=== PATIENT | male | born 1945 | race Caucasian/White ===

== ENCOUNTER 2018-07-02 09:06 | Day surgery (SDC) | payer MEDICARE, SELFPAY ==
[2018-07-02] VITALS (7 sets, daily range): BP systolic 105–142; BP diastolic 58–75; PULSE 57–70; RESP 16; TEMP 36.3–36.5; O2SAT 94–100; BMI 37.8
--- NOTE | 2018-07-02 | COLBX_PTH ---
PATIENT: KERRY VALDES LOC: EN U#:[id number] AGE/SX: 73/M ROOM: RE07/02/[address]: Dr. Pj Bojorquez MD : 1945 BED: DIS: 07/02/2018 SPEC #: [id number] RECD: 07/02/18 13:55 STATUS: KYLE SUBHA #: [id number] YO: 07/02/18 00:[address]: Pj Bojorquez DEPT: SURGICAL PATHOLOGY RECD BY: Thad Brown ENTERED: 07/02/18 13:55 SP TYPE: COLON BX OT DR: Dr. Andre Bojorquez III, MD Tissues: Transverse colon Procedures: Surgery Specimen Level IV HEADER OPERATION: Colonoscopy PRE-OP DIAGNOSIS: Screening, personal history colon polyps TISSUE SUBMITTED: Biopsy of proximal transverse polyp MICROSCOPIC DIAGNOSIS Proximal transverse colon polyp, biopsy: Fragments of tubular adenoma. SJ:debra 07/03/18 MICROSCOPIC DESCRIPTION Slides are reviewed. GROSS DESCRIPTION Received in fixative is one container labeled with the patient's name and designated biopsy of proximal transverse polyp. The specimen consists of two irregular fragments of light luna soft tissue that in aggregate measure 0.8 x 0.4 x 0.1 cm. The specimen is totally submitted in one cassette. / SJ:rg 07/02/18 TC:1 CPT: 38119
--- NOTE | 2018-07-02 09:56 | PCM.HP.STD ---
Problem List (1) Personal history of colonic polyps Status: Acute History of Present Illness Date of Admission: 07/02/18 The patient is a 73 year old M who presents today via our open access program. His last colonoscopy was 1 year ago. He has had several colonoscopy on annual basis. Claims on his first colonoscopy had upwards towards 15 polyps. On his most recent colonoscopy a year ago approximately 5 polyps. He denies bright red blood per rectum or melena. He is fatigued with the bowel prep and not sure he wants to continue to pursue this evaluation in the future. He is willing to proceed today. He states that his abdomen is growling but that he has not had any acute abdominal pain. He denies any chest pain or shortness of breath Past Medical History Past Medical History (Chronic Problems): Chronic Problems Hypertension (Chronic) Allergies No Known Allergies Allergy (Verified 07/01/18 08:56) Home Medications: Ambulatory Orders Medication Instructions Recorded Acetaminophen [Tylenol] 325 mg PO PRN PRN 06/26/17 Amlodipine [Norvasc] 5 mg PO DAILY 06/26/17 Hydrochlorothiazide 12.5 mg PO DAILY 06/26/17 Meclizine HCl [Antivert] 12.5 mg PO DAILY PRN PRN 06/26/17 Ranitidine [Zantac] 150 mg PO TID PRN 06/26/17 Carvedilol [Coreg] 3.125 mg PO BID 07/01/18 Naproxen [Naprosyn] 500 mg PO DAILY PRN PRN 07/01/18 Surgical History: noncontributory Psychiatric History: No pertinent psych hx Smoking Status: Former smoker - *Family History Maternal History Items: No pertinent history Paternal History Items: No pertinent history Review of Systems Constitutional: Denies: Anorexia HEENT: Denies: Difficulty Swallowing Cardiovascular: Denies: Chest Pain Respiratory: Denies: Cough Gastrointestinal: Denies: Abdominal Pain Musculoskeletal: Denies: Arm Pain VTE Information - Inpt Only VTE Present on Admission: No Patient Problems: Active and Suspected Problems Personal history of colonic polyps (Acute) - Physical Exam General: Alert, Oriented x3, Cooperative, No apparent distress Oral: Moist Mucosa Neck: Supple Lungs: Clear to auscultation Cardiovascular: Regular rate, Regular Rhythm Abdomen: Bowel Sounds Present Extremities: No Calf Tenderness Vital Signs Temp Pulse Resp BP Pulse Ox 97.7 F L 70 16 133/64 H 95 07/02/18 09:24 07/02/18 09:24 07/02/18 09:24 07/02/18 09:24 07/02/18 09:24 Oxygen Delivery Method Room Air Weight: 255 lb 15.307 oz Body Mass Index (BMI) 37.8 Assessment/Plan All Active Problems Personal history of colonic polyps (Acute) Near syncope (Acute) Hypokalemia (Acute) Acute kidney injury (Acute) Orthostatic hypotension (Acute) 73-year-old gentleman with personal history of multiple colon polyps. He presents today for colonoscopy with possible biopsy or polypectomy is indicated. He has had an opportunity to ask and have questions answered. We will proceed at his discretion. Primary care physician is Dr. Andre Bojorquez, [facility] Pj Bojorquez M.D., F.A.C.S.
--- NOTE | 2018-07-02 10:33 | OP.ENDO_ITS ---
Patient Name: Jc Warner Procedure Date: 07/02/2018 9:51 AM Date of : 1945 Age: 73 Procedure: Colonoscopy Indications: High risk colon cancer surveillance: Personal history of colonic polyps Providers: Pj Bojorquez MD Referring MD: Pj Bojorquez MD Medicines: See the Anesthesia note for documentation of the administered medications Patient Profile: Last Colonoscopy: 2016. Complications: No immediate complications. Procedure: Pre-Anesthesia Assessment: - Prior to the procedure, a History and Physical was performed, and patient medications and allergies were reviewed. The patient's tolerance of previous anesthesia was also reviewed. The risks and benefits of the procedure and the sedation options and risks were discussed with the patient. All questions were answered, and informed consent was obtained. Prior Anticoagulants: The patient has taken no previous anticoagulant or antiplatelet agents. ASA Grade Assessment: II - A patient with mild systemic disease. After reviewing the risks and benefits, the patient was deemed in satisfactory condition to undergo the procedure. After I obtained informed consent, the scope was passed under direct vision. Throughout the procedure, the patient's blood pressure, pulse, and oxygen saturations were monitored continuously. The colonoscope was introduced through the anus and advanced to the cecum, identified by appendiceal orifice and ileocecal valve. The colonoscopy was performed without difficulty. The patient tolerated the procedure well. The quality of the bowel preparation was fair. Scope In: 10:05:25 AM Scope Withdrawal Time 0 hours 14 minutes 33 seconds Scope Out: 10:26:48 AM Total Procedure Duration Time 0 hours 21 minutes 23 seconds Findings: The digital rectal exam findings include non-thrombosed external hemorrhoids, non-thrombosed internal hemorrhoids, internal hemorrhoids that prolapse with straining, but spontaneously regress to the resting position (Grade II) and enlarged prostate. Pertinent negatives include Lax anal tone. Many diverticula were found in the entire colon. A 8 mm polyp was found in the proximal transverse colon. The polyp was sessile. The polyp was removed with a cold biopsy forceps. Resection and retrieval were complete. Impression: - Preparation of the colon was fair. - Non-thrombosed external hemorrhoids, non-thrombosed internal hemorrhoids, internal hemorrhoids that prolapse with straining, but spontaneously regress to the resting position (Grade II) and enlarged prostate found on digital rectal exam. - Diverticulosis in the entire examined colon. - One 8 mm polyp in the proximal transverse colon, removed with a cold biopsy forceps. Resected and retrieved. Recommendation: - Repeat colonoscopy in 3 years for surveillance. - Telephone my office for pathology results in 1 week. - Continue present medications. Procedure Code(s): --- Professional --- 99867, Colonoscopy, flexible; with biopsy, single or multiple CPT copyright 2017 [employer]. All rights reserved. The codes documented in this report are preliminary and upon event sales assistant review may be revised to meet current compliance requirements. Pj Bojorquez MD 07/02/2018 10:33:10 AM This report has been signed electronically. Number of Addenda: 0 Note Initiated On: 07/02/2018 9:51 AM
== END 2018-07-02 11:14 | disposition home or self-care (01) ==
LOC: EN 09:07 → AC 09:09
PROVIDERS: Family Provider Family Medicine; PCP Family Medicine; Visit Provider Surgery
PROC: 0DJD8ZZ Inspection of Lower Intestinal Tract, Via Natural or Artificial Opening Endoscopic (ICD-10-PCS; CPT 45378; principal; 2018-07-02 10:10)
DX: D12.3 Benign neoplasm of transverse colon (principal); N40.0 Benign prostatic hyperplasia without lower urinary tract symptoms; K57.30 Diverticulosis of large intestine without perforation or abscess without bleeding; K64.1 Second degree hemorrhoids; K64.4 Residual hemorrhoidal skin tags; K21.9 Gastro-esophageal reflux disease without esophagitis; Z86.010 Personal history of colon polyps; I10 Essential (primary) hypertension; Z79.899 Other long term (current) drug therapy; Z87.891 Personal history of nicotine dependence
CPT/HCPCS: 45380; 88305; J7120

== ENCOUNTER 2021-04-21 07:50 | Emergency (ER) | payer MEDICARE, SELFPAY ==
[2021-04-21 07:52] VITALS: BP 162/68; PULSE 57; RESP 14; TEMP 36.4; O2SAT 100; BMI 35.2
--- NOTE | 2021-04-21 08:21 | CT_ITS ---
STUDY: CT LUMBAR SPINE WITHOUT CONTRAST REASON FOR EXAM: Male, 75 years old. Back pain RADIATION DOSAGE (If Supplied By Facility): CTDIvol = ( 18.49 ) mGy, DLP = ( 923.77 ) mGycm TECHNIQUE: The patient was scanned in a multi detector CT scanner. High resolution transaxial imaging was performed. Images were obtained from L1 to S1 vertebrae. Sagittal and coronal images were reconstructed. Individualized dose optimization techniques were used for this CT. COMPARISON: None FINDINGS: Normal lumbar lordosis. There is no substantial scoliosis. Normal vertebrae of the lumbar spine. L1-2: Normal endplates. Normal disc height and morphology. Normal bilateral facet joints. Normal central canal and bilateral lateral recesses. Normal bilateral intervertebral neural foramina. L2-3: Schmorl''s node is seen in the superior endplate of the L2 vertebrae. Mild degree of disc space narrowing. Mild degree of diffuse posterior disc bulge causing mild degree of bilateral neural foraminal stenosis. Mild degree of facet joint osteoarthritis and hypertrophy. L3-4: Mild degree of anterior spondylosis. Mild diffuse posterior disc bulge. Facet joint hypertrophy. Mild degree of bilateral neural foraminal stenosis. L4-5: Mild degree of disc space narrowing. Diffuse posterior disc bulge slightly worse on the right side of the midline. This causes mild deformity of the right thecal sac. Facet joint hypertrophy and mild degree of bilateral neural foraminal stenosis. L5-S1: Mild degree of disc space narrowing. Atherosclerotic plaque formation of the abdominal aorta and major visceral branches. CT/Spine Lumbar without Contrast IMPRESSION: Multilevel degenerative changes, as described above. Electronically Signed: Bhaskar Dyson MD at 9:20 EDT , Service support ,
--- NOTE | 2021-04-21 08:22 | CT_ITS ---
STUDY: CT ABDOMEN AND PELVIS WITHOUT CONTRAST REASON FOR EXAM: Male, 75 years old. Flank pain RADIATION DOSAGE (If Supplied By Facility): CTDIvol = ( 18.49 ) mGy, DLP = ( 923.77 ) mGycm TECHNIQUE: Transaxial images were obtained from the dome of the diaphragm to the symphysis pubis without oral contrast, and without intravenous contrast. Sagittal and coronal images were reconstructed. Individualized dose optimization techniques were used for this CT. COMPARISON: None. FINDINGS: 1.5 mm noncalcified nodule in the anterior lateral aspect of the right lower lobe abutting the right major fissure. This is seen in the axial image #10. Coronary artery calcification. Normal liver. Normal gallbladder and extrahepatic biliary system. Normal spleen. Normal pancreas. Normal bilateral adrenal glands. There is a 2 cm x 2.8 cm cyst in the lateral upper aspect of the right kidney. Punctate calculus in the lower pole calyx of the right kidney. Normal left kidney. Normal visualized stomach. Normal small intestine. There are multiple colonic diverticula consistent with diverticulosis. The appendix is visualized and appears normal. There is diffuse atherosclerotic calcification of the abdominal aorta and its major visceral branches, without a demonstrated aneurysm. Stenotic plaque formation at the origin of the superior mesenteric artery as well as both renal arteries. Normal inferior vena cava. There is borderline retroperitoneal lymphadenopathy with enlarged nodes no greater than 10mm in the short axis diameter. Normal urinary bladder. Small bilateral inguinal hernias containing fat more prominent on the left side. There are mild degenerative changes of the visualized lumbar spine. CT/Abdomen/Pelvis without Cont IMPRESSION: Right renal cyst. Extensive atherosclerotic plaque formation of the aorta and major vessels. Bilateral inguinal hernias worse on the left side. Electronically Signed: Bhaskar Dyson MD at 9:16 EDT , Service support ,
--- NOTE | 2021-04-21 08:30 | EX.ED.DYSGE1 ---
HPI History of Present Illness Chief Complaint: Back Narrative Narrative: Patient presents with right leg pain and buttock pain, he was recently seen at an urgent care and was diagnosed with sciatica but was not given any medications. He can ambulate but it is quite difficult. He has no abdominal pain but he has some flank pain. He has no dysuria hematuria or testicular pain. He tells me the pain is more intense when he ambulates or tries to ambulate [facility] Medical History (Updated 04/21/21 @ 10:[address] Richmond Alejo MD) Back pain Hypertension Home Medications Ranitidine [Zantac] 150 mg PO TID PRN 06/26/17 [History Last Taken 06/29/17 06:15 150 MG] acetaminophen [Tylenol] 325 mg PO PRN PRN 06/26/17 [History Last Taken Unknown] amlodipine 5 mg PO DAILY 06/26/17 [History Last Taken 07/02/18 08:00] hydrochlorothiazide 12.5 mg PO DAILY 06/26/17 [History Last Taken Unknown] meclizine 12.5 mg PO DAILY PRN PRN 06/26/17 [History Last Taken Unknown] carvedilol 3.125 mg PO BID 07/01/18 [History Last Taken Unknown] naproxen 500 mg PO DAILY PRN PRN 07/01/18 [History Last Taken Unknown] oxycodone-acetaminophen [Percocet] 1 tab PO Q8H PRN 3 Days #12 tab 04/21/21 [Rx Last Taken Unknown] prednisone 60 mg PO DAILY #15 tab 04/21/21 [Rx Last Taken Unknown] Allergy/AdvReac Type Severity Reaction Status Date / Time No Known Allergies Allergy Verified 04/21/21 07:56 Social History Smoking Status: Never smoker ROS ROS ED ROS Narrative Past medical history: Reviewed, includes hypertension, history of renal insufficiency, otherwise unremarkable. Medications: Reviewed Social history: Noncontributory Review of systems: All systems negative except as indicated General: No fever Eyes: No visual changes ENT: No upper airway congestion, normal voice Neck: No neck pain Cardiovascular: No chest pain Respiratory: No shortness of breath or cough Gastrointestinal: No abdominal pain, nausea vomiting or diarrhea Genitourinary: No dysuria, no urinary retention symptoms Back: Back and buttock pain as in HPI Musculoskeletal: The pain does radiate to the right posterior leg. Skin: No rash Neurological: No memory loss, confusion or any focal weakness Psych: No recent behavioral changes Hematologic: No easy bleeding or easy bruising EXAM Physical Exam Const Vital Signs: 04/21/21 07:52 Temperature 97.6 F L Temperature Source Temporal Pulse Rate 57 L Respiratory Rate 14 Blood Pressure 162/68 H Blood Pressure Mean 99 Pulse Ox 100 Oxygen Delivery Method Room Air MDM MDM MDM Narrative Medical decision making narrative: Patient has a normal work-up, he does have DJD but his symptoms are mostly sciatica. I given analgesia and he improved. I believe it is reasonable to start him on steroids and given analgesia for home. He wants to be discharged. If anything changes he is to return. Lab Data Labs: Laboratory Results - last 24 hr 04/21/21 04/21/21 04/21/21 07:45 07:45 08:39 WBC 5.9 RBC 3.69 L Hgb 11.7 L Hct 35.4 L MCV 95.9 H MCH 31.7 MCHC 33.1 RDW Std Deviation 47.7 H RDW Coeff of Sophie 13.4 Plt Count 210 MPV 9.6 Immature Gran % (Auto) 0.200 Neut % (Auto) 59.5 Lymph % (Auto) 26.5 [place] % (Auto) 8.2 Eos % (Auto) 4.9 Baso % (Auto) 0.7 Absolute Neuts (auto) 3.5 Absolute Lymphs (auto) 1.55 Nucleated RBC % 0 Sodium 141 Potassium 4.1 Chloride 109 H Carbon Dioxide 29.0 Anion Gap 3 L BUN 33 H Creatinine 1.49 H Estim Creat Clear Calc 42.18 Est GFR (MDRD) Af Amer 59 L Est GFR (MDRD) Non-Af 49 L BUN/Creatinine Ratio 22.1 H Glucose 121 H Calcium 8.2 L Total Bilirubin 0.30 AST 16 ALT 26 Alkaline Phosphatase 78 Total Protein 7.0 Albumin 3.5 Globulin 3.5 Albumin/Globulin Ratio 1.0 Urine Color Yellow Urine Clarity Clear Urine pH 6.5 Ur Specific [place] 1.015 Urine Protein 15 H Urine Glucose (UA) Normal Urine Ketones Negative Urine Occult Blood Negative Urine Nitrite Negative Urine Bilirubin Negative Urine Urobilinogen Normal Ur Leukocyte Esterase Negative Urine RBC 0 SEEN Urine WBC 0 SEEN Ur Squamous Epith Cells 0 SEEN Urine Bacteria RARE Urine Mucus 0 SEEN Radiography Diagnostic Testing: Radiology Impression Lumbar Spine CT 04/21/21 08:21 IMPRESSION: Multilevel degenerative changes, as described above. Electronically Signed: Bhaskar Dyson MD at 9:20 EDT , Service support , Abdomen/Pelvis CT 04/21/21 08:22 IMPRESSION: Right renal cyst. Extensive atherosclerotic plaque formation of the aorta and major vessels. Bilateral inguinal hernias worse on the left side. Electronically Signed: Bhaskar Dyson MD at 9:16 EDT , Service support , Discharge Plan Triage Chief Complaint: Back ED Provider: Richmond Alejo Dx/Rx/DC Orders Clinical Impression: Sciatica Instructions: ED Sciatica Prescriptions: New oxycodone-acetaminophen [Percocet] 5-325 mg tablet 1 tab PO Q8H PRN (Reason: pain) 3 Days Qty: 12 RF: 0 prednisone 20 mg tablet 60 mg PO DAILY Qty: 15 RF: 0 No Action acetaminophen [Tylenol] 325 MG tablet 325 mg PO PRN PRN (Reason: Pain) RF: 0 meclizine 12.5 MG tablet 12.5 mg PO DAILY PRN PRN (Reason: Dizziness) RF: 0 amlodipine 5 MG tablet 5 mg PO DAILY RF: 0 hydrochlorothiazide 12.5 MG capsule 12.5 mg PO DAILY RF: 0 Ranitidine [Zantac] 150 MG tablet 150 mg PO TID PRN (Reason: GERD) RF: 0 carvedilol 3.125 MG tablet 3.125 mg PO BID RF: 0 naproxen 500 MG tablet 500 mg PO DAILY PRN PRN (Reason: Pain) RF: 0 Primary Care Provider: Jasson England Referrals: Jasson England MD [Primary Care Provider] - 3-5 Days Disposition Disposition: Home, Self Care
[2021-04-21] MEDS: Morphine 4 MG/ML Syringe IV (08:39)
[2021-04-21] MEDS: Ondansetron 4 MG/2 ML Vial IV (08:39)
[2021-04-21 08:43] LABS: Absolute Lymphocyte Count 1.55 X10^3/uL (0.83-4.51); Absolute Neutrophil Count 3.5 X10^3/uL (2.0-7.7); Basophil# 0.04 X10^3/uL; Basophil% 0.7 % (0-1); Eosinophil# 0.29 X10^3/uL; Eosinophils% 4.9 % (0-5); Hematocrit 35.4 % (40-54); Hemoglobin 11.7 g/dL (13.0-16.5); Lymphocyte # 1.55 X10^3/ul (0.83-4.51); Lymphocyte % 26.5 % (19-41); Mean Corp Hgb Conc 33.1 g/dL (32-36); Mean Corpuscular Hgb 31.7 pg (27.0-32.0); Mean Corpuscular Volume 95.9 fL (80-94); Mean Platelet Vol. 9.6 fl (6.2-12.0); Monocyte# 0.48 X10^3/uL; Monocyte% 8.2 % (0-10); NRBC Flagged by Analyzer 0 % (0-5); Neutrophil # 3.49 X10^3/uL (2.7-7.7); Neutrophil % 59.5 % (47-70); Platelet Count 210 K/mm3 (150-450); RBC Distribution Width CV 13.4 % (11.6-14.6); RBC Distribution Width SD 47.7 fl (35.1-43.9); Red Blood Count 3.69 M/mm3 (4.6-6.2); White Blood Count 5.9 K/mm3 (4.4-11.0)
[2021-04-21 08:46] LABS: Mucous, Urine 0 SEEN /hpf (<or=2+); Red Blood Cells-Urine 0 SEEN /hpf (0-5); Squamous Epithelial Cells - UA 0 SEEN /hpf (0-5); White Blood Cells 0 SEEN /hpf (0-5)
[2021-04-21 08:47] LABS: Color, Urine Yellow (Yellow); Glucose, Dipstick Normal (Normal); Ketone-Dipstick Negative (Negative); Leukocyte Esterase-Dipstick Negative /ul (Negative); Nitrite-Dipstick Negative (Negative); Occult Blood-Urine Negative /ul (Negative); Protein-Dipstick 15 mg/dl (Negative); Specific Gravity, Urine 1.015 (1.002-1.030); Urine Bilirubin Dipstick Negative (Negative); Urine Clarity Clear (Clear); Urine Urobilinogen Normal (Normal); Urine pH 6.5 (5.0 - 8.0)
[2021-04-21 08:53] LABS: AST(SGOT) 16 U/L (15-37); Alanine Aminotransfer ALT/SGPT 26 U/L (16-61); Albumin, Serum 3.5 g/dL (3.2-5.0); Alkaline Phosphatase 78 U/L (45-117); Anion Gap 3 (5-15); BUN 33 mg/dL (7-18); BUN/Creat Ratio 22.1 RATIO (10-20); Calcium,Total 8.2 mg/dL (8.5-10.1); Chloride 109 mmol/L (98-107); Creatinine, Serum 1.49 mg/dL (0.70-1.30); EST Glomerular Filtration Rate 49 mL/min (>60); Est Glom Filt Rate - Afr Amer 59 mL/min (>60); Estimated Creatinine Clearance 42.18 ml/min; Globulin 3.5 g/dL (2.2-4.2); Glucose 121 mg/dL (74-106); Potassium 4.1 mmol/L (3.5-5.1); Sodium Level 141 mmol/L (136-145)
[2021-04-21 09:03] LABS: Bacteria RARE /hpf (None Seen)
[2021-04-21 10:40] VITALS: BP 187/71; PULSE 55; RESP 12; O2SAT 98
== END 2021-04-21 11:04 | disposition home or self-care (01) ==
PROVIDERS: Emergency Provider Emergency Medicine; PCP Family Medicine
DX: M54.30 Sciatica, unspecified side (principal)
CPT/HCPCS: 72131; 74176; 80053; 81001; 85025; 96374; 96375; 99285; A4216; J2405

== ENCOUNTER 2021-05-04 13:46 | Inpatient (IN) | payer MEDICARE, SELFPAY ==
[2021-05-04] VITALS (16 sets, daily range): BP systolic 111–204; BP diastolic 54–106; PULSE 60–96; RESP 13–26; TEMP 36.6–36.9; O2SAT 95–100; BMI 35.4; BMI 33.5
--- NOTE | 2021-05-04 13:59 | EKG12_ITS ---
Test Reason : ALT LOC Blood Pressure : / mmHG Vent. Rate : 063 BPM Atrial Rate : 063 BPM P-R Int : 274 ms QRS Dur : 096 ms QT Int : 418 ms P-R-T Axes : 081 004 048 degrees QTc Int : 427 ms Sinus rhythm with 1st degree A-V block Nonspecific ST abnormality Abnormal ECG Confirmed by PRITI DUMONT, RASHEED ([id number]), editor magazine VAUGHN KENT ([id number]) on 05/09/2021 9:47:40 AM Referred By: CHENG Confirmed By:RASHEED MARCOS MD
--- NOTE | 2021-05-04 14:01 | CT_ITS ---
STUDY: CT BRAIN WITHOUT CONTRAST REASON FOR EXAM: Male, 75 years old. Syncope RADIATION DOSAGE (If Supplied By Facility): CTDIvol = ( 38.43 ) mGy, DLP = ( 727.10 ) mGycm TECHNIQUE: Transaxial CT imaging of the brain was performed without administration of intravenous contrast material. Individualized dose optimization techniques were used for this CT. COMPARISON: No relevant priors. FINDINGS: Normal soft tissue structures. Normal calvarium. Normal size ventricles and extra-axial spaces for the patient''s age. Normal white matter tracts of the cerebral hemispheres. Normal basal ganglia and thalami. Normal brainstem. Normal cerebellum. There is no intracranial hemorrhage. There are no findings of an acute ischemic infarction. Normal visualized paranasal sinuses. CT/Brain/Head without Contrast IMPRESSION: Normal unenhanced CT scan of the brain. Electronically Signed: Diogo Hendricks MD at 14:53 EDT Tel , Service support ,
[2021-05-04 14:10] LABS: Absolute Lymphocyte Count 1.78 X10^3/uL (0.83-4.51); Absolute Neutrophil Count 8.3 X10^3/uL (2.0-7.7); Basophil# 0.02 X10^3/uL; Basophil% 0.2 % (0-1); Eosinophil# 0.13 X10^3/uL; Eosinophils% 1.2 % (0-5); Hematocrit 38.1 % (40-54); Hemoglobin 12.3 g/dL (13.0-16.5); Lymphocyte # 1.78 X10^3/ul (0.83-4.51); Lymphocyte % 16.3 % (19-41); Mean Corp Hgb Conc 32.3 g/dL (32-36); Mean Corpuscular Hgb 31.5 pg (27.0-32.0); Mean Corpuscular Volume 97.7 fL (80-94); Mean Platelet Vol. 9.7 fl (6.2-12.0); Monocyte% 6.4 % (0-10); NRBC Flagged by Analyzer 0 % (0-5); Neutrophil # 8.26 X10^3/uL (2.7-7.7); Neutrophil % 75.4 % (47-70); Platelet Count 193 K/mm3 (150-450); RBC Distribution Width CV 13.6 % (11.6-14.6); RBC Distribution Width SD 48.4 fl (35.1-43.9)
[2021-05-04] MEDS: Acetaminophen 500 MG Tablet 1000 MG PO (14:17)
[2021-05-04 14:25] LABS: ALB/GLOB Ratio 1.1 RATIO (0.9-2.4); AST(SGOT) 16 U/L (15-37); Alanine Aminotransfer ALT/SGPT 31 U/L (16-61); Albumin, Serum 3.7 g/dL (3.2-5.0); Alkaline Phosphatase 62 U/L (45-117); Anion Gap 7 (5-15); BUN 31 mg/dL (7-18); BUN/Creat Ratio 21.5 RATIO (10-20); Calcium,Total 8.7 mg/dL (8.5-10.1); Chloride 102 mmol/L (98-107); Creatinine, Serum 1.44 mg/dL (0.70-1.30); EST Glomerular Filtration Rate 51 mL/min (>60); Est Glom Filt Rate - Afr Amer 61 mL/min (>60); Estimated Creatinine Clearance 43.64 ml/min; Globulin 3.4 g/dL (2.2-4.2); Glucose 101 mg/dL (74-106); Potassium 4.2 mmol/L (3.5-5.1); Protein, Total 7.1 g/dL (6.4-8.2); Sodium Level 136 mmol/L (136-145); Troponin-I HS 9.3 pg/mL (3.0-78.5)
[2021-05-04 15:22] LABS: Bacteria 0 SEEN /hpf (None Seen); Mucous, Urine 0 SEEN /hpf (<or=2+); Red Blood Cells-Urine 0 SEEN /hpf (0-5); Squamous Epithelial Cells - UA 0 SEEN /hpf (0-5); White Blood Cells 0 SEEN /hpf (0-5)
--- NOTE | 2021-05-04 15:25 | EX.ED.DYSGE1 ---
HPI History of Present Illness Chief Complaint: Alt LOC Informant: patient and EMS Onset/Context/Timing Onset: Today Context: Sudden Onset Timing: Intermittent Quality: Weakness, lightheaded Location: Generalized Worsened by: Nothing Relieved by: Nothing Narrative Narrative: Patient presents with altered mental status that occurred today. Patient remembers sitting on the chair and then remembers people standing over him. EMS reports that the family started CPR because the patient stopped breathing. Upon EMS arrival, they were able to palpate a pulse so CPR was discontinued. Patient denies any lightheadedness or dizziness. Patient denies any chest pain or shortness of breath. Family is concerned that the patient may be taking too many of his Flexeril and opiate analgesics. Patient has a history of sciatica. Patient denies any bowel or bladder changes. Patient denies any saddle anesthesia. Upon further discussion with the family after they arrived in the emergency department, they reported that the patient has been having some visual hallucinations where he is seeing people in his house. Family states that the patient's lives in [place] [facility] at the present time but her medications are still at home. Family does not know if the patient has been taking any of his 's medications. [facility] Medical History Back pain Hypertension Home Medications amlodipine 10 mg PO DAILY 06/26/17 [History Last Taken 07/02/18 08:00] hydrochlorothiazide 12.5 mg PO DAILY 06/26/17 [History Last Taken Unknown] carvedilol 9.375 mg PO BID 07/01/18 [History Last Taken Unknown] oxycodone-acetaminophen [Percocet] 1 tab PO Q8H PRN 3 Days #12 tab 04/21/21 [Rx Last Taken Unknown] atorvastatin 10 mg PO QHS 05/04/21 [History Last Taken Unknown] cyclobenzaprine 10 mg PO TID PRN 05/04/21 [History Last Taken Unknown] prednisone See Taper PO DAILY 05/04/21 [History Last Taken Unknown] Allergy/AdvReac Type Severity Reaction Status Date / Time No Known Allergies Allergy Verified 05/04/21 13:52 Social History Smoking Status: Never smoker ROS ROS ED Constitutional Constitutional ED: Denies chills or fever(s) Eyes Eyes: Denies blurry vision or change in vision ENT ENT ED: Denies rhinorrhea or sore throat Cardiovascular Cardiovascular: Denies chest pain or palpitations Respiratory/Chest Respiratory/Chest: Denies cough or dyspnea Gastrointestinal Gastrointestinal: Denies nausea or vomiting Genitourinary Genitourinary ED: Denies dysuria or hematuria Musculoskeletal Musculoskeletal: Reports back pain; Denies neck pain Integumentary Denies abscess or rash Neurologic Neurologic: Denies headache(s) or weakness Allergic/Immunologic Allergic/Immunologic ED: Denies mouth swelling or urticaria EXAM Physical Exam Const Vital Signs: 05/04/21 13:47 05/04/21 13:52 05/04/21 15:14 Temperature 97.9 F 97.9 F Temperature Source Temporal Temporal Pulse Rate 61 61 66 Respiratory Rate 20 H 20 H 19 H Blood Pressure 185/73 H 185/73 H 190/68 H Blood Pressure Mean 110 110 108 Pulse Ox 98 98 Oxygen Delivery Method Room Air Room Air Positive well nourished and well developed General Appearance ED: well developed HEENT Reports moist mucous membranes Neck supple and no JVD Resp normal respiratory effort and clear to auscultation bilaterally Cardio regular rate, regular rhythm and no murmurs GI normal to inspection, nondistended, normoactive bowel sounds and non-tender Palpation: soft Extremity normal to inspection General Extremety ED: Negative for edema or tenderness General Extremity: Negative for edema Neuro oriented x3, CN's II-XII intact bilaterally and no sensory deficits noted Sensorium / Orientation: alert Motor Exam: strength 5/5 throughout Psych mental status grossly normal Skin no rashes or lesions noted MDM MDM MDM Narrative Medical decision making narrative: CBC and comprehensive metabolic profile were obtained. Creatinine was slightly elevated at 1.44 and BUN was 31. The remainder was within normal limits. High-sensitivity troponin was normal at 9.3. Urinalysis does not show any evidence of urinary tract infection. EKG was obtained. On my interpretation, there is a normal sinus rhythm with a first-degree AV block with a rate of 63. There are no acute ST or T wave changes. QRS interval and QT interval were normal. [place] was normal. CT scan of the brain was obtained. There is no acute intracranial abnormality noted. This was interpreted by the radiologist and reviewed by myself. Case was discussed with the hospitalist. He will admit the patient to ICU. Patient and family understand and are agreeable with the plan. All questions were answered. Lab Data Attestation: I reviewed the patient's lab results. Labs: Laboratory Results - last 24 hr 05/04/21 05/04/21 05/04/21 13:55 13:55 15:05 WBC 11.0 RBC 3.90 L Hgb 12.3 L Hct 38.1 L MCV 97.7 H MCH 31.5 MCHC 32.3 RDW Std Deviation 48.4 H RDW Coeff of Sophie 13.6 Plt Count 193 MPV 9.7 Immature Gran % (Auto) 0.500 Neut % (Auto) 75.4 H Lymph % (Auto) 16.3 L [place] % (Auto) 6.4 Eos % (Auto) 1.2 Baso % (Auto) 0.2 Absolute Neuts (auto) 8.3 H Absolute Lymphs (auto) 1.78 Nucleated RBC % 0 Sodium 136 Potassium 4.2 Chloride 102 Carbon Dioxide 27.0 Anion Gap 7 BUN 31 H Creatinine 1.44 H Estim Creat Clear Calc 43.64 Est GFR (MDRD) Af Amer 61 Est GFR (MDRD) Non-Af 51 L BUN/Creatinine Ratio 21.5 H Glucose 101 Calcium 8.7 Total Bilirubin 0.70 AST 16 ALT 31 Alkaline Phosphatase 62 Troponin I High Sens 9.3 Total Protein 7.1 Albumin 3.7 Globulin 3.4 Albumin/Globulin Ratio 1.1 Urine Color Yellow Urine Clarity Clear Urine pH 6.5 Ur Specific [place] 1.010 Urine Protein Negative Urine Glucose (UA) Normal Urine Ketones Negative Urine Occult Blood Negative Urine Nitrite Negative Urine Bilirubin Negative Urine Urobilinogen Normal Ur Leukocyte Esterase Negative Urine RBC 0 SEEN Urine WBC 0 SEEN Ur Squamous Epith Cells 0 SEEN Urine Bacteria 0 SEEN Urine Mucus 0 SEEN Radiography Diagnostic Testing: Radiology Impression Brain CT 05/04/21 14:01 IMPRESSION: Normal unenhanced CT scan of the brain. Electronically Signed: Diogo Hendricks MD at 14:53 EDT Tel , Service support , EKG Initial EKG: Attestation: I personally reviewed and interpreted this EKG as follows: Interpretation: Sinus Rhythm (With first-degree AV block with a rate of 63) and No Acute Injury Pattern Prior EKG tracings: not available for review Treatment and Re-Evaluation Vital Sign Attestation:: Vital signs are reviewed prior to admission. They are stable. Discharge Plan Dx/Rx/DC Orders Clinical Impression: Altered mental status Disposition Disposition: Acute Care Hospital [facility]
[2021-05-04 15:33] LABS: Color, Urine Yellow (Yellow); Glucose, Dipstick Normal (Normal); Ketone-Dipstick Negative (Negative); Leukocyte Esterase-Dipstick Negative /ul (Negative); Nitrite-Dipstick Negative (Negative); Occult Blood-Urine Negative /ul (Negative); Protein-Dipstick Negative (Negative); Urine Bilirubin Dipstick Negative (Negative); Urine Clarity Clear (Clear); Urine Urobilinogen Normal (Normal); Urine pH 6.5 (5.0 - 8.0)
--- NOTE | 2021-05-04 17:29 | PCM.HP.STD ---
HPI - General General Date of Admission: 05/04/21 HPI Narrative KERRY VALDES, is a 75 M who was brought by EMS after they found family members doing CPR on unconscious patient. As per family he was not breathing and the started CPR when the patient woke up. EMS found a pulse. Patient is confused, disoriented and has garbled and incoherent speech therefore history taken from the granddaughter, Lori. As per daughter, he was living alone after his went to half-way. He has been acting not normal, confused since yesterday. Patient further said he took some pills most probably his 's pill which includes prednisone, oxycodone, Flexeril and antihypertensive medication; amount, dose and timing unclear. In the ED, patient still confused but little better. His blood pressure is elevated 190/68, respiratory rate 19, pulse 66/min. Twelve-lead EKG shows sinus rhythm 63 bpm, first-degree AV block, nonspecific ST-T abnormality. EMS EKG similar normal sinus rhythm first-degree block. Prior EKG of October 2014 sinus bradycardia with first-degree block at [address] head does not show acute change. There is no chest x-ray, ER physician ordered the chest x-ray. [facility] Medical History Back pain Hypertension Home Medications Ranitidine [Zantac] 150 mg PO TID PRN 06/26/17 [History Last Taken 06/29/17 06:15 150 MG] acetaminophen [Tylenol] 325 mg PO PRN PRN 06/26/17 [History Last Taken Unknown] amlodipine 5 mg PO DAILY 06/26/17 [History Last Taken 07/02/18 08:00] hydrochlorothiazide 12.5 mg PO DAILY 06/26/17 [History Last Taken Unknown] meclizine 12.5 mg PO DAILY PRN PRN 06/26/17 [History Last Taken Unknown] carvedilol 3.125 mg PO BID 07/01/18 [History Last Taken Unknown] naproxen 500 mg PO DAILY PRN PRN 07/01/18 [History Last Taken Unknown] oxycodone-acetaminophen [Percocet] 1 tab PO Q8H PRN 3 Days #12 tab 04/21/21 [Rx Last Taken Unknown] prednisone 60 mg PO DAILY #15 tab 04/21/21 [Rx Last Taken Unknown] Allergy/AdvReac Type Severity Reaction Status Date / Time No Known Allergies Allergy Verified 05/04/21 13:52 Social History Smoking Status: Never smoker ROS ROS Narrative 12 system ROS are unobtainable as patient is confused, disoriented and incoherent speech As per granddaughter, he did not had vomiting, diarrhea. Patient himself denies chest pain or shortness of breath Vital Signs Vital Signs Vital Signs: 05/04/21 13:47 05/04/21 13:52 05/04/21 15:14 Temperature 97.9 F 97.9 F Temperature Source Temporal Temporal Pulse Rate 61 61 66 Respiratory Rate 20 H 20 H 19 H Blood Pressure 185/73 H 185/73 H 190/68 H Blood Pressure Mean 110 110 108 Pulse Ox 98 98 Oxygen Delivery Method Room Air Room Air 05/04/21 17:20 Temperature 98.2 F Temperature Source Temporal Pulse Rate 64 Respiratory Rate 21 H Blood Pressure 171/69 H Blood Pressure Mean 103 Pulse Ox Oxygen Delivery Method Weight Weight: 240 lb 4.862 oz Body Mass Index (BMI) 35.4 Physical Exam Narrative General: Confused, disoriented, incoherent. Visual hallucinations HEENT: Atraumatic, PERRLA, EOMI, Normocephalic Oral: Oral mucosa dry. No Gingival or Mucosal Lesions/ Ulcerations Neck: Supple, No JVD, Negative Carotid Bruits Lungs: Air entry diminished in bilateral lung bases. No crepitation/rhonchi Cardiovascular: Regular rate, Regular Rhythm, Normal S1, Normal S2, No murmurs Abdomen: Bowel Sounds Present, Soft, Non Tender, Non-Distended : No renal angle tenderness. No suprapubic tenderness. Extremities: Mild bilateral ankle edema, Capillary Refill Less than 3 Seconds Skin: No rashes, No breakdown Musculoskeletal: No Tenderness to Palpation of Joints or Extremities Neurological: Cranial nerves II-XII grossly intact, DTR 2+/4 and Symmetrical, Neuro grossly intact Psych/Mental Status: Confused and disoriented Results Lab / Micro Data Result Diagrams: 05/04/21 13:55 05/04/21 13:55 Labs: Laboratory Results - last 24 hr 05/04/21 13:55: WBC 11.0, RBC 3.90 L, Hgb 12.3 L, Hct 38.1 L, MCV 97.7 H, MCH 31.5, MCHC 32.3, RDW Std Deviation 48.4 H, RDW Coeff of Sophie 13.6, Plt Count 193, MPV 9.7, Immature Gran % (Auto) 0.500, Neut % (Auto) 75.4 H, Lymph % (Auto) 16.3 L, [place] % (Auto) 6.4, Eos % (Auto) 1.2, Baso % (Auto) 0.2, Absolute Neuts (auto) 8.3 H, Absolute Lymphs (auto) 1.78, Nucleated RBC % 0 05/04/21 13:55: Sodium 136, Potassium 4.2, Chloride 102, Carbon Dioxide 27.0, Anion Gap 7, BUN 31 H, Creatinine 1.44 H, Estim Creat Clear Calc 43.64, Est GFR (MDRD) Af Amer 61, Est GFR (MDRD) Non-Af 51 L, BUN/Creatinine Ratio 21.5 H, Glucose 101, Calcium 8.7, Total Bilirubin 0.70, AST 16, ALT 31, Alkaline Phosphatase 62, Troponin I High Sens 9.3, Total Protein 7.1, Albumin 3.7, Globulin 3.4, Albumin/Globulin Ratio 1.1 05/04/21 15:05: Urine Color Yellow, Urine Clarity Clear, Urine pH 6.5, Ur Specific [place] 1.010, Urine Protein Negative, Urine Glucose (UA) Normal, Urine Ketones Negative, Urine Occult Blood Negative, Urine Nitrite Negative, Urine Bilirubin Negative, Urine Urobilinogen Normal, Ur Leukocyte Esterase Negative, Urine RBC 0 SEEN, Urine WBC 0 SEEN, Ur Squamous Epith Cells 0 SEEN, Urine Bacteria 0 SEEN, Urine Mucus 0 SEEN Radiology Impression Brain CT 05/04/21 14:01 IMPRESSION: Normal unenhanced CT scan of the brain. Electronically Signed: Diogo Hendricks MD at 14:53 EDT Tel , Service support , Assessment & Plan Assessment/Plan (1) Altered mental status: QUALIFIERS: Altered mental status type: delirium Qualified Code(s): R41.0 - Disorientation, unspecified PLAN: This is a 75-year-old question gentleman was brought into ER for altered mental status, confusion, delirium, hallucination after drug overdose. 1. Acute encephalopathy most probably toxic secondary to drug overdose/polypharmacy: Patient is being admitted in ICU. Orientation cues. Avoid sedating, benzodiazepines and other medications. IV fluid normal saline. Monitor intake and output. 12-lead EKG shows QTC 427 ms 2. Acute kidney injury or CKD: Creatinine is 1.44. Patient previous creatinine was 1.49 on 04/21/2021 when he came to ER for back pain and was given Percocet 5/325, total 12 tablets and prednisone 20 mg total 15 tablets. IV fluid normal saline. Monitor kidney function electrolytes daily. 3. Chronic back pain: 4. Hypertension: It seems patient is on HCTZ, carvedilol and amlodipine. 5. VT prophylaxis: Heparin 5000 units subcutaneous every 8 hourly. Detailed history about past medical history and medications unclear. Discontinue if platelet count drops less than 50,000 or hemoglobin less than 8 g% Living will/advanced directive/end of life care: This was discussed with patient's granddaughter, Lori patient does have living will or advanced directive as per patient's granddaughter, Lori. 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 After discussion of benefits/risks procedures involved with full code, DNR CC arrest and DNR CC, she said full code and wants all possible resuscitation. She wantS artificial life support including intubation, tube feed, ventilator and/chest compression, central venous catheter, vasopressor and DC shock if needed Total time spent in [id number] encounter in discussion of advanced directive 16 minutes. Charges/Coding Visit Charges Inpatient E&M: 39572 Init Hosp L3 Procedures Hospitalists Procedures: 08173 Advncd Care Plan 30 Min
--- NOTE | 2021-05-04 17:30 | RAD_ITS ---
HISTORY: Syncope EXAMINATION/TECHNIQUE: XR Chest 1 View: Portable upright AP chest x-ray COMPARISON: 10/15/14 FINDINGS: LINES/DEVICES: External pacemaker pad overlies the periphery of the right upper lung field. LUNGS: No consolidation, edema or effusion. No pneumothorax. MEDIASTINUM AND CARDIOVASCULAR STRUCTURES: Stable cardiomegaly. Central airways and mediastinal contour are unremarkable. BONES AND SOFT TISSUES: No acute bony abnormalities. RAD/Chest 1 View (Portable) IMPRESSION: Cardiomegaly without radiographic evidence of acute cardiopulmonary disease. at 1844 Reported and signed by: Cheo Clancy MD Electronically Signed: Cheo Clancy MD at 18:43 EDT Tel , Service support ,
[2021-05-04 18:21] LABS: Acetaminophen (Tylenol) Level 8.1 ug/mL (10.0-30.0)
[2021-05-04] MEDS: 0.9% Normal Saline 1,000 ML 100 ML IV (18:42)
[2021-05-04] MEDS: hydrALAZINE 20 MG/ML Vial 10 MG IV (18:45)
[2021-05-04 19:08] LABS: Magnesium 2.5 mg/dL (1.6-2.6); Troponin-I HS 10.7 pg/mL (3.0-78.5)
[2021-05-04 19:20] LABS: Amphetamine Urine VISTA NEGATIVE (<1000 ng/mL); Barbiturate Urine VISTA NEGATIVE (< 200 ng/mL); Benzodiazepine Urine VISTA NEGATIVE (< 200 ng/mL); Cocaine Urine VISTA NEGATIVE (< 300 ng/mL); Ecstacy Urine VISTA NEGATIVE (< 500 ng/mL); Methadone Urine VISTA NEGATIVE (< 300 ng/mL); PCP Urine VISTA NEGATIVE (< 25 ng/mL); THC Urine VISTA NEGATIVE (< 50 ng/mL); Vista UDS pH Range 7
[2021-05-04] MEDS: Heparin Injection (Vial) 5,000 UNIT/ML VIAL 5000 UNIT SC (22:26)
[2021-05-05] VITALS (17 sets, daily range): BP systolic 114–172; BP diastolic 60–102; PULSE 65–80; RESP 14–22; TEMP 36.5–37.1; O2SAT 94–100
[2021-05-05 02:02] LABS: Absolute Lymphocyte Count 1.43 X10^3/uL (0.83-4.51); Absolute Neutrophil Count 7.7 X10^3/uL (2.0-7.7); Basophil# 0.01 X10^3/uL; Basophil% 0.1 % (0-1); Eosinophil# 0.12 X10^3/uL; Eosinophils% 1.2 % (0-5); Hemoglobin 11.7 g/dL (13.0-16.5); Lymphocyte # 1.43 X10^3/ul (0.83-4.51); Lymphocyte % 14.3 % (19-41); Mean Corp Hgb Conc 32.5 g/dL (32-36); Mean Corpuscular Hgb 31.5 pg (27.0-32.0); Mean Platelet Vol. 10.3 fl (6.2-12.0); Monocyte# 0.67 X10^3/uL; Monocyte% 6.7 % (0-10); NRBC Flagged by Analyzer 0 % (0-5); Neutrophil # 7.67 X10^3/uL (2.7-7.7); Neutrophil % 76.9 % (47-70); Platelet Count 205 K/mm3 (150-450); RBC Distribution Width CV 13.6 % (11.6-14.6); Red Blood Count 3.71 M/mm3 (4.6-6.2)
[2021-05-05 02:22] LABS: Troponin-I HS 12.1 pg/mL (3.0-78.5)
[2021-05-05 02:27] LABS: Anion Gap 5 (5-15); BUN 25 mg/dL (7-18); BUN/Creat Ratio 23.4 RATIO (10-20); Calcium,Total 8.7 mg/dL (8.5-10.1); Chloride 110 mmol/L (98-107); Creatinine, Serum 1.07 mg/dL (0.70-1.30); EST Glomerular Filtration Rate 71 mL/min (>60); Est Glom Filt Rate - Afr Amer 86 mL/min (>60); Estimated Creatinine Clearance 58.73 ml/min; Glucose 100 mg/dL (74-106); Sodium Level 143 mmol/L (136-145)
[2021-05-05] MEDS: 0.9% Saline Lock 10 ML Syringe IV (05:02)
[2021-05-05] MEDS: Ondansetron 4 MG/2 ML Vial IV (05:02)
--- NOTE | 2021-05-05 09:49 | EX.PCM.CONCC ---
Assessment & Plan Assessment/Plan (1) Hypertension: (2) Altered mental status: QUALIFIERS: Altered mental status type: delirium Qualified Code(s): R41.0 - Disorientation, unspecified PLAN: RECOMMENDATIONS: 1. Likely okay to reinitiate baseline medications 2. Consider EEG to evaluate for seizure 3. Okay to transfer from intensive care unit from my perspective 4. Hemodynamically stable on room air. Will sign off from a critical care perspective IMPRESSIONS: 1. Acute encephalopathy of unclear etiology Initial impression was for possible overdose. However, patient's tox screen was negative and patient has remained hemodynamically stable despite over 12 hours of observation in the intensive care unit. Patient is definitely confused and appears to have an element of delirium. However, hemodynamics have been appropriate. Likely okay to reinitiate baseline hypertensive medications if patient is able to swallow. Would hold off on benzodiazepines or narcotics as this can increase his risk of delirium. Given family's perception of apnea and a negative tox screen, postictal state would be a consideration. Patient does not have any history of seizure disorder and no seizure activity has been noted by ICU staff. 2. Chronic kidney disease Patient did have a lab drawn in March with a creatinine about this level. Patient does have some mild lower extremity edema, but does not appear to be in significant renal dysfunction at this time. Continue to monitor electrolytes and urine output closely. 3. Chronic pain syndrome/hypertension/advanced age/obesity Complicates care, management, recovery and prognosis. Reasonable to reinitiate antihypertensives, but would hold off on prednisone and Percocet for now. HPI Consult Data Date of Consult: 05/05/21 HPI Narrative HPI Narrative: KERRY VALDES is a 75 M, with past medical history listed below, who presents to [facility] on 05/04/2021 secondary to altered mental status via EMS. Patient reportedly started to have altered mental status on the day prior to presentation. Patient reportedly was sitting in a chair and then had people standing over him. EMS had reported the family started CPR secondary to a perceived cessation of breathing. When EMS arrived they were able to palpate a pulse, so CPR was discontinued. Patient had denied any lightheadedness or dizziness at that time. Patient denies any chest pain or shortness of breath. Family reportedly had vocalized a concern that the patient may have taken too many medications secondary to a history of sciatica. Patient reportedly lives independently as his was recently placed in a residential. Her medications were available in the home, so there was some concerns that he could have had an unintentional overdose. In the ER, patient was afebrile, but hypertensive at 185/73. Patient was saturating well on room air and not significantly tachycardic. Laboratory data showed a white blood cell count of 11, hemoglobin of 12.3 and a creatinine of 1.44. Other laboratory testing was unremarkable including a negative tox screen. CT of the head was unremarkable. Patient was admitted to the floor for concerns of overdose to be monitored. Since being admitted to the hospital, patient is aware of his name, but has been calm progressively more confused. Patient reportedly has had hallucinations, but is directable. Patient has been hypertensive, but otherwise no hemodynamic abnormalities have been noted on room air. Patient is not able to provide any review of systems at this time secondary to his mental status [facility] Medical History (Updated 05/04/21 @ 18:01 by Duyen Jean) Anemia Anxiety Back pain Degenerative disc disease, lumbar Diabetes Former smoker GERD (gastroesophageal reflux disease) Hypertension Parkinson's disease Vertigo Home Medications amlodipine 10 mg PO DAILY 06/26/17 [History Last Taken 05/04/21] hydrochlorothiazide 12.5 mg PO DAILY 06/26/17 [History Last Taken 05/04/21] carvedilol 6.25 mg PO BID 07/01/18 [History Last Taken 05/04/21] oxycodone-acetaminophen [Percocet] 1 tab PO Q8H PRN 3 Days #12 tab 04/21/21 [Rx Last Taken Unknown] aspirin 81 mg PO DAILY 05/04/21 [History Last Taken 05/04/21] atorvastatin 10 mg PO QHS 05/04/21 [History Last Taken 05/03/21] cyclobenzaprine 10 mg PO TID PRN 05/04/21 [History Last Taken 05/04/21] prednisone See Taper PO DAILY 05/04/21 [History Last Taken 05/03/21] Allergy/AdvReac Type Severity Reaction Status Date / Time No Known Allergies Allergy Verified 05/04/21 13:52 Social History Smoking Status: Former smoker ROS Review of Systems ROS Unobtainable: due to encephalopathy Physical Exam Const no apparent distress; Negative for oriented x3 General Appearance: cooperative and well developed Orientation / Consciousness: confused and disoriented Nutritional Appearance: obese HEENT normocephalic, head/scalp atraumatic and moist oral mucous membranes Eyes PERRL and EOMs intact bilaterally Neck full ROM and no lymphadenopathy Chest inspection of chest normal Resp normal respiratory effort and no use of accessory muscles Effort and Inspection: able to speak in complete sentences Auscultation: clear to auscultation bilaterally; Negative for rales, rhonchi or wheezes Percussion: Negative for dullness Cardio regular rate, regular rhythm, S1 normal heart sound, S2 normal heart sound, no murmurs, no rub and no gallops GI normal to inspection, nondistended, normoactive bowel sounds no CVA tenderness Extremity General Extremity: edema; Negative for clubbing, cyanosis or deformity Peripheral Pulses: Yes pulses 2+ throughout Skin no rashes or lesions noted Neuro CN's II-XII intact bilaterally, moves all extremities and no focal motor deficits Psych cooperative and affect normal Lab / Micro Data Result Diagrams: 05/05/21 01:50 05/05/21 01:50 Labs: Laboratory Results - last 24 hr 05/04/21 13:55: WBC 11.0, RBC 3.90 L, Hgb 12.3 L, Hct 38.1 L, MCV 97.7 H, MCH 31.5, MCHC 32.3, RDW Std Deviation 48.4 H, RDW Coeff of Sophie 13.6, Plt Count 193, MPV 9.7, Immature Gran % (Auto) 0.500, Neut % (Auto) 75.4 H, Lymph % (Auto) 16.3 L, [place] % (Auto) 6.4, Eos % (Auto) 1.2, Baso % (Auto) 0.2, Absolute Neuts (auto) 8.3 H, Absolute Lymphs (auto) 1.78, Nucleated RBC % 0 05/04/21 13:55: Sodium 136, Potassium 4.2, Chloride 102, Carbon Dioxide 27.0, Anion Gap 7, BUN 31 H, Creatinine 1.44 H, Estim Creat Clear Calc 43.64, Est GFR (MDRD) Af Amer 61, Est GFR (MDRD) Non-Af 51 L, BUN/Creatinine Ratio 21.5 H, Glucose 101, Calcium 8.7, Total Bilirubin 0.70, AST 16, ALT 31, Alkaline Phosphatase 62, Troponin I High Sens 9.3, Total Protein 7.1, Albumin 3.7, Globulin 3.4, Albumin/Globulin Ratio 1.1 05/04/21 15:05: Urine Color Yellow, Urine Clarity Clear, Urine pH 6.5, Ur Specific [place] 1.010, Urine Protein Negative, Urine Glucose (UA) Normal, Urine Ketones Negative, Urine Occult Blood Negative, Urine Nitrite Negative, Urine Bilirubin Negative, Urine Urobilinogen Normal, Ur Leukocyte Esterase Negative, Urine RBC 0 SEEN, Urine WBC 0 SEEN, Ur Squamous Epith Cells 0 SEEN, Urine Bacteria 0 SEEN, Urine Mucus 0 SEEN 05/04/21 15:05: Urine Opiates Screen NEGATIVE, Urine Methadone Screen NEGATIVE, Ur Barbiturates Screen NEGATIVE, Ur Phencyclidine Scrn NEGATIVE, Ur Amphetamines Screen NEGATIVE, U Methamphetamin-MDMA NEGATIVE, U Benzodiazepines Scrn NEGATIVE, Urine Cocaine Screen NEGATIVE, U Cannabinoids Screen NEGATIVE, Ur Drug Screen Comment 05/04/21 17:24: Acetaminophen 8.1 L 05/04/21 18:35: Magnesium 2.5, Troponin I High Sens 10.7 05/04/21 23:00: Troponin I High Sens 12.0 05/05/21 01:50: WBC 10.0, RBC 3.71 L, Hgb 11.7 L, Hct 36.0 L, MCV 97.0 H, MCH 31.5, MCHC 32.5, RDW Std Deviation 48.0 H, RDW Coeff of Sophie 13.6, Plt Count 205, MPV 10.3, Immature Gran % (Auto) 0.800, Neut % (Auto) 76.9 H, Lymph % (Auto) 14.3 L, [place] % (Auto) 6.7, Eos % (Auto) 1.2, Baso % (Auto) 0.1, Absolute Neuts (auto) 7.7, Absolute Lymphs (auto) 1.43, Nucleated RBC % 0 05/05/21 01:50: Sodium 143, Potassium 4.0, Chloride 110 H, Carbon Dioxide 28.0, Anion Gap 5, BUN 25 H, Creatinine 1.07, Estim Creat Clear Calc 58.73, Est GFR (MDRD) Af Amer 86, Est GFR (MDRD) Non-Af 71, BUN/Creatinine Ratio 23.4 H, Glucose 100, Calcium 8.7 05/05/21 01:50: Troponin I High Sens 12.[address] 05/04/21 14:01 IMPRESSION: Normal unenhanced CT scan of the brain. Electronically Signed: Diogo Hendricks MD at 14:53 EDT Tel , Service support , Chest X-Ray 05/04/21 17:30 IMPRESSION: Cardiomegaly without radiographic evidence of acute cardiopulmonary disease. at 1844 Reported and signed by: Cheo Clancy MD Electronically Signed: Cheo Clancy MD at 18:43 EDT Tel , Service support , Charges/Coding Visit Charges Inpatient E&M: 09939 Init Hosp L2
[2021-05-05] MEDS: Heparin Injection (Vial) 5,000 UNIT/ML VIAL 5000 UNIT SC ×2 (10:02→21:52)
[2021-05-05] MEDS: 0.9% Normal Saline 1,000 ML 100 ML IV ×2 (10:49→20:50)
--- NOTE | 2021-05-05 13:01 | CASEMGMT ---
Social Work Met with patient in room. Patient granddaughter, Lori ([phone]) present. Patient A&Ox0. Lori tearful and states this is not my grandfather. Lori asking multiple medical questions. This social security assessor directing Lori's questions to nursing staff and Dr. Boykin. Dr. Boykin to go and speak with Lori. This social security assessor provided support. Lori reports that patient prior level was independent at home alone. Patient spouse recently admitted to [facility] and patient has been home alone since. Patient pending therapy evaluations. Igor Wild MSW, SHEKHAR
[2021-05-05] MEDS: Menthol/Lanolin/Calamine/Znox 113 GM Tube 1 APPLIC TOPICAL ×2 (14:07→21:51)
--- NOTE | 2021-05-05 18:14 | PCM.PN.HOSP ---
Subjective Subjective Patient was seen and examined today, I talked with his granddaughter who was at his bedside today, he remains confused but is able to tell me he is in the hospital and he is somnolent but he is able to be awakened with painful stimuli, he does not appear to be in any distress. Objective Data Objective Data Vital Signs: Vital Signs Temp Pulse Resp BP Pulse Ox 98.3 F 75 18 136/69 H 97 05/05/21 14:03 05/05/21 15:01 05/05/21 14:03 05/05/21 14:03 05/05/21 14:03 Oxygen Delivery Method Room Air Weight: 101.2 kg Body Mass Index (BMI) 33.5 Intake & Output: Intake and Output for Last 24 Hours 05/03/21 05/04/21 05/05/21 23:59 23:59 23:59 Intake Total 500 / 500 1000 / 1000 Output Total 1350 / 1600 650 / 650 Balance -850 / -1100 350 / 350 Medical Nutrition Assessment Dietitian: Nutrition Therapy Diagnosis Start: 05/05/21 15:41 Freq: Status: Active Protocol: Document 05/05/21 16:55 RMA (Rec: 05/05/21 16:55 RMA [id number]) Nutrition Malnutrition Evidence of Malnutrition Exists No Clinical Problem Biting/Chewing Difficulty Etiology related to altered mental status Signs/Symptoms as evidenced by need for easy- to-chew solids per RUBBER MOULDING MACHINE OPERATOR. Status Active Problem Recommendation Dietitian Recommendations/Changes Continue cardiac diet w/ easy- to-chew foods; thin liquids as per RUBBER MOULDING MACHINE OPERATOR; monitor need for carbohydrate-control. Will offer ensure pudding w/ meals as tolerated. Lab / Micro Data Result Diagrams: 05/05/21 01:50 05/05/21 01:50 Labs: Laboratory Results - last 24 hr 05/04/21 15:05: Urine Opiates Screen NEGATIVE, Urine Methadone Screen NEGATIVE, Ur Barbiturates Screen NEGATIVE, Ur Phencyclidine Scrn NEGATIVE, Ur Amphetamines Screen NEGATIVE, U Methamphetamin-MDMA NEGATIVE, U Benzodiazepines Scrn NEGATIVE, Urine Cocaine Screen NEGATIVE, U Cannabinoids Screen NEGATIVE, Ur Drug Screen Comment 05/04/21 17:24: Acetaminophen 8.1 L 05/04/21 18:35: Magnesium 2.5, Troponin I High Sens 10.7 05/04/21 23:00: Troponin I High Sens 12.0 05/05/21 01:50: WBC 10.0, RBC 3.71 L, Hgb 11.7 L, Hct 36.0 L, MCV 97.0 H, MCH 31.5, MCHC 32.5, RDW Std Deviation 48.0 H, RDW Coeff of Sophie 13.6, Plt Count 205, MPV 10.3, Immature Gran % (Auto) 0.800, Neut % (Auto) 76.9 H, Lymph % (Auto) 14.3 L, [place] % (Auto) 6.7, Eos % (Auto) 1.2, Baso % (Auto) 0.1, Absolute Neuts (auto) 7.7, Absolute Lymphs (auto) 1.43, Nucleated RBC % 0 05/05/21 01:50: Sodium 143, Potassium 4.0, Chloride 110 H, Carbon Dioxide 28.0, Anion Gap 5, BUN 25 H, Creatinine 1.07, Estim Creat Clear Calc 58.73, Est GFR (MDRD) Af Amer 86, Est GFR (MDRD) Non-Af 71, BUN/Creatinine Ratio 23.4 H, Glucose 100, Calcium 8.7 05/05/21 01:50: Troponin I High Sens 12.1 Radiography Diagnostic Testing: Radiology Impression Chest X-Ray 05/04/21 17:30 IMPRESSION: Cardiomegaly without radiographic evidence of acute cardiopulmonary disease. at 1844 Reported and signed by: Cheo Clancy MD Electronically Signed: Cheo Clancy MD at 18:43 EDT Tel , Service support , Physical Exam Const no apparent distress and healthy appearing Constitutional Narrative: Patient exhibits mild confusion General Appearance: cooperative, well kempt and well developed Orientation / Consciousness: awake, oriented to person, oriented to place, oriented to time, confused and lethargic HEENT normocephalic, head/scalp atraumatic and moist oral mucous membranes Head and Scalp: normocephalic Eyes PERRL, EOMs intact bilaterally and conjunctivae normal Neck nuchal rigidity, supple, no JVD, thyroid normal and no carotid bruits General: trachea midline Resp normal respiratory effort, no retractions, no use of accessory muscles and clear to auscultation bilaterally Auscultation: Negative for rales, rhonchi or wheezes Cardio regular rate, regular rhythm, S1 normal heart sound, S2 normal heart sound, no murmurs, no rub and no gallops GI normal to inspection, nondistended, normoactive bowel sounds, soft to palpation, non-tender and non-distended Extremity normal to inspection and no clubbing, cyanosis or edema Skin no rashes or lesions noted General Skin Exam: no breakdown Neuro oriented x3, CN's II-XII intact bilaterally, no focal motor deficits and no sensory deficits noted Sensorium / Orientation: awake and alert Speech: speech normal Psych thought process normal Psych Narrative: Patient is somnolent, he was bonds appropriately to some questions but exhibits confusion Assessment & Plan Assessment/Plan (1) Altered mental status: QUALIFIERS: Altered mental status type: delirium Qualified Code(s): R41.0 - Disorientation, unspecified PLAN: 1. Toxic encephalopathy-believed to be secondary to ingestion of prescription drugs, patient will continue to be monitored, I do not feel he needs an EEG performed. 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
[2021-05-05] MEDS: Nystatin Powder 15gm Bottle 1 APPLIC TOPICAL (21:54)
[2021-05-06 01:37] VITALS: BP 156/65; PULSE 82; RESP 18; TEMP 36.6; O2SAT 95
[2021-05-06 04:00] VITALS: PULSE 65
[2021-05-06] MEDS: Nystatin Powder 15gm Bottle 1 APPLIC TOPICAL (06:24)
[2021-05-06] MEDS: Menthol/Lanolin/Calamine/Znox 113 GM Tube 1 APPLIC TOPICAL (06:24)
[2021-05-06] MEDS: 0.9% Normal Saline 1,000 ML 100 ML IV (06:24)
[2021-05-06 07:00] VITALS: PULSE 67
[2021-05-06 08:00] VITALS: BP 150/97; PULSE 66; RESP 18; TEMP 36.8; O2SAT 97
[2021-05-06] MEDS: Heparin Injection (Vial) 5,000 UNIT/ML VIAL 5000 UNIT SC (09:33)
--- NOTE | 2021-05-06 10:51 | CASEMGMT ---
Social Work Dr. Boykin request for high school social science teacher to follow up with patient today to explore discharge plan as patient is now alert. This high school social science teacher met with patient in room. Introduced self and high school social science teacher role. Patient A&Ox3. Patient agreeable to speak with this high school social science teacher. This high school social science teacher inquired about discharge plan for patient. Patient states I am going home. Patient does confirm to currently be alone at home due to patient spouse being in the long-term. Patient does confirm to also be aware that patient is unsteady. This high school social science teacher broached topic of help in the home for patient. Patient reports to have daughter that is able to assist. Patient agreeable to this high school social science teacher speaking with patient daughter. Telephone call to patient daughter, Chica. This high school social science teacher updated Chica on concerns of patient returning to home alone. Chica states let me speak with my daughter. Chica to get back to this high school social science teacher on status of how much help patient will be able to have in the home. This high school social science teacher provided Chica with contact information for this high school social science teacher. Will continue to follow. Igor PACK, SHEKHAR
[2021-05-06] MEDS: oxyCODONE 5 MG Tablet PO (11:00)
--- NOTE | 2021-05-06 11:42 | CASEMGMT ---
Addendum entered by Kaitlin Wild 05/06/21 11:57: Referral for PASSPORT services faxed to [facility]. Original Note: Social Work Patient granddaughter, Lori present on unit and asking to speak with this web content & social media manager. Therapy evaluated patient and recommending continued therapy in a jail home setting for the safest outcome. Met with patient and Lori in room. This web content & social media manager updated patient and Lori on therapy recommendations. Patient and Lori plan for patient to discharge to home with family for support and home health care for physical and occupational therapy as well as a home health aide. This web content & social media manager provided patient and Lori with list of in-network home health companies that are local to patient geographical region. Patient request for referral to be made to [facility] first and then [facility] or [facility] [place] if [facility] is not accepting patient. Patient reports to have needed DME in the home. Lori reports plans to monitor all patient medication and to be in the home often. Lori reports to have camera's set up in the home and to be able to see him all the time. Patient family will provide transportation to home for patient when patient is medically cleared. This web content & social media manager also broached topic of further help in the home through PASSPORT services, patient and Lori are open to PASSPORT referral being made. Support provided. Per Dr. Avendano patient is medically cleared for discharge today. Telephone call to [facility]. Referral for PT/OT/COMMISSARY CLERK/SN. Order entered. [facility] to get back to this web content & social media manager if able to accept. Will continue to follow. Igor PACK, SHEKHAR
--- NOTE | 2021-05-06 11:50 | DCINST_ITS ---
Discharge Instructions Diet Discharge Diet: No restrictions Activity Discharge Activity: Return to Normal Activity Weight Bearing Status: Weight bearing as tolerated Follow Up Care Test Results: Test results from this visit will be discussed in further detail at your follow-up appointment, if applicable. Discharge Plan Admission Admit Date/Time: 05/05/21 14:13 Primary Reason for Your Visit: suspected adverse drug reaction Attending Provider: Lon Avendano Primary Care Provider: Jasson England Consulting Providers: Melquiades Gordillo ; Sami Estevez ; Gabi Kumar PSYCHIATRY INSTRUCTOR Discharge Orders/Prescriptions Prescriptions: Continued amlodipine 5 MG tablet 10 mg PO DAILY RF: 0 hydrochlorothiazide 12.5 MG capsule 12.5 mg PO DAILY RF: 0 carvedilol 3.125 MG tablet 6.25 mg PO BID RF: 0 oxycodone-acetaminophen [Percocet] 5-325 mg tablet 1 tab PO Q8H PRN (Reason: pain) 3 Days Qty: 12 RF: 0 cyclobenzaprine 10 mg tablet 10 mg PO TID PRN (Reason: Spasms) RF: 0 prednisone 10 mg tablet See Taper mg PO DAILY RF: 0 atorvastatin 10 mg tablet 10 mg PO QHS RF: 0 aspirin 81 mg Capsule 81 mg PO DAILY RF: 0 Referrals / Follow Up: Jasson Englnad MD [Primary Care Provider] - In 1 Week Disposition Disposition (needs filled in before D/C Order can be placed): Home Health Service
--- NOTE | 2021-05-06 13:19 | CASEMGMT ---
[facility]. Medical team updated. Patient to discharge to home today. Patient updated on plan and is agreeable. Igor PACK, SHEKHAR
--- NOTE | 2021-05-06 14:30 | PHA.DC.MR ---
Pharmacy Service has performed discharge medication reconciliation for this patient. The patient's discharge medication list was reviewed for discrepancies and discrepancies were resolved. Home Medications amlodipine 10 mg PO DAILY 06/26/17 hydrochlorothiazide 12.5 mg PO DAILY 06/26/17 carvedilol 6.25 mg PO BID 07/01/18 oxycodone-acetaminophen [Percocet] 1 tab PO Q8H PRN 3 Days #12 tab 04/21/21 aspirin 81 mg PO DAILY 05/04/21 atorvastatin 10 mg PO QHS 05/04/21 cyclobenzaprine 10 mg PO TID PRN 05/04/21 prednisone See Taper PO DAILY 05/04/21
--- NOTE | 2021-05-06 15:18 | DS.PCM_ITS ---
Providers Date of Admission: 05/05/21 Date of Discharge: 05/06/21 Primary Care Physician: Dr. Jasson England MD Consultations 05/04/21 17:44 Consult: Clinical Pharmacy Manager / Pulmonary Medicine Routine Consulting Provider: Pulmonary Medicine [facility] Reason for Consult: AMS, Drug overdose EMERGENT Consult: No MD Notified: Yes Date Notified: 05/04/21 Time Notified: 17:45 Method of Notification: Text Reason For Visit: AMS Diagnosis Discharge Diagnosis (1) Altered mental status: Status: Acute Code(s): R41.82 - Altered mental status, unspecified Qualifiers: Altered mental status type: delirium Qualified Code(s): R41.0 - Disorientation, unspecified Plan: 1. Toxic encephalopathy-secondary to adverse drug effect from prescription medications #2 essential hypertension #3 degenerative disc disease lumbar spine #4 dehydration Medications at Discharge Home Medications amlodipine 10 mg PO DAILY 06/26/17 hydrochlorothiazide 12.5 mg PO DAILY 06/26/17 carvedilol 6.25 mg PO BID 07/01/18 oxycodone-acetaminophen [Percocet] 1 tab PO Q8H PRN 3 Days #12 tab 04/21/21 aspirin 81 mg PO DAILY 05/04/21 atorvastatin 10 mg PO QHS 05/04/21 cyclobenzaprine 10 mg PO TID PRN 05/04/21 prednisone See Taper PO DAILY 05/04/21 Hospital Course Operations None Procedures None Summary of Care Provided Minutes Spent on Discharge: 32 Hospital Course: This 75-year-old white male was brought to the emergency room [facility] by [facility] after family members found him minimally responsive at home, the squad reported that the family started CPR because the patient had stopped breathing, upon arrival by [facility] to his home however, squad was able to palpate a pulse and CPR was discontinued. Patient denied any chest pain or shortness of breath, family was concerned that the patient may have taken too many of his prescription medications which he uses for chronic pain. Work-up in the emergency room included imaging studies of the brain which showed no acute process, patient had chest x-ray which revealed cardiomegaly without evidence of acute cardiopulmonary disease. Patient's white blood cell count was 11, patient's creatinine was elevated at 1.49 and BUN was elevated at 33. Patient was initially placed in observation status in ICU, he remains somnolent but was finally able to answer questions and responded to painful stimuli although he remained lethargic. Patient was transferred to PCU for further care, on 05/06/2021, he appeared alert and was able to answer questions appropriately (he remained slightly confused however) and he did not remember any of the events at his home. It was felt that the patient was stable for discharge on 05/06/2021: On examination he appeared in good health and spirits. Vital signs as documented. Skin warm and dry and without overt rashes. Neck without JVD, neck was supple, trachea midline, thyroid was normal. Lungs clear bilaterally, normal air movement was noted. Heart exam notable for regular rhythm, normal sounds and absence of murmurs, rubs or gallops. Abdomen unremarkable and without evidence of organomegaly, masses, or abdominal aortic enlargement. Bowel sounds are present, abdomen is not distended. Extremities nonedematous, no cyanosis was noted, no clubbing was noted. Neuro: Cranial nerves II through XII are grossly intact, no focal motor deficits were noted, sensation to light touch and pinprick intact, motor exam 5/5 throughout. Psych: Patient is alert and oriented x3, he does not appear anxious or depressed, he does not appear agitated. Family members agreed to monitor the patient at home and home health was set up for the patient. It was postulated that the patient may have taken an excessive amount of pain medications or had an adverse effect due to some medications he was taking at home. Medical Records Data Medical Nutrition Assessment Dietitian: Nutrition Therapy Diagnosis Start: 05/05/21 15:41 Freq: Status: Active Protocol: Document 05/05/21 16:55 RMA (Rec: 05/05/21 16:55 RMA [id number]) Nutrition Malnutrition Evidence of Malnutrition Exists No Clinical Problem Biting/Chewing Difficulty Etiology related to altered mental status Signs/Symptoms as evidenced by need for easy- to-chew solids per HERB COUNSELOR. Status Active Problem Recommendation Dietitian Recommendations/Changes Continue cardiac diet w/ easy- to-chew foods; thin liquids as per HERB COUNSELOR; monitor need for carbohydrate-control. Will offer ensure pudding w/ meals as tolerated. Weight / BMI Weight Weight: 101.5 kg Body Mass Index (BMI) 33.5 ABG / Lab / Microbiology Data Result Diagrams: 05/05/21 01:50 05/05/21 01:50 D/C Instructions Discharge Diet: No restrictions Weight Bearing Status: Weight bearing as tolerated Meaningful Use Info Meaningful Use Diagnoses (Choose all that apply): None applicable Discharge Plan Admission Admit Date/Time: 05/05/21 14:13 Primary Reason for Your Visit: suspected adverse drug reaction Attending Provider: Lon Avendano Primary Care Provider: Jasson England Consulting Providers: Melquiades Gordillo ; Sami Estevez ; Gabi Kumar KAPOK MACHINE OPERATOR Discharge Orders/Prescriptions Prescriptions: Continued amlodipine 5 MG tablet 10 mg PO DAILY RF: 0 hydrochlorothiazide 12.5 MG capsule 12.5 mg PO DAILY RF: 0 carvedilol 3.125 MG tablet 6.25 mg PO BID RF: 0 oxycodone-acetaminophen [Percocet] 5-325 mg tablet 1 tab PO Q8H PRN (Reason: pain) 3 Days Qty: 12 RF: 0 cyclobenzaprine 10 mg tablet 10 mg PO TID PRN (Reason: Spasms) RF: 0 prednisone 10 mg tablet See Taper mg PO DAILY RF: 0 atorvastatin 10 mg tablet 10 mg PO QHS RF: 0 aspirin 81 mg Capsule 81 mg PO DAILY RF: 0 Referrals / Follow Up: Jasson England MD [Primary Care Provider] - In 1 Week Disposition Disposition (needs filled in before D/C Order can be placed): Home Health Service Charges/Coding Visit Charges Inpatient E&M: 20851 Disch Hosp
== END 2021-05-06 15:43 | disposition home health service (06) | DRG 93 ==
LOC: ED 17:07 → ICU 17:43 → PCU 05-05 13:37
PROVIDERS: Admitting Provider Internal Medicine; Emergency Provider Emergency Medicine; PCP Family Medicine; Visit Provider Internal Medicine
DX: G92 Toxic encephalopathy (principal); T50.915A Adverse effect of multiple unspecified drugs, medicaments and biological substances, initial encounter; Y92.009 Unspecified place in unspecified non-institutional (private) residence as the place of occurrence of the external cause; I10 Essential (primary) hypertension; M51.36 Other intervertebral disc degeneration, lumbar region; G89.29 Other chronic pain; E86.0 Dehydration; Z79.82 Long term (current) use of aspirin; Z79.899 Other long term (current) drug therapy
CPT/HCPCS: 70450; 71045; 80048; 80053; 80307; 80329; 81001; 83735; 84484; 85025; 92610; 93005; 97110; 97162; 97166; 97530; 97535; 99285; J7030; A4216; G0480; J2405

== ENCOUNTER 2021-05-10 16:00 | Inpatient (IN) | payer MEDICARE, SELFPAY ==
[2021-05-04 18:35] VITALS: BMI 33.5
[2021-05-10] VITALS (10 sets, daily range): BP systolic 100–153; BP diastolic 45–76; PULSE 58–76; RESP 13–18; TEMP 36.4–37; O2SAT 96–100; BMI 34.7; BMI 33.4
--- NOTE | 2021-05-10 17:18 | CT_ITS ---
STUDY: CT CERVICAL SPINE WITHOUT CONTRAST REASON FOR EXAM: Male, 75 years old. Wall. Head injury. RADIATION DOSAGE (If Supplied By Facility): CTDIvol = ( 26.86 ) mGy, DLP = ( 559.35 ) mGycm TECHNIQUE: High resolution transaxial imaging was performed without contrast material. Sagittal and coronal images were reconstructed. Individualized dose optimization techniques were used for this CT. COMPARISON: None FINDINGS: Normal craniovertebral junction. There are mild degenerative changes of the anterior atlantoaxial articulation. Normal odontoid process. Normal cervical lordosis. Normal vertebral bodies and posterior osseous elements. C2-3: Normal endplates. Normal disc height and morphology. Normal central canal and intervertebral neuroforamina. C3-4: Normal endplates. Normal disc height and morphology. Mild facet joint degenerative change. Normal central canal and intervertebral neuroforamina. C4-5: Normal endplates. Normal disc height and morphology. Normal central canal and intervertebral neuroforamina. Mild facet joint degenerative change. C5-6: Normal endplates. Normal disc height and morphology. Mild facet joint degenerative Normal central canal and intervertebral neuroforamina. C6-7: Normal endplates. Normal disc height and morphology facet joint degenerative changes. Normal central canal and intervertebral neuroforamina. C7-T1: Normal endplates. Normal disc height and morphology. Normal central canal and intervertebral neuroforamina. Normal visualized soft tissue structures. CT/Spine Cervical without Contras IMPRESSION: Essentially normal unenhanced CT examination of the cervical spine. Note: MRI is more sensitive than CT in detecting cord injury, ligamentous injury and epidural hematoma. If there is continued clinical concern for any of these entities, MRI should be considered. Electronically Signed: Armin Berger DO at 18:17 EDT Tel [phone], Service support ,
--- NOTE | 2021-05-10 17:19 | EKG12_ITS ---
Test Reason : Blood Pressure : / mmHG Vent. Rate : 065 BPM Atrial Rate : 065 BPM P-R Int : 304 ms QRS Dur : 074 ms QT Int : 430 ms P-R-T Axes : 098 026 052 degrees QTc Int : 447 ms Sinus rhythm with 1st degree A-V block ST & T wave abnormality, consider anterior ischemia Abnormal ECG Confirmed by MATT DUMONT, CLOTILDE ([id number]), newspaper copy editor VAUGHN KENT ([id number]) on 05/13/2021 9:23:43 AM Referred By: KAY/ROEL Confirmed By:NASIR GUTIERREZ MD
--- NOTE | 2021-05-10 17:21 | EX.ED.GENINJ ---
HPI History of Present Illness Chief Complaint: Laceration Informant: patient Narrative Narrative: Patient is a 75-year-old male who presents to the emergency department after a fall. Patient does not remember what happened. He cannot tell me if he tripped or if he passed out. He denies completely losing consciousness during the fall. He pushed his life alert button as soon as he fell. He does have a laceration above his left eye from his glasses during the fall. He is denying any headache or vision changes. No neck pain or back pain. He denies any weakness or loss of sensation in his extremity. [place] any chest pain, shortness of breath. No abdominal pain or nausea/vomiting. He does have chronic sciatica which he states is flared up right now. He typically takes Percocet at home and did not take this today. Patient's family is at bedside. They state he was recently just discharged from the hospital for an episode of altered mental status. They never figured out the diagnosis. He was discharged last week and does have PT/OT and home health aides visiting. They do feel comfortable with him being home alone. They have cameras set up where they can talk to him as well. Patient otherwise is not on any blood thinning medications. [facility] Medical History Anemia Anxiety Back pain Degenerative disc disease, lumbar Diabetes Former smoker GERD (gastroesophageal reflux disease) Hypertension Parkinson's disease Vertigo Home Medications amlodipine 10 mg PO DAILY 06/26/17 [History Last Taken 05/04/21] hydrochlorothiazide 12.5 mg PO DAILY 06/26/17 [History Last Taken 05/04/21] carvedilol 6.25 mg PO BID 07/01/18 [History Last Taken 05/04/21] oxycodone-acetaminophen [Percocet] 1 tab PO Q8H PRN 3 Days #12 tab 04/21/21 [Rx Last Taken Unknown] aspirin 81 mg PO DAILY 05/04/21 [History Last Taken 05/04/21] atorvastatin 10 mg PO QHS 05/04/21 [History Last Taken 05/03/21] cyclobenzaprine 10 mg PO TID PRN 05/04/21 [History Last Taken 05/04/21] ammonium lactate [Lac-Hydrin Twelve] 1 applic TOPICAL DAILY PRN 05/10/21 [History Last Taken Unknown] Allergy/AdvReac Type Severity Reaction Status Date / Time No Known Allergies Allergy Verified 05/10/21 16:02 Social History Smoking Status: Former smoker ROS ROS ED Constitutional Constitutional ED: Denies chills or fever(s) Eyes Eyes: Denies change in vision ENT ENT ED: Denies epistaxis or rhinorrhea Cardiovascular Cardiovascular: Denies chest pain or palpitations Respiratory/Chest Respiratory/Chest: Denies cough, dyspnea or dyspnea on exertion Gastrointestinal Gastrointestinal: Denies abdominal pain, diarrhea, nausea or vomiting Genitourinary Genitourinary ED: Denies dysuria, hematuria or urinary frequency Musculoskeletal Musculoskeletal: Denies back pain or neck pain Integumentary Denies rash Neurologic Neurologic: Denies dizziness, headache(s) or weakness EXAM Physical Exam Const Vital Signs: 05/10/21 16:02 05/10/21 17:01 05/10/21 17:32 Temperature 98.2 F Temperature Source Temporal Pulse Rate 71 Respiratory Rate 14 18 Respiratory Effort Short of Breath Respiratory Pattern Normal Blood Pressure 121/66 H Blood Pressure Mean 84 Pulse Ox 98 97 Oxygen Delivery Method Room Air Room Air 05/10/21 18:51 05/10/21 19:15 05/10/21 20:19 Temperature 97.6 F L Temperature Source Temporal Pulse Rate 61 61 76 Respiratory Rate 13 18 16 Respiratory Effort Respiratory Pattern Blood Pressure 116/71 153/76 H Blood Pressure Mean 86 101 Pulse Ox 100 96 Oxygen Delivery Method Room Air Positive well nourished and well developed General Appearance ED: well developed and NAD HEENT Reports normocephalic and moist mucous membranes HEENT Narrative: Sub-1 cm linear laceration above left eyebrow. No active bleeding. This is superficial without foreign body. No raccoon eyes or junior sign. Midface is stable. Eyes PERRL and EOMs intact bilaterally Neck supple General: Negative for tenderness Chest Wall inspection of chest normal Resp normal respiratory effort and clear to auscultation bilaterally Auscultation: Negative for rales, rhonchi or wheezes Cardio regular rate, regular rhythm and no murmurs GI normal to inspection, nondistended, normoactive bowel sounds and non-tender Palpation: soft; Negative for guarding or rebound tenderness present Extremity normal to inspection Extremity Narrative: Trace edema bilateral lower extremities. General Extremety ED: Negative for tenderness Neuro no sensory deficits noted Sensorium / Orientation: alert Motor Exam: strength 5/5 throughout Psych mental status grossly normal Skin no rashes or lesions noted MDM MDM MDM Narrative Medical decision making narrative: Patient presents to the emergency department for a fall today. Patient does not remember what caused him to fall. But he denies any loss of consciousness during the fall. We will do medical work-up to make sure there is no underlying issue causing him to fall as well as CT scan of the head and neck. Patient given a dose of [place] for his chronic sciatica which she takes Percocet at home for. Patient's lab work came back with a positive troponin. On last lab work performed recently his troponin was within normal limits. Patient not having any chest pain or shortness of breath. Did discuss the case with the on-call clothing examiner who recommends noninvasive cardiac monitoring and troponin trending. He is given a dose of aspirin in the meantime. He otherwise has remained stable throughout ED stay. Will bring into the hospital for further evaluation and management. He understands and is agreeable with this plan. No other traumatic findings on imaging. Laceration does not require any repair. Lab Data Labs: Laboratory Results - last 24 hr 05/10/21 05/10/21 05/10/21 17:30 17:41 17:41 WBC 8.7 RBC 3.47 L Hgb 10.8 L Hct 33.5 L MCV 96.5 H MCH 31.1 MCHC 32.2 RDW Std Deviation 47.4 H RDW Coeff of Sophie 13.2 Plt Count 185 MPV 9.6 Immature Gran % (Auto) 0.600 Neut % (Auto) 71.7 H Lymph % (Auto) 17.8 L [place] % (Auto) 7.6 Eos % (Auto) 2.1 Baso % (Auto) 0.2 Absolute Neuts (auto) 6.2 Absolute Lymphs (auto) 1.54 Nucleated RBC % 0 Sodium 138 Potassium 3.6 Chloride 102 Carbon Dioxide 31.0 Anion Gap 5 BUN 23 H Creatinine 1.13 Estim Creat Clear Calc 55.61 Est GFR (MDRD) Af Amer 81 Est GFR (MDRD) Non-Af 67 BUN/Creatinine Ratio 20.4 H Glucose 98 Calcium 8.7 Magnesium Total Creatine Kinase Troponin I High Sens 214.4 H* Urine Color Yellow Urine Clarity Clear Urine pH 6.0 Ur Specific [place] 1.010 Urine Protein 15 H Urine Glucose (UA) Normal Urine Ketones Negative Urine Occult Blood Negative Urine Nitrite Negative Urine Bilirubin Negative Urine Urobilinogen Normal Ur Leukocyte Esterase Negative Urine RBC 0 SEEN Urine WBC 0-5 SEEN Ur Squamous Epith Cells 0 SEEN Ur Renal Epithelial Cell 0-5 SEEN Urine Bacteria 0 SEEN Urine Mucus 0 SEEN 05/10/21 05/10/21 17:41 19:56 WBC RBC Hgb Hct MCV MCH MCHC RDW Std Deviation RDW Coeff of Sophie Plt Count MPV Immature Gran % (Auto) Neut % (Auto) Lymph % (Auto) [place] % (Auto) Eos % (Auto) Baso % (Auto) Absolute Neuts (auto) Absolute Lymphs (auto) Nucleated RBC % Sodium Potassium Chloride Carbon Dioxide Anion Gap BUN Creatinine Estim Creat Clear Calc Est GFR (MDRD) Af Amer Est GFR (MDRD) Non-Af BUN/Creatinine Ratio Glucose Calcium Magnesium 2.9 H Total Creatine Kinase 197 Troponin I High Sens Urine Color Urine Clarity Urine pH Ur Specific [place] Urine Protein Urine Glucose (UA) Urine Ketones Urine Occult Blood Urine Nitrite Urine Bilirubin Urine Urobilinogen Ur Leukocyte Esterase Urine RBC Urine WBC Ur Squamous Epith Cells Ur Renal Epithelial Cell Urine Bacteria Urine Mucus Radiography Diagnostic Testing: Radiology Impression Cervical Spine CT 05/10/21 17:18 IMPRESSION: Essentially normal unenhanced CT examination of the cervical spine. Note: MRI is more sensitive than CT in detecting cord injury, ligamentous injury and epidural hematoma. If there is continued clinical concern for any of these entities, MRI should be considered. Electronically Signed: Armin Berger DO at 18:17 EDT Tel [phone], Service support , Brain CT 05/10/21 17:55 IMPRESSION: No acute intracranial or calvarial abnormality. There is no major interval change. Electronically Signed: Armin Berger DO at 18:15 EDT Tel [phone], Service support , Discharge Plan Dx/Rx/DC Orders Clinical Impression: Syncope, CHI (closed head injury), Elevated troponin Disposition Disposition: Acute Care Hospital [facility] Discharge Date/Time: 05/10/21 20:50
[2021-05-10] MEDS: HYDROcodone Bitartrate/Apap 5/325 Tablet PO (17:33)
[2021-05-10 17:51] LABS: Bacteria 0 SEEN /hpf (None Seen); Mucous, Urine 0 SEEN /hpf (<or=2+); Red Blood Cells-Urine 0 SEEN /hpf (0-5); Squamous Epithelial Cells - UA 0 SEEN /hpf (0-5)
[2021-05-10 17:54] LABS: Absolute Lymphocyte Count 1.54 X10^3/uL (0.83-4.51); Absolute Neutrophil Count 6.2 X10^3/uL (2.0-7.7); Basophil# 0.02 X10^3/uL; Basophil% 0.2 % (0-1); Eosinophil# 0.18 X10^3/uL; Eosinophils% 2.1 % (0-5); Hematocrit 33.5 % (40-54); Hemoglobin 10.8 g/dL (13.0-16.5); Lymphocyte # 1.54 X10^3/ul (0.83-4.51); Lymphocyte % 17.8 % (19-41); Mean Corp Hgb Conc 32.2 g/dL (32-36); Mean Corpuscular Hgb 31.1 pg (27.0-32.0); Mean Corpuscular Volume 96.5 fL (80-94); Mean Platelet Vol. 9.6 fl (6.2-12.0); Monocyte# 0.66 X10^3/uL; Monocyte% 7.6 % (0-10); NRBC Flagged by Analyzer 0 % (0-5); Neutrophil % 71.7 % (47-70); Platelet Count 185 K/mm3 (150-450); RBC Distribution Width CV 13.2 % (11.6-14.6); RBC Distribution Width SD 47.4 fl (35.1-43.9); Red Blood Count 3.47 M/mm3 (4.6-6.2); White Blood Count 8.7 K/mm3 (4.4-11.0)
[2021-05-10 17:54] LABS: Color, Urine Yellow (Yellow); Glucose, Dipstick Normal (Normal); Ketone-Dipstick Negative (Negative); Leukocyte Esterase-Dipstick Negative /ul (Negative); Nitrite-Dipstick Negative (Negative); Occult Blood-Urine Negative /ul (Negative); Protein-Dipstick 15 mg/dl (Negative); Urine Bilirubin Dipstick Negative (Negative); Urine Clarity Clear (Clear); Urine Urobilinogen Normal (Normal)
--- NOTE | 2021-05-10 17:55 | CT_ITS ---
STUDY: CT BRAIN WITHOUT CONTRAST REASON FOR EXAM: Male, 75 years old. Fall. Head injury. RADIATION DOSAGE (If Supplied By Facility): CTDIvol = ( 44.99 ) mGy, DLP = ( 846.73 ) mGycm TECHNIQUE: Transaxial CT imaging of the brain was performed without administration of intravenous contrast material. Individualized dose optimization techniques were used for this CT. COMPARISON: 05/04/2021 FINDINGS: Normal soft tissue structures. Normal calvarium. There is mild cerebral atrophy with widening of the extra-axial spaces and ventricular dilatation. There are areas of decreased attenuation within the white matter tracts of the supratentorial brain, consistent with microvascular disease changes. Normal basal ganglia and thalami. Normal brainstem. Normal cerebellum. There is no intracranial hemorrhage. There are no findings of an acute ischemic infarction. Normal visualized paranasal sinuses. CT/Brain/Head without Contrast IMPRESSION: No acute intracranial or calvarial abnormality. There is no major interval change. Electronically Signed: Armin Berger DO at 18:15 EDT Tel [phone], Service support ,
--- NOTE | 2021-05-10 17:58 | ED.RN ---
pt poked 4 times, blood work obtained, unable to place iv. dr. fulton informed.
[2021-05-10 18:05] LABS: Renal Epithelial Cells 0-5 SEEN /hpf (0-5); White Blood Cells 0-5 SEEN /hpf (0-5)
[2021-05-10 18:28] LABS: Anion Gap 5 (5-15); BUN 23 mg/dL (7-18); BUN/Creat Ratio 20.4 RATIO (10-20); Calcium,Total 8.7 mg/dL (8.5-10.1); Chloride 102 mmol/L (98-107); Creatinine, Serum 1.13 mg/dL (0.70-1.30); EST Glomerular Filtration Rate 67 mL/min (>60); Est Glom Filt Rate - Afr Amer 81 mL/min (>60); Estimated Creatinine Clearance 55.61 ml/min; Glucose 98 mg/dL (74-106); Potassium 3.6 mmol/L (3.5-5.1); Sodium Level 138 mmol/L (136-145); Troponin-I HS 214.4 pg/mL (3.0-78.5)
[2021-05-10] MEDS: Ipratropium/Albuterol Sulfate 3 ML AMPUL.NEB INHALATION (18:50)
[2021-05-10] MEDS: Aspirin 81 MG TAB.CHEW 324 MG PO (19:26)
--- NOTE | 2021-05-10 20:19 | HP.PCM.HOS_ITS ---
HPI - General General Date of Admission: 05/10/21 HPI Narrative KERRY VALDES, is a 75 M who recently admitted between 05/04 to 05/06 for AMS/toxic encephalopathy was brought to ED by EMS for fall and 1 to 2 cm laceration over left supraorbital region. Patient has history of imbalance, ga it disorder cream and uses walker. Denies passing out/syncope but has chronic shaking and tremors of upper extremity. During previous admission, he was evaluated by PT OT and speech therapist and patient went home with home health care. He also has chronic intermittent vertigo, last time about 2 days ago. Bilateral lower extremity swelling, bilateral worse since previous admission. In ED, basic evaluation shows elevated isolated troponin but patient does not have chest pain tightness or pressure or increased shortness of breath. 12-lead EKG done in ER shows normal sinus rhythm, first-degree block at 65 beats minute with nonspecific ST-T abnormality, did not worsen V1 to V3, similar to previous EKG of 05/04. He has chronic wheezing which has increased over the last few days. Patient a lso has drooling saliva history. Denies history of chronic lung disease but has history of remote smoking in the past. [facility] Medical History Anemia Anxiety Back pain Degenerative disc disease, lumbar Diabetes Former smoker GERD (gastroesophageal reflux disease) Hypertension Parkinson's disease Vertigo Home Medications amlodipine 10 mg PO DAILY 06/26/17 [History Last Taken 05/04/21] hydrochlorothiazide 12.5 mg PO DAILY 06/26/17 [History Last Taken 05/04/21] carvedilol 6.25 mg PO BID 07/01/18 [History Last Taken 05/04/21] oxycodone-acetaminophen [Percocet] 1 tab PO Q8H PRN 3 Days #12 tab 04/21/21 [Rx Last Taken Unknown] aspirin 81 mg PO DAILY 05/04/21 [History Last Taken 05/04/21] atorvastatin 10 mg PO QHS 05/04/21 [History Last Taken 05/03/21] cyclobenzaprine 10 mg PO TID PRN 05/04/21 [History Last Taken 05/04/21] ammonium lactate [Lac-Hydrin Twelve] 1 applic TOPICAL DAILY PRN 05/10/21 [History Last Taken Unknown] Allergy/AdvReac Type Severity Reaction Status Date / Time No Known Allergies Allergy Verified 05/10/21 16:02 Social History Smoking Status: Former smoker ROS ROS Narrative Constitutional: Reports fatigue and weakness, intermittent vertigo HEENT: Reports systems reviewed and no addt'l complaints, except as documented Respiratory/Chest: Denies shortness of breath with exertion. Wheezing present Gastrointestinal: No nausea or vomiting. Denies coffee ground emesis, hematemesis or vomiting Genitourinary: Denies burning urination or new urinary tract symptoms Musculoskeletal: Reports joint pain and limited range of motion Neurologic: Denies seizure-like activity skin: No ulcer. No rash. Bilateral lower extremity swelling. Endocrinology: Reports systems reviewed and no addt'l complaints, except as documented Hematologic/Lymphatic: Reports systems reviewed and no addt'l complaints, except as documented Rest 12 ROS are negative except as mentioned in HPI Vital Signs Vital Signs Vital Signs: 05/10/21 16:02 05/10/21 17:01 05/10/21 17:32 Temperature 98.2 F Temperature Source Temporal Pulse Rate 71 Respiratory Rate 14 18 Respiratory Effort Short of Breath Respiratory Pattern Normal Blood Pressure 121/66 H Blood Pressure Mean 84 Pulse Ox 98 97 Oxygen Delivery Method Room Air Room Air 05/10/21 18:51 05/10/21 19:15 Temperature Temperature Source Pulse Rate 61 61 Respiratory Rate 13 18 Respiratory Effort Respiratory Pattern Blood Pressure 116/71 Blood Pressure Mean 86 Pulse Ox 100 Oxygen Delivery Method Room Air Weight Weight: 235 lb Body Mass Index (BMI) 34.7 Physical Exam Narrative General: Alert, Oriented x3, Cooperative HEENT: Atraumatic, PERRLA, EOMI, Normocephalic Oral: No Gingival or Mucosal Lesions/ Ulcerations Neck: Supple, No JVD, Negative Carotid Bruits Lungs: Air entry diminished in bilateral lung bases. Bilateral fine expiratory wheezing present. Improved after bronchodilator in ED Cardiovascular: Regular rate, Regular Rhythm, Normal S1, Normal S2, No murmurs Abdomen: Bowel Sounds Present, Soft, Non Tender, Non-Distended : No renal angle tenderness. No suprapubic tenderness. Extremities: Bilateral 2+ pitting edema, Capillary Refill Less than 3 Seconds Skin: No rashes, No breakdown Musculoskeletal: No Tenderness to Palpation of Joints or Extremities Neurological: Cranial nerves II-XII grossly intact, DTR 2+/4 and Symmetrical, Neuro grossly intact Psych/Mental Status: Slow to respond. Results Lab / Micro Data Result Diagrams: 05/10/21 17:41 05/10/21 17:41 Labs: Laboratory Results - last 24 hr 05/10/21 17:30: Urine Color Yellow, Urine Clarity Clear, Urine pH 6.0, Ur Specific [place] 1.010, Urine Protein 15 H, Urine Glucose (UA) Normal, Urine Ketones Negative, Urine Occult Blood Negative, Urine Nitrite Negative, Urine Bilirubin Negative, Urine Urobilinogen Normal, Ur Leukocyte Esterase Negative, Urine RBC 0 SEEN, Urine WBC 0-5 SEEN, Ur Squamous Epith Cells 0 SEEN, Ur Renal Epithelial Cell 0-5 SEEN, Urine Bacteria 0 SEEN, Urine Mucus 0 SEEN 05/10/21 17:41: WBC 8.7, RBC 3.47 L, Hgb 10.8 L, Hct 33.5 L, MCV 96.5 H, MCH 3 1.1, MCHC 32.2, RDW Std Deviation 47.4 H, RDW Coeff of Sophie 13.2, Plt Count 185, MPV 9.6, Immature Gran % (Auto) 0.600, Neut % (Auto) 71.7 H, Lymph % (Auto) 17.8 L, [place] % (Auto) 7.6, Eos % (Auto) 2.1, Baso % (Auto) 0.2, Absolute Neuts (auto) 6.2, Absolute Lymphs (auto) 1.54, Nucleated RBC % 0 05/10/21 17:41: Sodium 138, Potassium 3.6, Chloride 102, Carbon Dioxide 31.0, Anion Gap 5, BUN 23 H, Creatinine 1.13, Estim Creat Clear Calc 55.61, Est GFR (MDRD) Af Amer 81, Est GFR (MDRD) Non-Af 67, BUN/Creatinine Ratio 20.4 H, Glucose 98, Calcium 8.7, Troponin I High Sens 214.4 H* Radiology Impression Cervical Spine CT 05/10/21 17:18 IMPRESSION: Essentially normal unenhanced CT examination of the cervical spine. Note: MRI is more sensitive than CT in detecting cord injury, ligamentous injury and epidural hematoma. If there is continued clinical concern for any of these entities, MRI should be considered. Electronically Signed: Armin Berger DO at 18:17 EDT Tel [phone], Service support , Brain CT 05/10/21 17:55 IMPRESSION: No acute intracranial or calvarial abnormality. There is no major interval change. Electronically Signed: Armin Berger DO at 18:15 EDT Tel [phone], Service support , Assessment & Plan Assessment/Plan (1) Near syncope: (2) Fall: QUALIFIERS: Encounter type: initial encounter Qualified Code(s): W19.XXXA - Unspecified fall, initial encounter PLAN: 75-year-old questionable man admitted for evaluation of fall, near syncope and isolated elevation of high-sensitivity troponin 1. Near syncope and fall and laceration over left supraorbital region: Patient denies headache or syncope. 1 cm linear laceration over left eyebrow, taken care of by ER physician. PT OT, speech/swallow therapy and evaluation. 2D echo tomorrow a.m. Orthostatic vitals tomorrow a.m. 2. Isolated elevation of isolated troponin: Troponin high-sensitivity 214.4. No chest pain/pressure, shortness of breath or EKG change. ER physician discussed with Dr. Nguyen and recommended serial troponin and 2D echo t omorrow a.m. No echo in our system to compare with. 3. CKD stage IIIa: Creatinine on baseline 1.13. Lasix 40 Merrem I.V. 1 dose ordered as patient has bilateral leg swelling. 4. Chronic back pain, sciatica in nature:: Patient states he has history of chronic lumbar disc degeneration with pain radiation to the right buttock mid thigh level. PT and OT evaluation. Will need further outpatient work-up with the spine surgeon. 5. Hypertension: Continue patient home medications HCTZ, carvedilol and amlodipine. 5. VT prophylaxis: Lovenox 40 subcu daily discontinue if platelet count drops l ess than 50,000 or hemoglobin less than 8 g% As per conversation during recent admission: Patient remains full code. Patient H&P, clinical circumstances, expected hospital work-up and management discussed with the patient's granddaughter Lori in the ER. Charges/Coding Visit Charges OBSV E&M: 31649 Initial observation care L3
[2021-05-10 20:51] LABS: CPK Total, Creatine Kinase 197 U/L (39-308)
[2021-05-10 21:06] LABS: Magnesium 2.9 mg/dL (1.6-2.6)
[2021-05-10 22:00] LABS: Troponin-I HS 201.6 pg/mL (3.0-78.5)
[2021-05-10] MEDS: Atorvastatin Calcium 10 MG Tablet PO (22:10)
[2021-05-10] MEDS: Carvedilol 6.25 MG Tablet PO (22:10)
[2021-05-10] MEDS: Enoxaparin 40 MG/0.4 ML Syringe SC (22:10)
[2021-05-10] MEDS: Furosemide 40 MG/4 ML Vial IV (22:10)
[2021-05-10] MEDS: 0.9% Saline Lock 10 ML Syringe IV (22:42)
[2021-05-11] VITALS (9 sets, daily range): BP systolic 105–158; BP diastolic 47–87; PULSE 51–67; RESP 16–18; TEMP 36.6–36.9; O2SAT 94–99
[2021-05-11 00:06] LABS: Troponin-I HS 207.5 pg/mL (3.0-78.5)
--- NOTE | 2021-05-11 05:55 | ECHOCS_ITS ---
Reason For Study: Near Syncope Procedure This was a 2D Doppler, Color Flow transthoracic echocardiogram. Very technically difficult study. Images attempted with patient supine and in left lateral positions. Contrast injection performed. The study was technically difficult. Contrast injection was performed. Exam performed in department. Left Ventricle Based upon the 2D echocardiographic and contrast enhanced images obtained there appears to be grossly normal left ventricular size, wall motion, and systolic function. The estimated ejection fraction is 60 %. Diastolic function is indeterminate. Right Ventricle Normal RV size. Normal systolic function. Atria Normal left atrium. Normal right atrium. No doppler evidence for ASD. Mitral Valve There is no mitral annular calcification. Normal mitral valve. Trivial mitral valve insufficiency. Tricuspid Valve Normal tricuspid valve. Trivial tricuspid valve insufficiency. Unable to estimate RV systolic pressure/pulmonary artery pressure due to technically difficult study. Aortic Valve The aortic valve is not well visualized. Trivial aortic valve insufficiency. Pulmonic Valve The pulmonic valve is not well visualized. Great Vessels The aortic root is not well visualized. Pericardium/Pleural No pericardial effusion. Epicardial fat. Medication Diluted definity 3ml given slow IV push to enhance endocardial definition. MMode/2D Measurements & Calculations Ao root diam: 4.4 cm LAV(MOD-sp2): 71.6 ml Time Measurements MV dec time: 0.29 sec Doppler Measurements & Calculations MV E max mike: 77.3 cm/sec Lat Peak E' Mike: 7.3 cm/sec Med Peak E' Mike: 5.5 cm/sec MV A max mike: 95.6 cm/sec E/E' lat: 10.6 E/E' med: 14.1 MV E/A: 0.81 MV V2 max: 103.5 cm/sec MV P1/2t max mike: 73.1 cm/sec Ao V2 max: 134.8 cm/sec MV max P.3 mmHg MV P1/2t: 107.7 msec Ao max P.3 mmHg MV V2 mean: 49.2 cm/sec MV mean P.2 mmHg MV dec slope: 198.9 cm/sec2 MV V2 VTI: 31.1 cm MVA(P1/2t): 2.0 cm2 AI max mike: 351.1 cm/sec LV V1 max: 126.0 cm/sec PA V2 max: 101.9 cm/sec AI max P.4 mmHg LV V1 max P.3 mmHg AI dec slope: 114.4 cm/sec2 AI P1/2t: 899.2 msec ECHO/Echo Complete W/ Contrast Interpretation Summary The study was technically difficult. Contrast injection was performed. Based upon the 2D echocardiographic and contrast enhanced images obtained there appears to be grossly normal left ventricular size, wall motion, and systolic function. The estimated ejection fraction is 60 %. Trivial mitral valve insufficiency. Trivial tricuspid valve insufficiency. Trivial aortic valve insufficiency. Epicardial fat. Unable to estimate RV systolic pressure/pulmonary artery pressure due to techni steve difficult study. Diastolic function is indeterminate. Ordering Physician: Andres Crowell Referring Physician: Tomás Spaulding Performed By: Bjorn Harrell RCS
[2021-05-11 07:14] LABS: Absolute Lymphocyte Count 1.53 X10^3/uL (0.83-4.51); Absolute Neutrophil Count 4.1 X10^3/uL (2.0-7.7); Basophil# 0.01 X10^3/uL; Basophil% 0.2 % (0-1); Eosinophil# 0.17 X10^3/uL; Eosinophils% 2.6 % (0-5); Hematocrit 29.9 % (40-54); Hemoglobin 9.7 g/dL (13.0-16.5); Lymphocyte # 1.53 X10^3/ul (0.83-4.51); Lymphocyte % 23.8 % (19-41); Mean Corp Hgb Conc 32.4 g/dL (32-36); Mean Corpuscular Hgb 31.3 pg (27.0-32.0); Mean Corpuscular Volume 96.5 fL (80-94); Mean Platelet Vol. 9.4 fl (6.2-12.0); Monocyte# 0.55 X10^3/uL; Monocyte% 8.6 % (0-10); NRBC Flagged by Analyzer 0 % (0-5); Neutrophil # 4.14 X10^3/uL (2.7-7.7); Neutrophil % 64.3 % (47-70); Platelet Count 172 K/mm3 (150-450); RBC Distribution Width CV 13.3 % (11.6-14.6); RBC Distribution Width SD 47.1 fl (35.1-43.9); White Blood Count 6.4 K/mm3 (4.4-11.0)
[2021-05-11 08:01] LABS: Cholesterol 141 mg/dL (200); High Density Lipoprotein 30 mg/dL; Thyroid Stim Hormone (TSH) 0.33 uIU/mL (0.358-3.74); Triglycerides 134 mg/dL; Very Low Density Lipoprotein 27 mg/dL (5-40)
[2021-05-11] MEDS: Aspirin 81 MG TAB.CHEW PO (08:12)
--- NOTE | 2021-05-11 10:07 | CASEMGMT ---
RN told SW she spoke with patient about placement and he agreed. He said someone will need to talk with his daughter. SW will see how patient does with therapy and then get in touch with his daughter. Patient's is currently at [place]. Jo Ann COTTON
--- NOTE | 2021-05-11 10:13 | STRESSREP ---
Stress Test Report Date: 05-11-2021 Procedure: Pharmacologic stress nuclear imaging study Indications: Abnormal cardiac enzymes; near syncope/syncope Consent: Per the patient Procedure: The patient underwent pharmacologic (Regadenoson 0.4mg ) evaluation with a peak heart rate of 74 beats per minute (51%predicted maximal heart rate) and a peak blood pressure of 118/62 mmHg. The baseline ECG demonstrated sinus bradycardia; nonspecific ST/T wave abnormality. The peak pharmacologic ECG demonstrated no obvious ECG changes. There were no cardiac dysrhythmias pretest, during pharmacologic infusion, or recovery. There was no complaint of chest discomfort during pharmacologic infusion or recovery. The examination was discontinued secondary to completion of protocol. Impression: 1. Pharmacologic (Regadenoson) evaluation 2. Peak pharmacologic ECG with continued nonspecific ST/T wave abnormality. 3. There were no cardiac dysrhythmias pretest, during pharmacologic infusion, or recovery. 4. Nuclear images pending Myocardial perfusion imaging study: Technique: The patient was injected with 15.0 millicuries of technetium 99m Cardiolite and subsequently rest SPECT Cardiolite nuclear imaging was obtained in the horizontal long, vertical long, and short axis views. The patient underwent pharmacologic (Regadenoson) evaluation with a peak heart rate of 74 beats per minute (51% percent predicted maximal heart rate) and a peak blood pressure of 118/62 mmHg. The patient was injected with 45.0 millicuries of technetium 99m Cardiolite and subsequently stress SPECT Cardiolite nuclear imaging was obtained in the horizontal long, vertical long, and short axis views. A gated Cardiolite study at peak stress was obtained. Interpretation: Rest and stress SPECT Cardiolite nuclear imaging status post realignment, normalization, and attenuation correction demonstrate, following stress, the appearance of an area of diminished myocardial fusion/tracer uptake in portions of the basal towards mid inferolateral segments. There is end systolic thickening and brightening. The gated Cardiolite study demonstrates myocardial thickening and inward wall motion. The reported LVEF is 70%. Impression: 1. Rest and stress SPECT her nuclear imaging demonstrate myocardial perfusion changes potentially compatible with an area of stress-induced myocardial ischemia involving portions of the basal to mid inferolateral segments, however, an element of shifting soft tissue attenuation/artifact cannot necessarily be excluded. 2. The gated Cardiolite study reports an LVEF of 70%. This note was generated with [employer] software. It may contain incorrect words, spelling, and punctuation that were not noted in checking the note before signing.
[2021-05-11] MEDS: hydroCHLOROthiazide 12.5mg 12.5 MG PO (11:12)
[2021-05-11] MEDS: amLODIPine 10 MG Tablet PO (11:12)
[2021-05-11] MEDS: Carvedilol 6.25 MG Tablet PO ×2 (11:12→21:01)
--- NOTE | 2021-05-11 12:20 | PN.HOSP_ITS ---
Subjective Subjective Patient is a 75-year-old gentleman recently discharged from the hospital after being admitted for toxic encephalopathy from accidental ingestion of prescription drugs who presented to the emergency department following a near syncope with fall. Patient was found to have elevated troponin. Admitted to monitored bed for subsequent management Objective Data Objective Data Vital Signs: Vital Signs Temp Pulse Resp BP Pulse Ox 97.8 F 51 L 18 121/87 H 96 05/11/21 03:09 05/11/21 07:44 05/11/21 03:09 05/11/21 03:09 05/11/21 03:09 Oxygen Delivery Method Room Air Weight: 102.5 kg Body Mass Index (BMI) 33.4 Intake & Output: Intake and Output for Last 24 Hours 05/09/21 05/10/21 05/11/21 23:59 23:59 23:59 Intake Total 120 / 120 0 / 0 Output Total 500 / 500 0 / 0 Balance -380 / -380 0 / 0 Lab / Micro Data Result Diagrams: 05/11/21 06:35 05/10/21 17:41 Labs: Laboratory Results - last 24 hr 05/10/21 17:30: Urine Color Yellow, Urine Clarity Clear, Urine pH 6.0, Ur Specific [place] 1.010, Urine Protein 15 H, Urine Glucose (UA) Normal, Urine Ketones Negative, Urine Occult Blood Negative, Urine Nitrite Negative, Urine Bilirubin Negative, Urine Urobilinogen Normal, Ur Leukocyte Esterase Negative, Urine RBC 0 SEEN, Urine WBC 0-5 SEEN, Ur Squamous Epith Cells 0 SEEN, Ur Renal Epithelial Cell 0-5 SEEN, Urine Bacteria 0 SEEN, Urine Mucus 0 SEEN 05/10/21 17:41: WBC 8.7, RBC 3.47 L, Hgb 10.8 L, Hct 33.5 L, MCV 96.5 H, MCH 31.1, MCHC 32.2, RDW Std Deviation 47.4 H, RDW Coeff of Sophie 13.2, Plt Count 185, MPV 9.6, Immature Gran % (Auto) 0.600, Neut % (Auto) 71.7 H, Lymph % (Auto) 17.8 L, [place] % (Auto) 7.6, Eos % (Auto) 2.1, Baso % (Auto) 0.2, Absolute Neuts (auto) 6.2, Absolute Lymphs (auto) 1.54, Nucleated RBC % 0 05/10/21 17:41: Sodium 138, Potassium 3.6, Chloride 102, Carbon Dioxide 31.0, Anion Gap 5, BUN 23 H, Creatinine 1.13, Estim Creat Clear Calc 55.61, Est GFR (MDRD) Af Amer 81, Est GFR (MDRD) Non-Af 67, BUN/Creatinine Ratio 20.4 H, Glucose 98, Calcium 8.7, Troponin I High Sens 214.4 H* 05/10/21 17:41: Magnesium 2.9 H 05/10/21 19:56: Total Creatine Kinase 197 05/10/21 21:21: Troponin I High Sens 201.6 H* 05/10/21 23:22: Troponin I High Sens 207.5 H* 05/11/21 06:35: WBC 6.4, RBC 3.10 L, Hgb 9.7 L, Hct 29.9 L, MCV 96.5 H, MCH 31.3, MCHC 32.4, RDW Std Deviation 47.1 H, RDW Coeff of Sophie 13.3, Plt Count 172, MPV 9.4, Immature Gran % (Auto) 0.500, Neut % (Auto) 64.3, Lymph % (Auto) 23.8, [place] % (Auto) 8.6, Eos % (Auto) 2.6, Baso % (Auto) 0.2, Absolute Neuts (auto) 4.1, Absolute Lymphs (auto) 1.53, Nucleated RBC % 0 05/11/21 06:35: Triglycerides 134, Cholesterol 141, LDL Cholesterol 84, VLDL Cholesterol 27, HDL Cholesterol 30 L, TSH 0.33 L Radiography Diagnostic Testing: Radiology Impression Cervical Spine CT 05/10/21 17:18 IMPRESSION: Essentially normal unenhanced CT examination of the cervical spine. Note: MRI is more sensitive than CT in detecting cord injury, ligamentous injury and epidural hematoma. If there is continued clinical concern for any of these entities, MRI should be considered. Electronically Signed: Armin Berger DO at 18:17 EDT Tel [phone], Service support , Brain CT 05/10/21 17:55 IMPRESSION: No acute intracranial or calvarial abnormality. There is no major interval change. Electronically Signed: Armin Berger DO at 18:15 EDT Tel [phone], Service support , Echocardiogram 05/11/21 05:55 Interpretation Summary The study was technically difficult. Contrast injection was performed. Based upon the 2D echocardiographic and contrast enhanced images obtained there appears to be grossly normal left ventricular size, wall motion, and systolic function. The estimated ejection fraction is 60 %. Trivial mitral valve insufficiency. Trivial tricuspid valve insufficiency. Trivial aortic valve insufficiency. Epicardial fat. Unable to estimate RV systolic pressure/pulmonary artery pressure due to technically difficult study. Diastolic function is indeterminate. ___ Ordering Physician: Andres Crowell Referring Physician: Tomás Spaulding Performed By: Bjorn Harrell RCS Physical Exam Narrative GENERAL: cooperative HEENT: Left periorbital laceration EYES; Anicteric, Normal Conjunctiva NECK; supple, normal thyroid, RESPIRATORY: Diminished to auscultation CARDIOVASCULAR: Regular S1 S2, GI: soft, normoactive bowel sounds, : No Renal angle tenderness; EXTREMITIES: No edema, no clubbing, MUSCULOSKELETAL: no muscle waisting NEURO: Awake; no lateralizing signs. SKIN: No Rash PSYCH; Flat affect Assessment & Plan Assessment/Plan (1) Near syncope: (2) Fall: QUALIFIERS: Encounter type: initial encounter Qualified Code(s): W19.XXXA - Unspecified fall, initial encounter PLAN: Patient is a 75-year-old gentleman recently discharged from the hospital after being admitted for toxic encephalopathy from accidental ingestion of prescription drugs who presented to the emergency department following a near syncope with fall. Patient was found to have elevated troponin. Admitted to monitored bed for subsequent management 1. Near syncope with fall ?Patient did sustain laceration over the left supraorbital region. Admitted to monitored bed requested for every shift orthostatic check also requested for PT OT 2. Elevated troponin Admitted to a monitored bed subsequent evaluation with a 2D echo and nuclear stress test ordered 3. Anemia - Secondary to chronic disorder monitoring H&H and transfuse if patient becomes symptomatic or hemoglobin falls below 7 4. Hypertension - Blood pressure controlled, home medications continued with dose adjustment as needed 5. Chronic back pain ?As a result of chronic lumbar disc degeneration disease. Pain meds as needed also requested for PT OT 6. Obesity with BMI of 33.4 ?Weight loss advised 7. Dyslipidemia -Patient is on statin therapy, continued at home dose 8. Physical deconditioning - Requested for PT OT eval and geriatric social worker to assist with discharge planning 9. DVT prophylaxis - On enoxaparin Charges/Coding Visit Charges OBSV E&M: 91512 Subsequent observation care L3
[2021-05-11] MEDS: oxyCODONE 5 MG Tablet PO ×2 (13:45→18:38)
--- NOTE | 2021-05-11 14:03 | CASEMGMT ---
Therapy recommended patient go somewhere for rehab. Patient had said he wanted he daughter called regarding a d/c plan. SW called patient's daughter, Chica. Discussed recommendation and she would like for patient to go to [facility] with his . DEVANTE told her SW will work on the referral. DEVANTE faxed referral and also called Briana at [facility]. Await response from [facility]. Jo Ann Rocha SALES PLANNING ANALYST LULA
--- NOTE | 2021-05-11 14:04 | CASEMGMT ---
According to the [employer] medicare website, the following are in-network tertiary facilities: [facility], [facility], [facility], [facility], [facility], and . Jose LAYTON CM
[2021-05-11] MEDS: Enoxaparin 40 MG/0.4 ML Syringe SC (17:28)
--- NOTE | 2021-05-11 18:06 | PCM.CONS.C ---
Assessment & Plan Assessment/Plan (1) Elevated troponin: PLAN: He does have an elevated troponin I level. The etiology is unclear at this time. From a cardiac standpoint he has been monitored. His echocardiogram is noted. His stress test is noted which raises concern about the possibility of underlying CAD and myocardial ischemia. At the present time he has continued medical therapy which has included aspirin, nitrates as needed, beta-blockers, and lipid-lowering agents. Based upon his clinical scenario and objective findings has been recommended he undergo further evaluation with diagnostic cardiac catheterization. The procedure risk has been discussed with the patient with his granddaughter present. The patient and his granddaughter state that they have also discussed that with his daughter. They are all in agreement to proceeding with this procedure. (2) Syncope: PLAN: It is unclear as to whether or not the patient truly lost consciousness. At the moment he has been monitored. Thus far has not been found to have other cardiac dysrhythmias to explain his event. His noninvasive cardiovascular studies do raise concern about CAD and myocardial ischemia. Thus he will continue to be monitored and undergo evaluation as noted. Depending upon his findings he may or may not need further cardiac versus noncardiac evaluation. (3) HLD (hyperlipidemia): PLAN: He will continue risk factor modification medical therapy as deemed appropriate. (4) Hypertension: PLAN: His blood pressure does need to be monitored with his medicines being adjusted to avoid significant hypotension or hypertension. Addt'l Comments This note was generated using a voice recognition system and there may be incorrect words, spelling or punctuation that were not noted when reviewing the office note prior to saving. HPI Consult Data Date of Consult: 05/11/21 HPI Narrative HPI Narrative: KERRY VLADES, is a 75 year old white male who presents for a consultation based upon concerns of near syncope/syncope and abnormal cardiac enzymes and subsequently an abnormal pharmacologic stress nuclear imaging study. The patient presented to the [facility] emergency department status post a fall at home which resulted in a left forehead laceration. There was concerns as to whether or not the patient had nearly lost consciousness or actually lost consciousness. He does not recall having any chest discomfort or difficulty breathing. He does not recall having ongoing orthopnea or PND or worsening peripheral pitting edema. He does comment that he has had episodes of what he describes as heartburn in the past. He has previously attributed this to different meals/foods. He was evaluated in the emergency department. He did have abnormal troponin I levels. They were trended and remained abnormal without significant change. His ECG demonstrated sinus rhythm with first-degree AV block with nonspecific ST and T wave abnormality. He underwent evaluation with a transthoracic echocardiogram and subsequently a pharmacologic stress nuclear imaging study. The results of his studies are as noted below. He does not recall undergoing cardiovascular evaluation in the past. He has undergone evaluation for mental status changes thought potentially related to medications. It is also noted that over time his hemoglobin level appears to have declined somewhat. [facility] Medical History (Updated 05/11/21 @ 18:[address] Richmond Nguyen MD) Anemia Anxiety Back pain Degenerative disc disease, lumbar Diabetes Former smoker GERD (gastroesophageal reflux disease) HLD (hyperlipidemia) Hypertension Parkinson's disease Vertigo Home Medications amlodipine 10 mg PO DAILY 06/26/17 [History Last Taken 05/04/21] hydrochlorothiazide 12.5 mg PO DAILY 06/26/17 [History Last Taken 05/04/21] carvedilol 6.25 mg PO BID 07/01/18 [History Last Taken 05/04/21] oxycodone-acetaminophen [Percocet] 1 tab PO Q8H PRN 3 Days #12 tab 04/21/21 [Rx Last Taken Unknown] aspirin 81 mg PO DAILY 05/04/21 [History Last Taken 05/04/21] atorvastatin 10 mg PO QHS 05/04/21 [History Last Taken 05/03/21] cyclobenzaprine 10 mg PO TID PRN 05/04/21 [History Last Taken 05/04/21] ammonium lactate [Lac-Hydrin Twelve] 1 applic TOPICAL DAILY PRN 05/10/21 [History Last Taken Unknown] Allergy/AdvReac Type Severity Reaction Status Date / Time No Known Allergies Allergy Verified 05/10/21 16:02 Social History Smoking Status: Former smoker ROS Constitutional Constitutional: Reports as per HPI Eyes Eyes: Reports as per HPI ENT HEENT: Reports as per HPI Cardiovascular Cardiovascular: Reports chest pain Respiratory/Chest Respiratory/Chest: Reports as per HPI Gastrointestinal Gastrointestinal: Reports dyspepsia Genitourinary Genitourinary: Reports as per HPI Musculoskeletal Musculoskeletal: Reports as per HPI Integumentary Integumentary: Reports as per HPI Neurologic Neurologic: Reports as per HPI Physical Exam Const alert, oriented x3 and no apparent distress Orientation / Consciousness: awake HEENT normocephalic and hearing grossly normal bilaterally HEENT Narrative: Left forehead laceration Eyes PERRL, EOMs intact bilaterally and conjunctivae normal Neck full ROM, supple and no JVD Chest inspection of chest normal Resp clear to auscultation bilaterally Cardio regular rate, regular rhythm, S1 normal heart sound and S2 normal heart sound GI normal to inspection, nondistended, normoactive bowel sounds Extremity no pedal edema Skin Skin Narrative: Left forehead laceration Neuro oriented x3, moves all extremities, no focal motor deficits and no sensory deficits noted Psych mental status grossly normal Procedure Criteria Type of Procedure Procedure Type: Elective Elective Risks - COVID COVID Risk Discussion: The surgeon/proceduralist and patient have discussed in detail the risk of exposure to and/or potential harm posed by the COVID-19 virus with having a surgery/procedure at this time versus the risk of delaying the surgery/procedure. It is not possible to know either the risk of delaying the surgery or procedure or chance of getting an infection with perfect accuracy, but a joint decision was made between the patient and the surgeon/proceduralist to proceed at this time with the scheduled surgery/procedure as indicated on the consent form. Objective Data Vital Signs: Vital Signs Temp Pulse Resp BP Pulse Ox 98.2 F 63 16 105/47 L 98 05/11/21 16:26 05/11/21 16:26 05/11/21 16:26 05/11/21 16:26 05/11/21 16:26 Oxygen Delivery Method Room Air Weight: 225 lb 15.581 oz Body Mass Index (BMI) 33.4 Intake & Output: Intake and Output for Last 24 Hours 05/09/21 05/10/21 05/11/21 23:59 23:59 23:59 Intake Total 120 / 120 240 / 240 Output Total 500 / 500 475 / 475 Balance -380 / -380 -235 / -235 Lab / Micro Data Result Diagrams: 05/11/21 06:35 05/10/21 17:41 Labs: Laboratory Results - last 24 hr 05/10/21 17:41: Sodium 138, Potassium 3.6, Chloride 102, Carbon Dioxide 31.0, Anion Gap 5, BUN 23 H, Creatinine 1.13, Estim Creat Clear Calc 55.61, Est GFR (MDRD) Af Amer 81, Est GFR (MDRD) Non-Af 67, BUN/Creatinine Ratio 20.4 H, Glucose 98, Calcium 8.7, Troponin I High Sens 214.4 H* 05/10/21 17:41: Magnesium 2.9 H 05/10/21 19:56: Total Creatine Kinase 197 05/10/21 21:21: Troponin I High Sens 201.6 H* 05/10/21 23:22: Troponin I High Sens 207.5 H* 05/11/21 06:35: WBC 6.4, RBC 3.10 L, Hgb 9.7 L, Hct 29.9 L, MCV 96.5 H, MCH 31.3, MCHC 32.4, RDW Std Deviation 47.1 H, RDW Coeff of Sophie 13.3, Plt Count 172, MPV 9.4, Immature Gran % (Auto) 0.500, Neut % (Auto) 64.3, Lymph % (Auto) 23.8, [place] % (Auto) 8.6, Eos % (Auto) 2.6, Baso % (Auto) 0.2, Absolute Neuts (auto) 4.1, Absolute Lymphs (auto) 1.53, Nucleated RBC % 0 05/11/21 06:35: Triglycerides 134, Cholesterol 141, LDL Cholesterol 84, VLDL Cholesterol 27, HDL Cholesterol 30 L, TSH 0.33 L Cardiology Labs/Tests 05/10/21 17:41: Sodium 138, Potassium 3.6, Chloride 102, Carbon Dioxide 31.0, Anion Gap 5, BUN 23 H, Creatinine 1.13, Est GFR (MDRD) Af Amer 81, Est GFR (MDRD) Non-Af 67, BUN/Creatinine Ratio 20.4 H, Glucose 98, Calcium 8.7 05/10/21 17:41: Magnesium 2.9 H 05/11/21 06:35: WBC 6.4, RBC 3.10 L, Hgb 9.7 L, Hct 29.9 L, MCV 96.5 H, MCH 31.3, MCHC 32.4, Plt Count 172, MPV 9.4, Immature Gran % (Auto) 0.500, Neut % (Auto) 64.3, Lymph % (Auto) 23.8, [place] % (Auto) 8.6, Eos % (Auto) 2.6, Baso % (Auto) 0.2, Absolute Neuts (auto) 4.1, Nucleated RBC % 0 05/11/21 06:35: Triglycerides 134, Cholesterol 141, LDL Cholesterol 84, VLDL Cholesterol 27, HDL Cholesterol 30 L Rhythm: Sinus rhythm/sinus bradycardia EKG: As noted above ECHO: As noted below Stress Test: Stress Test Report Date: 05-11-2021 Procedure: Pharmacologic stress nuclear imaging study Indications: Abnormal cardiac enzymes; near syncope/syncope Consent: Per the patient Procedure: The patient underwent pharmacologic (Regadenoson 0.4mg ) evaluation with a peak heart rate of 74 beats per minute (51%predicted maximal heart rate) and a peak blood pressure of 118/62 mmHg. The baseline ECG demonstrated sinus bradycardia; nonspecific ST/T wave abnormality. The peak pharmacologic ECG demonstrated no obvious ECG changes. There were no cardiac dysrhythmias pretest, during pharmacologic infusion, or recovery. There was no complaint of chest discomfort during pharmacologic infusion or recovery. The examination was discontinued secondary to completion of protocol. Impression: 1. Pharmacologic (Regadenoson) evaluation 2. Peak pharmacologic ECG with continued nonspecific ST/T wave abnormality. 3. There were no cardiac dysrhythmias pretest, during pharmacologic infusion, or recovery. 4. Nuclear images pending Myocardial perfusion imaging study: Technique: The patient was injected with 15.0 millicuries of technetium 99m Cardiolite and subsequently rest SPECT Cardiolite nuclear imaging was obtained in the horizontal long, vertical long, and short axis views. The patient underwent pharmacologic (Regadenoson) evaluation with a peak heart rate of 74 beats per minute (51% percent predicted maximal heart rate) and a peak blood pressure of 118/62 mmHg. The patient was injected with 45.0 millicuries of technetium 99m Cardiolite and subsequently stress SPECT Cardiolite nuclear imaging was obtained in the horizontal long, vertical long, and short axis views. A gated Cardiolite study at peak stress was obtained. Interpretation: Rest and stress SPECT Cardiolite nuclear imaging status post realignment, normalization, and attenuation correction demonstrate, following stress, the appearance of an area of diminished myocardial fusion/tracer uptake in portions of the basal towards mid inferolateral segments. There is end systolic thickening and brightening. The gated Cardiolite study demonstrates myocardial thickening and inward wall motion. The reported LVEF is 70%. Impression: 1. Rest and stress SPECT her nuclear imaging demonstrate myocardial perfusion changes potentially compatible with an area of stress-induced myocardial ischemia involving portions of the basal to mid inferolateral segments, however, an element of shifting soft tissue attenuation/artifact cannot necessarily be excluded. 2. The gated Cardiolite study reports an LVEF of 70% Radiography Diagnostic Testing: Radiology Impression Cervical Spine CT 05/10/21 17:18 IMPRESSION: Essentially normal unenhanced CT examination of the cervical spine. Note: MRI is more sensitive than CT in detecting cord injury, ligamentous injury and epidural hematoma. If there is continued clinical concern for any of these entities, MRI should be considered. Electronically Signed: Armin Berger DO at 18:17 EDT Tel [phone], Service support , Brain CT 05/10/21 17:55 IMPRESSION: No acute intracranial or calvarial abnormality. There is no major interval change. Electronically Signed: Armin Berger DO at 18:15 EDT Tel [phone], Service support , Echocardiogram 05/11/21 05:55 Interpretation Summary The study was technically difficult. Contrast injection was performed. Based upon the 2D echocardiographic and contrast enhanced images obtained there appears to be grossly normal left ventricular size, wall motion, and systolic function. The estimated ejection fraction is 60 %. Trivial mitral valve insufficiency. Trivial tricuspid valve insufficiency. Trivial aortic valve insufficiency. Epicardial fat. Unable to estimate RV systolic pressure/pulmonary artery pressure due to technically difficult study. Diastolic function is indeterminate. Ordering Physician: Andres Crowell Referring Physician: Tomás Spaulding Performed By: Bjorn Harrell RCS
[2021-05-11] MEDS: Pantoprazole Sodium 40 MG Tablet PO (18:38)
[2021-05-11] MEDS: Mag Hydrox/Al Hydrox/Simeth 30 ML UDC PO (18:38)
[2021-05-11] MEDS: Atorvastatin Calcium 10 MG Tablet PO (21:01)
[2021-05-11] MEDS: 0.9% Saline Lock 10 ML Syringe IV (21:01)
[2021-05-12] VITALS (18 sets, daily range): BP systolic 106–135; BP diastolic 49–73; PULSE 46–68; RESP 16–18; TEMP 36.6–37.3; O2SAT 94–99
[2021-05-12] MEDS: amLODIPine 10 MG Tablet PO (06:23)
[2021-05-12] MEDS: Aspirin 81 MG TAB.CHEW PO (06:23)
[2021-05-12] MEDS: hydroCHLOROthiazide 12.5mg 12.5 MG PO (06:23)
--- NOTE | 2021-05-12 07:50 | PCM.PN.HOSP ---
Subjective Subjective Patient underwent a nuclear stress test the day prior which came back positive for stress-induced ischemia. Seen in consultation by cardiology plans for patient to undergo left heart catheterization with possible intervention if warranted Objective Data Objective Data Vital Signs: Vital Signs Temp Pulse Resp BP Pulse Ox 98.2 F 57 L 18 124/61 H 94 05/12/21 06:19 05/12/21 06:19 05/12/21 06:19 05/12/21 06:19 05/12/21 06:19 Oxygen Delivery Method Room Air Weight: 98.9 kg Body Mass Index (BMI) 33.4 Intake & Output: Intake and Output for Last 24 Hours 05/10/21 05/11/21 05/12/21 23:59 23:59 23:59 Intake Total 120 / 120 360 / 360 Output Total 500 / 500 475 / 475 700 / 700 Balance -380 / -380 -115 / -115 -700 / -700 Medical Nutrition Assessment Dietitian: Nutrition Therapy Diagnosis Start: 05/11/21 10:55 Freq: Status: Active Protocol: Document 05/11/21 15:11 RMA (Rec: 05/11/21 15:11 RMA [id number]) Nutrition Malnutrition Evidence of Malnutrition Exists No Intake Problem Decreased Nutrient Needs (specify) Etiology for sodium related to edema/ fluid retention Signs/Symptoms as evidenced by BLLE 1+ pitting edema Status Active Problem Recommendation Dietitian Recommendations/Changes Cardiac; sodium-restricted diet. ONS as needed if PO fails at meals, will defer for now. Lab / Micro Data Result Diagrams: 05/11/21 06:35 05/10/21 17:41 Labs: Laboratory Results - last 24 hr 05/11/21 06:35: Triglycerides 134, Cholesterol 141, LDL Cholesterol 84, VLDL Cholesterol 27, HDL Cholesterol 30 L, TSH 0.33 L Radiography Diagnostic Testing: Radiology Impression Echocardiogram 05/11/21 05:55 Interpretation Summary The study was technically difficult. Contrast injection was performed. Based upon the 2D echocardiographic and contrast enhanced images obtained there appears to be grossly normal left ventricular size, wall motion, and systolic function. The estimated ejection fraction is 60 %. Trivial mitral valve insufficiency. Trivial tricuspid valve insufficiency. Trivial aortic valve insufficiency. Epicardial fat. Unable to estimate RV systolic pressure/pulmonary artery pressure due to technically difficult study. Diastolic function is indeterminate. Ordering Physician: Andres Crowell Referring Physician: Tomás Spaulding Performed By: Bjorn Harrell RCS Physical Exam Narrative GENERAL: cooperative HEENT: Left periorbital laceration EYES; Anicteric, Normal Conjunctiva NECK; supple, normal thyroid, RESPIRATORY: Diminished to auscultation CARDIOVASCULAR: Regular S1 S2, GI: soft, normoactive bowel sounds, : No Renal angle tenderness; EXTREMITIES: No edema, no clubbing, MUSCULOSKELETAL: no muscle waisting NEURO: Awake; no lateralizing signs. SKIN: No Rash PSYCH; Flat affect Assessment & Plan Assessment/Plan (1) Near syncope: (2) Fall: QUALIFIERS: Encounter type: initial encounter Qualified Code(s): W19.XXXA - Unspecified fall, initial encounter PLAN: Patient is a 75-year-old gentleman recently discharged from the hospital after being admitted for toxic encephalopathy from accidental ingestion of prescription drugs who presented to the emergency department following a near syncope with fall. Patient was found to have elevated troponin. Admitted to monitored bed for subsequent management 1. Near syncope with fall ?Patient did sustain laceration over the left supraorbital region. Admitted to monitored bed requested for every shift orthostatic check also requested for PT OT 2. Elevated troponin secondary to acute NSTEMI Admitted to a monitored bed subsequent evaluation with a 2D echo and nuclear stress test ordered -05/12/2021; patient nuclear stress test performed the day prior came back positive for stress-induced ischemia patient was seen in consultation by cardiology. 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 3. Anemia - Secondary to chronic disorder monitoring H&H and transfuse if patient becomes symptomatic or hemoglobin falls below 7 4. Hypertension - Blood pressure controlled, home medications continued with dose adjustment as needed 5. Chronic back pain ?As a result of chronic lumbar disc degeneration disease. Pain meds as needed also requested for PT OT 6. Obesity with BMI of 33.4 ?Weight loss advised 7. Dyslipidemia -Patient is on statin therapy, continued at home dose 8. Physical deconditioning - Requested for PT OT eval and social media marketing analyst to assist with discharge planning 9. DVT prophylaxis - On enoxaparin Charges/Coding Visit Charges Inpatient E&M: 47478 Subs Hosp L2
--- NOTE | 2021-05-12 10:02 | CASEMGMT ---
DEVANTE spoke with Briana at [facility]. They can accept patient. DEVANTE let her know that SW has to get the pre-cert for [place]. DEVANTE completed paperwork and faxed all clinicals to [facility] which is the [facility] that handles pre-certs for [place]. Await pre-cert. Plan: d/c to [facility] pending pre-cert and patient being medically ready. Jo Ann Rohca SUPERVISOR LANDSCAPE LULA
--- NOTE | 2021-05-12 10:05 | PN.CARD_ITS ---
Subjective Subjective The patient underwent diagnostic cardiac catheterization earlier this a.m. he appeared to tolerate the procedure without any acute adverse events. He was found to have angiographically significant CAD. He did proceed with PCI under the direction of Dr. Hughes. Objective Data Vital Signs: Vital Signs Temp Pulse Resp BP Pulse Ox 98.2 F 57 L 18 124/61 H 94 05/12/21 06:19 05/12/21 07:00 05/12/21 06:19 05/12/21 06:19 05/12/21 06:19 Oxygen Delivery Method Room Air Weight: 218 lb 0.595 oz Body Mass Index (BMI) 33.4 Intake & Output: Intake and Output for Last 24 Hours 05/10/21 05/11/21 05/12/21 23:59 23:59 23:59 Intake Total 120 / 120 360 / 360 Output Total 500 / 500 475 / 475 700 / 700 Balance -380 / -380 -115 / -115 -700 / -700 Lab / Micro Data Result Diagrams: 05/11/21 06:35 05/10/21 17:41 Cardiology Labs/Tests Rhythm: Sinus rhythm Radiography Diagnostic Testing: Radiology Impression Echocardiogram 05/11/21 05:55 Interpretation Summary The study was technically difficult. Contrast injection was performed. Based upon the 2D echocardiographic and contrast enhanced images obtained there appears to be grossly normal left ventricular size, wall motion, and systolic function. The estimated ejection fraction is 60 %. Trivial mitral valve insufficiency. Trivial tricuspid valve insufficiency. Trivial aortic valve insufficiency. Epicardial fat. Unable to estimate RV systolic pressure/pulmonary artery pressure due to technically difficult study. Diastolic function is indeterminate. Ordering Physician: Andres Crowell Referring Physician: Tomás Spaulding Performed By: Bojrn Harrell RCS Physical Exam Const alert, oriented x3 and no apparent distress Orientation / Consciousness: awake HEENT normocephalic and hearing grossly normal bilaterally Eyes PERRL, EOMs intact bilaterally and conjunctivae normal Neck full ROM, supple and no JVD Chest inspection of chest normal Resp clear to auscultation bilaterally Cardio regular rate, regular rhythm, S1 normal heart sound and S2 normal heart sound GI normal to inspection, nondistended, normoactive bowel sounds Extremity no pedal edema Skin Skin Narrative: Left forehead laceration Neuro oriented x3, moves all extremities, no focal motor deficits and no sensory def icits noted Psych mental status grossly normal Assessment & Plan Assessment/Plan (1) Elevated troponin: PLAN: He does have an elevated troponin I level. It appeared compatible with a non-ST segment elevation AR. Based upon his abnormal pharmacologic stress nuclear imaging study he did proce ed with further evaluation with diagnostic cardiac catheterization. 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 He subsequently proceeded to PCI under the direction of Dr. Hughes where he received PCI to the mid RCA and the distal RCA systems. He will continue medical management. Over time he will need outpatient cardiovascular follow-up. Ideally he would be considered for outpatient cardiac rehabilitation if he is physically able to pursue such a program. (2) Syncope: QUALIFIERS: Syncope type: unspecified Qualified Code(s): R55 - Syncope and collapse PLAN: It is unclear as to whether or not the patient truly lost consciousness. At the moment he has been monitored. Thus far has not been found to have other cardiac dysrhythmias to explain his event. Noninvasive and invasive cardiovascular evaluation as noted. He will continue to be followed. (3) HLD (hyperlipidemia): QUALIFIERS: Hyperlipidemia type: unspecified Qualified Code(s): E78.5 - Hyperlipidemia, unspecified PLAN: He will continue risk factor modification medical therapy as deemed appropriate. (4) Hypertension: QUALIFIERS: Hypertension type: unspecified Qualified Code(s): I10 - Essential (primary) hypertension PLAN: His blood pressure does need to be monitored with his medicines being adjusted to avoid significant hypotension or hypertension. Addt'l Comments The patient's case has been discussed earlier this day with the patient, his daughter, and his granddaughter. This note was generated using a voice recognition system and there may be incorrect words, spelling or punctuation that were not noted when reviewing the office note prior to saving.
--- NOTE | 2021-05-12 10:15 | EKG12_ITS ---
Test Reason : MORNING EKG Blood Pressure : / mmHG Vent. Rate : 068 BPM Atrial Rate : 068 BPM P-R Int : 316 ms QRS Dur : 078 ms QT Int : 420 ms P-R-T Axes : 098 027 078 degrees QTc Int : 446 ms Sinus rhythm with 1st degree A-V block ST & T wave abnormality, consider anterior ischemia Abnormal ECG Confirmed by PRITI DUMONT, RASHEED ([id number]), primer expeditor and drier VAUGHN KENT ([id number]) on 05/17/2021 9:00:39 AM Referred By: TITA Confirmed By:RASHEED MARCOS MD
--- NOTE | 2021-05-12 10:21 | CL.D_ITS ---
Patient Name: KERRY VALDES Study Date: 05/12/2021 Performing: Richmond Nguyen MD Ht: 68.89 inches 175 cm : 1945 Wt: 218.26 lbs 99 kg Age: 75 Gender: male BSA: 2.14 PROCEDURE(S) PERFORMED TH33-GGP/COR/LV DS35-VQA W OR WO PTCA, SINGLE CORONARY ARTERY CLINICAL PROFILE AND INDICATIONS Indications: ACS > 24 hrs, Suspected CAD Heart Failure: None Stress/Imaging Stress/Image Study Performed: No Angina Classification Anginal Classification w/in 2 Weeks: No symptoms CAD Presentations: Non-STEMI. Other: Syncope CONCLUSIONS Elevated Left Ventricular End Diastolic Pressure Normal LV size, wall motion,and systolic function LVEF: by LV gram 60 % [place] Multivessel CAD Comment: Under the direction of Dr. Hughes the patient proceeded to RCA PCI. 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 RECOMMENDATIONS Risk factor modification Medical therapy Referred for immediate PCI DESCRIPTION OF PROCEDURE The patient arrived to the procedure lab. The risks and benefits of the procedure as well as a full d escription of our services here and current unavailability of surgical backup were fully explained to the patient and/or their significant other prior to the catheterization. The Timeout was completed, verifying the correct patient and procedure. The patient's procedural site was prepped and draped in the usual fashion. Local anesthetic was given subcutaneously to right groin region with Lidocaine 2%. Using a modified Seldinger technique, arterial access was obtained via the right femoral artery, a 4 Fr sheath was inserted Left Coronary Artery selective angiography was performed in multiple views us ing a 4 Fr. JL5 catheter. Right Coronary Artery selective angiography was then performed in multiple views using a 4 Fr. 3DRC catheter. Left Ventriculography was performed in ARIAS projection using a 4 Fr . Pigtail catheter. LV to AO pullback pressures were then recorded.The arterial sheath was left in to be pulled in the holding area CORONARY ANGIOGRAPHY DOMINANCE: Right Dominant LEFT HEART ASSESSMENT Left Ventricular Ejection Fraction: by LV Gram 60 % Normal LV wall motion Elevated Left Ventricular End Diastolic Pressure LVEDP: 28 mmHg LEFT MAIN: Large Long Vessel, Mild calcification, Mild luminal irregularities LEFT ANTERIOR DESCENDING ARTERY: PROX LAD: Moderate calcification, diffuse: eccentric: 25 % Stenosis CIRCUMFLEX ARTERY: LCX: demonstrates angiographic findings c/w being in the distribution of a large O M1 vessel., Mild luminal irregularities RIGHT CORONARY ARTERY: Mild luminal irregularities MID RCA: 50 - 75 % Stenosis DISTAL RCA: pre trifurcation: 95 % Stenosis AORTIC ROOT: Angiographically normal COMPLICATIONS No Complications PROCEDURE MEDICATIONS Versed 1 mg IV Versed 1 mg IV Oxygen: 2 L/min via nasal cannula Brilinta 180 mg PO @ 05/12/2021 08:27:41 Heparin 8000 unit(s) IV 05/12/2021 09:21:49 Heparin 2000 unit(s) IV 05/12/2021 09:43:47 SUMMARY OF HEMODYNAMIC DATA Time AIR REST ECG 07:49:40 AO 154/50 (86) SA 08:00:49 LV 170/7, 35 08:21:38 LV 167/3, 28 08:21:45 LV 175/2, 33 08:22:31 LVp 165/10, 32 08:22:41 AOp 173/71 (110) 08:22:46 Signed By Richmond Nguyen MD On 05/12/2021 10:20:14 Richmond Nguyen MD
--- NOTE | 2021-05-12 10:28 | CASEMGMT ---
Message left for Sultana at [facility] to notify that plan is for pt to go to [facility] at discharge and precert is pending. Pt was active with [facility] for SN, PT/OT, aide. Jose LAYTON CM
--- NOTE | 2021-05-12 10:58 | CRPHASE1_ITS ---
Patient Communication PHII Cardiac Rehab Discussed with Patient:: Yes Guide to Cardiac Rehab Given to Patient:: Yes Cardiac Rehab Facility Choice List Given to Patient:: Yes Choice Program [facility] PHII:: Communication Given to CR Social Media Specialist:: Casimiro Hughes Refer Phase II Cardiac Rehab:: Yes Sessions:: 36 sessions - 3 days/wk, 12 weeks Cardiac Rehabilitation Info Cardiac Rehabilitation Program Information: Cardiac Rehabilitation is important for patients like you who are recovering from a heart problem. Cardiac rehabilitation programs are recognized as integral to the continued care of the patient with coronary heart disease. The cardiac rehabilitation program is designed to optimize a patient's physical, psychological, and social functioning. Health health care analyst work in cardiac rehabilitation programs and assist you with getting the treatments you need to get stronger and healthier - like exercise, healthy eating habits, and med ications. Cardiac rehabilitation has been show to help people with heart problems live longer and have better life enjoyment than people who do not go to cardiac rehabilitation. Please contact the Cardiac Rehabilitation Program at [facility] at in two weeks if you have not heard from them.
--- NOTE | 2021-05-12 10:58 | CRPH1.INSTRU ---
General Education CAD and cardiac anatomy and function:: Patient communicates acknowledgment, Family communicates acknowledgment, Needs reinforcement Explanation of diagnoses and procedures:: Patient communicates acknowledgment, Family communicates acknowledgment, Needs reinforcement Sign/Symptoms of CO:: Patient communicates acknowledgment, Family communicates acknowledgment, Needs reinforcement Antiplatelet therapy: Patient communicates acknowledgment, Family communicates acknowledgment, Needs reinforcement Proper use of NTG-SL: Patient communicates acknowledgment, Family communicates acknowledgment, Needs reinforcement Emergency procedures and activation of EMS: Patient communicates acknowledgment, Family communicates acknowledgment, Needs reinforcement Compliance of all prescribed medications: Patient communicates acknowledgment, Family communicates acknowledgment, Needs reinforcement Smoking Patient Nicotine/Smoking Risk Factors Are:: Cigarettes Recommendations Include:: Previous smoker; encourage continued cessation Nicotine/Smoking Response Code:: Patient communicates acknowledgment, Family communicates acknowledgment, Needs reinforcement Dyslipidemia Patient Dyslipidemia Risk Factors Are:: Total Cholesterol, Triglycerides, HDL, LDL Recommendations Include:: Lipid profile not available Dyslipidemia Response Code:: Patient communicates acknowledgment, Family communicates acknowledgment, Needs reinforcement Overweight/Obesity Patient Overweight/Obesity Risk Factors Are:: Obesity - > or = 30 Recommendations Include:: Weight loss of 5-10%, Reduced calorie diet, Exercise 5-7 times/week Overweight/Obesity:: Patient communicates acknowledgment, Family communicates acknowledgment, Needs reinforcement Hypertension Recommendations Include:: BP <130/80 if diabetic, DASH dietary guidelines, Decrease/maintain normal body weight, Moderation of ETOH Hypertension:: Patient communicates acknowledgment, Family communicates acknowledgment, Needs reinforcement Heart Disease Recommendations Include:: Educated family members of their risk Heart Disease Response Code:: Patient communicates acknowledgment, Family communicates acknowledgment, Needs reinforcement Diabetes Patient Diabetes Risk Factors Are:: Elevated blood sugars Recommendations Include:: Maintain fasting blood sugars 70-110 md/dL, Maintain HgbA1c of 6% or less, Monitor blood sugar as prescribed, Diabetic dietary guidelines, Decrease/maintain body weight Diabetes:: Patient communicates acknowledgment, Family communicates acknowledgment, Needs reinforcement Sedentary Patient Sedentary Risk Factors Are:: Lack of regular exercise Recommendations Include:: Aerobic exercise 5-7 times/week for 20-30 minutes continuously, Benefits of regular exercise, Discussed home walking program, Monitored Outpatient Cardiac Rehab Sedentary Response Code:: Patient communicates acknowledgment, Family communicates acknowledgment, Needs reinforcement
--- NOTE | 2021-05-12 11:24 | CL.I_ITS ---
Patient Name: KERRY VALDES Study Date: 05/12/2021 Performing: Debbi Hughes MD Ht: 68.89 inches 175 cm : 1945 Wt: 218.26 lbs 99 kg Age: 75 Gender: male BSA: 2.14 PROCEDURE(S) PERFORMED AG91-YNE W OR WO PTCA, SINGLE CORONARY ARTERY CLINICAL PROFILE AND CO-MORBIDITIES Indications: ACS > 24 hrs, Suspected CAD Heart Failure: None Stress/Imaging Stress/Image Study Performed: No Angina Classification Anginal Classification w/in 2 Weeks: No symptoms CAD Presentations: Non-STEMI. Other: Syncope CONCLUSIONS Successful PCI of mid RCA and distal RCA with DANISH RECOMMENDATIONS DESCRIPTION OF PROCEDURE The patient arrived to the procedure lab. The risks and benefits of the procedure as well as a full d escription of our services here and current unavailability of surgical backup were fully explained to the patient and/or their significant other prior to the catheterization. The Timeout was completed, verifying the correct patient and procedure. The patient's procedural site was prepped and draped in the usual fashion. Local anesthetic was given subcutaneously to right groin region with Lidocaine 2% Using a modified Seldinger technique,arterial access was obtained via the right femoral artery, a 4Fr sheath was inserted Left Coronary Artery selective angiography was performed in multiple views using a 4 Fr. JL5 catheter. Right Coronary Artery selective angiography was then performed in multiple vie ws using a 4 Fr. 3DRC catheter. Left Ventriculography was performed in ARAIS projection using a 4 Fr. P igtail catheter. LV to AO pullback pressures were then recorded.The images were reviewed and options discussed. A decision was then made to proceed with an Intervention, IVUS or other adjunc t procedure. Arterial sheath was exchanged for a 6 Fr Sheath. AL1 Guide catheter was inserted and engaged into the RCA. Arterial sheath was exchanged for a 6 Fr Sheath 70cm AL 1 Guide catheter was inserted and e ngaged into the RCA. BMW Guide wire was advanced to the RCA. Emerge 2.5x8 Balloon catheter was insert ed. Balloon catheter was advanced across lesion in the right coronary, distal. PTCA balloon inflated at 6 atms for 8 secs. PTCA balloon inflated at 10 atms for 12 secs. Angiogram performed post balloon dilatation. Relmada Therapeuticsiro 3x18 Drug Eluting stent was inserted. Drug Eluting stent was advanced across the l esion in the right coronary, distal. Angiogram performed post stent deployment. Orsiro 4x13 Drug Elut ing stent was inserted. Drug Eluting stent was advanced across the lesion in the right coronary, mid. Angiogram performed post stent deployment. The arterial sheath was left in to be pulled in the hol ding area. The arterial sheath was pulled and manual compression applied until hemostasis is achieved. INTERVENTION INFORMATION LESION SITE: RCA (Distal) Lesion Complexity: High/C, chronic total occlusion: No, lesion at bifurcation: Yes, thrombus present: No, lesion length: 12 mm, culprit lesion: Yes, Previously treated lesion: No Pre Stenosis: 95 % Pre intervention FLORESITA flow: 3 PROCEDURE: Drug Eluting Stent with pre dilatation. Post Stenosis: 0 % Post intervention FLORESITA flow: 3 Lesion Devices: Waggoner .014 BMW Red Jacket Straight 190cm Medtronic 6 Fr AL1.0 100cm Guide Catheter Jerad Sci EMERGE MR 2.50x08 BALLOON Biotronik Orsiro MR DANISH 3.0x18 LESION SITE: RCA (Mid) Lesion Complexity: High/C, chronic total occlusion: No, lesion at bifurcation: No, thrombus present: No, lesion length: 11 mm, culprit lesion: Yes, Previously treated lesion: No Pre Stenosis: 70 % Pre intervention FLORESITA flow: 3 PROCEDURE: Drug Eluting Stent Post Stenosis: 0 % Post intervention FLORESITA flow: 3 Lesion Devices: Waggoner .014 BMW Red Jacket Straight 190cm Medtronic 6 Fr AL1.0 100cm Guide Catheter Biotronik Orsiro MR DANISH 4.0x13 COMPLICATIONS No Complications PROCEDURE MEDICATIONS Versed 1 mg IV Versed 1 mg IV Oxygen: 2 L/min via nasal cannula Brilinta 180 mg PO @ 05/12/2021 08:27:41 Heparin 8000 unit(s) IV 05/12/2021 09:21:49 Heparin 2000 unit(s) IV 05/12/2021 09:43:47 SUMMARY OF HEMODYNAMIC DATA Time AIR REST ECG 07:49:40 AO 154/50 (86) SA 08:00:49 LV 170/7, 35 08:21:38 LV 167/3, 28 08:21:45 LV 175/2, 33 08:22:31 LVp 165/10, 32 08:22:41 AOp 173/71 (110) 08:22:46 RM AIR REST 10:20:08 Signed By Debbi Hughes MD On 05/12/2021 11:23:09 Debbi Hughes MD
--- NOTE | 2021-05-12 13:54 | CASEMGMT ---
DEVANTE follow up with [facility] and patient's case is still under review for SNF. He said they will fax and call with results. Jo Ann Rocha BEATER MACHINE OPERATOR LULA
--- NOTE | 2021-05-12 15:14 | CASEMGMT ---
Readmission chart review: Pt was admitted 05/04-05/06/21 for AMS and possible accidental overdose of 's meds. After about 2 days the pt became more alert and pt/family declined SNF even though it was recommended by therapy. Pt was sent home with [facility] for SN, PT/OT, aide. Pt does live alone as is in [place] but family states lives close and have cameras set up in home to observe pt. Pt returned to [facility] ED on 05/11/21 for fall at home and lac above eye. Pt admitted for Near syncope, vertigo, fall, NSTEMI. Pt is agreeable to SNF at this time and would like to go to [place] with his . Radha aware and precert started at [place]. CM to follow for any further discharge planning/needs. Jose LAYTON CM
[2021-05-12] MEDS: Pantoprazole Sodium 40 MG Tablet PO (16:55)
[2021-05-12] MEDS: oxyCODONE 5 MG Tablet PO (17:22)
[2021-05-12] MEDS: Carvedilol 6.25 MG Tablet PO (20:15)
[2021-05-12] MEDS: Atorvastatin Calcium 10 MG Tablet PO (20:15)
[2021-05-12] MEDS: TICAGRELOR 90 MG TABLET PO (20:15)
[2021-05-13] VITALS (7 sets, daily range): BP systolic 120–140; BP diastolic 59–64; PULSE 63–69; RESP 18; TEMP 36.3–36.8; O2SAT 94–99
[2021-05-13 07:00] LABS: Hematocrit 32.1 % (40-54); Hemoglobin 10.5 g/dL (13.0-16.5); Mean Corp Hgb Conc 32.7 g/dL (32-36); Mean Corpuscular Hgb 31.2 pg (27.0-32.0); Mean Corpuscular Volume 95.3 fL (80-94); Mean Platelet Vol. 9.7 fl (6.2-12.0); Platelet Count 178 K/mm3 (150-450); RBC Distribution Width CV 13.1 % (11.6-14.6); RBC Distribution Width SD 45.4 fl (35.1-43.9); Red Blood Count 3.37 M/mm3 (4.6-6.2); White Blood Count 7.6 K/mm3 (4.4-11.0)
[2021-05-13 07:31] LABS: ALB/GLOB Ratio 0.9 RATIO (0.9-2.4); AST(SGOT) 27 U/L (15-37); Alanine Aminotransfer ALT/SGPT 33 U/L (16-61); Alkaline Phosphatase 66 U/L (45-117); Anion Gap 8 (5-15); BUN 19 mg/dL (7-18); BUN/Creat Ratio 19.9 RATIO (10-20); Calcium,Total 8.7 mg/dL (8.5-10.1); Chloride 100 mmol/L (98-107); Creatinine, Serum 0.95 mg/dL (0.70-1.30); EST Glomerular Filtration Rate 81 mL/min (>60); Est Glom Filt Rate - Afr Amer 98 mL/min (>60); Estimated Creatinine Clearance 66.15 ml/min; Globulin 3.3 g/dL (2.2-4.2); Glucose 93 mg/dL (74-106); Potassium 3.3 mmol/L (3.5-5.1); Protein, Total 6.3 g/dL (6.4-8.2); Sodium Level 137 mmol/L (136-145)
--- NOTE | 2021-05-13 07:50 | PCM.PN.HOSP ---
Subjective Subjective Patient seen debility uneventful night plan [facility] Objective Data Objective Data Vital Signs: Vital Signs Temp Pulse Resp BP Pulse Ox 98.2 F 64 18 120/64 98 05/13/21 02:05 05/13/21 03:00 05/13/21 02:05 05/13/21 02:05 05/13/21 02:05 Oxygen Flow Rate (L/min) 2 Oxygen Delivery Method Room Air Weight: 98.7 kg Body Mass Index (BMI) 33.4 Intake & Output: Intake and Output for Last 24 Hours 05/11/21 05/12/21 05/13/21 23:59 23:59 23:59 Intake Total 360 / 360 180 / 180 Output Total 475 / 475 1550 / 1900 350 / 350 Balance -115 / -115 -1370 / -1720 -350 / -350 Medical Nutrition Assessment Dietitian: Nutrition Therapy Diagnosis Start: 05/11/21 10:55 Freq: Status: Active Protocol: Document 05/11/21 15:11 RMA (Rec: 05/11/21 15:11 RMA [id number]) Nutrition Malnutrition Evidence of Malnutrition Exists No Intake Problem Decreased Nutrient Needs (specify) Etiology for sodium related to edema/ fluid retention Signs/Symptoms as evidenced by BLLE 1+ pitting edema Status Active Problem Recommendation Dietitian Recommendations/Changes Cardiac; sodium-restricted diet. ONS as needed if PO fails at meals, will defer for now. Lab / Micro Data Result Diagrams: 05/13/21 06:20 05/13/21 06:20 Labs: Laboratory Results - last 24 hr 05/13/21 06:20: WBC 7.6, RBC 3.37 L, Hgb 10.5 L, Hct 32.1 L, MCV 95.3 H, MCH 31.2, MCHC 32.7, RDW Std Deviation 45.4 H, RDW Coeff of Sophie 13.1, Plt Count 178, MPV 9.7 05/13/21 06:20: Sodium 137, Potassium 3.3 L, Chloride 100, Carbon Dioxide 29.0, Anion Gap 8, BUN 19 H, Creatinine 0.95, Estim Creat Clear Calc 66.15, Est GFR (MDRD) Af Amer 98, Est GFR (MDRD) Non-Af 81, BUN/Creatinine Ratio 19.9, Glucose 93, Calcium 8.7, Total Bilirubin 0.90, AST 27, ALT 33, Alkaline Phosphatase 66, Total Protein 6.3 L, Albumin 3.0 L, Globulin 3.3, Albumin/Globulin Ratio 0.9 Physical Exam Narrative GENERAL: cooperative HEENT: Left periorbital laceration EYES; Anicteric, Normal Conjunctiva NECK; supple, normal thyroid, RESPIRATORY: Diminished to auscultation CARDIOVASCULAR: Regular S1 S2, GI: soft, normoactive bowel sounds, : No Renal angle tenderness; EXTREMITIES: No edema, no clubbing, MUSCULOSKELETAL: no muscle waisting NEURO: Awake; no lateralizing signs. SKIN: No Rash PSYCH; Flat affect Assessment & Plan Assessment/Plan (1) Near syncope: (2) Fall: QUALIFIERS: Encounter type: initial encounter Qualified Code(s): W19.XXXA - Unspecified fall, initial encounter PLAN: Patient is a 75-year-old gentleman recently discharged from the hospital after being admitted for toxic encephalopathy from accidental ingestion of prescription drugs who presented to the emergency department following a near syncope with fall. Patient was found to have elevated troponin. Admitted to monitored bed for subsequent management 1. Near syncope with fall ?Patient did sustain laceration over the left supraorbital region. Admitted to monitored bed requested for every shift orthostatic check also requested for PT OT 2. Elevated troponin secondary to acute NSTEMI Admitted to a monitored bed subsequent evaluation with a 2D echo and nuclear stress test ordered -05/12/2021; patient nuclear stress test performed the day prior came back positive for stress-induced ischemia patient was seen in consultation by cardiology. 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 3. Anemia - Secondary to chronic disorder monitoring H&H and transfuse if patient becomes symptomatic or hemoglobin falls below 7 4. Hypertension - Blood pressure controlled, home medications continued with dose adjustment as needed 5. Chronic back pain ?As a result of chronic lumbar disc degeneration disease. Pain meds as needed also requested for PT OT 6. Obesity with BMI of 33.4 ?Weight loss advised 7. Dyslipidemia -Patient is on statin therapy, continued at home dose 8. Physical deconditioning - Requested for PT OT eval and public health social worker to assist with discharge planning 9. DVT prophylaxis - On enoxaparin Charges/Coding Visit Charges Inpatient E&M: 94044 Subs Hosp L2
--- NOTE | 2021-05-13 09:34 | PCM.DC.SUM ---
Providers Date of Admission: 05/11/21 Primary Care Physician: Dr. Jasson England MD Consultations 05/11/21 00:12 Consult: Cardiology Routine Consulting Provider: Richmond Nguyen Reason for Consult: ELEVATED hs-troponin EMERGENT Consult: No MD Notified: Yes Date Notified: 05/10/21 Time Notified: 22:12 Method of Notification: Verbal Comments:: near syncope, informed by ED physician Reason For Visit: NEAR SYNCOPE,VERTIGO, FALL Diagnosis Discharge Diagnosis (1) Near syncope: Status: Acute (2) Fall: Status: Acute Code(s): W19.XXXA - Unspecified fall, initial encounter Qualifiers: Encounter type: initial encounter Qualified Code(s): W19.XXXA - Unspecified fall, initial encounter Medications at Discharge Home Medications amlodipine 10 mg PO DAILY 06/26/17 hydrochlorothiazide 12.5 mg PO DAILY 06/26/17 carvedilol 6.25 mg PO BID 07/01/18 aspirin 81 mg PO DAILY 05/04/21 cyclobenzaprine 10 mg PO TID PRN 05/04/21 ammonium lactate 1 applic TOPICAL DAILY PRN 05/10/21 atorvastatin 40 mg PO QHS #0 tab 05/13/21 oxycodone 5 mg PO Q4H PRN PRN 3 Days #10 tab 05/13/21 ticagrelor [Brilinta] 90 mg PO BID #180 tab 05/13/21 Hospital Course Summary of Care Provided Minutes Spent on Discharge: 35 Hospital Course: Patient is a 75-year-old gentleman recently discharged from the hospital after being admitted for toxic encephalopathy from accidental ingestion of prescription drugs who presented to the emergency department following a near syncope with fall. Patient was found to have elevated troponin. Admitted to monitored bed for subsequent management 1. Near syncope with fall ?Patient did sustain laceration over the left supraorbital region. Admitted to monitored bed requested for every shift orthostatic check also requested for PT OT 2. Elevated troponin secondary to acute NSTEMI Admitted to a monitored bed subsequent evaluation with a 2D echo and nuclear stress test ordered -05/12/2021; patient nuclear stress test performed the day prior came back positive for stress-induced ischemia patient was seen in consultation by cardiology. 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 3. Anemia - Secondary to chronic disorder monitoring H&H and transfuse if patient becomes symptomatic or hemoglobin falls below 7 4. Hypertension - Blood pressure controlled, home medications continued with dose adjustment as needed 5. Chronic back pain ?As a result of chronic lumbar disc degeneration disease. Pain meds as needed also requested for PT OT 6. Obesity with BMI of 33.4 ?Weight loss advised 7. Dyslipidemia -Patient is on statin therapy, continued at home dose 8. Physical deconditioning - Requested for PT OT eval and secondary social studies teacher to assist with discharge planning 9. DVT prophylaxis - On enoxaparin Physical Exam Narrative GENERAL: cooperative HEENT: Left periorbital laceration (healing) EYES; Anicteric, Normal Conjunctiva NECK; supple, normal thyroid, RESPIRATORY: Diminished to auscultation CARDIOVASCULAR: Regular S1 S2, GI: soft, normoactive bowel sounds, : No Renal angle tenderness; EXTREMITIES: No edema, no clubbing, MUSCULOSKELETAL: no muscle waisting NEURO: Awake; no lateralizing signs. SKIN: No Rash PSYCH; Flat affect Medical Records Data Medical Nutrition Assessment Dietitian: Nutrition Therapy Diagnosis Start: 05/11/21 10:55 Freq: Status: Active Protocol: Document 05/11/21 15:11 RMA (Rec: 05/11/21 15:11 RMA [id number]) Nutrition Malnutrition Evidence of Malnutrition Exists No Intake Problem Decreased Nutrient Needs (specify) Etiology for sodium related to edema/ fluid retention Signs/Symptoms as evidenced by BLLE 1+ pitting edema Status Active Problem Recommendation Dietitian Recommendations/Changes Cardiac; sodium-restricted diet. ONS as needed if PO fails at meals, will defer for now. Weight / BMI Weight Weight: 98.7 kg Body Mass Index (BMI) 33.4 ABG / Lab / Microbiology Data Result Diagrams: 05/13/21 06:20 05/13/21 06:20 Laboratory: Laboratory Results - last 24 hr 05/13/21 06:20: WBC 7.6, RBC 3.37 L, Hgb 10.5 L, Hct 32.1 L, MCV 95.3 H, MCH 31.2, MCHC 32.7, RDW Std Deviation 45.4 H, RDW Coeff of Sophie 13.1, Plt Count 178, MPV 9.7 05/13/21 06:20: Sodium 137, Potassium 3.3 L, Chloride 100, Carbon Dioxide 29.0, Anion Gap 8, BUN 19 H, Creatinine 0.95, Estim Creat Clear Calc 66.15, Est GFR (MDRD) Af Amer 98, Est GFR (MDRD) Non-Af 81, BUN/Creatinine Ratio 19.9, Glucose 93, Calcium 8.7, Total Bilirubin 0.90, AST 27, ALT 33, Alkaline Phosphatase 66, Total Protein 6.3 L, Albumin 3.0 L, Globulin 3.3, Albumin/Globulin Ratio 0.9 D/C Instructions Discharge Diet: No restrictions Discharge Activity: Return to Normal Activity Call your doctor if you observe: Fever of 101 or Higher, Shortness of breath, Fainting spells and Chest pain Meaningful Use Info Meaningful Use Diagnoses (Choose all that apply): AMI AMI/Post PCI/Angioplasty Aspirin given w/in 24hrs of arrival?: Yes ASA at discharge?: Yes Antiplatelet Therapy at Discharge:: Yes Statins at discharge?: Yes Jose De Jesus/ARB at discharge?: No Reason Jose De Jesus/ARB not ordered:: Not indicated Beta Daja at discharge?: Yes Done w/ Acute MS measure.: Yes Discharge Plan Admission Admit Date/Time: 05/11/21 13:56 Primary Reason for Your Visit: NSTEMI Attending Provider: Marcelo Boyd Primary Care Provider: Jasson England Consulting Providers: Richmond Nguyen Discharge Orders/Prescriptions Prescriptions: New oxycodone 5 mg Tablet 5 mg PO Q4H PRN PRN (Reason: Pain Score 4-5) 3 Days Qty: 10 RF: 0 Brilinta 90 mg Tablet 90 mg PO BID Qty: 180 RF: 3 Continued amlodipine 5 MG tablet 10 mg PO DAILY RF: 0 hydrochlorothiazide 12.5 MG capsule 12.5 mg PO DAILY RF: 0 carvedilol 3.125 MG tablet 6.25 mg PO BID RF: 0 cyclobenzaprine 10 mg tablet 10 mg PO TID PRN (Reason: Spasms) RF: 0 aspirin 81 mg Capsule 81 mg PO DAILY RF: 0 ammonium lactate 12 % Lotion 1 applic TOPICAL DAILY PRN (Reason: Rash) RF: 0 Changed atorvastatin 10 mg tablet 40 mg PO QHS Qty: 0 RF: 0 Discontinued oxycodone-acetaminophen [Percocet] 5-325 mg tablet 1 tab PO Q8H PRN (Reason: pain) 3 Days Qty: 12 RF: 0 Referrals / Follow Up: Jasson England MD [Primary Care Provider] - Within 2 Weeks Gabriela King NP, LADLE HANDLER-C [Nurse Practitioner] - 06/02/21 3:00 pm Disposition Disposition (needs filled in before D/C Order can be placed[facility] Charges/Coding Visit Charges Inpatient E&M: [id number] Disch Hosp
--- NOTE | 2021-05-13 09:55 | CASEMGMT ---
DEVANTE received a fax and phone call from [facility] with approval for patient. DEVANTE notified physician and patient will go today. DEVANTE spoke with patient and let him know as well as his daughter. His daughter will be in to visit him today around 11. DEVANTE spoke with Briana from [place]. DEVANTE let her know we received approval and patient will come today, but likely not until after lunch. DEVANTE faxed the insurance approval to [place]. Jo Ann COTTON
--- NOTE | 2021-05-13 10:00 | EKG12_ITS ---
Test Reason : Blood Pressure : / mmHG Vent. Rate : 060 BPM Atrial Rate : 060 BPM P-R Int : 328 ms QRS Dur : 102 ms QT Int : 422 ms P-R-T Axes : 085 031 076 degrees QTc Int : 422 ms Sinus rhythm with 1st degree A-V block ST & T wave abnormality, consider anterolateral ischemia Abnormal ECG Confirmed by PRITI DUMONT, RASHEED ([id number]), copy editor VAUGHN KENT ([id number]) on 05/17/2021 9:05:01 AM Referred By: PRITI Confirmed By:RASHEED MARCOS MD
[2021-05-13] MEDS: Carvedilol 6.25 MG Tablet PO (10:10)
[2021-05-13] MEDS: TICAGRELOR 90 MG TABLET PO (10:10)
[2021-05-13] MEDS: Enoxaparin 40 MG/0.4 ML Syringe SC (10:10)
[2021-05-13] MEDS: Aspirin 81 MG TAB.CHEW PO (10:10)
[2021-05-13] MEDS: amLODIPine 10 MG Tablet PO (10:10)
[2021-05-13] MEDS: Pantoprazole Sodium 40 MG Tablet PO (10:10)
[2021-05-13] MEDS: hydroCHLOROthiazide 12.5mg 12.5 MG PO (10:10)
--- NOTE | 2021-05-13 10:12 | PN.CARD_ITS ---
Subjective Subjective The patient is awake and alert. He denies any new acute symptoms or concerns. Objective Data Vital Signs: Vital Signs Temp Pulse Resp BP Pulse Ox 97.4 F L 69 18 140/59 H 99 05/13/21 08:05 05/13/21 08:05 05/13/21 08:05 05/13/21 08:05 05/13/21 08:05 Oxygen Flow Rate (L/min) 2 Oxygen Delivery Method Room Air Weight: 217 lb 9.54 oz Body Mass Index (BMI) 33.4 Intake & Output: Intake and Output for Last 24 Hours 05/11/21 05/12/21 05/13/21 23:59 23:59 23:59 Intake Total 360 / 360 180 / 180 Output Total 475 / 475 1550 / 1900 350 / 350 Balance -115 / -115 -1370 / -1720 -350 / -350 Lab / Micro Data Result Diagrams: 05/13/21 06:20 05/13/21 06:20 Labs: Laboratory Results - last 24 hr 05/13/21 06:20: WBC 7.6, RBC 3.37 L, Hgb 10.5 L, Hct 32.1 L, MCV 95.3 H, MCH 31.2, MCHC 32.7, RDW Std Deviation 45.4 H, RDW Coeff of Sophie 13.1, Plt Count 178, MPV 9.7 05/13/21 06:20: Sodium 137, Potassium 3.3 L, Chloride 100, Carbon Dioxide 29.0, Anion Gap 8, BUN 19 H, Creatinine 0.95, Estim Creat Clear Calc 66.15, Est GFR (MDRD) Af Amer 98, Est GFR (MDRD) Non-Af 81, BUN/Creatinine Ratio 19.9, Glucose 93, Calcium 8.7, Total Bilirubin 0.90, AST 27, ALT 33, Alkaline Phosphatase 66, Total Protein 6.3 L, Albumin 3.0 L, Globulin 3.3, Albumin/Globulin Ratio 0.9 Cardiology Labs/Tests 05/13/21 06:20: WBC 7.6, RBC 3.37 L, Hgb 10.5 L, Hct 32.1 L, MCV 95.3 H, MCH 31.2, MCHC 32.7, Plt Count 178, MPV 9.7 05/13/21 06:20: Sodium 137, Potassium 3.3 L, Chloride 100, Carbon Dioxide 29.0, Anion Gap 8, BUN 19 H, Creatinine 0.95, Est GFR (MDRD) Af Amer 98, Est GFR (MDRD) Non-Af 81, BUN/Creatinine Ratio 19.9, Glucose 93, Calcium 8.7, Total Bilirubin 0.90 Rhythm: Sinus rhythm Physical Exam Const alert, oriented x3 and no apparent distress Orientation / Consciousness: awake HEENT normocephalic and hearing grossly normal bilaterally Eyes PERRL, EOMs intact bilaterally and conjunctivae normal Neck full ROM, supple and no JVD Chest inspection of chest normal Resp clear to auscultation bilaterally Cardio regular rate, regular rhythm, S1 normal heart sound and S2 normal heart sound GI normal to inspection, nondistended, normoactive bowel sounds Extremity no pedal edema Peripheral Pulses: Yes femoral pulses present right (Right inguinal area ecchymoses; no bruising; no hematoma) 2+ Skin Skin Narrative: Left forehead laceration Neuro oriented x3, moves all extremities, no focal motor deficits and no sensory deficits noted Psych mental status grossly normal Assessment & Plan Assessment/Plan (1) Elevated troponin: PLAN: He does have an elevated troponin I level. It appeared compatible with a non-ST segment elevation AK. Based upon his abnormal pharmacologic stress nuclear imaging study he did proceed with further evaluation with diagnostic cardiac catheterization. 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 He subsequently proceeded to PCI under the direction of Dr. Hughes where he received PCI to the mid RCA and the distal RCA systems. He will continue medical management. Over time he will need outpatient cardiovascular follow-up. Ideally he would be considered for outpatient cardiac rehabilitation if he is physically able to pursue such a program. (2) Syncope: QUALIFIERS: Syncope type: unspecified Qualified Code(s): R55 - Syncope and collapse PLAN: It is unclear as to whether or not the patient truly lost conscio usness. At the moment he has been monitored. Thus far has not been found to have other cardiac dysrhythmias to explain his event. Noninvasive and invasive cardiovascular evaluation as noted. He will continue to be followed. (3) HLD (hyperlipidemia): QUALIFIERS: Hyperlipidemia type: unspecified Qualified Code(s): E78.5 - Hyperlipidemia, unspecified PLAN: He will continue risk factor modification medical therapy as deemed appropriate. (4) Hypertension: QUALIFIERS: Hypertension type: unspecified Qualified Code(s): I10 - Essential (primary) hypertension PLAN: His blood pressure does need to be monitored with his medicines being adjusted to avoid significant hypotension or hypertension. Addt'l Comments Overall, at the present time, the patient will continue cardiovascular medical therapy. He will be asked to have future outpatient cardiovascular follow-up and outpatient cardiac rehabilitation as he is physically able. The patient's case has been discussed and reviewed with Dr. Boyd. This note was generated using a voice recognition system and there may be incorrect words, spelling or punctuation that were not noted when reviewing the office note prior to saving.
--- NOTE | 2021-05-13 11:41 | PCM.TXEXTCAR ---
Diet 05/12/21 13:23 Diet: Cardiac - Heart Healthy Food consistency:: Regular Liquid Consistency:: Regular/Thin Dietary Modifications:: Sodium Restricted Is pt able to select menu?: No Wound(s) LEFT EYEBROW: Wound Type: Laceration puncture heart cath: Wound Type: Puncture Therapies Physical Therapy: Eval and Treat Occupational Therapy: Eval and Treat Problem/Diagnosis (1) Near syncope: Status: Acute (2) Fall: Status: Acute Allergies/Procedures Done in Hospital Allergies No Known Allergies Allergy (Verified 05/10/21 16:02) Type of Care/Length of Stay Estimated LOS: Convalescent Care Less Than 30 days Type of Care Needed: Skilled Rehab Potential: Good Prognosis: Good Additional Orders/Day of Discharge Day of Discharge: 05/13/21 Dietary and Speech Recommendations Dietitian Recommendations/Changes: Cardiac; sodium-restricted diet. ONS as needed if PO fails at meals, will defer for now. Discharge Plan Admission Admit Date/Time: 05/11/21 13:56 Primary Reason for Your Visit: NSTEMI Attending Provider: Marcelo Boyd Primary Care Provider: Jasson England Consulting Providers: Richmond Nguyen Discharge Orders/Prescriptions Prescriptions: New oxycodone 5 mg Tablet 5 mg PO Q4H PRN PRN (Reason: Pain Score 4-5) 3 Days Qty: 10 RF: 0 Brilinta 90 mg Tablet 90 mg PO BID Qty: 180 RF: 3 Continued amlodipine 5 MG tablet 10 mg PO DAILY RF: 0 hydrochlorothiazide 12.5 MG capsule 12.5 mg PO DAILY RF: 0 carvedilol 3.125 MG tablet 6.25 mg PO BID RF: 0 cyclobenzaprine 10 mg tablet 10 mg PO TID PRN (Reason: Spasms) RF: 0 aspirin 81 mg Capsule 81 mg PO DAILY RF: 0 ammonium lactate 12 % Lotion 1 applic TOPICAL DAILY PRN (Reason: Rash) RF: 0 Changed atorvastatin 10 mg tablet 40 mg PO QHS Qty: 0 RF: 0 Discontinued oxycodone-acetaminophen [Percocet] 5-325 mg tablet 1 tab PO Q8H PRN (Reason: pain) 3 Days Qty: 12 RF: 0 Referrals / Follow Up: Jasson England MD [Primary Care Provider] - Within 2 Weeks Gabriela King NP, ASSISTANT GOLF COURSE SUPERINTENDENT-C [Nurse Practitioner] - 06/02/21 3:00 pm Disposition Disposition (needs filled in before D/C Order can be placed): [facility]
--- NOTE | 2021-05-13 11:47 | PHA.DC.MR ---
Pharmacy Service has performed discharge medication reconciliation for this patient. The patient's discharge medication list was reviewed for discrepancies and discrepancies were resolved. Home Medications amlodipine 10 mg PO DAILY 06/26/17 hydrochlorothiazide 12.5 mg PO DAILY 06/26/17 carvedilol 6.25 mg PO BID 07/01/18 aspirin 81 mg PO DAILY 05/04/21 cyclobenzaprine 10 mg PO TID PRN 05/04/21 ammonium lactate 1 applic TOPICAL DAILY PRN 05/10/21 atorvastatin 40 mg PO QHS #0 tab 05/13/21 oxycodone 5 mg PO Q4H PRN PRN 3 Days #10 tab 05/13/21 ticagrelor [Brilinta] 90 mg PO BID #180 tab 05/13/21
--- NOTE | 2021-05-13 12:20 | CASEMGMT ---
DEVANTE faxed orders and negative COVID test to [facility]. DEVANTE arranged for patient to get picked up at 2p via cot. DEVANTE called [facility] and spoke with Aubrie as Briana was out of the office. SW let her know patient will get picked up at 2p. DEVANTE notified RN and paralegal secretary. SW will let patient know, but he was getting patient care. DEVANTE completed a convalescent on [facility]. Plan: d/c to [facility] under skilled level of care on a convalescent stay. [facility] transported via cot. Jo Ann Rocha [employer] TURBINE ASSEMBLER LULA
--- NOTE | 2021-05-13 12:37 | NURSING ---
Report called to [facility] for pt d/c to facility.
[2021-05-13] MEDS: oxyCODONE 5 MG Tablet PO (13:30)
[2021-05-13] MEDS: Acetaminophen 325 MG Tablet 650 MG PO (13:30)
== END 2021-05-13 14:31 | disposition skilled nursing facility (03) | DRG 247 ==
LOC: ED 17:48 → PCU 21:13
PROVIDERS: Specialist; Admitting Provider Internal Medicine; Emergency Provider Emergency Medicine; PCP Family Medicine; Visit Provider Internal Medicine
DX: I21.4 Non-ST elevation (NSTEMI) myocardial infarction (principal); R55 Syncope and collapse; S01.112A Laceration without foreign body of left eyelid and periocular area, initial encounter; W19.XXXA Unspecified fall, initial encounter; M54.30 Sciatica, unspecified side; M51.36 Other intervertebral disc degeneration, lumbar region; G20 Parkinson's disease; K21.9 Gastro-esophageal reflux disease without esophagitis; I12.9 Hypertensive chronic kidney disease with stage 1 through stage 4 chronic kidney disease, or unspecified chronic kidney disease; N18.31 Chronic kidney disease, stage 3a; E11.22 Type 2 diabetes mellitus with diabetic chronic kidney disease; G89.29 Other chronic pain; E66.9 Obesity, unspecified; E78.5 Hyperlipidemia, unspecified; I44.0 Atrioventricular block, first degree; I25.10 Atherosclerotic heart disease of native coronary artery without angina pectoris; D63.8 Anemia in other chronic diseases classified elsewhere; Y93.9 Activity, unspecified; Y92.9 Unspecified place or not applicable; Y99.9 Unspecified external cause status; Z79.82 Long term (current) use of aspirin; Z87.891 Personal history of nicotine dependence; Z79.899 Other long term (current) drug therapy; Z68.34 Body mass index [BMI] 34.0-34.9, adult
CPT/HCPCS: 36415; 70450; 72125; 78452; 80048; 80053; 80061; 81001; 82550; 83735; 84443; 84484; 85025; 85027; 87426; 92610; 92928; 93005; 93017; 93306; 93458; 94640; 97162; 97166; 97802; 99152; 99153; 99251; 99285; A9500; C1874; J7040; Q9957; Q9967; A4216; C1725; C1769; C1887; C1894; C8929; C9600; G0463; J1940; J2785; J3490

== ENCOUNTER 2021-05-18 15:33 | Emergency (ER) | payer MEDICARE, SELFPAY ==
[2021-05-18 15:34] VITALS: BP 112/66; PULSE 62; RESP 18; TEMP 36.7; O2SAT 96; BMI 30.7
--- NOTE | 2021-05-18 16:03 | CT_ITS ---
STUDY: CT BRAIN WITHOUT CONTRAST REASON FOR EXAM: Male, 75 years old. Head injury RADIATION DOSAGE (If Supplied By Facility): CTDIvol = ( 44.99 ) mGy, DLP = ( 1693.46 ) mGycm TECHNIQUE: Transaxial CT imaging of the brain was performed without administration of intravenous contrast material. Individualized dose optimization techniques were used for this CT. COMPARISON: 05/10/2021 FINDINGS: Normal soft tissue structures. Normal calvarium. Slightly prominent ventricles and extra-axial spaces with atrophy. Normal white matter tracts of the cerebral hemispheres. Normal basal ganglia and thalami. Normal brainstem. Normal cerebellum. There is no intracranial hemorrhage. There are no findings of an acute ischemic infarction. Normal visualized paranasal sinuses. CT/Brain/Head without Contrast IMPRESSION: No acute intracranial pathology of the brain. Electronically Signed: Refugio Resendez DO at 18:02 EDT Tel [phone], Service support ,
--- NOTE | 2021-05-18 16:03 | EKG12_ITS ---
Test Reason : SYNCOPE Blood Pressure : / mmHG Vent. Rate : 055 BPM Atrial Rate : 055 BPM P-R Int : 322 ms QRS Dur : 074 ms QT Int : 442 ms P-R-T Axes : 090 029 078 degrees QTc Int : 422 ms Sinus bradycardia with 1st degree A-V block Nonspecific ST and T wave abnormality Abnormal ECG Confirmed by BLAIRE DUMONT, RAHAT ([id number]), bakery supervisor VAUGHN KENT ([id number]) on 05/23/2021 9:10:28 AM Referred By: EVE Confirmed By:RAHAT RUDD MD
[2021-05-18] MEDS: Ipratropium/Albuterol Sulfate 3 ML AMPUL.NEB INHALATION (16:15)
[2021-05-18 16:17] VITALS: PULSE 59; RESP 17; O2SAT 97
--- NOTE | 2021-05-18 16:22 | RAD_ITS ---
STUDY: X-RAY CHEST REASON FOR EXAM: Male, 75 years old. Dyspnea TECHNIQUE: Frontal view COMPARISON: 05/04/2021. FINDINGS: The lungs are expanded. Mild left basilar atelectasis. Normal size heart. Normal mediastinum and vandana. Normal visualized pulmonary arteries. Normal visualized aortic arch and descending thoracic aorta. Degenerative changes of the thoracic spine. Normal visualized ribs, clavicles, and shoulders. There is no demonstrated abnormality of the visualized soft tissue structures of the upper abdomen. RAD/Chest 1 View (Portable) IMPRESSION: Mild left basilar atelectasis. Electronically Signed: Refugio Resendez DO at 16:44 EDT Tel [phone], Service support ,
[2021-05-18 17:19] LABS: Absolute Lymphocyte Count 1.33 X10^3/uL (0.83-4.51); Absolute Neutrophil Count 6.8 X10^3/uL (2.0-7.7); Basophil# 0.04 X10^3/uL; Basophil% 0.4 % (0-1); Eosinophil# 0.31 X10^3/uL; Eosinophils% 3.3 % (0-5); Hematocrit 32.8 % (40-54); Hemoglobin 11.1 g/dL (13.0-16.5); Lymphocyte # 1.33 X10^3/ul (0.83-4.51); Lymphocyte % 14.2 % (19-41); Mean Corp Hgb Conc 33.8 g/dL (32-36); Mean Corpuscular Volume 91.6 fL (80-94); Mean Platelet Vol. 9.7 fl (6.2-12.0); Monocyte# 0.73 X10^3/uL; Monocyte% 7.8 % (0-10); NRBC Flagged by Analyzer 0 % (0-5); Neutrophil # 6.83 X10^3/uL (2.7-7.7); Neutrophil % 73.2 % (47-70); Platelet Count 273 K/mm3 (150-450); RBC Distribution Width CV 13.1 % (11.6-14.6); RBC Distribution Width SD 43.2 fl (35.1-43.9); Red Blood Count 3.58 M/mm3 (4.6-6.2); White Blood Count 9.3 K/mm3 (4.4-11.0)
[2021-05-18 17:36] LABS: ALB/GLOB Ratio 0.9 RATIO (0.9-2.4); AST(SGOT) 22 U/L (15-37); Alanine Aminotransfer ALT/SGPT 33 U/L (16-61); Albumin, Serum 3.5 g/dL (3.2-5.0); Alkaline Phosphatase 75 U/L (45-117); Anion Gap 7 (5-15); BUN 31 mg/dL (7-18); BUN/Creat Ratio 21.4 RATIO (10-20); Calcium,Total 8.9 mg/dL (8.5-10.1); Chloride 101 mmol/L (98-107); Creatinine, Serum 1.45 mg/dL (0.70-1.30); EST Glomerular Filtration Rate 50 mL/min (>60); Est Glom Filt Rate - Afr Amer 61 mL/min (>60); Estimated Creatinine Clearance 43.34 ml/min; Globulin 3.8 g/dL (2.2-4.2); Glucose 105 mg/dL (74-106); Potassium 3.4 mmol/L (3.5-5.1); Protein, Total 7.3 g/dL (6.4-8.2); Sodium Level 140 mmol/L (136-145); Troponin-I HS 32 pg/mL (3.0-78.0)
[2021-05-18 17:49] LABS: Bacteria 0 SEEN /hpf (None Seen); Mucous, Urine 0 SEEN /hpf (<or=2+); Squamous Epithelial Cells - UA 0 SEEN /hpf (0-5)
[2021-05-18 17:55] LABS: Color, Urine Yellow (Yellow); Glucose, Dipstick Normal (Normal); Ketone-Dipstick 15 mg/dl (Negative); Leukocyte Esterase-Dipstick Negative /ul (Negative); Nitrite-Dipstick Negative (Negative); Occult Blood-Urine Negative /ul (Negative); Protein-Dipstick 15 mg/dl (Negative); Specific Gravity, Urine 1.015 (1.002-1.030); Urine Bilirubin Dipstick Negative (Negative); Urine Clarity Clear (Clear); Urine Urobilinogen 1 mg/dl (Normal)
[2021-05-18 18:02] LABS: Red Blood Cells-Urine 0-5 SEEN /hpf (0-5); White Blood Cells 0-5 SEEN /hpf (0-5)
[2021-05-18 18:03] LABS: Hyaline Cast 5-10 SEEN /lpf (0-5)
[2021-05-18 18:22] VITALS: BP 159/84
[2021-05-18 19:42] LABS: Troponin-I HS 31 pg/mL (3.0-78.0)
[2021-05-18 20:29] VITALS: BP 152/61; PULSE 60; RESP 15; O2SAT 96
--- NOTE | 2021-05-18 20:50 | EX.ED.DYSGE1 ---
HPI History of Present Illness Chief Complaint: Syncope Informant: patient and family Onset/Context/Timing Onset: Days (3) Timing: Continuous Quality: Wheezing Location: Chest Worsened by: Nothing Relieved by: Nothing Narrative Narrative: Patient presents with a syncopal episode that occurred a few days ago. Patient has been having some more shortness of breath over the last few days. Family noticed that the patient has been wheezing. Patient states nothing makes it worse and nothing makes it better. Patient admits to nausea but denies any vomiting. Patient admits to some shortness of breath. Patient denies any fevers or chills. Patient denies any chest pain. Patient denies any palpitations. [facility] Medical History Anemia Anxiety Atherosclerotic heart disease of [place] coronary artery without angina pectoris Back pain Degenerative disc disease, lumbar Diabetes Former smoker GERD (gastroesophageal reflux disease) HLD (hyperlipidemia) Hypertension Parkinson's disease Presence of stent in coronary artery (~05/12/21) Vertigo Home Medications amlodipine 10 mg PO DAILY 06/26/17 [History Last Taken 05/04/21] hydrochlorothiazide 12.5 mg PO DAILY 06/26/17 [History Last Taken 05/04/21] carvedilol 6.25 mg PO BID 07/01/18 [History Last Taken 05/04/21] aspirin 81 mg PO DAILY 05/04/21 [History Last Taken 05/04/21] cyclobenzaprine 10 mg PO TID PRN 05/04/21 [History Last Taken 05/04/21] ammonium lactate 1 applic TOPICAL DAILY PRN 05/10/21 [History Last Taken Unknown] atorvastatin 40 mg PO QHS #0 tab 05/13/21 [Rx Last Taken 05/03/21] oxycodone 5 mg PO Q4H PRN PRN 3 Days #10 tab 05/13/21 [Rx Last Taken Unknown] ticagrelor [Brilinta] 90 mg PO BID #180 tab 05/13/21 [Rx Last Taken Unknown] Allergy/AdvReac Type Severity Reaction Status Date / Time No Known Allergies Allergy Verified 05/10/21 16:02 Surgical History Presence of coronary angioplasty implant and graft (~05/12/21) Social History Smoking Status: Former smoker ROS ROS ED Constitutional Constitutional ED: Denies chills or fever(s) Eyes Eyes: Denies blurry vision or change in vision ENT ENT ED: Denies rhinorrhea or sore throat Cardiovascular Cardiovascular: Denies chest pain or palpitations Respiratory/Chest Respiratory/Chest: Reports dyspnea; Denies cough Gastrointestinal Gastrointestinal: Reports nausea; Denies vomiting Genitourinary Genitourinary ED: Denies dysuria or hematuria Musculoskeletal Musculoskeletal: Denies back pain or neck pain Integumentary Denies abscess or rash Neurologic Neurologic: Denies headache(s) or weakness Allergic/Immunologic Allergic/Immunologic ED: Denies mouth swelling or urticaria EXAM Physical Exam Const Vital Signs: 05/18/21 15:34 05/18/21 16:17 05/18/21 18:22 Temperature 98.0 F Temperature Source Oral Pulse Rate 62 59 L Respiratory Rate 18 17 Blood Pressure 112/66 159/84 H Blood Pressure Mean 81 109 Pulse Ox 96 97 Oxygen Delivery Method Room Air Room Air 05/18/21 20:29 Temperature Temperature Source Pulse Rate 60 Respiratory Rate 15 Blood Pressure 152/61 H Blood Pressure Mean 91 Pulse Ox 96 Oxygen Delivery Method Room Air Positive well nourished and well developed General Appearance ED: well developed HEENT Reports moist mucous membranes HEENT Narrative: There is some ecchymosis over the left temporal area. This appears to be a few days old. There is no bony crepitance or step-off. There is no tenderness. Eyes PERRL and EOMs intact bilaterally Neck supple and no JVD Resp normal respiratory effort and clear to auscultation bilaterally Cardio regular rate, regular rhythm and no murmurs GI normal to inspection, nondistended, normoactive bowel sounds and non-tender Palpation: soft Extremity normal to inspection General Extremety ED: Negative for edema or tenderness General Extremity: Negative for edema Neuro oriented x3, CN's II-XII intact bilaterally and no sensory deficits noted Sensorium / Orientation: alert Motor Exam: strength 5/5 throughout Psych mental status grossly normal Skin no rashes or lesions noted MDM MDM MDM Narrative Medical decision making narrative: Patient was given a DuoNeb aerosol here. CBC and comprehensive metabolic profile were obtained and were essentially within normal limits. Creatinine was slightly elevated at 1.45. Patient has had similar creatinines in the past. Urinalysis does not show any evidence of urinary tract infection. Portable 1 view chest x-ray was obtained. On my interpretation, lung colin show atelectasis in the left base. There is normal cardiac silhouette. Bony thorax is normal. There is no acute process noted. Radiologist also interpreted the x-ray and agrees. CT scan of the brain was obtained. There is no acute intracranial abnormality. This was interpreted by the radiologist and reviewed by myself. Patient is breathing better on reevaluation. Patient's wheezing has improved. Patient will be discharged back to the extended care facility. Patient understood and was agreeable with the plan. All questions were answered. Lab Data Attestation: I reviewed the patient's lab results. Labs: Laboratory Results - last 24 hr 05/18/21 05/18/21 05/18/21 17:08 17:08 17:40 WBC 9.3 RBC 3.58 L Hgb 11.1 L Hct 32.8 L MCV 91.6 MCH 31.0 MCHC 33.8 RDW Std Deviation 43.2 RDW Coeff of Sophie 13.1 Plt Count 273 MPV 9.7 Immature Gran % (Auto) 1.100 H Neut % (Auto) 73.2 H Lymph % (Auto) 14.2 L [place] % (Auto) 7.8 Eos % (Auto) 3.3 Baso % (Auto) 0.4 Absolute Neuts (auto) 6.8 Absolute Lymphs (auto) 1.33 Nucleated RBC % 0 Sodium 140 Potassium 3.4 L Chloride 101 Carbon Dioxide 32.0 Anion Gap 7 BUN 31 H Creatinine 1.45 H Estim Creat Clear Calc 43.34 Est GFR (MDRD) Af Amer 61 Est GFR (MDRD) Non-Af 50 L BUN/Creatinine Ratio 21.4 H Glucose 105 Calcium 8.9 Total Bilirubin 1.10 H AST 22 ALT 33 Alkaline Phosphatase 75 Troponin I High Sens 32 Total Protein 7.3 Albumin 3.5 Globulin 3.8 Albumin/Globulin Ratio 0.9 Urine Color Yellow Urine Clarity Clear Urine pH 5.0 Ur Specific [place] 1.015 Urine Protein 15 H Urine Glucose (UA) Normal Urine Ketones 15 H Urine Occult Blood Negative Urine Nitrite Negative Urine Bilirubin Negative Urine Urobilinogen 1 H Ur Leukocyte Esterase Negative Urine RBC 0-5 SEEN Urine WBC 0-5 SEEN Ur Squamous Epith Cells 0 SEEN Urine Bacteria 0 SEEN Hyaline Casts 5-10 SEEN Urine Mucus 0 SEEN 05/18/21 19:05 WBC RBC Hgb Hct MCV MCH MCHC RDW Std Deviation RDW Coeff of Sophie Plt Count MPV Immature Gran % (Auto) Neut % (Auto) Lymph % (Auto) [place] % (Auto) Eos % (Auto) Baso % (Auto) Absolute Neuts (auto) Absolute Lymphs (auto) Nucleated RBC % Sodium Potassium Chloride Carbon Dioxide Anion Gap BUN Creatinine Estim Creat Clear Calc Est GFR (MDRD) Af Amer Est GFR (MDRD) Non-Af BUN/Creatinine Ratio Glucose Calcium Total Bilirubin AST ALT Alkaline Phosphatase Troponin I High Sens 31 Total Protein Albumin Globulin Albumin/Globulin Ratio Urine Color Urine Clarity Urine pH Ur Specific [place] Urine Protein Urine Glucose (UA) Urine Ketones Urine Occult Blood Urine Nitrite Urine Bilirubin Urine Urobilinogen Ur Leukocyte Esterase Urine RBC Urine WBC Ur Squamous Epith Cells Urine Bacteria Hyaline Casts Urine Mucus Radiography Chest X-Ray - ED: 1 View, Read by ED Physician, Read by Radiologist and No Acute Disease Diagnostic Testing: Radiology Impression Brain CT 05/18/21 16:03 IMPRESSION: No acute intracranial pathology of the brain. Electronically Signed: Refugio Resendez DO at 18:02 EDT Tel [phone], Service support , Chest X-Ray 05/18/21 16:22 IMPRESSION: Mild left basilar atelectasis. Electronically Signed: Refugio Resendez DO at 16:44 EDT Tel [phone], Service support , EKG Initial EKG: Attestation: I personally reviewed and interpreted this EKG as follows: Interpretation: Sinus Bradycardia (With first-degree AV block with a rate of 55) and Non-Specific ST Changes (Left ventricular hypertrophy with nonspecific ST-T wave changes) Prior EKG tracings: available for review Prior: Unchanged (05/12/2021) Discharge Plan Triage Chief Complaint: Syncope ED Provider: Pan Ralph Dx/Rx/DC Orders Clinical Impression: Syncope and collapse Instructions: ED Fainting, Uncertain Cause Prescriptions: No Action amlodipine 5 MG tablet 10 mg PO DAILY RF: 0 hydrochlorothiazide 12.5 MG capsule 12.5 mg PO DAILY RF: 0 carvedilol 3.125 MG tablet 6.25 mg PO BID RF: 0 cyclobenzaprine 10 mg tablet 10 mg PO TID PRN (Reason: Spasms) RF: 0 aspirin 81 mg Capsule 81 mg PO DAILY RF: 0 ammonium lactate 12 % Lotion 1 applic TOPICAL DAILY PRN (Reason: Rash) RF: 0 oxycodone 5 mg Tablet 5 mg PO Q4H PRN PRN (Reason: Pain Score 4-5) 3 Days Qty: 10 RF: 0 Brilinta 90 mg Tablet 90 mg PO BID Qty: 180 RF: 3 atorvastatin 10 mg tablet 40 mg PO QHS Qty: 0 RF: 0 Primary Care Provider: Richmond Rivera Referrals: Richmond Rivera MD [Primary Care Provider] - 3-5 Days Disposition Disposition: Half-Way Facility Discharge Location: Other SNF not listed
[2021-05-18 23:41] VITALS: BP 134/69; PULSE 67; RESP 17; O2SAT 96
== END 2021-05-18 23:53 | disposition skilled nursing facility (03) ==
PROVIDERS: Emergency Provider Emergency Medicine; PCP Family Medicine
DX: R55 Syncope and collapse (principal); I25.10 Atherosclerotic heart disease of native coronary artery without angina pectoris; Z95.5 Presence of coronary angioplasty implant and graft; Z87.891 Personal history of nicotine dependence
CPT/HCPCS: 70450; 71045; 80053; 81001; 84484; 85025; 93005; 94640; 99285; A4216

== ENCOUNTER 2021-05-26 11:02 | Inpatient (IN) | payer MEDICARE, SELFPAY ==
[2021-05-26] VITALS (13 sets, daily range): BP systolic 97–151; BP diastolic 50–88; PULSE 39–84; RESP 16–30; TEMP 36.2–36.8; O2SAT 94–100; BMI 68.8; BMI 29.1
--- NOTE | 2021-05-26 11:53 | CT_ITS ---
STUDY: CT BRAIN WITHOUT CONTRAST REASON FOR EXAM: Male, 75 years old. Altered mental status. Stroke alert. TECHNIQUE: Transaxial CT imaging of the brain was performed without administration of intravenous contrast material. Individualized dose optimization techniques were used for this CT. COMPARISON: 05/18/21 FINDINGS: There is no acute bleed or infarct. There are stable chronic ischemic and atrophic changes. The ventricles are normal in configuration. There is no hydrocephalus. The visualized paranasal sinuses are clear. The mastoid air cells are well aerated. There is no skull fracture. CT/STROKE Brain/Head without Cont IMPRESSION: Stable chronic ischemic and atrophic changes. No acute intracranial abnormality. N.B. : The above Results were Read Back by Mickey Santiago MD to Amadou Goodwin MD, and understanding confirmed on 05/26/2021 12:50:32 (ET). Electronically Signed: Mickey Santiago MD at 12:51 EDT Tel , Service support ,
--- NOTE | 2021-05-26 11:53 | RAD_ITS ---
STUDY: X-RAY CHEST REASON FOR EXAM: Male, 75 years old. Altered mental status TECHNIQUE: Frontal view of the chest COMPARISON: 05/18/21 FINDINGS: The lungs are clear. There are no pleural effusions. There is no pneumothorax. The heart is stable in size. The visualized osseous structures are within normal limits. RAD/Chest 1 View IMPRESSION: No acute thoracic pathology. Electronically Signed: Mickey Santiago MD at 13:07 EDT Tel , Service support ,
--- NOTE | 2021-05-26 11:53 | CT_ITS ---
STUDY: CT CERVICAL SPINE WITHOUT CONTRAST REASON FOR EXAM: Male, 75 years old. Fall RADIATION DOSAGE (If Supplied By Facility): CTDIvol = ( 23.53 ) mGy, DLP = ( 521.6 ) mGycm TECHNIQUE: High resolution transaxial imaging was performed without contrast material. Sagittal and coronal images were reconstructed. Individualized dose optimization techniques were used for this CT. COMPARISON: 05/10/21 FINDINGS: There is no evidence of fracture or dislocation in the cervical spine. The dens is intact. Alignment is normal. The vertebral body heights and disc spaces are well-maintained. The visualized paraspinal soft tissues are within normal limits. CT/Spine Cervical without Contras IMPRESSION: No fracture or dislocation in the cervical spine. Electronically Signed: Mickey Santiago MD at 13:05 EDT Tel , Service support ,
--- NOTE | 2021-05-26 11:53 | EKG12_ITS ---
Test Reason : SYNCOPE Blood Pressure : / mmHG Vent. Rate : 072 BPM Atrial Rate : 072 BPM P-R Int : 232 ms QRS Dur : 104 ms QT Int : 418 ms P-R-T Axes : -02 027 050 degrees QTc Int : 457 ms Somatic/Motion Artifact Sinus rhythm with 1st degree A-V block Nonspecific ST and T wave abnormality Abnormal ECG Confirmed by PRITI DUMONT, RASHEED ([id number]), editor managing newspaper VAUGHN KENT ([id number]) on 05/30/2021 10:27:37 AM Referred By: NGHIA Confirmed By:RASHEED MARCOS MD
--- NOTE | 2021-05-26 11:57 | EDS_ITS ---
HPI History of Present Illness Chief Complaint: Syncope Informant: patient and family Narrative Narrative: Brought by EMS from [place] for evaluation. Patient multiple falls recently. He was discharged on May 13 for syncope elevated troponin found to have RCA lesion stented. Per daughter since then intermittent slurred speech at the facility. This morning persistent slurred speech. Reports 2 days ago she seen him normal with talking normally in conversation. Reports did have testing for stroke which was negative. There is concern for mini strokes. Patient had a fall 2 weeks ago healing ecchymosis to left face. Denies cough vomiting diarrhea. Denies urine symptoms. Daughter states this is not baseline per patient. Per daughter patient has been slowly deteriorating prior to his hospitalizations. Had a working diagnosis of Parkinson's with previous PCP. Patient currently not amatory at the [facility] facility states does have therapy. Reviewing records was admitted May 10 to the for near syncope elevated troponins confirm the RCA stent placement. Also notes from discharge summary history of toxic encephalopathy. Prior similar symptoms: Yes PFSH PFS Medical History Anemia Anxiety Atherosclerotic heart disease of [place] coronary artery without angina pectoris Back pain Degenerative disc disease, lumbar Diabetes Former smoker GERD (gastroesophageal reflux disease) HLD (hyperlipidemia) Hypertension Parkinson's disease Presence of stent in coronary artery (~05/12/21) Vertigo Home Medications hydrochlorothiazide 12.5 mg PO DAILY 06/26/17 [History Last Taken 05/26/21] cyclobenzaprine 10 mg PO Q6H PRN 05/04/21 [History Last Taken 05/25/21] amlodipine 10 mg PO DAILY 05/26/21 [History Last Taken 05/26/21] aspirin [Aspirin Low Dose] 81 mg PO DAILY 05/26/21 [History Last Taken 05/26/21] atorvastatin 10 mg PO DAILY 05/26/21 [History Last Taken Unknown] carvedilol 9.375 mg PO DAILY 05/26/21 [History Last Taken Unknown] clopidogrel [Plavix] 75 mg PO DAILY 05/26/21 [History Last Taken Unknown] clopidogrel [Plavix] 300 mg PO .X1 ON 05/26/21 05/26/21 [History Last Taken 05/26/21] potassium chloride 40 meq PO DAILY 05/26/21 [History Last Taken 05/26/21] Allergy/AdvReac Type Severity Reaction Status Date / Time No Known Allergies Allergy Verified 05/26/21 11:02 Surgical History Presence of coronary angioplasty implant and graft (~05/12/21) Social History Smoking Status: Former smoker ROS ROS ED Constitutional Constitutional ED: Denies chills, fever(s) or sweats Eyes Eyes: Denies change in vision ENT ENT ED: Denies dysphagia or sore throat Cardiovascular Cardiovascular: Denies chest pain, leg edema, palpitations or racing heartbeat Respiratory/Chest Respiratory/Chest: Denies cough, dyspnea or dyspnea on exertion Gastrointestinal Gastrointestinal: Denies abdominal pain, diarrhea, nausea or vomiting Genitourinary Genitourinary ED: Denies dysuria, hematuria or urinary frequency Musculoskeletal Musculoskeletal: Denies back pain, extremity pain or neck pain Integumentary Denies rash or wounds Neurologic Neurologic: Reports other Details: Speech changes persistent. ; Denies headache(s), paresthesias or weakness EXAM Physical Exam Const Vital Signs: 05/26/21 11:14 05/26/21 11:45 05/26/21 12:00 Temperature 97.1 F L Temperature Source Temporal Pulse Rate 39 L 74 Respiratory Rate 30 H 22 H Respiratory Effort Respiratory Pattern Tachypnea Blood Pressure 118/53 L Blood Pressure Mean 74 Pulse Ox 96 Oxygen Delivery Method Room Air Nasal Cannula Oxygen Flow Rate (L/min) 05/26/21 12:10 05/26/21 13:08 05/26/21 13:15 Temperature Temperature Source Pulse Rate 71 84 Respiratory Rate 17 18 Respiratory Effort Short of Breath Respiratory Pattern Tachypnea Blood Pressure 146/88 H 120/78 Blood Pressure Mean 107 92 Pulse Ox 94 94 Oxygen Delivery Method Room Air Nasal Cannula Oxygen Flow Rate (L/min) 2 05/26/21 13:35 05/26/21 14:02 05/26/21 14:30 Temperature Temperature Source Pulse Rate 76 73 73 Respiratory Rate 16 16 18 Respiratory Effort Respiratory Pattern Blood Pressure 97/50 L 131/58 H 127/67 H Blood Pressure Mean 65 82 87 Pulse Ox 97 100 100 Oxygen Delivery Method Nasal Cannula Nasal Cannula Nasal Cannula Oxygen Flow Rate (L/min) 2 2 2 05/26/21 15:00 Temperature 97.3 F L Temperature Source Temporal Pulse Rate 75 Respiratory Rate 16 Respiratory Effort Respiratory Pattern Blood Pressure 138/81 H Blood Pressure Mean 100 Pulse Ox 97 Oxygen Delivery Method Nasal Cannula Oxygen Flow Rate (L/min) 2 Positive well nourished and well developed General Appearance ED: well developed and NAD HEENT Reports moist mucous membranes HEENT Narrative: Healing ecchymosis left outer brow. Skin intact. normocephalic and atraumatic Eyes PERRL, EOMs intact bilaterally and conjunctivae normal General Eye ED: Yes normal appearance of both eyes Neck no lymphadenopathy and supple General: Negative for tenderness Chest Wall Chest: Negative for tenderness Resp normal respiratory effort and normal air movement Effort and Inspection: symmetric chest movement; Negative for respiratory distress Cardio regular rate, regular rhythm and no murmurs Peripheral Pulses: pulses 2+ throughout GI normal to inspection, nondistended, normoactive bowel sounds and non-tender Palpation: Negative for guarding or rebound tenderness present Back/Spine no CVA tenderness and no thoracic nor lumbar tenderness Extremity normal to inspection Extremity Narrative: Minimal lower extremity edema. General Extremety ED: Yes edema; Negative for tenderness General Extremity: edema Neuro oriented x3 Neuro Narrative: Patient NIH of 1 for dysarthria. Sensorium / Orientation: awake and alert Skin no rashes or lesions noted and no wounds MDM MDM MDM Narrative Medical decision making narrative: Patient had upper airway wheezing presented today on arrival per nursing requested a DuoNeb treatment which was ordered. He is in no respiratory distress. He did have dysarthria NIH of 1. Timeframe intermittently since he has been discharged. He is not in the window for TPA. I did perform a stroke protocol in addition adding a CT cervical spine with his falls. Results were negative. Labs stable noted white count of 15.4. Chest x- ray negative. Urine negative for infection. Per daughter normal speech at baseline was normal 2 days ago. Due to these symptoms being new, there was no MRI ordered or performed on his last admission with reported similar symptoms. Reevaluation of records more for near syncope with an NSTEMI requiring a stent in his RCA on catheterization. I discussed with hospitalist Dr. Avendano for admission. Lab Data Labs: Laboratory Results - last 24 hr 05/26/21 05/26/21 05/26/21 11:35 11:35 12:04 WBC 15.4 H RBC 3.39 L Hgb 10.7 L Hct 31.6 L MCV 93.2 MCH 31.6 MCHC 33.9 RDW Std Deviation 45.7 H RDW Coeff of Sophie 13.7 Plt Count 282 MPV 10.2 Immature Gran % (Auto) 1.400 H Neut % (Auto) 80.6 H Lymph % (Auto) 8.6 L [place] % (Auto) 7.9 Eos % (Auto) 1.0 Baso % (Auto) 0.5 Absolute Neuts (auto) 12.4 H Absolute Lymphs (auto) 1.33 Nucleated RBC % 0 PT INR APTT Sodium 137 Potassium 3.4 L Chloride 100 Carbon Dioxide 26.0 Anion Gap 11 BUN 41 H Creatinine 2.13 H Estim Creat Clear Calc 35.26 Est GFR (MDRD) Af Amer 39 L Est GFR (MDRD) Non-Af 32 L BUN/Creatinine Ratio 19.2 Glucose 118 H Calcium 8.5 Troponin I High Sens 25 Urine Color Urine Clarity Urine pH Ur Specific [place] Urine Protein Urine Glucose (UA) Urine Ketones Urine Occult Blood Urine Nitrite Urine Bilirubin Urine Urobilinogen Ur Leukocyte Esterase Urine RBC Urine WBC Ur Squamous Epith Cells Urine Bacteria Hyaline Casts Urine Mucus POC Glucose 133 H 05/26/21 05/26/21 12:06 14:00 WBC RBC Hgb Hct MCV MCH MCHC RDW Std Deviation RDW Coeff of Sophie Plt Count MPV Immature Gran % (Auto) Neut % (Auto) Lymph % (Auto) [place] % (Auto) Eos % (Auto) Baso % (Auto) Absolute Neuts (auto) Absolute Lymphs (auto) Nucleated RBC % PT 13.8 INR 1.1 APTT 26.0 Sodium Potassium Chloride Carbon Dioxide Anion Gap BUN Creatinine Estim Creat Clear Calc Est GFR (MDRD) Af Amer Est GFR (MDRD) Non-Af BUN/Creatinine Ratio Glucose Calcium Troponin I High Sens Urine Color Yellow Urine Clarity Sl. Cloudy Urine pH 5.0 Ur Specific [place] 1.020 Urine Protein 30 H Urine Glucose (UA) Normal Urine Ketones Negative Urine Occult Blood Negative Urine Nitrite Negative Urine Bilirubin Negative Urine Urobilinogen 1 H Ur Leukocyte Esterase Negative Urine RBC 0 SEEN Urine WBC 0 SEEN Ur Squamous Epith Cells 0-5 SEEN Urine Bacteria 0 SEEN Hyaline Casts 0-5 SEEN Urine Mucus 0 SEEN POC Glucose Radiography Diagnostic Testing: Radiology Impression Brain CT 05/26/21 11:53 IMPRESSION: Stable chronic ischemic and atrophic changes. No acute intracranial abnormality. N.B. : The above Results were Read Back by Mickey Santiago MD to Amadou Goodwin MD, and understanding confirmed on 05/26/2021 12:50:32 (ET). Electronically Signed: Mickey Santiago MD at 12:51 EDT Tel , Service support , ADDENDUM: 05/26/21 1259 IMPRESSION: Stable chronic ischemic and atrophic changes. No acute intracranial abnormality. N.B. : The above Results were Read Back by Mickey Santiago MD to Amadou Goodwin MD, and understanding confirmed on 05/26/2021 12:50:32 (ET). Electronically Signed: Mickey Santiago MD at 12:51 EDT Tel , Service support , Cervical Spine CT 05/26/21 11:53 IMPRESSION: No fracture or dislocation in the cervical spine. Electronically Signed: Mickey Santiago MD at 13:05 EDT Tel , Service support , Chest X-Ray 05/26/21 11:53 IMPRESSION: No acute thoracic pathology. Electronically Signed: Mickey Santiago MD at 13:07 EDT Tel , Service support , EKG Initial EKG: Attestation: I personally reviewed and interpreted this EKG as follows: Comments: Sinus rate of 72, no ST changes. Artifact at baseline. Discharge Plan Dx/Rx/DC Orders Clinical Impression: Dysarthria Disposition Disposition: Acute Care Hospital [facility] Discharge Date/Time: 05/26/21 15:35
[2021-05-26] MEDS: Ipratropium/Albuterol Sulfate 3 ML AMPUL.NEB INHALATION (12:03)
[2021-05-26 12:10] LABS: Bedside Glucose 133 mg/dL (70-110)
[2021-05-26 12:15] LABS: Absolute Lymphocyte Count 1.33 X10^3/uL (0.83-4.51); Absolute Neutrophil Count 12.4 X10^3/uL (2.0-7.7); Basophil# 0.07 X10^3/uL; Basophil% 0.5 % (0-1); Eosinophil# 0.15 X10^3/uL; Hematocrit 31.6 % (40-54); Hemoglobin 10.7 g/dL (13.0-16.5); Lymphocyte # 1.33 X10^3/ul (0.83-4.51); Lymphocyte % 8.6 % (19-41); Mean Corp Hgb Conc 33.9 g/dL (32-36); Mean Corpuscular Hgb 31.6 pg (27.0-32.0); Mean Corpuscular Volume 93.2 fL (80-94); Mean Platelet Vol. 10.2 fl (6.2-12.0); Monocyte# 1.21 X10^3/uL; Monocyte% 7.9 % (0-10); NRBC Flagged by Analyzer 0 % (0-5); Neutrophil # 12.44 X10^3/uL (2.7-7.7); Neutrophil % 80.6 % (47-70); Platelet Count 282 K/mm3 (150-450); RBC Distribution Width CV 13.7 % (11.6-14.6); RBC Distribution Width SD 45.7 fl (35.1-43.9); Red Blood Count 3.39 M/mm3 (4.6-6.2); White Blood Count 15.4 K/mm3 (4.4-11.0)
[2021-05-26 12:24] LABS: International Normalized Ratio 1.1; Prothrombin Time (Protime)PT. 13.8 SECONDS (11.7-14.9)
[2021-05-26 12:29] LABS: Anion Gap 11 (5-15); BUN 41 mg/dL (7-18); BUN/Creat Ratio 19.2 RATIO (10-20); Calcium,Total 8.5 mg/dL (8.5-10.1); Chloride 100 mmol/L (98-107); Creatinine, Serum 2.13 mg/dL (0.70-1.30); EST Glomerular Filtration Rate 32 mL/min (>60); Est Glom Filt Rate - Afr Amer 39 mL/min (>60); Estimated Creatinine Clearance 35.26 ml/min; Glucose 118 mg/dL (74-106); Potassium 3.4 mmol/L (3.5-5.1); Sodium Level 137 mmol/L (136-145); Troponin-I HS 25 pg/mL (3.0-78.0)
[2021-05-26 14:09] LABS: Bacteria 0 SEEN /hpf (None Seen); Mucous, Urine 0 SEEN /hpf (<or=2+); Red Blood Cells-Urine 0 SEEN /hpf (0-5); White Blood Cells 0 SEEN /hpf (0-5)
[2021-05-26 14:14] LABS: Color, Urine Yellow (Yellow); Glucose, Dipstick Normal (Normal); Ketone-Dipstick Negative (Negative); Leukocyte Esterase-Dipstick Negative /ul (Negative); Nitrite-Dipstick Negative (Negative); Occult Blood-Urine Negative /ul (Negative); Protein-Dipstick 30 mg/dl (Negative); Urine Bilirubin Dipstick Negative (Negative); Urine Clarity Sl. Cloudy (Clear); Urine Urobilinogen 1 mg/dl (Normal)
[2021-05-26 14:26] LABS: Hyaline Cast 0-5 SEEN /lpf (0-5); Squamous Epithelial Cells - UA 0-5 SEEN /hpf (0-5)
--- NOTE | 2021-05-26 15:21 | MRI_ITS ---
STUDY: MRI BRAIN WITHOUT CONTRAST REASON FOR EXAM: Male, 75 years old. Dysarthria TECHNIQUE: Standardized multiplanar fat and water weighted pulse sequences were obtained. COMPARISON: CT. FINDINGS: There is moderate cerebral atrophy with widening of the extra-axial spaces and ventricular dilatation. There are a limited number of small white matter hyperintensities, distributed throughout the deep white matter tracts of the cerebral hemispheres, consistent with mild chronic white matter ischemic changes. There is no evidence for recent intracranial ischemia or other cause of cytotoxic edema on diffusion weighted imaging (DWI). Normal T2* images of the brain without demonstrated susceptibility artifact. There is no demonstrated hemosiderin stain. Normal bilateral basal ganglia. Normal thalami. There is no extra-axial fluid accumulation. Normal flow voids within the major intracranial circulation suggesting patency by spin echo criteria. Normal sella turcica, pituitary gland, infundibular stalk, optic chiasm and hypothalamus. Normal tectal plate and pineal gland. Normal midbrain, елена and medulla. There is mild atrophy of the cerebellum. Normal basal cisterns. Normal bilateral temporal bones. Normal bilateral internal auditory canals. No demonstrated orbital abnormality, within the constraints of a routine brain study. Normal visualized paranasal sinuses. Normal calvarium and skull base. Normal visualized soft tissue structures. Normal visualized upper cervical spine. MRI/Brain without Contrast IMPRESSION: Involutional changes of the brain, as described above. Electronically Signed: Rainer Post MD at 20:59 EDT , Service support ,
[2021-05-26] MEDS: 0.9% Normal Saline 1,000 ML 75 ML IV (16:56)
--- NOTE | 2021-05-26 17:42 | PCS.PANDOC ---
PANDEMIC DOCUMENTATION INITIATED: Date: 05/16/2021 Time: 190
--- NOTE | 2021-05-26 18:11 | HP.PCM.HOS_ITS ---
HPI - General General Date of Admission: 05/26/21 Date of Service: 05/26/21 Chief Complaint: Syncope HPI Narrative KERRY VALDES, is a 75 M who presents to the emergency room at [facility] after having a syncopal episode and a [facility]p facility at which the patient resides currently. According to the correction, patient was placed on a bedside commode this morning and passed out briefly, he also appeared transiently cyanotic. There is a history of a syncopal episode earlier in the month and patient had a stent placed in the right coronary artery proximally 2 weeks ago here at the hospital. Patient also has been having intermittent slurred speech, there is evidence of this this morning at the correction. Work-up in the emergency room included a CT of the brain which showed chronic ischemic and atrophic brain changes but no acute intracranial abnormality. Labs obtained in the emergency room showed an elevated white blood cell count of 15.4, hemoglobin was 10.7, chemistry panel was remarkable for a potassium of 3.4, BUN of 41, and a creatinine of 2.13. Patient's glucose was 118. I talked at length with the patient's daughter who was in the room at the time of my examination, she states that the patient's medical condition has deteriorated over the last 3 weeks and he has trouble ambulating and intermittently has slurred speech. Patient has a history from his previous PCP of Parkinson's disease but the patient is due to see a neurologist, however, he was in the hospital 2 weeks ago for cardiac issues here and his appointment with the neurologist was at an outpatient facility at that time. The correction where he resides is trying to get a consultation with a neurologist in town rescheduled. Patient will be placed in observation status on PCU, he will be monitored on telemetry, I will give the patient IV fluids and he may need a 30-day event monitor placed at the time of discharge back to the correction. Patient will have an MRI of the brain as well as an MRA of the head and neck performed, I think is doubtful patient has had an acute stroke. Patient is currently being transitioned by the correction to Plavix, he had his first dose this morning, he had been on Brilinta and aspirin, he will remain on aspirin and Plavix now. [facility] Medical History Anemia Anxiety Atherosclerotic heart disease of [place] coronary artery without angina pectoris Back pain Degenerative disc disease, lumbar Diabetes Former smoker GERD (gastroesophageal reflux disease) HLD (hyperlipidemia) Hypertension Parkinson's disease Presence of stent in coronary artery (~05/12/21) Vertigo Home Medications hydrochlorothiazide 12.5 mg PO DAILY 06/26/17 [History Last Taken 05/26/21] cyclobenzaprine 10 mg PO Q6H PRN 05/04/21 [History Last Taken 05/25/21] amlodipine 10 mg PO DAILY 05/26/21 [History Last Taken 05/26/21] aspirin [Aspirin Low Dose] 81 mg PO DAILY 05/26/21 [History Last Taken 05/26/21] atorvastatin 10 mg PO DAILY 05/26/21 [History Last Taken Unknown] carvedilol 9.375 mg PO DAILY 05/26/21 [History Last Taken Unknown] clopidogrel [Plavix] 75 mg PO DAILY 05/26/21 [History Last Taken Unknown] clopidogrel [Plavix] 300 mg PO .X1 ON 05/26/21 05/26/21 [History Last Taken 05/26/21] potassium chloride 40 meq PO DAILY 05/26/21 [History Last Taken 05/26/21] Allergy/AdvReac Type Severity Reaction Status Date / Time No Known Allergies Allergy Verified 05/26/21 11:02 Surgical History Presence of coronary angioplasty implant and graft (~05/12/21) Social History Smoking Status: Former smoker ROS ROS Narrative Patient is able to answer some questions appropriately but most questions were answered by his daughter who was at his bedside during the time of my examination, patient is actively having hallucinations during my examination and appeared somnolent at times. I think the review of systems is unreliable at thi s time. Review of Systems ROS Unobtainable: due to mental status Vital Signs Vital Signs Vital Signs: 05/26/21 11:14 05/26/21 11:45 05/26/21 12:00 Temperature 97.1 F L Temperature Source Temporal Pulse Rate 39 L 74 Respiratory Rate 30 H 22 H Respiratory Effort Respiratory Depth Respiratory Pattern Tachypnea Blood Pressure 118/53 L Blood Pressure Mean 74 Blood Pressure Source Blood Pressure Position Blood Pressure Location Pulse Ox 96 Oxygen Delivery Method Room Air Nasal Cannula Oxygen Flow Rate (L/min) 05/26/21 12:10 05/26/21 13:08 05/26/21 13:15 Temperature Temperature Source Pulse Rate 71 84 Respiratory Rate 17 18 Respiratory Effort Short of Breath Respiratory Depth Respiratory Pattern Tachypnea Blood Pressure 146/88 H 120/78 Blood Pressure Mean 107 92 Blood Pressure Source Blood Pressure Position Blood Pressure Location Pulse Ox 94 94 Oxygen Delivery Method Room Air Nasal Cannula Oxygen Flow Rate (L/min) 2 05/26/21 13:35 05/26/21 14:02 05/26/21 14:30 Temperature Temperature Source Pulse Rate 76 73 73 Respiratory Rate 16 16 18 Respiratory Effort Respiratory Depth Respiratory Pattern Blood Pressure 97/50 L 131/58 H 127/67 H Blood Pressure Mean 65 82 87 Blood Pressure Source Blood Pressure Position Blood Pressure Location Pulse Ox 97 100 100 Oxygen Delivery Method Nasal Cannula Nasal Cannula Nasal Cannula Oxygen Flow Rate (L/min) 2 2 2 05/26/21 15:00 05/26/21 15:30 05/26/21 16:15 Temperature 97.3 F L 98.1 F Temperature Source Temporal Oral Pulse Rate 75 73 71 Respiratory Rate 16 19 H 18 Respiratory Effort Respiratory Depth Respiratory Pattern Blood Pressure 138/81 H 151/67 H 115/76 Blood Pressure Mean 100 95 89 Blood Pressure Source Monitor Blood Pressure Position Semi-Fowlers Blood Pressure Location Right Arm Pulse Ox 97 95 100 Oxygen Delivery Method Nasal Cannula Nasal Cannula Nasal Cannula Oxygen Flow Rate (L/min) 2 2 2 05/26/21 16:42 05/26/21 17:16 Temperature Temperature Source Pulse Rate 75 Respiratory Rate Respiratory Effort Normal Non-Labored Respiratory Depth Normal Respiratory Pattern Normal Blood Pressure Blood Pressure Mean Blood Pressure Source Blood Pressure Position Blood Pressure Location Pulse Ox Oxygen Delivery Method Nasal Cannula Oxygen Flow Rate (L/min) 2 Weight Weight: 89.6 kg Body Mass Index (BMI) 29.1 Physical Exam Const alert and no apparent distress Constitutional Narrative: Patient is alert but is somnolent at times and has h allucinations General Appearance: cooperative HEENT normocephalic, hearing grossly normal bilaterally and moist oral mucous membranes Eyes PERRL, EOMs intact bilaterally and conjunctivae normal Neck no lymphadenopathy, supple, no JVD and no carotid bruits Resp normal respiratory effort, no retractions, no use of accessory muscles and clear to auscultation bilaterally Cardio regular rate, regular rhythm, S1 normal heart sound, S2 normal heart sound, no murmurs and no rub GI normal to inspection, nondistended, normoactive bowel sounds, soft to palpation, non-tender and non-distended Extremity normal to inspection and no clubbing, cyanosis or edema Skin no rashes or lesions noted, no wounds, skin turgor normal and no jaundice Skin Narrative: Patient has a small ecchymotic area above his left eyebrow Neuro CN's II-XII intact bilaterally and no focal motor deficits Sensorium / Orientation: alert, oriented to person and oriented to place Psych Psych Narrative: Patient has blunted affect, he has hallucinations during the time of my examination Results Lab / Micro Data Result Diagrams: 05/26/21 11:35 05/26/21 11:35 Labs: Laboratory Results - last 24 hr 05/26/21 11:35: WBC 15.4 H, RBC 3.39 L, Hgb 10.7 L, Hct 31.6 L, MCV 93.2, MCH 31.6, MCHC 33.9, RDW Std Deviation 45.7 H, RDW Coeff of Sophie 13.7, Plt Count 282, MPV 10.2, Immature Gran % (Auto) 1.400 H, Neut % (Auto) 80.6 H, Lymph % (Auto) 8.6 L, [place] % (Auto) 7.9, Eos % (Auto) 1.0, Baso % (Auto) 0.5, Absolute Neuts (auto) 12.4 H, Absolute Lymphs (auto) 1.33, Nucleated RBC % 0 05/26/21 11:35: Sodium 137, Potassium 3.4 L, Chloride 100, Carbon Dioxide 26.0, Anion Gap 11, BUN 41 H, Creatinine 2.13 H, Estim Creat Clear Calc 35.26, Est GFR (MDRD) Af Amer 39 L, Est GFR (MDRD) Non-Af 32 L, BUN/Creatinine Ratio 19.2, Glucose 118 H, Calcium 8.5, Troponin I High Sens 25 05/26/21 12:04: POC Glucose 133 H 05/26/21 12:06: PT 13.8, INR 1.1, APTT 26.0 05/26/21 14:00: Urine Color Yellow, Urine Clarity Sl. Cloudy, Urine pH 5.0, Ur Specific [place] 1.020, Urine Protein 30 H, Urine Glucose (UA) Normal, Urine Ketones Negative, Urine Occult Blood Negative, Urine Nitrite Negative, Urine Bilirubin Negative, Urine Urobilinogen 1 H, Ur Leukocyte Esterase Negative, Urine RBC 0 SEEN, Urine WBC 0 SEEN, Ur Squamous Epith Cells 0-5 SEEN, Urine Bacteria 0 SEEN, Hyaline Casts 0-5 SEEN, Urine Mucus 0 SEEN Micro: Microbiology 05/26/21 14:00 Nasal Secretion SARS-CoV-2 Antigen (Rapid) - Final Radiology Impression Brain CT 05/26/21 11:53 IMPRESSION: Stable chronic ischemic and atrophic changes. No acute intracranial abnormality. N.B. : The above Results were Read Back by Mickey Santiago MD to Amadou Goodwin MD, and understanding confirmed on 05/26/2021 12:50:32 (ET). Electronically Signed: Mickey Santiago MD at 12:51 EDT Tel , Service support , ADDENDUM: 05/26/21 1259 IMPRESSION: Stable chronic ischemic and atrophic changes. No acute intracranial abnormality. N.B. : The above Results were Read Back by Mickey Santiago MD to Amadou Goodwin MD, and understanding confirmed on 05/26/2021 12:50:32 (ET). Electronically Signed: Mickey Santiago MD at 12:51 EDT Tel , Service support , Cervical Spine CT 05/26/21 11:53 IMPRESSION: No fracture or dislocation in the cervical spine. Electronically Signed: Mickey Santiago MD at 13:05 EDT Tel , Service support , Chest X-Ray 05/26/21 11:53 IMPRESSION: No acute thoracic pathology. Electronically Signed: Mickey Santiago MD at 13:07 EDT Tel , Service support , Assessment & Plan Assessment/Plan (1) Syncope and collapse: PLAN: 1. Recurrent syncope-etiology unclear, possibly related to cardiac arrhythmia-patient will be placed in observation status on PCU, he will be monitored on telemetry, he may need a 30-day event monitor on discharge back to his nursing facility. #2 dysarthria-etiology unclear at this point, it could be due to Parkinson's disease which has not been treated in this patient, patient will have an MRI of the brain and MRA of the head and neck, he will be seen by PT OT and speech therapy. #3 coronary artery disease with recent stent placement in right coronary artery #4 hyperlipidemia #5 hypertension #6 hallucinations-possibly secondary to Parkinson's disease, patient will need follow-up with neurology #7 acute kidney injury-I will give the patient IV fluids and repeat BMP in the morning #8 degenerative joint disease of the lumbar spine-patient was on Flexeril at the correction, I have stopped this medication Charges/Coding Visit Charges OBSV E&M: 02230 Initial observation care L3
[2021-05-26] MEDS: LORazepam 2 MG/ML Syringe 1 MG IV ×2 (19:01→19:33)
[2021-05-26] MEDS: 0.9% Saline Lock 10 ML Syringe IV (19:34)
[2021-05-26] MEDS: Heparin Injection (Vial) 5,000 UNIT/ML VIAL 5000 UNIT SC (22:21)
[2021-05-27] VITALS (11 sets, daily range): BP systolic 80–130; BP diastolic 52–71; PULSE 62–90; RESP 16–18; TEMP 36.2–36.8; O2SAT 98–100; BMI 29.1
[2021-05-27 07:54] LABS: Absolute Lymphocyte Count 1.26 X10^3/uL (0.83-4.51); Absolute Neutrophil Count 8.7 X10^3/uL (2.0-7.7); Basophil# 0.04 X10^3/uL; Basophil% 0.4 % (0-1); Eosinophil# 0.15 X10^3/uL; Eosinophils% 1.3 % (0-5); Hematocrit 28.6 % (40-54); Hemoglobin 9.6 g/dL (13.0-16.5); Lymphocyte # 1.26 X10^3/ul (0.83-4.51); Lymphocyte % 11.3 % (19-41); Mean Corp Hgb Conc 33.6 g/dL (32-36); Mean Corpuscular Hgb 31.4 pg (27.0-32.0); Mean Corpuscular Volume 93.5 fL (80-94); Monocyte% 8.1 % (0-10); NRBC Flagged by Analyzer 0 % (0-5); Neutrophil # 8.74 X10^3/uL (2.7-7.7); Neutrophil % 78.3 % (47-70); Platelet Count 207 K/mm3 (150-450); RBC Distribution Width CV 13.9 % (11.6-14.6); RBC Distribution Width SD 46.5 fl (35.1-43.9); Red Blood Count 3.06 M/mm3 (4.6-6.2); White Blood Count 11.2 K/mm3 (4.4-11.0)
[2021-05-27 08:10] LABS: Anion Gap 9 (5-15); BUN 34 mg/dL (7-18); BUN/Creat Ratio 27.2 RATIO (10-20); Calcium,Total 8.3 mg/dL (8.5-10.1); Chloride 105 mmol/L (98-107); Creatinine, Serum 1.25 mg/dL (0.70-1.30); EST Glomerular Filtration Rate 60 mL/min (>60); Est Glom Filt Rate - Afr Amer 72 mL/min (>60); Estimated Creatinine Clearance 50.28 ml/min; Glucose 92 mg/dL (74-106); Sodium Level 140 mmol/L (136-145)
[2021-05-27] MEDS: Clopidogrel Bisulfate 75 MG Tablet PO (10:43)
[2021-05-27] MEDS: Carvedilol 6.25 MG Tablet PO ×2 (10:43→20:37)
[2021-05-27] MEDS: hydroCHLOROthiazide 12.5mg 12.5 MG PO (10:44)
[2021-05-27] MEDS: Aspirin E.C. 81 MG Tablet PO (10:44)
[2021-05-27] MEDS: Heparin Injection (Vial) 5,000 UNIT/ML VIAL 5000 UNIT SC (10:44)
[2021-05-27] MEDS: Potassium Chloride Oral Tablet 20 MEQ 40 MEQ PO (10:44)
[2021-05-27] MEDS: amLODIPine 10 MG Tablet PO (10:44)
[2021-05-27] MEDS: Potassium Chloride Oral Tablet 20 MEQ PO (10:58)
--- NOTE | 2021-05-27 11:04 | CASEMGMT ---
Pt is here from [place]. SW spoke to Leena at [place], pt will need a precert to return. SW faxed initial clinical information to [place], PT/OT are pending. SW will continue to follow for return to [place]. If precert is attained and pt can return tomorrow, pt will not need a new COVID test. If pt leaves Sunday however, a new COVID test will need ordered. SHEKHAR Albrecht
--- NOTE | 2021-05-27 12:00 | CASEMGMT ---
Palliative screening tool completed for [facility] and readmission. Patient meets criteria for palliative consult. Hospitalist updated and no referral at this time per hospitalist. Hospitalist request SNF follow-up when patient returns. SW updated.
--- NOTE | 2021-05-27 12:50 | CASEMGMT ---
Addendum entered by Jo Ann Rocha 05/27/21 13:30: DEVANTE faxed all necessary information to [employer] to obtain pre-cert. Jo Ann COTTON Original Note: DEVANTE spoke with [employer] the company that approves or denies patient's for SNF. DEVANTE spoke with Loida Santos and asked if SW needs a new pre-cert or if there is a new form to complete. She said SW does need a new pre-cert. SW completed forms and will fax everything once Speech sees patient and has their note in computer. Jo Ann COTTON
--- NOTE | 2021-05-27 15:05 | CASEMGMT ---
DEVANTE received a call from Cecilia Rubio with [employer]. She said patient's pre-cert is good until Sunday at midnight. He will need a new pre-cert if he is still her Sunday. DEVANTE notified Leena with [facility]. Jo Ann Rocha HYDRAULIC HAMMER OPERATOR LULA
--- NOTE | 2021-05-27 15:26 | TREXTCAR_ITS ---
Documented by User: Nancy Wiggins NP, PER DIEM CLERK-C 05/30/21 11:13 Diet 05/26/21 15:50 Diet: Regular - General Food consistency:: Regular Liquid Consistency:: Regular/Thin Routine Orders/Code Status Enema Type: Fleetz Enema Frequency: Daily PRN Suppository Type: Dulcolax 10mg Suppository Frequency: Daily PRN O2 Liters per Minute: 1-3 O2 Frequency: Continuous Keep PO Greater than or Equal to (%): 90 Routine Lab Work: - (CBC in 3 days, then CBC, BMP weekly) Suggestions for Active Care Change Position every (hours): 2 Times a day to sit in chair: 3 Therapies Physical Therapy: Eval and Treat Occupational Therapy: Eval and Treat Speech Therapy: Eval and Treat Problem/Diagnosis (1) Syncope and collapse: Status: Acute Allergies/Procedures Done in Hospital Allergies No Known Allergies Allergy (Verified 05/26/21 11:02) Procedures: Electroencephalogram Type of Care/Length of Stay Estimated LOS: Convalescent Care Less Than 30 days Type of Care Needed: Skilled Rehab Potential: Fair Prognosis: Fair Additional Orders/Day of Discharge Additional Orders: Palliative to follow up w/pt at [facility]& will serve as current which was dated: 05/26/21 Day of Discharge: 05/28/21 Discharge Plan Admission Admit Date/Time: 05/26/21 15:21 Primary Reason for Your Visit: Parkinsonism, orthostatic hypotension Attending Provider: Sharon Calle Instructions Additional Instructions / Restrictions: Patient Problems: Altered Health Status related to Hospitalization Patient Goals: *Optimal Level of Health *Keep Appointments *Medication Compliance *Remain Safe Discharge Orders/Prescriptions Prescriptions: New pantoprazole 40 mg Tablet,Delayed Release (Dr/Ec) 40 mg PO DAILY Qty: 0 RF: 0 fludrocortisone 0.1 mg Tablet 0.2 mg PO BREAKFAST Qty: 0 RF: 0 Continued clopidogrel [Plavix] 75 mg Tablet 75 mg PO DAILY RF: 0 aspirin [Aspirin Low Dose] 81 mg Tablet,Delayed Release (Dr/Ec) 81 mg PO DAILY RF: 0 potassium chloride 20 mEq Packet 40 meq PO DAILY RF: 0 amlodipine 10 mg Tablet 10 mg PO DAILY RF: 0 atorvastatin 10 mg tablet 10 mg PO DAILY RF: 0 Discontinued hydrochlorothiazide 12.5 MG capsule 12.5 mg PO DAILY RF: 0 cyclobenzaprine 10 mg tablet 10 mg PO Q6H PRN (Reason: Spasms) RF: 0 clopidogrel 300 mg Tablet 300 mg PO .X1 ON 05/26/21 RF: 0 carvedilol 3.125 mg tablet 9.375 mg PO DAILY RF: 0 Referrals / Follow Up: Jasson England MD [NON-STAFF] - In 1 Week Romeo Jarvis MD [NON-STAFF] - In 1 Week Gabriela King NP, PER DIEM CLERK-C [Nurse Practitioner] - See Referral Note (as scheduled 06/02/21) Disposition Disposition (needs filled in before D/C Order can be placed): Senior [facility] Facility Documented by User: Dr. Sharon Calle MD 05/30/21 18:00 Allergies/Procedures Done in Hospital Allergies No Known Allergies Allergy (Verified 05/26/21 11:02) Discharge Plan Admission Admit Date/Time: 05/26/21 15:21 Primary Reason for Your Visit: Parkinsonism, orthostatic hypotension Attending Provider: Sharon Calle Instructions Additional Instructions / Restrictions: Patient Problems: Altered Health Status related to Hospitalization Patient Goals: *Optimal Level of Health *Keep Appointments *Medication Compliance *Remain Safe Discharge Orders/Prescriptions Prescriptions: New pantoprazole 40 mg Tablet,Delayed Release (Dr/Ec) 40 mg PO DAILY Qty: 0 RF: 0 fludrocortisone 0.1 mg Tablet 0.2 mg PO BREAKFAST Qty: 0 RF: 0 Continued clopidogrel [Plavix] 75 mg Tablet 75 mg PO DAILY RF: 0 aspirin [Aspirin Low Dose] 81 mg Tablet,Delayed Release (Dr/Ec) 81 mg PO DAILY RF: 0 potassium chloride 20 mEq Packet 40 meq PO DAILY RF: 0 amlodipine 10 mg Tablet 10 mg PO DAILY RF: 0 atorvastatin 10 mg tablet 10 mg PO DAILY RF: 0 Discontinued hydrochlorothiazide 12.5 MG capsule 12.5 mg PO DAILY RF: 0 cyclobenzaprine 10 mg tablet 10 mg PO Q6H PRN (Reason: Spasms) RF: 0 clopidogrel 300 mg Tablet 300 mg PO .X1 ON 05/26/21 RF: 0 carvedilol 3.125 mg tablet 9.375 mg PO DAILY RF: 0 Referrals / Follow Up: Jasson England MD [NON-STAFF] - In 1 Week Romeo Jarvis MD [NON-STAFF] - In 1 Week Gabriela King NP, PER DIEM CLERK-C [Nurse Practitioner] - See Referral Note (as scheduled 06/02/21) Disposition Disposition (needs filled in before D/C Order can be placed): Senior Care Facility
--- NOTE | 2021-05-27 15:51 | PCM.PN.HOSP ---
Documented by User: Nancy Wiggins NP, DOG OBEDIENCE INSTRUCTOR-C 05/27/21 16:05 Subjective Subjective Patient seen and examined. Drowsy this morning. Family reports recent change in mental status. Will consult neurology for further input. Objective Data Objective Data Vital Signs: Vital Signs Temp Pulse Resp BP Pulse Ox 98.2 F 70 18 130/64 H 100 05/27/21 15:36 05/27/21 15:36 05/27/21 15:36 05/27/21 15:36 05/27/21 15:36 Oxygen Flow Rate (L/min) 4 Oxygen Delivery Method Nasal Cannula Weight: 197 lb 8.547 oz Body Mass Index (BMI) 29.1 Intake & Output: Intake and Output for Last 24 Hours 05/25/21 05/26/21 05/27/21 23:59 23:59 23:59 Intake Total 131.25 / 131.25 1228.75 / 1228.75 Output Total 650 / 650 Balance 131.25 / 131.25 578.75 / 578.75 Lab / Micro Data Result Diagrams: 05/27/21 07:40 05/27/21 07:40 Labs: Laboratory Results - last 24 hr 05/27/21 07:40: WBC 11.2 H, RBC 3.06 L, Hgb 9.6 L, Hct 28.6 L, MCV 93.5, MCH 31.4, MCHC 33.6, RDW Std Deviation 46.5 H, RDW Coeff of Sophie 13.9, Plt Count 207, MPV 10.0, Immature Gran % (Auto) 0.600, Neut % (Auto) 78.3 H, Lymph % (Auto) 11.3 L, [place] % (Auto) 8.1, Eos % (Auto) 1.3, Baso % (Auto) 0.4, Absolute Neuts (auto) 8.7 H, Absolute Lymphs (auto) 1.26, Nucleated RBC % 0 05/27/21 07:40: Sodium 140, Potassium 3.0 L, Chloride 105, Carbon Dioxide 26.0, Anion Gap 9, BUN 34 H, Creatinine 1.25, Estim Creat Clear Calc 50.28, Est GFR (MDRD) Af Amer 72, Est GFR (MDRD) Non-Af 60, BUN/Creatinine Ratio 27.2 H, Glucose 92, Calcium 8.3 L Micro: Microbiology 05/26/21 14:00 Nasal Secretion SARS-CoV-2 Antigen (Rapid) - Final Radiography Diagnostic Testing: Radiology Impression Brain MRI 05/26/21 15:21 IMPRESSION: Involutional changes of the brain, as described above. Electronically Signed: Rainer Post MD at 20:59 EDT , Service support , Physical Exam Const no apparent distress Orientation / Consciousness: confused HEENT normocephalic and moist oral mucous membranes Eyes PERRL, EOMs intact bilaterally and conjunctivae normal Neck no lymphadenopathy Resp normal respiratory effort and clear to auscultation bilaterally Cardio regular rate, regular rhythm and no murmurs Peripheral Pulses: pulses 2+ throughout GI normal to inspection, nondistended, normoactive bowel sounds, non-tender and non-distended Extremity normal to inspection Skin no rashes or lesions noted Lesions: no lesions Rashes: no rashes Trauma: no lacerations or abrasions Neuro CN's II-XII intact bilaterally, no focal motor deficits, no sensory deficits noted and deep tendon reflexes 2+ bilaterally Psych mental status grossly normal and affect normal Assessment & Plan Assessment/Plan (1) Syncope and collapse: (2) Dysarthria: PLAN: 1. Recurrent syncope-unclear etiology. Recent echocardiogram 05/11/2021 demonstrated an EF of 60%. Monitor telemetry. Will need 30-day event monitor at discharge. PT/OT/ST. 2. Acute encephalopathy- Recent onset confusion, hallucinations. Unclear etiology. No evidence of infectious or metabolic source. Obtain EEG, ammonia level. Obtain ABGs. Consult [facility] neurology. 3. Acute kidney injury-resolved. 4. CAD with history of PCI-on aspirin, statin, Plavix. Recent heart cath with PCI 05/12/2021. 5. Hypertension-stable, continue carvedilol, amlodipine, HCTZ. 6. Hyperlipidemia-continue statin. 7. DJD- PRN flexeril discontinued. DVT Prophylaxis- heparin sc This patient was seen by DEEJAY Burton under the supervision of Dr. Calle. Documented by User: Dr. Sharon Calle MD 05/27/21 17:53 Objective Data Lab / Micro Data Result Diagrams: 05/27/21 07:40 05/27/21 07:40 Charges/Coding Addendum Addendum: Patient seen by Nancy VILLALBA under my supervision Patient seen and examined. He was lethargic and not very communicative. Unable to do review of systems due to patient's lethargy. O/E: Const no apparent distress Orientation / Consciousness: confused, lethargic HEENT normocephalic and moist oral mucous membranes Eyes PERRL, EOMs intact bilaterally and conjunctivae normal Neck no lymphadenopathy Resp normal respiratory effort and clear to auscultation bilaterally Cardio regular rate, regular rhythm and no murmurs Peripheral Pulses: pulses 2+ throughout GI normal to inspection, nondistended, normoactive bowel sounds, non-tender and non-distended Extremity normal to inspection Skin no rashes or lesions noted Lesions: no lesions Rashes: no rashes Trauma: no lacerations or abrasions Neuro CN's II-XII intact bilaterally, no focal motor deficits, no sensory deficits noted and deep tendon reflexes 2+ bilaterally Psych lethargy Patient is being managed recurrent syncope. 2D echo done recently showed EF of 60%. Due to patient's encephalopathy, EEG and ammonoia ordered. Neurology consulted. Patient also admitted with some AUGUSTIN, which has now resolved. PT/OT also consulted. As reported by nurse, patients' daughter also states that he was noted to have an episode of dark stools. this hasnt recurred in hospital, so will monitor closely. Hb is 9.6. check stool for occult blood. Start on PPI. Hold lovenox and start SCDs. Rest as per Nancy VILLALBA's note, which I have reviewed and endorsed. Visit Charges OBSV E&M: 13890 Subsequent observation care L2
--- NOTE | 2021-05-27 15:59 | CASEMGMT ---
Readmission chart review: Pt was admitted 05/11-05/13/21 for near syncope/vertigo/fall. Pt had heart cath during that time w/ stent. Pt was also admitted at the beginning of may for AMS and went home at that time. Pt was discharged to [facility] on the 2nd visit as his is also at [facility] and pt is unable to care for self at home. Per family, this AMS/syncope is all new in the last several weeks. Pt was seen in [facility] ED 05/18 for syncope and sent back to [facility]. Pt returned 05/26/21 for syncope again and also with dysarthria. Pt admitted for same to PCU again. Pt MRI brain is negative and neuro c/s placed. Plan is for pt to go back to [facility] at d/c. CM to follow for any further discharge planning/needs. Jose LAYTON CM
--- NOTE | 2021-05-27 16:05 | CASEMGMT ---
SW received another call from [employer] and SW was misinformed earlier. Patient's pre-cert is only good for 24 hours after he leaves the [facility]. Therefore he will need a new pre-cert. DEVANTE told her SW faxed everything earlier today to obtain pre-cert and that is why Cecilia Rubio from [facility] called DEVANTE. She did see the request and she will forward it on to the people that do the pre-certs. She said they do work on the weekends so it is possible to get approval this weekend. Plan: d/c to [facility] pending pre-cert. Jo Ann Rocha CONSULTING SERVICES PROJECT MANAGER LULA
--- NOTE | 2021-05-27 16:05 | TELEMED_ITS ---
[facility] Telemed has confirmed receipt of a request for visit. This document confirms receipt of the order initiating the consult. To find the results of the consultation, please view the patient's reports for the scanned Telemed Consult.
[2021-05-27 17:21] LABS: Base Excess 0 mmol/L (-2 to +2); Bicarbonate 24.7 mmol/L (22-26); Blood Gas Specimen Type ART; O2 Delivery Device Room Air; PO2 107 mmHG (75-100); SITE L Brach; SO2 98 % (95-99); Total Carbon Dioxide 26 mmol/L; pCO2 37.9 mmHg (35-45); pH 7.42 (7.35-7.45)
[2021-05-27] MEDS: Pantoprazole Sodium 40 MG Tablet PO (18:36)
[2021-05-27] MEDS: Atorvastatin Calcium 40 MG Tablet PO (20:37)
[2021-05-28] VITALS (12 sets, daily range): BP systolic 100–120; BP diastolic 52–65; PULSE 67–83; RESP 16–18; TEMP 36.3–36.7; O2SAT 96–100
[2021-05-28 06:32] LABS: Absolute Lymphocyte Count 1.16 X10^3/uL (0.83-4.51); Absolute Neutrophil Count 5.3 X10^3/uL (2.0-7.7); Basophil# 0.04 X10^3/uL; Basophil% 0.5 % (0-1); Eosinophil# 0.17 X10^3/uL; Eosinophils% 2.3 % (0-5); Hemoglobin 8.6 g/dL (13.0-16.5); Lymphocyte # 1.16 X10^3/ul (0.83-4.51); Lymphocyte % 15.5 % (19-41); Mean Corp Hgb Conc 33.1 g/dL (32-36); Mean Corpuscular Hgb 31.3 pg (27.0-32.0); Mean Corpuscular Volume 94.5 fL (80-94); Mean Platelet Vol. 10.2 fl (6.2-12.0); Monocyte% 9.4 % (0-10); NRBC Flagged by Analyzer 0 % (0-5); Neutrophil # 5.33 X10^3/uL (2.7-7.7); Neutrophil % 71.2 % (47-70); Platelet Count 191 K/mm3 (150-450); RBC Distribution Width CV 14.3 % (11.6-14.6); RBC Distribution Width SD 47.4 fl (35.1-43.9); Red Blood Count 2.75 M/mm3 (4.6-6.2); White Blood Count 7.5 K/mm3 (4.4-11.0)
[2021-05-28 06:59] LABS: Anion Gap 7 (5-15); BUN 31 mg/dL (7-18); BUN/Creat Ratio 27.2 RATIO (10-20); Calcium,Total 8.2 mg/dL (8.5-10.1); Chloride 104 mmol/L (98-107); Creatinine, Serum 1.14 mg/dL (0.70-1.30); EST Glomerular Filtration Rate 66 mL/min (>60); Est Glom Filt Rate - Afr Amer 80 mL/min (>60); Estimated Creatinine Clearance 55.13 ml/min; Glucose 113 mg/dL (74-106); Sodium Level 138 mmol/L (136-145)
[2021-05-28] MEDS: Aspirin E.C. 81 MG Tablet PO (08:40)
[2021-05-28] MEDS: Potassium Chloride Oral Tablet 20 MEQ 60 MEQ PO (08:40)
[2021-05-28] MEDS: Clopidogrel Bisulfate 75 MG Tablet PO (08:40)
[2021-05-28] MEDS: Pantoprazole Sodium 40 MG Tablet PO (08:40)
[2021-05-28 08:52] LABS: Erythrocyte Sedimentation Rate 9 mm/hr (0-20)
[2021-05-28 09:00] LABS: CPK Total, Creatine Kinase 101 U/L (39-308)
[2021-05-28] MEDS: Fludrocortisone Acetate 0.1 MG Tablet PO (09:41)
--- NOTE | 2021-05-28 13:29 | DS.PCM_ITS ---
Documented by User: Nancy Wiggins NP, STRATEGIC MARKETING SPECIALIST-C 05/30/21 11:16 Providers Date of Admission: 05/26/21 Date of Discharge: 05/28/21 Reason For Visit: DYSARTHRIA Diagnosis Discharge Diagnosis (1) Syncope and collapse: Status: Acute Code(s): R55 - Syncope and collapse Medications at Discharge Home Medications amlodipine 10 mg PO DAILY 05/26/21 aspirin [Aspirin Low Dose] 81 mg PO DAILY 05/26/21 atorvastatin 10 mg PO DAILY 05/26/21 clopidogrel [Plavix] 75 mg PO DAILY 05/26/21 potassium chloride 40 meq PO DAILY 05/26/21 pantoprazole 40 mg PO DAILY #0 tab 05/28/21 fludrocortisone 0.2 mg PO BREAKFAST #0 tab 05/30/21 Hospital Course Operations None Procedures Electroencephalogram Summary of Care Provided Minutes Spent on Discharge: 35 Hospital Course: Patient is a 75-year-old male admitted 05/26/2021 due to syncopal episode. 1. Recurrent syncope, Suspected secondary to orthostatic hypotension. Recent echocardiogram 05/11/2021 demonstrated an EF of 60%. No events on telemetry. Patient's orthostatic vital significantly positive. Initiated on Florinef per neurology recommendations. Provide assistance with position changes, continue monitoring orthostatic vitals at SNF. May increase Florinef by 0.1 mg/week up to 1 mg until effective. Follow-up with PCP and neurology at discharge. 2. Parkinsonism with recent onset confusion, hallucinations and worsening weakness-SOC neurology consult obtained who suspects parkinsonism. Initiated on Florinef for orthostatic hypotension as noted above. MRI negative for stroke. EEG completed which was negative for seizures. May try sentiment on an outpatient basis. Follow-up with neurology, Dr. Jarvis. SNF at discharge for further therapies. 3. Acute kidney injury-resolved. 4. CAD with history of PCI-on aspirin, statin, Plavix. Recent heart cath with PCI 05/12/2021. Follow-up with cardiology as scheduled. 5. Hypertension-stable, continue amlodipine. Carvedilol, HCTZ discontinued. 6. Hyperlipidemia-continue statin. 7. DJD- PRN flexeril discontinued. Physical Exam Const no apparent distress Orientation / Consciousness: confused HEENT normocephalic and moist oral mucous membranes Eyes PERRL, EOMs intact bilaterally and conjunctivae normal Neck no lymphadenopathy Resp normal respiratory effort and clear to auscultation bilaterally Cardio regular rate, regular rhythm and no murmurs Peripheral Pulses: pulses 2+ throughout GI normal to inspection, nondistended, normoactive bowel sounds, non-tender and non-distended Extremity normal to inspection Skin no rashes or lesions noted Lesions: no lesions Rashes: no rashes Trauma: no lacerations or abrasions Neuro CN's II-XII intact bilaterally, no focal motor deficits, no sensory deficits noted and deep tendon reflexes 2+ bilaterally Psych mental status grossly normal and affect normal Patient seen and examined prior to discharge. Physical assessment as noted above. Patient is stable for discharge with follow up recommendations as noted above. This patient was seen by DEEJAY Burton under the supervision of Dr. Calle. Weight / BMI Weight Weight: 197 lb 8.547 oz Body Mass Index (BMI) 29.1 ABG / Lab / Microbiology Data Result Diagrams: 05/30/21 05:31 05/30/21 05:31 Laboratory: Laboratory Results - last 24 hr 05/27/21 16:58: Ammonia 18.0 05/28/21 05:44: WBC 7.5, RBC 2.75 L, Hgb 8.6 L, Hct 26.0 L, MCV 94.5 H, MCH 31.3, MCHC 33.1, RDW Std Deviation 47.4 H, RDW Coeff of Sophie 14.3, Plt Count 191, MPV 10.2, Immature Gran % (Auto) 1.100 H, Neut % (Auto) 71.2 H, Lymph % (Auto) 15.5 L, [place] % (Auto) 9.4, Eos % (Auto) 2.3, Baso % (Auto) 0.5, Absolute Neuts (auto) 5.3, Absolute Lymphs (auto) 1.16, Nucleated RBC % 0 05/28/21 05:44: Sodium 138, Potassium 3.0 L, Chloride 104, Carbon Dioxide 27.0, Anion Gap 7, BUN 31 H, Creatinine 1.14, Estim Creat Clear Calc 55.13, Est GFR (MDRD) Af Amer 80, Est GFR (MDRD) Non-Af 66, BUN/Creatinine Ratio 27.2 H, Glucose 113 H, Calcium 8.2 L 05/28/21 05:44: ESR 9 05/28/21 05:44: Total Creatine Kinase 101 Microbiology: Microbiology 05/26/21 14:00 Nasal Secretion SARS-CoV-2 Antigen (Rapid) - Final ABG: ABG 05/27/21 17:16 Specimen Type ART Sample Site L Brach pH 7.42 Bicarbonate Actual 24.7 Total CO2 26 Base Excess 0 O2 Saturation 98 ABG pCO2 37.9 ABG pO2 107 H Jus Test N/A O2 Delivery Device Room Air Meaningful Use Info Meaningful Use Diagnoses (Choose all that apply): None applicable Discharge Plan Admission Admit Date/Time: 05/26/21 15:21 Primary Reason for Your Visit: Parkinsonism, orthostatic hypotension Attending Provider: Sharon Calle Instructions Additional Instructions / Restrictions: Patient Problems: Altered Health Status related to Hospitalization Patient Goals: *Optimal Level of Health *Keep Appointments *Medication Compliance *Remain Safe Discharge Orders/Prescriptions Prescriptions: New pantoprazole 40 mg Tablet,Delayed Release (Dr/Ec) 40 mg PO DAILY Qty: 0 RF: 0 fludrocortisone 0.1 mg Tablet 0.2 mg PO BREAKFAST Qty: 0 RF: 0 Continued clopidogrel [Plavix] 75 mg Tablet 75 mg PO DAILY RF: 0 aspirin [Aspirin Low Dose] 81 mg Tablet,Delayed Release (Dr/Ec) 81 mg PO DAILY RF: 0 potassium chloride 20 mEq Packet 40 meq PO DAILY RF: 0 amlodipine 10 mg Tablet 10 mg PO DAILY RF: 0 atorvastatin 10 mg tablet 10 mg PO DAILY RF: 0 Discontinued hydrochlorothiazide 12.5 MG capsule 12.5 mg PO DAILY RF: 0 cyclobenzaprine 10 mg tablet 10 mg PO Q6H PRN (Reason: Spasms) RF: 0 clopidogrel 300 mg Tablet 300 mg PO .X1 ON 05/26/21 RF: 0 carvedilol 3.125 mg tablet 9.375 mg PO DAILY RF: 0 Referrals / Follow Up: Jsason England MD [NON-STAFF] - In 1 Week Romeo Jarvis MD [NON-STAFF] - In 1 Week Gabriela King NP, STRATEGIC MARKETING SPECIALIST-C [Nurse Practitioner] - See Referral Note (as scheduled 06/02/21) Disposition Disposition (needs filled in before D/C Order can be placed): Care Home Facility Documented by User: Dr. Sharon Calle MD 05/30/21 18:00 Providers Date of Admission: 05/26/21 Reason For Visit: DYSARTHRIA Medications at Discharge Home Medications amlodipine 10 mg PO DAILY 05/26/21 aspirin [Aspirin Low Dose] 81 mg PO DAILY 05/26/21 atorvastatin 10 mg PO DAILY 05/26/21 clopidogrel [Plavix] 75 mg PO DAILY 05/26/21 potassium chloride 40 meq PO DAILY 05/26/21 pantoprazole 40 mg PO DAILY #0 tab 05/28/21 fludrocortisone 0.2 mg PO BREAKFAST #0 tab 05/30/21 ABG / Lab / Microbiology Data Result Diagrams: 05/30/21 05:31 05/30/21 05:31 Discharge Plan Admission Admit Date/Time: 05/26/21 15:21 Primary Reason for Your Visit: Parkinsonism, orthostatic hypotension Attending Provider: Sharon Calle Instructions Additional Instructions / Restrictions: Patient Problems: Altered Health Status related to Hospitalization Patient Goals: *Optimal Level of Health *Keep Appointments *Medication Compliance *Remain Safe Discharge Orders/Prescriptions Prescriptions: New pantoprazole 40 mg Tablet,Delayed Release (Dr/Ec) 40 mg PO DAILY Qty: 0 RF: 0 fludrocortisone 0.1 mg Tablet 0.2 mg PO BREAKFAST Qty: 0 RF: 0 Continued clopidogrel [Plavix] 75 mg Tablet 75 mg PO DAILY RF: 0 aspirin [Aspirin Low Dose] 81 mg Tablet,Delayed Release (Dr/Ec) 81 mg PO DAILY RF: 0 potassium chloride 20 mEq Packet 40 meq PO DAILY RF: 0 amlodipine 10 mg Tablet 10 mg PO DAILY RF: 0 atorvastatin 10 mg tablet 10 mg PO DAILY RF: 0 Discontinued hydrochlorothiazide 12.5 MG capsule 12.5 mg PO DAILY RF: 0 cyclobenzaprine 10 mg tablet 10 mg PO Q6H PRN (Reason: Spasms) RF: 0 clopidogrel 300 mg Tablet 300 mg PO .X1 ON 05/26/21 RF: 0 carvedilol 3.125 mg tablet 9.375 mg PO DAILY RF: 0 Referrals / Follow Up: Jasson England MD [NON-STAFF] - In 1 Week Romeo Jarvis MD [NON-STAFF] - In 1 Week Gabriela King STRATEGIC MARKETING SPECIALIST, STRATEGIC MARKETING SPECIALIST-C [Nurse Practitioner] - See Referral Note (as scheduled 06/02/21) Disposition Disposition (needs filled in before D/C Order can be placed): Care Home Facility
--- NOTE | 2021-05-28 14:06 | PN.HOSP_ITS ---
Documented by User: Nancy Wiggins TREE AND SHRUB TECHNICIAN, TREE AND SHRUB TECHNICIAN-C 05/28/21 14:10 Subjective Subjective Patient seen and examined. More alert today, conversing appropriately. Denies new symptoms or complaints. Undergoing EEG. Objective Data Objective Data Vital Signs: Vital Signs Temp Pulse Resp BP Pulse Ox 98.1 F 75 18 100/65 100 05/28/21 08:35 05/28/21 08:35 05/28/21 08:35 05/28/21 08:35 05/28/21 08:35 Oxygen Flow Rate (L/min) 1 Oxygen Delivery Method Nasal Cannula Weight: 197 lb 8.547 oz Body Mass Index (BMI) 29.1 Intake & Output: Intake and Output for Last 24 Hours 05/26/21 05/27/21 05/28/21 23:59 23:59 23:59 Intake Total 131.25 / 131.25 1708.75 / 1708.75 120 / 120 Output Total 650 / 650 Balance 131.25 / 131.25 1058.75 / 1058.75 120 / 120 Lab / Micro Data Result Diagrams: 05/28/21 05:44 05/28/21 05:44 Labs: Laboratory Results - last 24 hr 05/27/21 16:58: Ammonia 18.0 05/28/21 05:44: WBC 7.5, RBC 2.75 L, Hgb 8.6 L, Hct 26.0 L, MCV 94.5 H, MCH 31.3, MCHC 33.1, RDW Std Deviation 47.4 H, RDW Coeff of Sophie 14.3, Plt Count 191, MPV 10.2, Immature Gran % (Auto) 1.100 H, Neut % (Auto) 71.2 H, Lymph % (Auto) 15.5 L, [place] % (Auto) 9.4, Eos % (Auto) 2.3, Baso % (Auto) 0.5, Absolute Neuts (auto) 5.3, Absolute Lymphs (auto) 1.16, Nucleated RBC % 0 05/28/21 05:44: Sodium 138, Potassium 3.0 L, Chloride 104, Carbon Dioxide 27.0, Anion Gap 7, BUN 31 H, Creatinine 1.14, Estim Creat Clear Calc 55.13, Est GFR (MDRD) Af Amer 80, Est GFR (MDRD) Non-Af 66, BUN/Creatinine Ratio 27.2 H, Glucose 113 H, Calcium 8.2 L 05/28/21 05:44: ESR 9 05/28/21 05:44: Total Creatine Kinase 101 Micro: Microbiology 05/26/21 14:00 Nasal Secretion SARS-CoV-2 Antigen (Rapid) - Final ABG Data ABG results: ABG 05/27/21 17:16 Specimen Type ART Sample Site L Brach pH 7.42 Bicarbonate Actual 24.7 Total CO2 26 Base Excess 0 O2 Saturation 98 ABG pCO2 37.9 ABG pO2 107 H Jus Test N/A O2 Delivery Device Room Air Physical Exam Const alert, oriented x3 and no apparent distress Orientation / Consciousness: awake, oriented to person, oriented to place and oriented to time HEENT normocephalic and moist oral mucous membranes Eyes PERRL, EOMs intact bilaterally and conjunctivae normal Neck no lymphadenopathy Resp normal respiratory effort and clear to auscultation bilaterally Cardio regular rate, regular rhythm and no murmurs Peripheral Pulses: pulses 2+ throughout GI normal to inspection, nondistended, normoactive bowel sounds, non-tender and non-distended Extremity normal to inspection Skin no rashes or lesions noted Lesions: no lesions Rashes: no rashes Trauma: no lacerations or abrasions Neuro CN's II-XII intact bilaterally, no focal motor deficits, no sensory deficits noted and deep tendon reflexes 2+ bilaterally Psych mental status grossly normal and affect normal Assessment & Plan Assessment/Plan (1) Syncope and collapse: PLAN: 1. Recurrent syncope, Suspected secondary to orthostatic hypotension. Recent echocardiogram 05/11/2021 demonstrated an EF of 60%. No events on telemetry. Patient's orthostatic vital significantly positive. Initiated on Florinef per neurology recommendations. Repeat orthostatic vitals in a.m. May increase Florinef by 0.1 mg/week up to 1 mg until effective. Follow-up with PCP and neurology at discharge. 2. Parkinsonism with recent onset confusion, hallucinations and worsening weakness-[facility] neurology consult obtained who suspects parkinsonism. Initiated on Florinef for orthostatic hypotension as noted above. MRI negative for stroke. EEG completed which was negative for seizures. May try Sinemet on an outpatient basis. Follow-up with neurology, Dr. Jarvis. SNF at discharge for further therapies. 3. Acute kidney injury-resolved. 4. CAD with history of PCI-on aspirin, statin, Plavix. Recent heart cath with PCI 05/12/2021. Follow-up with cardiology as scheduled. 5. Hypertension-stable, continue amlodipine. Carvedilol, HCTZ discontinued. 6. Hyperlipidemia-continue statin. 7. DJD- PRN flexeril discontinued. DVT Prophylaxis- heparin sc Discharge plan: Return to SNF pending insurance approval. This patient was seen by DEEJAY Burton under the supervision of Dr. Calle. Documented by User: Dr. Sharon Calle MD 05/28/21 16:47 Objective Data Lab / Micro Data Result Diagrams: 05/28/21 05:44 05/28/21 05:44 Charges/Coding Addendum Addendum: Patient seen by Nancy VILLALBA under my supervision Patient seen and examined this morning. He was again drowsy and unable to do an active review of systems. O/E: Const no apparent distress Orientation / Consciousness: confused, lethargic HEENT normocephalic and moist oral mucous membranes Eyes PERRL, EOMs intact bilaterally and conjunctivae normal Neck no lymphadenopathy Resp normal respiratory effort and clear to auscultation bilaterally Cardio regular rate, regular rhythm and no murmurs Peripheral Pulses: pulses 2+ throughout GI normal to inspection, nondistended, normoactive bowel sounds, non-tender and non-distended Extremity normal to inspection Skin no rashes or lesions noted Lesions: no lesions Rashes: no rashes Trauma: no lacerations or abrasions Neuro CN's II-XII intact bilaterally, no focal motor deficits, no sensory deficits noted and deep tendon reflexes 2+ bilaterally Psych lethargy Patient still remains drowsy. EEG being done today. [facility] neurology consulted. Per [facility] neurology, patient started on Florinef on account of orthostatic hypotension. Neurology also suspects parkinsonism as the cause of his confusion and hallucinations and worsening weakness. MRI of the brain was negative for stroke and EEG was also negative for any evidence of seizures. Per neurology, to initiate Sinemet on outpatient basis and follow-up with neurology on outpatient basis. Patient is awaiting [facility] back to [facility] pending insurance approval. Rest as per DEEJAY Burton's notes which I reviewed and endorsed. Visit Charges Inpatient E&M: 11647 Subs Hosp L2
[2021-05-28] MEDS: Atorvastatin Calcium 40 MG Tablet PO (21:10)
[2021-05-29] VITALS (8 sets, daily range): BP systolic 73–141; BP diastolic 56–74; PULSE 68–88; RESP 18; TEMP 36.6–36.7; O2SAT 91–100
[2021-05-29] MEDS: Fludrocortisone Acetate 0.1 MG Tablet PO (08:27)
[2021-05-29] MEDS: Aspirin E.C. 81 MG Tablet PO (08:27)
[2021-05-29] MEDS: Pantoprazole Sodium 40 MG Tablet PO (08:27)
[2021-05-29] MEDS: Clopidogrel Bisulfate 75 MG Tablet PO (08:28)
[2021-05-29] MEDS: Potassium Chloride Oral Tablet 20 MEQ 40 MEQ PO (08:28)
--- NOTE | 2021-05-29 11:03 | PN.HOSP_ITS ---
Documented by User: Nancy Wiggins NP, CUSTOMER ASSISTANCE ASSOCIATE-C 05/29/21 11:13 Subjective Subjective Patient seen and examined. Alert and oriented today, conversing appropriately. Feeling overall improved. Awaiting approval to return to SNF. Objective Data Objective Data Vital Signs: Vital Signs Temp Pulse Resp BP Pulse Ox 97.8 F 80 18 97/58 L 99 05/29/21 08:24 05/29/21 08:24 05/29/21 08:24 05/29/21 08:24 05/29/21 08:24 Oxygen Flow Rate (L/min) 1 Oxygen Delivery Method Room Air Weight: 197 lb 8.547 oz Body Mass Index (BMI) 29.1 Intake & Output: Intake and Output for Last 24 Hours 05/27/21 05/28/21 05/29/21 23:59 23:59 23:59 Intake Total 1708.75 / 1708.75 820 / 820 0 / 0 Output Total 650 / 650 825 / 825 275 / 275 Balance 1058.75 / 1058.75 -5 / -5 -275 / -275 Lab / Micro Data Result Diagrams: 05/29/21 12:14 05/29/21 12:14 Micro: Microbiology 05/26/21 14:00 Nasal Secretion SARS-CoV-2 Antigen (Rapid) - Final Physical Exam Const alert, oriented x3 and no apparent distress Orientation / Consciousness: awake, oriented to person, oriented to place and oriented to time HEENT normocephalic and moist oral mucous membranes Eyes PERRL, EOMs intact bilaterally and conjunctivae normal Neck no lymphadenopathy Resp normal respiratory effort and clear to auscultation bilaterally Cardio regular rate, regular rhythm and no murmurs Peripheral Pulses: pulses 2+ throughout GI normal to inspection, nondistended, normoactive bowel sounds, non-tender and non-distended Extremity normal to inspection Skin no rashes or lesions noted Lesions: no lesions Rashes: no rashes Trauma: no lacerations or abrasions Neuro CN's II-XII intact bilaterally, no focal motor deficits, no sensory deficits noted and deep tendon reflexes 2+ bilaterally Psych mental status grossly normal and affect normal Assessment & Plan Assessment/Plan (1) Dysarthria: (2) Syncope and collapse: PLAN: 1. Recurrent syncope, Suspected secondary to orthostatic hypotension. Recent echocardiogram 05/11/2021 demonstrated an EF of 60%. No events on telemetry. Patient's orthostatic vital significantly positive. Initiated on Florinef per neurology recommendations. Repeat orthostatic vitals in a.m. May increase Florinef by 0.1 mg/week up to 1 mg until effective. 2. Parkinsonism with recent onset confusion, hallucinations and worsening weakness-[facility] neurology consult obtained who suspects parkinsonism. Initiated on Florinef for orthostatic hypotension as noted above. MRI negative for stroke. EEG completed which was negative for seizures. May try Sinemet on an outpatient basis. Follow-up with neurology, Dr. Jarvis. SNF at discharge for further therapies pending insurance approval. 3. Acute kidney injury-resolved. 4. CAD with history of PCI-on aspirin, statin, Plavix. Recent heart cath with PCI 05/12/2021. Follow-up with cardiology as scheduled. 5. Hypertension-stable, continue amlodipine. Carvedilol, HCTZ discontinued. 6. Hyperlipidemia-continue statin. 7. DJD- PRN flexeril discontinued. DVT Prophylaxis- heparin sc Discharge plan: Return to SNF pending insurance approval. This patient was seen by DEEJAY Burton under the supervision of Dr. Calle. Documented by User: Dr. Sharon Calle MD 05/29/21 15:58 Objective Data Lab / Micro Data Result Diagrams: 05/29/21 12:14 05/29/21 12:14 Charges/Coding Addendum Addendum: Patient seen by Nancy VILLALBA under my supervision Patient seen and examined. He is much more alert and communicative today. He has no complaints and review of systems otherwise negative. He has remained hemodynamically stable and is awaiting placement. O/E: Const no apparent distress Orientation / Consciousness: alert, communicative HEENT normocephalic and moist oral mucous membranes Eyes PERRL, EOMs intact bilaterally and conjunctivae normal Neck no lymphadenopathy Resp normal respiratory effort and clear to auscultation bilaterally Cardio regular rate, regular rhythm and no murmurs Peripheral Pulses: pulses 2+ throughout GI normal to inspection, nondistended, normoactive bowel sounds, non-tender and non-distended Extremity normal to inspection Skin no rashes or lesions noted Lesions: no lesions Rashes: no rashes Trauma: no lacerations or abrasions Neuro CN's II-XII intact bilaterally, no focal motor deficits, no sensory deficits noted and deep tendon reflexes 2+ bilaterally Psych alert Patient is much more alert today. Continue Florinef. To start Sinemet on outpatient basis and follow-up with neurology on outpatient basis. MRI of the brain was negative and EEG was also negative. He is awaiting discharge to shelter facility pending pre-CERT. Rest as per Nancy Wiggins NP-see his note which I reviewed and endorsed. Visit Charges Inpatient E&M: 80454 Subs Hosp L2
[2021-05-29 12:26] LABS: Hematocrit 31.3 % (40-54); Hemoglobin 10.2 g/dL (13.0-16.5); Mean Corp Hgb Conc 32.6 g/dL (32-36); Mean Corpuscular Hgb 31.4 pg (27.0-32.0); Mean Corpuscular Volume 96.3 fL (80-94); Platelet Count 234 K/mm3 (150-450); RBC Distribution Width CV 14.6 % (11.6-14.6); RBC Distribution Width SD 50.1 fl (35.1-43.9); Red Blood Count 3.25 M/mm3 (4.6-6.2); White Blood Count 8.8 K/mm3 (4.4-11.0)
[2021-05-29 12:43] LABS: Anion Gap 7 (5-15); BUN 23 mg/dL (7-18); BUN/Creat Ratio 19.8 RATIO (10-20); Calcium,Total 8.3 mg/dL (8.5-10.1); Chloride 106 mmol/L (98-107); Creatinine, Serum 1.16 mg/dL (0.70-1.30); EST Glomerular Filtration Rate 65 mL/min (>60); Est Glom Filt Rate - Afr Amer 79 mL/min (>60); Estimated Creatinine Clearance 54.18 ml/min; Glucose 121 mg/dL (74-106); Potassium 3.8 mmol/L (3.5-5.1); Sodium Level 139 mmol/L (136-145)
[2021-05-29] MEDS: Atorvastatin Calcium 40 MG Tablet PO (21:41)
[2021-05-30] VITALS (8 sets, daily range): BP systolic 103–127; BP diastolic 59–89; PULSE 64–93; RESP 16–18; TEMP 36.4–36.6; O2SAT 97–100
[2021-05-30 05:54] LABS: Absolute Neutrophil Count 4.7 X10^3/uL (2.0-7.7); Basophil# 0.04 X10^3/uL; Basophil% 0.6 % (0-1); Eosinophil# 0.24 X10^3/uL; Eosinophils% 3.3 % (0-5); Hemoglobin 9.3 g/dL (13.0-16.5); Lymphocyte % 19.4 % (19-41); Mean Corp Hgb Conc 32.1 g/dL (32-36); Mean Corpuscular Hgb 30.9 pg (27.0-32.0); Mean Corpuscular Volume 96.3 fL (80-94); Mean Platelet Vol. 9.9 fl (6.2-12.0); Monocyte# 0.76 X10^3/uL; Monocyte% 10.5 % (0-10); NRBC Flagged by Analyzer 0 % (0-5); Neutrophil # 4.69 X10^3/uL (2.7-7.7); Platelet Count 201 K/mm3 (150-450); RBC Distribution Width CV 14.9 % (11.6-14.6); RBC Distribution Width SD 50.5 fl (35.1-43.9); Red Blood Count 3.01 M/mm3 (4.6-6.2); White Blood Count 7.2 K/mm3 (4.4-11.0)
[2021-05-30 06:23] LABS: Anion Gap 5 (5-15); BUN 21 mg/dL (7-18); BUN/Creat Ratio 19.6 RATIO (10-20); Calcium,Total 8.3 mg/dL (8.5-10.1); Chloride 108 mmol/L (98-107); Creatinine, Serum 1.07 mg/dL (0.70-1.30); EST Glomerular Filtration Rate 71 mL/min (>60); Est Glom Filt Rate - Afr Amer 86 mL/min (>60); Estimated Creatinine Clearance 58.73 ml/min; Glucose 115 mg/dL (74-106); Potassium 3.7 mmol/L (3.5-5.1); Sodium Level 140 mmol/L (136-145)
[2021-05-30] MEDS: Aspirin E.C. 81 MG Tablet PO (09:17)
[2021-05-30] MEDS: Pantoprazole Sodium 40 MG Tablet PO (09:18)
[2021-05-30] MEDS: Fludrocortisone Acetate 0.1 MG Tablet PO ×2 (09:18→13:46)
[2021-05-30] MEDS: amLODIPine 10 MG Tablet PO (09:18)
[2021-05-30] MEDS: Potassium Chloride Oral Tablet 20 MEQ 40 MEQ PO (09:19)
[2021-05-30] MEDS: Clopidogrel Bisulfate 75 MG Tablet PO (09:22)
[2021-05-30 09:59] LABS: Vitamin B12 425 pg/mL (211-911)
--- NOTE | 2021-05-30 10:45 | CASEMGMT ---
Therapy came to [facility] and said [facility] to go to [facility] or [facility]. [facility] met with patient and he said he does not want to go back to [facility]. [facility]. [facility] let him know [facility] not [facility]. [facility]. [facility] then called Leena with [facility] and she said she will have the nurse review it but she does not see why they cannot take him. [facility] then called [employer] ([facility] that gets pre-certs for [facility]). [facility] then spoke with Duyen and gave her clinicals over the phone and also let her know that patient wants to go to [facility] and not [facility]. She will put in all of the information and she will call [facility] back with authorization and also fax a copy. Jo Ann Rocha [employer]IE [employer] [facility]
--- NOTE | 2021-05-30 11:16 | DS.PCM_ITS ---
Documented by User: Nancy Wiggisn NP, DYE RANGE OPERATOR CLOTH-C 05/30/21 11:26 Providers Date of Admission: 05/26/21 Date of Discharge: 05/30/21 Reason For Visit: DYSARTHRIA Diagnosis Discharge Diagnosis (1) Dysarthria: Status: Acute Code(s): R47.1 - Dysarthria and anarthria (2) Syncope and collapse: Status: Acute Code(s): R55 - Syncope and collapse Medications at Discharge Home Medications amlodipine 10 mg PO DAILY 05/26/21 aspirin [Aspirin Low Dose] 81 mg PO DAILY 05/26/21 atorvastatin 10 mg PO DAILY 05/26/21 clopidogrel [Plavix] 75 mg PO DAILY 05/26/21 potassium chloride 40 meq PO DAILY 05/26/21 pantoprazole 40 mg PO DAILY #0 tab 05/28/21 fludrocortisone 0.2 mg PO BREAKFAST #0 tab 05/30/21 Hospital Course Operations None Procedures Electroencephalogram Summary of Care Provided Minutes Spent on Discharge: 35 Hospital Course: Patient is a 75-year-old male admitted 05/26/2021 due to syncopal episode. 1. Recurrent syncope, secondary to orthostatic hypotension. Recent echocardiogram 05/11/2021 demonstrated an EF of 60%. No events on telemetry. Patient's orthostatic vital significantly positive. Initiated on Florinef per neurology recommendations. Provide assistance with position changes, continue monitoring orthostatic vitals at SNF. May increase Florinef by 0.1 mg/week up to 1 mg until effective. Follow-up with PCP and neurology at discharge. 2. Parkinsonism with recent onset confusion, hallucinations and worsening weakness-SOC neurology consult obtained who suspects parkinsonism. Initiated on Florinef for orthostatic hypotension as noted above. MRI negative for stroke. EEG completed which was negative for seizures. May try Sinemet on an outpatient basis. Follow-up with neurology, Dr. Jarvis. SNF at discharge for further therapies. 3. Acute kidney injury-resolved. 4. CAD with history of PCI-on aspirin, statin, Plavix. Recent heart cath with PCI 05/12/2021. Follow-up with cardiology as scheduled. 5. Hypertension-stable, continue amlodipine. Carvedilol, HCTZ discontinued. 6. Hyperlipidemia-continue statin. 7. DJD- PRN flexeril discontinued. Physical Exam Const no apparent distress Orientation / Consciousness: confused HEENT normocephalic and moist oral mucous membranes Eyes PERRL, EOMs intact bilaterally and conjunctivae normal Neck no lymphadenopathy Resp normal respiratory effort and clear to auscultation bilaterally Cardio regular rate, regular rhythm and no murmurs Peripheral Pulses: pulses 2+ throughout GI normal to inspection, nondistended, normoactive bowel sounds, non-tender and non-distended Extremity normal to inspection Skin no rashes or lesions noted Lesions: no lesions Rashes: no rashes Trauma: no lacerations or abrasions Neuro CN's II-XII intact bilaterally, no focal motor deficits, no sensory deficits noted and deep tendon reflexes 2+ bilaterally Psych mental status grossly normal and affect normal Patient seen and examined prior to discharge. Physical assessment as noted above. Patient is stable for discharge with follow up recommendations as noted above. This patient was seen by DEEJAY Burton under the supervision of Dr. Calle. Weight / BMI Weight Weight: 197 lb 8.547 oz Body Mass Index (BMI) 29.1 ABG / Lab / Microbiology Data Result Diagrams: 05/30/21 05:31 05/30/21 05:31 Laboratory: Laboratory Results - last 24 hr 05/28/21 05:44: Vitamin B12 425 05/29/21 12:14: WBC 8.8, RBC 3.25 L, Hgb 10.2 L, Hct 31.3 L, MCV 96.3 H, MCH 31.4, MCHC 32.6, RDW Std Deviation 50.1 H, RDW Coeff of Sophie 14.6, Plt Count 234, MPV 10.0 05/29/21 12:14: Sodium 139, Potassium 3.8, Chloride 106, Carbon Dioxide 26.0, Anion Gap 7, BUN 23 H, Creatinine 1.16, Estim Creat Clear Calc 54.18, Est GFR (MDRD) Af Amer 79, Est GFR (MDRD) Non-Af 65, BUN/Creatinine Ratio 19.8, Glucose 121 H, Calcium 8.3 L 05/30/21 05:31: WBC 7.2, RBC 3.01 L, Hgb 9.3 L, Hct 29.0 L, MCV 96.3 H, MCH 30.9, MCHC 32.1, RDW Std Deviation 50.5 H, RDW Coeff of Sophie 14.9 H, Plt Count 201, MPV 9.9, Immature Gran % (Auto) 1.200 H, Neut % (Auto) 65.0, Lymph % (Auto) 19.4, [place] % (Auto) 10.5 H, Eos % (Auto) 3.3, Baso % (Auto) 0.6, Absolute Neuts (auto) 4.7, Absolute Lymphs (auto) 1.40, Nucleated RBC % 0 05/30/21 05:31: Sodium 140, Potassium 3.7, Chloride 108 H, Carbon Dioxide 27.0, Anion Gap 5, BUN 21 H, Creatinine 1.07, Estim Creat Clear Calc 58.73, Est GFR (MDRD) Af Amer 86, Est GFR (MDRD) Non-Af 71, BUN/Creatinine Ratio 19.6, Glucose 115 H, Calcium 8.3 L Microbiology: Microbiology 05/29/21 19:10 Stool Stool Occult Blood (HESHAM) - Final 05/26/21 14:00 Nasal Secretion SARS-CoV-2 Antigen (Rapid) - Final Meaningful Use Info Meaningful Use Diagnoses (Choose all that apply): None applicable Discharge Plan Admission Admit Date/Time: 05/26/21 15:21 Primary Reason for Your Visit: Parkinsonism, orthostatic hypotension Attending Provider: Sharon Calle Instructions Additional Instructions / Restrictions: Patient Problems: Altered Health Status related to Hospitalization Patient Goals: *Optimal Level of Health *Keep Appointments *Medication Compliance *Remain Safe Discharge Orders/Prescriptions Prescriptions: New pantoprazole 40 mg Tablet,Delayed Release (Dr/Ec) 40 mg PO DAILY Qty: 0 RF: 0 fludrocortisone 0.1 mg Tablet 0.2 mg PO BREAKFAST Qty: 0 RF: 0 Continued clopidogrel [Plavix] 75 mg Tablet 75 mg PO DAILY RF: 0 aspirin [Aspirin Low Dose] 81 mg Tablet,Delayed Release (Dr/Ec) 81 mg PO DAILY RF: 0 potassium chloride 20 mEq Packet 40 meq PO DAILY RF: 0 amlodipine 10 mg Tablet 10 mg PO DAILY RF: 0 atorvastatin 10 mg tablet 10 mg PO DAILY RF: 0 Discontinued hydrochlorothiazide 12.5 MG capsule 12.5 mg PO DAILY RF: 0 cyclobenzaprine 10 mg tablet 10 mg PO Q6H PRN (Reason: Spasms) RF: 0 clopidogrel 300 mg Tablet 300 mg PO .X1 ON 05/26/21 RF: 0 carvedilol 3.125 mg tablet 9.375 mg PO DAILY RF: 0 Referrals / Follow Up: Jasson England MD [NON-STAFF] - In 1 Week Romeo Jarvis MD [NON-STAFF] - In 1 Week Gabriela King NP, DYE RANGE OPERATOR CLOTH-C [Nurse Practitioner] - See Referral Note (as scheduled 06/02/21) Disposition Disposition (needs filled in before D/C Order can be placed): [facility] Facility Documented by User: Dr. Sharon Calle MD 05/30/21 18:00 Providers Date of Admission: 05/26/21 Reason For Visit: DYSARTHRIA Medications at Discharge Home Medications amlodipine 10 mg PO DAILY 05/26/21 aspirin [Aspirin Low Dose] 81 mg PO DAILY 05/26/21 atorvastatin 10 mg PO DAILY 05/26/21 clopidogrel [Plavix] 75 mg PO DAILY 05/26/21 potassium chloride 40 meq PO DAILY 05/26/21 pantoprazole 40 mg PO DAILY #0 tab 05/28/21 fludrocortisone 0.2 mg PO BREAKFAST #0 tab 05/30/21 ABG / Lab / Microbiology Data Result Diagrams: 05/30/21 05:31 05/30/21 05:31 Discharge Plan Admission Admit Date/Time: 05/26/21 15:21 Primary Reason for Your Visit: Parkinsonism, orthostatic hypotension Attending Provider: Sharon Calle Instructions Additional Instructions / Restrictions: Patient Problems: Altered Health Status related to Hospitalization Patient Goals: *Optimal Level of Health *Keep Appointments *Medication Compliance *Remain Safe Discharge Orders/Prescriptions Prescriptions: New pantoprazole 40 mg Tablet,Delayed Release (Dr/Ec) 40 mg PO DAILY Qty: 0 RF: 0 fludrocortisone 0.1 mg Tablet 0.2 mg PO BREAKFAST Qty: 0 RF: 0 Continued clopidogrel [Plavix] 75 mg Tablet 75 mg PO DAILY RF: 0 aspirin [Aspirin Low Dose] 81 mg Tablet,Delayed Release (Dr/Ec) 81 mg PO DAILY RF: 0 potassium chloride 20 mEq Packet 40 meq PO DAILY RF: 0 amlodipine 10 mg Tablet 10 mg PO DAILY RF: 0 atorvastatin 10 mg tablet 10 mg PO DAILY RF: 0 Discontinued hydrochlorothiazide 12.5 MG capsule 12.5 mg PO DAILY RF: 0 cyclobenzaprine 10 mg tablet 10 mg PO Q6H PRN (Reason: Spasms) RF: 0 clopidogrel 300 mg Tablet 300 mg PO .X1 ON 05/26/21 RF: 0 carvedilol 3.125 mg tablet 9.375 mg PO DAILY RF: 0 Referrals / Follow Up: Jasson England MD [NON-STAFF] - In 1 Week Romeo Jarvis MD [NON-STAFF] - In 1 Week Gabriela King NP, DYE RANGE OPERATOR CLOTH-C [Nurse Practitioner] - See Referral Note (as scheduled 06/02/21) Disposition Disposition (needs filled in before D/C Order can be placed): [facility] Facility Charges/Coding Addendum Addendum: Patient seen by DEEJAY Burton under my supervision Patient is a 75-year-old male was admitted from the [facility] facility with a complaint of syncope after he was placed on a bedside commode. He had had a syncopal episode earlier in the month as well not had cardiac stent placed in the RCA about 2 weeks prior to this admission. CT of the brain done in the ED showed chronic ischemic and atrophic brain changes but no acute intracranial abnormality. He was admitted and managed for syncope and dysarthria which was thought to be possibly due to Parkinson's disease. MRI of the brain was negative for any acute intracranial pathology and MRA of the head and neck was also negative. Neurology was consulted and recommended an EEG which was also negative. Ammonia level was also not elevated. He was also started on Florinef for orthostatic hypotension. Patient remained stable. 2D echo done showed EF of 60%. Neurology recommended that patient be initiated on Sinemet on outpatient basis and follow-up with neurology on outpatient basis. Patient was discharged back to [facility] facility after obtaining insurance approval on 05/30/2021. He is to follow-up with his primary care doctor and neurology and to continue on his Florinef. Patient seen and examined prior to discharge. He had no complaints. Review of systems otherwise negative. Labs and vitals reviewed. Home medication reviewed and reconciled. O/E: Const alert, oriented x3 and no apparent distress Orientation / Consciousness: awake, oriented to person, oriented to place and oriented to time HEENT normocephalic and moist oral mucous membranes Eyes PERRL, EOMs intact bilaterally and conjunctivae normal Neck no lymphadenopathy Resp normal respiratory effort and clear to auscultation bilaterally Cardio regular rate, regular rhythm and no murmurs Peripheral Pulses: pulses 2+ throughout GI normal to inspection, nondistended, normoactive bowel sounds, non-tender and non-distended Extremity normal to inspection Skin no rashes or lesions noted Lesions: no lesions Rashes: no rashes Trauma: no lacerations or abrasions Neuro CN's II-XII intact bilaterally, no focal motor deficits, no sensory deficits noted and deep tendon reflexes 2+ bilaterally Psych mental status grossly normal and affect normal Plan is for discharge to SNF today. Rest as per Nancy Wiggins DYE RANGE OPERATOR CLOTH-C's note, which I have reviewed and endorsed. Visit Charges Inpatient E&M: 09224 Disch Hosp
--- NOTE | 2021-05-30 11:33 | PHA.DC.MR ---
Pharmacy Service has performed discharge medication reconciliation for this patient. The patient's discharge medication list was reviewed for discrepancies and discrepancies were resolved. Home Medications amlodipine 10 mg PO DAILY 05/26/21 aspirin [Aspirin Low Dose] 81 mg PO DAILY 05/26/21 atorvastatin 10 mg PO DAILY 05/26/21 clopidogrel [Plavix] 75 mg PO DAILY 05/26/21 potassium chloride 40 meq PO DAILY 05/26/21 pantoprazole 40 mg PO DAILY #0 tab 05/28/21 fludrocortisone 0.2 mg PO BREAKFAST #0 tab 05/30/21
--- NOTE | 2021-05-30 14:52 | CASEMGMT ---
DEVANTE did talk with Leena and they can take patient at [facility]. SW notified physician. Orders were copied and faxed to [facility]. DEVANTE arranged for patient to get picked up at 4p via [employer] van. SW went to notify patient, but he was sleeping. DEVANTE notified RN and administrative secretary. DEVANTE called patient's daughter and left her a voice mail letting her know about discharge and picker machine operator time. DEVANTE also faxed negative COVID test to [facility]. Plan: d/c to [facility] at [place] under skilled level of care. [facility] via [facility]. Jo Ann Rocha SUPERVISOR [employer] LULA
--- NOTE | 2021-05-30 16:21 | NURSING ---
This RN called and gave report to CALIN Castro at the [facility].
== END 2021-05-30 16:05 | disposition skilled nursing facility (03) | DRG 312 ==
LOC: ED 14:25 → PCU 14:44
PROVIDERS: Nurse Practitioner Family; Admitting Provider Internal Medicine; Emergency Provider Emergency Medicine; Visit Provider Student in an Organized Health Care Education/Training Program
DX: I95.1 Orthostatic hypotension (principal); N17.9 Acute kidney failure, unspecified; G93.40 Encephalopathy, unspecified; R47.1 Dysarthria and anarthria; G20 Parkinson's disease; I25.10 Atherosclerotic heart disease of native coronary artery without angina pectoris; R29.701 NIHSS score 1; I10 Essential (primary) hypertension; E78.5 Hyperlipidemia, unspecified; R29.6 Repeated falls; M51.36 Other intervertebral disc degeneration, lumbar region; K21.9 Gastro-esophageal reflux disease without esophagitis; E11.9 Type 2 diabetes mellitus without complications; Z95.5 Presence of coronary angioplasty implant and graft; Z87.891 Personal history of nicotine dependence; Z79.899 Other long term (current) drug therapy; Z79.02 Long term (current) use of antithrombotics/antiplatelets; Z79.82 Long term (current) use of aspirin
CPT/HCPCS: 36415; 36600; 70450; 70551; 71045; 72125; 80048; 81001; 82140; 82274; 82550; 82607; 82803; 82962; 84484; 85025; 85027; 85610; 85652; 85730; 87426; 92507; 92522; 92526; 92610; 93005; 94640; 95819; 97110; 97162; 97166; 97530; 97535; 99285; J7030; P9612; A4216

== ENCOUNTER → 2021-07-13 13:58 | Outpatient (CLI) | payer MEDICARE, SELFPAY ==
[2021-07-13 14:33] LABS: Absolute Lymphocyte Count 1.25 X10^3/uL (0.83-4.51); Absolute Neutrophil Count 3.4 X10^3/uL (2.0-7.7); Basophil# 0.04 X10^3/uL; Basophil% 0.7 % (0-1); Eosinophil# 0.59 X10^3/uL; Eosinophils% 10.2 % (0-5); Hemoglobin 8.3 g/dL (13.0-16.5); Lymphocyte # 1.25 X10^3/ul (0.83-4.51); Lymphocyte % 21.7 % (19-41); Mean Corp Hgb Conc 31.9 g/dL (32-36); Mean Corpuscular Hgb 30.4 pg (27.0-32.0); Mean Corpuscular Volume 95.2 fL (80-94); Mean Platelet Vol. 8.9 fl (6.2-12.0); Monocyte# 0.52 X10^3/uL; NRBC Flagged by Analyzer 0 % (0-5); Neutrophil # 3.35 X10^3/uL (2.7-7.7); Neutrophil % 58.2 % (47-70); Platelet Count 227 K/mm3 (150-450); RBC Distribution Width CV 14.3 % (11.6-14.6); RBC Distribution Width SD 50.6 fl (35.1-43.9); Red Blood Count 2.73 M/mm3 (4.6-6.2); White Blood Count 5.8 K/mm3 (4.4-11.0)
[2021-07-13 15:05] LABS: Anion Gap 5 (5-15); BUN 18 mg/dL (7-18); BUN/Creat Ratio 18.1 RATIO (10-20); Calcium,Total 8.4 mg/dL (8.5-10.1); Chloride 109 mmol/L (98-107); Creatinine, Serum 0.99 mg/dL (0.70-1.30); EST Glomerular Filtration Rate 78 mL/min (>60); Est Glom Filt Rate - Afr Amer 94 mL/min (>60); Glucose 101 mg/dL (74-106); Potassium 3.1 mmol/L (3.5-5.1); Sodium Level 140 mmol/L (136-145); Thyroid Stim Hormone (TSH) 0.72 uIU/mL (0.358-3.74)
== END ==
PROVIDERS: PCP Family Medicine; Referring Provider Nurse Practitioner Gerontology; Visit Provider Nurse Practitioner Gerontology
DX: I10 Essential (primary) hypertension (principal); R55 Syncope and collapse
CPT/HCPCS: 36415; 80048; 84443; 85025

== ENCOUNTER 2021-10-25 12:40 | Inpatient (IN) | payer MEDICARE, SELFPAY ==
[2021-10-25] VITALS (12 sets, daily range): BP systolic 160–221; BP diastolic 57–82; PULSE 60–83; RESP 14–21; TEMP 36.2–36.9; O2SAT 88–98; BMI 34.5; BMI 32.5
--- NOTE | 2021-10-25 13:02 | RAD_ITS ---
STUDY: X-RAY CHEST REASON FOR EXAM: Male, 76 years old. Sob TECHNIQUE: Single AP portable view of the chest. COMPARISON: Comparison is made with prior study 05/26/2021. FINDINGS: EKG electrodes are seen. There now is evidence of increased markings at the left lung base suggestive of a left basilar atelectasis and/or early infiltrate. Mild degree of vascular congestion. There is no demonstrated pleural abnormality. There is mild cardiac enlargement. Normal mediastinum and vandana. Normal visualized pulmonary arteries. There is atherosclerotic calcification of the aortic arch with tortuosity. Normal visualized thoracic spine. Normal visualized ribs, clavicles, and shoulders. Hiatal hernia. RAD/Chest 1 View (Portable) IMPRESSION: Cardiomegaly and vascular congestion with early infiltrate and/or atelectasis at the left lung base. Electronically Signed: Bhaskar Dyson MD at 14:17 EST ,
--- NOTE | 2021-10-25 13:02 | EKG12_ITS ---
Test Reason : SOB Blood Pressure : / mmHG Vent. Rate : 064 BPM Atrial Rate : 063 BPM P-R Int : 000 ms QRS Dur : 084 ms QT Int : 450 ms P-R-T Axes : 000 027 042 degrees QTc Int : 464 ms Sinus vs Ectopic Atrial Rhythm with prolonged MO interval Low voltage QRS (Limb Leads) Confirmed by PRITI DUMONT, RASHEED ([id number]), editor department VAUGHN KENT ([id number]) on 10/26/2021 9:24:17 AM Referred By: TAMI Confirmed By:RASHEED MARCOS MD
--- NOTE | 2021-10-25 13:04 | EX.ED.DYSGE1 ---
HPI History of Present Illness Chief Complaint: Shortness of Breath Informant: patient and family Narrative Narrative: History is from patient and daughter. Evidently he has been having some increased noise of breathing for about 3 days. He is also had swelling in both legs for at least this period of time and may be longer. He has a cough and is bringing up a small amount of clear sputum. Its not colored. Its not bloody. It is not frothy. He denies any chest pain or pain anywhere else. He denies fevers chills. No nausea vomiting diarrhea. He has been up walking around. He has a history of heart disease and blood pressure but reportedly has never had COPD or CHF. He is not on any inhalers. Nothing specifically makes his symptoms better or worse. He is not vaccinated against Covid but has no known exposure. [facility] Medical History (Updated 10/25/21 @ 16:[address] Elvin Malik MD) Anemia Anxiety Atherosclerotic heart disease of [place] coronary artery without angina pectoris Back pain Degenerative disc disease, lumbar Delirium Diabetes Former smoker GERD (gastroesophageal reflux disease) HLD (hyperlipidemia) Hypertension Orthostatic hypotension Parkinson's disease Presence of stent in coronary artery (~05/12/21) Syncope Vertigo Home Medications aspirin [Aspirin Low Dose] 81 mg PO DAILY 05/26/21 [History Last Taken 10/25/21] atorvastatin 10 mg PO DAILY 05/26/21 [History Last Taken 10/24/21] clopidogrel 75 mg tablet 75 mg PO DAILY #90 tab 07/20/21 [Rx Last Taken 10/25/21] amlodipine 5 mg tablet 5 mg PO DAILY #90 tab 09/12/21 [Rx Last Taken 10/25/21] carbidopa-levodopa 0.5 tab PO TID 10/25/21 [History Last Taken 10/25/21] cyanocobalamin (vitamin B-12) 1,000 mcg PO DAILY@1200 10/25/21 [History Last Taken 10/24/21] fludrocortisone 0.2 mg PO TID 10/25/21 [History Last Taken 10/25/21] folic acid 1 mg PO DAILY@1200 10/25/21 [History Last Taken 10/24/21] pantoprazole 40 mg PO DAILY PRN 10/25/21 [History Last Taken Unknown] potassium chloride 40 meq PO DAILY 10/25/21 [History Last Taken 10/25/21] Allergy/AdvReac Type Severity Reaction Status Date / Time No Known Allergies Allergy Verified 10/25/21 12:42 Surgical History Presence of coronary angioplasty implant and graft (~05/12/21) Social History Smoking Status: Former smoker ROS ROS ED Constitutional Constitutional ED: Denies chills, fever(s) or subjective Eyes Eyes: Denies blurry vision ENT ENT ED: Denies rhinorrhea or sore throat Cardiovascular Cardiovascular: Denies chest pain or palpitations Respiratory/Chest Respiratory/Chest: Reports cough, dyspnea and sputum Gastrointestinal Gastrointestinal: Denies abdominal pain, nausea or vomiting Genitourinary Genitourinary ED: Denies dysuria Musculoskeletal Musculoskeletal: Reports other Details: Positive extremity edema. ; Denies arthralgias or myalgias Integumentary Denies rash Neurologic Neurologic: Denies headache(s) Endocrine Endocrinology: Denies polydipsia or polyuria Allergic/Immunologic Allergic/Immunologic ED: Denies urticaria EXAM Physical Exam Const Vital Signs: 10/25/21 12:42 10/25/21 12:53 10/25/21 13:18 Temperature 97.2 F L Temperature Source Temporal Pulse Rate 63 64 Respiratory Rate 14 20 H Respiratory Pattern Normal Blood Pressure 221/82 H Blood Pressure Mean 128 Pulse Ox 97 88 Oxygen Delivery Method Room Air Room Air Oxygen Flow Rate (L/min) 10/25/21 14:41 10/25/21 15:07 Temperature Temperature Source Pulse Rate 67 70 Respiratory Rate 20 H 21 H Respiratory Pattern Tachypnea Blood Pressure Blood Pressure Mean Pulse Ox 97 Oxygen Delivery Method Nasal Cannula Oxygen Flow Rate (L/min) 2 Patient has significant audible wheezes that I can hear as I walk in the room. Yet he is surprisingly comfortable with this. Positive well nourished, well developed and obese General Appearance ED: well developed; Negative for cyanotic, diaphoretic or pallor Nutritional Appearance: obese HEENT Negative for trauma Eyes PERRL General Eye ED: Negative for pale conjunctiva Neck supple and no JVD Chest Wall inspection of chest normal Resp Resp Narrative: Slight increased respiratory effort. But his saturations are about 95% on 2 L. He has diffuse wheezing and very poor air motion throughout. I do not hear rhonchi or rales but he is not moving much air. Cardio regular rate and regular rhythm Rate: other Other Details: Difficult to hear tones over his wheezing. GI normal to inspection, nondistended, normoactive bowel sounds and non-tender Palpation: soft Back/Spine no CVA tenderness Extremity Extremity Narrative: Bilateral lower extremity edema. But there is no asymmetry. No palpable cords. No distended veins. Neuro Sensorium / Orientation: alert Psych mental status grossly normal Skin no rashes or lesions noted and no wounds General Skin Exam: Negative for jaundice or pallor MDM MDM MDM Narrative Medical decision making narrative: Patient's got much clear with treatment. But he still wheezing. I do not hear him from the mendez. But he still has obvious expiratory wheezes. I do not think this patient will do well at home. He is hypoxic and not on home oxygen. His Covid is negative. BNP is elevated but not markedly so. He had an ejection fraction of 60% back in May. CBC shows normal white count. He is not having fevers. Hemoglobin is low but that is higher than his last check. Electrolytes show no marked abnormalities. Troponin is negative. X-ray shows some increased congestion but he is also a large individual and he is sitting/laying in bed that might be altering the appearance of his film. We are adding RSV and influenza. Although this patient has history of smoking he has not smoked in many years and has never been diagnosed with COPD or used an inhaler. However he is wheezing quite a bit. This certainly could be COPD but also may be initiated by an infectious etiology. Case was discussed with the hospitalist. Lab Data Attestation: I reviewed the patient's lab results. Labs: Laboratory Results - last 24 hr 10/25/21 10/25/21 10/25/21 13:35 13:35 13:35 WBC 5.1 RBC 2.92 L Hgb 8.7 L Hct 28.0 L MCV 95.9 H MCH 29.8 MCHC 31.1 L RDW Std Deviation 55.5 H RDW Coeff of Sophie 15.9 H Plt Count 138 L MPV 10.6 Immature Gran % (Auto) 0.400 Neut % (Auto) 65.0 Lymph % (Auto) 17.4 L [place] % (Auto) 8.1 Eos % (Auto) 8.1 H Baso % (Auto) 1.0 Absolute Neuts (auto) 3.3 Absolute Lymphs (auto) 0.88 Nucleated RBC % 0 Sodium 140 Potassium 3.9 Chloride 109 H Carbon Dioxide 28.0 Anion Gap 3 L BUN 13 Creatinine 0.66 L Estim Creat Clear Calc 61.86 Est GFR (MDRD) Af Amer 151 Est GFR (MDRD) Non-Af 125 BUN/Creatinine Ratio 19.8 Glucose 86 Lactic Acid Calcium 8.3 L Troponin I High Sens 20 B-Natriuretic Peptide 373.3 H 10/25/21 13:35 WBC RBC Hgb Hct MCV MCH MCHC RDW Std Deviation RDW Coeff of Sophie Plt Count MPV Immature Gran % (Auto) Neut % (Auto) Lymph % (Auto) [place] % (Auto) Eos % (Auto) Baso % (Auto) Absolute Neuts (auto) Absolute Lymphs (auto) Nucleated RBC % Sodium Potassium Chloride Carbon Dioxide Anion Gap BUN Creatinine Estim Creat Clear Calc Est GFR (MDRD) Af Amer Est GFR (MDRD) Non-Af BUN/Creatinine Ratio Glucose Lactic Acid 0.4 Calcium Troponin I High Sens B-Natriuretic Peptide Radiography Diagnostic Testing: Clinical Impression(s) from Imaging Studies Chest X-Ray 10/25/21 13:02 IMPRESSION: Cardiomegaly and vascular congestion with early infiltrate and/or atelectasis at the left lung base. Electronically Signed: Bhaskar Dyson MD at 14:17 EST , Venous Doppler Study 10/25/21 13:08 Interpretation Summary No evidence for acute deep venous thrombosis bilateral lower extremities with patent and compressible bilateral great saphenous veins. Abbreviated COVID-19 protocol utilized Ordering Physician: Elvin Malik Performed By: Kamaljit Stanley RVT Discharge Plan Dx/Rx/DC Orders Clinical Impression: Acute respiratory failure with hypoxia, Hypertension, COPD exacerbation, CHF (congestive heart failure), Anemia Disposition Disposition: Acute Care [facility]
--- NOTE | 2021-10-25 13:08 | VDLE_ITS ---
Reason For Study: swelling RIGHT LEFT GSV is normal. GSV is normal. CFV is compressible. CFV is compressible. FV is compressible. FV is compressible. POP V is compressible. POP V is compressible. T/P Trunk is compressible. T/P Trunk is compressible. PTV is compressible. PTV is compressible. RT PerV is compressible. RT PerV is compressible. Procedure This is a venous duplex using B-mode, color flow and spectral Doppler. Exam performed portable in ED. The exam was abbreviated due to the COVID 19 protocol. The exam was diagnostic. A preliminary report was called and/or faxed to [facility]. VL/Venous Duplex US - Jose Juan Extrem Interpretation Summary No evidence for acute deep venous thrombosis bilateral lower extremities with p atent and compressible bilateral great saphenous veins. Abbreviated COVID-19 protocol uti lized Ordering Physician: Elvin Malik Performed By: Kamaljit Stanley RVT
[2021-10-25] MEDS: Albuterol 2.5 MG/3 ML VIAL.NEB. INHALATION (13:17)
[2021-10-25] MEDS: Ipratropium/Albuterol Sulfate 3 ML AMPUL.NEB INHALATION ×3 (13:18→20:05)
[2021-10-25 13:57] LABS: Absolute Lymphocyte Count 0.88 X10^3/uL (0.83-4.51); Absolute Neutrophil Count 3.3 X10^3/uL (2.0-7.7); Basophil# 0.05 X10^3/uL; Eosinophil# 0.41 X10^3/uL; Eosinophils% 8.1 % (0-5); Hemoglobin 8.7 g/dL (13.0-16.5); Lymphocyte # 0.88 X10^3/ul (0.83-4.51); Lymphocyte % 17.4 % (19-41); Mean Corp Hgb Conc 31.1 g/dL (32-36); Mean Corpuscular Hgb 29.8 pg (27.0-32.0); Mean Corpuscular Volume 95.9 fL (80-94); Mean Platelet Vol. 10.6 fl (6.2-12.0); Monocyte# 0.41 X10^3/uL; Monocyte% 8.1 % (0-10); NRBC Flagged by Analyzer 0 % (0-5); Neutrophil # 3.28 X10^3/uL (2.7-7.7); POSITIVE COUNT YES; Platelet Count 138 K/mm3 (150-450); RBC Distribution Width CV 15.9 % (11.6-14.6); RBC Distribution Width SD 55.5 fl (35.1-43.9); Red Blood Count 2.92 M/mm3 (4.6-6.2); White Blood Count 5.1 K/mm3 (4.4-11.0)
[2021-10-25 14:10] LABS: Anion Gap 3 (5-15); BUN 13 mg/dL (7-18); BUN/Creat Ratio 19.8 RATIO (10-20); Calcium,Total 8.3 mg/dL (8.5-10.1); Chloride 109 mmol/L (98-107); Creatinine, Serum 0.66 mg/dL (0.70-1.30); EST Glomerular Filtration Rate 125 mL/min (>60); Est Glom Filt Rate - Afr Amer 151 mL/min (>60); Estimated Creatinine Clearance 61.86 ml/min; Glucose 86 mg/dL (74-106); Potassium 3.9 mmol/L (3.5-5.1); Sodium Level 140 mmol/L (136-145); Troponin-I HS 20 pg/mL (3.0-78.0)
[2021-10-25 14:12] LABS: Lactic Acid 0.4 mmol/L (0.4-1.9)
[2021-10-25 14:18] LABS: Differential Indicated SCAN CRITERIA MET
[2021-10-25 14:19] LABS: BNP,B-Type NATRIURETIC PEPTIDE 373.3 pg/mL (0-100)
[2021-10-25] MEDS: MethylPREDNISolone 125 MG/2 ML Vial IV (15:02)
[2021-10-25] MEDS: Labetalol (Prefilled) 20 MG/4 ML 10 MG IV (15:48)
--- NOTE | 2021-10-25 16:30 | CASEMGMT ---
CALIN TORREZ to room to meet with patient for initial transition planning/care coordination assessment. CALIN TORREZ introduced self and role at [facility]. Patient voices understanding and consents to assessment at this time. Patient's daughter Libia present at bedside and provides additional history. Patient is alert and oriented, sitting up on ER cart in no apparent distress and answers all questions appropriately. Care providers, pharmacy, and demographics verified/updated at this time. PCP: Tomás Specialists: Wendy- cardiology, Dr. Romeo Jarvis- neurology Preferred Pharmacy: [facility] Insurance: [facility] Prescription Benefit: Patient's daughter states patient uses [facility] for most prescription medications. Living Will/HPOA: Patient has a living will and HPOA is daughter Libia Cooeny. These forms are on file at [facility]. LNOK: Daughter, Libia Cooney Living Arrangements: Patient lives alone in first floor, single story apartment with no steps to enter. Patient's daughter states patient is independent with ADLs- bathing, dressing and cooking. Patient's daughter and granddaughter live close and check on patient frequently. Patient's daughter reports she has a installed camera in patient's apartment so that she may monitor him using her cell phone. Smoking/ETOH: Former smoker, denies ETOH or drug use Transportation: Patient does not drive (since March 2021). Patient's daughter drives patient and they deny transportation concerns. DME/HHC/SNF: Patient ambulates with the use of a FWW. Also available in the home: [id number] transfer bench, tub bench, grab bars, raised toilet seat, hospital bed (needs mattress, per daughter), pulse oximetry monitor, glucometer and [employer] urine collection system. Patient has home oxygen supplied through [employer] and daughter reports ordered at 2 LPM at bedtime (daughter reports patient does not use oxygen as he is often restless during the night and has difficulty keeping oxygen in place). Patient has had previous HHC with [facility]. Daughter reports planned for [facility] in August 2021 but this was not established. During the past four months, patient has had SNF stays at [facility] and [facility]. Patient's daughter expresses strong feelings against [facility] and [facility] and states these would never be considered an option for patient. [facility]'s Medical Alert Program flier provided to patient's daughter per request. Patient wishes to return home with HHC at time of discharge. Patient's daughter agrees and emphasizes patient's strong family support at home. CM to follow for any discharge planning/needs. Patient and daughter voice no concerns/needs at this time. Advised patient and daughter to ask for CM if any questions/concerns/needs arise. Voice understanding. Plan/goal: home with HHC
--- NOTE | 2021-10-25 16:42 | HP.PCM.HOS_ITS ---
HPI - General General Date of Admission: 10/25/21 Date of Service: 10/25/21 Chief Complaint: Shortness of breath HPI Narrative KERRY VALDES, is a 76 M who presented to the emergency department [facility] on 10/25/2021 with his daughter complaining of shortness of breath. The patient is currently living alone however they have a video monitor that monitors him at home and family checks in quite frequently. Evidently for approximately 3 days the patient has had some increase shortness of breath, wheezing especially noted with exertion, and an intermittent cough that is productive of clear sputum. He has had no fever or chills, anosmia, dysgeusia, diarrhea nausea or vomiting. His daughter does note that he has had some increased lower extremity edema that is worse than his baseline. He is currently being evaluated by neurology with regards to syncopal episodes, hallucinations, and memory loss. He had a very extensive cardiac work-up in May of this past year at which time stents were placed in his RCA. He was started on Florinef approximately 3 weeks ago by his neurologist and is continuing to undergo work-up with regards to the above-mentioned neurological issues. He has not been vaccinated for Covid although family is interested. In the emergency department he was afebrile with a normal heart rate in the 60s to 80s. His blood pressure was markedly elevated at 189-221/57/82. His respira tory rate was slightly tachypneic with respiratory rates at 19-21 and his oxygen saturations were found to be 88% on room air but improved to 95 to 97% on 2 L nasal cannula. His CBC shows a normal white count with a chronic stable macrocytic anemia and mild thrombocytopenia with a platelet count of 138. He has no left shift. BMP shows normal electrolytes with a normal BUN and creatinine and glucose. His lactic acid was 0.4. A troponin was obtained and found to be 20. A BNP was obtained and found to be 373.3. I have no previous data with which to compare compare this. His chest x-ray shows cardiomegaly and vascular congestion with some atelectasis versus an early infiltrate in the left lung base. His EKG appears to be normal sinus rhythm with no ST-T wave changes consistent with ischemia. Given his hypoxia request for admission was made. [facility] Medical History Anemia Anxiety Atherosclerotic heart disease of [place] coronary artery without angina pectoris Back pain Degenerative disc disease, lumbar Delirium Diabetes Former smoker GERD (gastroesophageal reflux disease) Hallucinations HLD (hyperlipidemia) Hypertension Macrocytic anemia Orthostatic hypotension Parkinson's disease Presence of stent in coronary artery (~05/12/21) Short-term memory loss Syncope Vertigo Home Medications aspirin [Aspirin Low Dose] 81 mg PO DAILY 05/26/21 [History Last Taken 10/25/21] atorvastatin 10 mg PO DAILY 05/26/21 [History Last Taken 10/24/21] clopidogrel 75 mg tablet 75 mg PO DAILY #90 tab 07/20/21 [Rx Last Taken 10/25/21] amlodipine 5 mg tablet 5 mg PO DAILY #90 tab 09/12/21 [Rx Last Taken 10/25/21] carbidopa-levodopa 0.5 tab PO TID 10/25/21 [History Last Taken 10/25/21] cyanocobalamin (vitamin B-12) 1,000 mcg PO DAILY@1200 10/25/21 [History Last Taken 10/24/21] fludrocortisone 0.2 mg PO TID 10/25/21 [History Last Taken 10/25/21] folic acid 1 mg PO DAILY@1200 10/25/21 [History Last Taken 10/24/21] pantoprazole 40 mg PO DAILY PRN 10/25/21 [History Last Taken Unknown] potassium chloride 40 meq PO DAILY 10/25/21 [History Last Taken 10/25/21] Allergy/AdvReac Type Severity Reaction Status Date / Time No Known Allergies Allergy Verified 10/25/21 12:42 no significant family history Surgical History Presence of coronary angioplasty implant and graft (~05/12/21) Social History (Updated 10/25/21 @ 17:[address] Lori Altamirano DO) Smoking Status: Former smoker alcohol intake: never substance use type: does not use ROS Constitutional Constitutional: Reports weakness; Denies anorexia, change in weight, chills, fatigue, fever(s), malaise, night sweats or other Eyes Eyes: Denies blurry vision, change in eye color, change in vision, discharge from eye(s), double vision, erythema, eye pain, loss of vision or other ENT HEENT: Denies abnormal hearing, dysphagia, ear pain, epistaxis, headache(s), hearing loss, nasal congestion, nasal discharge, post nasal drip, sinus pressure, sore throat or other Cardiovascular Cardiovascular: Reports dyspnea on exertion, edema and syncope; Denies chest pain, claudication, lightheadedness, orthopnea, palpitations, paroxysmal nocturnal dyspnea, rapid heart rate or other Respiratory/Chest Respiratory/Chest: Reports cough, dyspnea, productive cough, shortness of breath with exertion and wheezing; Denies excessive phlegm production, hemoptysis, sh ortness of breath at rest or other Gastrointestinal Gastrointestinal: Denies abdominal pain, coffee ground emesis, constipation, diarrhea, dyspepsia, hematemesis, hematochezia, loose stools, melena, nausea, vomiting or other Genitourinary Genitourinary: Reports nocturia and urinary hesitancy; Denies burning urination, difficulty urinating, dysuria, hematuria, urinary frequency, urinary incontinence, urinary urgency or other Musculoskeletal Musculoskeletal: Denies arthralgias, back pain, joint pain, joint stiffness, joint swelling, myalgias, neck pain or other Neurologic Neurologic: Reports abnormal gait, confusion and syncope; Denies abnormal speech, disequilibrium, dizziness, focal weakness, headache(s), numbness, paresthesias, seizure-like activity, seizures, tingling, tremor(s) or other Psychiatric Psychiatric: Denies anxiety, depression, homicidal ideation, suicidal ideation or other Endocrine Endocrinology: Denies change in body appearance, cold intolerance, excessive sweating, heat intolerance, polydipsia, polyuria or other Hematologic/Lymphatic Hematologic/Lymphatic: Denies anemia, easy bleeding, easy bruising, lymph adenopathy or other Allergic/Immunologic Allergic/Immunologic: Denies rhinitis, hives, eczemia, asthma or other Vital Signs Vital Signs Vital Signs: 10/25/21 12:42 10/25/21 12:53 10/25/21 13:18 Temperature 97.2 F L Temperature Source Temporal Pulse Rate 63 64 Respiratory Rate 14 20 H Respiratory Effort Respiratory Depth Respiratory Pattern Normal Blood Pressure 221/82 H Blood Pressure Mean 128 Pulse Ox 97 88 Oxygen Delivery Method Room Air Room Air Oxygen Flow Rate (L/min) 10/25/21 14:41 10/25/21 15:07 10/25/21 15:42 Temperature 97.2 F L Temperature Source Temporal Pulse Rate 67 70 61 Respiratory Rate 20 H 21 H 15 Respiratory Effort Respiratory Depth Respiratory Pattern Tachypnea Blood Pressure 191/65 H Blood Pressure Mean 107 Pulse Ox 97 95 Oxygen Delivery Method Nasal Cannula Nasal Cannula Oxygen Flow Rate (L/min) 2 2 10/25/21 15:43 10/25/21 15:44 10/25/21 16:00 Temperature 97.2 F L Temperature Source Temporal Pulse Rate 82 60 Respiratory Rate 19 H 19 H Respiratory Effort Short of Breath Respiratory Depth Normal Respiratory Pattern Normal Blood Pressure 191/80 H 189/57 H Blood Pressure Mean 117 101 Pulse Ox 95 95 Oxygen Delivery Method Nasal Cannula Room Air Nasal Cannula Oxygen Flow Rate (L/min) 2 Weight Weight: 106.141 kg Body Mass Index (BMI) 34.5 Physical Exam Const alert, oriented x3, no apparent distress and well nourished Constitutional Narrative: Overweight older white male sitting up in bed and is alert and oriented x3 although is having intermittent hallucinations which is apparently his baseline per discussion with his daughter and some mild confusion General Appearance: cooperative HEENT normocephalic, head/scalp atraumatic and moist oral mucous membranes HEENT Narrative: Mildly hard of hearing, dentures in place, Mallampati 2-3, no thrush Eyes PERRL and EOMs intact bilaterally Eyes Narrative: Slightly pale conjunctiva bilaterally, no scleral icterus Neck no lymphadenopathy, supple, no JVD and no carotid bruits Neck Narrative: Neck is short and thick, supple, thyroid is normal on palpation Resp normal respiratory effort, no retractions and no use of accessory muscles Resp Narrative: Diffuse scattered wheezing however some of the sounds like upper airway, slight crackles at bases bilaterally Auscultation: crackles and wheezes; Negative for rales or rhonchi Cardio regular rate, regular rhythm, S1 normal heart sound, S2 normal heart sound, no murmurs, no rub, no gallops, no clicks and no JVD GI normal to inspection, nondistended, normoactive bowel sounds, soft to palpation, non-tender and non-distended Extremity Extremity Narrative: Bilateral lower extremity edema that is pitting in nature, hand pitting edema noted as well, no cyanosis or clubbing Peripheral Pulses: Yes pulses 2+ throughout Skin no rashes or lesions noted, no wounds, skin turgor normal, no jaundice, no petechiae and no mottling Skin Narrative: Bilateral lower extremity onychomycosis Neuro oriented x3, CN's II-XII intact bilaterally, moves all extremities and no focal motor deficits Neuro Narrative: Generalized weakness noted Sensorium / Orientation: awake and alert Speech: speech normal Psych Psych Narrative: Patient with intermittent hallucinations and odd behaviors, patient is trying to smoke his pulse oximeter while I am at the bedside-his daughter states that he does this at home frequently as well and has been for some time Results Lab / Micro Data Attestation: I reviewed the patient's lab results. Result Diagrams: 10/25/21 13:35 10/25/21 13:35 Labs: Laboratory Results - last 24 hr 10/25/21 13:35: WBC 5.1, RBC 2.92 L, Hgb 8.7 L, Hct 28.0 L, MCV 95.9 H, MCH 29.8, MCHC 31.1 L, RDW Std Deviation 55.5 H, RDW Coeff of Sophie 15.9 H, Plt Count 138 L, MPV 10.6, Immature Gran % (Auto) 0.400, Neut % (Auto) 65.0, Lymph % (Auto) 17.4 L, Toombs % (Auto) 8.1, Eos % (Auto) 8.1 H, Baso % (Auto) 1.0, Absolute Neuts (auto) 3.3, Absolute Lymphs (auto) 0.88, Nucleated RBC % 0 10/25/21 13:35: Sodium 140, Potassium 3.9, Chloride 109 H, Carbon Dioxide 28.0, Anion Gap 3 L, BUN 13, Creatinine 0.66 L, Estim Creat Clear Calc 61.86, Est GFR (MDRD) Af Amer 151, Est GFR (MDRD) Non-Af 125, BUN/Creatinine Ratio 19.8, Glucose 86, Calcium 8.3 L, Troponin I High Sens 20 10/25/21 13:35: B-Natriuretic Peptide 373.3 H 10/25/21 13:35: Lactic Acid 0.4 Micro: Microbiology 10/25/21 13:35 Nasal Secretion SARS-CoV-2 Antigen (Rapid) - Final Radiology Impression Chest X-Ray 10/25/21 13:02 IMPRESSION: Cardiomegaly and vascular congestion with early infiltrate and/or atelectasis at the left lung base. Electronically Signed: Bhaskar Dyson MD at 14:17 EST , Venous Doppler Study 10/25/21 13:08 Interpretation Summary No evidence for acute deep venous thrombosis bilateral lower extremities with patent and compressible bilateral great saphenous veins. Abbreviated COVID-19 protocol utilized Ordering Physician: Elvin Malik Performed By: Kamaljit Stanley RVT Assessment & Plan Assessment/Plan (1) Hypertensive urgency: (2) Hypoxia: (3) Elevated brain natriuretic peptide (BNP) level: (4) Lower extremity edema: PLAN: Acute hypoxia -Etiology is not quite clear at this time -Patient has mixed presentation and suspect this is either cardiogenic with cough and wheezing related to acute diastolic/right-sided heart failure versus acute exacerbation of COPD versus a combination of both. -Check echocardiogram -Last echo was from 05/11/2021 and showed an EF of 60% with trivial valvular lower insufficiency but was not clear enough to assess diastolic dysfunction or RV systolic pressures -I do suspect that the patient might have some elevated pulmonary artery pressures and some diastolic dysfunction -Lasix 40 mg IV push twice daily -Start Solu-Medrol 40 every 8 -As needed and scheduled aerosols -Check sputum culture if patient is able to produce -Check RSV and influenza panel -Covid rapid is negative -Chest x-ray is more consistent with a volume overload pattern but this could be a viral pneumonia/pneumonitis as well -Currently requiring 2 L oxygen with an SPO2 of 95 to 97% -Was 88% on room air and patient is not oxygen dependent at baseline Hypertensive urgency -Patient is on Florinef for some syncopal episodes -Started about 3 weeks ago -New at this point but it could be contributing to his elevated blood pressures -Lasix as above -Continue home medications for hypertension -May be contributing to his elevated BNP/diastolic heart failure pattern -As needed hydralazine available for systolic greater than 160 -May need up titration versus new medications initiated for his blood pressure Bilateral lower extremity edema -Dopplers negative for DVT -Lasix as above -Work-up for heart failure pending -Check TSH -Patient with chronic lower extremity edema but this is worse than his baseline/upper extremities distally are also a little bit puffy CAD/HTN/HPL -Patient had stent placement in May of this past year -The notes for details -Continue low-dose aspirin -Continue atorvastatin -Continue Plavix -Continue amlodipine GERD -Continue Protonix History of syncopal episodes -Work-up is in progress -Florinef was started with regards to this approximately 3 weeks ago -Follows with Dr. Jarvis from neurology Lewy body dementia/Parkinson's disease -Diagnosis has not yet been confirmed although work-up is in progress and suspected -Continue carbidopa levodopa -Patient having intermittent hallucinations and short-term memory loss for some time now -Follows with Dr. Jarvis from neurology History of COPD -Remote history of tobacco abuse -It does not appear the patient has any PFTs on record at this institution although he does follow at the [facility] -He is not on any current inhalers -We will utilize pulmonary toilet as above Chronic macrocytic anemia -Hemoglobin is stable -Continue to monitor DVT prophylaxis -Lovenox 40 mg daily -SCDs CODE STATUS -DNR CCA with no intubation as per discussion with the patient's daughter who was present with him in the emergency department upon presentation Charges/Coding Visit Charges Inpatient E&M: 30980 Init Hosp L3
--- NOTE | 2021-10-25 16:57 | PCS.PANDOC ---
PANDEMIC DOCUMENTATION INITIATED: Date: 05/16/2021 Time: 190
--- NOTE | 2021-10-25 17:05 | ECHOD_ITS ---
Reason For Study: CHF Procedure This was a 2D Doppler, Color Flow transthoracic echocardiogram. Patient was very agitated towards the end of the study, unable to obtain subcostals and SSN. The study was technically difficult. Exam performed portable in patient room. Left Ventricle Normal LV size. Left ventricular systolic function is normal. The estimated ejection fraction is 70 %. Diastolic function is indeterminate. No regional wall motion abnormalities noted. Right Ventricle Normal RV size. Normal systolic function. Atria The left atrium is mildly enlarged. Normal right atrium. No doppler evidence for ASD. Mitral Valve There is no mitral annular calcification. Normal mitral valve. Mild (1+) mitral valve insufficiency. Tricuspid Valve Normal tricuspid valve. Trivial tricuspid valve insufficiency. Right ventricular systolic pressure estimated to be 39 mmHg. Aortic Valve Trisinus/trileaflet aortic valve. Normal aortic valve. Trivial aortic valve insufficiency. Pulmonic Valve The pulmonic valve is not well visualized. Great Vessels The aortic root is not well visualized. Pericardium/Pleural No pericardial effusion. MMode/2D Measurements & Calculations LVIDd: 6.0 cm IVSd: 1.1 cm LAV(MOD-bp): 81.3 ml LVIDs: 3.6 cm LVPWd: 0.94 cm LAV(MOD-bp) Indexed: 37.0 ml/m2 RVDd: 4.0 cm FS: 39.6 % LAV(MOD-sp2): 76.9 ml LAV(MOD-sp4): 84.8 ml SV(MOD-sp4): 89.4 ml SV(sp4-el): 94.3 ml LVAd ap4: 43.4 cm2 LVLd ap4: 10.5 cm EDV(MOD-sp4): 149.3 ml EDV(sp4-el): 152.1 ml LVAs ap4: 23.6 cm2 LVLs ap4: 8.2 cm ESV(MOD-sp4): 59.9 ml ESV(sp4-el): 57.7 ml EF(MOD-sp4): 59.9 % EF(sp4-el): 62.0 % LA A4 area: 26.3 cm2 RA A4 area: 21.4 cm2 Doppler Measurements & Calculations MV E max mike: 95.6 cm/sec Lat Peak E' Mike: 10.2 cm/sec Med Peak E' Mike: 6.8 cm/sec MV A max mike: 156.2 cm/sec E/E' lat: 9.4 E/E' med: 14.0 MV E/A: 0.61 Ao V2 max: 166.5 cm/sec LV V1 max: 142.2 cm/sec PA V2 max: 124.2 cm/sec Ao max P.1 mmHg LV V1 max P.1 mmHg Ao V2 mean: 121.4 cm/sec Ao mean P.4 mmHg Ao V2 VTI: 35.0 cm TR max mike: 298.2 cm/sec TR max P.6 mmHg ECHO/Echo Complete Interpretation Summary The study was technically difficult. Left ventricular systolic function is normal. The estimated ejection fraction is 70 %. The left atrium is mildly enlarged. Mild (1+) mitral valve insufficiency. Trivial tricuspid valve insufficiency. Trivial aortic valve insufficiency. Right ventricular systolic pressure estimated to be 39 mmHg. Diastolic function is indeterminate. Ordering Physician: Lori Altamirano Referring Physician: Jasson England Performed By: Humera James, JUANITA, RVT
[2021-10-25 17:35] LABS: Thyroid Stim Hormone (TSH) 1.25 uIU/mL (0.358-3.74)
[2021-10-25] MEDS: Furosemide 40 MG/4 ML Vial IV (17:48)
[2021-10-25] MEDS: 0.9% Saline Lock 10 ML Syringe IV ×2 (17:53→21:58)
[2021-10-26] VITALS (15 sets, daily range): BP systolic 165–180; BP diastolic 68–98; PULSE 78–93; RESP 16–24; TEMP 36.7–37.6; O2SAT 93–99
[2021-10-26] MEDS: Ipratropium/Albuterol Sulfate 3 ML AMPUL.NEB INHALATION ×6 (00:40→18:45)
[2021-10-26] MEDS: hydrALAZINE 20 MG/ML Vial 10 MG IV ×2 (02:29→15:14)
[2021-10-26] MEDS: 0.9% Saline Lock 10 ML Syringe IV ×3 (02:30→17:28)
[2021-10-26 05:46] LABS: Absolute Lymphocyte Count 0.48 X10^3/uL (0.83-4.51); Absolute Neutrophil Count 3.5 X10^3/uL (2.0-7.7); Basophil# 0.01 X10^3/uL; Basophil% 0.2 % (0-1); Hematocrit 27.4 % (40-54); Lymphocyte # 0.48 X10^3/ul (0.83-4.51); Lymphocyte % 11.7 % (19-41); Mean Corp Hgb Conc 32.8 g/dL (32-36); Mean Corpuscular Hgb 30.8 pg (27.0-32.0); Mean Corpuscular Volume 93.8 fL (80-94); Mean Platelet Vol. 9.9 fl (6.2-12.0); Monocyte% 2.4 % (0-10); NRBC Flagged by Analyzer 0 % (0-5); Neutrophil # 3.49 X10^3/uL (2.7-7.7); POSITIVE DIFFERENTIAL YES; Platelet Count 166 K/mm3 (150-450); RBC Distribution Width CV 15.7 % (11.6-14.6); RBC Distribution Width SD 53.7 fl (35.1-43.9); Red Blood Count 2.92 M/mm3 (4.6-6.2); White Blood Count 4.1 K/mm3 (4.4-11.0)
[2021-10-26 05:57] LABS: Differential Indicated SCAN CRITERIA MET
[2021-10-26 06:13] LABS: Anisocytosis 1+
[2021-10-26] MEDS: Fludrocortisone Acetate 0.1 MG Tablet 0.2 MG PO ×3 (07:42→17:27)
[2021-10-26] MEDS: Aspirin E.C. 81 MG Tablet PO (07:42)
[2021-10-26] MEDS: Folic Acid 1 MG Tablet PO (07:42)
[2021-10-26] MEDS: Potassium Chloride Oral Tablet 20 MEQ 40 MEQ PO ×2 (07:43→17:27)
[2021-10-26 07:54] LABS: Phosphorus 2.8 mg/dL (2.5-4.9)
[2021-10-26 07:55] LABS: ALB/GLOB Ratio 1.1 RATIO (0.9-2.4); AST(SGOT) 19 U/L (15-37); Alanine Aminotransfer ALT/SGPT 20 U/L (16-61); Albumin, Serum 3.4 g/dL (3.2-5.0); Alkaline Phosphatase 90 U/L (45-117); Anion Gap 9 (5-15); BUN 15 mg/dL (7-18); Calcium,Total 8.3 mg/dL (8.5-10.1); Chloride 108 mmol/L (98-107); Creatinine, Serum 0.88 mg/dL (0.70-1.30); EST Glomerular Filtration Rate 89 mL/min (>60); Est Glom Filt Rate - Afr Amer 108 mL/min (>60); Estimated Creatinine Clearance 72.59 ml/min; Globulin 3.2 g/dL (2.2-4.2); Glucose 154 mg/dL (74-106); Magnesium 2.7 mg/dL (1.6-2.6); Potassium 3.1 mmol/L (3.5-5.1); Protein, Total 6.6 g/dL (6.4-8.2); Sodium Level 143 mmol/L (136-145)
[2021-10-26] MEDS: Furosemide 40 MG/4 ML Vial IV ×2 (09:54→17:28)
[2021-10-26] MEDS: Atorvastatin Calcium 10 MG Tablet PO (09:54)
[2021-10-26] MEDS: amLODIPine 5 MG Tablet PO (09:55)
[2021-10-26] MEDS: Cyanocobalamin 500 MCG Tablet 1000 MCG PO (09:55)
[2021-10-26] MEDS: Clopidogrel Bisulfate 75 MG Tablet PO (09:55)
[2021-10-26] MEDS: Pantoprazole Sodium 40 MG Tablet PO (09:55)
[2021-10-26] MEDS: Enoxaparin 40 MG/0.4 ML Syringe SC (09:55)
[2021-10-26] MEDS: Carbidopa/Levodopa 25/100 Tablet PO ×2 (10:08→15:15)
--- NOTE | 2021-10-26 10:20 | CASEMGMT ---
Pt screened with [facility] Palliative Care Screening Tool, pt met criteria. Order obtained, email to Palliative for referral.
--- NOTE | 2021-10-26 11:48 | PCM.PN.HOSP ---
Documented by User: Neil WHALEY 10/26/21 12:06 Subjective Subjective Patient is a 76-year-old male lying in bed, alert and orient x3. Although patient is appropriately alert and oriented, he is having visual hallucinations of his in the room and seems to perseverate on the issue. According to patient's daughter this is normal for him, and episodes seem to increase during hospital admission. Patient denies any shortness of breath currently or development of any new symptoms overnight. Does not appear in acute distress. Objective Data Objective Data Vital Signs: Vital Signs Temp Pulse Resp BP Pulse Ox 98.4 F 85 18 172/68 H 98 10/26/21 07:26 10/26/21 10:48 10/26/21 10:48 10/26/21 07:26 10/26/21 07:26 Oxygen Flow Rate (L/min) 2 Oxygen Delivery Method Nasal Cannula Weight: 225 lb 15.581 oz Body Mass Index (BMI) 32.5 Intake & Output: Intake and Output for Last 24 Hours 10/24/21 10/25/21 10/26/21 23:59 23:59 23:59 Output Total 1300 / 1300 200 / 200 Balance -1300 / -1300 -200 / -200 Lab / Micro Data Result Diagrams: 10/26/21 05:21 10/26/21 05:21 Labs: Laboratory Results - last 24 hr 10/25/21 13:35: WBC 5.1, RBC 2.92 L, Hgb 8.7 L, Hct 28.0 L, MCV 95.9 H, MCH 29.8, MCHC 31.1 L, RDW Std Deviation 55.5 H, RDW Coeff of Sophie 15.9 H, Plt Count 138 L, MPV 10.6, Immature Gran % (Auto) 0.400, Neut % (Auto) 65.0, Lymph % (Auto) 17.4 L, [place] % (Auto) 8.1, Eos % (Auto) 8.1 H, Baso % (Auto) 1.0, Absolute Neuts (auto) 3.3, Absolute Lymphs (auto) 0.88, Nucleated RBC % 0 10/25/21 13:35: Sodium 140, Potassium 3.9, Chloride 109 H, Carbon Dioxide 28.0, Anion Gap 3 L, BUN 13, Creatinine 0.66 L, Estim Creat Clear Calc 61.86, Est GFR (MDRD) Af Amer 151, Est GFR (MDRD) Non-Af 125, BUN/Creatinine Ratio 19.8, Glucose 86, Calcium 8.3 L, Troponin I High Sens 20 10/25/21 13:35: B-Natriuretic Peptide 373.3 H 10/25/21 13:35: Lactic Acid 0.4 10/25/21 13:35: TSH 1.25 10/26/21 05:21: WBC 4.1 L, RBC 2.92 L, Hgb 9.0 L, Hct 27.4 L, MCV 93.8, MCH 30.8, MCHC 32.8 D, RDW Std Deviation 53.7 H, RDW Coeff of Sophie 15.7 H, Plt Count 166, MPV 9.9, Immature Gran % (Auto) 0.700, Neut % (Auto) 85.0 H, Lymph % (Auto) 11.7 L, [place] % (Auto) 2.4, Eos % (Auto) 0.0, Baso % (Auto) 0.2, Absolute Neuts (auto) 3.5, Absolute Lymphs (auto) 0.48 L, Nucleated RBC % 0, Diff Path Review May foll, Anisocytosis 1+ 10/26/21 05:21: Sodium 143, Potassium 3.1 L, Chloride 108 H, Carbon Dioxide 26.0, Anion Gap 9, BUN 15, Creatinine 0.88, Estim Creat Clear Calc 72.59, Est GFR (MDRD) Af Amer 108, Est GFR (MDRD) Non-Af 89, BUN/Creatinine Ratio 17.0, Glucose 154 H, Calcium 8.3 L, Magnesium 2.7 H, Total Bilirubin 0.60, AST 19, ALT 20, Alkaline Phosphatase 90, Total Protein 6.6, Albumin 3.4, Globulin 3.2, Albumin/Globulin Ratio 1.1 10/26/21 05:21: Phosphorus 2.8 Micro: Microbiology 10/25/21 15:45 Mucosa - Nose Influenza Types A,B Direct FA (HESHAM) - Final 10/25/21 15:45 Mucosa - Nasopharyngeal Rapid RSV (DFA) - Final 10/25/21 13:35 Nasal Secretion SARS-CoV-2 Antigen (Rapid) - Final Radiography Diagnostic Testing: Radiology Impression Chest X-Ray 10/25/21 13:02 IMPRESSION: Cardiomegaly and vascular congestion with early infiltrate and/or atelectasis at the left lung base. Electronically Signed: Bhaskar Dyson MD at 14:17 EST , Venous Doppler Study 10/25/21 13:08 Interpretation Summary No evidence for acute deep venous thrombosis bilateral lower extremities with patent and compressible bilateral great saphenous veins. Abbreviated COVID-19 protocol utilized Ordering Physician: Elvin Malik Performed By: Kamaljit Stanley, RVT Physical Exam Const alert and oriented x3 HEENT head/scalp atraumatic and moist oral mucous membranes Head and Scalp: normocephalic Eyes PERRL, EOMs intact bilaterally and conjunctivae normal Neck no lymphadenopathy, supple and no JVD Resp normal respiratory effort, no retractions and no use of accessory muscles Resp Narrative: Currently satting at 97% on 2 L via nasal cannula. Auscultation: wheezes Cardio regular rate, regular rhythm, no murmurs and no JVD GI normal to inspection, nondistended, normoactive bowel sounds, soft to palpation and non-tender Extremity normal to inspection, full ROM and no clubbing, cyanosis or edema Skin no rashes or lesions noted, no wounds and skin turgor normal Neuro CN's II-XII intact bilaterally Psych affect normal Assessment & Plan Assessment/Plan (1) Hypertensive urgency: (2) Hypoxia: (3) Elevated brain natriuretic peptide (BNP) level: (4) Lower extremity edema: PLAN: Day 1 Discharge planning: Current plan is for patient to discharge home when medically ready. Family's goal for patient is for patient to return home, although patient does live alone he has a lot of family support and family is not seeking placement at this time. 1) acute hypoxia of unclear etiology Mixed presentation possibly due to acute HFpEF or COPD exacerbation. Cardiomegaly with vascular congestion was seen on chest x-ray and patient does have a history of smoking, although does not currently. Rapid flu, rapid RSV and rapid Covid are all negative. Blood cultures ordered/pending. Updated echocardiogram ordered/pending. Patient is currently requiring 2 L to sat at 96%, uses oxygen as needed at baseline. We will continue Lasix, continue steroids, breathing treatments and will continue to wean off oxygen as tolerated. 2) hypertensive urgency Resolved, currently 170/82. Patient is on Florinef for syncopal episodes. Will continue home BP regimen as well as Lasix, as needed hydralazine ordered. 3) bilateral lower extremity edema Dopplers are negative for DVT. TSH within normal limits. Work-up and plan as above. 4) Lewy body dementia/Parkinson's disease Patient does not have diagnosis of either, although outpatient work-up is in progress. Patient still with ongoing visual hallucinations in room, currently thinks is in room and perseverates on this issue. Upon conversation with daughter this is normal for patient during hospital admissions, and episodes usually increase throughout admission and resolve once patient returns home. We'll continue carbidopa and levodopa and patient should continue to follow-up with Dr. Jarvis as an outpatient 5) history of syncopal episodes On Florinef, follows with Dr. Jarvis from neurology. 6) chronic microcytic anemia Stable, at baseline. We'll continue to monitor. 7) hypokalemia Potassium currently 3.1, likely due to diuresis. Replaced, will continue to monitor. Continue chronic medications for HTN, CAD and GERD. DVT prophylaxis - Lovenox. Patient seen by Neil Serrano PA-C, under the supervision of Dr. Crowell. Documented by User: Dr. Andres Crowell MD 10/26/21 13:15 Subjective Subjective Patient is confused and disoriented. Is trying to get up from the bed. Mild shortness of breath with dyspnea and wheezing Objective Data Lab / Micro Data Result Diagrams: 10/26/21 05:21 10/26/21 05:21 Physical Exam Narrative General: Alert, Oriented x3, Cooperative, obesity grade 2, BMI 32.4 kg/m? HEENT: Atraumatic, PERRLA, EOMI, Normocephalic Oral: No Gingival or Mucosal Lesions/ Ulcerations Neck: Supple, No JVD, Negative Carotid Bruits Lungs: Air entry diminished in bilateral lung bases. Bilateral wheezing and rhonchi. Cardiovascular: Regular rate, Regular Rhythm, Normal S1, Normal S2, No murmurs Abdomen: Bowel Sounds Present, Soft, Non Tender, Non-Distended : No renal angle tenderness. No suprapubic tenderness. Extremities: Mild bilateral ankle edema, Capillary Refill Less than 3 Seconds Skin: No rashes, No breakdown Musculoskeletal: No Tenderness to Palpation of Joints or Extremities Neurological: Cranial nerves II-XII grossly intact, DTR 2+/4 and Symmetrical, Neuro grossly intact Psych/Mental Status: Normal Affect, Appropriate. Assessment & Plan Assessment/Plan (1) COPD exacerbation: PLAN: This patient was seen in conjunction with JOVANA Bates. I have independently interviewed and examined the patient and reviewed pertinent history, examination findings, laboratory and plan of management. I have reviewed the note and agree with the documented findings with the few additional points. In brief, patient is admitted for shortness of breath, wheezing, cough with a sputum for 3 days. Patient also confused and is disoriented. Clinical picture consistent with COPD exacerbation. Patient also with bilateral lower extremity edema. BP high, hypertension uncontrolled. Patient has chronic hypoxic respiratory failure due to COPD and is on 2 L of oxygen 23/04. Infectious work-up so far negative including rapid flu, rapid RSV and rapid Covid antigen. 2D echo pending. Venous Doppler negative for DVT. Patient on furosemide with potassium supplement. Hypokalemia, potassium replaced. Monitor labs. Patient has chronic history of intermittent confusion with history of Lewy body dementia/Parkinson's disease. Other comorbidities as mentioned above Total time of the visit includes total time spent in counseling or coordination of care, (more than 50% of the total time, spent in obtaining medical information from nurses and other ancillary care providers,explaining to the patient about labs, imaging, diagnosis and management), discussion with teamcenter consultant, review of labs and imaging is 30 minutes; I spent more than half time out of total time seen by PA and myself I have discussed my assessment with JOVANA Bates and orders have been reviewed. Charges/Coding Visit Charges Inpatient E&M: 96222 Subs Hosp L2
[2021-10-26 14:02] LABS: Pathologist Review Reviewed
--- NOTE | 2021-10-26 20:15 | NURSING ---
BP INACCURATE, PT CONFUSED, AGITTAED, WILL NOT HOLD ARM STILL & KEEPS TENSING UP
[2021-10-26] MEDS: QUEtiapine 25 MG Tablet 12.5 MG PO (23:39)
[2021-10-27] VITALS (13 sets, daily range): BP systolic 139–162; BP diastolic 68–116; PULSE 64–81; RESP 16–20; TEMP 36.5–37.5; O2SAT 91–99
[2021-10-27] MEDS: Ipratropium/Albuterol Sulfate 3 ML AMPUL.NEB INHALATION ×5 (02:09→20:45)
[2021-10-27] MEDS: Menthol/Lanolin/Calamine/Znox 113 GM Tube 1 APPLIC TOPICAL ×3 (02:27→20:32)
[2021-10-27] MEDS: 0.9% Saline Lock 10 ML Syringe IV (05:36)
[2021-10-27 06:08] LABS: Absolute Lymphocyte Count 0.61 X10^3/uL (0.83-4.51); Absolute Neutrophil Count 4.4 X10^3/uL (2.0-7.7); Basophil# 0.01 X10^3/uL; Basophil% 0.2 % (0-1); Hemoglobin 8.1 g/dL (13.0-16.5); Lymphocyte # 0.61 X10^3/ul (0.83-4.51); Lymphocyte % 11.4 % (19-41); Mean Corp Hgb Conc 31.2 g/dL (32-36); Mean Corpuscular Hgb 29.8 pg (27.0-32.0); Mean Corpuscular Volume 95.6 fL (80-94); Mean Platelet Vol. 10.1 fl (6.2-12.0); Monocyte# 0.28 X10^3/uL; Monocyte% 5.2 % (0-10); NRBC Flagged by Analyzer 0 % (0-5); Neutrophil # 4.41 X10^3/uL (2.7-7.7); Neutrophil % 82.6 % (47-70); Platelet Count 148 K/mm3 (150-450); RBC Distribution Width SD 56.2 fl (35.1-43.9); Red Blood Count 2.72 M/mm3 (4.6-6.2); White Blood Count 5.3 K/mm3 (4.4-11.0)
[2021-10-27 06:45] LABS: Anion Gap 6 (5-15); BUN 25 mg/dL (7-18); BUN/Creat Ratio 25.3 RATIO (10-20); Calcium,Total 8.3 mg/dL (8.5-10.1); Chloride 109 mmol/L (98-107); Creatinine, Serum 0.99 mg/dL (0.70-1.30); EST Glomerular Filtration Rate 78 mL/min (>60); Est Glom Filt Rate - Afr Amer 95 mL/min (>60); Estimated Creatinine Clearance 64.52 ml/min; Glucose 147 mg/dL (74-106); Potassium 3.4 mmol/L (3.5-5.1); Sodium Level 144 mmol/L (136-145)
[2021-10-27] MEDS: Fludrocortisone Acetate 0.1 MG Tablet 0.2 MG PO ×3 (07:40→16:38)
[2021-10-27] MEDS: Folic Acid 1 MG Tablet PO (07:40)
[2021-10-27] MEDS: Carbidopa/Levodopa 25/100 Tablet PO ×3 (07:40→16:38)
[2021-10-27] MEDS: Aspirin E.C. 81 MG Tablet PO (07:40)
[2021-10-27] MEDS: Enoxaparin 40 MG/0.4 ML Syringe SC (10:18)
--- NOTE | 2021-10-27 10:20 | CASEMGMT ---
Addendum entered by Sera White 10/27/21 12:53: TC to [facility], spoke with Sultana. Referral made for SN, PT and OT. Will await acceptance. Addendum entered by Sera White 10/27/21 12:49: CALIN TORREZ in to pt room. Pt sitting up in chair with O2 on in no distress. Pt finished feeding himself lunch per student nurse instructor. Pt conversive. Discussed dc planning. Pt agreeable to [facility] and states he wants [facility]. He is agreeable to for m/s assessment and monitor of BP and therapy for strength and balance. Pt states his dtr and granddtr check on him frequently. Pt denies further needs. Original Note: CALIN TORREZ in to pt room as per rounds pt to dc. Pt reclined back in chair with eyes closed and mumbling. Pt did not open eyes and RN CM unable to wake pt. exceptional student education teacher and instructor in room, states they were unable to arouse pt for breakfast. Spoke with pt nurse. Pt received seroquel lastnight. CALIN TORREZ to follow with therapy.
[2021-10-27] MEDS: Potassium Chloride Oral Tablet 20 MEQ 40 MEQ PO (10:39)
[2021-10-27] MEDS: Atorvastatin Calcium 10 MG Tablet PO (10:39)
[2021-10-27] MEDS: Pantoprazole Sodium 40 MG Tablet PO (10:39)
[2021-10-27] MEDS: Cyanocobalamin 500 MCG Tablet 1000 MCG PO (10:40)
[2021-10-27] MEDS: amLODIPine 5 MG Tablet PO (10:40)
[2021-10-27] MEDS: Clopidogrel Bisulfate 75 MG Tablet PO (10:40)
[2021-10-27] MEDS: Furosemide 40 MG/4 ML Vial IV (10:45)
--- NOTE | 2021-10-27 11:00 | NURSING ---
BP 162/116. IV Lasix administered per Mckayla Logan RN. CALIN Munoz notified.
--- NOTE | 2021-10-27 11:44 | CON.PCM.PA_ITS ---
Assessment & Plan Assessment/Plan (1) Debility: (2) Altered mental status: QUALIFIERS: Altered mental status type: delirium Qualified Code(s): R41.0 - Disorientation, unspecified (3) Acute respiratory failure with hypoxia: (4) Anemia: QUALIFIERS: Anemia type: unspecified type Qualified Code(s): D64.9 - Anemia, unspecified (5) Lower extremity edema: (6) Presence of stent in coronary artery: (7) Atherosclerotic heart disease of [place] coronary artery without angina pectoris: QUALIFIERS: [place] vs. transplanted heart: [place] heart Qualified Code(s): I25.10 - Atherosclerotic heart disease of [place] coronary artery without angina pectoris (8) Hallucinations: (9) Hypertension: QUALIFIERS: Hypertension type: unspecified Qualified Code(s): I10 - Essential (primary) hypertension PLAN: 76-year-old male with dementia, ongoing hallucinations, presented with respiratory symptoms and admitted for acute respiratory failure with hypoxia, hypertensive urgency, and lower extremity edema with elevated BNP. Seen today for palliative consultation for supportive care at home. 1. Debility and weakness: Typically independent. He is lethargic after low dose of Seroquel last night. Following with neurology as outpatient. Working with therapy, plan is to discharge home when stable. He has had multiple SNF stays. 2. AMS/hallucinations: Again, following with neurology and currently undergoing work-up. Recent start of Florinef, which could explain his persistent hypertension. However, previously had symptomatic severe hypotension causing syncope. He is a fall risk, fall precautions. There is a history of suspected parkinsonism. EEG in May 2021 which was negative for any seizures. Neurology consult at that time recommended Sinemet. Dementia? Seroquel improved his symptoms such as hallucinations, however he was quite lethargic this morning. He is now alert and oriented x3. Unclear if it was due to the Seroquel or just overly fatigued from being in the hospital. He would likely benefit from PRN Seroquel as an outpatient. 3. Respiratory failure with hypoxia/lower extremity edema/CAD status post stent/hypertension/anemia: Complicates overall care, management, recovery, and prognosis. His blood pressure remains elevated, would likely benefit from medication adjustments, defer management to attending. If agreeable to palliat jed, we will follow-up and collaborate with his primary care and specialists to optimize his care. Goals of care would be to improve quality of life, avoid hospitalization when possible, and provide supportive care to the patient and family. Thank you for the opportunity to participate in this patient's care, please do not hesitate to contact [facility] with any further questions or con cerns. Palliative direct line is [phone]. We will follow up after discharge and will discuss palliative services further at that time. Greater than 50% of F2F visit dedicated to education and counseling of palliative care services, medications, comorbid conditions and potential assistance with management, collaborating with medical staff, and plan of care moving forward. Start time: 1140 End time: 1241 HPI Consult Data Date of Consult: 10/27/21 HPI Narrative HPI Narrative: KERRY VALDES, is a 76 M who presented to [facility] 10/25/2021 with complaints of increased shortness of breath and noisy breathing. Also had bilateral lower extremity edema, cough, and clear sputum production. He was quite wheezy in the ED and was treated with nebulizers. Also hypoxic with no history of daytime requirements for supplementation, improved with 2 L of oxygen supplementation. He does wear oxygen at night at 2 L. Chest x-ray showed cardiomegaly and vascular congestion with early infiltrate and/or atelectasis at left lung base. Venous Doppler was negative for DVT. BNP was mildly elevated at 373. It was decided to admit him for further evaluation and management. Palliative was consulted for supportive management when discharged home. Patient has a history of Lewy body dementia but still lives on his own. His daughter has set up cameras so she can monitor him via video and reportedly checks them quite frequently. This family is known to this provider as his was previously on palliative before transitioning to hospice in 2020. Patient reportedly is undergoing outpatient work-up with neurology Dr. Jarvis for syncopal episodes, hallucinations, and memory loss. He was started on Florinef about a month ago and has been having an elevated blood pressure, unclear if due to medication or not. He has also had an extensive cardiac work-up in May 2021 and received a stent to the RCA. He follows with Dr. Nguyen for cardiology. Apparently patient has been experiencing visual hallucinations and is fixated on this, also having some behaviors. He was trialed on a 12.5 mg dose of Seroquel last night and remains obtunded as of noon today. He is being diuresed with Lasix and on steroids for breathing. Echocardiogram 10/25 showed normal LV systolic function, estimated EF of 70%, mildly enlarged left atrium, mild MVI, trivial TVI and KIRIT, RVSP estimated at 39 mmHg. Diastolic function unable to be determined, study was technically difficult. Covid, RSV and influenza panel negative. The patient has had persistent hypertension and has PRN hydralazine ordered, which I asked the nurse to give. Patient is a DNR CCA with no intubation. Patient reportedly independent with ADLs. His daughter and granddaughter live close by and check on him frequently, again has installed cameras in his apart ment so they can monitor him. Healthcare power of deadener is daughter Libia Cooney. Patient uses [facility] for pharmacy. Patient has apparently had several SNF stays in the past 4 months at the [facility], and [facility]. Family would like patient to return home upon discharge. DME in the home include FW W, toilet to tub transfer bench, tub bench, grab bars, raised toilet seat, hospital bed, pulse ox, glucometer, and pure wick collection system. They use [employer] for oxygen. Patient reports some mild shortness of breath today. He is now alert and up in the chair, talking with the student nurses. He has not heard as much wheezing. States he was really swollen but that has significantly improved as well. His lower extremities are wrinkly, appears diuresis has been effective. Denies any N/V/D. Denies constipation, states his bowels move daily. No abdominal pain. No current pain otherwise. Reports long history of back pain, has some herniated disks. Denies numbness and tingling. [facility] neurology told him he does not have Parkinson's but it was placed on his chart prior to the work-up. He denies a diagnosis of dementia. States he uses a walker when at home. No recent falls. [facility] Medical History (Updated 10/27/21 @ 12:02 by DEEJAY Hughes) Altered mental status Anemia Anxiety Atherosclerotic heart disease of [place] coronary artery without angina pectoris Atrial fibrillation Back pain Chest pain Coronary artery disease Degenerative disc disease, lumbar Delirium Diabetes Former smoker GERD (gastroesophageal reflux disease) Hallucinations HLD (hyperlipidemia) Hypertension Macrocytic anemia On home oxygen therapy Orthostatic hypotension Parkinson's disease Presence of stent in coronary artery (~05/12/21) Short-term memory loss Syncope Vertigo Home Medications aspirin [Aspirin Low Dose] 81 mg PO DAILY 05/26/21 [History Last Taken 10/25/21] atorvastatin 10 mg PO DAILY 05/26/21 [History Last Taken 10/24/21] clopidogrel 75 mg tablet 75 mg PO DAILY #90 tab 07/20/21 [Rx Last Taken 10/25/21] amlodipine 5 mg tablet 5 mg PO DAILY #90 tab 09/12/21 [Rx Last Taken 10/25/21] carbidopa-levodopa 0.5 tab PO TID 10/25/21 [History Last Taken 10/25/21] cyanocobalamin (vitamin B-12) 1,000 mcg PO DAILY@1200 10/25/21 [History Last Ta agnieszka 10/24/21] fludrocortisone 0.2 mg PO TID 10/25/21 [History Last Taken 10/25/21] folic acid 1 mg PO DAILY@1200 10/25/21 [History Last Taken 10/24/21] pantoprazole 40 mg PO DAILY PRN 10/25/21 [History Last Taken Unknown] potassium chloride 40 meq PO DAILY 10/25/21 [History Last Taken 10/25/21] Allergy/AdvReac Type Severity Reaction Status Date / Time No Known Allergies Allergy Verified 10/25/21 12:42 Family History no significant family his Surgical History Presence of coronary angioplasty implant and graft (~05/12/21) Social History Smoking Status: Former smoker alcohol intake: never substance use type: does not use ROS ROS Narrative Review of systems otherwise negative from a constitutional, HEENT, respiratory, cardiovascular, GI, genitourinary, musculoskeletal, skin, neurologic, psychiatric and hematologic system unless stated above. Physical Exam Const alert, oriented x3 and no apparent distress General Appearance: cooperative and comfortable Nutritional Appearance: obese HEENT normocephalic and head/scalp atraumatic Neck supple General: trachea midline Resp normal respiratory effort and no use of accessory muscles Effort and Inspection: symmetric chest movement Auscultation: diminished lung sounds diffuse; Negative for rales, rhonchi or wheezes Cardio regular rate, regular rhythm, S1 normal heart sound and S2 normal heart sound GI normal to inspection, nondistended, normoactive bowel sounds Extremity General Extremity: edema bilateral (Mild upper extremity/hand edema, 1+ bilateral lower extremity edema with evidence of diuresis); Negative for clubbing or cyanosis Skin Skin Narrative: Some scratches on his left aguilar, otherwise no observed rashes or lesions. Skin is pale Neuro CN's II-XII intact bilaterally, moves all extremities and no sensory deficits noted Neuro Narrative: Mild/faint tremor to the left upper extremity at rest Psych cooperative, affect normal, speech normal and denies hallucinations Attitude: calm and engaged Activity / Motor Behavior: appropriate eye contact Speech: normal speech Mood & Affect: euthymic mood Thought Process: normal thought process Thought Content: normal thought content Attention / Concentration: attention grossly intact
--- NOTE | 2021-10-27 13:04 | PN.HOSP_ITS ---
Documented by User: Nancy Wiggins MANAGEMENT ASSISTANT, MANAGEMENT ASSISTANT-C 10/27/21 13:23 Subjective Subjective Patient seen and examined. Drowsy this morning. Daughter would like patient to return home at discharge. Notified by nursing later in the day that patient is more alert. Daughter requesting patient be kept overnight for monitoring prior to returning home. Objective Data Objective Data Vital Signs: Vital Signs Temp Pulse Resp BP Pulse Ox 98.5 F 68 18 153/76 H 96 10/27/21 12:04 10/27/21 12:04 10/27/21 12:04 10/27/21 12:04 10/27/21 12:04 Oxygen Flow Rate (L/min) 2 Oxygen Delivery Method Nasal Cannula Weight: 219 lb 5 oz Body Mass Index (BMI) 32.5 Intake & Output: Intake and Output for Last 24 Hours 10/25/21 10/26/21 10/27/21 23:59 23:59 23:59 Intake Total 0 / 0 Output Total 1300 / 1300 200 / 200 Balance -1300 / -1300 -200 / -200 0 / 0 Lab / Micro Data Result Diagrams: 10/27/21 05:40 10/27/21 05:40 Labs: Laboratory Results - last 24 hr 10/26/21 05:21: Diff Path Review Reviewed 10/27/21 05:40: WBC 5.3, RBC 2.72 L, Hgb 8.1 L, Hct 26.0 L, MCV 95.6 H, MCH 29.8, MCHC 31.2 L, RDW Std Deviation 56.2 H, RDW Coeff of Sophie 16.0 H, Plt Count 148 L, MPV 10.1, Immature Gran % (Auto) 0.600, Neut % (Auto) 82.6 H, Lymph % (Auto) 11.4 L, [place] % (Auto) 5.2, Eos % (Auto) 0.0, Baso % (Auto) 0.2, Absolute Neuts (auto) 4.4, Absolute Lymphs (auto) 0.61 L, Nucleated RBC % 0 10/27/21 05:40: Sodium 144, Potassium 3.4 L, Chloride 109 H, Carbon Dioxide 29.0, Anion Gap 6, BUN 25 H, Creatinine 0.99, Estim Creat Clear Calc 64.52, Est GFR (MDRD) Af Amer 95, Est GFR (MDRD) Non-Af 78, BUN/Creatinine Ratio 25.3 H, Glucose 147 H, Calcium 8.3 L Micro: Microbiology 10/25/21 13:35 Blood Culture (Wb) #2 - Anticubital Right Blood Culture - Preliminary No growth in 48 hours. 10/25/21 13:35 Blood Culture (Wb) - Anticubital Left Blood Culture - Preliminary No growth in 48 hours. 10/25/21 15:45 Mucosa - Nose Influenza Types A,B Direct FA (HESHAM) - Final 10/25/21 15:45 Mucosa - Nasopharyngeal Rapid RSV (DFA) - Final 10/25/21 13:35 Nasal Secretion SARS-CoV-2 Antigen (Rapid) - Final Physical Exam Const no apparent distress Constitutional Narrative: Demented Orientation / Consciousness: confused HEENT normocephalic and moist oral mucous membranes Eyes PERRL, EOMs intact bilaterally and conjunctivae normal Neck no lymphadenopathy Resp normal respiratory effort and clear to auscultation bilaterally Cardio regular rate, regular rhythm and no murmurs Peripheral Pulses: pulses 2+ throughout GI normal to inspection, nondistended, normoactive bowel sounds, non-tender and non-distended Extremity normal to inspection Skin no rashes or lesions noted Lesions: no lesions Rashes: no rashes Trauma: no lacerations or abrasions Neuro CN's II-XII intact bilaterally, no focal motor deficits, no sensory deficits noted and deep tendon reflexes 2+ bilaterally Psych mental status grossly normal and affect normal Assessment & Plan Assessment/Plan (1) Altered mental status: QUALIFIERS: Altered mental status type: delirium Qualified Cod e(s): R41.0 - Disorientation, unspecified (2) Hypoxia: PLAN: 1. Acute on chronic hypoxic respiratory failure secondary to heart failure with preserved ejection fraction and exacerbation of COPD-patient has supplemental oxygen 2 L nasal cannula as needed at baseline however unknown compliance given underlying dementia. 2. Acute heart failure with preserved ejection fraction-BNP 373. Chest x-ray on admission with vascular congestion. IV Lasix during admission with transition to oral Lasix 40 mg daily. Echocardiogram demonstrates an EF of 70%, RVSP estimated to be 39 mmHg. 3. COPD exacerbation-Covid, RSV and influenza negative. Transition from IV Solu-Medrol to prednisone taper. Albuterol DuoNeb aerosols. 4. Hypertensive urgency-improved. Continue amlodipine, Lasix. 5. Bilateral lower extremity edema-Dopplers negative for DVT. Jose De Jesus wraps bilateral lower extremities. 6. Lewy body dementia/Parkinson's disease-on carbidopa levodopa, following with neurology. Daughter declined placement, patient to return home at discharge. 7. History of syncope-following with neurology, Dr. Jarvis as outpatient. Recently started on Florinef. 8. Chronic microcytic anemia-stable. 9. CAD-previous stent placement. Continue aspirin, statin, Plavix. 10. GERD-on PPI. DVT prophylaxis-Lovenox subcu This patient was seen by Nancy Wiggins NP-Gail under the supervision of Dr. Crowell. Documented by User: Dr. Andres Crowell MD 10/27/21 14:13 Subjective Subjective Follow-up for COPD exacerbation The patient is found confused and disoriented in the morning. Patient wakes up and I spoke loudly. Patient has intermittent confusion and disorientation and visual hallucination due to dementia of Lewy body. Denies shortness of breath chest pain. His wants to stay overnight as she thinks he is more confused Objective Data Lab / Micro Data Result Diagrams: 10/27/21 05:40 10/27/21 05:40 Physical Exam Narrative General: Confused, disoriented obesity grade 2, BMI 32.4 kg/m? HEENT: Atraumatic, PERRLA, EOMI, Normocephalic Oral: No Gingival or Mucosal Lesions/ Ulcerations Neck: Supple, No JVD, Negative Carotid Bruits Lungs: Air entry diminished in bilateral lung bases. Mild expiratory rhonchi but no wheezing Cardiovascular: Regular rate, Regular Rhythm, Normal S1, Normal S2, No murmurs Abdomen: Bowel Sounds Present, Soft, Non Tender, Non-Distended : No renal angle tenderness. No suprapubic tenderness. Extremities: Mild bilateral ankle edema, Capillary Refill Less than 3 Seconds Skin: No rashes, No breakdown Musculoskeletal: Muscle rigidity at hip, knees and ankle joints. no Tenderness to Palpation of Joints or Extremities Neurological: Cranial nerves II-XII grossly intact, DTR 2+/4 and Symmetrical, Neuro grossly intact Psych/Mental Status: Flat affect. Assessment & Plan Assessment/Plan (1) Altered mental status: QUALIFIERS: Altered mental status type: delirium Qualified Code(s): R41.0 - Disorientation, unspecified (2) COPD exacerbation: PLAN: This patient was seen in conjunction with MANAGEMENT ASSISTANTNancy. I have independently interviewed and examined the patient and reviewed pertinent history, examination findings, laboratory and plan of management. I have reviewed the note and agree with the documented findings with the few additional points. In brief, patient is admitted for shortness of breath, wheezing, cough with a sputum for 3 days. Patient also confused and is disoriented. Clinical picture consistent with COPD exacerbation. Patient also with bilateral lower extremity edema. BP high, hypertension uncontrolled. Patient has chronic hypoxic respiratory failure due to COPD and is on 2 L of oxygen /. Infectious work- up so far negative including rapid flu, rapid RSV and rapid Covid antigen. Coronary artery status post stent: 2D echo EF 70%, RVSP 39 mmHg LA mildly enlarged history of acute HFpEF/diastolic heart failure. Venous Doppler negative for DVT. Patient on furosemide with potassium supplement. Hypokalemia, potassium rep laced. Monitor labs. Magnesium 2.7 Patient has chronic history of intermittent confusion with history of Lewy body dementia/Parkinson's disease. Orientation cues. Patient had Seroquel 12.5 mg last night Other comorbidities as mentioned above Total time of the visit includes total time spent in counseling or coordination of care, (more than 50% of the total time, spent in obtaining medical i nformation from nurses and other ancillary care providers,explaining to the patient about labs, imaging, diagnosis and management), discussion with cancer program consultant, review of labs and imaging is 30 minutes; I spent more than half time out of total time seen by MANAGEMENT ASSISTANT and myself I have discussed my assessment with Nancy ROBLES and orders have been reviewed. Charges/Coding Visit Charges Inpatient E&M: 63025 Subs Hosp L2
--- NOTE | 2021-10-27 16:17 | NURSING ---
1610- Sinemet and florinef administered per orders. Unable to sign off medications in NOV due to [employer] issue. CALIN Munoz made aware that medications were given.
[2021-10-28] VITALS (13 sets, daily range): BP systolic 136–176; BP diastolic 52–68; PULSE 60–85; RESP 17–20; TEMP 36.6–36.9; O2SAT 85–99
[2021-10-28] MEDS: Carbidopa/Levodopa 25/100 Tablet PO ×3 (05:53→15:56)
[2021-10-28] MEDS: hydrALAZINE 20 MG/ML Vial 10 MG IV (05:53)
[2021-10-28 06:32] LABS: Anion Gap 5 (5-15); BUN 29 mg/dL (7-18); BUN/Creat Ratio 26.4 RATIO (10-20); Chloride 108 mmol/L (98-107); EST Glomerular Filtration Rate 69 mL/min (>60); Est Glom Filt Rate - Afr Amer 83 mL/min (>60); Estimated Creatinine Clearance 58.07 ml/min; Glucose 111 mg/dL (74-106); Potassium 3.1 mmol/L (3.5-5.1); Sodium Level 143 mmol/L (136-145)
[2021-10-28] MEDS: Ipratropium/Albuterol Sulfate 3 ML AMPUL.NEB INHALATION ×3 (06:48→15:31)
[2021-10-28] MEDS: guaiFENesin 10 ML UDC (200MG/10ML) 20 ML PO (07:18)
[2021-10-28] MEDS: Enoxaparin 40 MG/0.4 ML Syringe SC (08:36)
[2021-10-28] MEDS: Potassium Chloride Oral Tablet 20 MEQ 40 MEQ PO (08:36)
[2021-10-28] MEDS: Furosemide 40 MG Tablet PO (08:37)
[2021-10-28] MEDS: Pantoprazole Sodium 40 MG Tablet PO (08:37)
[2021-10-28] MEDS: Aspirin E.C. 81 MG Tablet PO (08:37)
[2021-10-28] MEDS: Atorvastatin Calcium 10 MG Tablet PO (08:37)
[2021-10-28] MEDS: predniSONE 20 MG Tablet 40 MG PO (08:37)
[2021-10-28] MEDS: Folic Acid 1 MG Tablet PO (08:37)
[2021-10-28] MEDS: Cyanocobalamin 500 MCG Tablet 1000 MCG PO (08:37)
[2021-10-28] MEDS: Fludrocortisone Acetate 0.1 MG Tablet 0.2 MG PO ×3 (08:37→15:58)
[2021-10-28] MEDS: amLODIPine 5 MG Tablet PO (08:37)
[2021-10-28] MEDS: Clopidogrel Bisulfate 75 MG Tablet PO (08:37)
[2021-10-28] MEDS: Menthol/Lanolin/Calamine/Znox 113 GM Tube 1 APPLIC TOPICAL (08:38)
--- NOTE | 2021-10-28 10:07 | CASEMGMT ---
Addendum entered by Sera White 10/28/21 12:26: Charge nurse questioned pt home oxygen. TC to [facility] to confirm as unclear if confirmed at initial assessment. Per Leighann, pt order is for 3L continuous. RN CM back into pt room to make aware of this and that this RN CM will not update rx from hospital stay. Original Note: [facility] able to accept pt for SOC on Sunday. RN CM in to pt room. Pt aware his O2 needs increased with activity this hospital stay. Pt has portable tank to go home on in room. Pt aware HHC will start on Sunday. He denies further questions at this time.
--- NOTE | 2021-10-28 11:37 | PCM.DC ---
Discharge Instructions Diet Discharge Diet: Low fat / Low cholesterol and 8 Cup Fluid Restriction Activity Discharge Activity: Return to Normal Activity Dressing / Incision Call your doctor if you observe: Shortness of breath, Dizziness and Chest pain Follow Up Care Test Results: Test results from this visit will be discussed in further detail at your follow-up appointment, if applicable. Discharge Plan Admission Admit Date/Time: 10/25/21 15:39 Primary Reason for Your Visit: hypoxia, altered mental status Attending Provider: Andres Crowell Primary Care Provider: Jasson England Discharge Orders/Prescriptions Prescriptions: New prednisone 20 mg Tablet 40 mg PO BREAKFAST 4 Days Qty: 8 RF: 0 Continued aspirin [Aspirin Low Dose] 81 mg Tablet,Delayed Release (Dr/Ec) 81 mg PO DAILY RF: 0 atorvastatin 10 mg tablet 10 mg PO DAILY RF: 0 folic acid 1 mg Tablet 1 mg PO DAILY@1200 RF: 0 carbidopa-levodopa 25-100 mg Tablet 0.5 tab PO TID RF: 0 cyanocobalamin (vitamin B-12) 1,000 mcg Capsule 1,000 mcg PO DAILY@1200 RF: 0 fludrocortisone 0.1 mg tablet 0.2 mg PO TID RF: 0 potassium chloride 20 mEq tablet,ER particles/crystals 40 meq PO DAILY RF: 0 pantoprazole 40 mg tablet,delayed release (DR/EC) 40 mg PO DAILY PRN (Reason: GERD) RF: 0 clopidogrel [Plavix] 75 mg tablet 75 mg PO DAILY Qty: 90 RF: 3 amlodipine 5 mg tablet 5 mg PO DAILY Qty: 90 RF: 3 Referrals / Follow Up: Jasson England MD [Primary Care Provider] - In 1 Week Disposition Disposition (needs filled in before D/C Order can be placed): Home Health Service
--- NOTE | 2021-10-28 11:47 | PCM.DC.SUM ---
Documented by User: Nancy Wiggins NP, STACKING MACHINE OPERATOR-C 10/28/21 11:56 Providers Date of Admission: 10/25/21 Date of Discharge: 10/28/21 Primary Care Physician: Dr. Jasson England MD Reason For Visit: ACUTE EXACERBATION OF COPD Diagnosis Discharge Diagnosis (1) Altered mental status: Status: Acute Code(s): R41.82 - Altered mental status, unspecified Qualifiers: Altered mental status type: delirium Qualified Code(s): R41.0 - Disorientation, unspecified (2) COPD exacerbation: Status: Chronic Code(s): J44.1 - Chronic obstructive pulmonary disease with (acute) exacerbation Medications at Discharge Home Medications aspirin [Aspirin Low Dose] 81 mg PO DAILY 05/26/21 atorvastatin 10 mg PO DAILY 05/26/21 clopidogrel 75 mg tablet 75 mg PO DAILY #90 tab 07/20/21 amlodipine 5 mg tablet 5 mg PO DAILY #90 tab 09/12/21 carbidopa-levodopa 0.5 tab PO TID 10/25/21 cyanocobalamin (vitamin B-12) 1,000 mcg PO DAILY@1200 10/25/21 fludrocortisone 0.2 mg PO TID 10/25/21 folic acid 1 mg PO DAILY@1200 10/25/21 pantoprazole 40 mg PO DAILY PRN 10/25/21 potassium chloride 40 meq PO DAILY 10/25/21 albuterol sulfate [ProAir HFA] 1 inh INHALATION Q6H PRN #6.7 g 10/28/21 prednisone 40 mg PO BREAKFAST 4 Days #8 tab 10/28/21 Hospital Course Operations None Procedures 2-D Echocardiogram Summary of Care Provided Hospital Course: Patient is a 76-year-old male admitted 10/25/2021 due to shortness of breath. 1. Acute on chronic hypoxic respiratory failure secondary to heart failure with preserved ejection fraction and exacerbation of COPD-patient has supplemental oxygen 2 L nasal cannula as needed at baseline however unknown compliance given underlying dementia. Repeat home oxygen testing prior to discharge. 2. Acute heart failure with preserved ejection fraction-suspect due to hypertensive urgency on admission. BNP 373. Chest x-ray on admission with vascular congestion. IV Lasix during admission. Echocardiogram demonstrates an EF of 70%, RVSP estimated to be 39 mmHg. Discontinue further Lasix at discharge given increasing creatinine. Continue Jose De Jesus wraps lower extremities. 3. COPD exacerbation-Covid, RSV and influenza negative. Transition from IV Solu-Medrol to prednisone 40 mg daily for 5 days at discharge. As needed albuterol inhaler. 4. Hypertensive urgency-improved. Continue amlodipine. Blood pressure currently stable however may need further adjustment pending further outpatient monitoring given recent addition of Florinef. 5. Bilateral lower extremity edema-Dopplers negative for DVT. Jose De Jesus wraps bilateral lower extremities. 6. Lewy body dementia/Parkinson's disease-on carbidopa levodopa, following with neurology. Daughter declined placement, patient to return home at discharge. 7. History of syncope-following with neurology, Dr. Jarvis as outpatient. Recently started on Florinef. 8. Chronic microcytic anemia-stable. 9. CAD-previous stent placement. Continue aspirin, statin, Plavix. 10. GERD-on PPI. Physical Exam Const no apparent distress Constitutional Narrative: Demented Orientation / Consciousness: confused HEENT normocephalic and moist oral mucous membranes Eyes PERRL, EOMs intact bilaterally and conjunctivae normal Neck no lymphadenopathy Resp normal respiratory effort and clear to auscultation bilaterally Cardio regular rate, regular rhythm and no murmurs Peripheral Pulses: pulses 2+ throughout GI normal to inspection, nondistended, normoactive bowel sounds, non-tender and non-distended Extremity normal to inspection Skin no rashes or lesions noted Lesions: no lesions Rashes: no rashes Trauma: no lacerations or abrasions Neuro CN's II-XII intact bilaterally, no focal motor deficits, no sensory deficits noted and deep tendon reflexes 2+ bilaterally Psych mental status grossly normal and affect normal Patient seen and examined prior to discharge. Physical assessment as noted above. Patient is stable for discharge with follow up recommendations as noted above. This patient was seen by DEEJAY Burton under the supervision of Dr. Crowell. Weight / BMI Weight Weight: 221 lb 5.506 oz Body Mass Index (BMI) 32.5 ABG / Lab / Microbiology Data Result Diagrams: 10/27/21 05:40 10/28/21 05:30 Laboratory: Laboratory Results - last 24 hr 10/28/21 05:30: Sodium 143, Potassium 3.1 L, Chloride 108 H, Carbon Dioxide 30.0, Anion Gap 5, BUN 29 H, Creatinine 1.10, Estim Creat Clear Calc 58.07, Est GFR (MDRD) Af Amer 83, Est GFR (MDRD) Non-Af 69, BUN/Creatinine Ratio 26.4 H, Glucose 111 H, Calcium 8.0 L Microbiology: Microbiology 10/25/21 13:35 Blood Culture (Wb) #2 - Anticubital Right Blood Culture - Preliminary No growth in 48 hours. 10/25/21 13:35 Blood Culture (Wb) - Anticubital Left Blood Culture - Preliminary No growth in 48 hours. 10/25/21 15:45 Mucosa - Nose Influenza Types A,B Direct FA (HESHAM) - Final 10/25/21 15:45 Mucosa - Nasopharyngeal Rapid RSV (DFA) - Final 10/25/21 13:35 Nasal Secretion SARS-CoV-2 Antigen (Rapid) - Final D/C Instructions Discharge Diet: Low fat / Low cholesterol and 8 Cup Fluid Restriction Call your doctor if you observe: Shortness of breath, Dizziness and Chest pain Meaningful Use Info Meaningful Use Diagnoses (Choose all that apply): CHF CHF JOSE DE JESUS/ARB ordered at discharge?: No Reason JOSE DE JESUS/ARB not ordered?: Normal EF Documented LVEF (%): 70 Discharge Plan Admission Admit Date/Time: 10/25/21 15:39 Primary Reason for Your Visit: hypoxia, altered mental status Attending Provider: Andres Crowell Primary Care Provider: Jasson England Discharge Orders/Prescriptions Prescriptions: New prednisone 20 mg Tablet 40 mg PO BREAKFAST 4 Days Qty: 8 RF: 0 albuterol sulfate [ProAir HFA] 90 mcg/actuation HFA aerosol inhaler 1 inh inhalation Q6H PRN (Reason: shortness of breath or wheezing) Qty: 6.7 RF: 0 Continued aspirin [Aspirin Low Dose] 81 mg Tablet,Delayed Release (Dr/Ec) 81 mg PO DAILY RF: 0 atorvastatin 10 mg tablet 10 mg PO DAILY RF: 0 folic acid 1 mg Tablet 1 mg PO DAILY@1200 RF: 0 carbidopa-levodopa 25-100 mg Tablet 0.5 tab PO TID RF: 0 cyanocobalamin (vitamin B-12) 1,000 mcg Capsule 1,000 mcg PO DAILY@1200 RF: 0 fludrocortisone 0.1 mg tablet 0.2 mg PO TID RF: 0 potassium chloride 20 mEq tablet,ER particles/crystals 40 meq PO DAILY RF: 0 pantoprazole 40 mg tablet,delayed release (DR/EC) 40 mg PO DAILY PRN (Reason: GERD) RF: 0 clopidogrel [Plavix] 75 mg tablet 75 mg PO DAILY Qty: 90 RF: 3 amlodipine 5 mg tablet 5 mg PO DAILY Qty: 90 RF: 3 Referrals / Follow Up: Jasson England MD [Primary Care Provider] - In 1 Week Disposition Disposition (needs filled in before D/C Order can be placed): Home Health Service Documented by User: Dr. Andres Crowell MD 10/28/21 13:58 Providers Date of Admission: 10/25/21 Reason For Visit: ACUTE EXACERBATION OF COPD Medications at Discharge Home Medications aspirin [Aspirin Low Dose] 81 mg PO DAILY 05/26/21 atorvastatin 10 mg PO DAILY 05/26/21 clopidogrel 75 mg tablet 75 mg PO DAILY #90 tab 07/20/21 amlodipine 5 mg tablet 5 mg PO DAILY #90 tab 09/12/21 carbidopa-levodopa 0.5 tab PO TID 10/25/21 cyanocobalamin (vitamin B-12) 1,000 mcg PO DAILY@1200 10/25/21 fludrocortisone 0.2 mg PO TID 10/25/21 folic acid 1 mg PO DAILY@1200 10/25/21 pantoprazole 40 mg PO DAILY PRN 10/25/21 potassium chloride 40 meq PO DAILY 10/25/21 albuterol sulfate [ProAir HFA] 1 inh INHALATION Q6H PRN #6.7 g 10/28/21 prednisone 40 mg PO BREAKFAST 4 Days #8 tab 10/28/21 Hospital Course Summary of Care Provided Hospital Course: This patient was seen in conjunction with STACKING MACHINE OPERATOR, Nancy. I have independently interviewed and examined the patient and reviewed pertinent history, examination findings, laboratory and plan of management. I have reviewed the note and agree with the documented findings with the few additional points. In brief, patient is admitted for shortness of breath, wheezing, cough with a sputum for 3 days. Clinical picture consistent with COPD exacerbation. Patient also with bilateral lower extremity edema. BP high, hypertension uncontrolled. Patient has chronic hypoxic respiratory failure due to COPD and is on 2 L of oxygen 23/04. Infectious work-up so far negative including rapid flu, rapid RSV and rapid Covid antigen. Coronary artery status post stent: 2D echo EF 70%, RVSP 39 mmHg LA mildly enlarged history of acute HFpEF/diastolic heart failure. Venous Doppler negative for DVT. Patient on furosemide with potassium supplement. Hypokalemia, potassium replaced. Monitor labs. Magnesium 2.7 Patient has chronic history of intermittent confusion with history of Lewy body dementia/Parkinson's disease. Orientation cues. Patient had Seroquel 12.5 mg last night. Acute encephalopathy probably medication Seroquel has resolved. Other comorbidities as mentioned above Discharge medication reconciliation done. Discharge follow-up instructions completed. Discharge process discussed with the patient and all questions were answered to patient's satisfaction. Total time spent, exact 35 minutes on discharge meds reconciliation, examination, coordination of care with nurses and ancillary staff, review of imaging and blood test and discussion with the patient on follow-up instructions Total time of the visit includes total time spent in counseling or coordination of care, (more than 50% of the total time, spent in obtaining medical information from nurses and other ancillary care providers,explaining to the patient about labs, imaging, diagnosis and management), discussion with executive talent acquisition consultant, review of labs and imaging is 35 minutes; I spent more than half time out of total time seen by STACKING MACHINE OPERATOR and myself I have discussed my assessment with Nancy ROBLES and orders have been reviewed. Physical Exam Narrative The patient is awake, alert and talking relevant. He is sitting on the recliner. General: AAOx3, obesity grade 2, BMI 32.4 kg/m? HEENT: Atraumatic, PERRLA, EOMI, Normocephalic Oral: No Gingival or Mucosal Lesions/ Ulcerations Neck: Supple, No JVD, Negative Carotid Bruits Lungs: Air entry diminished in bilateral lung bases. Mild expiratory rhonchi but no wheezing Cardiovascular: Regular rate, Regular Rhythm, Normal S1, Normal S2, No murmurs Abdomen: Bowel Sounds Present, Soft, Non Tender, Non-Distended : No renal angle tenderness. No suprapubic tenderness. Extremities: Mild bilateral ankle edema, improved. Capillary Refill Less than 3 Seconds Skin: No rashes, No breakdown Musculoskeletal: Muscle rigidity at hip, knees and ankle joints. no Tenderness to Palpation of Joints or Extremities Neurological: Cranial nerves II-XII grossly intact, DTR 2+/4 and Symmetrical, Neuro grossly intact Psych/Mental Status: Flat affect. ABG / Lab / Microbiology Data Result Diagrams: 10/27/21 05:40 10/28/21 05:30 Discharge Plan Admission Admit Date/Time: 10/25/21 15:39 Primary Reason for Your Visit: hypoxia, altered mental status Attending Provider: Andres Crowell Primary Care Provider: Jasson England Discharge Orders/Prescriptions Prescriptions: New prednisone 20 mg Tablet 40 mg PO BREAKFAST 4 Days Qty: 8 RF: 0 albuterol sulfate [ProAir HFA] 90 mcg/actuation HFA aerosol inhaler 1 inh inhalation Q6H PRN (Reason: shortness of breath or wheezing) Qty: 6.7 RF: 0 Continued aspirin [Aspirin Low Dose] 81 mg Tablet,Delayed Release (Dr/Ec) 81 mg PO DAILY RF: 0 atorvastatin 10 mg tablet 10 mg PO DAILY RF: 0 folic acid 1 mg Tablet 1 mg PO DAILY@1200 RF: 0 carbidopa-levodopa 25-100 mg Tablet 0.5 tab PO TID RF: 0 cyanocobalamin (vitamin B-12) 1,000 mcg Capsule 1,000 mcg PO DAILY@1200 RF: 0 fludrocortisone 0.1 mg tablet 0.2 mg PO TID RF: 0 potassium chloride 20 mEq tablet,ER particles/crystals 40 meq PO DAILY RF: 0 pantoprazole 40 mg tablet,delayed release (DR/EC) 40 mg PO DAILY PRN (Reason: GERD) RF: 0 clopidogrel [Plavix] 75 mg tablet 75 mg PO DAILY Qty: 90 RF: 3 amlodipine 5 mg tablet 5 mg PO DAILY Qty: 90 RF: 3 Referrals / Follow Up: Jasson England MD [Primary Care Provider] - In 1 Week Disposition Disposition (needs filled in before D/C Order can be placed): Home Health Service Charges/Coding Visit Charges Inpatient E&M: 01591 Disch Hosp
[2021-10-28] MEDS: Potassium Chloride Oral Tablet 20 MEQ PO (12:06)
== END 2021-10-28 16:34 | disposition home health service (06) | DRG 190 ==
LOC: ED 15:48 → MS3 16:34
PROVIDERS: Nurse Practitioner Family; Physician Assistant; Admitting Provider Internal Medicine; Emergency Provider Emergency Medicine; PCP Family Medicine; Visit Provider Internal Medicine
DX: J44.1 Chronic obstructive pulmonary disease with (acute) exacerbation (principal); I50.31 Acute diastolic (congestive) heart failure; J96.21 Acute and chronic respiratory failure with hypoxia; G93.40 Encephalopathy, unspecified; E11.9 Type 2 diabetes mellitus without complications; D53.9 Nutritional anemia, unspecified; D50.9 Iron deficiency anemia, unspecified; E78.5 Hyperlipidemia, unspecified; I11.0 Hypertensive heart disease with heart failure; G31.83 Neurocognitive disorder with Lewy bodies; I16.0 Hypertensive urgency; I25.10 Atherosclerotic heart disease of native coronary artery without angina pectoris; I10 Essential (primary) hypertension; K21.9 Gastro-esophageal reflux disease without esophagitis; E87.6 Hypokalemia; R44.1 Visual hallucinations; Z79.02 Long term (current) use of antithrombotics/antiplatelets; Z79.82 Long term (current) use of aspirin; Z87.891 Personal history of nicotine dependence; R53.81 Other malaise; Z66 Do not resuscitate; Z95.5 Presence of coronary angioplasty implant and graft
CPT/HCPCS: 36415; 71045; 80048; 80053; 83605; 83735; 83880; 84100; 84443; 84484; 85025; 87040; 87426; 87804; 87807; 93005; 93306; 93970; 94640; 94667; 94668; 97116; 97162; 97166; 97530; 97535; 97802; 99251; 99285; A4216; G0463; J1940

== ENCOUNTER 2021-11-08 12:13 | Outpatient (CLI) | payer MEDICARE, SELFPAY ==
[2021-11-08 13:33] LABS: Absolute Lymphocyte Count 1.11 X10^3/uL (0.83-4.51); Absolute Neutrophil Count 4.3 X10^3/uL (2.0-7.7); Basophil# 0.02 X10^3/uL; Basophil% 0.3 % (0-1); Eosinophil# 0.45 X10^3/uL; Eosinophils% 6.9 % (0-5); Hematocrit 27.5 % (40-54); Lymphocyte # 1.11 X10^3/ul (0.83-4.51); Lymphocyte % 16.9 % (19-41); Mean Corp Hgb Conc 32.7 g/dL (32-36); Mean Corpuscular Hgb 30.9 pg (27.0-32.0); Mean Corpuscular Volume 94.5 fL (80-94); Mean Platelet Vol. 9.5 fl (6.2-12.0); Monocyte# 0.63 X10^3/uL; Monocyte% 9.6 % (0-10); NRBC Flagged by Analyzer 0 % (0-5); Neutrophil # 4.32 X10^3/uL (2.7-7.7); Platelet Count 186 K/mm3 (150-450); RBC Distribution Width CV 15.7 % (11.6-14.6); RBC Distribution Width SD 54.2 fl (35.1-43.9); Red Blood Count 2.91 M/mm3 (4.6-6.2); White Blood Count 6.6 K/mm3 (4.4-11.0)
[2021-11-08 13:56] LABS: Anion Gap 6 (5-15); BUN 18 mg/dL (7-18); Calcium,Total 8.3 mg/dL (8.5-10.1); Chloride 108 mmol/L (98-107); EST Glomerular Filtration Rate 87 mL/min (>60); Est Glom Filt Rate - Afr Amer 105 mL/min (>60); Glucose 84 mg/dL (74-106); Potassium 2.9 mmol/L (3.5-5.1); Sodium Level 143 mmol/L (136-145)
== END 2021-11-08 23:59 | disposition home or self-care (01) ==
LOC: LAB 12:17
PROVIDERS: PCP Family Medicine; Referring Provider Nurse Practitioner Gerontology; Visit Provider Nurse Practitioner Gerontology
DX: R06.00 Dyspnea, unspecified (principal); R60.0 Localized edema; I10 Essential (primary) hypertension; D64.9 Anemia, unspecified
CPT/HCPCS: 36415; 80048; 83880; 85025

== ENCOUNTER 2022-01-02 09:33 | Inpatient (IN) | payer MEDICARE, SELFPAY ==
[2022-01-02] VITALS (11 sets, daily range): BP systolic 108–153; BP diastolic 55–81; PULSE 68–80; RESP 16–20; TEMP 36.7–37.4; O2SAT 95–99; BMI 29.5; BMI 29.9
--- NOTE | 2022-01-02 10:03 | CT_ITS ---
STUDY: CT BRAIN WITHOUT CONTRAST REASON FOR EXAM: Male, 76 years old. Head trauma, loss of conscious, altered mental sta RADIATION DOSAGE (If Supplied By Facility): CTDIvol = ( 44.99 ) mGy, DLP = ( 829.85 ) mGycm TECHNIQUE: Transaxial CT imaging of the brain was performed without administration of intravenous contrast material. Individualized dose optimization techniques were used for this CT. COMPARISON: Comparison is made with prior study dated 05/26/2021. FINDINGS: Normal soft tissue structures. Normal calvarium. There is moderate cerebral atrophy with widening of the extra-axial spaces and ventricular dilatation. There are areas of decreased attenuation within the white matter tracts of the supratentorial brain, consistent with microvascular disease changes. Normal basal ganglia and thalami. Normal brainstem. Normal cerebellum. There is no intracranial hemorrhage. There are no findings of an acute ischemic infarction. Atherosclerotic calcification of the cavernous portions of the internal carotid arteries and vertebral arteries bilaterally. A fluid level is seen in the left maxillary sinus as well as the sphenoid sinus. Mucosal thickening of the ethmoid sinuses. Small air-fluid level in the frontal sinuses. Partial opacification of the left mastoid air cells. CT/Brain/Head without Contrast IMPRESSION: Chronic involutional changes of the brain. Air-fluid levels in multiple sinuses as described. Electronically Signed: Bhaskar Dyson MD at 10:44 EDT ,
--- NOTE | 2022-01-02 10:04 | EKG12_ITS ---
Test Reason : Blood Pressure : / mmHG Vent. Rate : 080 BPM Atrial Rate : 080 BPM P-R Int : 320 ms QRS Dur : 090 ms QT Int : 370 ms P-R-T Axes : 089 038 084 degrees QTc Int : 426 ms Sinus rhythm with 1st degree A-V block Nonspecific T wave abnormality Abnormal ECG Confirmed by PRITI DUMONT, RASHEED ([id number]), pictures editor AMARIS CASTORENA ([id number]) on 01/04/2022 11:36:25 AM Referred By: KINSEY Confirmed By:RASHEED MARCOS MD
--- NOTE | 2022-01-02 10:12 | EDS_ITS ---
HPI HPI - Fall History of Present Illness Chief Complaint: Fall Detail of Chief Complaint: Daughter is the primary informant since patient has altered mental status Informant: family Occured/Mechanism Occurred: - (Unknown) Narrative: Between the commode and bathtub this morning Fall from Height (ft): Fall from standing position Usually ambulates: Without assistance Pain/Injury Location: Unable to determine Worsened by: Unknown Relieved by: Unknown Associated Symptoms Associated Symptoms: Positive for Amnesia Length of loss of consciousness: Unknown Narrative Narrative: Patient is a 76-year-old male on Plavix because he had cardiac stents placed fall of last year. He was found between the commode and bathtub. He has altered mental status. Is disoriented. He has obvious trauma to his head right frontal temporal region with soft tissue swelling abrasion noted. Patient has an appointment to see his PCP for abscess ear. Spoke to . She believes it was an abscess. There were not blisters. He did not complain of pain. He also complained of right leg pain. Tetanus Immunization: Unknown Prior similar symptoms: Yes Recent Illness/Hospitalization: No PFSH PFSH Medical History Acute respiratory failure with hypoxia Altered mental status Anemia Anemia Anxiety Atherosclerotic heart disease of [place] coronary artery without angina pectoris Atrial fibrillation Back pain Chest pain CHF (congestive heart failure) Congestive heart failure (CHF) COPD exacerbation Coronary artery disease Degenerative disc disease, lumbar Degenerative disk disease Delirium Diabetes Former smoker GERD (gastroesophageal reflux disease) Hallucinations HLD (hyperlipidemia) Hypertension Hypertension Hypertensive urgency Hypoxia Lower extremity edema Macrocytic anemia On home oxygen therapy Orthostatic hypotension Parkinson's disease Presence of stent in coronary artery (~05/12/21) Short-term memory loss Syncope Vertigo Home Medications aspirin [Aspirin Low Dose] 81 mg PO DAILY 05/26/21 [History Last Taken 01/01/22] atorvastatin 10 mg PO DAILY 05/26/21 [History Last Taken 01/01/22] clopidogrel 75 mg tablet 75 mg PO DAILY #90 tab 07/20/21 [Rx Last Taken 01/01/22] amlodipine 5 mg tablet 5 mg PO DAILY #90 tab 09/12/21 [Rx Last Taken 01/01/22] carbidopa-levodopa 0.5 tab PO TID 10/25/21 [History Last Taken 01/01/22] cyanocobalamin (vitamin B-12) 1,000 mcg PO DAILY@1200 10/25/21 [History Last Taken 01/01/22] folic acid 1 mg PO DAILY@1200 10/25/21 [History Last Taken 01/01/22] pantoprazole 40 mg PO DAILY PRN 10/25/21 [History Last Taken Unknown] potassium chloride 40 meq PO DAILY 10/25/21 [History Last Taken 01/01/22] albuterol sulfate [ProAir HFA] 1 inh INHALATION Q6H PRN #6.7 g 10/28/21 [Rx Last Taken Unknown] spironolactone 25 mg tablet 25 mg PO DAILY #30 tab 11/08/21 [Rx Last Taken 01/01/22] Allergy/AdvReac Type Severity Reaction Status Date / Time No Known Allergies Allergy Verified 01/02/22 09:34 Surgical History History of coronary artery stent placement Presence of coronary angioplasty implant and graft (~05/12/21) Social History household members: spouse Smoking Status: Former smoker alcohol intake: never substance use type: does not use ROS ROS ED Review of Systems ROS Unobtainable: due to mental status and other Details: The only information that was available is what been document the HPI. EXAM Physical Exam Const Vital Signs: 01/02/22 09:48 01/02/22 12:00 01/02/22 12:01 Temperature 98.5 F 98.4 F Temperature Source Oral Oral Pulse Rate 80 70 70 Respiratory Rate 19 H 17 17 Respiratory Effort Normal Non-Labored Respiratory Depth Normal Respiratory Pattern Normal Blood Pressure 145/81 H 143/62 H Blood Pressure Mean 102 89 Pulse Ox 99 97 97 Oxygen Delivery Method Room Air Room Air Room Air Oxygen Flow Rate (L/min) 99 01/02/22 13:31 01/02/22 14:05 Temperature 98.0 F Temperature Source Oral Pulse Rate 73 73 Respiratory Rate 18 17 Respiratory Effort Respiratory Depth Respiratory Pattern Blood Pressure 138/58 H 137/55 H Blood Pressure Mean 84 82 Pulse Ox 97 Oxygen Delivery Method Room Air Oxygen Flow Rate (L/min) Positive well nourished and well developed General Appearance ED: well developed; Negative for NAD HEENT Reports TM's clear HEENT Narrative: No clinical findings of basal skull fracture. Patient does have a bloody brown discharge noted left ear. There is no discomfort pulling on the auricle portion of the tragus. TM is normal. There is no lesions to suggest Javed Russell syndrome. He has no evidence of Cruz's palsy either. trauma, contusion Contusion Size: There is contusion right foot side of the forehead mormonism area with abrasio and tenderness Tympanic Membrane ED: Yes TM's clear Eyes EOMs intact bilaterally Eyes Narrative: There is no subconjunctival hemorrhage. There is no APD. Unable to see fundi. General Eye ED: Negative for pale conjunctiva or scleral icterus Neck full ROM and no lymphadenopathy General: Negative for tenderness Chest Wall inspection of chest normal and palpation of chest normal Resp normal respiratory effort and No clear to auscultation bilaterally Auscultation: other Adventitial breath sounds right concern for aspiration Cardio regular rate, regular rhythm, S1 normal heart sound, S2 normal heart sound and no murmurs GI non-tender, non-distended and no masses Auscultation: normoactive bowel sounds Palpation: soft Back/Spine no CVA tenderness Back/Spine Narrative: Patient does perceive pain. Cervical Spine: cervical spine tenderness Lumbar Spine / Lower Back: lumbar spinal tenderness Extremity full ROM, normal capillary refill, no joint enlargement and no clubbing, cyanosis or edema Neuro No oriented x3, CN's II-XII intact bilaterally and moves all extremities Neuro Narrative: DTR 1+ bicep, brachialis, tricep, patella and ankle and symmetric. Negative Babinski sign. Negative clonus. [place] Coma Scale: document GCS findings To Voice Obeys Commands Confused 13 Sensorium / Orientation: Negative for alert Skin Lesions: no lesions Rashes: no rashes Trauma: abrasion MDM MDM MDM Narrative Medical decision making narrative: With evidence of trauma altered level of consciousness will obtain CT to rule out bleed. Per Nexus criteria C-spine cannot be cleared clinically will obtain CT of the neck. Because patient may have been on the floor for greater than 12 hours CPK was ordered to assess for rhabdomyolysis. CBC to assess white count differential and H&H. Comprehensive metabolic panel to assess electrolytes, CO2 anion gap and renal function. Tetanus was updated. UA was obtained rule out urinary tract infection. Lab Data Attestation: I reviewed the patient's lab results. Lab results narrative: White count is elevated with shift. There is no b andemia. Comprehensive metabolic panel is remarkable an elevated BUN to creatinine ratio at 27.61. Lactate is normal. UA is unremarkable. CPK is mildly elevated and there is evidence of mild rhabdomyolysis. This could be treated with IV fluids. Labs: Laboratory Results - last 24 hr 01/02/22 01/02/22 01/02/22 10:00 10:00 10:00 WBC 13.4 H RBC 3.16 L Hgb 9.8 L Hct 29.2 L MCV 92.4 MCH 31.0 MCHC 33.6 RDW Std Deviation 48.1 H RDW Coeff of Sophie 14.1 Plt Count 185 MPV 9.8 Immature Gran % (Auto) 0.500 Neut % (Auto) 84.2 H Lymph % (Auto) 7.6 L [place] % (Auto) 6.9 Eos % (Auto) 0.4 Baso % (Auto) 0.4 Absolute Neuts (auto) 11.3 H Absolute Lymphs (auto) 1.01 Nucleated RBC % 0 Sodium 143 Potassium 4.4 Chloride 111 H Carbon Dioxide 23.0 Anion Gap 9 BUN 32 H Creatinine 1.16 Estim Creat Clear Calc 51.59 Est GFR (MDRD) Af Amer 78 Est GFR (MDRD) Non-Af 65 BUN/Creatinine Ratio 27.6 H Glucose 100 Lactic Acid 1.3 Calcium 8.8 Total Bilirubin 0.80 AST 53 H ALT 28 Alkaline Phosphatase 86 Total Creatine Kinase Total Protein 6.8 Albumin 3.5 Globulin 3.3 Albumin/Globulin Ratio 1.1 Urine Color Urine Clarity Urine pH Ur Specific [place] Urine Protein Urine Glucose (UA) Urine Ketones Urine Occult Blood Urine Nitrite Urine Bilirubin Urine Urobilinogen Ur Leukocyte Esterase Urine RBC Urine WBC Ur Squamous Epith Cells Urine Bacteria Urine Mucus 01/02/22 01/02/22 10:00 10:55 WBC RBC Hgb Hct MCV MCH MCHC RDW Std Deviation RDW Coeff of Sophie Plt Count MPV Immature Gran % (Auto) Neut % (Auto) Lymph % (Auto) [place] % (Auto) Eos % (Auto) Baso % (Auto) Absolute Neuts (auto) Absolute Lymphs (auto) Nucleated RBC % Sodium Potassium Chloride Carbon Dioxide Anion Gap BUN Creatinine Estim Creat Clear Calc Est GFR (MDRD) Af Amer Est GFR (MDRD) Non-Af BUN/Creatinine Ratio Glucose Lactic Acid Calcium Total Bilirubin AST ALT Alkaline Phosphatase Total Creatine Kinase 1786 H Total Protein Albumin Globulin Albumin/Globulin Ratio Urine Color Yellow Urine Clarity Clear Urine pH 5.0 Ur Specific [place] 1.020 Urine Protein 30 H Urine Glucose (UA) Normal Urine Ketones Negative Urine Occult Blood 25 H Urine Nitrite Negative Urine Bilirubin Negative Urine Urobilinogen Normal Ur Leukocyte Esterase Negative Urine RBC 0-5 SEEN Urine WBC 0-5 SEEN Ur Squamous Epith Cells 0-5 SEEN Urine Bacteria 0 SEEN Urine Mucus 0 SEEN Radiography Diagnostic Testing: Clinical Impression(s) from Imaging Studies Brain CT 01/02/22 10:03 IMPRESSION: Chronic involutional changes of the brain. Air-fluid levels in multiple sinuses as described. Electronically Signed: Bhaskar Dyson MD at 10:44 EDT , Cervical Spine CT 01/02/22 10:19 IMPRESSION: Normal unenhanced CT examination of the cervical spine. Electronically Signed: Bhaskar Dyson MD at 10:46 EDT , Chest X-Ray 01/02/22 10:32 IMPRESSION: Hyperinflation. The lungs are clear. Electronically Signed: Bhaskar Dyson MD at 11:09 EDT , Single view chest x-ray reveals no acute process. There is chronic changes noted. The hilum/mediastinum is unremarkable her the also structures are unremarkable. CT reveals pansinusitis. There is air-fluid levels in both frontal, both maxillary and sphenoid sinus. Since patient has altered mental status elevated white count he was treated with Rocephin. Rhythm Strip Rhythm Strip: Sinus Rhythm Rate: 88 Ectopy: None Discharge Plan Dx/Rx/DC Orders Clinical Impression: Acute pansinusitis, Abrasion of forehead, Contusion of forehead, Acute conjunctivitis of left eye, Elevated CPK, Acute prerenal azotemia, Encephalopathy acute Disposition Disposition: Acute Care Hospital [facility] Discharge Date/Time: 01/02/22 16:10
--- NOTE | 2022-01-02 10:19 | CT_ITS ---
STUDY: CT CERVICAL SPINE WITHOUT CONTRAST REASON FOR EXAM: Male, 76 years old. Trauma cannot clear by Nexus criteria RADIATION DOSAGE (If Supplied By Facility): CTDIvol = ( 20.98 ) mGy, DLP = ( 420.42 ) mGycm TECHNIQUE: High resolution transaxial imaging was performed without contrast material. Sagittal and coronal images were reconstructed. Individualized dose optimization techniques were used for this CT. COMPARISON: Comparison is made with prior examination 05/26/2021. FINDINGS: Partial opacification of the left mastoid air cells. Normal craniovertebral junction. There are degenerative changes of the anterior atlantoaxial articulation. Normal odontoid process. Normal cervical lordosis. Normal vertebral bodies and posterior osseous elements. C2-3: Normal endplates. Normal disc height and morphology. Normal central canal and intervertebral neuroforamina. C3-4: Normal endplates. Normal disc height and morphology. Normal central canal and intervertebral neuroforamina. C4-5: Normal endplates. Normal disc height and morphology. Normal central canal and intervertebral neuroforamina. C5-6: Normal endplates. Normal disc height and morphology. Normal central canal and intervertebral neuroforamina. C6-7: Normal endplates. Normal disc height and morphology. Normal central canal and intervertebral neuroforamina. C7-T1: Normal endplates. Normal disc height and morphology. Normal central canal and intervertebral neuroforamina. Normal visualized soft tissue structures. CT/Spine Cervical without Contras IMPRESSION: Normal unenhanced CT examination of the cervical spine. Electronically Signed: Bhaskar Dyson MD at 10:46 EDT ,
[2022-01-02 10:27] LABS: Absolute Lymphocyte Count 1.01 X10^3/uL (0.83-4.51); Absolute Neutrophil Count 11.3 X10^3/uL (2.0-7.7); Basophil# 0.05 X10^3/uL; Basophil% 0.4 % (0-1); Eosinophil# 0.05 X10^3/uL; Eosinophils% 0.4 % (0-5); Hematocrit 29.2 % (40-54); Hemoglobin 9.8 g/dL (13.0-16.5); Lymphocyte # 1.01 X10^3/ul (0.83-4.51); Lymphocyte % 7.6 % (19-41); Mean Corp Hgb Conc 33.6 g/dL (32-36); Mean Corpuscular Volume 92.4 fL (80-94); Mean Platelet Vol. 9.8 fl (6.2-12.0); Monocyte# 0.92 X10^3/uL; Monocyte% 6.9 % (0-10); NRBC Flagged by Analyzer 0 % (0-5); Neutrophil # 11.25 X10^3/uL (2.7-7.7); Neutrophil % 84.2 % (47-70); Platelet Count 185 K/mm3 (150-450); RBC Distribution Width CV 14.1 % (11.6-14.6); RBC Distribution Width SD 48.1 fl (35.1-43.9); Red Blood Count 3.16 M/mm3 (4.6-6.2); White Blood Count 13.4 K/mm3 (4.4-11.0)
--- NOTE | 2022-01-02 10:32 | RAD_ITS ---
STUDY: X-RAY CHEST REASON FOR EXAM: Male, 76 years old. Tissue breath sounds right, concern aspiration TECHNIQUE: Single AP portable view of the chest. COMPARISON: Comparison is made with prior study dated 10/25/2021. FINDINGS: EKG electrodes are seen. There is hyperinflation of the lungs consistent with chronic obstructive lung disease (COPD). There is no demonstrated pleural abnormality. There is mild cardiac enlargement. Normal mediastinum and vandana. Normal visualized pulmonary arteries. There is atherosclerotic calcification of the aortic arch with tortuosity. Normal visualized thoracic spine. Normal visualized ribs, clavicles, and shoulders. Hiatal hernia. RAD/Chest 1 View (Portable) IMPRESSION: Hyperinflation. The lungs are clear. Electronically Signed: Bhaskar Dyson MD at 11:09 EDT ,
[2022-01-02 10:46] LABS: ALB/GLOB Ratio 1.1 RATIO (0.9-2.4); AST(SGOT) 53 U/L (15-37); Alanine Aminotransfer ALT/SGPT 28 U/L (16-61); Albumin, Serum 3.5 g/dL (3.2-5.0); Alkaline Phosphatase 86 U/L (45-117); Anion Gap 9 (5-15); BUN 32 mg/dL (7-18); BUN/Creat Ratio 27.6 RATIO (10-20); Calcium,Total 8.8 mg/dL (8.5-10.1); Chloride 111 mmol/L (98-107); Creatinine, Serum 1.16 mg/dL (0.70-1.30); EST Glomerular Filtration Rate 65 mL/min (>60); Est Glom Filt Rate - Afr Amer 78 mL/min (>60); Estimated Creatinine Clearance 51.59 ml/min; Globulin 3.3 g/dL (2.2-4.2); Glucose 100 mg/dL (74-106); Potassium 4.4 mmol/L (3.5-5.1); Protein, Total 6.8 g/dL (6.4-8.2); Sodium Level 143 mmol/L (136-145)
[2022-01-02 10:49] LABS: Lactic Acid 1.3 mmol/L (0.4-1.9)
[2022-01-02 11:06] LABS: Bacteria 0 SEEN /hpf (None Seen); Mucous, Urine 0 SEEN /hpf (<or=2+)
[2022-01-02 11:07] LABS: Color, Urine Yellow (Yellow); Glucose, Dipstick Normal (Normal); Ketone-Dipstick Negative (Negative); Leukocyte Esterase-Dipstick Negative /ul (Negative); Nitrite-Dipstick Negative (Negative); Occult Blood-Urine 25 /ul (Negative); Protein-Dipstick 30 mg/dl (Negative); Urine Bilirubin Dipstick Negative (Negative); Urine Clarity Clear (Clear); Urine Urobilinogen Normal (Normal)
[2022-01-02 11:13] LABS: Red Blood Cells-Urine 0-5 SEEN /hpf (0-5); Squamous Epithelial Cells - UA 0-5 SEEN /hpf (0-5); White Blood Cells 0-5 SEEN /hpf (0-5)
[2022-01-02 11:48] LABS: CPK Total, Creatine Kinase 1786 U/L (39-308)
--- NOTE | 2022-01-02 15:24 | PCM.HP.STD ---
HPI - General General Date of Admission: 01/02/22 HPI Narrative KERRY VALDES, is a 76 M who presented to the emergency department at [facility] on 01/02/2022 after suffering a fall from a standing position. The patient was found this morning between the toilet and the bathtub. He was there for an unknown period of time. The patient has dementia at baseline and is not able to really contribute much to his history although the emergency department physician spoke with family who was at the bedside and did indicate that he had some altered mental status and was disoriented as compared to his baseline. There evidently had been some ongoing ear issues as an appointment had been made with his PCP for ear abscess.. His recently and the patient is living alone. In the emergency department he was afebrile with a heart rate in the 70s to 80s, his blood pressure was in the 140s over 80s, his respiratory rate was normal and he was satting 97 to 99% on room air. His CBC showed a leukocytosis with a white count of 13.4 and a left shift was present. He had a mild stable normocytic anemia that appears to be chronic. His chemistry showed a mildly elevated chloride at 111 a mildly elevated BUN and serum creatinine at 32 and 1. 1 6 respectively. His lactic was 1.3 he had a mildly elevated AST at 53 and his CPK was noted to be 1786. His urine showed occult blood but no RBCs indicating myoglobulinuria. A CT of his head and showed chronic involutional changes of the brain as well as air-fluid levels in multiple sinuses and partial opacification of the left mastoid air cells. On exam he had no tenderness at the left mastoid process but did have perforation of his left tympanic membrane. With his fall on presentation CT of his cervical spine was performed and showed normal and enhancement of the cervical spine. His chest x-ray showed hyperinflation but no acute processes. His EKG was normal sinus rhythm with a first-degree AV block. The emergency department he was treated with IV fluids as well as ceftriaxone and request for admission was made. [facility] Medical History Acute respiratory failure with hypoxia Altered mental status Anemia Anemia Anxiety Atherosclerotic heart disease of [place] coronary artery without angina pectoris Atrial fibrillation Back pain Chest pain CHF (congestive heart failure) Congestive heart failure (CHF) COPD exacerbation Coronary artery disease Degenerative disc disease, lumbar Degenerative disk disease Delirium Diabetes Former smoker GERD (gastroesophageal reflux disease) Hallucinations HLD (hyperlipidemia) Hypertension Hypertension Hypertensive urgency Hypoxia Lower extremity edema Macrocytic anemia On home oxygen therapy Orthostatic hypotension Parkinson's disease Presence of stent in coronary artery (~05/12/21) Short-term memory loss Syncope Vertigo Home Medications aspirin [Aspirin Low Dose] 81 mg PO DAILY 05/26/21 [History Last Taken 01/01/22] atorvastatin 10 mg PO DAILY 05/26/21 [History Last Taken 01/01/22] clopidogrel 75 mg tablet 75 mg PO DAILY #90 tab 07/20/21 [Rx Last Taken 01/01/22] amlodipine 5 mg tablet 5 mg PO DAILY #90 tab 09/12/21 [Rx Last Taken 01/01/22] carbidopa-levodopa 0.5 tab PO TID 10/25/21 [History Last Taken 01/01/22] cyanocobalamin (vitamin B-12) 1,000 mcg PO DAILY@1200 10/25/21 [History Last Taken 01/01/22] folic acid 1 mg PO DAILY@1200 10/25/21 [History Last Taken 01/01/22] pantoprazole 40 mg PO DAILY PRN 10/25/21 [History Last Taken Unknown] potassium chloride 40 meq PO DAILY 10/25/21 [History Last Taken 01/01/22] albuterol sulfate [ProAir HFA] 1 inh INHALATION Q6H PRN #6.7 g 10/28/21 [Rx Last Taken Unknown] spironolactone 25 mg tablet 25 mg PO DAILY #30 tab 11/08/21 [Rx Last Taken 01/01/22] Allergy/AdvReac Type Severity Reaction Status Date / Time No Known Allergies Allergy Verified 01/02/22 09:34 Surgical History History of coronary artery stent placement Presence of coronary angioplasty implant and graft (~05/12/21) Social History household members: spouse Smoking Status: Former smoker alcohol intake: never substance use type: does not use ROS ROS Narrative Unable to obtain secondary to patient's current mental status Review of Systems ROS Unobtainable: due to mental status Vital Signs Vital Signs Vital Signs: 01/02/22 09:48 01/02/22 12:00 01/02/22 12:01 Temperature 98.5 F 98.4 F Temperature Source Oral Oral Pulse Rate 80 70 70 Respiratory Rate 19 H 17 17 Respiratory Effort Normal Non-Labored Respiratory Depth Normal Respiratory Pattern Normal Blood Pressure 145/81 H 143/62 H Blood Pressure Mean 102 89 Pulse Ox 99 97 97 Oxygen Delivery Method Room Air Room Air Room Air Oxygen Flow Rate (L/min) 99 01/02/22 13:31 01/02/22 14:05 Temperature 98.0 F Temperature Source Oral Pulse Rate 73 73 Respiratory Rate 18 17 Respiratory Effort Respiratory Depth Respiratory Pattern Blood Pressure 138/58 H 137/55 H Blood Pressure Mean 84 82 Pulse Ox 97 Oxygen Delivery Method Room Air Oxygen Flow Rate (L/min) Weight Weight: 88.3 kg Body Mass Index (BMI) 29.5 Physical Exam Const Constitutional Narrative: Older white male who appears older than stated age lying in bed with eyes closed tightly and resisting passive opening, appears mildly agitated but unwilling to participate fully with exam at this time, nursing at bedside, patient does not appear toxic HEENT HEENT Narrative: Large abrasion and contusion at right frontotemporal area, drainage that is dried in the left external auditory canal, perforation noted in the left tympanic membrane, fluid noted behind the right tympanic membrane with sclerosis at the periphery of the right tympanic membrane, edentulous, oral mucous membranes are dry Eyes PERRL, EOMs intact bilaterally and conjunctivae normal Eyes Narrative: mild purulent appearing drainage from the left eye, no drainage from the right eye, no scleral icterus, patient resists passive opening of eyes Neck no lymphadenopathy, supple, no JVD and no carotid bruits Neck Narrative: Trachea midline, no thyroid enlargement Resp normal respiratory effort, no retractions, no use of accessory muscles and clear to auscultation bilaterally Resp Narrative: Diffusely diminished but clear Auscultation: Negative for crackles, rales, rhonchi or wheezes Cardio regular rate, regular rhythm, S1 normal heart sound, S2 normal heart sound, no murmurs, no rub, no gallops, no clicks and no JVD GI normal to inspection, nondistended, normoactive bowel sounds, soft to palpation, non-tender and non-distended Extremity no clubbing, cyanosis or edema Peripheral Pulses: Yes pulses 2+ throughout Skin no rashes or lesions noted, skin turgor normal, no jaundice, no petechiae and no mottling Skin Narrative: Contusions as noted above, significant onychomycosis bilateral lower extremities Neuro Neuro Narrative: Patient with some rigidity on exam but appears to be resisting, neuro exam is difficult given current mental status, per nursing patient was communicating with them previously, no focal deficits noted as patient does passively move extremities, mild tremor noted Psych Psych Narrative: Unable to assess Results Lab / Micro Data Attestation: I reviewed the patient's lab results. Result Diagrams: 01/02/22 10:00 01/02/22 10:00 Labs: Laboratory Results - last 24 hr 01/02/22 10:00: WBC 13.4 H, RBC 3.16 L, Hgb 9.8 L, Hct 29.2 L, MCV 92.4, MCH 31.0, MCHC 33.6, RDW Std Deviation 48.1 H, RDW Coeff of Sophie 14.1, Plt Count 185, MPV 9.8, Immature Gran % (Auto) 0.500, Neut % (Auto) 84.2 H, Lymph % (Auto) 7.6 L, [place] % (Auto) 6.9, Eos % (Auto) 0.4, Baso % (Auto) 0.4, Absolute Neuts (auto) 11.3 H, Absolute Lymphs (auto) 1.01, Nucleated RBC % 0 01/02/22 10:00: Sodium 143, Potassium 4.4, Chloride 111 H, Carbon Dioxide 23.0, Anion Gap 9, BUN 32 H, Creatinine 1.16, Estim Creat Clear Calc 51.59, Est GFR (MDRD) Af Amer 78, Est GFR (MDRD) Non-Af 65, BUN/Creatinine Ratio 27.6 H, Glucose 100, Calcium 8.8, Total Bilirubin 0.80, AST 53 H, ALT 28, Alkaline Phosphatase 86, Total Protein 6.8, Albumin 3.5, Globulin 3.3, Albumin/Globulin Ratio 1.1 01/02/22 10:00: Lactic Acid 1.3 01/02/22 10:00: Total Creatine Kinase 1786 H 01/02/22 10:55: Urine Color Yellow, Urine Clarity Clear, Urine pH 5.0, Ur Specific [place] 1.020, Urine Protein 30 H, Urine Glucose (UA) Normal, Urine Ketones Negative, Urine Occult Blood 25 H, Urine Nitrite Negative, Urine Bilirubin Negative, Urine Urobilinogen Normal, Ur Leukocyte Esterase Negative, Urine RBC 0-5 SEEN, Urine WBC 0-5 SEEN, Ur Squamous Epith Cells 0-5 SEEN, Urine Bacteria 0 SEEN, Urine Mucus 0 SEEN Rhythm Strip Rhythm Strip: Sinus Rhythm Rate: 88 Ectopy: None Radiology Impression Brain CT 01/02/22 10:03 IMPRESSION: Chronic involutional changes of the brain. Air-fluid levels in multiple sinuses as described. Electronically Signed: Bhaskar Dyson MD at 10:44 EDT , Cervical Spine CT 01/02/22 10:19 IMPRESSION: Normal unenhanced CT examination of the cervical spine. Electronically Signed: Bhaskar Dyson MD at 10:46 EDT , Chest X-Ray 01/02/22 10:32 IMPRESSION: Hyperinflation. The lungs are clear. Electronically Signed: Bhaskar Dyson MD at 11:09 EDT , Assessment & Plan Assessment/Plan (1) Sinus infection: (2) Perforated left tympanic membrane on examination: (3) Metabolic encephalopathy: (4) Rhabdomyolysis: (5) Abrasion of forehead: (6) Contusion of forehead: (7) Leukocytosis: (8) Falls: PLAN: Debility/falls/abrasion of forehead -Patient had a fall at home where he was caught between his bathtub and his toilet -Was lying from unknown amount of time however it is gas to be approximately 5 to 6 hours -CK's are mildly elevated -Consult PT/OT -Suspect patient will need placement at discharge -Case management consulted Mild rhabdomyolysis -IV fluids at 75 cc/h -Repeat CK in a.m. -Current renal function is at baseline -Urine does appear to have mild myoglobulin anemia with 25 occult blood but no RBCs -Monitor renal function Acute sinusitis/otitis media with a perforated left tympanic membrane -Patient has significant fluid drainage from his left ear on presentation -Physical exam reveals small hole centrally in the left tympanic membrane -Suspect perforation related to acute sinusitis -Start Zosyn -Would treat with antibiotics for at least 7 days -Suspect leukocytosis is related to this -If does not clinically improve may need to pursue MRI with encephalopathy Metabolic encephalopathy -Suspect multifactorial from fall/rhabdo/dehydration/sinusitis/perforated left tympanic membrane -CT of head shows no acute findings -Patient also appears to be significantly fatigued and this may be contributing to this -Also with some dementia at baseline -May need to consider MRI if clinically does not improve CAD/HTN/HPL -Patient had stent placement in May of 2021 -The notes for details -Continue low-dose aspirin -Continue atorvastatin -Continue Plavix -Continue amlodipine GERD -Continue Protonix History of syncopal episodes -Work-up is in progress -Florinef has been discontinued -No recurrent episodes per cardiology notes from earlier this month Lewy body dementia/Parkinson's disease -Diagnosis has not yet been confirmed although work-up is in progress and suspected -Continue carbidopa levodopa -Patient having intermittent hallucinations and short-term memory loss for some time now -Follows with Dr. Jarvis from neurology -Suspect patient will need placement at discharge History of COPD -Remote history of tobacco abuse -It does not appear the patient has any PFTs on record at this institution although he does follow at [facility] -He is not on any current inhalers -We will utilize pulmonary toilet as above Chronic macrocytic anemia -Hemoglobin is stable -Continue to monitor DVT prophylaxis -Lovenox 40 mg daily -SCDs CODE STATUS -DNR CCA with no intubation as per previous admission which was performed by me at which time I had a discussion with the daughter with regards to CODE STATUS Charges/Coding Visit Charges Inpatient E&M: 17411 Init Hosp L3
--- NOTE | 2022-01-02 15:26 | NURSING ---
MED SURG LAQUITA PANSINUSITIS, ENCEPHALOPATHY, ELEVATED CPR, RENAL INSUFFICIENCY, OTITIS MED
[2022-01-02] MEDS: 0.9% Normal Saline 1,000 ML 75 ML IV (18:42)
[2022-01-02] MEDS: Acetaminophen 650 MG Suppository RC (22:45)
[2022-01-03 03:55] VITALS: PULSE 61
[2022-01-03] MEDS: Nystatin Powder 15gm Bottle 1 APPLIC TOPICAL ×3 (04:47→21:50)
[2022-01-03] MEDS: Menthol/Lanolin/Calamine/Znox 113 GM Tube 1 APPLIC TOPICAL ×3 (04:48→21:37)
[2022-01-03 04:56] VITALS: BP 141/54; PULSE 62; RESP 16; TEMP 37.2; O2SAT 97
[2022-01-03 05:19] LABS: Absolute Lymphocyte Count 1.13 X10^3/uL (0.83-4.51); Absolute Neutrophil Count 7.3 X10^3/uL (2.0-7.7); Basophil# 0.03 X10^3/uL; Basophil% 0.3 % (0-1); Eosinophil# 0.19 X10^3/uL; Hemoglobin 8.5 g/dL (13.0-16.5); Lymphocyte # 1.13 X10^3/ul (0.83-4.51); Mean Corp Hgb Conc 32.7 g/dL (32-36); Mean Corpuscular Hgb 30.6 pg (27.0-32.0); Mean Corpuscular Volume 93.5 fL (80-94); Mean Platelet Vol. 9.5 fl (6.2-12.0); Monocyte# 0.77 X10^3/uL; Monocyte% 8.2 % (0-10); NRBC Flagged by Analyzer 0 % (0-5); Neutrophil # 7.26 X10^3/uL (2.7-7.7); Neutrophil % 77.2 % (47-70); Platelet Count 156 K/mm3 (150-450); RBC Distribution Width SD 47.9 fl (35.1-43.9); Red Blood Count 2.78 M/mm3 (4.6-6.2); White Blood Count 9.4 K/mm3 (4.4-11.0)
[2022-01-03 05:50] LABS: Phosphorus 2.8 mg/dL (2.5-4.9)
[2022-01-03 05:57] LABS: AST(SGOT) 54 U/L (15-37); Alanine Aminotransfer ALT/SGPT 28 U/L (16-61); Albumin, Serum 2.9 g/dL (3.2-5.0); Alkaline Phosphatase 73 U/L (45-117); Anion Gap 6 (5-15); BUN 31 mg/dL (7-18); BUN/Creat Ratio 30.1 RATIO (10-20); CPK Total, Creatine Kinase 1356 U/L (39-308); Calcium,Total 8.2 mg/dL (8.5-10.1); Chloride 115 mmol/L (98-107); Creatinine, Serum 1.03 mg/dL (0.70-1.30); EST Glomerular Filtration Rate 74 mL/min (>60); Est Glom Filt Rate - Afr Amer 90 mL/min (>60); Estimated Creatinine Clearance 58.11 ml/min; Glucose 100 mg/dL (74-106); Magnesium 2.1 mg/dL (1.6-2.6); Potassium 3.8 mmol/L (3.5-5.1); Protein, Total 5.9 g/dL (6.4-8.2); Sodium Level 143 mmol/L (136-145)
[2022-01-03] MEDS: 0.9% Normal Saline 1,000 ML 75 ML IV ×2 (06:33→20:29)
[2022-01-03 10:21] VITALS: O2SAT 100
[2022-01-03] MEDS: Carbidopa/Levodopa 25/100 Tablet PO ×2 (10:47→16:52)
[2022-01-03] MEDS: Enoxaparin 40 MG/0.4 ML Syringe SC (10:47)
[2022-01-03] MEDS: Clopidogrel Bisulfate 75 MG Tablet PO (10:47)
[2022-01-03] MEDS: amLODIPine 5 MG Tablet PO (10:47)
[2022-01-03] MEDS: Spironolactone 25 MG Tablet PO (10:48)
[2022-01-03] MEDS: Aspirin E.C. 81 MG Tablet PO (10:48)
[2022-01-03 10:54] VITALS: BP 141/44; PULSE 60; RESP 18; TEMP 36.7; O2SAT 98
--- NOTE | 2022-01-03 11:30 | CASEMGMT ---
CALIN TORREZ Assessment: RN LORE to room for initial transition planning/care coordination assessment. CALIN TORREZ introduced self and role at [facility]. Pt sitting up in recliner chair in room. Pt states for CALIN TORREZ to call his daughter to ask her questions, stating she helps take care of those things. Pt w/hx of dementia. Call placed to daughter/POALibia. Care providers, pharmacy, and demographics verified/updated at this time. PCP: Dr England Specialists: Dr Nguyen- cardiology, Dr. Romeo Jarvis- neurology [facility]erred [facility]acy: [facility] Insurance: [place] [employer] [facility] Prescription Benefit: Yes. Libia states they do use [facility] for most prescription medications. Living Will/HPOA: Patient has a living will and HPOA is daughter Libia Cooney. These forms are on file at [facility]. LNOK: Daughter, Libia Cooney Living Arrangements: Patient lives alone in first floor, single story apartment with no steps to enter. Patient's daughter states pt has continued to be independent w/ADLs- bathing, dressing and cooking. Libia stated, He was able to do everything you and I can do. Patient's daughter and granddaughter live close and check on patient frequently. Patient's daughter reported in October @ pt's last admission, that she had a camera installed in patient's apartment so that could monitor him using her cell phone. She confirms they still have the camera system in place, but it is in all the rooms except for the bathroom. Libia states she manages all of pt's medications and appts. Transportation: Patient does not drive (since March 2021). Libia provides transportation. Per Libia, pt unable to drive d/t cataracts and they planned on giving pt's keys back after he has cataract surgery. DME/HHC/SNF: Patient ambulates with the use of a FWW. Pt also has: [id number] transfer bench, tub bench, grab bars, raised toilet seat, pulse oximetry monitor, glucometer and [employer] urine collection system. Pt also has a hospital bed, with a regular mattress on top. Libia states is wondering where they can get a specialty mattress for this. CALIN TORREZ informed her would place a list of local DME companies that may be able to provide this. Patient has home oxygen supplied through [employer] that pt was only wearing @ 2LPM @ HS in the past, but d/t restlessness @ night, he does not often wear it. Per Nahid, last admit, current orders are for 3 LPM continuously. SNF/HHC: Hx: [facility] and [facility]. Pt has also been to: [facility] and [facility]. Libia states she does not want pt to go to a SNF, as they did not have good experiences in the past. Discussed OT notes from today, as pt needed verbal cuing and mod assist for safety. Also made aware MBS scheduled and currently ST recommendations for supervision w/meals. Inquired if they are able to provide 24/hr care. She states there might be a possibility my daughter can stay and help to take care of him. Per Libia, her daughter is in her 30's. CALIN TORREZ recommended for her to observe therapy working w/pt to be able to see pt's current level of functioning so she can see if the assistance pt is needing is something her daughter is willing or able to provide. Libia states she would like to do this, stated, Safety takes priority over everything else. Libia states she is usually available from 11 AM to 2 PM. CALIN TORREZ informed her CM would f/u w/her for arrangements for her to come in to observe pt working w/therapy. Plan: TBD by course of treatment and progress w/therapy. Bryan ALVAREZ RN, CM
--- NOTE | 2022-01-03 11:46 | CASEMGMT ---
Spoke with OT who has worked with pt today and PT who will eval tomorrow to make aware that dtr would like to see how pt does with therapy. She is available between 11-. TC to pt dtr, Libia who is DPOA to make aware of the above and that RN CM will call in the morning to give a better time for therapy eval.
--- NOTE | 2022-01-03 12:24 | CASEMGMT ---
Email to Palliative Care, pt is active. Pt was seen in October at the hospital and first community visit planned on 01/20/2022. Palliative aware pt is hospitalized.
[2022-01-03] MEDS: Folic Acid 1 MG Tablet PO (13:24)
[2022-01-03] MEDS: Cyanocobalamin 500 MCG Tablet 1000 MCG PO (13:24)
[2022-01-03 14:25] VITALS: BP 153/42; PULSE 62; RESP 16; TEMP 36.3; O2SAT 98
--- NOTE | 2022-01-03 16:18 | CHAPLAIN ---
Type of Pastoral Visit _x__ Initial Visit ___ Follow-up Visit ___ On-call Visit ___ General Patient Visit ___ Spiritual Assessment ___ Family Conference ___ Bereavement ___ Rapid Response ___ Code Blue ___ Other (describe below) Pastoral Care Referral From _x__ Patient ___ Family ___ Nurse ___ Physician ___ Waiter/Waitress Take Out ___ Sales Representative Printing ___ Other (describe below) Sacrament/Intervention _x__ Active listening ___ Anointing ___ Episcopal ___ Bereavement ___ Communion ___ Blank exploration ___ ___ Life review ___ Prayer ___ Reconciliation ___ Sacrament of Sick ___ Supportive presence ___ Wedding ___ Other (describe below) Pastoral Comments patient lying down in bed with no apparent distress; pt says he has no concerns but is waiting for a swallow test before he can be discharged;
--- NOTE | 2022-01-03 18:33 | PCM.PN.HOSP ---
Subjective Subjective Patient was seen and examined today, he did not complain of any shortness of breath or chest discomfort to this examiner, patient was able to answer simple questions for me today. Objective Data Objective Data Vital Signs: Vital Signs Temp Pulse Resp BP Pulse Ox 97.4 F L 62 16 153/42 H 98 01/03/22 14:25 01/03/22 14:25 01/03/22 14:25 01/03/22 14:25 01/03/22 14:25 Oxygen Flow Rate (L/min) 99 Oxygen Delivery Method Room Air Weight: 88.3 kg Body Mass Index (BMI) 29.9 Intake & Output: Intake and Output for Last 24 Hours 01/01/22 01/02/22 01/03/22 23:59 23:59 23:59 Intake Total 50 / 50 1683.75 / 1683.75 Output Total 450 / 450 300 / 300 Balance -400 / -400 1383.75 / 1383.75 Medical Nutrition Assessment Dietitian: Malnutrition Criteria Met Start: 01/02/22 18:06 Freq: Status: Active Protocol: Document 01/02/22 18:06 RMA (Rec: 01/02/22 18:06 RMA [id number]) Nutrition Malnutrition Evidence of Malnutrition Exists Yes Malnutrition (severe): Chronic Evidenced By Suboptimal Energy Intake ( Severe),Weight Loss (Severe) Clinical Problem Chronic Disease or Condition Related Malnutrition Etiology Severe protein-calorie malnutrition in the context of chronic disease/debility/ weakness related to inadequate oral intake Signs/Symptoms as evidenced by 13% weight loss x past 6-8 months and PO meeting less than 50% estimated nutrition needs x 6 months Status Active Problem Recommendation Dietitian Recommendations/Changes Will liberalize diet to regular/no added salt. Will add 120 ml ensure enlive 4 times per day w/ medpass. Will adjust ONS as needed once intake established with meals . Lab / Micro Data Result Diagrams: 01/03/22 05:10 01/03/22 05:10 Labs: Laboratory Results - last 24 hr 01/03/22 05:10: Sodium 143, Potassium 3.8, Chloride 115 H, Carbon Dioxide 22.0, Anion Gap 6, BUN 31 H, Creatinine 1.03, Estim Creat Clear Calc 58.11, Est GFR (MDRD) Af Amer 90, Est GFR (MDRD) Non-Af 74, BUN/Creatinine Ratio 30.1 H, Glucose 100, Calcium 8.2 L, Magnesium 2.1, Total Bilirubin 0.60, AST 54 H, ALT 28, Alkaline Phosphatase 73, Total Creatine Kinase 1356 H, Total Protein 5.9 L, Albumin 2.9 L, Globulin 3.0, Albumin/Globulin Ratio 1.0 01/03/22 05:10: WBC 9.4, RBC 2.78 L, Hgb 8.5 L, Hct 26.0 L, MCV 93.5, MCH 30.6, MCHC 32.7, RDW Std Deviation 47.9 H, RDW Coeff of Sophie 14.0, Plt Count 156, MPV 9.5, Immature Gran % (Auto) 0.300, Neut % (Auto) 77.2 H, Lymph % (Auto) 12.0 L, [place] % (Auto) 8.2, Eos % (Auto) 2.0, Baso % (Auto) 0.3, Absolute Neuts (auto) 7.3, Absolute Lymphs (auto) 1.13, Nucleated RBC % 0 01/03/22 05:10: Phosphorus 2.8 Rhythm Strip Rhythm Strip: Sinus Rhythm Rate: 88 Ectopy: None Physical Exam Const alert and no apparent distress Constitutional Narrative: Patient is alert, he is pleasantly confused but does answer simple questions appropriately General Appearance: cooperative, well kempt and well developed Orientation / Consciousness: awake, oriented to person, oriented to place and oriented to time HEENT normocephalic, head/scalp atraumatic and moist oral mucous membranes Head and Scalp: normocephalic Eyes PERRL, EOMs intact bilaterally and conjunctivae normal Neck nuchal rigidity, supple, no JVD, thyroid normal and no carotid bruits General: trachea midline Resp normal respiratory effort, no retractions, no use of accessory muscles and clear to auscultation bilaterally Auscultation: Negative for rales, rhonchi or wheezes Cardio regular rate, regular rhythm, S1 normal heart sound, S2 normal heart sound, no murmurs, no rub and no gallops GI normal to inspection, nondistended, normoactive bowel sounds, soft to palpation, non-tender and non-distended Extremity no clubbing, cyanosis or edema Skin no rashes or lesions noted General Skin Exam: no breakdown Neuro CN's II-XII intact bilaterally, no focal motor deficits and no sensory deficits noted Neuro Narrative: Patient is alert but confused Sensorium / Orientation: awake and alert Speech: speech normal Psych Psych Narrative: Patient is alert but confused Assessment & Plan Assessment/Plan (1) Falls: PLAN: 1. Acute on chronic debility-PT and OT will continue to see the patient, according to social sciences research scientist, family would prefer the patient not to be placed in a nursing facility, he lives nearby family members and there are cameras in his residence-unfortunately this may not be enough to ensure the patient's safety. #2 elevated CPK-I do not believe the patient has rhabdomyolysis at this point, continue fluid administration for now #3 chronic dementia, type unknown-complicates care and recovery #4 coronary artery disease-stable at this time, patient is continue on his present medications including atorvastatin and low-dose aspirin #5 essential hypertension-patient will continue on his present medications including amlodipine #6 hyperlipidemia-continue atorvastatin #7 history of COPD-patient is not currently on any inhalers, he is on room air, I will defer adding any aerosol treatments at this time. Charges/Coding Visit Charges Inpatient E&M: 88694 Subs Hosp L2
[2022-01-03 21:47] VITALS: BP 150/77; PULSE 62; RESP 16; TEMP 36.7; O2SAT 100
[2022-01-03] MEDS: Atorvastatin Calcium 10 MG Tablet PO (21:49)
[2022-01-03] MEDS: Acetaminophen 325 MG Tablet 650 MG PO (22:33)
[2022-01-04 02:42] VITALS: BP 162/68; PULSE 66; RESP 16; TEMP 36.9; O2SAT 100
[2022-01-04] MEDS: Acetaminophen 325 MG Tablet 650 MG PO ×2 (05:42→15:52)
[2022-01-04] MEDS: Carbidopa/Levodopa 25/100 Tablet PO ×3 (06:14→15:53)
[2022-01-04 07:07] VITALS: O2SAT 96
[2022-01-04 07:47] VITALS: BP 125/93; PULSE 62; RESP 14; TEMP 36.8; O2SAT 99
[2022-01-04] MEDS: Aspirin E.C. 81 MG Tablet PO (08:19)
[2022-01-04] MEDS: Clopidogrel Bisulfate 75 MG Tablet PO (08:19)
[2022-01-04] MEDS: Enoxaparin 40 MG/0.4 ML Syringe SC (08:19)
[2022-01-04] MEDS: amLODIPine 5 MG Tablet PO (08:19)
[2022-01-04] MEDS: Nystatin Powder 15gm Bottle 1 APPLIC TOPICAL (08:20)
[2022-01-04] MEDS: Spironolactone 25 MG Tablet PO (08:20)
[2022-01-04] MEDS: Menthol/Lanolin/Calamine/Znox 113 GM Tube 1 APPLIC TOPICAL (08:21)
[2022-01-04] MEDS: 0.9% Normal Saline 1,000 ML 75 ML IV (08:27)
[2022-01-04 09:05] VITALS: O2SAT 99
--- NOTE | 2022-01-04 10:43 | SP.MBSS_ITS ---
Modified Barium Swallow - Patient Information Study Date: 01/04/22 Study Time: 10:00 Direct Billable Minutes: 90 Total Minutes procedure & reportin Diagnosis: Parkinson's disease (G20) Referring Physician: Lon Avendano Reason for Referral: Objectively assess swallow function, risk for aspiration, and determine recommendations for least restrictive diet textures and compensatory strategies to improve safety of swallow. Medical History: Jc Warner is a 76 M who presented to the [facility] ED on 01/02/2022 after suffering a fall from a standing position. The patient was found this morning between the toilet and the bathtub. He was there for an unknown period of time. PMH significant for Dementia, Acute respiratory failure with hypoxia, COPD, CHF, Diabetes, Hypoxia, GERD, and Parkinson's (SEE chart for full PMH). Family concerns for increased disorientation. The patient lives alone and was recently . A CT of his head and showed chronic involutional changes of the brain as well as air-fluid levels in multiple sinuses and partial opacification of the left mastoid air cells. His chest x-ray showed hyperinflation but no acute processes. On day of admission, the patient was noted to have moist, wet cough and rhoncii in bilateral lower lobes. RN with concern for aspiration. Speech therapy consulted for BSE. EATING DISORDER PSYCHOLOGIST recommended the patient for Easy to Chew Textures (IDDSI Level 7) with meats cut bite size / Thin liquids and Distant supervision. Will plan for MBS study on 01/04/2022 due to rhonchorous lung sounds, baseline wet cough, hx of COPD, hx of PD, which concerned the EATING DISORDER PSYCHOLOGIST for silent aspiration. Current Diet Ordered: Easy to Chew Textures / Thin Liquids Dentition: Upper Dentures - Lower dentures are at home and are uncomfortable. Mental Status: Impaired - Some confusion Respiratory Status: Oxygenating on Room Air - Penetration-Aspiration Scale Penetration-Aspiration Scale: OBJECTIVE ASSESSMENT OF SWALLOW FUNCTION (QUANTITATIVE ? PER TRIAL): PENETRATION / ASPIRATION SCALE (TORRES): 1 = does not enter airway 2 = enters airway/above vocal folds/ejected 3 = enters airway/above vocal folds/not ejected 4 = enters airway/contacts vocal folds/ejected 5 = enters airway/contacts vocal folds/not ejected 6 = enters airway/below vocal folds/ejected 7 = enters airway/below vocal folds/not ejected despite effort 8 = enters airway/below vocal folds/no effort VIDEOFLOROSCOPIC SCALE SCORE (TORRES): Grade I = aspiration of material that has penetrated into the laryngeal vestibule, intact cough reflex Grade II = aspiration < 10 % of the bolus, intact cough reflex Grade III = aspiration of < 10 % of the bolus, reduced cough reflex or aspiration of > 10 % of the bolus, intact cough reflex Grade IV = aspiration of > 10 % of the bolus, reduced cough reflex - Penetration-Aspiration Scale Score Thin Liquid via teaspoon Result: 1= does not enter airway Thin Liquid via teaspoon Trial 2 Result: 1= does not enter airway Thin Liquid via small single sip from cup Result: 1= does not enter airway Thin Liquid via sequential sips from cup Result: 1= does not enter airway [place] Thick Liquid via small single sip from cup Result: 1= does not enter airway Honey Thick Liquid via small single sip from cup Result: 1= does not enter airway Pudding via teaspoon Result: 1= does not enter airway Cookie Result: 1= does not enter airway Thin Liquid via single sip from straw Result: 1= does not enter airway Thin Liquid via sequential sips from straw Result: 1= does not enter airway - Oral Phase Labial Seal: No Labial Escape Tongue Control During Bolus Hold: Posterior escape of less than half of bolus Bolus Preparation/Mastication: Disorganized chewing/mashing with solid pieces of bolus unchewed Bolus Transport/Lingual Motion: Delayed initiation of tongue motion Oral Residue: Majority of bolus remaining - Piecemeal deglutition of cookie bolus - Pharyngeal Phase Initiation of Pharyngeal Swallow: Bolus head in pyriforms - Sequential sips Soft Palate Elevation: No bolus between soft palate and pharyngeal wall Laryngeal Elevation: Comp. Superior move thyroid cart w/comp. apprx arytenoid cart-epig pet Anterior Hyoid Excursion: Partial anterior movement Epiglottic Movement: Complete inversion Laryngeal Vestibule Closure at Height of Swallow: Complete; no air/contrast in laryngeal vestibule Pharyngeal Stripping Wave: Present - complete Pharyngoesophageal Segment Opening: Parital distension and partial duration; parital obstruction of flow Tongue Base Retraction: Narrow column of contrast between tongue base & post. pharyngeal wall Pharyngeal Residue: Collection of residue within or on pharyngeal structures - Esophageal Phase Esophageal Clearance: Esophageal retention w/ retrograde flow through pharyngoesophageal seg - Min retention in upper esophagus - Treatment Strategies Effects of treatment strategies attemped:: Multiple swallows = Effective. - Diagnosis/Impression Diagnosis: Mild oropharyngeal dysphagia (R13.12) Impression: The oral phase is marked by prolonged and disorganized mastication and mild- moderate oral residues after the swallow. He also presented with delayed A-P transport. He required piecemeal deglutition to clear the oral cavity of cookie residue. The pharyngeal phase is marked by mild-moderate pharyngeal residues. He has decreased tongue base retraction and decreased UES opening/duration, which resulted in residue in the vallecula and pyriforms. He often would independently initiate multiple swallows to clear pharyngeal residue, but required moderate verbal cues to perform a second, dry swallow to clear residue on final trial of the study. The patient demonstrated no laryngeal penetration or aspiration during the study. He had excellent airway closure during the swallow. The patient is at risk to aspirate pharyngeal residue after the swallow. The esophageal phase is marked by minimal retention of bolus in the upper esophagus with some retrograde flow through the upper esophageal sphincter. SEE photo attached at the end of the study in PACS. - Recommendations Diet: Regular Textures - Easy to chew textures (IDDSI Level 7) with meats cut bite size, Thin Liquids Compensatory Strategies: Small Bites, Small Sips, Slow Rate, Multiple Swallows - Intermittently use to clear pharyngeal residues, Sitting upright, Remain sitting upright for 30 minutes after PO intake Recommend Repeat Modified Barium Swallow: No Need for Skilled Speech Therapy Services: Yes Comment: Would consider implementation of oropharyngeal strengthening program to decrease pharyngeal residues (Brittany, tongue retraction, effortful swallow, Mick). The patient would benefit from continued education regarding diet recommendations and recommended compensatory strategies. Education Completed: 1. Described result of evaluation., 7. Pt requires further education on strategies & risks. - Status Active ST Patient: Active - Contact Information [facility] Speech Therapy:: Tammy Kendrick M.A. [facility]EATING DISORDER PSYCHOLOGIST Speech-Language Pathologist [facility] [address] [place] [address] [email or web address] [phone] 01/04/22 11:01
--- NOTE | 2022-01-04 11:02 | PCM.PN.HOSP ---
Subjective Subjective Patient was seen and examined today, he voices no complaints of any shortness of breath, chills, fever, or chest pain to this examiner. Patient replies appropriately to simple questions. Patient will have a swallowing eval today. It is anticipated that the patient's family will want him to return home when he is discharged here rather than go to a long-term. Objective Data Objective Data Vital Signs: Vital Signs Temp Pulse Resp BP Pulse Ox 98.2 F 62 14 125/93 H 99 01/04/22 07:47 01/04/22 07:47 01/04/22 07:47 01/04/22 07:47 01/04/22 09:05 Oxygen Flow Rate (L/min) 99 Oxygen Delivery Method Room Air Weight: 88.3 kg Body Mass Index (BMI) 29.9 Intake & Output: Intake and Output for Last 24 Hours 01/02/22 01/03/22 01/04/22 23:59 23:59 23:59 Intake Total 50 / 50 3283.75 / 3283.75 947.50 / 947.50 Output Total 450 / 450 300 / 300 1225 / 1225 Balance -400 / -400 2983.75 / 2983.75 -277.50 / -277.50 Medical Nutrition Assessment Dietitian: Malnutrition Criteria Met Start: 01/02/22 18:06 Freq: Status: Active Protocol: Document 01/02/22 18:06 RMA (Rec: 01/02/22 18:06 RMA [id number]) Nutrition Malnutrition Evidence of Malnutrition Exists Yes Malnutrition (severe): Chronic Evidenced By Suboptimal Energy Intake ( Severe),Weight Loss (Severe) Clinical Problem Chronic Disease or Condition Related Malnutrition Etiology Severe protein-calorie malnutrition in the context of chronic disease/debility/ weakness related to inadequate oral intake Signs/Symptoms as evidenced by 13% weight loss x past 6-8 months and PO meeting less than 50% estimated nutrition needs x 6 months Status Active Problem Recommendation Dietitian Recommendations/Changes Will liberalize diet to regular/no added salt. Will add 120 ml ensure enlive 4 times per day w/ medpass. Will adjust ONS as needed once intake established with meals . Lab / Micro Data Result Diagrams: 01/03/22 05:10 01/03/22 05:10 Rhythm Strip Rhythm Strip: Sinus Rhythm Rate: 88 Ectopy: None Physical Exam Const alert and no apparent distress General Appearance: cooperative, well kempt and well developed Orientation / Consciousness: awake, oriented to person, oriented to place and oriented to time HEENT normocephalic, head/scalp atraumatic and moist oral mucous membranes Head and Scalp: normocephalic Eyes PERRL, EOMs intact bilaterally and conjunctivae normal Neck nuchal rigidity, supple, no JVD, thyroid normal and no carotid bruits General: trachea midline Resp normal respiratory effort, no retractions, no use of accessory muscles and clear to auscultation bilaterally Auscultation: Negative for rales, rhonchi or wheezes Cardio regular rate, regular rhythm, S1 normal heart sound, S2 normal heart sound, no murmurs, no rub and no gallops GI normal to inspection, nondistended, normoactive bowel sounds, soft to palpation, non-tender and non-distended Extremity no clubbing, cyanosis or edema Skin no rashes or lesions noted General Skin Exam: no breakdown Neuro CN's II-XII intact bilaterally, no focal motor deficits and no sensory deficits noted Neuro Narrative: Patient exhibits cognitive impairment-he does answer simple questions appropriately however Sensorium / Orientation: awake and alert Speech: speech normal Psych Psych Narrative: Patient exhibits cognitive impairment, he does answer simple questions appropriately Assessment & Plan Assessment/Plan (1) Falls: PLAN: 1. Acute on chronic debility-PT and OT will continue to see the patient, according to health social work professor, family would prefer the patient not to be placed in a nursing facility, he lives nearby family members and there are cameras in his residence-unfortunately this may not be enough to ensure the patient's safety. Patient's family will have to keep closer tabs on the patient when he returns home #2 elevated CPK-I do not believe the patient has rhabdomyolysis at this point, I have decided to discontinue the patient's fluids #3 chronic dementia, type unknown-complicates care and recovery #4 coronary artery disease-stable at this time, patient is continue on his present medications including atorvastatin and low-dose aspirin #5 essential hypertension-patient will continue on his present medications including amlodipine #6 hyperlipidemia-continue atorvastatin #7 history of COPD-patient is not currently on any inhalers, he is on room air, I will defer adding any aerosol treatments at this time. Charges/Coding Visit Charges Inpatient E&M: 91758 Subs Hosp L2
--- NOTE | 2022-01-04 11:14 | CASEMGMT ---
Addendum entered by Sera White 01/04/22 11:27: Received tc back from Libia, she will be in to observe how pt does with therapy. Original Note: Spoke with therapy, plan to see pt today at 1145. TC to pt dtr Libia to make aware, left message on vm at this time.
[2022-01-04] MEDS: Folic Acid 1 MG Tablet PO (11:18)
[2022-01-04] MEDS: Cyanocobalamin 500 MCG Tablet 1000 MCG PO (11:18)
--- NOTE | 2022-01-04 13:13 | CASEMGMT ---
Addendum entered by Sera White 01/04/22 14:22: Received tc back from [facility], able to accept pt for services. Notified pt/dtr. Original Note: CALIN TORREZ made aware from PT that pt dtr would only be interested in [facility] for SNF, they do not accept insurance. CALIN TORREZ in to pt room, pt sitting up in chair. He reports his dtr just left. Made him aware that TCU does not accept insurance. He states he does not want to go to any other facility. Discussed HHC. He states he is open to this. He would like this RN LORE to call his dtr for her to choose the agency. TC to Libia, verbally provided a list of [facility] providers including quality and resource use data and consistent with the patient?s preferred geographic region, medical needs, and insurance network. She chose [facility] as first choice. TC to [facility], left message on intake's line with referral. Will await acceptance.
[2022-01-04 13:26] VITALS: BP 124/54; PULSE 58; RESP 12; TEMP 36.7; O2SAT 92
--- NOTE | 2022-01-04 14:30 | CASEMGMT ---
Social Work Note SW received update that pt and pt's daughter Libia would only be agreeable to pt going to [facility]. DEVANTE placed a call to Gaye with TCU, TCU doesn't accept pt's insurance. DEVANTE updated RN CM. DEVANTE placed a call to pt's daughter Libia and offered to provide her with additional list of SNF that accept pt's insurance and Libia denied. Libia states pt has been to other SNF before and has not had good experiences. DEVANTE informed Libia that [facility] (who does have a swing bed unit) came up on pt's insurance website. Libia again denied wanting a list of additional SNF that take pt's insurance. Cecilia Downing SLAB POLISHER, DIMPLING MACHINE OPERATOR
--- NOTE | 2022-01-04 14:46 | DCINST_ITS ---
Discharge Instructions Diet Discharge Diet: - (Regular textures, easy to chew textures with meats cut bite- size, thin liquids) Activity Discharge Activity: Return to Normal Activity (Use walker) Weight Bearing Status: Full weight bearing (With walker) Follow Up Care Test Results: Test results from this visit will be discussed in further detail at your follow-up appointment, if applicable. Discharge Plan Admission Admit Date/Time: 01/02/22 15:18 Primary Reason for Your Visit: Debility, generalized weakness Attending Provider: Lon Avendano Primary Care Provider: Jasson England Instructions Additional Instructions / Restrictions: Follow-up with speech therapy as an outpatient, continue OT and PT Call Dr. England's office to find out the results of the iron studies drawn in the hospital Discharge Orders/Prescriptions Prescriptions: New cefdinir 300 mg capsule 300 mg PO BID Qty: 14 RF: 0 Continued spironolactone 25 mg tablet 25 mg PO DAILY Qty: 30 RF: 11 aspirin [Aspirin Low Dose] 81 mg Tablet,Delayed Release (Dr/Ec) 81 mg PO DAILY RF: 0 atorvastatin 10 mg tablet 10 mg PO DAILY RF: 0 folic acid 1 mg Tablet 1 mg PO DAILY@1200 RF: 0 carbidopa-levodopa 25-100 mg Tablet 0.5 tab PO TID RF: 0 cyanocobalamin (vitamin B-12) 1,000 mcg Capsule 1,000 mcg PO DAILY@1200 RF: 0 pantoprazole 40 mg tablet,delayed release (DR/EC) 40 mg PO DAILY PRN (Reason: GERD) RF: 0 albuterol sulfate [ProAir HFA] 90 mcg/actuation HFA aerosol inhaler 1 inh inhalation Q6H PRN (Reason: shortness of breath or wheezing) Qty: 6.7 RF: 0 clopidogrel [Plavix] 75 mg tablet 75 mg PO DAILY Qty: 90 RF: 3 amlodipine 5 mg tablet 5 mg PO DAILY Qty: 90 RF: 3 Discontinued potassium chloride 20 mEq tablet,ER particles/crystals 40 meq PO DAILY RF: 0 Referrals / Follow Up: Jasson England MD [Primary Care Provider] - Within 2 Weeks Disposition Disposition (needs filled in before D/C Order can be placed): Home Health Service
--- NOTE | 2022-01-04 15:08 | PCM.DC.SUM ---
Providers Date of Admission: 01/02/22 Date of Discharge: 01/04/22 Primary Care Physician: Dr. Jasson England MD Reason For Visit: FALL/RHABDOMYOLYSIS Diagnosis Discharge Diagnosis (1) Falls: Status: Acute Code(s): W19.XXXA - Unspecified fall, initial encounter Plan: 1. Acute on chronic debility #2 elevated CPK-rhabdomyolysis was ruled out #3 chronic dementia-type unknown #4 pansinusitis #5 mild oropharyngeal dysphagia #6 severe protein and caloric malnutrition in the context of chronic disease as evidenced by 13% weight loss over the past 6 to 8 months and p.o. intake meeting less than 50% of estimated nutritional needs for 6 months-patient's diet was liberalized and 120 cc of Ensure Enlive 4 times a day with med Pass was given to the patient #7 essential hypertension #8 hyperlipidemia #9 chronic anemia-type unknown #10 coronary artery disease #11 COPD by history Medications at Discharge Home Medications aspirin [Aspirin Low Dose] 81 mg PO DAILY 05/26/21 atorvastatin 10 mg PO DAILY 05/26/21 clopidogrel 75 mg tablet 75 mg PO DAILY #90 tab 07/20/21 amlodipine 5 mg tablet 5 mg PO DAILY #90 tab 09/12/21 carbidopa-levodopa 0.5 tab PO TID 10/25/21 cyanocobalamin (vitamin B-12) 1,000 mcg PO DAILY@1200 10/25/21 folic acid 1 mg PO DAILY@1200 10/25/21 pantoprazole 40 mg PO DAILY PRN 10/25/21 albuterol sulfate [ProAir HFA] 1 inh INHALATION Q6H PRN #6.7 g 10/28/21 spironolactone 25 mg tablet 25 mg PO DAILY #30 tab 11/08/21 cefdinir 300 mg PO BID #14 cap 01/04/22 Hospital Course Operations None Procedures None Summary of Care Provided Minutes Spent on Discharge: 32 Hospital Course: This 76-year-old white male was evaluated in the emergency room at [facility] after being brought in after he sustained a fall at home, and imaging studies did not reveal any fracture or dislocation, CT of the brain was unremarkable for acute pathology. There was evidence of pansinusitis on the CT scan. Lab was remarkable for an elevated CPK-this examiner did not feel the patient had rhabdomyolysis although this was mentioned on the admitting diagnosis. Patient CBC was remarkable for a hemoglobin of 9.8. Patient was admitted to [place] [address], he was placed on IV antibiotics for pansinusitis, he was seen by PT and OT as well as speech therapy. Speech therapy performed a modified barium swallow which revealed mild oropharyngeal dysphagia, patient's diet was modified. Patient was initially given IV fluids. On 01/04/2022, patient was seen and examined: On examination he appeared alert and in no distress, there was some mild to moderate cognitive impairment noted. Vital signs as documented. Skin warm and dry and without overt rashes. Neck without JVD, neck was supple, trachea midline, thyroid was normal. Lungs clear bilaterally, normal air movement was noted. Heart exam notable for regular rhythm, normal sounds and absence of murmurs, rubs or gallops. Abdomen unremarkable and without evidence of organomegaly, masses, or abdominal aortic enlargement. Bowel sounds are present, abdomen is not distended. Extremities nonedematous, no cyanosis was noted, no clubbing was noted. Neuro: Cranial nerves II through XII are grossly intact, no focal motor deficits were noted, sensation to light touch and pinprick intact, motor exam 5/5 throughout. Psych: Patient is alert with evidence of mild to moderate cognitive impairment, he is able to answer simple questions appropriately. Patient was felt to be stable for discharge home on 01/04/2022, iron studies and a B12 level was drawn prior to his discharge home, I made the daughter aware that she needs to check with the patient's PCP as an outpatient to check on these results. Patient was sent out for home nursing care including PT, OT, and speech therapy. Medical Records Data Medical Nutrition Assessment Dietitian: Malnutrition Criteria Met Start: 01/02/22 18:06 Freq: Status: Active Protocol: Document 01/02/22 18:06 RMA (Rec: 01/02/22 18:06 RMA [id number]) Nutrition Malnutrition Evidence of Malnutrition Exists Yes Malnutrition (severe): Chronic Evidenced By Suboptimal Energy Intake ( Severe),Weight Loss (Severe) Clinical Problem Chronic Disease or Condition Related Malnutrition Etiology Severe protein-calorie malnutrition in the context of chronic disease/debility/ weakness related to inadequate oral intake Signs/Symptoms as evidenced by 13% weight loss x past 6-8 months and PO meeting less than 50% estimated nutrition needs x 6 months Status Active Problem Recommendation Dietitian Recommendations/Changes Will liberalize diet to regular/no added salt. Will add 120 ml ensure enlive 4 times per day w/ medpass. Will adjust ONS as needed once intake established with meals . Weight / BMI Weight Weight: 88.3 kg Body Mass Index (BMI) 29.9 ABG / Lab / Microbiology Data Result Diagrams: 01/03/22 05:10 01/03/22 05:10 D/C Instructions Discharge Diet: - (Regular textures, easy to chew textures with meats cut bite-size, thin liquids) Weight Bearing Status: Full weight bearing (With walker) Meaningful Use Info Meaningful Use Diagnoses (Choose all that apply): None applicable Discharge Plan Admission Admit Date/Time: 01/02/22 15:18 Primary Reason for Your Visit: Debility, generalized weakness Attending Provider: Lon Avendano Primary Care Provider: Jasson England Instructions Additional Instructions / Restrictions: Follow-up with speech therapy as an outpatient, continue OT and PT Call Dr. England's office to find out the results of the iron studies drawn in the hospital Discharge Orders/Prescriptions Prescriptions: New cefdinir 300 mg capsule 300 mg PO BID Qty: 14 RF: 0 Continued spironolactone 25 mg tablet 25 mg PO DAILY Qty: 30 RF: 11 aspirin [Aspirin Low Dose] 81 mg Tablet,Delayed Release (Dr/Ec) 81 mg PO DAILY RF: 0 atorvastatin 10 mg tablet 10 mg PO DAILY RF: 0 folic acid 1 mg Tablet 1 mg PO DAILY@1200 RF: 0 carbidopa-levodopa 25-100 mg Tablet 0.5 tab PO TID RF: 0 cyanocobalamin (vitamin B-12) 1,000 mcg Capsule 1,000 mcg PO DAILY@1200 RF: 0 pantoprazole 40 mg tablet,delayed release (DR/EC) 40 mg PO DAILY PRN (Reason: GERD) RF: 0 albuterol sulfate [ProAir HFA] 90 mcg/actuation HFA aerosol inhaler 1 inh inhalation Q6H PRN (Reason: shortness of breath or wheezing) Qty: 6.7 RF: 0 clopidogrel [Plavix] 75 mg tablet 75 mg PO DAILY Qty: 90 RF: 3 amlodipine 5 mg tablet 5 mg PO DAILY Qty: 90 RF: 3 Discontinued potassium chloride 20 mEq tablet,ER particles/crystals 40 meq PO DAILY RF: 0 Referrals / Follow Up: Jasson England MD [Primary Care Provider] - 01/13/22 2:35 pm Disposition Disposition (needs filled in before D/C Order can be placed): Home Health Service Charges/Coding Visit Charges Inpatient E&M: [id number] Disch Hosp
[2022-01-04 16:14] LABS: Ferritin 219 ng/mL (26-388); Iron 28 ug/dL (65-175); Iron Binding Capacity,Total 202 ug/dL (250-450); PERCENT IRON SATURATION 13.9 % (15.0-55.0); Vitamin B12 1397 pg/mL (211-911)
[2022-01-04 16:45] VITALS: BP 164/67; PULSE 66; RESP 18; TEMP 36.7; O2SAT 94
== END 2022-01-04 17:00 | disposition home health service (06) | DRG 947 ==
LOC: ED 14:47 → MS3 15:34
PROVIDERS: Admitting Provider Internal Medicine; Emergency Provider Emergency Medicine; PCP Family Medicine; Visit Provider Internal Medicine
DX: R53.81 Other malaise (principal); E43 Unspecified severe protein-calorie malnutrition; G93.41 Metabolic encephalopathy; F02.80 Dementia in other diseases classified elsewhere, unspecified severity, without behavioral disturbance, psychotic disturbance, mood disturbance, and anxiety; E11.9 Type 2 diabetes mellitus without complications; E78.5 Hyperlipidemia, unspecified; D50.9 Iron deficiency anemia, unspecified; G20 Parkinson's disease; G31.83 Neurocognitive disorder with Lewy bodies; I11.0 Hypertensive heart disease with heart failure; I50.9 Heart failure, unspecified; I48.91 Unspecified atrial fibrillation; J44.9 Chronic obstructive pulmonary disease, unspecified; J01.40 Acute pansinusitis, unspecified; I25.10 Atherosclerotic heart disease of native coronary artery without angina pectoris; K21.9 Gastro-esophageal reflux disease without esophagitis; H10.32 Unspecified acute conjunctivitis, left eye; S00.81XA Abrasion of other part of head, initial encounter; W18.30XA Fall on same level, unspecified, initial encounter; H66.92 Otitis media, unspecified, left ear; H72.90 Unspecified perforation of tympanic membrane, unspecified ear; Z99.81 Dependence on supplemental oxygen; R13.12 Dysphagia, oropharyngeal phase; Z68.29 Body mass index [BMI] 29.0-29.9, adult; Z79.82 Long term (current) use of aspirin; Z79.02 Long term (current) use of antithrombotics/antiplatelets; Z79.899 Other long term (current) drug therapy; Z87.891 Personal history of nicotine dependence; Y93.9 Activity, unspecified; Y99.9 Unspecified external cause status; Y92.89 Other specified places as the place of occurrence of the external cause; Z66 Do not resuscitate
CPT/HCPCS: 36415; 51702; 70450; 71045; 72125; 74230; 80053; 81001; 82550; 82607; 82728; 83540; 83550; 83605; 83735; 84100; 85025; 92610; 92611; 93005; 94762; 97162; 97166; 97535; 99251; 99285; J7030; J7050; A4216; G0463; J0696

== ENCOUNTER 2022-01-05 15:03 | Inpatient (IN) | payer MEDICARE, SELFPAY ==
[2022-01-05 15:04] VITALS: BP 151/73; PULSE 70; RESP 16; TEMP 36.6; O2SAT 99; BMI 26.6
--- NOTE | 2022-01-05 15:26 | CT_ITS ---
STUDY: CT BRAIN WITHOUT CONTRAST REASON FOR EXAM: Male, 76 years old. Fall, confusion RADIATION DOSAGE (If Supplied By Facility): CTDIvol = ( 44.99 ) mGy, DLP = ( 1592.22 ) mGycm TECHNIQUE: Transaxial CT imaging of the brain was performed without administration of intravenous contrast material. Individualized dose optimization techniques were used for this CT. COMPARISON: No relevant priors. FINDINGS: Normal soft tissue structures. Normal calvarium. There is moderate cerebral atrophy with widening of the extra-axial spaces and ventricular dilatation. There are areas of decreased attenuation within the white matter tracts of the supratentorial brain, consistent with microvascular disease changes. Normal basal ganglia and thalami. Normal brainstem. Normal cerebellum. There is no intracranial hemorrhage. There are no findings of an acute ischemic infarction. There is mucoperiosteal inflammatory disease of the paranasal sinuses consistent with moderate chronic sinusitis. CT/Brain/Head without Contrast IMPRESSION: Chronic involutional changes of the brain. No acute hemorrhage Moderate paranasal sinusitis Electronically Signed: Luis Miguel Pepe MD at 16:16 EDT ,
--- NOTE | 2022-01-05 15:27 | EKG12_ITS ---
Test Reason : FALL Blood Pressure : / mmHG Vent. Rate : 068 BPM Atrial Rate : 068 BPM P-R Int : 316 ms QRS Dur : 080 ms QT Int : 426 ms P-R-T Axes : 106 028 063 degrees QTc Int : 452 ms Sinus rhythm with 1st degree A-V block Otherwise normal ECG Confirmed by PRITI DUMONT, RASHEED ([id number]), editor sound ERIKA HILTON ([id number]) on 01/11/2022 10:50:37 AM Referred By: SILVIA Confirmed By:RASHEED MARCOS MD
--- NOTE | 2022-01-05 15:28 | EX.ED.DYSGE1 ---
HPI History of Present Illness Chief Complaint: Confusion Detail of Chief Complaint: Confusion and hallucinations that started today Informant: patient and family Narrative Narrative: Patient presents to the emergency department complaint of increased confusion and hallucinations that were noted today. Patient apparently had a fall this morning and when physical therapy came in today they noted that he was hallucinating that there was a little girl in the house. Patient states that he started seeing this little girl and her brother and they started coming around 2 days ago. Patient does not think he hurt himself when he fell this morning. Its unclear exactly how the fall happened. Patient denies any chest pain or head pain or neck pain. He denies any shortness of breath. He denies recent illness. Patient was admitted to the hospital recently after a fall and due to rhabdomyolysis. Patient was just discharged from the hospital yesterday. Patient has had prior episodes of hallucinations and apparently required a heart stent at that time. Prior similar symptoms: Yes PFSH PFSH Medical History Acute respiratory failure with hypoxia Altered mental status Anemia Anemia Anxiety Atherosclerotic heart disease of [place] coronary artery without angina pectoris Atrial fibrillation Back pain Chest pain CHF (congestive heart failure) Congestive heart failure (CHF) COPD exacerbation Coronary artery disease Degenerative disc disease, lumbar Degenerative disk disease Delirium Diabetes Former smoker GERD (gastroesophageal reflux disease) Hallucinations HLD (hyperlipidemia) Hypertension Hypertension Hypertensive urgency Hypoxia Lower extremity edema Macrocytic anemia On home oxygen therapy Orthostatic hypotension Parkinson's disease Presence of stent in coronary artery (~05/12/21) Short-term memory loss Syncope Vertigo Home Medications aspirin [Aspirin Low Dose] 81 mg PO DAILY 05/26/21 [History Last Taken 01/01/22] atorvastatin 10 mg PO DAILY 05/26/21 [History Last Taken 01/01/22] clopidogrel 75 mg tablet 75 mg PO DAILY #90 tab 07/20/21 [Rx Last Taken 01/01/22] amlodipine 5 mg tablet 5 mg PO DAILY #90 tab 09/12/21 [Rx Last Taken 01/01/22] carbidopa-levodopa 0.5 tab PO TID 10/25/21 [History Last Taken 01/01/22] cyanocobalamin (vitamin B-12) 1,000 mcg PO DAILY@1200 10/25/21 [History Last Taken 01/01/22] folic acid 1 mg PO DAILY@1200 10/25/21 [History Last Taken 01/01/22] pantoprazole 40 mg PO DAILY PRN 10/25/21 [History Last Taken Unknown] albuterol sulfate [ProAir HFA] 1 inh INHALATION Q6H PRN #6.7 g 10/28/21 [Rx Last Taken Unknown] spironolactone 25 mg tablet 25 mg PO DAILY #30 tab 11/08/21 [Rx Last Taken 01/01/22] cefdinir 300 mg PO BID #14 cap 01/04/22 [Rx Last Taken Unknown] Allergy/AdvReac Type Severity Reaction Status Date / Time No Known Allergies Allergy Verified 01/05/22 15:06 Surgical History History of coronary artery stent placement Presence of coronary angioplasty implant and graft (~05/12/21) Social History household members: spouse Smoking Status: Former smoker alcohol intake: never substance use type: does not use ROS ROS ED Constitutional Constitutional ED: Reports systems reviewed and no addt'l complaints, except as documented; Denies body ache(s), change in weight or chills Eyes Eyes: Denies acute decrease in peripheral vision, change in vision, double vision or loss of vision ENT ENT ED: Reports none; Denies ear pain, lip swelling, loss taste/smell, neck pain, otalgia or sore throat Cardiovascular Cardiovascular: Reports none; Denies abdominal pain, chest pain with activity, leg edema, lightheadedness, palpitations, rapid heart rate or syncope Respiratory/Chest Respiratory/Chest: Reports none; Denies change in mental status, dry cough, dyspnea, hemoptysis, shortness of breath at rest or shortness of breath with exertion Gastrointestinal Gastrointestinal: Reports none; Denies abdominal pain, change in stool character, diarrhea, hematemesis, hematochezia, melena, rectal bleeding or vomiting Genitourinary Genitourinary ED: Reports none; Denies abdominal discomfort, anuria, dysuria, genital pain or polyuria Musculoskeletal Musculoskeletal: Reports none; Denies arthralgias, back pain, difficulty walking, extremity pain, muscle weakness or myalgias Integumentary Reports none; Denies abscess or rash Neurologic Neurologic: Reports none; Denies abnormal gait, confusion, focal weakness, frequent falls, headache(s), loss of vision, numbness, paresthesias, radicular pain, vertigo or weakness Psychiatric Psychiatric: Reports systems reviewed and no addt'l complaints, except as documented, none and other Details: Visual hallucinations ; Denies behavioral changes, confusion, difficulty concentrating, hallucinations, suicidal ideation, tactile hallucinations or visual hallucinations Endocrine Endocrinology: Denies none, cold intolerance, excessive sweating, fatigue or heat intolerance Hematologic/Lymphatic Hematologic/Lymphatic: Reports none; Denies anemia, easy bleeding or easy bruising Allergic/Immunologic Allergic/Immunologic ED: Denies as per HPI, none, lip swelling, mouth swelling, throat swelling, tongue swelling or hives EXAM Physical Exam Const Vital Signs: 01/05/22 15:04 01/05/22 17:05 Temperature 97.8 F Temperature Source Temporal Pulse Rate 70 73 Respiratory Rate 16 12 Blood Pressure 151/73 H 198/78 H Blood Pressure Mean 99 118 Pulse Ox 99 Oxygen Delivery Method Room Air Positive well nourished and well developed General Appearance ED: well developed and NAD HEENT Reports TM's clear and moist mucous membranes normocephalic and atraumatic; Negative for trauma or tenderness Tympanic Membrane ED: Yes TM's clear Eyes PERRL and EOMs intact bilaterally General Eye ED: Negative for pale conjunctiva or scleral icterus Neck no lymphadenopathy, supple and no JVD General: Negative for tenderness Chest Wall inspection of chest normal and palpation of chest normal Chest: Negative for tenderness Resp normal respiratory effort and clear to auscultation bilaterally Effort and Inspection: Negative for respiratory distress or pain with movement Auscultation: Negative for rhonchi, wheezes or diminished lung sounds Cardio regular rate, regular rhythm, S1 normal heart sound, S2 normal heart sound and no murmurs Peripheral Pulses: pulses 2+ throughout GI normal to inspection, nondistended, normoactive bowel sounds, soft to palpation, non-tender, non-distended and no masses Back/Spine no CVA tenderness and no thoracic nor lumbar tenderness Extremity normal to inspection General Extremety ED: Negative for edema General Extremity: Negative for edema Neuro oriented x3, CN's II-XII intact bilaterally, no sensory deficits noted and gait normal Sensorium / Orientation: awake, alert, oriented to person, oriented to place and oriented to time Motor Exam: strength 5/5 throughout and strength abnormal Psych mental status grossly normal Skin no rashes or lesions noted and no wounds MDM MDM MDM Narrative Medical decision making narrative: IV line established. Patient placed on a front desk monitor. Lab work-up unremarkable. CT of the brain was unremarkable. Urinalysis was unremarkable. At this point I did have patient evaluated by social science instructor and we discussed possible placement to [facility] versus assisted living facility or rehab facility. Caregiver and patient would like to pursue admission to a rehab facility or assisted living facility. Case will be discussed with hospitalist evaluate patient for admission. Lab Data Attestation: I reviewed the patient's lab results. Labs: Laboratory Results - last 24 hr 01/05/22 01/05/22 01/05/22 15:52 15:52 16:30 WBC 7.4 RBC 2.92 L Hgb 9.0 L Hct 27.4 L MCV 93.8 MCH 30.8 MCHC 32.8 RDW Std Deviation 46.8 H RDW Coeff of Sophie 13.6 Plt Count 220 MPV 9.1 Immature Gran % (Auto) 0.400 Neut % (Auto) 68.4 Lymph % (Auto) 15.2 L [place] % (Auto) 8.5 Eos % (Auto) 7.0 H Baso % (Auto) 0.5 Absolute Neuts (auto) 5.1 Absolute Lymphs (auto) 1.12 Nucleated RBC % 0 Sodium 137 Potassium 3.9 Chloride 107 Carbon Dioxide 26.0 Anion Gap 4 L BUN 25 H Creatinine 0.97 Estim Creat Clear Calc 63.78 Est GFR (MDRD) Af Amer 97 Est GFR (MDRD) Non-Af 80 BUN/Creatinine Ratio 25.8 H Glucose 99 Calcium 8.6 Troponin I High Sens 10 Urine Color Yellow Urine Clarity Clear Urine pH 6.0 Ur Specific [place] 1.020 Urine Protein 15 H Urine Glucose (UA) Normal Urine Ketones Negative Urine Occult Blood 50 H Urine Nitrite Negative Urine Bilirubin Negative Urine Urobilinogen Normal Ur Leukocyte Esterase Negative Urine RBC 0-5 SEEN Urine WBC 0-5 SEEN Ur Squamous Epith Cells 0 SEEN Urine Bacteria 1+ Urine Mucus 0 SEEN Radiography Chest X-Ray - ED: 1 View Diagnostic Testing: Clinical Impression(s) from Imaging Studies Brain CT 01/05/22 15:26 IMPRESSION: Chronic involutional changes of the brain. No acute hemorrhage Moderate paranasal sinusitis Electronically Signed: Luis Miguel Pepe MD at 16:16 EDT , Chest X-Ray 01/05/22 16:00 IMPRESSION: No interval change Electronically Signed: Luis Miguel Pepe MD at 16:18 EDT , 1 view chest x-ray obtained interpreted by myself no acute disease process. EKG Initial EKG: Attestation: I personally reviewed and interpreted this EKG as follows: Comments: Sinus rhythm with a ventricular rate of 68 bpm with a first-degree AV block otherwise nothing acute Discharge Plan Triage Chief Complaint: Confusion ED Provider: Aliza Paulson Dx/Rx/DC Orders Clinical Impression: Falls frequently, Hallucination, visual Prescriptions: No Action spironolactone 25 mg tablet 25 mg PO DAILY Qty: 30 RF: 11 aspirin [Aspirin Low Dose] 81 mg Tablet,Delayed Release (Dr/Ec) 81 mg PO DAILY RF: 0 atorvastatin 10 mg tablet 10 mg PO DAILY RF: 0 folic acid 1 mg Tablet 1 mg PO DAILY@1200 RF: 0 carbidopa-levodopa 25-100 mg Tablet 0.5 tab PO TID RF: 0 cyanocobalamin (vitamin B-12) 1,000 mcg Capsule 1,000 mcg PO DAILY@1200 RF: 0 pantoprazole 40 mg tablet,delayed release (DR/EC) 40 mg PO DAILY PRN (Reason: GERD) RF: 0 albuterol sulfate [ProAir HFA] 90 mcg/actuation HFA aerosol inhaler 1 inh inhalation Q6H PRN (Reason: shortness of breath or wheezing) Qty: 6.7 RF: 0 cefdinir 300 mg capsule 300 mg PO BID Qty: 14 RF: 0 clopidogrel [Plavix] 75 mg tablet 75 mg PO DAILY Qty: 90 RF: 3 amlodipine 5 mg tablet 5 mg PO DAILY Qty: 90 RF: 3 Primary Care Provider: Jasson England Referrals: Tomás,Jasson, MD [Primary Care Provider] - Disposition Disposition: Acute Care Hospital [facility]
--- NOTE | 2022-01-05 16:00 | RAD_ITS ---
STUDY: X-RAY CHEST REASON FOR EXAM: Male, 76 years old. Chest pain after a fall TECHNIQUE: 2 AP portable views COMPARISON: 01/02/2022 FINDINGS: EKG leads overlie the chest Lungs are mildly hyperexpanded without a superimposed acute pulmonary process. There is no demonstrated pleural abnormality. Normal size heart. Normal mediastinum and vandana. Normal visualized pulmonary arteries. There is atherosclerotic calcification of the aortic arch with tortuosity. There are diffuse degenerative changes of the visualized thoracic spine. There is degenerative osteoarthritis of the bilateral shoulders. There is no demonstrated abnormality of the visualized soft tissue structures of the upper abdomen. RAD/Chest 1 View (Portable) IMPRESSION: No interval change Electronically Signed: Luis Miguel Pepe MD at 16:18 EDT ,
[2022-01-05 16:04] LABS: Absolute Lymphocyte Count 1.12 X10^3/uL (0.83-4.51); Absolute Neutrophil Count 5.1 X10^3/uL (2.0-7.7); Basophil# 0.04 X10^3/uL; Basophil% 0.5 % (0-1); Eosinophil# 0.52 X10^3/uL; Hematocrit 27.4 % (40-54); Lymphocyte # 1.12 X10^3/ul (0.83-4.51); Lymphocyte % 15.2 % (19-41); Mean Corp Hgb Conc 32.8 g/dL (32-36); Mean Corpuscular Hgb 30.8 pg (27.0-32.0); Mean Corpuscular Volume 93.8 fL (80-94); Mean Platelet Vol. 9.1 fl (6.2-12.0); Monocyte# 0.63 X10^3/uL; Monocyte% 8.5 % (0-10); NRBC Flagged by Analyzer 0 % (0-5); Neutrophil # 5.05 X10^3/uL (2.7-7.7); Neutrophil % 68.4 % (47-70); Platelet Count 220 K/mm3 (150-450); RBC Distribution Width CV 13.6 % (11.6-14.6); RBC Distribution Width SD 46.8 fl (35.1-43.9); Red Blood Count 2.92 M/mm3 (4.6-6.2); White Blood Count 7.4 K/mm3 (4.4-11.0)
[2022-01-05 16:21] LABS: Anion Gap 4 (5-15); BUN 25 mg/dL (7-18); BUN/Creat Ratio 25.8 RATIO (10-20); Calcium,Total 8.6 mg/dL (8.5-10.1); Chloride 107 mmol/L (98-107); Creatinine, Serum 0.97 mg/dL (0.70-1.30); EST Glomerular Filtration Rate 80 mL/min (>60); Est Glom Filt Rate - Afr Amer 97 mL/min (>60); Estimated Creatinine Clearance 63.78 ml/min; Glucose 99 mg/dL (74-106); Potassium 3.9 mmol/L (3.5-5.1); Sodium Level 137 mmol/L (136-145); Troponin-I HS 10 pg/mL (3.0-78.0)
[2022-01-05] MEDS: 0.9% Normal Saline 1,000 ML 150 ML IV ×2 (16:25→20:27)
[2022-01-05 16:39] LABS: Mucous, Urine 0 SEEN /hpf (<or=2+); Squamous Epithelial Cells - UA 0 SEEN /hpf (0-5)
[2022-01-05 16:45] LABS: Color, Urine Yellow (Yellow); Glucose, Dipstick Normal (Normal); Ketone-Dipstick Negative (Negative); Leukocyte Esterase-Dipstick Negative /ul (Negative); Nitrite-Dipstick Negative (Negative); Occult Blood-Urine 50 /ul (Negative); Protein-Dipstick 15 mg/dl (Negative); Urine Bilirubin Dipstick Negative (Negative); Urine Clarity Clear (Clear); Urine Urobilinogen Normal (Normal)
[2022-01-05 16:53] LABS: Bacteria 1+ /hpf (None Seen); Red Blood Cells-Urine 0-5 SEEN /hpf (0-5); White Blood Cells 0-5 SEEN /hpf (0-5)
[2022-01-05 17:05] VITALS: BP 198/78; PULSE 73; RESP 12
--- NOTE | 2022-01-05 17:32 | HP.PCM.HOS_ITS ---
HPI - General General Date of Admission: 01/05/22 HPI Narrative KERRY VALDES, is a 76 M with an extensive PMH as outlined who presents via the ED with a complaint of confusion and hallucinations which started on the day of admission. He also fell at home on the day of presentation. PT/OT went to evaluate patient at home and he was noted to be hallucinating, thinking there was a little girl in her house, and he thought he had been seeing her and her brother. He has had a history of such hallucinations in the past when he was in the hospital. He was recently discharged from the hospital one day ago after he was admitted and managed for fall and rhabdomyolysis. He had no fever, chills, nausea, vomiting or diarrhea. Review of systems is otherwise negative. Vitals in the ED were BP of 198/78, [place] of 73, RR of 12 and he was saturating at 99% on room air. CBC showed Hb of 9 with wbc of 7.4, platelets of 220. BMp was unremarkable and urinalysis showed no evidence of infection. CXR showed no acute cardiopulmonary process, and CT of the brain showed chronic involutional changes of the brain with moderate paranasal sinusitis. He is being admitted to be managed for debility and visual hallucinations. [facility] Medical History Acute respiratory failure with hypoxia Altered mental status Anemia Anemia Anxiety Atherosclerotic heart disease of [place] coronary artery without angina pectoris Atrial fibrillation Back pain Chest pain CHF (congestive heart failure) Congestive heart failure (CHF) COPD exacerbation Coronary artery disease Degenerative disc disease, lumbar Degenerative disk disease Delirium Diabetes Former smoker GERD (gastroesophageal reflux disease) Hallucinations HLD (hyperlipidemia) Hypertension Hypertension Hypertensive urgency Hypoxia Lower extremity edema Macrocytic anemia On home oxygen therapy Orthostatic hypotension Parkinson's disease Presence of stent in coronary artery (~05/12/21) Short-term memory loss Syncope Vertigo Home Medications aspirin [Aspirin Low Dose] 81 mg PO DAILY 05/26/21 [History Last Taken 01/01/22] atorvastatin 10 mg PO DAILY 05/26/21 [History Last Taken 01/01/22] clopidogrel 75 mg tablet 75 mg PO DAILY #90 tab 07/20/21 [Rx Last Taken 01/01/22] amlodipine 5 mg tablet 5 mg PO DAILY #90 tab 09/12/21 [Rx Last Taken 01/01/22] carbidopa-levodopa 0.5 tab PO TID 10/25/21 [History Last Taken 01/01/22] cyanocobalamin (vitamin B-12) 1,000 mcg PO DAILY@1200 10/25/21 [History Last Taken 01/01/22] folic acid 1 mg PO DAILY@1200 10/25/21 [History Last Taken 01/01/22] pantoprazole 40 mg PO DAILY PRN 10/25/21 [History Last Taken Unknown] albuterol sulfate [ProAir HFA] 1 inh INHALATION Q6H PRN #6.7 g 10/28/21 [Rx Last Taken Unknown] spironolactone 25 mg tablet 25 mg PO DAILY #30 tab 11/08/21 [Rx Last Taken 01/01/22] cefdinir 300 mg PO BID #14 cap 01/04/22 [Rx Last Taken Unknown] Allergy/AdvReac Type Severity Reaction Status Date / Time No Known Allergies Allergy Verified 01/05/22 15:06 Surgical History History of coronary artery stent placement Presence of coronary angioplasty implant and graft (~05/12/21) Social History household members: spouse Smoking Status: Former smoker alcohol intake: never substance use type: does not use ROS Constitutional Constitutional: Reports fatigue, malaise and weakness; Denies anorexia or chills Eyes Eyes: Denies change in vision ENT HEENT: Denies abnormal hearing, dysphagia or headache(s) Cardiovascular Cardiovascular: Denies chest pain, dyspnea on exertion, lightheadedness, orthopnea, palpitations, paroxysmal nocturnal dyspnea, rapid heart rate or syncope Respiratory/Chest Respiratory/Chest: Denies cough, dyspnea, shortness of breath at rest or shortness of breath with exertion Gastrointestinal Gastrointestinal: Denies abdominal pain, constipation, diarrhea, nausea or vomiting Genitourinary Genitourinary: Denies burning urination or dysuria Neurologic Neurologic: Denies confusion, dizziness, focal weakness or headache(s) Psychiatric Psychiatric: Denies anxiety Endocrine Endocrinology: Denies change in body appearance Hematologic/Lymphatic Hematologic/Lymphatic: Denies anemia Vital Signs Vital Signs Vital Signs: 01/05/22 15:04 01/05/22 17:05 Temperature 97.8 F Temperature Source Temporal Pulse Rate 70 73 Respiratory Rate 16 12 Blood Pressure 151/73 H 198/78 H Blood Pressure Mean 99 118 Pulse Ox 99 Oxygen Delivery Method Room Air Weight Weight: 180 lb Body Mass Index (BMI) 26.6 Physical Exam Const alert, oriented x3 and no apparent distress General Appearance: cooperative HEENT normocephalic, head/scalp atraumatic, hearing grossly normal bilaterally and moist oral mucous membranes Eyes PERRL, EOMs intact bilaterally and conjunctivae normal Neck no lymphadenopathy, supple and no JVD Resp normal respiratory effort, no retractions, no use of accessory muscles and clear to auscultation bilaterally Cardio regular rate, regular rhythm, S1 normal heart sound, S2 normal heart sound and no murmurs GI normal to inspection, nondistended, normoactive bowel sounds, soft to palpation, non-tender and non-distended Extremity normal to inspection, full ROM and no clubbing, cyanosis or edema Peripheral Pulses: Yes pulses 2+ throughout Skin no rashes or lesions noted Neuro CN's II-XII intact bilaterally and moves all extremities Sensorium / Orientation: awake and alert Psych affect normal Results Lab / Micro Data Result Diagrams: 01/06/22 05:14 01/06/22 05:14 Labs: Laboratory Results - last 24 hr 01/05/22 15:52: WBC 7.4, RBC 2.92 L, Hgb 9.0 L, Hct 27.4 L, MCV 93.8, MCH 30.8, MCHC 32.8, RDW Std Deviation 46.8 H, RDW Coeff of Sophie 13.6, Plt Count 220, MPV 9.1, Immature Gran % (Auto) 0.400, Neut % (Auto) 68.4, Lymph % (Auto) 15.2 L, [place] % (Auto) 8.5, Eos % (Auto) 7.0 H, Baso % (Auto) 0.5, Absolute Neuts (auto) 5.1, Absolute Lymphs (auto) 1.12, Nucleated RBC % 0 01/05/22 15:52: Sodium 137, Potassium 3.9, Chloride 107, Carbon Dioxide 26.0, Anion Gap 4 L, BUN 25 H, Creatinine 0.97, Estim Creat Clear Calc 63.78, Est GFR (MDRD) Af Amer 97, Est GFR (MDRD) Non-Af 80, BUN/Creatinine Ratio 25.8 H, Glucose 99, Calcium 8.6, Troponin I High Sens 10 01/05/22 16:30: Urine Color Yellow, Urine Clarity Clear, Urine pH 6.0, Ur Spec ific [place] 1.020, Urine Protein 15 H, Urine Glucose (UA) Normal, Urine Ketones Negative, Urine Occult Blood 50 H, Urine Nitrite Negative, Urine Bilirubin Negative, Urine Urobilinogen Normal, Ur Leukocyte Esterase Negative, Urine RBC 0-5 SEEN, Urine WBC 0-5 SEEN, Ur Squamous Epith Cells 0 SEEN, Urine Bacteria 1+, Urine Mucus 0 SEEN Radiology Impression Brain CT 01/05/22 15:26 IMPRESSION: Chronic involutional changes of the brain. No acute hemorrhage Moderate paranasal sinusitis Electronically Signed: Luis Miguel Pepe MD at 16:16 EDT , Chest X-Ray 01/05/22 16:00 IMPRESSION: No interval change Electronically Signed: Luis Miguel Pepe MD at 16:18 EDT , Assessment & Plan Assessment/Plan (1) Falls frequently: (2) Hallucination, visual: (3) Encephalopathy acute: PLAN: #Acute metabolic encephalopathy * no evidence of infection; has been hallucinating at home; this is likely due to his underlying dementia * was just dishcarged from the hospital yesterday * family now wants placement * PT/OT on board. Fall precautions * consult case management to help with placement * * #Debility due to frequent falls: as above #CAD; on statin adn aspirin as well as plavix #Hypertension: * poorly controlled. BP in the 200s systolic * hasnt taken his meds today * give PO clonidine 0.2mg x 1. * IV hydralazine prn * resume amlodipine and spironolactone. #Hyperlipidemia: on statin #history of COPD; not in exacerbation. stable #History of dementia * on levodopa carbidopa * DVT prophylaxis: SCDs Code status: DNRCCA no intubation * Patient and daughter counseled extensively about different types of CODE STATUS including full code, DNR CCA and DNR CCA. Patient elects to be DNRCCA no intubation. * Total [id number] time 17 minutes. Charges/Coding Visit Charges OBSV E&M: 17067 Initial observation care L3 Procedures Hospitalists Procedures: 11103 Advncd Care Plan 30 Min
[2022-01-05] MEDS: cloNIDine HCl 0.2 MG Tablet PO (18:16)
--- NOTE | 2022-01-05 18:31 | CM.ED ---
DEVANTE Psychiatric Assessment Reason for Consult: Mental Health Informant: Patient and Patient?s daughter, Libia Cooney Chief Complaint: SW met with patient and his daughter in the Emergency Department room. Patient said that he is in the hospital to ?take tests and to go over the medical records.? SW asked if people were concerned about patient and patient said ?yes.? SW asked why people are concerned and patient said, ?I have been falling a lot.? SW asked if patient is seeing things that may not be real and patient said, ?people say I do.? SW asked what patient sees and patient said, ?a little girl.? SW asked about the ?little girl ?and what she does, and patient said that she started coming to the house 3-4 days ago and plays with the dogs and cat. SW asked what the ?little girl? says, and patient said, ?not much.? Patient said that the little girl had been gone for ?awhile? and that she was ?grounded.? SW again asked what the girl says to him, and patient said ?nothing? but stated ?sometimes she brings her brother.? SW asked how they are with patient, and he said ?nice? and ?they are not tearing up things.? Patient?s daughter, Libia said that patient?s denied in July 2021. Libia said that patient?s current behavior may be related to patient?s ?s . Patient had talked about the ?little girl? in the fall after discharge from [facility] but then for 45-month patient voiced no contact with ?the little girl? until this week. Libia said that patient does not usually tell others about the ?little girl.? Libia said that patient was also ?grabbing at things that are not there.? Libia said that at times patient was doing ?good? which included driving, cleaning, cooking, and taking care of the cat. Libia said that she felt that patient?s pain level increased which affected his mental functioning and patient has voiced pain in his groin area. Libia said that patient had also been up ?all day and night.? Marital /Social History: Patient resides in an apartment by himself. He is a . Patient said that he is . Living Situation: Apartment Support/Resources: Libia voiced that patient has a lot of support which includes her, granddaughter, [id number] next door, grandchild, and son. History: Denied Education and Employment History: Patient reports he did not complete high school. The last grade he attended was the 8thg grade. 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 Mental Health Treatment: Patient?s daughter reports patient has never had any mental health treatment. Daughter said that when patient was at [facility] he was put on Seroquel and ?it made him nuts.? He has not had Seroquel since he left [facility] in August 2021. Triggers/Stressors: Patient?s daughter said that pain is a trigger for patient. Coping Skills: Unknown Abuse Issues: Denied Substance abuse Issues: Patient denied Risk to Self and Others: Suicidal: Thoughts: Denied Homicidal: Thoughts: Denied Violence: To Self: denied To Others: Denied Objects: Denied Orientation: x3 Memory: Patient reports he is , and he is . Memory appears poor Appearance/General Behavior: Wearing hospital gown Mood/Affect: euthymic mood with neutral affect. Communication Pattern: Patient would answer questions. Thought Process: appropriate. No evidence of AH/VH. General Intellectual Functioning: Average Judgment: Impaired Insight: Impaired Patient?s daughter was asked about her concern, and she stated she is concerned about patient?s safety and referenced concerning with patient falling. When meeting with DEVANTE DUMONT, patient, and patient?s daughter she expressed concern that patient fell this morning and if fell no one would know about him falling. DEVANTE discussed [facility] and patient?s daughter stated that patient would decompensate if he would go to [facility] away from his family in [place]. Patient agreed to placement at the [facility], as he was there in the past and stated they were kind and he? knows everyone.? DEVANTE called Leena at the [facility] and updated her regarding the referral. DEVANTE also provided family with list of SNF in [facility]. DEVANTE met with MD Naranjo. Patient voices seeing a ?little girl? however he is not meeting criteria for application for emergency hospital admission (pink slip). He voices no SI/HI. Patient is cooperative. Patient has history with ?seeing the little girl? during the recent year. Patient voices no fear or apprehensive toward the ?little girls? and it is someone of a comfort and box fabricator for him. Patient?s daughter declined voluntarily [facility] placement as she felt that patient would deteriorate if he was away from [place] and family. Plan: SNF for strengthening related to recent falls Mary ORO
[2022-01-05 18:34] VITALS: BP 154/76
[2022-01-05 18:47] VITALS: BP 195/144; PULSE 75; RESP 12; TEMP 36.8; O2SAT 97
[2022-01-05 19:23] VITALS: O2SAT 99
[2022-01-05 19:25] VITALS: BMI 29.1
[2022-01-05 19:41] VITALS: BP 184/74; PULSE 74; RESP 18; TEMP 37.1; O2SAT 99
--- NOTE | 2022-01-05 19:42 | NURSING ---
BP PROBABLY INACCURATE, PT TENSES UP & WILL NOT KEEP ARM STILL WHEN GETTING BP
[2022-01-05] MEDS: 0.9% Saline Lock 10 ML Syringe IV (20:27)
--- NOTE | 2022-01-05 22:03 | CM.ED ---
DEVANTE Note DEVANTE called Leena at [facility]. Advised patient wanted to go to [facility] as he was previously there in the past. DEVANTE faxed referral to [facility]. Referral to [facility] Mary ORO
[2022-01-05] MEDS: Atorvastatin Calcium 10 MG Tablet PO (22:09)
--- NOTE | 2022-01-05 23:54 | NURSING ---
PT INCONTINENT OF LARGE AMOUNT URINE. PT AGITATED WHEN STAFF ATTEMPT TO PROVIDE INCONTINENCE CARE. NEEDED 3 STAFF MEMBERS TO CHANGE PT - ONE STAFF TO HOLD ARMS PT WAS SWINGING ARMS AT STAFF, YELLING I FUCKING HATE YOU
[2022-01-06 02:22] VITALS: BP 183/48; PULSE 56; RESP 20; TEMP 36.9; O2SAT 96
[2022-01-06] MEDS: 0.9% Normal Saline 1,000 ML 150 ML IV (02:25)
[2022-01-06] MEDS: Carbidopa/Levodopa 25/100 Tablet PO ×3 (05:35→15:52)
[2022-01-06 05:54] LABS: Absolute Neutrophil Count 2.9 X10^3/uL (2.0-7.7); Basophil# 0.03 X10^3/uL; Basophil% 0.6 % (0-1); Eosinophils% 8.2 % (0-5); Hematocrit 24.5 % (40-54); Hemoglobin 8.1 g/dL (13.0-16.5); Lymphocyte % 20.6 % (19-41); Mean Corp Hgb Conc 33.1 g/dL (32-36); Mean Corpuscular Hgb 30.7 pg (27.0-32.0); Mean Corpuscular Volume 92.8 fL (80-94); Mean Platelet Vol. 9.3 fl (6.2-12.0); Monocyte# 0.47 X10^3/uL; Monocyte% 9.7 % (0-10); NRBC Flagged by Analyzer 0 % (0-5); Neutrophil # 2.94 X10^3/uL (2.7-7.7); Neutrophil % 60.5 % (47-70); Platelet Count 203 K/mm3 (150-450); RBC Distribution Width CV 13.6 % (11.6-14.6); Red Blood Count 2.64 M/mm3 (4.6-6.2); White Blood Count 4.9 K/mm3 (4.4-11.0)
[2022-01-06 06:27] LABS: Anion Gap 4 (5-15); BUN 17 mg/dL (7-18); BUN/Creat Ratio 26.4 RATIO (10-20); Chloride 114 mmol/L (98-107); Creatinine, Serum 0.64 mg/dL (0.70-1.30); EST Glomerular Filtration Rate 128 mL/min (>60); Est Glom Filt Rate - Afr Amer 154 mL/min (>60); Estimated Creatinine Clearance 59.85 ml/min; Glucose 94 mg/dL (74-106); Potassium 3.6 mmol/L (3.5-5.1); Sodium Level 142 mmol/L (136-145)
[2022-01-06 06:43] VITALS: O2SAT 96
[2022-01-06 08:20] VITALS: BP 114/44; PULSE 59; RESP 16; TEMP 36.7; O2SAT 95
--- NOTE | 2022-01-06 09:00 | CASEMGMT ---
Social Work Note SW placed a call to Leena at [facility] [place] regarding referral. Leena states she received referral and they will discuss referral in morning meeting today. Plan: SNF pending acceptance and pre-cert Cecilia Downing MSW, SUPERVISOR CRACK OFF
[2022-01-06] MEDS: Clopidogrel Bisulfate 75 MG Tablet PO (09:15)
[2022-01-06] MEDS: Aspirin E.C. 81 MG Tablet PO (09:15)
[2022-01-06] MEDS: amLODIPine 5 MG Tablet PO (09:15)
[2022-01-06] MEDS: Spironolactone 25 MG Tablet PO (09:16)
[2022-01-06] MEDS: Cyanocobalamin 500 MCG Tablet 1000 MCG PO (11:10)
[2022-01-06] MEDS: Folic Acid 1 MG Tablet PO (11:11)
--- NOTE | 2022-01-06 12:13 | PN.HOSP_ITS ---
Subjective Subjective Patient seen and examined. She had an uneventful night and has no complaints. Review of systems otherwise negative. Objective Data Objective Data Vital Signs: Vital Signs Temp Pulse Resp BP Pulse Ox 98.1 F 59 L 16 114/44 L 95 01/06/22 08:20 01/06/22 08:20 01/06/22 08:20 01/06/22 08:20 01/06/22 08:20 Oxygen Delivery Method Room Air Weight: 196 lb 13.965 oz Body Mass Index (BMI) 29.1 Intake & Output: Intake and Output for Last 24 Hours 01/04/22 01/05/22 01/06/22 23:59 23:59 23:59 Intake Total 635 / 635 1925 / 1925 Output Total 450 / 450 Balance 635 / 635 1475 / 1475 Lab / Micro Data Result Diagrams: 01/06/22 05:14 01/06/22 05:14 Labs: Laboratory Results - last 24 hr 01/05/22 15:52: WBC 7.4, RBC 2.92 L, Hgb 9.0 L, Hct 27.4 L, MCV 93.8, MCH 30.8, MCHC 32.8, RDW Std Deviation 46.8 H, RDW Coeff of Sophie 13.6, Plt Count 220, MPV 9.1, Immature Gran % (Auto) 0.400, Neut % (Auto) 68.4, Lymph % (Auto) 15.2 L, Renville % (Auto) 8.5, Eos % (Auto) 7.0 H, Baso % (Auto) 0.5, Absolute Neuts (auto) 5.1, Absolute Lymphs (auto) 1.12, Nucleated RBC % 0 01/05/22 15:52: Sodium 137, Potassium 3.9, Chloride 107, Carbon Dioxide 26.0, Anion Gap 4 L, BUN 25 H, Creatinine 0.97, Estim Creat Clear Calc 63.78, Est GFR (MDRD) Af Amer 97, Est GFR (MDRD) Non-Af 80, BUN/Creatinine Ratio 25.8 H, Glucose 99, Calcium 8.6, Troponin I High Sens 10 01/05/22 16:30: Urine Color Yellow, Urine Clarity Clear, Urine pH 6.0, Ur Specific [place] 1.020, Urine Protein 15 H, Urine Glucose (UA) Normal, Urine Ketones Negative, Urine Occult Blood 50 H, Urine Nitrite Negative, Urine Bilirubin Negative, Urine Urobilinogen Normal, Ur Leukocyte Esterase Negative, Urine RBC 0-5 SEEN, Urine WBC 0-5 SEEN, Ur Squamous Epith Cells 0 SEEN, Urine Bacteria 1+, Urine Mucus 0 SEEN 01/06/22 05:14: Sodium 142, Potassium 3.6, Chloride 114 H, Carbon Dioxide 24.0, Anion Gap 4 L, BUN 17, Creatinine 0.64 L, Estim Creat Clear Calc 59.85, Est GFR (MDRD) Af Amer 154, Est GFR (MDRD) Non-Af 128, BUN/Creatinine Ratio 26.4 H, Glucose 94, Calcium 8.0 L 01/06/22 05:14: WBC 4.9, RBC 2.64 L, Hgb 8.1 L, Hct 24.5 L, MCV 92.8, MCH 30.7, MCHC 33.1, RDW Std Deviation 46.0 H, RDW Coeff of Sophie 13.6, Plt Count 203, MPV 9.3, Immature Gran % (Auto) 0.400, Neut % (Auto) 60.5, Lymph % (Auto) 20.6, Renville % (Auto) 9.7, Eos % (Auto) 8.2 H, Baso % (Auto) 0.6, Absolute Neuts (auto) 2.9, Absolute Lymphs (auto) 1.00, Nucleated RBC % 0 Radiography Diagnostic Testing: Radiology Impression Brain CT 01/05/22 15:26 IMPRESSION: Chronic involutional changes of the brain. No acute hemorrhage Moderate paranasal sinusitis Electronically Signed: Luis Miguel Pepe MD at 16:16 EDT , Chest X-Ray 01/05/22 16:00 IMPRESSION: No interval change Electronically Signed: Luis Miguel Pepe MD at 16:18 EDT , Physical Exam Const alert, oriented x3 and no apparent distress General Appearance: cooperative Orientation / Consciousness: confused Exam Limitations: no limitations HEENT normocephalic, head/scalp atraumatic, hearing grossly normal bilaterally and moist oral mucous membranes Head and Scalp: normocephalic Eyes PERRL, EOMs intact bilaterally and conjunctivae normal Neck no lymphadenopathy, supple and no JVD Resp normal respiratory effort, no retractions, no use of accessory muscles and clear to auscultation bilaterally Cardio regular rate, regular rhythm, S1 normal heart sound, S2 normal heart sound and no murmurs GI normal to inspection, nondistended, normoactive bowel sounds, soft to palpation, non-tender and non-distended Extremity normal to inspection, full ROM and no clubbing, cyanosis or edema Peripheral Pulses: Yes pulses 2+ throughout Skin no rashes or lesions noted Neuro CN's II-XII intact bilaterally and moves all extremities Neuro Narrative: confused Sensorium / Orientation: awake and alert Psych affect normal Assessment & Plan Assessment/Plan (1) Falls frequently: (2) Hallucination, visual: (3) Encephalopathy acute: PLAN: #Acute metabolic encephalopathy * resolved. Much more alert and communicative today * family now wants placement * PT/OT on board. Fall precautions * consult case management to help with placement * * #Debility due to frequent falls: as above #CAD; on statin and aspirin as well as plavix #Hypertension: * control has improved markedly. BP today is 114/44 * on amlodipine and spironolactone. #Hyperlipidemia: on statin #history of COPD; not in exacerbation. stable #History of dementia and ?Parkinson's disease * on levodopa carbidopa * PT/OT on board. Fall precautions * DVT prophylaxis: SCDs Code status: DNRCCA no intubation * Disposition: awaiting placement Charges/Coding Visit Charges Inpatient E&M: 99533 Subs Hosp L2
--- NOTE | 2022-01-06 12:25 | CASEMGMT ---
Social Work Note DEVANTE received call from Leena at [facility] [place] stating they cannot accept pt. SW placed a call to pt's daughter Libia and updated her. SW discussed other SNF options with Libia. Libia states pt will not go back to [facility]. SW informed Libia that the only other SNF in [place] that accept pt;s insurance is [facility]. SW informed Libia that there are SNF in [place], [place], [facility] that accept pt's insurance. Libia asked about [facility]. SW reviewed pt's insurance website and [facility] did not show up. Libia asked about [facility] in [place] and states that one may be ok but told this worker to check with pt. Libia states that obviously safety is number one priority but pt coming home is the best too. Libia states that she will be coming to [facility] hopefully around 2:00pm to see pt herself and do her own assessment. Libia states she is also waiting to hear if pt's hallucinations, delusions, instability, combativeness are from Dementia or other reasons. SW in to speak with pt. Pt is alert and orientated x3 (pt knew name, place, somewhat time). Pt knew it was December but thought it was the year 2019. SW spoke with pt about discharge plans. SW informed pt that [facility] [place] is not able to accept pt. SW informed pt that the only other SNF in [place] that accept pt's insurance is [facility] and then [facility] is the next closest. SW informed pt that this worker spoke with his daughter Libia and updated her that [facility] [place] is not able to accept pt and mentioned [facility]. Pt agreeable to referral being sent to [facility]. SW asked pt about his hallucinations. Pt denied any current Hallucinations, states he hasn't seen the little girl in a few days. Pt denied seeing the little girl yesterday. SW to fax referral to [facility]. Plan: SNF pending acceptance and pre-cert Cecilia Downing ELECTRON MICROSCOPIST, AGING DEPARTMENT SUPERVISOR
--- NOTE | 2022-01-06 13:34 | CASEMGMT ---
CALIN TORREZ in to discuss YOUNG form with patient. Pt sitting up in chair in no distress. Pt A&O x3. Pt states he cannot remember what happened when he fell at home. Pt speaking of going to SNF now. CALIN TORREZ explained YOUNG form, patient voiced understanding. Pt signed form and filed in chart. Pt provided with a copy of signed YOUNG form. Patient had no further questions or concerns at this time.
[2022-01-06 15:57] VITALS: BP 136/46; PULSE 63; RESP 16; TEMP 36.8; O2SAT 99
--- NOTE | 2022-01-06 16:30 | CASEMGMT ---
Social Work Note SW received message from Ely at [facility] stating they can accept pt. SW in to speak with pt. SW informed pt that [facility] pt pending pre-cert. Pt states let me think about it. Pt state there is nothing wrong with me so I may decide to just go home. Pt states that he is sleep walking at night and that is why he is falling. Pt states that his daughter was at [facility] earlier. SW informed pt that he can continue to think about discharge plans and that this worker is just going to get pre-cert started with [facility] as pre-cert can take a few days. SW informed pt that he can think about what he wants to do while pre-cert is pending. Pt states understanding. SW informed pt that this worker will call his daughter Libia to update as well and pt states understanding. DEVANTE placed a call to Ely at [facility] and updated her that with pt's insurance, [facility] needs to submit for pre-cert. DEVANTE informed Ely that this worker will submit for pre-cert today and typically pt's insurance will fax over approval. DVEANTE informed Ely that there is a SW at [facility] tomorrow that can check for pre-cert approval but if the approval is not obtained tomorrow, there is no SW on Sunday to check fax for approval. Ely states that if pre-cert is obtained tomorrow to call her cell [phone] to let her know. Ely states that she will call pt's daughter Libia just to begin process with her regarding pt going to SNF. DEVANTE placed a call to pt's daughter Libia and updated her that [facility] able to accept pt, pre-cert will be needed, and pt is telling this worker that he will think about going to SNF or home. Libia states that that sounds like a good plan. Libia states that it will be good for pt to stay at [facility] tonight so staff can see how he does at night. DEVANTE explained process that pt will need pre-cert and that can sometimes take a few days so pt can remain at [facility] until pre-cert is obtained. DEVANTE informed Libia that if she and pt decides to go home then they can do that as well. DEVANTE informed Libia that it is just beneficial to have SNF as an option and to continue to work on getting approval for SNF in the event pt continues to need SNF. DEVANTE also updated Libia that Ely from [facility] stated she would be calling her just to get consent for pt to admit there if that is where pt goes. Libia states understanding. DEVANTE completed SNF PAC Initial Prior Approval Form and faxed referral to [facility] for Pre-cert. PAS/RR started in [facility]. Plan: [facility] pending pre-cert if pt remains agreeable Cecilia Downing ASTRONAUT MISSION SPECIALIST, FAMILY LAW LEGAL ASSISTANT
[2022-01-06 21:25] VITALS: BP 131/46; PULSE 61; RESP 18; TEMP 37.1; O2SAT 97
[2022-01-06] MEDS: Atorvastatin Calcium 10 MG Tablet PO (21:29)
[2022-01-07] VITALS (17 sets, daily range): BP systolic 65–218; BP diastolic 44–84; PULSE 50–73; RESP 16–20; TEMP 35.6–36.8; O2SAT 96–99
[2022-01-07] MEDS: 0.9% Saline Lock 10 ML Syringe IV ×2 (03:13→18:18)
[2022-01-07] MEDS: hydrALAZINE 20 MG/ML Vial 10 MG IV ×2 (03:13→22:48)
[2022-01-07] MEDS: Carbidopa/Levodopa 25/100 Tablet PO ×3 (06:20→16:35)
[2022-01-07] MEDS: Acetaminophen 325 MG Tablet 650 MG PO (06:27)
[2022-01-07 07:06] LABS: Absolute Neutrophil Count 3.8 X10^3/uL (2.0-7.7); Basophil# 0.04 X10^3/uL; Basophil% 0.6 % (0-1); Eosinophil# 0.52 X10^3/uL; Hematocrit 27.1 % (40-54); Mean Corp Hgb Conc 33.2 g/dL (32-36); Mean Corpuscular Hgb 30.8 pg (27.0-32.0); Mean Corpuscular Volume 92.8 fL (80-94); Mean Platelet Vol. 9.5 fl (6.2-12.0); Monocyte# 0.62 X10^3/uL; Monocyte% 9.5 % (0-10); NRBC Flagged by Analyzer 0 % (0-5); Neutrophil # 3.83 X10^3/uL (2.7-7.7); Neutrophil % 58.6 % (47-70); Platelet Count 243 K/mm3 (150-450); RBC Distribution Width CV 13.7 % (11.6-14.6); RBC Distribution Width SD 46.7 fl (35.1-43.9); Red Blood Count 2.92 M/mm3 (4.6-6.2); White Blood Count 6.5 K/mm3 (4.4-11.0)
[2022-01-07 07:32] LABS: Anion Gap 4 (5-15); BUN 22 mg/dL (7-18); BUN/Creat Ratio 30.6 RATIO (10-20); Calcium,Total 8.4 mg/dL (8.5-10.1); Chloride 111 mmol/L (98-107); Creatinine, Serum 0.72 mg/dL (0.70-1.30); EST Glomerular Filtration Rate 113 mL/min (>60); Est Glom Filt Rate - Afr Amer 136 mL/min (>60); Estimated Creatinine Clearance 59.85 ml/min; Glucose 95 mg/dL (74-106); Potassium 3.5 mmol/L (3.5-5.1); Sodium Level 140 mmol/L (136-145)
[2022-01-07] MEDS: Clopidogrel Bisulfate 75 MG Tablet PO (09:13)
[2022-01-07] MEDS: Aspirin E.C. 81 MG Tablet PO (09:13)
--- NOTE | 2022-01-07 10:31 | PN.HOSP_ITS ---
Subjective Subjective Patient seen and examined. He complained of his legs hurting after he worked with PT/OT this morning. He had no other complaints and review of systems was otherwise negative. Objective Data Objective Data Vital Signs: Vital Signs Temp Pulse Resp BP Pulse Ox 98.2 F 53 L 18 143/55 H 97 01/07/22 09:05 01/07/22 09:05 01/07/22 09:05 01/07/22 09:05 01/07/22 09:05 Oxygen Delivery Method Room Air Weight: 196 lb 13.965 oz Body Mass Index (BMI) 29.1 Intake & Output: Intake and Output for Last 24 Hours 01/05/22 01/06/22 01/07/22 23:59 23:59 23:59 Intake Total 635 / 635 3185 / 3185 Output Total 1050 / 1050 Balance 635 / 635 2135 / 2135 Lab / Micro Data Result Diagrams: 01/07/22 05:39 01/07/22 05:39 Labs: Laboratory Results - last 24 hr 01/07/22 05:39: Sodium 140, Potassium 3.5, Chloride 111 H, Carbon Dioxide 25.0, Anion Gap 4 L, BUN 22 H, Creatinine 0.72, Estim Creat Clear Calc 59.85, Est GFR (MDRD) Af Amer 136, Est GFR (MDRD) Non-Af 113, BUN/Creatinine Ratio 30.6 H, Glucose 95, Calcium 8.4 L 01/07/22 05:39: WBC 6.5, RBC 2.92 L, Hgb 9.0 L, Hct 27.1 L, MCV 92.8, MCH 30.8, MCHC 33.2, RDW Std Deviation 46.7 H, RDW Coeff of Sophie 13.7, Plt Count 243, MPV 9.5, Immature Gran % (Auto) 0.300, Neut % (Auto) 58.6, Lymph % (Auto) 23.0, Stone % (Auto) 9.5, Eos % (Auto) 8.0 H, Baso % (Auto) 0.6, Absolute Neuts (auto) 3.8, Absolute Lymphs (auto) 1.50, Nucleated RBC % 0 Physical Exam Const alert, oriented x3 and no apparent distress General Appearance: cooperative Orientation / Consciousness: confused Exam Limitations: no limitations HEENT normocephalic, head/scalp atraumatic, hearing grossly normal bilaterally and moist oral mucous membranes Head and Scalp: normocephalic Eyes PERRL, EOMs intact bilaterally and conjunctivae normal Neck no lymphadenopathy, supple and no JVD Resp normal respiratory effort, no retractions, no use of accessory muscles and clear to auscultation bilaterally Cardio regular rate, regular rhythm, S1 normal heart sound, S2 normal heart sound and no murmurs GI normal to inspection, nondistended, normoactive bowel sounds, soft to palpation, non-tender and non-distended Extremity normal to inspection, full ROM and no clubbing, cyanosis or edema Peripheral Pulses: Yes pulses 2+ throughout Skin no rashes or lesions noted Neuro CN's II-XII intact bilaterally and moves all extremities Sensorium / Orientation: awake and alert Psych affect normal Assessment & Plan Assessment/Plan (1) Falls frequently: (2) Hallucination, visual: (3) Encephalopathy acute: PLAN: #Acute metabolic encephalopathy * now improved. * PT/OT on board. fall precautions * awaiting placement. * * #Debility due to frequent falls: as above #CAD; on statin and aspirin as well as plavix #Hypertension: * on amlodipine and spironolactone * IV hydralazine prn #Hyperlipidemia: on statin #history of COPD; not in exacerbation. stable #History of dementia * on levodopa carbidopa * DVT prophylaxis: SCDs Code status: DNRCCA no intubation Disposition: awaiting placement Charges/Coding Visit Charges Inpatient E&M: 68181 Subs Hosp L2
[2022-01-07] MEDS: Folic Acid 1 MG Tablet PO (12:08)
[2022-01-07] MEDS: Cyanocobalamin 500 MCG Tablet 1000 MCG PO (12:09)
--- NOTE | 2022-01-07 13:22 | CASEMGMT ---
Social Work This social sciences department chair checked fax machine on [facility], no pre-cert obtained yet. Will continue to follow. Igor Wild SALES REP, LULA-S
--- NOTE | 2022-01-07 14:45 | CASEMGMT ---
Social Work Met with patient in room to confirm patient SNF option/discharge plan. Patient still unsure of patient decision. This social work lecturer communicating that pre-cert continues to be pending for [facility], patient agreeable for medical team to continue to pursue placement to [facility], I can still change my mind later. This social work lecturer confirms that patient has right to own choice in regards to discharge plan but medical team is recommending for patient to transition to SNF for patient safety, patient agrees I do need help. Social Work to continue to follow. Igor Wild MSW, SHEKHAR
--- NOTE | 2022-01-07 15:43 | NURSING ---
Patients daughter in the room with pt. She is concerned that pt keeps complaining of Lt knee pain and has been complaining at home about it for awhile now. Patients daughter was asking if we could get it xrayed to make sure nothing is wrong with it. Pt daughter also informed this nurse that dad told me that the tylenol does not help his knee pain and wants something else besides tylenol but also wants [place]. This nurse texted via [employer] to inform all of the above.
--- NOTE | 2022-01-07 16:02 | RAD_ITS ---
STUDY: X-RAY - LEFT KNEE REASON FOR EXAM: Male, 76 years old. left knee pain TECHNIQUE: 3 view(s) of the knee. COMPARISON: None. FINDINGS: Normal visualized distal femur. Normal visualized proximal tibia and fibula. Normal proximal tibiofibular articulation. Normal medial femorotibial compartment. Normal lateral femorotibial compartment. Normal patellofemoral articulation. There is no demonstrated joint effusion. There are atherosclerotic calcifications. RAD/Knee 3 Views IMPRESSION: No fracture or malalignment. Electronically Signed: Delfino Fish MD ([place]) at 17:55 EDT ,
[2022-01-07] MEDS: MENTHOL 226.8 GM JAR 1 APPLIC TOPICAL ×2 (16:35→20:46)
--- NOTE | 2022-01-07 17:59 | NURSING ---
Called into room by Hayde LAYTON. Pt was attempting to get up on own from his chair and pt was pale and diaphoretic and just stood there in a daze. Was assisted into bed then can infromed this nurse. Bs was 134. Pt was laying in bed confused when this nurse came in the room. BP 107/52. this nurse knew pt was A&Ox3 around [address] Calle messaged via [employer] to come see pt and all the above. Orders for orthostatic Vs per Dr. Calle.
--- NOTE | 2022-01-07 18:07 | NURSING ---
orthos +. Dr. Calle here to see pt and aware of + orthos.
[2022-01-07 18:11] LABS: Bedside Glucose 134 mg/dL (74-106)
[2022-01-07] MEDS: 0.9% Normal Saline 1,000 ML 999 ML IV (18:17)
[2022-01-07] MEDS: Atorvastatin Calcium 10 MG Tablet PO (20:46)
[2022-01-08] VITALS (8 sets, daily range): BP systolic 137–182; BP diastolic 48–77; PULSE 65–85; RESP 14–18; TEMP 36.6–36.9; O2SAT 97–100
[2022-01-08] MEDS: 0.9% Saline Lock 10 ML Syringe IV (03:23)
[2022-01-08] MEDS: hydrALAZINE 20 MG/ML Vial 10 MG IV (03:23)
[2022-01-08] MEDS: Carbidopa/Levodopa 25/100 Tablet PO ×3 (05:38→15:35)
[2022-01-08] MEDS: MENTHOL 226.8 GM JAR 1 APPLIC TOPICAL ×2 (05:38→21:16)
[2022-01-08 06:17] LABS: Absolute Lymphocyte Count 1.38 X10^3/uL (0.83-4.51); Absolute Neutrophil Count 4.2 X10^3/uL (2.0-7.7); Basophil# 0.04 X10^3/uL; Basophil% 0.6 % (0-1); Eosinophil# 0.69 X10^3/uL; Hematocrit 27.4 % (40-54); Lymphocyte # 1.38 X10^3/ul (0.83-4.51); Lymphocyte % 20.1 % (19-41); Mean Corp Hgb Conc 32.8 g/dL (32-36); Mean Corpuscular Hgb 30.5 pg (27.0-32.0); Mean Corpuscular Volume 92.9 fL (80-94); Monocyte# 0.56 X10^3/uL; Monocyte% 8.2 % (0-10); NRBC Flagged by Analyzer 0 % (0-5); Neutrophil # 4.18 X10^3/uL (2.7-7.7); Neutrophil % 60.8 % (47-70); Platelet Count 244 K/mm3 (150-450); RBC Distribution Width CV 13.6 % (11.6-14.6); RBC Distribution Width SD 46.5 fl (35.1-43.9); Red Blood Count 2.95 M/mm3 (4.6-6.2); White Blood Count 6.9 K/mm3 (4.4-11.0)
[2022-01-08 06:35] LABS: Anion Gap 5 (5-15); BUN 16 mg/dL (7-18); BUN/Creat Ratio 23.5 RATIO (10-20); Chloride 112 mmol/L (98-107); Creatinine, Serum 0.68 mg/dL (0.70-1.30); EST Glomerular Filtration Rate 120 mL/min (>60); Est Glom Filt Rate - Afr Amer 145 mL/min (>60); Estimated Creatinine Clearance 59.85 ml/min; Glucose 91 mg/dL (74-106); Potassium 3.5 mmol/L (3.5-5.1); Sodium Level 140 mmol/L (136-145)
[2022-01-08] MEDS: Clopidogrel Bisulfate 75 MG Tablet PO (07:38)
[2022-01-08] MEDS: Aspirin E.C. 81 MG Tablet PO (07:38)
[2022-01-08] MEDS: amLODIPine 5 MG Tablet PO (07:38)
[2022-01-08] MEDS: Spironolactone 25 MG Tablet PO (07:39)
--- NOTE | 2022-01-08 09:42 | PN.HOSP_ITS ---
Subjective Subjective Patient seen and examined. He had no active complaints and felt well. He was found to be dizzy and diaphoretic yesterday; orthostatics were positive. his BP meds were held and he was hydrated with IVF and given a bolus of normal saline. His blood pressure however became elevated overnight so his BP meds were resum ed. Objective Data Objective Data Vital Signs: Vital Signs Temp Pulse Resp BP Pulse Ox 98.5 F 85 16 167/77 H 100 01/08/22 07:40 01/08/22 07:40 01/08/22 07:40 01/08/22 07:40 01/08/22 07:40 Oxygen Delivery Method Room Air Weight: 196 lb 13.965 oz Body Mass Index (BMI) 29.1 Intake & Output: Intake and Output for Last 24 Hours 01/06/22 01/07/22 01/08/22 23:59 23:59 23:59 Intake Total 3185 / 3185 1440 / 1440 1000 / 1000 Output Total 1050 / 1050 500 / 500 Balance 2135 / 2135 940 / 940 1000 / 1000 Lab / Micro Data Result Diagrams: 01/08/22 06:05 01/08/22 06:05 Labs: Laboratory Results - last 24 hr 01/07/22 18:00: POC Glucose 134 H 01/08/22 06:05: WBC 6.9, RBC 2.95 L, Hgb 9.0 L, Hct 27.4 L, MCV 92.9, MCH 30.5, MCHC 32.8, RDW Std Deviation 46.5 H, RDW Coeff of Sophie 13.6, Plt Count 244, MPV 9.0, Immature Gran % (Auto) 0.300, Neut % (Auto) 60.8, Lymph % (Auto) 20.1, [place] % (Auto) 8.2, Eos % (Auto) 10.0 H, Baso % (Auto) 0.6, Absolute Neuts (auto) 4.2, Absolute Lymphs (auto) 1.38, Nucleated RBC % 0 01/08/22 06:05: Sodium 140, Potassium 3.5, Chloride 112 H, Carbon Dioxide 23.0, Anion Gap 5, BUN 16, Creatinine 0.68 L, Estim Creat Clear Calc 59.85, Est GFR (MDRD) Af Amer 145, Est GFR (MDRD) Non-Af 120, BUN/Creatinine Ratio 23.5 H, Glucose 91, Calcium 8.0 L Radiography Diagnostic Testing: Radiology Impression Knee X-Ray 01/07/22 16:02 IMPRESSION: No fracture or malalignment. Electronically Signed: Delfino Fish MD ([place]) at 17:55 EDT , Physical Exam Const alert, oriented x3 and no apparent distress General Appearance: cooperative Orientation / Consciousness: confused Exam Limitations: no limitations HEENT normocephalic, head/scalp atraumatic, hearing grossly normal bilaterally and moist oral mucous membranes Head and Scalp: normocephalic Eyes PERRL, EOMs intact bilaterally and conjunctivae normal Neck no lymphadenopathy, supple and no JVD Resp normal respiratory effort, no retractions, no use of accessory muscles and clear to auscultation bilaterally Cardio regular rate, regular rhythm, S1 normal heart sound, S2 normal heart sound and no murmurs GI normal to inspection, nondistended, normoactive bowel sounds, soft to palpation, non-tender and non-distended Extremity normal to inspection, full ROM and no clubbing, cyanosis or edema Peripheral Pulses: Yes pulses 2+ throughout Skin no rashes or lesions noted Neuro CN's II-XII intact bilaterally and moves all extremities Sensorium / Orientation: awake and alert Psych affect normal Assessment & Plan Assessment/Plan (1) Falls frequently: (2) Hallucination, visual: (3) Encephalopathy acute: PLAN: #Acute metabolic encephalopathy * now improved. * PT/OT on board. fall precautions * awaiting placement. * #Orthostatic hypotension * resolved with administration of IVF * will monitor * fall precautions * #Debility due to frequent falls: * as above. Complained of right knee pain yesterday. * Xray of the right knee showed no fracture or malalignment. #CAD; on statin and aspirin as well as plavix #Hypertension: * on amlodipine and spironolactone * IV hydralazine prn #Hyperlipidemia: on statin #history of COPD; not in exacerbation. stable #History of dementia * on levodopa carbidopa * DVT prophylaxis: SCDs Code status: DNRCCA no intubation Disposition: awaiting placement Charges/Coding Visit Charges Inpatient E&M: 16482 Subs Hosp L2
[2022-01-08] MEDS: Folic Acid 1 MG Tablet PO (10:51)
[2022-01-08] MEDS: Cyanocobalamin 500 MCG Tablet 1000 MCG PO (10:51)
[2022-01-08] MEDS: Atorvastatin Calcium 10 MG Tablet PO (21:16)
[2022-01-08] MEDS: QUEtiapine 25 MG Tablet PO (21:16)
[2022-01-09] VITALS (7 sets, daily range): BP systolic 83–169; BP diastolic 34–75; PULSE 54–66; RESP 16–18; TEMP 36.8–36.9; O2SAT 97–100
[2022-01-09 06:23] LABS: Absolute Lymphocyte Count 1.29 X10^3/uL (0.83-4.51); Absolute Neutrophil Count 3.3 X10^3/uL (2.0-7.7); Basophil# 0.03 X10^3/uL; Basophil% 0.5 % (0-1); Eosinophil# 0.55 X10^3/uL; Eosinophils% 9.8 % (0-5); Hematocrit 24.8 % (40-54); Hemoglobin 8.1 g/dL (13.0-16.5); Lymphocyte # 1.29 X10^3/ul (0.83-4.51); Mean Corp Hgb Conc 32.7 g/dL (32-36); Mean Corpuscular Hgb 30.1 pg (27.0-32.0); Mean Corpuscular Volume 92.2 fL (80-94); Mean Platelet Vol. 8.8 fl (6.2-12.0); Monocyte# 0.48 X10^3/uL; Monocyte% 8.5 % (0-10); NRBC Flagged by Analyzer 0 % (0-5); Neutrophil # 3.26 X10^3/uL (2.7-7.7); Platelet Count 223 K/mm3 (150-450); RBC Distribution Width CV 13.8 % (11.6-14.6); RBC Distribution Width SD 46.5 fl (35.1-43.9); Red Blood Count 2.69 M/mm3 (4.6-6.2); White Blood Count 5.6 K/mm3 (4.4-11.0)
[2022-01-09 06:47] LABS: Anion Gap 5 (5-15); BUN 15 mg/dL (7-18); Chloride 113 mmol/L (98-107); Creatinine, Serum 0.68 mg/dL (0.70-1.30); EST Glomerular Filtration Rate 120 mL/min (>60); Est Glom Filt Rate - Afr Amer 145 mL/min (>60); Estimated Creatinine Clearance 59.85 ml/min; Glucose 92 mg/dL (74-106); Potassium 3.7 mmol/L (3.5-5.1); Sodium Level 142 mmol/L (136-145)
--- NOTE | 2022-01-09 08:37 | CASEMGMT ---
Social Work Note SW received message from Martha LAYTON reviewer for [facility] stating pt was approved SNF level of care beginning 01/06/2022-01/15/2022. Authorization number is [id number]. SW will complete PAS/RR to make sure pt doesn't trip the screen. If pt doesn't trip the screen and pt is medically ready for discharge, pt could discharge to [facility] today. SW to follow. Cecilia Downing PEDIATRIC LPN, INNOVATION MANAGER
--- NOTE | 2022-01-09 09:04 | PCM.TXEXTCAR ---
Diet 01/05/22 20:14 Diet: Cardiac - Heart Healthy Food consistency:: Regular Liquid Consistency:: Regular/Thin Routine Orders/Code Status Keep PO Greater than or Equal to (%): 94 Routine Lab Work: CBC (within 3 days) and BMP (within 3 days) Code Status: DNRCC-A (no intubation) Wound(s) R FOREHEAD: Wound Type: Abrasion Rt aguilar: Wound Type: Abrasion Therapies Weight Bearing: Weight bearing as tolerated Extremity Affected:: Bilateral Lower Physical Therapy: Eval and Treat Occupational Therapy: Eval and Treat Problem/Diagnosis (1) Falls frequently: Status: Acute (2) Hallucination, visual: Status: Resolved Allergies/Procedures Done in Hospital Allergies No Known Allergies Allergy (Verified 01/05/22 15:06) Procedures: None Type of Care/Length of Stay Estimated LOS: Convalescent Care Less Than 30 days Type of Care Needed: Skilled Rehab Potential: Good Prognosis: Good Additional Orders/Day of Discharge Day of Discharge: 01/09/22 Discharge Plan Admission Admit Date/Time: 01/05/22 17:41 Primary Reason for Your Visit: Debility, falls Attending Provider: Marii Worthy Primary Care Provider: Jasson England Discharge Orders/Prescriptions Prescriptions: No Action spironolactone 25 mg tablet 25 mg PO DAILY Qty: 30 RF: 11 aspirin [Aspirin Low Dose] 81 mg Tablet,Delayed Release (Dr/Ec) 81 mg PO DAILY RF: 0 atorvastatin 10 mg tablet 10 mg PO DAILY RF: 0 folic acid 1 mg Tablet 1 mg PO DAILY@1200 RF: 0 carbidopa-levodopa 25-100 mg Tablet 0.5 tab PO TID RF: 0 cyanocobalamin (vitamin B-12) 1,000 mcg Capsule 1,000 mcg PO DAILY@1200 RF: 0 pantoprazole 40 mg tablet,delayed release (DR/EC) 40 mg PO DAILY PRN (Reason: GERD) RF: 0 albuterol sulfate [ProAir HFA] 90 mcg/actuation HFA aerosol inhaler 1 inh inhalation Q6H PRN (Reason: shortness of breath or wheezing) Qty: 6.7 RF: 0 cefdinir 300 mg capsule 300 mg PO BID Qty: 14 RF: 0 clopidogrel [Plavix] 75 mg tablet 75 mg PO DAILY Qty: 90 RF: 3 amlodipine 5 mg tablet 5 mg PO DAILY Qty: 90 RF: 3 Referrals / Follow Up: Jasson England MD [Primary Care Provider] - Disposition Disposition (needs filled in before D/C Order can be placed): Group Home Facility
[2022-01-09] MEDS: Aspirin E.C. 81 MG Tablet PO (09:10)
[2022-01-09] MEDS: amLODIPine 5 MG Tablet PO (09:11)
[2022-01-09] MEDS: Clopidogrel Bisulfate 75 MG Tablet PO (09:11)
[2022-01-09] MEDS: Spironolactone 25 MG Tablet PO (09:11)
--- NOTE | 2022-01-09 10:01 | PN.HOSP_ITS ---
Subjective Subjective Follow-up on debility/recurrent falls: Patient was seen and examined. Orthostatic vitals pending. Patient overnight was confused. Per nursing, this happens usually at night. He received x1 dose of Seroquel. Chest x-ray was unremarkable. Objective Data Objective Data Vital Signs: Vital Signs Temp Pulse Resp BP Pulse Ox 98.3 F 60 16 147/62 H 98 01/09/22 08:55 01/09/22 08:55 01/09/22 08:55 01/09/22 08:55 01/09/22 08:55 Oxygen Delivery Method Room Air Weight: 89.3 kg Body Mass Index (BMI) 29.1 Intake & Output: Intake and Output for Last 24 Hours 01/07/22 01/08/22 01/09/22 23:59 23:59 23:59 Intake Total 1440 / 1440 3219.58 / 3219.58 Output Total 500 / 500 Balance 940 / 940 3219.58 / 3219.58 Lab / Micro Data Result Diagrams: 01/09/22 06:00 01/09/22 06:00 Labs: Laboratory Results - last 24 hr 01/09/22 06:00: WBC 5.6, RBC 2.69 L, Hgb 8.1 L, Hct 24.8 L, MCV 92.2, MCH 30.1, MCHC 32.7, RDW Std Deviation 46.5 H, RDW Coeff of Sophie 13.8, Plt Count 223, MPV 8.8, Immature Gran % (Auto) 0.200, Neut % (Auto) 58.0, Lymph % (Auto) 23.0, [place] % (Auto) 8.5, Eos % (Auto) 9.8 H, Baso % (Auto) 0.5, Absolute Neuts (auto) 3.3, Absolute Lymphs (auto) 1.29, Nucleated RBC % 0 01/09/22 06:00: Sodium 142, Potassium 3.7, Chloride 113 H, Carbon Dioxide 24.0, Anion Gap 5, BUN 15, Creatinine 0.68 L, Estim Creat Clear Calc 59.85, Est GFR (MDRD) Af Amer 145, Est GFR (MDRD) Non-Af 120, BUN/Creatinine Ratio 22.0 H, G lucose 92, Calcium 8.0 L Physical Exam Narrative Physical exam: General: Alert, oriented x3 cooperative, No apparent distress, Well developed HEENT: Atraumatic Oral: Moist Mucosa Neck: Supple Lungs: Clear to auscultation Cardiovascular: HS I+II, regular, no murmurs Abdomen: Bowel Sounds Present, Soft, Non Tender Extremities: No edema Assessment & Plan Assessment/Plan (1) Falls frequently: (2) Hallucination, visual: (3) Encephalopathy acute: PLAN: 1. Recurrent falls/debility, orthostatic hypotensive yesterday Likely underlying cause also will be patient's Parkinson's disease Repeat orthostatic vitals pending We will continue with fall precautions, PT/OT to evaluate and treat 2. Dementia, Parkinson disease related, advanced, progressive Patient is not safe to live by himself.Family is unable to care for him Acute metabolic encephalopathy ruled out as patient has not received any treatment and has been stable during this admission PT and OT consulted, recommended discharge to halfway facility 3. CAD, stable, continue on aspirin, Plavix, statin 4. Hypertension, controlled, continue amlodipine and spironolactone 5. Hyperlipidemia, continue on statin 6. COPD, not in acute exacerbation 7. Code status- DNRCCA no intubation Charges/Coding Visit Charges Inpatient E&M: 06126 Subs Hosp L2
[2022-01-09] MEDS: Cyanocobalamin 500 MCG Tablet 1000 MCG PO (11:25)
[2022-01-09] MEDS: Folic Acid 1 MG Tablet PO (11:25)
[2022-01-09] MEDS: Carbidopa/Levodopa 25/100 Tablet PO ×2 (11:25→16:04)
--- NOTE | 2022-01-09 12:38 | CASEMGMT ---
Social Work Note SW completed PAS/RR in HENS. Pt did not trip the screen. SW placed a call to Ely at [facility] and updated her that pre-cert was obtained and pt can discharge to SNF today. SW updated physician. SW updated that pt's daughter Libia and additional guest is present in room and requesting to speak to this worker. SW in to speak with pt, Libia and additional guest in room. Libia states she is very upset with this worker and the lack of communication. Libia states that she is in to see pt and was told that pt was leaving to go to [facility]. Libia states that Ely from [facility] also already called her and said that pt was coming today and that this worker sent the discharge paperwork. SW informed Libia that the SW on Sunday did speak to pt and pt was saying that he did need to go somewhere for additional help. DEVANTE informed Libia that this worker did send the discharge paperwork but had not arranged transportation yet as medically pt needed tested for Blood Pressure still (ortho's) and that this worker needed to speak to pt and her again to confirm discharge plans. Libia confirms that pt's blood pressure gets low and states that pt has groin pain and left leg is swollen and wants to make sure pt is medically ready for discharge. SW informed Libia that RN will relay medical updates to MD and this worker will not arrange transportation until pt is medically cleared for discharge. Pt sitting in chair and does confirm he needs to go to [facility] for at least a week of therapy. SW informed pt, Libia and donna that once transportation is arranged this worker will make sure Libia is aware. Libia states understanding. Libia states that she would also like to go to see [facility]. Plan: [facility] today skilled Cecilia Downing EDUCATION COURSES SALES REPRESENTATIVE, PRIMER PRESS OPERATOR
[2022-01-09] MEDS: 0.9% Saline Lock 10 ML Syringe IV (13:02)
--- NOTE | 2022-01-09 16:20 | CASEMGMT ---
Addendum entered by Cecilia Downing 01/09/22 16:29: DEVANTE updated RN that pt's daughter is requesting pt doesn't get Seroquel. SW faxed updated clinicals to [facility]. Original Note: Social Work Note SW updated that pt is to remain at [facility]. DEVANTE placed a call to Ely at [facility] and updated her that pt will remain at [facility]. DEVANTE placed a call to pt's daughter Libia and updated her that pt will remain at [facility], hopeful discharge tomorrow to [facility]. Libia states to let staff know to not give pt Seroquel. SW will relay message. Plan: [facility] skilled when medically cleared Cecilia Downing MIDDLE SCHOOL MATH TEACHER, GENERAL ROAD SUPERVISOR
[2022-01-09] MEDS: 0.9% Normal Saline 1,000 ML 100 ML IV (17:13)
[2022-01-09] MEDS: Atorvastatin Calcium 10 MG Tablet PO (22:54)
[2022-01-10 02:46] VITALS: BP 153/98; PULSE 64; RESP 18; TEMP 36.8; O2SAT 96
[2022-01-10 05:59] LABS: Absolute Lymphocyte Count 1.19 X10^3/uL (0.83-4.51); Absolute Neutrophil Count 2.7 X10^3/uL (2.0-7.7); Basophil# 0.03 X10^3/uL; Basophil% 0.6 % (0-1); Eosinophil# 0.48 X10^3/uL; Eosinophils% 9.9 % (0-5); Hematocrit 24.5 % (40-54); Hemoglobin 8.2 g/dL (13.0-16.5); Lymphocyte # 1.19 X10^3/ul (0.83-4.51); Lymphocyte % 24.5 % (19-41); Mean Corp Hgb Conc 33.5 g/dL (32-36); Mean Corpuscular Hgb 30.7 pg (27.0-32.0); Mean Corpuscular Volume 91.8 fL (80-94); Mean Platelet Vol. 9.2 fl (6.2-12.0); Monocyte# 0.46 X10^3/uL; Monocyte% 9.5 % (0-10); NRBC Flagged by Analyzer 0 % (0-5); Neutrophil # 2.67 X10^3/uL (2.7-7.7); Neutrophil % 55.1 % (47-70); Platelet Count 232 K/mm3 (150-450); RBC Distribution Width CV 13.8 % (11.6-14.6); RBC Distribution Width SD 46.5 fl (35.1-43.9); Red Blood Count 2.67 M/mm3 (4.6-6.2); White Blood Count 4.9 K/mm3 (4.4-11.0)
[2022-01-10 06:28] LABS: ALB/GLOB Ratio 0.9 RATIO (0.9-2.4); AST(SGOT) 20 U/L (15-37); Alanine Aminotransfer ALT/SGPT 22 U/L (16-61); Albumin, Serum 2.6 g/dL (3.2-5.0); Alkaline Phosphatase 72 U/L (45-117); Anion Gap 4 (5-15); BUN 20 mg/dL (7-18); Calcium,Total 8.2 mg/dL (8.5-10.1); Chloride 113 mmol/L (98-107); Creatinine, Serum 0.74 mg/dL (0.70-1.30); EST Glomerular Filtration Rate 109 mL/min (>60); Est Glom Filt Rate - Afr Amer 132 mL/min (>60); Estimated Creatinine Clearance 59.85 ml/min; Globulin 2.9 g/dL (2.2-4.2); Glucose 95 mg/dL (74-106); Potassium 3.6 mmol/L (3.5-5.1); Protein, Total 5.5 g/dL (6.4-8.2); Sodium Level 141 mmol/L (136-145)
[2022-01-10] MEDS: Carbidopa/Levodopa 25/100 Tablet PO ×3 (06:33→15:49)
[2022-01-10 07:56] VITALS: BP 176/63; PULSE 56; RESP 18; TEMP 37.1
[2022-01-10 08:06] VITALS: BP 115/44; BP 189/59; BP 73/37
[2022-01-10] MEDS: Aspirin E.C. 81 MG Tablet PO (08:20)
[2022-01-10] MEDS: amLODIPine 10 MG Tablet PO (09:48)
[2022-01-10] MEDS: Clopidogrel Bisulfate 75 MG Tablet PO (09:49)
--- NOTE | 2022-01-10 10:15 | PCM.TXEXTCAR ---
Diet 01/05/22 20:14 Diet: Regular diet Food consistency:: Regular Liquid Consistency:: Regular/Thin Routine Orders/Code Status Keep PO Greater than or Equal to (%): 94 Routine Lab Work: CBC (within 3 days) and BMP (within 3 days) Code Status: DNRCC-A (no intubation) Wound(s) R FOREHEAD: Wound Type: Abrasion Rt aguilar: Wound Type: Abrasion Therapies Weight Bearing: Weight bearing as tolerated Extremity Affected:: Bilateral Lower Physical Therapy: Eval and Treat Occupational Therapy: Eval and Treat Problem/Diagnosis (1) Falls frequently: Status: Acute (2) Hallucination, visual: Status: Resolved Allergies/Procedures Done in Hospital Allergies No Known Allergies Allergy (Verified 01/05/22 15:06) Procedures: None Type of Care/Length of Stay Estimated LOS: Convalescent Care Less Than 30 days Type of Care Needed: Skilled Rehab Potential: Good Prognosis: Good Additional Orders/Day of Discharge Day of Discharge: 01/09/22 Discharge Plan Admission Admit Date/Time: 01/09/22 16:31 Primary Reason for Your Visit: Debility, falls Attending Provider: Marii oWrthy Primary Care Provider: Jasson England Instructions Additional Instructions / Restrictions: Please note that patient has postural hypotension. He should carefully move from supine to sitting and then standing. He should continue with the FAITH hose stockings. He will follow-up with neurology within 1-2 weeks. Discharge Orders/Prescriptions Prescriptions: New amlodipine 10 mg Tablet 10 mg PO DAILY Qty: 0 RF: 0 Continued aspirin [Aspirin Low Dose] 81 mg Tablet,Delayed Release (Dr/Ec) 81 mg PO DAILY RF: 0 atorvastatin 10 mg tablet 10 mg PO DAILY RF: 0 folic acid 1 mg Tablet 1 mg PO DAILY@1200 RF: 0 carbidopa-levodopa 25-100 mg Tablet 0.5 tab PO TID RF: 0 cyanocobalamin (vitamin B-12) 1,000 mcg Capsule 1,000 mcg PO DAILY@1200 RF: 0 pantoprazole 40 mg tablet,delayed release (DR/EC) 40 mg PO DAILY PRN (Reason: GERD) RF: 0 albuterol sulfate [ProAir HFA] 90 mcg/actuation HFA aerosol inhaler 1 inh inhalation Q6H PRN (Reason: shortness of breath or wheezing) Qty: 6.7 RF: 0 clopidogrel [Plavix] 75 mg tablet 75 mg PO DAILY Qty: 90 RF: 3 Discontinued spironolactone 25 mg tablet 25 mg PO DAILY Qty: 30 RF: 11 cefdinir 300 mg capsule 300 mg PO BID Qty: 14 RF: 0 amlodipine 5 mg tablet 5 mg PO DAILY Qty: 90 RF: 3 Referrals / Follow Up: Jasson England MD [Primary Care Provider] - Within 1 Week Disposition Disposition (needs filled in before D/C Order can be placed): Group Home Facility
[2022-01-10] MEDS: 0.9% Saline Lock 10 ML Syringe IV (10:45)
--- NOTE | 2022-01-10 11:26 | CASEMGMT ---
Social Work Note Pt to discharge to [facility] today. SW placed a call to Ely at [facility] and updated her. Ely states understanding, states pt's COVID test from yesterday is still good for today. Plan: [facility] skilled today Cecilia Downing DEPUTY SHERIFF COURT SERVICES, SUPERVISOR PUBLIC HEALTH NURSING
[2022-01-10] MEDS: Cyanocobalamin 500 MCG Tablet 1000 MCG PO (11:45)
[2022-01-10] MEDS: Folic Acid 1 MG Tablet PO (11:45)
--- NOTE | 2022-01-10 12:00 | DS.PCM_ITS ---
Providers Date of Admission: 01/09/22 Date of Discharge: 01/10/22 Primary Care Physician: Dr. Jasson England MD Reason For Visit: ACUTE METABOLIC ENCEPHALOPATHY Diagnosis Discharge Diagnosis (1) Falls frequently: Status: Acute Code(s): R29.6 - Repeated falls (2) Hallucination, visual: Status: Resolved Code(s): R44.1 - Visual hallucinations (3) Metabolic encephalopathy: Status: Acute Code(s): G93.41 - Metabolic encephalopathy (4) Orthostatic hypotension: Status: Acute Code(s): I95.1 - Orthostatic hypotension Medications at Discharge Home Medications aspirin [Aspirin Low Dose] 81 mg PO DAILY 05/26/21 atorvastatin 10 mg PO DAILY 05/26/21 clopidogrel 75 mg tablet 75 mg PO DAILY #90 tab 07/20/21 carbidopa-levodopa 0.5 tab PO TID 10/25/21 cyanocobalamin (vitamin B-12) 1,000 mcg PO DAILY@1200 10/25/21 folic acid 1 mg PO DAILY@1200 10/25/21 pantoprazole 40 mg PO DAILY PRN 10/25/21 albuterol sulfate [ProAir HFA] 1 inh INHALATION Q6H PRN #6.7 g 10/28/21 amlodipine 10 mg PO DAILY #0 tab 01/10/22 fludrocortisone 0.1 mg PO TID #90 tab 01/10/22 Hospital Course Operations None Procedures None Summary of Care Provided Minutes Spent on Discharge: 35 Hospital Course: 76-year-old male with multiple comorbidities, with probable Lewy body dementia/Parkinson's disease, with autonomic dysfunction/postural hypotension, used to be on Florinef who comes in a day after his discharge with confusion and has hallucinations and a fall. Patient was said to be hallucin ating and thought it was a little girl in the house. In the previous admission, patient's daughter was reported to have declined discharge to a residential facility. Family were now receptive to discharge for subacute rehab. Patient was admitted to the [facility] floor, work-up was essentially unremarkable. Patient was found to have orthostatic hypotension. Patient received fluid boluses. He had supine hypertension with systolic in the 180 on the morning of discharge but on sitting, it dropped to 115 then 73 on standing. Discussed with his neurologist office, patient will be started on fludrocortisone 0.1 mg 3 times daily. He will need to follow-up with the office in a week. He was prescribed FAITH hoses in this hospital stay and his diet was liberalized to a regular diet. He was asked to continue to drink to stay hydrated. Physical Exam Narrative Physical exam: General: Alert, oriented x3 cooperative, No apparent distress, Well developed HEENT: Atraumatic Oral: Moist Mucosa Neck: Supple Lungs: Clear to auscultation Cardiovascular: HS I+II, regular, no murmurs Abdomen: Bowel Sounds Present, Soft, Non Tender Extremities: No edema Weight / BMI Weight Weight: 89.3 kg Body Mass Index (BMI) 29.1 ABG / Lab / Microbiology Data Result Diagrams: 01/10/22 05:26 01/10/22 05:26 Laboratory: Laboratory Results - last 24 hr 01/10/22 05:26: WBC 4.9, RBC 2.67 L, Hgb 8.2 L, Hct 24.5 L, MCV 91.8, MCH 30.7, MCHC 33.5, RDW Std Deviation 46.5 H, RDW Coeff of Sophie 13.8, Plt Count 232, MPV 9.2, Immature Gran % (Auto) 0.400, Neut % (Auto) 55.1, Lymph % (Auto) 24.5, [place] % (Auto) 9.5, Eos % (Auto) 9.9 H, Baso % (Auto) 0.6, Absolute Neuts (auto) 2.7, Absolute Lymphs (auto) 1.19, Nucleated RBC % 0 01/10/22 05:26: Sodium 141, Potassium 3.6, Chloride 113 H, Carbon Dioxide 24.0, Anion Gap 4 L, BUN 20 H, Creatinine 0.74, Estim Creat Clear Calc 59.85, Est GFR (MDRD) Af Amer 132, Est GFR (MDRD) Non-Af 109, BUN/Creatinine Ratio 27.0 H, Glucose 95, Calcium 8.2 L, Total Bilirubin 0.40, AST 20, ALT 22, Alkaline Phosphatase 72, Total Protein 5.5 L, Albumin 2.6 L, Globulin 2.9, Albumin/Globulin Ratio 0.9 Microbiology: Microbiology 01/09/22 12:05 Nasal Secretion SARS-CoV-2 Antigen (Rapid) - Final D/C Instructions Discharge Diet: No restrictions Meaningful Use Info Meaningful Use Diagnoses (Choose all that apply): None applicable Discharge Plan Admission Admit Date/Time: 01/09/22 16:31 Primary Reason for Your Visit: Debility, falls Attending Provider: Marii Worthy Primary Care Provider: Jasson England Instructions Additional Instructions / Restrictions: Please note that patient has postural hypotension. He should carefully move from supine to sitting and then standing. He should continue with the FAITH hose stockings. He will follow-up with neurology within 1-2 weeks. Discharge Orders/Prescriptions Prescriptions: New amlodipine 10 mg Tablet 10 mg PO DAILY Qty: 0 RF: 0 fludrocortisone 0.1 mg tablet 0.1 mg PO TID Qty: 90 RF: 0 Continued aspirin [Aspirin Low Dose] 81 mg Tablet,Delayed Release (Dr/Ec) 81 mg PO DAILY RF: 0 atorvastatin 10 mg tablet 10 mg PO DAILY RF: 0 folic acid 1 mg Tablet 1 mg PO DAILY@1200 RF: 0 carbidopa-levodopa 25-100 mg Tablet 0.5 tab PO TID RF: 0 cyanocobalamin (vitamin B-12) 1,000 mcg Capsule 1,000 mcg PO DAILY@1200 RF: 0 pantoprazole 40 mg tablet,delayed release (DR/EC) 40 mg PO DAILY PRN (Reason: GERD) RF: 0 albuterol sulfate [ProAir HFA] 90 mcg/actuation HFA aerosol inhaler 1 inh inhalation Q6H PRN (Reason: shortness of breath or wheezing) Qty: 6.7 RF: 0 clopidogrel [Plavix] 75 mg tablet 75 mg PO DAILY Qty: 90 RF: 3 Discontinued spironolactone 25 mg tablet 25 mg PO DAILY Qty: 30 RF: 11 cefdinir 300 mg capsule 300 mg PO BID Qty: 14 RF: 0 amlodipine 5 mg tablet 5 mg PO DAILY Qty: 90 RF: 3 Referrals / Follow Up: Jasson England MD [Primary Care Provider] - Within 1 Week Disposition Disposition (needs filled in before D/C Order can be placed): [facility] Charges/Coding Visit Charges Inpatient E&M: 49456 Disch Hosp
[2022-01-10 13:00] VITALS: BP 129/65; BP 134/50; BP 92/39; PULSE 58; PULSE 59; PULSE 60
--- NOTE | 2022-01-10 15:52 | PHA.DC.MR ---
Pharmacy Service has performed discharge medication reconciliation for this patient. The patient's discharge medication list was reviewed for discrepancies and discrepancies were resolved. Home Medications aspirin [Aspirin Low Dose] 81 mg PO DAILY 05/26/21 atorvastatin 10 mg PO DAILY 05/26/21 clopidogrel 75 mg tablet 75 mg PO DAILY #90 tab 07/20/21 carbidopa-levodopa 0.5 tab PO TID 10/25/21 cyanocobalamin (vitamin B-12) 1,000 mcg PO DAILY@1200 10/25/21 folic acid 1 mg PO DAILY@1200 10/25/21 pantoprazole 40 mg PO DAILY PRN 10/25/21 albuterol sulfate [ProAir HFA] 1 inh INHALATION Q6H PRN #6.7 g 10/28/21 amlodipine 10 mg PO DAILY #0 tab 01/10/22 fludrocortisone 0.1 mg PO TID #90 tab 01/10/22
--- NOTE | 2022-01-10 16:00 | CASEMGMT ---
Social Work Note DEVANTE faxed completed discharge paperwork to Ely at [facility] including transfer to extended care facility, signed medication list, any scripts, and COVID test/tool. Original in SNF folder and copy on pt's chart. DEVANTE had faxed PAS/RR, PAS/RR results and approval for SNF from [facility] yesterday to [facility]. Original in SNF folder and copy on pt's chart. DEVANTE spoke with RN, pt to transport via wheelchair van. SW accessed trip assist and earliest physician's can transport pt is 7:00pm. Transportation form completed and placed on SNF folder and copy on pt's chart. SW updated RN on transportation time. DEVANTE placed a call to Ely at [facility] and updated her on transportation time. SW in to speak with pt. SW updated pt that he will discharge to [facility] at 7:00pm. Pt states understanding. SW informed pt that this worker will call his daughter to update. Pt states understanding. DEVANTE placed a call to pt's daughter Libia and updated her that pt will discharge to [facility] today at 7:00pm and that pt will get a bill for transportation time. Libia states understanding. Plan: [facility] Skilled today under PAS/RR stay with Physician's transporting pt via cot at 7:00pm Cecilia Downing DARK ROOM ATTENDANT, DENTAL PRACTICE MANAGER
[2022-01-10 19:45] VITALS: BP 149/72; PULSE 60; RESP 18; TEMP 36.8; O2SAT 100
[2022-01-10] MEDS: Atorvastatin Calcium 10 MG Tablet PO (20:09)
[2022-01-10 20:19] VITALS: BP 149/72; PULSE 60; RESP 18; TEMP 36.8; O2SAT 100
== END 2022-01-10 20:19 | disposition skilled nursing facility (03) | DRG 948 ==
LOC: ED 17:41 → MS3 17:51
PROVIDERS: Admitting Provider Student in an Organized Health Care Education/Training Program; Emergency Provider Emergency Medicine; PCP Family Medicine; Visit Provider Internal Medicine
DX: R53.81 Other malaise (principal); I11.0 Hypertensive heart disease with heart failure; G20 Parkinson's disease; F02.80 Dementia in other diseases classified elsewhere, unspecified severity, without behavioral disturbance, psychotic disturbance, mood disturbance, and anxiety; I50.9 Heart failure, unspecified; E11.9 Type 2 diabetes mellitus without complications; J44.9 Chronic obstructive pulmonary disease, unspecified; G31.83 Neurocognitive disorder with Lewy bodies; I95.1 Orthostatic hypotension; E78.5 Hyperlipidemia, unspecified; I25.10 Atherosclerotic heart disease of native coronary artery without angina pectoris; K21.9 Gastro-esophageal reflux disease without esophagitis; R29.6 Repeated falls; Z87.891 Personal history of nicotine dependence; Z79.82 Long term (current) use of aspirin; Z79.02 Long term (current) use of antithrombotics/antiplatelets; Z66 Do not resuscitate; Z79.899 Other long term (current) drug therapy; Z99.81 Dependence on supplemental oxygen
CPT/HCPCS: 36415; 70450; 71045; 73562; 80048; 80053; 81001; 82962; 84484; 85025; 87426; 93005; 97110; 97162; 97166; 97530; 97535; 99285; J7030; J7040; A4216

== ENCOUNTER 2022-01-13 14:13 | Outpatient (CLI) | payer MEDICARE, SELFPAY | END 2022-01-13 23:59 | disposition home or self-care (01) | LOC: PSN 14:14 | PROVIDERS: PCP Family Medicine; Visit Provider Nurse Practitioner | DX: R41.82 Altered mental status, unspecified (principal) | CPT/HCPCS: 95819 ==

== ENCOUNTER 2022-06-25 13:57 | Emergency (ER) | payer MEDICARE, SELFPAY ==
[2022-06-25 13:58] VITALS: BP 111/53; PULSE 57; RESP 16; TEMP 35.6; O2SAT 98; BMI 32.6
--- NOTE | 2022-06-25 14:11 | CT_ITS ---
STUDY: CT CERVICAL SPINE WITHOUT CONTRAST REASON FOR EXAM: Male, 77 years old. Headache after a fall RADIATION DOSAGE (If Supplied By Facility): CTDIvol = ( 31.55 ) mGy, DLP = ( 580.94 ) mGycm TECHNIQUE: High resolution transaxial imaging was performed without contrast material. Sagittal and coronal images were reconstructed. Individualized dose optimization techniques were used for this CT. COMPARISON: None FINDINGS: Normal craniovertebral junction. There are degenerative changes of the anterior atlantoaxial articulation. Normal odontoid process. There is straightening of the normal cervical lordosis. Normal vertebral bodies and posterior osseous elements. C2-3: Normal endplates. Disc space narrowing.. Normal central canal and intervertebral neuroforamina. C3-4: Normal endplates. Disc space narrowing.. Normal central canal and intervertebral neuroforamina. C4-5: Normal endplates. Disc space narrowing.. Normal central canal and intervertebral neuroforamina. C5-6: Normal endplates. Disc space narrowing.. Normal central canal and intervertebral neuroforamina. C6-7: Normal endplates. Disc space narrowing.. Normal central canal and intervertebral neuroforamina. C7-T1: Normal endplates. Disc space narrowing.. Normal central canal and intervertebral neuroforamina. Dense calcifications noted in the common carotid artery bulbs. No suspicious adenopathy, airway narrowing or deviation. Thyroid gland is unremarkable, lung apices are clear CT/Spine Cervical without Contras IMPRESSION: Multilevel degenerative changes, as described above. Electronically Signed: Luis Miguel Pepe MD at 14:47 EDT ,
--- NOTE | 2022-06-25 14:12 | CT_ITS ---
STUDY: CT BRAIN WITHOUT CONTRAST REASON FOR EXAM: Male, 77 years old. Headache after a fall RADIATION DOSAGE (If Supplied By Facility): CTDIvol = ( 44.99 ) mGy, DLP = ( 832.67 ) mGycm TECHNIQUE: Transaxial CT imaging of the brain was performed without administration of intravenous contrast material. Individualized dose optimization techniques were used for this CT. COMPARISON: 01/05/2022 FINDINGS: Left occipital scalp hematoma without skull fracture. There is moderate cerebral atrophy with widening of the extra-axial spaces and ventricular dilatation. There are areas of decreased attenuation within the white matter tracts of the supratentorial brain, consistent with microvascular disease changes. Normal basal ganglia and thalami. Normal brainstem. There is mild cerebellar atrophy. There is no intracranial hemorrhage. There are no findings of an acute ischemic infarction. Normal visualized paranasal sinuses. CT/Brain/Head without Contrast IMPRESSION: Chronic involutional changes of the brain. No acute intracranial hemorrhage Left occipital scalp hematoma without skull fracture Electronically Signed: Luis Miguel Pepe MD at 14:43 EDT ,
--- NOTE | 2022-06-25 14:13 | EX.ED.DYSGE1 ---
HPI <DEEJAY Lo - Last Filed: 06/25/22 15:05> History of Present Illness Chief Complaint: Fall Narrative Narrative: 77-year-old male with history of CAD, CHF, hypertension presents to the [facility] with mechanical fall, head injury. Patient states he was sitting on a chair, the chair slid back and he struck his head he is unsure but on the chair on the concrete floor. Patient denies any LOC. Patient is currently not on any blood thinning medicine. Patient does have a laceration to the posterior scalp. Patient's tetanus vaccination is unsure when his last one was. Patient is acting appropriate. Patient has no other injuries. PFS <DEEJAY Lo - Last Filed: 06/25/22 15:05> [facility] Medical History Acute respiratory failure with hypoxia Altered mental status Anemia Anemia Anxiety Atherosclerotic heart disease of [place] coronary artery without angina pectoris Atrial fibrillation Back pain Chest pain CHF (congestive heart failure) Congestive heart failure (CHF) COPD exacerbation Coronary artery disease Degenerative disc disease, lumbar Degenerative disk disease Delirium Diabetes Essential hypertension Former smoker GERD (gastroesophageal reflux disease) Hallucinations HLD (hyperlipidemia) Hypertension Hypertensive urgency Hypoxia Lower extremity edema Macrocytic anemia On home oxygen therapy Orthostatic hypotension Parkinson's disease Presence of stent in coronary artery (~05/12/21) Short-term memory loss Syncope Vertigo Home Medications aspirin 81 mg tablet,delayed release (Bertin Low Dose Aspirin) 81 mg PO DAILY HEART HEALTH 05/26/21 [History Last Taken 01/01/22] cyanocobalamin (vitamin B-12) 1,000 mcg capsule 1,000 mcg PO DAILY@1200 10/25/21 [History Last Taken 01/01/22] folic acid 1 mg tablet 1 mg PO DAILY@1200 10/25/21 [History Last Taken 01/01/22] pantoprazole 40 mg tablet,delayed release 40 mg PO DAILY PRN GERD 10/25/21 [History Last Taken Unknown] albuterol sulfate 90 mcg/actuation aerosol inhaler (ProAir HFA) 1 inh inhalation Q6H PRN shortness of breath or wheezing #6.7 grams 10/28/21 [Rx Last Taken Unknown] atorvastatin 20 mg tablet 20 mg PO QHS 02/20/22 [History Last Taken Unknown] lisinopril 20 mg tablet 20 mg PO BID #180 tabs 03/01/22 [Rx Last Taken Unknown] amlodipine 5 mg tablet 10 mg PO DAILY #0 tabs 03/08/22 [Rx Last Taken Unknown] fludrocortisone 0.1 mg tablet 0.1 mg PO DAILY #90 tabs 06/06/22 [Rx Last Taken Unknown] Allergy/AdvReac Type Severity Reaction Status Date / Time No Known Allergies Allergy Verified 06/25/22 13:58 Surgical History History of coronary artery stent placement Presence of coronary angioplasty implant and graft (~05/12/21) Social History household members: spouse Smoking Status: Former smoker alcohol intake: never substance use type: does not use ROS <DEEJAY Lo - Last Filed: 06/25/22 15:05> ROS ED ROS Narrative Constitutional: Negative for fever, chills, weight loss, weakness Eyes: Negative for vision loss, vision change, double vision ENT: Negative for any sore throat, ear pain, congestion Cardiovascular: Negative for any chest pain, tightness, palpitations Respiratory: Negative for any cough, sputum production, hemoptysis, dyspnea, dyspnea on exertion, orthopnea Gastrointestinal: Negative for any abdominal pain, nausea, vomiting, diarrhea, constipation, blood in stool, blood in vomit : Negative for any urinary frequency, dysuria, retention, blood in urine Muscle skeletal: Negative for any muscle joint pain, stiffness, myalgias, arthralgias, neck pain, back pain Neurological: Negative for any syncope, numbness or tingling. Positive for headache, dizziness Skin: Negative for any rashes, lumps, itching, abrasions. Positive laceration Psychiatric: Negative for any depression, anxiety, stress, suicidal ideation, homicidal ideation Hematologic: Negative for any easy bruising, excessive bruising, easy bleeding Allergies: Negative for any eczema, hives, rash EXAM <DEEJAY Lo - Last Filed: 06/25/22 15:05> Physical Exam Narrative Exam Narrative: Vital signs reviewed. HEET: Head normocephalic atraumatic, TMs clear bilaterally. Posterior pharynx is clear, moist mucous membranes. Nares clear bilaterally. Pupils are equal round react to light. Negative for hematemesis, negative for any septal hematoma. Patient does have pain to the occiput, patient does have a hematoma with a 2 cm horizontal laceration Neck: Supple with no lymphadenopathy or tenderness. No signs of meningismus, negative jolt sign. Cardiac: Regular rate and rhythm no murmurs gallops or rubs, equal peripheral pulses bilaterally. Respiratory: Lungs clear to auscultation bilaterally. No chest tenderness. Abdomen: Soft, nontender, nondistended. No abdominal bruit or pulsatile masses. No hepatosplenomegaly Extremities: No peripheral edema, no signs of gross trauma or deformity. Active full range of motion of all extremities. Neuro: Cranial nerves II through XII intact, no focal neurological deficits. Skin: Clean dry and intact with no rash, purpura, petechiae, vesicles or pustules. Backs/flank: No CVA tenderness, no midline spinal tenderness, no deformity. Psych: Normal mood and affect. No SI, HI or acute psychosis. Const Vital Signs: 06/25/22 13:58 06/25/22 15:16 Temperature 96.1 F L Temperature Source Temporal Pulse Rate 57 L 53 L Respiratory Rate 16 14 Blood Pressure 111/53 L 116/53 L Blood Pressure Mean 72 74 Pulse Ox 98 100 Oxygen Delivery Method Room Air Room Air <Dr. Richmond Alejo MD - Last Filed: 06/25/22 18:49> Physical Exam Const Vital Signs: 06/25/22 13:58 06/25/22 15:16 Temperature 96.1 F L Temperature Source Temporal Pulse Rate 57 L 53 L Respiratory Rate 16 14 Blood Pressure 111/53 L 116/53 L Blood Pressure Mean 72 74 Pulse Ox 98 100 Oxygen Delivery Method Room Air Room Air [facility] <DEEJAY Lo - Last Filed: 06/25/22 15:05> MDM Radiography Diagnostic Testing: Clinical Impression(s) from Imaging Studies Cervical Spine CT 06/25/22 14:11 IMPRESSION: Multilevel degenerative changes, as described above. Electronically Signed: Luis Miguel Pepe MD at 14:47 EDT Reading Location ID and State: [facility] / [place] , Service support , Brain CT 06/25/22 14:12 IMPRESSION: Chronic involutional changes of the brain. No acute intracranial hemorrhage Left occipital scalp hematoma without skull fracture Electronically Signed: Luis Miguel Pepe MD at 14:43 EDT , Treatment and Re-Evaluation Narrative: Patient appears well, patient appears nontoxic, vital signs stable. Patient presents the [facility] with complaints of a fall, laceration to the occiput. Patient did receive CT scans of the cervical spine as well as the brain. These CAT scans were negative for any acute intracranial abnormality, no acute cervical fracture. Patient does have a 2 cm horizontal laceration to the left occiput. This wound was irrigated, anesthetized with lidocaine with epinephrine. I was able to place 3 simple samuel to the area, edges approximated nicely. Patient is stable patient to have these removed in 7 days. <Dr. Richmond Alejo MD - Last Filed: 06/25/22 18:49> MDM Radiography Diagnostic Testing: Clinical Impression(s) from Imaging Studies Cervical Spine CT 06/25/22 14:11 IMPRESSION: Multilevel degenerative changes, as described above. Electronically Signed: Luis Miguel Pepe MD at 14:47 EDT , Brain CT 06/25/22 14:12 IMPRESSION: Chronic involutional changes of the brain. No acute intracranial hemorrhage Left occipital scalp hematoma without skull fracture Electronically Signed: Luis Miguel Pepe MD at 14:43 EDT , Treatment and Re-Evaluation Narrative: Patient appears well, patient appears nontoxic, vital signs stable. Patient presents the [facility] with complaints of a fall, laceration to the occiput. Patient did receive CT scans of the cervical spine as well as the brain. These CAT scans were negative for any acute intracranial abnormality, no acute cervical fracture. Patient does have a 2 cm horizontal laceration to the left occiput. This wound was irrigated, anesthetized with lidocaine with epinephrine. I was able to place 3 simple samuel to the area, edges approximated nicely. Patient is stable patient to have these removed in 7 days. Attending: Patient had a mechanical fall, he hit his head. On evaluation he has a 2 cm laceration. This was stapled by the PA, he is neurologically intact he appears well and his CTs are normal. I believe he can be safely discharged home Procedures <DEEJAY Lo - Last Filed: 06/25/22 15:05> Lacerations Scalp laceration: Length: 0.79 in Depth: Skin Shape: Linear Prep: Sterile Conditions and Shure-Clens Laceration repair: Irrigated and Lidocaine with epi Irrigated (ml): 250 Number of Sutures/Samuel: 3 Discharge Plan Triage Chief Complaint: Fall ED Midlevel Provider: Richmond Martins ED Provider: Richmond Alejo Dx/Rx/DC Orders Clinical Impression: Fall, CHI (closed head injury), Laceration of scalp Instructions: After a Concussion, ED Head Injury (Adult), ED Laceration Scalp Stitches or Samuel Prescriptions: No Action aspirin [Bertin Low Dose Aspirin] 81 mg Tablet,Delayed Release (Dr/Ec) 81 mg PO DAILY folic acid 1 mg Tablet 1 mg PO DAILY@1200 cyanocobalamin (vitamin B-12) 1,000 mcg Capsule 1,000 mcg PO DAILY@1200 pantoprazole 40 mg tablet,delayed release (DR/EC) 40 mg PO DAILY PRN (Reason: GERD) albuterol sulfate [ProAir HFA] 90 mcg/actuation HFA aerosol inhaler 1 inh inhalation Q6H PRN (Reason: shortness of breath or wheezing) Qty: 6.7 0RF atorvastatin 20 mg tablet 20 mg PO QHS lisinopril 20 mg tablet 20 mg PO BID Qty: 180 3RF amlodipine 5 mg tablet 10 mg PO DAILY Qty: 0 0RF fludrocortisone 0.1 mg tablet 0.1 mg PO DAILY Qty: 90 3RF Primary Care Provider: Jasson England Referrals: Jasson England MD [Primary Care Provider] - Disposition Disposition: Home, Self Care Discharge Date/Time: 06/25/22 15:17
[2022-06-25] MEDS: Lidocaine 1% /Epi 1:100 (20ml) 20 ML Vial INFILT (14:34)
[2022-06-25 15:16] VITALS: BP 116/53; PULSE 53; RESP 14; O2SAT 100
== END 2022-06-25 15:17 | disposition home or self-care (01) ==
PROVIDERS: Emergency Provider Emergency Medicine; PCP Family Medicine; Visit Provider Emergency Medicine
DX: S01.01XA Laceration without foreign body of scalp, initial encounter (principal); G20 Parkinson's disease; J44.9 Chronic obstructive pulmonary disease, unspecified; I11.0 Hypertensive heart disease with heart failure; I50.9 Heart failure, unspecified; E11.9 Type 2 diabetes mellitus without complications; I25.10 Atherosclerotic heart disease of native coronary artery without angina pectoris; E78.5 Hyperlipidemia, unspecified; K21.9 Gastro-esophageal reflux disease without esophagitis; M51.36 Other intervertebral disc degeneration, lumbar region; W07.XXXA Fall from chair, initial encounter; Z99.81 Dependence on supplemental oxygen; Z95.5 Presence of coronary angioplasty implant and graft; Z79.82 Long term (current) use of aspirin; Z79.899 Other long term (current) drug therapy; Z87.891 Personal history of nicotine dependence
CPT/HCPCS: 12001; 70450; 72125; 90715; 99282

== ENCOUNTER → 2022-08-09 | Outpatient (CLI) | payer MEDICARE, SELFPAY ==
[2022-08-09 16:40] LABS: Absolute Lymphocyte Count 1.79 X10^3/uL (0.83-4.51); Absolute Neutrophil Count 5.8 X10^3/uL (2.0-7.7); Basophil# 0.06 X10^3/uL; Basophil% 0.7 % (0-1); Eosinophil# 0.93 X10^3/uL; Eosinophils% 10.1 % (0-5); Hematocrit 31.1 % (40-54); Hemoglobin 9.9 g/dL (13.0-16.5); Lymphocyte # 1.79 X10^3/ul (0.83-4.51); Lymphocyte % 19.4 % (19-41); Mean Corp Hgb Conc 31.8 g/dL (32-36); Mean Corpuscular Hgb 31.5 pg (27.0-32.0); Mean Platelet Vol. 10.4 fl (6.2-12.0); Monocyte# 0.62 X10^3/uL; Monocyte% 6.7 % (0-10); NRBC Flagged by Analyzer 0 % (0-5); Neutrophil # 5.81 X10^3/uL (2.7-7.7); Neutrophil % 62.9 % (47-70); Platelet Count 186 K/mm3 (150-450); RBC Distribution Width CV 14.5 % (11.6-14.6); RBC Distribution Width SD 52.1 fl (35.1-43.9); Red Blood Count 3.14 M/mm3 (4.6-6.2); White Blood Count 9.2 K/mm3 (4.4-11.0)
[2022-08-09 16:59] LABS: Anion Gap 5 (5-15); BUN 33 mg/dL (7-18); BUN/Creat Ratio 27.5 RATIO (10-20); Calcium,Total 8.9 mg/dL (8.5-10.1); Chloride 110 mmol/L (98-107); EST Glomerular Filtration Rate 62 mL/min (>60); Est Glom Filt Rate - Afr Amer 75 mL/min (>60); Glucose 91 mg/dL (74-106); Potassium 4.3 mmol/L (3.5-5.1); Sodium Level 139 mmol/L (136-145); Thyroid Stim Hormone (TSH) 0.44 uIU/mL (0.358-3.74)
== END | disposition home or self-care (01) ==
PROVIDERS: PCP Family Medicine; Visit Provider Nurse Practitioner Gerontology
DX: R53.83 Other fatigue (principal)
CPT/HCPCS: 36415; 80048; 84443; 85025

== ENCOUNTER → 2023-04-30 | Outpatient (CLI) | payer MEDICARE, SELFPAY | END | disposition home or self-care (01) | LOC: CVS 13:46 | PROVIDERS: PCP Family Medicine; Referring Provider Nurse Practitioner Family; Visit Provider Nurse Practitioner Family | DX: R03.0 Elevated blood-pressure reading, without diagnosis of hypertension (principal) | CPT/HCPCS: 93788 ==

== ENCOUNTER 2023-10-01 18:25 | Observation (INO) | payer MEDICARE, SELFPAY ==
[2023-10-01 18:29] VITALS: BP 150/55; PULSE 54; RESP 20; TEMP 36.4; O2SAT 97; BMI 32.8
--- NOTE | 2023-10-01 18:44 | CT_ITS ---
INDICATION: head injury EXAMINATION: CT BRAIN - CT Head or Brain W/O Contrast Injection TECHNIQUE: Multiple axial images were obtained of the head without intravenous contrast. A radiation dose optimization technique was used for this scan. IV Contrast dosage and agent: None. RADIATION DOSAGE (If Supplied By Facility): CTDIvol = ( 44.99 ) mGy, DLP = ( 796.11 ) mGycm COMPARISON: 06/25/2022 FINDINGS: HEMISPHERES: 1. The cerebral parenchyma, ventricular system, subarachnoid spaces have normal configuration and density. There is a normal gyral pattern. There is normal aggarwal/white differentiation. No midline shift.. 2. Mild involutional changes, hemispheric white matter has normal appearance. 3. No intraparenchymal mass, hemorrhage, or acute territorial infarct. CEREBELLUM - BRAINSTEM: The cerebellum, brainstem, basilar and suprasellar cisterns have normal appearance. No Chiari malformation. PITUITARY: Infundibulum and pituitary have normal configuration. Midline structures appear normal. CSF SPACES: Appropriate for age. No hydrocephalus. Basal cisterns are patent. VESSELS: 1. Extensive carotid vascular calcifications. 2. No hyperdense vascular signs noted.. ORBITS AND PARANASAL SINUSES: 1. Normal appearance of the bony orbits. Normal appearance of the globes and retrobulbar soft tissues.. 2. Ethmoid mucosal thickening is present. BONY ELEMENTS: Bony elements of the cranial vault, facial skeleton and skull base have normal appearance. SCALP AND SOFT TISSUES: Normal appearance of the soft tissues of the scalp and the visualized face OTHER: None ASPECTS Score for Acute Strokes: 10 CT/Brain/Head without Contrast IMPRESSION: 1. Stable exam. 2. No intracranial evidence of acute traumatic injury. 3. Mild involutional changes. 4. No intracranial mass, hemorrhage or acute territorial infarct. 5. No fractures noted. 6. No radiographically significant sinus disease.. Electronically Signed: Diogo Whipple MD at 20:23 EST ,
--- NOTE | 2023-10-01 18:45 | EDS_ITS ---
HPI HPI - Fall History of Present Illness Chief Complaint: Fall Informant: patient Narrative Narrative: Presents by EMS for evaluation after a fall while sitting at the kitchen table. He was watching TV when he dozed off falling down. He woke up right before he hit the ground blocking his fall and head. He did slightly bump his head. However unable to get up he called his daughter who called EMS. They stood him up he felt weak therefore he was brought here. States prior to that he was able to walk with his walker for which she is use for last 4 years. He states he had cough for weeks now no fevers. No chest pains. No recent vomiting or diarrhea. No urinary symptoms. He lives alone. Denies any pain anywhere from the fall. [facility] Medical History Acute respiratory failure with hypoxia Altered mental status Anemia Anemia Anxiety Atherosclerotic heart disease of [place] coronary artery without angina pectoris Atrial fibrillation Back pain Chest pain CHF (congestive heart failure) Congestive heart failure (CHF) COPD exacerbation Coronary artery disease Degenerative disc disease, lumbar Degenerative disk disease Delirium Diabetes Essential hypertension Former smoker GERD (gastroesophageal reflux disease) Hallucinations HLD (hyperlipidemia) Hypertension Hypertensive urgency Hypoxia Lower extremity edema Macrocytic anemia On home oxygen therapy Orthostatic hypotension Parkinson's disease Presence of stent in coronary artery (~05/12/21) Short-term memory loss Syncope Vertigo Home Medications pantoprazole 40 mg tablet,delayed release 40 mg PO DAILY PRN GERD 10/25/21 [History Last Taken Unknown] amlodipine 10 mg tablet 10 mg PO DAILY 03/26/23 [History Last Taken Unknown] aspirin 81 mg tablet,delayed release (Bertin Low Dose Aspirin) 81 mg PO .3x/wk HEART HEALTH 08/16/23 [History Last Taken Unknown] atorvastatin 20 mg tablet 20 mg PO QHS #90 tabs 08/16/23 [Rx Last Taken Unknown] lisinopril 10 mg tablet 20 mg PO BID 08/16/23 [History Last Taken Unknown] Allergy/AdvReac Type Severity Reaction Status Date / Time No Known Allergies Allergy Verified 08/16/23 14:09 Surgical History History of coronary artery stent placement Presence of coronary angioplasty implant and graft (~05/12/21) Social History household members: spouse Smoking Status: Former smoker alcohol intake: never substance use type: does not use ROS ROS ED Constitutional Constitutional ED: Denies chills, fever(s) or sweats Eyes Eyes: Denies change in vision ENT ENT ED: Denies dysphagia or sore throat Cardiovascular Cardiovascular: Denies chest pain, leg edema, palpitations or racing heartbeat Respiratory/Chest Respiratory/Chest: Denies cough, dyspnea or dyspnea on exertion Gastrointestinal Gastrointestinal: Denies abdominal pain, diarrhea, nausea or vomiting Genitourinary Genitourinary ED: Denies dysuria, hematuria or urinary frequency Musculoskeletal Musculoskeletal: Denies back pain, extremity pain or neck pain Integumentary Denies rash or wounds Neurologic Neurologic: Reports weakness; Denies headache(s) or paresthesias EXAM Physical Exam Const Vital Signs: 10/01/23 18:29 10/01/23 20:31 10/01/23 21:08 Temperature 97.6 F L Temperature Source Oral Pulse Rate 54 L 56 L 62 Respiratory Rate 20 H 15 14 Respiratory Pattern Blood Pressure 150/55 H 154/74 H 146/62 H Blood Pressure Mean 86 100 90 Pulse Ox 97 98 Oxygen Delivery Method Room Air 10/01/23 20:43 Temperature Temperature Source Pulse Rate 58 L Respiratory Rate 16 Respiratory Pattern Normal Blood Pressure Blood Pressure Mean Pulse Ox Oxygen Delivery Method Positive well nourished and well developed Constitutional Narrative: GCS 15 General Appearance ED: well developed and NAD HEENT Reports moist mucous membranes normocephalic and atraumatic Eyes PERRL, EOMs intact bilaterally and conjunctivae normal General Eye ED: Yes normal appearance of both eyes Neck no lymphadenopathy and supple General: Negative for tenderness Chest Wall inspection of chest normal; Negative for palpation of chest normal Chest: Negative for tenderness Resp normal respiratory effort and normal air movement Effort and Inspection: symmetric chest movement; Negative for respiratory distress Cardio regular rate, regular rhythm and no murmurs Peripheral Pulses: pulses 2+ throughout GI normal to inspection, nondistended, normoactive bowel sounds and non-tender Palpation: Negative for guarding or rebound tenderness present Back/Spine no CVA tenderness and no thoracic nor lumbar tenderness Extremity normal to inspection Extremity Narrative: Negative logroll lower extremities. General Extremety ED: Negative for edema or tenderness General Extremity: Negative for edema Neuro oriented x3, CN's II-XII intact bilaterally and no sensory deficits noted Sensorium / Orientation: awake and alert Skin no rashes or lesions noted and no wounds MDM MDM MDM Narrative Medical decision making narrative: Interventions / MDM: Differential diagnosis: Weakness, viral syndrome Diagnosis considered but do not suspect: Pneumonia however x-ray negative, intracranial hemorrhage however CT negative My EKG interpretation: Sinus rate of 58, no ST or T wave changes, first-degree AV block. Imaging independently reviewed and interpreted by myself: CT brain: No acute process. Is. Two-view chest x-ray: No acute process External documents reviewed: N/A Test considered but not ordered:N/A ED course: Patient with a fall, since then feels weak. He did hit his head. D enies any other injuries. He needed assistance. Head scan ordered, labs to rule out any infectious findings along with chest x-ray with his cough. EKG is sinus rhythm. 2034: Labs stable anemia hemoglobin 9.4, creatinine 1.3 slightly elevated from his previous of 1.2. Urine was negative. Two-view chest x-ray interpreted by myself shows no infiltrates. patient has a wheezing on reevaluation. Aerosol treatment ordered. He states he has been coughing for over a month. He is not hypoxic. Attempted ambulation earlier by nursing, he needed assistance just standing bedside. Due to weakness, will discuss with hospital service for admission. I spoke with hospitalist for admission. Due to admission added COVID and influenza. Results did return negative. Re-evaluation: stable Disposition discussed with patient/family/significant other: Patient Case discussed with consulting clinician: Hospitalist This note was generated with [employer] dictation software. It may contain incorrect words, spelling, and punctuation that were not noted in checking the note before signing. Lab Data Attestation: I reviewed the patient's lab results. Labs: Laboratory Results - last 24 hr 10/01/23 10/01/23 18:53 19:40 WBC 7.3 RBC 2.94 L Hgb 9.4 L Hct 29.0 L MCV 98.6 H MCH 32.0 MCHC 32.4 RDW Std Deviation 51.6 H RDW Coeff of Sophie 14.3 Plt Count 165 MPV 10.1 Immature Gran % (Auto) 0.300 Neut % (Auto) 72.5 H Lymph % (Auto) 12.7 L [place] % (Auto) 9.8 Eos % (Auto) 4.2 Baso % (Auto) 0.5 Absolute Neuts (auto) 5.3 Absolute Lymphs (auto) 0.93 Nucleated RBC % 0 Sodium 140 Potassium 4.4 Chloride 110 H Carbon Dioxide 27.0 Anion Gap 3 L BUN 32 H Creatinine 1.35 H Estim Creat Clear Calc 44.37 Est GFR (MDRD) Af Amer 66 Est GFR (MDRD) Non-Af 54 L BUN/Creatinine Ratio 23.7 H Glucose 104 Calcium 8.7 Urine Color Yellow Urine Clarity Clear Urine pH 5.0 Ur Specific [place] 1.015 Urine Protein 30 H Urine Glucose (UA) Normal Urine Ketones Negative Urine Occult Blood 10 H Urine Nitrite Negative Urine Bilirubin Negative Urine Urobilinogen Normal Ur Leukocyte Esterase Negative Urine RBC 0 SEEN Urine WBC 0-5 SEEN Ur Squamous Epith Cells 0 SEEN Urine Bacteria 0 SEEN Urine Mucus 0 SEEN Radiography Diagnostic Testing: Clinical Impression(s) from Imaging Studies Brain CT 10/01/23 18:44 IMPRESSION: 1. Stable exam. 2. No intracranial evidence of acute traumatic injury. 3. Mild involutional changes. 4. No intracranial mass, hemorrhage or acute territorial infarct. 5. No fractures noted. 6. No radiographically significant sinus disease.. Electronically Signed: Diogo Whipple MD at 20:23 EST , Chest X-Ray 10/01/23 19:20 IMPRESSION: 1. No evidence of acute cardiopulmonary process Electronically Signed: Diogo Whipple MD at 20:37 EST , Discharge Plan Dx/Rx/DC Orders Clinical Impression: URI (upper respiratory infection), Anemia, CHI (closed head injury), Cough, Weakness Disposition Disposition: Acute Care Hospital [facility] Discharge Date/Time: 10/01/23 21:45
--- OUTSIDE RECORDS SUMMARY | 2023-10-01 18:55 | XMS RPT_ITS | CCD ---
Author Name Unknown Address [address] [place] [address] Organization [facility] Care Team Providers Care Business Support Professional Name Role Phone Jasson Bright MD Primary Care Provider [phone] JASSON BRIGHT Attending Unavailable THAO MENCHACA Referring Unavailable JASSON BRIGHT Primary Care Unavailable THAO MENCHACA Attending Unavailable JASSON BRIGHT Primary Care Unavailable JASSON BRIGHT Primary Care Unavailable TESTBLAKE THURSTON Attending Unavailable BLAKE BROWN Referring Unavailable JASSON BRIGHT Primary Care Unavailable JASSON BRIGHT Referring Unavailable JASSON BRIGHT Primary Care Unavailable TESTBLAKE THURSTON Attending Unavailable TESTBLAKE THURSTON Referring Unavailable JASSON BRIGHT Primary Care Unavailable JASSON BRIGHT Referring Unavailable JASSON BRIGHT Primary Care Unavailable JASSON BRIGHT Attending Unavailable JASSON BRIGHT Primary Care Unavailable JASSON BRIGHT Referring Unavailable JASSON BRIGHT Primary Care Unavailable Allergies Allergy Classification Reported Allergen(s) Allergy Type Date of Onset Reaction(s) Facility (20 sources) Cat; Translations: [CATS] Propensity to adverse reactions 06-25-2013 Cough [facility] Work Phone: Medications Current Medications Medication Drug Class(es) Dates Sig (Normalized) Sig (Original) amoxicillin 875 mg oral tablet (1 source) Penicillin-class Antibacterial Start: 09-29-2022 End: 10-06-2022 take 1 tablet by mouth twice daily amoxicillin (AMOXIL) 875 mg tablet Take 1 tablet by mouth twice daily for 7 days. 14 tablet 0 09/29/2022 10/06/2022 Active Completed/Discontinued Medications Medication Drug Class(es) Dates Sig (Normalized) Sig (Original) 8 hr acetaminophen 650 mg extended release oral tablet (20 sources) Start: 05-24-2020 take 2 tablets by mouth every twelve hours as needed acetaminophen (TYLENOL 8 HOUR) 650 mg CR tablet Take 2 tablets by mouth twice daily as needed for Pain. 0 05/24/2020 Active Problems Active Problems Problem Classification Problem Date Documented Date Episodic/Chronic Anxiety disorders (20 sources) Anxiety about body function or health; Translations: [Other specified anxiety disorders] Onset: 08-21-2015 02-02-2021 Chronic Blindness and vision defects (3 sources) Visual hallucinations; Translations: [Visual hallucinations] Episodic Cardiac dysrhythmias (1 source) Atrial fibrillation; Translations: [Unspecified atrial fibrillation] Chronic Chronic obstructive pulmonary disease and bronchiectasis (1 source) Emphysematous bronchitis; Translations: [Chronic obstructive pulmonary disease, unspecified] Chronic Congestive heart failure; nonhypertensive (20 sources) Chronic diastolic heart failure; Translations: [Chronic diastolic (congestive) heart failure] Onset: 11-04-2021 11-04-2021 Chronic Coronary atherosclerosis and other heart disease (20 sources) Coronary atherosclerosis; Translations: [Atherosclerotic heart disease of [place] coronary artery without angina pectoris] Onset: 05-19-2021 10-18-2021 Chronic Deficiency and other anemia (20 sources) Anemia of chronic disease; Translations: [Anemia in other chronic diseases classified elsewhere] Onset: 06-13-2016 02-02-2021 Chronic Deficiency and other anemia (1 source) Anemia in other chronic diseases classified elsewhere; Translations: [Anemia of chronic disease] Onset: 03-13-2022 Chronic Deficiency and other anemia (14 sources) Anemia; Translations: [Anemia, unspecified] Onset: 07-13-2021 07-13-2021 Episodic Delirium, dementia, and amnestic and other cognitive disorders (1 source) Alzheimer's disease; Translations: [Alzheimer's disease, unspecified] Chronic Diabetes mellitus without complication (20 sources) Type 2 diabetes mellitus without complication; Translations: [Type 2 diabetes mellitus without complications] Onset: 05-25-2016 02-02-2021 Chronic Disorders of lipid metabolism (20 sources) Mixed hyperlipidemia; Translations: [Mixed hyperlipidemia] Onset: 10-23-2016 02-02-2021 Chronic E Codes: Fall (2 sources) Fall; Translations: [Unspecified fall, subsequent encounter] Episodic Esophageal disorders (20 sources) Gastroesophageal reflux disease without esophagitis; Translations: [Gastro-esophageal reflux disease without esophagitis] Onset: 10-23-2008 02-02-2021 Chronic Essential hypertension (20 sources) Benign essential hypertension; Translations: [Essential (primary) hypertension] Onset: 10-23-2008 02-02-2021 Chronic Headache; including migraine (20 sources) Chronic tension-type headache; Translations: [Chronic tension-type headache, not intractable] Onset: 06-29-2015 02-02-2021 Chronic Hyperplasia of prostate (20 sources) Benign prostatic hypertrophy with outflow obstruction; Translations: [Benign prostatic hyperplasia with lower urinary tract symptoms] Onset: 07-15-2012 02-02-2021 Chronic Hypertension with complications and secondary hypertension (1 source) Hypertensive heart disease with congestive heart failure; Translations: [Hypertensive heart disease with heart failure] Chronic Immunizations and screening for infectious disease (1 source) Needs influenza immunization; Translations: [Encounter for immunization] Episodic Mycoses (3 sources) Onychomycosis; Translations: [Tinea unguium] Episodic Nutritional deficiencies (12 sources) Malnutrition (calorie); Translations: [Moderate protein-calorie malnutrition] Onset: 08-22-2021 08-26-2021 Chronic Occlusion or stenosis of precerebral arteries (20 sources) Bilateral stenosis of carotid arteries; Translations: [Occlusion and stenosis of bilateral carotid arteries] Onset: 02-04-2021 02-04-2021 Chronic Open wounds of extremities (1 source) Open wound of toe; Translations: [Unspecified open wound of unspecified toe(s) without damage to nail, initial encounter] Episodic Other circulatory disease (1 source) Abnormal peripheral pulse; Translations: [Other specified symptoms and signs involving the circulatory and respiratory systems] Episodic Other connective tissue disease (1 source) Falls; Translations: [Repeated falls] Episodic Other connective tissue disease (3 sources) Pain in left foot; Translations: [Pain in left foot] Episodic Other connective tissue disease (3 sources) Pain of toe of right foot; Translations: [Pain in right toe(s)] Episodic Other ear and sense organ disorders (12 sources) Bilateral hearing loss; Translations: [Unspecified hearing loss, bilateral] Onset: 02-01-2023 Chronic Other ear and sense organ disorders (1 source) Otalgia, left ear; Translations: [Otalgia, unspecified] Episodic Other eye disorders (1 source) Disorder of eye; Translations: [Unspecified disorder of eye and adnexa] Episodic Other lower respiratory disease (2 sources) Hypoxia; Translations: [Hypoxemia] 05-17-2023 Episodic Other lower respiratory disease (1 source) Hypoxemia; Translations: [Hypoxia] Onset: 05-28-2023 Episodic Other nervous system disorders (1 source) Abnormal gait; Translations: [Unspecified abnormalities of gait and mobility] Episodic Other nutritional; endocrine; and metabolic disorders (20 sources) Body mass index 40+ - severely obese; Translations: [Morbid (severe) obesity due to excess calories] Onset: 02-06-2014 02-02-2021 Chronic Other skin disorders (2 sources) Ingrowing toenail; Translations: [Ingrowing nail] Episodic Otitis media and related conditions (1 source) Acute left otitis media; Translations: [Otitis media, unspecified, left ear] Episodic Parkinson`s disease (20 sources) Parkinson's disease; Translations: [Parkinson's disease] Onset: 10-18-2021 10-18-2021 Chronic Residual codes; unclassified (2 sources) Altered mental status; Translations: [Altered mental status, unspecified] Episodic Spondylosis; intervertebral disc disorders; other back problems (20 sources) Degeneration of lumbar intervertebral disc; Translations: [Other intervertebral disc degeneration, lumbar region] Onset: 10-23-2008 02-02-2021 Chronic Spondylosis; intervertebral disc disorders; other back problems (1 source) Chronic low back pain; Translations: [Chronic midline low back pain without sciatica] Episodic Substance-related disorders (20 sources) Smoker; Translations: [Nicotine dependence, unspecified, uncomplicated] Onset: 02-02-2021 11-10-2021 Chronic Past or Other Problems Problem Classification Problem Date Documented Da te Episodic/Chronic Administrative/social admission (12 sources) Advance directive discussed with patient; Translations: [Other specified counseling] Onset: 02-01-2023 Episodic Conditions associated with dizziness or vertigo (20 sources) Benign paroxysmal positional vertigo; Translations: [Benign paroxysmal vertigo, unspecified ear] Onset: 07-01-2015 02-02-2021 Episodic Diseases of mouth; excluding dental (20 sources) Dribbling from mouth; Translations: [Disturbances of salivary secretion] Onset: 01-17-2021 01-17-2021 Episodic Nutritional deficiencies (20 sources) Serum vitamin B12 low; Translations: [Deficiency of other specified B group vitamins] Onset: 08-16-2021 08-16-2021 Episodic Other aftercare (20 sources) Patient care statuses; Translations: [Encounter for palliative care] Onset: 02-12-2022 02-12-2022 Episodic Other aftercare (20 sources) Patient encounter status; Translations: [Other jail (current) drug therapy] Onset: 02-17-2022 Episodic Other aftercare (1 source) Other roasterman (current) drug therapy; Translations: [Medication management] Onset: 02-17-2022 Episodic Other and unspecified benign neoplasm (20 sources) Benign neoplasm of rectum and anal canal; Translations: [Benign neoplasm of rectum] Onset: 06-12-2017 02-02-2021 Episodic Other and unspecified benign neoplasm (20 sources) Benign neoplasm of stomach; Translations: [Benign neoplasm of stomach] Onset: 06-12-2017 02-02-2021 Episodic Other circulatory disease (20 sources) Orthostatic hypotension; Translations: [Orthostatic hypotension] Onset: 05-13-2018 05-13-2018 Episodic Other circulatory disease (20 sources) Labile blood pressure; Translations: [Other disorder of circulatory system] Onset: 02-02-2021 02-02-2021 Episodic Other gastrointestinal disorders (20 sources) Chronic constipation; Translations: [Other constipation] Onset: 09-01-2009 02-02-2021 Episodic Other male genital disorders (20 sources) Disorder of prostate; Translations: [Disorder of prostate, unspecified] Onset: 02-17-2022 Episodic Other male genital disorders (1 source) Disorder of prostate, unspecified; Translations: [Prostate disorder] Onset: 02-17-2022 Episodic Other nervous system disorders (20 sources) Impairment of balance; Translations: [Other abnormalities of gait and mobility] Onset: 02-02-2021 02-02-2021 Episodic Other non-epithelial cancer of skin (20 sources) 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; Translations: [Unspecified malignant neoplasm of skin of unspecified upper limb, including shoulder] Onset: 06-12-2017 02-02-2021 Episodic Other skin disorders (20 sources) Ingrowing nail; Translations: [Ingrowing nail] Onset: 11-23-2020 11-23-2020 Episodic Residual codes; unclassified (20 sources) Delirium; Translations: [Disorientation, unspecified] Onset: 08-19-2021 08-26-2021 Episodic Screening and history of mental health and substance abuse codes (12 sources) Ex-smoker; Translations: [Personal history of nicotine dependence] Onset: 02-02-2021 Episodic Syncope (20 sources) Micturition syncope; Translations: [Syncope and collapse] Onset: 01-17-2021 01-17-2021 Episodic Results Test Name Value Interpretation Reference Range Facil ity Vital Signs Date Time Vital Sign Value Performing Clinician Faci lity 02-01-2023 14:56-0400 Diastolic blood pressure 74 mm[Hg] Jasson Bright MD Work Phone: [facility] 02-01-2023 14:56-0400 Systolic blood pressure 131 mm[Hg] Jasson Bright MD Work Phone: [facility] 02-01-2023 14:17-0400 Body weight 104.78 kg Jasson Bright MD Work Phone: [facility] 01-08-2023 10:27-0400 Body temperature 97.59 [degF] Thao WHALEY-C Work Phone: [facility] 01-08-2023 10:27-0400 Body weight 106.59 kg Thao WHALEY-C Work Phone: [facility] 01-08-2023 10:27-0400 Diastolic blood pressure 76 mm[Hg] Thao WHALEY-C Work Phone: [facility] 01-08-2023 10:27-0400 Heart rate 56 /min Thao Menchaca PA-C Work Phone: [facility] 01-08-2023 10:27-0400 Respiratory rate 18 /min Thao Menchaca PA-C Work Phone: [facility] 01-08-2023 10:27-0400 Systolic blood pressure 150 mm[Hg] Thao Menchaca PA-C Work Phone: [facility] 09-29-2022 15:29-0500 Body temperature 98.1 [degF] Jessie Jacques APRN.[employer] Work Phone: [facility] 09-29-2022 15:29-0500 Body weight 102.69 kg Jessie Jacques APRN.[employer] WORKER Work Phone: [facility] 09-29-2022 15:29-0500 Diastolic blood pressure 80 mm[Hg] Jessie Jacques APRN.[employer] WORKER Work Phone: [facility] 09-29-2022 15:29-0500 Heart rate 67 /min Jessie Jacques APRN.[employer] WORKER Work Phone: [facility] 09-29-2022 15:29-0500 Respiratory rate 16 /min Jessie Jacques APRN.[employer] WORKER Work Phone: [facility] 09-29-2022 15:29-0500 SaO2% (BldA) [Mass fraction] 99 % Jessie Jacques APRN.[employer] WORKER Work Phone: [facility] 09-29-2022 15:29-0500 Systolic blood pressure 178 mm[Hg] Jessie Jacqeus APRN.[employer] WORKER Work Phone: [facility] 07-13-2022 12:31-0400 Body weight 97.07 kg Thao Menchaca PA-C Work Phone: [facility] 07-13-2022 12:31-0400 Diastolic blood pressure 70 mm[Hg] Thao Menchaca PA-C Work Phone: [facility] 07-13-2022 12:31-0400 Heart rate 62 /min Thao Menchaca PA-C Work Phone: [facility] 07-13-2022 12:31-0400 Respiratory rate 16 /min Thao Menchaca PA-C Work Phone: [facility] 07-13-2022 12:31-0400 Systolic blood pressure 136 mm[Hg] Thao Menchaca PA-C Work Phone: [facility] 07-04-2022 13:06-0400 Diastolic blood pressure 66 mm[Hg] Charlene Haagen EDUCATIONAL INTERPRETER.[employer]ILITY WORKER Work Phone: [facility] 07-04-2022 13:06-0400 Heart rate 65 /min Charlene Haagen EDUCATIONAL INTERPRETER.[employer] UTILITY WORKER Work Phone: [facility] 07-04-2022 13:06-0400 Respiratory rate 18 /min Charlene Haagen EDUCATIONAL INTERPRETER.[employer] UTILITY WORKER Work Phone: [facility] 07-04-2022 13:06-0400 SaO2% (BldA) [Mass fraction] 97 % Charlene Haagen EDUCATIONAL INTERPRETER.[employer] UTILITY WORKER Work Phone: [facility] 07-04-2022 13:06-0400 Systolic blood pressure 128 mm[Hg] Charlene Haagen EDUCATIONAL INTERPRETER.[employer] WORKER Work Phone: [facility] 03-06-2022 14:13-0400 Body height 171 cm Yan Vargas MD Work Phone: [facility] 03-06-2022 14:13-0400 Body temperature 97.11 [degF] Yan Vargas MD Work Phone: [facility] 03-06-2022 14:13-0400 Body weight 97.07 kg Yan Vargas MD Work Phone: [facility] 03-06-2022 14:13-0400 Diastolic blood pressure 79 mm[Hg] Yan Vargas MD Work Phone: [facility] 03-06-2022 14:13-0400 Heart rate 55 /min Yan Vargas MD Work Phone: [facility] 03-06-2022 14:13-0400 SaO2% (BldA) [Mass fraction] 100 % Yan Vargas MD Work Phone: [facility] 03-06-2022 14:13-0400 Systolic blood pressure 199 mm[Hg] Yan Vargas MD Work Phone: [facility] 02-17-2022 13:12-0400 Diastolic blood pressure 72 mm[Hg] Jasson Bright MD Work Phone: [facility] 02-17-2022 13:12-0400 Heart rate 58 /min Jasson Bright MD Work Phone: [facility] 02-17-2022 13:12-0400 Systolic blood pressure 203 mm[Hg] Jasson Bright MD Work Phone: [facility] 02-17-2022 11:59-0400 Body weight 99.79 kg Jasson Bright MD Work Phone: [facility] 02-17-2022 11:59-0400 Respiratory rate 12 /min Jasson Bright MD Work Phone: [facility] 02-09-2022 15:26-0400 Body temperature 97.11 [degF] Magnolia Dahlhausen EDUCATIONAL INTERPRETER.[employer] UTILITY WORKER Work Phone: [facility] 02-09-2022 15:26-0400 Body weight 119.75 kg Magnolia Dahlhausen EDUCATIONAL INTERPRETER.[employer] UTILITY WORKER Work Phone: [facility] 02-09-2022 15:26-0400 Diastolic blood pressure 68 mm[Hg] Magnolia Dahlhausen EDUCATIONAL INTERPRETER.[employer] UTILITY WORKER Work Phone: [facility] 02-09-2022 15:26-0400 Heart rate 59 /min Magnolia Dahlhausen EDUCATIONAL INTERPRETER.[employer] UTILITY WORKER Work Phone: [facility] 02-09-2022 15:26-0400 Respiratory rate 18 /min Magnolia Dahlhausen EDUCATIONAL INTERPRETER.[employer] UTILITY WORKER Work Phone: [facility] 02-09-2022 15:26-0400 SaO2% (BldA) [Mass fraction] 99 % Magnolia Dahlhausen EDUCATIONAL INTERPRETER.[employer]ION UTILITY WORKER Work Phone: [facility] 02-09-2022 15:26-0400 Systolic blood pressure 160 mm[Hg] Magnolia Dahlhausen EDUCATIONAL INTERPRETER.[employer] UT[employer] WORKER Work Phone: [facility] Encounters Encounter Date Encounter Type Care Provider Facility Start: 08-16-2023 Chart abstracting Jasson monge MD Work Phone: [facility] Procedures Date Procedure Procedure Detail Performing Clinician Start: 05-28-2023 Noninvasive ear/puls e oximetry multiple deter Jasson Bright MD Work Phone: Start: 07-04-2022 INFLUENZA SEASONAL QUADRIVALENT HIGH DOSE AGE 65+ Charlene Wayne APRN.[employer] WORKER Work Phone: Start: 05-22-2022 Cul bact xcpt urine blood/stool aerobic isol Blake Brown Work Phone: Start: 02-17-2022 Hemoglobin A1c/Hemoglobin.total in Blood Jasson Bright MD Work Phone: Start: 01-31-2021 Adult depression scr eening assessment Jasson Bright MD Work Phone: Plan of Treatment Date Care Activity Detail Author Start: 01-10-2029 Urine microalbumin profile [facility] Start: 02-17-2024 ANNUAL PCP TEAM ASSISTANT DE[facility] OF STUDENTS PALLAVI DISEASE VISIT ANNUAL PCP TEAM CHRONIC DISEASE VISIT [facility] Start: 02-03-2024 Hepatitis B screening URINE AL BUMIN:CREATININE RATIO [facility] Start: 02-02-2024 ANNUAL PCP TEAM ASSISTANT [facility] PALLAVI DISEASE VISIT ANNUAL PCP TEAM CHRONIC DISEASE VISIT [facility] Start: 02-02-2024 BP CONTROLLED (<130/80) BP CONTROLLE D (<130/80) [facility] Start: 02-02-2024 COVID-19 VACCINE (#1) COVID-19 VACCI NE (#1) [facility] Immunizations Immunization Date Immunization Notes Care Provider Fa cility 07-04-2022 influenza, high-dose , quadrivalent vaccine (FLUZONE HIGH DOSE QUADRIVALENT) Charlene Wayne APRN.[employer] WORKER Work Phone: [facility] 07-04-2022 influenza virus vacc ine, unspecified formulation Jasson Bright MD Work Phone: [facility] 07-23-2020 influenza, high-dose , quadrivalent vaccine (FLUZONE HIGH DOSE QUADRIVALENT) Jasson Bright MD Work Phone: [facility] 08-14-2019 influenza, high dose seasonal, preservative-free Jasson Bright MD Work Phone: [facility] 01-10-2019 tetanus and diphther ia toxoids, adsorbed, preservative free, for adult use (5 Lf of tetanus toxoid and 2 Lf of diphtheria toxoid) Jasson Bright MD Work Phone: [facility] 06-14-2018 influenza, injectabl e, quadrivalent, contains preservative Jasson Bright MD Work Phone: [facility] 07-02-2017 influenza, high dose seasonal, preservative-free Jasson Bright MD Work Phone: [facility] 07-25-2016 influenza, high dose seasonal, preservative-free Jasson Bright MD Work Phone: [facility] 06-29-2015 influenza, high dose seasonal, preservative-free Jasson Bright MD Work Phone: [facility] 04-27-2015 pneumococcal conjuga te vaccine, 13 valent Jasson Bright MD Work Phone: [facility] 07-10-2014 influenza, seasonal, injectable Jasson Bright MD Work Phone: [facility] 07-01-2014 influenza, high dose seasonal, preservative-free Jasson Bright MD Work Phone: [facility] 07-10-2013 influenza virus vacc ine, unspecified formulation Jasson Bright MD Work Phone: [facility] 06-29-2012 influenza virus vacc ine, unspecified formulation Jasson Bright MD Work Phone: [facility] 07-18-2011 influenza virus vacc ine, unspecified formulation Jasson Bright MD Work Phone: [facility] 09-01-2009 pneumococcal polysaccharide vaccine, 23 valent Jasson Bright MD Work Phone: [facility] Work Phone: 10-23-2008 tetanus toxoid, redu carlee diphtheria toxoid, and acellular pertussis vaccine, adsorbed Jasson Bright MD Work Phone: [facility] 08-21-2007 influenza virus vacc ine, whole virus Jasson Bright MD Work Phone: [facility] 07-21-2005 influenza virus vacc ine, whole virus Jasson Bright MD Work Phone: [facility] Work Phone: 09-05-2000 diphtheria and tetan us toxoids, adsorbed for pediatric use Jasson Bright MD Work Phone: [facility] Work Phone: Payers Date Payer Category Payer Medicare [employer] [facility] [id number] 2014-Present [phone] [place] [id number] [facility] [id number] 2014 Medicare [employer] [facility] [place] [id number] 2014-Present [phone] [place] [id number] [facility] [id number] 2014 Unknown [id number] Social History Date Type Detail Facility Start: 11-10-2021 End: 06-07-2022 Tobacco smoking status CTIS Smokes tobacco daily [facility] End: 01-18-2023 History of tobacco use Cigarette Smoker [facility] Start: 11-10-2021 End: 02-01-2023 Cigarettes smoked current (pack per day) - Reported 2 [facility] Start: 11-10-2021 End: 02-01-2023 Tobacco use and exposure Smokeless tobacco non-user [facility] Start: 12-19-2021 End: 05-15-2023 Alcohol intake Current non-drinker of alcohol (finding) [facility] Start: 01-31-2021 End: 01-04-2023 History SDOH Alcohol Frequency 1 [facility] Start: 01-31-2021 End: 01-04-2023 History SDOH Social Connections Phone 5 [facility] Start: 01-31-2021 End: 01-04-2023 History SDOH Social Connections Membership 2 [facility] Start: 01-31-2021 History SDOH [facility] 3 [facility] Start: 11-10-2021 End: 06-07-2022 Tobacco Comment now smokes about 1/2 pack per day [facility] Start: 1945 Sex Assigned At Male [facility] Start: 12-25-2021 End: 06-07-2022 Exposure to SARS-CoV-2 (event) Not sure [facility] Start: 02-01-2023 Tobacco smoking stat us NHIS Ex-smoker [facility] End: 01-18-2023 History of tobacco use Current smoker [facility] Start: 01-04-2023 History SDOH Alcohol Std Drinks 0 [facility] Start: 01-04-2023 End: 02-01-2023 Social connection and isolation panel [facility] In a typical week, h ow many times do you talk on the telephone with family, friends, or neighbors? Patient refused [facility] Are you now , , , , never or living with a partner? Refused [facility] How often to you hav e a drink containing alcohol? Never [facility] (I/We) worried aggie er (my/our) food would run out before (I/we) got money to buy more. Never true [facility] In the past 12 month s, was there a time when you were not able to pay the mortgage or rent on time? No [facility] Start: 07-04-2021 Gender identity Identifies as male gender (finding) [facility] Start: 07-04-2021 Sexual orientation Heterosexual (fin nate) [facility] Clinical Notes 08-17-2021 to 08-16-2023 Mary Ann Thomas LPN - 08/16/2023 4:08 PM Kaitlin Yun RPFT - 05/28/2023 11:20 AM Kaitlin Kamara RPFT - 05/28/2023 11:19 AM Blake Olivo - 05/15/2023 1:45 PM EDT Note Date & Type Note Facility 08-16-2023 Note HNO ID: [id number] Author: Mary Ann Thomas LPN Service: ? Author Type: ? Type: Progress Notes Filed: 08/17/2023 9:06 PM Note Text: Scan on 08/16/2023 3:38 PM by Provider, External, PA-C: Consultation - Cardiology [facility] 08-16-2023 History of Presen t illness Narrative Scan on 08/16/2023 3:38 PM by ProviderHerber PA-C: Consultation - Cardiology documented in this encounter [facility] 05-28-2023 Note HNO ID: [id number] Author: Kaitlin Turcios RPFT Service: ? Author Type: Respiratory Therapist Type: Procedures Filed: 05/28/2023 11:22 AM Note Text: RESPIRATORY THERAPY OXIMETRY WITH AMBULATION Oximetry with Ambulation Test for This Encounter O2 Device O2 Adapter NC O2 Flow SpO2% HR Activity Ft Walked (ft) Time (min) Avg Speed (MPH) R/A 99 60 Resting R/A 95 62 Walking, usual pace 220 3 0.83 General Information Pulse Oximetry Site Total Time Spent O2 Supply Carrier Walking Assistance/Device L Index Finger 15 -- Standard Walker NAME: VEENA Nichols PATIENT NAME: Kerry Warner DATE: May 28, 2023 TIME: 11:22 AM Comment: patient unable to walk at fast pace [facility] 05-28-2023 Note HNO ID: [id number] Author: Kaitlin Turcios RPFT Service: ? Author Type: Respiratory Therapist Type: Progress Notes Filed: 05/28/2023 11:22 AM Note Text: PULM FUNCTION SMARTBLOCK: Provider: Jasson Bright MD Assisting Tech: Kaitlin Turcios RPFT Oximetry - Ambulation: 1 [facility] 05-28-2023 Procedure note Associated Ord er(s): OXIMETRY WITH AMBULATION RESPIRATORY THERAPY OXIMETRY WITH AMBULATION Oximetry with Ambulation Test for This Encounter O2 Device O2 Adapter NC O2 Flow SpO2% HR Activity Ft Walked (ft) Time (min) Avg Speed (MPH) R/A 99 60 Resting R/A 95 62 Walking, usual pace 220 3 0.83 General Information Pulse Oximetry Site Total Time Spent O2 Supply Carrier Walking Assistance/Device L Index Finger 15 -- Standard Walker NAME: VEENA Nichols PATIENT NAME: Kerry Warner DATE: May 28, 2023 TIME: 11:22 AM Comment: patient unable to walk at fast pace documented in this encounter [facility] 05-28-2023 History of Presen t illness Narrative PULM FUNCTION SMARTBLOCK: Provider: Jasson Bright MD Assisting Tech: Kaitlin Turcios RPFT Oximetry - Ambulation: 1 documented in this encounter [facility] 05-18-2023 Miscellaneous Notes Pt called and is notified of providers results and instructions. Pt voices understanding. 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 No changes in Tx needed. documented in this encounter [facility] 05-17-2023 Miscellaneous Notes Patient is scheduled for test Order placed please contact daughter at number below to help set up. Pt called and is notified of providers message and instructions. Pt voices understanding. Pt would like provider to order walking O2 test. He would like to have daughter Libia Johnson) called to set up the appointment [phone]. Marcella Varner RN In order to be able to send an order to cancel his O2 he will need to have a walking test that show his oxygen does not drop below 90% on room air. If wanting this I can place an order. Tried to contact patient; phone ringing fast busy. Contacted daughter regarding O2. She indicated that when patient was in the hospital well over a year ago and was to sent residential temporarily. Was placed on O2. Patient and patient's daughter indicated that patient no longer needs the oxygen and they have been trying to have [employer] accept it back. [employer] indicated that there is a order and they need a release from the physician. F[place] to [facility]. Yuly Jacques MA Papers to be faxed back. I never ordered any O2 for Kerry nor was I aware he even needed it?? Received CM[place] from [facility] [place]'s [place] . Form on pcp's desk for review and signature. Please fax back Attn: Kathy [phone]. Mary Ann Thomas LPN documented in this encounter [facility] 05-15-2023 Note HNO ID: [id number] Author: Blake Brown Service: ? Author Type: Physician Type: Progress Notes Filed: 05/17/2023 7:25 AM Note Text: Last saw pcp: 02/16/23 Subjective: Patient presents to clinic c/o painful toenails. They state that the nails are especially painful with shoe gear and pressure. Patient states that nails 1-5 b/l are painful. Patient admits to being diabetic. No other pedal complaints at this time. Patient states no change in medications or medical history since last visit. Objective: Patient presents to clinic ambulating in sneaker Vasc: DP and PT pulses are palpable bilateral. CFT is less than 5 seconds bilateral. Skin temperature is warm to cool proximal to distal bilateral. There is no edema or varicosities noted. Neuro: Protective sensation is intact to the foot and toes when tested with the 5.07 SWM bilateral. Vibratory sensation is decreased at the hallux IPJ bilateral. The hallux is downgoing bilateral. Derm: Nails 1-5 b/l are painful, discolored-yellow, thick, crumbly, dystrophic and with subungal debris. Skin is of normal turgor, texture and hair growth is prsent bilateral. There are no hyperkeratosis, ulcerations, scars, verruca or other lesions noted. Ortho: Muscle strength is 5/5 for all pedal groups tested. Ankle joint DF is decreased with the knee extended with no pain or crepitus noted. 1st MPJ ROM is decreased bilateral. Assessment: (B35.1) Onychomycosis (primary encounter diagnosis) (M79.672) Pain in left foot (M79.674) Pain in toe of right foot (E11.9) Controlled type 2 diabetes mellitus without complication, without long-term current use of insulin ([facility]) Plan: Patient was seen and evaluated. Nails 1-5 bilateral were debrided in length and thickness. Patient was instructed on the continued importance of diabetic foot care along with proper diet and keeping their blood sugar under control to prevent complications. Patient is to RTC in 3-4 months. Blake Brown DPM [facility] 05-15-2023 Note HNO ID: [id number] Author: Cheyenne Bruce LPN Service: ? Author Type: LICENSED NURSE Type: Progress Notes Filed: 05/17/2023 7:25 AM Note Text: AMB ROOMING INTAKE FLOWSHEET DATA Pain Pain Level: 2 Pain Location: Toe (tender) Description: Other: See comment (tender) Duration Amount of Time: 3 Duration Units: Weeks Frequency: Intermittent Intervention/Comfort measure: Reposition, Relaxation Patient presents with: Right Great Toe - Ingrown Toenail, Established Patient, Pain Left Foot - Established Patient, Diabetic Foot Care Right Foot - Established Patient, Diabetic Foot Care Cheyenne Bruce LPN [facility] 05-15-2023 History of Presen t illness Narrative Last saw pcp: 02/16/23 Subjective: Patient presents to clinic c/o painful toenails. They state that the nails are especially painful with shoe gear and pressure. Patient states that nails 1-5 b/l are painful. Patient admits to being diabetic. No other pedal complaints at this time. Patient states no change in medications or medical history since last visit. Objective: Patient presents to clinic ambulating in [facility] Vasc: DP and PT pulses are palpable bilateral. CFT is less than 5 seconds bilateral. Skin temperature is warm to cool proximal to distal bilateral. There is no edema or varicosities noted. Neuro: Protective sensation is intact to the foot and toes when tested with the 5.07 SWM bilateral. Vibratory sensation is decreased at the hallux IPJ bilateral. The hallux is downgoing bilateral. Derm: Nails 1-5 b/l are painful, discolored-yellow, thick, crumbly, dystrophic and with subungal debris. Skin is of normal turgor, texture and hair growth is prsent bilateral. There are no hyperkeratosis, ulcerations, scars, verruca or other lesions noted. Ortho: Muscle strength is 5/5 for all pedal groups tested. Ankle joint DF is decreased with the knee extended with no pain or crepitus noted. 1st MPJ ROM is decreased bilateral. Assessment: (B35.1) Onychomycosis (primary encounter diagnosis) (M79.672) Pain in left foot (M79.674) Pain in toe of right foot (E11.9) Controlled type 2 diabetes mellitus without complication, without long-term current use of insulin ([facility]) Plan: Patient was seen and evaluated. Nails 1-5 bilateral were debrided in length and thickness. Patient was instructed on the continued importance of diabetic foot care along with proper diet and keeping their blood sugar under control to prevent complications. Patient is to RTC in 3-4 months. Blake Brown DPM AMB ROOMING INTAKE FLOWSHEET DATA Pain Pain Level: 2 Pain Location: Toe (tender) Description: Other: See comment (tender) Duration Amount of Time: 3 Duration Units: Weeks Frequency: Intermittent Intervention/Comfort measure: Reposition, Relaxation Patient presents with: Right Great Toe - Ingrown Toenail, Established Patient, Pain Left Foot - Established Patient, Diabetic Foot Care Right Foot - Established Patient, Diabetic Foot Care Cheyenne Bruce LPN documented in this encounter [facility] 04-18-2023 Miscellaneous Notes Spoke with saranya Reza and they are going to hold off on scheduling at this time and will call us if they change their minds. Daughter returned call and was given message below. She states that she doesn't believe patient wants to see [facility] or follow up with Neurology at this time. Jj requests that a coal cutter contact her within the week regarding locations for [facility] appointment and that in the mean time, she would discuss with patient. Please contact Jj within the week regarding this consult. Jj is agreeable to cancelling appointment on 05/04/23 at this time. This staff cancelled appointment. DASIA Lua TC to daughter Libia Cooney to inform of below. No answer, left VM to return call to office. DASIA Lua Order entered. Patient is scheduled for 05/04/23 with [facility] for altered mental status. Per JASON notes with KD on 02/09/22, patient was to see [facility]. In review of chart, patient did not see this department and consult has no . Please place new consult and this staff will reach out to patient to have scheduled with [facility]. (Pended order, please add dx) Thank you. DASIA Lua documented in this encounter [facility] 03-05-2023 Miscellaneous Notes [facility] faxed STAT request for pt's most recent lab results. Results faxed as requested. Mary Ann Thomas LPN documented in this encounter [facility] 03-01-2023 Miscellaneous Notes Patient phones requesting refills as follows: Requested Prescriptions Pending Prescriptions Disp Refills atorvastatin (LIPITOR) 20 mg tablet 30 tablet 5 Sig: Take 1 tablet by mouth daily at bedtime. For cholesterol. JASON-02/01/23 Labs-02/01/23 NOV-08/06/23 Please review and advise. 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 She will contact their office for refills. Mary Ann Thomas LPN Patient has been identified by name and date of : Yes Requested Prescriptions Pending Prescriptions Disp Refills amLODIPine (NORVASC) 5 mg tablet 30 tablet 11 Sig: Take 1 tablet by mouth once daily. Per [facility] lisinopril (ZESTRIL) 10 mg tablet 30 tablet 11 Sig: Take 1 tablet by mouth twice daily. RX INSTRUCTIONS: Patient aware RX will be sent to pharmacy. No need to notify patient. [employer] documented in this encounter [facility] 02-16-2023 Note HNO ID: [id number] Author: Jasson Bright MD Service: ? Author Type: Physician Type: Progress Notes Filed: 02/18/2023 12:56 PM Note Text: Chief Complaint Patient presents with: Prostate Problem HPI Kerry Warner is a 77 year old male who presents here today for prostate exam only. Patient was seen this month for his medicare wellness and when asked about his prostate exam during the visit. Patient declined. Patient then stopped back by the office a few days later and request that this be completed and that he changed his mind. He indicated a history of an enlarged prostate and said he should have had completed during the visit. No significant prostate symptoms on review Patient also mentioned some right breast pain off/on x 1 month. Area under the right nipple was erythematous last night but not today. The tenderness has been around the right nipple. No nipple discharge or skin changes. Past medical history, appointments, medications, allergies reviewed. 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 BPV (benign positional vertigo) 07/01/2015 Chronic tension-type headache, not intractable 06/29/2015 Constipation, chronic 09/01/2009 Coronary artery disease due to lipid rich plaque 05/19/2021 Seeing [facility]: DANISH to Mid RCA and distal RCA 05/12/2021 Diabetes mellitus type 2, controlled, without complications (HCC) 05/25/2016 Diastasis recti 05/26/2011 Encounter for Medicare annual wellness exam 02/01/2023 Medicare Part B: Not able to find. Last done: 02/01/2023 Essential hypertension, benign 10/23/2008 12/18/2016: Home BP Cuff Validated. Home BP: 155/89 Office BP: 140/88 Ex-smoker 02/02/2021 Smoked for about 50 yrs and quit around age 65. Could smoke up to 2-4 PPD. GERD without esophagitis 10/23/2008 Loss of hearing 02/01/2023 bilaterally Low folate 08/16/2021 Low serum vitamin B12 08/16/2021 Mixed hyperlipidemia 10/23/2016 Obesity, Class III, BMI 40-49.9 (morbid obesity) ([facility]) 02/06/2014 Orthostatic hypotension 05/13/2018 Primary malignant neoplasm of skin of upper extremity 06/12/2017 Skin cancer of arm Tubular adenoma 07/02/2018 Previous Surgical History PAST SURGICAL HISTORY Procedure Laterality Date APPENDECTOMY removal of bowel tumor and appendectomy at age 6 years COLONOSCOPY FLX DX W/COLLJ SPEC WHEN PFRMD 07/23/2012 Colonoscopy COLONOSCOPY FLX DX W/COLLJ SPEC WHEN PFRMD 03/19/2013 Colonoscopy Repeat 2 years COLONOSCOPY FLX DX W/COLLJ SPEC WHEN PFRMD 06/21/2016 Colonoscopy (MAC) COLONOSCOPY FLX DX W/COLLJ SPE[facility] DRUG ELUTING STENT 05/12/2021 Mid and distal RCA ESOPHAGOGASTRODUODENOSCOPY TRANSORAL DIAGNOSTIC 07/23/2012 EGD ESOPHAGOGASTRODUODENOSCOPY TRANSORAL DIAGNOSTIC 06/21/2016 EGD (MAC) PAST SURGICAL HISTORY OF 2002 skin cancer removed from arm RPR UMBILICAL HERNIA < 5 YRS REDUCIBLE 2000 Hernia repair, umbilical Family History FAMILY HISTORY Problem Relation Age of Onset other (brain cancer) Mother Alcohol/Drug Father other (Other) Father both parents - old age , no ill siblings.( has step siblings) Hypertension Sister Prostate Cancer Brother Patient Allergies ALLERGIES Allergen Reactions Cats Cough Current Medications Current Outpatient Medications on File Prior to Visit Medication Sig atorvastatin (LIPITOR) 20 mg tablet Take 1 tablet by mouth daily at bedtime. For cholesterol. pyridoxine, vitamin B6, (VITAMIN B-6) 100 mg tablet Take 1 tablet by mouth once daily. (Patient not taking: Reported on 02/01/2023) amLODIPine (NORVASC) 5 mg tablet Take 1 tablet by mouth once daily. Per [facility] lisinopril (ZESTRIL, PRINIVIL) 10 mg tablet Take 10 mg by mouth twice daily. pantoprazole DR (PROTONIX) 40 mg tablet Take 1 tablet by mouth as needed. TAKE 1 TABLET BY MOUTH ONCE DAILY IN THE MORNING albuterol HFA 90 mcg/actuation HFA Inhale 90 mcg as instructed every 6 hours as needed. cyanocobalamin (VITAMIN B-12) 1,000 mcg tab Take 1 tablet by mouth once daily. (Patient not taking: Reported on 02/01/2023) folic acid 1 mg tablet Take 1 tablet by mouth once daily. (Patient not taking: Reported on 02/01/2023) aspirin, enteric coated (ASPIRIN, ENTERIC COATED) 81 mg EC tablet Take 1 tablet by mouth once daily. acetaminophen (TYLEN (more content not included)... [facility] 02-15-2023 Note HNO ID: [id number] Author: Yuly Jacques MA Service: ? Author Type: Overhauler Helper Type: Progress Notes Filed: 02/15/2023 5:51 PM Note Text: Scan on 02/13/2023 8:24 AM by External Provider, PA-C: Consultation - ENT Scan on 02/14/2023 4:33 PM by External Provider, PA-C: Consultation - Cardiology Yuly Jacques MA [facility] 02-05-2023 Miscellaneous Notes Pt notified. Lori Thakkar Ma Let patient know UA, Lipid panel, folate, Mg, prostate lab, A1c, B12, electrolytes, liver and kidney functions were all ok. CBC shows his anemia is improved. documented in this encounter [facility] 02-01-2023 Note HNO ID: [id number] Author: Jasson Bright MD Service: ? Author Type: Physician Type: Progress Notes Filed: 02/01/2023 6:51 PM Note Text: Medicare Yearly Visit Medical B eligibilty date not able to find Date of last exam NA PAST MEDICAL HISTORY Diagnosis Date Advance directive discussed with patient 02/01/2023 Discussed 01/2023: Packets given Anemia of chronic disease 06/13/2016 Anemia of chronic disease 06/13/2016 Seen by Hematology 03/2022 Anxiety about health 08/21/2015 Balance disorder 02/02/2021 Benign neoplasm of rectum and anal canal Benign neoplasm of stomach Benign prostatic hyperplasia with urinary obstruction 07/15/2012 Bilateral carotid artery stenosis 02/04/2021 US 01/2021: Rt 20-40%, Lt 60-60% Blood pressure instability 02/02/2021 Blood pressure instability 02/02/2021 Chronic: Can be 130's/80's and then 190-200's/90-100's. BPV (benign positional vertigo) 07/01/2015 Chronic tension-type headache, not intractable 06/29/2015 Constipation, chronic 09/01/2009 Coronary artery disease due to lipid rich plaque 05/19/2021 Seeing [facility]: DANISH to Mid RCA and distal RCA 05/12/2021 Diabetes mellitus type 2, controlled, without complications ([facility]) 05/25/2016 Diastasis recti 05/26/2011 Encounter for Medicare annual wellness exam 02/01/2023 Medicare Part B: Not able to find. Last done: 02/01/2023 Essential hypertension, benign 10/23/2008 12/18/2016: Home BP Cuff Validated. Home BP: 155/89 Office BP: 140/88 Ex-smoker 02/02/2021 Smoked for about 50 yrs and quit around age 65. Could smoke up to 2-4 PPD. GERD without esophagitis 10/23/2008 Loss of hearing 02/01/2023 bilaterally Low folate 08/16/2021 Low serum vitamin B12 08/16/2021 Mixed hyperlipidemia 10/23/2016 Obesity, Class III, BMI 40-49.9 (morbid obesity) ([facility]) 02/06/2014 Orthostatic hypotension 05/13/2018 Primary malignant neoplasm of skin of upper extremity 06/12/2017 Skin cancer of arm Tubular adenoma 07/02/2018 PAST SURGICAL HISTORY Procedure Laterality Date APPENDECTOMY removal of bowel tumor and appendectomy at age 6 years COLONOSCOPY FLX DX W/COLLJ SPEC WHEN PFRMD 07/23/2012 Colonoscopy COLONOSCOPY FLX DX W/COLLJ SPEC WHEN PFRMD 03/19/2013 Colonoscopy Repeat 2 years COLONOSCOPY FLX DX W/COLLJ SPEC WHEN PFRMD 06/21/2016 Colonoscopy (MAC) COLONOSCOPY FLX DX W/COLLJ SPEC WHEN [facility]FRMD [facility] DRUG ELUTING STENT 05/12/2021 Mid and distal RCA ESOPHAGOGASTRODUODENOSCOPY TRANSORAL DIAGNOSTIC 07/23/2012 EGD ESOPHAGOGASTRODUODENOSCOPY TRANSORAL DIAGNOSTIC 06/21/2016 EGD (MAC) PAST SURGICAL HISTORY OF 2002 skin cancer removed from arm RPR UMBILICAL HERNIA < 5 YRS REDUCIBLE 2000 Hernia repair, umbilical ALLERGIES: Cats Medications reviewed: Yes FAMILY HISTORY Problem Relation Age of Onset other (brain cancer) Mother Alcohol/Drug Father other (Other) Father both parents - old age , no ill siblings.( has step siblings) Hypertension Sister Prostate Cancer Brother SOCIAL HISTORY: Social History Tobacco Use Smoking status: Former Packs/day: 2.00 Years: 50.00 Pack years: 100.00 Types: Cigarettes Quit date: 01/18/2023 Years since quittin.0 Smokeless tobacco: Never Tobacco comments: now smokes about 1/2 pack per day Vaping Use Vaping Use: Former Quit date: 10/01/2010 Substance Use Topics Alcohol use: No Drug use: No Kerry works out regularly 7 times per week with exercises for his arms and legs. He watches his diet for sodium, low fat and low cholesterol some of the time. List of current specialists seen: [facility] Dr. Jarvis (Neuro) End of Live Planning discussed including patients advanced directive wishes: Yes I am willing to follow Kerry's advanced directives. PHQ-2 / Depression screen Depression Screening 04/24/2016 05/13/2018 01/31/2021 02/01/2023 PHQ-2 Score 0 0 0 0 Depression screening tool completed and reviewed. Based on score and interview, patient is not at risk for depression. Screening tool discussed with patient, and I recommended no further intervention at this time. Functional Ability/Safety Screen 1. Was the patient's timed Up and Go test unsteady or longer than 30 seconds? Yes 2. Does the patient need help with the phone, transportation, shopping,preparing meals, housework, laundry, medications or managing money? No daughter helps with banking since he cannot read well. 3. Does your home have rugs in the hallway, lack of grab bars in the bathroom, lack of handrails on the stairs or have poor lighting? No Hearing Evaluation: hard of hearing PHYSICAL EXAM BP 131/74 Wt 104.8 kg (231 lb) BMI 35.83 kg/m? Alert and oriented X 3: YES Body mass index is 35.83 kg/m?. Visual acuity: seeing optho See below ASSESSMENT/PLAN: 77 year old male The following prevention plan was discussed during the office visit and provided to the patient: See below Jasson (more content not included)... [facility] 02-01-2023 Instructions Jasson Bright MD - 02/01/2023 2:51 PM EDT You have an appointment with the [facility] on February 14 at 3:30 with Neil James CHANNEL MARKETING MANAGER documented in this encounter [facility] 02-01-2023 History of Presen t illness Narrative Medicare Yearly Visit Medical B eligibilty date not able to find Date of last exam NA PAST MEDICAL HISTORY Diagnosis Date Advance directive discussed with patient 02/01/2023 Discussed 01/2023: Packets given Anemia of chronic disease 06/13/2016 Anemia of chronic disease 06/13/2016 Seen by Hematology 03/2022 Anxiety about health 08/21/2015 Balance disorder 02/02/2021 Benign neoplasm of rectum and anal canal Benign neoplasm of stomach Benign prostatic hyperplasia with urinary obstruction 07/15/2012 Bilateral carotid artery stenosis 02/04/2021 US 01/2021: Rt 20-40%, Lt 60-60% Blood pressure instability 02/02/2021 Blood pressure instability 02/02/2021 Chronic: Can be 130's/80's and then 190-200's/90-100's. BPV (benign positional vertigo) 07/01/2015 Chronic tension-type headache, not intractable 06/29/2015 Constipation, chronic 09/01/2009 Coronary artery disease due to lipid rich plaque 05/19/2021 Seeing [facility]: DANISH to Mid RCA and distal RCA 05/12/2021 Diabetes mellitus type 2, controlled, without complications ([facility]) 05/25/2016 Diastasis recti 05/26/2011 Encounter for Medicare annual wellness exam 02/01/2023 Medicare Part B: Not able to find. Last done: 02/01/2023 Essential hypertension, benign 10/23/2008 12/18/2016: Home BP Cuff Validated. Home BP: 155/89 Office BP: 140/88 Ex-smoker 02/02/2021 Smoked for about 50 yrs and quit around age 65. Could smoke up to 2-4 PPD. GERD without esophagitis 10/23/2008 Loss of hearing 02/01/2023 bilaterally Low folate 08/16/2021 Low serum vitamin B12 08/16/2021 Mixed hyperlipidemia 10/23/2016 Obesity, Class III, BMI 40-49.9 (morbid obesity) ([facility]) 02/06/2014 Orthostatic hypotension 05/13/2018 Primary malignant neoplasm of skin of upper extremity 06/12/2017 Skin cancer of arm Tubular adenoma 07/02/2018 PAST SURGICAL HISTORY Procedure Laterality Date APPENDECTOMY removal of bowel tumor and appendectomy at age 6 years COLONOSCOPY FLX DX W/COLLJ SPEC WHEN PFRMD 07/23/2012 Colonoscopy COLONOSCOPY FLX DX W/COLLJ SPEC WHEN PFRMD 03/19/2013 Colonoscopy Repeat 2 years COLONOSCOPY FLX DX W/COLLJ SPEC WHEN PFRMD 06/21/2016 Colonoscopy (MAC) COLONOSCOPY FLX DX W/COLLJ SPEC [facility] DRUG ELUTING STENT 05/12/2021 Mid and distal RCA ESOPHAGOGASTRODUODENOSCOPY TRANSORAL DIAGNOSTIC 07/23/2012 EGD ESOPHAGOGASTRODUODENOSCOPY TRANSORAL DIAGNOSTIC 06/21/2016 EGD (MAC) PAST SURGICAL HISTORY OF 2002 skin cancer removed from arm RPR UMBILICAL HERNIA < 5 YRS REDUCIBLE 2000 Hernia repair, umbilical ALLERGIES: Cats Medications reviewed: Yes FAMILY HISTORY Problem Relation Age of Onset other (brain cancer) Mother Alcohol/Drug Father other (Other) Father both parents - old age , no ill siblings.( has step siblings) Hypertension Sister Prostate Cancer Brother SOCIAL HISTORY: Social History Tobacco Use Smoking status: Former Packs/day: 2.00 Years: 50.00 Pack years: 100.00 Types: Cigarettes Quit date: 01/18/2023 Years since quittin.0 Smokeless tobacco: Never Tobacco comments: now smokes about 1/2 pack per day Vaping Use Vaping Use: Former Quit date: 10/01/2010 Substance Use Topics Alcohol use: No Drug use: No Kerry works out regularly 7 times per week with exercises for his arms and legs. He watches his diet for sodium, low fat and low cholesterol some of the time. List of current specialists seen: [facility] Dr. Jarvis (Neuro) End of Live Planning discussed including patients advanced directive wishes: Yes I am willing to follow Kerry's advanced directives. PHQ-2 / Depression screen Depression Screening 04/24/2016 05/13/2018 01/31/2021 02/01/2023 PHQ-2 Score 0 0 0 0 Depression screening tool completed and reviewed. Based on score and interview, patient is not at risk for depression. Screening tool discussed with patient, and I recommended no further intervention at this time. Functional Ability/Safety Screen 1. Was the patient's timed Up and Go test unsteady or longer than 30 seconds? Yes 2. Does the patient need help with the phone, transportation, shopping,preparing meals, housework, laundry, medications or managing money? No daughter helps with banking since he cannot read well. 3. Does your home have rugs in the hallway, lack of grab bars in the bathroom, lack of handrails on the stairs or have poor lighting? No Hearing Evaluation: hard of hearing PHYSICAL EXAM BP 131/74 Wt 104.8 kg (231 lb) BMI 35.83 kg/m Alert and oriented X 3: YES Body mass index is 35.83 kg/m . Visual acuity: seeing optho See below ASSESSMENT/PLAN: 77 year old male The following prevention plan was discussed during the office visit and provided to the patient: See below Jasson Bright MD Chief Complaint Patient presents with: Medicare Wellness Exam HPI Kerry Warner is a 77 year old male who presents here today for Chronic Medical Conditions. and Medicare Annual Visit. Office visit - medicare wellness Patient with hx of possible Parkinson dz, CAD, DM, CHF, HTN, HLP, GERD, chronic headache, carotid stenosis, low Folate, low B12, current smoker, obesity, . Aftr last appt with Neuro family requested to hold off on seeing the brain center and f/u one more time here with Neuro. Neuro was ok with this but it appears an appt was never made. Office visit 6 month follow up 01/2022 Patient with hx of possible Parkinson dz, CAD, DM, CHF, HTN, HLP, GERD, chronic headache, carotid stenosis, low Folate, low B12, current smoker, obesity, . Recently seen by neurology for f/u of possible parkinson dz, drooling, shuffling gate. They have continued the sinemet and want him to see brain health. Patient was recently in [facility] and released about three weeks ago. He had a fall on 01/09 and 01/13. On the he was admitted then sent home and then on 01/13 he was admitted again for fall and then transferred [facility]. Currently has [facility] [place] for [facility] and PHYSICAL THERAPY. He did have a OT eval and felt he did not need Tx. Patient last seen [facility] for f/u and was taken off the florinef and the aldactone. Past medical history, appointments, medications, allergies reviewed. 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 BPV (benign positional vertigo) 07/01/2015 Chronic tension-type headache, not intractable 06/29/2015 Constipation, chronic 09/01/2009 Coronary artery disease due to lipid rich plaque 05/19/2021 Seeing [facility]: DANISH to Mid RCA and distal RCA 05/12/2021 Diabetes mellitus type 2, controlled, without complications ([facility]) 05/25/2016 Diastasis recti 05/26/2011 Essential hypertension, benign 10/23/2008 12/18/2016: Home BP Cuff Validated. Home BP: 155/89 Office BP: 140/88 Ex-smoker 02/02/2021 Smoked for about 50 yrs and quit around age 65. Could smoke up to 2-4 PPD. GERD without esophagitis 10/23/2008 Low folate 08/16/2021 Low serum vitamin B12 08/16/2021 Mixed hyperlipidemia 10/23/2016 Obesity, Class III, BMI 40-49.9 (morbid obesity) (HCC) 02/06/2014 Orthostatic hypotension 05/13/2018 Primary malignant neoplasm of skin of upper extremity 06/12/2017 Skin cancer of arm Tubular adenoma 07/02/2018 Previous Surgical History PAST SURGICAL HISTORY Procedure Laterality Date APPENDECTOMY removal of bowel tumor and appendectomy at age 6 years COLONOSCOPY FLX DX W/COLLJ SPEC WHEN PFRMD 07/23/2012 Colonoscopy COLONOSCOPY FLX DX W/COLLJ SPEC WHEN PFRMD 03/19/2013 Colonoscopy Repeat 2 years COLONOSCOPY FLX DX W/COLLJ SPEC WHEN PFRMD 06/21/2016 Colonoscopy (MAC) COLONOSCOPY FLX DX W/COLLJ SPEC WHEN [facility]FRMD [facility] DRUG ELUTING STENT 05/12/2021 Mid and distal RCA ESOPHAGOGASTRODUODENOSCOPY TRANSORAL DIAGNOSTIC 07/23/2012 EGD ESOPHAGOGASTRODUODENOSCOPY TRANSORAL DIAGNOSTIC 06/21/2016 EGD (MAC) PAST SURGICAL HISTORY OF 2002 skin cancer removed from arm RPR UMBILICAL HERNIA < 5 YRS REDUCIBLE 2000 Hernia repair, umbilical Family History FAMILY HISTORY Problem Relation Age of Onset other (brain cancer) Mother Alcohol/Drug Father other (Other) Father both parents - old age , no ill siblings.( has step siblings) Hypertension Sister Prostate Cancer Brother Patient Allergies ALLERGIES Allergen Reactions Cats Cough Current Medications Current Outpatient Medications on File Prior to Visit Medication Sig atorvastatin (LIPITOR) 20 mg tablet Take 1 tablet by mouth daily at bedtime. For cholesterol. pyridoxine, vitamin B6, (VITAMIN B-6) 100 mg tablet Take 1 tablet by mouth once daily. amLODIPine (NORVASC) 5 mg tablet Take 1 tablet by mouth once daily. Per [facility] lisinopril (ZESTRIL, PRINIVIL) 10 mg tablet Take 10 mg by mouth twice daily. pantoprazole DR (PROTONIX) 40 mg tablet Take 1 tablet by mouth as needed. TAKE 1 TABLET BY MOUTH ONCE DAILY IN THE MORNING albuterol HFA 90 mcg/actuation HFA Inhale 90 mcg as instructed every 6 hours as needed. cyanocobalamin (VITAMIN B-12) 1,000 mcg tab Take 1 tablet by mouth once daily. folic acid 1 mg tablet Take 1 tablet by mouth once daily. aspirin, enteric coated (ASPIRIN, ENTERIC COATED) 81 mg EC tablet Take 1 tablet by mouth once daily. acetaminophen (TYLENOL 8 HOUR) 650 mg CR tablet Take 2 tablets by mouth twice daily as needed for Pain. No current facility-administered medications on file prior to visit. Social History Social History Tobacco Use Smoking status: Every Day Packs/day: 2.00 Years: 50.00 Pack years: 100.00 Types: Cigarettes Last attempt to quit: 12/18/2008 Years since quittin.1 Smokeless tobacco: Never Tobacco comments: now smokes about 1/2 pack per day Vaping Use Vaping Use: Former Quit date: 10/01/2010 Substance Use Topics Alcohol use: No Drug use: No Review of Symptoms REVIEW OF SYSTEMS GENERAL: No weight loss, malaise or fevers HEENT: Negative for frequent or significant headaches, No changes in hearing. no nose bleeds or other nasal problems. Has been told he has loss of hearing in both ears but he does not want hearing aids. NECK: Negative for lumps, goiter, pain and significant neck swelling RESPIRATORY: Negative for cough, hemoptysis, wheezing, COPD, dyspnea or shortness of breath CARDIOVASCULAR: Negative for chest pain, increased leg swelling, hypertension, CHF or palpitations GI: No nausea, vomiting, or diarrhea, No frequent heartburn or reflux symptoms, and blood : No history of dysuria, blood MUSCULOSKELETAL: gets some pain in the finger joints. SKIN: Negative for lesions, rash, and itching PSYCH: Negative for sleep disturbance, mood disorder and recent psychosocial stressors HEMATOLOGY/LYMPHOLOGY: Negative for prolonged bleeding, bruising easily or swollen nodes ENDOCRINE: Negative for cold or heat intolerance, polyuria, polydipsia and goiter NEURO: No history of headaches, syncope, paralysis, seizures or tremors EXAM: BP 160/94 (BP Site: Left Arm, BP Position: Sitting, BP Cuff Size: Large Adult) Wt 104.8 kg (231 lb) BMI 35.83 kg/m BP 131/74 Wt 104.8 kg (231 lb) BMI 35.83 kg/m Last 5 Encounter Wt Readings: Date: Wt: 02/01/2023 104.8 kg (231 lb) 01/08/2023 106.6 kg (235 lb) 09/29/2022 102.7 kg (226 lb 6.4 oz) 07/13/2022 97.1 kg (214 lb) 03/06/2022 97.1 kg (214 lb) General Appearance: Well appearing, alert, in no acute distress, well-hydrated, well nourished.. Skin: Skin color, texture, turgor normal, no suspicious rashes or lesions. Head: Normocephalic, no masses, lesions, tenderness or abnormalities. Eyes: Anicteric sclera. Pupils are equally round and reactive to light. Extraocular movements are intact. . Ears: External ears normal, canals clear. Nose/Sinuses: Nares normal, septum midline, mucosa normal, no drainage or sinus tenderness. Oropharynx: Lips, mucosa, and tongue normal, teeth and gums normal, oropharynx normal. Neck: Supple, no adenopathy; thyroid symmetric, normal size, no bruits. Lungs: Lungs clear to auscultation. No rhonchi, rales. Very mild end expiratory wheezing.. Heart: RRR without murmur, gallop, or rubs. No ectopy. Abdomen: Normal abdominal exam, Abdomen soft, non-tender. Bowel sounds normal. No masses, organomegaly. Extremities: No deformities, skin discoloration, Good capillary refill. Has chronic 1+ pitting edema in lower legs. Musculoskeletal: Muscular strength intact, No joint swelling, deformity, or tenderness. Peripheral Pulses: Normal. Neurologic: Gait is slow and widened. Uses a walker. Sensation to light touch and crainal nerves 2-12 intact.. Genitalia: declined. Rectal: declined. Health Maintenance List COVID-19 VACCINE(1) Never done HEPATITIS C SCREENING Never done BP CONTROLLED (<130/80) Never done SHINGRIX VACCINE(1 of 2) Never done DILATED RETINAL EXAM due on 05/21/2018 URINE ALBUMIN:CREATININE RATIO due on 05/10/2021 HBA1C due on 08/20/2022 ADVANCE DIRECTIVE DISCUSSION Never done DEPRESSION ASSESSMENT Never done LDL CHOLESTEROL due on 02/17/2023 DIABETIC FOOT EXAM due on 05/22/2023 ANNUAL PCP TEAM CHRONIC DISEASE VISIT due on 01/09/2024 DTAP,TDAP,TD(4 - Td or Tdap) due on 01/10/2029 INFLUENZA Completed PNEUMOCOCCAL: 65+ Completed Data reviewed A/P ASSESSMENT/PLAN: 1. Encounter for Medicare annual wellness exam - ICD9: V70.0, ICD10: Z00.00 (primary diagnosis) - Counseled on healthy diet and regular exercise - Discussed need for and benefit of weight loss. BMI 35.83 kg/(m^2) - Follow up for annual exam in one year 2. Controlled type 2 diabetes mellitus without complication, without long-term current use of insulin (HCC) - ICD9: 250.00, ICD10: E11.9 - will await labs to determine if any changes needed. - Counseled on healthy diet and regular exercise - Discussed need for and benefit of weight loss. BMI 35.83 kg/(m^2) - managed per diet. Check - ALBUMIN/CREAT RATIO RND UR - COMP METABOLIC PANEL - HGB A1C - URINALYSIS, WITH MICROSCOPIC - LIPID PANEL, NONFASTING - CBC + DIFF 3. Essential hypertension, benign - ICD9: 401.1, ICD10: I10 - good control but erratic at times. - Continue current medication(s) - Recommended regular aerobic exercise. - Recommend home blood pressure monitoring, to bring results in on next visit - Goal of BP <130/80 Check - COMP METABOLIC PANEL - URINALYSIS, WITH MICROSCOPIC - LIPID PANEL, NONFASTING 4. Mixed hyperlipidemia - ICD9: 272.2, ICD10: E78.2 - to be determined upon return of lab results - Encouraged following a low fat, low cholesterol diet. - Discussed the benefits of regular aerobic exercise and weight loss. - Encouraged following a low carbohydrate, healthy oil intake diet. - Continue current therapy. - COMP METABOLIC PANEL - URINALYSIS, WITH MICROSCOPIC - LIPID PANEL, NONFASTING 5. Bilateral carotid artery stenosis - ICD9: 433.10, 433.30, ICD10: I65.23 Check - LIPID PANEL, NONFASTING 6. Blood pressure instability - ICD9: 796.4, ICD10: I99.8 - stable no changes. 7. Coronary artery disease due to lipid rich plaque - ICD9: 414.00, 414.3, ICD10: I25.10, I25.83 - clinically stable. Management per cardio Check - LIPID PANEL, NONFASTING 8. Chronic diastolic CHF (congestive heart failure) (HCC) - ICD9: 428.32, 428.0, ICD10: I50.32 - as per #7 9. Chronic tension-type headache, not intractable - ICD9: 339.12, ICD10: G44.229 - stable no changes. 10. GERD without esophagitis - ICD9: 530.81, ICD10: K21.9 - Continue treatment with protonix 40 mg every day Check - VITAMIN B12 BLOOD - MAGNESIUM BLD 11. Anemia of chronic disease - ICD9: 285.29, ICD10: D63.8 Check - CBC + DIFF 12. Anxiety about health - ICD9: 300.09, ICD10: F41.8 - stable without need for meds. 13. Parkinson disease (HCC) - ICD9: 332.0, ICD10: G20 - patient needs to f/u with Neuro. Will help get this arranged. 14. Obesity, Class III, BMI 40-49.9 (morbid obesity) (HCC) - ICD9: 278.01, ICD10: E66.01 Weight decreasing - Behavioral intervention 15. Orthostatic hypotension - ICD9: 458.0, ICD10: I95.1 - stable no changes. 16. Ex-smoker - ICD9: V15.82, ICD10: Z87.891 - patient to continue 17. Low serum vitamin B12 - ICD9: 266.2, ICD10: E53.8 Check - VITAMIN B12 BLOOD - CBC + DIFF 18. Low folate - ICD9: 266.2, ICD10: E53.8 Check - FOLATE SERUM 19. Benign prostatic hyperplasia with urinary obstruction - ICD9: 600.01, 599.69, ICD10: N40.1, N13.8 - no active issues. Will monitor. 20. Bilateral hearing loss, unspecified hearing loss type - ICD9: 389.9, ICD10: H91.93 - patient seeing ENT but does not want hearing aids. 21. Advance directive discussed with patient - ICD9: V65.49, ICD10: Z71.89 - packets provided. 22. Medication management - ICD9: V58.69, ICD10: Z79.899 Check - VITAMIN B12 BLOOD - MAGNESIUM BLD 23. Prostate disorder - ICD9: 602.9, ICD10: N42.9 Check - PSA/PROSTSPECAG DIAG F/u 6 months routine I spent a total of 43 minutes on the date of the service which included preparing to see the patient, [id number] patient care, completing clinical documentation, performing a medically appropriate examination, counseling and educating the patient/family/caregiver and ordering medications, tests, or procedures. Jasson Bright MD documented in this encounter [facility] 01-08-2023 Note HNO ID: [id number] Author: Thao Menchaca PA-C Service: ? 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 Patient is here by himself. Poor historian. Patient states his daughter stated she thought she saw something on his eyelid. He denies any pain or changes in vision. Patient states he hasn't really seen or noticed anything. Patient also had some ear pressure which improved. But would like rechecked. It looks like patient was seen in 08/2022 for otitis media. Last 4 Encounter BP Readings: Date: BP: 01/08/2023 150/76 09/29/2022 178/80 07/13/2022 136/70 07/04/2022 128/66 Past medical history, appointments, medications, allergies reviewed. 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 BPV (benign positional vertigo) 07/01/2015 Chronic tension-type headache, not intractable 06/29/2015 Constipation, chronic 09/01/2009 Coronary artery disease due to lipid rich plaque 05/19/2021 Seeing [facility]: DANISH to Mid RCA and distal RCA 05/12/2021 Diabetes mellitus type 2, controlled, without complications ([facility]) 05/25/2016 Diastasis recti 05/26/2011 Essential hypertension, benign 10/23/2008 12/18/2016: Home BP Cuff Validated. Home BP: 155/89 Office BP: 140/88 Ex-smoker 02/02/2021 Smoked for about 50 yrs and quit around age 65. Could smoke up to 2-4 PPD. GERD without esophagitis 10/23/2008 Low folate 08/16/2021 Low serum vitamin B12 08/16/2021 Mixed hyperlipidemia 10/23/2016 Obesity, Class III, BMI 40-49.9 (morbid obesity) ([facility]) 02/06/2014 Orthostatic hypotension 05/13/2018 Primary malignant neoplasm of skin of upper extremity 06/12/2017 Skin cancer of arm Tubular adenoma 07/02/2018 Previous Surgical History PAST SURGICAL HISTORY Procedure Laterality Date APPENDECTOMY removal of bowel tumor and appendectomy at age 6 years COLONOSCOPY FLX DX W/COLLJ SPEC WHEN PFRMD 07/23/2012 Colonoscopy COLONOSCOPY FLX DX W/COLLJ SPEC WHEN PFRMD 03/19/2013 Colonoscopy Repeat 2 years COLONOSCOPY FLX DX W/COLLJ SPEC WHEN PFRMD 06/21/2016 Colonoscopy (MAC) COLONOSCOPY FLX DX W/COLLJ SPEC WHEN [facility]FRMD [facility] DRUG ELUTING STENT 05/12/2021 Mid and distal RCA ESOPHAGOGASTRODUODENOSCOPY TRANSORAL DIAGNOSTIC 07/23/2012 EGD ESOPHAGOGASTRODUODENOSCOPY TRANSORAL DIAGNOSTIC 06/21/2016 EGD (MAC) PAST SURGICAL HISTORY OF 2002 skin cancer removed from arm RPR UMBILICAL HERNIA < 5 YRS REDUCIBLE 2000 Hernia repair, umbilical Family History FAMILY HISTORY Problem Relation Age of Onset other (brain cancer) Mother Alcohol/Drug Father other (Other) Father both parents - old age , no ill siblings.( has step siblings) Hypertension Sister Prostate Cancer Brother Patient Allergies ALLERGIES Allergen Reactions Cats Cough Current Medications Current Outpatient Medications on File Prior to Visit Medication Sig atorvastatin (LIPITOR) 20 mg tablet Take 1 tablet by mouth daily at bedtime. For cholesterol. pyridoxine, vitamin B6, (VITAMIN B-6) 100 mg tablet Take 1 tablet by mouth once daily. amLODIPine (NORVASC) 5 mg tablet Take 1 tablet by mouth once daily. Per [facility] lisinopril (ZESTRIL, PRINIVIL) 10 mg tablet Take 10 mg by mouth twice daily. pantoprazole DR (PROTONIX) 40 mg tablet Take 1 tablet by mouth as needed. TAKE 1 TABLET BY MOUTH ONCE DAILY IN THE MORNING albuterol HFA 90 mcg/actuation HFA Inhale 90 mcg as instructed every 6 hours as needed. cyanocobalamin (VITAMIN B-12) 1,000 mcg tab Take 1 tablet by mouth once daily. folic acid 1 mg tablet Take 1 tablet by mouth once daily. aspirin, enteric coated (ASPIRIN, ENTERIC COATED) 81 mg EC tablet Take 1 tablet by mouth once daily. acetaminophen (TYLENOL 8 HOUR) 650 mg CR tablet Take 2 tablets by mouth twice daily as needed for Pain. No current facility-administered medications on file prior to visit. Social History Social History Tobacco Use Smoking status: Every Day Packs/day: 2.00 Years: 50.00 Pack years: 100.00 Types: Cigarettes Last attempt to quit: 12/18/2008 Years since quittin.0 Smokeless tobacco: Never Tobacco comments: now smokes about 1/2 pack per day Vaping Use Va (more content not included)... [facility] 01-08-2023 History of Presen t illness Narrative Chief Complaint Patient presents with: Derm Problem: Possible stye right eye lid HPI Kerry Warner is a 77 year old male who presents here today for Above Complaints.. Patient is here by himself. Poor historian. Patient states his daughter stated she thought she saw something on his eyelid. He denies any pain or changes in vision. Patient states he hasn't really seen or noticed anything. Patient also had some ear pressure which improved. But would like rechecked. It looks like patient was seen in 08/2022 for otitis media. Last 4 Encounter BP Readings: Date: BP: 01/08/2023 150/76 09/29/2022 178/80 07/13/2022 136/70 07/04/2022 128/66 Past medical history, appointments, medications, allergies reviewed. 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 BPV (benign positional vertigo) 07/01/2015 Chronic tension-type headache, not intractable 06/29/2015 Constipation, chronic 09/01/2009 Coronary artery disease due to lipid rich plaque 05/19/2021 Seeing [facility]: DANISH to Mid RCA and distal RCA 05/12/2021 Diabetes mellitus type 2, controlled, without complications ([facility]) 05/25/2016 Diastasis recti 05/26/2011 Essential hypertension, benign 10/23/2008 12/18/2016: Home BP Cuff Validated. Home BP: 155/89 Office BP: 140/88 Ex-smoker 02/02/2021 Smoked for about 50 yrs and quit around age 65. Could smoke up to 2-4 PPD. GERD without esophagitis 10/23/2008 Low folate 08/16/2021 Low serum vitamin B12 08/16/2021 Mixed hyperlipidemia 10/23/2016 Obesity, Class III, BMI 40-49.9 (morbid obesity) ([facility]) 02/06/2014 Orthostatic hypotension 05/13/2018 Primary malignant neoplasm of skin of upper extremity 06/12/2017 Skin cancer of arm Tubular adenoma 07/02/2018 Previous Surgical History PAST SURGICAL HISTORY Procedure Laterality Date APPENDECTOMY removal of bowel tumor and appendectomy at age 6 years COLONOSCOPY FLX DX W/COLLJ SPEC WHEN PFRMD 07/23/2012 Colonoscopy COLONOSCOPY FLX DX W/COLLJ SPEC WHEN PFRMD 03/19/2013 Colonoscopy Repeat 2 years COLONOSCOPY FLX DX W/COLLJ SPEC WHEN PFRMD 06/21/2016 Colonoscopy (MAC) COLONOSCOPY FLX DX W/COLLJ SPEC WHEN PFRMD 07/02/2018 [facility] Bojorquez-repeat 3 years DRUG ELUTING STENT 05/12/2021 Mid and distal RCA ESOPHAGOGASTRODUODENOSCOPY TRANSORAL DIAGNOSTIC 07/23/2012 EGD ESOPHAGOGASTRODUODENOSCOPY TRANSORAL DIAGNOSTIC 06/21/2016 EGD (MAC) PAST SURGICAL HISTORY OF 2002 skin cancer removed from arm RPR UMBILICAL HERNIA < 5 YRS REDUCIBLE 2000 Hernia repair, umbilical Family History FAMILY HISTORY Problem Relation Age of Onset other (brain cancer) Mother Alcohol/Drug Father other (Other) Father both parents - old age , no ill siblings.( has step siblings) Hypertension Sister Prostate Cancer Brother Patient Allergies ALLERGIES Allergen Reactions Cats Cough Current Medications Current Outpatient Medications on File Prior to Visit Medication Sig atorvastatin (LIPITOR) 20 mg tablet Take 1 tablet by mouth daily at bedtime. For cholesterol. pyridoxine, vitamin B6, (VITAMIN B-6) 100 mg tablet Take 1 tablet by mouth once daily. amLODIPine (NORVASC) 5 mg tablet Take 1 tablet by mouth once daily. Per [facility] lisinopril (ZESTRIL, PRINIVIL) 10 mg tablet Take 10 mg by mouth twice daily. pantoprazole DR (PROTONIX) 40 mg tablet Take 1 tablet by mouth as needed. TAKE 1 TABLET BY MOUTH ONCE DAILY IN THE MORNING albuterol HFA 90 mcg/actuation HFA Inhale 90 mcg as instructed every 6 hours as needed. cyanocobalamin (VITAMIN B-12) 1,000 mcg tab Take 1 tablet by mouth once daily. folic acid 1 mg tablet Take 1 tablet by mouth once daily. aspirin, enteric coated (ASPIRIN, ENTERIC COATED) 81 mg EC tablet Take 1 tablet by mouth once daily. acetaminophen (TYLENOL 8 HOUR) 650 mg CR tablet Take 2 tablets by mouth twice daily as needed for Pain. No current facility-administered medications on file prior to visit. Social History Social History Tobacco Use Smoking status: Every Day Packs/day: 2.00 Years: 50.00 Pack years: 100.00 Types: Cigarettes Last attempt to quit: 12/18/2008 Years since quittin.0 Smokeless tobacco: Never Tobacco comments: now smokes about 1/2 pack per day Vaping Use Vaping Use: Former Quit date: 10/01/2010 Substance Use Topics Alcohol use: No Drug use: No Review of Symptoms REVIEW OF SYSTEMS See hpi EXAM: BP 150/76 (BP Site: Left Arm, BP Position: Sitting, BP Cuff Size: Large Adult) Pulse (!) 56 Temp 36.4 C (97.6 F) Resp 18 Wt 106.6 kg (235 lb) BMI 36.45 kg/m General Appearance: Well appearing, alert, in no acute distress, well-hydrated, well nourished.. Eyes: Anicteric sclera. Pupils are equally round and reactive to light. Extraocular movements are intact. . Ears: L TM with distorted light reflex. +bulging. No erythema. R tm okay. Canal clear b/l. Health Maintenance List COVID-19 VACCINE(1) Never done HEPATITIS C SCREENING Never done BP CONTROLLED (<130/80) Never done SHINGRIX VACCINE(1 of 2) Never done DILATED RETINAL EXAM due on 05/21/2018 URINE ALBUMIN:CREATININE RATIO due on 05/10/2021 HBA1C due on 08/20/2022 ADVANCE DIRECTIVE DISCUSSION Never done DEPRESSION ASSESSMENT Never done LDL CHOLESTEROL due on 02/17/2023 DIABETIC FOOT EXAM due on 05/22/2023 ANNUAL PCP TEAM CHRONIC DISEASE VISIT due on 07/13/2023 DTAP,TDAP,TD(4 - Td or Tdap) due on 01/10/2029 INFLUENZA Completed PNEUMOCOCCAL: 65+ Completed Data reviewed ASSESSMENT/PLAN: 1. Left ear pain - ICD9: 388.70, ICD10: H92.02 (primary diagnosis) Will get opinion from ENT - CONSULT TO ENT 2. Eye problem - ICD9: V41.1, ICD10: H57.9 Discussed with patient that I did not visualize any abnormalities on exam. 3. Balance disorder - ICD9: 781.99, ICD10: R26.89 Chronic. Will see if ENT thinks related to ear. - CONSULT TO ENT Patient is past due for routine exam/medicare exam. Will attempt to get this scheduled with PCP. Thao Menchaca PA-C documented in this encounter [facility] 09-29-2022 Note HNO ID: [id number] Author: Jessie Jacques APRN.[employer] Service: ? Author Type: Nurse Practitioner Type: Progress Notes Filed: 09/29/2022 3:42 PM Note Text: CC: Patient presents with: Ear Pain: Pt reported (LT) ear pain, cough, x4 days. HPI: Kerry Warner is a 77 year old male who presents to the office with complaint of head congestion, cough, nonproductive, and ear symptoms for a few days. Symptoms are ear pain is worsening Associated symptoms includes ear pain. Denies headache, body aches, fever, nausea, vomiting , and diarrhea. Treatments tried include nothing so far. with no relief of symptoms. Sick contacts: unknown. History of asthma, frequent episodes of bronchitis, chronic bronchitis, bronchiectasis or COPD: No Smoker: No Seasonal/environmental allergies: No The ROS is otherwise negative. The patient's pmh, medications, allergies, and past visits are reviewed. PHYSICAL EXAM: BP 178/80 Pulse 67 Temp 36.7 ?C (98.1 ?F) (Tympanic) Resp 16 Wt 102.7 kg (226 lb 6.4 oz) SpO2 99% BMI 35.12 kg/m? General appearance: alert, cooperative, pleasant, in no acute distress Head: Normocephalic Eyes: EOM's intact, conjunctiva pink and moist, no icterus, sclera white, non-injected Ears: Right ear: External ear/canal- Normal, TM - clear with good landmarks. Left ear: External ear/canal- Normal, TM - erythematous, bulging Oropharynx:moist without lesions, No erythema, exudates or tonsillar hypertrophy. Heart: Negative. RRR without obvious murmur, gallop, or rubs. No ectopy. 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 BPV (benign positional vertigo) 07/01/2015 Chronic tension-type headache, not intractable 06/29/2015 Constipation, chronic 09/01/2009 Coronary artery disease due to lipid rich plaque 05/19/2021 Seeing [facility]: DANISH to Mid RCA and distal RCA 05/12/2021 Diabetes mellitus type 2, controlled, without complications ([facility]) 05/25/2016 Diastasis recti 05/26/2011 Essential hypertension, benign 10/23/2008 12/18/2016: Home BP Cuff Validated. Home BP: 155/89 Office BP: 140/88 Ex-smoker 02/02/2021 Smoked for about 50 yrs and quit around age 65. Could smoke up to 2-4 PPD. GERD without esophagitis 10/23/2008 Low folate 08/16/2021 Low serum vitamin B12 08/16/2021 Mixed hyperlipidemia 10/23/2016 Obesity, Class III, BMI 40-49.9 (morbid obesity) ([facility]) 02/06/2014 Orthostatic hypotension 05/13/2018 Primary malignant neoplasm of skin of upper extremity 06/12/2017 Skin cancer of arm Tubular adenoma 07/02/2018 PAST SURGICAL HISTORY Procedure Laterality Date APPENDECTOMY removal of bowel tumor and appendectomy at age 6 years COLONOSCOPY FLX DX W/COLLJ SPEC WHEN PFRMD 07/23/2012 Colonoscopy COLONOSCOPY FLX DX W/COLLJ SPEC WHEN PFRMD 03/19/2013 Colonoscopy Repeat 2 years COLONOSCOPY FLX DX W/COLLJ SPEC WHEN PFRMD 06/21/2016 Colonoscopy (MAC) COLONOSCOPY FLX DX W/COLLJ SPEC [facility] DRUG ELUTING STENT 05/12/2021 Mid and distal RCA ESOPHAGOGASTRODUODENOSCOPY TRANSORAL DIAGNOSTIC 07/23/2012 EGD ESOPHAGOGASTRODUODENOSCOPY TRANSORAL DIAGNOSTIC 06/21/2016 EGD (MAC) PAST SURGICAL HISTORY OF 2002 skin cancer removed from arm RPR UMBILICAL HERNIA < 5 YRS REDUCIBLE 2000 Hernia repair, umbilical ALLERGIES Cats MEDICATIONS atorvastatin (LIPITOR) 20 mg tablet Take 1 tablet by mouth daily at bedtime. For cholesterol. pyridoxine, vitamin B6, (VITAMIN B-6) 100 mg tablet Take 1 tablet by mouth once daily. amLODIPine (NORVASC) 5 mg tablet Take 1 tablet by mouth once daily. Per [facility] lisinopril (ZESTRIL, PRINIVIL) 10 mg tablet Take 10 mg by mouth twice daily. pantoprazole DR (PROTONIX) 40 mg tablet Take 1 tablet by mouth as needed. TAKE 1 TABLET BY MOUTH ONCE DAILY IN THE MORNING folic acid 1 mg tablet Take 1 tablet by mouth once daily. aspirin, enteric coated (ASPIRIN, ENTERIC COATED) 81 mg EC tablet Take 1 tablet by mouth once daily. amoxicillin (AMOXIL) 875 mg tablet Take 1 tablet by mouth twice daily for 7 days. albuterol HFA 90 mcg/actuation HFA Inhale 90 mcg as instructed every 6 hours as needed. cyanocobalamin (VITAMIN B-12) 1,000 mcg tab Take 1 tablet by mouth once daily. acetaminophen (TYLENOL 8 HOUR) 650 mg CR tablet Take 2 tablets by mouth twice daily as needed for Pain. FAMILY HISTORY (more content not included)... [facility] 09-29-2022 History of Presen t illness Narrative CC: Patient presents with: Ear Pain: Pt reported (LT) ear pain, cough, x4 days. HPI: Kerry Warner is a 77 year old male who presents to the office with complaint of head congestion, cough, nonproductive, and ear symptoms for a few days. Symptoms are ear pain is worsening Associated symptoms includes ear pain. Denies headache, body aches, fever, nausea, vomiting , and diarrhea. Treatments tried include nothing so far. with no relief of symptoms. Sick contacts: unknown. History of asthma, frequent episodes of bronchitis, chronic bronchitis, bronchiectasis or COPD: No Smoker: No Seasonal/environmental allergies: No The ROS is otherwise negative. The patient's pmh, medications, allergies, and past visits are reviewed. PHYSICAL EXAM: BP 178/80 Pulse 67 Temp 36.7 C (98.1 F) (Tympanic) Resp 16 Wt 102.7 kg (226 lb 6.4 oz) SpO2 99% BMI 35.12 kg/m General appearance: alert, cooperative, pleasant, in no acute distress Head: Normocephalic Eyes: EOM's intact, conjunctiva pink and moist, no icterus, sclera white, non-injected Ears: Right ear: External ear/canal- Normal, TM - clear with good landmarks. Left ear: External ear/canal- Normal, TM - erythematous, bulging Oropharynx:moist without lesions, No erythema, exudates or tonsillar hypertrophy. Heart: Negative. RRR without obvious murmur, gallop, or rubs. No ectopy. Lungs: clear to auscultation, without rales or wheeze, good air exchange PAST MEDICAL HISTORY Diagnosis Date Anemia of chronic disease 06/13/2016 Anemia of chronic disease 06/13/2016 Seen by Hematology 03/2022 Anxiety about health 08/21/2015 Balance disorder 02/02/2021 Benign neoplasm of rectum and anal canal Benign neoplasm of stomach Benign prostatic hyperplasia with urinary obstruction 07/15/2012 Bilateral carotid artery stenosis 02/04/2021 US 01/2021: Rt 20-40%, Lt 60-60% Blood pressure instability 02/02/2021 Blood pressure instability 02/02/2021 Chronic: Can be 130's/80's and then 190-200's/90-100's. BPV (benign positional vertigo) 07/01/2015 Chronic tension-type headache, not intractable 06/29/2015 Constipation, chronic 09/01/2009 Coronary artery disease due to lipid rich plaque 05/19/2021 Seeing [facility]: DANISH to Mid RCA and distal RCA 05/12/2021 Diabetes mellitus type 2, controlled, without complications ([facility]) 05/25/2016 Diastasis recti 05/26/2011 Essential hypertension, benign 10/23/2008 12/18/2016: Home BP Cuff Validated. Home BP: 155/89 Office BP: 140/88 Ex-smoker 02/02/2021 Smoked for about 50 yrs and quit around age 65. Could smoke up to 2-4 PPD. GERD without esophagitis 10/23/2008 Low folate 08/16/2021 Low serum vitamin B12 08/16/2021 Mixed hyperlipidemia 10/23/2016 Obesity, Class III, BMI 40-49.9 (morbid obesity) ([facility]) 02/06/2014 Orthostatic hypotension 05/13/2018 Primary malignant neoplasm of skin of upper extremity 06/12/2017 Skin cancer of arm Tubular adenoma 07/02/2018 PAST SURGICAL HISTORY Procedure Laterality Date APPENDECTOMY removal of bowel tumor and appendectomy at age 6 years COLONOSCOPY FLX DX W/COLLJ SPEC WHEN PFRMD 07/23/2012 Colonoscopy COLONOSCOPY FLX DX W/COLLJ SPEC WHEN PFRMD 03/19/2013 Colonoscopy Repeat 2 years COLONOSCOPY FLX DX W/COLLJ SPEC WHEN PFRMD 06/21/2016 Colonoscopy (MAC) COLONOSCOPY FLX DX W/COLLJ SPEC WHEN PFRMD 07/02/2018 [facility]-repeat 3 years DRUG ELUTING STENT 05/12/2021 Mid and distal RCA ESOPHAGOGASTRODUODENOSCOPY TRANSORAL DIAGNOSTIC 07/23/2012 EGD ESOPHAGOGASTRODUODENOSCOPY TRANSORAL DIAGNOSTIC 06/21/2016 EGD (MAC) PAST SURGICAL HISTORY OF 2002 skin cancer removed from arm RPR UMBILICAL HERNIA < 5 YRS REDUCIBLE 2000 Hernia repair, umbilical ALLERGIES Cats MEDICATIONS atorvastatin (LIPITOR) 20 mg tablet Take 1 tablet by mouth daily at bedtime. For cholesterol. pyridoxine, vitamin B6, (VITAMIN B-6) 100 mg tablet Take 1 tablet by mouth once daily. amLODIPine (NORVASC) 5 mg tablet Take 1 tablet by mouth once daily. Per [facility] lisinopril (ZESTRIL, PRINIVIL) 10 mg tablet Take 10 mg by mouth twice daily. pantoprazole DR (PROTONIX) 40 mg tablet Take 1 tablet by mouth as needed. TAKE 1 TABLET BY MOUTH ONCE DAILY IN THE MORNING folic acid 1 mg tablet Take 1 tablet by mouth once daily. aspirin, enteric coated (ASPIRIN, ENTERIC COATED) 81 mg EC tablet Take 1 tablet by mouth once daily. amoxicillin (AMOXIL) 875 mg tablet Take 1 tablet by mouth twice daily for 7 days. albuterol HFA 90 mcg/actuation HFA Inhale 90 mcg as instructed every 6 hours as needed. cyanocobalamin (VITAMIN B-12) 1,000 mcg tab Take 1 tablet by mouth once daily. acetaminophen (TYLENOL 8 HOUR) 650 mg CR tablet Take 2 tablets by mouth twice daily as needed for Pain. FAMILY HISTORY Problem Relation Age of Onset other (brain cancer) Mother Alcohol/Drug Father other (Other) Father both parents - old age , no ill siblings.( has step siblings) Hypertension Sister Prostate Cancer Brother Social History Tobacco Use Smoking status: Every Day Packs/day: 2.00 Years: 50.00 Pack years: 100.00 Types: Cigarettes Last attempt to quit: 12/18/2008 Years since quittin.7 Smokeless tobacco: Never Tobacco comments: now smokes about 1/2 pack per day Vaping Use Vaping Use: Former Quit date: 10/01/2010 Substance Use Topics Alcohol use: No Drug use: No ASSESSMENT/PLAN: 1. Acute otitis media, left - ICD9: 382.9, ICD10: H66.92 Amoxicillin bid for 7 days Prescription instructions reviewed with patient as applicable. Potential red flag symptoms discussed with the patient. Reviewed appropriate action plan to take if red flag symptoms occur. Patient agreeable to treatment plan. Jessie Jacques APRN.SUSHMA documented in this encounter [facility] 09-06-2022 Note HNO ID: [id number] Author: Blake Brown Service: ? Author Type: Physician Type: Progress Notes Filed: 09/06/2022 3:40 PM Note Text: Last saw Thao Menchaca: 07/13/22 Subjective: Patient presents to clinic c/o painful toenails. They state that the nails are especially painful with shoe gear and pressure. Patient had avulsion of left hallux nail plate for infection performed in may. Nail is returning and no issues since. Patient admits to being diabetic. Reports to smoking since his . No other pedal complaints at this time. Patient states no change in medications or medical history since last visit. Objective: [facility] V[facility]: DP and PT pulses are nonpalpable bilateral. CFT is less than 5 seconds bilateral. Skin temperature is warm to cool proximal to distal bilateral. There is mild edema or varicosities noted. Neuro: Protective sensation is decreased to the foot and toes when tested with the 5.07 SWM bilateral. Vibratory sensation is absent at the hallux IPJ bilateral. The hallux is downgoing bilateral. Derm: Nails 1-5 b/l right and 2-5 left painful, discolored-yellow, thick, crumbly, dystrophic and with subungal debris. Skin is dry, thin, pallor and hair growth is absent bilateral. There are no hyperkeratosis, ulcerations, scars, verruca or other lesions noted. Ortho: Muscle strength is 5/5 for all pedal groups tested. Ankle joint DF is decreased with the knee extended with no pain or crepitus noted. 1st MPJ ROM is decreased bilateral. Assessment: (B35.1) Onychomycosis (primary encounter diagnosis) (M79.672) Pain in left foot (M79.674) Pain in toe of right foot (E11.9) Controlled type 2 diabetes mellitus without complication, without long-term current use of insulin (HCC) (R09.89) Diminished pulses in lower extremit (L60.0) Ingrowing toenail Plan: Patient was seen and evaluated. Nails 1-5 right and 2-5 left were debrided in length and thickness. Left hallux nail plate appears to be growing back without issues. If issues were to develop, could consider matrixectomy. Patient was instructed on the continued importance of diabetic foot care along with proper diet and keeping their blood sugar under control to prevent complications. Smoking cessation discussed. Patient is to RTC in 3-4 months. Blake Brown DPM [facility] 09-06-2022 Note HNO ID: [id number] Author: Cheyenne Bruce LPN Service: ? Author Type: LICENSED NURSE Type: Progress Notes Filed: 09/06/2022 3:40 PM Note Text: AMB ROOMING INTAKE FLOWSHEET DATA Risk Screening Do you have concerns about personal safety or safety in the home?: No Patient presents with: Left Foot - Established Patient, Follow Up, nail care Right Foot - Established Patient, Follow Up, nail care Called daughter jj and confirmed all medications. Cheyenne Bruce LPN [facility] 09-06-2022 History of Presen t illness Narrative Last saw Thao Menchaca: 07/13/22 Subjective: Patient presents to clinic c/o painful toenails. They state that the nails are especially painful with shoe gear and pressure. Patient had avulsion of left hallux nail plate for infection performed in may. Nail is returning and no issues since. Patient admits to being diabetic. Reports to smoking since his . No other pedal complaints at this time. Patient states no change in medications or medical history since last visit. Objective: Patient presents to clinic ambulating in sneakers Vasc: DP and PT pulses are nonpalpable bilateral. CFT is less than 5 seconds bilateral. Skin temperature is warm to cool proximal to distal bilateral. There is mild edema or varicosities noted. Neuro: Protective sensation is decreased to the foot and toes when tested with the 5.07 SWM bilateral. Vibratory sensation is absent at the hallux IPJ bilateral. The hallux is downgoing bilateral. Derm: Nails 1-5 b/l right and 2-5 left painful, discolored-yellow, thick, crumbly, dystrophic and with subungal debris. Skin is dry, thin, pallor and hair growth is absent bilateral. There are no hyperkeratosis, ulcerations, scars, verruca or other lesions noted. Ortho: Muscle strength is 5/5 for all pedal groups tested. Ankle joint DF is decreased with the knee extended with no pain or crepitus noted. 1st MPJ ROM is decreased bilateral. Assessment: (B35.1) Onychomycosis (primary encounter diagnosis) (M79.672) Pain in left foot (M79.674) Pain in toe of right foot (E11.9) Controlled type 2 diabetes mellitus without complication, without long-term current use of insulin (HCC) (R09.89) Diminished pulses in lower extremit (L60.0) Ingrowing toenail Plan: Patient was seen and evaluated. Nails 1-5 right and 2-5 left were debrided in length and thickness. Left hallux nail plate appears to be growing back without issues. If issues were to develop, could consider matrixectomy. Patient was instructed on the continued importance of diabetic foot care along with proper diet and keeping their blood sugar under control to prevent complications. Smoking cessation discussed. Patient is to RTC in 3-4 months. Blake Brown DPM AMB ROOMING INTAKE FLOWSHEET DATA Risk Screening Do you have concerns about personal safety or safety in the home?: No Patient presents with: Left Foot - Established Patient, Follow Up, nail care Right Foot - Established Patient, Follow Up, nail care Called daughter jj and confirmed all medications. Cheyenne Bruce LPN documented in this encounter [facility] 09-06-2022 Instructions Blake Brown - 09/06/2022 2:06 PM EST Diabetes Foot Care Instructions When you have diabetes, proper foot care is very important. Poor foot care may lead to amputation of a foot or leg. As a person with diabetes, you are more vulnerable to foot problems, because diabetes can damage your nerves and reduce blood flow to your feet. Here are some diabetes foot care tips to follow: Wash and Dry Your Feet Daily Use mild soaps Use warm water Pat your skin dry; do not rub. Thoroughly dry your feet. After washing, use lotion on your feet to prevent cracking. Do not put lotion between your toes. Examine Your Feet Each Day Check the tops and bottoms of your feet. Have someone else look at your feet if you cannot see them. Check for dry, cracked skin. Look for blisters, cuts, scratches, or other sores. Check for redness, increased warmth, or tenderness when touching any area of your feet. Check for ingrown toenails, corns, and calluses. If you get a blister or sore from your shoes, do not pop it. Apply a bandage and wear a different pair of shoes. Take Care of Your Toenails Cut toenails after bathing, when they are soft. Cut toenails straight across and smooth with a nail file. Avoid cutting into the corners of toes. Do not cut cuticles. If you have neuropathy (or decreased sensation in your feet) a manager pricing should always cut your toenails. Be Careful When Exercising Walk and exercise in comfortable shoes. Do not exercise when you have open sores on your feet. Protect Your Feet With Shoes and Socks Never go barefoot. Always protect your feet by wearing shoes or hard-soled slippers or footwear. Avoid shoes with high heels and pointed toes. Avoid shoes that expose your toes or heels (such as open-toed shoes or sandals). These types of shoes increase your risk for injury and potential infections. Try on new footwear with the type of socks you usually wear. Do not wear new shoes for more than an hour at a time. Change your socks daily. Look and feel inside your shoes before putting them on to make sure there are no foreign objects or rough areas. Avoid tight socks. Wear natural-fiber socks (cotton, wool, or a cotton-wool blend). Wear special shoes if your health care provider recommends them. Wear shoes/boots that will protect your feet from various weather conditions (cold, moisture, etc.). Make sure your shoes fit properly. If you have neuropathy (nerve damage), you may not notice that your shoes are too tight. Perform the footwear test described below. Footwear Test Use this simple test to see if your shoes fit correctly: Stand on a piece of paper. (Make sure you are standing and not sitting, because your foot changes shape when you stand.) Trace the outline of your foot. Trace the outline of your shoe. Compare the tracings: Is the shoe too narrow? Is your foot crammed into the shoe? The shoe should be at least 1/2 inch longer than your longest toe and as wide as your foot. Proper Shoe Choices The following types of shoes are best for people with diabetes Closed toes and heels Leather uppers without a seam inside At least 1/2 inch extra space at the end of your longest toe Inside of shoe should be soft with no rough areas Outer sole should be made of stiff material Shoes should be at least as wide as your feet Tips for Foot Care in Diabetes Don't wait to treat a minor foot problem if you have diabetes. Follow your health care provider's guidelines and first aid guidelines. Report foot injuries and infections to your health care provider immediately. Check water temperature with your elbow, not your foot. Do not use a heating pad on your feet. Do not cross your legs. Do not self-treat your corns, calluses, or other foot problems. Go to your health care provider or manager pricing to treat these conditions. documented in this encounter [facility] 09-04-2022 Miscellaneous Notes The following approved medication requests have been transmitted electronically. Requested Prescriptions Signed Prescriptions Disp Refills atorvastatin (LIPITOR) 20 mg tablet 30 tablet 5 Sig: Take 1 tablet by mouth daily at bedtime. For cholesterol. Authorizing Provider: JASSON BRIGHT MD Patient has been identified by name and date of : Yes Requested Prescriptions Pending Prescriptions Disp Refills atorvastatin (LIPITOR) 20 mg tablet 30 tablet 5 Sig: Take 1 tablet by mouth daily at bedtime. For cholesterol. RX INSTRUCTIONS: Patient aware RX will be sent to pharmacy. No need to notify patient. Yuly Jacques MA Jason: 07/2022 Nov: 08/2022 Last refill: 01/2022 documented in this encounter [facility] 08-14-2022 Miscellaneous Notes Noted. Spoke with daughter and gave PCP instructions. She voiced understanding and will have patient come to the lab. She indicated no issues with SOB; chest pain or additional fatigue. Only issue he sometimes complains about his is dizziness but she indicated that he has had this for quite some time. So no new symptoms. Yuly Jacques MA Let daughter know Sreedhar has Anemia of chronic disease. In the past year his hemoglobin has been between 8.7-10.6. Has he been complaining of fatigue, shortness of breath or chest tightness? I also know there is sometimes a discrepancy between our labs and [facility]. I would like to get a CBC through use along with iron, B12 and Folate. Orders placed. Patient's POA/dtr Libia (Jj) calling to state patient had lab work completed by Dr. Nguyen's office last Sunday08/11/22. She was informed by Dr. Nguyen's office that pt's hemoglobin was low and information would be sent to Dr. Bright's office for him to advise. Libia asking if PCP office receiving this information? Please advise her at [phone]. Thank you. documented in this encounter [facility] 07-13-2022 History of Presen t illness Narrative Chief Complaint Patient presents with: Recheck HPI Kerry Warner is a 77 year old male who presents here today for recheck. Patient was seen on 07/04/2022 for ER follow up after a fall that he had on 06/25. He had discussed with the provider that day a couple different concerns. Patient states that since he has stopped florinef, he has not had any more issues with back pain, drooling, and cough. He denies any other concern today. Reports that he uses his walker most of the time, but not always consistent in his home. No other falls recently. Patient was dx with possible parkinsons and was on Sinemet however patient stopped medication and does not wish to return at this time. Past medical history, appointments, medications, allergies reviewed. 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 BPV (benign positional vertigo) 07/01/2015 Chronic tension-type headache, not intractable 06/29/2015 Constipation, chronic 09/01/2009 Coronary artery disease due to lipid rich plaque 05/19/2021 Seeing [facility]: DANISH to Mid RCA and distal RCA 05/12/2021 Diabetes mellitus type 2, controlled, without complications ([facility]) 05/25/2016 Diastasis recti 05/26/2011 Essential hypertension, benign 10/23/2008 12/18/2016: Home BP Cuff Validated. Home BP: 155/89 Office BP: 140/88 Ex-smoker 02/02/2021 Smoked for about 50 yrs and quit around age 65. Could smoke up to 2-4 PPD. GERD without esophagitis 10/23/2008 Low folate 08/16/2021 Low serum vitamin B12 08/16/2021 Mixed hyperlipidemia 10/23/2016 Obesity, Class III, BMI 40-49.9 (morbid obesity) (HCC) 02/06/2014 Orthostatic hypotension 05/13/2018 Primary malignant neoplasm of skin of upper extremity 06/12/2017 Skin cancer of arm Tubular adenoma 07/02/2018 Previous Surgical History PAST SURGICAL HISTORY Procedure Laterality Date APPENDECTOMY removal of bowel tumor and appendectomy at age 6 years COLONOSCOPY FLX DX W/COLLJ SPEC WHEN PFRMD 07/23/2012 Colonoscopy COLONOSCOPY FLX DX W/COLLJ SPEC WHEN PFRMD 03/19/2013 Colonoscopy Repeat 2 years COLONOSCOPY FLX DX W/COLLJ SPEC WHEN PFRMD 06/21/2016 Colonoscopy (MAC) COLONOSCOPY FLX DX W/COLLJ SPE[facility] DRUG ELUTING STENT 05/12/2021 Mid and distal RCA ESOPHAGOGASTRODUODENOSCOPY TRANSORAL DIAGNOSTIC 07/23/2012 EGD ESOPHAGOGASTRODUODENOSCOPY TRANSORAL DIAGNOSTIC 06/21/2016 EGD (MAC) PAST SURGICAL HISTORY OF 2002 skin cancer removed from arm RPR UMBILICAL HERNIA < 5 YRS REDUCIBLE 2000 Hernia repair, umbilical Family History FAMILY HISTORY Problem Relation Age of Onset other (brain cancer) Mother Alcohol/Drug Father other (Other) Father both parents - old age , no ill siblings.( has step siblings) Hypertension Sister Prostate Cancer Brother Patient Allergies ALLERGIES Allergen Reactions Cats Cough Current Medications Current Outpatient Medications on File Prior to Visit Medication Sig meloxicam (MOBIC) 7.5 mg tablet Take 1 tablet by mouth once daily for 14 days. Take with food. doxycycline hyclate (VIBRAMYCIN) 100 mg capsule Take 1 capsule by mouth twice daily. (Patient not taking: Reported on 06/07/2022) cephALEXin (KEFLEX) 500 mg capsule Take 1 capsule by mouth three times daily. pyridoxine, vitamin B6, (VITAMIN B-6) 100 mg tablet Take 1 tablet by mouth once daily. atorvastatin (LIPITOR) 20 mg tablet Take 1 tablet by mouth daily at bedtime. For cholesterol. amLODIPine (NORVASC) 5 mg tablet Take 1 tablet by mouth once daily. Per [facility] lisinopril (ZESTRIL, PRINIVIL) 10 mg tablet Take 10 mg by mouth twice daily. pantoprazole DR (PROTONIX) 40 mg tablet Take 1 tablet by mouth as needed. TAKE 1 TABLET BY MOUTH ONCE DAILY IN THE MORNING albuterol HFA 90 mcg/actuation HFA Inhale 90 mcg as instructed every 6 hours as needed. cyanocobalamin (VITAMIN B-12) 1,000 mcg tab Take 1 tablet by mouth once daily. folic acid 1 mg tablet Take 1 tablet by mouth once daily. aspirin, enteric coated (ASPIRIN, ENTERIC COATED) 81 mg EC tablet Take 1 tablet by mouth once daily. acetaminophen (TYLENOL 8 HOUR) 650 mg CR tablet Take 2 tablets by mouth twice daily as needed for Pain. No current facility-administered medications on file prior to visit. Social History Social History Tobacco Use Smoking status: Every Day Packs/day: 2.00 Years: 50.00 Pack years: 100.00 Types: Cigarettes Last attempt to quit: 12/18/2008 Years since quittin.5 Smokeless tobacco: Never Tobacco comments: now smokes about 1/2 pack per day Vaping Use Vaping Use: Former Quit date: 10/01/2010 Substance Use Topics Alcohol use: No Drug use: No Review of Symptoms REVIEW OF SYSTEMS GENERAL: No weight loss, malaise or fevers NECK: Negative for lumps, goiter, pain and significant neck swelling RESPIRATORY: Negative for cough, hemoptysis, wheezing, COPD, dyspnea or shortness of breath CARDIOVASCULAR: Negative for chest pain, leg swelling, hypertension, CHF or palpitations EXAM: BP 136/70 Pulse 62 Resp 16 Wt 97.1 kg (214 lb) BMI 33.20 kg/m General Appearance: Well appearing, alert, in no acute distress, well-hydrated, well nourished.. Neck: Supple, no adenopathy; thyroid symmetric, normal size, no bruits. Lungs: Lungs clear to auscultation. No wheezing, rhonchi, rales.. Heart: RRR without murmur, gallop, or rubs. No ectopy. Peripheral Pulses: Normal. Neurologic: Gait normal. Reflexes normal and symmetric. Sensation grossly intact.. Health Maintenance List COVID-19 VACCINE(1) Never done HEPATITIS C SCREENING Never done SHINGRIX VACCINE(1 of 2) Never done DILATED RETINAL EXAM due on 05/21/2018 URINE ALBUMIN:CREATININE RATIO due on 05/10/2021 ADVANCE DIRECTIVE DISCUSSION Never done DEPRESSION ASSESSMENT Never done HBA1C due on 08/20/2022 LDL CHOLESTEROL due on 02/17/2023 DIABETIC FOOT EXAM due on 05/22/2023 ANNUAL PCP TEAM CHRONIC DISEASE VISIT due on 07/04/2023 BP CONTROLLED (<130/80) due on 07/04/2023 DTAP,TDAP,TD(4 - Td or Tdap) due on 01/10/2029 INFLUENZA Completed PNEUMOCOCCAL: 65+ Completed Data reviewed ASSESSMENT/PLAN: 1. Fall, subsequent encounter - ICD9: V58.89, E888.9, ICD10: W19.XXXD (primary diagnosis) Patient denies any further concerns or recent falls. Doesn't want to do Physical Therapy or set back up with neuro currently. 2. Balance disorder - ICD9: 781.99, ICD10: R26.89 As above 3. Parkinson disease (HCC) - ICD9: 332.0, ICD10: G20 As above. Follow up as scheduled in August. 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 Bright to discuss drooling and follow up for back pain Keep head laceration clean and dry Return as needed documented in this encounter [facility] 07-04-2022 History of Presen t illness Narrative This is a 77 year old male who presents today with: Patient presents with: ER F/U: [facility] ER follow up 06/25 dx: fall; received 3 silvestre on back of head Cough: Started a couple weeks ago; productive, sounds wet drooling: Better after stopping florinef Back Pain: X1 yr HISTORY OF PRESENT ILLNESS: Kerry Warner is a 77 year old male. Patient presents with: ER F/U: [facility] ER follow up 06/25 dx: fall; received 3 silvestre on back of head Cough: Started a couple weeks ago; productive, sounds wet drooling: Better after stopping florinef Back Pain: X1 yr Pt is here for ER follow up after a mechanical fall. Pt with 3 silvestre to the posterior scalp. Pt denies any other injuries or LOC from the fall. Pt denies SOUZA, dizziness, blurred vision. He presented to the emergency room on 06/25/2022. He had CT of the cervical spine that showed multilevel degenerative changes. He had a CT of the brain which showed chronic involutional changes. No acute intracranial hemorrhage. There is a left occipital scalp hematoma without a skull fracture. He had 3 silvestre placed into the laceration of the occipital scalp. Pt c/o low back pain x 1 year. Pt states pain is aggravated by standing or moving. Pain is relieved by laying flat. Pt states he uses Tylenol with no relief. Reports that he has done physical therapy in the past. Refers that he has tried muscle relaxers in the past, which didn't help. He has a hx of sciatic pain, but does not feel like that and no radiation down the legs. Urinating okay -- since stopping that pill. He denies any painful urination or hematuria. Describes pain in the bilateral lower back. He reports drooling. He reports that this has been going on for the last 5 years. Daughter reports that it has improved, but has started again in the last few weeks - month -- since hitting head. He previously was following w/ neurology. Reports hasn't been seen in some time and doesn't desire to return right now. He previously was on sinemet, but pt/daughter reports this was stopped while he was in the residential. 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 BPV (benign positional vertigo) 07/01/2015 Chronic tension-type headache, not intractable 06/29/2015 Constipation, chronic 09/01/2009 Coronary artery disease due to lipid rich plaque 05/19/2021 Seeing [facility]: DANISH to Mid RCA and distal RCA 05/12/2021 Diabetes mellitus type 2, controlled, without complications ([facility]) 05/25/2016 Diastasis recti 05/26/2011 Essential hypertension, benign 10/23/2008 12/18/2016: Home BP Cuff Validated. Home BP: 155/89 Office BP: 140/88 Ex-smoker 02/02/2021 Smoked for about 50 yrs and quit around age 65. Could smoke up to 2-4 PPD. GERD without esophagitis 10/23/2008 Low folate 08/16/2021 Low serum vitamin B12 08/16/2021 Mixed hyperlipidemia 10/23/2016 Obesity, Class III, BMI 40-49.9 (morbid obesity) ([facility]) 02/06/2014 Orthostatic hypotension 05/13/2018 Primary malignant neoplasm of skin of upper extremity 06/12/2017 Skin cancer of arm Tubular adenoma 07/02/2018 PAST SURGICAL HISTORY Procedure Laterality Date APPENDECTOMY removal of bowel tumor and appendectomy at age 6 years COLONOSCOPY FLX DX W/COLLJ SPEC WHEN PFRMD 07/23/2012 Colonoscopy COLONOSCOPY FLX DX W/COLLJ SPEC WHEN PFRMD 03/19/2013 Colonoscopy Repeat 2 years COLONOSCOPY FLX DX W/COLLJ SPEC WHEN PFRMD 06/21/2016 Colonoscopy (MAC) COLONOSCOPY FLX DX W/COLLJ SPEC WHEN PFRMD 07/02/2018 [facility]Steven Bojorquez-repeat 3 years DRUG ELUTING STENT 05/12/2021 Mid and distal RCA ESOPHAGOGASTRODUODENOSCOPY TRANSORAL DIAGNOSTIC 07/23/2012 EGD ESOPHAGOGASTRODUODENOSCOPY TRANSORAL DIAGNOSTIC 06/21/2016 EGD (MAC) PAST SURGICAL HISTORY OF 2002 skin cancer removed from arm RPR UMBILICAL HERNIA < 5 YRS REDUCIBLE 2000 Hernia repair, umbilical ALLERGIES Cats MEDICATIONS Current Outpatient Medications Medication Sig pyridoxine, vitamin B6, (VITAMIN B-6) 100 mg tablet Take 1 tablet by mouth once daily. atorvastatin (LIPITOR) 20 mg tablet Take 1 tablet by mouth daily at bedtime. For cholesterol. amLODIPine (NORVASC) 5 mg tablet Take 1 tablet by mouth once daily. Per [facility] lisinopril (ZESTRIL, PRINIVIL) 10 mg tablet Take 10 mg by mouth twice daily. pantoprazole DR (PROTONIX) 40 mg tablet Take 1 tablet by mouth as needed. TAKE 1 TABLET BY MOUTH ONCE DAILY IN THE MORNING albuterol HFA 90 mcg/actuation HFA Inhale 90 mcg as instructed every 6 hours as needed. cyanocobalamin (VITAMIN B-12) 1,000 mcg tab Take 1 tablet by mouth once daily. folic acid 1 mg tablet Take 1 tablet by mouth once daily. aspirin, enteric coated (ASPIRIN, ENTERIC COATED) 81 mg EC tablet Take 1 tablet by mouth once daily. acetaminophen (TYLENOL 8 HOUR) 650 mg CR tablet Take 2 tablets by mouth twice daily as needed for Pain. doxycycline hyclate (VIBRAMYCIN) 100 mg capsule Take 1 capsule by mouth twice daily. (Patient not taking: Reported on 06/07/2022) cephALEXin (KEFLEX) 500 mg capsule Take 1 capsule by mouth three times daily. carbidopa-levodopa (SINEMET) 25-100 mg per tablet Take 0.5 tablets by mouth three times daily. clopidogrel (PLAVIX) 75 mg tablet Take 1 tablet by mouth once daily. TAKE 1 TABLET BY MOUTH ONCE DAILY IN THE MORNING No current facility-administered medications for this visit. FAMILY HISTORY Problem Relation Age of Onset other (brain cancer) Mother Alcohol/Drug Father other (Other) Father both parents - old age , no ill siblings.( has step siblings) Hypertension Sister Prostate Cancer Brother Social History Tobacco Use Smoking status: Every Day Packs/day: 2.00 Years: 50.00 Pack years: 100.00 Types: Cigarettes Last attempt to quit: 12/18/2008 Years since quittin.5 Smokeless tobacco: Never Tobacco comments: now smokes about 1/2 pack per day Vaping Use Vaping Use: Former Quit date: 10/01/2010 Substance Use Topics Alcohol use: No Drug use: No EXAM: BP 128/66 Pulse 65 Resp 18 SpO2 97% PHYSICAL EXAM: General Appearance: Well appearing, alert, in no acute distress, well-hydrated, well nourished.. Skin: Skin color, texture, turgor normal, no suspicious rashes or lesions. Laceration to occiptal scalp well healed. Three silvestre removed without difficulty. Head: Normocephalic, no masses, lesions, tenderness or abnormalities. Eyes: Anicteric sclera. Extraocular movements are intact. . Back:no pain to palpation of vertebrae, no muscle tenderness, motor and sensory appear to be normal. = strength of LE. Lungs: Lungs clear to auscultation. No wheezing, rhonchi, rales.. Heart: RRR without murmur, gallop, or rubs. No ectopy. Neurologic: Gait normal with walker. ASSESSMENT/PLAN: 1. Fall, subsequent encounter - ICD9: V58.89, E888.9, ICD10: W19.XXXD (primary diagnosis) Presents today to have silvestre removed. Three silvestre removed from posterior head. Laceration well healed without s/s of infection. 2. Chronic midline low back pain without sciatica - ICD9: 724.2, 338.29, ICD10: M54.50, G89.29 Reports tylenol is not effective. Will start meloxicam X 2 weeks. Recheck in 2 weeks. 3. Need for influenza vaccination - ICD9: V04.81, ICD10: Z23 - INFLUENZA SEASONAL QUADRIVALENT HIGH DOSE AGE 65+ 4. Drooling - ICD9: 527.7, ICD10: K11.7 Reports increased drooling. Reports that this has improved somewhat since stopping the Florinef. He is not been evaluated by neurology recently. He declines to do this at this time. We will plan on having patient back for reevaluation with primary team to discuss. 5. Parkinson disease (HCC) - ICD9: 332.0, ICD10: G20 Declines return to neurology at this time. Discussed treatment plan and patient voices understanding. Patient's questions answered appropriately. Medications and potential side effects were discussed and patient voices understanding. Return to the office as scheduled or as needed for worsening/no improvement. Charlene Wayne APRN.SUSHMA The patient indicates understanding of these issues and agrees with the plan. This note was partially generated using Affectv voice recognition system. Note was reviewed for accuracy. There may be minor misspellings or grammar miscues with [employer]v voice recognition. documented in this encounter [facility] 06-07-2022 Instructions Blake Brown - 06/07/2022 1:08 PM EDT Your wound is now healed. There does not appear to be any signs of infection You no longer require bandage Would consider permanent removal in the future. documented in this encounter [facility] 06-07-2022 History of Presen t illness Narrative FOLLOW UP PODIATRIC OFFICE VISIT Chief Complaint: This 76 year old who presents for follow up:left hallux toenail avulsoin Patient presents to clinic for follow-up left hallux toenail avulsion Patient has no pain He has no drainage He has finished antibiotic PAIN EVALUATION No data found in the last 1 encounters. Hemoglobin A1C (POCT) Date Value Ref Range Status 02/17/2022 5.3 4.2 - 5.6 % Final Comment: Location:[address], [place], [place], [facility] Point of care (POC) Hemoglobin A1c (HGBA1C) testing is intended to assess glucose control and provide a management tool for patients known to have diabetes and their healthcare providers. Target HGBA1C levels may depend on specific clinical circumstances. POC HGBA1C is not intended for use as a diagnostic or screening test; laboratory-based testing should be used for diagnostic purposes. The following information is supplemental and may not be applicable to specific diabetes management situations: The POC device precision grinder provides a normal range of 4.2% to 6.5% for the HGBA1C POC test. However, the [place] [employer] guidelines indicate that patients with HGBA1C in the range of 5.7% to 6.4% are at increased risk for development of diabetes and that intervention by lifestyle modification may be beneficial. A HGBA1C level greater than or equal to 6.5% is considered diagnostic of diabetes, pending confirmatory testing. Use of HGBA1C testing to evaluate glucose control may not be appropriate for patients with hemoglobin variants or other conditions (e.g. anemia) that alter red blood cell lifespan. 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 BPV (benign positional vertigo) 07/01/2015 Chronic tension-type headache, not intractable 06/29/2015 Constipation, chronic 09/01/2009 Coronary artery disease due to lipid rich plaque 05/19/2021 Seeing [facility]: DANISH to Mid RCA and distal RCA 05/12/2021 Diabetes mellitus type 2, controlled, without complications ([facility]) 05/25/2016 Diastasis recti 05/26/2011 Essential hypertension, benign 10/23/2008 12/18/2016: Home BP Cuff Validated. Home BP: 155/89 Office BP: 140/88 Ex-smoker 02/02/2021 Smoked for about 50 yrs and quit around age 65. Could smoke up to 2-4 PPD. GERD without esophagitis 10/23/2008 Low folate 08/16/2021 Low serum vitamin B12 08/16/2021 Mixed hyperlipidemia 10/23/2016 Obesity, Class III, BMI 40-49.9 (morbid obesity) ([facility]) 02/06/2014 Orthostatic hypotension 05/13/2018 Primary malignant neoplasm of skin of upper extremity 06/12/2017 Skin cancer of arm Tubular adenoma 07/02/2018 Current Outpatient Medications Medication Sig cephALEXin (KEFLEX) 500 mg capsule Take 1 capsule by mouth three times daily. pyridoxine, vitamin B6, (VITAMIN B-6) 100 mg tablet Take 1 tablet by mouth once daily. atorvastatin (LIPITOR) 20 mg tablet Take 1 tablet by mouth daily at bedtime. For cholesterol. amLODIPine (NORVASC) 5 mg tablet Take 1 tablet by mouth once daily. Per [facility] lisinopril (ZESTRIL, PRINIVIL) 10 mg tablet Take 10 mg by mouth twice daily. pantoprazole DR (PROTONIX) 40 mg tablet Take 1 tablet by mouth as needed. TAKE 1 TABLET BY MOUTH ONCE DAILY IN THE MORNING albuterol HFA 90 mcg/actuation HFA Inhale 90 mcg as instructed every 6 hours as needed. cyanocobalamin (VITAMIN B-12) 1,000 mcg tab Take 1 tablet by mouth once daily. folic acid 1 mg tablet Take 1 tablet by mouth once daily. clopidogrel (PLAVIX) 75 mg tablet Take 1 tablet by mouth once daily. TAKE 1 TABLET BY MOUTH ONCE DAILY IN THE MORNING aspirin, enteric coated (ASPIRIN, ENTERIC COATED) 81 mg EC tablet Take 1 tablet by mouth once daily. acetaminophen (TYLENOL 8 HOUR) 650 mg CR tablet Take 2 tablets by mouth twice daily as needed for Pain. doxycycline hyclate (VIBRAMYCIN) 100 mg capsule Take 1 capsule by mouth twice daily. (Patient not taking: Reported on 06/07/2022) carbidopa-levodopa (SINEMET) 25-100 mg per tablet Take 0.5 tablets by mouth three times daily. No current facility-administered medications for this visit. ALLERGIES Allergen Reactions Cats Cough PAST SURGICAL HISTORY Procedure Laterality Date APPENDECTOMY removal of bowel tumor and appendectomy at age 6 years COLONOSCOPY FLX DX W/COLLJ SPEC WHEN PFRMD 07/23/2012 Colonoscopy COLONOSCOPY FLX DX W/COLLJ SPEC WHEN PFRMD 03/19/2013 Colonoscopy Repeat 2 years COLONOSCOPY FLX DX W/COLLJ SPEC WHEN PFRMD 06/21/2016 Colonoscopy (MAC) COLONOSCOPY FLX DX W/COLLJ SPEC [facility] DRUG ELUTING STENT 05/12/2021 Mid and distal RCA ESOPHAGOGASTRODUODENOSCOPY TRANSORAL DIAGNOSTIC 07/23/2012 EGD ESOPHAGOGASTRODUODENOSCOPY TRANSORAL DIAGNOSTIC 06/21/2016 EGD (MAC) PAST SURGICAL HISTORY OF 2002 skin cancer removed from arm RPR UMBILICAL HERNIA < 5 YRS REDUCIBLE 2000 Hernia repair, umbilical Physical Exam: OBJECTIVE: Constitutional: Pt is a well developed 76 year old male who is alert, oriented, cooperative and in no apparent distress. Eyes: Following during examination. No redness or drainage. Respiratory: RR normal and nonlabored. Even breathing. No evidence of distress. Psychology: Patient is engaged during conversation. Normal affect and mood. Does not appear depressed or anxious. NVSI unchanged from previous visit. Dermatological: Left great toe nail bed is now healed. No signs of infection ASSESSMENT: (S91.109A) Open wound of toe, initial encounter (primary encounter diagnosis) PLAN: Patient toe is now healed He no longer requires bandage Ingrown will likely return. I would make plans to do a permanent removal in 4-5 months once the nail starts growing distally He will determine if this is something he wishes to do Blake Brown DPM Patient presents with: Left Great Toe - Follow Up 2 week follow up total nail avulsion left hallux AMB ROOMING INTAKE FLOWSHEET DATA Risk Screening Do you have concerns about personal safety or safety in the home?: No Patient denies any pain today. Patient has been applying Neosporin once daily. He has finished taking his antibiotic. documented in this encounter [facility] 05-22-2022 History of Presen t illness Narrative UNIVERSAL PROTOCOL / SAFETY CHECKLIST Procedure to be Performed: total nail avulsion, left hallux Sign In: A Moment of CARE was completed. Personnel directly involved with the procedure wore the appropriate PPE (Personal Protective Equipment). No special equipment needed. Patient/Surrogate Stated/Verified: PATIENT VERIFIED(optional for EMERGENT procedures): Patient name, Date of , Relevant allergies, and The intended procedure Time Out Communication: Intended patient and procedure match the source documents. Consent documented and matches the intended procedure. Relevant labs, photos, and/or imaging studies have been reviewed. Correct side/site marked and visible. Medications required for procedure verified. No fire risk assessment and interventions applicable. No implant(s) inserted. Sign Out: SIGN OUT (optional for EMERGENT procedures): All specimen containers correctly labeled. All instruments, equipment, possible retained foreign bodies accounted for. Post-procedure follow-up management communicated and Plan of Care Visit completed when applicable. Cheyenne Bruce LPN Last saw Dr. Bright: 02/17/22 Subjective: Patient presents to clinic c/o painful toenails. They state that the nails are especially painful with shoe gear and pressure. Patient states that nails left hallux are painful. Does report ingrowing toenail of left hallux x 1.5 months. Reports current drainage and pain. Patient admits to being diabetic. No other pedal complaints at this time. Patient states no change in medications or medical history since last visit. Objective: Patient presents to clinic ambulating in diabetic shoes Vasc: DP and PT pulses are palpable bilateral. CFT is less than 5 seconds bilateral. Skin temperature is warm to cool proximal to distal bilateral. There is mild edema or varicosities noted. Non-Invasive Vascular Laboratory [facility] Lower Extremity Arterial Physiology Study Bilateral/Complete Date of service/time: 01/14/2021 12:35:21 PM Name: MR. KERRY WARNER Date of : 1945 Age: 75 years Gender: M Clinical Indication Abnormal pulses. TECHNIQUE -------- An arterial physiological examination was performed, including measurement of blood pressures using continuous wave Doppler and recording of plethysmographic with or without Doppler waveforms at the below-mentioned limb segments. FINDINGS -------- RIGHT SIDE AT REST Right Doppler Waveforms Dorsalis pedis: Triphasic. Post tibial: Triphasic. Right Pressures Brachial: 130 mmHg Ankle dorsalis pedis: 157 mmHg LEONIDES: 1.21 Ankle posterior tibial: 142 mmHg LEONIDES: 1.09 Digit: 113 mmHg Right PVR Waveforms Ankle: Normal. Digit: Normal. LEFT SIDE AT REST Left Doppler Waveforms Dorsalis pedis: Triphasic. Post tibial: Triphasic. Left Pressures Brachial: 127 mmHg Ankle dorsalis pedis: 152 mmHg LEONIDES: 1.17 Ankle posterior tibial: 165 mmHg LEONIDES: 1.27 Digit: 120 mmHg Left PVR Waveforms Ankle: Normal. Digit: Normal. IMPRESSION RIGHT SIDE Resting right ankle brachial index: 1.21 Right toe brachial index: 0.87 Normal ankle brachial index at rest in the right leg. Normal toe brachial index at rest in the right leg. Right ankle: Normal at rest. LEFT SIDE Resting left ankle brachial index: 1.27 Left toe brachial index: 0.92 Normal ankle brachial index at rest in the left leg. Normal toe brachial index at rest in the left leg. Left ankle: Normal at rest. Technologist: Rabia Maradiaga T Ordering physician: BLAKE BROWN Interpreting physician: LETI Sampson DO Neuro: Protective sensation is decreased to the foot and toes when tested with the 5.07 SWM bilateral. Vibratory sensation is absent at the hallux IPJ bilateral. The hallux is downgoing bilateral. Derm: Nails 1-5 b/l are painful, discolored-yellow, thick, crumbly, dystrophic and with subungal debris. Left hallux entire nail is ingrown, draining with redness and swelling. + foul odor in left great toe. Skin is of normal turgor, texture and hair growth is present bilateral. There are no hyperkeratosis, ulcerations, scars, verruca or other lesions noted. Ortho: Muscle strength is 5/5 for all pedal groups tested. Ankle joint DF is decreased with the knee extended with no pain or crepitus noted. 1st MPJ ROM is decreased bilateral. Assessment: (B35.1) Onychomycosis (primary encounter diagnosis) (M79.672) Pain in left foot (M79.674) Pain in toe of right foot (L60.0) Ingrowing toenail (E11.9) Controlled type 2 diabetes mellitus without complication, without long-term current use of insulin ([facility]) Plan: Patient was seen and evaluated. Nails 1-5 bilateral were debrided in length and thickness. Discussed ingrowing toenail of left hallux. The entire nail is ingrown with + swelling, + redness, + drainage. I will place him on antibiotic but I fear that given the severity of the ingrown, I do think it is in his best interest to remove the entire nail to eliminate infection. Patient agrees. I informed patient there is risk of bleeding due to him being on plavix but I feel the benefit of removing toenail will help to eliminate infection. Patient consents to total nail avulsion. Reviewed pvr from 2020. He has what appears to be normal perfusion to heal a toenail removal Discussed risks of toenail procedure not limited to infection, pain, swelling, bleeding, painful scarring, recurrence, need for revised procedure. Patient consented to proceed. Patient was properly identified by name and procedure. The left hallux was then injected with 3 cc of 1% lidocaine plain. The toe was then prepped and draped in the usual aseptic technique. A digital tournicot was applied to the toe. The entire nail was then freed and removed. Careful inspection was performed to assure no remaining spicule present. All nonviable tissue was debrided with tissue nippers. Bleeding was controlled with silver nitrate. Wound culture performed. Sterile dressing was then applied consisting of amerigel, guaze, tram and coban. Tournicot was removed and hyperemic response was noted. Patient tolerated well. Patient will f/u in 2 weeks. Patient was instructed on the continued importance of diabetic foot care along with proper diet and keeping their blood sugar under control to prevent complications. Blake Brown DPM AMB ROOMING INTAKE FLOWSHEET DATA Risk Screening Do you have concerns about personal safety or safety in the home?: No Pain Pain Level: 5 Pain Location: Toe Description: Sore Duration Amount of Time: 2 Duration Units: Weeks Frequency: Continuous Intervention/Comfort measure: Reposition, Relaxation Patient presents with: Left Foot - Established Patient, Ingrown Toenail Right Foot - Established Patient Nail Care Patient due for diabetic foot exam and nail care. Reports ingrown toenail to L hallux. documented in this encounter [facility] 05-22-2022 Instructions Blake Brown - 05/22/2022 11:44 AM EDT Diabetes Foot Care Instructions When you have diabetes, proper foot care is very important. Poor foot care may lead to amputation of a foot or leg. As a person with diabetes, you are more vulnerable to foot problems, because diabetes can damage your nerves and reduce blood flow to your feet. Here are some diabetes foot care tips to follow: Wash and Dry Your Feet Daily Use mild soaps Use warm water Pat your skin dry; do not rub. Thoroughly dry your feet. After washing, use lotion on your feet to prevent cracking. Do not put lotion between your toes. Examine Your Feet Each Day Check the tops and bottoms of your feet. Have someone else look at your feet if you cannot see them. Check for dry, cracked skin. Look for blisters, cuts, scratches, or other sores. Check for redness, increased warmth, or tenderness when touching any area of your feet. Check for ingrown toenails, corns, and calluses. If you get a blister or sore from your shoes, do not pop it. Apply a bandage and wear a different pair of shoes. Take Care of Your Toenails Cut toenails after bathing, when they are soft. Cut toenails straight across and smooth with a nail file. Avoid cutting into the corners of toes. Do not cut cuticles. If you have neuropathy (or decreased sensation in your feet) a manager pricing should always cut your toenails. Be Careful When Exercising Walk and exercise in comfortable shoes. Do not exercise when you have open sores on your feet. Protect Your Feet With Shoes and Socks Never go barefoot. Always protect your feet by wearing shoes or hard-soled slippers or footwear. Avoid shoes with high heels and pointed toes. Avoid shoes that expose your toes or heels (such as open-toed shoes or sandals). These types of shoes increase your risk for injury and potential infections. Try on new footwear with the type of socks you usually wear. Do not wear new shoes for more than an hour at a time. Change your socks daily. Look and feel inside your shoes before putting them on to make sure there are no foreign objects or rough areas. Avoid tight socks. Wear natural-fiber socks (cotton, wool, or a cotton-wool blend). Wear special shoes if your health care provider recommends them. Wear shoes/boots that will protect your feet from various weather conditions (cold, moisture, etc.). Make sure your shoes fit properly. If you have neuropathy (nerve damage), you may not notice that your shoes are too tight. Perform the footwear test described below. Footwear Test Use this simple test to see if your shoes fit correctly: Stand on a piece of paper. (Make sure you are standing and not sitting, because your foot changes shape when you stand.) Trace the outline of your foot. Trace the outline of your shoe. Compare the tracings: Is the shoe too narrow? Is your foot crammed into the shoe? The shoe should be at least 1/2 inch longer than your longest toe and as wide as your foot. Proper Shoe Choices The following types of shoes are best for people with diabetes Closed toes and heels Leather uppers without a seam inside At least 1/2 inch extra space at the end of your longest toe Inside of shoe should be soft with no rough areas Outer sole should be made of stiff material Shoes should be at least as wide as your feet Tips for Foot Care in Diabetes Don't wait to treat a minor foot problem if you have diabetes. Follow your health care provider's guidelines and first aid guidelines. Report foot injuries and infections to your health care provider immediately. Check water temperature with your elbow, not your foot. Do not use a heating pad on your feet. Do not cross your legs. Do not self-treat your corns, calluses, or other foot problems. Go to your health care provider or manager pricing to treat these conditions. documented in this encounter [facility] 04-18-2022 Miscellaneous Notes Summary: APPOINTMENT SPOKE WITH DAUGHTER 04/21 APPT CX / DID NOT WANT TO R/S AT THIS TIME. documented in this encounter [facility] 03-14-2022 Miscellaneous Notes Pt notified. Pinky Clancy LPN Please notify patient that his stool were all Hemoccult negative. Yan Vargas MD documented in this encounter [facility] 03-10-2022 Miscellaneous Notes Pt. Notified of results, rx sent to pharmacy vit B 6 once daily, F/U with his PCP. Pt. Voiced understanding. Kathy Blancas LPN Start vitamin B6 100 mg once daily and follow-up with PCP Signed Prescriptions Disp Refills pyridoxine, vitamin B6, (VITAMIN B-6) 100 mg tablet 100 tablet 3 Sig: Take 1 tablet by mouth once daily. Authorizing Provider: YAN VARGAS Order entered - please phone pharmacy and notify patient. Yan Vargas MD documented in this encounter [facility] 03-06-2022 History and physical note Hematology and Medical Oncology PATIENT NAME: Kerry Warner. CLINIC NO: [id number]. ATTENDING PHYSICIAN: Yan Vargas MD. DATE OF SERVICE:03/06/2022. DIAGNOSIS: Anemia of chronic disease Consultation requested by Dr. Bright for an opinion regarding chronic anemia. My final recommendations will be communicated back to the requesting physician by way of shared Medical record or letter to requesting physician via US mail. PERFORMANCE STATUS:80% HPI: 76-year-old gentleman with chronic anemia who presented with mild fatigue. He had a cardiac stent placement last May, and his hemoglobin has dropped to 9.1 gm/dL in August from 12.1 gm/dL a year ago. He is on aspirin and clopidogrel since his stent placement. He has no changes in bowel habit, hematochezia or melena. He started vitamin B12 and folic acid last year but he did not notice any changes in fatigue. He has no palpitation, shortness of breath, dizziness or lightheadedness. No cold intolerance. No frequent headaches or insomnia. He has no fever, chills, night sweats, or bone pain. He has no history of renal disease or hypercalcemia. No family history of anemia or bleeding diathesis. MEDICATIONS: Current Outpatient Medications Medication Sig atorvastatin (LIPITOR) 20 mg tablet Take 1 tablet by mouth daily at bedtime. For cholesterol. amLODIPine (NORVASC) 5 mg tablet Take 1 tablet by mouth once daily. Per [facility] lisinopril (ZESTRIL, PRINIVIL) 10 mg tablet Take 10 mg by mouth twice daily. pantoprazole DR (PROTONIX) 40 mg tablet Take 1 tablet by mouth as needed. TAKE 1 TABLET BY MOUTH ONCE DAILY IN THE MORNING carbidopa-levodopa (SINEMET) 25-100 mg per tablet Take 0.5 tablets by mouth three times daily. albuterol HFA 90 mcg/actuation HFA Inhale 90 mcg as instructed every 6 hours as needed. cyanocobalamin (VITAMIN B-12) 1,000 mcg tab Take 1 tablet by mouth once daily. folic acid 1 mg tablet Take 1 tablet by mouth once daily. clopidogrel (PLAVIX) 75 mg tablet Take 1 tablet by mouth once daily. TAKE 1 TABLET BY MOUTH ONCE DAILY IN THE MORNING aspirin, enteric coated (ASPIRIN, ENTERIC COATED) 81 mg EC tablet Take 1 tablet by mouth once daily. acetaminophen (TYLENOL 8 HOUR) 650 mg CR tablet Take 2 tablets by mouth twice daily as needed for Pain. No current facility-administered medications for this visit. . ALLERGIES: ALLERGIES Allergen Reactions Cats Cough . 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 BPV (benign positional vertigo) 07/01/2015 Chronic tension-type headache, not intractable 06/29/2015 Constipation, chronic 09/01/2009 Coronary artery disease due to lipid rich plaque 05/19/2021 Seeing [facility]: DANISH to Mid RCA and distal RCA 05/12/2021 Diabetes mellitus type 2, controlled, without complications (HCC) 05/25/2016 Diastasis recti 05/26/2011 Essential hypertension, benign 10/23/2008 12/18/2016: Home BP Cuff Validated. Home BP: 155/89 Office BP: 140/88 Ex-smoker 02/02/2021 Smoked for about 50 yrs and quit around age 65. Could smoke up to 2-4 PPD. GERD without esophagitis 10/23/2008 Low folate 08/16/2021 Low serum vitamin B12 08/16/2021 Mixed hyperlipidemia 10/23/2016 Obesity, Class III, BMI 40-49.9 (morbid obesity) (HCC) 02/06/2014 Orthostatic hypotension 05/13/2018 Primary malignant neoplasm of skin of upper extremity 06/12/2017 Skin cancer of arm Tubular adenoma 07/02/2018 . PAST SURGICAL HISTORY: PAST SURGICAL HISTORY Procedure Laterality Date APPENDECTOMY removal of bowel tumor and appendectomy at age 6 years COLONOSCOPY FLX DX W/COLLJ SPEC WHEN PFRMD 07/23/2012 Colonoscopy COLONOSCOPY FLX DX W/COLLJ SPEC WHEN PFRMD 03/19/2013 Colonoscopy Repeat 2 years COLONOSCOPY FLX DX W/COLLJ SPEC WHEN PFRMD 06/21/2016 Colonoscopy (MAC) COLONOSCOPY FLX DX W/COLLJ SPEC WHEN PFRMD 07/02/2018 CHITRA Bojorquez-repeat 3 years DRUG ELUTING STENT 05/12/2021 Mid and distal RCA ESOPHAGOGASTRODUODENOSCOPY TRANSORAL DIAGNOSTIC 07/23/2012 EGD ESOPHAGOGASTRODUODENOSCOPY TRANSORAL DIAGNOSTIC 06/21/2016 EGD (MAC) PAST SURGICAL HISTORY OF 2002 skin cancer removed from arm RPR UMBILICAL HERNIA < 5 YRS REDUCIBLE 2000 Hernia repair, umbilical . FAMILY HISTORY: FAMILY HISTORY Problem Relation Age of Onset other (brain cancer) Mother Alcohol/Drug Father other (Other) Father both parents - old age , no ill siblings.( has step siblings) Hypertension Sister Prostate Cancer Brother . SOCIAL HISTORY: Social History Tobacco Use Smoking status: Current Every Day Smoker Packs/day: 2.00 Years: 50.00 Pack years: 100.00 Types: Cigarettes Last attempt to quit: 12/18/2008 Years since quittin.2 Smokeless tobacco: Never Used Tobacco comment: now smokes about 1/2 pack per day Vaping Use Vaping Use: Former Quit date: 10/01/2010 Substance Use Topics Alcohol use: No Drug use: No . REVIEW OF SYSTEMS: CONSTITUTIONAL: No fevers, chills, nightsweats, unintended weight loss HEENT: Denies frequent or severe heaches, nasal congestion/sinus symptoms, problematic allergy problems. EYES: No diplopia or blurry vision. CARDIOVASCULAR: No chest pain, dyspnea, palpitations, orthopnea, PND, ankle edema. PULM: No dyspnea, unexplained cough. GI: No dysphagia/odynophagia, problematic reflux, constipation, diarrhea, changes in stool habits, hematochezia, melena. : No new urinary complaints, including dysuria, gross hematuria or pyuria. NEURO: No new balance problems, peripheral weakness/paresthesias or numbness of concern. MUSC-SKEL: No new joint pain, swelling, or erythema. PSY: No concerns regarding depression, anxiety or panic. INTEGUMENTARY: No new skin changes (rash, new or changing mole, new growth) PHYSICAL EXAMINATION: 76-year-old gentleman in no acute distress BP 199/79 Pulse 55 Temp 97.1 Ht 5' 7.323 (1.71m) Wt 214 lb (97.1kg) SpO2 100% BMI 33.20 kg/(m^2). HEENT: Head is normocephalic, atraumatic. Sclerae white, conjunctivae pink. PEERL. EOMs are intact. Oropharynx is benign. LYMPHATICS: There is no palpable adenopathy in the neck, supraclavicular region, axillae, or groin. LUNGS: Lungs are clear to percussion and auscultation. HEART: Heart is normal without murmurs, gallops, or rubs. ABDOMEN: Soft and nontender without organomegaly. No masses can be palpated. EXTREMITIES: Are without edema. NEUROLOGIC: Exam is physiologic LABORATORY DATA: Component Latest Ref Rng & Units 11/23/2021 02/17/2022 03/06/2022 WBC 3.70 - 11.00 k/uL 5.99 6.99 7.28 RBC 4.20 - 6.00 m/uL 3.23 (L) 3.25 (L) 3.33 (L) Hemoglobin 13.0 - 17.0 g/dL 9.6 (L) 9.9 (L) 10.6 (L) Hematocrit 39.0 - 51.0 % 31.7 (L) 32.1 (L) 31.6 (L) MCV 80.0 - 100.0 fL 98.1 98.8 94.9 MCH 26.0 - 34.0 pg 29.7 30.5 31.8 MCHC 30.5 - 36.0 g/dL 30.3 (L) 30.8 33.5 RDW-CV 11.5 - 15.0 % 15.5 (H) 15.1 (H) 14.5 Platelet Count 150 - 400 k/uL 222 220 168 MPV 9.0 - 12.7 fL 9.9 9.8 9.9 Neut% % 53.4 58.5 59.0 Abs Neut (ANC) 1.45 - 7.50 k/uL 3.18 4.08 4.30 Lymph% % 26.2 22.3 21.3 Abs Lymph 1.00 - 4.00 k/uL 1.57 1.56 1.55 [place]% % 7.2 6.7 5.8 Abs [place] <0.87 k/uL 0.43 0.47 0.42 Eosin% % 12.5 11.4 12.5 Abs Eosin <0.46 k/uL 0.75 (H) 0.80 (H) 0.91 (H) Baso% % 0.7 1.0 1.1 Abs Baso <0.11 k/uL 0.04 0.07 0.08 Immature Gran % % 0.1 0.3 IMMATURE GRANS (ABS) <0.10 k/uL <0.03 <0.03 NRBC /100 WBC 0.0 0.0 Absolute nRBC <0.01 k/uL <0.01 <0.01 <0.01 DTYPE Auto Auto Nucleated Reds 0 /100 WBC 0.0 Diff Type Auto Diff Component Latest Ref Rng & Units 02/17/2022 Protein, Total 6.3 - 8.0 g/dL 6.7 Albumin 3.9 - 4.9 g/dL 4.0 Calcium 8.5 - 10.2 mg/dL 8.8 Bilirubin, Total 0.2 - 1.3 mg/dL 0.3 Alkaline Phosphatase 38 - 113 U/L 94 AST 14 - 40 U/L 21 ALT 10 - 54 U/L 6 (L) Glucose 74 - 99 mg/dL 86 BUN 9 - 24 mg/dL 19 Creatinine 0.73 - 1.22 mg/dL 0.83 Sodium 136 - 144 mmol/L 140 Potassium 3.7 - 5.1 mmol/L 3.9 Chloride 97 - 105 mmol/L 106 (H) CO2 22 - 30 mmol/L 25 Anion Gap 9 - 18 mmol/L 9 eGFR >=60 mL/min/1.73m 90 Magnesium 1.7 - 2.3 mg/dL 2.3 Component Latest Ref Rng & Units 03/06/2022 Iron 41 - 186 ug/dL 89 TIBC 232 - 386 ug/dL 292 Transferrin Saturation 15 - 57 % 30 WSR 0 - 15 mm/hr 5 Ferritin 30.3 - 565.7 ng/mL 80.7 Component Latest Ref Rng & Units 11/15/2021 3:02 PM Vitamin B12 232 - 1,245 pg/mL 840 Folate >4.7 ng/mL >20.0 ASSESSMENT: 76-year-old gentleman with anemia of chronic disease. He is asymptomatic from moderate anemia. He has no recent history of blood transfusion or GI bleeding. PLAN: -Additional labs: Reticulocyte count, iron study, vitamin B6, erythropoietin level, and sed rate. -Continue folic acid and vitamin B12 supplements. -Check stool for Hemoccult x 3 -Since his anemia seems to be improving and he is asymptomatic, continue monitor CBC and follow-up with PCP. I spent 45 minutes in the visit, with more than 50% of the total [id number] time of the visit in counseling / coordination of care. The patient and family were allowed enough time to ask questions. All questions were answered to their satisfaction. Patient and family verbalized understanding of anemia of chronic disease and agreed to follow-up with PCP. Yan Vargas MD. ELECTRONICALLY SIGNED documented in this encounter [facility] 03-02-2022 Miscellaneous Notes Patient daughter was notified and voiced understanding. Yuly Jacques MA Left message for daughter. Yuly Jacques MA Let patient know Us of the neck arteries shows slight increase in narrowing on the left. The right was stable. The recent change in his Lipitor should help with this. documented in this encounter [facility] 03-02-2022 Miscellaneous Notes Spoke with patient's daughter Chica concerning the patient having consult for Autonomic clinic. Patient's daughter states that since patient started taking Lisinopril 20mg bid, his readings are 120 - 140 systolic and normal biostolic and patient not complaining of dizziness as before. Wanting to wait until next OV in Neurology to discuss the Autonomic clinic consult. Provider aware. Jaimee Sosa LPN documented in this encounter [facility] 02-22-2022 Miscellaneous Notes Detailed message left on [employer] confidential, identified VM. Lori Thakkar Ma Ok to give verbal order as below. [facility]- [facility]- reports PT is on hold right now. Reports patient is having elevated BP problem and wearing a heart monitor for [facility]. Asking for verbal order from pcp to re-evaluate for PT once BP is stable. Please phone Nette with verbal. [phone] documented in this encounter [facility] 02-20-2022 Miscellaneous Notes Anne given PCP instructions. Voiced understanding. Yuly Jacques MA Advise Anne I'm ok with extending MCC 1 time a week for 4 weeks to monitor BP. Anne from [facility] calling asking for verbal order to extend fci visits 1 time weekly for 4 weeks, to monitor his blood pressure. [facility] increased his Lisinopril 20 mg twice daily on 02/18. Today bp at 215 pm 180/90 pulse 56 and when she was leaving at 250 pm 170/80 pulse 59. Please advise documented in this encounter [facility] 02-17-2022 Nurse Note Patient was set up on BP Noman for a BP average. 203/72 A 204/72 204/71 205/74 202/70 200/71 Heartrate 58 documented in this encounter [facility] 02-17-2022 Instructions Jasson Bright MD - 02/17/2022 12:50 PM EDT Please get labs and urine test done on or after 08/04/2022 prior to your next visit. documented in this encounter [facility] 02-17-2022 History of Presen t illness Narrative Chief Complaint Patient presents with: Recheck: 3 months HPI Kerry Warner is a 76 year old male who presents here today for Chronic Medical Conditions.. Patient with hx of possible Parkinson dz, CAD, DM, CHF, HTN, HLP, GERD, chronic headache, carotid stenosis, low Folate, low B12, current smoker, obesity, . Recently seen by neurology for f/u of possible parkinson dz, drooling, shuffling gate. They have continued the sinemet and want him to see brain health. Patient was recently in [facility]ci home and released about three weeks ago. He had a fall on 01/09 and 01/13. On the he was admitted then sent home and then on 01/13 he was admitted again for fall and then transferred to [facility] for rehab. Currently has [facility] [place] for fci and PHYSICAL THERAPY. He did have a OT eval and felt he did not need Tx. Patient last seen [place] [facility] for f/u and was taken off the florinef and the aldactone. Patient says he is feeling good with no complaints. Past medical history, appointments, medications, allergies reviewed. 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 Benign prostatic hyperplasia with urinary obstruction 07/15/2012 Bilateral carotid artery stenosis 02/04/2021 US 01/2021: Rt 20-40%, Lt 60-60% BPV (benign positional vertigo) 07/01/2015 Chronic tension-type headache, not intractable 06/29/2015 Constipation, chronic 09/01/2009 Coronary artery disease due to lipid rich plaque 05/19/2021 Seeing [facility]: DANISH to Mid RCA and distal RCA 05/12/2021 Diabetes mellitus type 2, controlled, without complications ([facility]) 05/25/2016 Diastasis recti 05/26/2011 Essential hypertension, benign 10/23/2008 12/18/2016: Home BP Cuff Validated. Home BP: 155/89 Office BP: 140/88 Ex-smoker 02/02/2021 Smoked for about 50 yrs and quit around age 65. Could smoke up to 2-4 PPD. GERD without esophagitis 10/23/2008 Low folate 08/16/2021 Low serum vitamin B12 08/16/2021 Mixed hyperlipidemia 10/23/2016 Obesity, Class III, BMI 40-49.9 (morbid obesity) ([facility]) 02/06/2014 Primary malignant neoplasm of skin of upper extremity 06/12/2017 Skin cancer of arm Tubular adenoma 07/02/2018 Previous Surgical History PAST SURGICAL HISTORY Procedure Laterality Date APPENDECTOMY removal of bowel tumor and appendectomy at age 6 years COLONOSCOPY FLX DX W/COLLJ SPEC WHEN PFRMD 07/23/2012 Colonoscopy COLONOSCOPY FLX DX W/COLLJ SPEC WHEN PFRMD 03/19/2013 Colonoscopy Repeat 2 years COLONOSCOPY FLX DX W/COLLJ SPEC WHEN PFRMD 06/21/2016 Colonoscopy (MAC) COLONOSCOPY FLX DX W/COLLJ SPEC WHEN PFRMD 07/02/2018 CHITRA Bojorquez-repeat 3 years DRUG ELUTING STENT 05/12/2021 Mid and distal RCA ESOPHAGOGASTRODUODENOSCOPY TRANSORAL DIAGNOSTIC 07/23/2012 EGD ESOPHAGOGASTRODUODENOSCOPY TRANSORAL DIAGNOSTIC 06/21/2016 EGD (MAC) PAST SURGICAL HISTORY OF 2002 skin cancer removed from arm RPR UMBILICAL HERNIA < 5 YRS REDUCIBLE 2000 Hernia repair, umbilical Family History FAMILY HISTORY Problem Relation Age of Onset Alcohol/Drug Father other (Other) Father both parents - old age , no ill siblings.( has step siblings) other (brain cancer) Mother Hypertension Sister Patient Allergies ALLERGIES Allergen Reactions Cats Cough Current Medications Current Outpatient Medications on File Prior to Visit Medication Sig amLODIPine (NORVASC) 5 mg tablet Take 1 tablet by mouth once daily. Per [facility] atorvastatin (LIPITOR) 10 mg tablet Take 1 tablet by mouth daily at bedtime. For cholesterol. carbidopa-levodopa (SINEMET) 25-100 mg per tablet Take 0.5 tablets by mouth three times daily. albuterol HFA 90 mcg/actuation HFA Inhale 90 mcg as instructed every 6 hours as needed. cyanocobalamin (VITAMIN B-12) 1,000 mcg tab Take 1 tablet by mouth once daily. folic acid 1 mg tablet Take 1 tablet by mouth once daily. pantoprazole DR (PROTONIX) 40 mg tablet Take 1 tablet by mouth once daily. TAKE 1 TABLET BY MOUTH ONCE DAILY IN THE MORNING (Patient taking differently: Take 40 mg by mouth as needed. TAKE 1 TABLET BY MOUTH ONCE DAILY IN THE MORNING ) clopidogrel (PLAVIX) 75 mg tablet Take 1 tablet by mouth once daily. TAKE 1 TABLET BY MOUTH ONCE DAILY IN THE MORNING aspirin, enteric coated (ASPIRIN, ENTERIC COATED) 81 mg EC tablet Take 1 tablet by mouth once daily. acetaminophen (TYLENOL 8 HOUR) 650 mg CR tablet Take 2 tablets by mouth twice daily as needed for Pain. lisinopril (ZESTRIL, PRINIVIL) 10 mg tablet Take 10 mg by mouth twice daily. No current facility-administered medications on file prior to visit. Social History Social History Tobacco Use Smoking status: Current Every Day Smoker Packs/day: 2.00 Years: 50.00 Pack years: 100.00 Types: Cigarettes Last attempt to quit: 12/18/2008 Years since quittin.1 Smokeless tobacco: Never Used Tobacco comment: now smokes about 1/2 pack per day Vaping Use Vaping Use: Former Quit date: 10/01/2010 Substance Use Topics Alcohol use: No Drug use: No Review of Symptoms REVIEW OF SYSTEMS GENERAL: No weight loss, malaise or fevers NECK: Negative for lumps, goiter, pain and significant neck swelling RESPIRATORY: Negative for hemoptysis, wheezing, COPD, dyspnea or shortness of breath. Has a cough occasionally with clear mucus CARDIOVASCULAR: Negative for chest pain, increased left leg swelling, hypertension, CHF or palpitations GI: No nausea, vomiting, or diarrhea and No heartburn or reflux symptoms : No history of dysuria, frequency or incontinence PSYCH: Negative for sleep disturbance, mood disorder and recent psychosocial stressors ENDOCRINE: Negative for polyuria, polydipsia and goiter NEURO: No history of headaches, syncope, paralysis, seizures or tremors and no further hallucinations. EXAM: BP 142/74 Pulse 60 Resp 12 Wt 99.8 kg (220 lb) BMI 32.49 kg/m Last 5 Encounter Wt Readings: Date: Wt: 02/17/2022 99.8 kg (220 lb) 02/09/2022 119.7 kg (264 lb) 11/10/2021 100.7 kg (222 lb) 09/08/2021 88 kg (194 lb) 08/17/2021 90.6 kg (199 lb 11.8 oz) General Appearance: Well appearing, alert, in no acute distress, well-hydrated, well nourished.. Eyes: Anicteric sclera. Pupils are equally round and reactive to light. Extraocular movements are intact. . Neck: Supple, no adenopathy; thyroid symmetric, normal size, no bruits. Lungs: Lungs clear to auscultation. No wheezing, rhonchi, rales.. Heart: RRR without murmur, gallop, or rubs. No ectopy. Abdomen: Normal abdominal exam, Abdomen soft, non-tender. Bowel sounds normal. No masses, organomegaly. Extremities: No deformities, skin discoloration. 1+ edema on the left. Musculoskeletal: . Muscular strength intact. Peripheral Pulses: Normal. Neurologic: Gait walks with walker. Sensation to light touch and crainal nerves 2-12 intact.. Health Maintenance List COVID-19 VACCINE(1) Never done HEPATITIS C SCREENING Never done BP CONTROLLED (<130/80) Never done LUNG CANCER SCREENING Never done SHINGRIX VACCINE(1 of 2) Never done DILATED RETINAL EXAM due on 05/21/2018 URINE ALBUMIN:CREATININE RATIO due on 05/10/2021 DIABETIC FOOT EXAM due on 05/24/2021 HBA1C due on 08/05/2021 ADVANCE DIRECTIVE DISCUSSION Never done DEPRESSION SCREENING due on 01/31/2022 LDL CHOLESTEROL due on 02/02/2022 INFLUENZA(Season Ended) due on 06/01/2022 ANNUAL PCP TEAM CHRONIC DISEASE VISIT due on 11/10/2022 DTAP,TDAP,TD(4 - Td or Tdap) due on 01/10/2029 PNEUMOVAX AGE 65 AND OVER WITH 5YR LOOKBACK Completed MENINGOCOCCAL CONJUGATE Aged Out Data reviewed In Office A1c: 5.3% Component Latest Ref Rng & Units 11/15/2021 11/23/2021 WBC 3.70 - 11.00 k/uL 4.72 5.99 RBC 4.20 - 6.00 m/uL 2.93 (L) 3.23 (L) Hemoglobin 13.0 - 17.0 g/dL 8.8 (L) 9.6 (L) Hematocrit 39.0 - 51.0 % 28.8 (L) 31.7 (L) MCV 80.0 - 100.0 fL 98.3 98.1 MCH 26.0 - 34.0 pG 30.0 29.7 MCHC 30.5 - 36.0 g/dL 30.6 30.3 (L) RDW-CV 11.5 - 15.0 % 15.8 (H) 15.5 (H) Platelet Count 150 - 400 k/uL 188 222 MPV 9.0 - 12.7 fL 9.9 9.9 Neut% % 56.0 53.4 Abs Neut (ANC) 1.45 - 7.50 k/uL 2.63 3.18 Lymph% % 24.2 26.2 Abs Lymph 1.00 - 4.00 k/uL 1.14 1.57 [place]% % 7.6 7.2 Abs [place] <0.87 k/uL 0.36 0.43 Eosin% % 11.4 12.5 Abs Eosin <0.46 k/uL 0.54 (H) 0.75 (H) Baso% % 0.8 0.7 Abs Baso <0.11 k/uL 0.04 0.04 Nucleated Reds 0 /100 WBC 0.0 0.0 Absolute nRBC <0.01 k/uL <0.01 <0.01 Diff Type Auto Diff Auto Diff Glucose 74 - 99 mg/dL 86 BUN 9 - 24 mg/dL 19 Creatinine 0.73 - 1.22 mg/dL 1.09 Sodium 136 - 144 mmol/L 140 Potassium 3.7 - 5.1 mmol/L 4.3 Chloride 97 - 105 mmol/L 106 (H) CO2 22 - 30 mmol/L 23 Anion Gap 9 - 18 mmol/L 11 Calcium 8.5 - 10.2 mg/dL 8.7 eGFR- >60 eGFR-All Other Races . >60 Iron 41 - 186 ug/dL 68 TIBC 232 - 386 ug/dL 264 Transferrin Saturation 15 - 57 % 26 Folate >4.7 ng/mL >20.0 Vitamin B12 232 - 1,245 pg/mL 840 TSH 0.270 - 4.200 uU/mL 1.430 A/P ASSESSMENT/PLAN: 1. Controlled type 2 diabetes mellitus without complication, without long-term current use of insulin (HCC) - ICD9: 250.00, ICD10: E11.9 (primary diagnosis) Controlled. - Encouraged regular aerobic exercise and weight loss - BP goal of <130/80 - LDL goal of <100 - controlled via diet. check - HEMOGLOBIN A1C (POC) - COMP METABOLIC PANEL - CBC + DIFF 2. Essential hypertension, benign - ICD9: 401.1, ICD10: I10 - suboptimal control - Continue current medication(s) - Recommended regular aerobic exercise. - Recommend home blood pressure monitoring, to bring results in on next visit - Cardio following. Patient he issues with very erratic BP and was taken off of some meds due to this. Will not adjust meds at this time. - Goal of BP <130/80 - COMP METABOLIC PANEL 3. Mixed hyperlipidemia - ICD9: 272.2, ICD10: E78.2 - to be determined upon return of lab results - Encouraged following a low fat, low cholesterol diet. - Discussed the benefits of regular aerobic exercise and weight loss. - Encouraged following a low carbohydrate, healthy oil intake diet. - Continue current therapy. check - COMP METABOLIC PANEL - LIPID PANEL, NONFASTING 4. Bilateral carotid artery stenosis - ICD9: 433.10, 433.30, ICD10: I65.23 - Check US carotids 5. Chronic diastolic CHF (congestive heart failure) (HCC) - ICD9: 428.32, 428.0, ICD10: I50.32 - Stable cont management per cardio. - COMP METABOLIC PANEL 6. Coronary artery disease due to lipid rich plaque - ICD9: 414.00, 414.3, ICD10: I25.10, I25.83 - As per #5 - LIPID PANEL, NONFASTING 7. GERD without esophagitis - ICD9: 530.81, ICD10: K21.9 - Continue treatment with Protonix 40 mg every day prn check - MAGNESIUM BLD 8. Chronic tension-type headache, not intractable - ICD9: 339.12, ICD10: G44.229 - Stable no changes. 9. Anxiety about health - ICD9: 300.09, ICD10: F41.8 - Stable not needing Tx. 10. Anemia of chronic disease - ICD9: 285.29, ICD10: D63.8 Check - CBC + DIFF 11. Low serum vitamin B12 - ICD9: 266.2, ICD10: E53.8 - cont replacement 12. Low folate - ICD9: 266.2, ICD10: E53.8 - Cont replacement 13. Obesity, Class III, BMI 40-49.9 (morbid obesity) (HCC) - ICD9: 278.01, ICD10: E66.01 Stable - Behavioral intervention 14. Current smoker - ICD9: 305.1, ICD10: F17.200 - Cessation encouraged. - Counseling was given focusing on the harmful effects of this addiction especially given the patient's medical condition(s) which will be worsened because of the chemicals in tobacco. - patient is working on quitting. 15. Parkinson disease (HCC) - ICD9: 332.0, ICD10: G20 - Suspected. Patient to see Brain health. Cont management per Neuro. 16. Medication management - ICD9: V58.69, ICD10: Z79.899 Check - MAGNESIUM BLD F/u 6 months extensive check CMP, Lipid, Ua, A1c, urine micro I spent a total of 40 minutes on the date of the service which included preparing to see the patient, [id number] patient care, completing clinical documentation, performing a medically appropriate examination, counseling and educating the patient/family/caregiver and ordering medications, tests, or procedures. albumin, B12 Mg, folate and PSA prior. Jasson Bright MD documented in this encounter [facility] 02-15-2022 Miscellaneous Notes Nette from [facility] Home health returned call and went over notes below from Dr Bright with understanding. Left message to call office. 02/14/2022 8:28 AM Yoni Quintana Ma Ok to give verbal order for [facility] visit x one this week to re-certify. CALIN Grubbs @ [facility] calling to request order for visit x one this week to recertify patient to extend home health nursing visits to monitor BP and edema. If agree, please give verbal okay. # [phone]. Brenda Willis RN documented in this encounter [facility] 02-10-2022 Miscellaneous Notes Last office visit: 11/10/21 F/u scheduled: 02/17/22 Lori Thakkar Ma Patient has been identified by name and date of : Yes Pending Prescriptions Disp Refills ATORVASTATIN 10 MG TABLET 30 tablet 5 Sig: Take 1 tablet by mouth daily at bedtime. For cholesterol. ERASMO: No RX INSTRUCTIONS: Patient aware RX will be sent to pharmacy. No need to notify patient. Muriel Danielseteresita documented in this encounter [facility] 02-09-2022 History of Presen t illness Narrative Images from the original note were not included. [facility] [place] Follow-up Visit Follow-up note February 09, 2022 HPI: Mr. Warner presents today for a follow-up visit. Per his previous visit on 09/08/21: R41.82 Altered mental status, unspecified altered mental status type (primary encounter diagnosis) R26.9 Abnormality of gait R42 Lightheadedness I95.1 Orthostatic hypotension R44.1 Visual hallucinations Comment: Patient previously presenting for above mentioned concerns with timing of onset correlating with cardiac/pulmonary arrest in 05/21. Also with concern for additional sx such as drooling, changes in ambulation, and lightheadedness as early as 01/19. Note that patient with recent hospitalization in August for COPD exacerbation and is currently at a SNF for therapy services. Patient and daughter noting significant improvement at today's OV. Hallucinations have become less frequent. Has also since started potassium chloride with improvement in BP, lightheadedness, and balance. Able to ambulate patient in office today and patient can walk the length of the mendez without assistive device, though noting that patient is shuffling but with normal arm swing bilaterally. Slow finger/hand taps bilaterally and slow toe taps to L foot. Rigidity noted to BUE. MRI completed since previous visit with possible tiny subacute cerebellar infarct and mod volume loss. Pt currently on Plavix, ASA, Lipitor. Pt did not have EEG due to hospitalization and new order is needed. Previous ddx including LBD, or Parkinson's Plus disorder, stroke, dementia with other unrelated gait disturbance, orthostatic hypotension secondary to cardiac disease or autonomic dysfunction, [facility]. At this time, given exam findings, will initiate trial of Sinemet 1/2 tablet 25-100mg TID with meals. Will have patient follow up in office in 4 weeks to reevaluate symptoms. In interim will have patient schedule and complete EEG. Will consider consult to center for brain health if no further improvements. Had a fall and was hospitalized. He fell in the bathroom and it was unsure how long he was down. His sister in law came over in the morning and he was very stiff and rigid. He was rambling and mumbling. Did not lose control of bowel or bladder. No tongue biting. No convulsions, just very stiff. On arrival to the hospital he was severely dehydrated. Discharge note reviewed on patient's phone: Pt arrived due to fall and hallucinations. Workup unremarkable with exception of orthostatic hypotension. However, after fluid bolus systolic BP was in 180's on morning of DC but dropped to 115 on standing. He was started on fludrocortisone 0.1mg TID. Also prescribed FAITH hose. DC'd amlodipine and spironolactone. Was discharged to [facility] in [facility]. Has been working on slower movements. Has been trying to wear compression stockings. He states they cut off his circulation and make things worse. CT of brain noting chornic involutional changes without acute hemorrhage. Per recent medication update he is taking fludrocortisone 0/1mg daily and will hold if BP>160 systolic. Updated 02/02/22. Also on ASA and Plavix. States he has both high and low blood pressure. Following with Dr. Nguyen with next appointment on April 24. However, has been emailing daily BP readings to CH[employer] MARKETING MANAGER in the office. States blood pressure has since evened out. Has been in 160's systolic. Will occasionally be 130 or 140. Takes florinef in the morning. States he feels good and does not feel dizzy or lightheaded. Has an appointment February 17 with PCP. Denies hallucinations or changes in mental status except with falls. There has been some improvement after starting Sinemet. Has also been trying to drink more fluids. Denies shuffling. Has been using a walker. States he does not have changes in fine motor coordination. Has been wearing tennis shoes and no longer wearing slippers. No tremors. Not acting out dreams or yelling out at night per patient. Has been doing physical therapy at the residential. 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 Home BP: 155/89 Office BP: 140/88 Ex-smoker 02/02/2021 Smoked for about 50 yrs and quit around age 65. Could smoke up to 2-4 PPD. GERD without esophagitis 10/23/2008 Low folate 08/16/2021 Low serum vitamin B12 08/16/2021 Mixed hyperlipidemia 10/23/2016 Obesity, Class III, BMI 40-49.9 (morbid obesity) ([facility]) 02/06/2014 Primary malignant neoplasm of skin of upper extremity 06/12/2017 Skin cancer of arm Tubular adenoma 07/02/2018 PAST SURGICAL HISTORY Procedure Laterality Date APPENDECTOMY removal of bowel tumor and appendectomy at age 6 years COLONOSCOPY FLX DX W/COLLJ SPEC WHEN PFRMD 07/23/2012 Colonoscopy COLONOSCOPY FLX DX W/COLLJ SPEC WHEN PFRMD 03/19/2013 Colonoscopy Repeat 2 years COLONOSCOPY FLX DX W/COLLJ SPEC WHEN PFRMD 06/21/2016 Colonoscopy (MAC) COLONOSCOPY FLX DX W/COLLJ SPEC WHEN [facility]FRMD [facility] DRUG ELUTING STENT 05/12/2021 Mid and distal RCA ESOPHAGOGASTRODUODENOSCOPY TRANSORAL DIAGNOSTIC 07/23/2012 EGD ESOPHAGOGASTRODUODENOSCOPY TRANSORAL DIAGNOSTIC 06/21/2016 EGD (MAC) PAST SURGICAL HISTORY OF 2002 skin cancer removed from arm RPR UMBILICAL HERNIA < 5 YRS REDUCIBLE 2001 Hernia repair, umbilical Current Outpatient Medications on File Prior to Visit Medication Sig carbidopa-levodopa (SINEMET) 25-100 mg per tablet Take 0.5 tablets by mouth three times daily. spironolactone (ALDACTONE) 25 mg tablet Take 25 mg by mouth once daily. albuterol HFA 90 mcg/actuation HFA Inhale 90 mcg as instructed every 6 hours as needed. cyanocobalamin (VITAMIN B-12) 1,000 mcg tab Take 1 tablet by mouth once daily. folic acid 1 mg tablet Take 1 tablet by mouth once daily. potassium chloride ER (K-DUR, KLOR-CON) 20 mEq tablet Take 2 tablets by mouth once daily. pantoprazole DR (PROTONIX) 40 mg tablet Take 1 tablet by mouth once daily. TAKE 1 TABLET BY MOUTH ONCE DAILY IN THE MORNING (Patient taking differently: Take 40 mg by mouth as needed. TAKE 1 TABLET BY MOUTH ONCE DAILY IN THE MORNING ) clopidogrel (PLAVIX) 75 mg tablet Take 1 tablet by mouth once daily. TAKE 1 TABLET BY MOUTH ONCE DAILY IN THE MORNING amLODIPine (NORVASC) 5 mg tablet Take 1 tablet by mouth once daily. Per [facility] atorvastatin (LIPITOR) 10 mg tablet Take 1 tablet by mouth daily at bedtime. For cholesterol. aspirin, enteric coated (ASPIRIN, ENTERIC COATED) 81 mg EC tablet Take 1 tablet by mouth once daily. acetaminophen (TYLENOL 8 HOUR) 650 mg CR tablet Take 2 tablets by mouth twice daily as needed for Pain. ammonium lactate (LAC-HYDRIN) 12 % cream Apply 1 application to affected area as needed. No current facility-administered medications on file prior to visit. Social History Tobacco Use Smoking status: Current Every Day Smoker Packs/day: 2.00 Years: 50.00 Pack years: 100.00 Types: Cigarettes Last attempt to quit: 12/18/2008 Years since quittin.1 Smokeless tobacco: Never Used Tobacco comment: now smokes about 1/2 pack per day Vaping Use Vaping Use: Former Quit date: 10/01/2010 Substance Use Topics Alcohol use: No Drug use: No ALLERGIES Allergen Reactions Cats Cough Review of Systems: Cardiopulmonary: denies chest pain, palpitations, or skipped heart beats Respiratory: denies shortness of breath GI/: denies recent nausea, vomiting, diarrhea, constipation, incontinence Musculoskeletal: denies weakness, muscle atrophy, joint ache/pain Back/spine: denies low back, mid back, or cervical pains Neuro: denies tremors, loss of feeling, dizziness, seizure, blackout, paresthesia, facial paresthesia, facial weakness, difficulty in speech, slurring of words, dysarthria, dysphagia, memory loss, headache, vision changes, loss of hearing Physical Exam: 02/09/22 1526 BP: 160/68 Pulse: (!) 59 Resp: 18 Temp: 36.2 C (97.1 F) SpO2: 99% Weight: 119.7 kg (264 lb) Patient is alert and in no distress. Dress is appropriate. Mood is appropriate Breathing appears regular and unstressed Swelling noted to BLE and LUE Neurologic examination: Cognitively intact. No deficits. No formal MMSE performed. CN: Pupils equal and reactive to light, extraocular movements intact with no nystagmus, face is symmetric with no facial droop, hearing intact bilaterally, symmetric evaluation of the soft palate, tongue is midline with no deviation, shoulder shrug is symmetric. Motor exam shows 5/5 strength symmetric through the upper and lower extremities in all groups tested. Sensory intact to light touch in all extremities. Vibratory sensation is intact and symmetric all extremities. Deep tendon reflexes are symmetric at the biceps, brachioradialis, triceps, patella, and achilles bilaterally. Coordination: No dysmetria on finger to nose. No tremors noted. No drift seen. Shuffling on exam but able to ambulate length of mendez. VIKKI of pronation and supination, finger and hand tapping slow bilaterally. Toe tapping slow on R. There is no asterixis of the hands. Rigidity to BUE L>R, cog wheeling, no bradykinesia. Shuffling gait. Difficult to assess arm swing as patient uses walker on ambulation. No tremors. No extrapyramidal findings. Good arm swing. Labs/studies: CT Cervical Spine 01/02/22: FINDINGS: Partial opacification of the left mastoid air cells. Normal craniovertebral junction. There are degenerative changes of the anterior atlantoaxial articulation. Normal odontoid process. Normal cervical lordosis. Normal vertebral bodies and posterior osseous elements. C2-3: Normal endplates. Normal disc height and morphology. Normal central canal and intervertebral neuroforamina. C3-4: Normal endplates. Normal disc height and morphology. Normal central canal and intervertebral neuroforamina. C4-5: Normal endplates. Normal disc height and morphology. Normal central canal and intervertebral neuroforamina. C5-6: Normal endplates. Normal disc height and morphology. Normal central canal and intervertebral neuroforamina. C6-7: Normal endplates. Normal disc height and morphology. Normal central canal and intervertebral neuroforamina. C7-T1: Normal endplates. Normal disc height and morphology. Normal central canal and intervertebral neuroforamina. Normal visualized soft tissue structures. IMPRESSION: Normal unenhanced CT examination of the cervical spine. CT Brain 01/02/22: Normal soft tissue structures. Normal calvarium. There is moderate cerebral atrophy with widening of the extra-axial spaces and ventricular dilatation. There are areas of decreased attenuation within the white matter tracts of the supratentorial brain, consistent with microvascular disease changes. Normal basal ganglia and thalami. Normal brainstem. Normal cerebellum. There is no intracranial hemorrhage. There are no findings of an acute ischemic infarction. Atherosclerotic calcification of the cavernous portions of the internal carotid arteries and vertebral arteries bilaterally. A fluid level is seen in the left maxillary sinus as well as the sphenoid sinus. Mucosal thickening of the ethmoid sinuses. Small air-fluid level in the frontal sinuses. Partial opacification of the left mastoid air cells. IMPRESSION: Chronic involutional changes of the brain. Air-fluid levels in multiple sinuses as described. Previously Reviewed: MRI Brain WO 07/05/21: No evidence of acute infarct or intracranial mass effect. Possible tiny subacute infarct inferolateral left cerebellum. There is moderate supratentorial parenchymal volume loss with relative sparing of the occipital lobes. Nonspecific white matter changes, most commonly due to chronic microvascular ischemia in a patient of this age. US Carotid Arteries 02/04/21: IMPRESSION Technically difficult exam due to vessel depth and patient respiration. RIGHT SIDE Common carotid artery: Plaque visualized without evidence of hemodynamically significant stenosis. Internal carotid artery: 20-39% stenosis. Vertebral artery: Not visualized. Innominate artery: Unable to visualize. LEFT SIDE Common carotid artery: Plaque visualized without evidence of hemodynamically significant stenosis. Internal carotid artery: 40-59% stenosis. Vertebral artery: Patent and antegrade flow noted. Assessment/Plan: E78.2 Mixed hyperlipidemia (primary encounter diagnosis) R41.82 Altered mental status, unspecified altered mental status type R26.9 Abnormality of gait R42 Lightheadedness I95.1 Orthostatic hypotension R44.1 Visual hallucinations Comment: Patient previously seen for above mentioned concerns with timing of onset correlating with cardiac/pulmonary arrest in 05/21. Also with concern for additional sx such as drooling, changes in ambulation, and lightheadedness as early as 01/19. MRI of brain noting moderate volume loss and possible subacute infarct; remains on Plavix, ASA, Lipitor. At time of last appointment hallucinations had improved as well as BP, lightheadedness, and balance after adjustment in medications. At time of previous appointment pt was able to walk length of mendez without assistive device though noting multiple symptoms suggestive of PD. Given exam findings as well as improvement in other reported symptoms, pt began trial of Sinement 1/2 25-100mg tablet TID with meals with goal of follow up in one month to review symptoms and consider increase in medication. However, since time of previous appointment patient had fall and was hospitalized. Pt's daughter reports he was stiff and mumbling. No loss of bowel or bladder, tongue biting, or convulsions. EEG previously ordered prior to fall and completed after hospitalization. No seizures noted on report. During hospitalization BP was labile and pt was positive for orthostatic hypotension. Consult previously placed to autonomic clinic, however, pt has been following with cardiology with improvement in blood pressure. Denies current dizziness or lightheadedness. In regards to hallucinations or mental status change, pt denies further episodes except during time of fall. Feels as though he still has noted improvement in symptoms since initiation of Sinemet. On exam today, rigidity noted to BUE. Unstable gait and uses assistive device during ambulation. He has been completing PT while admitted to CT. As symptoms continue at this time, and given concern at previous appointments for LBD or Parkinson's Plus disorder, will place consult for center for brain health for further evaluation and recommendations. Will wait to further adjust medications until after appointment with brain health. Office Visit on 02/09/22 CONSULT TO NEUROLOGY Magnolia Perdomo APRN.SUSHMA I spent a total of 45 minutes on the date of the service which included preparing to see the patient, [id number] patient care, completing clinical documentation, obtaining and/or reviewing separately obtained history, performing a medically appropriate examination, counseling and educating the patient/family/caregiver and ordering medications, tests, or procedures. documented in this encounter [facility] 02-07-2022 History of Presen t illness Narrative Patient's home health 485 form / care plan for certification period 01/26/2022 to 03/26/2022 reviewed and signed. Relevant medical records were reviewed. No changes were indicated documented in this encounter [facility] 01-31-2022 Miscellaneous Notes Noted. Sherine with [facility] Occupation Therapy calling to report to PCP that patient's blood pressure was elevated again today. It was 176/80 at beginning of OT visit today and pulse of 59. After exercises, BP was 192/74 with a pulse of 56. She reports patient denied any symptoms and is adamant about starting back on his water pill. Reminded Sherine that message was left for [facility] nurse to discuss BP issues with patient's entry level manager at [facility] since he also has underlying CAD and CHF that they see him for. Sherine also reporting update to OT plan of care. Patient was evaluated today and one visit was needed only. Patient to continue with PT. No call back needed to Sherine. Thank you. documented in this encounter [facility] 01-31-2022 Miscellaneous Notes Left detailed vm on identified vm, with provider's message below. Please advise [facility] nurse to discuss BP issues with patient's entry level manager at [facility] since he also has underlying CAD and CHF that they see him for. Scarlet with [facility] called and stated she just got to pt's house and took his BP 1:48 pm and it is elevated 190/82 in both arms manually. Pt reports to here that this has been going on for him where his blood pressure fluctuates. Other vital signs HR 60, Temp 97.1, Pulse ox 99% on room air. He denies any symptoms such as dizziness, light headed. Pt was told to talk his amlodipine and the nurse will take again before she leaves his home. Please advise Scarlet. Ely Do LPN documented in this encounter [facility] 01-24-2022 Miscellaneous Notes Left detailed message on confidential vm Rebeka Jacinto Ma Let santiago know I will follow for C orders. The 90 day face to face needs competed by the provider caring for him at [facility]. Sultana with [facility] calls to report that pt will be discharged from [facility] on 01/25/22. Pt has orders for PT and OT. Sultana is asking if pcp will follow pt while in . Call Sultana with provider's verbal order that pcp will follow. Martha Virgen LPN documented in this encounter [facility] 01-20-2022 Miscellaneous Notes EEG results reviewed. Report indicates generalized slowing, but no epileptiform or electrographic seizure activity. Romeo Jarvis MD This staff verified EEG results faxed to [facility] yesterday . Patient's daughter, Jj calling for EEG results done @ [facility] on 01/13. She says [facility] is also requesting results. See previous note. Brenda Willis RN [facility] is calling asking for a copy of EEG completed at [facility] to be faxed to them [phone]. Office number [phone] Carolin ext is [phone] for any further questions. Spoke with patients daughter, aware of consult, requesting orders faxed to [facility]. Also requesting OV to follow up testing results. Will need to be placed on wait list, no openings in [place] with Jose Luis Perdomo APRN, CNP for several weeks. Jaimee Sosa LPN ----- Message from Magnolia Perdomo APRN.[employer] sent at 01/12/2022 12:48 PM EDT ----- Spoke with neurologist at [facility] and concern regarding blood pressure fluctuations. Discussed consult to autonomic clinic and consult placed. documented in this encounter [facility] 01-12-2022 History of Presen t illness Narrative Spoke with neurology treating patient at [facility]. Concern regarding fluctuation in blood pressure and medications. Previous consideration for referral to autonomic clinic. After discussion with neurology will place consult at this time for further review of medications. documented in this encounter [facility] 01-11-2022 Miscellaneous Notes Called the patient's daughter and offered an appointment for 01/12 with the nurse practitioner. The patient is currently scheduled at the [facility] for EEG on February 01. The daughter is going to call and try to have a sooner appointment for the EEG. They will call [phone] to schedule an appointment with the provider after the EEG test. Dr. Marii Waters from [facility] calling to request Dr. Jarvis to call her cell as soon as possible at [phone] regarding patient update. Thank you. Jacque Epps RN documented in this encounter [facility] 01-04-2022 Miscellaneous Notes Sultana notified that provider ok to follow orders and that patient will have to set up follow up appointment with Dr. Bright in 1- 2 weeks. Sultana states that she will have nurse talk to family to set up appointment. Lori Quinteros RN Dr. Bright out of office today. Ok for verbal order for PT/OT and ST. Will need hospital follow up with Dr. Bright in 1-2 weeks. Sultana LAYTON from [facility] calls and states that patient is being discharged from [facility] Today 01/04/2022 with the diagnosis of Rhabdomyolysis, encephalopathy, and sinus infection. Sultana asking if provider willing to follow patient with orders for PT, OT, and ST. Sultana states that they plan to see patient tomorrow 01/05/2022 and is asking if verbal order can be given today? If agreeable please give Sultana a call back . Thank you, Lori Quinteros RN documented in this encounter [facility] 12-23-2021 Miscellaneous Notes Please call the patient's MICHAEL Reza at [phone] to schedule the patient for a follow-up appointment with Dr. Jarvis. The follow-up is for mental status and EEG results done at [facility]. Called the patient and spoke with MICHAEL Reza. The wants to have his EEG done at the [facility]. for Registration. Faxed the order and requested them to call the patient to schedule and to fax results to office. documented in this encounter [facility] 08-26-2021 Note HNO ID: [id number] Author: Lillian Stanley RN Service: Care Management Author Type: Registered Nurse Type: Care Mgt Progress Note Filed: 08/26/2021 12:51 PM Note Text: CARE MANAGEMENT PROGRESS NOTE SERVICE DATE: 08/26/2021 SERVICE TIME: 1248 LOS: 9 days Admission Date: 08/17/2021 DISCHARGE ARRANGEMENT (list agency and phone number) Discharge Arrangement: Intermediate Facility Was an expedited discharge program used?: Yes Type: Other: See Comment (THP waiver) Provider Name: Jasson Bright Phone: . CAREGIVER ASSESSMENT: HANDOFF COMMUNICATION: Handoff to: Primary Care Physician Primary Care Physician Name/Phone: Jasson Bright TRANSPORTATION ARRANGEMENTS: Transportation Arrangements: Ambulance/[facility] Agency and Phone #:: [facility] [phone] Date of Trip: 08/26/21 Time of Trip: 1730 Type of Service: BLS Non-emergency Is Patient Medicaid Pending?: No Discussion of financial coverage occurred with: [employer] Observer Location: [facility] Care Management Responsibility: None ADDITIONAL CONTACT RESOURCES: [id number] [phone] Discharge Information Row Name ED to Hosp-Admission (Current) from 08/17/2021 in [facility] Intermediate Facility Agency [facility] Pt will be discharged to SNF at 1730 today, notified pt's daughter Jj and pt of oyster picker time. CALIN Carcamo aware envelope on chart to call report and oyster picker time. SIGNATURE: Lillian Stanley RN PATIENT NAME: Kerry Warner DATE: August 26, 2021 TIME: 12:48 PM PAGER/CONTACT #: [phone] [facility] 08-26-2021 Note HNO ID: [id number] Author: Lillian Stanley RN Service: Care Management Author Type: Registered Nurse Type: Care Mgt Progress Note Filed: 08/26/2021 11:42 AM Note Text: CARE MANAGEMENT PROGRESS NOTE SERVICE DATE: 08/26/2021 SERVICE TIME: 1142 LOS: 9 days IMM Follow Up Copy Given: Yes Copy given to:: Patient Survey Coordinator Survey Coordinator Name/Relationship: Jj Cooney-daughter Method: By Phone . SIGNATURE: Lillian Stanley RN PATIENT NAME: Kerry Warner DATE: August 26, 2021 TIME: 11:42 AM PAGER/CONTACT #: [phone] [facility] 08-25-2021 Note HNO ID: [id number] Author: Carin Calixto APRN.CNP Service: Hospital Medicine Author Type: Nurse Practitioner Type: Progress Notes Filed: 08/25/2021 2:07 PM Note Text: DEPARTMENT OF HOSPITAL MEDICINE PROGRESS NOTE SERVICE DATE: 08/25/2021 SERVICE TIME: 12:33 PM Hospital Medicine/Primary Attending: Clifton Sarmiento MD NIGHT AND WEEKEND COVERAGE: [employer] C[employer]: Days: [phone], please page attending physician. Nights: [phone], please page [place] [facility] Night coverage pager [phone]. Subjective CC: Shortness of breath INTERVAL HPI: Patient seen and evaluated. Pleasant and cooperative during my exam but per nursing staff, he has bouts of agitation- cussing at staff and trying to hit them. Orders placed for PRN seroquel. He remains hemodynamically stable on room air. Medically ready for discharge. Awaiting pre cert for DC to SNF Current Facility-Administered Medications Medication Dose Route Frequency - atorvastatin 10 mg tab(s) (LIPITOR) 10 mg ORAL AT BEDTIME - folic acid 1 mg tab(s) 1 mg ORAL DAILY - aspirin, enteric coated 81 mg tab(s) 81 mg ORAL DAILY - clopidogrel 75 mg tab(s) (PLAVIX) 75 mg ORAL DAILY - pantoprazole DR 40 mg tab(s) (PROTONIX) 40 mg ORAL DAILY (6 AM) - cyclobenzaprine 10 mg tab(s) (FLEXERIL) 10 mg ORAL TID PRN - NaCl 0.9% iv flush bag 20 mL INTRAVENOUS PRN - sodium chloride 0.9 % (flush) 3-5 mL (BD POSIFLUSH) 3-5 mL INTRAVENOUS q 12 H - ipratropium-albuterol 3 mL nebulizer solution (DUONEB) 3 mL INHALATION QID - aluminum-magnesium hydroxide-simethicone 200-200-20 mg/5 mL 30 mL (MAALOX,MYLANTA,MAG-AL PLUS) 30 mL ORAL q 6 H PRN - docusate sodium 100 mg cap(s) (COLACE) 100 mg ORAL BID PRN - magnesium hydroxide 400 mg/5 mL 30 mL (MOM) 30 mL ORAL DAILY PRN - acetaminophen 650 mg tab(s) (TYLENOL) 650 mg ORAL q 6 H PRN - potassium chloride ER 40 mEq tab(s) (K-DUR, KLOR-CON) 40 mEq ORAL TID - cyanocobalamin 1,000 mcg injection 1,000 mcg SUBCUTANEOUS DAILY - fludrocortisone 0.2 mg tab(s) (FLORINEF) 0.2 mg ORAL BID - melatonin 6 mg tab(s) 6 mg ORAL DAILY (8 PM) - QUEtiapine 25 mg tab(s) (SEROquel) 25 mg ORAL HS PRN - furosemide 40 mg tab(s) (LASIX) 40 mg ORAL DAILY - amLODIPine 10 mg tab(s) (NORVASC) 10 mg ORAL DAILY Objective PHYSICAL EXAM: BP 192/78 Pulse 70 Temp (Src) 97.3 (Oral) Resp 18 Wt 206 lb 2.1 oz (93.5kg) SpO2 97% O2 Therapy: Room Air Physical Exam Performed GENERAL: Alert and conversant. SKIN: Skin color, texture, turgor normal. No rashes or lesions. HEAD/SINUSES: No significant findings. AT/NC EYES: Anicteric sclera, EOMI OROPHARYNX: MMM, no oral thrush or lesions LUNGS: Expiratory wheezing. He is speaking in full sentences CARDIAC: Normal S1 and S2; no rubs, murmurs, or gallops EXTREMITIES: Trace edema to BLE, good peripheral pulses Lines, Drains, and Airways Line Peripheral 08/24/21 0649 Left Hand 24 Gauge 1 day Drain External Collection Device 08/17/21 2220 7 days Reviewed lines and needs to be continued: REASONS: Telemetry DATA: Diagnostic tests reviewed for today's visit: Most recent labs Most recent imaging Most recent EKG Recent Labs 08/25/21 0630 08/24/21 0348 08/23/21 0526 WBC 7.28 6.98 5.51 HB 10.1* 9.6* 9.1* PLT 200 203 188 NA 142 141 143 K 3.4* 3.9 3.4* CO2 24 26 27 BUN 20 20 18 CREAT 0.79 0.84 0.76 AST 15 13* 15 ALT 15 13 14 TBILI 0.5 0.4 0.5 ALKPHOS 72 65 69 Assessment/Plan Shortness of breath - Presented for evaluation of shortness of breath x 1 day prior to admission - NT Pro BNP up at 1900 - CXR with bilateral pulmonary infiltrates - Started empiric ceftriaxone and azithromycin - Procal negative, de escalated to oral cefdinir and azithromycin to complete total 5 day course of abx therapy - Started IV lasix with negative 5 L out and improved lower extremity edema - Transitioned to po lasix 40mg daily - Prednisone 40mg daily x 5 days for mild COPD exacerbation end date 08/24 - Remains stable on room air Hypokalemia -resolved - Suspect 2/2 diuresis - Scheduled supplement - Follow BMP 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 Jarvis) - Very low B 12 levels may also be contributing - Will start SQ B12 injections Delirium - Suspect hospital acquired delirium, waxing waning mentation - Delirium protocol in place - Maintain patient safety - Fall precautions - PRN Se (more content not included)... [facility] 08-24-2021 Note HNO ID: [id number] Author: Karan Almaguer PA-C Service: Hospital Medicine Author Type: Physician Ice Cream Chef Type: Progress Notes Filed: 08/24/2021 5:41 PM Note Text: DEPARTMENT OF HOSPITAL MEDICINE PROGRESS NOTE SERVICE DATE: 08/24/2021 SERVICE TIME: 11:57 AM Hospital Medicine/Primary Attending: Clifton Sarmiento MD NIGHT AND WEEKEND COVERAGE: [place] COVER[employer]: Days: [phone], please page attending physician. Nights: [phone], please page [place] [facility] Night coverage pager [phone]. Subjective CC: Shortness of breath INTERVAL HPI: Feeling well today without complaints, patient denies chest pain or shortness of breath, afebrile. Plan for SNF, awaiting pre-cert. Current Facility-Administered Medications Medication Dose Route Frequency - atorvastatin 10 mg tab(s) (LIPITOR) 10 mg ORAL AT BEDTIME - amLODIPine 5 mg tab(s) (NORVASC) 5 mg ORAL DAILY - folic acid 1 mg tab(s) 1 mg ORAL DAILY - aspirin, enteric coated 81 mg tab(s) 81 mg ORAL DAILY - clopidogrel 75 mg tab(s) (PLAVIX) 75 mg ORAL DAILY - pantoprazole DR 40 mg tab(s) (PROTONIX) 40 mg ORAL DAILY (6 AM) - cyclobenzaprine 10 mg tab(s) (FLEXERIL) 10 mg ORAL TID PRN - NaCl 0.9% iv flush bag 20 mL INTRAVENOUS PRN - sodium chloride 0.9 % (flush) 3-5 mL (BD POSIFLUSH) 3-5 mL INTRAVENOUS q 12 H - ipratropium-albuterol 3 mL nebulizer solution (DUONEB) 3 mL INHALATION QID - aluminum-magnesium hydroxide-simethicone 200-200-20 mg/5 mL 30 mL (MAALOX,MYLANTA,MAG-AL PLUS) 30 mL ORAL q 6 H PRN - docusate sodium 100 mg cap(s) (COLACE) 100 mg ORAL BID PRN - magnesium hydroxide 400 mg/5 mL 30 mL (MOM) 30 mL ORAL DAILY PRN - acetaminophen 650 mg tab(s) (TYLENOL) 650 mg ORAL q 6 H PRN - potassium chloride ER 40 mEq tab(s) (K-DUR, KLOR-CON) 40 mEq ORAL TID - cyanocobalamin 1,000 mcg injection 1,000 mcg SUBCUTANEOUS DAILY - fludrocortisone 0.2 mg tab(s) (FLORINEF) 0.2 mg ORAL BID - melatonin 6 mg tab(s) 6 mg ORAL DAILY (8 PM) - QUEtiapine 25 mg tab(s) (SEROquel) 25 mg ORAL HS PRN - furosemide 40 mg tab(s) (LASIX) 40 mg ORAL DAILY - predniSONE 40 mg tab(s) (DELTASONE) 40 mg ORAL DAILY Objective PHYSICAL EXAM: BP 184/79 Pulse 64 Temp (Src) 97.9 (Oral) Resp 18 Wt 221 lb 12.5 oz (100.6kg) SpO2 97% O2 Therapy: Room Air Physical Exam Performed GENERAL: Alert, oriented to place, year, Appropriately conversant SKIN: Skin color, texture, turgor normal. No rashes or lesions. HEAD/SINUSES: No significant findings. AT/NC EYES: Anicteric sclera, EOMI OROPHARYNX: MMM, no oral thrush or lesions LUNGS: Expiratory wheezing. He is speaking in full sentences CARDIAC: Normal S1 and S2; no rubs, murmurs, or gallops EXTREMITIES: Trace edema to BLE, good peripheral pulses Lines, Drains, and Airways Line Peripheral 08/24/21 0649 Left Hand 24 Gauge <1 day Drain External Collection Device 08/17/21 2220 6 days Reviewed lines and needs to be continued: REASONS: Telemetry DATA: Diagnostic tests reviewed for today's visit: Most recent labs Most recent imaging Most recent EKG Recent Labs 08/24/21 0348 08/23/21 0526 08/22/21 0456 WBC 6.98 5.51 7.40 HB 9.6* 9.1* 9.3* PLT 203 188 212 NA 141 143 144 K 3.9 3.4* 3.4* CO2 26 27 24 BUN 20 18 20 CREAT 0.84 0.76 0.80 AST 13* 15 -- ALT 13 14 -- TBILI 0.4 0.5 -- ALKPHOS 65 69 -- Assessment/Plan Shortness of breath - Presented for evaluation of shortness of breath x 1 day prior to admission - NT Pro BNP up at 1900 - CXR with bilateral pulmonary infiltrates - Started empiric ceftriaxone and azithromycin - Procal negative, de escalated to oral cefdinir and azithromycin to complete total 5 day course of abx therapy - Started IV lasix with negative 5 L out and improved lower extremity edema - Transition to po lasix 40mg daily - Prednisone 40mg daily x 5 days for mild COPD exacerbation end date 08/24 - Remains stable on room air, 100% Hypokalemia -resolved - Suspect 2/2 diuresis - Scheduled and Supplement - Follow BMP B 12 deficiency Folate deficiency Anemia - H/H low but stable in the 8-9 range - Very low B12 levels and folate deficiency, recently diagnosed at outpatient, had not started supplementation prior to admission - SQ B12 injections while here - Folic acid - No overt signs of bleeding - Monitor CBC daily Hallucinations PD work up underway - Ongoing hallucinations x1 year with associated gait shuffling, drooling, and fine motor difficulties - Worsening mentation/hallucinations since the passing of his about 3 weeks ago - Currently undergoing PD work up with neurology as outpatient (Dr. Jarvis) - Very low B 12 levels may also be contributing - Will start SQ B12 injections Delirium - fully oriented on assessment - Suspect hospital acquired delirium, waxing waning mentation - Delirium protocol in place - Maintain patient safety - Fall precautions Orthostatic hypotension - On [facility] - [place] (more content not included)... [facility] 08-23-2021 Note HNO ID: [id number] Author: Lillian Stanley RN Service: Care Management Author Type: Registered Nurse Type: Care Mgt Progress Note Filed: 08/23/2021 4:24 PM Note Text: CARE MANAGEMENT PROGRESS NOTE SERVICE DATE: 08/23/2021 SERVICE TIME: 1622 LOS: 6 days progress note Received telephone call from Chica, pt's daughter, she confirmed that she does want her father to go to [facility]. Requested precert be started now. SIGNATURE: Lillian Stanley RN PATIENT NAME: Kerry Warner DATE: August 23, 2021 TIME: 4:21 PM PAGER/CONTACT #: [phone] [facility] 08-23-2021 Note HNO ID: [id number] Author: Sheba Stevens, EDUCATIONAL INTERPRETER.EXTRUSION UTILITY WORKER Service: Hospital Medicine Author Type: Nurse Practitioner Type: Progress Notes Filed: 08/23/2021 1:04 PM Note Text: DEPARTMENT OF HOSPITAL MEDICINE PROGRESS NOTE SERVICE DATE: 08/23/2021 SERVICE TIME: 11:57 AM Hospital Medicine/Primary Attending: Clifton Sarmiento MD NIGHT AND WEEKEND COVERAGE: [place] COVERAGE: Days: [phone], please page attending physician. Nights: [phone], please page [place] [facility] Night coverage pager [phone]. Subjective CC: Shortness of breath INTERVAL HPI: Feeling well today without complaints, patient denies chest pain or shortness of breath, afebrile. Cough not present on assessment. BLE generalized edema noted. Discussed discharge plan with Jj, agreeable to SNF at discharge. Case management aware. Medically cleared for discharge once facility and precert established. Current Facility-Administered Medications Medication Dose Route Frequency - atorvastatin 10 mg tab(s) (LIPITOR) 10 mg ORAL AT BEDTIME - amLODIPine 5 mg tab(s) (NORVASC) 5 mg ORAL DAILY - folic acid 1 mg tab(s) 1 mg ORAL DAILY - aspirin, enteric coated 81 mg tab(s) 81 mg ORAL DAILY - clopidogrel 75 mg tab(s) (PLAVIX) 75 mg ORAL DAILY - pantoprazole DR 40 mg tab(s) (PROTONIX) 40 mg ORAL DAILY (6 AM) - cyclobenzaprine 10 mg tab(s) (FLEXERIL) 10 mg ORAL TID PRN - NaCl 0.9% iv flush bag 20 mL INTRAVENOUS PRN - sodium chloride 0.9 % (flush) 3-5 mL (BD POSIFLUSH) 3-5 mL INTRAVENOUS q 12 H - ipratropium-albuterol 3 mL nebulizer solution (DUONEB) 3 mL INHALATION QID - aluminum-magnesium hydroxide-simethicone 200-200-20 mg/5 mL 30 mL (MAALOX,MYLANTA,MAG-AL PLUS) 30 mL ORAL q 6 H PRN - docusate sodium 100 mg cap(s) (COLACE) 100 mg ORAL BID PRN - magnesium hydroxide 400 mg/5 mL 30 mL (MOM) 30 mL ORAL DAILY PRN - acetaminophen 650 mg tab(s) (TYLENOL) 650 mg ORAL q 6 H PRN - potassium chloride ER 40 mEq tab(s) (K-DUR, KLOR-CON) 40 mEq ORAL TID - cyanocobalamin 1,000 mcg injection 1,000 mcg SUBCUTANEOUS DAILY - fludrocortisone 0.2 mg tab(s) (FLORINEF) 0.2 mg ORAL BID - melatonin 6 mg tab(s) 6 mg ORAL DAILY (8 PM) - QUEtiapine 25 mg tab(s) (SEROquel) 25 mg ORAL HS PRN - furosemide 40 mg tab(s) (LASIX) 40 mg ORAL DAILY - predniSONE 40 mg tab(s) (DELTASONE) 40 mg ORAL DAILY Objective PHYSICAL EXAM: BP 178/70 Pulse 57 Temp (Src) 97.3 (Oral) Resp 18 Wt 221 lb 9 oz (100.5kg) SpO2 100% O2 Therapy: Room Air Physical Exam Performed GENERAL: Alert, oriented to place, year, Appropriately conversant SKIN: Skin color, texture, turgor normal. No rashes or lesions. HEAD/SINUSES: No significant findings. AT/NC EYES: Anicteric sclera, EOMI OROPHARYNX: MMM, no oral thrush or lesions LUNGS: Expiratory wheezing. He is speaking in full sentences CARDIAC: Normal S1 and S2; no rubs, murmurs, or gallops EXTREMITIES: Trace edema to BLE, good peripheral pulses Lines, Drains, and Airways Line Peripheral 08/17/21 1130 Short Right Antecubital 20 Gauge 6 days Drain External Collection Device 08/17/21 2220 5 days Reviewed lines and needs to be continued: REASONS: Telemetry DATA: Diagnostic tests reviewed for today's visit: Most recent labs Most recent imaging Most recent EKG Recent Labs 08/23/21 0526 08/22/21 0456 08/21/21 0443 WBC 5.51 7.40 5.48 HB 9.1* 9.3* 9.4* PLT 188 212 185 NA 143 144 142 K 3.4* 3.4* 3.9 CO2 27 24 27 BUN 18 20 19 CREAT 0.76 0.80 0.79 AST 15 -- -- ALT 14 -- -- TBILI 0.5 -- -- ALKPHOS 69 -- -- Assessment/Plan Shortness of breath - Presented for evaluation of shortness of breath x 1 day prior to admission - NT Pro BNP up at 1900 - CXR with bilateral pulmonary infiltrates - Started empiric ceftriaxone and azithromycin - Procal negative, de escalated to oral cefdinir and azithromycin to complete total 5 day course of abx therapy - Started IV lasix with negative 5 L out and improved lower extremity edema - Transition to po lasix 40mg daily - Prednisone 40mg daily x 5 days for mild COPD exacerbation end date 08/24 - Remains stable on room air, 100% Hypokalemia - Suspect 2/2 diuresis - Scheduled and Supplement - Follow BMP B 12 deficiency Folate deficiency Anemia - H/H low but stable in the 8-9 range - Very low B12 levels and folate deficiency, recently diagnosed at outpatient, had not started supplementation prior to admission - SQ B12 injections while here - Folic acid - No overt signs of bleeding - Monitor CBC daily Hallucinations PD work up underway - Ongoing hallucinations x1 year with associated gait shuffling, drooling, and fine motor difficulties - Worsening mentation/hallucinations since the passing of his about 3 weeks ago - Currently undergoing PD work up with neurology as outpatient (Dr. Jarvis) - Very low B 12 levels may also be contributing - Will start SQ B12 injections Delirium - fully oriented on (more content not included)... [facility] 08-22-2021 Note HNO ID: [id number] Author: Sheba Stevens APRN.EXTRUSION UTILITY WORKER Service: Hospital Medicine Author Type: Nurse Practitioner Type: Progress Notes Filed: 08/22/2021 3:30 PM Note Text: DEPARTMENT OF HOSPITAL MEDICINE PROGRESS NOTE SERVICE DATE: 08/22/2021 SERVICE TIME: 11:57 AM Hospital Medicine/Primary Attending: Clifton Sarmiento MD NIGHT AND WEEKEND COVERAGE: [place] COVERAGE: : [phone], please page attending physician. Nights: [phone], please page [place] [facility] Night coverage pager [phone]. Subjective CC: Shortness of breath INTERVAL HPI: Feeling well today without complaints. No chest pain or shortness of breath. Cough not present on assessment. BLE generalized edema noted. Discussed discharge plan with daughter, Libia PT/OT recommending SNF, daughter would like the the patient to return home with [facility]. PT/OT re evaluated and again recommending SNF. Daughter updated, will be in tonight to discuss options with patient. Current Facility-Administered Medications Medication Dose Route Frequency - atorvastatin 10 mg tab(s) (LIPITOR) 10 mg ORAL AT BEDTIME - amLODIPine 5 mg tab(s) (NORVASC) 5 mg ORAL DAILY - folic acid 1 mg tab(s) 1 mg ORAL DAILY - aspirin, enteric coated 81 mg tab(s) 81 mg ORAL DAILY - clopidogrel 75 mg tab(s) (PLAVIX) 75 mg ORAL DAILY - pantoprazole DR 40 mg tab(s) (PROTONIX) 40 mg ORAL DAILY (6 AM) - cyclobenzaprine 10 mg tab(s) (FLEXERIL) 10 mg ORAL TID PRN - NaCl 0.9% iv flush bag 20 mL INTRAVENOUS PRN - sodium chloride 0.9 % (flush) 3-5 mL (BD POSIFLUSH) 3-5 mL INTRAVENOUS q 12 H - ipratropium-albuterol 3 mL nebulizer solution (DUONEB) 3 mL INHALATION QID - aluminum-magnesium hydroxide-simethicone 200-200-20 mg/5 mL 30 mL (MAALOX,MYLANTA,MAG-AL PLUS) 30 mL ORAL q 6 H PRN - docusate sodium 100 mg cap(s) (COLACE) 100 mg ORAL BID PRN - magnesium hydroxide 400 mg/5 mL 30 mL (MOM) 30 mL ORAL DAILY PRN - acetaminophen 650 mg tab(s) (TYLENOL) 650 mg ORAL q 6 H PRN - potassium chloride ER 40 mEq tab(s) (K-DUR, KLOR-CON) 40 mEq ORAL TID - cyanocobalamin 1,000 mcg injection 1,000 mcg SUBCUTANEOUS DAILY - fludrocortisone 0.2 mg tab(s) (FLORINEF) 0.2 mg ORAL BID - melatonin 6 mg tab(s) 6 mg ORAL DAILY (8 PM) - QUEtiapine 25 mg tab(s) (SEROquel) 25 mg ORAL HS PRN - cefdinir 300 mg (OMNICEF) 300 mg ORAL BID - furosemide 40 mg tab(s) (LASIX) 40 mg ORAL DAILY - predniSONE 40 mg tab(s) (DELTASONE) 40 mg ORAL DAILY Objective PHYSICAL EXAM: BP 186/66 Pulse 69 Temp (Src) 98.2 (Oral) Resp 20 Wt 221 lb 5.5 oz (100.4kg) SpO2 95% O2 Therapy: Room Air Physical Exam Performed GENERAL: Alert, oriented to place, year, date. Appropriately conversant SKIN: Skin color, texture, turgor normal. No rashes or lesions. HEAD/SINUSES: No significant findings. AT/NC EYES: Anicteric sclera, EOMI OROPHARYNX: MMM, no oral thrush or lesions LUNGS: Expiratory wheezing. He is speaking in full sentences CARDIAC: Normal S1 and S2; no rubs, murmurs, or gallops EXTREMITIES: Trace edema to BLE, good peripheral pulses Lines, Drains, and Airways Line Peripheral 08/17/21 1130 Short Right Antecubital 20 Gauge 5 days Drain External Collection Device 08/17/21 2220 4 days Reviewed lines and needs to be continued: REASONS: Telemetry DATA: Diagnostic tests reviewed for today's visit: Most recent labs Most recent imaging Most recent EKG Recent Labs 08/22/21 0456 08/21/21 0443 08/20/21 0451 08/19/21 1727 WBC 7.40 5.48 4.57 5.49 HB 9.3* 9.4* 8.0* 8.2* PLT 212 185 177 181 NA 144 142 147* 147* K 3.4* 3.9 3.4* 2.9* CO2 24 27 28 27 BUN 20 19 21 20 CREAT 0.80 0.79 0.93 0.91 AST -- -- -- 22 ALT -- -- -- 14 TBILI -- -- -- 0.3 ALKPHOS -- -- -- 72 Assessment/Plan Shortness of breath - Presented for evaluation of shortness of breath x 1 day prior to admission - NT Pro BNP up at 1900 - CXR with bilateral pulmonary infiltrates - Started empiric ceftriaxone and azithromycin - Procal negative, de escalated to oral cefdinir and azithromycin to complete total 5 day course of abx therapy - Started IV lasix with negative 5 L out and improved lower extremity edema - Transition to po lasix 40mg daily - Prednisone 40mg daily x 5 days for mild COPD exacerbation end date 08/24 - Remains stable on room air, 95% Hypokalemia - Suspect 2/2 diuresis - Scheduled and Supplement - Follow BMP B 12 deficiency Folate deficiency Anemia - H/H low but stable in the 8-9 range - Very low B12 levels and folate deficiency, recently diagnosed at outpatient, had not started supplementation prior to admission - SQ B12 injections while here - Folic acid - No overt signs of bleeding - Monitor CBC daily Hallucinations PD work up underway - Ongoing hallucinations x1 year with associated gait shuffling, drooling, and fine motor difficulties - Worsening mentation/hallucinations since the passing of his about 3 weeks ago - [place] (more content not included)... [facility] 08-22-2021 Note HNO ID: [id number] Author: Lillian Stanley RN Service: Care Management Author Type: Registered Nurse Type: Care Mgt Progress Note Filed: 08/22/2021 1:22 PM Note Text: CARE MANAGEMENT PROGRESS NOTE SERVICE DATE: 08/22/2021 SERVICE TIME: 1300 LOS: 5 days anticipated discharge needs:SNF vs. home with HHC,transportation, precert Received telephone call from pt's daughter Chica Alcaraz and she is still unsure if pt is able to go home with HHC vs. SNF. Chica states he has a large support system at home and would like him to come home if possible. Advised to visit pt to see mentation status for herself. Requested updated therapy notes for possible placement and precert. SIGNATURE: Lillian Stanley RN PATIENT NAME: Kerry Warner DATE: August 22, 2021 TIME: 1:17 PM PAGER/CONTACT #: [phone] [facility] documented as of this encounter (statuses as of 02/19/2022) [facility]-22-2021 History of Past illness Narrative* Problem Noted Date Resolved Date Malnutrition of moderate degree 08/22/2021 02/17/2022 COPD exacerbation 08/17/2021 08/26/2021 Upper back strain 02/19/2018 02/02/2021 Tubulovillous adenoma polyp of colon 06/21/2016 06/21/2016 Chronic superficial gastritis without bleeding 0 06/21/2016 06/21/2016 Hypokalemia 02/12/2015 05/06/2015 Tobacco use disorder 10/23/2008 12/19/2011 documented as of this encounter (statuses as of 02/20/2022) [facility] History of Past illness Narrative* Problem Noted Date Resolved Date Malnutrition of moderate degree 08/22/2021 02/17/2022 COPD exacerbation 08/17/2021 08/26/2021 Upper back strain 02/19/2018 02/02/2021 Tubulovillous adenoma polyp of colon 06/21/2016 06/21/2016 Chronic superficial gastritis without bleeding 0 06/21/2016 06/21/2016 Hypokalemia 02/12/2015 05/06/2015 Tobacco use disorder 10/23/2008 12/19/2011 documented as of this encounter (statuses as of 02/22/2022) [facility] History of Past illness Narrative* Problem Noted Date Resolved Date Malnutrition of moderate degree 08/22/2021 02/17/2022 COPD exacerbation 08/17/2021 08/26/2021 Upper back strain 02/19/2018 02/02/2021 Tubulovillous adenoma polyp of colon 06/21/2016 06/21/2016 Chronic superficial gastritis without bleeding 0 06/21/2016 06/21/2016 Hypokalemia 02/12/2015 05/06/2015 Tobacco use disorder 10/23/2008 12/19/2011 documented as of this encounter (statuses as of 03/02/2022) [facility] History of Past illness Narrative* Problem Noted Date Resolved Date Malnutrition of moderate degree 08/22/2021 02/17/2022 COPD exacerbation 08/17/2021 08/26/2021 Upper back strain 02/19/2018 02/02/2021 Tubulovillous adenoma polyp of colon 06/21/2016 06/21/2016 Chronic superficial gastritis without bleeding 0 06/21/2016 06/21/2016 Hypokalemia 02/12/2015 05/06/2015 Tobacco use disorder 10/23/2008 12/19/2011 documented as of this encounter (statuses as of 03/02/2022) [facility] History of Past illness Narrative* Problem Noted Date Resolved Date Malnutrition of moderate degree 08/22/2021 02/17/2022 COPD exacerbation 08/17/2021 08/26/2021 Upper back strain 02/19/2018 02/02/2021 Tubulovillous adenoma polyp of colon 06/21/2016 06/21/2016 Chronic superficial gastritis without bleeding 0 06/21/2016 06/21/2016 Hypokalemia 02/12/2015 05/06/2015 Tobacco use disorder 10/23/2008 12/19/2011 documented as of this encounter (statuses as of 03/07/2022) [facility] History of Past illness Narrative* Problem Noted Date Resolved Date Malnutrition of moderate degree 08/22/2021 02/17/2022 COPD exacerbation 08/17/2021 08/26/2021 Upper back strain 02/19/2018 02/02/2021 Tubulovillous adenoma polyp of colon 06/21/2016 06/21/2016 Chronic superficial gastritis without bleeding 0 06/21/2016 06/21/2016 Hypokalemia 02/12/2015 05/06/2015 Tobacco use disorder 10/23/2008 12/19/2011 documented as of this encounter (statuses as of 03/10/2022) [facility] History of Past illness Narrative* Problem Noted Date Resolved Date Malnutrition of moderate degree 08/22/2021 02/17/2022 COPD exacerbation 08/17/2021 08/26/2021 Upper back strain 02/19/2018 02/02/2021 Tubulovillous adenoma polyp of colon 06/21/2016 06/21/2016 Chronic superficial gastritis without bleeding 0 06/21/2016 06/21/2016 Hypokalemia 02/12/2015 05/06/2015 Tobacco use disorder 10/23/2008 12/19/2011 documented as of this encounter (statuses as of 03/14/2022) [facility] History of Past illness Narrative* Problem Noted Date Resolved Date Malnutrition of moderate degree 08/22/2021 02/17/2022 COPD exacerbation 08/17/2021 08/26/2021 Upper back strain 02/19/2018 02/02/2021 Tubulovillous adenoma polyp of colon 06/21/2016 06/21/2016 Chronic superficial gastritis without bleeding 0 06/21/2016 06/21/2016 Hypokalemia 02/12/2015 05/06/2015 Tobacco use disorder 10/23/2008 12/19/2011 documented as of this encounter (statuses as of 04/18/2022) [facility] History of Past illness Narrative* Problem Noted Date Resolved Date Malnutrition of moderate degree 08/22/2021 02/17/2022 COPD exacerbation 08/17/2021 08/26/2021 Upper back strain 02/19/2018 02/02/2021 Tubulovillous adenoma polyp of colon 06/21/2016 06/21/2016 Chronic superficial gastritis without bleeding 0 06/21/2016 06/21/2016 Hypokalemia 02/12/2015 05/06/2015 Tobacco use disorder 10/23/2008 12/19/2011 documented as of this encounter (statuses as of 05/23/2022) [facility] History of Past illness Narrative* Problem Noted Date Resolved Date Malnutrition of moderate degree 08/22/2021 02/17/2022 COPD exacerbation 08/17/2021 08/26/2021 Upper back strain 02/19/2018 02/02/2021 Tubulovillous adenoma polyp of colon 06/21/2016 06/21/2016 Chronic superficial gastritis without bleeding 0 06/21/2016 06/21/2016 Hypokalemia 02/12/2015 05/06/2015 Tobacco use disorder 10/23/2008 12/19/2011 documented as of this encounter (statuses as of 06/07/2022) [facility] History of Past illness Narrative* Problem Noted Date Resolved Date Malnutrition of moderate degree 08/22/2021 02/17/2022 COPD exacerbation 08/17/2021 08/26/2021 Upper back strain 02/19/2018 02/02/2021 Tubulovillous adenoma polyp of colon 06/21/2016 06/21/2016 Chronic superficial gastritis without bleeding 0 06/21/2016 06/21/2016 Hypokalemia 02/12/2015 05/06/2015 Tobacco use disorder 10/23/2008 12/19/2011 documented as of this encounter (statuses as of 07/04/2022) [facility] History of Past illness Narrative* Problem Noted Date Resolved Date Malnutrition of moderate degree 08/22/2021 02/17/2022 COPD exacerbation 08/17/2021 08/26/2021 Upper back strain 02/19/2018 02/02/2021 Tubulovillous adenoma polyp of colon 06/21/2016 06/21/2016 Chronic superficial gastritis without bleeding 0 06/21/2016 06/21/2016 Hypokalemia 02/12/2015 05/06/2015 Tobacco use disorder 10/23/2008 12/19/2011 documented as of this encounter (statuses as of 07/13/2022) [facility] History of Past illness Narrative* Problem Noted Date Resolved Date Malnutrition of moderate degree 08/22/2021 02/17/2022 COPD exacerbation 08/17/2021 08/26/2021 Upper back strain 02/19/2018 02/02/2021 Tubulovillous adenoma polyp of colon 06/21/2016 06/21/2016 Chronic superficial gastritis without bleeding 0 06/21/2016 06/21/2016 Hypokalemia 02/12/2015 05/06/2015 Tobacco use disorder 10/23/2008 12/19/2011 documented as of this encounter (statuses as of 08/14/2022) [place] [id number] History of Past illness Narrative* Problem Noted Date Resolved Date Malnutrition of moderate degree 08/22/2021 02/17/2022 COPD exacerbation 08/17/2021 08/26/2021 Upper back strain 02/19/2018 02/02/2021 Tubulovillous adenoma polyp of colon 06/21/2016 06/21/2016 Chronic superficial gastritis without bleeding 0 06/21/2016 06/21/2016 Hypokalemia 02/12/2015 05/06/2015 Tobacco use disorder 10/23/2008 12/19/2011 documented as of this encounter (statuses as of 09/04/2022) [facility] History of Past illness Narrative* Problem Noted Date Resolved Date Malnutrition of moderate degree 08/22/2021 02/17/2022 COPD exacerbation 08/17/2021 08/26/2021 Upper back strain 02/19/2018 02/02/2021 Tubulovillous adenoma polyp of colon 06/21/2016 06/21/2016 Chronic superficial gastritis without bleeding 0 06/21/2016 06/21/2016 Hypokalemia 02/12/2015 05/06/2015 Tobacco use disorder 10/23/2008 12/19/2011 documented as of this encounter (statuses as of 09/06/2022) [facility] History of Past illness Narrative* Problem Noted Date Resolved Date Malnutrition of moderate degree 08/22/2021 02/17/2022 COPD exacerbation 08/17/2021 08/26/2021 Upper back strain 02/19/2018 02/02/2021 Tubulovillous adenoma polyp of colon 06/21/2016 06/21/2016 Chronic superficial gastritis without bleeding 0 06/21/2016 06/21/2016 Hypokalemia 02/12/2015 05/06/2015 Tobacco use disorder 10/23/2008 12/19/2011 documented as of this encounter (statuses as of 10/04/2022) [facility] History of Past illness Narrative* Problem Noted Date Resolved Date Malnutrition of moderate degree 08/22/2021 02/17/2022 COPD exacerbation 08/17/2021 08/26/2021 Upper back strain 02/19/2018 02/02/2021 Tubulovillous adenoma polyp of colon 06/21/2016 06/21/2016 Chronic superficial gastritis without bleeding 0 06/21/2016 06/21/2016 Hypokalemia 02/12/2015 05/06/2015 Tobacco use disorder 10/23/2008 12/19/2011 documented as of this encounter (statuses as of 01/08/2023) [facility] History of Past illness Narrative* Problem Noted Date Resolved Date Malnutrition of moderate degree 08/22/2021 02/17/2022 COPD exacerbation 08/17/2021 08/26/2021 Upper back strain 02/19/2018 02/02/2021 Tubulovillous adenoma polyp of colon 06/21/2016 06/21/2016 Chronic superficial gastritis without bleeding 0 06/21/2016 06/21/2016 Hypokalemia 02/12/2015 05/06/2015 Tobacco use disorder 10/23/2008 12/19/2011 documented as of this encounter (statuses as of 02/02/2023) [facility] History of Past illness Narrative* Problem Noted Date Resolved Date Malnutrition of moderate degree 08/22/2021 02/17/2022 COPD exacerbation 08/17/2021 08/26/2021 Upper back strain 02/19/2018 02/02/2021 Tubulovillous adenoma polyp of colon 06/21/2016 06/21/2016 Chronic superficial gastritis without bleeding 0 06/21/2016 06/21/2016 Hypokalemia 02/12/2015 05/06/2015 Tobacco use disorder 10/23/2008 12/19/2011 documented as of this encounter (statuses as of 02/05/2023) [facility] History of Past illness Narrative* Problem Noted Date Resolved Date Malnutrition of moderate degree 08/22/2021 02/17/2022 COPD exacerbation 08/17/2021 08/26/2021 Upper back strain 02/19/2018 02/02/2021 Tubulovillous adenoma polyp of colon 06/21/2016 06/21/2016 Chronic superficial gastritis without bleeding 0 06/21/2016 06/21/2016 Hypokalemia 02/12/2015 05/06/2015 Tobacco use disorder 10/23/2008 12/19/2011 documented as of this encounter (statuses as of 02/28/2023) [address]-2021 History of Past illness Narrative* Problem Noted Date Resolved Date Malnutrition of moderate degree 08/22/2021 02/17/2022 COPD exacerbation 08/17/2021 08/26/2021 Upper back strain 02/19/2018 02/02/2021 Tubulovillous adenoma polyp of colon 06/21/2016 06/21/2016 Chronic superficial gastritis without bleeding 0 06/21/2016 06/21/2016 Hypokalemia 02/12/2015 05/06/2015 Tobacco use disorder 10/23/2008 12/19/2011 documented as of this encounter (statuses as of 03/01/2023) [facility] History of Past illness Narrative* Problem Noted Date Resolved Date Malnutrition of moderate degree 08/22/2021 02/17/2022 COPD exacerbation 08/17/2021 08/26/2021 Upper back strain 02/19/2018 02/02/2021 Tubulovillous adenoma polyp of colon 06/21/2016 06/21/2016 Chronic superficial gastritis without bleeding 0 06/21/2016 06/21/2016 Hypokalemia 02/12/2015 05/06/2015 Tobacco use disorder 10/23/2008 12/19/2011 documented as of this encounter (statuses as of 03/05/2023) [facility] History of Past illness Narrative* Problem Noted Date Diagnosed Date Resolved Date Malnutrition of moderate degree 08/22/2021 02/17/2022 COPD exacerbation 08/17/2021 08/26/2021 Upper back strain 02/19/2018 02/02/2021 Tubulovillous adenoma polyp of colon 06/21/2016 06/21/2016 Chronic superficial gastriti s without bleeding 06/21/2016 06/21/2016 Hypokalemia 02/12/2015 05/06/2015 Tobacco use disorder 10/23/2008 012 documented as of this encounter (statuses as of 04/18/2023) [facility] History of Past illness Narrative* Problem Noted Date Diagnosed Date Resolved Date Malnutrition of moderate degree 08/22/2021 02/17/2022 COPD exacerbation 08/17/2021 08/26/2021 Upper back strain 02/19/2018 02/02/2021 Tubulovillous adenoma polyp of colon 06/21/2016 06/21/2016 Chronic superficial gastriti s without bleeding 06/21/2016 06/21/2016 Hypokalemia 02/12/2015 05/06/2015 Tobacco use disorder 10/23/2008 012 documented as of this encounter (statuses as of 05/17/2023) [facility] [place]11-22-2021 History of Past illness Narrative* Problem Noted Date Diagnosed Date Resolved Date Malnutrition of moderate degree 08/22/2021 02/17/2022 COPD exacerbation 08/17/2021 08/26/2021 Upper back strain 02/19/2018 02/02/2021 Tubulovillous adenoma polyp of colon 06/21/2016 06/21/2016 Chronic superficial gastriti s without bleeding 06/21/2016 06/21/2016 Hypokalemia 02/12/2015 05/06/2015 Tobacco use disorder 10/23/2008 012 documented as of this encounter (statuses as of 05/18/2023) [facility] [place] History of Past illness Narrative* Problem Noted Date Diagnosed Date Resolved Date Malnutrition of moderate degree 08/22/2021 02/17/2022 COPD exacerbation 08/17/2021 08/26/2021 Upper back strain 02/19/2018 02/02/2021 Tubulovillous adenoma polyp of colon 06/21/2016 06/21/2016 Chronic superficial gastriti s without bleeding 06/21/2016 06/21/2016 Hypokalemia 02/12/2015 05/06/2015 Tobacco use disorder 10/23/2008 012 documented as of this encounter (statuses as of 05/18/2023) [facility] [place] History of Past illness Narrative* Problem Noted Date Diagnosed Date Resolved Date Malnutrition of moderate degree 08/22/2021 02/17/2022 COPD exacerbation 08/17/2021 08/26/2021 Upper back strain 02/19/2018 02/02/2021 Tubulovillous adenoma polyp of colon 06/21/2016 06/21/2016 Chronic superficial gastriti s without bleeding 06/21/2016 06/21/2016 Hypokalemia 02/12/2015 05/06/2015 Tobacco use disorder 10/23/2008 012 documented as of this encounter (statuses as of 05/28/2023) [facility] [place] History of Past illness Narrative* Problem Noted Date Diagnosed Date Resolved Date Malnutrition of moderate degree 08/22/2021 02/17/2022 COPD exacerbation 08/17/2021 08/26/2021 Upper back strain 02/19/2018 02/02/2021 Tubulovillous adenoma polyp of colon 06/21/2016 06/21/2016 Chronic superficial gastriti s without bleeding 06/21/2016 06/21/2016 Hypokalemia 02/12/2015 05/06/2015 Tobacco use disorder 10/23/2008 012 documented as of this encounter (statuses as of 08/18/2023) [facility] [place]-2021 NoteHNO ID: [id number] Author: Carin Calixto APRN.CNP Service: Hospital Medicine Author Type: Nurse Practitioner Type: Progress Notes Filed: 08/21/2021 12:01 PM Note Text: DEPARTMENT OF HOSPITAL MEDICINE PROGRESS NOTE SERVICE DATE: 08/21/2021 SERVICE TIME: 11:57 AM Hospital Medicine/Primary Attending: Clifton Sarmiento MD NIGHT AND WEEKEND COVERAGE: [place] COVERAGE: Days: [phone], please page attending physician. Nights: [phone], please page [place] [facility] Night coverage pager [phone]. Subjective CC: Shortness of breath INTERVAL HPI: Feeling well today without complaints. No chest pain or shortness of breath. Cough is improving. Lower extremity edema much better. He is asking to get out of bed. Discussed discharge plan with daughter, PT/OT recommending SNF, daughter would like the the patient re evaluated tomorrow for potential home with home health care vs SNF. Current Facility-Administered Medications Medication Dose Route Frequency - atorvastatin 10 mg tab(s) (LIPITOR) 10 mg ORAL AT BEDTIME - amLODIPine 5 mg tab(s) (NORVASC) 5 mg ORAL DAILY - folic acid 1 mg tab(s) 1 mg ORAL DAILY - aspirin, enteric coated 81 mg tab(s) 81 mg ORAL DAILY - clopidogrel 75 mg tab(s) (PLAVIX) 75 mg ORAL DAILY - pantoprazole DR 40 mg tab(s) (PROTONIX) 40 mg ORAL DAILY (6 AM) - cyclobenzaprine 10 mg tab(s) (FLEXERIL) 10 mg ORAL TID PRN - NaCl 0.9% iv flush bag 20 mL INTRAVENOUS PRN - sodium chloride 0.9 % (flush) 3-5 mL (BD POSIFLUSH) 3-5 mL INTRAVENOUS q 12 H - ipratropium-albuterol 3 mL nebulizer solution (DUONEB) 3 mL INHALATION QID - aluminum-magnesium hydroxide-simethicone 200-200-20 mg/5 mL 30 mL (MAALOX,MYLANTA,MAG-AL PLUS) 30 mL ORAL q 6 H PRN - docusate sodium 100 mg cap(s) (COLACE) 100 mg ORAL BID PRN - magnesium hydroxide 400 mg/5 mL 30 mL (MOM) 30 mL ORAL DAILY PRN - acetaminophen 650 mg tab(s) (TYLENOL) 650 mg ORAL q 6 H PRN - potassium chloride ER 40 mEq tab(s) (K-DUR, KLOR-CON) 40 mEq ORAL TID - cyanocobalamin 1,000 mcg injection 1,000 mcg SUBCUTANEOUS DAILY - fludrocortisone 0.2 mg tab(s) (FLORINEF) 0.2 mg ORAL BID - melatonin 6 mg tab(s) 6 mg ORAL DAILY (8 PM) - QUEtiapine 25 mg tab(s) (SEROquel) 25 mg ORAL HS PRN - azithromycin 500 mg tab(s) (ZITHROMAX) 500 mg ORAL DAILY - cefdinir 300 mg (OMNICEF) 300 mg ORAL BID - furosemide 40 mg tab(s) (LASIX) 40 mg ORAL DAILY - predniSONE 40 mg tab(s) (DELTASONE) 40 mg ORAL DAILY Objective PHYSICAL EXAM: BP 147/45 Pulse 69 Temp (Src) 99 (Oral) Resp 20 Wt 221 lb 5.5 oz (100.4kg) SpO2 96% O2 Therapy: Room Air Physical Exam Performed GENERAL: Alert, oriented to place, year, date. Appropriately conversant SKIN: Skin color, texture, turgor normal. No rashes or lesions. HEAD/SINUSES: No significant findings. AT/NC EYES: Anicteric sclera, EOMI OROPHARYNX: MMM, no oral thrush or lesions LUNGS: Expiratory wheezing. He is speaking in full sentences CARDIAC: Normal S1 and S2; no rubs, murmurs, or gallops EXTREMITIES: Trace edema to BLE, good peripheral pulses Lines, Drains, and Airways Line Peripheral 08/17/21 1130 Short Right Antecubital 20 Gauge 4 days Drain External Collection Device 08/17/21 2220 3 days Reviewed lines and needs to be continued: REASONS: Telemetry DATA: Diagnostic tests reviewed for today's visit: Most recent labs Most recent imaging Most recent EKG Recent Labs 08/21/21 0443 08/20/21 0451 08/19/21 1727 WBC 5.48 4.57 5.49 HB 9.4* 8.0* 8.2* PLT 185 177 181 NA 142 147* 147* K 3.9 3.4* 2.9* CO2 27 28 27 BUN 19 21 20 CREAT 0.79 0.93 0.91 AST -- -- 22 ALT -- -- 14 TBILI -- -- 0.3 ALKPHOS -- -- 72 Assessment/Plan Shortness of breath - Presented for evaluation of shortness of breath x 1 day prior to admission - Good oxygen saturation on on room air - NT Pro BNP up at 1900 - CXR with bilateral pulmonary infiltrates - Started empiric ceftriaxone and azithromycin - Procal negative, will de escalate to oral cefdinir and azithromycin to complete total 5 day course of abx therapy - Started IV lasix with negative 5 L out and improved lower extremity edema - Transition to po lasix 40mg daily - Prednisone 40mg daily x 5 days for mild COPD exacerbation - Remains stable on room air Hypokalemia- Resolved - Suspect 2/2 diuresis - Supplement - BMP in am B 12 deficiency Folate deficiency Anemia - H/H low but stable in the 8-9 range - Very low B12 levels and folate deficiency, recently diagnosed at outpatient, had not started supplementation prior to admission - SQ B12 injections while here - Folic acid - No overt signs of bleeding - Monitor CBC daily Hallucinations PD work up underway - Ongoing hallucinations x1 year with associated gait shuffling, drooling, and fine motor difficulties - Worsening mentation/hallucinations since the passing of his about 3 weeks ago - Currently undergoing PD work up with neurolo (more content not included)... [id number] NoteHNO ID: [id number] Author: Carin Calixto APRN.[employer] Service: Hospital Medicine Author Type: Nurse Practitioner Type: Progress Notes Filed: 08/20/2021 11:33 AM Note Text: DEPARTMENT OF HOSPITAL MEDICINE PROGRESS NOTE SERVICE DATE: 08/20/2021 SERVICE TIME: 11:21 AM Hospital Medicine/Primary Attending: Clifton Sarmiento MD NIGHT AND WEEKEND COVERAGE: [place] COVERAGE: Days: [phone], please page attending physician. Nights: [phone], please page [place] [facility] Night coverage pager [phone]. Subjective CC: Shortness of breath INTERVAL HPI: Feeling much better today. Alert, oriented and appropriately conversant. Denies any shortness of breath. Coughing up some thick sputum at times. No fever or chills. Considering SNF at discharge. Current Facility-Administered Medications Medication Dose Route Frequency - atorvastatin 10 mg tab(s) (LIPITOR) 10 mg ORAL AT BEDTIME - amLODIPine 5 mg tab(s) (NORVASC) 5 mg ORAL DAILY - folic acid 1 mg tab(s) 1 mg ORAL DAILY - aspirin, enteric coated 81 mg tab(s) 81 mg ORAL DAILY - clopidogrel 75 mg tab(s) (PLAVIX) 75 mg ORAL DAILY - pantoprazole DR 40 mg tab(s) (PROTONIX) 40 mg ORAL DAILY (6 AM) - cyclobenzaprine 10 mg tab(s) (FLEXERIL) 10 mg ORAL TID PRN - NaCl 0.9% iv flush bag 20 mL INTRAVENOUS PRN - sodium chloride 0.9 % (flush) 3-5 mL (BD POSIFLUSH) 3-5 mL INTRAVENOUS q 12 H - ipratropium-albuterol 3 mL nebulizer solution (DUONEB) 3 mL INHALATION QID - aluminum-magnesium hydroxide-simethicone 200-200-20 mg/5 mL 30 mL (MAALOX,MYLANTA,MAG-AL PLUS) 30 mL ORAL q 6 H PRN - docusate sodium 100 mg cap(s) (COLACE) 100 mg ORAL BID PRN - magnesium hydroxide 400 mg/5 mL 30 mL (MOM) 30 mL ORAL DAILY PRN - acetaminophen 650 mg tab(s) (TYLENOL) 650 mg ORAL q 6 H PRN - potassium chloride ER 40 mEq tab(s) (K-DUR, KLOR-CON) 40 mEq ORAL TID - cyanocobalamin 1,000 mcg injection 1,000 mcg SUBCUTANEOUS DAILY - fludrocortisone 0.2 mg tab(s) (FLORINEF) 0.2 mg ORAL BID - melatonin 6 mg tab(s) 6 mg ORAL DAILY (8 PM) - QUEtiapine 25 mg tab(s) (SEROquel) 25 mg ORAL HS PRN - [START ON 08/21/2021] azithromycin 500 mg tab(s) (ZITHROMAX) 500 mg ORAL DAILY - [START ON 08/21/2021] cefdinir 300 mg (OMNICEF) 300 mg ORAL BID - [START ON 08/21/2021] furosemide 40 mg tab(s) (LASIX) 40 mg ORAL DAILY - predniSONE 40 mg tab(s) (DELTASONE) 40 mg ORAL DAILY Objective PHYSICAL EXAM: BP 167/64 Pulse 59 Temp (Src) 98.2 (Oral) Resp 14 Wt 194 lb (88.0kg) SpO2 89% O2 Therapy: Room Air Physical Exam Performed GENERAL: Alert, oriented to place, year, date. Appropriately conversant SKIN: Skin color, texture, turgor normal. No rashes or lesions. HEAD/SINUSES: No significant findings. AT/NC EYES: Anicteric sclera, EOMI OROPHARYNX: MMM, no oral thrush or lesions LUNGS: Expiratory wheezing. He is speaking in full sentences CARDIAC: Normal S1 and S2; no rubs, murmurs, or gallops EXTREMITIES: Trace edema to BLE, good peripheral pulses Lines, Drains, and Airways Line Peripheral 08/17/21 1130 Short Right Antecubital 20 Gauge 2 days Drain External Collection Device 08/17/21 2220 2 days Reviewed lines and needs to be continued: REASONS: Telemetry DATA: Diagnostic tests reviewed for today's visit: Most recent labs Most recent imaging Most recent EKG Recent Labs 08/20/21 0451 08/19/21 1727 08/18/21 0529 08/17/21 1130 WBC 4.57 5.49 3.57* 6.51 HB 8.0* 8.2* 8.2* 8.7* PLT 177 181 165 203 NA 147* 147* 144 144 K 3.4* 2.9* 2.7* 3.4* CO2 28 27 25 26 BUN 21 20 13 11 CREAT 0.93 0.91 0.74 0.77 AST -- 22 -- 16 ALT -- 14 -- 9* TBILI -- 0.3 -- 0.4 ALKPHOS -- 72 -- 86 Assessment/Plan Shortness of breath - Presented for evaluation of shortness of breath x 1 day prior to admission - Good oxygen saturation on on room air - NT Pro BNP up at 1900 - CXR with bilateral pulmonary infiltrates - Started empiric ceftriaxone and azithromycin - Procal negative, will de escalate to oral cefdinir and azithromycin - Started IV lasix with negative 5 L out and improved lower extremity edema - Transition to po lasix 40mg daily - Prednisone 40mg daily x 5 days for mild COPD exacerbation - Remains stable on room air Hypokalemia - Suspect 2/2 diuresis - Supplement - BMP in am B 12 deficiency Folate deficiency Anemia - H/H low but stable in the 8 range - Very low B12 levels and folate deficiency, recently diagnosed at outpatient, had not started supplementation prior to admission - SQ B12 injections while here - Folic acid - No overt signs of bleeding - Monitor CBC daily Hallucinations PD work up underway - Ongoing hallucinations x1 year with associated gait shuffling, drooling, and fine motor difficulties - Worsening mentation/hallucinations since the passing of his about 3 weeks ago - Currently undergoing PD work up with neurology as outpatient - Very low B 12 levels may also be contributing - Will s (more content not included)...[id number] NoteHNO ID: [id number] Author: Lillian Stanley RN Service: Care Management Author Type: Registered Nurse Type: Care Mgt Initial Assessment Filed: 08/19/2021 2:14 PM Note Text: CARE MANAGEMENT: ASSESSMENT AND DISCHARGE PLAN SERVICE DATE: August 19, 2021 SERVICE TIME: 1400 PRIMARY CARE PHYSICIAN: Jasson Bright MD ADMISSION STATUS: Inpatient Needs Prior to Discharge: To Be Determined;Accepting Facility;Bed Availability;OT/PT Evaluation;Insurance Authorization;Home Care Order;Facility or Agency Choices;Discharge Transportation;Discharge Prescriptions MEDICAL: [facility] [employer] MD[employer] HMO Patient/Survey Coordinator Stated Goals: To have reduction in pain;To have reduction in symptoms;To improve my functional status;To return home to life as it was;To be cured/healed Health Insurance: Comment (The Health Plan) Health Issues Impacting Discharge Plan: Chronic;Newly diagnosed Newly Diagnosed: dementia Chronic: Copd exacerbation Last Discharge Date: 06/21/16 Is this Within the Past 30 days? Last discharge within 30 days: No Advance Directive: Current Advance Directive: Health Care Power of Senior Behavioral Scientist In Chart: No Health LiteracyHow often do you need to have someone help you when you read instructions, pamphlets, or other written material from your doctor or pharmacy? : 3 - Sometimes How confident are you filling out medical forms by yourself?: 3 - Somewhat If Patient scores > 3 on either question, the following interventions were put into place:: Patient did not score > 3 on either question. Baseline Mental Status Prior to this Illness what was the patient's Baseline Mental Status?: Unable to complete assessment Prior to this illness, has anyone described the patient having any of the following behaviors?: Not Applicable Relationship of the informant to the patient:: Daughter Name of Informant: : Jj Cooney-daughter Functional Status: Needs Assistance Does Patient Currently Receive Any Community Services or Home Care?: [facility] Agency ([facility]) Equipment Prior to Admission: Walker;Wheelchair;Tub bench/chair;Oxygen (transfer chair from toilet to tub) Liters per minute: PRN Has the Patient Been in a Intermediate Facility in the Past 30 days?: No SOCIAL: Living Arrangements: Senior Apartment (Independent) Lives With: Alone Financial Resources: Retired Primary Contact: Extended Emergency Contact Information Primary Emergency Contact: Jj Cooney Mobile Relation: Daughter Secondary Emergency Contact: Lori Cooney Mobile Relation: Grandchild Supportive Patient Contact:: Yes Contact Resources: Family Family Name/Phone: Jj Cooney-daughter and granddaughter assists pt at home Caregiver AssessmentCaregiver is ready, willing and able to meet the patient's needs as recommended by the inter-professional team:: Yes Does the patient have an acute stroke diagnosis, or has the patient had a stroke during this admission?: No Patient's transition needs and plan for meeting these needs: Spoke with Jj she will speak with family and let me know their decision regarding discharge needs Patient's perception of need for this admission: Delirium and COPD exacerbation Medication Adherance I am convinced of the importance of my prescription medication: 0 - Agree Completely I worry that my prescription medication will do more harm than good to me : 0 - Disagree Completely I feel financially burdened by my [id number] expenses for my prescription medication:: 0 - Disagree Completely Risk Score: 0 Patient is categorized as: Low risk < 2 Are you interested in bedside delivery of your medications? No Is Patient Psychosocially Complex?: No ASSESSMENT AND PLAN: Medical Needs: Medical Needs: Two or more chronic diseases;Obesity;Durable Medical Equipment;Fall risk or frequent falls Psychosocial Needs: Psychosocial Needs: None FREEDOM OF CHOICE EXPLAINED: [place] of Choice Given: Yes Level of Care Discussed: Home Care;Intermediate Facility POTENTIAL TRANSITION PLANS To Be Determined Telephoned and spoke with Jj Cooney daughter since pt was confused. Pt was admitted to [facility] in May and then discharged to the [facility], was discharged to home with [facility]. Pt was being discharged this week from home care services. Jj states pt has been doing really well at home but has been depressed due to spouse in 2020. Jj will speak with family regarding SNF vs. Home with [facility] and she will notify me this afternoon their decision. SIGNATURE: Lillian Stanley RN PATIENT NAME: Kerry Warner DATE: August 19, 2021 TIME: 2:04 PM PAGER/CONTACT #: [phone] NoteHNO ID: [id number] Author: Carin Calixto APRN.CNP Service: Hospital Medicine Author Type: Nurse Practitioner Type: Progress Notes Filed: 08/19/2021 1:23 PM Note Text: DEPARTMENT OF HOSPITAL MEDICINE PROGRESS NOTE SERVICE DATE: 08/19/2021 SERVICE TIME: 11:24 AM Hospital Medicine/Primary Attending: Clifton Sarmiento MD NIGHT AND WEEKEND COVERAGE: [place] COVERAGE: : [phone], please page attending physician. Nights: [phone], please page [place] [facility] Night coverage pager [phone]. Subjective CC: Shortness of breath INTERVAL HPI: AM labs pending. He is more lethargic today. Does not want to be disturbed, cursing staff and waving his arms at them when they try to arouse him. Wet moist cough noted. Sitter at bedside to maintain patient safety. Reportedly was up intermittently throughout the night. Current Facility-Administered Medications Medication Dose Route Frequency - atorvastatin 10 mg tab(s) (LIPITOR) 10 mg ORAL AT BEDTIME - amLODIPine 5 mg tab(s) (NORVASC) 5 mg ORAL DAILY - folic acid 1 mg tab(s) 1 mg ORAL DAILY - fludrocortisone 0.2 mg tab(s) (FLORINEF) 0.2 mg ORAL TID w MEALS - aspirin, enteric coated 81 mg tab(s) 81 mg ORAL DAILY - clopidogrel 75 mg tab(s) (PLAVIX) 75 mg ORAL DAILY - pantoprazole DR 40 mg tab(s) (PROTONIX) 40 mg ORAL DAILY (6 AM) - cyclobenzaprine 10 mg tab(s) (FLEXERIL) 10 mg ORAL TID PRN - NaCl 0.9% iv flush bag 20 mL INTRAVENOUS PRN - sodium chloride 0.9 % (flush) 3-5 mL (BD POSIFLUSH) 3-5 mL INTRAVENOUS q 12 H - ipratropium-albuterol 3 mL nebulizer solution (DUONEB) 3 mL INHALATION QID - aluminum-magnesium hydroxide-simethicone 200-200-20 mg/5 mL 30 mL (MAALOX,MYLANTA,MAG-AL PLUS) 30 mL ORAL q 6 H PRN - docusate sodium 100 mg cap(s) (COLACE) 100 mg ORAL BID PRN - magnesium hydroxide 400 mg/5 mL 30 mL (MOM) 30 mL ORAL DAILY PRN - acetaminophen 650 mg tab(s) (TYLENOL) 650 mg ORAL q 6 H PRN - cefTRIAXone 1 g in D5W 100 mL MB+ (ROCEPHIN) 1 g INTRAVENOUS q 24 H - azithromycin 500 mg in D5W 250 mL Vial-Mate (ZITHROMAX) 500 mg INTRAVENOUS DAILY - furosemide 20 mg injection (LASIX) 20 mg INTRAVENOUS BID 9a/5p - potassium chloride ER 40 mEq tab(s) (K-DUR, KLOR-CON) 40 mEq ORAL TID - cyanocobalamin 1,000 mcg injection 1,000 mcg SUBCUTANEOUS DAILY Objective PHYSICAL EXAM: BP 149/57 Pulse 65 Temp (Src) 98.6 (Axillary) Resp 18 Wt 194 lb (88.0kg) SpO2 95% O2 Therapy: Room Air Physical Exam Performed GENERAL: Increased lethargy from prior exam. Waves arms at staff when he is touched SKIN: Skin color, texture, turgor normal. No rashes or lesions. HEAD/SINUSES: No significant findings. AT/NC EYES: Anicteric sclera, EOMI OROPHARYNX: MMM, no oral thrush or lesions LUNGS: Rhonchi noted and moist cough observed CARDIAC: Normal S1 and S2; no rubs, murmurs, or gallops EXTREMITIES: 1+ Pitting edema to BLE, good peripheral pulses Lines, Drains, and Airways Line Peripheral 08/17/21 1130 Short Right Antecubital 20 Gauge 2 days Drain External Collection Device 08/17/21 2220 1 day Reviewed lines and needs to be continued: REASONS: Telemetry DATA: Diagnostic tests reviewed for today's visit: Most recent labs Most recent imaging Most recent EKG Recent Labs 08/18/21 0529 08/17/21 1130 08/17/21 1020 WBC 3.57* 6.51 5.38 HB 8.2* 8.7* 8.0* PLT 165 203 173 NA 144 144 -- K 2.7* 3.4* -- CO2 25 26 -- BUN 13 11 -- CREAT 0.74 0.77 -- AST -- 16 -- ALT -- 9* -- TBILI -- 0.4 -- ALKPHOS -- 86 -- Assessment/Plan Shortness of breath - Presented for evaluation of shortness of breath x 1 day prior to admission - Good oxygen saturation on on room air - NT Pro BNP up at 1900 - CXR with bilateral pulmonary infiltrates - Started empiric ceftriaxone and azithromycin - Checking procal, may be able to stop abx if negative - Started IV lasix with negative 3.7 L out and improved lower extremity edema - Stopped steroids, no wheezing on exam and he is HDS on room air Hypokalemia - Suspect 2/2 diuresis - Supplement - BMP in am - pending B 12 deficiency Anemia - H/H low but stable at 8.2/25.6 - Very low B12 levels, has not started oral supplementation yet - Will begin SQ B12 injections while here - No overt signs of bleeding - Monitor CBC daily Hallucinations - Ongoing hallucinations x1 year with associated gait shuffling and fine motor difficulties - Worsening mentation/hallucinations since the passing of his about 3 weeks ago - Currently undergoing PD work up with neurology as outpatient - Very low B 12 levels may also be contributing - Will start SQ B12 injections Delirium - Suspect hospital acquired delirium, waxing waning mentation - AM labs pending - Delirium protocol in place - Maintain patient safety with sitter at bedside as needed Physical debility - PT/OT evaluations - Fall precautions Medication and Non-Pharmacologic VTE Prophylaxis/Anticoagulant (more content not included)...[facility] [id number] NoteHNO ID: [id number] Author: Lillian Stanley RN Service: Care Management Author Type: Registered Nurse Type: Care Mgt Progress Note Filed: 08/18/2021 5:15 PM Note Text: CARE MANAGEMENT PROGRESS NOTE SERVICE DATE: 08/18/2021 SERVICE TIME: 1715 LOS: 1 day progress note Telephoned and left message for pt's daughter Jj Cooney, will call tomorrow to complete assessment since hes confused. SIGNATURE: Lillian Stanley RN PATIENT NAME: Kerry Warner DATE: August 18, 2021 TIME: 5:14 PM PAGER/CONTACT #: [phone] NoteHNO ID: [id number] Author: Carin Calixto APRN.CNP Service: Hospital Medicine Author Type: Nurse Practitioner Type: Progress Notes Filed: 08/18/2021 4:10 PM Note Text: DEPARTMENT OF HOSPITAL MEDICINE PROGRESS NOTE SERVICE DATE: 08/18/2021 SERVICE TIME: 10:06 AM Hospital Medicine/Primary Attending: Clifton Sarmiento MD NIGHT AND WEEKEND COVERAGE: [place] COVER[employer]: Days: [phone], please page attending physician. Nights: [phone], please page [facility] Night coverage pager [phone]. Subjective CC: Shortness of breath INTERVAL HPI: Patient laying in bed restless, sitter at bedside. He is alert and oriented to place, time, year, month and appropriately conversant. States he knows he is having hallucinations and he even talks to them because they are always nice. Denies any shortness of breath or cough. No fever or chills. Current Facility-Administered Medications Medication Dose Route Frequency - atorvastatin 10 mg tab(s) (LIPITOR) 10 mg ORAL AT BEDTIME - amLODIPine 5 mg tab(s) (NORVASC) 5 mg ORAL DAILY - folic acid 1 mg tab(s) 1 mg ORAL DAILY - fludrocortisone 0.2 mg tab(s) (FLORINEF) 0.2 mg ORAL TID w MEALS - aspirin, enteric coated 81 mg tab(s) 81 mg ORAL DAILY - clopidogrel 75 mg tab(s) (PLAVIX) 75 mg ORAL DAILY - pantoprazole DR 40 mg tab(s) (PROTONIX) 40 mg ORAL DAILY (6 AM) - cyclobenzaprine 10 mg tab(s) (FLEXERIL) 10 mg ORAL TID PRN - NaCl 0.9% iv flush bag 20 mL INTRAVENOUS PRN - sodium chloride 0.9 % (flush) 3-5 mL (BD POSIFLUSH) 3-5 mL INTRAVENOUS q 12 H - ipratropium-albuterol 3 mL nebulizer solution (DUONEB) 3 mL INHALATION q 4 HR And - ipratropium-albuterol 3 mL nebulizer solution (DUONEB) 3 mL INHALATION QID - aluminum-magnesium hydroxide-simethicone 200-200-20 mg/5 mL 30 mL (MAALOX,MYLANTA,MAG-AL PLUS) 30 mL ORAL q 6 H PRN - docusate sodium 100 mg cap(s) (COLACE) 100 mg ORAL BID PRN - magnesium hydroxide 400 mg/5 mL 30 mL (MOM) 30 mL ORAL DAILY PRN - acetaminophen 650 mg tab(s) (TYLENOL) 650 mg ORAL q 6 H PRN - cefTRIAXone 1 g in D5W 100 mL MB+ (ROCEPHIN) 1 g INTRAVENOUS q 24 H - azithromycin 500 mg in D5W 250 mL Vial-Mate (ZITHROMAX) 500 mg INTRAVENOUS DAILY - furosemide 20 mg injection (LASIX) 20 mg INTRAVENOUS BID 9a/5p - potassium chloride ER 40 mEq tab(s) (K-DUR, KLOR-CON) 40 mEq ORAL TID - [START ON 08/19/2021] cyanocobalamin 1,000 mcg injection 1,000 mcg SUBCUTANEOUS DAILY Objective PHYSICAL EXAM: BP 174/72 Pulse 95 Temp (Src) 98.6 (Axillary) Resp 20 Wt 194 lb (88.0kg) SpO2 99% O2 Therapy: Room Air Physical Exam Performed GENERAL: Alert, no distress, cooperative. He is restless but appropriately conversant SKIN: Skin color, texture, turgor normal. No rashes or lesions. HEAD/SINUSES: No significant findings. AT/NC EYES: Anicteric sclera, EOMI OROPHARYNX: MMM, no oral thrush or lesions LUNGS: Lungs clear to auscultation, good diaphragmatic excursion CARDIAC: Normal S1 and S2; no rubs, murmurs, or gallops EXTREMITIES: 2+ Pitting edema to BLE, good peripheral pulses Lines, Drains, and Airways Line Peripheral 08/17/21 1130 Short Right Antecubital 20 Gauge 1 day Drain External Collection Device 08/17/21 2220 <1 day Reviewed lines and needs to be continued: REASONS: Telemetry DATA: Diagnostic tests reviewed for today's visit: Most recent labs Most recent imaging Most recent EKG Recent Labs 08/18/21 0529 08/17/21 1130 08/17/21 1020 WBC 3.57* 6.51 5.38 HB 8.2* 8.7* 8.0* PLT 165 203 173 NA 144 144 -- K 2.7* 3.4* -- CO2 25 26 -- BUN 13 11 -- CREAT 0.74 0.77 -- AST -- 16 -- ALT -- 9* -- TBILI -- 0.4 -- ALKPHOS -- 86 -- Assessment/Plan Shortness of breath - Presented for evaluation of shortness of breath x 1 day prior to admission - Good oxygen saturation on on room air - NT Pro BNP up at 1900 - CXR with bilateral pulmonary infiltrates - Started empiric ceftriaxone and azithromycin - Checking procal, may be able to stop abx if negative - Started IV lasix with negative 2.2 L out - Stopped steroids, no wheezing on exam and he is HDS on room air Hypokalemia - Suspect 2/2 diuresis - Supplement - BMP in am B 12 deficiency Anemia - H/H low but stable at 8.2/25.6 - Very low B12 levels, has not started oral supplementation yet - Will begin SQ B12 injections while here - No overt signs of bleeding - Monitor CBC daily Hallucinations - Ongoing hallucinations x1 year with associated gait shuffling and fine motor difficulties - Worse since the passing of his about 3 weeks ago - Currently undergoing PD work up with neurology as outpatient - Very low B 12 levels may also be contributing - Will start SQ B12 injections Medication and Non-Pharmacologic VTE Prophylaxis/Anticoagulants Anticoagulant AND Antiplatelet Medications (From admission, onward) Start Dose Route Frequency Last Action Ordered Stop 08/17/21 1800 aspirin, enteric coated 8 (more content not included)...[id number] of Past illness Narrative* Problem Noted Date Resolved Date COPD exacerbation 08/17/2021 08/26/2021 Upper back strain 02/19/2018 02/02/2021 Tubulovillous adenoma polyp of colon 06/21/2016 06/21/2016 Chronic superficial gastritis without bleeding 0 06/21/2016 06/21/2016 Hypokalemia 02/12/2015 05/06/2015 Tobacco use disorder 10/23/2008 12/19/2011 documented as of this encounter (statuses as of 01/04/2022) [facility]21 History of Past illness Narrative* Problem Noted Date Resolved Date COPD exacerbation 08/17/2021 08/26/2021 Upper back strain 02/19/2018 02/02/2021 Tubulovillous adenoma polyp of colon 06/21/2016 06/21/2016 Chronic superficial gastritis without bleeding 0 06/21/2016 06/21/2016 Hypokalemia 02/12/2015 05/06/2015 Tobacco use disorder 10/23/2008 12/19/2011 documented as of this encounter (statuses as of 01/11/2022) [facility] History of Past illness Narrative* Problem Noted Date Resolved Date COPD exacerbation 08/17/2021 08/26/2021 Upper back strain 02/19/2018 02/02/2021 Tubulovillous adenoma polyp of colon 06/21/2016 06/21/2016 Chronic superficial gastritis without bleeding 0 06/21/2016 06/21/2016 Hypokalemia 02/12/2015 05/06/2015 Tobacco use disorder 10/23/2008 12/19/2011 documented as of this encounter (statuses as of 01/11/2022) [facility] History of Past illness Narrative* Problem Noted Date Resolved Date COPD exacerbation 08/17/2021 08/26/2021 Upper back strain 02/19/2018 02/02/2021 Tubulovillous adenoma polyp of colon 06/21/2016 06/21/2016 Chronic superficial gastritis without bleeding 0 06/21/2016 06/21/2016 Hypokalemia 02/12/2015 05/06/2015 Tobacco use disorder 10/23/2008 12/19/2011 documented as of this encounter (statuses as of 01/12/2022) [facility] History of Past illness Narrative* Problem Noted Date Resolved Date COPD exacerbation 08/17/2021 08/26/2021 Upper back strain 02/19/2018 02/02/2021 Tubulovillous adenoma polyp of colon 06/21/2016 06/21/2016 Chronic superficial gastritis without bleeding 0 06/21/2016 06/21/2016 Hypokalemia 02/12/2015 05/06/2015 Tobacco use disorder 10/23/2008 12/19/2011 documented as of this encounter (statuses as of 01/20/2022) [facility] History of Past illness Narrative* Problem Noted Date Resolved Date COPD exacerbation 08/17/2021 08/26/2021 Upper back strain 02/19/2018 02/02/2021 Tubulovillous adenoma polyp of colon 06/21/2016 06/21/2016 Chronic superficial gastritis without bleeding 0 06/21/2016 06/21/2016 Hypokalemia 02/12/2015 05/06/2015 Tobacco use disorder 10/23/2008 12/19/2011 documented as of this encounter (statuses as of 01/24/2022) [facility] History of Past illness Narrative* Problem Noted Date Resolved Date COPD exacerbation 08/17/2021 08/26/2021 Upper back strain 02/19/2018 02/02/2021 Tubulovillous adenoma polyp of colon 06/21/2016 06/21/2016 Chronic superficial gastritis without bleeding 0 06/21/2016 06/21/2016 Hypokalemia 02/12/2015 05/06/2015 Tobacco use disorder 10/23/2008 12/19/2011 documented as of this encounter (statuses as of 01/31/2022) [facility] History of Past illness Narrative* Problem Noted Date Resolved Date COPD exacerbation 08/17/2021 08/26/2021 Upper back strain 02/19/2018 02/02/2021 Tubulovillous adenoma polyp of colon 06/21/2016 06/21/2016 Chronic superficial gastritis without bleeding 0 06/21/2016 06/21/2016 Hypokalemia 02/12/2015 05/06/2015 Tobacco use disorder 10/23/2008 12/19/2011 documented as of this encounter (statuses as of 01/31/2022) [facility] History of Past illness Narrative* Problem Noted Date Resolved Date COPD exacerbation 08/17/2021 08/26/2021 Upper back strain 02/19/2018 02/02/2021 Tubulovillous adenoma polyp of colon 06/21/2016 06/21/2016 Chronic superficial gastritis without bleeding 0 06/21/2016 06/21/2016 Hypokalemia 02/12/2015 05/06/2015 Tobacco use disorder 10/23/2008 12/19/2011 documented as of this encounter (statuses as of 02/07/2022) [facility] History of Past illness Narrative* Problem Noted Date Resolved Date COPD exacerbation 08/17/2021 08/26/2021 Upper back strain 02/19/2018 02/02/2021 Tubulovillous adenoma polyp of colon 06/21/2016 06/21/2016 Chronic superficial gastritis without bleeding 0 06/21/2016 06/21/2016 Hypokalemia 02/12/2015 05/06/2015 Tobacco use disorder 10/23/2008 12/19/2011 documented as of this encounter (statuses as of 02/10/2022) [facility] History of Past illness Narrative* Problem Noted Date Resolved Date COPD exacerbation 08/17/2021 08/26/2021 Upper back strain 02/19/2018 02/02/2021 Tubulovillous adenoma polyp of colon 06/21/2016 06/21/2016 Chronic superficial gastritis without bleeding 0 06/21/2016 06/21/2016 Hypokalemia 02/12/2015 05/06/2015 Tobacco use disorder 10/23/2008 12/19/2011 documented as of this encounter (statuses as of 02/13/2022) [facility] History of Past illness Narrative* Problem Noted Date Resolved Date COPD exacerbation 08/17/2021 08/26/2021 Upper back strain 02/19/2018 02/02/2021 Tubulovillous adenoma polyp of colon 06/21/2016 06/21/2016 Chronic superficial gastritis without bleeding 0 06/21/2016 06/21/2016 Hypokalemia 02/12/2015 05/06/2015 Tobacco use disorder 10/23/2008 12/19/2011 documented as of this encounter (statuses as of 02/15/2022) [facility] Diagnosis Orthostatic hypotension- Primary [facility] Parkinson disease (HCC)- Primary Paralysis agitans Alzheimer's disease (HCC) Alzheimer's disease Visual hallucination Psychophysical visual disturbances Falling Unspecified fall Orthostatic hypotension Obstructive chronic bronchitis without exacerbation (HCC) Obstructive chronic bronchitis without exacerbation Atherosclerosis of [place] coronary artery without angina pectoris, unspecified whether [place] or transplanted heart Hypertensive heart disease with congestive heart failure, unspecified heart failure type ([facility]) Heart failure, unspecified HF chronicity, unspecified heart failure type ([facility]) Anemia, unspecified type Anxiety Anxiety state, unspecified Atrial fibrillation, unspecified type ([facility]) Altered mental status, unspecified altered mental status type- Primary Abnormality of gait Lightheadedness Dizziness and giddiness Orthostatic hypotension Visual hallucinations Psychophysical visual disturbances [facility] Diagnosis Mixed hyperlipidemia- Primary Altered mental status, unspecified altered mental status type Abnormality of gait Lightheadedness Dizziness and giddiness Orthostatic hypotension Visual hallucinations Psychophysical visual disturbances documented in this encounter [facility] note* Diagnosis Controlled type 2 diabetes mellitus without complication, without long-term current use of insulin ([facility])- Primary Essential hypertension, benign Mixed hyperlipidemia Bilateral carotid artery stenosis Occlusion and stenosis of carotid artery without mention of cerebral infarction Chronic diastolic CHF (congestive heart failure) ([facility]) Chronic diastolic heart failure Coronary artery disease due to lipid rich plaque GERD without esophagitis Esophageal reflux Chronic tension-type headache, not intractable Chronic tension type headache Anxiety about health Anemia of chronic disease Anemia of other chronic disease Low serum vitamin B12 Low folate Obesity, Class III, BMI 40-49.9 (morbid obesity) ([facility]) Morbid obesity Current smoker Tobacco use disorder Parkinson disease (HCC) Paralysis agitans Medication management Encounter for long-term (current) use of other medications Prostate disorder Unspecified disorder of prostate Blood pressure instability Other abnormal clinical finding [facility] Diagnosis Bilateral carotid artery stenosis Occlusion and stenosis of carotid artery without mention of cerebral infarction [facility] Diagnosis Anemia of chronic disease Anemia of other chronic disease documented in this encounter [facility] note* Diagnosis Anemia of chronic disease- Primary Anemia of other chronic disease [facility] Diagnosis Onychomycosis- Primary Dermatophytosis of nail Pain in left foot Pain in limb Pain in toe of right foot Pain in limb Ingrowing toenail Ingrowing nail Controlled type 2 diabetes mellitus without complication, without long-term current use of insulin (HCC) [facility] Diagnosis Open wound of toe, initial encounter- Primary [facility] Diagnosis Fall, subsequent encounter- Primary Chronic midline low back pain without sciatica Need for influenza vaccination Need for prophylactic vaccination and inoculation against influenza Drooling Disturbance of salivary secretion Parkinson disease (HCC) Paralysis agitans [facility] Diagnosis Fall, subsequent encounter- Primary Balance disorder Other symptoms involving nervous and musculoskeletal systems Parkinson disease (HCC) Paralysis agitans [facility]* Diagnosis Anemia, unspecified type- Primary [facility] Diagnosis Onychomycosis- Primary Dermatophytosis of nail Pain in left foot Pain in limb Pain in toe of right foot Pain in limb Controlled type 2 diabetes mellitus without complication, without long-term current use of insulin (HCC) Diminished pulses in lower extremity Other symptoms involving cardiovascular system Ingrowing toenail Ingrowing nail [facility] Diagnosis Acute otitis media, left- Primary Unspecified otitis media [facility]* Diagnosis Left ear pain- Primary Otalgia, unspecified Eye problem Other eye problems Balance disorder Other symptoms involving nervous and musculoskeletal systems [facility]* Diagnosis Encounter for Medicare annual wellness exam- Primary Routine general medical examination at a health care facility Controlled type 2 diabetes mellitus without complication, without long-term current use of insulin ([facility]) Essential hypertension, benign Mixed hyperlipidemia Bilateral carotid artery stenosis Occlusion and stenosis of carotid artery without mention of cerebral infarction Blood pressure instability Other abnormal clinical finding Coronary artery disease due to lipid rich plaque Chronic diastolic CHF (congestive heart failure) (HCC) Chronic diastolic heart failure Chronic tension-type headache, not intractable Chronic tension type headache GERD without esophagitis Esophageal reflux Anemia of chronic disease Anemia of other chronic disease Anxiety about health Parkinson disease ([facility]) Paralysis agitans Obesity, Class III, BMI 40-49.9 (morbid obesity) ([facility]) Morbid obesity Orthostatic hypotension Ex-smoker Personal history of tobacco use, presenting hazards to health Low serum vitamin B12 Low folate Benign prostatic hyperplasia with urinary obstruction Bilateral hearing loss, unspecified hearing loss type Advance directive discussed with patient Other specified counseling Medication management Encounter for long-term (current) use of other medications Prostate disorder Unspecified disorder of prostate documented in this encounter [facility] note* Diagnosis Altered mental status, unspecified altered mental status type- Primary Visual hallucinations Psychophysical visual disturbances documented in this encounter [facility] note* Diagnosis Onychomycosis- Primary Dermatophytosis of nail Pain in left foot Pain in limb Pain in toe of right foot Pain in limb Controlled type 2 diabetes mellitus without complication, without long-term current use of insulin (HCC) documented in this encounter [facility] note* Diagnosis Hypoxia- Primary Hypoxemia documented in this encounter [facility] note* Diagnosis Bilateral carotid artery stenosis Occlusion and stenosis of carotid artery without mention of cerebral infarction documented in this encounter [facility] note* Diagnosis Hypoxia Hypoxemia documented in this encounter [facility] for referral (narrative)* Outpatient Procedure (Routine) - Pending Review Specialty Diagnoses / Procedures Referred By Contac t Referred To Contact [facility] Diagnoses Bilateral carotid artery stenosis Procedures US CAROTID ARTERIES KATHERINE VAS LAB DUPLEX SCAN EXTRACRANIAL ART COMPL BI STUDY Jasson Bright MD [address] [place] [address] [facility] [address] [place] [address] Referral ID Status Reason Start Date Expiration Date Visits Requested Visits Authorized [id number] Pending Review Auto-Generat ed Referral 02/17/2022 02/17/2023 1 1 [facility] for referral (narrative)* Diagnostic Procedure Only (Routine) - Pending Review Specialty Diagnoses / Procedures Referred By Contac t Referred To Contact XR IMAGING Diagnoses Ingrowing toenail Procedures XR TOE AP/LAT/OBL LEFT RADEX TOE MINIMUM [address] [place] [address] Xr Imaging Referral ID Status Reason Start Date Expiration Date Visits Requested Visits Authorized [id number] Pending Review Auto-Generat ed Referral 05/22/2022 06/21/2023 1 1 [facility] for referral (narrative)* Outpatient Procedure (Routine) - Pending Review Specialty Diagnoses / Procedures Referred By Contac t Referred To Contact [facility] Diagnoses Bilateral carotid artery stenosis Procedures US CAROTID ARTERIES KATHERINE VAS LAB DUPLEX SCAN EXTRACRANIAL ART COMPL BI STUDY Jasson Bright MD [address] [place] [address] [facility] [address] [place] [id number] Referral ID Status Reason Start Date Expiration Date Visits Requested Visits Authorized [id number] Pending Review Auto-Generat ed Referral 02/01/2023 02/01/2024 1 1 [facility] for referral (narrative)* Outpatient Procedure (Routine) - Authorized Specialty Diagnoses / Procedures Referred By Contac t Referred To Contact [facility] Diagnoses Hypoxia Procedures OXIMETRY WITH AMBULATION NONINVASIVE EAR/PULSE OXIMETRY MULTIPLE DETER Jasson Bright MD [address] [place] [address] [facility] [address] [place] [address] Referral ID Status Reason Start Date Expiration Date Visits Requested Visits Authorized [id number] Authorized Auto-Generat ed Referral 05/17/2023 09/30/2023 1 1 [facility] Summary Purpose Family History No Family History Records FoundNo Family History Records Found Advance Directives No Advanced Directives Records FoundDocuments on File Type Date Recorded Patient Survey Coordinator Expl anation Advance Directive(s) 08/17/2021 12:09 PM Advance Directive(s) 06/21/2016 1:12 PM Advance Directive(s) 06/16/2016 4:19 PM Documents on File Type Date Recorded Patient Survey Coordinator Expl anation Advance Directive(s) 08/17/2021 12:09 PM Advance Directive(s) 06/21/2016 1:12 PM Advance Directive(s) 06/16/2016 4:19 PM Reason for Referral Specialty Diagnoses / Procedures Referred By Contac t Referred To Contact Neurology Diagnoses Orthostatic hypotension Procedures CONSULT TO NEUROLOGY OFFICE/OUTPATIENT [facility] 60-74 MINUTES Magnolia Perdomo, EDUCATIONAL INTERPRETER.[employer] WORK[employer] [address] [place] [address] Referral ID Status Reason Start Date Expiration Date Visits Requested Visits Authorized [id number] Authorized PCP Requested Referral 01/12/2022 01/12/2023 1 1 Specialty Diagnoses / Procedures Referred By Contac t Referred To Contact Neurology Diagnoses Altered mental status, unspecified altered mental status type Procedures CONSULT TO NEUROLOGY OFFICE/OUTPATIENT [facility] 60-74 MINUTES Magnolia Perdomo, EDUCATIONAL INTERPRETER.[employer] WORKER [address] [place] [address] Referral ID Status Reason Start Date Expiration Date Visits Requested Visits Authorized [id number] Authorized PCP Requested Referral 02/09/2022 02/09/2023 1 1 Specialty Diagnoses / Procedures Referred By Contac t Referred To Contact Ent - Otolaryngology Diagnoses Left ear pain Balance disorder Procedures CONSULT TO ENT OFFICE/OUTPATIENT [facility] 60-74 MINUTES Thao Menchaca PA-C [address] [place] [address] Referral ID Status Reason Start Date Expiration Date Visits Requested Visits Authorized [id number] Authorized PCP Requested Referral 01/08/2023 01/08/2024 1 1 Specialty Diagnoses / Procedures Referred By Contac t Referred To Contact Neurology Diagnoses Altered mental status, unspecified altered mental status type Visual hallucinations Procedures CONSULT TO NEUROLOGY OFFICE/OUTPATIENT [facility] 60-74 MINUTES Magnolia Perdomo, EDUCATIONAL INTERPRETER.[employer] WORKER [address] [place] [address] Referral ID Status Reason Start Date Expiration Date Visits Requested Visits Authorized [id number] Authorized PCP Requested Referral 04/17/2023 04/16/2024 1 1 Additional Source Comments (unrecognized sect ion and content) No Status Records FoundNo Status Records Found INFORMATION SOURCE (unrecogn ized section and content) DATE CREATED AUTHOR AUTHOR'S ORGANIZ ATION 08/20/2023 [facility] Source Comments (unrecognize d section and content) In the event this informatio n is protected by the Federal Confidentiality of Alcohol and Drug Abuse Patient Records regulations: The Federal rules restrict any use of the information to criminally investigate or prosecute any alcohol or drug abuse patient.[facility] the event this information is protected by the Federal Confidentiality of Alcohol and Drug Abuse Patient Records regulations: The Federal rules restrict any use of the information to criminally investigate or prosecute any alcohol or drug abuse patient.[facility] the event this information is protected by the Federal Confidentiality of Alcohol and Drug Abuse Patient Records regulations: The Federal rules restrict any use of the information to criminally investigate or prosecute any alcohol or drug abuse patient.[facility] the event this information is protected by the Federal Confidentiality of Alcohol and Drug Abuse Patient Records regulations: The Federal rules restrict any use of the information to criminally investigate or prosecute any alcohol or drug abuse patient.[facility] the event this information is protected by the Federal Confidentiality of Alcohol and Drug Abuse Patient Records regulations: The Federal rules restrict any use of the information to criminally investigate or prosecute any alcohol or drug abuse patient.[facility] the event this information is protected by the Federal Confidentiality of Alcohol and Drug Abuse Patient Records regulations: The Federal rules restrict any use of the information to criminally investigate or prosecute any alcohol or drug abuse patient.[facility] the event this information is protected by the Federal Confidentiality of Alcohol and Drug Abuse Patient Records regulations: The Federal rules restrict any use of the information to criminally investigate or prosecute any alcohol or drug abuse patient.[facility] the event this information is protected by the Federal Confidentiality of Alcohol and Drug Abuse Patient Records regulations: The Federal rules restrict any use of the information to criminally investigate or prosecute any alcohol or drug abuse patient.[facility] the event this information is protected by the Federal Confidentiality of Alcohol and Drug Abuse Patient Records regulations: The Federal rules restrict any use of the information to criminally investigate or prosecute any alcohol or drug abuse patient.[facility] the event this information is protected by the Federal Confidentiality of Alcohol and Drug Abuse Patient Records regulations: The Federal rules restrict any use of the information to criminally investigate or prosecute any alcohol or drug abuse patient.[facility] the event this information is protected by the Federal Confidentiality of Alcohol and Drug Abuse Patient Records regulations: The Federal rules restrict any use of the information to criminally investigate or prosecute any alcohol or drug abuse patient.[facility] the event this information is protected by the Federal Confidentiality of Alcohol and Drug Abuse Patient Records regulations: The Federal rules restrict any use of the information to criminally investigate or prosecute any alcohol or drug abuse patient.[facility] the event this information is protected by the Federal Confidentiality of Alcohol and Drug Abuse Patient Records regulations: The Federal rules restrict any use of the information to criminally investigate or prosecute any alcohol or drug abuse patient.[facility] the event this information is protected by the Federal Confidentiality of Alcohol and Drug Abuse Patient Records regulations: The Federal rules restrict any use of the information to criminally investigate or prosecute any alcohol or drug abuse patient.[facility] the event this information is protected by the Federal Confidentiality of Alcohol and Drug Abuse Patient Records regulations: The Federal rules restrict any use of the information to criminally investigate or prosecute any alcohol or drug abuse patient.[facility] the event this information is protected by the Federal Confidentiality of Alcohol and Drug Abuse Patient Records regulations: The Federal rules restrict any use of the information to criminally investigate or prosecute any alcohol or drug abuse patient.[facility] the event this information is protected by the Federal Confidentiality of Alcohol and Drug Abuse Patient Records regulations: The Federal rules restrict any use of the information to criminally investigate or prosecute any alcohol or drug abuse patient.[facility] the event this information is protected by the Federal Confidentiality of Alcohol and Drug Abuse Patient Records regulations: The Federal rules restrict any use of the information to criminally investigate or prosecute any alcohol or drug abuse patient.[facility] the event this information is protected by the Federal Confidentiality of Alcohol and Drug Abuse Patient Records regulations: The Federal rules restrict any use of the information to criminally investigate or prosecute any alcohol or drug abuse patient.[facility] the event this information is protected by the Federal Confidentiality of Alcohol and Drug Abuse Patient Records regulations: The Federal rules restrict any use of the information to criminally investigate or prosecute any alcohol or drug abuse patient.[facility] the event this information is protected by the Federal Confidentiality of Alcohol and Drug Abuse Patient Records regulations: The Federal rules restrict any use of the information to criminally investigate or prosecute any alcohol or drug abuse patient.[facility] the event this information is protected by the Federal Confidentiality of Alcohol and Drug Abuse Patient Records regulations: The Federal rules restrict any use of the information to criminally investigate or prosecute any alcohol or drug abuse patient.[facility] the event this information is protected by the Federal Confidentiality of Alcohol and Drug Abuse Patient Records regulations: The Federal rules restrict any use of the information to criminally investigate or prosecute any alcohol or drug abuse patient.[facility] the event this information is protected by the Federal Confidentiality of Alcohol and Drug Abuse Patient Records regulations: The Federal rules restrict any use of the information to criminally investigate or prosecute any alcohol or drug abuse patient.[facility] the event this information is protected by the Federal Confidentiality of Alcohol and Drug Abuse Patient Records regulations: The Federal rules restrict any use of the information to criminally investigate or prosecute any alcohol or drug abuse patient.[facility] the event this information is protected by the Federal Confidentiality of Alcohol and Drug Abuse Patient Records regulations: The Federal rules restrict any use of the information to criminally investigate or prosecute any alcohol or drug abuse patient.[facility] the event this information is protected by the Federal Confidentiality of Alcohol and Drug Abuse Patient Records regulations: The Federal rules restrict any use of the information to criminally investigate or prosecute any alcohol or drug abuse patient.[facility] the event this information is protected by the Federal Confidentiality of Alcohol and Drug Abuse Patient Records regulations: The Federal rules restrict any use of the information to criminally investigate or prosecute any alcohol or drug abuse patient.[facility] the event this information is protected by the Federal Confidentiality of Alcohol and Drug Abuse Patient Records regulations: The Federal rules restrict any use of the information to criminally investigate or prosecute any alcohol or drug abuse patient.[facility] the event this information is protected by the Federal Confidentiality of Alcohol and Drug Abuse Patient Records regulations: The Federal rules restrict any use of the information to criminally investigate or prosecute any alcohol or drug abuse patient.[facility] the event this information is protected by the Federal Confidentiality of Alcohol and Drug Abuse Patient Records regulations: The Federal rules restrict any use of the information to criminally investigate or prosecute any alcohol or drug abuse patient.[facility] the event this information is protected by the Federal Confidentiality of Alcohol and Drug Abuse Patient Records regulations: The Federal rules restrict any use of the information to criminally investigate or prosecute any alcohol or drug abuse patient.[facility] the event this information is protected by the Federal Confidentiality of Alcohol and Drug Abuse Patient Records regulations: The Federal rules restrict any use of the information to criminally investigate or prosecute any alcohol or drug abuse patient.[facility] the event this information is protected by the Federal Confidentiality of Alcohol and Drug Abuse Patient Records regulations: The Federal rules restrict any use of the information to criminally investigate or prosecute any alcohol or drug abuse patient.[facility] the event this information is protected by the Federal Confidentiality of Alcohol and Drug Abuse Patient Records regulations: The Federal rules restrict any use of the information to criminally investigate or prosecute any alcohol or drug abuse patient.[facility] the event this information is protected by the Federal Confidentiality of Alcohol and Drug Abuse Patient Records regulations: The Federal rules restrict any use of the information to criminally investigate or prosecute any alcohol or drug abuse patient.[facility] the event this information is protected by the Federal Confidentiality of Alcohol and Drug Abuse Patient Records regulations: The Federal rules restrict any use of the information to criminally investigate or prosecute any alcohol or drug abuse patient.[facility] the event this information is protected by the Federal Confidentiality of Alcohol and Drug Abuse Patient Records regulations: The Federal rules restrict any use of the information to criminally investigate or prosecute any alcohol or drug abuse patient.[facility] the event this information is protected by the Federal Confidentiality of Alcohol and Drug Abuse Patient Records regulations: The Federal rules restrict any use of the information to criminally investigate or prosecute any alcohol or drug abuse patient.[facility] the event this information is protected by the Federal Confidentiality of Alcohol and Drug Abuse Patient Records regulations: The Federal rules restrict any use of the information to criminally investigate or prosecute any alcohol or drug abuse patient.[facility] the event this information is protected by the Federal Confidentiality of Alcohol and Drug Abuse Patient Records regulations: The Federal rules restrict any use of the information to criminally investigate or prosecute any alcohol or drug abuse patient.[facility] Reason for Visit (unrecogniz ed section and content) Reason Comments Call Request to Dr. Waters Reason Comments Results Reason Comments verbal orders Reason Comments [facility] HH -increased BP Reason Comments [facility] OT- Increased BP Updated OT plan of care Reason Comments Refill Request Reason Comments Established NI Patient Follow up Reason Comments update Reason Comments Recheck 3 months Reason Comments home health calling for verbal order Reason Comments PT on Hold Reason Comments Orders for Autonomic Consult Reason Comments New Patient Specialty Diagnoses / Procedures Referred By Contac t Referred To Contact Hematology Diagnoses Anemia of chronic disease Procedures CONSULT TO HEMATOLOGY OFFICE/OUTPATIENT NEW HIGH MDM 60-74 MINUTES Jasson Bright MD [address] [place] [address] Referral ID Status Reason Start Date Expiration Date V isits Requested Visits Authorized [id number] Closed PCP Requested Referral 02/18/2022 02/18/2023 1 1 Reason Comments Results Medication Problem Reason Comments Appointment SPOKE WITH DAUGHTER 04/21 APPT CX / DID NOT WANT TO R/S AT THIS TIME. Reason Comments Established Patient Ingrown Toenail Nail Care Reason Comments Follow Up 2 week follow up total nail avulsion lef t hallux Specialty Diagnoses / Procedures Referred By Hansel t Referred To Contact Podiatry / PODIATRY Diagnoses Follow-up exam 2 week follow up nail removal Procedures OFFICE/OUTPATIENT ESTABLISHED HIGH MDM 40-54 MIN CHAN EST PODI DIAB Blake Brown [address] [facility] [place] [address] Blake Brown [address] [facility] [place] [address] Referral ID Status Reason Start Date Expiration Date Visits Re quested Visits Authorized [id number] Closed 05/24/2022 09/30/2022 1 1 Reason Onset Date Comments ER F/U [facility] ER follow up 06/25 dx: fall; received 3 silvestre on back of head Cough Started a couple weeks ago; productive, sounds wet drooling Better after sto pping florinef Back Pain X1 yr Immunizations 07/04/2022 Flu vaccination Reason Comments Recheck Reason Comments Patient Update Reason Onset Date Comments Refill Request 09/03/2022 Reason Comments Established Patient Follow Up nail care nail care Reason Comments Ear Pain Pt reported (LT) ear pain, cough, x4 days. Reason Comments Derm Problem Possible stye right eye lid Reason Comments Medicare Wellness Exam Specialty Diagnoses / Procedures Referred By Hansel t Referred To Contact Family Medicine / FAMILY MEDICINE Diagnoses Encounter for Medicare annual wellness exam Medicare wellness Procedures OFFICE/OUTPATIENT ESTABLISHED HIGH MDM 40-54 MIN 4C EST WELL Thao Menchaca PA-C [address] [place] [address] Jasson Bright MD [address] [place] [address] Referral ID Status Reason Start Date Expiration Date V isits Requested Visits Authorized [id number] Authorized 01/17/2023 09/30/2023 99 99 Reason Onset Date Comments Refill Request 03/01/2023 Reason Comments Requesting Lab Results Reason Comments Appointment Reason Comments Ingrown Toenail Established Patient Pain Diabetic Foot Care Specialty Diagnoses / Procedures Referred By Contac t Referred To Contact Podiatry / PODIATRY Diagnoses Infected abrasion of great toe infected Great toe Procedures CHAN EST PODI AmmyBlake thurston [address] [place] [address] Blake Brown [address] [place] [address] Referral ID Status Reason Start Date Expiration Date Visits Re quested Visits Authorized [id number] Closed 05/15/2023 09/30/2023 1 1 Reason Comments Forms Reason Comments Spirometry Specialty Diagnoses / Procedures Referred By Contac t Referred To Contact [facility] Diagnoses Hypoxia Procedures OXIMETRY WITH AMBULATION NONINVASIVE EAR/PULSE OXIMETRY MULTIPLE DETER Jasson Bright MD [address] [place] [address] [facility] [address] [place] [address] Referral ID Status Reason Start Date Expiration Date V isits Requested Visits Authorized [id number] Closed Auto-Generate d Referral 05/17/2023 09/30/2023 1 1 Reason Comments Outside Cardiology Care Teams (unrecognized sec tion and content) Business Support Professional Relationship Specialty Start Date End Date Jasson Bright MD [address] [place], [place] [id number] PCP - General Family Practice 02/02/21 Business Support Professional Relationship Specialty Start Date End Date Jasson Bright MD [address] [place], [place] [id number] [phone] PCP - General Family Practice 02/02/21 Business Support Professional Relationship Specialty Start Date End Date Jasson Bright MD [address] [place], [place] [id number] [phone] PCP - General Family Practice 02/02/21 Business Support Professional Relationship Specialty Start Date End Date Jasson Bright MD [address] [facility] [place] [address] PCP - General Family Practice 02/02/21 Business Support Professional Relationship Specialty Start Date End Date Jasson Bright MD [facility] [place] [address] PCP - General Family Practice 02/02/21 Business Support Professional Relationship Specialty Start Date End Date Jasson Bright MD [address] [place] [address], [place] [address] PCP - General Family Practice 02/02/21 Business Support Professional Relationship Specialty Start Date End Date Jasson Bright MD [address] [place] [address], [place] [address] PCP - General Family Practice 02/02/21 Business Support Professional Relationship Specialty Start Date End Date Jasson Bright MD [address] [place] [address], [place] [address] PCP - General Family Practice 02/02/21 Business Support Professional Relationship Specialty Start Date End Date Jasson Bright MD [address] [place] [address], [place] [address] PCP - General Family Practice 02/02/21 Business Support Professional Relationship Specialty Start Date End Date Jasson Bright MD [address] [place] [address], [place] [address] PCP - General Family Practice 02/02/21 Business Support Professional Relationship Specialty Start Date End Date Jasson Bright MD [address] [place] [address], [place] [address] PCP - General Family Practice 02/02/21 Business Support Professional Relationship Specialty Start Date End Date Jasson Bright MD [address] [place] [address], [place] [address] PCP - General Family Practice 02/02/21 Business Support Professional Relationship Specialty Start Date End Date Jasson Bright MD [address] [facility] [place] [address] PCP - General Family Medicine 02/02/21 Business Support Professional Relationship Specialty Start Date End Date Jasson Bright MD [facility] [place] [address] PCP - General Family Medicine 02/02/21 Business Support Professional Relationship Specialty Start Date End Date Jasson Bright MD [address] [place] [address], [place] [address] PCP - General Family Medicine 02/02/21 Business Support Professional Relationship Specialty Start Date End Date Jasson Bright MD [address] [place] [address], [place] [address] PCP - General Family Medicine 02/02/21 Business Support Professional Relationship Specialty Start Date End Date Jasson Bright MD [address] [place] [address], [place] [address] PCP - General Family Medicine 02/02/21 Business Support Professional Relationship Specialty Start Date End Date Jasson Bright MD [address] [place] [address], [place] [address] PCP - General Family Medicine 02/02/21 Business Support Professional Relationship Specialty Start Date End Date Jasson Bright MD [address] [place] [address], [place] [address] PCP - General Family Medicine 02/02/21 Business Support Professional Relationship Specialty Start Date End Date Jasson Bright MD [address] [place] [address], [place] [address] PCP - General Family Medicine 02/02/21 Business Support Professional Relationship Specialty Start Date End Date Jasson Bright MD [address] [place] [address] PCP - General Family Medicine 02/02/21 Business Support Professional Relationship Specialty Start Date End Date Jasson Bright MD [address] [place] [address] PCP - General Family Medicine 02/02/21 Business Support Professional Relationship Specialty Start Date End Date Jasson Bright MD [address] [place] [address] PCP - General Family Medicine 02/02/21 Business Support Professional Relationship Specialty Start Date End Date Jasson Bright MD [address] [place] [address] PCP - General Family Medicine 02/02/21 Business Support Professional Relationship Specialty Start Date End Date Jasson Bright MD [address] [place] [address] PCP - General Family Medicine 02/02/21 Business Support Professional Relationship Specialty Start Date End Date Jasson Bright MD [address] [place] [address] PCP - General Family Medicine 02/02/21 Business Support Professional Relationship Specialty Start Date End Date Jasson Bright MD [address] [place] [address] PCP - General Family Medicine 02/02/21 FOR RECORDS PERTAINING TO PATIENTS WHO ARE OR HAVE BEEN ENROLLED IN A CHEMICAL DEPENDENCY/SUBSTANCEABUSE PROGRAM, SOME INFORMATION MAY BE OMITTED. This clinical summary was aggregated from multiple sources. Caution should be exercised in using it in the provision of clinical care. This summary normalizes information from multiple sources, and as a consequence, information in this document may materially change the coding, format and clinical context of patient data. In addition, data may be omitted in some cases. CLINICAL DECISIONS SHOULD BE BASED ON THE PRIMARY CLINICAL RECORDS. [facility]. provides no warranty or guarantee of the accuracy or completeness of information in this document.
[2023-10-01 19:12] LABS: Absolute Lymphocyte Count 0.93 X10^3/uL (0.83-4.51); Absolute Neutrophil Count 5.3 X10^3/uL (2.0-7.7); Basophil# 0.04 X10^3/uL; Basophil% 0.5 % (0-1); Eosinophil# 0.31 X10^3/uL; Eosinophils% 4.2 % (0-5); Hemoglobin 9.4 g/dL (13.0-16.5); Lymphocyte # 0.93 X10^3/ul (0.83-4.51); Lymphocyte % 12.7 % (19-41); Mean Corp Hgb Conc 32.4 g/dL (32-36); Mean Corpuscular Volume 98.6 fL (80-94); Mean Platelet Vol. 10.1 fl (6.2-12.0); Monocyte# 0.72 X10^3/uL; Monocyte% 9.8 % (0-10); NRBC Flagged by Analyzer 0 % (0-5); Neutrophil % 72.5 % (47-70); Platelet Count 165 K/mm3 (150-450); RBC Distribution Width CV 14.3 % (11.6-14.6); RBC Distribution Width SD 51.6 fl (35.1-43.9); Red Blood Count 2.94 M/mm3 (4.6-6.2); White Blood Count 7.3 K/mm3 (4.4-11.0)
[2023-10-01 19:18] LABS: Anion Gap 3 (5-15); BUN 32 mg/dL (7-18); BUN/Creat Ratio 23.7 RATIO (10-20); Calcium,Total 8.7 mg/dL (8.5-10.1); Chloride 110 mmol/L (98-107); Creatinine, Serum 1.35 mg/dL (0.70-1.30); EST Glomerular Filtration Rate 54 mL/min (>60); Est Glom Filt Rate - Afr Amer 66 mL/min (>60); Estimated Creatinine Clearance 44.37 ml/min; Glucose 104 mg/dL (74-106); Potassium 4.4 mmol/L (3.5-5.1); Sodium Level 140 mmol/L (136-145)
--- NOTE | 2023-10-01 19:20 | RAD_ITS ---
INDICATION: cough EXAMINATION/TECHNIQUE: X-RAY - XR Chest 2 Views COMPARISON: 01/05/2022 FINDINGS: LIFE-SUPPORT AND LINES: 1. None HEART AND VESSELS: The cardiac silhouette, pulmonary vasculature have normal appearance. No evidence of congestive failure. LUNGS AND PLEURAL SPACES: Lungs are clear. No focal infiltrate, consolidation or effusions. No evidence of pneumothorax. No pulmonary mass is noted. MEDIASTINUM AND HILAR REGIONS: No masses adenopathy noted. No areas of calcification. Visualized upper airway is normal in position. BONY ELEMENTS: No acute bony changes noted. RAD/Chest PA and Lateral IMPRESSION: 1. No evidence of acute cardiopulmonary process Electronically Signed: Diogo Whipple MD at 20:37 EST ,
--- NOTE | 2023-10-01 19:48 | ED.RN ---
Patient 2 assist to stand and use urinal. C/O right leg weakness. Dr. Goodwin notified.
[2023-10-01 19:49] LABS: Bacteria 0 SEEN /hpf (None Seen); Color, Urine Yellow (Yellow); Glucose, Dipstick Normal (Normal); Ketone-Dipstick Negative (Negative); Leukocyte Esterase-Dipstick Negative /ul (Negative); Mucous, Urine 0 SEEN /hpf (<or=2+); Nitrite-Dipstick Negative (Negative); Occult Blood-Urine 10 /ul (Negative); Protein-Dipstick 30 mg/dl (Negative); Red Blood Cells-Urine 0 SEEN /hpf (0-5); Specific Gravity, Urine 1.015 (1.002-1.030); Squamous Epithelial Cells - UA 0 SEEN /hpf (0-5); Urine Bilirubin Dipstick Negative (Negative); Urine Clarity Clear (Clear); Urine Urobilinogen Normal (Normal)
[2023-10-01 19:59] LABS: White Blood Cells 0-5 SEEN /hpf (0-5)
[2023-10-01 20:31] VITALS: BP 154/74; PULSE 56; RESP 15
[2023-10-01] MEDS: Ipratropium/Albuterol Sulfate 3 ML AMPUL.NEB INHALATION (20:41)
[2023-10-01 20:43] VITALS: PULSE 58; RESP 16
--- NOTE | 2023-10-01 21:01 | PCM.HP.STD ---
[facility] - General General Date of Admission: 10/01/23 Date of Service: 10/01/23 Chief Complaint: Generalized weakness and fall HPI Narrative KERRY VALDES, is a 78 M with a past medical history of essential hypertension, hyperlipidemia, diabetes mellitus type 2; of unknown control, obesity; with BMI of 32.8 this admission, history of tobacco abuse; with subsequent COPD on 2L [place] home oxygen, history of atrial fibrillation, history of CHF, history of coronary artery disease; status post stent (2020), Parkinson's disease; with the patient using a walker to mobilize for the past 4 years, generalized anxiety, GERD, osteoarthritis with degenerative disc disease, history of syncope; attributed to orthostatic hypotension and history of vertigo who presents to [facility] ER complaining of generalized weakness and fall. Mr. Valdes reports his symptoms began approximately 4 weeks prior to admission with intermittent cough and mild shortness of breath due to a suspected upper respiratory infection. Then earlier this evening he fell asleep while watching TV while sitting at his kitchen table resulting in him falling down onto the floor. He states that he woke up right before he hit the ground blocking his head from directly hitting the ground. He was then unable to get up so he called his daughter who then called EMS. When EMS arrived they tried to stand him up but he was too weak so they brought him in for further evaluation or treatment. He denies associated fever, chills, chest pain, nausea, vomiting, diarrhea, dysuria or urinary frequency. He also denies any pain from the fall. In the ER his lab tests and imaging were unremarkable but he was noted to have mild wheezing so he was then diagnosed with a mild acute exacerbation of COPD after recent URI complicated by generalized weakness with ambulatory dysfunction the setting of a recent fall and he was then admitted to the general medical floor under observation status for a stay that is expected to be less than 48 hours. [facility] Medical History Acute respiratory failure with hypoxia Altered mental status Anemia Anemia Anxiety Atherosclerotic heart disease of minto coronary artery without angina pectoris Atrial fibrillation Back pain Chest pain CHF (congestive heart failure) Congestive heart failure (CHF) COPD exacerbation Coronary artery disease Degenerative disc disease, lumbar Degenerative disk disease Delirium Diabetes Essential hypertension Former smoker GERD (gastroesophageal reflux disease) Hallucinations HLD (hyperlipidemia) Hypertension Hypertensive urgency Hypoxia Lower extremity edema Macrocytic anemia On home oxygen therapy Orthostatic hypotension Parkinson's disease Presence of stent in coronary artery (~05/12/21) Short-term memory loss Syncope Vertigo Home Medications pantoprazole 40 mg tablet,delayed release 40 mg PO DAILY PRN GERD 10/25/21 [History Last Taken Unknown] amlodipine 10 mg tablet 10 mg PO DAILY 03/26/23 [History Last Taken Unknown] aspirin 81 mg tablet,delayed release (Bertin Low Dose Aspirin) 81 mg PO DAILY HEART HEALTH 08/16/23 [History Last Taken Unknown] atorvastatin 20 mg tablet 20 mg PO QHS #90 tabs 08/16/23 [Rx Last Taken Unknown] lisinopril 10 mg tablet 20 mg PO BID 08/16/23 [History Last Taken Unknown] Allergy/AdvReac Type Severity Reaction Status Date / Time No Known Allergies Allergy Verified 08/16/23 14:09 Surgical History History of coronary artery stent placement Presence of coronary angioplasty implant and graft (~05/12/21) Social History household members: spouse Smoking Status: Former smoker alcohol intake: never substance use type: does not use ROS ROS Narrative Review of systems: Constitutional: Patient denies fevers or chills. Eyes: Patient denies visual changes or discharge from eyes. ENT: Patient denies sore throat, ear pain or runny nose. Cardiovascular: Patient denies chest pain, palpitations or lower extremity edema. Respiratory: Patient admits to intermittent cough with intermittent wheezing typical of his COPD. Gastrointestinal: Patient denies abdominal pain, nausea, vomiting, diarrhea or constipation. Genitourinary: Patient denies dysuria, hematuria or urinary frequency. Musculoskeletal: Patient denies neck pain or back pain. Integumentary: Patient denies rash or wounds. Neurologic: Patient admits to generalized weakness but denies headaches or paresthesias. Hematologic: Patient denies easy bleeding or easy bruisability. Allergic: Patient denies lip swelling, tongue swelling or urticaria. 14 point review of systems otherwise negative except for positives noted above in HPI. Vital Signs Vital Signs Vital Signs: 10/01/23 18:29 10/01/23 20:31 10/01/23 20:43 Temperature 97.6 F L Temperature Source Oral Pulse Rate 54 L 56 L 58 L Respiratory Rate 20 H 15 16 Respiratory Pattern Normal Blood Pressure 150/55 H 154/74 H Blood Pressure Mean 86 100 Pulse Ox 97 Oxygen Delivery Method Room Air Weight Weight: 222 lb Body Mass Index (BMI) 32.8 Physical Exam Const alert, oriented x3, no apparent distress and average body habitus General Appearance: cooperative HEENT normocephalic, head/scalp atraumatic, hearing grossly normal bilaterally and moist oral mucous membranes Eyes PERRL, EOMs intact bilaterally and conjunctivae normal Neck no lymphadenopathy and supple Resp normal respiratory effort, no retractions and no use of accessory muscles Resp Narrative: Patient has mild intermittent expiratory wheezes. Auscultation: wheezes scattered wheezes Cardio regular rate and regular rhythm GI normal to inspection, nondistended, normoactive bowel sounds, soft to palpation, non-tender and non-distended Extremity normal to inspection and full ROM Skin Skin Narrative: Patient has no evidence of rash at this time. Neuro oriented x3, CN's II-XII intact bilaterally, moves all extremities and no focal motor deficits Sensorium / Orientation: awake, alert, oriented to person, oriented to place and oriented to time Speech: speech normal Psych affect normal Results Medical Records Data Attestation: I reviewed the patient's medical records Lab / Micro Data Attestation: I reviewed the patient's lab results. 10/01/23 18:53 10/01/23 18:53 Labs: Laboratory Results - last 24 hr 10/01/23 18:53: WBC 7.3, RBC 2.94 L, Hgb 9.4 L, Hct 29.0 L, MCV 98.6 H, MCH 32.0, MCHC 32.4, RDW Std Deviation 51.6 H, RDW Coeff of Sophie 14.3, Plt Count 165, MPV 10.1, Immature Gran % (Auto) 0.300, Neut % (Auto) 72.5 H, Lymph % (Auto) 12.7 L, Alcorn % (Auto) 9.8, Eos % (Auto) 4.2, Baso % (Auto) 0.5, Absolute Neuts (auto) 5.3, Absolute Lymphs (auto) 0.93, Nucleated RBC % 0, Sodium 140, Potassium 4.4, Chloride 110 H, Carbon Dioxide 27.0, Anion Gap 3 L, BUN 32 H, Creatinine 1.35 H, Estim Creat Clear Calc 44.37, Est GFR (MDRD) Af Amer 66, Est GFR (MDRD) Non-Af 54 L, BUN/Creatinine Ratio 23.7 H, Glucose 104, Calcium 8.7 10/01/23 19:40: Urine Color Yellow, Urine Clarity Clear, Urine pH 5.0, Ur Specific Compton 1.015, Urine Protein 30 H, Urine Glucose (UA) Normal, Urine Ketones Negative, Urine Occult Blood 10 H, Urine Nitrite Negative, Urine Bilirubin Negative, Urine Urobilinogen Normal, Ur Leukocyte Esterase Negative, Urine RBC 0 SEEN, Urine WBC 0-5 SEEN, Ur Squamous Epith Cells 0 SEEN, Urine Bacteria 0 SEEN, Urine Mucus 0 SEEN Imagaing Radiology Impression Brain CT 10/01/23 18:44 IMPRESSION: 1. Stable exam. 2. No intracranial evidence of acute traumatic injury. 3. Mild involutional changes. 4. No intracranial mass, hemorrhage or acute territorial infarct. 5. No fractures noted. 6. No radiographically significant sinus disease.. Electronically Signed: Diogo Whipple MD at 20:23 EST Reading Location ID and State: [id number] Tel , Service support , Chest X-Ray 10/01/23 19:20 IMPRESSION: 1. No evidence of acute cardiopulmonary process Electronically Signed: Diogo Whipple MD at 20:37 EST Reading Location ID and State: [id number] Tel , Service support , Assessment & Plan Assessment/Plan (1) COPD with acute exacerbation: (2) Weakness: (3) URI (upper respiratory infection): QUALIFIERS: URI type: unspecified URI Qualified Code(s): J06.9 - Acute upper respiratory infection, unspecified (4) Fatigue: QUALIFIERS: Fatigue type: unspecified Qualified Code(s): R53.83 - Other fatigue PLAN: Plan 1. Mild acute exacerbation of COPD complicated by generalized weakness with ambulatory dysfunction and fatigue in the setting of a recent upper respiratory infection and subsequent fall after falling asleep at his kitchen table - Admit to general medical floor under observation status. He is scheduled and as needed nebulizers plus start IV Solu-Medrol with anticipated quick taper to prednisone. PT/OT and case management to consult and treat on rounds in the a.m. for further recommendations as patient may require subacute rehabilitation with help appreciated in advance. 2. History of Parkinson's disease; with the patient using a walker to mobilize for the past 4 years with a history of vertigo due to orthostatic hypotension and vertigo complicating #1 - Noted. Continue home medications as previous. 3. Osteoarthritis with degenerative disc disease compounding #1 & #2 - Resume supportive care. Give Tylenol prn. 4. Essential hypertension - Continue home medications plus give as needed IV hydralazine for systolic blood pressure greater than 160 mmHg. 5. Hyperlipidemia - Resume statin. 6. Diabetes mellitus type 2; of unknown control - ADA diet. FSBS q. AC/HS plus SSI. 7. Obesity; with BMI of 32.8 this admission - Weight loss will be recommended. 8. History of atrial fibrillation - Noted with patient currently in NSR. 9. History of CHF - Stable. 10. History of coronary artery disease; status post stent (2020) - Noted. 11. Generalized anxiety - Resume home regimen as previous. 12. GERD - Continue PPI. 13. DVT prophylaxis - Lovenox 40 mg sq daily plus SCD's. Total time: Approximately 45 minutes. Charges/Coding Visit Charges OBSV E&M: 51486 Observ/hosp same date L1
[2023-10-01 21:08] VITALS: BP 146/62; PULSE 62; RESP 14; O2SAT 98
--- OUTSIDE RECORDS SUMMARY | 2023-10-01 21:40 | XMS RPT_ITS | CCD ---
Author Name Unknown Address [address] [place] [address] Organization [facility] Care Team Providers Care 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 Name Role Phone Jasson Bright MD Primary Care Provider JASSON BRIGHT Attending Unavailable THAO MENCHACA Referring [...] Care Unavailable JASSON BRIGHT Referring Unavailable JASSON BRGIHT Primary Care Unavailable JASSON BRIGHT Attending Unavailable JASSON BRIGHT Primary Care Unavailable JASSON BRIGHT Referring Unavailable JASSON BRIGHT Primary Care Unavailable Allergies Allergy Classification Reported Allergen(s) Allergy Type Date of Onset Reaction(s) Facility (20 sources) Cat; Translations: [CATS] Propensity to adverse reactions 06-25-[address] [facility] Work Phone: Medications Current Medications Medication Drug [...] Coronary atherosclerosis; Translations: [Atherosclerotic heart disease of [place] coronary artery without angina pectoris] Onset: 05-19-2021 [...] (20 sources) Patient encounter status; Translations: [Other alf (current) drug therapy] Onset: 02-17-2022 Episodic Other aftercare (1 source) Other blade aligner (current) drug therapy; Translations: [Medication management] Onset: [...] 74 mm[Hg] Jasson Bright MD Work Phone: [facility] 02-01-2023 14:56-0400 Systolic blood pressure 131 mm[Hg] Jasson Bright MD Work Phone: [facility] 02-01-2023 14:17-0400 Body weight 104.78 kg Jasson Bright MD Work Phone: [facility] 01-08-2023 10:27-0400 Body temperature 97.59 [degF] Thao WHALEY-C Work Phone: [facility] 01-08-2023 10:27-0400 Body weight 106.59 kg Thao WHALEY-C Work Phone: [facility] 01-08-2023 10:27-0400 Diastolic blood pressure 76 mm[Hg] Thao WHALEY-C Work Phone: [facility] 01-08-2023 10:27-0400 Heart rate 56 /min Thao Menchaca PA-C Work Phone: [facility] 01-08-2023 10:27-0400 Respiratory rate 18 /min Thao Menchaca PA-C Work Phone: [facility] 01-08-2023 10:27-0400 Systolic blood pressure 150 mm[Hg] Thao Menchaca PA-C Work Phone: [facility] 09-29-2022 15:29-0500 Body temperature 98.1 [degF] Jessie Jacques APRN.STATEMENT CLERK Work Phone: [facility] 09-29-2022 15:29-0500 Body weight 102.69 kg Jessie Jacques APRN.STATEMENT CLERK Work Phone: [facility] 09-29-2022 15:29-0500 Diastolic blood pressure 80 mm[Hg] Jessie Jacques APRN.STATEMENT CLERK Work Phone: [facility] 09-29-2022 15:29-0500 Heart rate 67 /min Jessie Jacques APRN.STATEMENT CLERK Work Phone: [facility] 09-29-2022 15:29-0500 Respiratory rate 16 /min Jessie Jacques APRN.STATEMENT CLERK Work Phone: [facility] 09-29-2022 15:29-0500 SaO2% (BldA) [Mass fraction] 99 % Jessie Jacques APRN.STATEMENT CLERK Work Phone: [facility] 09-29-2022 15:29-0500 Systolic blood pressure 178 mm[Hg] Jessie Jacques APRN.STATEMENT CLERK Work Phone: [facility] 07-13-2022 12:31-0400 Body weight 97.07 kg Thao Menchaca PA-C Work Phone: [facility] 07-13-2022 12:31-0400 Diastolic blood pressure 70 mm[Hg] Thao Menchaca PA-C Work Phone: [facility] 07-13-2022 12:31-0400 Heart rate 62 /min Thao Menchaca PA-C Work Phone: [facility] 07-13-2022 12:31-0400 Respiratory rate 16 /min Thao Menchaca PA-C Work Phone: [facility] 07-13-2022 12:31-0400 Systolic blood pressure 136 mm[Hg] Thao Menchaca PA-C Work Phone: [facility] 07-04-2022 13:06-0400 Diastolic blood pressure 66 mm[Hg] Charlene Haagen MEDICAL INSURANCE VERIFIER.STATEMENT CLERK Work Phone: [facility] 07-04-2022 13:06-0400 Heart rate 65 /min Charlene Haagen MEDICAL INSURANCE VERIFIER.STATEMENT CLERK Work Phone: [facility] 07-04-2022 13:06-0400 Respiratory rate 18 /min Charlene Haagen MEDICAL INSURANCE VERIFIER.STATEMENT CLERK Work Phone: [facility] 07-04-2022 13:06-0400 SaO2% (BldA) [Mass fraction] 97 % Charlene Haagen MEDICAL INSURANCE VERIFIER.STATEMENT CLERK Work Phone: [facility] 07-04-2022 13:06-0400 Systolic blood pressure 128 mm[Hg] Charlene Haagen MEDICAL INSURANCE VERIFIER.STATEMENT CLERK Work Phone: [facility] 03-06-2022 14:13-0400 Body height 171 cm Yan Vargas MD Work Phone: [facility] 03-06-2022 14:13-0400 Body temperature 97.11 [degF] Yan Vargas MD Work Phone: [facility] 03-06-2022 14:13-0400 Body weight 97.07 kg Yan Vargas MD Work Phone: [facility] 03-06-2022 14:13-0400 Diastolic blood pressure 79 mm[Hg] Yan Vargas MD Work Phone: [facility] 03-06-2022 14:13-0400 Heart rate 55 /min Yan Vargas MD Work Phone: [facility] 03-06-2022 14:13-0400 SaO2% (BldA) [Mass fraction] 100 % Yan Vargas MD Work Phone: [facility] 03-06-2022 14:13-0400 Systolic blood pressure 199 mm[Hg] Yan Vargas MD Work Phone: [facility] 02-17-2022 13:12-0400 Diastolic blood pressure 72 mm[Hg] Jasson Bright MD Work Phone: [facility] 02-17-2022 13:12-0400 Heart rate 58 /min Jasson Bright MD Work Phone: [facility] 02-17-2022 13:12-0400 Systolic blood pressure 203 mm[Hg] Jasson Bright MD Work Phone: [facility] 02-17-2022 11:59-0400 Body weight 99.79 kg Jasson Bright MD Work Phone: [facility] 02-17-2022 11:59-0400 Respiratory rate 12 /min Jasson Bright MD Work Phone: [facility] 02-09-2022 15:26-0400 Body temperature 97.11 [degF] Magnolia Dahlhausen MEDICAL INSURANCE VERIFIER.STATEMENT CLERK Work Phone: [facility] 02-09-2022 15:26-0400 Body weight 119.75 kg Magnolia Dahlhausen MEDICAL INSURANCE VERIFIER.STATEMENT CLERK Work Phone: [facility] 02-09-2022 15:26-0400 Diastolic blood pressure 68 mm[Hg] Magnolia Dahlhausen MEDICAL INSURANCE VERIFIER.STATEMENT CLERK Work Phone: [facility] 02-09-2022 15:26-0400 Heart rate 59 /min Magnolia Dahlhausen MEDICAL INSURANCE VERIFIER.STATEMENT CLERK Work Phone: [facility] 02-09-2022 15:26-0400 Respiratory rate 18 /min Magnolia Dahlhausen MEDICAL INSURANCE VERIFIER.STATEMENT CLERK Work Phone: [facility] 02-09-2022 15:26-0400 SaO2% (BldA) [Mass fraction] 99 % Magnolia Dahlhausen MEDICAL INSURANCE VERIFIER.STATEMENT CLERK Work Phone: [facility] 02-09-2022 15:26-0400 Systolic blood pressure 160 mm[Hg] Magnolia Dahlhausen MEDICAL INSURANCE VERIFIER.STATEMENT CLERK Work Phone: [facility] Encounters Encounter Date Encounter Type Care Provider Facility Start: 08-16-2023 Chart abstracting Jasson monge MD Work Phone: [facility] Procedures Date Procedure Procedure Detail Performing Clinician Start: 05-28-2023 Noninvasive ear/puls e oximetry multiple deter Jasson Bright MD Work Phone: Start: 07-04-2022 INFLUENZA SEASONAL QUADRIVALENT HIGH DOSE AGE 65+ Charlene Wayne APRN.STATEMENT CLERK Work Phone: Start: 05-22-2022 Cul bact xcpt urine blood/stool aerobic isol Blake Brown Work Phone: Start: 02-17-2022 Hemoglobin A1c/Hemoglobin.total in Blood Jasson Bright MD Work Phone: Start: 01-31-2021 Adult depression scr eening assessment Jasson Bright MD Work Phone: Plan of Treatment Date Care Activity Detail Author Start: 01-10-[address] [facility] Start: 02-17-2024 ANNUAL PCP TEAM EXTRUSION BENDER PALLAVI DISEASE VISIT ANNUAL PCP TEAM CHRONIC DISEASE VISIT [facility] Start: 02-03-2024 Hepatitis B screening URINE AL BUMIN:CREATININE RATIO [facility] Start: 02-02-2024 ANNUAL PCP TEAM EXTRUSION BENDER PALLAVI DISEASE VISIT ANNUAL PCP TEAM CHRONIC DISEASE VISIT [facility] Start: 02-02-2024 BP CONTROLLED (<130/80) BP CONTROLLE D (<130/80) [facility] Start: 02-02-2024 COVID-19 VACCINE (#1) COVID-19 VACCI NE (#1) [facility] Immunizations Immunization Date Immunization Notes Care Provider Fa cility 07-04-2022 influenza, high-dose , quadrivalent vaccine (FLUZONE HIGH DOSE QUADRIVALENT) Charlene Wayne APRN.STATEMENT CLERK Work Phone: [facility] 07-04-2022 influenza virus vacc ine, unspecified formulation Jasson Bright MD Work Phone: [facility] 07-23-2020 influenza, high-dose , quadrivalent vaccine (FLUZONE HIGH DOSE QUADRIVALENT) Jasson Bright MD Work Phone: [facility] 08-14-2019 influenza, high dose seasonal, preservative-free Jasson Bright MD Work Phone: [facility] 01-10-2019 tetanus and diphther ia toxoids, adsorbed, preservative free, for adult use (5 Lf of tetanus toxoid and 2 Lf of diphtheria toxoid) Jasson Bright MD Work Phone: [facility] 06-14-2018 influenza, injectabl e, quadrivalent, contains preservative Jasson Bright MD Work Phone: [facility] 07-02-2017 influenza, high dose seasonal, preservative-free Jasson Bright MD Work Phone: [facility] 07-25-2016 influenza, high dose seasonal, preservative-free Jasson Bright MD Work Phone: [facility] 06-29-2015 influenza, high dose seasonal, preservative-free Jasson Bright MD Work Phone: [facility] 04-27-2015 pneumococcal conjuga te vaccine, 13 valent Jasson Bright MD Work Phone: [facility] 07-10-2014 influenza, seasonal, injectable Jasson Bright MD Work Phone: [facility] 07-01-2014 influenza, high dose seasonal, preservative-free Jasson Bright MD Work Phone: [facility] 07-10-2013 influenza virus vacc ine, unspecified formulation Jasson Bright MD Work Phone: [facility] 06-29-2012 influenza virus vacc ine, unspecified formulation Jasson Bright MD Work Phone: [facility] 07-18-2011 influenza virus vacc ine, unspecified formulation Jasson Bright MD Work Phone: [facility] 09-01-2009 pneumococcal polysaccharide vaccine, 23 valent Jasson Bright MD Work Phone: [facility] Work Phone: 10-23-2008 tetanus toxoid, redu carlee diphtheria toxoid, and acellular pertussis vaccine, adsorbed Jasson Bright MD Work Phone: [facility] 08-21-2007 influenza virus vacc ine, whole virus Jasson Bright MD Work Phone: [facility] 07-21-2005 influenza virus vacc ine, whole virus Jasson Bright MD Work Phone: [facility] Work Phone: 09-05-2000 diphtheria and tetan us toxoids, adsorbed for pediatric use Jasson Bright MD Work Phone: [facility] Work Phone: Payers Date Payer Category Payer Medicare [employer] THP [facility] [id number] 2014-Present [id number] [place] [address] [facility] [id number] 2014 Medicare [employer] THP [facility] O [id number] 2014-Present [phone] [place] [address] [facility] [id number] 2014 Unknown [id number] Social History Date Type Detail Facility Start: 11-10-2021 End: 06-07-2022 Tobacco smoking status ARIS Smokes tobacco daily [facility] End: 01-18-2023 History of tobacco use Cigarette Smoker [facility] Start: 11-10-2021 End: 02-01-2023 Cigarettes smoked current (pack per day) - Reported 2 [facility] Start: 11-10-2021 End: 02-01-2023 Tobacco use and exposure Smokeless tobacco non-user [facility] Start: 12-19-2021 End: 05-15-2023 Alcohol intake Current non-drinker of alcohol (finding) [facility] Start: 01-31-2021 End: 01-04-2023 History SDOH Alcohol Frequency 1 [facility] Start: 01-31-2021 End: 01-04-2023 History SDOH Social Connections Phone 5 [facility] Start: 01-31-2021 End: 01-04-2023 History SDOH Social Connections Membership 2 [facility] Start: 01-31-2021 History SDOH Social Connections Living 3 [facility] Start: 11-10-2021 End: 06-07-2022 Tobacco Comment now smokes about 1/[address] [facility] Start: 1945 Sex Assigned At Male [facility] Start: 12-25-2021 End: 06-07-2022 Exposure to SARS-CoV-2 (event) Not sure [facility] Start: 02-01-2023 Tobacco smoking stat us NHIS Ex-smoker [facility] End: 01-18-2023 History of tobacco use Current smoker [facility] Start: 01-04-2023 History SDOH Alcohol Std Drinks 0 [facility] Start: 01-04-2023 End: 02-01-2023 Social connection and isolation panel [facility] In a typical week, h ow many times do you talk on the telephone with family, friends, or neighbors? Patient refused [facility] Are you now , , , , never or living with a partner? Refused [facility] How often to you hav e a drink containing alcohol? Never [facility] (I/We) worried aggie er (my/our) food would run out before (I/we) got money to buy more. Never true [facility] In the past 12 month s, was there a time when you were not able to pay the mortgage or rent on time? No [facility] Start: 07-04-2021 Gender identity Identifies as male gender (finding) [facility] Start: 07-04-2021 Sexual orientation Heterosexual (fin nate) [facility] Clinical Notes 08-17-2021 to 08-16-2023 Mary Ann Thomas LPN - 08/16/2023 4:08 PM Kaitlin Yun RPFT - 05/28/2023 11:20 AM Kaitlin Kamara RPFT - 05/28/2023 11:19 AM Blake Olivo - 05/15/2023 1:45 PM EDT Note Date & Type Note Facility 08-16-2023 Note HNO ID: [id number] Author: Mary Ann Thomas LPN Service: ? Author Type: ? Type: Progress Notes Filed: 08/17/2023 9:06 PM Note Text: Scan on 08/16/2023 3:38 PM by Provider, External, PA-C: Consultation - Cardiology [facility] 08-16-2023 History of Presen t illness Narrative Scan on 08/16/2023 3:38 PM by ProviderHerber PA-C: Consultation - Cardiology documented in this encounter [facility] 05-28-2023 Note HNO ID: [id number] Author: Kaitlin Turcios RPFT Service: ? Author [...] patient unable to walk at fast pace [facility] 05-28-2023 Note HNO ID: [id number] Author: Kaitlin Turcios RPFT Service: ? Author Type: Respiratory Therapist Type: Progress Notes Filed: 05/28/2023 11:22 AM Note Text: PULM FUNCTION SMARTBLOCK: Provider: Jasson Bright MD Assisting Tech: aKitlin Turcios RPFT Oximetry - Ambulation: 1 [facility] 05-28-2023 Procedure note Associated Ord er(s): OXIMETRY [...] at fast pace documented in this encounter [facility] 05-28-2023 History of Presen t illness Narrative PULM FUNCTION SMARTBLOCK: Provider: Jasson Bright MD Assisting Tech: Kaitlin Turcios RPFT Oximetry - Ambulation: 1 documented in this encounter [facility] 05-18-2023 Miscellaneous Notes Pt called and is notified of providers results and instructions. Pt voices understanding. 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 No changes in Tx needed. documented in this encounter [facility] 05-17-2023 Miscellaneous Notes Patient is scheduled for test Order placed please contact daughter at number below to help set up. Pt called and is notified of providers message and instructions. Pt voices understanding. Pt would like provider to order walking O2 test. He would like to have daughter Libia Johnson) called to set up the appointment [phone]. Marcella Varner RN In order to be [...] a year ago and was to sent [facility]. Was placed on O2. Patient and patient's daughter indicated that patient no longer needs the oxygen and they have been trying to have [employer] accept it back. [employer] indicated that there is a order and they need a release from the physician. Faxed over paperwork to [facility]. Yuly Jacques MA Papers to be faxed back. I never ordered any O2 for Kerry nor was I aware he even needed it?? Received CMN from [facility] for pt's O2 . Form on pcp's desk for review and signature. Please fax back Attn: Kathy [phone]. Mary Ann Thomas LPN documented in this encounter [facility] 05-15-2023 Note HNO ID: [id number] Author: Blake Brown Service: ? Author Type: [...] complication, without long-term current use of insulin ([facility]) Plan: Patient was seen and evaluated. Nails 1-5 bilateral were debrided in length and thickness. Patient was instructed on the continued importance of diabetic foot care along with proper diet and keeping their blood sugar under control to prevent complications. Patient is to RTC in 3-4 months. Blake Brown DPM [facility] 05-15-2023 Note HNO ID: [id number] Author: Cheyenne Bruce LPN Service: ? Author [...] Patient, Diabetic Foot Care Cheyenne Bruce LPN [facility] 05-15-2023 History of Presen t illness Narrative [...] Objective: Patient presents to clinic ambulating in [facility] Vasc: DP and PT pulses [...] complication, without long-term current use of insulin ([facility]) Plan: Patient was seen and evaluated. Nails [...] Cheyenne Bruce LPN documented in this encounter [facility] 04-18-2023 Miscellaneous Notes Spoke with saranya Reza and they are going to hold off on scheduling at this time and will call us if they change their minds. Daughter returned call and was given message below. She states that she doesn't believe patient wants to see [facility] or follow up with Neurology at this time. Jj requests that a grinder mill operator contact her within the week regarding locations [...] to patient to have scheduled with [facility]. (Pended order, please add dx) Thank you. DASIA Lua documented in this encounter [facility] 03-05-2023 Miscellaneous Notes [facility] faxed STAT request for pt's most recent lab results. Results faxed as requested. Mary Ann Thomas LPN documented in this encounter [facility] 03-01-2023 Miscellaneous Notes Patient phones requesting refills as follows: Requested Prescriptions Pending Prescriptions Disp Refills atorvastatin (LIPITOR) 20 mg tablet 30 tablet 5 Sig: Take 1 tablet by mouth daily at bedtime. For cholesterol. JASON-02/01/23 Labs-02/01/23 NOV-08/06/23 Please review and advise. Senait Taylor LPN documented in this encounter 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 She will contact their office for refills. Mary Ann Thomas LPN Patient has been identified by name and date of : Yes Requested Prescriptions Pending Prescriptions Disp Refills amLODIPine (NORVASC) 5 mg tablet 30 tablet 11 Sig: Take 1 tablet by mouth once daily. Per [facility] lisinopril (ZESTRIL) 10 mg tablet 30 tablet 11 Sig: Take 1 tablet by mouth twice daily. RX INSTRUCTIONS: Patient aware RX will be sent to pharmacy. No need to notify patient. [employer] documented in this encounter [facility] 02-16-2023 Note HNO ID: [id number] Author: Jasson Bright MD Service: ? Author [...] due to lipid rich plaque 05/19/2021 Seeing [facility]: DANISH to Mid RCA and [...] Obesity, Class III, BMI 40-49.9 (morbid obesity) ([facility]) 02/06/2014 Orthostatic hypotension 05/13/2018 Primary malignant neoplasm [...] FLX DX W/COLLJ SPEC WHEN PFRMD [facility]02[facility] years DRUG ELUTING STENT 05/12/2021 [...] 1 tablet by mouth once daily. Per [facility] lisinopril (ZESTRIL, PRINIVIL) 10 mg [...] daily. acetaminophen (TYLEN (more content not included)... [facility] 02-15-2023 Note HNO ID: [id number] Author: Yuly Jacques MA Service: ? Author Type: Press Clippings Cutter And Paster Type: Progress Notes Filed: 02/15/2023 5:51 PM Note Text: Scan on 02/13/2023 8:24 AM by External Provider, PA-C: Consultation - ENT Scan on 02/14/2023 4:33 PM by External Provider, PA-C: Consultation - Cardiology Yuly Jacques MA [facility] 02-05-2023 Miscellaneous Notes Pt notified. Lori Thakkar Ma Let patient know UA, Lipid panel, folate, Mg, prostate lab, A1c, B12, electrolytes, liver and kidney functions were all ok. CBC shows his anemia is improved. documented in this encounter [facility] 02-01-2023 Note HNO ID: [id number] Author: Jasson Bright MD Service: ? Author [...] due to lipid rich plaque 05/19/2021 Seeing [facility]: DANISH to Mid RCA and distal RCA 05/12/2021 Diabetes mellitus type 2, controlled, without complications ([facility]) 05/25/2016 Diastasis recti 05/26/2011 Encounter for Medicare [...] Obesity, Class III, BMI 40-49.9 (morbid obesity) ([facility]) 02/06/2014 Orthostatic hypotension 05/13/2018 Primary malignant neoplasm [...] FLX DX W/COLLJ SPEC WHEN PFRMD 07/02/2018 [facility]repeat 3 years DRUG ELUTING STENT 05/12/2021 [...] See below Jasson (more content not included)... [facility] 02-01-2023 Instructions Jasson Bright MD - 02/01/2023 2:51 PM EDT You have an appointment with the [facility] on February 14 at 3:30 with Neil James QUICK TECHNICIAN documented in this encounter [facility] 02-01-2023 History of Presen t illness Narrative [...] due to lipid rich plaque 05/19/2021 Seeing [facility]: DANISH to Mid RCA and distal RCA 05/12/2021 Diabetes mellitus type 2, controlled, without complications ([facility]) 05/25/2016 Diastasis recti 05/26/2011 Encounter for Medicare [...] Obesity, Class III, BMI 40-49.9 (morbid obesity) ([facility]) 02/06/2014 Orthostatic hypotension 05/13/2018 Primary malignant neoplasm [...] FLX DX W/COLLJ SPEC WHEN PFRMD 07/02/[facility]repeat 3 years DRUG ELUTING STENT 05/12/2021 [...] the time. List of current specialists seen: [facility] Dr. Jarvis (Neuro) End of [...] see brain health. Patient was recently in custodial home and released about three weeks ago. He had a fall on 01/09 and 01/13. On the he was admitted then sent home and then on 01/13 he was admitted again for fall and then transferred to custodial for rehab. Currently has [facility] for custodial and PHYSICAL THERAPY. He did have a [...] due to lipid rich plaque 05/19/2021 Seeing [facility]: DANISH to Mid RCA and distal RCA 05/12/2021 Diabetes mellitus type 2, controlled, without complications ([facility]) 05/25/2016 Diastasis recti 05/26/2011 Essential hypertension, benign [...] FLX DX W/COLLJ SPEC WHEN PFRMD 07/02/2018 [facility]repeat 3 years DRUG ELUTING STENT 05/12/2021 [...] 1 tablet by mouth once daily. Per [facility] lisinopril (ZESTRIL, PRINIVIL) 10 mg [...] which included preparing to see the patient, [id number] patient care, completing clinical documentation, performing a medically appropriate examination, counseling and educating the patient/family/caregiver and ordering medications, tests, or procedures. Jasson Bright MD documented in this encounter [facility] 01-08-2023 Note HNO ID: [id number] Author: Thao Menchaca PA-C Service: ? Author Type: Physician Dietetic Intern Type: Progress Notes Filed: 01/08/2023 11:36 AM [...] due to lipid rich plaque 05/19/2021 Seeing [facility]: DANISH to Mid RCA and distal RCA 05/12/2021 Diabetes mellitus type 2, controlled, without complications ([facility]) 05/25/2016 Diastasis recti 05/26/2011 Essential hypertension, benign 10/23/2008 12/18/2016: Home BP Cuff Validated. Home BP: 155/89 Office BP: 140/88 Ex-smoker 02/02/2021 Smoked for about 50 yrs and quit around age 65. Could smoke up to 2-4 PPD. GERD without esophagitis 10/23/2008 Low folate 08/16/2021 Low serum vitamin B12 08/16/2021 Mixed hyperlipidemia 10/23/2016 Obesity, Class III, BMI 40-49.9 (morbid obesity) ([facility]) 02/06/2014 Orthostatic hypotension 05/13/2018 Primary malignant neoplasm [...] FLX DX W/COLLJ SPEC WHEN PFRMD 07/02/2018 [facility] Bo[facility]repeat 3 years DRUG ELUTING STENT 05/12/2021 [...] 1 tablet by mouth once daily. Per [facility] lisinopril (ZESTRIL, PRINIVIL) 10 mg [...] Vaping Use Va (more content not included)... [facility] 01-08-2023 History of Presen t illness Narrative [...] due to lipid rich plaque 05/19/2021 Seeing [facility]: DANISH to Mid RCA and distal RCA 05/12/2021 Diabetes mellitus type 2, controlled, without complications ([facility]) 05/25/2016 Diastasis recti 05/26/2011 Essential hypertension, benign 10/23/2008 12/18/2016: Home BP Cuff Validated. Home BP: 155/89 Office BP: 140/88 Ex-smoker 02/02/2021 Smoked for about 50 yrs and quit around age 65. Could smoke up to 2-4 PPD. GERD without esophagitis 10/23/2008 Low folate 08/16/2021 Low serum vitamin B12 08/16/2021 Mixed hyperlipidemia 10/23/2016 Obesity, Class III, BMI 40-49.9 (morbid obesity) ([facility]) 02/06/2014 Orthostatic hypotension 05/13/2018 Primary malignant neoplasm [...] 1 tablet by mouth once daily. Per [facility] lisinopril (ZESTRIL, PRINIVIL) 10 mg [...] Thao Menchaca PA-C documented in this encounter [facility] 09-29-2022 Note HNO ID: [id number] Author: Jessie Jacques APRN.STATEMENT CLERK Service: ? Author Type: Nurse Practitioner Type: [...] due to lipid rich plaque 05/19/2021 Seeing [facility]: DANISH to Mid RCA and distal RCA 05/12/2021 Diabetes mellitus type 2, controlled, without complications ([facility]) 05/25/2016 Diastasis recti 05/26/2011 Essential hypertension, benign 10/23/2008 12/18/2016: Home BP Cuff Validated. Home BP: 155/89 Office BP: 140/88 Ex-smoker 02/02/2021 Smoked for about 50 yrs and quit around age 65. Could smoke up to 2-4 PPD. GERD without esophagitis 10/23/2008 Low folate 08/16/2021 Low serum vitamin B12 08/16/2021 Mixed hyperlipidemia 10/23/2016 Obesity, Class III, BMI 40-49.9 (morbid obesity) ([facility]) 02/06/2014 Orthostatic hypotension 05/13/2018 Primary malignant neoplasm [...] FLX DX W/COLLJ SPEC WHEN PFRMD 07/02/2018 [facility] Bojor[facility]-repeat 3 years DRUG ELUTING STENT 05/12/2021 [...] 1 tablet by mouth once daily. Per [facility] lisinopril (ZESTRIL, PRINIVIL) 10 mg [...] Pain. FAMILY HISTORY (more content not included)... [facility] 09-29-2022 History of Presen t illness Narrative [...] due to lipid rich plaque 05/19/2021 Seeing [facility]: DANISH to Mid RCA and distal RCA 05/12/2021 Diabetes mellitus type 2, controlled, without complications ([facility]) 05/25/2016 Diastasis recti 05/26/2011 Essential hypertension, benign 10/23/2008 12/18/2016: Home BP Cuff Validated. Home BP: 155/89 Office BP: 140/88 Ex-smoker 02/02/2021 Smoked for about 50 yrs and quit around age 65. Could smoke up to 2-4 PPD. GERD without esophagitis 10/23/2008 Low folate 08/16/2021 Low serum vitamin B12 08/16/2021 Mixed hyperlipidemia 10/23/2016 Obesity, Class III, BMI 40-49.9 (morbid obesity) ([facility]) 02/06/2014 Orthostatic hypotension 05/13/2018 Primary malignant neoplasm [...] 1 tablet by mouth once daily. Per [facility] lisinopril (ZESTRIL, PRINIVIL) 10 mg [...] Jessie Jacques APRN.SUSHMA documented in this encounter [facility] 09-06-2022 Note HNO ID: [id number] Author: Blake Brown Service: ? Author Type: [...] Objective: [facility] Vasc: DP and PT pulses are nonpalpable [...] RTC in 3-4 months. Blake Brown DPM [facility] 09-06-2022 Note HNO ID: [id number] Author: Cheyenne Bruce LPN Service: ? Author [...] and confirmed all medications. Cheyenne Bruce LPN [facility] 09-06-2022 History of Presen t illness Narrative [...] Cheyenne Bruce LPN documented in this encounter [facility] 09-06-2022 Instructions Blake Brown - 09/06/2022 2:06 [...] (or decreased sensation in your feet) a chauffeur airport limousine should always cut your toenails. Be Careful [...] Go to your health care provider or ch[employer]fe[employer] airport limous[employer] to treat these conditions. documented in this encounter [facility] 09-04-2022 Miscellaneous Notes The following approved medication [...] Last refill: 01/[address] [facility] 08-14-2022 Miscellaneous Notes Noted. Spoke with daughter [...] sometimes a discrepancy between our labs and [facility]. I would like to get a CBC [...] receiving this information? Please advise her at [phone]. Thank you. documented in this encounter [facility] 07-13-2022 History of Presen t illness Narrative [...] due to lipid rich plaque 05/19/2021 Seeing [facility]: DANISH to Mid RCA and distal RCA 05/12/2021 Diabetes mellitus type 2, controlled, without complications ([facility]) 05/25/2016 Diastasis recti 05/26/2011 Essential hypertension, benign [...] FLX DX W/COLLJ SPEC WHEN PFRMD 07/02/2018 [facility]jor[facility]-repeat 3 years DRUG ELUTING STENT 05/12/2021 [...] 1 tablet by mouth once daily. Per [facility] lisinopril (ZESTRIL, PRINIVIL) 10 mg [...] Thao Menchaca PA-C documented in this encounter 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 Bright to discuss drooling and follow up for back pain Keep head laceration clean and dry Return as needed documented in this encounter [facility] 07-04-2022 History of Presen t illness Narrative This is a 77 year old male who presents today with: Patient presents with: ER F/U: [facility] ER follow up 06/25 dx: fall; received 3 silvestre on back of head Cough: Started a couple weeks ago; productive, sounds wet drooling: Better after stopping florinef Back Pain: X1 yr HISTORY OF PRESENT ILLNESS: Kerry Warner is a 77 year old male. Patient presents with: ER F/U: [facility] ER follow up 06/25 dx: fall; received [...] [facility]. PAST MEDICAL HISTORY: PAST MEDICAL HISTORY Diagnosis [...] due to lipid rich plaque 05/19/2021 Seeing [facility]: DANISH to Mid RCA and distal RCA 05/12/2021 Diabetes mellitus type 2, controlled, without complications ([facility]) 05/25/2016 Diastasis recti 05/26/2011 Essential hypertension, benign 10/23/2008 12/18/2016: Home BP Cuff Validated. Home BP: 155/89 Office BP: 140/88 Ex-smoker 02/02/2021 Smoked for about 50 yrs and quit around age 65. Could smoke up to 2-4 PPD. GERD without esophagitis 10/23/2008 Low folate 08/16/2021 Low serum vitamin B12 08/16/2021 Mixed hyperlipidemia 10/23/2016 Obesity, Class III, BMI 40-49.9 (morbid obesity) ([facility]) 02/06/2014 Orthostatic hypotension 05/13/2018 Primary malignant neoplasm [...] FLX DX W/COLLJ SPEC WHEN PFRMD 07/02/2018 [facility]-Steven Bojorquez-repeat 3 years DRUG ELUTING STENT 05/12/2021 [...] plan. This note was partially generated using [employer] voice recognition system. Note was reviewed for accuracy. There may be minor misspellings or grammar miscues with [employer] voice recognition. documented in this encounter [facility] 06-07-2022 Instructions Blake Brown - 06/07/2022 1:08 PM EDT Your wound is now healed. There does not appear to be any signs of infection You no longer require bandage Would consider permanent removal in the future. documented in this encounter [facility] 06-07-2022 History of Presen t illness Narrative [...] 5.3 4.2 - 5.6 % Final Comment: Location:[address], [place], [place], [facility] Point of care (POC) Hemoglobin A1c (HGBA1C) [...] specific diabetes management situations: The POC device light bulb replacer provides a normal range of 4.2% to 6.5% for the HGBA1C POC test. However, the [place] [employer] guidelines indicate that patients with [...] due to lipid rich plaque 05/19/2021 Seeing [facility]: DANISH to Mid RCA and distal RCA 05/12/2021 Diabetes mellitus type 2, controlled, without complications ([facility]) 05/25/2016 Diastasis recti 05/26/2011 Essential hypertension, benign 10/23/2008 12/18/2016: Home BP Cuff Validated. Home BP: 155/89 Office BP: 140/88 Ex-smoker 02/02/2021 Smoked for about 50 yrs and quit around age 65. Could smoke up to 2-4 PPD. GERD without esophagitis 10/23/2008 Low folate 08/16/2021 Low serum vitamin B12 08/16/2021 Mixed hyperlipidemia 10/23/2016 Obesity, Class III, BMI 40-49.9 (morbid obesity) ([facility]) 02/06/2014 Orthostatic hypotension 05/13/2018 Primary malignant neoplasm [...] 1 tablet by mouth once daily. Per [facility] lisinopril (ZESTRIL, PRINIVIL) 10 mg [...] FLX DX W/COLLJ SPEC WHEN PFRMD 07/02/2018 [facility] Cebul-repeat 3 years DRUG ELUTING STENT 05/12/2021 [...] taking his antibiotic. documented in this encounter [facility] 05-22-2022 History of Presen t illness Narrative [...] edema or varicosities noted. Non-Invasive Vascular Laboratory [facility] Lower Extremity Arterial Physiology Study Bilateral/Complete Date [...] complication, without long-term current use of insulin ([facility]) Plan: Patient was seen and evaluated. Nails [...] to L hallux. documented in this encounter [facility] 05-22-2022 Instructions Blake Brown - 05/22/2022 11:44 [...] (or decreased sensation in your feet) a chauffeur airport limousine should always cut your toenails. Be Careful [...] Go to your health care provider or ch[employer]fe[employer] airport limous[employer] to treat these conditions. documented in this encounter [facility] 04-18-2022 Miscellaneous Notes Summary: APPOINTMENT SPOKE WITH DAUGHTER 04/21 APPT CX / DID NOT WANT TO R/S AT THIS TIME. documented in this encounter [facility] 03-14-2022 Miscellaneous Notes Pt notified. Pinky Clancy LPN Please notify patient that his stool were all Hemoccult negative. Yan Vargas MD documented in this encounter [facility] 03-10-2022 Miscellaneous Notes Pt. Notified of results, [...] Yan Vargas MD documented in this encounter [facility] 03-06-2022 History and physical note Hematology and Medical Oncology PATIENT NAME: Kerry Warner. CLINIC NO: [id number]. ATTENDING PHYSICIAN: Yan Vargas MD. DATE OF [...] 1 tablet by mouth once daily. Per [facility] lisinopril (ZESTRIL, PRINIVIL) 10 mg [...] due to lipid rich plaque 05/19/2021 Seeing [facility]: DANISH to Mid RCA and [...] 1.00 - 4.00 k/uL 1.57 1.56 1.55 [place]% % 7.2 6.7 5.8 Abs [place] <0.87 k/uL 0.43 0.47 0.42 Eosin% % [...] with more than 50% of the total vnkh-ve-hzdz time of the visit in counseling / coordination of care. The patient and family were allowed enough time to ask questions. All questions were answered to their satisfaction. Patient and family verbalized understanding of anemia of chronic disease and agreed to follow-up with PCP. Yan Vargas MD. ELECTRONICALLY SIGNED documented in this encounter [facility] 03-02-2022 Miscellaneous Notes Patient daughter was notified and voiced understanding. Yuly Jacques MA Left message for daughter. Yuly Jacques MA Let patient know Us of the neck arteries shows slight increase in narrowing on the left. The right was stable. The recent change in his Lipitor should help with this. documented in this encounter [facility] 03-02-2022 Miscellaneous Notes Spoke with patient's daughter [...] Jaimee Sosa LPN documented in this encounter [facility] 02-22-2022 Miscellaneous Notes Detailed message left on Nette's confidential, identified VM. Lori Thakkar Ma Ok to give verbal order as below. Nette- [facility]- reports PT is on hold right now. Reports patient is having elevated BP problem and wearing a heart monitor for [facility]. Asking for verbal order from pcp to re-evaluate for PT once BP is stable. Please phone Nette with verbal. [phone] documented in this encounter [facility] 02-20-2022 Miscellaneous Notes Anne given PCP instructions. Voiced understanding. Yuly Jacques MA Advise Anne I'm ok with extending senior care 1 time a week for 4 weeks to monitor BP. Anne from [facility] Home Health calling asking for verbal order to extend custodial visits 1 time weekly for 4 weeks, to monitor his blood pressure. [facility] increased his Lisinopril 20 mg twice daily on 02/18. Today bp at 215 pm 180/90 pulse 56 and when she was leaving at 250 pm 170/80 pulse 59. Please advise documented in this encounter [facility] 02-17-2022 Nurse Note Patient was set up on BP Noman for a BP average. 203/72 A 204/72 204/71 205/74 202/70 200/71 Heartrate 58 documented in this encounter [facility] 02-17-2022 Instructions Jasson Bright MD - 02/17/2022 12:50 PM EDT Please get labs and urine test done on or after 08/04/2022 prior to your next visit. documented in this encounter [facility] 02-17-2022 History of Presen t illness Narrative [...] see brain health. Patient was recently in custodial home and released about three weeks ago. He had a fall on 01/09 and 01/13. On the he was admitted then sent home and then on 01/13 he was admitted again for fall and then transferred to custodial for rehab. Currently has [facility] for custodial and PHYSICAL THERAPY. He did have a OT eval and felt he did not need Tx. Patient last seen [facility] for f/u and was taken off [...] due to lipid rich plaque 05/19/2021 Seeing [facility]: DANISH to Mid RCA and distal RCA 05/12/2021 Diabetes mellitus type 2, controlled, without complications ([facility]) 05/25/2016 Diastasis recti 05/26/2011 Essential hypertension, benign 10/23/2008 12/18/2016: Home BP Cuff Validated. Home BP: 155/89 Office BP: 140/88 Ex-smoker 02/02/2021 Smoked for about 50 yrs and quit around age 65. Could smoke up to 2-4 PPD. GERD without esophagitis 10/23/2008 Low folate 08/16/2021 Low serum vitamin B12 08/16/2021 Mixed hyperlipidemia 10/23/2016 Obesity, Class III, BMI 40-49.9 (morbid obesity) ([facility]) 02/06/2014 Primary malignant neoplasm of skin of [...] 1 tablet by mouth once daily. Per [facility] atorvastatin (LIPITOR) 10 mg tablet [...] Lymph 1.00 - 4.00 k/uL 1.14 1.57 [place]% % 7.6 7.2 Abs [place] <0.87 k/uL 0.36 0.43 Eosin% % 11.4 [...] which included preparing to see the patient, [id number]-[id number] patient care, completing clinical documentation, performing a medically appropriate examination, counseling and educating the patient/family/caregiver and ordering medications, tests, or procedures. albumin, B12 Mg, folate and PSA prior. Jasson Bright MD documented in this encounter [facility] 02-15-2022 Miscellaneous Notes Nette from [facility] Home health returned call and went over notes below from Dr Bright with understanding. Left message to call office. 02/14/2022 8:28 AM Yoni Quintana Ma Ok to give verbal order for [facility] visit x one this week to re-certify. CALIN Grubbs @ [facility] calling to request order for visit x one this week to recertify patient to extend home health nursing visits to monitor BP and edema. If agree, please give verbal okay. # [phone]. Brenda Willis RN documented in this encounter [facility] 02-10-2022 Miscellaneous Notes Last office visit: 11/10/21 [...] patient. Muriel Danielseteresita documented in this encounter [facility] 02-09-2022 History of Presen t illness Narrative Images from the original note were not included. [facility] [place] Follow-up Visit Follow-up note February 09, 2022 [...] cardiac disease or autonomic dysfunction, [facility] At this time, given exam findings, will [...] DC'd amlodipine and spironolactone. Was discharged to [place] in [facility]. Has been working on slower movements. [...] has been emailing daily BP readings to QUICK TECHNICIAN in the office. States blood pressure has [...] [facility]. PAST MEDICAL HISTORY Diagnosis Date Anemia of [...] due to lipid rich plaque 05/19/2021 Seeing [facility]: DANISH to Mid RCA and [...] Obesity, Class III, BMI 40-49.9 (morbid obesity) ([facility]) 02/06/2014 Primary malignant neoplasm of skin of [...] FLX DX W/COLLJ SPEC WHEN PFRMD 07/02/2018 [facility] Bojor[facility]-repeat 3 years DRUG ELUTING STENT 05/12/2021 [...] has been completing PT while admitted to [place]. As symptoms continue at this time, and [...] which included preparing to see the patient, kclb-lq-[id number] patient care, completing clinical documentation, obtaining and/or reviewing separately obtained history, performing a medically appropriate examination, counseling and educating the patient/family/caregiver and ordering medications, tests, or procedures. documented in this encounter [facility] 02-07-2022 History of Presen t illness Narrative Patient's home health 485 form / care plan for certification period 01/26/2022 to 03/26/2022 reviewed and signed. Relevant medical records were reviewed. No changes were indicated documented in this encounter [facility] 01-31-2022 Miscellaneous Notes Noted. Sherine with [facility] Occupation Therapy calling to report to PCP that patient's blood pressure was elevated again today. It was 176/80 at beginning of OT visit today and pulse of 59. After exercises, BP was 192/74 with a pulse of 56. She reports patient denied any symptoms and is adamant about starting back on his water pill. 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 Sherine also reporting update to OT plan of care. Patient was evaluated today and one visit was needed only. Patient to continue with PT. No call back needed to Sherine. Thank you. documented in this encounter [facility] 01-31-2022 Miscellaneous Notes Left detailed vm on identified vm, with provider's message below. 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 Scarlet with [facility] called and stated she just got to [...] Ely Do LPN documented in this encounter [facility] 01-24-2022 Miscellaneous Notes Left detailed message on confidential vm Rebeka Jacinto Ma Let santiago know I will follow for C orders. The 90 day face to face needs competed by the provider caring for him at [facility]. Sultana with [facility] calls to report that pt will be discharged from [facility] on 01/25/22. Pt has orders for PT and OT. Sultana is asking if pcp will follow pt while in . Call Sultana with provider's verbal order that pcp will follow. Martha Virgen LPN documented in this encounter [facility] 01-20-2022 Miscellaneous Notes EEG results reviewed. Report indicates generalized slowing, but no epileptiform or electrographic seizure activity. Romeo Jarvis MD This staff verified EEG results faxed to [facility] yesterday . Patient's daughter, Jj calling for EEG results done @ [facility] on 01/13. She says [facility] is also requesting results. See previous note. Brenda Willis RN [facility] is calling asking for a copy of EEG completed at [facility] to be faxed to them [phone]. Office number [phone] Carolin ext is [phone] for any further questions. Spoke with patients daughter, aware of consult, requesting orders faxed to [facility]. Also requesting OV to follow up testing results. Will need to be placed on wait list, no openings in [facility] with Jose Luis Perdomo APRN, CNP for several weeks. Jaimee Sosa LPN ----- Message from Magnolia Perdomo APRN.STATEMENT CLERK sent at 01/12/2022 12:48 PM EDT ----- Spoke with neurologist at [facility] and concern regarding blood pressure fluctuations. Discussed consult to autonomic clinic and consult placed. documented in this encounter [facility] 01-12-2022 History of Presen t illness Narrative Spoke with neurology treating patient at [facility]. Concern regarding fluctuation in blood pressure and medications. Previous consideration for referral to autonomic clinic. After discussion with neurology will place consult at this time for further review of medications. documented in this encounter [facility] 01-11-2022 Miscellaneous Notes Called the patient's daughter and offered an appointment for 01/12 with the nurse practitioner. The patient is currently scheduled at the [facility] for EEG on February 01. The daughter is going to call and try to have a sooner appointment for the EEG. They will call [phone] to schedule an appointment with the provider after the EEG test. Dr. Marii Waters from [facility] calling to request Dr. Jarvis to call her cell as soon as possible at [phone] regarding patient update. Thank you. Jacque Epsp RN documented in this encounter [facility] 01-04-2022 Miscellaneous Notes Sultana notified that provider [...] Bright in 1-2 weeks. Sultana LAYTON from [facility] calls and states that patient is being discharged from [facility] Today 01/04/2022 with the diagnosis of Rhabdomyolysis, [...] Lori Quinteros RN documented in this encounter [facility] 12-23-2021 Miscellaneous Notes Please call the patient's MICHAEL Reza at [phone] to schedule the patient for a follow-up appointment with Dr. Jarvis. The follow-up is for mental status and EEG results done at [facility]. Called the patient and spoke with MICHAEL Reza. The wants to have his EEG done at the [facility]. for Registration. Faxed the order and requested them to call the patient to schedule and to fax results to office. documented in this encounter [facility] 08-26-2021 Note HNO ID: [id number] Author: Lillian Stanley RN Service: Care Management Author Type: Registered Nurse Type: Care Mgt Progress Note Filed: 08/26/2021 12:51 PM Note Text: CARE MANAGEMENT PROGRESS NOTE SERVICE DATE: 08/26/2021 SERVICE TIME: 1248 LOS: 9 days Admission Date: 08/17/2021 DISCHARGE ARRANGEMENT (list agency and phone number) Discharge Arrangement: Custodial Facility Was an expedited discharge program used?: Yes Type: Other: See Comment (THP waiver) Provider Name: Jasson Bright Phone: . CAREGIVER ASSESSMENT: HANDOFF COMMUNICATION: Handoff to: Primary Care Physician Primary Care Physician Name/Phone: Jasson Bright TRANSPORTATION ARRANGEMENTS: Transportation Arrangements: Ambulance/[facility] and Phone #:: [facility] [phone] Date of Trip: 08/26/21 Time of Trip: 1730 Type of Service: BLS Non-emergency Is Patient Medicaid Pending?: No Discussion of financial coverage occurred with: Family Electrical Design Engineer Location: [facility] Care Management Responsibility: None ADDITIONAL CONTACT RESOURCES: Jj [phone] Discharge Information Row Name ED to Hosp-Admission (Current) from 08/17/2021 in [facility] Pt will be discharged to SNF at 1730 today, notified pt's daughter Jj and pt of garbage pick up man time. CALIN Carcamo aware envelope on chart to call report and garbage pick up man time. SIGNATURE: Lillian Stanley RN PATIENT NAME: Keryr Warner DATE: August 26, 2021 TIME: 12:48 PM PAGER/CONTACT #: [phone] [facility] 08-26-2021 Note HNO ID: [id number] Author: Lillian Stanley RN Service: Care Management Author Type: Registered Nurse Type: Care Mgt Progress Note Filed: 08/26/2021 11:42 AM Note Text: CARE MANAGEMENT PROGRESS NOTE SERVICE DATE: 08/26/2021 SERVICE TIME: 1142 LOS: 9 days IMM Follow Up Copy Given: Yes Copy given to:: Patient Senior Litigation Paralegal Senior Litigation Paralegal Name/Relationship: Jj Cooney-daughter Method: By Phone . SIGNATURE: Lillian Stanley RN PATIENT NAME: Kerry Warner DATE: August 26, 2021 TIME: 11:42 AM PAGER/CONTACT #: [phone] [facility] 08-25-2021 Note HNO ID: [id number] Author: Carin Calixto APRN.CNP Service: Hospital Medicine Author Type: Nurse Practitioner Type: Progress Notes Filed: 08/25/2021 2:07 PM Note Text: DEPARTMENT OF HOSPITAL MEDICINE PROGRESS NOTE SERVICE DATE: 08/25/2021 SERVICE TIME: 12:33 PM Hospital Medicine/Primary Attending: Clifton Sarmiento MD NIGHT AND WEEKEND COVERAGE: [place] [employer]: Days: [phone], please page attending physician. Nights: [phone], please page [facility] Hospital[facility] Night coverage pager [phone]. Subjective CC: Shortness of breath INTERVAL HPI: [...] - PRN Se (more content not included)... [facility] 08-24-2021 Note HNO ID: [id number] Author: Karan Almaguer PA-C Service: Hospital Medicine Author Type: Physician Dietetic Intern Type: Progress Notes Filed: 08/24/2021 5:41 PM Note Text: DEPARTMENT OF HOSPITAL MEDICINE PROGRESS NOTE SERVICE DATE: 08/24/2021 SERVICE TIME: 11:57 AM Hospital Medicine/Primary Attending: Clifton Sarmiento MD NIGHT AND WEEKEND COVERAGE: [place] [employer]: Days: [phone], please page attending physician. Nights: [phone], please page [facility] Hospital[facility] Night coverage pager [phone]. Subjective CC: Shortness of breath INTERVAL HPI: [...] - Fall precautions Orthostatic hypotension - On [facility] (more content not included)... [facility] 08-23-2021 Note HNO ID: [id number] Author: Lillian Stanley RN Service: Care Management Author Type: Registered Nurse Type: Care Mgt Progress Note Filed: 08/23/2021 4:24 PM Note Text: CARE MANAGEMENT PROGRESS NOTE SERVICE DATE: 08/23/2021 SERVICE TIME: 1622 LOS: 6 days progress note Received telephone call from Chica, pt's daughter, she confirmed that she does want her father to go to [facility]. Requested precert be started now. SIGNATURE: Lillian Stanley RN PATIENT NAME: Kerry Warner DATE: August 23, 2021 TIME: 4:21 PM PAGER/CONTACT #: [phone] [facility] 08-23-2021 Note HNO ID: [id number] Author: Sheba Stevens, MEDICAL INSURANCE VERIFIER.STATEMENT CLERK Service: Hospital Medicine Author Type: Nurse Practitioner Type: Progress Notes Filed: 08/23/2021 1:04 PM Note Text: DEPARTMENT OF HOSPITAL MEDICINE PROGRESS NOTE SERVICE DATE: 08/23/2021 SERVICE TIME: 11:57 AM Hospital Medicine/Primary Attending: Clifton Sarmiento MD NIGHT AND WEEKEND COVERAGE: [place] [employer]: Days: [phone], please page attending physician. Nights: [phone], please page [facility] Hospital[facility] Night coverage pager [phone]. Subjective CC: Shortness of breath INTERVAL HPI: [...] fully oriented on (more content not included)... [facility] 08-22-2021 Note HNO ID: [id number] Author: Sheba Stevens APRN.STATEMENT CLERK Service: Hospital Medicine Author Type: Nurse Practitioner Type: Progress Notes Filed: 08/22/2021 3:30 PM Note Text: DEPARTMENT OF HOSPITAL MEDICINE PROGRESS NOTE SERVICE DATE: 08/22/2021 SERVICE TIME: 11:57 AM Hospital Medicine/Primary Attending: Clifton Sarmiento MD NIGHT AND WEEKEND COVERAGE: [place] [employer]: : [phone], please page attending physician. Nights: [phone], please page [facility] Hospital[facility] Night coverage pager [phone]. Subjective CC: Shortness of breath INTERVAL HPI: Feeling well today without complaints. No chest pain or shortness of breath. Cough not present on assessment. BLE generalized edema noted. Discussed discharge plan with daughter, Libia PT/OT recommending SNF, daughter would like the the patient to return home with [facility]. PT/OT re evaluated and again recommending SNF. [...] ago - Kimberley (more content not included)... [facility] 08-22-2021 Note HNO ID: [id number] Author: Lillian Stanley RN Service: Care Management [...] 22, 2021 TIME: 1:17 PM PAGER/CONTACT #: [phone] [facility] documented as of this encounter (statuses as of 02/19/2022) [facility]2021 History of Past illness Narrative* Problem Noted Date Resolved Date Malnutrition of moderate degree 08/22/2021 02/17/2022 COPD exacerbation 08/17/2021 08/26/2021 Upper back strain 02/19/2018 02/02/2021 Tubulovillous adenoma polyp of colon 06/21/2016 06/21/2016 Chronic superficial gastritis without bleeding 0 06/21/2016 06/21/2016 Hypokalemia 02/12/2015 05/06/2015 Tobacco use disorder 10/23/2008 12/19/2011 documented as of this encounter (statuses as of 02/20/2022) [facility] History of Past illness Narrative* Problem Noted Date Resolved Date Malnutrition of moderate degree 08/22/2021 02/17/2022 COPD exacerbation 08/17/2021 08/26/2021 Upper back strain 02/19/2018 02/02/2021 Tubulovillous adenoma polyp of colon 06/21/2016 06/21/2016 Chronic superficial gastritis without bleeding 0 06/21/2016 06/21/2016 Hypokalemia 02/12/2015 05/06/2015 Tobacco use disorder 10/23/2008 12/19/2011 documented as of this encounter (statuses as of 02/22/2022) [facility] History of Past illness Narrative* Problem Noted Date Resolved Date Malnutrition of moderate degree 08/22/2021 02/17/2022 COPD exacerbation 08/17/2021 08/26/2021 Upper back strain 02/19/2018 02/02/2021 Tubulovillous adenoma polyp of colon 06/21/2016 06/21/2016 Chronic superficial gastritis without bleeding 0 06/21/2016 06/21/2016 Hypokalemia 02/12/2015 05/06/2015 Tobacco use disorder 10/23/2008 12/19/2011 documented as of this encounter (statuses as of 03/02/2022) [facility] History of Past illness Narrative* Problem Noted Date Resolved Date Malnutrition of moderate degree 08/22/2021 02/17/2022 COPD exacerbation 08/17/2021 08/26/2021 Upper back strain 02/19/2018 02/02/2021 Tubulovillous adenoma polyp of colon 06/21/2016 06/21/2016 Chronic superficial gastritis without bleeding 0 06/21/2016 06/21/2016 Hypokalemia 02/12/2015 05/06/2015 Tobacco use disorder 10/23/2008 12/19/2011 documented as of this encounter (statuses as of 03/02/2022) [facility] History of Past illness Narrative* Problem Noted Date Resolved Date Malnutrition of moderate degree 08/22/2021 02/17/2022 COPD exacerbation 08/17/2021 08/26/2021 Upper back strain 02/19/2018 02/02/2021 Tubulovillous adenoma polyp of colon 06/21/2016 06/21/2016 Chronic superficial gastritis without bleeding 0 06/21/2016 06/21/2016 Hypokalemia 02/12/2015 05/06/2015 Tobacco use disorder 10/23/2008 12/19/2011 documented as of this encounter (statuses as of 03/07/2022) [facility] History of Past illness Narrative* Problem Noted Date Resolved Date Malnutrition of moderate degree 08/22/2021 02/17/2022 COPD exacerbation 08/17/2021 08/26/2021 Upper back strain 02/19/2018 02/02/2021 Tubulovillous adenoma polyp of colon 06/21/2016 06/21/2016 Chronic superficial gastritis without bleeding 0 06/21/2016 06/21/2016 Hypokalemia 02/12/2015 05/06/2015 Tobacco use disorder 10/23/2008 12/19/2011 documented as of this encounter (statuses as of 03/10/2022) [facility] History of Past illness Narrative* Problem Noted Date Resolved Date Malnutrition of moderate degree 08/22/2021 02/17/2022 COPD exacerbation 08/17/2021 08/26/2021 Upper back strain 02/19/2018 02/02/2021 Tubulovillous adenoma polyp of colon 06/21/2016 06/21/2016 Chronic superficial gastritis without bleeding 0 06/21/2016 06/21/2016 Hypokalemia 02/12/2015 05/06/2015 Tobacco use disorder 10/23/2008 12/19/2011 documented as of this encounter (statuses as of 03/14/2022) [facility] History of Past illness Narrative* Problem Noted Date Resolved Date Malnutrition of moderate degree 08/22/2021 02/17/2022 COPD exacerbation 08/17/2021 08/26/2021 Upper back strain 02/19/2018 02/02/2021 Tubulovillous adenoma polyp of colon 06/21/2016 06/21/2016 Chronic superficial gastritis without bleeding 0 06/21/2016 06/21/2016 Hypokalemia 02/12/2015 05/06/2015 Tobacco use disorder 10/23/2008 12/19/2011 documented as of this encounter (statuses as of 04/18/2022) [facility] History of Past illness Narrative* Problem Noted Date Resolved Date Malnutrition of moderate degree 08/22/2021 02/17/2022 COPD exacerbation 08/17/2021 08/26/2021 Upper back strain 02/19/2018 02/02/2021 Tubulovillous adenoma polyp of colon 06/21/2016 06/21/2016 Chronic superficial gastritis without bleeding 0 06/21/2016 06/21/2016 Hypokalemia 02/12/2015 05/06/2015 Tobacco use disorder 10/23/2008 12/19/2011 documented as of this encounter (statuses as of 05/23/2022) [facility] History of Past illness Narrative* Problem Noted Date Resolved Date Malnutrition of moderate degree 08/22/2021 02/17/2022 COPD exacerbation 08/17/2021 08/26/2021 Upper back strain 02/19/2018 02/02/2021 Tubulovillous adenoma polyp of colon 06/21/2016 06/21/2016 Chronic superficial gastritis without bleeding 0 06/21/2016 06/21/2016 Hypokalemia 02/12/2015 05/06/2015 Tobacco use disorder 10/23/2008 12/19/2011 documented as of this encounter (statuses as of 06/07/2022) [facility] History of Past illness Narrative* Problem Noted Date Resolved Date Malnutrition of moderate degree 08/22/2021 02/17/2022 COPD exacerbation 08/17/2021 08/26/2021 Upper back strain 02/19/2018 02/02/2021 Tubulovillous adenoma polyp of colon 06/21/2016 06/21/2016 Chronic superficial gastritis without bleeding 0 06/21/2016 06/21/2016 Hypokalemia 02/12/2015 05/06/2015 Tobacco use disorder 10/23/2008 12/19/2011 documented as of this encounter (statuses as of 07/04/2022) [facility] History of Past illness Narrative* Problem Noted Date Resolved Date Malnutrition of moderate degree 08/22/2021 02/17/2022 COPD exacerbation 08/17/2021 08/26/2021 Upper back strain 02/19/2018 02/02/2021 Tubulovillous adenoma polyp of colon 06/21/2016 06/21/2016 Chronic superficial gastritis without bleeding 0 06/21/2016 06/21/2016 Hypokalemia 02/12/2015 05/06/2015 Tobacco use disorder 10/23/2008 12/19/2011 documented as of this encounter (statuses as of 07/13/2022) [facility] History of Past illness Narrative* Problem Noted Date Resolved Date Malnutrition of moderate degree 08/22/2021 02/17/2022 COPD exacerbation 08/17/2021 08/26/2021 Upper back strain 02/19/2018 02/02/2021 Tubulovillous adenoma polyp of colon 06/21/2016 06/21/2016 Chronic superficial gastritis without bleeding 0 06/21/2016 06/21/2016 Hypokalemia 02/12/2015 05/06/2015 Tobacco use disorder 10/23/2008 12/19/2011 documented as of this encounter (statuses as of 08/14/2022) [place] [address]-22-2021 History of Past illness Narrative* Problem Noted Date Resolved Date Malnutrition of moderate degree 08/22/2021 02/17/2022 COPD exacerbation 08/17/2021 08/26/2021 Upper back strain 02/19/2018 02/02/2021 Tubulovillous adenoma polyp of colon 06/21/2016 06/21/2016 Chronic superficial gastritis without bleeding 0 06/21/2016 06/21/2016 Hypokalemia 02/12/2015 05/06/2015 Tobacco use disorder 10/23/2008 12/19/2011 documented as of this encounter (statuses as of 09/04/2022) [facility] History of Past illness Narrative* Problem Noted Date Resolved Date Malnutrition of moderate degree 08/22/2021 02/17/2022 COPD exacerbation 08/17/2021 08/26/2021 Upper back strain 02/19/2018 02/02/2021 Tubulovillous adenoma polyp of colon 06/21/2016 06/21/2016 Chronic superficial gastritis without bleeding 0 06/21/2016 06/21/2016 Hypokalemia 02/12/2015 05/06/2015 Tobacco use disorder 10/23/2008 12/19/2011 documented as of this encounter (statuses as of 09/06/2022) [facility] History of Past illness Narrative* Problem Noted Date Resolved Date Malnutrition of moderate degree 08/22/2021 02/17/2022 COPD exacerbation 08/17/2021 08/26/2021 Upper back strain 02/19/2018 02/02/2021 Tubulovillous adenoma polyp of colon 06/21/2016 06/21/2016 Chronic superficial gastritis without bleeding 0 06/21/2016 06/21/2016 Hypokalemia 02/12/2015 05/06/2015 Tobacco use disorder 10/23/2008 12/19/2011 documented as of this encounter (statuses as of 10/04/2022) [facility] History of Past illness Narrative* Problem Noted Date Resolved Date Malnutrition of moderate degree 08/22/2021 02/17/2022 COPD exacerbation 08/17/2021 08/26/2021 Upper back strain 02/19/2018 02/02/2021 Tubulovillous adenoma polyp of colon 06/21/2016 06/21/2016 Chronic superficial gastritis without bleeding 0 06/21/2016 06/21/2016 Hypokalemia 02/12/2015 05/06/2015 Tobacco use disorder 10/23/2008 12/19/2011 documented as of this encounter (statuses as of 01/08/2023) [facility] History of Past illness Narrative* Problem Noted Date Resolved Date Malnutrition of moderate degree 08/22/2021 02/17/2022 COPD exacerbation 08/17/2021 08/26/2021 Upper back strain 02/19/2018 02/02/2021 Tubulovillous adenoma polyp of colon 06/21/2016 06/21/2016 Chronic superficial gastritis without bleeding 0 06/21/2016 06/21/2016 Hypokalemia 02/12/2015 05/06/2015 Tobacco use disorder 10/23/2008 12/19/2011 documented as of this encounter (statuses as of 02/02/2023) [facility] History of Past illness Narrative* Problem Noted Date Resolved Date Malnutrition of moderate degree 08/22/2021 02/17/2022 COPD exacerbation 08/17/2021 08/26/2021 Upper back strain 02/19/2018 02/02/2021 Tubulovillous adenoma polyp of colon 06/21/2016 06/21/2016 Chronic superficial gastritis without bleeding 0 06/21/2016 06/21/2016 Hypokalemia 02/12/2015 05/06/2015 Tobacco use disorder 10/23/2008 12/19/2011 documented as of this encounter (statuses as of 02/05/2023) [facility] History of Past illness Narrative* Problem Noted Date Resolved Date Malnutrition of moderate degree 08/22/2021 02/17/2022 COPD exacerbation 08/17/2021 08/26/2021 Upper back strain 02/19/2018 02/02/2021 Tubulovillous adenoma polyp of colon 06/21/2016 06/21/2016 Chronic superficial gastritis without bleeding 0 06/21/2016 06/21/2016 Hypokalemia 02/12/2015 05/06/2015 Tobacco use disorder 10/23/2008 12/19/2011 documented as of this encounter (statuses as of 02/28/2023) [address]22-2021 History of Past illness Narrative* Problem Noted Date Resolved Date Malnutrition of moderate degree 08/22/2021 02/17/2022 COPD exacerbation 08/17/2021 08/26/2021 Upper back strain 02/19/2018 02/02/2021 Tubulovillous adenoma polyp of colon 06/21/2016 06/21/2016 Chronic superficial gastritis without bleeding 0 06/21/2016 06/21/2016 Hypokalemia 02/12/2015 05/06/2015 Tobacco use disorder 10/23/2008 12/19/2011 documented as of this encounter (statuses as of 03/01/2023) [facility] History of Past illness Narrative* Problem Noted Date Resolved Date Malnutrition of moderate degree 08/22/2021 02/17/2022 COPD exacerbation 08/17/2021 08/26/2021 Upper back strain 02/19/2018 02/02/2021 Tubulovillous adenoma polyp of colon 06/21/2016 06/21/2016 Chronic superficial gastritis without bleeding 0 06/21/2016 06/21/2016 Hypokalemia 02/12/2015 05/06/2015 Tobacco use disorder 10/23/2008 12/19/2011 documented as of this encounter (statuses as of 03/05/2023) [facility] History of Past illness Narrative* Problem Noted Date Diagnosed Date Resolved Date Malnutrition of moderate degree 08/22/2021 02/17/2022 COPD exacerbation 08/17/2021 08/26/2021 Upper back strain 02/19/2018 02/02/2021 Tubulovillous adenoma polyp of colon 06/21/2016 06/21/2016 Chronic superficial gastriti s without bleeding 06/21/2016 06/21/2016 Hypokalemia 02/12/2015 05/06/2015 Tobacco use disorder 10/23/2008 012 documented as of this encounter (statuses as of 04/18/2023) [facility] History of Past illness Narrative* Problem Noted Date Diagnosed Date Resolved Date Malnutrition of moderate degree 08/22/2021 02/17/2022 COPD exacerbation 08/17/2021 08/26/2021 Upper back strain 02/19/2018 02/02/2021 Tubulovillous adenoma polyp of colon 06/21/2016 06/21/2016 Chronic superficial gastriti s without bleeding 06/21/2016 06/21/2016 Hypokalemia 02/12/2015 05/06/2015 Tobacco use disorder 10/23/2008 012 documented as of this encounter (statuses as of 05/17/2023) [facility] History of Past illness Narrative* Problem Noted Date Diagnosed Date Resolved Date Malnutrition of moderate degree 08/22/2021 02/17/2022 COPD exacerbation 08/17/2021 08/26/2021 Upper back strain 02/19/2018 02/02/2021 Tubulovillous adenoma polyp of colon 06/21/2016 06/21/2016 Chronic superficial gastriti s without bleeding 06/21/2016 06/21/2016 Hypokalemia 02/12/2015 05/06/2015 Tobacco use disorder 10/23/2008 012 documented as of this encounter (statuses as of 05/18/2023) [facility] History of Past illness Narrative* Problem Noted Date Diagnosed Date Resolved Date Malnutrition of moderate degree 08/22/2021 02/17/2022 COPD exacerbation 08/17/2021 08/26/2021 Upper back strain 02/19/2018 02/02/2021 Tubulovillous adenoma polyp of colon 06/21/2016 06/21/2016 Chronic superficial gastriti s without bleeding 06/21/2016 06/21/2016 Hypokalemia 02/12/2015 05/06/2015 Tobacco use disorder 10/23/2008 012 documented as of this encounter (statuses as of 05/18/2023) [facility] History of Past illness Narrative* Problem Noted Date Diagnosed Date Resolved Date Malnutrition of moderate degree 08/22/2021 02/17/2022 COPD exacerbation 08/17/2021 08/26/2021 Upper back strain 02/19/2018 02/02/2021 Tubulovillous adenoma polyp of colon 06/21/2016 06/21/2016 Chronic superficial gastriti s without bleeding 06/21/2016 06/21/2016 Hypokalemia 02/12/2015 05/06/2015 Tobacco use disorder 10/23/2008 012 documented as of this encounter (statuses as of 05/28/2023) [facility] History of Past illness Narrative* Problem Noted Date Diagnosed Date Resolved Date Malnutrition of moderate degree 08/22/2021 02/17/2022 COPD exacerbation 08/17/2021 08/26/2021 Upper back strain 02/19/2018 02/02/2021 Tubulovillous adenoma polyp of colon 06/21/2016 06/21/2016 Chronic superficial gastriti s without bleeding 06/21/2016 06/21/2016 Hypokalemia 02/12/2015 05/06/2015 Tobacco use disorder 10/23/2008 012 documented as of this encounter (statuses as of 08/18/2023) [facility]2021 NoteHNO ID: [id number] Author: Carin Calixto APRN.CNP Service: Hospital Medicine Author Type: Nurse Practitioner Type: Progress Notes Filed: 08/21/2021 12:01 PM Note Text: DEPARTMENT OF HOSPITAL MEDICINE PROGRESS NOTE SERVICE DATE: 08/21/2021 SERVICE TIME: 11:57 AM Hospital Medicine/Primary Attending: Clifton Sarmiento MD NIGHT AND WEEKEND COVERAGE: [place] [employer]: Days: [phone], please page attending physician. Nights: [phone], please page [facility] Hospital[facility] Night coverage pager [phone]. Subjective CC: Shortness of breath INTERVAL HPI: [...] up with neurolo (more content not included)... [id number] NoteHNO ID: [id number] Author: Carin Calixto APRN.STATEMENT CLERK Service: Hospital Medicine Author Type: Nurse Practitioner Type: Progress Notes Filed: 08/20/2021 11:33 AM Note Text: DEPARTMENT OF HOSPITAL MEDICINE PROGRESS NOTE SERVICE DATE: 08/20/2021 SERVICE TIME: 11:21 AM Hospital Medicine/Primary Attending: Clifton Sarmiento MD NIGHT AND WEEKEND COVERAGE: [place] [employer]: Days: [phone], please page attending physician. Nights: [phone], please page [facility] Hospital[facility] Night coverage pager [phone]. 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 No Is Patient Psychosocially Complex?: No ASSESSMENT AND PLAN: Medical Needs: Medical Needs: Two or more chronic diseases;Obesity;Durable Medical Equipment;Fall risk or frequent falls Psychosocial Needs: Psychosocial Needs: None FREEDOM OF CHOICE EXPLAINED: [place] of Choice Given: Yes Level of Care Discussed: Home Care;Custodial Facility POTENTIAL TRANSITION PLANS To Be Determined Telephoned and spoke with Jj Cooney daughter since pt was confused. Pt was admitted to [facility] in May and then discharged to the [facility], was discharged to home with [facility]. Pt was being discharged this week from home care services. Jj states pt has been doing really well at home but has been depressed due to spouse in 2020. Jj will speak with family regarding SNF vs. Home with [facility] and she will notify me this afternoon their decision. SIGNATURE: Lillian Stanley RN PATIENT NAME: Kerry Warner DATE: August 19, 2021 TIME: 2:04 PM PAGER/CONTACT #: [phone] NoteHNO ID: [id number] Author: Carin Calixto APRN.CNP Service: Hospital Medicine Author Type: Nurse Practitioner Type: Progress Notes Filed: 08/19/2021 1:23 PM Note Text: DEPARTMENT OF HOSPITAL MEDICINE PROGRESS NOTE SERVICE DATE: 08/19/2021 SERVICE TIME: 11:24 AM Hospital Medicine/Primary Attending: Clifton Sarmiento MD NIGHT AND WEEKEND COVERAGE: [place] [employer]: : [phone], please page attending physician. Nights: [phone], please page [facility] Hospital[facility] Night coverage pager [phone]. Subjective CC: Shortness of breath INTERVAL HPI: [...] and Non-Pharmacologic VTE Prophylaxis/Anticoagulant (more content not included)...[facility] [id number] NoteHNO ID: [id number] Author: Lillian Stanley RN Service: Care Management [...] 18, 2021 TIME: 5:14 PM PAGER/CONTACT #: [phone] NoteHNO ID: [id number] Author: Carin Calixto APRN.CNP Service: Hospital Medicine Author Type: Nurse Practitioner Type: Progress Notes Filed: 08/18/2021 4:10 PM Note Text: DEPARTMENT OF HOSPITAL MEDICINE PROGRESS NOTE SERVICE DATE: 08/18/2021 SERVICE TIME: 10:06 AM Hospital Medicine/Primary Attending: Clifton Sarmiento MD NIGHT AND WEEKEND COVERAGE: [place] [employer]: Days: [phone], please page attending physician. Nights: [phone], please page [facility] Hospital[facility] Night coverage pager [phone]. Subjective CC: Shortness of breath INTERVAL HPI: [...] aspirin, enteric coated 8 (more content not included)...[id number] of Past illness Narrative* Problem Noted Date Resolved Date COPD exacerbation 08/17/2021 08/26/2021 Upper back strain 02/19/2018 02/02/2021 Tubulovillous adenoma polyp of colon 06/21/2016 06/21/2016 Chronic superficial gastritis without bleeding 0 06/21/2016 06/21/2016 Hypokalemia 02/12/2015 05/06/2015 Tobacco use disorder 10/23/2008 12/19/2011 documented as of this encounter (statuses as of 01/04/2022) [facility] History of Past illness Narrative* Problem Noted Date Resolved Date COPD exacerbation 08/17/2021 08/26/2021 Upper back strain 02/19/2018 02/02/2021 Tubulovillous adenoma polyp of colon 06/21/2016 06/21/2016 Chronic superficial gastritis without bleeding 0 06/21/2016 06/21/2016 Hypokalemia 02/12/2015 05/06/2015 Tobacco use disorder 10/23/2008 12/19/2011 documented as of this encounter (statuses as of 01/11/2022) [facility] History of Past illness Narrative* Problem Noted Date Resolved Date COPD exacerbation 08/17/2021 08/26/2021 Upper back strain 02/19/2018 02/02/2021 Tubulovillous adenoma polyp of colon 06/21/2016 06/21/2016 Chronic superficial gastritis without bleeding 0 06/21/2016 06/21/2016 Hypokalemia 02/12/2015 05/06/2015 Tobacco use disorder 10/23/2008 12/19/2011 documented as of this encounter (statuses as of 01/11/2022) [facility] History of Past illness Narrative* Problem Noted Date Resolved Date COPD exacerbation 08/17/2021 08/26/2021 Upper back strain 02/19/2018 02/02/2021 Tubulovillous adenoma polyp of colon 06/21/2016 06/21/2016 Chronic superficial gastritis without bleeding 0 06/21/2016 06/21/2016 Hypokalemia 02/12/2015 05/06/2015 Tobacco use disorder 10/23/2008 12/19/2011 documented as of this encounter (statuses as of 01/12/2022) [facility] History of Past illness Narrative* Problem Noted Date Resolved Date COPD exacerbation 08/17/2021 08/26/2021 Upper back strain 02/19/2018 02/02/2021 Tubulovillous adenoma polyp of colon 06/21/2016 06/21/2016 Chronic superficial gastritis without bleeding 0 06/21/2016 06/21/2016 Hypokalemia 02/12/2015 05/06/2015 Tobacco use disorder 10/23/2008 12/19/2011 documented as of this encounter (statuses as of 01/20/2022) [facility] History of Past illness Narrative* Problem Noted Date Resolved Date COPD exacerbation 08/17/2021 08/26/2021 Upper back strain 02/19/2018 02/02/2021 Tubulovillous adenoma polyp of colon 06/21/2016 06/21/2016 Chronic superficial gastritis without bleeding 0 06/21/2016 06/21/2016 Hypokalemia 02/12/2015 05/06/2015 Tobacco use disorder 10/23/2008 12/19/2011 documented as of this encounter (statuses as of 01/24/2022) [facility] History of Past illness Narrative* Problem Noted Date Resolved Date COPD exacerbation 08/17/2021 08/26/2021 Upper back strain 02/19/2018 02/02/2021 Tubulovillous adenoma polyp of colon 06/21/2016 06/21/2016 Chronic superficial gastritis without bleeding 0 06/21/2016 06/21/2016 Hypokalemia 02/12/2015 05/06/2015 Tobacco use disorder 10/23/2008 12/19/2011 documented as of this encounter (statuses as of 01/31/2022) [facility] History of Past illness Narrative* Problem Noted Date Resolved Date COPD exacerbation 08/17/2021 08/26/2021 Upper back strain 02/19/2018 02/02/2021 Tubulovillous adenoma polyp of colon 06/21/2016 06/21/2016 Chronic superficial gastritis without bleeding 0 06/21/2016 06/21/2016 Hypokalemia 02/12/2015 05/06/2015 Tobacco use disorder 10/23/2008 12/19/2011 documented as of this encounter (statuses as of 01/31/2022) [facility] History of Past illness Narrative* Problem Noted Date Resolved Date COPD exacerbation 08/17/2021 08/26/2021 Upper back strain 02/19/2018 02/02/2021 Tubulovillous adenoma polyp of colon 06/21/2016 06/21/2016 Chronic superficial gastritis without bleeding 0 06/21/2016 06/21/2016 Hypokalemia 02/12/2015 05/06/2015 Tobacco use disorder 10/23/2008 12/19/2011 documented as of this encounter (statuses as of 02/07/2022) [facility] History of Past illness Narrative* Problem Noted Date Resolved Date COPD exacerbation 08/17/2021 08/26/2021 Upper back strain 02/19/2018 02/02/2021 Tubulovillous adenoma polyp of colon 06/21/2016 06/21/2016 Chronic superficial gastritis without bleeding 0 06/21/2016 06/21/2016 Hypokalemia 02/12/2015 05/06/2015 Tobacco use disorder 10/23/2008 12/19/2011 documented as of this encounter (statuses as of 02/10/2022) [facility] History of Past illness Narrative* Problem Noted Date Resolved Date COPD exacerbation 08/17/2021 08/26/2021 Upper back strain 02/19/2018 02/02/2021 Tubulovillous adenoma polyp of colon 06/21/2016 06/21/2016 Chronic superficial gastritis without bleeding 0 06/21/2016 06/21/2016 Hypokalemia 02/12/2015 05/06/2015 Tobacco use disorder 10/23/2008 12/19/2011 documented as of this encounter (statuses as of 02/13/2022) [facility] History of Past illness Narrative* Problem Noted Date Resolved Date COPD exacerbation 08/17/2021 08/26/2021 Upper back strain 02/19/2018 02/02/2021 Tubulovillous adenoma polyp of colon 06/21/2016 06/21/2016 Chronic superficial gastritis without bleeding 0 06/21/2016 06/21/2016 Hypokalemia 02/12/2015 05/06/2015 Tobacco use disorder 10/23/2008 12/19/2011 documented as of this encounter (statuses as of 02/15/2022) [facility] Diagnosis Orthostatic hypotension- Primary [facility] Parkinson disease (HCC)- Primary Paralysis agitans Alzheimer's disease (HCC) Alzheimer's disease Visual hallucination Psychophysical visual disturbances Falling Unspecified fall Orthostatic hypotension Obstructive chronic bronchitis without exacerbation (HCC) Obstructive chronic bronchitis without exacerbation Atherosclerosis of [place] coronary artery without angina pectoris, unspecified whether [place] or transplanted heart Hypertensive heart disease with congestive heart failure, unspecified heart failure type ([facility]) Heart failure, unspecified HF chronicity, unspecified heart failure type ([facility]) Anemia, unspecified type Anxiety Anxiety state, unspecified Atrial fibrillation, unspecified type ([facility]) Altered mental status, unspecified altered mental status type- Primary Abnormality of gait Lightheadedness Dizziness and giddiness Orthostatic hypotension Visual hallucinations Psychophysical visual disturbances [facility] Diagnosis Mixed hyperlipidemia- Primary Altered mental status, unspecified altered mental status type Abnormality of gait Lightheadedness Dizziness and giddiness Orthostatic hypotension Visual hallucinations Psychophysical visual disturbances documented in this encounter [facility] note* Diagnosis Controlled type 2 diabetes mellitus without complication, without long-term current use of insulin ([facility])- Primary Essential hypertension, benign Mixed hyperlipidemia Bilateral carotid artery stenosis Occlusion and stenosis of carotid artery without mention of cerebral infarction Chronic diastolic CHF (congestive heart failure) ([facility]) Chronic diastolic heart failure Coronary artery disease due to lipid rich plaque GERD without esophagitis Esophageal reflux Chronic tension-type headache, not intractable Chronic tension type headache Anxiety about health Anemia of chronic disease Anemia of other chronic disease Low serum vitamin B12 Low folate Obesity, Class III, BMI 40-49.9 (morbid obesity) ([facility]) Morbid obesity Current smoker Tobacco use disorder Parkinson disease (HCC) Paralysis agitans Medication management Encounter for long-term (current) use of other medications Prostate disorder Unspecified disorder of prostate Blood pressure instability Other abnormal clinical finding [facility] Diagnosis Bilateral carotid artery stenosis Occlusion and stenosis of carotid artery without mention of cerebral infarction [facility] Diagnosis Anemia of chronic disease Anemia of other chronic disease documented in this encounter [facility] note* Diagnosis Anemia of chronic disease- Primary Anemia of other chronic disease [facility] Diagnosis Onychomycosis- Primary Dermatophytosis of nail [...] complication, without long-term current use of insulin ([facility]) Essential hypertension, benign Mixed hyperlipidemia Bilateral carotid [...] chronic disease Anxiety about health Parkinson disease ([facility]) Paralysis agitans Obesity, Class III, BMI 40-49.9 (morbid obesity) ([facility]) Morbid obesity Orthostatic hypotension Ex-smoker Personal history of tobacco use, presenting hazards to health Low serum vitamin B12 Low folate Benign prostatic hyperplasia with urinary obstruction Bilateral hearing loss, unspecified hearing loss type Advance directive discussed with patient Other specified counseling Medication management Encounter for long-term (current) use of other medications Prostate disorder Unspecified disorder of prostate documented in this encounter [facility] note* Diagnosis Altered mental status, unspecified altered mental status type- Primary Visual hallucinations Psychophysical visual disturbances documented in this encounter [facility] note* Diagnosis Onychomycosis- Primary Dermatophytosis of nail Pain in left foot Pain in limb Pain in toe of right foot Pain in limb Controlled type 2 diabetes mellitus without complication, without long-term current use of insulin (HCC) documented in this encounter [facility] note* Diagnosis Hypoxia- Primary Hypoxemia documented in this encounter [facility] note* Diagnosis Bilateral carotid artery stenosis Occlusion and stenosis of carotid artery without mention of cerebral infarction documented in this encounter [facility] note* Diagnosis Hypoxia Hypoxemia documented in this encounter [facility] for referral (narrative)* Outpatient Procedure (Routine) - Pending Review Specialty Diagnoses / Procedures Referred By Contac t Referred To Contact [facility] Diagnoses Bilateral carotid artery stenosis Procedures US CAROTID ARTERIES KATHERINE VAS LAB DUPLEX SCAN EXTRACRANIAL ART COMPL BI STUDY Jasson Bright MD [address] [place] [address] [facility] [place] [address] [place] [address] Referral ID Status Reason Start Date Expiration Date Visits Requested Visits Authorized [id number] Pending Review Auto-Generat ed Referral 02/17/2022 02/17/2023 1 1 [facility] for referral (narrative)* Diagnostic Procedure Only (Routine) - Pending Review Specialty Diagnoses / Procedures Referred By Contac t Referred To Contact XR IMAGING Diagnoses Ingrowing toenail Procedures XR TOE AP/LAT/OBL LEFT RADEX TOE MINIMUM 2 [place] [address] Xr Imaging Referral ID Status Reason Start Date Expiration Date Visits Requested Visits Authorized [id number] Pending Review Auto-Generat ed Referral 05/22/2022 06/21/2023 1 1 [facility] for referral (narrative)* Outpatient Procedure (Routine) - Pending Review Specialty Diagnoses / Procedures Referred By Contac t Referred To [facility] Diagnoses Bilateral carotid artery stenosis Procedures US CAROTID ARTERIES KATHERINE VAS LAB DUPLEX SCAN EXTRACRANIAL ART COMPL BI STUDY Jasson Bright MD [address] [place] [address] [facility] [place] [address] [place] [id number] Referral ID Status Reason Start Date Expiration Date Visits Requested Visits Authorized [id number] Pending Review Auto-Generat ed Referral 02/01/2023 02/01/2024 1 1 [facility] for referral (narrative)* Outpatient Procedure (Routine) - Authorized Specialty Diagnoses / Procedures Referred By Contac t Referred To Contact [facility] Diagnoses Hypoxia Procedures OXIMETRY WITH AMBULATION NONINVASIVE EAR/PULSE OXIMETRY MULTIPLE DETER Jasson Bright MD [address] [place] [address] [facility] [place] [address] [place] [address] Referral ID Status Reason Start Date Expiration Date Visits Requested Visits Authorized [id number] Authorized Auto-Generat ed Referral 05/17/2023 09/30/[address] [facility] Summary Purpose Family History No Family History Records FoundNo Family History Records Found Advance Directives No Advanced Directives Records FoundDocuments on File Type Date Recorded Patient Senior Litigation Paralegal Expl anation Advance Directive(s) 08/17/2021 12:09 PM Advance Directive(s) 06/21/2016 1:12 PM Advance Directive(s) 06/16/2016 4:19 PM Documents on File Type Date Recorded Patient Senior Litigation Paralegal Expl anation Advance Directive(s) 08/17/2021 12:09 PM Advance Directive(s) 06/21/2016 1:12 PM Advance Directive(s) 06/16/2016 4:19 PM Reason for Referral Specialty Diagnoses / Procedures Referred By Contac t Referred To Contact Neurology Diagnoses Orthostatic hypotension Procedures CONSULT TO NEUROLOGY OFFICE/OUTPATIENT [facility] 60-74 MINUTES Magnolia Perdomo, MEDICAL INSURANCE VERIFIER.STATEMENT CLERK [address] [place] [address] Referral ID Status Reason Start Date Expiration Date Visits Requested Visits Authorized [id number] Authorized PCP Requested Referral 01/12/2022 01/12/2023 1 1 Specialty Diagnoses / Procedures Referred By Contac t Referred To Contact Neurology Diagnoses Altered mental status, unspecified altered mental status type Procedures CONSULT TO NEUROLOGY OFFICE/OUTPATIENT [facility] 60-74 MINUTES Magnolia Perdomo, MEDICAL INSURANCE VERIFIER.STATEMENT CLERK [address] [place] [address] Referral ID Status Reason Start Date Expiration Date Visits Requested Visits Authorized [id number] Authorized PCP Requested Referral 02/09/2022 02/09/2023 1 1 Specialty Diagnoses / Procedures Referred By Contac t Referred To Contact Ent - Otolaryngology Diagnoses Left ear pain Balance disorder Procedures CONSULT TO ENT OFFICE/OUTPATIENT [facility] 60-74 MINUTES Thao Menchaca PA-C [address] [place] [address] Referral ID Status Reason Start Date Expiration Date Visits Requested Visits Authorized [id number] Authorized PCP Requested Referral 01/08/2023 01/08/2024 1 1 Specialty Diagnoses / Procedures Referred By Contac t Referred To Contact Neurology Diagnoses Altered mental status, unspecified altered mental status type Visual hallucinations Procedures CONSULT TO NEUROLOGY OFFICE/OUTPATIENT [facility] 60-74 MINUTES Magnolia Perdomo, MEDICAL INSURANCE VERIFIER.STATEMENT CLERK [address] [place] [address] Referral ID Status Reason Start Date Expiration Date Visits Requested Visits Authorized [id number] Authorized PCP Requested Referral 04/17/2023 04/16/2024 1 1 Additional Source Comments (unrecognized sect ion and content) No Status Records FoundNo Status Records Found INFORMATION SOURCE (unrecogn ized section and content) DATE CREATED AUTHOR AUTHOR'S ORGANIZ ATION 08/20/2023 [facility] Source Comments (unrecognize d section and content) In the event this informatio n is protected by the Federal Confidentiality of Alcohol and Drug Abuse Patient Records regulations: The Federal rules restrict any use of the information to criminally investigate or prosecute any alcohol or drug abuse patient.[facility] event this information is protected by the Federal Confidentiality of Alcohol and Drug Abuse Patient Records regulations: The Federal rules restrict any use of the information to criminally investigate or prosecute any alcohol or drug abuse patient.[facility] the event this information is protected by the Federal Confidentiality of Alcohol and Drug Abuse Patient Records regulations: The Federal rules restrict any use of the information to criminally investigate or prosecute any alcohol or drug abuse patient.[facility] the event this information is protected by the Federal Confidentiality of Alcohol and Drug Abuse Patient Records regulations: The Federal rules restrict any use of the information to criminally investigate or prosecute any alcohol or drug abuse patient.[facility] the event this information is protected by the Federal Confidentiality of Alcohol and Drug Abuse Patient Records regulations: The Federal rules restrict any use of the information to criminally investigate or prosecute any alcohol or drug abuse patient.[facility] the event this information is protected by the Federal Confidentiality of Alcohol and Drug Abuse Patient Records regulations: The Federal rules restrict any use of the information to criminally investigate or prosecute any alcohol or drug abuse patient.[facility] the event this information is protected by the Federal Confidentiality of Alcohol and Drug Abuse Patient Records regulations: The Federal rules restrict any use of the information to criminally investigate or prosecute any alcohol or drug abuse patient.[facility] the event this information is protected by the Federal Confidentiality of Alcohol and Drug Abuse Patient Records regulations: The Federal rules restrict any use of the information to criminally investigate or prosecute any alcohol or drug abuse patient.[facility] the event this information is protected by the Federal Confidentiality of Alcohol and Drug Abuse Patient Records regulations: The Federal rules restrict any use of the information to criminally investigate or prosecute any alcohol or drug abuse patient.[facility] the event this information is protected by the Federal Confidentiality of Alcohol and Drug Abuse Patient Records regulations: The Federal rules restrict any use of the information to criminally investigate or prosecute any alcohol or drug abuse patient.[facility] the event this information is protected by the Federal Confidentiality of Alcohol and Drug Abuse Patient Records regulations: The Federal rules restrict any use of the information to criminally investigate or prosecute any alcohol or drug abuse patient.[facility] the event this information is protected by the Federal Confidentiality of Alcohol and Drug Abuse Patient Records regulations: The Federal rules restrict any use of the information to criminally investigate or prosecute any alcohol or drug abuse patient.[facility] the event this information is protected by the Federal Confidentiality of Alcohol and Drug Abuse Patient Records regulations: The Federal rules restrict any use of the information to criminally investigate or prosecute any alcohol or drug abuse patient.[facility] the event this information is protected by the Federal Confidentiality of Alcohol and Drug Abuse Patient Records regulations: The Federal rules restrict any use of the information to criminally investigate or prosecute any alcohol or drug abuse patient.[facility] the event this information is protected by the Federal Confidentiality of Alcohol and Drug Abuse Patient Records regulations: The Federal rules restrict any use of the information to criminally investigate or prosecute any alcohol or drug abuse patient.[facility] the event this information is protected by the Federal Confidentiality of Alcohol and Drug Abuse Patient Records regulations: The Federal rules restrict any use of the information to criminally investigate or prosecute any alcohol or drug abuse patient.[facility] the event this information is protected by the Federal Confidentiality of Alcohol and Drug Abuse Patient Records regulations: The Federal rules restrict any use of the information to criminally investigate or prosecute any alcohol or drug abuse patient.[facility] the event this information is protected by the Federal Confidentiality of Alcohol and Drug Abuse Patient Records regulations: The Federal rules restrict any use of the information to criminally investigate or prosecute any alcohol or drug abuse patient.[facility] the event this information is protected by the Federal Confidentiality of Alcohol and Drug Abuse Patient Records regulations: The Federal rules restrict any use of the information to criminally investigate or prosecute any alcohol or drug abuse patient.[facility] the event this information is protected by the Federal Confidentiality of Alcohol and Drug Abuse Patient Records regulations: The Federal rules restrict any use of the information to criminally investigate or prosecute any alcohol or drug abuse patient.[facility]In the event this information is protected by the Federal Confidentiality of Alcohol and Drug Abuse Patient Records regulations: The Federal rules restrict any use of the information to criminally investigate or prosecute any alcohol or drug abuse patient.[facility] the event this information is protected by the Federal Confidentiality of Alcohol and Drug Abuse Patient Records regulations: The Federal rules restrict any use of the information to criminally investigate or prosecute any alcohol or drug abuse patient.[facility] the event this information is protected by the Federal Confidentiality of Alcohol and Drug Abuse Patient Records regulations: The Federal rules restrict any use of the information to criminally investigate or prosecute any alcohol or drug abuse patient.[facility]In the event this information is protected by the Federal Confidentiality of Alcohol and Drug Abuse Patient Records regulations: The Federal rules restrict any use of the information to criminally investigate or prosecute any alcohol or drug abuse patient.[facility] the event this information is protected by the Federal Confidentiality of Alcohol and Drug Abuse Patient Records regulations: The Federal rules restrict any use of the information to criminally investigate or prosecute any alcohol or drug abuse patient.[facility] the event this information is protected by the Federal Confidentiality of Alcohol and Drug Abuse Patient Records regulations: The Federal rules restrict any use of the information to criminally investigate or prosecute any alcohol or drug abuse patient.[facility]In the event this information is protected by the Federal Confidentiality of Alcohol and Drug Abuse Patient Records regulations: The Federal rules restrict any use of the information to criminally investigate or prosecute any alcohol or drug abuse patient.[facility]In the event this information is protected by the Federal Confidentiality of Alcohol and Drug Abuse Patient Records regulations: The Federal rules restrict any use of the information to criminally investigate or prosecute any alcohol or drug abuse patient.[facility]In the event this information is protected by the Federal Confidentiality of Alcohol and Drug Abuse Patient Records regulations: The Federal rules restrict any use of the information to criminally investigate or prosecute any alcohol or drug abuse patient.[facility]In the event this information is protected by the Federal Confidentiality of Alcohol and Drug Abuse Patient Records regulations: The Federal rules restrict any use of the information to criminally investigate or prosecute any alcohol or drug abuse patient.[facility]In the event this information is protected by the Federal Confidentiality of Alcohol and Drug Abuse Patient Records regulations: The Federal rules restrict any use of the information to criminally investigate or prosecute any alcohol or drug abuse patient.[facility] HospitalIn the event this information is protected by the Federal Confidentiality of Alcohol and Drug Abuse Patient Records regulations: The Federal rules restrict any use of the information to criminally investigate or prosecute any alcohol or drug abuse patient.[facility] HospitalIn the event this information is protected by the Federal Confidentiality of Alcohol and Drug Abuse Patient Records regulations: The Federal rules restrict any use of the information to criminally investigate or prosecute any alcohol or drug abuse patient.[facility] HospitalIn the event this information is protected by the Federal Confidentiality of Alcohol and Drug Abuse Patient Records regulations: The Federal rules restrict any use of the information to criminally investigate or prosecute any alcohol or drug abuse patient.[facility] HospitalIn the event this information is protected by the Federal Confidentiality of Alcohol and Drug Abuse Patient Records regulations: The Federal rules restrict any use of the information to criminally investigate or prosecute any alcohol or drug abuse patient.[facility] HospitalIn the event this information is protected by the Federal Confidentiality of Alcohol and Drug Abuse Patient Records regulations: The Federal rules restrict any use of the information to criminally investigate or prosecute any alcohol or drug abuse patient.[facility] HospitalIn the event this information is protected by the Federal Confidentiality of Alcohol and Drug Abuse Patient Records regulations: The Federal rules restrict any use of the information to criminally investigate or prosecute any alcohol or drug abuse patient.[facility] HospitalIn the event this information is protected by the Federal Confidentiality of Alcohol and Drug Abuse Patient Records regulations: The Federal rules restrict any use of the information to criminally investigate or prosecute any alcohol or drug abuse patient.[facility] HospitalIn the event this information is protected by the Federal Confidentiality of Alcohol and Drug Abuse Patient Records regulations: The Federal rules restrict any use of the information to criminally investigate or prosecute any alcohol or drug abuse patient.[facility] HospitalIn the event this information is protected by the Federal Confidentiality of Alcohol and Drug Abuse Patient Records regulations: The Federal rules restrict any use of the information to criminally investigate or prosecute any alcohol or drug abuse patient.[facility] HospitalIn the event this information is protected by the Federal Confidentiality of Alcohol and Drug Abuse Patient Records regulations: The Federal rules restrict any use of the information to criminally investigate or prosecute any alcohol or drug abuse patient.[facility] Reason for Visit (unrecogniz ed section and content) Reason Comments Call Request to Dr. Waters Reason Comments Results Reason Comments verbal orders Reason Comments [facility] HH -increased BP Reason Comments [facility] OT- Increased BP Updated OT plan of [...] HIGH MDM 60-74 MINUTES Jasson Bright MD [address] [place] [address] Referral ID Status Reason Start Date Expiration Date V isits Requested Visits Authorized [id number] Closed PCP Requested Referral 02/18/2022 02/18/2023 1 [...] EST PODI DIAB Blake Brown [address] [address] Blake Brown [address] [facility] [place] [address] Referral ID Status Reason Start Date Expiration Date Visits Re quested Visits Authorized [id number] Closed 05/24/2022 09/30/2022 1 1 Reason Onset Date Comments ER F/U [facility] ER follow up 06/25 dx: fall; received [...] 4C EST WELL Thao Menchaca PA-C [address] [place] [address] Jasson Bright MD [address] [place] [address] Referral ID Status Reason Start Date Expiration Date V isits Requested Visits Authorized [id number] Authorized 01/17/2023 09/30/2023 99 99 Reason Onset Date Comments Refill Request 03/01/2023 Reason Comments Requesting Lab Results Reason Comments Appointment Reason Comments Ingrown Toenail Established Patient Pain Diabetic Foot Care Specialty Diagnoses / Procedures Referred By Contac t Referred To Contact Podiatry / PODIATRY Diagnoses Infected abrasion of great toe infected Great toe Procedures CHAN EST PODI AmmyBlake thurston [address] [place] [address] Blake Brown [address] [place] [address] Referral ID Status Reason Start Date Expiration Date Visits Re quested Visits Authorized [id number] Closed 05/15/2023 09/30/2023 1 1 Reason Comments Forms Reason Comments Spirometry Specialty Diagnoses / Procedures Referred By Contac t Referred To Contact [facility] Diagnoses Hypoxia Procedures OXIMETRY WITH AMBULATION NONINVASIVE EAR/PULSE OXIMETRY MULTIPLE DETER Jasson Bright MD [address] [place] [address] Respiratory [place] [address] [place] [address] Referral ID Status Reason Start Date Expiration Date V isits Requested Visits Authorized [id number] Closed Auto-Generate d Referral 05/17/2023 09/30/2023 1 1 Reason Comments Outside Cardiology Care Teams (unrecognized sec tion and content) 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 Start Date End Date Jasson Bright MD [address] [place], [place] [id number] PCP - General Family Practice 02/02/21 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 Start Date End Date Jasson Bright MD [address] [place], [place] [id number] [phone] PCP - General Family Practice 02/02/21 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 Start Date End Date Jasson Bright MD [address] [place], [place] [id number] [phone] PCP - General Family Practice 02/02/21 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 Start Date End Date Jasson Bright MD [address] [place] [address] PCP - General Family Practice 02/02/21 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 Start Date End Date Jasson Bright MD [facility] [place] [address] PCP - General Family Practice 02/02/21 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 Start Date End Date Jasson Bright MD [address] [place] [address], [place] [address] PCP - General Family Practice 02/02/21 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 Start Date End Date Jasson Bright MD [address] [place] [address], [place] [address] PCP - General Family Practice 02/02/21 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 Start Date End Date Jasson Bright MD [address] [place] [address], [place] [address] PCP - General Family Practice 02/02/21 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 Start Date End Date Jasson Bright MD [address] [place] [address], [place] [address] PCP - General Family Practice 02/02/21 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 Start Date End Date Jasson Bright MD [address] [place] [address], [place] [address] PCP - General Family Practice 02/02/21 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 Start Date End Date Jasson Bright MD [address] [place] [address], [place] [address] PCP - General Family Practice 02/02/21 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 Start Date End Date Jasson Bright MD [address] [place] [address], [place] [address] PCP - General Family Practice 02/02/21 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 Start Date End Date Jasson Bright MD [address] [place] [address] PCP - General Family Medicine 02/02/21 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 Start Date End Date Jasson Bright MD [facility] [place] [address] PCP - General Family Medicine 02/02/21 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 Start Date End Date Jasson Bright MD [address] [place] [address], [place] [address] PCP - General Family Medicine 02/02/21 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 Start Date End Date Jasson Bright MD [address] [place] [address], [place] [address] PCP - General Family Medicine 02/02/21 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 Start Date End Date Jasson Bright MD [address] [place] [address], [place] [address] PCP - General Family Medicine 02/02/21 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 Start Date End Date Jasson Bright MD [address] [place] [address], [place] [address] PCP - General Family Medicine 02/02/21 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 Start Date End Date Jasson Bright MD [address] [place] [address], [place] [address] PCP - General Family Medicine 02/02/21 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 Start Date End Date Jasson Bright MD [address] [place] [address], [place] [address] PCP - General Family Medicine 02/02/21 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 Start Date End Date Jasson Bright MD [address] [place] [address] PCP - General Family Medicine 02/02/21 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 Start Date End Date Jasson Bright MD [address] [place] [address] PCP - General Family Medicine 02/02/21 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 Start Date End Date Jasson Bright MD [address] [place] [address] PCP - General Family Medicine 02/02/21 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 Start Date End Date Jasson Bright MD [address] [place] [address] PCP - General Family Medicine 02/02/21 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 [facility]. provides no warranty or guarantee of the accuracy or completeness of information in this document.
[2023-10-01 22:17] VITALS: BMI 32.3
[2023-10-01 22:24] VITALS: BP 157/76; PULSE 65; RESP 18; TEMP 36.4; O2SAT 99
[2023-10-01] MEDS: Lactated Ringers 1,000 ML 125 ML IV (23:13)
[2023-10-01] MEDS: Lisinopril 20 MG Tablet PO (23:14)
[2023-10-01] MEDS: 0.9% Saline Lock 10 ML Syringe IV (23:14)
[2023-10-01] MEDS: Atorvastatin Calcium 20 MG Tablet PO (23:14)
[2023-10-01] MEDS: MethylPREDNISolone 125 MG/2 ML Vial IV (23:15)
[2023-10-01] MEDS: Acetaminophen 325 MG Tablet 650 MG PO (23:28)
[2023-10-01 23:30] VITALS: BP 165/66; PULSE 65; RESP 16; TEMP 36.4; O2SAT 100
[2023-10-01 23:42] LABS: Bedside Glucose 91 mg/dL (74-106)
[2023-10-02 02:42] VITALS: BMI 32.3
[2023-10-02 04:15] VITALS: BP 145/75; PULSE 75; RESP 16; TEMP 36.9; O2SAT 97
[2023-10-02 06:00] VITALS: BP 157/80; PULSE 77; RESP 16; TEMP 36.9; O2SAT 95
[2023-10-02 06:35] LABS: Bedside Glucose 153 mg/dL (74-106)
[2023-10-02] MEDS: Lactated Ringers 1,000 ML 125 ML IV (07:13)
[2023-10-02 07:49] LABS: Absolute Lymphocyte Count 0.51 X10^3/uL (0.83-4.51); Basophil# 0.02 X10^3/uL; Basophil% 0.3 % (0-1); Hematocrit 31.9 % (40-54); Hemoglobin 10.4 g/dL (13.0-16.5); Lymphocyte # 0.51 X10^3/ul (0.83-4.51); Lymphocyte % 7.7 % (19-41); Mean Corp Hgb Conc 32.6 g/dL (32-36); Mean Corpuscular Hgb 31.9 pg (27.0-32.0); Mean Corpuscular Volume 97.9 fL (80-94); Mean Platelet Vol. 9.6 fl (6.2-12.0); Monocyte# 0.06 X10^3/uL; Monocyte% 0.9 % (0-10); NRBC Flagged by Analyzer 0 % (0-5); Neutrophil # 6.01 X10^3/uL (2.7-7.7); Neutrophil % 90.9 % (47-70); POSITIVE DIFFERENTIAL YES; Platelet Count 160 K/mm3 (150-450); RBC Distribution Width CV 14.1 % (11.6-14.6); RBC Distribution Width SD 50.7 fl (35.1-43.9); Red Blood Count 3.26 M/mm3 (4.6-6.2); White Blood Count 6.6 K/mm3 (4.4-11.0)
[2023-10-02] MEDS: MethylPREDNISolone 125 MG/2 ML Vial 60 MG IV (07:50)
[2023-10-02] MEDS: amLODIPine 10 MG Tablet PO (07:50)
[2023-10-02] MEDS: Enoxaparin 40 MG/0.4 ML Syringe SC (07:50)
[2023-10-02] MEDS: Lisinopril 20 MG Tablet PO (07:50)
[2023-10-02 07:51] LABS: Differential Indicated SCAN CRITERIA MET
[2023-10-02 09:09] LABS: AST(SGOT) 19 U/L (15-37); Alanine Aminotransfer ALT/SGPT 23 U/L (16-61); Albumin, Serum 3.5 g/dL (3.2-5.0); Alkaline Phosphatase 110 U/L (45-117); Anion Gap 7 (5-15); BUN 26 mg/dL (7-18); BUN/Creat Ratio 22.2 RATIO (10-20); Calcium,Total 9.2 mg/dL (8.5-10.1); Chloride 111 mmol/L (98-107); Creatinine, Serum 1.17 mg/dL (0.70-1.30); EST Glomerular Filtration Rate 64 mL/min (>60); Est Glom Filt Rate - Afr Amer 77 mL/min (>60); Estimated Creatinine Clearance 49.53 ml/min; Globulin 3.5 g/dL (2.2-4.2); Glucose 152 mg/dL (74-106); Phosphorus 3.4 mg/dL (2.5-4.9); Potassium 4.3 mmol/L (3.5-5.1); Sodium Level 140 mmol/L (136-145); Thyroid Stim Hormone (TSH) 0.37 uIU/mL (0.358-3.74)
[2023-10-02 10:00] VITALS: BP 146/73; PULSE 76; RESP 18; TEMP 36.3; O2SAT 98
[2023-10-02 10:54] VITALS: O2SAT 96; O2SAT 99
[2023-10-02] MEDS: Insulin Lispro 100 UNIT/ML INSULN.PEN SC (11:14)
[2023-10-02 11:28] LABS: Bedside Glucose 242 mg/dL (74-106)
--- NOTE | 2023-10-02 13:25 | PCM.DC.SUM ---
Providers Date of Admission: 10/01/23 Date of Discharge: 10/02/23 Primary Care Physician: Dr. Jasson England MD Reason For Visit: GENERALIZED WEAKNESS WITH AMBULATORY DYSFUNCTION Diagnosis Discharge Diagnosis (1) COPD with acute exacerbation: Status: Chronic Code(s): J44.1 - Chronic obstructive pulmonary disease with (acute) exacerbation (2) Weakness: Status: Acute Code(s): R53.1 - Weakness (3) URI (upper respiratory infection): Status: Acute Code(s): J06.9 - Acute upper respiratory infection, unspecified Qualifiers: URI type: unspecified URI Qualified Code(s): J06.9 - Acute upper respiratory infection, unspecified (4) Fatigue: Status: Acute Code(s): R53.83 - Other fatigue Qualifiers: Fatigue type: unspecified Qualified Code(s): R53.83 - Other fatigue Medications at Discharge Home Medications pantoprazole 40 mg tablet,delayed release 40 mg PO DAILY PRN GERD 10/25/21 amlodipine 10 mg tablet 10 mg PO DAILY 03/26/23 aspirin 81 mg tablet,delayed release (Bertin Low Dose Aspirin) 81 mg PO DAILY HEART HEALTH 08/16/23 atorvastatin 20 mg tablet 20 mg PO QHS #90 tabs 08/16/23 lisinopril 10 mg tablet 20 mg PO BID 08/16/23 albuterol sulfate 90 mcg/actuation aerosol inhaler 1 inh inhalation Q6H PRN shortness of breath or wheezing #6.7 grams 10/02/23 prednisone 10 mg tablet 10 mg PO DAILY #30 tabs 10/02/23 Hospital Course Operations None Procedures EKG and - (CT brain/chest x-ray) Summary of Care Provided Minutes Spent on Discharge: 36 Hospital Course: Mr. Warner is a 78-year-old white male who presented to the emergency department at [facility] [place] on 10/01/2023 complaining of generalized weakness and a fall. Patient reports that his symptoms started about 4 weeks ago prior to admission with an intermittent cough and mild shortness of breath due to suspected upper respiratory tract infection. He reported earlier on the day of presentation he fell asleep and watching television while sitting in his kitchen which resulted him falling down to the floor. He states he woke right up before he hit the ground but his head did hit the floor. He was unable to get up so he called his daughter who called EMS. When EMS arrived they tried to stand him up but he was too weak so they brought him in for further evaluation. He denied any significant symptoms at the time of presentation labs on presentation were unremarkable and vital signs were stable. A CT of his head was performed due to the fall and was unremarkable for any acute findings. Chest x-ray was unremarkable. EKG was unremarkable for any acute findings. He did have some wheezing on exam. COVID and flu are negative. Respiratory viral panel was performed and showed positivity for RSV A, the extensiveness of his wheezing on admission. He was admitted to the medical floor as observation for therapy and continued monitoring. He was placed on IV steroids for his wheezing. He does have a history of COPD and has orders for home oxygen at 2 L nasal cannula however he does not wear this. Again, his oxygen levels were stable on room air. After admission he was maintained on IV steroids and physical and Occupational Therapy were consulted. They evaluated the patient he did quite well with no ongoing needs after discharge and did not recommend commend continued physical therapy at home as an outpatient. He did maintain a wheeze on exam. We did ambulate him and he was 99% on room air at rest and 96% with exertion. He was able to walk over 280 feet with that therapy. Given his wheezing, we did continue a prednisone taper at home and started him on a rescue albuterol HFA with a spacer. Respiratory therapy met with the patient instructed him on use for his albuterol inhaler with spacer prior to discharge. The patient was be able to be discharged back to home at assisted living in stable condition on 10/02/2022. Prescriptions for his medications were sent to his local pharmacy at the time of discharge. I have recommend the patient follow-up with his primary care physician within the next 2 weeks. Discharge diagnoses: Shortness of breath secondary to acute exacerbation of COPD Generalized weakness Fatigue History of Parkinson's disease Osteoarthritis Degenerative disc disease Hypertension Hyperlipidemia DM-2-diet controlled History of atrial fibrillation History of diastolic heart failure-stable CAD GERD Obesity Physical Exam Const alert, oriented x3, no apparent distress and no limitations; Negative for average body habitus or healthy appearing Constitutional Narrative: Older, white male, sitting up in bed dozing off at the time of my arrival however awakens easily to name, appears comfortable and nontoxic, on room air with normal breathing, patient does appear chronically ill General Appearance: cooperative, comfortable, well kempt and well developed Orientation / Consciousness: awake, oriented to person and oriented to time Exam Limitations: no limitations Nutritional Appearance: obese HEENT normocephalic, head/scalp atraumatic and moist oral mucous membranes HEENT Narrative: Mallampati 3, no thrush, mild to moderate hearing loss Eyes PERRL, EOMs intact bilaterally and conjunctivae normal Eyes Narrative: Mild conjunctival pallor bilaterally, no scleral icterus Neck no lymphadenopathy and supple Neck Narrative: Trachea midline, no thyroid enlargement, neck is short and thick Resp normal respiratory effort, no retractions, no use of accessory muscles and No clear to auscultation bilaterally Resp Narrative: Patient with normal respiratory pattern on room air with good oxygen saturations but does have diffuse end expiratory wheeze on exam Auscultation: wheezes; Negative for rales or rhonchi Cardio regular rate, regular rhythm, S1 normal heart sound, S2 normal heart sound, no murmurs, no rub, no gallops and no clicks GI normal to inspection, nondistended, normoactive bowel sounds, soft to palpation and non-tender Extremity no clubbing, cyanosis or edema Extremity Narrative: Pedal pulses are 2+ Skin no rashes or lesions noted, no wounds, skin turgor normal and no jaundice Skin Narrative: No significant ecchymosis noted from fall Neuro oriented x3, CN's II-XII intact bilaterally, moves all extremities and no focal motor deficits Neuro Narrative: Patient with some bradykinesia, speech is slow and deliberate but intelligible, mild generalized weakness proximal greater than distal Speech: Negative for speech normal Psych affect normal Weight / BMI Weight Weight: 99 kg Body Mass Index (BMI) 32.3 ABG / Lab / Microbiology Data 10/02/23 07:35 10/02/23 07:35 Laboratory: Laboratory Results - last 24 hr 10/01/23 18:53: WBC 7.3, RBC 2.94 L, Hgb 9.4 L, Hct 29.0 L, MCV 98.6 H, MCH 32.0, MCHC 32.4, RDW Std Deviation 51.6 H, RDW Coeff of Sophie 14.3, Plt Count 165, MPV 10.1, Immature Gran % (Auto) 0.300, Neut % (Auto) 72.5 H, Lymph % (Auto) 12.7 L, Ball[place] % (Auto) 9.8, Eos % (Auto) 4.2, Baso % (Auto) 0.5, Absolute Neuts (auto) 5.3, Absolute Lymphs (auto) 0.93, Nucleated RBC % 0, Sodium 140, Potassium 4.4, Chloride 110 H, Carbon Dioxide 27.0, Anion Gap 3 L, BUN 32 H, Creatinine 1.35 H, Estim Creat Clear Calc 44.37, Est GFR (MDRD) Af Amer 66, Est GFR (MDRD) Non-Af 54 L, BUN/Creatinine Ratio 23.7 H, Glucose 104, Calcium 8.7 10/01/23 19:40: Urine Color Yellow, Urine Clarity Clear, Urine pH 5.0, Ur Specific [place] 1.015, Urine Protein 30 H, Urine Glucose (UA) Normal, Urine Ketones Negative, Urine Occult Blood 10 H, Urine Nitrite Negative, Urine Bilirubin Negative, Urine Urobilinogen Normal, Ur Leukocyte Esterase Negative, Urine RBC 0 SEEN, Urine WBC 0-5 SEEN, Ur Squamous Epith Cells 0 SEEN, Urine Bacteria 0 SEEN, Urine Mucus 0 SEEN 10/01/23 23:12: POC Glucose 91 10/02/23 06:16: POC Glucose 153 H 10/02/23 07:35: WBC 6.6, RBC 3.26 L, Hgb 10.4 L, Hct 31.9 L, MCV 97.9 H, MCH 31.9, MCHC 32.6, RDW Std Deviation 50.7 H, RDW Coeff of Sophie 14.1, Plt Count 160, MPV 9.6, Immature Gran % (Auto) 0.200, Neut % (Auto) 90.9 H, Lymph % (Auto) 7.7 L, Ballard % (Auto) 0.9, Eos % (Auto) 0.0, Baso % (Auto) 0.3, Absolute Neuts (auto) 6.0, Absolute Lymphs (auto) 0.51 L, Nucleated RBC % 0, Differential Comment COMMENT, Sodium 140, Potassium 4.3, Chloride 111 H, Carbon Dioxide 22.0, Anion Gap 7, BUN 26 H, Creatinine 1.17, Estim Creat Clear Calc 49.53, Est GFR (MDRD) Af Amer 77, Est GFR (MDRD) Non-Af 64, BUN/Creatinine Ratio 22.2 H, Glucose 152 H, Calcium 9.2, Phosphorus 3.4, Total Bilirubin 0.60, AST 19, ALT 23, Alkaline Phosphatase 110, Total Protein 7.0, Albumin 3.5, Globulin 3.5, Albumin/Globulin Ratio 1.0, TSH 0.37 10/02/23 11:09: POC Glucose 242 H Microbiology: Microbiology 10/01/23 21:06 Nasal Secretion SARS-CoV-2 & FLU Antigen (Rapid) - Final Radiography Diagnostic Testing: Radiology Impression Brain CT 10/01/23 18:44 IMPRESSION: 1. Stable exam. 2. No intracranial evidence of acute traumatic injury. 3. Mild involutional changes. 4. No intracranial mass, hemorrhage or acute territorial infarct. 5. No fractures noted. 6. No radiographically significant sinus disease.. Electronically Signed: Diogo Whipple MD at 20:23 EST , Chest X-Ray 10/01/23 19:20 IMPRESSION: 1. No evidence of acute cardiopulmonary process Electronically Signed: Diogo Whipple MD at 20:37 EST , D/C Instructions Discharge Diet: Low fat / Low cholesterol Discharge Activity: Return to Normal Activity Meaningful Use Info Meaningful Use Diagnoses (Choose all that apply): None applicable Discharge Plan Admission Admit Date/Time: 10/01/23 21:26 Primary Reason for Your Visit: Generalized weakness/fall Attending Provider: Loir Altamirano Primary Care Provider: Jasson England Consulting Providers: Marcelo Padilla Instructions Additional Instructions / Restrictions: 1. Please continue to use the incentive spirometry and Acapella for the next 2 weeks 2. Please use your albuterol inhaler with spacer as directed by a respiratory therapist while hospitalized and as needed 3. Your respiratory virus panel showed that you have RSV A which is likely why you have some shortness of breath and some wheezing. Steroids should help this. We did check your oxygen levels and you did not require any oxygen at rest or with moving around. If you note that your oxygen levels do drop below 88% consistently please return back to the emergency department. Your oxygen levels at discharge were 99% while you are resting and 96% when you are moving around. Discharge Orders/Prescriptions Prescriptions: New albuterol sulfate 90 mcg/actuation HFA aerosol inhaler 1 inh inhalation Q6H PRN (Reason: shortness of breath or wheezing) Qty: 6.7 0RF prednisone 10 mg tablet 10 mg PO DAILY Qty: 30 0RF Rx Instructions: 4 tablets x 3 days, 3 tablets x 3 days, 2 tablets x 3 days, 1 tablet x 3 days Continued atorvastatin 20 mg tablet 20 mg PO QHS Qty: 90 3RF aspirin [Bertin Low Dose Aspirin] 81 mg tablet,delayed release (DR/EC) 81 mg PO DAILY pantoprazole 40 mg tablet,delayed release (DR/EC) 40 mg PO DAILY PRN (Reason: GERD) amlodipine 10 mg tablet 10 mg PO DAILY lisinopril 10 mg tablet 20 mg PO BID Referrals / Follow Up: Jasson England MD [Primary Care Provider] - Within 2 Weeks Disposition Disposition (needs filled in before D/C Order can be placed): Assisted Living Charges/Coding Visit Charges Inpatient E&M: 64977 Disch Hosp >30min
[2023-10-02 13:45] VITALS: BP 148/62; PULSE 74; RESP 18; TEMP 36.6; O2SAT 98
--- NOTE | 2023-10-02 14:44 | CASEMGMT ---
RN CM Discharge Note This RN CM to room at this time regarding DC assistance. Pt states that he is comfortable going home alone now. Pt states he lives in a single story apartment with no steps or stairs and that he is independent. Pt states that he has a walker and a cane at home and will utilize the walker. Pt states he manages his own medications. Pt reports that he has thought about outpt therapy but states he does not need that setup at this time. Son Barry RN CM
== END 2023-10-02 15:31 | disposition home or self-care (01) ==
LOC: ED 20:41 → MS3 10-02 07:02
PROVIDERS: Admitting Provider Internal Medicine; Emergency Provider Emergency Medicine; PCP Family Medicine; Visit Provider Internal Medicine
DX: J44.1 Chronic obstructive pulmonary disease with (acute) exacerbation (principal); I11.0 Hypertensive heart disease with heart failure; I50.32 Chronic diastolic (congestive) heart failure; E11.9 Type 2 diabetes mellitus without complications; G20.A1 Parkinson's disease without dyskinesia, without mention of fluctuations; E66.9 Obesity, unspecified; M47.819 Spondylosis without myelopathy or radiculopathy, site unspecified; F41.1 Generalized anxiety disorder; Z87.891 Personal history of nicotine dependence; K21.9 Gastro-esophageal reflux disease without esophagitis; I25.10 Atherosclerotic heart disease of native coronary artery without angina pectoris; S09.90XA Unspecified injury of head, initial encounter; E78.5 Hyperlipidemia, unspecified; W19.XXXA Unspecified fall, initial encounter; Z79.82 Long term (current) use of aspirin; Z79.899 Other long term (current) drug therapy; Z68.32 Body mass index [BMI] 32.0-32.9, adult; J06.9 Acute upper respiratory infection, unspecified; B97.4 Respiratory syncytial virus as the cause of diseases classified elsewhere; Z99.81 Dependence on supplemental oxygen
CPT/HCPCS: 36415; 70450; 71046; 80048; 80053; 81001; 82962; 84100; 84443; 85025; 87428; 87633; 93005; 94640; 96361; 96374; 97161; 97165; 99221; 99285; J7120; A4216; G0378

== ENCOUNTER 2023-11-19 09:30 | Inpatient (IN) | payer MEDICARE, SELFPAY ==
[2023-11-19] VITALS (7 sets, daily range): BP systolic 127–159; BP diastolic 49–95; PULSE 57–64; RESP 14–18; TEMP 35.6–36.5; O2SAT 98–100; BMI 36.6; BMI 31.4
--- NOTE | 2023-11-19 09:43 | EKG12_ITS ---
Test Reason : FALL Blood Pressure : / mmHG Vent. Rate : 057 BPM Atrial Rate : 000 BPM P-R Int : 000 ms QRS Dur : 088 ms QT Int : 452 ms P-R-T Axes : 000 040 051 degrees QTc Int : 439 ms Sinus bradycardia with 1st degree AV block Nonspecific ST and T wave abnormality Abnormal ECG Confirmed by BLAIRE DUMONT, RAHAT ([id number]), script editor VAUGHN KENT ([id number]) on 11/20/2023 9:43:24 AM Referred By: Confirmed By:RAHAT RUDD MD
--- NOTE | 2023-11-19 09:45 | EX.ED.DYSGE1 ---
HPI History of Present Illness Chief Complaint: Fall Informant: patient and EMS Narrative Narrative: Patient is a 78-year-old male with extensive medical history including heart failure, COPD, atrial fibrillation, degenerative disc disease, hyperlipidemia and prior history of rhabdomyolysis presenting for fall. Apparently patient states that he was getting out of the chair this morning when the chair broke and this caused him to fall. He states he laid on the ground for 5 to 10 minutes until his sister found him. Per EMS report patient been on the ground for at least an hour when his sister found him. Patient she was complaining of right hip pain but is now complaining more of left hip pain. He is noted by nursing staff to have a wet cough but he currently denies any acute complaints. Does live home alone. Chart review does show that he most recently was admitted at the beginning of October (month and a half ago) for COPD exacerbation. [facility] Medical History Acute respiratory failure with hypoxia Altered mental status Anemia Anemia Anemia Anxiety Atherosclerotic heart disease of bois forte coronary artery without angina pectoris Atrial fibrillation Back pain Chest pain CHF (congestive heart failure) CHI (closed head injury) Congestive heart failure (CHF) COPD exacerbation Coronary artery disease Degenerative disc disease, lumbar Degenerative disk disease Delirium Diabetes Essential hypertension Former smoker GERD (gastroesophageal reflux disease) Hallucinations HLD (hyperlipidemia) Hypertension Hypertensive urgency Hypoxia Lower extremity edema Macrocytic anemia On home oxygen therapy Orthostatic hypotension Parkinson's disease Presence of stent in coronary artery (~05/12/21) Short-term memory loss Syncope Vertigo Home Medications pantoprazole 40 mg tablet,delayed release 40 mg PO DAILY PRN GERD 10/25/21 [History Last Taken Unknown] amlodipine 10 mg tablet 10 mg PO DAILY 03/26/23 [History Last Taken Unknown] aspirin 81 mg tablet,delayed release (Bertin Low Dose Aspirin) 81 mg PO DAILY HEART HEALTH 08/16/23 [History Last Taken Unknown] atorvastatin 20 mg tablet 20 mg PO QHS #90 tabs 08/16/23 [Rx Last Taken Unknown] lisinopril 10 mg tablet 20 mg PO BID 08/16/23 [History Last Taken Unknown] albuterol sulfate 90 mcg/actuation aerosol inhaler 1 inh inhalation Q6H PRN shortness of breath or wheezing #6.7 grams 10/02/23 [Rx Last Taken Unknown] prednisone 10 mg tablet 10 mg PO DAILY #30 tabs 10/02/23 [Rx Last Taken Unknown] Allergy/AdvReac Type Severity Reaction Status Date / Time No Known Allergies Allergy Verified 11/19/23 09:30 Surgical History History of coronary artery stent placement Presence of coronary angioplasty implant and graft (~05/12/21) Social History household members: spouse Smoking Status: Former smoker alcohol intake: never substance use type: does not use ROS ROS ED ROS Narrative Review of systems limited secondary to patient's mental status, confusion Constitutional Constitutional ED: Denies chills or fever(s) Cardiovascular Cardiovascular: Denies chest pain Respiratory/Chest Respiratory/Chest: Reports cough; Denies dyspnea Musculoskeletal Musculoskeletal: Reports other Details: hip pain Integumentary Denies Abrasions or rash Neurologic Neurologic: Denies headache(s) Hematologic/Lymphatic Hematologic/Lymphatic: Denies easy bleeding or easy bruising EXAM Physical Exam Const Vital Signs: 11/19/23 09:31 11/19/23 09:46 11/19/23 12:15 Temperature 96.0 F L Temperature Source Temporal Pulse Rate 57 L 58 L Respiratory Rate 16 14 Respiratory Effort Normal Blood Pressure 152/67 H 150/66 H Blood Pressure Mean 95 94 Pulse Ox 99 99 99 Oxygen Delivery Method Room Air Room Air Positive well nourished and well developed General Appearance ED: well developed and NAD HEENT Reports TM's clear and dry mucous membranes Negative for trauma Tympanic Membrane ED: Yes TM's clear Mouth ED: Yes dry mucous membranes Mouth: dry mucous membranes Eyes PERRL and EOMs intact bilaterally Neck supple and no JVD General: Negative for tenderness Chest Wall inspection of chest normal and palpation of chest normal Resp normal respiratory effort Auscultation: diminished lung sounds bilateral lower Cardio regular rate, regular rhythm and no murmurs GI normal to inspection, nondistended, normoactive bowel sounds and non-tender Back/Spine no CVA tenderness Cervical Spine: Negative for cervical spine tenderness Thoracic Spine / Upper Back: Negative for thoracic spinal tenderness Lumbar Spine / Lower Back: Negative for lumbar spinal tenderness Extremity normal to inspection Extremity Narrative: Trace pitting edema- pedal Mild pain to palpation of the left hip with range of motion. Pelvis is stable. No pain with range of motion of the right hip. No other bony deformity or tenderness appreciated. General Extremety ED: Yes edema General Extremity: edema Neuro oriented x3 Neuro Narrative: Slow to respond. No focal neurologic deficits appreciated Sensorium / Orientation: alert; Negative for lethargic Motor Exam: general weakness Psych mental status grossly normal Skin no rashes or lesions noted and no wounds MDM MDM MDM Narrative Medical decision making narrative: Patient is evaluated for fall and found on the ground. Patient does seem somnolent and slow to respond but does not have any focal logic deficits. Differential includes intracranial hemorrhage, metabolic encephalopathy, urinary tract infection, hip fracture, rhabdomyolysis. I spoke with the patient's daughter, Libia. She states that it was the patient's [id number] who lives next-door that actually found him this morning. Apparently patient had no acute symptoms or recent medication changes except over the past few days he has been staying up all night and then in the morning been more confused and sleeping during the day. He has appointment to see neurology, Dr. Jarvis, this coming Sunday for concern that he might have the start of dementia, Parkinson's or some other disorder. No report of any recent fever, cough or other concerns. Family states they would like to keep him home as long as they can but as long as it safely done. Patient's workup is largely normal with no acute cause of his symptoms however patient remained somnolent in the ER. We are not able to get him up to ambulate him. Will be admitted for further evaluation for this mental status change, weakness and possible delirium. Case is discussed with hospitalist, Dr. Noonan. I also spoke with his daughter Libia again to confirm updated her on plan of care. Patient does not have any further hypoglycemia after given p.o. in the emergency room so I do not think this is symptomatic hypoglycemia. Creatinine is near his baseline (currently 1.35 baseline appears to be 1.17). He does not clinically appear dehydrated will defer IV fluids at this time. He has a mild but stable anemia with a hemoglobin of 9.8. Low suspicion for any active bleeding. ABG obtained is very slightly acidotic with a pH of 7.31 and metabolic in nature. His anion gap however is normal at 5. This is of uncertain clinical significance. CPK is only mildly elevated at 426 so not particularly consistent with rhabdomyolysis. Urinalysis is not consistent with infection. Not clear if there is an underlying metabolic etiology, worsening dementia/delirium or psychiatric issue that is causing his presentation today. He also appears to recently been suffering from insomnia so he could just be extremely tired if he did not sleep last night. Lab Data Attestation: I reviewed the patient's lab results. Labs: Laboratory Results - last 24 hr 11/19/23 11/19/23 11/19/23 09:47 10:00 10:15 WBC 6.2 RBC 3.16 L Hgb 9.8 L Hct 30.4 L MCV 96.2 H MCH 31.0 MCHC 32.2 RDW Std Deviation 51.2 H RDW Coeff of Sophie 14.6 Plt Count 125 L MPV 10.9 Immature Gran % (Auto) 0.300 Neut % (Auto) 74.9 H Lymph % (Auto) 15.3 L [place] % (Auto) 6.6 Eos % (Auto) 2.4 Baso % (Auto) 0.5 Absolute Neuts (auto) 4.7 Absolute Lymphs (auto) 0.95 Nucleated RBC % 0 Sodium 145 Potassium 4.7 Chloride 117 H Carbon Dioxide 23.0 Anion Gap 5 BUN 45 H Creatinine 1.35 H Estim Creat Clear Calc 54.86 Est GFR (MDRD) Af Amer 66 Est GFR (MDRD) Non-Af 54 L BUN/Creatinine Ratio 33.3 H Glucose 76 Calcium 9.1 Total Bilirubin 0.60 AST 33 ALT 33 Alkaline Phosphatase 113 Total Creatine Kinase 426 H Total Protein 6.8 Albumin 3.7 Globulin 3.1 Albumin/Globulin Ratio 1.2 Urine Color Yellow Urine Clarity Clear Urine pH 5.0 Ur Specific [place] 1.020 Urine Protein Negative Urine Glucose (UA) Normal Urine Ketones 5 H Urine Occult Blood Negative Urine Nitrite Negative Urine Bilirubin Negative Urine Urobilinogen Normal Ur Leukocyte Esterase Negative Urine RBC 0-5 SEEN Urine WBC 0-5 SEEN Ur Squamous Epith Cells 0 SEEN Urine Bacteria 0 SEEN Urine Mucus 0 SEEN POC Glucose 68 L 11/19/23 11/19/23 10:42 12:00 WBC RBC Hgb Hct MCV MCH MCHC RDW Std Deviation RDW Coeff of Sophie Plt Count MPV Immature Gran % (Auto) Neut % (Auto) Lymph % (Auto) [place] % (Auto) Eos % (Auto) Baso % (Auto) Absolute Neuts (auto) Absolute Lymphs (auto) Nucleated RBC % Sodium Potassium Chloride Carbon Dioxide Anion Gap BUN Creatinine Estim Creat Clear Calc Est GFR (MDRD) Af Amer Est GFR (MDRD) Non-Af BUN/Creatinine Ratio Glucose Calcium Total Bilirubin AST ALT Alkaline Phosphatase Total Creatine Kinase Total Protein Albumin Globulin Albumin/Globulin Ratio Urine Color Urine Clarity Urine pH Ur Specific [place] Urine Protein Urine Glucose (UA) Urine Ketones Urine Occult Blood Urine Nitrite Urine Bilirubin Urine Urobilinogen Ur Leukocyte Esterase Urine RBC Urine WBC Ur Squamous Epith Cells Urine Bacteria Urine Mucus POC Glucose 86 103 ABG Data ABG results: ABG 11/19/23 10:04 Specimen Type ART Sample Site L Radial pH 7.31 L Bicarbonate Actual 20.7 L Total CO2 22 Base Excess -6 L O2 Saturation 97 ABG pCO2 41.3 ABG pO2 97 Jus Test Positive O2 Delivery Device Room Air Vent Mode Not entered Radiography Diagnostic Testing: Clinical Impression(s) from Imaging Studies Brain CT 11/19/23 10:25 IMPRESSION: Chronic involutional changes of the brain. Partial opacification of the ethmoid sinuses. Electronically Signed: Bhaskar Dyson MD at 10:43 EST , Cervical Spine CT 11/19/23 10:25 IMPRESSION: No significant abnormality is seen. Electronically Signed: Bhaskar Dyson MD at 10:48 EST , Chest X-Ray 11/19/23 10:30 IMPRESSION: Scattered calcified granulomas. No acute abnormality is seen. Electronically Signed: Bhaskar Dyson MD at 10:50 EST , Hip/Pelvis X-Ray 11/19/23 10:30 IMPRESSION: No acute abnormality is seen. Electronically Signed: Bhaskar Dyson MD at 11:10 EST , Rhythm Strip Rhythm Strip: junctional Rate: 57 Ectopy: None EKG Initial EKG: Attestation: I personally reviewed and interpreted this EKG as follows: Interpretation: Junctional Comments: Junctional rhythm at a rate of 57 bpm Normal axis Normal intervals Normal ST segments Compared to prior EKG patient is junctional rhythm instead of sinus bradycardia Management Discussion w/another healthcare provider: Hospitalist Discharge Plan Dx/Rx/DC Orders Clinical Impression: Acute alteration in mental status, Fall Disposition Disposition: Acute Care Hospital [facility] Discharge Date/Time: 11/19/23 13:00
[2023-11-19 10:06] LABS: Bedside Glucose 68 mg/dL (74-106)
[2023-11-19 10:08] LABS: Allen Test Positive; Base Excess -6 mmol/L (-2 to +2); Bicarbonate 20.7 mmol/L (22-26); Blood Gas Specimen Type ART; Mode Not entered; O2 Delivery Device Room Air; PO2 97 mmHG (75-100); SITE L Radial; SO2 97 % (95-99); Total Carbon Dioxide 22 mmol/L; pCO2 41.3 mmHg (35-45); pH 7.31 (7.35-7.45)
[2023-11-19 10:14] LABS: Absolute Lymphocyte Count 0.95 X10^3/uL (0.83-4.51); Absolute Neutrophil Count 4.7 X10^3/uL (2.0-7.7); Basophil# 0.03 X10^3/uL; Basophil% 0.5 % (0-1); Eosinophil# 0.15 X10^3/uL; Eosinophils% 2.4 % (0-5); Hematocrit 30.4 % (40-54); Hemoglobin 9.8 g/dL (13.0-16.5); Lymphocyte # 0.95 X10^3/ul (0.83-4.51); Lymphocyte % 15.3 % (19-41); Mean Corp Hgb Conc 32.2 g/dL (32-36); Mean Corpuscular Volume 96.2 fL (80-94); Mean Platelet Vol. 10.9 fl (6.2-12.0); Monocyte# 0.41 X10^3/uL; Monocyte% 6.6 % (0-10); NRBC Flagged by Analyzer 0 % (0-5); Neutrophil # 4.65 X10^3/uL (2.7-7.7); Neutrophil % 74.9 % (47-70); Platelet Count 125 K/mm3 (150-450); RBC Distribution Width CV 14.6 % (11.6-14.6); RBC Distribution Width SD 51.2 fl (35.1-43.9); Red Blood Count 3.16 M/mm3 (4.6-6.2); White Blood Count 6.2 K/mm3 (4.4-11.0)
[2023-11-19 10:24] LABS: Bacteria 0 SEEN /hpf (None Seen); Mucous, Urine 0 SEEN /hpf (<or=2+); Squamous Epithelial Cells - UA 0 SEEN /hpf (0-5)
[2023-11-19 10:25] LABS: Color, Urine Yellow (Yellow); Glucose, Dipstick Normal (Normal); Ketone-Dipstick 5 mg/dl (Negative); Leukocyte Esterase-Dipstick Negative /ul (Negative); Nitrite-Dipstick Negative (Negative); Occult Blood-Urine Negative /ul (Negative); Protein-Dipstick Negative (Negative); Urine Bilirubin Dipstick Negative (Negative); Urine Clarity Clear (Clear); Urine Urobilinogen Normal (Normal)
--- NOTE | 2023-11-19 10:25 | CT_ITS ---
STUDY: CT BRAIN WITHOUT CONTRAST REASON FOR EXAM: Male, 78 years old. Head trauma. RADIATION DOSAGE (If Supplied By Facility): CTDIvol = ( 44.99 ) mGy, DLP = ( 914.22 ) mGycm TECHNIQUE: Transaxial CT imaging of the brain was performed without administration of intravenous contrast material. Individualized dose optimization techniques were used for this CT. COMPARISON: Comparison is made with prior study dated October 01, 2023. FINDINGS: Normal soft tissue structures. Normal calvarium. There is moderate cerebral atrophy with widening of the extra-axial spaces and ventricular dilatation. Normal white matter tracts of the cerebral hemispheres. Normal basal ganglia and thalami. Normal brainstem. Normal cerebellum. There is no intracranial hemorrhage. There are no findings of an acute ischemic infarction. There is calcification of the vertebral arteries and cavernous portions of the internal carotid arteries bilaterally. Partial opacification of the ethmoid sinuses. CT/Brain/Head without Contrast IMPRESSION: Chronic involutional changes of the brain. Partial opacification of the ethmoid sinuses. Electronically Signed: Bhaskar Dyson MD at 10:43 EST ,
--- NOTE | 2023-11-19 10:25 | CT_ITS ---
STUDY: CT CERVICAL SPINE WITHOUT CONTRAST REASON FOR EXAM: Male, 78 years old. Cervical trauma due to a fall. RADIATION DOSAGE (If Supplied By Facility): CTDIvol = ( 32.68 ) mGy, DLP = ( 736.58 ) mGycm TECHNIQUE: High resolution transaxial imaging was performed without contrast material. Sagittal and coronal images were reconstructed. Individualized dose optimization techniques were used for this CT. COMPARISON: Comparison is made with prior study dated June 25, 2022. FINDINGS: Normal craniovertebral junction. Normal anterior atlantoaxial articulation. Normal odontoid process. Normal cervical lordosis. Normal vertebral bodies and posterior osseous elements. C2-3: Normal endplates. Normal disc height and morphology. Normal central canal and intervertebral neuroforamina. C3-4: Normal endplates. Normal disc height and morphology. Normal central canal and intervertebral neuroforamina. C4-5: Normal endplates. Normal disc height and morphology. Normal central canal and intervertebral neuroforamina. C5-6: Normal endplates. Normal disc height and morphology. Normal central canal and intervertebral neuroforamina. C6-7: Normal endplates. Normal disc height and morphology. Normal central canal and intervertebral neuroforamina. C7-T1: Normal endplates. Normal disc height and morphology. Normal central canal and intervertebral neuroforamina. Once again, dense atherosclerotic calcifications seen in the carotid bifurcations bilaterally. Calcification of the aortic arch. CT/Spine Cervical without Contras IMPRESSION: No significant abnormality is seen. Electronically Signed: Bhaskar Dyson MD at 10:48 EST ,
--- NOTE | 2023-11-19 10:30 | RAD_ITS ---
STUDY: X-RAY CHEST REASON FOR EXAM: Male, 78 years old. Cough TECHNIQUE: Single AP portable view of the chest. COMPARISON: Comparison is made with prior study dated October 01, 2023. FINDINGS: EKG electrodes are seen. Hyperinflation. Scattered calcified granulomas. No acute abnormality is seen. There is no demonstrated pleural abnormality. Normal size heart. Normal mediastinum and vandana. Normal visualized pulmonary arteries. There is atherosclerotic calcification of the aortic arch with tortuosity. There are degenerative changes of the visualized thoracic spine. Normal visualized ribs, clavicles, and shoulders. There is no demonstrated abnormality of the visualized soft tissue structures of the upper abdomen. RAD/Chest 1 View (Portable) IMPRESSION: Scattered calcified granulomas. No acute abnormality is seen. Electronically Signed: Bhaskar Dyson MD at 10:50 EST ,
--- NOTE | 2023-11-19 10:30 | RAD_ITS ---
STUDY: X-RAY - PELVIS AND BILATERAL HIPS (/CHILD) REASON FOR EXAM: Male, 78 years old. Pain, fall TECHNIQUE: Minimum 2 views of the pelvis and hips. COMPARISON: None. FINDINGS: There is a non-specific bowel gas pattern. There are multiple calcified phleboliths. There are atherosclerotic vascular calcifications. Normal bilateral iliac wings, sacroiliac joints and visualized sacrum. Normal bilateral superior and inferior pubic rami. There are degenerative changes of the pubic symphysis with articular narrowing and sclerosis. Normal bilateral ischial tuberosities. Normal visualized right femoral head. Normal right acetabulum. Normal right hip joint. Normal visualized left femoral head. Normal left acetabulum. Normal left hip joint. RAD/Hips B/L min 2 views w/ Pelvis IMPRESSION: No acute abnormality is seen. Electronically Signed: Bhaskar Dyson MD at 11:10 EST ,
[2023-11-19 10:34] LABS: ALB/GLOB Ratio 1.2 RATIO (0.9-2.4); AST(SGOT) 33 U/L (15-37); Alanine Aminotransfer ALT/SGPT 33 U/L (16-61); Albumin, Serum 3.7 g/dL (3.2-5.0); Alkaline Phosphatase 113 U/L (45-117); Anion Gap 5 (5-15); BUN 45 mg/dL (7-18); BUN/Creat Ratio 33.3 RATIO (10-20); CPK Total, Creatine Kinase 426 U/L (39-308); Calcium,Total 9.1 mg/dL (8.5-10.1); Chloride 117 mmol/L (98-107); Creatinine, Serum 1.35 mg/dL (0.70-1.30); EST Glomerular Filtration Rate 54 mL/min (>60); Est Glom Filt Rate - Afr Amer 66 mL/min (>60); Estimated Creatinine Clearance 54.86 ml/min; Globulin 3.1 g/dL (2.2-4.2); Glucose 76 mg/dL (74-106); Potassium 4.7 mmol/L (3.5-5.1); Protein, Total 6.8 g/dL (6.4-8.2); Sodium Level 145 mmol/L (136-145)
[2023-11-19 10:35] LABS: Red Blood Cells-Urine 0-5 SEEN /hpf (0-5); White Blood Cells 0-5 SEEN /hpf (0-5)
[2023-11-19 11:07] LABS: Bedside Glucose 86 mg/dL (74-106)
--- NOTE | 2023-11-19 12:12 | ED.RN ---
RN AND VAT CLEANER AT THE BEDSIDE TO AMBULATE PATIENT. PT NOT RESPONDING TO VAT CLEANER RN CALLS PT'S NAME MULTIPLE TIMES ASKING PATIENT TO OPEN EYES, PATIENT WILL NOT. RN STERNAL RUBS PATIENT'S CHEST, PT THEN DOES A SWINGING MOTION WITH HIS ARM. RN STATES TO PATIENT THAT DR WANTS TO KNOW IT PATIENT CAN AMBULATE TO SEE IF HE IS ELIGIBLE FOR DISCHARGE. PT PRETENDS TO SWING AT STAFF AGAIN. RN STATES THAT IF PATIENT CAN'T, OR IS REFUSING TO AMBULATE PT WILL BE ADMITTED TO THE HOSPITAL AND PATIENTS STATES THAT IS WHAT HE WANTS. DR TRAYLOR NOTIFIED AT THIS TIME.
--- NOTE | 2023-11-19 12:17 | PCM.HP.STD ---
HPI - General General Date of Admission: 11/19/23 Date of Service: 11/19/23 Chief Complaint: mechanical fall HPI Narrative KERRY VALDES, is a 78 M with an extensive PMH as outlined who presents via the ED on 11/19/2023 with a complaint of mechanical fall. He lives at home alone and was trying to get out of his chair this morning and fell. His sister in law found him on the floor today. He was supposedly on the ground for about an hour. He complained of bilateral hip paiin, but had no other complaints. He was noted to be quite somnolent. HE had no fever, chills, cough, chest pain, palpitations, dizziness, nausea, vomiting or any other symptoms. Review of systems was otherwise negative. Vitals in the ED were BP of 150/66, DE of 58, RR of 14 and he was saturating at 99% on room air. CBC showed hb of 9.8, wbc of 6.2 and platelets of 125. Chemistry shows sodium of 145 with bicarb of 23 and creatinine of 1.35. CPK was not elevated. X-ray of the hip and pelvis and cervical spine CT showed no evidence of fracture. CT of the brain showed no acute intracranial pathology and chest x-ray showed no acute cardiopulmonary process. He has been admitted to be managed for debility due to mechanical fall. According to family, patient had been having signs and symptoms which pointed towards possible dementia and so he was due to see neurology on outpatient basis this week. Patient couldnt give much of a history and history was as received mainly from ED doctor. 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 Atrial fibrillation Back pain Chest pain CHF (congestive heart failure) CHI (closed head injury) Congestive heart failure (CHF) COPD exacerbation Coronary artery disease Degenerative disc disease, lumbar Degenerative disk disease Delirium Diabetes Essential hypertension Former smoker GERD (gastroesophageal reflux disease) Hallucinations HLD (hyperlipidemia) Hypertension Hypertensive urgency Hypoxia Lower extremity edema Macrocytic anemia On home oxygen therapy Orthostatic hypotension Parkinson's disease Presence of stent in coronary artery (~05/12/21) Short-term memory loss Syncope Vertigo Home Medications pantoprazole 40 mg tablet,delayed release 40 mg PO DAILY PRN GERD 10/25/21 [History Last Taken Unknown] amlodipine 10 mg tablet 10 mg PO DAILY 03/26/23 [History Last Taken Unknown] aspirin 81 mg tablet,delayed release (Bertin Low Dose Aspirin) 81 mg PO DAILY HEART HEALTH 08/16/23 [History Last Taken Unknown] atorvastatin 20 mg tablet 20 mg PO QHS #90 tabs 08/16/23 [Rx Last Taken Unknown] lisinopril 10 mg tablet 20 mg PO BID 08/16/23 [History Last Taken Unknown] albuterol sulfate 90 mcg/actuation aerosol inhaler 1 inh inhalation Q6H PRN shortness of breath or wheezing #6.7 grams 10/02/23 [Rx Last Taken Unknown] prednisone 10 mg tablet 10 mg PO DAILY #30 tabs 10/02/23 [Rx Last Taken Unknown] Allergy/AdvReac Type Severity Reaction Status Date / Time No Known Allergies Allergy Verified 11/19/23 09:30 Surgical History History of coronary artery stent placement Presence of coronary angioplasty implant and graft (~05/12/21) Social History household members: spouse Smoking Status: Former smoker alcohol intake: never substance use type: does not use ROS Review of Systems ROS Unobtainable: due to encephalopathy Vital Signs Vital Signs Vital Signs: 11/19/23 09:31 11/19/23 09:46 11/19/23 12:15 Temperature 96.0 F L Temperature Source Temporal Pulse Rate 57 L 58 L Respiratory Rate 16 14 Respiratory Effort Normal Blood Pressure 152/67 H 150/66 H Blood Pressure Mean 95 94 Pulse Ox 99 99 99 Oxygen Delivery Method Room Air Room Air Weight Weight: 248 lb 0.321 oz Body Mass Index (BMI) 36.6 Physical Exam Const Orientation / Consciousness: confused and lethargic HEENT normocephalic and head/scalp atraumatic Eyes PERRL and EOMs intact bilaterally Lymph Lymphatic: no lymphadenopathy noted Resp Resp Narrative: diminished breath sounds bibasally, bilateral crackles. On room air. Cardio regular rate, regular rhythm, S1 normal heart sound, S2 normal heart sound and no murmurs GI normal to inspection, nondistended, normoactive bowel sounds, soft to palpation and non-tender Extremity normal capillary refill, no clubbing, cyanosis or edema and no calf tenderness Skin General Skin Exam: no breakdown Neuro Neuro Narrative: confused, restless, pill rolling motion of right thumb and forefinger noted Motor Exam: general weakness Psych Psych Narrative: confused, restless Results Lab / Micro Data 11/19/23 10:00 11/19/23 10:00 Labs: Laboratory Results - last 24 hr 11/19/23 09:47: POC Glucose 68 L 11/19/23 10:00: WBC 6.2, RBC 3.16 L, Hgb 9.8 L, Hct 30.4 L, MCV 96.2 H, MCH 31.0, MCHC 32.2, RDW Std Deviation 51.2 H, RDW Coeff of Sophie 14.6, Plt Count 125 L, MPV 10.9, Immature Gran % (Auto) 0.300, Neut % (Auto) 74.9 H, Lymph % (Auto) 15.3 L, [place] % (Auto) 6.6, Eos % (Auto) 2.4, Baso % (Auto) 0.5, Absolute Neuts (auto) 4.7, Absolute Lymphs (auto) 0.95, Nucleated RBC % 0, Sodium 145, Potassium 4.7, Chloride 117 H, Carbon Dioxide 23.0, Anion Gap 5, BUN 45 H, Creatinine 1.35 H, Estim Creat Clear Calc 54.86, Est GFR (MDRD) Af Amer 66, Est GFR (MDRD) Non-Af 54 L, BUN/Creatinine Ratio 33.3 H, Glucose 76, Calcium 9.1, Total Bilirubin 0.60, AST 33, ALT 33, Alkaline Phosphatase 113, Total Creatine Kinase 426 H, Total Protein 6.8, Albumin 3.7, Globulin 3.1, Albumin/Globulin Ratio 1.2 11/19/23 10:15: Urine Color Yellow, Urine Clarity Clear, Urine pH 5.0, Ur Specific [place] 1.020, Urine Protein Negative, Urine Glucose (UA) Normal, Urine Ketones 5 H, Urine Occult Blood Negative, Urine Nitrite Negative, Urine Bilirubin Negative, Urine Urobilinogen Normal, Ur Leukocyte Esterase Negative, Urine RBC 0-5 SEEN, Urine WBC 0-5 SEEN, Ur Squamous Epith Cells 0 SEEN, Urine Bacteria 0 SEEN, Urine Mucus 0 SEEN 11/19/23 10:42: POC Glucose 86 Micro: Microbiology 11/19/23 09:50 Mucosa - Nose SARS-CoV-2, Influenza & RSV (PCR) - Final ABG Data ABG results: ABG 11/19/23 10:04 Specimen Type ART Sample Site L Radial pH 7.31 L Bicarbonate Actual 20.7 L Total CO2 22 Base Excess -6 L O2 Saturation 97 ABG pCO2 41.3 ABG pO2 97 Jus Test Positive O2 Delivery Device Room Air Vent Mode Not entered Rhythm Strip Rhythm Strip: junctional Rate: 57 Ectopy: None Imaging Radiology Impression Brain CT 11/19/23 10:25 IMPRESSION: Chronic involutional changes of the brain. Partial opacification of the ethmoid sinuses. Electronically Signed: Bhaskar Dyson MD at 10:43 EST , Cervical Spine CT 11/19/23 10:25 IMPRESSION: No significant abnormality is seen. Electronically Signed: Bhaskar Dyson MD at 10:48 EST , Chest X-Ray 11/19/23 10:30 IMPRESSION: Scattered calcified granulomas. No acute abnormality is seen. Electronically Signed: Bhaskar Dyson MD at 10:50 EST , Hip/Pelvis X-Ray 11/19/23 10:30 IMPRESSION: No acute abnormality is seen. Electronically Signed: Bhaskar Dyson MD at 11:10 EST , Assessment & Plan Assessment/Plan (1) Fall: (2) Acute alteration in mental status: PLAN: Plan #Debility and weakness due to mechanical fall Admit to [facility]. Was found on the floor today by his [id number]. He had apparently been on the floor for about an hour after he fell while trying to get up from his chair. CT of the brain showed no acute intracranial pathology. Hip and pelvic x-ray showed no evidence of fracture and cervical spine CT was showed no evidence of fracture. PT OT consult. For precautions. Hydrate gently with IV fluids. #Probable aspiration Patient on room air but he has very coarse bilateral crackles and a very wet cough. Keep n.p.o. until speech therapy evaluates him. Gentle hydration with IV fluids. Check BNP as he has a history of heart failure. #Benign essential hypertension: #CAD s/p stents #Acute metabolic encephalopathy. Etiology is unclear. Family says he has been getting confused and delirious at home and was actually scheduled to see neurology on outpatient basis to be evaluated for Parkinson's disease. He does have pill-rolling motion of his right hand. If he does not improve we will consult neurology. Hold all sedative meds. DVT prophylaxis: SCDs CODE STATUS: Default full code in light of him being confused. Charges/Coding Visit Charges Inpatient E&M: 65828 Init Hosp L2
[2023-11-19 12:20] LABS: Bedside Glucose 103 mg/dL (74-106)
--- NOTE | 2023-11-19 12:34 | ED.RN ---
RN WITH 2 RESPIRATORY THERAPISTS AT THE BEDSIDE. RT TO SUCTION SECRETIONS. AFTER COMPLETION PATIENT STATES GET THE FUCK OUT OF MY ROOM . RN STATES THAT WE ARE TRYING TO HELP MAKE SURE HE DOESN'T GET PNEUMONIA D/T EXCESSIVE SECRETIONS. PT TRYING TO SWING AT ALL 3 MEMBERS OF THE CARE TEAM STATING I DIDN'T TAKE ANY PILLS AND GET THE FUCK OUT .
--- NOTE | 2023-11-19 12:37 | ED.RN ---
PATIENT REFUSING TO ANSWER RN'S QUESTION ABOUT MEDLIST.
[2023-11-19] MEDS: 0.9% Normal Saline (1000mL) 1,000 ML 125 ML IV ×2 (13:39→21:29)
[2023-11-19 17:04] LABS: BNP,B-Type NATRIURETIC PEPTIDE 49.5 pg/mL (0-100)
[2023-11-20] VITALS (13 sets, daily range): BP systolic 93–141; BP diastolic 46–83; PULSE 63–86; RESP 12–25; TEMP 36.7–37.4; O2SAT 73–100
[2023-11-20 08:22] LABS: Absolute Lymphocyte Count 1.03 X10^3/uL (0.83-4.51); Absolute Neutrophil Count 3.9 X10^3/uL (2.0-7.7); Basophil# 0.04 X10^3/uL; Basophil% 0.7 % (0-1); Eosinophil# 0.15 X10^3/uL; Eosinophils% 2.7 % (0-5); Hematocrit 29.9 % (40-54); Hemoglobin 9.5 g/dL (13.0-16.5); Lymphocyte # 1.03 X10^3/ul (0.83-4.51); Lymphocyte % 18.5 % (19-41); Mean Corp Hgb Conc 31.8 g/dL (32-36); Mean Corpuscular Hgb 30.8 pg (27.0-32.0); Mean Corpuscular Volume 97.1 fL (80-94); Monocyte# 0.45 X10^3/uL; Monocyte% 8.1 % (0-10); NRBC Flagged by Analyzer 0 % (0-5); Neutrophil # 3.88 X10^3/uL (2.7-7.7); Neutrophil % 69.6 % (47-70); Platelet Count 128 K/mm3 (150-450); RBC Distribution Width CV 14.9 % (11.6-14.6); RBC Distribution Width SD 51.4 fl (35.1-43.9); Red Blood Count 3.08 M/mm3 (4.6-6.2); White Blood Count 5.6 K/mm3 (4.4-11.0)
[2023-11-20 09:03] LABS: Anion Gap 5 (5-15); BUN 30 mg/dL (7-18); BUN/Creat Ratio 28.3 RATIO (10-20); Calcium,Total 9.4 mg/dL (8.5-10.1); Chloride 121 mmol/L (98-107); Creatinine, Serum 1.06 mg/dL (0.70-1.30); EST Glomerular Filtration Rate 72 mL/min (>60); Est Glom Filt Rate - Afr Amer 87 mL/min (>60); Estimated Creatinine Clearance 64.79 ml/min; Glucose 73 mg/dL (74-106); Potassium 4.6 mmol/L (3.5-5.1); Sodium Level 147 mmol/L (136-145)
--- NOTE | 2023-11-20 10:37 | PN_ITS ---
Subjective Subjective Patient seen and examined. HE was still quit restless and moaning. He was albe to answer a few questions. He has a very moist cough. He denied being in pain or feeling short of breath. He is on room air. Objective Data Objective Data Vital Signs: Vital Signs Temp Pulse Resp BP Pulse Ox O2 Del Method 98.1 F 74 18 140/83 H 91 Room Air 11/20/23 09:45 11/20/23 09:45 11/20/23 09:45 11/20/23 09:45 11/20/23 09:45 11/20/23 09:45 Oxygen Delivery Method Room Air Weight: 213 lb Body Mass Index (BMI) 31.4 Intake & Output: Intake and Output for Last 24 Hours 11/18/23 11/19/23 11/20/23 23:59 23:59 23:59 Intake Total 979.17 / 979.17 1000 / 1000 Output Total 1000 / 1000 Balance 979.17 / 579.17 0 / 0 Lab / Micro Data 11/20/23 08:17 11/20/23 08:17 Labs: Laboratory Results - last 24 hr 11/19/23 10:00: B-Natriuretic Peptide 49.5 11/19/23 10:42: POC Glucose 86 11/19/23 12:00: POC Glucose 103 11/20/23 08:17: WBC 5.6, RBC 3.08 L, Hgb 9.5 L, Hct 29.9 L, MCV 97.1 H, MCH 30.8, MCHC 31.8 L, RDW Std Deviation 51.4 H, RDW Coeff of Sophie 14.9 H, Plt Count 128 L, MPV 11.0, Immature Gran % (Auto) 0.400, Neut % (Auto) 69.6, Lymph % (Auto) 18.5 L, [place] % (Auto) 8.1, Eos % (Auto) 2.7, Baso % (Auto) 0.7, Absolute Neuts (auto) 3.9, Absolute Lymphs (auto) 1.03, Nucleated RBC % 0, Sodium 147 H, Potassium 4.6, Chloride 121 H, Carbon Dioxide 21.0, Anion Gap 5, BUN 30 H, Creatinine 1.06, Estim Creat Clear Calc 64.79, Est GFR (MDRD) Af Amer 87, Est GFR (MDRD) Non-Af 72, BUN/Creatinine Ratio 28.3 H, Glucose 73 L, Calcium 9.4 Micro: Microbiology 11/19/23 09:50 Mucosa - Nose SARS-CoV-2, Influenza & RSV (PCR) - Final Radiography Diagnostic Testing: Radiology Impression Brain CT 11/19/23 10:25 IMPRESSION: Chronic involutional changes of the brain. Partial opacification of the ethmoid sinuses. Electronically Signed: Bhaskar Dyson MD at 10:43 EST , Cervical Spine CT 11/19/23 10:25 IMPRESSION: No significant abnormality is seen. Electronically Signed: Bhaskar Dyson MD at 10:48 EST , Chest X-Ray 11/19/23 10:30 IMPRESSION: Scattered calcified granulomas. No acute abnormality is seen. Electronically Signed: Bhaskar Dyson MD at 10:50 EST , Hip/Pelvis X-Ray 11/19/23 10:30 IMPRESSION: No acute abnormality is seen. Electronically Signed: Bhaskar Dyson MD at 11:10 EST , Rhythm Strip Rhythm Strip: junctional Rate: 57 Ectopy: None Physical Exam Const Orientation / Consciousness: confused and lethargic HEENT normocephalic and head/scalp atraumatic Eyes PERRL and EOMs intact bilaterally Lymph Lymphatic: no lymphadenopathy noted Resp Resp Narrative: diminished breath sounds bibasally, has coarse, bilateral crackles. On room air. Cardio regular rate, regular rhythm, S1 normal heart sound, S2 normal heart sound and no murmurs GI normal to inspection, nondistended, normoactive bowel sounds, soft to palpation and non-tender Extremity normal capillary refill, no clubbing, cyanosis or edema and no calf tenderness Skin General Skin Exam: no breakdown Neuro Neuro Narrative: confused, restless, moves all extremities Motor Exam: general weakness Psych Psych Narrative: confused, restless Assessment & Plan Assessment/Plan (1) Fall: (2) Acute alteration in mental status: PLAN: Plan #Debility and weakness due to mechanical fall * Was found on the floorby his [id number]. He had apparently been on the floor for about an hour after he fell while trying to get up from his chair. * CT of the brain showed no acute intracranial pathology. Hip and pelvic x-ray showed no evidence of fracture and cervical spine CT was showed no evidence of fracture. * PT OT consult. For precautions. * Hydrate gently with IV fluids. * #Probable aspiration and dysphagia * Patient on room air but he has very coarse bilateral crackles and a very wet cough. * Keep n.p.o. until speech therapy evaluates him. * Gentle hydration with IV fluids. * BNP not elevated. * #Benign essential hypertension: on lisinpril #CAD s/p stents: stagle. On aspirin and statin. #Acute metabolic encephalopathy. * Etiology is unclear. Family says he has been getting confused and delirious at home and was actually scheduled to see neurology on outpatient basis to be evaluated for Parkinson's disease. * He does have pill-rolling motion of his right hand. * If he does not improve we will consult neurology. Hold all sedative meds. * DVT prophylaxis: SCDs CODE STATUS: Default full code in light of him being confused. * Charges/Coding Visit Charges Inpatient E&M: 81416 Subs Hosp L2
--- NOTE | 2023-11-20 12:28 | CASEMGMT ---
Social Work SW called pt's daughter Urban in regard to prior level of function and anticipated discharge plan. PCP: Dr. England Specialists: Dr. James--cardiology. Dr. Jarvis--neurology, to see for first time this Sunday. [facility] Insurance: [employer] Medicare LNOK: Sons, daughter, grandchildren. As per daughter family is involved with pt. Pt lives next door to his late 's sister. Living arrangements: Pt lives home alone in an apt with no steps in. Pt still drives. He organizes his own meds, does his own personal care. Pt cooks for himself. He manages his finances, goes to the grocery store. LW/POA: Daughter Urban is POA, both LW and POA forms are on file. DME: Pt has a hospital bed, elevated toilet seat, walker, sliding transfer chair and grab bars HHC/SNF: Pt has been to [facility] in the past, has also had home health. SW spoke w/daughter about plan. She explains that pt seems to get confused when he stays up late and gets off his sleep schedule. She states he also gets dehydrated and drinks coffee instead of water at times. Daughter states that they are taking him to see Dr. Jarvis however to get assessed for possible memory issues. We discussed plan at discharge. Daughter is in agreement with pt going to SNF short term if it is needed. SW did print a list of assisted facilities via [employer] in pt's insurance network, preferred geographic area and complete with quality and resource use data. Daughter states that pt would likely want [facility] again, but she will speak w/pt. Daughter to stop at the commercial front load operator when she arrives later, and SW will provide the SNF list to her. Plan: TBD, SNF likely, PT/OT pending. SHEKHAR Albrecht
--- NOTE | 2023-11-20 13:36 | CASEMGMT ---
Met with?patient and his daughter to complete YOUNG form. YOUNG form explained to?both who voiced understanding and signed form. Original form placed in pt?s chart. Patient declined copy Lillian Hollis, Discharge Planning Asst
[2023-11-20] MEDS: Dextrose 50%-Water 25 GM/50 ML DISP.SYRIN IV (14:21)
[2023-11-20] MEDS: 0.9% Saline Lock 10 ML Syringe IV ×2 (14:23→22:00)
--- NOTE | 2023-11-20 14:29 | NURSING ---
touched base with ST, aware per Tammy would attempt to have ST come eval patient as soon as possible, possibly 3:30-4:00 if not sooner. Primary RN updated.
[2023-11-20] MEDS: Dextrose 5%/0.9% NaCl 1,000 ML 125 ML IV (14:34)
[2023-11-20 14:38] LABS: Bedside Glucose 57 mg/dL (74-106)
--- NOTE | 2023-11-20 14:50 | NURSING ---
This RN was told by POULTRY HUSBANDMAN and pathology secretary/transcriptionist that pt was having jerking movements while up on bedside commode. This RN went in pt room and helped get pt back to bed. Vital signs were normal. Pt's blood sugar was 57. reverse unit operator Faiza contacted Dr Calle and received orders to give 12.5mg of D50. This was given and blood sugar was rechecked 15 minutes later. Blood sugar recheck was 125. D5NS IV fluids were also ordered. Will continue to monitor pt.
[2023-11-20 14:55] LABS: Bedside Glucose 125 mg/dL (74-106)
[2023-11-20] MEDS: Albuterol 2.5 MG/3 ML VIAL.NEB. INHALATION (15:35)
[2023-11-20 16:37] LABS: Bedside Glucose 110 mg/dL (74-106)
[2023-11-20] MEDS: Furosemide 20 MG/2 ML VIAL IV (21:58)
--- NOTE | 2023-11-20 22:00 | RAD_ITS ---
INDICATION: resp distress and rales EXAMINATION/TECHNIQUE: X-RAY - XR Chest 1 View COMPARISON: 11/19/2023. FINDINGS: LINES/DEVICES: None. LUNGS: Right lower lobe consolidation. No evidence of a pleural effusion or a pneumothorax. MEDIASTINUM AND CARDIOVASCULAR STRUCTURES: Cardiac silhouette is normal in size and contour. Mediastinum is unremarkable. BONES AND SOFT TISSUES: No acute abnormality. RAD/Chest 1 View (Portable) IMPRESSION: Right lower lobe consolidation consistent with lobar pneumonia. Electronically Signed: Jasson Bailon DO at 23:12 EST ,
--- NOTE | 2023-11-20 22:04 | PCM.HOSP.N ---
Hospitalist Note Patient with increasing oxygen requirements, concern for volume overload, reviewed patient with RN and respiratory therapy and at this time will place on BiPAP, obtain chest x-ray and ABG, hold IV fluids, diurese with Lasix 20 mg IV x 1 given soft blood pressure, may consider additional IV diuresis if BP improves, will plan repeat ABG also pending further results. Will place patient on telemetry monitoring.
--- OUTSIDE RECORDS SUMMARY | 2023-11-20 22:09 | XMS RPT_ITS | CCD ---
Author Name Unknown Address [address] [facility] [address] [place] [address] Organization [facility] Care Team Providers Care Personnel Research Scientist Name Role Phone Jasson Bright MD Primary Care Provider [phone] JASSON BRIGHT Primary Care Unavailable JASSON BRIGHT Attending Unavailable JASSON BRIGHT Primary Care Unavailable JASSON BRIGHT Referring Unavailable THAO MENCHACA Referring Unavailable JASSON BRIGHT Primary Care Unavailable JASSON BRIGHT Attending Unavailable THAO MENCHACA Attending Unavailable JASSON BRIGHT Primary Care Unavailable JASSON BRIGHT Primary Care Unavailable JASSON BRIGHT Attending Unavailable JASSON BRIGHT Primary Care Unavailable JASSON BRIGHT Referring Unavailable BLAKE MEDEROS Referring Unavailable BLAKE MEDEROS Attending Unavailable JASSON BRIGHT Primary Care Unavailable JASSON BRIGHT Primary Care Unavailable JASSON BRIGHT Referring Unavailable Jasson Bright MD Primary Care Provider Allergies Allergy Classification Reported Allergen(s) Allergy Type Date of Onset Reaction(s) Facility (20 sources) Cat; Translations: [CATS] Propensity to adverse reactions 06-25-2013 Cough [facility] Work Phone: Medications Current Medications Medication [...] Coronary atherosclerosis; Translations: [Atherosclerotic heart disease of [place] coronary artery without angina pectoris] Onset: 05-19-2021 [...] Episodic Other ear and sense organ disorders (13 sources) Bilateral hearing loss; Translations: [Unspecified hearing loss, bilateral] Onset: 02-01-2023 Chronic Other ear and sense organ disorders (1 source) Otalgia, left ear; Translations: [Otalgia, unspecified] Episodic Other eye disorders (1 source) Disorder of eye; Translations: [Unspecified disorder of eye and adnexa] Episodic Other lower respiratory disease (2 sources) Hypoxia; Translations: [Hypoxemia] 05-17-2023 Episodic Other nervous system disorders (1 source) [...] status; Translations: [Altered mental status, unspecified] Episodic Residual codes; unclassified (1 source) Bilateral lower limb edema; Translations: [Localized edema] Onset: 10-17-2023 10-17-2023 Episodic Spondylosis; intervertebral disc disorders; other back [...] Date Documented Da te Episodic/Chronic Administrative/social admission (13 sources) Advance directive discussed with patient; Translations: [Other specified counseling] Onset: 02-01-2023 Episodic Conditions associated with dizziness or vertigo (20 sources) Benign paroxysmal positional vertigo; Translations: [Benign paroxysmal vertigo, unspecified ear] Onset: 07-01-2015 02-02-2021 Episodic Diseases of mouth; excluding dental (20 sources) Dribbling from mouth; Translations: [Disturbances of salivary secretion] Onset: 01-17-2021 01-17-2021 Episodic Miscellaneous mental health disorders (1 source) Anxiety about body function or health; Translations: [Other symptoms and signs involving emotional state] Onset: 08-21-2015 02-02-2021 Episodic Nutritional deficiencies (20 sources) Serum vitamin B12 low; Translations: [Deficiency of other specified B group vitamins] Onset: 08-16-2021 08-16-2021 Episodic Other aftercare (20 sources) Patient care statuses; Translations: [Encounter for palliative care] Onset: 02-12-2022 02-12-2022 Episodic Other aftercare (20 sources) Patient encounter status; Translations: [Other putty glazer (current) drug therapy] Onset: 02-17-2022 Episodic Other aftercare (1 source) Other putty glazer (current) drug therapy; Translations: [Medication management] Onset: [...] [Other constipation] Onset: 09-01-2009 02-02-2021 Episodic Other lower respiratory disease (1 source) Hypoxemia; Translations: [Hypoxia] Onset: 05-28-2023 Episodic Other male genital disorders (20 sources) [...] of mental health and substance abuse codes (13 sources) Ex-smoker; Translations: [Personal history of nicotine dependence] Onset: 02-02-2021 Episodic Syncope (20 sources) Micturition syncope; Translations: [Syncope and collapse] Onset: 01-17-2021 01-17-2021 Episodic Results Test Name Value Interpretation Reference Range Facil ity Vital Signs Date Time Vital Sign Value Performing Clinician Faci lity 02-01-2023 14:56-0400 Diastolic blood pressure 74 mm[Hg] Jasson Bright MD Work Phone: [facility] 02-01-2023 14:56-0400 Systolic blood pressure 131 mm[Hg] Jasson Bright MD Work Phone: [facility] 02-01-2023 14:17-0400 Body weight 104.78 kg Jasson Bright MD Work Phone: [facility] 01-08-2023 10:27-0400 Body temperature 97.59 [degF] Thao Menchaca PA-C Work Phone: [facility] 01-08-2023 10:27-0400 Body weight 106.59 kg Thao Menchaca PA-C Work Phone: [facility] 01-08-2023 10:27-0400 Diastolic blood pressure 76 mm[Hg] Thao Menchaca PA-C Work Phone: [facility] 01-08-2023 10:27-0400 Heart rate 56 /min Thao Menchaca PA-C Work Phone: [facility] 01-08-2023 10:27-0400 Respiratory rate 18 /min Thao Menchaca PA-C Work Phone: [facility] 01-08-2023 10:27-0400 Systolic blood pressure 150 mm[Hg] Thao Menchaca PA-C Work Phone: [facility] 09-29-2022 15:29-0500 Body temperature 98.1 [degF] Jessie Jacques APRN.[employer] Work Phone: [facility] 09-29-2022 15:29-0500 Body weight 102.69 kg Jessie Jacques APRN.[employer] Work Phone: [facility] 09-29-2022 15:29-0500 Diastolic blood pressure 80 mm[Hg] Jessie Jacques APRN.[employer] Work Phone: [facility] 09-29-2022 15:29-0500 Heart rate 67 /min Jessie Jacques APRN.[employer] Work Phone: [facility] 09-29-2022 15:29-0500 Respiratory rate 16 /min Jessie Jacques APRN.[employer] Work Phone: [facility] 09-29-2022 15:29-0500 SaO2% (BldA) [Mass fraction] 99 % Jessie Jacques APRN.[employer] Work Phone: [facility] 09-29-2022 15:29-0500 Systolic blood pressure 178 mm[Hg] Jessie Jacques APRN.[employer] Work Phone: [facility] 07-13-2022 12:31-0400 Body weight 97.07 kg Thao Menchaca PA-C Work Phone: [facility] 07-13-2022 12:31-0400 Diastolic blood pressure 70 mm[Hg] Thao Menchaca PA-C Work Phone: [facility] 07-13-2022 12:31-0400 Heart rate 62 /min Thao Menchaca PA-C Work Phone: [facility] 07-13-2022 12:31-0400 Respiratory rate 16 /min Thao Mecnhaca PA-C Work Phone: [facility] 07-13-2022 12:31-0400 Systolic blood pressure 136 mm[Hg] Thao Menchaca PA-C Work Phone: [facility] 07-04-2022 13:06-0400 Diastolic blood pressure 66 mm[Hg] Charlene Haagen BRIDGE PAINTER HELPER[employer] Work Phone: [facility] 07-04-2022 13:06-0400 Heart rate 65 /min Charlene Haagen BRIDGE PAINTER HELPER[employer] Work Phone: [facility] 07-04-2022 13:06-0400 Respiratory rate 18 /min Charlene Haagen BRIDGE PAINTER HELPER[employer] Work Phone: [facility] 07-04-2022 13:06-0400 SaO2% (BldA) [Mass fraction] 97 % Charlene Haagen BRIDGE PAINTER HELPER[employer] Work Phone: [facility] 07-04-2022 13:06-0400 Systolic blood pressure 128 mm[Hg] Charlene Haagen BRIDGE PAINTER HELPER[employer] Work Phone: [facility] 03-06-2022 14:13-0400 Body height 171 cm Yan Vargas MD Work Phone: [facility] 03-06-2022 14:13-0400 Body temperature 97.11 [degF] Yan Vargas MD Work Phone: [facility] 03-06-2022 14:13-0400 Body weight 97.07 kg Yan Vargas MD Work Phone: [facility] 03-06-2022 14:13-0400 Diastolic blood pressure 79 mm[Hg] Yan Vargas MD Work Phone: [facility] 03-06-2022 14:13-0400 Heart rate 55 /min Yan Vargas MD Work Phone: [facility] 03-06-2022 14:13-0400 SaO2% (BldA) [Mass fraction] 100 % Yan Vargas MD Work Phone: [facility] 03-06-2022 14:13-0400 Systolic blood pressure 199 mm[Hg] Yan Vargas MD Work Phone: [facility] 02-17-2022 13:120400 Diastolic blood pressure 72 mm[Hg] Jasson Bright MD Work Phone: [facility] 02-17-2022 13:12-0400 Heart rate 58 /min Jasson Bright MD Work Phone: [facility] 02-17-2022 13:12-0400 Systolic blood pressure 203 mm[Hg] Jasson Bright MD Work Phone: [facility] 02-17-2022 11:59-0400 Body weight 99.79 kg Jasson Bright MD Work Phone: [facility] 02-17-2022 11:59-0400 Respiratory rate 12 /min Jasson Bright MD Work Phone: [facility] 02-09-2022 15:26-0400 Body temperature 97.11 [degF] Magnolia Dahlhausen BRIDGE PAINTER HELPER[employer] Work Phone: [facility] 02-09-2022 15:26-0400 Body weight 119.75 kg Magnolia Dahlhausen BRIDGE PAINTER HELPER[employer] Work Phone: [facility] 02-09-2022 15:26-0400 Diastolic blood pressure 68 mm[Hg] Magnolia Dahlhausen BRIDGE PAINTER HELPER[employer] Work Phone: [facility] 02-09-2022 15:26-0400 Heart rate 59 /min Magnolia Dahlhausen BRIDGE PAINTER HELPER[employer] Work Phone: [facility] 02-09-2022 15:26-0400 Respiratory rate 18 /min Magnolia Dahlhausen BRIDGE PAINTER HELPER[employer] Work Phone: [facility] 02-09-2022 15:26-0400 SaO2% (BldA) [Mass fraction] 99 % Magnolia Dahlhausen BRIDGE PAINTER HELPER[employer] Work Phone: [facility] 02-09-2022 15:26-0400 Systolic blood pressure 160 mm[Hg] Magnolia Truongzulema BRIDGE PAINTER HELPER[employer] Work Phone: [facility] Encounters Encounter Date Encounter Type Care Provider Facility Start: 11-20-2023 Chart abstracting Jasson monge MD Work Phone: [facility] [place] Procedures Date Procedure Procedure Detail Performing Clinician Start: 05-28-2023 Noninvasive ear/puls e oximetry multiple deter Jasson Bright MD Work Phone: Start: 07-04-2022 INFLUENZA SEASONAL QUADRIVALENT HIGH DOSE AGE 65+ Charlene Wayne BRIDGE PAINTER HELPER[employer] Work Phone: Start: 05-22-2022 Cul bact xcpt urine blood/stool aerobic isol Blake Gatito Work Phone: Start: 02-17-2022 Hemoglobin A1c/Hemoglobin.total in Blood Jasson Bright MD Work Phone: Start: 01-31-2021 Adult depression scr eening assessment Jasson Bright MD Work Phone: Plan of Treatment Date Care Activity Detail Author Start: 01-10-2029 Urine microalbumin profile [facility] Start: 10-17-2024 Annual PCP Team Log Cooker jensen Disease Visit Annual PCP Team Chronic Disease Visit [facility] Start: 02-17-2024 ANNUAL PCP TEAM LEAD JAVASCRIPT DEVELOPER JENSEN DISEASE VISIT ANNUAL PCP TEAM CHRONIC DISEASE VISIT [facility] Start: 02-03-2024 Hepatitis B screening URINE AL BUMIN:CREATININE RATIO [facility] Start: 02-02-2024 ANNUAL PCP TEAM LEAD JAVASCRIPT DEVELOPER JENSEN DISEASE VISIT ANNUAL PCP TEAM CHRONIC DISEASE VISIT [facility] Start: 02-02-2024 BP CONTROLLED (<130/80) BP CONTROLLE D (<130/80) [facility] Start: 02-02-2024 COVID-19 VACCINE (#1) COVID-19 VACCI NE (#1) [facility] Immunizations Immunization Date Immunization Notes Care Provider Fa cility 07-04-2022 influenza, high-dose , quadrivalent vaccine (FLUZONE HIGH DOSE QUADRIVALENT) Charlene Wayne BRIDGE PAINTER HELPER[employer] Work Phone: [facility] 07-04-2022 influenza virus vacc ine, unspecified formulation Jasson Bright MD Work Phone: [facility] 07-23-2020 influenza, high-dose , quadrivalent vaccine (FLUZONE HIGH DOSE QUADRIVALENT) Jasson Bright MD Work Phone: [facility] 08-14-2019 influenza, high dose seasonal, preservative-free Jasson Bright MD Work Phone: [facility] 01-10-2019 tetanus and diphther ia toxoids, adsorbed, preservative free, for adult use (5 Lf of tetanus toxoid and 2 Lf of diphtheria toxoid) Jasson Bright MD Work Phone: [facility] 06-14-2018 influenza, injectabl e, quadrivalent, contains preservative Jasson Bright MD Work Phone: [facility] 07-02-2017 influenza, high dose seasonal, preservative-free Jasson Bright MD Work Phone: [facility] 07-25-2016 influenza, high dose seasonal, preservative-free Jasson Bright MD Work Phone: [facility] 06-29-2015 influenza, high dose seasonal, preservative-free Jasson Bright MD Work Phone: [facility] 04-27-2015 pneumococcal conjuga te vaccine, 13 valent Jasson Bright MD Work Phone: [facility] 07-10-2014 influenza, seasonal, injectable Jasson Bright MD Work Phone: [facility] 07-01-2014 influenza, high dose seasonal, preservative-free Jasson Bright MD Work Phone: [facility] 07-10-2013 influenza virus vacc ine, unspecified formulation Jasson Bright MD Work Phone: [facility] 06-29-2012 influenza virus vacc ine, unspecified formulation Jasson Bright MD Work Phone: [facility] 07-18-2011 influenza virus vacc ine, unspecified formulation Jasson Bright MD Work Phone: [facility] 09-01-2009 pneumococcal polysaccharide vaccine, 23 valent Jasson Bright MD Work Phone: [facility] Work Phone: 10-23-2008 tetanus toxoid, redu carlee diphtheria toxoid, and acellular pertussis vaccine, adsorbed Jasson Bright MD Work Phone: [facility] 08-21-2007 influenza virus vacc ine, whole virus Jasson Bright MD Work Phone: [facility] 07-21-2005 influenza virus vacc ine, whole virus Jasson Bright MD Work Phone: [facility] Work Phone: 09-05-2000 diphtheria and tetan us toxoids, adsorbed for pediatric use Jasson Bright MD Work Phone: [facility] Work Phone: Payers Date Payer Category Payer Medicare [employer] [facility] [facility] [id number] 2014-Present [phone] [id number] [place] [address] [facility] [id number] 2014 Medicare [employer] [facility] [id number] 2014-Present [phone] [place] [address] [facility] [id number] 2014 Unknown [id number] Social History Date Type Detail Facility Start: 11-10-2021 End: 06-07-2022 Tobacco smoking status NHIS Smokes tobacco daily [facility] End: 01-18-2023 History of tobacco use Cigarette Smoker [facility] Start: 11-10-2021 End: 02-01-2023 Cigarettes smoked current (pack per day) - Reported 2 [facility] Start: 11-10-2021 End: 02-01-2023 Tobacco use and exposure Smokeless tobacco non-user [facility] Start: 12-19-2021 End: 10-18-2023 Alcohol intake Current non-drinker of alcohol (finding) [facility] Start: 01-31-2021 End: 01-04-2023 History SDOH Alcohol Frequency 1 [facility] Start: 01-31-2021 End: 01-04-2023 History SDOH Social Connections Phone 5 [facility] Start: 01-31-2021 End: 01-04-2023 History SDOH Social Connections Membership 2 [facility] Start: 01-31-2021 History SDOH Social Connections Living 3 [facility] Start: 11-10-2021 End: 06-07-2022 Tobacco Comment now smokes about 1/2 pack per day [facility] Start: 1945 Sex Assigned At Male [facility] Start: 12-25-2021 End: 06-07-2022 Exposure to SARS-CoV-2 (event) Not sure [facility] Start: 02-01-2023 Tobacco smoking stat us KSIS Ex-smoker [facility] End: 01-18-2023 History of tobacco use Current smoker [facility] Start: 01-04-2023 History SDOH Alcohol Std Drinks 0 [facility] Start: 01-04-2023 End: 02-01-2023 Social connection and isolation panel [facility] In a typical week, h ow many times do you talk on the telephone with family, friends, or neighbors? Patient refused [facility] Are you now , , , , never or living with a partner? Refused [facility] How often to you hav e a drink containing alcohol? Never [facility] (I/We) worried wheth er (my/our) food would run out before (I/we) got money to buy more. Never true [facility] In the past 12 month s, was there a time when you were not able to pay the mortgage or rent on time? No [facility] Start: 07-04-2021 Gender identity Identifies as male gender (finding) [facility] Start: 07-04-2021 Sexual orientation Heterosexual (ida sullivan) [facility] Clinical Notes 08-17-2021 to 11-20-2023 Roxana Yusuf LPN - 11/20/2023 7:11 AM Roxana Holguin LPN - 08/16/2023 4:08 PM Kaitlin Yun, VEENA - 05/28/2023 11:20 AM EDKaitlin Churchill, LYDIAFT - 05/28/2023 11:19 AM EDT Note Date & Type Note Facility 11-20-2023 History of Presen t illness Narrative Scan on 11/19/2023 3:55 PM by ProviderHerber PA-C: Consultation - Emergency Medicine Scan on 11/19/2023 11:18 AM by ProviderHerber PA-C: X-ray Scan on 11/19/2023 10:53 AM by Provider, KEL CravenC: X-ray Scan on 11/19/2023 10:52 AM by ProviderHerber PA-C: CT Scan Scan on 11/19/2023 10:47 AM by ProviderHerber PA-C: CT Scan Scan on 11/19/2023 4:38 PM by ProviderHerber PA-C documented in this encounter [facility] 10-17-2023 Note HNO ID: [id number] Author: JASSON BRIGHT MD Service: ? Author Type: Physician Type: Progress Notes Filed: 10/18/2023 09:25 Note Text: Chief Complaint Patient presents with: Follow Up HPI Kerry Warner is a 78 year old male who presents here today for fatigue. Patient has had falls. Describes he is sitting in his seat and falls forward. Has been unsteady on feet. Patient feels like he does have any energy Patient did drive himself to the appointment today. Patient was recently in the hospital for an URI was released to home with albuterol inhaler. Patient had the diagnosis of COPD exacerbation however patient has never had this diagnosis nor has he had PFT's and the x-ray showed no hyper inflated air ways. He was sent home on a steroid taper and with an albuterol inhaler. He denies any further shortness of breath and has not been using the inhaler. Patient would be interested in having PT to help build up his muscle weakness. He has had some increased balance issues and was seen in the ER in the past month after a fall. Patient has had issues with memory changes and has Parkinson's. He had an appt to see Neuro in 05/2023 but appears the appt was canceled by the patient (or daughter) and never rescheduled. His daughter is also concerned regarding his excessive drooling. He was on glycopyrrolate in the past for the drooling. Patient indicates that his daughter comes to his house to help out. Patient has been trying to use the inhaler unsure really how to use it correctly Office visit - medicare wellness 02/02/2024 Patient with hx of possible Parkinson dz, CAD, DM, CHF, HTN, HLP, GERD, chronic headache, carotid stenosis, low Folate, low B12, current smoker, obesity, . Aftr last appt with Neuro family requested to hold off on seeing the brain center and f/u one more time here with Neuro. Neuro was ok with this but it appears an appt was never made. Past medical history, appointments, medications, allergies reviewed. [...] due to lipid rich plaque 05/19/2021 Seeing [facility]: DANISH to Mid RCA and [...] Obesity, Class III, BMI 40-49.9 (morbid obesity) ([facility]) 02/06/2014 Orthostatic hypotension 05/13/2018 Primary [...] FLX DX W/COLLJ SPEC WHEN [facility] DRUG ELUTING STENT [...] Outpatient Medications on File Prior to Visit M (more content not included)... [facility] 10-16-2023 Note HNO ID: [id number] Author: ROXANA YUSUF LPN Service: ? Author Type: LICENSED NURSE Type: Progress Notes Filed: 10/16/2023 10:03 Note Text: Scan on 10/16/2023 9:07 AM by Provider, External, PA-C: Miscellaneous Clinical Documents [facility] 10-02-2023 Note HNO ID: [id number] Author: Caron Lou LPN Service: ? Author Type: LICENSED NURSE Type: Progress Notes Filed: 10/02/2023 2:11 PM Note Text: Scan on 10/01/2023 8:27 PM by Herber Mars PA-C: CT Scan Scan on 10/02/2023 5:43 AM by Herber Mars PA-C Scan on 10/01/2023 10:33 PM by Herber Mars PA-C: Consultation - Emergency Medicine [facility] 08-16-2023 Note HNO ID: [id number] Author: Roxana Yusuf LPN Service: ? Author Type: ? Type: Progress Notes Filed: 08/17/2023 9:06 PM Note Text: Scan on 08/16/2023 3:38 PM by Herber Mars PA-C: Consultation - Cardiology [facility] 08-16-2023 History of Presen t illness Narrative Scan on 08/16/2023 3:38 PM by Herber Mars PA-C: Consultation - Cardiology documented in this encounter [facility] 05-28-2023 Note HNO ID: [id number] Author: Kaitlin Turcios RPFT Service: ? Author [...] patient unable to walk at fast pace [facility] 05-28-2023 Note HNO ID: [id number] Author: Kaitlin Turcios RPFT Service: ? Author Type: Respiratory Therapist Type: Progress Notes Filed: 05/28/2023 11:22 AM Note Text: PULM FUNCTION SMARTBLOCK: Provider: Jasson Bright MD Assisting Tech: Kaitlin Turcios RPFT Oximetry - Ambulation: 1 [facility] 05-28-2023 Procedure note Associated Ord er(s): OXIMETRY [...] at fast pace documented in this encounter [facility] 05-28-2023 History of Presen t illness Narrative PULM FUNCTION SMARTBLOCK: Provider: Jasson Bright MD Assisting Tech: Kaitlin Turcios RPFT Oximetry - Ambulation: 1 documented in this encounter [facility] 05-18-2023 Miscellaneous Notes Pt called and is notified of providers results and instructions. Pt voices understanding. Marcella Varner, RN Let patient know the narrowing in his carotids arteries is stable from last exam. No changes in Tx needed. documented in this encounter [facility] 05-17-2023 Miscellaneous Notes Patient is scheduled for test Order placed please contact daughter at number below to help set up. Pt called and is notified of providers message and instructions. Pt voices understanding. Pt would like provider to order walking O2 test. He would like to have daughter Libia Johnson) called to set up the appointment [phone]. Marcella Varner RN In order to be [...] a year ago and was to sent custodial temporarily. Was placed on O2. Patient and patient's daughter indicated that patient no longer needs the oxygen and they have been trying to have [employer] accept it back. [employer] indicated that there is a order and they need a release from the physician. Faxed over paperwork to [facility]. Yuly Jacques MA Papers to be faxed back. I never ordered any O2 for Kerry nor was I aware he even needed it?? Received CMN from [employer] for pt's O2 . Form on pcp's desk for review and signature. Please fax back Attn: Kathy [phone]. Roxana Yusuf LPN documented in this encounter [facility] 05-15-2023 Note HNO ID: [id number] Author: Blake Mederos Service: ? Author Type: Physician Type: Progress [...] [facility]: DP and PT pulses are palpable [...] without long-term current use of insulin (HCC) Plan: Patient was seen and evaluated. Nails 1-5 bilateral were debrided in length and thickness. Patient was instructed on the continued importance of diabetic foot care along with proper diet and keeping their blood sugar under control to prevent complications. Patient is to RTC in 3-4 months. Blake Mederos DPM [facility] 05-15-2023 Note HNO ID: [id number] Author: Cheyenne Bruce LPN Service: ? Author [...] Patient, Diabetic Foot Care Cheyenne Bruce LPN [facility] 05-15-2023 History of Presen t illness Narrative [...] Objective: Patient presents to clinic ambulating in [facility] Vasc: DP and PT pulses are palpable [...] complication, without long-term current use of insulin ([facility]) Plan: Patient was seen and evaluated. Nails 1-5 bilateral were debrided in length and thickness. Patient was instructed on the continued importance of diabetic foot care along with proper diet and keeping their blood sugar under control to prevent complications. Patient is to RTC in 3-4 months. Blake Mederos DPM AMB ROOMING INTAKE FLOWSHEET DATA Pain [...] Cheyenne Bruce LPN documented in this encounter [facility] 04-18-2023 Miscellaneous Notes Spoke with daughter Libia and they are going to hold off on scheduling at this time and will call us if they change their minds. Daughter returned call and was given message below. She states that she doesn't believe patient wants to see [facility] or follow up with Neurology at this time. Jj requests that a appointment scheduler contact her within the week regarding locations for Brain health appointment and that in the mean time, she would discuss with patient. Please contact Jj within the week regarding this consult. Jj is agreeable to cancelling appointment on 05/04/23 at this time. This staff cancelled appointment. DASIA Luaally signed by Arielle Rashid OCCA at 04/17/2023 3:13 PM EDT TC to daughter Libia Cooney to inform [...] to patient to have scheduled with Brain [facility]. (Pended order, please add dx) Thank you. DASIA Lua documented in this encounter [facility] 03-05-2023 Miscellaneous Notes [facility] faxed STAT request for pt's most recent lab results. Results faxed as requested. Roxana Yusuf LPN documented in this encounter [facility] 03-01-2023 Miscellaneous Notes Patient phones requesting refills as follows: Requested Prescriptions Pending Prescriptions Disp Refills atorvastatin (LIPITOR) 20 mg tablet 30 tablet 5 Sig: Take 1 tablet by mouth daily at bedtime. For cholesterol. JASON-02/01/23 Labs-02/01/23 NOV-08/06/23 Please review and advise. 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 She will contact their office for refills. Roxana Yusuf LPN Patient has been identified by name and date of : Yes Requested Prescriptions Pending Prescriptions Disp Refills amLODIPine (NORVASC) 5 mg tablet 30 tablet 11 Sig: Take 1 tablet by mouth once daily. Per [facility] lisinopril (ZESTRIL) 10 mg tablet 30 tablet 11 Sig: Take 1 tablet by mouth twice daily. RX INSTRUCTIONS: Patient aware RX will be sent to pharmacy. No need to notify patient. Muriel Nunez [employer] documented in this encounter [facility] 02-16-2023 Note HNO ID: [id number] Author: Jasson Bright MD Service: ? Author [...] due to lipid rich plaque 05/19/2021 Seeing [facility]: DANISH to Mid RCA and distal RCA 05/12/2021 Diabetes mellitus type 2, controlled, without complications ([facility]) 05/25/2016 Diastasis recti 05/26/2011 Encounter [...] Obesity, Class III, BMI 40-49.9 (morbid obesity) ([facility]) 02/06/2014 Orthostatic hypotension 05/13/2018 Primary [...] 1 tablet by mouth once daily. Per [facility] lisinopril (ZESTRIL, PRINIVIL) 10 mg [...] daily. acetaminophen (TYLEN (more content not included)... [facility] 02-15-2023 Note HNO ID: [id number] Author: Yuly Jacques MA Service: ? Author Type: Customs Appraiser Type: Progress Notes Filed: 02/15/2023 5:51 PM Note Text: Scan on 02/13/2023 8:24 AM by External Provider, PA-C: Consultation - ENT Scan on 02/14/2023 4:33 PM by External Provider, PACoyC: Consultation - Cardiology Yuly Jacques MA [facility] 02-05-2023 Miscellaneous Notes Pt notified. Lori Thakkar Ma Let patient know UA, Lipid panel, folate, Mg, prostate lab, A1c, B12, electrolytes, liver and kidney functions were all ok. CBC shows his anemia is improved. documented in this encounter [facility] 02-01-2023 Note HNO ID: [id number] Author: Jasson Bright MD Service: ? Author [...] due to lipid rich plaque 05/19/2021 Seeing [facility]: DANISH to Mid RCA and [...] Obesity, Class III, BMI 40-49.9 (morbid obesity) ([facility]) 02/06/2014 Orthostatic hypotension 05/13/2018 Primary [...] FLX DX W/COLLJ SPEC WHEN [facility] DR[facility] ELUTING STENT [...] Use Topics Alcohol use: No Drug use: Ludmila Greene works out regularly 7 times per week with exercises for his arms and legs. He watches his diet for sodium, low fat and low cholesterol some of the time. List of current specialists seen: [facility] Dr. Jarvis (Neuro) End of [...] See below Jasson (more content not included)... [facility] 02-01-2023 Instructions Jasson Bright MD - 02/01/2023 2:51 PM EDT You have an appointment with [facility] on February 14 at 3:30 with Neil James NP documented in this encounter [facility] 02-01-2023 History of Presen t illness [...] due to lipid rich plaque 05/19/2021 Seeing [facility]: DANISH to Mid RCA and distal RCA 05/12/2021 Diabetes mellitus type 2, controlled, without complications ([facility]) 05/25/2016 Diastasis recti 05/26/2011 Encounter [...] Obesity, Class III, BMI 40-49.9 (morbid obesity) ([facility]) 02/06/2014 Orthostatic hypotension 05/13/2018 Primary [...] FLX DX W/COLLJ SPEC WHEN PFRMD [facility]02[facility] 3 years DRUG ELUTING STENT 05/12/2021 Mid [...] the time. List of current specialists seen: [facility] Dr. Jarvis (Neuro) End of [...] the [place]em[place] and want him to see [facility]. Patient was recently in jail home and released about three weeks ago. He had a fall on 01/09 and 01/13. On the he was admitted then sent home and then on 01/13 he was admitted again for fall and then transferred to jail for rehab. Currently has [facility] for jail and PHYSICAL THERAPY. He did have a OT eval and felt he did not need Tx. Patient last seen [facility] for f/u and was taken off [...] due to lipid rich plaque 05/19/2021 Seeing [facility]: DANISH to Mid RCA and distal RCA 05/12/2021 Diabetes mellitus type 2, controlled, without complications ([facility]) 05/25/2016 Diastasis recti 05/26/2011 Essential hypertension, benign 10/23/2008 12/18/2016: Home BP Cuff Validated. Home BP: 155/89 Office BP: 140/88 Ex-smoker 02/02/2021 Smoked for about 50 yrs and quit around age 65. Could smoke up to 2-4 PPD. GERD without esophagitis 10/23/2008 Low folate 08/16/2021 Low serum vitamin B12 08/16/2021 Mixed hyperlipidemia 10/23/2016 Obesity, Class III, BMI 40-49.9 (morbid obesity) ([facility]) 02/06/2014 Orthostatic hypotension 05/13/2018 Primary [...] FLX DX W/COLLJ SPEC WHEN PFRMD [facility]02[facility] years DRUG ELUTING STENT [...] 1 tablet by mouth once daily. Per [facility] lisinopril (ZESTRIL, PRINIVIL) 10 mg [...] without need for meds. 13. Parkinson disease ([facility]) - ICD9: 332.0, ICD10: G20 - patient needs to f/u with Neuro. Will help get this arranged. 14. Obesity, Class III, BMI 40-49.9 (morbid obesity) ([facility]) - ICD9: 278.01, ICD10: E66.01 Weight decreasing [...] which included preparing to see the patient, [id number] patient care, completing clinical documentation, performing a medically appropriate examination, counseling and educating the patient/family/caregiver and ordering medications, tests, or procedures. Jasson Bright MD documented in this encounter [facility] 01-08-2023 Note HNO ID: [id number] Author: Thao Menchaca PA-C Service: ? Author Type: Physician Medical Historian Type: Progress Notes Filed: 01/08/2023 11:36 AM [...] due to lipid rich plaque 05/19/2021 Seeing [facility]: DANISH to Mid RCA and distal RCA 05/12/2021 Diabetes mellitus type 2, controlled, without complications ([facility]) 05/25/2016 Diastasis recti 05/26/2011 Essential hypertension, benign 10/23/2008 12/18/2016: Home BP Cuff Validated. Home BP: 155/89 Office BP: 140/88 Ex-smoker 02/02/2021 Smoked for about 50 yrs and quit around age 65. Could smoke up to 2-4 PPD. GERD without esophagitis 10/23/2008 Low folate 08/16/2021 Low serum vitamin B12 08/16/2021 Mixed hyperlipidemia 10/23/2016 Obesity, Class III, BMI 40-49.9 (morbid obesity) ([facility]) 02/06/2014 Orthostatic hypotension 05/13/2018 Primary [...] 1 tablet by mouth once daily. Per [facility] lisinopril (ZESTRIL, PRINIVIL) 10 mg [...] Vaping Use Va (more content not included)... [facility] 01-08-2023 History of Presen t illness Narrative [...] due to lipid rich plaque 05/19/2021 Seeing [facility]: DANISH to Mid RCA and distal RCA 05/12/2021 Diabetes mellitus type 2, controlled, without complications ([facility]) 05/25/2016 Diastasis recti 05/26/2011 Essential hypertension, benign 10/23/2008 12/18/2016: Home BP Cuff Validated. Home BP: 155/89 Office BP: 140/88 Ex-smoker 02/02/2021 Smoked for about 50 yrs and quit around age 65. Could smoke up to 2-4 PPD. GERD without esophagitis 10/23/2008 Low folate 08/16/2021 Low serum vitamin B12 08/16/2021 Mixed hyperlipidemia 10/23/2016 Obesity, Class III, BMI 40-49.9 (morbid obesity) ([facility]) 02/06/2014 Orthostatic hypotension 05/13/2018 Primary [...] FLX DX W/COLLJ SPEC WHEN PFRMD 07/02/2018 [facility]-Steven Hessl-repeat 3 years DRUG ELUTING STENT 05/12/2021 Mid [...] 1 tablet by mouth once daily. Per [facility] lisinopril (ZESTRIL, PRINIVIL) 10 mg [...] Thao Menchaca PA-C documented in this encounter [facility] 09-29-2022 History of Presen t illness Narrative [...] due to lipid rich plaque 05/19/2021 Seeing [facility]: DANISH to Mid RCA and distal RCA 05/12/2021 Diabetes mellitus type 2, controlled, without complications ([facility]) 05/25/2016 Diastasis recti 05/26/2011 Essential hypertension, benign 10/23/2008 12/18/2016: Home BP Cuff Validated. Home BP: 155/89 Office BP: 140/88 Ex-smoker 02/02/2021 Smoked for about 50 yrs and quit around age 65. Could smoke up to 2-4 PPD. GERD without esophagitis 10/23/2008 Low folate 08/16/2021 Low serum vitamin B12 08/16/2021 Mixed hyperlipidemia 10/23/2016 Obesity, Class III, BMI 40-49.9 (morbid obesity) ([facility]) 02/06/2014 Orthostatic hypotension 05/13/2018 Primary [...] 1 tablet by mouth once daily. Per [facility] lisinopril (ZESTRIL, PRINIVIL) 10 mg [...] Jessie Jacques APRN.SUSHMA documented in this encounter [facility] 09-06-2022 History of Presen t illness Narrative [...] is to RTC in 3-4 months. Blake Mederos DPM AMB ROOMING INTAKE FLOWSHEET DATA Risk Screening Do you have concerns about personal safety or safety in the home?: No Patient presents with: Left Foot - Established Patient, Follow Up, nail care Right Foot - Established Patient, Follow Up, nail care Called daughter jj and confirmed all medications. Cheyenne Bruce LPN documented in this encounter [facility] 09-06-2022 Instructions Balke Mederos - 09/06/2022 2:06 PM EST Diabetes Foot [...] (or decreased sensation in your feet) a extrusion technician should always cut your toenails. Be Careful [...] Go to your health care provider or extrusion technician to treat these conditions. documented in this encounter [facility] 09-04-2022 Miscellaneous Notes The following approved [...] Last refill: 01/2022 documented in this encounter [facility] 08-14-2022 Miscellaneous Notes Noted. Spoke with [...] sometimes a discrepancy between our labs and [facility]. I would like to get a [...] receiving this information? Please advise her at [phone]. Thank you. documented in this encounter [facility] 07-13-2022 History of Presen t illness [...] due to lipid rich plaque 05/19/2021 Seeing [facility]: DANISH to Mid RCA and distal RCA 05/12/2021 Diabetes mellitus type 2, controlled, without complications ([facility]) 05/25/2016 Diastasis recti 05/26/2011 Essential hypertension, benign 10/23/2008 12/18/2016: Home BP Cuff Validated. Home BP: 155/89 Office BP: 140/88 Ex-smoker 02/02/2021 Smoked for about 50 yrs and quit around age 65. Could smoke up to 2-4 PPD. GERD without esophagitis 10/23/2008 Low folate 08/16/2021 Low serum vitamin B12 08/16/2021 Mixed hyperlipidemia 10/23/2016 Obesity, Class III, BMI 40-49.9 (morbid obesity) ([facility]) 02/06/2014 Orthostatic hypotension 05/13/2018 Primary [...] 06/21/2016 EGD (MAC) PAST SURGICAL HISTORY OF 2003 skin cancer removed from arm RPR UMBILICAL [...] 1 tablet by mouth once daily. 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 Bright to discuss drooling and follow up for back pain Keep head laceration clean and dry Return as needed documented in this encounter [facility] 07-04-2022 History of Presen t illness Narrative This is a 77 year old male who presents today with: Patient presents with: ER F/U: [facility] ER follow up 06/25 dx: fall; received 3 silvestre on back of head Cough: Started a couple weeks ago; productive, sounds wet drooling: Better after stopping florinef Back Pain: X1 yr HISTORY OF PRESENT ILLNESS: Kerry Warner is a 77 year old male. Patient presents with: ER F/U: [facility] ER follow up 06/25 dx: fall; [...] was stopped while he was in the custodial. PAST MEDICAL HISTORY: PAST MEDICAL HISTORY Diagnosis [...] due to lipid rich plaque 05/19/2021 Seeing [facility]: DANISH to Mid RCA and distal RCA 05/12/2021 Diabetes mellitus type 2, controlled, without complications ([facility]) 05/25/2016 Diastasis recti 05/26/2011 Essential hypertension, benign 10/23/2008 12/18/2016: Home BP Cuff Validated. Home BP: 155/89 Office BP: 140/88 Ex-smoker 02/02/2021 Smoked for about 50 yrs and quit around age 65. Could smoke up to 2-4 PPD. GERD without esophagitis 10/23/2008 Low folate 08/16/2021 Low serum vitamin B12 08/16/2021 Mixed hyperlipidemia 10/23/2016 Obesity, Class III, BMI 40-49.9 (morbid obesity) ([facility]) 02/06/2014 Orthostatic hypotension 05/13/2018 Primary [...] FLX DX W/COLLJ SPEC WHEN PFRMD 07/02/2018 [facility]-Steven Bojorquez-repeat 3 years DRUG ELUTING STENT [...] 1 tablet by mouth once daily. Per [facility] lisinopril (ZESTRIL, PRINIVIL) 10 mg [...] plan. This note was partially generated using [employer] voice recognition system. Note was reviewed for accuracy. There may be minor misspellings or grammar miscues with [employer] voice recognition. documented in this encounter [facility] 06-07-2022 Instructions Blake Mederos - 06/07/2022 1:08 PM EDT Your wound is now healed. There does not appear to be any signs of infection You no longer require bandage Would consider permanent removal in the future. documented in this encounter [facility] 06-07-2022 History of Presen t illness [...] 5.3 4.2 - 5.6 % Final Comment: Location:[address], [address] Point of care (POC) Hemoglobin A1c (HGBA1C) [...] specific diabetes management situations: The POC device associate project manager provides a normal range of 4.2% to 6.5% for the HGBA1C POC test. However, the [employer] guidelines indicate that patients with [...] due to lipid rich plaque 05/19/2021 Seeing [facility]: DANISH to Mid RCA and distal RCA 05/12/2021 Diabetes mellitus type 2, controlled, without complications ([facility]) 05/25/2016 Diastasis recti 05/26/2011 Essential hypertension, benign 10/23/2008 12/18/2016: Home BP Cuff Validated. Home BP: 155/89 Office BP: 140/88 Ex-smoker 02/02/2021 Smoked for about 50 yrs and quit around age 65. Could smoke up to 2-4 PPD. GERD without esophagitis 10/23/2008 Low folate 08/16/2021 Low serum vitamin B12 08/16/2021 Mixed hyperlipidemia 10/23/2016 Obesity, Class III, BMI 40-49.9 (morbid obesity) ([facility]) 02/06/2014 Orthostatic hypotension 05/13/2018 Primary [...] 1 tablet by mouth once daily. Per [facility] lisinopril (ZESTRIL, PRINIVIL) 10 mg [...] is something he wishes to do Blake Mederos DPM Patient presents with: Left Great Toe - Follow Up 2 week follow up total nail avulsion left hallux AMB ROOMING INTAKE FLOWSHEET DATA Risk Screening Do you have concerns about personal safety or safety in the home?: No Patient denies any pain today. Patient has been applying Neosporin once daily. He has finished taking his antibiotic. documented in this encounter [facility] 05-22-2022 History of Presen t illness [...] edema or varicosities noted. Non-Invasive Vascular Laboratory [facility] Lower Extremity Arterial Physiology Study Bilateral/Complete Date [...] ankle: Normal at rest. Technologist: Rabia Maradiaga RVT Ordering physician: BLAKE MEDEROS Interpreting physician: LETI Sampson DO Neuro: Protective [...] complication, without long-term current use of insulin ([facility]) Plan: Patient was seen and [...] sugar under control to prevent complications. Blake Mederos DPM AMB ROOMING INTAKE FLOWSHEET DATA Risk [...] to L hallux. documented in this encounter [facility] 05-22-2022 Instructions Blake Mederos - 05/22/2022 11:44 AM EDT Diabetes Foot [...] (or decreased sensation in your feet) a extrusion technician should always cut your toenails. Be Careful [...] Go to your health care provider or extrusion technician to treat these conditions. documented in this encounter [facility] 04-18-2022 Miscellaneous Notes Summary: APPOINTMENT SPOKE WITH DAUGHTER 04/21 APPT CX / DID NOT WANT TO R/S AT THIS TIME. documented in this encounter [facility] 03-14-2022 Miscellaneous Notes Pt notified. Pinky Clancy LPN Please notify patient that his stool were all Hemoccult negative. Yan Vargas MD documented in this encounter [facility] 03-10-2022 Miscellaneous Notes Pt. Notified of [...] Yan Vargas MD documented in this encounter [facility] 03-06-2022 History and physical note Hematology and Medical Oncology PATIENT NAME: Kerry Warner. CLINIC NO: [id number]. ATTENDING PHYSICIAN: Yan Vargas MD. DATE OF [...] 1 tablet by mouth once daily. Per [facility] lisinopril (ZESTRIL, PRINIVIL) 10 mg [...] due to lipid rich plaque 05/19/2021 Seeing [facility]: DANISH to Mid RCA and distal RCA 05/12/2021 Diabetes mellitus type 2, controlled, without complications ([facility]) 05/25/2016 Diastasis recti 05/26/2011 Essential hypertension, benign 10/23/2008 12/18/2016: Home BP Cuff Validated. Home BP: 155/89 Office BP: 140/88 Ex-smoker 02/02/2021 Smoked for about 50 yrs and quit around age 65. Could smoke up to 2-4 PPD. GERD without esophagitis 10/23/2008 Low folate 08/16/2021 Low serum vitamin B12 08/16/2021 Mixed hyperlipidemia 10/23/2016 Obesity, Class III, BMI 40-49.9 (morbid obesity) ([facility]) 02/06/2014 Orthostatic hypotension 05/13/2018 Primary [...] 1.00 - 4.00 k/uL 1.57 1.56 1.55 [place]% % 7.2 6.7 5.8 Abs [place] <0.87 k/uL 0.43 0.47 0.42 Eosin% % [...] with more than 50% of the total [id number] time of the visit in counseling / coordination of care. The patient and family were allowed enough time to ask questions. All questions were answered to their satisfaction. Patient and family verbalized understanding of anemia of chronic disease and agreed to follow-up with PCP. Yan Vargas MD. ELECTRONICALLY SIGNED documented in this encounter [facility] 03-02-2022 Miscellaneous Notes Patient daughter was notified and voiced understanding. Yuly Jacques MA Left message for daughter. Yuly Jacques MA Let patient know Us of the neck arteries shows slight increase in narrowing on the left. The right was stable. The recent change in his Lipitor should help with this. documented in this encounter [facility] 03-02-2022 Miscellaneous Notes Spoke with patient's [...] Jaimee Sosa LPN documented in this encounter [facility] 02-22-2022 Miscellaneous Notes Detailed message left on Nette's confidential, identified VM. Lori Thakkar Ma Ok to give verbal order as below. Nette- [facility]- reports PT is on hold right now. Reports patient is having elevated BP problem and wearing a heart monitor for [facility]. Asking for verbal order from pcp to re-evaluate for PT once BP is stable. Please phone Nette with verbal. [phone] documented in this encounter [facility] 02-20-2022 Miscellaneous Notes Anne given PCP instructions. Voiced understanding. Yuly Jacques MA Advise Anne I'm ok with extending snf 1 time a week for 4 weeks to monitor BP. Anne from [facility] Home Health calling asking for verbal order to extend jail visits 1 time weekly for 4 weeks, to monitor his blood pressure. [facility] increased his Lisinopril 20 mg twice daily on 02/18. Today bp at 215 pm 180/90 pulse 56 and when she was leaving at 250 pm 170/80 pulse 59. Please advise documented in this encounter [facility] 02-17-2022 Nurse Note Patient was set up on BP Noman for a BP average. 203/72 A 204/72 204/71 205/74 202/70 200/71 Heartrate 58 documented in this encounter [facility] 02-17-2022 Instructions Jasson Bright MD - 02/17/2022 12:50 PM EDT Please get labs and urine test done on or after 08/04/2022 prior to your next visit. documented in this encounter [facility] 02-17-2022 History of Presen t illness [...] see brain health. Patient was recently in jail home and released about three weeks ago. He had a fall on 01/09 and 01/13. On the he was admitted then sent home and then on 01/13 he was admitted again for fall and then transferred to jail for rehab. Currently has [facility] for jail and PHYSICAL THERAPY. He did have a OT eval and felt he did not need Tx. Patient last seen [facility] for f/u and was taken off [...] due to lipid rich plaque 05/19/2021 Seeing [facility]: DANISH to Mid RCA and [...] III, BMI 40-49.9 (morbid obesity) ([facility]) 02/06/2014 Primary malignant neoplasm of skin of [...] FLX DX W/COLLJ SPEC WHEN [facility]FRMD [facility] years DRUG ELUTING STENT [...] 1 tablet by mouth once daily. Per [facility] atorvastatin (LIPITOR) 10 mg tablet [...] Lymph 1.00 - 4.00 k/uL 1.14 1.57 [place]% % 7.6 7.2 Abs [place] <0.87 k/uL 0.36 0.43 Eosin% % 11.4 [...] which included preparing to see the patient, [id number] patient care, completing clinical documentation, performing a medically appropriate examination, counseling and educating the patient/family/caregiver and ordering medications, tests, or procedures. albumin, B12 Mg, folate and PSA prior. Jasson Bright MD documented in this encounter [facility] 02-15-2022 Miscellaneous Notes Nette from [facility] health returned call and went over notes below from Dr Bright with understanding. Left message to call office. 02/14/2022 8:28 AM Yoni Quintana Ma Ok to give verbal order for [facility] visit x one this week to re-certify. CALIN Grubbs @ [facility] calling to request order for visit x one this week to recertify patient to extend home health nursing visits to monitor BP and edema. If agree, please give verbal okay. # [phone]. Brenda Willis RN documented in this encounter [facility] 02-10-2022 Miscellaneous Notes Last office visit: [...] pharmacy. No need to notify patient. Muriel Nunez [employer] documented in this encounter [facility] 02-09-2022 History of Presen t illness Narrative Images from the original note were not included. [facility] [place] Follow-up Visit Follow-up note February 09, 2022 [...] taps to L foot. Rigidity noted to JULISSAE. MRI completed since previous visit with possible tiny subacute cerebellar infarct and mod volume loss. Pt currently on Plavix, ASA, Lipitor. Pt did not have EEG due to hospitalization and new order is needed. Previous ddx including LBD, or Parkinson's Plus disorder, stroke, dementia with other unrelated gait disturbance, orthostatic hypotension secondary to cardiac disease or autonomic dysfunction, SE of florinef. At this time, given exam findings, will [...] on fludrocortisone 0.1mg TID. Also prescribed FAITH sangitae. DC'd amlodipine and spironolactone. Was discharged to [place] in [facility]. Has been working on slower [...] has been emailing daily BP readings to JUNIOR AUTOMATION ENGINEER in the office. States blood pressure has [...] Has been doing physical therapy at the custodial. 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 Benign prostatic hyperplasia with urinary obstruction 07/15/2012 Bilateral carotid artery stenosis 02/04/2021 01/2021: Rt 20-40%, Lt 60-60% BPV (benign positional vertigo) 07/01/2015 Chronic tension-type headache, not intractable 06/29/2015 Constipation, chronic 09/01/2009 Coronary artery disease due to lipid rich plaque 05/19/2021 Seeing [facility]: DANISH to Mid RCA and distal RCA 05/12/2021 Diabetes mellitus type 2, controlled, without complications ([facility]) 05/25/2016 Diastasis recti 05/26/2011 Essential hypertension, benign 10/23/2008 12/18/2016: Home BP Cuff Validated. Home BP: 155/89 Office BP: 140/88 Ex-smoker 02/02/2021 Smoked for about 50 yrs and quit around age 65. Could smoke up to 2-4 PPD. GERD without esophagitis 10/23/2008 Low folate 08/16/2021 Low serum vitamin B12 08/16/2021 Mixed hyperlipidemia 10/23/2016 Obesity, Class III, BMI 40-49.9 (morbid obesity) ([facility]) 02/06/2014 Primary malignant neoplasm of [...] FL[facility] DX W/COLLJ SPEC [facility] DR[facility] ELUTING STENT 05/12/2021 Mid and distal RCA ESOPHAGOGASTRODUODENOSCOPY TRANSORAL DIAGNOSTIC 07/23/2012 EGD ESOPHAGOGASTRODUODENOSCOPY TRANSORAL DIAGNOSTIC 06/21/2016 EGD (MAC) PAST SURGICAL HISTORY OF 2002 skin cancer removed from arm RPR UMBILICAL HERNIA < 5 YRS REDUCIBLE 2000 Hernia repair, umbilical Current Outpatient Medications on [...] 1 tablet by mouth once daily. Per [facility] atorvastatin (LIPITOR) 10 mg tablet [...] appears regular and unstressed Swelling noted to AZUL and LUE Neurologic examination: Cognitively intact. No [...] has been completing PT while admitted to [place]. As symptoms continue at this time, and given concern at previous appointments for LBD or Parkinson's Plus disorder, will place consult for center for brain health for further evaluation and recommendations. Will wait to further adjust medications until after appointment with brain [facility]. Office Visit on 02/09/22 CONSULT TO NEUROLOGY Magnloia Perdomo APRN.SUSHMA I spent a total of 45 minutes on the date of the service which included preparing to see the patient, [id number] patient care, completing clinical documentation, obtaining and/or reviewing separately obtained history, performing a medically appropriate examination, counseling and educating the patient/family/caregiver and ordering medications, tests, or procedures. documented in this encounter [facility] 02-07-2022 History of Presen t illness Narrative Patient's home health 485 form / care plan for certification period 01/26/2022 to 03/26/2022 reviewed and signed. Relevant medical records were reviewed. No changes were indicated documented in this encounter [facility] 01-31-2022 Miscellaneous Notes Noted. Sherine with [facility] Occupation Therapy calling to report to PCP that patient's blood pressure was elevated again today. It was 176/80 at beginning of OT visit today and pulse of 59. After exercises, BP was 192/74 with a pulse of 56. She reports patient denied any symptoms and is adamant about starting back on his water pill. 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 Sherine also reporting update to OT plan of care. Patient was evaluated today and one visit was needed only. Patient to continue with PT. No call back needed to Sherine. Thank you. documented in this encounter [facility] 05-03-2022 Miscellaneous Notes Left detailed vm on identified vm, with provider's message below. 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 Scarlet with [facility] called and stated she just got [...] Ely Do LPN documented in this encounter [facility] 01-24-2022 Miscellaneous Notes Left detailed message on confidential vm Rebeka Jacinto Ma Let santiago know I will follow for [facility] orders. The 90 day face to face needs competed by the provider caring for him at [facility]. Sultana with [facility] calls to report that pt will be discharged from [facility] on 01/25/22. Pt has orders for PT and OT. Sultana is asking if pcp will follow pt while in . Call Sultana with provider's verbal order that pcp will follow. Martha Virgen LPN documented in this encounter [facility] 01-20-2022 Miscellaneous Notes EEG results reviewed. Report indicates generalized slowing, but no epileptiform or electrographic seizure activity. Romeo Jarvis MD This staff verified EEG results faxed to [place] location yesterday . Patient's daughter, Jj calling for EEG results done @ [facility] on 01/13. She says [facility] is also requesting results. See previous note. Brenda Willis RN [facility] is calling asking for a copy of EEG completed at [facility] to be faxed to them [phone]. Office number [phone] [facility] ext is [phone] for any further questions. Spoke with patients daughter, aware of consult, requesting orders faxed to [facility]. Also requesting OV to follow up testing results. Will need to be placed on wait list, no openings in [place] with Jose Luis Perdomo APRN, CNP for several weeks. Jaimee Sosa LPN ----- Message from Magnolia Perdomo APRN.SCHOOL PATROL sent at 01/12/2022 12:48 PM EDT ----- Spoke with neurologist at [facility] and concern regarding blood pressure fluctuations. Discussed consult to autonomic clinic and consult placed. documented in this encounter [facility] 01-12-2022 History of Presen t illness Narrative Spoke with neurology treating patient at [facility]. Concern regarding fluctuation in blood pressure and medications. Previous consideration for referral to autonomic clinic. After discussion with neurology will place consult at this time for further review of medications. documented in this encounter [facility] 01-11-2022 Miscellaneous Notes Called the patient's daughter and offered an appointment for 01/12 with the nurse practitioner. The patient is currently scheduled at the [facility] for EEG on February 01. The daughter is going to call and try to have a sooner appointment for the EEG. They will call [phone] to schedule an appointment with the provider after the EEG test. Dr. Marii Waters from [facility] calling to request Dr. Jarvis to call her cell as soon as possible at [phone] regarding patient update. Thank you. Jacque Epps RN documented in this encounter [facility] 01-04-2022 Miscellaneous Notes Sultana notified that [...] with Dr. Bright in 1-2 weeks. Sultana RN from [facility] calls and states that patient is being discharged from [facility] Today 01/04/2022 with the diagnosis of [...] Lori Quinteros RN documented in this encounter [facility] 12-23-2021 Miscellaneous Notes Please call the patient's MICHAEL Reza at [phone] to schedule the patient for a follow-up appointment with Dr. Jarvis. The follow-up is for mental status and EEG results done at [facility]. Called the patient and spoke with MICHAEL Reza. The wants to have his EEG done at the [facility]. for Registration. Faxed the order and requested them to call the patient to schedule and to fax results to office. documented in this encounter [facility] 08-26-2021 Note HNO ID: [id number] Author: Lillian Stanley RN Service: Care Management Author Type: Registered Nurse Type: Care Mgt Progress Note Filed: 08/26/2021 12:51 PM Note Text: CARE MANAGEMENT PROGRESS NOTE SERVICE DATE: 08/26/2021 SERVICE TIME: 1248 LOS: 9 days Admission Date: 08/17/2021 DISCHARGE ARRANGEMENT (list agency and phone number) Discharge Arrangement: [facility]way Facility Was an expedited discharge program used?: Yes Type: Other: See Comment (THP waiver) Provider Name: Jasson Bright Phone: . CAREGIVER ASSESSMENT: HANDOFF COMMUNICATION: Handoff to: Primary Care Physician Primary Care Physician Name/Phone: Jasson Bright TRANSPORTATION ARRANGEMENTS: Transportation Arrangements: Ambulance/[facility] Agency and Phone #:: [facility] [phone] Date of Trip: 08/26/21 Time of Trip: 1730 Type of Service: BLS Non-emergency Is Patient Medicaid Pending?: No Discussion of financial coverage occurred with: Family Parking Meter Servicer Location: [place] [facility] Care Management Responsibility: None ADDITIONAL CONTACT RESOURCES: [phone] Discharge Information Row Name ED to Hosp-Admission (Current) from 08/17/2021 in [facility] Agency [facility] Pt will be discharged to SNF at 1730 today, notified pt's daughter Jj and pt of filler picker time. CALIN Carcamo aware envelope on chart to call report and filler picker time. SIGNATURE: Lillian Stanley RN PATIENT NAME: Kerry Warner DATE: August 26, 2021 TIME: 12:48 PM PAGER/CONTACT #: [phone] [facility] 08-26-2021 Note HNO ID: [id number] Author: Lillian Stanley RN Service: Care Management Author Type: Registered Nurse Type: Care Mgt Progress Note Filed: 08/26/2021 11:42 AM Note Text: CARE MANAGEMENT PROGRESS NOTE SERVICE DATE: 08/26/2021 SERVICE TIME: 1142 LOS: 9 days IMM Follow Up Copy Given: Yes Copy given to:: Patient Director Of Accounts Payable Director Of Accounts Payable Name/Relationship: Jj Cooney-saranya Method: By Phone . SIGNATURE: Lillian Stanley RN PATIENT NAME: Kerry Warner DATE: August 26, 2021 TIME: 11:42 AM PAGER/CONTACT #: [phone] [facility] 08-25-2021 Note HNO ID: [id number] Author: Carin Calixto APRN.CNP Service: Hospital Medicine Author Type: Nurse Practitioner Type: Progress Notes Filed: 08/25/2021 2:07 PM Note Text: DEPARTMENT OF HOSPITAL MEDICINE PROGRESS NOTE SERVICE DATE: 08/25/2021 SERVICE TIME: 12:33 PM Hospital Medicine/Primary Attending: Clifton Sarmiento MD NIGHT AND WEEKEND COVERAGE: [place] [place] COVERAGE: Days: [phone], please page attending physician. Nights: [phone], please page [place] Hospitalist Night coverage pager [phone]. Subjective CC: Shortness of breath INTERVAL HPI: [...] - PRN Se (more content not included)... [facility] 08-24-2021 Note HNO ID: [id number] Author: Karan Almaguer PA-C Service: Hospital Medicine Author Type: Physician Medical Historian Type: Progress Notes Filed: 08/24/2021 5:41 PM Note Text: DEPARTMENT OF HOSPITAL MEDICINE PROGRESS NOTE SERVICE DATE: 08/24/2021 SERVICE TIME: 11:57 AM Hospital Medicine/Primary Attending: Clifton Sarmiento MD NIGHT AND WEEKEND COVERAGE: [place] [place] COVERAGE: Days: [phone], please page attending physician. Nights: [phone], please page [place] Hospitalist Night coverage pager [phone]. Subjective CC: Shortness of breath INTERVAL HPI: [...] - Fall precautions Orthostatic hypotension - On allison Berry (more content not included)... [facility] 08-23-2021 Note HNO ID: [id number] Author: Lillian Satnley RN Service: Care Management Author Type: Registered Nurse Type: Care Mgt Progress Note Filed: 08/23/2021 4:24 PM Note Text: CARE MANAGEMENT PROGRESS NOTE SERVICE DATE: 08/23/2021 SERVICE TIME: 1622 LOS: 6 days progress note Received telephone call from Chica, pt's daughter, she confirmed that she does want her father to go to [facility]. Requested precert be started now. SIGNATURE: Lillian Stanley RN PATIENT NAME: Kerry Warner DATE: August 23, 2021 TIME: 4:21 PM PAGER/CONTACT #: [phone] [facility] 08-23-2021 Note HNO ID: [id number] Author: Sheba Stevens, BRIDGE PAINTER HELPER.SCHOOL PATROL Service: Hospital Medicine Author Type: Nurse Practitioner Type: Progress Notes Filed: 08/23/2021 1:04 PM Note Text: DEPARTMENT OF HOSPITAL MEDICINE PROGRESS NOTE SERVICE DATE: 08/23/2021 SERVICE TIME: 11:57 AM Hospital Medicine/Primary Attending: Clifton Sarmiento MD NIGHT AND WEEKEND COVERAGE: [place] [place] COVERAGE: Days: [phone], please page attending physician. Nights: [phone], please page [place] Hospitalist Night coverage pager [phone]. Subjective CC: Shortness of breath INTERVAL HPI: [...] fully oriented on (more content not included)... [facility] 08-22-2021 Note HNO ID: [id number] Author: Sheba Stevens APRN.SCHOOL PATROL Service: Hospital Medicine Author Type: Nurse Practitioner Type: Progress Notes Filed: 08/22/2021 3:30 PM Note Text: DEPARTMENT OF HOSPITAL MEDICINE PROGRESS NOTE SERVICE DATE: 08/22/2021 SERVICE TIME: 11:57 AM Hospital Medicine/Primary Attending: Clifton Sarmiento MD NIGHT AND WEEKEND COVERAGE: [place] [place] COVERAGE: Days: [phone], please page attending physician. Nights: [phone], please page [facility] Hospital[facility] Night coverage pager [phone]. Subjective CC: Shortness of breath INTERVAL HPI: Feeling well today without complaints. No chest pain or shortness of breath. Cough not present on assessment. BLE generalized edema noted. Discussed discharge plan with daughter, Libia PT/OT recommending SNF, daughter would like the the patient to return home with [facility]. PT/OT re evaluated and again recommending [...] ago - Kimberley (more content not included)... [facility] 08-22-2021 Note HNO ID: [id number] Author: Lillian Stanley RN Service: Care Management [...] 22, 2021 TIME: 1:17 PM PAGER/CONTACT #: [phone] [facility] documented as of this encounter (statuses as of 02/19/2022) [facility]11-[facility]-2021 History of Past illness Narrative* Problem Noted Date Resolved Date Malnutrition of moderate degree 08/22/2021 02/17/2022 COPD exacerbation 08/17/2021 08/26/2021 Upper back strain 02/19/2018 02/02/2021 Tubulovillous adenoma polyp of colon 06/21/2016 06/21/2016 Chronic superficial gastritis without bleeding 0 06/21/2016 06/21/2016 Hypokalemia 02/12/2015 05/06/2015 Tobacco use disorder 10/23/2008 12/19/2011 documented as of this encounter (statuses as of 02/20/2022) [facility] History of Past illness Narrative* Problem Noted Date Resolved Date Malnutrition of moderate degree 08/22/2021 02/17/2022 COPD exacerbation 08/17/2021 08/26/2021 Upper back strain 02/19/2018 02/02/2021 Tubulovillous adenoma polyp of colon 06/21/2016 06/21/2016 Chronic superficial gastritis without bleeding 0 06/21/2016 06/21/2016 Hypokalemia 02/12/2015 05/06/2015 Tobacco use disorder 10/23/2008 12/19/2011 documented as of this encounter (statuses as of 02/22/2022) [facility] History of Past illness Narrative* Problem Noted Date Resolved Date Malnutrition of moderate degree 08/22/2021 02/17/2022 COPD exacerbation 08/17/2021 08/26/2021 Upper back strain 02/19/2018 02/02/2021 Tubulovillous adenoma polyp of colon 06/21/2016 06/21/2016 Chronic superficial gastritis without bleeding 0 06/21/2016 06/21/2016 Hypokalemia 02/12/2015 05/06/2015 Tobacco use disorder 10/23/2008 12/19/2011 documented as of this encounter (statuses as of 03/02/2022) [facility] History of Past illness Narrative* Problem Noted Date Resolved Date Malnutrition of moderate degree 08/22/2021 02/17/2022 COPD exacerbation 08/17/2021 08/26/2021 Upper back strain 02/19/2018 02/02/2021 Tubulovillous adenoma polyp of colon 06/21/2016 06/21/2016 Chronic superficial gastritis without bleeding 0 06/21/2016 06/21/2016 Hypokalemia 02/12/2015 05/06/2015 Tobacco use disorder 10/23/2008 12/19/2011 documented as of this encounter (statuses as of 03/02/2022) [facility] History of Past illness Narrative* Problem Noted Date Resolved Date Malnutrition of moderate degree 08/22/2021 02/17/2022 COPD exacerbation 08/17/2021 08/26/2021 Upper back strain 02/19/2018 02/02/2021 Tubulovillous adenoma polyp of colon 06/21/2016 06/21/2016 Chronic superficial gastritis without bleeding 0 06/21/2016 06/21/2016 Hypokalemia 02/12/2015 05/06/2015 Tobacco use disorder 10/23/2008 12/19/2011 documented as of this encounter (statuses as of 03/07/2022) [facility] History of Past illness Narrative* Problem Noted Date Resolved Date Malnutrition of moderate degree 08/22/2021 02/17/2022 COPD exacerbation 08/17/2021 08/26/2021 Upper back strain 02/19/2018 02/02/2021 Tubulovillous adenoma polyp of colon 06/21/2016 06/21/2016 Chronic superficial gastritis without bleeding 0 06/21/2016 06/21/2016 Hypokalemia 02/12/2015 05/06/2015 Tobacco use disorder 10/23/2008 12/19/2011 documented as of this encounter (statuses as of 03/10/2022) [facility] History of Past illness Narrative* Problem Noted Date Resolved Date Malnutrition of moderate degree 08/22/2021 02/17/2022 COPD exacerbation 08/17/2021 08/26/2021 Upper back strain 02/19/2018 02/02/2021 Tubulovillous adenoma polyp of colon 06/21/2016 06/21/2016 Chronic superficial gastritis without bleeding 0 06/21/2016 06/21/2016 Hypokalemia 02/12/2015 05/06/2015 Tobacco use disorder 10/23/2008 12/19/2011 documented as of this encounter (statuses as of 03/14/2022) [facility] History of Past illness Narrative* Problem Noted Date Resolved Date Malnutrition of moderate degree 08/22/2021 02/17/2022 COPD exacerbation 08/17/2021 08/26/2021 Upper back strain 02/19/2018 02/02/2021 Tubulovillous adenoma polyp of colon 06/21/2016 06/21/2016 Chronic superficial gastritis without bleeding 0 06/21/2016 06/21/2016 Hypokalemia 02/12/2015 05/06/2015 Tobacco use disorder 10/23/2008 12/19/2011 documented as of this encounter (statuses as of 04/18/2022) [facility] History of Past illness Narrative* Problem Noted Date Resolved Date Malnutrition of moderate degree 08/22/2021 02/17/2022 COPD exacerbation 08/17/2021 08/26/2021 Upper back strain 02/19/2018 02/02/2021 Tubulovillous adenoma polyp of colon 06/21/2016 06/21/2016 Chronic superficial gastritis without bleeding 0 06/21/2016 06/21/2016 Hypokalemia 02/12/2015 05/06/2015 Tobacco use disorder 10/23/2008 12/19/2011 documented as of this encounter (statuses as of 05/23/2022) [facility] History of Past illness Narrative* Problem Noted Date Resolved Date Malnutrition of moderate degree 08/22/2021 02/17/2022 COPD exacerbation 08/17/2021 08/26/2021 Upper back strain 02/19/2018 02/02/2021 Tubulovillous adenoma polyp of colon 06/21/2016 06/21/2016 Chronic superficial gastritis without bleeding 0 06/21/2016 06/21/2016 Hypokalemia 02/12/2015 05/06/2015 Tobacco use disorder 10/23/2008 12/19/2011 documented as of this encounter (statuses as of 06/07/2022) [facility] History of Past illness Narrative* Problem Noted Date Resolved Date Malnutrition of moderate degree 08/22/2021 02/17/2022 COPD exacerbation 08/17/2021 08/26/2021 Upper back strain 02/19/2018 02/02/2021 Tubulovillous adenoma polyp of colon 06/21/2016 06/21/2016 Chronic superficial gastritis without bleeding 0 06/21/2016 06/21/2016 Hypokalemia 02/12/2015 05/06/2015 Tobacco use disorder 10/23/2008 12/19/2011 documented as of this encounter (statuses as of 07/04/2022) [facility] History of Past illness Narrative* Problem Noted Date Resolved Date Malnutrition of moderate degree 08/22/2021 02/17/2022 COPD exacerbation 08/17/2021 08/26/2021 Upper back strain 02/19/2018 02/02/2021 Tubulovillous adenoma polyp of colon 06/21/2016 06/21/2016 Chronic superficial gastritis without bleeding 0 06/21/2016 06/21/2016 Hypokalemia 02/12/2015 05/06/2015 Tobacco use disorder 10/23/2008 12/19/2011 documented as of this encounter (statuses as of 07/13/2022) [facility] History of Past illness Narrative* Problem Noted Date Resolved Date Malnutrition of moderate degree 08/22/2021 02/17/2022 COPD exacerbation 08/17/2021 08/26/2021 Upper back strain 02/19/2018 02/02/2021 Tubulovillous adenoma polyp of colon 06/21/2016 06/21/2016 Chronic superficial gastritis without bleeding 0 06/21/2016 06/21/2016 Hypokalemia 02/12/2015 05/06/2015 Tobacco use disorder 10/23/2008 12/19/2011 documented as of this encounter (statuses as of 08/14/2022) [facility] History of Past illness Narrative* Problem Noted Date Resolved Date Malnutrition of moderate degree 08/22/2021 02/17/2022 COPD exacerbation 08/17/2021 08/26/2021 Upper back strain 02/19/2018 02/02/2021 Tubulovillous adenoma polyp of colon 06/21/2016 06/21/2016 Chronic superficial gastritis without bleeding 0 06/21/2016 06/21/2016 Hypokalemia 02/12/2015 05/06/2015 Tobacco use disorder 10/23/2008 12/19/2011 documented as of this encounter (statuses as of 09/04/2022) [facility] History of Past illness Narrative* Problem Noted Date Resolved Date Malnutrition of moderate degree 08/22/2021 02/17/2022 COPD exacerbation 08/17/2021 08/26/2021 Upper back strain 02/19/2018 02/02/2021 Tubulovillous adenoma polyp of colon 06/21/2016 06/21/2016 Chronic superficial gastritis without bleeding 0 06/21/2016 06/21/2016 Hypokalemia 02/12/2015 05/06/2015 Tobacco use disorder 10/23/2008 12/19/2011 documented as of this encounter (statuses as of 09/06/2022) [facility] History of Past illness Narrative* Problem Noted Date Resolved Date Malnutrition of moderate degree 08/22/2021 02/17/2022 COPD exacerbation 08/17/2021 08/26/2021 Upper back strain 02/19/2018 02/02/2021 Tubulovillous adenoma polyp of colon 06/21/2016 06/21/2016 Chronic superficial gastritis without bleeding 0 06/21/2016 06/21/2016 Hypokalemia 02/12/2015 05/06/2015 Tobacco use disorder 10/23/2008 12/19/2011 documented as of this encounter (statuses as of 10/04/2022) [facility] History of Past illness Narrative* Problem Noted Date Resolved Date Malnutrition of moderate degree 08/22/2021 02/17/2022 COPD exacerbation 08/17/2021 08/26/2021 Upper back strain 02/19/2018 02/02/2021 Tubulovillous adenoma polyp of colon 06/21/2016 06/21/2016 Chronic superficial gastritis without bleeding 0 06/21/2016 06/21/2016 Hypokalemia 02/12/2015 05/06/2015 Tobacco use disorder 10/23/2008 12/19/2011 documented as of this encounter (statuses as of 01/08/2023) [facility] History of Past illness Narrative* Problem Noted Date Resolved Date Malnutrition of moderate degree 08/22/2021 02/17/2022 COPD exacerbation 08/17/2021 08/26/2021 Upper back strain 02/19/2018 02/02/2021 Tubulovillous adenoma polyp of colon 06/21/2016 06/21/2016 Chronic superficial gastritis without bleeding 0 06/21/2016 06/21/2016 Hypokalemia 02/12/2015 05/06/2015 Tobacco use disorder 10/23/2008 12/19/2011 documented as of this encounter (statuses as of 02/02/2023) [facility] History of Past illness Narrative* Problem Noted Date Resolved Date Malnutrition of moderate degree 08/22/2021 02/17/2022 COPD exacerbation 08/17/2021 08/26/2021 Upper back strain 02/19/2018 02/02/2021 Tubulovillous adenoma polyp of colon 06/21/2016 06/21/2016 Chronic superficial gastritis without bleeding 0 06/21/2016 06/21/2016 Hypokalemia 02/12/2015 05/06/2015 Tobacco use disorder 10/23/2008 12/19/2011 documented as of this encounter (statuses as of 02/05/2023) [facility]2021 History of Past illness Narrative* Problem Noted Date Resolved Date Malnutrition of moderate degree 08/22/2021 02/17/2022 COPD exacerbation 08/17/2021 08/26/2021 Upper back strain 02/19/2018 02/02/2021 Tubulovillous adenoma polyp of colon 06/21/2016 06/21/2016 Chronic superficial gastritis without bleeding 0 06/21/2016 06/21/2016 Hypokalemia 02/12/2015 05/06/2015 Tobacco use disorder 10/23/2008 12/19/2011 documented as of this encounter (statuses as of 02/28/2023) [facility] History of Past illness Narrative* Problem Noted Date Resolved Date Malnutrition of moderate degree 08/22/2021 02/17/2022 COPD exacerbation 08/17/2021 08/26/2021 Upper back strain 02/19/2018 02/02/2021 Tubulovillous adenoma polyp of colon 06/21/2016 06/21/2016 Chronic superficial gastritis without bleeding 0 06/21/2016 06/21/2016 Hypokalemia 02/12/2015 05/06/2015 Tobacco use disorder 10/23/2008 12/19/2011 documented as of this encounter (statuses as of 03/01/2023) [facility] History of Past illness Narrative* Problem Noted Date Resolved Date Malnutrition of moderate degree 08/22/2021 02/17/2022 COPD exacerbation 08/17/2021 08/26/2021 Upper back strain 02/19/2018 02/02/2021 Tubulovillous adenoma polyp of colon 06/21/2016 06/21/2016 Chronic superficial gastritis without bleeding 0 06/21/2016 06/21/2016 Hypokalemia 02/12/2015 05/06/2015 Tobacco use disorder 10/23/2008 12/19/2011 documented as of this encounter (statuses as of 03/05/2023) [facility] History of Past illness Narrative* Problem Noted Date Diagnosed Date Resolved Date Malnutrition of moderate degree 08/22/2021 02/17/2022 COPD exacerbation 08/17/2021 08/26/2021 Upper back strain 02/19/2018 02/02/2021 Tubulovillous adenoma polyp of colon 06/21/2016 06/21/2016 Chronic superficial gastriti s without bleeding 06/21/2016 06/21/2016 Hypokalemia 02/12/2015 05/06/2015 Tobacco use disorder 10/23/2008 012 documented as of this encounter (statuses as of 04/18/2023) [facility] History of Past illness Narrative* Problem Noted Date Diagnosed Date Resolved Date Malnutrition of moderate degree 08/22/2021 02/17/2022 COPD exacerbation 08/17/2021 08/26/2021 Upper back strain 02/19/2018 02/02/2021 Tubulovillous adenoma polyp of colon 06/21/2016 06/21/2016 Chronic superficial gastriti s without bleeding 06/21/2016 06/21/2016 Hypokalemia 02/12/2015 05/06/2015 Tobacco use disorder 10/23/2008 012 documented as of this encounter (statuses as of 05/17/2023) [facility] History of Past illness Narrative* Problem Noted Date Diagnosed Date Resolved Date Malnutrition of moderate degree 08/22/2021 02/17/2022 COPD exacerbation 08/17/2021 08/26/2021 Upper back strain 02/19/2018 02/02/2021 Tubulovillous adenoma polyp of colon 06/21/2016 06/21/2016 Chronic superficial gastriti s without bleeding 06/21/2016 06/21/2016 Hypokalemia 02/12/2015 05/06/2015 Tobacco use disorder 10/23/2008 012 documented as of this encounter (statuses as of 05/18/2023) [facility] History of Past illness Narrative* Problem Noted Date Diagnosed Date Resolved Date Malnutrition of moderate degree 08/22/2021 02/17/2022 COPD exacerbation 08/17/2021 08/26/2021 Upper back strain 02/19/2018 02/02/2021 Tubulovillous adenoma polyp of colon 06/21/2016 06/21/2016 Chronic superficial gastriti s without bleeding 06/21/2016 06/21/2016 Hypokalemia 02/12/2015 05/06/2015 Tobacco use disorder 10/23/2008 012 documented as of this encounter (statuses as of 05/18/2023) [facility] History of Past illness Narrative* Problem Noted Date Diagnosed Date Resolved Date Malnutrition of moderate degree 08/22/2021 02/17/2022 COPD exacerbation 08/17/2021 08/26/2021 Upper back strain 02/19/2018 02/02/2021 Tubulovillous adenoma polyp of colon 06/21/2016 06/21/2016 Chronic superficial gastriti s without bleeding 06/21/2016 06/21/2016 Hypokalemia 02/12/2015 05/06/2015 Tobacco use disorder 10/23/2008 012 documented as of this encounter (statuses as of 05/28/2023) [facility] History of Past illness Narrative* Problem Noted Date Diagnosed Date Resolved Date Malnutrition of moderate degree 08/22/2021 02/17/2022 COPD exacerbation 08/17/2021 08/26/2021 Upper back strain 02/19/2018 02/02/2021 Tubulovillous adenoma polyp of colon 06/21/2016 06/21/2016 Chronic superficial gastriti s without bleeding 06/21/2016 06/21/2016 Hypokalemia 02/12/2015 05/06/2015 Tobacco use disorder 10/23/2008 012 documented as of this encounter (statuses as of 08/18/2023) [facility] History of Past illness Narrative* Problem Noted Date Diagnosed Date Resolved Date Malnutrition of moderate degree 08/22/2021 02/17/2022 COPD exacerbation 08/17/2021 08/26/2021 Upper back strain 02/19/2018 02/02/2021 Tubulovillous adenoma polyp of colon 06/21/2016 06/21/2016 Chronic superficial gastriti s without bleeding 06/21/2016 06/21/2016 Hypokalemia 02/12/2015 05/06/2015 Tobacco use disorder 10/23/2008 012 documented as of this encounter (statuses as of 11/20/2023) [facility]2021 NoteHNO ID: [id number] Author: Carin Calixto APRN.CNP Service: Hospital Medicine Author Type: Nurse Practitioner Type: Progress Notes Filed: 08/21/2021 12:01 PM Note Text: DEPARTMENT OF HOSPITAL MEDICINE PROGRESS NOTE SERVICE DATE: 08/21/2021 SERVICE TIME: 11:57 AM Hospital Medicine/Primary Attending: Clifton Sarmiento MD NIGHT AND WEEKEND COVERAGE: [employer] [place] C[employer]: Days: [phone], please page attending physician. Nights: [phone], please page [facility] Night coverage pager [phone]. Subjective CC: Shortness of breath INTERVAL HPI: [...] up with neurolo (more content not included)... [facility] [id number] NoteHNO ID: [id number] Author: Carin Calixto APRN.CNP Service: Hospital Medicine Author Type: Nurse Practitioner Type: Progress Notes Filed: 08/20/2021 11:33 AM Note Text: DEPARTMENT OF HOSPITAL MEDICINE PROGRESS NOTE SERVICE DATE: 08/20/2021 SERVICE TIME: 11:21 AM Hospital Medicine/Primary Attending: Clifton Sarmiento MD NIGHT AND WEEKEND COVERAGE: [place] [place] [employer]: Days: [phone], please page attending physician. Nights: [phone], please page [facility] Night coverage pager [phone]. Subjective CC: Shortness of breath INTERVAL HPI: [...] contributing - Will s (more content not included)...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 Stated Goals: To have reduction in pain;To [...] Current Advance Directive: Health Care Power of [place] Converter Operator In Chart: No Health LiteracyHow often do [...] patient:: Daughter Name of Informant: : Jj Sahu Functional Status: Needs Assistance Does Patient Currently Receive Any Community Services or Home Care?: Home Health Care Agency ([facility]) Equipment Prior to Admission: Walker;Wheelchair;Tub bench/chair;Oxygen (transfer chair from toilet to tub) Liters per minute: PRN Has the Patient Been in a Halfway Facility in the Past 30 days?: No [...] Completely I feel financially burdened by my [id number] expenses for my prescription medication:: 0 - Disagree Completely Risk Score: 0 Patient is categorized as: Low risk < 2 Are you interested in bedside delivery of your medications? No Is Patient Psychosocially Complex?: No ASSESSMENT AND PLAN: Medical Needs: Medical Needs: Two or more chronic diseases;Obesity;Durable Medical Equipment;Fall risk or frequent falls Psychosocial Needs: Psychosocial Needs: None FREEDOM OF CHOICE EXPLAINED: [place] of Choice Given: Yes Level of Care Discussed: Home Care;Halfway Facility POTENTIAL TRANSITION PLANS To Be Determined Telephoned and spoke with Jj Cooney daughter since pt was confused. Pt was admitted to [facility] in May and then [facility] [place], was discharged to home with [facility]. Pt was being discharged this week from home care services. Jj states pt has been doing really well at home but has been depressed due to spouse in 2020. Jj will speak with family regarding SNF vs. Home with C and she will notify me this afternoon their decision. SIGNATURE: Lillian Stanley RN PATIENT NAME: Kerry Warner DATE: August 19, 2021 TIME: 2:04 PM PAGER/CONTACT #: [phone] NoteHNO ID: [id number] Author: Carin Calixto APRN.CNP Service: Hospital Medicine Author Type: Nurse Practitioner Type: Progress Notes Filed: 08/19/2021 1:23 PM Note Text: DEPARTMENT OF HOSPITAL MEDICINE PROGRESS NOTE SERVICE DATE: 08/19/2021 SERVICE TIME: 11:24 AM Hospital Medicine/Primary Attending: Clifton Sarmiento MD NIGHT AND WEEKEND COVERAGE: [employer] [place] [employer]OVER[employer]: Days: [phone], please page attending physician. Nights: [phone], please page [facility] Night coverage pager [phone]. Subjective CC: Shortness of breath INTERVAL HPI: [...] and Non-Pharmacologic VTE Prophylaxis/Anticoagulant (more content not included)...[facility] [id number] NoteHNO ID: [id number] Author: Lillian Stanley RN Service: Care Management Author Type: Registered Nurse Type: Care Mgt Progress Note Filed: 08/18/2021 5:15 PM Note Text: CARE MANAGEMENT PROGRESS NOTE SERVICE DATE: 08/18/2021 SERVICE TIME: 1714 LOS: 1 day progress note Telephoned and left message for pt's daughter Jj Cooney, will call tomorrow to complete assessment since hes confused. SIGNATURE: Lillian Stanley RN PATIENT NAME: Kerry Warner DATE: August 18, 2021 TIME: 5:14 PM PAGER/CONTACT #: [phone] NoteHNO ID: [id number] Author: Carin Calixto APRN.CNP Service: Hospital Medicine Author Type: Nurse Practitioner Type: Progress Notes Filed: 08/18/2021 4:10 PM Note Text: DEPARTMENT OF HOSPITAL MEDICINE PROGRESS NOTE SERVICE DATE: 08/18/2021 SERVICE TIME: 10:06 AM Hospital Medicine/Primary Attending: Clifton Sarmiento MD NIGHT AND WEEKEND COVERAGE: [employer] [place] COVERAGE: Days: [phone], please page attending physician. Nights: [phone], please page [facility] Night coverage pager [phone]. Subjective CC: Shortness of breath INTERVAL HPI: [...] aspirin, enteric coated 8 (more content not included)...[facility] [id number] History of Past illness Narrative* Problem Noted Date Resolved Date COPD exacerbation 08/17/2021 08/26/2021 Upper back strain 02/19/2018 02/02/2021 Tubulovillous adenoma polyp of colon 06/21/2016 06/21/2016 Chronic superficial gastritis without bleeding 0 06/21/2016 06/21/2016 Hypokalemia 02/12/2015 05/06/2015 Tobacco use disorder 10/23/2008 12/19/2011 documented as of this encounter (statuses as of 01/04/2022) [place] [address]-17-2021 History of Past illness Narrative* Problem Noted Date Resolved Date COPD exacerbation 08/17/2021 08/26/2021 Upper back strain 02/19/2018 02/02/2021 Tubulovillous adenoma polyp of colon 06/21/2016 06/21/2016 Chronic superficial gastritis without bleeding 0 06/21/2016 06/21/2016 Hypokalemia 02/12/2015 05/06/2015 Tobacco use disorder 10/23/2008 12/19/2011 documented as of this encounter (statuses as of 01/11/2022) [facility] History of Past illness Narrative* Problem Noted Date Resolved Date COPD exacerbation 08/17/2021 08/26/2021 Upper back strain 02/19/2018 02/02/2021 Tubulovillous adenoma polyp of colon 06/21/2016 06/21/2016 Chronic superficial gastritis without bleeding 0 06/21/2016 06/21/2016 Hypokalemia 02/12/2015 05/06/2015 Tobacco use disorder 10/23/2008 12/19/2011 documented as of this encounter (statuses as of 01/11/2022) [facility] History of Past illness Narrative* Problem Noted Date Resolved Date COPD exacerbation 08/17/2021 08/26/2021 Upper back strain 02/19/2018 02/02/2021 Tubulovillous adenoma polyp of colon 06/21/2016 06/21/2016 Chronic superficial gastritis without bleeding 0 06/21/2016 06/21/2016 Hypokalemia 02/12/2015 05/06/2015 Tobacco use disorder 10/23/2008 12/19/2011 documented as of this encounter (statuses as of 01/12/2022) [facility] History of Past illness Narrative* Problem Noted Date Resolved Date COPD exacerbation 08/17/2021 08/26/2021 Upper back strain 02/19/2018 02/02/2021 Tubulovillous adenoma polyp of colon 06/21/2016 06/21/2016 Chronic superficial gastritis without bleeding 0 06/21/2016 06/21/2016 Hypokalemia 02/12/2015 05/06/2015 Tobacco use disorder 10/23/2008 12/19/2011 documented as of this encounter (statuses as of 01/20/2022) [facility] History of Past illness Narrative* Problem Noted Date Resolved Date COPD exacerbation 08/17/2021 08/26/2021 Upper back strain 02/19/2018 02/02/2021 Tubulovillous adenoma polyp of colon 06/21/2016 06/21/2016 Chronic superficial gastritis without bleeding 0 06/21/2016 06/21/2016 Hypokalemia 02/12/2015 05/06/2015 Tobacco use disorder 10/23/2008 12/19/2011 documented as of this encounter (statuses as of 01/24/2022) [facility] History of Past illness Narrative* Problem Noted Date Resolved Date COPD exacerbation 08/17/2021 08/26/2021 Upper back strain 02/19/2018 02/02/2021 Tubulovillous adenoma polyp of colon 06/21/2016 06/21/2016 Chronic superficial gastritis without bleeding 0 06/21/2016 06/21/2016 Hypokalemia 02/12/2015 05/06/2015 Tobacco use disorder 10/23/2008 12/19/2011 documented as of this encounter (statuses as of 01/31/2022) [facility] History of Past illness Narrative* Problem Noted Date Resolved Date COPD exacerbation 08/17/2021 08/26/2021 Upper back strain 02/19/2018 02/02/2021 Tubulovillous adenoma polyp of colon 06/21/2016 06/21/2016 Chronic superficial gastritis without bleeding 0 06/21/2016 06/21/2016 Hypokalemia 02/12/2015 05/06/2015 Tobacco use disorder 10/23/2008 12/19/2011 documented as of this encounter (statuses as of 01/31/2022) [facility] History of Past illness Narrative* Problem Noted Date Resolved Date COPD exacerbation 08/17/2021 08/26/2021 Upper back strain 02/19/2018 02/02/2021 Tubulovillous adenoma polyp of colon 06/21/2016 06/21/2016 Chronic superficial gastritis without bleeding 0 06/21/2016 06/21/2016 Hypokalemia 02/12/2015 05/06/2015 Tobacco use disorder 10/23/2008 12/19/2011 documented as of this encounter (statuses as of 02/07/2022) [facility] History of Past illness Narrative* Problem Noted Date Resolved Date COPD exacerbation 08/17/2021 08/26/2021 Upper back strain 02/19/2018 02/02/2021 Tubulovillous adenoma polyp of colon 06/21/2016 06/21/2016 Chronic superficial gastritis without bleeding 0 06/21/2016 06/21/2016 Hypokalemia 02/12/2015 05/06/2015 Tobacco use disorder 10/23/2008 12/19/2011 documented as of this encounter (statuses as of 02/10/2022) [facility] History of Past illness Narrative* Problem Noted Date Resolved Date COPD exacerbation 08/17/2021 08/26/2021 Upper back strain 02/19/2018 02/02/2021 Tubulovillous adenoma polyp of colon 06/21/2016 06/21/2016 Chronic superficial gastritis without bleeding 0 06/21/2016 06/21/2016 Hypokalemia 02/12/2015 05/06/2015 Tobacco use disorder 10/23/2008 12/19/2011 documented as of this encounter (statuses as of 02/13/2022) [facility] History of Past illness Narrative* Problem Noted Date Resolved Date COPD exacerbation 08/17/2021 08/26/2021 Upper back strain 02/19/2018 02/02/2021 Tubulovillous adenoma polyp of colon 06/21/2016 06/21/2016 Chronic superficial gastritis without bleeding 0 06/21/2016 06/21/2016 Hypokalemia 02/12/2015 05/06/2015 Tobacco use disorder 10/23/2008 12/19/2011 documented as of this encounter (statuses as of 02/15/2022) [facility] Diagnosis Orthostatic hypotension- Primary [facility] Diagnosis Parkinson disease (HCC)- Primary Paralysis agitans Alzheimer's disease (HCC) Alzheimer's disease Visual hallucination Psychophysical visual disturbances Falling Unspecified fall Orthostatic hypotension Obstructive chronic bronchitis without exacerbation (HCC) Obstructive chronic bronchitis without exacerbation Atherosclerosis of [place] coronary artery without angina pectoris, unspecified whether [place] or transplanted heart Hypertensive heart disease with congestive heart failure, unspecified heart failure type (HCC) Heart failure, unspecified HF chronicity, unspecified heart failure type (HCC) Anemia, unspecified type Anxiety Anxiety state, unspecified Atrial fibrillation, unspecified type (HCC) Altered mental status, unspecified altered mental status type- Primary Abnormality of gait Lightheadedness Dizziness and giddiness Orthostatic hypotension Visual hallucinations Psychophysical visual disturbances [facility] Diagnosis Mixed hyperlipidemia- Primary Altered mental status, unspecified altered mental status type Abnormality of gait Lightheadedness Dizziness and giddiness Orthostatic hypotension Visual hallucinations Psychophysical visual disturbances [facility] Diagnosis Controlled type 2 diabetes mellitus without complication, without long-term current use of insulin ([facility])- Primary Essential hypertension, benign Mixed hyperlipidemia Bilateral carotid artery stenosis Occlusion and stenosis of carotid artery without mention of cerebral infarction Chronic diastolic CHF (congestive heart failure) ([facility]) Chronic diastolic heart failure Coronary artery disease due to lipid rich plaque GERD without esophagitis Esophageal reflux Chronic tension-type headache, not intractable Chronic tension type headache Anxiety about health Anemia of chronic disease Anemia of other chronic disease Low serum vitamin B12 Low folate Obesity, Class III, BMI 40-49.9 (morbid obesity) ([facility]) Morbid obesity Current smoker Tobacco use disorder Parkinson disease ([facility]) Paralysis agitans Medication management Encounter for long-term (current) use of other medications Prostate disorder Unspecified disorder of prostate Blood pressure instability Other abnormal clinical finding [facility] Bilateral carotid artery stenosis Occlusion and stenosis of carotid artery without mention of cerebral infarction [facility] Diagnosis Anemia of chronic disease Anemia of other chronic disease [facility] Diagnosis Anemia of chronic disease- Primary Anemia of other chronic disease [facility]* Diagnosis Onychomycosis- Primary Dermatophytosis of nail Pain in left foot Pain in limb Pain in toe of right foot Pain in limb Ingrowing toenail Ingrowing nail Controlled type 2 diabetes mellitus without complication, without long-term current use of insulin ([facility]) [facility] Diagnosis Open wound of toe, initial encounter- Primary [facility]* Diagnosis Fall, subsequent encounter- Primary Chronic midline low back pain without sciatica Need for influenza vaccination Need for prophylactic vaccination and inoculation against influenza Drooling Disturbance of salivary secretion Parkinson disease (HCC) Paralysis agitans [facility] Fall, subsequent encounter- Primary Balance disorder Other symptoms involving nervous and musculoskeletal systems Parkinson disease (HCC) Paralysis agitans [facility] Anemia, unspecified type- Primary [facility] Diagnosis Onychomycosis- Primary Dermatophytosis of nail Pain in left foot Pain in limb Pain in toe of right foot Pain in limb Controlled type 2 diabetes mellitus without complication, without long-term current use of insulin (HCC) Diminished pulses in lower extremity Other symptoms involving cardiovascular system Ingrowing toenail Ingrowing nail [facility] Diagnosis Acute otitis media, left- Primary Unspecified otitis media [facility] Diagnosis Left ear pain- Primary Otalgia, unspecified Eye problem Other eye problems Balance disorder Other symptoms involving nervous and musculoskeletal systems [facility] Diagnosis Encounter for Medicare annual wellness exam- Primary Routine general medical examination at a health care facility Controlled type 2 diabetes mellitus without complication, without long-term current use of insulin ([facility]) Essential hypertension, benign Mixed hyperlipidemia Bilateral carotid artery stenosis Occlusion and stenosis of carotid artery without mention of cerebral infarction Blood pressure instability Other abnormal clinical finding Coronary artery disease due to lipid rich plaque Chronic diastolic CHF (congestive heart failure) ([facility]) Chronic diastolic heart failure Chronic tension-type headache, not intractable Chronic tension type headache GERD without esophagitis Esophageal reflux Anemia of chronic disease Anemia of other chronic disease Anxiety about health Parkinson disease ([facility]) Paralysis agitans Obesity, Class III, BMI 40-49.9 (morbid obesity) ([facility]) Morbid obesity Orthostatic hypotension Ex-smoker Personal history of tobacco use, presenting hazards to health Low serum vitamin B12 Low folate Benign prostatic hyperplasia with urinary obstruction Bilateral hearing loss, unspecified hearing loss type Advance directive discussed with patient Other specified counseling Medication management Encounter for long-term (current) use of other medications Prostate disorder Unspecified disorder of prostate [facility] Diagnosis Altered mental status, unspecified altered mental status type- Primary Visual hallucinations Psychophysical visual disturbances [facility] Diagnosis Onychomycosis- Primary Dermatophytosis of nail Pain in left foot Pain in limb Pain in toe of right foot Pain in limb Controlled type 2 diabetes mellitus without complication, without long-term current use of insulin (HCC) [facility] Hypoxia- Primary Hypoxemia [facility] Diagnosis Bilateral carotid artery stenosis Occlusion and stenosis of carotid artery without mention of cerebral infarction [facility] Diagnosis Hypoxia Hypoxemia documented in this encounter [facility] for referral (narrative)* Outpatient Procedure (Routine) - Pending Review Specialty Diagnoses / Procedures Referred By Contac t Referred To Contact [facility] Diagnoses Bilateral carotid artery stenosis Procedures US CAROTID ARTERIES [facility] DUPLEX SCAN EXTRACRANIAL ART COMPL BI STUDY Jasson Bright MD [address] [place] [address] [facility] [address] [place] [address] Referral ID Status Reason Start Date Expiration Date Visits Requested Visits Authorized [id number] Pending Review Auto-Generat ed Referral 02/17/2022 02/17/2023 1 1 [facility] for referral (narrative)* Diagnostic Procedure Only (Routine) - Pending Review Specialty Diagnoses / Procedures [facility] Ref[facility] To Contact XR IMAGING Diagnoses Ingrowing toenail Procedures XR TOE AP/LAT/OBL LEFT RADEX TOE MINIMUM 2 VIEWS Blake Mederos [address] [place] [address] Xr Imaging Referral ID Status Reason Start Date Expiration Date Visits Requested Visits Authorized [id number] Pending Review Auto-Generat ed Referral 05/22/2022 06/21/2023 1 1 [facility] for referral (narrative)* Outpatient Procedure (Routine) - Pending Review Specialty Diagnoses / Procedures Referred By Contac t Referred To Contact [facility] [place] Diagnoses Bilateral carotid artery stenosis Procedures US CAROTID ARTERIES KATHERINE VAS LAB DUPLEX SCAN EXTRACRANIAL ART COMPL BI STUDY Jasson Bright MD [address] [place] [address] [facility] [address] [place] [address] Referral ID Status Reason Start Date Expiration Date Visits Requested Visits Authorized [id number] Pending Review Auto-Generat ed Referral 02/01/2023 02/01/2024 1 [facility] Procedure (Routine) - Authorized Specialty Diagnoses / Procedures Referred By Contac t Referred To Contact [facility] Diagnoses Hypoxia Procedures OXIMETRY WITH AMBULATION NONINVASIVE EAR/PULSE OXIMETRY MULTIPLE DETER Jasson Bright MD [address] [place] [address] [facility] [address] [place] [address] Referral ID Status Reason Start Date Expiration Date Visits Requested Visits Authorized [id number] Authorized Auto-Generat ed Referral 05/17/2023 09/30/2023 1 1 [facility] Summary Purpose Family History No Family History Records FoundNo Family History Records Found Advance Directives Documents on File Type Date Recorded Patient Director Of Accounts Payable Expl anation Advance Directive(s) 08/17/2021 12:09 PM Advance Directive(s) 06/21/2016 1:12 PM Advance Directive(s) 06/16/2016 4:19 PM Documents on File Type Date Recorded Patient Director Of Accounts Payable Expl anation Advance Directive(s) 08/17/2021 12:09 PM Advance Directive(s) 06/21/2016 1:12 PM Advance Directive(s) 06/16/2016 4:19 PM Reason for Referral Specialty Diagnoses / Procedures Referred By Contac t Referred To Contact Neurology Diagnoses Orthostatic hypotension Procedures CONSULT TO NEUROLOGY OFFICE/OUTPATIENT [facility] MDM 60-74 MINUTES Magnolia Perdomo, [employer] [address] [place] [address] Referral ID Status Reason Start Date Expiration Date Visits Requested Visits Authorized [id number] Authorized PCP Requested Referral 01/12/2022 01/12/2023 1 1 Specialty Diagnoses / Procedures Referred By Contac t Referred To Contact Neurology Diagnoses Altered mental status, unspecified altered mental status type Procedures CONSULT TO NEUROLOGY OFFICE/OUTPATIENT [facility] 60-74 MINUTES Magnolia Perdomo APRN.[employer] [address] [place] [address] Referral ID Status Reason Start Date Expiration Date Visits Requested Visits Authorized [id number] Authorized PCP Requested Referral 02/09/2022 02/09/2023 1 1 Specialty Diagnoses / Procedures Referred By Contac t Referred To Contact Ent - Otolaryngology Diagnoses Left ear pain Balance disorder Procedures CONSULT TO ENT OFFICE/OUTPATIENT [facility] 60-74 MINUTES Thao Menchaca PA-C [address] [place] [address] Referral ID Status Reason Start Date Expiration Date Visits Requested Visits Authorized [id number] Authorized PCP Requested Referral 01/08/2023 01/08/2024 1 1 Specialty Diagnoses / Procedures Referred By Contac t Referred To Contact Neurology Diagnoses Altered mental status, unspecified altered mental status type Visual hallucinations Procedures CONSULT TO NEUROLOGY OFFICE/OUTPATIENT [facility] 60-74 MINUTES Magnolia Perdomo APRN.[employer] [address] [place] [address] Referral ID Status Reason Start Date Expiration Date Visits Requested Visits Authorized [id number] Authorized PCP Requested Referral 04/17/2023 04/16/2024 1 1 Additional Source Comments (unrecognized sect ion and content) No Status Records FoundNo Status Records Found INFORMATION SOURCE (unrecogn ized section and content) DATE CREATED AUTHOR AUTHOR'S ORGANIZ ATION 10/18/2023 [facility] Source Comments (unrecognize d section and content) In the event this informatio n is protected by the Federal Confidentiality of Alcohol and Drug Abuse Patient Records regulations: The Federal rules restrict any use of the information to criminally investigate or prosecute any alcohol or drug abuse patient.[facility] the event this information is protected by the Federal Confidentiality of Alcohol and Drug Abuse Patient Records regulations: The Federal rules restrict any use of the information to criminally investigate or prosecute any alcohol or drug abuse patient.[facility] the event this information is protected by the Federal Confidentiality of Alcohol and Drug Abuse Patient Records regulations: The Federal rules restrict any use of the information to criminally investigate or prosecute any alcohol or drug abuse patient.[facility] the event this information is protected by the Federal Confidentiality of Alcohol and Drug Abuse Patient Records regulations: The Federal rules restrict any use of the information to criminally investigate or prosecute any alcohol or drug abuse patient.[facility] the event this information is protected by the Federal Confidentiality of Alcohol and Drug Abuse Patient Records regulations: The Federal rules restrict any use of the information to criminally investigate or prosecute any alcohol or drug abuse patient.[facility] the event this information is protected by the Federal Confidentiality of Alcohol and Drug Abuse Patient Records regulations: The Federal rules restrict any use of the information to criminally investigate or prosecute any alcohol or drug abuse patient.[facility] the event this information is protected by the Federal Confidentiality of Alcohol and Drug Abuse Patient Records regulations: The Federal rules restrict any use of the information to criminally investigate or prosecute any alcohol or drug abuse patient.[facility] the event this information is protected by the Federal Confidentiality of Alcohol and Drug Abuse Patient Records regulations: The Federal rules restrict any use of the information to criminally investigate or prosecute any alcohol or drug abuse patient.[facility] the event this information is protected by the Federal Confidentiality of Alcohol and Drug Abuse Patient Records regulations: The Federal rules restrict any use of the information to criminally investigate or prosecute any alcohol or drug abuse patient.[facility] the event this information is protected by the Federal Confidentiality of Alcohol and Drug Abuse Patient Records regulations: The Federal rules restrict any use of the information to criminally investigate or prosecute any alcohol or drug abuse patient.[facility] the event this information is protected by the Federal Confidentiality of Alcohol and Drug Abuse Patient Records regulations: The Federal rules restrict any use of the information to criminally investigate or prosecute any alcohol or drug abuse patient.[facility] the event this information is protected by the Federal Confidentiality of Alcohol and Drug Abuse Patient Records regulations: The Federal rules restrict any use of the information to criminally investigate or prosecute any alcohol or drug abuse patient.[facility] the event this information is protected by the Federal Confidentiality of Alcohol and Drug Abuse Patient Records regulations: The Federal rules restrict any use of the information to criminally investigate or prosecute any alcohol or drug abuse patient.[facility] the event this information is protected by the Federal Confidentiality of Alcohol and Drug Abuse Patient Records regulations: The Federal rules restrict any use of the information to criminally investigate or prosecute any alcohol or drug abuse patient.[facility] the event this information is protected by the Federal Confidentiality of Alcohol and Drug Abuse Patient Records regulations: The Federal rules restrict any use of the information to criminally investigate or prosecute any alcohol or drug abuse patient.[facility] the event this information is protected by the Federal Confidentiality of Alcohol and Drug Abuse Patient Records regulations: The Federal rules restrict any use of the information to criminally investigate or prosecute any alcohol or drug abuse patient.[facility] the event this information is protected by the Federal Confidentiality of Alcohol and Drug Abuse Patient Records regulations: The Federal rules restrict any use of the information to criminally investigate or prosecute any alcohol or drug abuse patient.[facility] the event this information is protected by the Federal Confidentiality of Alcohol and Drug Abuse Patient Records regulations: The Federal rules restrict any use of the information to criminally investigate or prosecute any alcohol or drug abuse patient.[facility] the event this information is protected by the Federal Confidentiality of Alcohol and Drug Abuse Patient Records regulations: The Federal rules restrict any use of the information to criminally investigate or prosecute any alcohol or drug abuse patient.[facility] the event this information is protected by the Federal Confidentiality of Alcohol and Drug Abuse Patient Records regulations: The Federal rules restrict any use of the information to criminally investigate or prosecute any alcohol or drug abuse patient.[facility] the event this information is protected by the Federal Confidentiality of Alcohol and Drug Abuse Patient Records regulations: The Federal rules restrict any use of the information to criminally investigate or prosecute any alcohol or drug abuse patient.[facility] the event this information is protected by the Federal Confidentiality of Alcohol and Drug Abuse Patient Records regulations: The Federal rules restrict any use of the information to criminally investigate or prosecute any alcohol or drug abuse patient.[facility] the event this information is protected by the Federal Confidentiality of Alcohol and Drug Abuse Patient Records regulations: The Federal rules restrict any use of the information to criminally investigate or prosecute any alcohol or drug abuse patient.[facility] the event this information is protected by the Federal Confidentiality of Alcohol and Drug Abuse Patient Records regulations: The Federal rules restrict any use of the information to criminally investigate or prosecute any alcohol or drug abuse patient.[facility] the event this information is protected by the Federal Confidentiality of Alcohol and Drug Abuse Patient Records regulations: The Federal rules restrict any use of the information to criminally investigate or prosecute any alcohol or drug abuse patient.[facility]In the event this information is protected by the Federal Confidentiality of Alcohol and Drug Abuse Patient Records regulations: The Federal rules restrict any use of the information to criminally investigate or prosecute any alcohol or drug abuse patient.[facility] the event this information is protected by the Federal Confidentiality of Alcohol and Drug Abuse Patient Records regulations: The Federal rules restrict any use of the information to criminally investigate or prosecute any alcohol or drug abuse patient.[facility]In the event this information is protected by the Federal Confidentiality of Alcohol and Drug Abuse Patient Records regulations: The Federal rules restrict any use of the information to criminally investigate or prosecute any alcohol or drug abuse patient.[facility] the event this information is protected by the Federal Confidentiality of Alcohol and Drug Abuse Patient Records regulations: The Federal rules restrict any use of the information to criminally investigate or prosecute any alcohol or drug abuse patient.[facility] the event this information is protected by the Federal Confidentiality of Alcohol and Drug Abuse Patient Records regulations: The Federal rules restrict any use of the information to criminally investigate or prosecute any alcohol or drug abuse patient.[facility] the event this information is protected by the Federal Confidentiality of Alcohol and Drug Abuse Patient Records regulations: The Federal rules restrict any use of the information to criminally investigate or prosecute any alcohol or drug abuse patient.[facility] the event this information is protected by the Federal Confidentiality of Alcohol and Drug Abuse Patient Records regulations: The Federal rules restrict any use of the information to criminally investigate or prosecute any alcohol or drug abuse patient.[facility] the event this information is protected by the Federal Confidentiality of Alcohol and Drug Abuse Patient Records regulations: The Federal rules restrict any use of the information to criminally investigate or prosecute any alcohol or drug abuse patient.[facility]In the event this information is protected by the Federal Confidentiality of Alcohol and Drug Abuse Patient Records regulations: The Federal rules restrict any use of the information to criminally investigate or prosecute any alcohol or drug abuse patient.[facility]In the event this information is protected by the Federal Confidentiality of Alcohol and Drug Abuse Patient Records regulations: The Federal rules restrict any use of the information to criminally investigate or prosecute any alcohol or drug abuse patient.[facility]In the event this information is protected by the Federal Confidentiality of Alcohol and Drug Abuse Patient Records regulations: The Federal rules restrict any use of the information to criminally investigate or prosecute any alcohol or drug abuse patient.[facility]In the event this information is protected by the Federal Confidentiality of Alcohol and Drug Abuse Patient Records regulations: The Federal rules restrict any use of the information to criminally investigate or prosecute any alcohol or drug abuse patient.[facility]In the event this information is protected by the Federal Confidentiality of Alcohol and Drug Abuse Patient Records regulations: The Federal rules restrict any use of the information to criminally investigate or prosecute any alcohol or drug abuse patient.[facility]In the event this information is protected by the Federal Confidentiality of Alcohol and Drug Abuse Patient Records regulations: The Federal rules restrict any use of the information to criminally investigate or prosecute any alcohol or drug abuse patient.[facility]In the event this information is protected by the Federal Confidentiality of Alcohol and Drug Abuse Patient Records regulations: The Federal rules restrict any use of the information to criminally investigate or prosecute any alcohol or drug abuse patient.[facility]In the event this information is protected by the Federal Confidentiality of Alcohol and Drug Abuse Patient Records regulations: The Federal rules restrict any use of the information to criminally investigate or prosecute any alcohol or drug abuse patient.[facility]In the event this information is protected by the Federal Confidentiality of Alcohol and Drug Abuse Patient Records regulations: The Federal rules restrict any use of the information to criminally investigate or prosecute any alcohol or drug abuse patient.[facility] Reason for Visit (unrecogniz ed section and content) Reason Comments Call Request to Dr. Waters Reason Comments Results Reason Comments verbal orders Reason Comments [facility] HH -increased BP Reason Comments [facility] OT- Increased BP Updated OT plan of care Reason Comments Refill Request Reason Comments Established NI Patient Follow up Reason Comments HH update Reason Comments Recheck 3 months Reason Comments home health calling for verbal order Reason Comments PT on Hold Reason Comments Orders for Autonomic Consult Reason Comments New Patient Specialty Diagnoses / Procedures Referred By Contac t Referred To Contact Hematology Diagnoses Anemia of chronic disease Procedures CONSULT TO HEMATOLOGY OFFICE/OUTPATIENT NEW HIGH MDM 60-74 MINUTES Jasson Bright MD [address] [place] [address] Referral ID Status Reason Start Date Expiration Date V isits Requested Visits Authorized [id number] Closed PCP Requested Referral 02/18/2022 02/18/2023 1 1 Reason Comments Results Medication Problem Reason Comments Appointment SPOKE WITH DAUGHTER 04/21 APPT CX / DID NOT WANT TO R/S AT THIS TIME. Reason Comments Established Patient Ingrown Toenail Nail Care Reason Comments Follow Up 2 week follow up total nail avulsion lef t hallux Specialty Diagnoses / Procedures Referred By Hansel miller Referred To Contact Podiatry / PODIATRY Diagnoses Follow-up exam 2 week follow up nail removal Procedures OFFICE/OUTPATIENT ESTABLISHED HIGH MDM 40-54 MIN CHAN EST PODI DIAB Blake [facility]eros [address] [place] [address] Blake Mederos [address] [place] [address] Referral ID Status Reason Start Date Expiration Date Visits Re quested Visits Authorized [id number] Closed 05/24/2022 09/30/2022 1 1 Reason Onset Date Comments ER F/U [facility] ER follow up 06/25 dx: fall; [...] Specialty Diagnoses / Procedures Referred By Hansel miller Referred To Contact Family Medicine / FAMILY MEDICINE Diagnoses Encounter for Medicare annual wellness exam Medicare wellness Procedures OFFICE/OUTPATIENT ESTABLISHED HIGH MDM 40-54 MIN 4C EST WELL Thao Menchaca PA-C [address] [place] [address] Jasson Bright MD [address] [place] [address] Referral ID Status Reason Start Date Expiration Date V isits Requested Visits Authorized [id number] Authorized 01/17/2023 09/30/2023 99 99 Reason Onset Date Comments Refill Request 03/01/2023 Reason Comments Requesting Lab Results Reason Comments Appointment Reason Comments Ingrown Toenail Established Patient Pain Diabetic Foot Care Specialty Diagnoses / Procedures Referred By Contac t Referred To Contact Podiatry / PODIATRY Diagnoses Infected abrasion of great toe infected Great toe Procedures CHAN EST PODI Blake [facility]eros [address] [place] [address] Blake Mederos [address] [place] [address] Referral ID Status Reason Start Date Expiration Date Visits Re quested Visits Authorized [id number] Closed 05/15/2023 09/30/2023 1 1 Reason Comments Forms Reason Comments Spirometry Specialty Diagnoses / Procedures Referred By Contac t Referred To Contact [facility] Diagnoses Hypoxia Procedures OXIMETRY WITH AMBULATION NONINVASIVE EAR/PULSE OXIMETRY MULTIPLE DETER Jasson Bright MD [address] [place] [address] [facility] [address] [place] [address] Referral ID Status Reason Start Date Expiration Date V isits Requested Visits Authorized [id number] Closed Auto-Generate d Referral 05/17/2023 09/30/2023 1 1 Reason Comments Outside Cardiology Reason Comments ER Discharge Summary Imaging, H&P Care Teams (unrecognized sec tion and content) Personnel Research Scientist Relationship Specialty Start Date End Date Jasson Bright MD [address] [place], [place] [id number] PCP - General Family Practice 02/02/21 Personnel Research Scientist Relationship Specialty Start Date End Date Jasson Bright MD [address] [place], [place] [id number] PCP - General Family Practice 02/02/21 Personnel Research Scientist Relationship Specialty Start Date End Date Jasson Bright MD [address] [facility] [place] [address] PCP - General Family Practice 02/02/21 Personnel Research Scientist Relationship Specialty Start Date End Date Jasson Bright MD [address] [facility] [place] [address] PCP - General Family Practice 02/02/21 Personnel Research Scientist Relationship Specialty Start Date End Date Jasson Bright MD [facility] [place] [address] PCP - General Family Practice 02/02/21 Personnel Research Scientist Relationship Specialty Start Date End Date Jasson Bright MD [address] [place] [address], [place] [address] PCP - General Family Practice 02/02/21 Personnel Research Scientist Relationship Specialty Start Date End Date Jasson Bright MD [facility] [place] [address] PCP - General Family Practice 02/02/21 Personnel Research Scientist Relationship Specialty Start Date End Date Jasson Bright MD [facility] [place] [address] PCP - General Family Practice 02/02/21 Personnel Research Scientist Relationship Specialty Start Date End Date Jasson Bright MD [facility] [place] [address] PCP - General Family Practice 02/02/21 Personnel Research Scientist Relationship Specialty Start Date End Date Jasson Bright MD [facility] [place] [address] PCP - General Family Practice 02/02/21 Personnel Research Scientist Relationship Specialty Start Date End Date Jasson Bright MD [facility] [place] [address] PCP - General Family Practice 02/02/21 Personnel Research Scientist Relationship Specialty Start Date End Date Jasson Bright MD [facility] [place] [address] PCP - General Family Practice 02/02/21 Personnel Research Scientist Relationship Specialty Start Date End Date Jasson Bright MD [address] [place] [address], [place] [address] PCP - General Family Medicine 02/02/21 Personnel Research Scientist Relationship Specialty Start Date End Date Jasson rBight MD [address] [place] [address], [place] [address] PCP - General Family Medicine 02/02/21 Personnel Research Scientist Relationship Specialty Start Date End Date Jasson Bright MD [address] [place] [address], [place] [address] PCP - General Family Medicine 02/02/21 Personnel Research Scientist Relationship Specialty Start Date End Date Jasson Bright MD [address] [place] [address], [place] [address] PCP - General Family Medicine 02/02/21 Personnel Research Scientist Relationship Specialty Start Date End Date Jasson Bright MD [address] [place] [address], [place] [address] PCP - General Family Medicine 02/02/21 Personnel Research Scientist Relationship Specialty Start Date End Date Jasson Bright MD [address] [place] [address], [place] [address] PCP - General Family Medicine 02/02/21 Personnel Research Scientist Relationship Specialty Start Date End Date Jasson Bright MD [address] [place] [address], [place] [address] PCP - General Family Medicine 02/02/21 Personnel Research Scientist Relationship Specialty Start Date End Date Jasson Bright MD [address] [place] [address], [place] [address] PCP - General Family Medicine 02/02/21 Personnel Research Scientist Relationship Specialty Start Date End Date Jasson Bright MD [address] [place] [address] PCP - General Family Medicine 02/02/21 Personnel Research Scientist Relationship Specialty Start Date End Date Jasson Bright MD [address] [place] [address] PCP - General Family Medicine 02/02/21 Personnel Research Scientist Relationship Specialty Start Date End Date Jasson Bright MD [address] [place] [address] PCP - General Family Medicine 02/02/21 Personnel Research Scientist Relationship Specialty Start Date End Date Jasson Bright MD [address] [place] [address] PCP - General Family Medicine 02/02/21 Personnel Research Scientist Relationship Specialty Start Date End Date Jasson Bright MD [address] [place] [address] PCP - General Family Medicine 02/02/21 Personnel Research Scientist Relationship Specialty Start Date End Date Jasson Bright MD [address] [place] [address] PCP - General Family Medicine 02/02/21 Personnel Research Scientist Relationship Specialty Start Date End Date Jasson Bright MD [address] [place] [address] PCP - General Family Medicine 02/02/21 Personnel Research Scientist Relationship Specialty Start Date End Date Jasson Bright MD [address] [place] [address] PCP - General Family Medicine 02/02/21 FOR [...] BE BASED ON THE PRIMARY CLINICAL RECORDS. [facility]. provides no warranty or guarantee of the accuracy or completeness of information in this document.
[2023-11-20 22:22] LABS: Allen Test Positive; Base Excess -2 mmol/L (-2 to +2); Bicarbonate 23.1 mmol/L (22-26); Blood Gas Specimen Type ART; Mode Not entered; O2 Delivery Device BiPAP; PEEP 10; PO2 45 mmHG (75-100); SITE R Radial; SO2 79 % (95-99); Total Carbon Dioxide 24 mmol/L; pCO2 39.6 mmHg (35-45); pH 7.37 (7.35-7.45)
[2023-11-20 23:05] LABS: Bedside Glucose 106 mg/dL (74-106)
[2023-11-21] VITALS (19 sets, daily range): BP systolic 102–149; BP diastolic 56–98; PULSE 65–88; RESP 12–30; TEMP 36.6–38.3; O2SAT 91–100
[2023-11-21 02:07] LABS: Allen Test Positive; Base Excess -2 mmol/L (-2 to +2); Bicarbonate 22.9 mmol/L (22-26); Blood Gas Specimen Type ART; Mode Not entered; O2 Delivery Device BiPAP; PEEP 10; PO2 80 mmHG (75-100); SITE L Radial; SO2 96 % (95-99); Total Carbon Dioxide 24 mmol/L; pCO2 35.2 mmHg (35-45); pH 7.42 (7.35-7.45)
--- NOTE | 2023-11-21 05:29 | CPS ---
PAP pressures decreased to 14/8 for patient comfort.
[2023-11-21] MEDS: Albuterol 2.5 MG/3 ML VIAL.NEB. INHALATION ×2 (07:39→13:19)
[2023-11-21 08:01] LABS: Bedside Glucose 126 mg/dL (74-106)
[2023-11-21] MEDS: Piperacil/Tazobactam 3.375 GM in 0.9% Normal Saline (50mL MB+) 50 ML IV ×3 (09:45→21:51)
--- NOTE | 2023-11-21 11:20 | CASEMGMT ---
Addendum entered by Neyda Orourke 11/21/23 15:43: Social Work SW spoke with pt's dgt Urban in pt's room. Urban spoke with pt last evening and pt and dgt agreeable pt will need SNF and [facility] Pt is not medically ready for dc at this time. DC bilingual office assistant aware of preference and to send referral. LARISSA Josue Original Note: Social Work VM left with pt's dgt Libia to follow up on discharge planning discussion. SW will await return call. LARISSA Josue
--- NOTE | 2023-11-21 13:32 | PN_ITS ---
Subjective Subjective Patient seen and examined. He became more short of breath overnight, requiriing BIPAP. He is also running a fever today. CXR done overnight showed a right lobar lobe pneumonia. It does appear he is aspirating. Unable to do review of systems due to encpehalopathy. Objective Data Objective Data Vital Signs: Vital Signs Temp Pulse Resp BP Pulse Ox O2 Del Method O2 Flow Rate 99.1 F 72 22 H 118/67 96 Bi-pap 3 11/21/23 13:16 11/21/23 13:20 11/21/23 13:20 11/21/23 13:16 11/21/23 13:16 11/21/23 13:16 11/20/23 21:40 FiO2 35 11/21/23 11:29 Oxygen Flow Rate (L/min) 3 Oxygen Delivery Method Bi-pap Weight: 213 lb Body Mass Index (BMI) 31.4 Intake & Output: Intake and Output for Last 24 Hours 11/19/23 11/20/23 11/21/23 23:59 23:59 23:59 Intake Total 979.17 / 979.17 1877.08 / 1877.08 0 / 0 Output Total 1300 / 2600 2500 / 2500 Balance 979.17 / 579.17 577.08 / -722.92 -2500 / -2500 Lab / Micro Data 11/20/23 08:17 11/20/23 08:17 Labs: Laboratory Results - last 24 hr 11/20/23 14:11: POC Glucose 57 L 11/20/23 14:36: POC Glucose 125 H 11/20/23 16:18: POC Glucose 110 H 11/20/23 22:06: POC Glucose 106 11/21/23 07:42: POC Glucose 126 H Micro: Microbiology 11/19/23 09:50 Mucosa - Nose SARS-CoV-2, Influenza & RSV (PCR) - Final ABG Data ABG results: ABG 11/20/23 11/21/23 22:19 02:04 Specimen Type ART ART Sample Site R Radial L Radial pH 7.37 7.42 Bicarbonate Actual 23.1 22.9 Total CO2 24 24 Base Excess -2 -2 O2 Saturation 79 L 96 O2 % 50.0 50.0 ABG pCO2 39.6 35.2 ABG pO2 45 L 80 Jus Test Positive Positive O2 Delivery Device BiPAP BiPAP Vent Mode Not entered Not entered POC PEEP 10 10 Radiography Diagnostic Testing: Radiology Impression Chest X-Ray 11/20/23 22:00 IMPRESSION: Right lower lobe consolidation consistent with lobar pneumonia. Electronically Signed: Jasson Bailon DO at 23:12 EST , Rhythm Strip Rhythm Strip: junctional Rate: 57 Ectopy: None Physical Exam Const Constitutional Narrative: encephalopathic Orientation / Consciousness: confused and lethargic HEENT normocephalic and head/scalp atraumatic Eyes PERRL and EOMs intact bilaterally Lymph Lymphatic: no lymphadenopathy noted Resp Resp Narrative: diminished breath sounds bibasally, has coarse, bilateral crackles. on BIPAP, tachypneic Cardio regular rate, regular rhythm, S1 normal heart sound, S2 normal heart sound and no murmurs GI normal to inspection, nondistended, normoactive bowel sounds, soft to palpation and non-tender Extremity normal capillary refill, no clubbing, cyanosis or edema and no calf tenderness Skin General Skin Exam: no breakdown Neuro Neuro Narrative: confused, restless, moves all extremities, encephalopathic Motor Exam: general weakness Psych Psych Narrative: confused, restless Assessment & Plan Assessment/Plan (1) Fall: (2) Acute alteration in mental status: PLAN: Plan #Debility and weakness due to mechanical fall * Was found on the floor by his [id number]. He had apparently been on the floor for about an hour after he fell while trying to get up from his chair. * CT of the brain showed no acute intracranial pathology. Hip and pelvic x-ray showed no evidence of fracture and cervical spine CT was showed no evidence of fracture. * PT OT consult. For precautions. * Hydrate gently with IV fluids. * #Acute hypoxic respiratory failure due to aspiration pneumonia * Patient became more short of breath overnight required BiPAP. Chest x-ray done showed right lower lobe pneumonia. * Patient also febrile this morning. Currently on BiPAP. Titrate oxygen to maintain saturation above 90%. * Patient started on IV Zosyn. Blood cultures obtained. * if he is unable to wean off BIPAP, will consult pulmonology * #Probable aspiration and dysphagia * Patient on room air but he has very coarse bilateral crackles and a very wet cough. * Keep n.p.o. until speech therapy evaluates him. * Gentle hydration with IV fluids. * BNP not elevated. * #Thrombocytopenia * Placed on down to 128 today. 125 yesterday. Was previously normal. Will monitor. * if it drops any further, will consider hematology consult. * #Benign essential hypertension: on lisinopril #CAD s/p stents: stable. On aspirin and statin. #hypernatremia: sodium is up to 147. Likely due to IVF. NS discontinued. Will monitor; start D5W #Acute metabolic encephalopathy. * Etiology is unclear. Family says he has been getting confused and delirious at home and was actually scheduled to see neurology on outpatient basis to be evaluated for Parkinson's disease. * If he does not improve we will consult neurology. Hold all sedative meds. * DVT prophylaxis: SCDs CODE STATUS: * Default full code in light of him being confused. I spoke to his daughter Urban Cooney ([phone]) and she stated that he wanted to be full code. Will continue patient as full code for now. Daughter updated about plan of care. * Charges/Coding Visit Charges Inpatient E&M: 00913 Subs Hosp L3
[2023-11-21] MEDS: Dextrose 5%-Water (1000mL Bag) 1,000 ML 75 ML IV (17:33)
[2023-11-21 17:59] LABS: Bedside Glucose 101 mg/dL (74-106)
[2023-11-22] VITALS (8 sets, daily range): BP systolic 148–160; BP diastolic 68–80; PULSE 56–68; RESP 14–20; TEMP 36.2–36.8; O2SAT 93–100
[2023-11-22] MEDS: Piperacil/Tazobactam 3.375 GM in 0.9% Normal Saline (50mL MB+) 50 ML IV ×3 (05:00→21:50)
[2023-11-22] MEDS: Dextrose 5%-Water (1000mL Bag) 1,000 ML 75 ML IV (06:42)
[2023-11-22 06:59] LABS: Bedside Glucose 101 mg/dL (74-106)
[2023-11-22 08:13] LABS: Absolute Lymphocyte Count 1.21 X10^3/uL (0.83-4.51); Absolute Neutrophil Count 6.7 X10^3/uL (2.0-7.7); Basophil# 0.02 X10^3/uL; Basophil% 0.2 % (0-1); Eosinophil# 0.13 X10^3/uL; Eosinophils% 1.5 % (0-5); Hematocrit 29.1 % (40-54); Hemoglobin 9.2 g/dL (13.0-16.5); Lymphocyte # 1.21 X10^3/ul (0.83-4.51); Lymphocyte % 13.9 % (19-41); Mean Corp Hgb Conc 31.6 g/dL (32-36); Mean Corpuscular Hgb 31.5 pg (27.0-32.0); Mean Corpuscular Volume 99.7 fL (80-94); Monocyte# 0.56 X10^3/uL; Monocyte% 6.4 % (0-10); NRBC Flagged by Analyzer 0 % (0-5); Neutrophil # 6.73 X10^3/uL (2.7-7.7); Neutrophil % 77.5 % (47-70); Platelet Count 105 K/mm3 (150-450); RBC Distribution Width CV 14.9 % (11.6-14.6); RBC Distribution Width SD 55.1 fl (35.1-43.9); Red Blood Count 2.92 M/mm3 (4.6-6.2); White Blood Count 8.7 K/mm3 (4.4-11.0)
[2023-11-22 08:35] LABS: Anion Gap 0 (5-15); BUN 32 mg/dL (7-18); BUN/Creat Ratio 23.2 RATIO (10-20); Calcium,Total 9.2 mg/dL (8.5-10.1); Chloride 126 mmol/L (98-107); Creatinine, Serum 1.38 mg/dL (0.70-1.30); EST Glomerular Filtration Rate 53 mL/min (>60); Est Glom Filt Rate - Afr Amer 64 mL/min (>60); Estimated Creatinine Clearance 49.77 ml/min; Glucose 106 mg/dL (74-106); Potassium 3.5 mmol/L (3.5-5.1); Sodium Level 151 mmol/L (136-145)
[2023-11-22] MEDS: Aspirin E.C. 81 MG Tablet PO (10:50)
[2023-11-22] MEDS: Lisinopril 20 MG Tablet PO ×2 (10:50→21:52)
[2023-11-22] MEDS: amLODIPine 10 MG Tablet PO (10:50)
--- NOTE | 2023-11-22 10:52 | PN_ITS ---
Subjective Subjective Patient seen and examined. He was still restless. He is now down to 4L of oxygen and off BIPAP. He has remained afebrile. WBC is 8.7. Objective Data Objective Data Vital Signs: Vital Signs Temp Pulse Resp BP Pulse Ox O2 Del Method O2 Flow Rate 97.2 F L 67 20 H 160/80 H 93 Nasal Cannula 4 11/22/23 07:54 11/22/23 07:54 11/22/23 07:56 11/22/23 07:54 11/22/23 07:54 11/22/23 07:56 11/22/23 07:56 FiO2 35 11/21/23 15:47 Oxygen Flow Rate (L/min) 4 Oxygen Delivery Method Nasal Cannula Weight: 213 lb Body Mass Index (BMI) 31.4 Intake & Output: Intake and Output for Last 24 Hours 11/20/23 11/21/23 11/22/23 23:59 23:59 23:59 Intake Total 1877.08 / 1877.08 100 / 100 1086.25 / 1086.25 Output Total 1300 / 2600 3550 / 3550 300 / 300 Balance 577.08 / -722.92 -3450 / -3450 786.25 / 786.25 Lab / Micro Data 11/22/23 07:46 11/22/23 07:46 Labs: Laboratory Results - last 24 hr 11/21/23 17:40: POC Glucose 101 11/22/23 06:42: POC Glucose 101 11/22/23 07:46: WBC 8.7, RBC 2.92 L, Hgb 9.2 L, Hct 29.1 L, MCV 99.7 H, MCH 31.5, MCHC 31.6 L, RDW Std Deviation 55.1 H, RDW Coeff of Sophie 14.9 H, Plt Count 105 L, MPV 11.0, Immature Gran % (Auto) 0.500, Neut % (Auto) 77.5 H, Lymph % (Auto) 13.9 L, [place]ley % (Auto) 6.4, Eos % (Auto) 1.5, Baso % (Auto) 0.2, Absolute Neuts (auto) 6.7, Absolute Lymphs (auto) 1.21, Nucleated RBC % 0, Sodium 151 H, Potassium 3.5, Chloride 126 H, Carbon Dioxide 25.0, Anion Gap 0 L, BUN 32 H, Cre atinine 1.38 H, Estim Creat Clear Calc 49.77, Est GFR (MDRD) Af Amer 64, Est GFR (MDRD) Non-Af 53 L, BUN/Creatinine Ratio 23.2 H, Glucose 106, Calcium 9.2 Micro: Microbiology 11/19/23 09:50 Mucosa - Nose SARS-CoV-2, Influenza & RSV (PCR) - Final Rhythm Strip Rhythm Strip: junctional Rate: 57 Ectopy: None Physical Exam Const Constitutional Narrative: encephalopathic Orientation / Consciousness: confused and lethargic HEENT normocephalic and head/scalp atraumatic Eyes PERRL and EOMs intact bilaterally Lymph Lymphatic: no lymphadenopathy noted Resp Resp Narrative: diminished breath sounds bibasally, has coarse, bilateral crackles.Now on 4L of oxygen. Cardio regular rate, regular rhythm, S1 normal heart sound, S2 normal heart sound and no murmurs GI normal to inspection, nondistended, normoactive bowel sounds, soft to palpation and non-tender Extremity normal capillary refill, no clubbing, cyanosis or edema and no calf tenderness Skin General Skin Exam: no breakdown Neuro Neuro Narrative: confused, restless, moves all extremities, encephalopathic Motor Exam: general weakness Psych Psych Narrative: confused, restless Assessment & Plan Assessment/Plan (1) Fall: (2) Acute alteration in mental status: PLAN: Plan #Debility and weakness due to mechanical fall * Was found on the floor by his [id number]. He had apparently been on the floor for about an hour after he fell while trying to get up from his chair. * CT of the brain showed no acute intracranial pathology. Hip and pelvic x-ray showed no evidence of fracture and cervical spine CT was showed no evidence of fracture. * PT OT consult. For precautions. * DC IVF. * #Acute hypoxic respiratory failure due to aspiration pneumonia * Patient became more short of breath overnight required BiPAP. Chest x-ray done showed right lower lobe pneumonia. * Patient also febrile this morning. Titrate oxygen to maintain saturation above 90%. Now on 4L of oxygen. * Patient on IV Zosyn. Blood cultures obtained. * titrate oxygen to maintain sats >90% * #Hypernatremia * sodium is now up to 151. Likely due to IVF. * will hydrate with IVF D5W to bring down sodium * #Probable aspiration and dysphagia * Patient on room air but he has very coarse bilateral crackles and a very wet cough. * Keep n.p.o. until speech therapy evaluates him. * Gentle hydration with IV fluids. * BNP not elevated. * #Thrombocytopenia * platelets have dropped further to 105. Has trended down from 128 yesterday. * #Benign essential hypertension: on lisinopril #CAD s/p stents: stable. On aspirin and statin. #Acute metabolic encephalopathy. * Etiology is unclear. Family says he has been getting confused and delirious at home and was actually scheduled to see neurology on outpatient basis to be evaluated for Parkinson's disease. * likely due to aspiration pneumonia * CT of the brain showed no acute intracranial pathology * DVT prophylaxis: SCDs CODE STATUS: full code. Charges/Coding Visit Charges Inpatient E&M: 11993 Subs Hosp L2
--- NOTE | 2023-11-22 14:18 | CASEMGMT ---
Social Work SW spoke with pt's dgt and updated that [facility] not [facility] available beds. Dgt met with pt to obtain next choices and pt states [facility] the [facility]. SW spoke with dgt and discussed possibility of other SNF's. Dgt will continue to talk to pt about SNF options. VM left with [facility] to check again on bed availability. LARISSA Josue
[2023-11-22] MEDS: Dextrose 5%-Water (1000mL Bag) 1,000 ML 125 ML IV (21:51)
[2023-11-22] MEDS: Atorvastatin Calcium 20 MG Tablet PO (21:52)
[2023-11-22] MEDS: Albuterol 2.5 MG/3 ML VIAL.NEB. INHALATION (22:42)
[2023-11-23] VITALS (16 sets, daily range): BP systolic 108–166; BP diastolic 60–98; PULSE 54–69; RESP 12–20; TEMP 36.1–36.9; O2SAT 96–100
[2023-11-23] MEDS: Albuterol 2.5 MG/3 ML VIAL.NEB. INHALATION ×2 (03:33→20:17)
[2023-11-23 05:34] LABS: Absolute Lymphocyte Count 1.33 X10^3/uL (0.83-4.51); Absolute Neutrophil Count 6.2 X10^3/uL (2.0-7.7); Basophil# 0.04 X10^3/uL; Basophil% 0.5 % (0-1); Eosinophil# 0.48 X10^3/uL; Eosinophils% 5.6 % (0-5); Hematocrit 28.2 % (40-54); Hemoglobin 8.8 g/dL (13.0-16.5); Lymphocyte # 1.33 X10^3/ul (0.83-4.51); Lymphocyte % 15.4 % (19-41); Mean Corp Hgb Conc 31.2 g/dL (32-36); Mean Corpuscular Hgb 30.7 pg (27.0-32.0); Mean Corpuscular Volume 98.3 fL (80-94); Mean Platelet Vol. 10.3 fl (6.2-12.0); Monocyte# 0.56 X10^3/uL; Monocyte% 6.5 % (0-10); NRBC Flagged by Analyzer 0 % (0-5); Neutrophil # 6.18 X10^3/uL (2.7-7.7); Neutrophil % 71.5 % (47-70); POSITIVE COUNT YES; Platelet Count 92 K/mm3 (150-450); RBC Distribution Width CV 14.7 % (11.6-14.6); RBC Distribution Width SD 53.6 fl (35.1-43.9); Red Blood Count 2.87 M/mm3 (4.6-6.2); White Blood Count 8.6 K/mm3 (4.4-11.0)
--- NOTE | 2023-11-23 05:55 | RAD_ITS ---
INDICATION: Dyspnea EXAMINATION/TECHNIQUE: X-RAY - XR Chest 1 View COMPARISON: 11/20/2023. FINDINGS: LINES/DEVICES: None. LUNGS: Small patchy opacity in the right lung base persists. No left lung consolidation. Subsegmental atelectasis in the left lung base.. No effusion or pneumothorax. MEDIASTINUM AND CARDIOVASCULAR STRUCTURES: Mild cardiomegaly. Mild aortic atherosclerosis. BONES AND SOFT TISSUES: Unremarkable. RAD/Chest 1 View (Portable) IMPRESSION: Persistent right basilar opacity concerning for pneumonia in the appropriate setting. Radiographic follow-up recommended 6 weeks after treatment to ensure resolution. Cardiomegaly without florid edema. Electronically Signed: Morris Regan MD at 6:53 EST ,
[2023-11-23] MEDS: Piperacil/Tazobactam 3.375 GM in 0.9% Normal Saline (50mL MB+) 50 ML IV ×3 (06:31→22:21)
[2023-11-23 06:48] LABS: Anion Gap 3 (5-15); BUN 22 mg/dL (7-18); Calcium,Total 8.7 mg/dL (8.5-10.1); Chloride 116 mmol/L (98-107); EST Glomerular Filtration Rate 69 mL/min (>60); Est Glom Filt Rate - Afr Amer 83 mL/min (>60); Estimated Creatinine Clearance 62.44 ml/min; Glucose 94 mg/dL (74-106); Potassium 3.3 mmol/L (3.5-5.1); Sodium Level 144 mmol/L (136-145)
[2023-11-23 07:35] LABS: BNP,B-Type NATRIURETIC PEPTIDE 96.3 pg/mL (0-100)
--- NOTE | 2023-11-23 08:43 | CPS ---
Pt won't keep p-ox on so spot check was done. he remains on BIPAP this time.
--- NOTE | 2023-11-23 10:25 | PN_ITS ---
Subjective Subjective Patient seen and examined. He was lying in bed on BiPAP. Patient still confused and not able to communicate very well and just motors in response to questions. Unable to do complete review of systems. He was subsequently with off BiPAP to oxygen via nasal cannula. Objective Data Objective Data Vital Signs: Vital Signs Temp Pulse Resp BP Pulse Ox O2 Del Method O2 Flow Rate 97 F L 61 14 166/66 H 100 Nasal Cannula 3 11/23/23 09:10 11/23/23 09:10 11/23/23 09:10 11/23/23 09:10 11/23/23 09:10 11/23/23 10:10 11/22/23 22:04 FiO2 35 11/23/23 08:19 Oxygen Flow Rate (L/min) 3 Oxygen Delivery Method Nasal Cannula Weight: 213 lb Body Mass Index (BMI) 31.4 Intake & Output: Intake and Output for Last 24 Hours 11/21/23 11/22/23 11/23/23 23:59 23:59 23:59 Intake Total 100 / 100 3077.92 / 3077.92 50 / 50 Output Total 3550 / 3550 1200 / 1200 250 / 250 Balance -3450 / -3450 1877.92 / 1877.92 -200 / -200 Lab / Micro Data 11/23/23 05:15 11/23/23 06:25 Labs: Laboratory Results - last 24 hr 11/23/23 05:15: WBC 8.6, RBC 2.87 L, Hgb 8.8 L, Hct 28.2 L, MCV 98.3 H, MCH 30.7, MCHC 31.2 L, RDW Std Deviation 53.6 H, RDW Coeff of Sophie 14.7 H, Plt Count 92 L, MPV 10.3, Immature Gran % (Auto) 0.500, Neut % (Auto) 71.5 H, Lymph % (Auto) 15.4 L, Price % (Auto) 6.5, Eos % (Auto) 5.6 H, Baso % (Auto) 0.5, Absolute Neuts (auto) 6.2, Absolute Lymphs (auto) 1.33, Nucleated RBC % 0, B- Natriuretic Peptide 96.3 11/23/23 06:25: Sodium 144, Potassium 3.3 L, Chloride 116 H, Carbon Dioxide 25.0, Anion Gap 3 L, BUN 22 H, Creatinine 1.10, Estim Creat Clear Calc 62.44, Est GFR (MDRD) Af Amer 83, Est GFR (MDRD) Non-Af 69, BUN/Creatinine Ratio 20.0, Glucose 94, Calcium 8.7 Micro: Microbiology 11/22/23 22:15 Sputum, Expectorated/Coughed Gram Stain - Final 11/19/23 09:50 Mucosa - Nose SARS-CoV-2, Influenza & RSV (PCR) - Final Radiography Diagnostic Testing: Radiology Impression Chest X-Ray 11/23/23 05:55 IMPRESSION: Persistent right basilar opacity concerning for pneumonia in the appropriate setting. Radiographic follow-up recommended 6 weeks after treatment to ensure resolution. Cardiomegaly without florid edema. Electronically Signed: Morris Regan MD at 6:53 EST , Rhythm Strip Rhythm Strip: junctional Rate: 57 Ectopy: None Physical Exam Const Constitutional Narrative: encephalopathic Orientation / Consciousness: confused HEENT normocephalic and head/scalp atraumatic Eyes PERRL and EOMs intact bilaterally Lymph Lymphatic: no lymphadenopathy noted Resp Resp Narrative: diminished breath sounds bibasally, has coarse, bilateral crackles.weaned off BIPAP to 4L of oxygen by nasal canula Cardio regular rate, regular rhythm, S1 normal heart sound, S2 normal heart sound and no murmurs GI normal to inspection, nondistended, normoactive bowel sounds, soft to palpation and non-tender Extremity normal capillary refill, no clubbing, cyanosis or edema and no calf tenderness Skin General Skin Exam: no breakdown Neuro Neuro Narrative: confused, restless, moves all extremities Motor Exam: general weakness Psych Psych Narrative: confused, restless Assessment & Plan Assessment/Plan (1) Fall: (2) Acute alteration in mental status: PLAN: Plan #Debility and weakness due to mechanical fall * Was found on the floor by his [id number]. He had apparently been on the floor for about an hour after he fell while trying to get up from his chair. * CT of the brain showed no acute intracranial pathology. Hip and pelvic x-ray showed no evidence of fracture and cervical spine CT was showed no evidence of fracture. * PT OT on board. For precautions. * * #Acute hypoxic respiratory failure due to aspiration pneumonia * Patient became more short of breath overnight required BiPAP. Chest x-ray done showed right lower lobe pneumonia. * Patient also febrile this morning. Titrate oxygen to maintain saturation above 90%. Now on 4L of oxygen. * Patient on IV Zosyn. Blood cultures obtained. * titrate oxygen to maintain sats >90% * #Hypernatremia * sodium is down to 144 today * will dc IVF D5W as patient has also been placed on a diet * #Probable aspiration and dysphagia * Patient on room air but he has very coarse bilateral crackles and a very wet cough. * speech therapy on board. On a modified diet. * Gentle hydration with IV fluids. * #Hypokalemia: K is 3.3. Will replace and trend. #Thrombocytopenia * platelets have dropped further to 92 from 105 yesterday. Baseline Cr is normal, and has been trending down slowly since admission. * may be due to acute illness. has not been on lovenox or heparin * will monitor closely * #Benign essential hypertension: on lisinopril #CAD s/p stents: stable. On aspirin and statin. #Acute metabolic encephalopathy. * Etiology is unclear. Family says he has been getting confused and delirious at home and was actually scheduled to see neurology on outpatient basis to be evaluated for Parkinson's disease. * likely due to aspiration pneumonia * CT of the brain showed no acute intracranial pathology * #Hypertension: On amlodipine and lisinopril. DVT prophylaxis: SCDs; not on any lovenox or heparin CODE STATUS: full code. Charges/Coding Visit Charges Inpatient E&M: 55446 Subs Hosp L2
[2023-11-23] MEDS: Aspirin E.C. 81 MG Tablet PO (10:31)
[2023-11-23] MEDS: Lisinopril 20 MG Tablet PO ×2 (10:32→22:20)
[2023-11-23] MEDS: amLODIPine 10 MG Tablet PO (10:32)
[2023-11-23] MEDS: Erythromycin Base 1 OPTH.TUBE 1 APPLIC RIGHT EYE ×4 (10:43→22:20)
[2023-11-23] MEDS: Potassium Chloride 10mEq/100mL 10 MEQ/100 ML IV.SOLN. 100 MEQ IV BOLUS ×3 (10:55→14:25)
--- NOTE | 2023-11-23 14:06 | CASEMGMT ---
Addendum entered by Lillian Hollis 11/26/23 13:51: [facility] accepted patient. [facility]. SW updated. Lillian Hollis, Discharge Planning Asst. Addendum entered by Lillian Hollis 11/23/23 16:04: [facility] Lillian Hollis, Discharge Planning Asst. Addendum entered by Lillian Hollis 11/23/23 15:19: [facility] declined referral d/t no bed availability. New referrals sent to [facility] and [facility]. Lillian Hollis, Discharge Planning Asst. Original Note: Discharge Planning Ref[facility] via [facility] [place]. Lillian Hollis, Discharge Planning Asst.
--- NOTE | 2023-11-23 16:12 | CASEMGMT ---
Social Work Referral made to [facility] and no beds available. Phone call to pt's dgt and updated. [facility] DC program assistant updated and to send referrals. LARISSA Josue
--- NOTE | 2023-11-23 17:17 | NURSING ---
This Rn verified Student nurse EMR HTT documentation. Gloria Wiggins MSN, RN 11/23 1976
[2023-11-23] MEDS: Atorvastatin Calcium 20 MG Tablet PO (22:20)
[2023-11-24] VITALS (14 sets, daily range): BP systolic 118–160; BP diastolic 50–98; PULSE 53–68; RESP 14–29; TEMP 36.6–37.7; O2SAT 95–100
[2023-11-24] MEDS: Albuterol 2.5 MG/3 ML VIAL.NEB. INHALATION (03:16)
[2023-11-24] MEDS: Piperacil/Tazobactam 3.375 GM in 0.9% Normal Saline (50mL MB+) 50 ML IV ×3 (05:37→21:03)
[2023-11-24 06:47] LABS: Absolute Lymphocyte Count 0.96 X10^3/uL (0.83-4.51); Absolute Neutrophil Count 5.1 X10^3/uL (2.0-7.7); Basophil# 0.03 X10^3/uL; Basophil% 0.4 % (0-1); Eosinophil# 0.37 X10^3/uL; Eosinophils% 5.3 % (0-5); Hematocrit 24.6 % (40-54); Hemoglobin 7.8 g/dL (13.0-16.5); Lymphocyte # 0.96 X10^3/ul (0.83-4.51); Lymphocyte % 13.8 % (19-41); Mean Corp Hgb Conc 31.7 g/dL (32-36); Mean Corpuscular Hgb 30.8 pg (27.0-32.0); Mean Corpuscular Volume 97.2 fL (80-94); Monocyte# 0.46 X10^3/uL; Monocyte% 6.6 % (0-10); NRBC Flagged by Analyzer 0 % (0-5); Neutrophil # 5.14 X10^3/uL (2.7-7.7); Neutrophil % 73.6 % (47-70); Platelet Count 117 K/mm3 (150-450); RBC Distribution Width CV 14.4 % (11.6-14.6); RBC Distribution Width SD 51.5 fl (35.1-43.9); Red Blood Count 2.53 M/mm3 (4.6-6.2)
[2023-11-24 07:06] LABS: Anion Gap 3 (5-15); BUN 16 mg/dL (7-18); BUN/Creat Ratio 16.1 RATIO (10-20); Calcium,Total 8.7 mg/dL (8.5-10.1); Chloride 118 mmol/L (98-107); Creatinine, Serum 0.99 mg/dL (0.70-1.30); EST Glomerular Filtration Rate 77 mL/min (>60); Est Glom Filt Rate - Afr Amer 94 mL/min (>60); Estimated Creatinine Clearance 69.37 ml/min; Glucose 97 mg/dL (74-106); Potassium 3.5 mmol/L (3.5-5.1); Sodium Level 146 mmol/L (136-145)
[2023-11-24] MEDS: Erythromycin Base 1 OPTH.TUBE 1 APPLIC RIGHT EYE ×4 (09:43→21:03)
[2023-11-24 10:01] LABS: Bedside Glucose 86 mg/dL (74-106)
--- NOTE | 2023-11-24 11:27 | PN_ITS ---
Subjective Subjective Patient seen and examined. He was lethargic and on BiPAP. Per his nurse she could not wean him off of BiPAP today. He is febrile today with temperature of 99.8 Fahrenheit. Unable to do review of systems. He remains on BiPAP. Objective Data Objective Data Vital Signs: Vital Signs Temp Pulse Resp BP Pulse Ox O2 Del Method O2 Flow Rate 99.8 F H 61 20 H 146/64 H 99 Bi-pap 3 11/24/23 09:24 11/24/23 09:24 11/24/23 09:24 11/24/23 09:24 11/24/23 09:24 11/24/23 09:24 11/23/23 21:30 FiO2 35 11/24/23 03:16 Oxygen Flow Rate (L/min) 3 Oxygen Delivery Method Bi-pap Weight: 213 lb Body Mass Index (BMI) 31.4 Intake & Output: Intake and Output for Last 24 Hours 11/22/23 11/23/23 11/24/23 23:59 23:59 23:59 Intake Total 3077.92 / 3077.92 450 / 630 414 / 414 Output Total 1200 / 1200 900 / 1300 800 / 800 Balance 1877.92 / 1877.92 -450 / -670 -386 / -386 Lab / Micro Data 11/24/23 06:20 11/24/23 06:20 Labs: Laboratory Results - last 24 hr 11/24/23 06:20: WBC 7.0, RBC 2.53 L, Hgb 7.8 L, Hct 24.6 L, MCV 97.2 H, MCH 30.8, MCHC 31.7 L, RDW Std Deviation 51.5 H, RDW Coeff of Sophie 14.4, Plt Count 117 L, MPV 11.0, Immature Gran % (Auto) 0.300, Neut % (Auto) 73.6 H, Lymph % (Auto) 13.8 L, [place] % (Auto) 6.6, Eos % (Auto) 5.3 H, Baso % (Auto) 0.4, Absolute Neuts (auto) 5.1, Absolute Lymphs (auto) 0.96, Nucleated RBC % 0, Sodium 146 H, Potassium 3.5, Chloride 118 H, Carbon Dioxide 25.0, Anion Gap 3 L, BUN 16, Creatinine 0.99, Estim Creat Clear Calc 69.37, Est GFR (MDRD) Af Amer 94, Est GFR (MDRD) Non-Af 77, BUN/Creatinine Ratio 16.1, Glucose 97, Calcium 8.7 11/24/23 09:42: POC Glucose 86 Micro: Microbiology 11/22/23 22:15 Sputum, Expectorated/Coughed Gram Stain - Final 11/22/23 22:15 Sputum, Expectorated/Coughed Respiratory Culture - Preliminary Appears to be normal respiratory richard. Further studies to follow. 11/19/23 09:50 Mucosa - Nose SARS-CoV-2, Influenza & RSV (PCR) - Final Rhythm Strip Rhythm Strip: junctional Rate: 57 Ectopy: None Physical Exam Const Constitutional Narrative: encephalopathic Orientation / Consciousness: confused and lethargic HEENT normocephalic and head/scalp atraumatic Eyes PERRL and EOMs intact bilaterally Lymph Lymphatic: no lymphadenopathy noted Resp Resp Narrative: diminished breath sounds bibasally, has coarse, bilateral crackles.on BIPAP Cardio regular rate, regular rhythm, S1 normal heart sound, S2 normal heart sound and no murmurs GI normal to inspection, nondistended, normoactive bowel sounds, soft to palpation and non-tender Extremity normal capillary refill, no clubbing, cyanosis or edema and no calf tenderness Skin General Skin Exam: no breakdown Neuro Neuro Narrative: confused, restless, moves all extremities Motor Exam: general weakness Psych Psych Narrative: confused, restless Assessment & Plan Assessment/Plan (1) Fall: (2) Acute alteration in mental status: PLAN: Plan #Debility and weakness due to mechanical fall * Was found on the floor by his [id number]. He had apparently been on the floor for about an hour after he fell while trying to get up from his chair. * CT of the brain showed no acute intracranial pathology. Hip and pelvic x-ray showed no evidence of fracture and cervical spine CT was showed no evidence of fracture. * PT OT on board. For precautions. * * #Acute hypoxic respiratory failure due to aspiration pneumonia * Patient became more short of breath overnight required BiPAP. Chest x-ray done showed right lower lobe pneumonia. * Patient also febrile this morning. Titrate oxygen to maintain saturation above 90%. Now on 4L of oxygen. * Patient on IV Zosyn. Blood cultures obtained. * titrate oxygen to maintain sats >90% * on BIPAP this morning, couldnt be weaned off * will get pulmonology consult as he is unable to wean off BIPAP * #Hypernatremia * sodium is 146 today. Likely due to dehydration> Resume D5W to bring sodium down * * #Probable aspiration and dysphagia * Patient on room air but he has very coarse bilateral crackles and a very wet cough. * speech therapy on board. On a modified diet. * * #Hypokalemia: K is 3.5. Will replace and trend. #Thrombocytopenia * Have improved to 117 today from 92 yesterday. Likely due to acute illness. Will monitor. * * #Benign essential hypertension: on lisinopril #CAD s/p stents: stable. On aspirin and statin. #Acute metabolic encephalopathy. * Etiology is unclear. Family says he has been getting confused and delirious at home and was actually scheduled to see neurology on outpatient basis to be evaluated for Parkinson's disease. * likely due to aspiration pneumonia and respiratory failure * CT of the brain showed no acute intracranial pathology * hold all sedative meds. * #Hypertension: On amlodipine and lisinopril. DVT prophylaxis: SCDs; not on any lovenox or heparin CODE STATUS: full code. Charges/Coding Visit Charges Inpatient E&M: 84261 Subs Hosp L3
[2023-11-24 11:47] LABS: Allen Test Positive; Base Excess 1 mmol/L (-2 to +2); Bicarbonate 25.8 mmol/L (22-26); Blood Gas Specimen Type ART; Comment 14/8; Mode V00004023371; O2 Delivery Device BiPAP; PO2 103 mmHG (75-100); RR 14; SITE R Radial; SO2 98 % (95-99); Total Carbon Dioxide 27 mmol/L; pH 7.42 (7.35-7.45)
[2023-11-24] MEDS: Dextrose 5%-Water (1000mL Bag) 1,000 ML 75 ML IV (11:55)
[2023-11-24] MEDS: 0.9% Normal Saline (250mL Bag) 250 ML 15 ML IV (13:40)
--- NOTE | 2023-11-24 15:56 | CASEMGMT ---
Social Work [facility] did accept pt. However, there are concerns about how pt is doing medically. SW will follow up when appropriate in regard to discharge plan. SHEKHAR Albrecht
[2023-11-24 18:44] LABS: Bedside Glucose 109 mg/dL (74-106)
[2023-11-25] VITALS (7 sets, daily range): BP systolic 123–180; BP diastolic 49–72; PULSE 50–64; RESP 18–20; TEMP 36.6–37.3; O2SAT 93–99
[2023-11-25 01:35] LABS: Bedside Glucose 91 mg/dL (74-106)
[2023-11-25] MEDS: Dextrose 5%-Water (1000mL Bag) 1,000 ML 75 ML IV (02:15)
[2023-11-25] MEDS: Piperacil/Tazobactam 3.375 GM in 0.9% Normal Saline (50mL MB+) 50 ML IV ×3 (05:33→23:07)
[2023-11-25 06:22] LABS: Absolute Lymphocyte Count 1.26 X10^3/uL (0.83-4.51); Absolute Neutrophil Count 4.6 X10^3/uL (2.0-7.7); Basophil# 0.03 X10^3/uL; Basophil% 0.4 % (0-1); Eosinophil# 0.38 X10^3/uL; Eosinophils% 5.5 % (0-5); Hematocrit 27.6 % (40-54); Hemoglobin 8.8 g/dL (13.0-16.5); Lymphocyte # 1.26 X10^3/ul (0.83-4.51); Lymphocyte % 18.3 % (19-41); Mean Corp Hgb Conc 31.9 g/dL (32-36); Mean Corpuscular Hgb 30.8 pg (27.0-32.0); Mean Corpuscular Volume 96.5 fL (80-94); Mean Platelet Vol. 10.5 fl (6.2-12.0); Monocyte# 0.56 X10^3/uL; Monocyte% 8.2 % (0-10); NRBC Flagged by Analyzer 0 % (0-5); Neutrophil # 4.62 X10^3/uL (2.7-7.7); Neutrophil % 67.3 % (47-70); Platelet Count 129 K/mm3 (150-450); RBC Distribution Width CV 14.2 % (11.6-14.6); RBC Distribution Width SD 49.5 fl (35.1-43.9); Red Blood Count 2.86 M/mm3 (4.6-6.2); White Blood Count 6.9 K/mm3 (4.4-11.0)
[2023-11-25] MEDS: hydrALAZINE 20 MG/ML Vial 10 MG IV (06:47)
[2023-11-25] MEDS: 0.9% Saline Lock 10 ML Syringe IV (06:47)
[2023-11-25 06:59] LABS: Bedside Glucose 89 mg/dL (74-106)
[2023-11-25 08:51] LABS: Anion Gap 2 (5-15); BUN 13 mg/dL (7-18); BUN/Creat Ratio 12.9 RATIO (10-20); Calcium,Total 8.7 mg/dL (8.5-10.1); Chloride 116 mmol/L (98-107); Creatinine, Serum 1.01 mg/dL (0.70-1.30); EST Glomerular Filtration Rate 76 mL/min (>60); Est Glom Filt Rate - Afr Amer 92 mL/min (>60); Glucose 98 mg/dL (74-106); Potassium 3.4 mmol/L (3.5-5.1); Sodium Level 147 mmol/L (136-145)
--- NOTE | 2023-11-25 10:27 | PN_ITS ---
Subjective Subjective Patient seen and examined. He remains confused. He is now on room air though. Review of systems not done due to patient's confusion. He has remained hemodynamically stable and is on 3 L of oxygen by nasal cannula. Objective Data Objective Data Vital Signs: Vital Signs Temp Pulse Resp BP Pulse Ox O2 Del Method O2 Flow Rate 98 F 57 L 18 162/57 H 97 Nasal Cannula 3 11/25/23 08:01 11/25/23 08:01 11/25/23 08:01 11/25/23 08:01 11/25/23 08:01 11/25/23 08:07 11/25/23 08:07 FiO2 35 11/24/23 16:20 Oxygen Flow Rate (L/min) 3 Oxygen Delivery Method Nasal Cannula Weight: 213 lb Body Mass Index (BMI) 31.4 Intake & Output: Intake and Output for Last 24 Hours 11/23/23 11/24/23 11/25/23 23:59 23:59 23:59 Intake Total 450 / 630 1026.75 / 1026.75 1512.5 / 1512.5 Output Total 900 / 1300 1000 / 1300 800 / 800 Balance -450 / -670 26.75 / -273.25 712.5 / 712.5 Lab / Micro Data 11/25/23 05:30 11/25/23 05:30 Labs: Laboratory Results - last 24 hr 11/24/23 18:22: POC Glucose 109 H 11/25/23 01:15: POC Glucose 91 11/25/23 05:30: WBC 6.9, RBC 2.86 L, Hgb 8.8 L, Hct 27.6 L, MCV 96.5 H, MCH 30.8, MCHC 31.9 L, RDW Std Deviation 49.5 H, RDW Coeff of Sophie 14.2, Plt Count 129 L, MPV 10.5, Immature Gran % (Auto) 0.300, Neut % (Auto) 67.3, Lymph % (Auto) 18.3 L, [place] % (Auto) 8.2, Eos % (Auto) 5.5 H, Baso % (Auto) 0.4, Abs olute Neuts (auto) 4.6, Absolute Lymphs (auto) 1.26, Nucleated RBC % 0, Sodium 147 H, Potassium 3.4 L, Chloride 116 H, Carbon Dioxide 29.0, Anion Gap 2 L, BUN 13, Creatinine 1.01, Estim Creat Clear Calc 68.00, Est GFR (MDRD) Af Amer 92, Est GFR (MDRD) Non-Af 76, BUN/Creatinine Ratio 12.9, Glucose 98, Calcium 8.7 11/25/23 06:39: POC Glucose 89 Micro: Microbiology 11/22/23 22:15 Sputum, Expectorated/Coughed Gram Stain - Final 11/22/23 22:15 Sputum, Expectorated/Coughed Respiratory Culture - Final 11/19/23 09:50 Mucosa - Nose SARS-CoV-2, Influenza & RSV (PCR) - Final ABG Data ABG results: ABG 11/24/23 11:44 Specimen Type ART Sample Site R Radial pH 7.42 Bicarbonate Actual 25.8 Total CO2 27 Base Excess 1 O2 Saturation 98 O2 % 35.0 ABG pCO2 40.0 ABG pO2 103 H Jus Test Positive Respiration Rate 14 O2 Delivery Device BiPAP Vent Mode [id number] Clinical Comments 14/05 Rhythm Strip Rhythm Strip: junctional Rate: 57 Ectopy: None Physical Exam Const Constitutional Narrative: confused Orientation / Consciousness: confused and lethargic HEENT normocephalic and head/scalp atraumatic Mouth: dry mucous membranes Eyes PERRL and EOMs intact bilaterally Lymph Lymphatic: no lymphadenopathy noted Resp Resp Narrative: diminished breath sounds bibasally, has coarse, bilateral crackles.on on 3L of oxygen by nasal canula Cardio regular rate, regular rhythm, S1 normal heart sound, S2 normal heart sound and no murmurs GI normal to inspection, nondistended, normoactive bowel sounds, soft to palpation and non-tender Extremity normal capillary refill, no clubbing, cyanosis or edema and no calf tenderness General Extremity: no tenderness to palpation of joints or extremities Skin General Skin Exam: no breakdown Neuro Neuro Narrative: confused, restless, moves all extremities Motor Exam: general weakness Psych Psych Narrative: confused, restless Assessment & Plan Assessment/Plan (1) Fall: (2) Acute alteration in mental status: PLAN: Plan #Debility and weakness due to mechanical fall * Was found on the floor by his [id number]. He had apparently been on the floor for about an hour after he fell while trying to get up from his chair. * CT of the brain showed no acute intracranial pathology. Hip and pelvic x-ray showed no evidence of fracture and cervical spine CT was showed no evidence of fracture. * PT OT on board. For precautions. * * #Acute hypoxic respiratory failure due to aspiration pneumonia * Patient became more short of breath overnight required BiPAP. Chest x-ray done showed right lower lobe pneumonia. * Patient also febrile this morning. Titrate oxygen to maintain saturation above 90%. Now on 4L of oxygen. * Patient on IV Zosyn. Blood cultures obtained. * titrate oxygen to maintain sats >90% * couldnt be weaned off BIPAP yesterday so was transferred to PCU. * pulmonology was consulted; awaiting recs * now on 5L of oxygen by nasal canula * * #Hypernatremia * sodium is up to 147 today. * likely due to dehydration * continue on D5W * * #Probable aspiration and dysphagia * Patient on room air but he has very coarse bilateral crackles and a very wet cough. * speech therapy on board. On a modified diet. * * #Hypokalemia: K is 3.4. Will replace and trend. #Thrombocytopenia * improving. Platelets are up to 129 today, up from 117 yesterday. * likely due to acute illness. Will monitor. * * #Benign essential hypertension: on lisinopril #CAD s/p stents: stable. On aspirin and statin. #Acute metabolic encephalopathy. * Etiology is unclear. Family says he has been getting confused and delirious at home and was actually scheduled to see neurology on outpatient basis to be evaluated for Parkinson's disease. * likely due to aspiration pneumonia and respiratory failure * CT of the brain showed no acute intracranial pathology * hold all sedative meds. * #Hypertension: On amlodipine and lisinopril. DVT prophylaxis: SCDs; not on any lovenox or heparin CODE STATUS: full code. Charges/Coding Visit Charges Inpatient E&M: 19873 Subs Hosp L2
--- NOTE | 2023-11-25 13:07 | PCMCONS.TICU ---
HPI Consult Data Date of Consult: 11/25/23 HPI Narrative HPI Narrative: KERRY VALDES, is a 78 M who presents [facility] Medical History Acute respiratory failure with hypoxia Altered mental status Anemia Anemia Anemia Anxiety Atherosclerotic heart disease of [place] coronary artery without angina pectoris Atrial fibrillation Back pain Chest pain CHF (congestive heart failure) CHI (closed head injury) Congestive heart failure (CHF) COPD exacerbation Coronary artery disease Degenerative disc disease, lumbar Degenerative disk disease Delirium Diabetes Essential hypertension Former smoker GERD (gastroesophageal reflux disease) Hallucinations HLD (hyperlipidemia) Hypertension Hypertensive urgency Hypoxia Lower extremity edema Macrocytic anemia On home oxygen therapy Orthostatic hypotension Parkinson's disease Presence of stent in coronary artery (~05/12/21) Short-term memory loss Syncope Vertigo Home Medications pantoprazole 40 mg tablet,delayed release 40 mg PO DAILY PRN GERD 10/25/21 [History Last Taken Unknown] amlodipine 10 mg tablet 10 mg PO DAILY 03/26/23 [History Last Taken Unknown] aspirin 81 mg tablet,delayed release (Bertin Low Dose Aspirin) 81 mg PO DAILY [facility] 08/16/23 [History Last Taken Unknown] atorvastatin 20 mg tablet 20 mg PO QHS #90 tabs 08/16/23 [Rx Last Taken Unknown] lisinopril 10 mg tablet 20 mg PO BID 08/16/23 [History Last Taken Unknown] albuterol sulfate 90 mcg/actuation aerosol inhaler 1 inh inhalation Q6H PRN shortness of breath or wheezing #6.7 grams 10/02/23 [Rx Last Taken Unknown] prednisone 10 mg tablet 10 mg PO DAILY #30 tabs 10/02/23 [Rx Last Taken Unknown] Allergy/AdvReac Type Severity Reaction Status Date / Time No Known Allergies Allergy Verified 11/19/23 09:30 Surgical History History of coronary artery stent placement Presence of coronary angioplasty implant and graft (~05/12/21) Social History household members: spouse Smoking Status: Former smoker alcohol intake: never substance use type: does not use Objective Data Objective Data Vital Signs: Vital Signs Last response Temperature 36.6 C 11/25/23 08:01 Temperature Source Oral 11/25/23 08:01 Pulse Rate 57 L 11/25/23 08:01 Pulse Strength Normal (2+) 11/24/23 22:00 Respiratory Rate 18 11/25/23 08:01 Respiratory Effort Normal, Non-Labored 11/25/23 08:07 Respiratory Depth Shallow 11/25/23 08:07 Respiratory Pattern Normal 11/25/23 08:07 Blood Pressure 162/57 H 11/25/23 08:01 Blood Pressure Mean 92 11/25/23 08:01 Blood Pressure Source Monitor 11/25/23 08:01 Blood Pressure Position Semi-Fowlers 11/25/23 08:01 Blood Pressure Location Left Arm 11/25/23 08:01 Pulse Ox 97 11/25/23 08:01 Oxygen Delivery Method Nasal Cannula 11/25/23 08:07 Oxygen Flow Rate (L/min) 3 11/25/23 08:07 Fraction of Inspired Oxygen (FIO2) 35 11/24/23 16:20 I&O: I&O Last 24 Hours 11/24/23 11/25/23 11/25/23 23:59 11:59 23:59 Intake Total 51.75 / 1026.75 1512.5 / 1562.5 50 / 1562.5 Output Total 0 / 1300 800 / 800 Balance 51.75 / -273.25 712.5 / 762.5 50 / 762.5 I&O: Total Stay 11/19/23 09:30 thru 11/25/23 13:05 Intake Total 9073.42 Output Total 8750 Balance 323.42 Current Meds Ordered / Administered: Current meds ordered / Administered Generic Name Dose Route Start Last Admin Trade Name Freq PRN Reason Stop Dose Admin Acetaminophen 650 mg 11/19/23 13:11 Acetaminophen 325 Mg Tablet PO Q6H PRN PRN Pain 1-10 Or Fever >100.7 Acetaminophen 650 mg 11/21/23 09:30 Acetaminophen 650 Mg Suppository RC Q6H PRN PRN FEVER Albuterol Sulfate 2.5 mg 11/20/23 11:01 11/24/23 03:16 Albuterol 2.5 Mg/3 Ml Vial.Neb. INHALATION 2.5 mg Q6H PRN Administration shortness of breath or wheezin Amlodipine Besylate 10 mg 11/21/23 10:00 11/25/23 13:04 Amlodipine 10 Mg Tablet PO Not Given DAILY [facility] Protocol Aspirin 81 mg 11/21/23 10:00 11/24/23 09:37 Aspirin E.C. 81 Mg Tablet PO Not Given DAILY [facility] Atorvastatin Calcium 20 mg 11/20/23 22:00 11/24/23 21:04 Atorvastatin Calcium 20 Mg Tablet PO Not Given QHS [facility] Erythromycin 1 applic 11/23/23 10:00 11/24/23 21:03 Erythromycin Base 1 Opth.Tube RIGHT EYE 1 applic 4X/DAY [facility] Administration Hydralazine HCl 10 mg 11/25/23 06:29 11/25/23 06:47 Hydralazine 20 Mg/Ml Vial IV 10 mg Q4H PRN PRN Administration SBP > 160 Protocol Sodium Chloride 250 mls @ 15 mls/hr 11/19/23 13:12 11/24/23 13:47 IV 0 mls/hr .[id number] PRN Infusion Additional IVPB Infusion Sodium Chloride 250 mls @ 15 mls/hr 11/19/23 13:12 IV .[id number] PRN Saline Flush Piperacillin Sod/Tazobactam 50 mls @ 12.5 mls/hr 11/21/23 07:40 11/25/23 13:05 Sod 3.375 gm/ Sodium Chloride IV Infused Q8 [facility] Infusion Dextrose 1,000 mls @ 15 mls/hr 11/21/23 17:10 11/25/23 03:15 IV Not Given .Q48H [facility] Dextrose 1,000 mls @ 75 mls/hr 11/24/23 11:40 11/25/23 08:25 IV 75 mls/hr .[id number] [facility] Infusion Potassium Chloride 30 meq/ 1,015 mls @ 125 mls/hr 11/25/23 10:45 Dextrose IV .Q8H8M [facility] Lisinopril 20 mg 11/20/23 22:00 11/25/23 13:04 Lisinopril 20 Mg Tablet PO Not Given BID [facility] Protocol Ondansetron HCl 4 mg 11/19/23 13:11 Ondansetron 4 Mg/2 Ml Vial IV Q8H PRN PRN NAUSEA/VOMITING Pantoprazole Sodium 40 mg 11/20/23 10:54 Pantoprazole Sodium 40 Mg Tablet PO DAILY PRN GERD Quetiapine Fumarate 25 mg 11/25/23 11:40 11/25/23 13:05 Quetiapine 25 Mg Tablet PO Not Given DAILY [facility] Protocol Sodium Chloride 10 - 40 ml 11/19/23 13:12 11/25/23 06:47 0.9% Saline Lock 10 Ml Syringe IV 10 ml UD PRN Administration SALINE FLUSH Lab / Micro Data 11/25/23 05:30 11/25/23 05:30 Labs: Laboratory Results - last 24 hr 11/24/23 18:22: POC Glucose 109 H 11/25/23 01:15: POC Glucose 91 11/25/23 05:30: WBC 6.9, RBC 2.86 L, Hgb 8.8 L, Hct 27.6 L, MCV 96.5 H, MCH 30.8, MCHC 31.9 L, RDW Std Deviation 49.5 H, RDW Coeff of Sophie 14.2, Plt Count 129 L, MPV 10.5, Immature Gran % (Auto) 0.300, Neut % (Auto) 67.3, Lymph % (Auto) 18.3 L, [place] % (Auto) 8.2, Eos % (Auto) 5.5 H, Baso % (Auto) 0.4, Absolute Neuts (auto) 4.6, Absolute Lymphs (auto) 1.26, Nucleated RBC % 0, Sodium 147 H, Potassium 3.4 L, Chloride 116 H, Carbon Dioxide 29.0, Anion Gap 2 L, BUN 13, Creatinine 1.01, Estim Creat Clear Calc 68.00, Est GFR (MDRD) Af Amer 92, Est GFR (MDRD) Non-Af 76, BUN/Creatinine Ratio 12.9, Glucose 98, Calcium 8.7 11/25/23 06:39: POC Glucose 89 Micro: Microbiology 11/22/23 22:15 Sputum, Expectorated/Coughed Gram Stain - Final 11/22/23 22:15 Sputum, Expectorated/Coughed Respiratory Culture - Final Rhythm Strip Rhythm Strip: junctional Rate: 57 Ectopy: None Assessment and Plan . Assessment and plan: 78 yo chronically ill male former smoker admitted 11/19/23 after a fall at home. Apparently found on the floor at home. Brought to ED - imaging unremarkable. He was admitted for FTT at home. Hospitalization has been c/b a variety of issues including confusion/delirium, fever w/ suspected infectious PNA, hypernatremia, and need for supplemental O2 and NIPPV support. He has received IV ABX for presumed PNA. pCXR reveals hazy opacity in the right lower lung field. Viral panel is (-). ABG largely unremarkable. He is awake, but confused and uncooperative. He is breathing RA comfortably. PHYSICAL EXAM GEN NAD VS as above HEENT o/p clear NECK obese COR RRR CHEST coarse ABD soft EXT no edema SKIN w/d TORITO NF ASSESSMENT 1. Suspected RLL infectious PNA 2. Likely dementia 3. (?) O/P dysphagia 4. Former tobacco use 5. Hypernatremia 6. ASCVD 7. Falling PLT count TREATMENT PLAN -supplemental O2 as needed -ABX -free water -defer VTE prophylaxis to IM -appears to need care planning and disposition We will be available as needed. The entirety of this encounter was done via Telemedicine
[2023-11-25 14:25] LABS: Bedside Glucose 93 mg/dL (74-106)
[2023-11-25] MEDS: DEXTROSE 5% IV (14:30)
[2023-11-25] MEDS: POTASSIUM CHLORIDE IV (14:30)
[2023-11-25] MEDS: WATER IV (14:30)
[2023-11-25] MEDS: Erythromycin Base 1 OPTH.TUBE 1 APPLIC RIGHT EYE (14:42)
--- NOTE | 2023-11-25 20:40 | PCM.HOSP.N ---
Hospitalist Note Patient with recurrent agitation this evening. Per discussion with staff had done well with low dose seroquel earlier in the day. Will add q HS regimen low dose.
[2023-11-25] MEDS: QUEtiapine 25 MG Tablet PO (23:36)
[2023-11-25] MEDS: Lisinopril 20 MG Tablet PO (23:36)
[2023-11-25] MEDS: Atorvastatin Calcium 20 MG Tablet PO (23:36)
[2023-11-26] VITALS (7 sets, daily range): BP systolic 100–162; BP diastolic 57–113; PULSE 52–62; RESP 16–20; TEMP 36.4–36.8; O2SAT 94–100
[2023-11-26] LABS: Bedside Glucose 93 mg/dL (74-106)
[2023-11-26] MEDS: hydrALAZINE 20 MG/ML Vial 10 MG IV (03:47)
[2023-11-26] MEDS: 0.9% Saline Lock 10 ML Syringe IV (03:48)
[2023-11-26] MEDS: DEXTROSE 5% IV ×3 (04:27→23:46)
[2023-11-26] MEDS: POTASSIUM CHLORIDE IV ×3 (04:27→23:46)
[2023-11-26] MEDS: WATER IV ×3 (04:27→23:46)
[2023-11-26] MEDS: Piperacil/Tazobactam 3.375 GM in 0.9% Normal Saline (50mL MB+) 50 ML IV ×3 (06:15→23:00)
[2023-11-26 07:19] LABS: Bedside Glucose 109 mg/dL (74-106)
[2023-11-26 07:42] LABS: Absolute Lymphocyte Count 1.15 X10^3/uL (0.83-4.51); Basophil# 0.03 X10^3/uL; Basophil% 0.5 % (0-1); Eosinophil# 0.45 X10^3/uL; Eosinophils% 7.3 % (0-5); Hematocrit 28.3 % (40-54); Hemoglobin 9.3 g/dL (13.0-16.5); Lymphocyte # 1.15 X10^3/ul (0.83-4.51); Lymphocyte % 18.7 % (19-41); Mean Corp Hgb Conc 32.9 g/dL (32-36); Mean Corpuscular Hgb 31.3 pg (27.0-32.0); Mean Corpuscular Volume 95.3 fL (80-94); Mean Platelet Vol. 9.9 fl (6.2-12.0); Monocyte# 0.52 X10^3/uL; Monocyte% 8.4 % (0-10); NRBC Flagged by Analyzer 0 % (0-5); Neutrophil # 3.99 X10^3/uL (2.7-7.7); Neutrophil % 64.8 % (47-70); Platelet Count 132 K/mm3 (150-450); RBC Distribution Width CV 14.1 % (11.6-14.6); RBC Distribution Width SD 48.6 fl (35.1-43.9); Red Blood Count 2.97 M/mm3 (4.6-6.2); White Blood Count 6.2 K/mm3 (4.4-11.0)
[2023-11-26 08:03] LABS: Anion Gap 0 (5-15); BUN 12 mg/dL (7-18); Calcium,Total 8.7 mg/dL (8.5-10.1); Chloride 114 mmol/L (98-107); EST Glomerular Filtration Rate 77 mL/min (>60); Est Glom Filt Rate - Afr Amer 93 mL/min (>60); Estimated Creatinine Clearance 68.68 ml/min; Glucose 121 mg/dL (74-106); Potassium 3.5 mmol/L (3.5-5.1); Sodium Level 143 mmol/L (136-145)
--- NOTE | 2023-11-26 10:57 | PN_ITS ---
Subjective Subjective Patient seen and examined. He remains restless and lethargic. Unable to do review of systems. He is on room air. Objective Data Objective Data Vital Signs: Vital Signs Temp Pulse Resp BP Pulse Ox O2 Del Method O2 Flow Rate 97.6 F L 52 L 16 100/79 96 Room Air 2 11/26/23 08:57 11/26/23 08:57 11/26/23 08:57 11/26/23 08:57 11/26/23 08:57 11/26/23 09:00 11/26/23 07:42 FiO2 35 11/24/23 16:20 Oxygen Flow Rate (L/min) 2 Oxygen Delivery Method Room Air Weight: 213 lb Body Mass Index (BMI) 31.4 Intake & Output: Intake and Output for Last 24 Hours 11/24/23 11/25/23 11/26/23 23:59 23:59 23:59 Intake Total 1026.75 / 1026.75 3101.25 / 3121.25 70 / 70 Output Total 1000 / 1300 1675 / 2075 800 / 800 Balance 26.75 / -273.25 1426.25 / 1046.25 -730 / -730 Lab / Micro Data 11/26/23 07:25 11/26/23 07:25 Labs: Laboratory Results - last 24 hr 11/25/23 13:59: POC Glucose 93 11/25/23 23:42: POC Glucose 93 11/26/23 06:19: POC Glucose 109 H 11/26/23 07:25: WBC 6.2, RBC 2.97 L, Hgb 9.3 L, Hct 28.3 L, MCV 95.3 H, MCH 31.3, MCHC 32.9, RDW Std Deviation 48.6 H, RDW Coeff of Sophie 14.1, Plt Count 132 L, MPV 9.9, Immature Gran % (Auto) 0.300, Neut % (Auto) 64.8, Lymph % (Auto) 18.7 L, Kay % (Auto) 8.4, Eos % (Auto) 7.3 H, Baso % (Auto) 0.5, Absolute Neuts (auto) 4.0, Absolute Lymphs (auto) 1.15, Nucleated RBC % 0, Sodium 143, Potassium 3.5, Chloride 114 H, Carbon Dioxide 29.0, Anion Gap 0 L, BUN 12, Creatinine 1.00, Estim Creat Clear Calc 68.68, Est GFR (MDRD) Af Amer 93, Est GFR (MDRD) Non-Af 77, BUN/Creatinine Ratio 12.0, Glucose 121 H, Calcium 8.7 Micro: Microbiology 11/21/23 08:18 Blood Culture (Wb) - Right Hand Blood Culture - Final No growth in 5 days. 11/21/23 08:24 Blood Culture (Wb) - Left Hand Blood Culture - Final No growth in 5 days. 11/22/23 22:15 Sputum, Expectorated/Coughed Gram Stain - Final 11/22/23 22:15 Sputum, Expectorated/Coughed Respiratory Culture - Final 11/19/23 09:50 Mucosa - Nose SARS-CoV-2, Influenza & RSV (PCR) - Final Rhythm Strip Rhythm Strip: junctional Rate: 57 Ectopy: None Physical Exam Const Constitutional Narrative: confused Orientation / Consciousness: confused and lethargic HEENT normocephalic and head/scalp atraumatic Eyes PERRL and EOMs intact bilaterally Lymph Lymphatic: no lymphadenopathy noted Resp Resp Narrative: diminished breath sounds bibasally, has coarse, bilateral crackles.on room air Cardio regular rate, regular rhythm, S1 normal heart sound, S2 normal heart sound and no murmurs GI normal to inspection, nondistended, normoactive bowel sounds, soft to palpation and non-tender Extremity normal capillary refill, no clubbing, cyanosis or edema and no calf tenderness General Extremity: no tenderness to palpation of joints or extremities Skin General Skin Exam: no breakdown Neuro Neuro Narrative: confused, restless, moves all extremities Motor Exam: general weakness Psych Psych Narrative: confused, restless Assessment & Plan Assessment/Plan (1) Fall: (2) Acute alteration in mental status: PLAN: Plan #Debility and weakness due to mechanical fall * Was found on the floor by his [id number]. He had apparently been on the floor for about an hour after he fell while trying to get up from his chair. * CT of the brain showed no acute intracranial pathology. Hip and pelvic x-ray showed no evidence of fracture and cervical spine CT was showed no evidence of fracture. * PT OT on board. For precautions. * * #Acute hypoxic respiratory failure due to aspiration pneumonia * Patient on IV Zosyn. Blood cultures obtained. * titrate oxygen to maintain sats >90% * now on room air * Patient still at risk of aspiration as he is not able to clear his secretions very well and remains very lethargic. I discussed CODE STATUS and goals of care with daughter today. She is going to come into the hospital to see the patient and wishes to have a more extensive discussion then. * * #Hypernatremia * Resolved. * * #Probable aspiration and dysphagia * Resolved. * speech therapy on board. On a modified diet. * * #Hypokalemia: K is 3.5. #Thrombocytopenia * improving. Platelets at 132 today. * likely due to acute illness. Will monitor. * * #Benign essential hypertension: on lisinopril #CAD s/p stents: stable. On aspirin and statin. #Acute metabolic encephalopathy. * Etiology is unclear. Family says he has been getting confused and delirious at home and was actually scheduled to see neurology on outpatient basis to be evaluated for Parkinson's disease. * likely due to aspiration pneumonia and respiratory failure * CT of the brain showed no acute intracranial pathology * hold all sedative meds. * #Hypertension: On amlodipine and lisinopril. DVT prophylaxis: SCDs; not on any lovenox or heparin CODE STATUS: full code. Disposition: To have an extensive discussion with his daughter Libia Cooney today when she comes in to see patient. Will need to address goals of care and CODE STATUS. Charges/Coding Visit Charges Inpatient E&M: 52647 Subs Hosp L2
[2023-11-26 11:50] LABS: Bedside Glucose 126 mg/dL (74-106)
[2023-11-26] MEDS: Erythromycin Base 1 OPTH.TUBE 1 APPLIC RIGHT EYE ×2 (14:38→17:59)
--- NOTE | 2023-11-26 15:14 | CASEMGMT ---
SW called patient's daughter Libia and let her know [facility] still [facility]. [facility] did accept patient. Libia said she is confused as she was told earlier that there isn't a fpc that would take him due to his condition. DEVANTE explained that insurance may not approve patient to go to the fpc unless he starts to participate more in therapy. DEVANTE explained patient has not been able to participate in therapy the last several days. Jo Ann Rocha MSW [facility]
[2023-11-26 17:00] LABS: Bedside Glucose 128 mg/dL (74-106)
[2023-11-26] MEDS: Glycopyrrolate 0.2 MG/ML Vial 0.100000000000000006 MG IV (18:01)
--- NOTE | 2023-11-26 20:43 | CPS ---
Patient refused PAP therapy for the night, on RA.
[2023-11-27 01:19] LABS: Bedside Glucose 122 mg/dL (74-106)
[2023-11-27 04:15] VITALS: BP 131/91; PULSE 56; RESP 18; TEMP 36; O2SAT 96
[2023-11-27] MEDS: Piperacil/Tazobactam 3.375 GM in 0.9% Normal Saline (50mL MB+) 50 ML IV ×3 (05:28→20:39)
[2023-11-27 06:50] LABS: Bedside Glucose 120 mg/dL (74-106)
[2023-11-27 07:55] LABS: Absolute Lymphocyte Count 1.11 X10^3/uL (0.83-4.51); Absolute Neutrophil Count 8.5 X10^3/uL (2.0-7.7); Basophil# 0.03 X10^3/uL; Basophil% 0.3 % (0-1); Eosinophil# 0.39 X10^3/uL; Eosinophils% 3.6 % (0-5); Hematocrit 29.1 % (40-54); Hemoglobin 9.3 g/dL (13.0-16.5); Lymphocyte # 1.11 X10^3/ul (0.83-4.51); Lymphocyte % 10.3 % (19-41); Mean Corpuscular Hgb 30.9 pg (27.0-32.0); Mean Corpuscular Volume 96.7 fL (80-94); Mean Platelet Vol. 10.4 fl (6.2-12.0); Monocyte# 0.75 X10^3/uL; Monocyte% 6.9 % (0-10); NRBC Flagged by Analyzer 0 % (0-5); Neutrophil # 8.49 X10^3/uL (2.7-7.7); Neutrophil % 78.5 % (47-70); Platelet Count 156 K/mm3 (150-450); RBC Distribution Width CV 14.3 % (11.6-14.6); RBC Distribution Width SD 50.7 fl (35.1-43.9); Red Blood Count 3.01 M/mm3 (4.6-6.2); White Blood Count 10.8 K/mm3 (4.4-11.0)
[2023-11-27 07:56] LABS: Anion Gap 3 (5-15); BUN 12 mg/dL (7-18); BUN/Creat Ratio 10.9 RATIO (10-20); Calcium,Total 8.3 mg/dL (8.5-10.1); Chloride 112 mmol/L (98-107); EST Glomerular Filtration Rate 69 mL/min (>60); Est Glom Filt Rate - Afr Amer 83 mL/min (>60); Estimated Creatinine Clearance 62.44 ml/min; Glucose 134 mg/dL (74-106); Potassium 4.7 mmol/L (3.5-5.1); Sodium Level 141 mmol/L (136-145)
[2023-11-27 08:00] VITALS: O2SAT 94
[2023-11-27 08:10] VITALS: BP 148/79; PULSE 58; RESP 17; TEMP 36.4; O2SAT 97
[2023-11-27] MEDS: Erythromycin Base 1 OPTH.TUBE 1 APPLIC RIGHT EYE ×4 (08:14→19:43)
--- NOTE | 2023-11-27 10:38 | PN_ITS ---
Subjective Subjective Patient seen and examined. He still remains lethargic. Unable to do review of systems as patient is not very communicative. He has remained hemodynamically stable. Objective Data Objective Data Vital Signs: Vital Signs Temp Pulse Resp BP Pulse Ox O2 Del Method O2 Flow Rate 97.5 F L 58 L 17 148/79 H 97 Room Air 2 11/27/23 08:10 11/27/23 08:10 11/27/23 08:10 11/27/23 08:10 11/27/23 08:10 11/27/23 08:10 11/26/23 07:42 FiO2 35 11/24/23 16:20 Oxygen Flow Rate (L/min) 2 Oxygen Delivery Method Room Air Weight: 213 lb Body Mass Index (BMI) 31.4 Intake & Output: Intake and Output for Last 24 Hours 11/25/23 11/26/23 11/27/23 23:59 23:59 23:59 Intake Total 3101.25 / 3121.25 2200 / 2200 50 / 50 Output Total 1675 / 2075 1200 / 1200 100 / 100 Balance 1426.25 / 1046.25 1000 / 1000 -50 / -50 Lab / Micro Data 11/27/23 06:50 11/27/23 06:50 Labs: Laboratory Results - last 24 hr 11/26/23 11:33: POC Glucose 126 H 11/26/23 16:21: POC Glucose 128 H 11/26/23 23:39: POC Glucose 122 H 11/27/23 06:22: POC Glucose 120 H 11/27/23 06:50: WBC 10.8, RBC 3.01 L, Hgb 9.3 L, Hct 29.1 L, MCV 96.7 H, MCH 30.9, MCHC 32.0, RDW Std Deviation 50.7 H, RDW Coeff of Sophie 14.3, Plt Count 156, MPV 10.4, Immature Gran % (Auto) 0.400, Neut % (Auto) 78.5 H, Lymph % (Auto) 1 0.3 L, [place] % (Auto) 6.9, Eos % (Auto) 3.6, Baso % (Auto) 0.3, Absolute Neuts (auto) 8.5 H, Absolute Lymphs (auto) 1.11, Nucleated RBC % 0, Sodium 141, Potassium 4.7, Chloride 112 H, Carbon Dioxide 26.0, Anion Gap 3 L, BUN 12, Creatinine 1.10, Estim Creat Clear Calc 62.44, Est GFR (MDRD) Af Amer 83, Est GFR (MDRD) Non-Af 69, BUN/Creatinine Ratio 10.9, Glucose 134 H, Calcium 8.3 L Micro: Microbiology 11/21/23 08:18 Blood Culture (Wb) - Right Hand Blood Culture - Final No growth in 5 days. 11/21/23 08:24 Blood Culture (Wb) - Left Hand Blood Culture - Final No growth in 5 days. 11/22/23 22:15 Sputum, Expectorated/Coughed Gram Stain - Final 11/22/23 22:15 Sputum, Expectorated/Coughed Respiratory Culture - Final 11/19/23 09:50 Mucosa - Nose SARS-CoV-2, Influenza & RSV (PCR) - Final Rhythm Strip Rhythm Strip: junctional Rate: 57 Ectopy: None Physical Exam Const Constitutional Narrative: confused, lethargy Orientation / Consciousness: confused and lethargic HEENT normocephalic and head/scalp atraumatic Eyes PERRL and EOMs intact bilaterally Lymph Lymphatic: no lymphadenopathy noted Resp Resp Narrative: diminished breath sounds bibasally, has coarse, bilateral crackles.on room air Cardio regular rate, regular rhythm, S1 normal heart sound, S2 normal heart sound and no murmurs GI normal to inspection, nondistended, normoactive bowel sounds, soft to palpation and non-tender Extremity normal capillary refill, no clubbing, cyanosis or edema and no calf tenderness General Extremity: no tenderness to palpation of joints or extremities Skin General Skin Exam: no breakdown Neuro Neuro Narrative: confused, restless, moves all extremities Motor Exam: general weakness Psych Psych Narrative: confused, restless Assessment & Plan Assessment/Plan (1) Fall: (2) Acute alteration in mental status: PLAN: Plan #Debility and weakness due to mechanical fall * Was found on the floor by his [id number]. He had apparently been on the floor for about an hour after he fell while trying to get up from his chair. * CT of the brain showed no acute intracranial pathology. Hip and pelvic x-ray showed no evidence of fracture and cervical spine CT was showed no evidence of fracture. * PT OT on board. For precautions. * * #Acute hypoxic respiratory failure due to aspiration pneumonia * Patient on IV Zosyn. Blood cultures obtained. * titrate oxygen to maintain sats >90% * now on room air * Patient still at risk of aspiration as he is not able to clear his secretions very well and remains very lethargic. I discussed CODE STATUS and goals of care with daughter today. She is going to come into the hospital to see the patient and wishes to have a more extensive discussion then. * * #Hypernatremia * Resolved. * * #Probable aspiration and dysphagia * Resolved. * speech therapy on board. On a modified diet. * * #Hypokalemia: K is 3.5. #Thrombocytopenia * resolved. Platelets are up to 156 today. * * #Benign essential hypertension: on lisinopril #CAD s/p stents: stable. On aspirin and statin. #Acute metabolic encephalopathy. * Etiology is unclear. Family says he has been getting confused and delirious at home and was actually scheduled to see neurology on outpatient basis to be evaluated for Parkinson's disease. * likely due to aspiration pneumonia and respiratory failure * CT of the brain showed no acute intracranial pathology * all sedative meds on hold. * still remains confused and lethargic. * #Hypertension: On amlodipine and lisinopril. DVT prophylaxis: SCDs; not on any lovenox or heparin CODE STATUS: DNRCCA no intubation. Code status switched to DNRCCA no intubation per discussion with daughter yesterday. Disposition: awaiting placement. Charges/Coding Visit Charges Inpatient E&M: 96483 Subs Hosp L2
[2023-11-27] MEDS: POTASSIUM CHLORIDE IV ×2 (12:11→20:38)
[2023-11-27] MEDS: DEXTROSE 5% IV ×2 (12:11→20:38)
[2023-11-27] MEDS: WATER IV ×2 (12:11→20:38)
--- NOTE | 2023-11-27 12:39 | CASEMGMT ---
SW sent updates to [facility] and asked that they start pre-cert. Plan: d/c to [facility] pending insurance approval. Jo Ann COTTON
--- NOTE | 2023-11-27 12:46 | EKG12_ITS ---
Test Reason : ADRIA Blood Pressure : / mmHG Vent. Rate : 052 BPM Atrial Rate : 052 BPM P-R Int : 352 ms QRS Dur : 094 ms QT Int : 488 ms P-R-T Axes : 066 -11 030 degrees QTc Int : 453 ms Sinus bradycardia with 1st degree A-V block Inferior infarct , age undetermined Abnormal ECG When compared with ECG of 19-NOV-2023 09:49, OK interval has increased Inferior infarct is now Present ST no longer depressed in Anterior leads Nonspecific T wave abnormality no longer evident in Lateral leads Confirmed by MATT DUMONT, CLOTILDE ([id number]), bunghole borer AMARIS CASTORENA ([id number]) on 12/03/2023 6:48:06 AM Referred By: Confirmed By:NASIR GUTIERREZ MD
[2023-11-27 12:55] LABS: Bedside Glucose 107 mg/dL (74-106)
[2023-11-27 14:27] VITALS: BP 156/69; PULSE 49; RESP 17; TEMP 36.4; O2SAT 99
[2023-11-27 16:36] LABS: Bedside Glucose 119 mg/dL (74-106)
[2023-11-27] MEDS: QUEtiapine 25 MG Tablet PO (19:45)
[2023-11-27] MEDS: Atorvastatin Calcium 20 MG Tablet PO (19:45)
[2023-11-27] MEDS: Lisinopril 20 MG Tablet PO (19:45)
[2023-11-27 20:30] VITALS: BP 145/66; PULSE 55; RESP 16; TEMP 36.4; O2SAT 97
--- NOTE | 2023-11-27 21:03 | CPS ---
No bipap in room- patient refuses
[2023-11-28 00:25] LABS: Bedside Glucose 106 mg/dL (74-106)
[2023-11-28 02:30] VITALS: BP 136/57; PULSE 55; RESP 16; TEMP 36.1; O2SAT 96
[2023-11-28] MEDS: Piperacil/Tazobactam 3.375 GM in 0.9% Normal Saline (50mL MB+) 50 ML IV (05:04)
[2023-11-28] MEDS: DEXTROSE 5% IV (05:05)
[2023-11-28] MEDS: POTASSIUM CHLORIDE IV (05:05)
[2023-11-28] MEDS: WATER IV (05:05)
[2023-11-28 07:01] LABS: Absolute Lymphocyte Count 1.48 X10^3/uL (0.83-4.51); Absolute Neutrophil Count 5.1 X10^3/uL (2.0-7.7); Basophil# 0.05 X10^3/uL; Basophil% 0.6 % (0-1); Eosinophil# 0.54 X10^3/uL; Eosinophils% 6.7 % (0-5); Hematocrit 29.4 % (40-54); Hemoglobin 9.4 g/dL (13.0-16.5); Lymphocyte # 1.48 X10^3/ul (0.83-4.51); Lymphocyte % 18.4 % (19-41); Mean Corpuscular Hgb 30.6 pg (27.0-32.0); Mean Corpuscular Volume 95.8 fL (80-94); Mean Platelet Vol. 10.4 fl (6.2-12.0); Monocyte# 0.76 X10^3/uL; Monocyte% 9.5 % (0-10); NRBC Flagged by Analyzer 0 % (0-5); Neutrophil # 5.14 X10^3/uL (2.7-7.7); Neutrophil % 64.1 % (47-70); Platelet Count 168 K/mm3 (150-450); RBC Distribution Width CV 14.4 % (11.6-14.6); RBC Distribution Width SD 49.5 fl (35.1-43.9); Red Blood Count 3.07 M/mm3 (4.6-6.2)
[2023-11-28 07:30] LABS: Anion Gap 1 (5-15); BUN 11 mg/dL (7-18); BUN/Creat Ratio 11.2 RATIO (10-20); Calcium,Total 8.7 mg/dL (8.5-10.1); Chloride 115 mmol/L (98-107); Creatinine, Serum 0.98 mg/dL (0.70-1.30); EST Glomerular Filtration Rate 78 mL/min (>60); Est Glom Filt Rate - Afr Amer 94 mL/min (>60); Estimated Creatinine Clearance 70.08 ml/min; Glucose 103 mg/dL (74-106); Potassium 3.8 mmol/L (3.5-5.1); Sodium Level 141 mmol/L (136-145)
[2023-11-28 08:57] VITALS: BP 139/56; PULSE 53; RESP 18; TEMP 36.6; O2SAT 98
[2023-11-28] MEDS: QUEtiapine 25 MG Tablet PO (08:59)
[2023-11-28] MEDS: Lisinopril 20 MG Tablet PO ×2 (08:59→19:44)
[2023-11-28] MEDS: amLODIPine 10 MG Tablet PO (08:59)
[2023-11-28] MEDS: Erythromycin Base 1 OPTH.TUBE 1 APPLIC RIGHT EYE ×4 (09:00→19:43)
[2023-11-28] MEDS: Aspirin E.C. 81 MG Tablet PO (09:00)
[2023-11-28 09:45] LABS: Bedside Glucose 101 mg/dL (74-106)
[2023-11-28 11:51] VITALS: BP 123/50; PULSE 42; RESP 18; TEMP 36.6; O2SAT 97
--- NOTE | 2023-11-28 12:28 | CASEMGMT ---
Patient was approved to go to [facility]. [facility] is aware patient will be coming today. Jo Ann Rocha FRUIT BUYING GRADER LULA
--- NOTE | 2023-11-28 14:05 | ECHOCS_ITS ---
Reason For Study: Arrhythmia Procedure This was a 2D Doppler, Color Flow transthoracic echocardiogram. Technically difficult study, contrast injection was used. Patient very combative and agitated. Exam performed portable in patient room. Left Ventricle Normal LV size. The estimated ejection fraction is 65 %. Unable to assess diastolic dysfunction. No regional wall motion abnormalities noted. Right Ventricle Normal RV size. Normal systolic function. Atria Normal left atrium. Normal right atrium. No doppler evidence for ASD. Mitral Valve There is moderate mitral annular calcification. There is no mitral valve stenosis. No mitral valve insufficiency. Tricuspid Valve There is no tricuspid stenosis. Unable to estimate RV systolic pressure due to inadequate jet, pulmonary artery pressure probably normal. Unable to estimate RV systolic pressure due to insufficient tricuspid regurgitant envelope. Aortic Valve Trisinus/trileaflet aortic valve. There is no aortic stenosis. Trivial aortic valve insufficiency. Pulmonic Valve There is no pulmonic valvular stenosis. No pulmonic valve insufficiency. Great Vessels Normal aortic root. Pericardium/Pleural No pericardial effusion. Medication Diluted definity 2ml given slow IV push to enhance endocardial definition. MMode/2D Measurements & Calculations LVIDd: 5.8 cm IVSd: 0.92 cm Ao root diam: 3.9 cm LVIDs: 3.7 cm LVPWd: 1.3 cm LA dimension: 4.4 cm RVDd: 4.4 cm FS: 36.8 % LAV(MOD-bp): 72.1 ml LVAd ap2: 38.8 cm2 SV(MOD-sp2): 85.1 ml LAV(MOD-bp) Indexed: 34.0 ml/m2 LVLd ap2: 10.3 cm LAV(MOD-sp2): 75.9 ml EDV(MOD-sp2): 122.0 ml LAV(MOD-sp4): 66.9 ml EDV(sp2-el): 124.3 ml LVAs ap2: 19.4 cm2 LVLs ap2: 8.8 cm ESV(MOD-sp2): 36.9 ml ESV(sp2-el): 36.5 ml EF(MOD-sp2): 69.7 % LA A4 area: 22.2 cm2 Time Measurements MV dec time: 0.33 sec Doppler Measurements & Calculations MV E max mike: 60.8 cm/sec Lat Peak E' Mike: 6.9 cm/sec Med Peak E' Mike: 6.0 cm/sec MV A max mike: 83.5 cm/sec E/E' lat: 8.9 E/E' med: 10.2 MV E/A: 0.73 MV V2 max: 91.8 cm/sec MV P1/2t max mike: 63.3 cm/sec Ao V2 max: 99.7 cm/sec MV max P.4 mmHg MV P1/2t: 101.3 msec Ao max P.0 mmHg MV V2 mean: 50.1 cm/sec MV mean P.2 mmHg MV dec slope: 182.8 cm/sec2 MV V2 VTI: 27.6 cm MVA(P1/2t): 2.2 cm2 LV V1 max: 94.5 cm/sec PA V2 max: 63.3 cm/sec LV V1 max P.6 mmHg PA V2 mean: 44.2 cm/sec LV V1 mean P.9 mmHg LV V1 mean: 63.6 cm/sec LV V1 VTI: 29.6 cm ECHO/Echo Complete W/ Contrast Interpretation Summary The estimated ejection fraction is 65 %. Unable to assess diastolic dysfunction. Trivial aortic valve insufficiency. Ordering Physician: Sharon Calle Performed By: Bjorn Harerll RCS
--- NOTE | 2023-11-28 14:15 | PN_ITS ---
Subjective Subjective Patient seen and examined. He remains very lethargic. Unable to do review of systems as he is very lethargic. Plan was for dc but dc canceled as patient is still lethargic and his bradycardia is worsening. Review of systems is otherwise negative. Objective Data Objective Data Vital Signs: Vital Signs Temp Pulse Resp BP Pulse Ox O2 Del Method O2 Flow Rate 98 F 42 L 18 123/50 H 97 Room Air 2 11/28/23 11:51 11/28/23 11:51 11/28/23 11:51 11/28/23 11:51 11/28/23 11:51 11/28/23 11:51 11/26/23 07:42 FiO2 35 11/24/23 16:20 Oxygen Flow Rate (L/min) 2 Oxygen Delivery Method Room Air Weight: 213 lb Body Mass Index (BMI) 31.4 Intake & Output: Intake and Output for Last 24 Hours 11/26/23 11/27/23 11/28/23 23:59 23:59 23:59 Intake Total 2200 / 2200 2300 / 2300 2380 / 2380 Output Total 1200 / 1200 2300 / 2300 950 / 950 Balance 1000 / 1000 0 / 0 1430 / 1430 Lab / Micro Data 11/28/23 06:25 11/28/23 06:25 Labs: Laboratory Results - last 24 hr 11/27/23 16:14: POC Glucose 119 H 11/28/23 00:06: POC Glucose 106 11/28/23 05:18: POC Glucose 101 11/28/23 06:25: WBC 8.0, RBC 3.07 L, Hgb 9.4 L, Hct 29.4 L, MCV 95.8 H, MCH 30.6, MCHC 32.0, RDW Std Deviation 49.5 H, RDW Coeff of Sophie 14.4, Plt Count 168, MPV 10.4, Immature Gran % (Auto) 0.700, Neut % (Auto) 64.1, Lymph % (Auto) 18.4 L, [place] % (Auto) 9.5, Eos % (Auto) 6.7 H, Baso % (Auto) 0.6, Absolute Neuts (auto) 5.1, Absolute Lymphs (auto) 1.48, Nucleated RBC % 0, Sodium 141, Pota ssium 3.8, Chloride 115 H, Carbon Dioxide 25.0, Anion Gap 1 L, BUN 11, Creatinine 0.98, Estim Creat Clear Calc 70.08, Est GFR (MDRD) Af Amer 94, Est GFR (MDRD) Non-Af 78, BUN/Creatinine Ratio 11.2, Glucose 103, Calcium 8.7 Micro: Microbiology 11/28/23 12:10 Nasal Secretion SARS-CoV-2 Antigen (Rapid) - Final 11/21/23 08:18 Blood Culture (Wb) - Right Hand Blood Culture - Final No growth in 5 days. 11/21/23 08:24 Blood Culture (Wb) - Left Hand Blood Culture - Final No growth in 5 days. 11/22/23 22:15 Sputum, Expectorated/Coughed Gram Stain - Final 11/22/23 22:15 Sputum, Expectorated/Coughed Respiratory Culture - Final 11/19/23 09:50 Mucosa - Nose SARS-CoV-2, Influenza & RSV (PCR) - Final Rhythm Strip Rhythm Strip: junctional Rate: 57 Ectopy: None Physical Exam Const Constitutional Narrative: confused, lethargic Orientation / Consciousness: confused and lethargic HEENT normocephalic and head/scalp atraumatic Eyes PERRL and EOMs intact bilaterally Lymph Lymphatic: no lymphadenopathy noted Resp Resp Narrative: diminished breath sounds bibasally, has coarse, bilateral crackles.on room air Cardio regular rhythm, S1 normal heart sound, S2 normal heart sound and no murmurs Cardio Narrative: bradycardia GI normal to inspection, nondistended, normoactive bowel sounds, soft to palpation and non-tender Extremity normal capillary refill, no clubbing, cyanosis or edema and no calf tenderness General Extremity: no tenderness to palpation of joints or extremities Skin General Skin Exam: no breakdown Neuro Neuro Narrative: confused, restless, moves all extremities Motor Exam: general weakness Psych Psych Narrative: confused, restless Assessment & Plan Assessment/Plan (1) Fall: (2) Acute alteration in mental status: PLAN: Plan #Debility and weakness due to mechanical fall * Was found on the floor by his [id number]. He had apparently been on the floor for about an hour after he fell while trying to get up from his chair. * CT of the brain showed no acute intracranial pathology. Hip and pelvic x-ray showed no evidence of fracture and cervical spine CT was showed no evidence of fracture. * PT OT on board. For precautions. * * #Acute hypoxic respiratory failure due to aspiration pneumonia * Patient on IV Zosyn. Blood cultures obtained. * titrate oxygen to maintain sats >90% * now on room air * Patient still at risk of aspiration as he is not able to clear his secretions very well and remains very lethargic. * dc IV zosyn today as patient has completed 7 day course. * family wish for patient to remain full code * * #Acute metabolic encephalopathy * patient still remains very encephalopathic. he is much less responsive today * CT brain showed no acute intracranial pathology as above * will dc seroquel as patient is increasingly more lethargic * not on opiates or any sedative meds. * #Bradycardia * HR has been in the mid 50s, but went down into the 30s and 40s today. * TSH from 10/02/2023 was WNL * cardiology consulted * 2D echo ordered * #Hypernatremia * Resolved. * * #Probable aspiration and dysphagia * Resolved. * speech therapy on board. On a modified diet. * * #Hypokalemia: K is 3.5. #Thrombocytopenia * resolved. Platelets are up to 156 today. * * #Benign essential hypertension: on lisinopril #CAD s/p stents: stable. On aspirin and statin. #Acute metabolic encephalopathy. * Etiology is unclear. Family says he has been getting confused and delirious at home and was actually scheduled to see neurology on outpatient basis to be evaluated for Parkinson's disease. * likely due to aspiration pneumonia and respiratory failure * CT of the brain showed no acute intracranial pathology * all sedative meds on hold. * still remains confused and lethargic. * #Hypertension: On amlodipine and lisinopril. DVT prophylaxis: SCDs; not on any lovenox or heparin CODE STATUS: DNRCCA no intubation. Code status switched to DNRCCA no intubation per discussion with daughter yesterday. Disposition: awaiting placement.
--- NOTE | 2023-11-28 14:27 | CASEMGMT ---
Patient's discharge is canceled. SW spoke with patient's daughter per her request. She was concerned about patient being discharged today as he is less responsive than normal. The discharge has been canceled. Patient's daughter was wondering if patient could just get Seroquel at night and not during the day. SW will pass along the message to the physician. RN was also going to ask physician. Jo Ann COTTON
[2023-11-28 15:16] LABS: Allen Test Positive; Base Excess -2 mmol/L (-2 to +2); Bicarbonate 23.6 mmol/L (22-26); Blood Gas Specimen Type ART; Mode Not entered; O2 Delivery Device Room Air; PO2 76 mmHG (75-100); SITE R Radial; SO2 95 % (95-99); Total Carbon Dioxide 25 mmol/L; pCO2 41.1 mmHg (35-45); pH 7.37 (7.35-7.45)
[2023-11-28 17:09] VITALS: BP 122/50; PULSE 41; RESP 18; TEMP 36.7; O2SAT 98
--- NOTE | 2023-11-28 17:19 | CON.PCM.CA_ITS ---
Assessment & Plan Assessment/Plan (1) Bradycardia: PLAN: Sinus bradycardia with no significant pauses. Does not appear that patient's altered mental status is related to this. He is not on any medications that can cause bradycardia. He does not have any indication for temporary or permanent pacemaker at this time. Continue telemonitoring. Will continue to follow. HPI Consult Data Date of Consult: 11/28/23 HPI Narrative Reason for Consultation: Bradycardia HPI Narrative: KERRY VALDES, is a 78 M who presents after mechanical fall. Patient has been having altered mental status for the past several days that he has been in the hospital. His telemetry shows sinus bradycardia with first-degree AV block. However it appears that patient was having altered mental status unrelated to the bradycardia. No significant long pauses noted. Patient was difficult to arouse. Eventually he woke up and was able to say his name and age but could not give any other history. [facility] Medical History Acute respiratory failure with hypoxia Altered mental status Anemia Anemia Anemia Anxiety Atherosclerotic heart disease of [place] coronary artery without angina pectoris Atrial fibrillation Back pain Chest pain CHF (congestive heart failure) CHI (closed head injury) Congestive heart failure (CHF) COPD exacerbation Coronary artery disease Degenerative disc disease, lumbar Degenerative disk disease Delirium Diabetes Essential hypertension Former smoker GERD (gastroesophageal reflux disease) Hallucinations HLD (hyperlipidemia) Hypertension Hypertensive urgency Hypoxia Lower extremity edema Macrocytic anemia On home oxygen therapy Orthostatic hypotension Parkinson's disease Presence of stent in coronary artery (~05/12/21) Short-term memory loss Syncope Vertigo Home Medications pantoprazole 40 mg tablet,delayed release 40 mg PO DAILY PRN GERD 10/25/21 [History Last Taken Unknown] amlodipine 10 mg tablet 10 mg PO DAILY 03/26/23 [History Last Taken Unknown] aspirin 81 mg tablet,delayed release (Bertin Low Dose Aspirin) 81 mg PO DAILY [facility] 08/16/23 [History Last Taken Unknown] atorvastatin 20 mg tablet 20 mg PO QHS #90 tabs 08/16/23 [Rx Last Taken Unknown] lisinopril 10 mg tablet 20 mg PO BID 08/16/23 [History Last Taken Unknown] albuterol sulfate 90 mcg/actuation aerosol inhaler 1 inh inhalation Q6H PRN shortness of breath or wheezing #6.7 grams 10/02/23 [Rx Last Taken Unknown] prednisone 10 mg tablet 10 mg PO DAILY #30 tabs 10/02/23 [Rx Last Taken Unknown] Allergy/AdvReac Type Severity Reaction Status Date / Time No Known Allergies Allergy Verified 11/19/23 09:30 Surgical History History of coronary artery stent placement Presence of coronary angioplasty implant and graft (~05/12/21) Social History household members: spouse Smoking Status: Former smoker alcohol intake: never substance use type: does not use Physical Exam Const Constitutional Narrative: Patient is difficult to arouse. HEENT normocephalic Resp normal respiratory effort Cardio regular rate Risk Stratification Risk Stratification Applicable: No Charges/Coding Visit Charges Inpatient E&M: 62014 Init Hosp L2 Objective Data Vital Signs: Vital Signs Temp Pulse Resp BP Pulse Ox O2 Del Method O2 Flow Rate 98.1 F 41 L 18 122/50 H 98 Nasal Cannula 3 11/28/23 17:09 11/28/23 17:09 11/28/23 17:09 11/28/23 17:09 11/28/23 17:09 11/28/23 17:09 11/28/23 17:09 FiO2 35 11/24/23 16:20 Oxygen Flow Rate (L/min) 3 Oxygen Delivery Method Nasal Cannula Weight: 213 lb Body Mass Index (BMI) 31.4 Intake & Output: Intake and Output for Last 24 Hours 11/26/23 11/27/23 11/28/23 23:59 23:59 23:59 Intake Total 2200 / 2200 2300 / 2300 2380 / 2380 Output Total 1200 / 1200 2300 / 2300 950 / 950 Balance 1000 / 1000 0 / 0 1430 / 1430 Lab / Micro Data 11/28/23 06:25 11/28/23 06:25 Labs: Laboratory Results - last 24 hr 11/28/23 00:06: POC Glucose 106 11/28/23 05:18: POC Glucose 101 11/28/23 06:25: WBC 8.0, RBC 3.07 L, Hgb 9.4 L, Hct 29.4 L, MCV 95.8 H, MCH 30.6, MCHC 32.0, RDW Std Deviation 49.5 H, RDW Coeff of Sophie 14.4, Plt Count 168, MPV 10.4, Immature Gran % (Auto) 0.700, Neut % (Auto) 64.1, Lymph % (Auto) 18.4 L, [place] % (Auto) 9.5, Eos % (Auto) 6.7 H, Baso % (Auto) 0.6, Absolute Neuts (auto) 5.1, Absolute Lymphs (auto) 1.48, Nucleated RBC % 0, Sodium 141, Potassium 3.8, Chloride 115 H, Carbon Dioxide 25.0, Anion Gap 1 L, BUN 11, Creatinine 0.98, Estim Creat Clear Calc 70.08, Est GFR (MDRD) Af Amer 94, Est GFR (MDRD) Non-Af 78, BUN/Creatinine Ratio 11.2, Glucose 103, Calcium 8.7 Micro: Microbiology 11/28/23 12:10 Nasal Secretion SARS-CoV-2 Antigen (Rapid) - Final ABG Data ABG results: ABG 11/28/23 15:13 Specimen Type ART Sample Site R Radial pH 7.37 Bicarbonate Actual 23.6 Total CO2 25 Base Excess -2 O2 Saturation 95 ABG pCO2 41.1 ABG pO2 76 Jus Test Positive O2 Delivery Device Room Air Vent Mode Not entered Rhythm Strip Rhythm Strip: junctional Rate: 57 Ectopy: None Cardiology Labs/Tests 11/28/23 06:25: WBC 8.0, RBC 3.07 L, Hgb 9.4 L, Hct 29.4 L, MCV 95.8 H, MCH 30.6, MCHC 32.0, Plt Count 168, MPV 10.4, Immature Gran % (Auto) 0.700, Neut % (Auto) 64.1, Lymph % (Auto) 18.4 L, [place] % (Auto) 9.5, Eos % (Auto) 6.7 H, Baso % (Auto) 0.6, Absolute Neuts (auto) 5.1, Nucleated RBC % 0, Sodium 141, Potassium 3.8, Chloride 115 H, Carbon Dioxide 25.0, Anion Gap 1 L, BUN 11, Creatinine 0.98, Est GFR (MDRD) Af Amer 94, Est GFR (MDRD) Non-Af 78, BUN/Creatinine Ratio 11.2, Glucose 103, Calcium 8.7 11/28/23 15:13: pH 7.37, Bicarbonate Actual 23.6, Base Excess -2, O2 Saturation 95, ABG pCO2 41.1, ABG pO2 76, Jus Test Positive Rhythm: EKG: ECHO: Stress Test: Cardiac Cath: PCI: CT Surgery: Holter monitor: EPS: PPM: CXR: Chest CT Scan:
[2023-11-28] MEDS: Atorvastatin Calcium 20 MG Tablet PO (19:43)
[2023-11-28 23:05] VITALS: BP 140/72; PULSE 53; RESP 16; TEMP 36.1; O2SAT 97
--- NOTE | 2023-11-29 00:45 | CPS ---
Pt refuses to wear bipap , Bipap not set up
[2023-11-29 05:05] VITALS: BP 160/70; PULSE 55; RESP 16; TEMP 36.1; O2SAT 100
[2023-11-29 08:30] VITALS: O2SAT 95
[2023-11-29 08:37] LABS: Absolute Neutrophil Count 3.4 X10^3/uL (2.0-7.7); Basophil# 0.06 X10^3/uL; Eosinophil# 0.47 X10^3/uL; Eosinophils% 7.9 % (0-5); Hematocrit 28.7 % (40-54); Hemoglobin 9.3 g/dL (13.0-16.5); Lymphocyte % 23.6 % (19-41); Mean Corp Hgb Conc 32.4 g/dL (32-36); Mean Corpuscular Hgb 30.7 pg (27.0-32.0); Mean Corpuscular Volume 94.7 fL (80-94); Mean Platelet Vol. 9.9 fl (6.2-12.0); Monocyte# 0.55 X10^3/uL; Monocyte% 9.3 % (0-10); NRBC Flagged by Analyzer 0 % (0-5); Neutrophil # 3.43 X10^3/uL (2.7-7.7); Neutrophil % 57.7 % (47-70); Platelet Count 172 K/mm3 (150-450); RBC Distribution Width CV 14.6 % (11.6-14.6); RBC Distribution Width SD 49.7 fl (35.1-43.9); Red Blood Count 3.03 M/mm3 (4.6-6.2); White Blood Count 5.9 K/mm3 (4.4-11.0)
[2023-11-29 09:17] LABS: Anion Gap 4 (5-15); BUN 9 mg/dL (7-18); BUN/Creat Ratio 12.7 RATIO (10-20); Calcium,Total 8.9 mg/dL (8.5-10.1); Chloride 115 mmol/L (98-107); Creatinine, Serum 0.71 mg/dL (0.70-1.30); EST Glomerular Filtration Rate 114 mL/min (>60); Est Glom Filt Rate - Afr Amer 138 mL/min (>60); Estimated Creatinine Clearance 85.85 ml/min; Glucose 78 mg/dL (74-106); Potassium 3.8 mmol/L (3.5-5.1); Sodium Level 143 mmol/L (136-145)
[2023-11-29 09:57] VITALS: BP 144/61; PULSE 57; RESP 18; TEMP 36.3; O2SAT 100
[2023-11-29] MEDS: Erythromycin Base 1 OPTH.TUBE 1 APPLIC RIGHT EYE ×2 (09:57→14:26)
[2023-11-29] MEDS: Aspirin E.C. 81 MG Tablet PO (09:58)
[2023-11-29] MEDS: Lisinopril 20 MG Tablet PO (09:58)
[2023-11-29] MEDS: amLODIPine 10 MG Tablet PO (09:58)
--- NOTE | 2023-11-29 11:28 | TREXTCAR_ITS ---
Diet Diet Order/Speech Therapy: 11/22/23 09:36 Diet: Regular - General Food consistency:: Pureed Liquid Consistency:: Regular/Thin Type of Dietary Supplement:: Ensure Plus High Protein Is pt able to select menu?: No Diet Comments: NO STRAWS, TOTAL FEED, [id number] TID w/meals Routine Orders/Code Status Enema Type: Fleetz Enema Frequency: Daily PRN Suppository Frequency: Daily PRN O2 Frequency: PRN Keep PO Greater than or Equal to (%): 90 Wound(s) BUE-generalized scratches: Wound Type: multiple scratches/skin tears Therapies Weight Bearing: Weight bearing as tolerated Physical Therapy: Eval and Treat Occupational Therapy: Eval and Treat Speech Therapy: Eval and Treat Problem/Diagnosis (1) Bradycardia: Status: Acute Code(s): R00.1 - Bradycardia, unspecified Plan #Debility and weakness due to mechanical fall * Was found on the floor by his [id number]. He had apparently been on the floor for about an hour after he fell while trying to get up from his chair. * CT of the brain showed no acute intracranial pathology. Hip and pelvic x-ray showed no evidence of fracture and cervical spine CT was showed no evidence of fracture. * PT OT on board. For precautions. * * #Acute hypoxic respiratory failure due to aspiration pneumonia * Patient on IV Zosyn. Blood cultures obtained. * titrate oxygen to maintain sats >90% * now on room air * Patient still at risk of aspiration as he is not able to clear his secretions very well and remains very lethargic. * dc IV zosyn today as patient has completed 7 day course. * family wish for patient to remain full code * * #Acute metabolic encephalopathy * patient still remains very encephalopathic. he is much less responsive today * Family says he has been getting confused and delirious at home and was actually scheduled to see neurology on outpatient basis to be evaluated for Parkinson's disease. * CT brain showed no acute intracranial pathology as above * will dc seroquel as patient is increasingly more lethargic * not on opiates or any sedative meds. * #Bradycardia * HR has been in the mid 50s, but went down into the 30s and 40s today. * TSH from 10/02/2023 was WNL * cardiology consulted * 2D echo ordered * #Hypernatremia * Resolved. * * #Probable aspiration and dysphagia * Resolved. * speech therapy on board. On a modified diet. * #Hypokalemia:resolved #Thrombocytopenia * resolved. * * #Benign essential hypertension: on lisinopril #CAD s/p stents: stable. On aspirin and statin. * #Hypertension: On amlodipine and lisinopril. DVT prophylaxis: SCDs; not on any lovenox or heparin CODE STATUS: full code. I spoke to his daughter Libia yesterday who stated that they have been confusion among the family about his CODE STATUS so they decided to begin full code as per his living. Disposition: awaiting placement. Allergies/Procedures Done in Hospital Allergies No Known Allergies Allergy (Verified 11/19/23 09:30) Procedures: 2-D Echocardiogram Type of Care/Length of Stay Estimated LOS: Convalescent Care Less Than 30 days Type of Care Needed: Intermediate Rehab Potential: Poor Prognosis: Poor Additional Orders/Day of Discharge Day of Discharge: 11/29/23 Dietary and Speech Recommendations Dietitian Recommendations/Changes: Continue Regular diet to optimize oral intakes with texture/consistency per SIZE TESTER. Continue 120mL EPHP TID with meals to provide supplemental energy. Discharge Plan Admission Admit Date/Time: 11/21/23 13:13 Primary Reason for Your Visit: aspiration pneumonia Attending Provider: Sharon Calle Primary Care Provider: Jasson England Consulting Providers: Casimiro Hughes Discharge Orders/Prescriptions Prescriptions: Continued atorvastatin 20 mg tablet 20 mg PO QHS Qty: 90 3RF aspirin [Bertin Low Dose Aspirin] 81 mg tablet,delayed release (DR/EC) 81 mg PO DAILY pantoprazole 40 mg tablet,delayed release (DR/EC) 40 mg PO DAILY PRN (Reason: GERD) albuterol sulfate 90 mcg/actuation HFA aerosol inhaler 1 inh inhalation Q6H PRN (Reason: shortness of breath or wheezing) Qty: 6.7 0RF amlodipine 10 mg tablet 10 mg PO DAILY lisinopril 10 mg tablet 20 mg PO BID Discontinued prednisone 10 mg tablet 10 mg PO DAILY Qty: 30 0RF Rx Instructions: 4 tablets x 3 days, 3 tablets x 3 days, 2 tablets x 3 days, 1 tablet x 3 days Referrals / Follow Up: Jasson England MD [Primary Care Provider] - Within 1 Week Disposition Disposition (needs filled in before D/C Order can be placed): Care Home Facility
--- NOTE | 2023-11-29 11:57 | CASEMGMT ---
Patient is doing much better today. DEVANTE called patient's daughter Urban and let her know this information. Urban wanted to make sure patient was eating, drinking, and more coherent today. DEVANTE let Urban know DEVANTE spoke with RN who said patient is much better today and he answered her questions appropriately. DEVANTE told Urban SW will have to check on how he is eating and get back to her. Urban said she will be here around 2p. DEVANTE let her know that transport can be arranged for after 2 so she can come in to see him first. Urban was appreciative of this. Jo Ann Rocha MSW LULA
--- NOTE | 2023-11-29 11:59 | PHA.DC.MR.R ---
Pharmacy [place] Med Reconciliation Pharmacy Service has performed discharge medication reconciliation for this patient. The patient's discharge medication list was reviewed for discrepancies and discrepancies were resolved. Medications at Discharge Home Medications pantoprazole 40 mg tablet,delayed release 40 mg PO DAILY PRN GERD 10/25/21 amlodipine 10 mg tablet 10 mg PO DAILY 03/26/23 aspirin 81 mg tablet,delayed release (Bertin Low Dose Aspirin) 81 mg PO DAILY [facility] 08/16/23 atorvastatin 20 mg tablet 20 mg PO QHS #90 tabs 08/16/23 lisinopril 10 mg tablet 20 mg PO BID 08/16/23 albuterol sulfate 90 mcg/actuation aerosol inhaler 1 inh inhalation Q6H PRN shortness of breath or wheezing #6.7 grams 10/02/23
--- NOTE | 2023-11-29 12:11 | CASEMGMT ---
DEVANTE spoke with patient's aide today. Patient is eating, but not much. DEVANTE called Urban back and let her know this information. SW also let her know transport was set up for 3p. Urban said she will actually be at [facility] around 1230. DEVANTE completed a 7000 in [facility] system. DEVANTE notified RN patient's daughter will be in at 1230. Plan: d/c to [facility] under skilled level of care on a convalescent stay. Physicians will transport patient at 3p. Jo Ann Rocha TODDLER CAREGIVEREvie COTTON
--- NOTE | 2023-11-29 12:58 | CASEMGMT ---
Discharge Planning Discharge orders, signed med list, covid results, and transport time sent to [facility] via [facility]. Physicians will transport patient by cot at 3p. Nursing and SW updated. Lillian Hollis, Discharge Planning Asst.
--- NOTE | 2023-11-29 14:20 | NURSING ---
Called report to nurse karime at [facility]
[2023-11-29 15:00] VITALS: BP 111/71; PULSE 54; RESP 18; TEMP 36.4; O2SAT 100
--- NOTE | 2023-11-29 15:44 | DS.PCM_ITS ---
Providers Date of Admission: 11/21/23 Date of Discharge: 11/29/23 Primary Care Physician: Dr. Jasson England MD Consultations 11/24/23 11:00 Consult: Transporter Driver / Pulmonary Medicine Routine Consulting Provider: Intensivists/Pulmonary Med Reason for Consult: acute hypoxic respiratory failure due to aspiration pneumonia EMERGENT Consult: No Notified: Yes Date Notified: 11/24/23 Time Notified: 11:43 Method of Notification: Answering Service Comments:: ConnectID: [id number] 11/28/23 14:07 Consult: Cardiology Routine Consulting Provider: Casimiro Hughes Reason for Consult: bradycardia EMERGENT Consult: No Notified: Yes Date Notified: 11/28/23 Time Notified: 14:07 Method of Notification: Text Reason For Visit: MECHANICAL FALL, DEBILITY Diagnosis Discharge Diagnosis (1) Bradycardia: Status: Acute Code(s): R00.1 - Bradycardia, unspecified Plan #Debility and weakness due to mechanical fall * Was found on the floor by his [id number]. He had apparently been on the floor for about an hour after he fell while trying to get up from his chair. * CT of the brain showed no acute intracranial pathology. Hip and pelvic x-ray showed no evidence of fracture and cervical spine CT was showed no evidence of fracture. * PT OT on board. For precautions. * * #Acute hypoxic respiratory failure due to aspiration pneumonia * Patient on IV Zosyn. Blood cultures obtained. * titrate oxygen to maintain sats >90% * now on room air * Patient still at risk of aspiration as he is not able to clear his secretions very well and remains very lethargic. * dc IV zosyn today as patient has completed 7 day course. * family wish for patient to remain full code * * #Acute metabolic encephalopathy * patient still remains very encephalopathic. he is much less responsive today * Family says he has been getting confused and delirious at home and was actu ally scheduled to see neurology on outpatient basis to be evaluated for Parkinson's disease. * CT brain showed no acute intracranial pathology as above * will dc seroquel as patient is increasingly more lethargic * not on opiates or any sedative meds. * #Bradycardia * HR has been in the mid 50s, but went down into the 30s and 40s today. * TSH from 10/02/2023 was WNL * cardiology consulted * 2D echo ordered * #Hypernatremia * Resolved. * * #Probable aspiration and dysphagia * Resolved. * speech therapy on board. On a modified diet. * #Hypokalemia:resolved #Thrombocytopenia * resolved. * * #Benign essential hypertension: on lisinopril #CAD s/p stents: stable. On aspirin and statin. * #Hypertension: On amlodipine and lisinopril. DVT prophylaxis: SCDs; not on any lovenox or heparin CODE STATUS: full code. I spoke to his daughter Libia yesterday who stated that they have been confusion among the family about his CODE STATUS so they decided to begin full code as per his living. Disposition: awaiting placement. Medications at Discharge Home Medications pantoprazole 40 mg tablet,delayed release 40 mg PO DAILY PRN GERD 10/25/21 amlodipine 10 mg tablet 10 mg PO DAILY 03/26/23 aspirin 81 mg tablet,delayed release (Bertin Low Dose Aspirin) 81 mg PO DAILY HEART HEALTH 08/16/23 atorvastatin 20 mg tablet 20 mg PO QHS #90 tabs 08/16/23 lisinopril 10 mg tablet 20 mg PO BID 08/16/23 albuterol sulfate 90 mcg/actuation aerosol inhaler 1 inh inhalation Q6H PRN shortness of breath or wheezing #6.7 grams 10/02/23 Hospital Course Operations None Procedures 2-D Echocardiogram Summary of Care Provided Minutes Spent on Discharge: 55 Hospital Course: KERRY VALDES, is a 78 M with an extensive PMH as outlined who presents via the ED on 11/19/2023 with a complaint of mechanical fall. He lives at home alone and was trying to get out of his chair this morning and fell. His sister in law found him on the floor today. He was supposedly on the ground for about an hour. He complained of bilateral hip paiin, but had no other complaints. He was noted to be quite somnolent. HE had no fever, chills, cough, chest pain, palpitations, dizziness, nausea, vomiting or any other symptoms. Review of systems was otherwise negative. Vitals in the ED were BP of 150/66, VT of 58, RR of 14 and he was saturating at 99% on room air. CBC showed hb of 9.8, wbc of 6.2 and platelets of 125. Chemistry shows sodium of 145 with bicarb of 23 and creatinine of 1.35. CPK was not elevated. X-ray of the hip and pelvis and cervical spine CT showed no evidence of fracture. CT of the brain showed no acute intracranial pathology and chest x-ray showed no acute cardiopulmonary process. He was admitted to be managed for debility due to mechanical fall. According to family, patient had been having signs and symptoms which pointed towards possible dementia and so he was due to see neurology on outpatient basis this week. Patient couldnt give much of a history and history was as received mainly from ED doctor. There was also concern for aspiration as patient had bilateral coarse crackles and a very wet cough. He was therefore kept NPO. He was hydrated with fluids. PT OT was consulted. Hospital course was complicated by increasing oxygen requirements with concern for aspiration pneumonia. He was therefore started on IV Zosyn. Blood culture showed no growth. He was started on Seroquel also but he became more lethargic so Seroquel was discontinued. He had a protracted hospital course where he could not clear his secretions and required BiPAP intermittently. He had to be transferred to the progressive care unit due to increasing oxygen requirements. However he was subsequently weaned off of oxygen slowly. Patient's family initially decided to switch his CODE STATUS to DNR CCA no intubation. However this subsequently came back and said per further discussion they wanted to honor patient's wishes and switch him back to full code. Hospital course was also complicated by bradycardia for which cardiology was consulted and plan was for medical management. He did have 2D echo done which showed EF of 65% and unable to assess diastolic dysfunction. Patient became stable enough for discharge and was [facility] on 12/28/2023. He is follow-up with his primary care doctor within 1 to 2 weeks. He is also to continue with modified diet and with speech therapy evaluation today. Patient seen and examined prior to discharge. He had no active complaints and had an uneventful night. Review of systems otherwise negative. Labs and vitals reviewed. Home medication reviewed and reconciled. Physical Exam Const Constitutional Narrative: more alert and communicative today, able to answer questions General Appearance: cooperative Orientation / Consciousness: awake Exam Limitations: no limitations Nutritional Appearance: obese HEENT normocephalic and head/scalp atraumatic Mouth: oral and palatal mucosa normal Eyes PERRL and EOMs intact bilaterally Lymph Lymphatic: no lymphadenopathy noted Resp Resp Narrative: diminished breath sounds bibasally, has coarse, bilateral crackles.on room air Cardio regular rate, regular rhythm, S1 normal heart sound, S2 normal heart sound and no murmurs Cardio Narrative: bradycardia had resolved at time of discharge GI normal to inspection, nondistended, normoactive bowel sounds, soft to palpation and non-tender Extremity normal to inspection, full ROM, normal capillary refill, no clubbing, cyanosis or edema and no calf tenderness General Extremity: no tenderness to palpation of joints or extremities Skin no rashes or lesions noted General Skin Exam: no breakdown Neuro Neuro Narrative: alert, moves all exremities Motor Exam: general weakness Psych Psych Narrative: flat affect Weight / BMI Weight Weight: 213 lb Body Mass Index (BMI) 31.4 ABG / Lab / Microbiology Data 11/29/23 08:25 11/29/23 08:25 Laboratory: Laboratory Results - last 24 hr 11/29/23 08:25: WBC 5.9, RBC 3.03 L, Hgb 9.3 L, Hct 28.7 L, MCV 94.7 H, MCH 30.7, MCHC 32.4, RDW Std Deviation 49.7 H, RDW Coeff of Sophie 14.6, Plt Count 172, MPV 9.9, Immature Gran % (Auto) 0.500, Neut % (Auto) 57.7, Lymph % (Auto) 23.6, Henry % (Auto) 9.3, Eos % (Auto) 7.9 H, Baso % (Auto) 1.0, Absolute Neuts (auto) 3.4, Absolute Lymphs (auto) 1.40, Nucleated RBC % 0, Sodium 143, Potassium 3.8, Chloride 115 H, Carbon Dioxide 24.0, Anion Gap 4 L, BUN 9, Creatinine 0.71, Estim Creat Clear Calc 85.85, Est GFR (MDRD) Af Amer 138, Est GFR (MDRD) Non-Af 114, BUN/Creatinine Ratio 12.7, Glucose 78, Calcium 8.9 Microbiology: Microbiology 11/28/23 12:10 Nasal Secretion SARS-CoV-2 Antigen (Rapid) - Final 11/21/23 08:18 Blood Culture (Wb) - Right Hand Blood Culture - Final No growth in 5 days. 11/21/23 08:24 Blood Culture (Wb) - Left Hand Blood Culture - Final No growth in 5 days. 11/22/23 22:15 Sputum, Expectorated/Coughed Gram Stain - Final 11/22/23 22:15 Sputum, Expectorated/Coughed Respiratory Culture - Final 11/19/23 09:50 Mucosa - Nose SARS-CoV-2, Influenza & RSV (PCR) - Final Radiography Diagnostic Testing: Radiology Impression Echocardiogram 11/28/23 14:05 Interpretation Summary The estimated ejection fraction is 65 %. Unable to assess diastolic dysfunction. Trivial aortic valve insufficiency. Ordering Physician: Sharon Calle Performed By: Bjorn Harrell RCS D/C Instructions Discharge Diet: - (modified dysphagia diet) Discharge Activity: Return to Normal Activity Weight Bearing Status: Weight bearing as tolerated Meaningful Use Info Meaningful Use Diagnoses (Choose all that apply): None applicable Discharge Plan Admission Admit Date/Time: 11/21/23 13:13 Primary Reason for Your Visit: aspiration pneumonia Attending Provider: Sharon Calle Primary Care Provider: Jasson England Consulting Providers: Casimiro Hughes Discharge Orders/Prescriptions Prescriptions: Continued atorvastatin 20 mg tablet 20 mg PO QHS Qty: 90 3RF aspirin [Bertin Low Dose Aspirin] 81 mg tablet,delayed release (DR/EC) 81 mg PO DAILY pantoprazole 40 mg tablet,delayed release (DR/EC) 40 mg PO DAILY PRN (Reason: GERD) albuterol sulfate 90 mcg/actuation HFA aerosol inhaler 1 inh inhalation Q6H PRN (Reason: shortness of breath or wheezing) Qty: 6.7 0RF amlodipine 10 mg tablet 10 mg PO DAILY lisinopril 10 mg tablet 20 mg PO BID Discontinued prednisone 10 mg tablet 10 mg PO DAILY Qty: 30 0RF Rx Instructions: 4 tablets x 3 days, 3 tablets x 3 days, 2 tablets x 3 days, 1 tablet x 3 days Referrals / Follow Up: Jasson England MD [Primary Care Provider] - Within 1 Week Disposition Disposition (needs filled in before D/C Order can be placed): Long Term Facility Charges/Coding Visit Charges Inpatient E&M: 33085 Disch Hosp >30min
== END 2023-11-29 15:12 | disposition skilled nursing facility (03) | DRG 177 ==
LOC: ED 12:21 → MS3 11-20 08:24 → PCU 11-28 10:04
PROVIDERS: Family Medicine; Admitting Provider Student in an Organized Health Care Education/Training Program; Emergency Provider Emergency Medicine; PCP Family Medicine; Visit Provider Student in an Organized Health Care Education/Training Program
DX: J69.0 Pneumonitis due to inhalation of food and vomit (principal); J96.01 Acute respiratory failure with hypoxia; G93.41 Metabolic encephalopathy; E87.0 Hyperosmolality and hypernatremia; F02.80 Dementia in other diseases classified elsewhere, unspecified severity, without behavioral disturbance, psychotic disturbance, mood disturbance, and anxiety; D69.6 Thrombocytopenia, unspecified; I10 Essential (primary) hypertension; I25.10 Atherosclerotic heart disease of native coronary artery without angina pectoris; E78.5 Hyperlipidemia, unspecified; E87.6 Hypokalemia; R00.1 Bradycardia, unspecified; E66.9 Obesity, unspecified; G20.A1 Parkinson's disease without dyskinesia, without mention of fluctuations; R53.1 Weakness; R53.81 Other malaise; R62.7 Adult failure to thrive; R13.12 Dysphagia, oropharyngeal phase; Z68.31 Body mass index [BMI] 31.0-31.9, adult; Z95.5 Presence of coronary angioplasty implant and graft; Z79.899 Other long term (current) drug therapy; Z87.891 Personal history of nicotine dependence
CPT/HCPCS: 36415; 36600; 70450; 71045; 72125; 73521; 80048; 80053; 81001; 82550; 82803; 82962; 83880; 85025; 87040; 87070; 87205; 87426; 87631; 92526; 92610; 93005; 93306; 94002; 94003; 94640; 94668; 94762; 97110; 97162; 97166; 97530; 97535; 97802; 99285; J7030; J7050; Q9957; A4216; C8929; J1940

== ENCOUNTER 2023-11-29 16:11 | Inpatient (IN) | payer MEDICARE, SELFPAY ==
[2023-11-29] VITALS (7 sets, daily range): BP systolic 143–187; BP diastolic 52–73; PULSE 53–59; RESP 15–18; TEMP 35.7–36.2; O2SAT 96–100; BMI 27.7; BMI 26.5
--- NOTE | 2023-11-29 16:12 | CT_ITS ---
We are attempting to reach an attending provider to discuss findings. An addendum with communication details will be sent when the communication is complete. EXAM: CT HEAD WITHOUT INTRAVENOUS CONTRAST CLINICAL INDICATION: Neuro deficit, acute, stroke suspected TECHNIQUE: Multiple axial images were obtained of the head without intravenous contrast. This CT exam was performed using one or more of the following dose reduction techniques: automated exposure control, adjustment of the mA and/or kV according to patient size, and/or use of iterative reconstruction technique. COMPARISON: 11/19/2023 FINDINGS: BRAIN AND EXTRA-AXIAL SPACES: There is enlargement of the ventricular system and cortical sulci. There is hypoattenuation in the periventricular white matter. No intra- or extra-axial hemorrhage. No evidence of acute infarct. No intracranial mass or mass effect. There is preservation of the aggarwal/white matter interface. Posterior fossa structures are unremarkable. Basal cisterns are patent. BONES/JOINTS: Unremarkable. No discrete lytic or blastic abnormalities. SINUSES: Unremarkable as visualized. Clear. MASTOID AIR CELLS: There is minimal fluid in the mastoid air cells. ORBITS: Visualized globes, extraocular muscles, optic nerves and retrobulbar fat appear unremarkable. CT/STROKE Brain/Head without Cont IMPRESSION: 1. No acute intracranial abnormality. There has been no significant change from the reference examination. 2. Stable underlying senescent change with small vessel ischemia. 3. Aspects score 10. Electronically Signed: Nahid Salazar MD at 16:26 EST ,
--- NOTE | 2023-11-29 16:12 | EKG12_ITS ---
Test Reason : STROKE ALERT Blood Pressure : / mmHG Vent. Rate : 056 BPM Atrial Rate : 056 BPM P-R Int : 360 ms QRS Dur : 090 ms QT Int : 484 ms P-R-T Axes : 085 022 066 degrees QTc Int : 467 ms Sinus bradycardia with 1st degree A-V block Otherwise normal ECG Confirmed by MATT DUMONT, CLOTILDE ([id number]), supervising editor trailer AMARIS CASTORENA ([id number]) on 12/03/2023 6:59:37 AM Referred By: AJAY Confirmed By:NASIR GUTIERREZ MD
--- NOTE | 2023-11-29 16:13 | CT_ITS ---
We are attempting to reach an attending provider to discuss findings. An addendum with communication details will be sent when the communication is complete. EXAM: CT ANGIOGRAPHY HEAD AND NECK WITH INTRAVENOUS CONTRAST CLINICAL INDICATION: Neuro deficit, acute, stroke suspected TECHNIQUE: [place]/head and neck CT angiography protocol performed with intravenous contrast. This CT exam was performed using one or more of the following dose reduction techniques: automated exposure control, adjustment of the mA and/or kV according to patient size, and/or use of iterative reconstruction technique. MIP reconstructed images were created and reviewed. CONTRAST: IV 100mL [id number] COMPARISON: No relevant prior studies available. FINDINGS: HEAD: RIGHT ANTERIOR CEREBRAL ARTERY: Unremarkable. No occlusion or significant stenosis. Anterior communicating artery is present. No aneurysm. RIGHT MIDDLE CEREBRAL ARTERY: Unremarkable. No occlusion or significant stenosis. No aneurysm. RIGHT POSTERIOR CEREBRAL ARTERY: Unremarkable. No occlusion or significant stenosis. No aneurysm. RIGHT INTRACRANIAL INTERNAL CAROTID ARTERY: Unremarkable. No significant stenosis. No dissection or occlusion. RIGHT INTRACRANIAL VERTEBRAL ARTERY: Unremarkable. No significant stenosis. No dissection or occlusion. LEFT ANTERIOR CEREBRAL ARTERY: Unremarkable. No occlusion or significant stenosis. No aneurysm. LEFT MIDDLE CEREBRAL ARTERY: Unremarkable. No occlusion or significant stenosis. No aneurysm. LEFT POSTERIOR CEREBRAL ARTERY: Unremarkable. No occlusion or significant stenosis. No aneurysm. LEFT INTRACRANIAL INTERNAL CAROTID ARTERY: Unremarkable. No significant stenosis. No dissection or occlusion. LEFT INTRACRANIAL VERTEBRAL ARTERY: Unremarkable. No significant stenosis. No dissection or occlusion. BASILAR ARTERY: Unremarkable. No occlusion or significant stenosis. No aneurysm. OTHER VASCULATURE: There is no contrast seen within the initial right vertebral artery with contrast seen in the distal aspect. The left vertebral artery is much larger than the right and the dominant supplier to the basilar system. No vascular malformation. NECK: RIGHT COMMON CAROTID ARTERY: Unremarkable. No significant stenosis. No dissection or occlusion. RIGHT EXTRACRANIAL INTERNAL CAROTID ARTERY: There are calcifications within the carotid bulbs and proximal internal carotid arteries. No significant stenosis. No dissection or occlusion. RIGHT EXTERNAL CAROTID ARTERY: Unremarkable. No occlusion. RIGHT EXTRACRANIAL VERTEBRAL ARTERY: Unremarkable. No significant stenosis. No dissection or occlusion. LEFT COMMON CAROTID ARTERY: Unremarkable. No significant stenosis. No dissection or occlusion. LEFT EXTRACRANIAL INTERNAL CAROTID ARTERY: There is a 60% stenosis of proximal left internal carotid artery due to a combination of calcific and soft plaquing. LEFT EXTERNAL CAROTID ARTERY: Unremarkable. No occlusion. LEFT EXTRACRANIAL VERTEBRAL ARTERY: Unremarkable. No significant stenosis. No dissection or occlusion. BRACHIOCEPHALIC AND SUBCLAVIAN ARTERIES: Unremarkable as visualized. No occlusion or significant stenosis. LUNG APICES: See above. HEAD and NECK: BONES/JOINTS: Unremarkable. No discrete lytic or blastic abnormalities. SOFT TISSUES: Unremarkable. CAROTID STENOSIS REFERENCE USING NASCET CRITERIA: % ICA stenosis = (1 - narrowest ICA diameter/diameter of distal cervical ICA) x 100. Mild - <50% stenosis. Moderate - 50-69% stenosis. Severe - 70-94% stenosis. Near occlusion - 95-99% stenosis. Occluded - 100% stenosis. CT/STROKE CTA Head AND Neck W/Con IMPRESSION: 1. 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 2. No contrast seen within the proximal right vertebral artery. There is contrast seen within the distal right vertebral artery. The left vertebral artery is the dominant supply to the basilar system. Electronically Signed: Nahid Salazar MD at 16:48 EST ,
[2023-11-29 16:31] LABS: Absolute Lymphocyte Count 1.43 X10^3/uL (0.83-4.51); Absolute Neutrophil Count 3.9 X10^3/uL (2.0-7.7); Basophil# 0.03 X10^3/uL; Basophil% 0.5 % (0-1); Eosinophil# 0.45 X10^3/uL; Hematocrit 29.2 % (40-54); Hemoglobin 9.6 g/dL (13.0-16.5); Lymphocyte # 1.43 X10^3/ul (0.83-4.51); Lymphocyte % 22.2 % (19-41); Mean Corp Hgb Conc 32.9 g/dL (32-36); Mean Corpuscular Hgb 31.4 pg (27.0-32.0); Mean Corpuscular Volume 95.4 fL (80-94); Mean Platelet Vol. 9.8 fl (6.2-12.0); Monocyte# 0.57 X10^3/uL; Monocyte% 8.9 % (0-10); NRBC Flagged by Analyzer 0 % (0-5); Neutrophil # 3.94 X10^3/uL (2.7-7.7); Neutrophil % 61.1 % (47-70); Platelet Count 188 K/mm3 (150-450); RBC Distribution Width CV 14.6 % (11.6-14.6); RBC Distribution Width SD 50.5 fl (35.1-43.9); Red Blood Count 3.06 M/mm3 (4.6-6.2); White Blood Count 6.4 K/mm3 (4.4-11.0)
--- NOTE | 2023-11-29 16:35 | EDS_ITS ---
HPI History of Present Illness Chief Complaint: Neuro S/Sx Narrative Narrative: 78-year-old male presented with altered mental status. Patient was discharged home from [facility] today. He was in the hospital for altered mental status/confusion. Ultimately diagnosed with metabolic encephalopathy, aspiration pneumonia. He was sent back to the facility today and EMS reports that initially he was awake and talking. He had an episode where he was not really talking to them and they became concerned for when they arrived to the facility he was awake and talking again. Subsequently he stopped talking and is very confused. Unable to get him to speak. He brought back to the emergency room. He arrived in the ambulance bay I was called out to evaluate him. He is not responsive to voice or sternal rub. He is not able to participate in neurologic exam. His eyes do appear to be rolled back in his head. He is not actively seizing visibly. No evidence of trauma. Family states that he had been more awake since the hospital stopped give him Seroquel. He has not had a dose of this today. [facility] Medical History Acute respiratory failure with hypoxia Altered mental status Anemia Anemia Anemia Anxiety Atherosclerotic heart disease of [place] coronary artery without angina pectoris Atrial fibrillation Back pain Chest pain CHF (congestive heart failure) CHI (closed head injury) Congestive heart failure (CHF) COPD exacerbation Coronary artery disease Degenerative disc disease, lumbar Degenerative disk disease Delirium Diabetes Essential hypertension Former smoker GERD (gastroesophageal reflux disease) Hallucinations HLD (hyperlipidemia) Hypertension Hypertensive urgency Hypoxia Lower extremity edema Macrocytic anemia On home oxygen therapy Orthostatic hypotension Parkinson's disease Presence of stent in coronary artery (~05/12/21) Short-term memory loss Syncope Vertigo Home Medications pantoprazole 40 mg tablet,delayed release 40 mg PO DAILY PRN GERD 10/25/21 [History Last Taken Unknown] amlodipine 10 mg tablet 10 mg PO DAILY 03/26/23 [History Last Taken Unknown] aspirin 81 mg tablet,delayed release (Bertin Low Dose Aspirin) 81 mg PO DAILY HEART HEALTH 08/16/23 [History Last Taken Unknown] atorvastatin 20 mg tablet 20 mg PO QHS #90 tabs 08/16/23 [Rx Last Taken Unknown] lisinopril 10 mg tablet 20 mg PO BID 08/16/23 [History Last Taken Unknown] albuterol sulfate 90 mcg/actuation aerosol inhaler 1 inh inhalation Q6H PRN shortness of breath or wheezing #6.7 grams 10/02/23 [Rx Last Taken Unknown] Allergy/AdvReac Type Severity Reaction Status Date / Time No Known Allergies Allergy Verified 11/29/23 17:45 Surgical History History of coronary artery stent placement Presence of coronary angioplasty implant and graft (~05/12/21) Social History household members: spouse Smoking Status: Former smoker alcohol intake: never substance use type: does not use ROS ROS ED Review of Systems ROS Unobtainable: due to encephalopathy, due to mental condition and due to mental status EXAM Physical Exam Const Vital Signs: 11/29/23 16:32 11/29/23 16:42 11/29/23 16:42 Temperature 97.1 F L 97.1 F L Temperature Source Temporal Temporal Pulse Rate 58 L 58 L Respiratory Rate 18 18 Blood Pressure 187/52 H 185/52 H Blood Pressure Mean 97 96 Pulse Ox 96 97 97 Oxygen Delivery Method Nasal Cannula Nasal Cannula Nasal Cannula Oxygen Flow Rate (L/min) 2 2 2 11/29/23 16:42 11/29/23 17:12 11/29/23 17:12 Temperature 97.1 F L Temperature Source Temporal Pulse Rate 58 L 53 L 55 L Respiratory Rate 16 18 17 Blood Pressure 187/52 H 150/59 H 150/59 H Blood Pressure Mean 97 89 89 Pulse Ox 97 98 97 Oxygen Delivery Method Room Air Nasal Cannula Nasal Cannula Oxygen Flow Rate (L/min) 2 2 2 11/29/23 17:30 11/29/23 17:44 Temperature 96.2 F L Temperature Source Pulse Rate 54 L 56 L Respiratory Rate 16 18 Blood Pressure 147/73 H 147/73 H Blood Pressure Mean 97 97 Pulse Ox 100 100 Oxygen Delivery Method Nasal Cannula Oxygen Flow Rate (L/min) 2 Positive obese General Appearance ED: NAD Nutritional Appearance: obese HEENT Reports moist mucous membranes Eyes PERRL and EOMs intact bilaterally Chest Wall inspection of chest normal Resp normal respiratory effort Auscultation: Negative for rales, rhonchi or wheezes GI GI Narrative: Not apparently tender Neuro Federica Coma Scale: document GCS findings Withdraws to Pain Confused Skin General Skin Exam: Negative for jaundice MDM MDM MDM Narrative Medical decision making narrative: Patient presenting to [facility] after discharge just recently. Patient unre sponsive on initial evaluation. There is concern for seizure activity as his eyes rolling backwards and he is Rigidity in the Right Upper Extremity. Unable to Follow Any Commands. Stroke team was called and patient taken for CT imaging. When he did come back to the room he was awake. By the time the neurologist beamed in he was able to follow all commands and his NIH stroke scale score was 0. It was recommended by neurology that he be admitted for seizure workup and MRI as well. Patient has not had a return of his altered mental status. CBC shows no leukocytosis with a normal blood count 6.4. Hemoglobin 9.6. Platelets normal. PT/INR within normal limits. Renal function electrolytes normal. High-sensitivity troponin is 39. EKG on my interpretation shows a sinus bradycardia with a ventricular to 56 bpm with first-degree block. No significant interval change from previous EKG. Chest x-ray my interpretation shows no acute process. The radiologist interprets this and agrees. Patient would not be given any antiepileptics and thus he has another seizure . Patient will be admitted to PCU for further evaluation. Impression: 1. TIA 2. Seizure Lab Data Labs: Laboratory Results - last 24 hr 11/29/23 16:20 WBC 6.4 RBC 3.06 L Hgb 9.6 L Hct 29.2 L MCV 95.4 H MCH 31.4 MCHC 32.9 RDW Std Deviation 50.5 H RDW Coeff of Sophie 14.6 Plt Count 188 MPV 9.8 Immature Gran % (Auto) 0.300 Neut % (Auto) 61.1 Lymph % (Auto) 22.2 Humphreys % (Auto) 8.9 Eos % (Auto) 7.0 H Baso % (Auto) 0.5 Absolute Neuts (auto) 3.9 Absolute Lymphs (auto) 1.43 Nucleated RBC % 0 PT 13.8 INR 1.1 APTT 28.1 Sodium 144 Potassium 4.0 Chloride 115 H Carbon Dioxide 27.0 Anion Gap 2 L BUN 11 Creatinine 0.90 Estim Creat Clear Calc 75.21 Est GFR (MDRD) Af Amer 105 Est GFR (MDRD) Non-Af 86 BUN/Creatinine Ratio 12.2 Glucose 81 Calcium 8.7 Troponin I High Sens 39 Radiography Diagnostic Testing: Clinical Impression(s) from Imaging Studies Brain CT 11/29/23 16:12 IMPRESSION: 1. No acute intracranial abnormality. There has been no significant change from the reference examination. 2. Stable underlying senescent change with small vessel ischemia. 3. Aspects score 10. Electronically Signed: Nahid Salazar MD at 16:26 EST , ADDENDUM: 11/29/23 1637 IMPRESSION: 1. No acute intracranial abnormality. There has been no significant change from the reference examination. 2. Stable underlying senescent change with small vessel ischemia. 3. Aspects score 10. N.B. : The above Results were Read Back by Nahid Salazar MD to Ernesto Mario DO, and understanding confirmed on 11/29/2023 16:30:58 (ET). Electronically Signed: Naihd Salazar MD at 16:26 EST , Head/Neck CTA 11/29/23 16:13 IMPRESSION: 1. 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 2. No contrast seen within the proximal right vertebral artery. There is contrast seen within the distal right vertebral artery. The left vertebral artery is the dominant supply to the basilar system. Electronically Signed: Nahid Salazar MD at 16:48 EST , ADDENDUM: 11/29/23 1700 IMPRESSION: 1. 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 2. No contrast seen within the proximal right vertebral artery. There is contrast seen within the distal right vertebral artery. The left vertebral artery is the dominant supply to the basilar system. N.B. : The above Results were Read Back by Nahid Salazar MD to Ernesto Mario DO, and understanding confirmed on 11/29/2023 16:53:17 (ET). Electronically Signed: Nahid Salazar MD at 16:48 EST , Chest X-Ray 11/29/23 16:51 IMPRESSION: No acute pulmonary abnormality. There has been resolution of right lower lobe pneumonia. Electronically Signed: Nahid Salazar MD at 17:12 EST , Discharge Plan Triage Chief Complaint: Neuro S/Sx ED Provider: Ernesto Mario Dx/Rx/DC Orders Prescriptions: No Action atorvastatin 20 mg tablet 20 mg PO QHS Qty: 90 3RF aspirin [Bertin Low Dose Aspirin] 81 mg tablet,delayed release (DR/EC) 81 mg PO DAILY pantoprazole 40 mg tablet,delayed release (DR/EC) 40 mg PO DAILY PRN (Reason: GERD) albuterol sulfate 90 mcg/actuation HFA aerosol inhaler 1 inh inhalation Q6H PRN (Reason: shortness of breath or wheezing) Qty: 6.7 0RF amlodipine 10 mg tablet 10 mg PO DAILY lisinopril 10 mg tablet 20 mg PO BID Primary Care Provider: Jasson England Referrals: Jasson England MD [Primary Care Provider] -
[2023-11-29 16:41] LABS: International Normalized Ratio 1.1; Partial Thromboplast Time 28.1 Seconds (24.1-36.2); Prothrombin Time (Protime)PT. 13.8 SECONDS (11.7-14.9)
[2023-11-29 16:50] LABS: Anion Gap 2 (5-15); BUN 11 mg/dL (7-18); BUN/Creat Ratio 12.2 RATIO (10-20); Calcium,Total 8.7 mg/dL (8.5-10.1); Chloride 115 mmol/L (98-107); EST Glomerular Filtration Rate 86 mL/min (>60); Est Glom Filt Rate - Afr Amer 105 mL/min (>60); Estimated Creatinine Clearance 75.21 ml/min; Glucose 81 mg/dL (74-106); Sodium Level 144 mmol/L (136-145); Troponin-I HS 39 pg/mL (3.0-78.0)
--- NOTE | 2023-11-29 16:51 | RAD_ITS ---
EXAM: XR CHEST, 1 VIEW CLINICAL INDICATION: Neuro deficit, acute, stroke suspected TECHNIQUE: Frontal view of the chest. COMPARISON: 11/23/2023 FINDINGS: LUNGS AND PLEURAL SPACES: There has been resolution of previous right lower lobe pneumonia. No pneumothorax. No effusion. HEART: Unremarkable. Cardiac silhouette not enlarged. MEDIASTINUM: Central airways and mediastinal contour are unremarkable. BONES/JOINTS: Unremarkable. No acute fracture. SOFT TISSUES: Unremarkable. RAD/Chest 1 View IMPRESSION: No acute pulmonary abnormality. There has been resolution of right lower lobe pneumonia. Electronically Signed: Nahid Salazar MD at 17:12 EST ,
--- NOTE | 2023-11-29 17:49 | ED.RN ---
DISCUSSED WITH DR. DLEGADILLO THAT PT IS NOT BEING ADMITTED WITH STROKE SYMPTOMS, PT IS ADMITTED WITH SEIZURE, ORDERS RECEIVED TO D/C [facility].
--- NOTE | 2023-11-29 18:44 | MRI_ITS ---
STUDY: MRI BRAIN WITHOUT CONTRAST REASON FOR EXAM: Male, 78 years old. Syncope, seizure, h/o parkinsons, altered mental status TECHNIQUE: Standardized multiplanar fat and water weighted pulse sequences were obtained. COMPARISON: CT of the brain November 28, 2023 FINDINGS: Moderate atrophy and minor periventricular white matter ischemic changes without mass effect or restricted diffusion. Normal bilateral basal ganglia. Normal thalami. There is no extra-axial fluid accumulation. Normal flow voids within the major intracranial circulation suggesting patency by spin echo criteria. Normal sella turcica, pituitary gland, infundibular stalk, optic chiasm and hypothalamus. Normal tectal plate and pineal gland. Normal midbrain, елена and medulla. Mildly increased signal within the left superior cerebellar hemisphere and inferior cerebellar peduncle which may be on the basis of old infarct.. Normal basal cisterns. Normal bilateral temporal bones. Normal bilateral internal auditory canals. Increased signal noted within the mastoid air cells bilaterally consistent with inflammatory changes Postsurgical changes of the right orbit. Normal visualized paranasal sinuses. Normal calvarium and skull base. Normal visualized soft tissue structures. Normal visualized upper cervical spine. MRI/Brain without Contrast IMPRESSION: Atrophy and minor periventricular white matter ischemic changes without evidence for acute infarct. 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 Electronically Signed: Jasson Borja MD at 21:22 EST ,
--- NOTE | 2023-11-29 20:15 | HP.PCM.HOS_ITS ---
HPI - General General Date of Admission: 11/29/23 Date of Service: 11/29/23 Chief Complaint: Altered mental status, possible seizure HPI Narrative KERRY VALDES, is a 78 M who presents to the emergency room at [facility] for evaluation of an unresponsive episode today he had an an ambulance that was transporting him to a group home for inpatient rehab services. EMS said that the patient was talking and awake and then had an episode where he was not talking to the attendants, they became concerned that the patient was having a stroke and initially requested a stroke alert but then called back and stated that the patient was awake and talking again and so the stroke team was canceled. Patient then stopped talking and became confused, the attendants tried to get him to answer questions but he would not speak and so a stroke alert was then called and he was transported to the ER for evaluation. The emergency room doctor went out to the ambulance bay to evaluate the patient, he was not responsive at that time to voice or sternal rub, he was not able to participate in a neurological examination. It was noted that the patient's eyes were rolled in the back of his head. There was no activity however suggestive of acute seizure. Patient was taken to CAT scan, CT of the brain revealed no evidence of hem orrhage or acute event, teleneurology saw the patient and was concerned that the patient perhaps had a seizure, he recommended the patient be admitted and undergo an MRI and an EEG. Patient's family voiced concern that he did not receive Seroquel during his hospitalization, they felt that the Seroquel was causing excessive drowsiness and mental status change. Workup in the emergency room included labs which showed a normal white blood cell count, hemoglobin was 9.6, chemistry profile showed an elevated chloride but was otherwise unremarkable. Patient will be admitted to PCU for possible seizure disorder, he will be monitored on telemetry and undergo an EEG and an MRI of the brain. Teleneurology will participate in his care. Patient's family confirmed that the patient is a full code. [facility] Medical History Acute respiratory failure with hypoxia Altered mental status Anemia Anemia Anemia Anxiety Atherosclerotic heart disease of [place] coronary artery without angina pectoris Atrial fibrillation Back pain Chest pain CHF (congestive heart failure) CHI (closed head injury) Congestive heart failure (CHF) COPD exacerbation Coronary artery disease Degenerative disc disease, lumbar Degenerative disk disease Delirium Diabetes Essential hypertension Former smoker GERD (gastroesophageal reflux disease) Hallucinations HLD (hyperlipidemia) Hypertension Hypertensive urgency Hypoxia Lower extremity edema Macrocytic anemia On home oxygen therapy Orthostatic hypotension Parkinson's disease Presence of stent in coronary artery (~05/12/21) Short-term memory loss Syncope Vertigo Home Medications pantoprazole 40 mg tablet,delayed release 40 mg PO DAILY PRN GERD 10/25/21 [History Last Taken Unknown] amlodipine 10 mg tablet 10 mg PO DAILY 03/26/23 [History Last Taken Unknown] aspirin 81 mg tablet,delayed release (Bertin Low Dose Aspirin) 81 mg PO DAILY HEART HEALTH 08/16/23 [History Last Taken Unknown] atorvastatin 20 mg tablet 20 mg PO QHS #90 tabs 08/16/23 [Rx Last Taken Unknown] lisinopril 10 mg tablet 20 mg PO BID 08/16/23 [History Last Taken Unknown] albuterol sulfate 90 mcg/actuation aerosol inhaler 1 inh inhalation Q6H PRN shortness of breath or wheezing #6.7 grams 10/02/23 [Rx Last Taken Unknown] Allergy/AdvReac Type Severity Reaction Status Date / Time No Known Allergies Allergy Verified 11/29/23 17:45 Surgical History History of coronary artery stent placement Presence of coronary angioplasty implant and graft (~05/12/21) Social History (Updated 11/29/23 @ 18:52 by Akilah Forrester) household members: spouse housing: group home Smoking Status: Former smoker alcohol intake: never substance use type: does not use ROS ROS Narrative Review of systems was unobtainable due to patient's confusion. Review of Systems ROS Unobtainable: due to mental condition Vital Signs Vital Signs Vital Signs: 11/29/23 16:32 11/29/23 16:42 11/29/23 16:42 Temperature 97.1 F L 97.1 F L Temperature Source Temporal Temporal Pulse Rate 58 L 58 L Respiratory Rate 18 18 Blood Pressure 187/52 H 185/52 H Blood Pressure Mean 97 96 Blood Pressure Source Blood Pressure Position Blood Pressure Location Pulse Ox 96 97 97 Oxygen Delivery Method Nasal Cannula Nasal Cannula Nasal Cannula Oxygen Flow Rate (L/min) 2 2 2 11/29/23 16:42 11/29/23 17:12 11/29/23 17:12 Temperature 97.1 F L Temperature Source Temporal Pulse Rate 58 L 53 L 55 L Respiratory Rate 16 18 17 Blood Pressure 187/52 H 150/59 H 150/59 H Blood Pressure Mean 97 89 89 Blood Pressure Source Blood Pressure Position Blood Pressure Location Pulse Ox 97 98 97 Oxygen Delivery Method Room Air Nasal Cannula Nasal Cannula Oxygen Flow Rate (L/min) 2 2 2 11/29/23 17:30 11/29/23 17:44 11/29/23 18:37 Temperature 96.2 F L Temperature Source Pulse Rate 54 L 56 L Respiratory Rate 16 18 Blood Pressure 147/73 H 147/73 H Blood Pressure Mean 97 97 Blood Pressure Source Blood Pressure Position Blood Pressure Location Pulse Ox 100 100 100 Oxygen Delivery Method Nasal Cannula Nasal Cannula Oxygen Flow Rate (L/min) 2 2 11/29/23 19:08 Temperature 96.8 F L Temperature Source Oral Pulse Rate 59 L Respiratory Rate 15 Blood Pressure 143/63 H Blood Pressure Mean 89 Blood Pressure Source Monitor Blood Pressure Position Semi-Fowlers Blood Pressure Location Right Arm Pulse Ox 97 Oxygen Delivery Method Nasal Cannula Oxygen Flow Rate (L/min) 2 Weight Weight: 90.8 kg Body Mass Index (BMI) 26.5 Physical Exam Const alert and no apparent distress Constitutional Narrative: Patient is alert, he can answer some simple questions appropriately General Appearance: cooperative and well developed Orientation / Consciousness: awake HEENT normocephalic, head/scalp atraumatic, hearing grossly normal bilaterally and moist oral mucous membranes Eyes PERRL, EOMs intact bilaterally and conjunctivae normal Neck supple, no JVD, thyroid normal and no carotid bruits General: trachea midline Resp normal respiratory effort, no retractions, no use of accessory muscles and clear to auscultation bilaterally Auscultation: Negative for rales, rhonchi or wheezes Cardio regular rate, regular rhythm, S1 normal heart sound, S2 normal heart sound, no murmurs, no rub and no gallops GI normal to inspection, nondistended, normoactive bowel sounds, soft to palpation, non-tender and non-distended Extremity no clubbing, cyanosis or edema Skin no rashes or lesions noted General Skin Exam: no breakdown Neuro CN's II-XII intact bilaterally Neuro Narrative: Patient is alert, he does not carry on extended conversation, he is able to say few words but he appears confused Sensorium / Orientation: awake and alert Psych Psych Narrative: Patient exhibits confusion Results Lab / Micro Data 11/29/23 16:20 11/29/23 16:20 Labs: Laboratory Results - last 24 hr 11/29/23 16:20: WBC 6.4, RBC 3.06 L, Hgb 9.6 L, Hct 29.2 L, MCV 95.4 H, MCH 31.4, MCHC 32.9, RDW Std Deviation 50.5 H, RDW Coeff of Sophie 14.6, Plt Count 188, MPV 9.8, Immature Gran % (Auto) 0.300, Neut % (Auto) 61.1, Lymph % (Auto) 22.2, [place] % (Auto) 8.9, Eos % (Auto) 7.0 H, Baso % (Auto) 0.5, Absolute Neuts (auto) 3.9, Absolute Lymphs (auto) 1.43, Nucleated RBC % 0, PT 13.8, INR 1.1, APTT 28.1, Sodium 144, Potassium 4.0, Chloride 115 H, Carbon Dioxide 27.0, Anion Gap 2 L, BUN 11, Creatinine 0.90, Estim Creat Clear Calc 75.21, Est GFR (MDRD) Af Amer 105, Est GFR (MDRD) Non-Af 86, BUN/Creatinine Ratio 12.2, Glucose 81, Calcium 8.7, Troponin I High Sens 39 Imaging Radiology Impression Brain CT 11/29/23 16:12 IMPRESSION: 1. No acute intracranial abnormality. There has been no significant change from the reference examination. 2. Stable underlying senescent change with small vessel ischemia. 3. Aspects score 10. Electronically Signed: Nahid Salazar MD at 16:26 EST , ADDENDUM: 11/29/23 6831 IMPRESSION: 1. No acute intracranial abnormality. There has been no significant change from the reference examination. 2. Stable underlying senescent change with small vessel ischemia. 3. Aspects score 10. N.B. : The above Results were Read Back by Nahid Salazar MD to Ernesto Mario DO, and understanding confirmed on 11/29/2023 16:30:58 (ET). Electronically Signed: Nahid Salazar MD at 16:26 EST , Head/Neck CTA 11/29/23 16:13 IMPRESSION: 1. 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 2. No contrast seen within the proximal right vertebral artery. There is contrast seen within the distal right vertebral artery. The left vertebral artery is the dominant supply to the basilar system. Electronically Signed: Nahid Salazar MD at 16:48 EST , ADDENDUM: 11/29/23 1700 IMPRESSION: 1. 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 2. No contrast seen within the proximal right vertebral artery. There is contrast seen within the distal right vertebral artery. The left vertebral artery is the dominant supply to the basilar system. N.B. : The above Results were Read Back by Nahid Salazar MD to Ernesto Mario DO, and understanding confirmed on 11/29/2023 16:53:17 (ET). Electronically Signed: Nahid Salazar MD at 16:48 EST , Chest X-Ray 11/29/23 16:51 IMPRESSION: No acute pulmonary abnormality. There has been resolution of right lower lobe pneumonia. Electronically Signed: Nahid Salazar MD at 17:12 EST , Assessment & Plan Assessment/Plan (1) Acute alteration in mental status: PLAN: Plan 1. Acute alteration of mental status concerning for possible seizure-patient will be admitted to PCU, he will be monitored on telemetry, and EEG will be obtained and an MRI of the brain will be obtained. Patient will be seen by trin[facility] rios #2 acute metabolic encephalopathy-patient had encephalopathy during his recent hospitalization, he is confused today but he is alert. Continue to monitor. #3 recent aspiration pneumonia-patient completed a course of antibiotics #4 acute debility-patient will need to return to an extended care facility for further care after this hospitalization #5 possible Parkinson's disease, I had a discussion with the patient's family, at 1 time he had been on Sinemet for possible Parkinson's disease, this was instituted by an extended care physician, I talked with him briefly about placing him back on this medication but I ultimately decided not to start any Parkinson medication on him at the present time. He is due to have an outpatient visit with a neurologist in town here. Total clinical time spent by myself addressing the patient's medical issues, reviewing all of his data, and collaborating with the patient's care team: 75 minutes Charges/Coding Visit Charges Inpatient E&M: 07526 Init Hosp L3
[2023-11-29] MEDS: Atorvastatin Calcium 20 MG Tablet PO (20:40)
[2023-11-29] MEDS: Lisinopril 20 MG Tablet PO (20:40)
[2023-11-29] MEDS: Heparin Injection (Vial) 5,000 UNIT/ML VIAL 5000 UNIT SC (20:41)
[2023-11-30] VITALS (7 sets, daily range): BP systolic 102–150; BP diastolic 48–94; PULSE 57–76; RESP 15–18; TEMP 36.6–36.9; O2SAT 98–100; BMI 26.5
[2023-11-30] MEDS: Lisinopril 20 MG Tablet PO (08:47)
[2023-11-30] MEDS: Pantoprazole Sodium 40 MG Tablet PO (08:47)
[2023-11-30] MEDS: Aspirin E.C. 81 MG Tablet PO (08:47)
[2023-11-30] MEDS: amLODIPine 10 MG Tablet PO (08:48)
[2023-11-30] MEDS: Heparin Injection (Vial) 5,000 UNIT/ML VIAL 5000 UNIT SC ×2 (08:48→20:27)
--- NOTE | 2023-11-30 09:23 | CASEMGMT ---
Discharge Planning Updates sent to [facility]. Lillian Hollis, Discharge Planning Asst.
[2023-11-30 10:58] LABS: Bedside Glucose 78 mg/dL (74-106)
[2023-11-30] MEDS: 0.9% Normal Saline (500mL Bag) 500 ML 999 ML IV (11:12)
[2023-11-30] MEDS: 0.9% Normal Saline (1000mL) 1,000 ML 125 ML IV ×2 (12:19→23:20)
--- NOTE | 2023-11-30 14:38 | PN_ITS ---
Subjective Subjective Patient seen and examined. He was actually just discharged yesterday but on the way to the snf, patient was noted to have episodes of unresponsiveness with his eyes rolling back in his head. There was concern for seizures so he was brought back to the ED. He has no known history of seizure. Patient seen and examined today. He was alert and communicative. He had no active complaints. Review of systems was otherwise negative. Patient however had another episode of such unresponsiveness per his nurse. She noted that at that time, he had just gone to the bathroom and had been sitting on the toilet for a while. Blood pressure was also running low so concern is for orthostatic hypotension resulting in the symptoms. Objective Data Objective Data Vital Signs: Vital Signs Temp Pulse Resp BP Pulse Ox O2 Del Method O2 Flow Rate 98 F 58 L 15 125/57 H 100 Nasal Cannula 2 11/30/23 08:27 11/30/23 10:46 11/30/23 10:42 11/30/23 10:46 11/30/23 10:42 11/30/23 10:42 11/30/23 11:17 Oxygen Flow Rate (L/min) 2 Oxygen Delivery Method Nasal Cannula Weight: 200 lb 2.876 oz Body Mass Index (BMI) 26.5 Intake & Output: Intake and Output for Last 24 Hours 11/28/23 11/29/23 11/30/23 23:59 23:59 23:59 Intake Total 600 / 600 Output Total 300 / 300 Balance 300 / 300 Lab / Micro Data 11/29/23 16:20 11/29/23 16:20 Labs: Laboratory Results - last 24 hr 11/29/23 16:20: WBC 6.4, RBC 3.06 L, Hgb 9.6 L, Hct 29.2 L, MCV 95.4 H, MCH 31.4, MCHC 32.9, RDW Std Deviation 50.5 H, RDW Coeff of Sophie 14.6, Plt Count 188, MPV 9.8, Immature Gran % (Auto) 0.300, Neut % (Auto) 61.1, Lymph % (Auto) 22.2, Daniels % (Auto) 8.9, Eos % (Auto) 7.0 H, Baso % (Auto) 0.5, Absolute Neuts (auto) 3.9, Absolute Lymphs (auto) 1.43, Nucleated RBC % 0, PT 13.8, INR 1.1, APTT 28.1, Sodium 144, Potassium 4.0, Chloride 115 H, Carbon Dioxide 27.0, Anion Gap 2 L, BUN 11, Creatinine 0.90, Estim Creat Clear Calc 75.21, Est GFR (MDRD) Af Amer 105, Est GFR (MDRD) Non-Af 86, BUN/Creatinine Ratio 12.2, Glucose 81, Calcium 8.7, Troponin I High Sens 39 11/30/23 10:40: POC Glucose 78 Radiography Diagnostic Testing: Radiology Impression Brain CT 11/29/23 16:12 IMPRESSION: 1. No acute intracranial abnormality. There has been no significant change from the reference examination. 2. Stable underlying senescent change with small vessel ischemia. 3. Aspects score 10. Electronically Signed: Nahid Salazar MD at 16:26 EST , ADDENDUM: 11/29/23 1637 IMPRESSION: 1. No acute intracranial abnormality. There has been no significant change from the reference examination. 2. Stable underlying senescent change with small vessel ischemia. 3. Aspects score 10. N.B. : The above Results were Read Back by Nahid Salazar MD to Ernesto Mario DO, and understanding confirmed on 11/29/2023 16:30:58 (ET). Electronically Signed: Nahid Salazar MD at 16:26 EST , Head/Neck CTA 11/29/23 16:13 IMPRESSION: 1. 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 2. No contrast seen within the proximal right vertebral artery. There is contrast seen within the distal right vertebral artery. The left vertebral artery is the dominant supply to the basilar system. Electronically Signed: Nahid Salazar MD at 16:48 EST , ADDENDUM: 11/29/23 1700 IMPRESSION: 1. 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 2. No contrast seen within the proximal right vertebral artery. There is contrast seen within the distal right vertebral artery. The left vertebral artery is the dominant supply to the basilar system. N.B. : The above Results were Read Back by Nahid Salazar MD to Ernesto Mario DO, and understanding confirmed on 11/29/2023 16:53:17 (ET). Electronically Signed: Nahid Salazar MD at 16:48 EST , Chest X-Ray 11/29/23 16:51 IMPRESSION: No acute pulmonary abnormality. There has been resolution of right lower lobe pneumonia. Electronically Signed: Nahid Salazar MD at 17:12 EST , Brain MRI 11/29/23 18:44 IMPRESSION: Atrophy and minor periventricular white matter ischemic changes without evidence for acute infarct. 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 Electronically Signed: Jasson Borja MD at 21:22 EST , Physical Exam Const alert General Appearance: cooperative HEENT normocephalic, head/scalp atraumatic and moist oral mucous membranes Eyes PERRL and EOMs intact bilaterally Neck no lymphadenopathy, supple and no JVD Lymph Lymphatic: no lymphadenopathy noted and no lymphedema noted Resp Resp Narrative: Diminished breath sounds bibasilarly. No wheezes or crackles. On room air. Cardio regular rate, regular rhythm, S1 normal heart sound, S2 normal heart sound and no murmurs Peripheral Pulses: pulses 2+ throughout GI normal to inspection, nondistended, normoactive bowel sounds, soft to palpation, non-tender and non-distended Extremity normal capillary refill, no clubbing, cyanosis or edema and no calf tenderness General Extremity: no tenderness to palpation of joints or extremities Skin General Skin Exam: no breakdown Neuro Neuro Narrative: Alert, able to communicate. Moves all extremities spontaneously. Motor Exam: general weakness Psych Mood & Affect: flat affect Assessment & Plan Assessment/Plan (1) Acute alteration in mental status: (2) Bradycardia: PLAN: Plan #Acute episodic encephalopathy * concerning for seizure. I told the back of his head also was being transported to the significant he had brief episodes of unresponsiveness. Patient however subsequently rebounded. * MRI of the brain was negative for any evidence of any acute intracranial pathology. EEG pending. * He did have another such episode today and he was noted to be hypotensive then so concern is that orthostatic hypotension may be contributing to this. 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 He will need to see a neurologist to be evaluated for this. * Being hydrated gently with IV fluids. * Hold BP meds. * #Debility and weakness: PT.OT on board. Fall precautions # History of bradycardia: * Was recently in the hospital and was bradycardic. * This was episodic and did not improve. * Cardiology reviewed patient and recommended conservative treatment. * TSH was within normal limits and 2D echo showed EF of 65%. * DVT prophylaxis: SCDs. Charges/Coding Visit Charges Inpatient E&M: 96480 Subs Hosp L3
--- NOTE | 2023-11-30 15:21 | CASEMGMT ---
Addendum entered by Hansa Willett 11/30/23 15:36: Social Work SW put a note in [facility] to [facility] that if precert was attained, to call PCU directly. Green sheet and transport form placed on chart. SHEKHAR Albrecht Original Note: Social Work SW called daughter Urban, she confirmed plan would be for pt to return to [facility]. SW explained we will need a new precert, Urban states understanding. Urban spoke on the difficulties with her father's declining health, SW offered support. SW sent updates to [facility] via [facility], asked them to start precert, though it is anticipated pt will be here through the weekend. SW will continue to follow. SHEKHAR Albrecht
[2023-11-30] MEDS: Flu Vacc QS2023-24(65YR UP)/PF 240 MCG/0.7 ML Syringe IM (15:40)
--- NOTE | 2023-12-01 01:00 | RAD_ITS ---
EXAM: XR CHEST, 1 VIEW CLINICAL INDICATION: crackles TECHNIQUE: Frontal view of the chest. COMPARISON: Single view chest 11/29/2023 FINDINGS: LUNGS AND PLEURAL SPACES: Unremarkable. No consolidation or edema. No pneumothorax. No effusion. HEART: Mild enlargement of the cardiac silhouette. MEDIASTINUM: Central airways and mediastinal contour are unremarkable. BONES/JOINTS: Unremarkable. No acute fracture. SOFT TISSUES: Unremarkable. RAD/Chest 1 View (Portable) IMPRESSION: No acute findings in the chest. Electronically Signed: Benjamin Mejia MD at 2:06 EST ,
[2023-12-01 02:13] LABS: Absolute Lymphocyte Count 1.64 X10^3/uL (0.83-4.51); Absolute Neutrophil Count 4.8 X10^3/uL (2.0-7.7); Basophil# 0.03 X10^3/uL; Basophil% 0.4 % (0-1); Eosinophil# 0.24 X10^3/uL; Eosinophils% 3.3 % (0-5); Hematocrit 26.7 % (40-54); Hemoglobin 8.4 g/dL (13.0-16.5); Lymphocyte # 1.64 X10^3/ul (0.83-4.51); Lymphocyte % 22.5 % (19-41); Mean Corp Hgb Conc 31.5 g/dL (32-36); Mean Corpuscular Hgb 30.5 pg (27.0-32.0); Mean Corpuscular Volume 97.1 fL (80-94); Mean Platelet Vol. 9.8 fl (6.2-12.0); Monocyte# 0.58 X10^3/uL; Monocyte% 7.9 % (0-10); NRBC Flagged by Analyzer 0 % (0-5); Neutrophil # 4.79 X10^3/uL (2.7-7.7); Neutrophil % 65.6 % (47-70); Platelet Count 172 K/mm3 (150-450); RBC Distribution Width CV 14.6 % (11.6-14.6); RBC Distribution Width SD 51.7 fl (35.1-43.9); Red Blood Count 2.75 M/mm3 (4.6-6.2); White Blood Count 7.3 K/mm3 (4.4-11.0)
[2023-12-01 02:32] LABS: BNP,B-Type NATRIURETIC PEPTIDE 25.2 pg/mL (0-100)
[2023-12-01 02:36] LABS: Anion Gap 3 (5-15); BUN 17 mg/dL (7-18); BUN/Creat Ratio 12.1 RATIO (10-20); Calcium,Total 8.6 mg/dL (8.5-10.1); Chloride 117 mmol/L (98-107); EST Glomerular Filtration Rate 52 mL/min (>60); Est Glom Filt Rate - Afr Amer 63 mL/min (>60); Estimated Creatinine Clearance 46.96 ml/min; Glucose 79 mg/dL (74-106); Potassium 3.9 mmol/L (3.5-5.1); Sodium Level 145 mmol/L (136-145)
[2023-12-01 02:45] VITALS: BP 132/59; PULSE 69; RESP 18; TEMP 36.7; O2SAT 94
[2023-12-01 07:55] VITALS: O2SAT 91
[2023-12-01 09:05] VITALS: BP 159/62; PULSE 64; RESP 14; TEMP 36.8; O2SAT 92
[2023-12-01] MEDS: 0.9% Normal Saline (1000mL) 1,000 ML 100 ML IV (09:12)
--- NOTE | 2023-12-01 10:50 | PN_ITS ---
Subjective Subjective Patient seen and examined. He had no complaints. He is alert with episodic confusion. He has remained hemodynamically stable. Objective Data Objective Data Vital Signs: Vital Signs Temp Pulse Resp BP Pulse Ox O2 Del Method O2 Flow Rate 98.2 F 64 14 159/62 H 92 Room Air 2 12/01/23 09:05 12/01/23 09:05 12/01/23 09:05 12/01/23 09:05 12/01/23 09:05 12/01/23 09:08 12/01/23 00:45 Oxygen Flow Rate (L/min) 2 Oxygen Delivery Method Room Air Weight: 200 lb 2.876 oz Body Mass Index (BMI) 26.5 Intake & Output: Intake and Output for Last 24 Hours 11/29/23 11/30/23 12/01/23 23:59 23:59 23:59 Intake Total 2290 / 2290 203 / 203 Output Total 800 / 800 200 / 200 Balance 1490 / 1490 3 / 3 Lab / Micro Data 12/01/23 02:06 12/01/23 02:06 Labs: Laboratory Results - last 24 hr 11/30/23 10:40: POC Glucose 78 12/01/23 02:06: WBC 7.3, RBC 2.75 L, Hgb 8.4 L, Hct 26.7 L, MCV 97.1 H, MCH 30.5, MCHC 31.5 L, RDW Std Deviation 51.7 H, RDW Coeff of Sophie 14.6, Plt Count 172, MPV 9.8, Immature Gran % (Auto) 0.300, Neut % (Auto) 65.6, Lymph % (Auto) 22.5, [place] % (Auto) 7.9, Eos % (Auto) 3.3, Baso % (Auto) 0.4, Absolute Neuts (auto) 4.8, Absolute Lymphs (auto) 1.64, Nucleated RBC % 0, Sodium 145, Potassium 3.9, Chloride 117 H, Carbon Dioxide 25.0, Anion Gap 3 L, BUN 17, Creatinine 1.40 H, Estim Creat Clear Calc 46.96, Est GFR (MDRD) Af Amer 63, Est GFR (MDRD) Non-Af 52 L, BUN/Creatinine Ratio 12.1, Glucose 79, Calcium 8.6, B- Natriuretic Peptide 25.2 Radiography Diagnostic Testing: Radiology Impression Chest X-Ray 12/01/23 01:00 IMPRESSION: No acute findings in the chest. Electronically Signed: Benjamin Mejia MD at 2:06 EST , Physical Exam Const alert and no apparent distress Constitutional Narrative: Patient is alert, he can answer some simple questions appropriately General Appearance: cooperative Orientation / Consciousness: awake HEENT normocephalic, head/scalp atraumatic, hearing grossly normal bilaterally and moist oral mucous membranes Eyes PERRL, EOMs intact bilaterally and conjunctivae normal Neck no lymphadenopathy, supple, no JVD, thyroid normal and no carotid bruits General: trachea midline Lymph Lymphatic: no lymphadenopathy noted and no lymphedema noted Resp normal respiratory effort, no retractions, no use of accessory muscles and clear to auscultation bilaterally Resp Narrative: Diminished breath sounds bibasilarly. No wheezes or crackles. On room air. Auscultation: Negative for rales, rhonchi or wheezes Cardio regular rate, regular rhythm, S1 normal heart sound, S2 normal heart sound, no murmurs, no rub and no gallops Peripheral Pulses: pulses 2+ throughout GI normal to inspection, nondistended, normoactive bowel sounds, soft to palpation, non-tender and non-distended Extremity normal capillary refill, no clubbing, cyanosis or edema and no calf tenderness General Extremity: no tenderness to palpation of joints or extremities Skin no rashes or lesions noted General Skin Exam: no breakdown Neuro CN's II-XII intact bilaterally Neuro Narrative: Alert, able to communicate. Moves all extremities spontaneously. Sensorium / Orientation: awake and alert Motor Exam: general weakness Psych Psych Narrative: Patient exhibits confusion Mood & Affect: flat affect Assessment & Plan Assessment/Plan (1) Acute alteration in mental status: (2) Bradycardia: PLAN: Plan #Acute episodic encephalopathy * concerning for seizure. * MRI of the brain was negative for any evidence of any acute intracranial pathology. EEG pending. * He did have another such episode today and he was noted to be hypotensive then so concern is that orthostatic hypotension may be contributing to this. 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 He will need to see a neurologist to be evaluated for this. * Being hydrated gently with IV fluids. * Hold BP meds. * he is awaiting neurology evaluation. EEG done and read is pending. * #Debility and weakness: PT.OT on board. Fall precautions # History of bradycardia: * Was recently in the hospital and was bradycardic. * This was episodic and did not improve. * Cardiology reviewed patient and recommended conservative treatment. * TSH was within normal limits and 2D echo showed EF of 65%. * DVT prophylaxis: SCDs. Disposition: For DC back to intermediate facility when medically stable. Charges/Coding Visit Charges Inpatient E&M: 96795 Subs Hosp L2
--- NOTE | 2023-12-01 10:54 | NEURO.CONS ---
Assessment and Plan: Neuro Assessment/Plan KERRY VALDES is a 78 M, being evaluated by Teleneurology for episode concerning for unresponsiveness which been described as unresponsiveness while getting up from bed with PT help to go to bathroom without LOC .Also concern for eyes rolling back. Lasted for 10 minutes? Patient appears to be back to baseline at the moment and remember the event vaguely.No postictal confusion, B/B/ incontinence or tongue biting. I have reviewed EEG that showed mild to moderate encephalopathy,no seizures or IEA. Official report will be scanned in. I have concern for cardiogenic syncope and therefore would recommend ECHO , orthostatic vitals and cardiology recommendations especially in the setting of bradycardia. Transfer to [facility] for the following reasons: none I personally attended this patient and spent a total time of 60 minutes evaluating this patient including clinical assessment, review of chart, medical history imaging, and determining appropriate treatment and workup. HPI Consult Data Date of Consult: 12/01/23 HPI Narrative HPI Narrative: KERRY VALDES, is a 78 M who presented with episode of confusion and unresponsiveness. He was recently discharged from hospital in the setting of fall and aspiration pneumonia. He was discharged to [facility] and came back with episode of unresponsiveness that happened while in hospital which has been described as unresponsiveness while getting up from bed with PT help to go to bathroom without LOC .Also concern for eyes rolling back. Patient appears to be back to baseline at the moment and remember the event vaguely.No postical confusion B/B/ incontinence or tongue biting. [facility] Medical History Acute respiratory failure with hypoxia Altered mental status Anemia Anemia Anemia Anxiety Atherosclerotic heart disease of [place] coronary artery without angina pectoris Atrial fibrillation Back pain Chest pain CHF (congestive heart failure) CHI (closed head injury) Congestive heart failure (CHF) COPD exacerbation Coronary artery disease Degenerative disc disease, lumbar Degenerative disk disease Delirium Diabetes Essential hypertension Former smoker GERD (gastroesophageal reflux disease) Hallucinations HLD (hyperlipidemia) Hypertension Hypertensive urgency Hypoxia Lower extremity edema Macrocytic anemia On home oxygen therapy Orthostatic hypotension Parkinson's disease Presence of stent in coronary artery (~05/12/21) Short-term memory loss Syncope Vertigo Home Medications pantoprazole 40 mg tablet,delayed release 40 mg PO DAILY PRN GERD 10/25/21 [History Last Taken Unknown] amlodipine 10 mg tablet 10 mg PO DAILY 03/26/23 [History Last Taken Unknown] aspirin 81 mg tablet,delayed release (Bertin Low Dose Aspirin) 81 mg PO DAILY HEART HEALTH 08/16/23 [History Last Taken Unknown] atorvastatin 20 mg tablet 20 mg PO QHS #90 tabs 08/16/23 [Rx Last Taken Unknown] lisinopril 10 mg tablet 20 mg PO BID 08/16/23 [History Last Taken Unknown] albuterol sulfate 90 mcg/actuation aerosol inhaler 1 inh inhalation Q6H PRN shortness of breath or wheezing #6.7 grams 10/02/23 [Rx Last Taken Unknown] Allergy/AdvReac Type Severity Reaction Status Date / Time No Known Allergies Allergy Verified 11/29/23 17:45 Surgical History History of coronary artery stent placement Presence of coronary angioplasty implant and graft (~05/12/21) Social History (Updated 11/29/23 @ 18:52 by Akilah Forrester) household members: spouse housing: detention Smoking Status: Former smoker alcohol intake: never substance use type: does not use Vital Signs Vital Signs Vital Signs: 11/30/23 11:17 11/30/23 16:00 11/30/23 18:10 Temperature 97.9 F Temperature Source Temporal Pulse Rate 76 Pulse Strength Respiratory Rate 18 Respiratory Effort Normal Non-Labored Respiratory Depth Normal Respiratory Pattern Normal Blood Pressure 104/56 L Blood Pressure Mean 72 Blood Pressure Source Monitor Blood Pressure Position Semi-Fowlers Blood Pressure Location Left Arm Pulse Ox 100 Oxygen Delivery Method Nasal Cannula Nasal Cannula Oxygen Flow Rate (L/min) 2 2 2 11/30/23 20:26 11/30/23 19:30 11/30/23 19:30 Temperature 98.4 F Temperature Source Temporal Pulse Rate 58 L Pulse Strength Normal (2+) Respiratory Rate 18 Respiratory Effort Normal Non-Labored Respiratory Depth Normal Respiratory Pattern Normal Blood Pressure 112/94 H Blood Pressure Mean 100 Blood Pressure Source Monitor Blood Pressure Position Semi-Fowlers Blood Pressure Location Left Arm Pulse Ox 100 Oxygen Delivery Method Nasal Cannula Nasal Cannula Oxygen Flow Rate (L/min) 2 2 12/01/23 02:45 12/01/23 02:45 12/01/23 00:45 Temperature 98.0 F Temperature Source Temporal Pulse Rate 69 Pulse Strength Respiratory Rate 18 Respiratory Effort Normal Non-Labored Normal Non-Labored Respiratory Depth Normal Normal Respiratory Pattern Normal Normal Blood Pressure 132/59 H Blood Pressure Mean 83 Blood Pressure Source Monitor Blood Pressure Position Semi-Fowlers Blood Pressure Location Left Arm Pulse Ox 94 Oxygen Delivery Method Room Air Room Air Nasal Cannula Oxygen Flow Rate (L/min) 2 12/01/23 07:55 12/01/23 09:05 12/01/23 09:08 Temperature 98.2 F Temperature Source Temporal Pulse Rate 64 Pulse Strength Normal (2+) Respiratory Rate 14 Respiratory Effort Respiratory Depth Respiratory Pattern Blood Pressure 159/62 H Blood Pressure Mean 94 Blood Pressure Source Blood Pressure Position Semi-Fowlers Blood Pressure Location Left Arm Pulse Ox 91 92 Oxygen Delivery Method Room Air Room Air Oxygen Flow Rate (L/min) 12/01/23 09:08 Temperature Temperature Source Pulse Rate Pulse Strength Respiratory Rate Respiratory Effort Normal Non-Labored Respiratory Depth Normal Respiratory Pattern Normal Blood Pressure Blood Pressure Mean Blood Pressure Source Blood Pressure Position Blood Pressure Location Pulse Ox Oxygen Delivery Method Room Air Oxygen Flow Rate (L/min) Weight Weight: 90.8 kg Body Mass Index (BMI) 26.5 NIHSS NIHSS Nursing Documentation NIHSS Nursing Documentation: NIHSS: Ischemic Stroke/TIA Start: 11/29/23 19:11 Freq: Status: Complete Protocol: Activity Type Activity Date Activity User E-sign Co-sign Detail Recorded Client Recorded Date Recorded By Document 11/30/23 08:27 DS Desktop 11/30/23 08:37 DS 11/30/23 08:27 NIH Stroke Scale [NIHSS] A score of 0 is normal or asymptomatic . Total possible score is 42. Inpatient: RN or Physician to activate a stroke alert for onset of new stroke symptoms or with NIHSS increase >/= 3 points. Following change in neurological status, NIHSS will be performed per physician order or more frequently PRN. -1a. Level of Consciousness Alert; keenly responsive -1b. LOC Questions Answers BOTH questions correctly. -1c. LOC Commands Performs both tasks correctly . -2. Best Gaze Normal -3. Visual No visual loss -4. Facial Palsy Normal symmetrical movements -5a. Left Arm No drift; arm holds 90 (or 45 ) degrees for full 10 seconds -5b. Right Arm No drift; arm holds 90 (or 45 ) degrees for full 10 seconds -6a. Left Leg No drift; leg holds 30-degree position for full 5 seconds -6b. Right Leg No drift; leg holds 30-degree position for full 5 seconds -7. Limb Ataxia Absent -8. Sensory Normal; no sensory loss -9. Best Language Mild-to- moderate aphasia; -10. Dysarthria Normal -11. Extinction and Inattention No abnormality -Total 1 Query Text:A score of 0 is normal or asymptomatic. Total possible score is 42 . ED: Notify Physician for NIHSS increase by > / = 3 points. Inpatient: RN or Physician to activate a stroke alert for NIHSS increase of > / = 3 points. Coma Scale [Assess] -Eye Opening Spontaneous -Motor Obeys Commands -Verbal Oriented [Total] -Coma Scale Total 15 Physical Exam Neuro Neuro Narrative: -? General: Laying comfortably in bed; in no acute distress. -? HENT: Normal oropharynx and mucosa. Normal external appearance of ears and nose. Exophthalmos. -? Neck: Supple, no pain or tenderness -? CV:? No peripheral edema. -? Pulmonary:? Normal respiratory effort. -? Ext: No cyanosis, edema, or deformity -? Skin: No rash. Normal palpation of skin.? -? Musculoskeletal: full range of motion; no joint tenderness. Normal digits and nails by inspection. No clubbing. -? NEURO: -? Mental Status: The patient was alert and oriented to time, place, and person. Normal recent/remote memory, concentration, and general fund of knowledge. -? Language: speech is fluent but DYSARTHRIC, Naming, repetition, fluency, and comprehension intact. -? Cranial Nerves: PERRL 3mm/brisk. EOMI, visual colin full, no facial asymmetry, facial sensation intact, hearing intact, tongue midline, no evidence of atrophy or fibrillations. As performed by the nurse/KHUSHBU Sternocleidomastoid and trapezius were equally strong. Soft palate raises equally, no uvular deviations -? Motor: normal bulk, tone, and strength throughout. No pronator drift or satelliting. Upper and lower extremities equal bilaterally. -? Tone: is normal and bulk is normal -? Sensation- Intact to light touch bilaterally -? Coordination: No dysmetria on [id number], finger follow finger or [id number]. -? Gait- Gait initiation was normal. Narrow base with good heel strike and stride length was observed during ambulation. Turns were in stride. Patient was able to walk normally in tandem. Romberg was normal. Lab / Micro Data 12/01/23 02:06 12/01/23 02:06 Labs: Laboratory Results - last 24 hr 11/30/23 10:40: POC Glucose 78 12/01/23 02:06: WBC 7.3, RBC 2.75 L, Hgb 8.4 L, Hct 26.7 L, MCV 97.1 H, MCH 30.5, MCHC 31.5 L, RDW Std Deviation 51.7 H, RDW Coeff of Sophie 14.6, Plt Count 172, MPV 9.8, Immature Gran % (Auto) 0.300, Neut % (Auto) 65.6, Lymph % (Auto) 22.5, [place] % (Auto) 7.9, Eos % (Auto) 3.3, Baso % (Auto) 0.4, Absolute Neuts (auto) 4.8, Absolute Lymphs (auto) 1.64, Nucleated RBC % 0, Sodium 145, Potassium 3.9, Chloride 117 H, Carbon Dioxide 25.0, Anion Gap 3 L, BUN 17, Creatinine 1.40 H, Estim Creat Clear Calc 46.96, Est GFR (MDRD) Af Amer 63, Est GFR (MDRD) Non-Af 52 L, BUN/Creatinine Ratio 12.1, Glucose 79, Calcium 8.6, B-Natriuretic Peptide 25.2 Imaging Radiology Impression Chest X-Ray 12/01/23 01:00 IMPRESSION: No acute findings in the chest. Electronically Signed: Benjamin Mejia MD at 2:06 EST , Active Medications Active Medications Active Medications: Current Medications Generic Name Dose Route Start Last Admin Trade Name Freq PRN Reason Stop Dose Admin Acetaminophen 650 mg 11/29/23 18:44 Acetaminophen 325 Mg Tablet PO Q6H PRN PRN Pain 1-10 Or Fever >100.7 Amlodipine Besylate 10 mg 11/30/23 10:00 11/30/23 08:48 Amlodipine 10 Mg Tablet PO 10 mg DAILY LESLY Administration Protocol Aspirin 81 mg 11/30/23 10:00 11/30/23 08:47 Aspirin E.C. 81 Mg Tablet PO 81 mg DAILY LESLY Administration Atorvastatin Calcium 20 mg 11/29/23 22:00 11/30/23 20:28 Atorvastatin Calcium 20 Mg Tablet PO Not Given QHS LESLY Heparin Sodium (Porcine) 5,000 unit 11/29/23 22:00 11/30/23 20:27 Heparin Injection (Vial) 5,000 Unit/Ml Vial SC 5,000 unit Q12 LESLY Administration Sodium Chloride 250 mls @ 15 mls/hr 11/29/23 18:53 IV .[id number] PRN Additional IVPB Infusion Sodium Chloride 250 mls @ 15 mls/hr 11/29/23 18:53 IV .[id number] PRN Saline Flush Sodium Chloride 1,000 mls @ 100 mls/hr 12/01/23 07:35 12/01/23 09:12 IV 12/02/23 03:34 100 mls/hr .Q10H LESLY Administration Lisinopril 20 mg 11/29/23 22:00 11/30/23 08:47 Lisinopril 20 Mg Tablet PO 20 mg BID LESLY Administration Protocol Ondansetron HCl 4 mg 11/29/23 18:44 Ondansetron 4 Mg/2 Ml Vial IV Q8H PRN PRN NAUSEA/VOMITING Pantoprazole Sodium 40 mg 11/29/23 18:44 11/30/23 08:47 Pantoprazole Sodium 40 Mg Tablet PO 40 mg DAILY PRN Administration GERD Sodium Chloride 10 - 40 ml 11/29/23 18:53 0.9% Saline Lock 10 Ml Syringe IV UD PRN SALINE FLUSH
[2023-12-01] MEDS: Heparin Injection (Vial) 5,000 UNIT/ML VIAL 5000 UNIT SC ×2 (10:55→21:10)
[2023-12-01] MEDS: Aspirin E.C. 81 MG Tablet PO (10:56)
[2023-12-01 15:20] VITALS: BP 184/64; PULSE 66; RESP 18; TEMP 36.6; O2SAT 96
[2023-12-01 21:20] VITALS: BP 152/54; PULSE 56; RESP 18; TEMP 36.5; O2SAT 96
[2023-12-01 23:20] VITALS: BP 156/60; PULSE 54; RESP 18; TEMP 36.8; O2SAT 97
[2023-12-02] MEDS: Acetaminophen 650 MG Suppository RC (01:05)
[2023-12-02 02:23] VITALS: BP 141/56; PULSE 52; RESP 18; TEMP 36.6; O2SAT 94
[2023-12-02 04:38] VITALS: BP 158/60; PULSE 52; RESP 18; TEMP 36.3; O2SAT 96
[2023-12-02 06:30] VITALS: BP 159/54; PULSE 54; RESP 18; TEMP 36.3; O2SAT 95
[2023-12-02 06:36] LABS: Absolute Lymphocyte Count 1.46 X10^3/uL (0.83-4.51); Absolute Neutrophil Count 3.9 X10^3/uL (2.0-7.7); Basophil# 0.04 X10^3/uL; Basophil% 0.6 % (0-1); Eosinophil# 0.23 X10^3/uL; Eosinophils% 3.7 % (0-5); Hematocrit 26.7 % (40-54); Hemoglobin 8.4 g/dL (13.0-16.5); Lymphocyte # 1.46 X10^3/ul (0.83-4.51); Lymphocyte % 23.7 % (19-41); Mean Corp Hgb Conc 31.5 g/dL (32-36); Mean Corpuscular Hgb 30.3 pg (27.0-32.0); Mean Corpuscular Volume 96.4 fL (80-94); Mean Platelet Vol. 10.3 fl (6.2-12.0); Monocyte# 0.52 X10^3/uL; Monocyte% 8.4 % (0-10); NRBC Flagged by Analyzer 0 % (0-5); Neutrophil # 3.88 X10^3/uL (2.7-7.7); Neutrophil % 63.1 % (47-70); Platelet Count 179 K/mm3 (150-450); RBC Distribution Width CV 14.5 % (11.6-14.6); RBC Distribution Width SD 50.8 fl (35.1-43.9); Red Blood Count 2.77 M/mm3 (4.6-6.2); White Blood Count 6.2 K/mm3 (4.4-11.0)
[2023-12-02 06:58] LABS: Anion Gap 3 (5-15); BUN 15 mg/dL (7-18); BUN/Creat Ratio 15.8 RATIO (10-20); Calcium,Total 8.9 mg/dL (8.5-10.1); Chloride 116 mmol/L (98-107); Creatinine, Serum 0.95 mg/dL (0.70-1.30); EST Glomerular Filtration Rate 82 mL/min (>60); Est Glom Filt Rate - Afr Amer 99 mL/min (>60); Glucose 82 mg/dL (74-106); Sodium Level 143 mmol/L (136-145)
[2023-12-02 07:33] VITALS: O2SAT 95
[2023-12-02 08:30] VITALS: BP 160/91; PULSE 61; RESP 18; TEMP 37.2; O2SAT 93
[2023-12-02] MEDS: Heparin Injection (Vial) 5,000 UNIT/ML VIAL 5000 UNIT SC ×2 (08:47→20:05)
--- NOTE | 2023-12-02 11:03 | PCM.PROGNOTE ---
Subjective Subjective Patient seen and examined. He had no active complaints. He was resting and would yell out in response to questions. Unable to do comprehensive review of systems. He has remained hemodynamically stable though BP is a bit elevated today. Objective Data Objective Data Vital Signs: Vital Signs Temp Pulse Resp BP Pulse Ox O2 Del Method O2 Flow Rate 98.9 F 61 18 160/91 H 93 Room Air 2 12/02/23 08:30 12/02/23 08:30 12/02/23 08:30 12/02/23 08:30 12/02/23 08:30 12/02/23 08:30 12/01/23 00:45 Oxygen Flow Rate (L/min) 2 Oxygen Delivery Method Room Air Weight: 200 lb 2.876 oz Body Mass Index (BMI) 26.5 Intake & Output: Intake and Output for Last 24 Hours 11/30/23 12/01/23 12/02/23 23:59 23:59 23:59 Intake Total 2290 / 2290 961.33 / 961.33 0 / 0 Output Total 800 / 800 850 / 1050 300 / 300 Balance 1490 / 1490 111.33 / -88.67 -300 / -300 Lab / Micro Data 12/02/23 05:45 12/02/23 05:45 Labs: Laboratory Results - last 24 hr 12/02/23 05:45: WBC 6.2, RBC 2.77 L, Hgb 8.4 L, Hct 26.7 L, MCV 96.4 H, MCH 30.3, MCHC 31.5 L, RDW Std Deviation 50.8 H, RDW Coeff of Sophie 14.5, Plt Count 179, MPV 10.3, Immature Gran % (Auto) 0.500, Neut % (Auto) 63.1, Lymph % (Auto) 23.7, [place] % (Auto) 8.4, Eos % (Auto) 3.7, Baso % (Auto) 0.6, Absolute Neuts (auto) 3.9, Absolute Lymphs (auto) 1.46, Nucleated RBC % 0, Sodium 143, Potassium 4.0, Chloride 116 H, Carbon Dioxide 24.0, Anion Gap 3 L, BUN 15, Creatinine 0.95, Estim Creat Clear Calc 69.20, Est GFR (MDRD) Af Amer 99, Est GFR (MDRD) Non-Af 82, BUN/Creatinine Ratio 15.8, Glucose 82, Calcium 8.9 Physical Exam Const alert and no apparent distress Constitutional Narrative: Patient is alert, he can answer some simple questions appropriately General Appearance: cooperative and well developed Orientation / Consciousness: awake HEENT normocephalic, head/scalp atraumatic, hearing grossly normal bilaterally and moist oral mucous membranes Eyes PERRL, EOMs intact bilaterally and conjunctivae normal Neck no lymphadenopathy, supple, no JVD, thyroid normal and no carotid bruits General: trachea midline Lymph Lymphatic: no lymphadenopathy noted and no lymphedema noted Resp normal respiratory effort, no retractions, no use of accessory muscles and clear to auscultation bilaterally Resp Narrative: Diminished breath sounds bibasilarly. No wheezes or crackles. On room air. Auscultation: Negative for rales, rhonchi or wheezes Cardio regular rate, regular rhythm, S1 normal heart sound, S2 normal heart sound, no murmurs, no rub and no gallops Peripheral Pulses: pulses 2+ throughout GI normal to inspection, nondistended, normoactive bowel sounds, soft to palpation, non-tender and non-distended Extremity normal capillary refill, no clubbing, cyanosis or edema and no calf tenderness General Extremity: no tenderness to palpation of joints or extremities Skin no rashes or lesions noted General Skin Exam: no breakdown Neuro CN's II-XII intact bilaterally Neuro Narrative: Alert, able to communicate when he wants to. Moves all extremities spontaneously. Sensorium / Orientation: awake Motor Exam: general weakness Psych Psych Narrative: Patient exhibits confusion Mood & Affect: flat affect Assessment & Plan Assessment/Plan (1) Acute alteration in mental status: (2) Bradycardia: PLAN: Plan #Acute episodic encephalopathy MRI of the brain was negative for any evidence of any acute intracranial pathology. EEG pending. He did have another such episode today and he was noted to be hypotensive then so concern is that orthostatic hypotension may be contributing to this. he is alert and communicative in between these episodes PT/OT on board seizure precautions hold all sedative meds fall precautions In light of patient's family saying that he was to be evaluated for Parkinson like symptoms and him having previously been on Sinemet, and with his recent history of falls and this concern for seizure and hypotension, it does bring to mind multisystem atrophy in the setting of parkinsonism. He will need to see a neurologist to be evaluated for this. Resume BP meds EEG showed no evidence of seizure. Neurology reviewed him and thinks he has cardiogenic syncope. Patient had 2D echo during recent admission. Cardiology consulted per neurology recommendation. #Debility and weakness: PT.OT on board. Fall precautions # History of bradycardia: Was recently in the hospital and was bradycardic. This was episodic and did not improve. Cardiology reviewed patient and recommended conservative treatment. TSH was within normal limits and 2D echo showed EF of 65%. cardiology consulted due to concerns for cardiogenic syncope DVT prophylaxis: SCDs. Disposition: For DC back to long term facility when medically stable. Charges/Coding Visit Charges Inpatient E&M: 98264 Subs Hosp L2
--- NOTE | 2023-12-02 11:40 | PCM.CONS.C ---
Assessment & Plan Assessment/Plan (1) Bradycardia: PLAN: Patient's mental status changes seem to be unrelated to his bradycardia. He does not have any significant long pauses etc. At this time he does not seem to have an indication for permanent pacemaker. Continue daily monitoring at this time. HPI Consult Data Date of Consult: 12/02/23 HPI Narrative Reason for Consultation: Bradycardia HPI Narrative: KERRY VALDES, is a 78 M who presents after an episode of unresponsiveness. He was in the hospital for the last several days with altered mental status. He was seen by me at that time for bradycardia. It did not appear that the bradycardia was causing any symptoms. Patient had significant altered mental status and was barely arousable and unable to give a history even when his heart rate was in the 50s to 60s. Prior to that his heart rate has been documented to be higher than 60 bpm and he was still having significant altered mental status. Today he was difficult to arouse but when he was aroused he just made groaning noises and did not follow commands. His heart rate was in the high 50s at that time. [facility] Medical History Acute respiratory failure with hypoxia Altered mental status Anemia Anemia Anemia Anxiety Atherosclerotic heart disease of [place] coronary artery without angina pectoris Atrial fibrillation Back pain Chest pain CHF (congestive heart failure) CHI (closed head injury) Congestive heart failure (CHF) COPD exacerbation Coronary artery disease Degenerative disc disease, lumbar Degenerative disk disease Delirium Diabetes Essential hypertension Former smoker GERD (gastroesophageal reflux disease) Hallucinations HLD (hyperlipidemia) Hypertension Hypertensive urgency Hypoxia Lower extremity edema Macrocytic anemia On home oxygen therapy Orthostatic hypotension Parkinson's disease Presence of stent in coronary artery (~05/12/21) Short-term memory loss Syncope Vertigo Home Medications pantoprazole 40 mg tablet,delayed release 40 mg PO DAILY PRN GERD 10/25/21 [History Last Taken Unknown] amlodipine 10 mg tablet 10 mg PO DAILY 03/26/23 [History Last Taken Unknown] aspirin 81 mg tablet,delayed release (Bertin Low Dose Aspirin) 81 mg PO DAILY [facility]ART [facility]ALTH 08/16/23 [History Last Taken Unknown] atorvastatin 20 mg tablet 20 mg PO QHS #90 tabs 08/16/23 [Rx Last Taken Unknown] lisinopril 10 mg tablet 20 mg PO BID 08/16/23 [History Last Taken Unknown] albuterol sulfate 90 mcg/actuation aerosol inhaler 1 inh inhalation Q6H PRN shortness of breath or wheezing #6.7 grams 10/02/23 [Rx Last Taken Unknown] Allergy/AdvReac Type Severity Reaction Status Date / Time No Known Allergies Allergy Verified 11/29/23 17:45 Surgical History History of coronary artery stent placement Presence of coronary angioplasty implant and graft (~05/12/21) Social History (Updated 11/29/23 @ 18:52 by Akilah Forrester) household members: spouse housing: [facility] Smoking Status: Former smoker alcohol intake: never substance use type: does not use Physical Exam Const Constitutional Narrative: Unable to give a history. Barely arousable. Does not follow commands. HEENT normocephalic Risk Stratification Risk Stratification Applicable: No Charges/Coding Visit Charges Inpatient E&M: 61426 Init Hosp L1 Objective Data Vital Signs: Vital Signs Temp Pulse Resp BP Pulse Ox O2 Del Method O2 Flow Rate 98.9 F 61 18 160/91 H 93 Room Air 2 12/02/23 08:30 12/02/23 08:30 12/02/23 08:30 12/02/23 08:30 12/02/23 08:30 12/02/23 08:30 12/01/23 00:45 Oxygen Flow Rate (L/min) 2 Oxygen Delivery Method Room Air Weight: 200 lb 2.876 oz Body Mass Index (BMI) 26.5 Intake & Output: Intake and Output for Last 24 Hours 11/30/23 12/01/23 12/02/23 23:59 23:59 23:59 Intake Total 2290 / 2290 961.33 / 961.33 0 / 0 Output Total 800 / 800 850 / 1050 300 / 300 Balance 1490 / 1490 111.33 / -88.67 -300 / -300 Lab / Micro Data 12/02/23 05:45 12/02/23 05:45 Labs: Laboratory Results - last 24 hr 12/02/23 05:45: WBC 6.2, RBC 2.77 L, Hgb 8.4 L, Hct 26.7 L, MCV 96.4 H, MCH 30.3, MCHC 31.5 L, RDW Std Deviation 50.8 H, RDW Coeff of Sophie 14.5, Plt Count 179, MPV 10.3, Immature Gran % (Auto) 0.500, Neut % (Auto) 63.1, Lymph % (Auto) 23.7, [place] % (Auto) 8.4, Eos % (Auto) 3.7, Baso % (Auto) 0.6, Absolute Neuts (auto) 3.9, Absolute Lymphs (auto) 1.46, Nucleated RBC % 0, Sodium 143, Potassium 4.0, Chloride 116 H, Carbon Dioxide 24.0, Anion Gap 3 L, BUN 15, Creatinine 0.95, Estim Creat Clear Calc 69.20, Est GFR (MDRD) Af Amer 99, Est GFR (MDRD) Non-Af 82, BUN/Creatinine Ratio 15.8, Glucose 82, Calcium 8.9 Cardiology Labs/Tests 12/02/23 05:45: WBC 6.2, RBC 2.77 L, Hgb 8.4 L, Hct 26.7 L, MCV 96.4 H, MCH 30.3, MCHC 31.5 L, Plt Count 179, MPV 10.3, Immature Gran % (Auto) 0.500, Neut % (Auto) 63.1, Lymph % (Auto) 23.7, [place] % (Auto) 8.4, Eos % (Auto) 3.7, Baso % (Auto) 0.6, Absolute Neuts (auto) 3.9, Nucleated RBC % 0, Sodium 143, Potassium 4.0, Chloride 116 H, Carbon Dioxide 24.0, Anion Gap 3 L, BUN 15, Creatinine 0.95, Est GFR (MDRD) Af Amer 99, Est GFR (MDRD) Non-Af 82, BUN/Creatinine Ratio 15.8, Glucose 82, Calcium 8.9 Rhythm: EKG: ECHO: Stress Test: Cardiac Cath: PCI: CT Surgery: Holter monitor: EPS: PPM: CXR: Chest CT Scan:
[2023-12-02 20:04] VITALS: BP 156/61; PULSE 61; RESP 17; TEMP 36.2; O2SAT 96
[2023-12-02] MEDS: Atorvastatin Calcium 20 MG Tablet PO (20:05)
[2023-12-03 02:26] VITALS: BP 165/59; PULSE 56; RESP 17; TEMP 36.1; O2SAT 96
[2023-12-03 06:59] LABS: Absolute Lymphocyte Count 1.01 X10^3/uL (0.83-4.51); Absolute Neutrophil Count 3.6 X10^3/uL (2.0-7.7); Basophil# 0.03 X10^3/uL; Basophil% 0.6 % (0-1); Eosinophil# 0.25 X10^3/uL; Eosinophils% 4.6 % (0-5); Hematocrit 27.8 % (40-54); Hemoglobin 8.8 g/dL (13.0-16.5); Lymphocyte # 1.01 X10^3/ul (0.83-4.51); Lymphocyte % 18.6 % (19-41); Mean Corp Hgb Conc 31.7 g/dL (32-36); Mean Corpuscular Hgb 30.1 pg (27.0-32.0); Mean Corpuscular Volume 95.2 fL (80-94); Mean Platelet Vol. 9.4 fl (6.2-12.0); Monocyte% 9.2 % (0-10); NRBC Flagged by Analyzer 0 % (0-5); Neutrophil # 3.61 X10^3/uL (2.7-7.7); Neutrophil % 66.6 % (47-70); Platelet Count 181 K/mm3 (150-450); RBC Distribution Width CV 14.3 % (11.6-14.6); Red Blood Count 2.92 M/mm3 (4.6-6.2); White Blood Count 5.4 K/mm3 (4.4-11.0)
[2023-12-03 07:28] VITALS: O2SAT 96
[2023-12-03 07:28] LABS: Anion Gap 3 (5-15); BUN 14 mg/dL (7-18); BUN/Creat Ratio 16.7 RATIO (10-20); Calcium,Total 9.3 mg/dL (8.5-10.1); Chloride 114 mmol/L (98-107); Creatinine, Serum 0.84 mg/dL (0.70-1.30); EST Glomerular Filtration Rate 94 mL/min (>60); Est Glom Filt Rate - Afr Amer 114 mL/min (>60); Estimated Creatinine Clearance 78.27 ml/min; Glucose 86 mg/dL (74-106); Potassium 3.7 mmol/L (3.5-5.1); Sodium Level 144 mmol/L (136-145)
[2023-12-03 08:59] VITALS: BP 121/54; PULSE 55; RESP 16; TEMP 35.8; O2SAT 98
[2023-12-03] MEDS: Aspirin E.C. 81 MG Tablet PO (09:02)
[2023-12-03] MEDS: Heparin Injection (Vial) 5,000 UNIT/ML VIAL 5000 UNIT SC (09:02)
[2023-12-03] MEDS: amLODIPine 10 MG Tablet PO (09:02)
--- NOTE | 2023-12-03 09:16 | CASEMGMT ---
Discharge Planning Updates sent to [facility] via [employer]. Requested precert be started. Lillian Hollis, Discharge Planning Asst.
--- NOTE | 2023-12-03 10:22 | PCM.PN.HOSP ---
Reason for Visit Reason for Visit: Diagnoses Bradycardia, unspecified (11/29/23) Altered mental status, unspecified (11/29/23) Subjective Subjective Patient is a 78-year-old gentleman admitted with altered mental status concerning for possible seizure Objective Data Objective Data Vital Signs: Vital Signs Temp Pulse Resp BP Pulse Ox O2 Del Method O2 Flow Rate 96.4 F L 55 L 16 121/54 H 98 Room Air 2 12/03/23 08:59 12/03/23 08:59 12/03/23 08:59 12/03/23 08:59 12/03/23 08:59 12/03/23 08:59 12/01/23 00:45 Oxygen Flow Rate (L/min) 2 Oxygen Delivery Method Room Air Weight: 90.8 kg Body Mass Index (BMI) 26.5 Intake & Output: Intake and Output for Last 24 Hours 12/01/23 12/02/23 12/03/23 23:59 23:59 23:59 Intake Total 961.33 / 961.33 300 / 300 Output Total 850 / 1050 850 / 850 200 / 200 Balance 111.33 / -88.67 -550 / -550 -200 / -200 Lab / Micro Data 12/03/23 06:45 12/03/23 06:45 Labs: Laboratory Results - last 24 hr 12/03/23 06:45: WBC 5.4, RBC 2.92 L, Hgb 8.8 L, Hct 27.8 L, MCV 95.2 H, MCH 30.1, MCHC 31.7 L, RDW Std Deviation 50.0 H, RDW Coeff of Sophie 14.3, Plt Count 181, MPV 9.4, Immature Gran % (Auto) 0.400, Neut % (Auto) 66.6, Lymph % (Auto) 18.6 L, [place] % (Auto) 9.2, Eos % (Auto) 4.6, Baso % (Auto) 0.6, Absolute Neuts (auto) 3.6, Absolute Lymphs (auto) 1.01, Nucleated RBC % 0, Sodium 144, Potassium 3.7, Chloride 114 H, Carbon Dioxide 27.0, Anion Gap 3 L, BUN 14, Creatinine 0.84, Estim Creat Clear Calc 78.27, Est GFR (MDRD) Af Amer 114, Est GFR (MDRD) Non-Af 94, BUN/Creatinine Ratio 16.7, Glucose 86, Calcium 9.3 Physical Exam Narrative GENERAL: cooperative HEENT: Atraumatic; normocephalic EYES; Anicteric, Normal Conjunctiva NECK; supple, normal thyroid, RESPIRATORY: Diminished to auscultation CARDIOVASCULAR: Regular S1 S2, GI: soft, normoactive bowel sounds, : No Renal angle tenderness; EXTREMITIES: No edema, no clubbing, MUSCULOSKELETAL: no muscle wasting NEURO: Awake; no lateralizing signs. SKIN: No Rash PSYCH; Flat affect Assessment & Plan Assessment/Plan (1) Acute alteration in mental status: (2) Bradycardia: PLAN: Plan Patient is a 78-year-old gentleman admitted with altered mental status concerning for possible seizure 1. Acute encephalopathy ? Suspected seizure. EEG however did not demonstrate any evidence of seizure activity MRI of the brain unremarkable 2. Bradycardia ? Monitored continuously on telemetry seen in consultation by cardiology 3. Dyslipidemia -Patient is on statin therapy, continued at home dose 4. Hypertension - Blood pressure controlled, home medications continued with dose adjustment as needed 5. GERD ? On PPI 6. Physical deconditioning - Requested for PT OT eval and director of social media marketing to assist with discharge planning 7. DVT prophylaxis ? SCDs Charges/Coding Visit Charges Inpatient E&M: 89765 Subs Hosp L2
--- NOTE | 2023-12-03 13:27 | CASEMGMT ---
Discharge Planning [facility] has obtain auth. SW updated. Lillian Hollis, Discharge Planning Asst.
--- NOTE | 2023-12-03 13:31 | TREXTCAR_ITS ---
Diet Diet Order/Speech Therapy: 11/29/23 18:44 Diet: Regular - General Food consistency:: Pureed Liquid Consistency:: Regular/Thin Is pt able to select menu?: No Diet Comments: Direct sup, FOOD/DRINK ONLY IF FULLY ALERT, meds crushed Routine Orders/Code Status Code Status: Full Code Therapies Physical Therapy: Eval and Treat Occupational Therapy: Eval and Treat Problem/Diagnosis (1) Acute alteration in mental status: Status: Acute Code(s): R41.82 - Altered mental status, unspecified (2) Bradycardia: Status: Acute Code(s): R00.1 - Bradycardia, unspecified Plan Patient is a 78-year-old gentleman admitted with altered mental status concerning for possible seizure 1. Acute encephalopathy ? Suspected seizure. EEG however did not demonstrate any evidence of seizure activity MRI of the brain unremarkable 2. Bradycardia ? Monitored continuously on telemetry seen in consultation by cardiology 3. Dyslipidemia -Patient is on statin therapy, continued at home dose 4. Hypertension - Blood pressure controlled, home medications continued with dose adjustment as needed 5. GERD ? On PPI 6. Physical deconditioning - Requested for PT OT eval and psychotherapist social worker to assist with discharge planning 7. DVT prophylaxis ? SCDs Allergies/Procedures Done in Hospital Allergies No Known Allergies Allergy (Verified 11/29/23 17:45) Type of Care/Length of Stay Estimated LOS: More Than 30 Days Type of Care Needed: Skilled Rehab Potential: Fair Prognosis: Fair Additional Orders/Day of Discharge Day of Discharge: 12/03/23 Discharge Plan Admission Admit Date/Time: 11/29/23 18:24 Attending Provider: Marcelo Boyd Primary Care Provider: Jasson England Consulting Providers: Krystal Jett; Kristen England; Colleen Astorga; Osvaldo Garcia; Mckayla Perdomo; CRISTIANA PRINCE; Ana Maria Malave; Alix Roman; Jamir Burger; Janina Lundberg; Lon Avendano; Casimiro Hughes; Sharon Calle; Oziel Rome Discharge Orders/Prescriptions Prescriptions: Continued atorvastatin 20 mg tablet 20 mg PO QHS Qty: 90 3RF aspirin [Bertin Low Dose Aspirin] 81 mg tablet,delayed release (DR/EC) 81 mg PO DAILY pantoprazole 40 mg tablet,delayed release (DR/EC) 40 mg PO DAILY PRN (Reason: GERD) albuterol sulfate 90 mcg/actuation HFA aerosol inhaler 1 inh inhalation Q6H PRN (Reason: shortness of breath or wheezing) Qty: 6.7 0RF amlodipine 10 mg tablet 10 mg PO DAILY lisinopril 10 mg tablet 20 mg PO BID Referrals / Follow Up: Jasson England MD [Primary Care Provider] - Disposition Disposition (needs filled in before D/C Order can be placed): [facility]
--- NOTE | 2023-12-03 13:39 | DS.PCM_ITS ---
Providers Date of Admission: 11/29/23 Date of Discharge: 12/03/23 Primary Care Physician: Dr. Jasson England MD Consultations 12/02/23 10:18 Consult: Cardiology Routine Consulting Provider: Casimiro Hughes Reason for Consult: syncope, suspect cardiac etiology EMERGENT Consult: No MD Notified: Yes Date Notified: 12/02/23 Time Notified: 10:18 Method of Notification: Text Reason For Visit: POSSIBLE SEIZURE, CHANGE IN MENTAL STATUS, SYNCOPE Diagnosis Discharge Diagnosis (1) Acute alteration in mental status: Status: Acute Code(s): R41.82 - Altered mental status, unspecified (2) Bradycardia: Status: Acute Code(s): R00.1 - Bradycardia, unspecified Plan Patient is a 78-year-old gentleman admitted with altered mental status concerning for possible seizure 1. Acute encephalopathy ? Suspected seizure. EEG however did not demonstrate any evidence of seizure a ctivity MRI of the brain unremarkable 2. Bradycardia ? Monitored continuously on telemetry seen in consultation by cardiology 3. Dyslipidemia -Patient is on statin therapy, continued at home dose 4. Hypertension - Blood pressure controlled, home medications continued with dose adjustment as needed 5. GERD ? On PPI 6. Physical deconditioning - Requested for PT OT eval and clinical social work therapist to assist with discharge planning 7. DVT prophylaxis ? SCDs Medications at Discharge Home Medications pantoprazole 40 mg tablet,delayed release 40 mg PO DAILY PRN GERD 10/25/21 amlodipine 10 mg tablet 10 mg PO DAILY 03/26/23 aspirin 81 mg tablet,delayed release (Bertin Low Dose Aspirin) 81 mg PO DAILY [facility] 08/16/23 atorvastatin 20 mg tablet 20 mg PO QHS #90 tabs 08/16/23 lisinopril 10 mg tablet 20 mg PO BID 08/16/23 albuterol sulfate 90 mcg/actuation aerosol inhaler 1 inh inhalation Q6H PRN shortness of breath or wheezing #6.7 grams 10/02/23 Hospital Course Summary of Care Provided Minutes Spent on Discharge: 35 Physical Exam Narrative GENERAL: cooperative HEENT: Atraumatic; normocephalic EYES; Anicteric, Normal Conjunctiva NECK; supple, normal thyroid, RESPIRATORY: Diminished to auscultation CARDIOVASCULAR: Regular S1 S2, GI: soft, normoactive bowel sounds, : No Renal angle tenderness; EXTREMITIES: No edema, no clubbing, MUSCULOSKELETAL: no muscle wasting NEURO: Awake; no lateralizing signs. SKIN: No Rash PSYCH; Flat affect Weight / BMI Weight Weight: 90.8 kg Body Mass Index (BMI) 26.5 ABG / Lab / Microbiology Data 12/03/23 06:45 12/03/23 06:45 Laboratory: Laboratory Results - last 24 hr 12/03/23 06:45: WBC 5.4, RBC 2.92 L, Hgb 8.8 L, Hct 27.8 L, MCV 95.2 H, MCH 30.1, MCHC 31.7 L, RDW Std Deviation 50.0 H, RDW Coeff of Sophie 14.3, Plt Count 181, MPV 9.4, Immature Gran % (Auto) 0.400, Neut % (Auto) 66.6, Lymph % (Auto) 18.6 L, [place] % (Auto) 9.2, Eos % (Auto) 4.6, Baso % (Auto) 0.6, Absolute Neuts (auto) 3.6, Absolute Lymphs (auto) 1.01, Nucleated RBC % 0, Sodium 144, Potassium 3.7, Chloride 114 H, Carbon Dioxide 27.0, Anion Gap 3 L, BUN 14, Creatinine 0.84, Estim Creat Clear Calc 78.27, Est GFR (MDRD) Af Amer 114, Est GFR (MDRD) Non-Af 94, BUN/Creatinine Ratio 16.7, Glucose 86, Calcium 9.3 D/C Instructions Discharge Diet: No restrictions Discharge Activity: Return to Normal Activity Call your doctor if you observe: Fever of 101 or Higher, Shortness of breath, Fainting spells and Chest pain Meaningful Use Info Meaningful Use Diagnoses (Choose all that apply): None applicable Discharge Plan Admission Admit Date/Time: 11/29/23 18:24 Attending Provider: Marcelo Boyd Primary Care Provider: Jasson England Consulting Providers: Krystal Jett; Kristen England; Colleen Astorga; Osvaldo Garcia; Mckayla Perdomo; CRISTIANA PRINCE; Ana Maria Malave; Alix Roman; Jamir Burger; Janina Lundberg; Lon Avendano; Casimiro Hughes; Sharon Calle; Oziel Gonzalez Discharge Orders/Prescriptions Prescriptions: Continued atorvastatin 20 mg tablet 20 mg PO QHS Qty: 90 3RF aspirin [Bertin Low Dose Aspirin] 81 mg tablet,delayed release (DR/EC) 81 mg PO DAILY pantoprazole 40 mg tablet,delayed release (DR/EC) 40 mg PO DAILY PRN (Reason: GERD) albuterol sulfate 90 mcg/actuation HFA aerosol inhaler 1 inh inhalation Q6H PRN (Reason: shortness of breath or wheezing) Qty: 6.7 0RF amlodipine 10 mg tablet 10 mg PO DAILY lisinopril 10 mg tablet 20 mg PO BID Referrals / Follow Up: Jasson England MD [Primary Care Provider] - Disposition Disposition (needs filled in before D/C Order can be placed): [facility] Charges/Coding Visit Charges Inpatient E&M: 51489 Disch Hosp >30min
[2023-12-03 14:38] VITALS: BP 122/56; PULSE 52; RESP 18; TEMP 36.1; O2SAT 96
--- NOTE | 2023-12-03 14:55 | CASEMGMT ---
Discharge Planning Discharge orders, signed med list, covid results, and transport time sent to [facility] via [facility]. Physicians will transport patient by cot at 3p. Nursing, SW, patient, and his daughter (Urban) updated. Lillian Hollis, Discharge Planning Asst.
== END 2023-12-03 15:16 | disposition skilled nursing facility (03) | DRG 100 ==
LOC: ED 17:37 → PCU 18:43
PROVIDERS: Internal Medicine; Student in an Organized Health Care Education/Training Program; Admitting Provider Internal Medicine; Emergency Provider Student in an Organized Health Care Education/Training Program; PCP Family Medicine; Visit Provider Internal Medicine
DX: R56.9 Unspecified convulsions (principal); G93.41 Metabolic encephalopathy; I11.0 Hypertensive heart disease with heart failure; I50.9 Heart failure, unspecified; G20.A1 Parkinson's disease without dyskinesia, without mention of fluctuations; E11.9 Type 2 diabetes mellitus without complications; J44.9 Chronic obstructive pulmonary disease, unspecified; E78.5 Hyperlipidemia, unspecified; I25.10 Atherosclerotic heart disease of native coronary artery without angina pectoris; I95.1 Orthostatic hypotension; R00.1 Bradycardia, unspecified; K21.9 Gastro-esophageal reflux disease without esophagitis; R41.82 Altered mental status, unspecified; R53.81 Other malaise; Z79.899 Other long term (current) drug therapy; Z79.82 Long term (current) use of aspirin; Z95.5 Presence of coronary angioplasty implant and graft; Z87.891 Personal history of nicotine dependence; Z91.81 History of falling
CPT/HCPCS: 36415; 70450; 70496; 70498; 70551; 71045; 80048; 82962; 83880; 84484; 85025; 85610; 85730; 87811; 92610; 93005; 95819; 97110; 97162; 97166; 97530; 97535; 99285; J7030; J7040; Q9967; 90662; A4216

== ENCOUNTER 2024-02-06 08:21 | Inpatient (IN) | payer MEDICARE, SELFPAY ==
[2024-02-06] VITALS (9 sets, daily range): BP systolic 146–184; BP diastolic 62–98; PULSE 41–54; RESP 12–24; TEMP 36.1–36.7; O2SAT 94–100; BMI 28.7; BMI 29.5
--- NOTE | 2024-02-06 08:33 | RAD_ITS ---
STUDY: X-RAY - PELVIS AND RIGHT HIP REASON FOR EXAM: Male, 78 years old. Fall and pain TECHNIQUE: 3 views of the pelvis and hip. COMPARISON: Comparison is made with prior study dated November 19, 2023. FINDINGS: There is a non-specific bowel gas pattern. There are multiple calcified phleboliths. There are atherosclerotic vascular calcifications. Normal bilateral iliac wings, sacroiliac joints and visualized sacrum. Normal bilateral superior and inferior pubic rami. Normal pubic symphysis. Normal bilateral ischial tuberosities. Normal visualized femoral head. Normal acetabulum. There is mild articular joint space narrowing of the hip. RAD/HIP, UNI W/ Pelvis 2-3 Views IMPRESSION: No fracture is seen. Mild degree of the right hip joint narrowing. Electronically Signed: Bhaskar Dyson MD at 9:29 EDT ,
--- NOTE | 2024-02-06 08:33 | CT_ITS ---
STUDY: CT BRAIN WITHOUT CONTRAST REASON FOR EXAM: Male, 78 years old. Dizziness RADIATION DOSAGE (If Supplied By Facility): CTDIvol = ( 44.99 ) mGy, DLP = ( 829.85 ) mGy TECHNIQUE: Transaxial CT imaging of the brain was performed without administration of intravenous contrast material. Individualized dose optimization techniques were used for this CT. COMPARISON: Comparison is made with prior study dated November 29, 2023. FINDINGS: Normal soft tissue structures. Normal calvarium. There is moderate cerebral atrophy with widening of the extra-axial spaces and ventricular dilatation. There are areas of decreased attenuation within the white matter tracts of the supratentorial brain, consistent with microvascular disease changes. Normal basal ganglia and thalami. Normal brainstem. Normal cerebellum. There is no intracranial hemorrhage. There are no findings of an acute ischemic infarction. Atherosclerotic plaque formation of the vertebral arteries and cavernous portions of the internal carotid arteries bilaterally. Normal visualized paranasal sinuses. CT/Brain/Head without Contrast IMPRESSION: Chronic involutional changes of the brain. Electronically Signed: Bhaskar Dyson MD at 9:36 EDT ,
--- NOTE | 2024-02-06 08:33 | RAD_ITS ---
STUDY: X-RAY CHEST REASON FOR EXAM: Male, 78 years old. Weakness TECHNIQUE: Single AP portable view of the chest. COMPARISON: Comparison is made with prior study dated December 01, 2023. FINDINGS: EKG electrodes are seen. There is hyperinflation of the lungs consistent with chronic obstructive lung disease (COPD). There is no demonstrated pleural abnormality. Normal size heart. Normal mediastinum and vandana. There is prominence of the pulmonary hilar arteries without peripheral pulmonary vascular congestion, suggesting pulmonary hypertension. There is atherosclerotic calcification of the aortic arch with tortuosity. Normal visualized thoracic spine. Normal visualized ribs, clavicles, and shoulders. There is no demonstrated abnormality of the visualized soft tissue structures of the upper abdomen. RAD/Chest 1 View (Portable) IMPRESSION: Hyperinflation. Prominence of the central pulmonary arteries bilaterally. Electronically Signed: Bhaskar Dyson MD at 9:37 EDT ,
--- NOTE | 2024-02-06 08:33 | EKG12_ITS ---
Test Reason : Blood Pressure : / mmHG Vent. Rate : 048 BPM Atrial Rate : 000 BPM P-R Int : 000 ms QRS Dur : 102 ms QT Int : 510 ms P-R-T Axes : 000 026 068 degrees QTc Int : 455 ms SINUS BRADYCARDIA Abnormal ECG Confirmed by RAHAT RUDD MD ([id number]), editorial specialist AMARIS CASTORENA ([id number]) on 02/07/2024 10:12:53 AM Referred By: Confirmed By:RAHAT RUDD MD
--- NOTE | 2024-02-06 08:36 | EX.ED.DYSGE1 ---
HPI History of Present Illness Chief Complaint: Dizziness Detail of Chief Complaint: Fell at home. Was found down by his sister. Brought in by squad. Informant: patient Onset/Context/Timing Onset: Today Current Severity: Moderate Maximum Severity: Moderate Narrative Narrative: 78-year-old male extensive past medical history of anemia, A-fib, diabetes and CHF. Recent hospitalization and then went to the hospital detention recently has been home. He lives alone at home. His sister does live in the home I believe beside his. Patient said he got up today he fell was unable to get himself up and his sister came to his house to check on him and found him down and called squad. Says he is having mild right hip pain from the fall. Does not know if he hit his head or not. He said before the fall he did not feel dizzy now he feels dizzy. Does not believe he is on any blood thinners. Denies nausea, vomiting, diarrhea or fever. Prior similar symptoms: Yes Recent Illness/Hospitalization: Yes PFSH PFS Medical History Acute alteration in mental status Acute respiratory failure with hypoxia Altered mental status Anemia Anemia Anemia Anxiety Atherosclerotic heart disease of [place] coronary artery without angina pectoris Atrial fibrillation Back pain Bradycardia Chest pain CHF (congestive heart failure) CHI (closed head injury) Congestive heart failure (CHF) COPD exacerbation Coronary artery disease Degenerative disc disease, lumbar Degenerative disk disease Delirium Diabetes Essential hypertension Fall Former smoker GERD (gastroesophageal reflux disease) Hallucinations HLD (hyperlipidemia) Hypertension Hypertensive urgency Hypoxia Lower extremity edema Macrocytic anemia On home oxygen therapy Orthostatic hypotension Parkinson's disease Presence of stent in coronary artery (~05/12/21) Short-term memory loss Syncope Vertigo Home Medications pantoprazole 40 mg tablet,delayed release 40 mg PO DAILY PRN GERD 10/25/21 [History Last Taken Unknown] amlodipine 10 mg tablet 10 mg PO DAILY BLOOD PRESSURE 03/26/23 [History Last Taken Unknown] aspirin 81 mg tablet,delayed release (Bertin Low Dose Aspirin) 81 mg PO DAILY HEART HEALTH 08/16/23 [History Last Taken Unknown] atorvastatin 20 mg tablet 20 mg PO QHS CHOLESTEROL #90 tabs 08/16/23 [Rx Last Taken Unknown] albuterol sulfate 90 mcg/actuation aerosol inhaler 1 inh inhalation Q6H PRN SHORTNESS OF BREATH/WHEEZING #6.7 grams 10/02/23 [Rx Last Taken Unknown] lisinopril 20 mg tablet 20 mg PO BID BLOOD PRESSURE 02/06/24 [History Last Taken Unknown] Allergy/AdvReac Type Severity Reaction Status Date / Time No Known Allergies Allergy Verified 01/24/24 11:18 Surgical History History of coronary artery stent placement Presence of coronary angioplasty implant and graft (~05/12/21) Social History household members: spouse housing: detention Smoking Status: Former smoker alcohol intake: never substance use type: does not use ROS ROS ED ROS Narrative Denies recent illness. Review of Systems ROS Unobtainable: Denies due to encephalopathy Constitutional Constitutional ED: Denies chills or fever(s) Eyes Eyes: Denies blurry vision ENT ENT ED: Denies ear pain Cardiovascular Cardiovascular: Denies chest pain or palpitations Respiratory/Chest Respiratory/Chest: Denies cough or dyspnea Gastrointestinal Gastrointestinal: Denies abdominal pain, diarrhea, nausea or vomiting Genitourinary Genitourinary ED: Denies dysuria or hematuria Musculoskeletal Musculoskeletal: Denies arthralgias or back pain Integumentary Denies abscess Neurologic Neurologic: Denies headache(s) Psychiatric Psychiatric: Denies anxiety Endocrine Endocrinology: Denies cold intolerance Hematologic/Lymphatic Hematologic/Lymphatic: Reports none Allergic/Immunologic Allergic/Immunologic ED: Denies mouth swelling or tongue swelling EXAM Physical Exam Narrative Exam Narrative: 78-year-old male sitting upright in bed. Vital signs stable afebrile. Bradycardic but he is getting good blood pressure with the. H EENT exam pupils round react to light. Dry mucous members. No signs of trauma to his face or scalp. No lacerations or bruising. No hematomas. Neck nontender. Trachea midline. Back nontender. No signs of trauma. Lungs scattered wheezes. Heart bradycardic rate of 50 no murmur. Chest wall and ribs nontender. Abdomen soft nontender. Pelvic girdle intact. Really does not have any shortening or rotation either hip. He complains of some mild right hip discomfort. But there is no obvious abnormality. Knees are nontender. Ankles are nontender. He is able to dorsi and plantarflexion. Neurologically he is awake. He is answering questions he is following commands.He does appear overall weak. Const Vital Signs: 02/06/24 08:21 02/06/24 08:42 Temperature 98 F Temperature Source Temporal Pulse Rate 48 L Respiratory Rate 14 Respiratory Pattern Normal Blood Pressure 181/68 H Blood Pressure Mean 105 Pulse Ox 96 Oxygen Delivery Method Room Air Positive well nourished and well developed; Negative for cachectic, contractures or unkempt General Appearance ED: well developed and NAD; Negative for unkempt, cachectic, contractures, cyanotic, diaphoretic or pallor Nutritional Appearance: Negative for cachectic HEENT Reports dry mucous membranes; Denies moist mucous membranes Negative for trauma or tenderness Mouth ED: Yes dry mucous membranes Mouth: dry mucous membranes Eyes PERRL and EOMs intact bilaterally General Eye ED: Negative for pale conjunctiva or scleral icterus Neck no lymphadenopathy, supple and no JVD General: Negative for tenderness Lymph Lymphatic: Negative for other Chest Wall inspection of chest normal and palpation of chest normal Chest: Negative for other Resp normal respiratory effort and No clear to auscultation bilaterally Auscultation: wheezes Cardio regular rhythm, S1 normal heart sound, S2 normal heart sound and no murmurs; Negative for regular rate Rate: bradycardia GI normal to inspection, nondistended, normoactive bowel sounds, non-tender, non-distended and no masses Inspection: Negative for abdominal distention Auscultation: normoactive bowel sounds Palpation: soft; Negative for tender, guarding or rebound tenderness present Back/Spine no CVA tenderness General Back: Negative for CVA tenderness Cervical Spine: Negative for cervical spine tenderness Thoracic Spine / Upper Back: Negative for thoracic spinal tenderness or paraspinal muscle tenderness Lumbar Spine / Lower Back: Negative for lumbar spinal tenderness Extremity normal to inspection Extremity Narrative: Trace edema. General Extremety ED: Yes edema General Extremity: edema Neuro oriented x3 and CN's II-XII intact bilaterally Sensorium / Orientation: alert; Negative for orientation impaired or lethargic Motor Exam: strength 5/5 throughout; Negative for general weakness or strength abnormal Psych mental status grossly normal Appearance: Negative for unkempt or other Attitude: No agitated Mood & Affect: Negative for depressed, anxious or tearful Skin no rashes or lesions noted and no wounds General Skin Exam: Negative for elasticity normal, jaundice or pallor Lesions: No lesion noted Rashes: No rashes noted Trauma: Negative for abrasion Wounds: Negative for wounds noted MDM MDM MDM Narrative Medical decision making narrative: 78-year-old male with a fall today at home in which she is unable to get up. Exam is benign. He is complaining of right hip pain I do not see an obvious fracture on exam but x-ray will be obtained. Along with screening labs. He does appear generally weak and will attempt ambulating. He may need to be admitted for failure to thrive and generalized weakness. On the repeat exam at 9:52 AM unchanged. Patient is too weak to ambulate. I will admit him for adult failure to thrive. I have the hospitalist on page. Patient states he is having a headache and be given some Tylenol. I rechecked his head there is no signs of trauma or tenderness. History & Record Review Discussion w/independent historian: Patient Additional record(s) reviewed:: Prior inpatient record, Prior outpatient record, Prior ED visit, Prior labs and No prior records Lab Data Attestation: I reviewed the patient's lab results. Lab results narrative: CBC shows a white count of 4.9. H&H 9.2 and 29 which is his baseline chronic anemia. Platelet count of 125. Electrolytes show a gap of 3. BUN 23 creatinine 1.1. Glucose 84. UA is normal. No white or red cells. No bacteria or nitrates. Labs: Laboratory Results - last 24 hr 02/06/24 02/06/24 08:45 08:56 WBC 4.9 RBC 3.00 L Hgb 9.2 L Hct 29.4 L MCV 98.0 H MCH 30.7 MCHC 31.3 L RDW Std Deviation 58.0 H RDW Coeff of Sophie 16.3 H Plt Count 125 L MPV 11.5 Immature Gran % (Auto) 0.400 Neut % (Auto) 63.1 Lymph % (Auto) 23.9 [place] % (Auto) 7.9 Eos % (Auto) 4.3 Baso % (Auto) 0.4 Absolute Neuts (auto) 3.1 Absolute Lymphs (auto) 1.18 Nucleated RBC % 0 Sodium 143 Potassium 3.7 Chloride 111 H Carbon Dioxide 29.0 Anion Gap 3 L BUN 23 H Creatinine 1.10 Estim Creat Clear Calc 65.44 Est GFR (MDRD) Af Amer 83 Est GFR (MDRD) Non-Af 69 BUN/Creatinine Ratio 20.9 H Glucose 84 Calcium 9.5 Urine Color Yellow Urine Clarity Clear Urine pH 5.0 Ur Specific [place] 1.020 Urine Protein 15 H Urine Glucose (UA) Normal Urine Ketones Negative Urine Occult Blood Negative Urine Nitrite Negative Urine Bilirubin Negative Urine Urobilinogen Normal Ur Leukocyte Esterase Negative Urine RBC 0 SEEN Urine WBC 0 SEEN Ur Squamous Epith Cells 0 SEEN Urine Bacteria 0 SEEN Urine Mucus 0 SEEN Radiography Chest X-Ray - ED: 1 View, Read by ED Physician, Read by Radiologist, Heart, Lungs, Mediastinum, Bony Structures, No Acute Disease and Chronic Changes Diagnostic Testing: Clinical Impression(s) from Imaging Studies Brain CT 02/06/24 08:33 IMPRESSION: Chronic involutional changes of the brain. Electronically Signed: Bhaskar Dyson MD at 9:36 EDT , Chest X-Ray 02/06/24 08:33 IMPRESSION: Hyperinflation. Prominence of the central pulmonary arteries bilaterally. Electronically Signed: Bhaskar Dyson MD at 9:37 EDT , Hip/Pelvis X-Ray 02/06/24 08:33 IMPRESSION: No fracture is seen. Mild degree of the right hip joint narrowing. Electronically Signed: Bhaskar Dyson MD at 9:29 EDT , Chest x-ray, portable, single view shows no acute abnormality. Chronic changes. Normal cardiac silhouette. No infiltrates. Interpreted both by myself and the radiologist. Right hip x-ray pelvis 3 views interpreted both by myself and radiologist shows no acute abnormality. No fracture or dislocation. 7 days ago Rhythm Strip Rhythm Strip: Junctional bradycardia rate of 48. Rate: 48 Ectopy: None EKG Initial EKG: Attestation: I personally reviewed and interpreted this EKG as follows: Comments: Objective bradycardia rate of 48 no acute signs of IN or ischemia. Discharge Plan Triage Chief Complaint: Dizziness ED Provider: Steve Loco Dx/Rx/DC Orders Clinical Impression: History of heart failure, Contusion of hip, Generalized weakness, Unable to ambulate, Adult failure to thrive, Chronic anemia, History of diabetes mellitus, Fall Prescriptions: No Action atorvastatin 20 mg tablet 20 mg PO QHS Qty: 90 3RF aspirin [Bertin Low Dose Aspirin] 81 mg tablet,delayed release (DR/EC) 81 mg PO DAILY pantoprazole 40 mg tablet,delayed release (DR/EC) 40 mg PO DAILY PRN (Reason: GERD) albuterol sulfate 90 mcg/actuation HFA aerosol inhaler 1 inh inhalation Q6H PRN (Reason: SHORTNESS OF BREATH/WHEEZING ) Qty: 6.7 0RF lisinopril 20 mg tablet 20 mg PO BID amlodipine 10 mg tablet 10 mg PO DAILY Primary Care Provider: Jasson England Referrals: Jasson England MD [Primary Care Provider] - Disposition Disposition: Acute Care Hospital [facility]
[2024-02-06 09:02] LABS: Absolute Lymphocyte Count 1.18 X10^3/uL (0.83-4.51); Absolute Neutrophil Count 3.1 X10^3/uL (2.0-7.7); Basophil# 0.02 X10^3/uL; Basophil% 0.4 % (0-1); Eosinophil# 0.21 X10^3/uL; Eosinophils% 4.3 % (0-5); Hematocrit 29.4 % (40-54); Hemoglobin 9.2 g/dL (13.0-16.5); Lymphocyte # 1.18 X10^3/ul (0.83-4.51); Lymphocyte % 23.9 % (19-41); Mean Corp Hgb Conc 31.3 g/dL (32-36); Mean Corpuscular Hgb 30.7 pg (27.0-32.0); Mean Platelet Vol. 11.5 fl (6.2-12.0); Monocyte# 0.39 X10^3/uL; Monocyte% 7.9 % (0-10); NRBC Flagged by Analyzer 0 % (0-5); Neutrophil # 3.11 X10^3/uL (2.7-7.7); Neutrophil % 63.1 % (47-70); Platelet Count 125 K/mm3 (150-450); RBC Distribution Width CV 16.3 % (11.6-14.6); White Blood Count 4.9 K/mm3 (4.4-11.0)
[2024-02-06 09:02] LABS: Bacteria 0 SEEN /hpf (None Seen); Mucous, Urine 0 SEEN /hpf (<or=2+); Red Blood Cells-Urine 0 SEEN /hpf (0-5); Squamous Epithelial Cells - UA 0 SEEN /hpf (0-5); White Blood Cells 0 SEEN /hpf (0-5)
[2024-02-06 09:05] LABS: Color, Urine Yellow (Yellow); Glucose, Dipstick Normal (Normal); Ketone-Dipstick Negative (Negative); Leukocyte Esterase-Dipstick Negative /ul (Negative); Nitrite-Dipstick Negative (Negative); Occult Blood-Urine Negative /ul (Negative); Protein-Dipstick 15 mg/dl (Negative); Urine Bilirubin Dipstick Negative (Negative); Urine Clarity Clear (Clear); Urine Urobilinogen Normal (Normal)
[2024-02-06 09:13] LABS: Anion Gap 3 (5-15); BUN 23 mg/dL (7-18); BUN/Creat Ratio 20.9 RATIO (10-20); Calcium,Total 9.5 mg/dL (8.5-10.1); Chloride 111 mmol/L (98-107); EST Glomerular Filtration Rate 69 mL/min (>60); Est Glom Filt Rate - Afr Amer 83 mL/min (>60); Estimated Creatinine Clearance 65.44 ml/min; Glucose 84 mg/dL (74-106); Potassium 3.7 mmol/L (3.5-5.1); Sodium Level 143 mmol/L (136-145)
[2024-02-06] MEDS: Acetaminophen 500 MG Tablet 1000 MG PO (11:31)
[2024-02-06] MEDS: Nystatin Powder 15gm Bottle 1 APPLIC TOPICAL ×2 (16:23→21:30)
[2024-02-06] MEDS: Menthol/Lanolin/Calamine/Znox 113 GM Tube 1 APPLIC TOPICAL ×2 (16:24→21:30)
[2024-02-06 16:56] LABS: Allen Test Positive; Base Excess 3 mmol/L (-2 to +2); Blood Gas Specimen Type ART; Mode Not entered; O2 Delivery Device Room Air; PO2 64 mmHG (75-100); SITE R Radial; SO2 92 % (95-99); Total Carbon Dioxide 30 mmol/L; pCO2 46.9 mmHg (35-45); pH 7.39 (7.35-7.45)
--- NOTE | 2024-02-06 18:06 | PCM.HP.STD ---
HPI - General General Date of Admission: 02/06/24 HPI Narrative KERRY VALDES, is a 78 M who presents to the hospital after mechanical fall and he was found down by his sister as he was unable to get up on his own. Unfortunate by the time I came to evaluate him he was lethargic and not responding to questions. He has been admitted before he needed BiPAP at that time so an ABG was obtained that did show a mild hypercapnia to 46.9 with not significant decrease in pH, however his pO2 was only 64 so he was placed on BiPAP. He does have a history of COPD and could potentially be in exacerbation as he does have some abnormal lung sounds. CT of the brain on admission was negative for bleed. [facility] Medical History Acute alteration in mental status Acute respiratory failure with hypoxia Altered mental status Anemia Anemia Anemia Anxiety Atherosclerotic heart disease of [place] coronary artery without angina pectoris Atrial fibrillation Back pain Bradycardia Chest pain CHF (congestive heart failure) CHI (closed head injury) Congestive heart failure (CHF) COPD exacerbation Coronary artery disease Degenerative disc disease, lumbar Degenerative disk disease Delirium Diabetes Essential hypertension Fall Former smoker GERD (gastroesophageal reflux disease) Hallucinations HLD (hyperlipidemia) Hypertension Hypertensive urgency Hypoxia Lower extremity edema Macrocytic anemia On home oxygen therapy Orthostatic hypotension Parkinson's disease Presence of stent in coronary artery (~05/12/21) Short-term memory loss Syncope Vertigo Home Medications amlodipine 10 mg tablet 10 mg PO DAILY BLOOD PRESSURE 03/26/23 [History Last Taken Unknown] aspirin 81 mg tablet,delayed release (Bertin Low Dose Aspirin) 81 mg PO DAILY HEART HEALTH 08/16/23 [History Last Taken Unknown] atorvastatin 20 mg tablet 20 mg PO QHS CHOLESTEROL #90 tabs 08/16/23 [Rx Last Taken Unknown] albuterol sulfate 90 mcg/actuation aerosol inhaler 1 inh inhalation Q6H PRN SHORTNESS OF BREATH/WHEEZING #6.7 grams 10/02/23 [Rx Last Taken Unknown] acetaminophen 650 mg tablet,extended release (8 Hour Pain Reliever) 1,300 mg PO BID PRN PAIN 02/06/24 [History Last Taken Unknown] cyanocobalamin (vitamin B-12) 1,000 mcg tablet 1,000 mcg PO DAILY SUPPLEMENT 02/06/24 [History Last Taken Unknown] donepezil 5 mg tablet 5 mg PO QHS CONFUSION 02/06/24 [History Last Taken Unknown] folic acid 1 mg tablet 1 mg PO DAILY SUPPLEMENT 02/06/24 [History Last Taken Unknown] lisinopril 20 mg tablet 20 mg PO BID BLOOD PRESSURE 02/06/24 [History Last Taken Unknown] pantoprazole 40 mg tablet,delayed release 40 mg PO DAILY PRN GERD 02/06/24 [History Last Taken Unknown] Allergy/AdvReac Type Severity Reaction Status Date / Time No Known Allergies Allergy Verified 01/24/24 11:18 Family History unable to obtain unable to obtain Surgical History History of coronary artery stent placement Presence of coronary angioplasty implant and graft (~05/12/21) Social History household members: spouse housing: assisted Smoking Status: Former smoker alcohol intake: never substance use type: does not use ROS Review of Systems ROS Unobtainable: due to mental status Vital Signs Vital Signs Vital Signs: 02/06/24 08:21 02/06/24 08:42 02/06/24 10:18 Temperature 98 F 98.1 F Temperature Source Temporal Pulse Rate 48 L 49 L Respiratory Rate 14 12 Respiratory Effort Respiratory Depth Respiratory Pattern Normal Blood Pressure 181/68 H 183/69 H Blood Pressure Mean 105 107 Blood Pressure Source Blood Pressure Position Blood Pressure Location Pulse Ox 96 94 Oxygen Delivery Method Room Air Fraction of Inspired Oxygen (FIO2) 02/06/24 10:21 02/06/24 12:56 02/06/24 12:45 Temperature 97.6 F L Temperature Source Temporal Pulse Rate 49 L 41 L Respiratory Rate 12 14 Respiratory Effort Non-Labored Respiratory Depth Shallow Respiratory Pattern Normal Blood Pressure 183/69 H 184/62 H Blood Pressure Mean 107 102 Blood Pressure Source Monitor Blood Pressure Position Semi-Fowlers Blood Pressure Location Right Arm Pulse Ox 94 98 Oxygen Delivery Method Room Air Room Air Fraction of Inspired Oxygen (FIO2) 02/06/24 17:31 02/06/24 17:31 Temperature Temperature Source Pulse Rate 48 L Respiratory Rate 16 Respiratory Effort Respiratory Depth Respiratory Pattern Normal Blood Pressure Blood Pressure Mean Blood Pressure Source Blood Pressure Position Blood Pressure Location Pulse Ox 99 99 Oxygen Delivery Method Bi-pap Fraction of Inspired Oxygen (FIO2) 30 30 Weight Weight: 200 lb Body Mass Index (BMI) 29.5 Physical Exam Narrative General: Lethargic does respond to painful stimuli, Cooperative, No apparent distress HEENT: Atraumatic, PERRLA, EOMI, Normocephalic Oral: Moist Mucosa Neck: Supple, No JVD Lungs: Diminished, poor air movement, rhonchi, wheeze, No rales Cardiovascular: Bradycardic, Regular Rhythm, Normal S1, Normal S2, No murmurs Abdomen: Soft, Non Tender, Non-Distended, No Hepato-splenomegaly Extremities: No edema, Capillary Refill Less than 3 Seconds Skin: No rashes, No breakdown Musculoskeletal: No Tenderness to Palpation of Joints or Extremities Neurological: Does not follow commands Psych/Mental Status: Lethargic Results Lab / Micro Data 02/06/24 08:45 02/06/24 08:45 Labs: Laboratory Results - last 24 hr 02/06/24 08:45: WBC 4.9, RBC 3.00 L, Hgb 9.2 L, Hct 29.4 L, MCV 98.0 H, MCH 30.7, MCHC 31.3 L, RDW Std Deviation 58.0 H, RDW Coeff of Sophie 16.3 H, Plt Count 125 L, MPV 11.5, Immature Gran % (Auto) 0.400, Neut % (Auto) 63.1, Lymph % (Auto) 23.9, [place] % (Auto) 7.9, Eos % (Auto) 4.3, Baso % (Auto) 0.4, Absolute Neuts (auto) 3.1, Absolute Lymphs (auto) 1.18, Nucleated RBC % 0, Sodium 143, Potassium 3.7, Chloride 111 H, Carbon Dioxide 29.0, Anion Gap 3 L, BUN 23 H, Creatinine 1.10, Estim Creat Clear Calc 65.44, Est GFR (MDRD) Af Amer 83, Est GFR (MDRD) Non-Af 69, BUN/Creatinine Ratio 20.9 H, Glucose 84, Calcium 9.5 02/06/24 08:56: Urine Color Yellow, Urine Clarity Clear, Urine pH 5.0, Ur Specific [place] 1.020, Urine Protein 15 H, Urine Glucose (UA) Normal, Urine Ketones Negative, Urine Occult Blood Negative, Urine Nitrite Negative, Urine Bilirubin Negative, Urine Urobilinogen Normal, Ur Leukocyte Esterase Negative, Urine RBC 0 SEEN, Urine WBC 0 SEEN, Ur Squamous Epith Cells 0 SEEN, Urine Bacteria 0 SEEN, Urine Mucus 0 SEEN ABG Data ABG results: ABG 02/06/24 16:53 Specimen Type ART Sample Site R Radial pH 7.39 Bicarbonate Actual 28.0 H Total CO2 30 Base Excess 3 H O2 Saturation 92 L ABG pCO2 46.9 H ABG pO2 64 L Jus Test Positive O2 Delivery Device Room Air Vent Mode Not entered Rhythm Strip Rhythm Strip: Junctional bradycardia rate of 48. Rate: 48 Ectopy: None Imaging Radiology Impression Brain CT 02/06/24 08:33 IMPRESSION: Chronic involutional changes of the brain. Electronically Signed: Bhaskar Dyson MD at 9:36 EDT , Chest X-Ray 02/06/24 08:33 IMPRESSION: Hyperinflation. Prominence of the central pulmonary arteries bilaterally. Electronically Signed: Bhaskar Dyson MD at 9:37 EDT , Hip/Pelvis X-Ray 02/06/24 08:33 IMPRESSION: No fracture is seen. Mild degree of the right hip joint narrowing. Electronically Signed: Bhaskar Dyson MD at 9:29 EDT , Assessment & Plan Assessment/Plan (1) Adult failure to thrive: (2) Unable to ambulate: (3) Generalized weakness: (4) Fall: PLAN: Plan 1. Adult failure to thrive with inability to ambulate and generalized weakness ? Obtain a PT/OT consult as well as a case management consult for placement ? UA is negative for UTI and chest x-ray was negative for pneumonia ? Will discontinue donepezil as it has little benefit 2. Hypoxia with minimal hypercapnia with COPD exacerbation ? Given his history of COPD, the hypoxia with the hypercapnia is potentially due to his COPD exacerbation ? Will place him on steroids as well as albuterol ? Continue with BiPAP 3. Paroxysmal A-fib/essential HTN/HLD/chronic bradycardia with junctional rhythm ? Continue with his home blood pressure medications ? Will monitor make adjustments as necessary ? Continue with Lipitor ? He was recently evaluated for his bradycardia and did not need a pacemaker 4. GERD ? Stable ? Continue with PPI DVT: Heparin 75 minutes was spent on direct patient care, including documentation as well as chart review and collaboration with colleagues Charges/Coding Visit Charges Inpatient E&M: 30629 Init Hosp L3
[2024-02-06] MEDS: Heparin Injection (Vial) 5,000 UNIT/ML VIAL 5000 UNIT SC (21:29)
[2024-02-06] MEDS: 0.9% Saline Lock 10 ML Syringe IV (21:29)
[2024-02-07] VITALS (8 sets, daily range): BP systolic 114–167; BP diastolic 49–90; PULSE 44–61; RESP 12–20; TEMP 36–36.6; O2SAT 97–100
[2024-02-07] MEDS: Heparin Injection (Vial) 5,000 UNIT/ML VIAL 5000 UNIT SC ×3 (05:10→21:04)
[2024-02-07] MEDS: 0.9% Saline Lock 10 ML Syringe IV ×3 (05:10→21:03)
[2024-02-07 07:29] LABS: Absolute Lymphocyte Count 0.49 X10^3/uL (0.83-4.51); Absolute Neutrophil Count 3.3 X10^3/uL (2.0-7.7); Basophil# 0.01 X10^3/uL; Basophil% 0.3 % (0-1); Hematocrit 32.5 % (40-54); Hemoglobin 10.5 g/dL (13.0-16.5); Lymphocyte # 0.49 X10^3/ul (0.83-4.51); Lymphocyte % 12.6 % (19-41); Mean Corp Hgb Conc 32.3 g/dL (32-36); Mean Corpuscular Hgb 31.3 pg (27.0-32.0); Mean Corpuscular Volume 96.7 fL (80-94); Mean Platelet Vol. 11.1 fl (6.2-12.0); Monocyte# 0.05 X10^3/uL; Monocyte% 1.3 % (0-10); NRBC Flagged by Analyzer 0 % (0-5); Neutrophil # 3.31 X10^3/uL (2.7-7.7); POSITIVE DIFFERENTIAL YES; Platelet Count 121 K/mm3 (150-450); RBC Distribution Width SD 57.2 fl (35.1-43.9); Red Blood Count 3.36 M/mm3 (4.6-6.2); White Blood Count 3.9 K/mm3 (4.4-11.0)
[2024-02-07 08:08] LABS: Anion Gap 4 (5-15); BUN 18 mg/dL (7-18); BUN/Creat Ratio 21.7 RATIO (10-20); Calcium,Total 9.2 mg/dL (8.5-10.1); Chloride 109 mmol/L (98-107); Creatinine, Serum 0.83 mg/dL (0.70-1.30); EST Glomerular Filtration Rate 95 mL/min (>60); Est Glom Filt Rate - Afr Amer 115 mL/min (>60); Estimated Creatinine Clearance 80.34 ml/min; Glucose 114 mg/dL (74-106); Potassium 3.9 mmol/L (3.5-5.1); Sodium Level 141 mmol/L (136-145)
--- NOTE | 2024-02-07 09:56 | PCM.PN.HOSP ---
Subjective Subjective More alert today however communication is difficult with him and BiPAP. Objective Data Objective Data Vital Signs: Vital Signs Temp Pulse Resp BP Pulse Ox O2 Del Method FiO2 97.7 F L 60 18 159/81 H 100 Bi-pap 30 02/07/24 09:25 02/07/24 09:25 02/07/24 09:25 02/07/24 09:25 02/07/24 09:25 02/07/24 09:27 02/07/24 07:02 Oxygen Delivery Method Bi-pap Weight: 200 lb Body Mass Index (BMI) 29.5 Intake & Output: Intake and Output for Last 24 Hours 02/06/24 02/07/24 02/08/24 03:59 03:59 03:59 Output Total 900 / 900 Balance -900 / -900 Lab / Micro Data 02/07/24 06:22 02/07/24 06:22 Labs: Laboratory Results - last 24 hr 02/07/24 06:22: WBC 3.9 L, RBC 3.36 L, Hgb 10.5 L, Hct 32.5 L, MCV 96.7 H, MCH 31.3, MCHC 32.3, RDW Std Deviation 57.2 H, RDW Coeff of [place] 16.0 H, Plt Count 121 L, MPV 11.1, Immature Gran % (Auto) 0.800, Neut % (Auto) 85.0 H, Lymph % (Auto) 12.6 L, [place] % (Auto) 1.3, Eos % (Auto) 0.0, Baso % (Auto) 0.3, Absolute Neuts (auto) 3.3, Absolute Lymphs (auto) 0.49 L, Nucleated RBC % 0, Sodium 141, Potassium 3.9, Chloride 109 H, Carbon Dioxide 28.0, Anion Gap 4 L, BUN 18, Creatinine 0.83, Estim Creat Clear Calc 80.34, Est GFR (MDRD) Af Amer 115, Est GFR (MDRD) Non-Af 95, BUN/Creatinine Ratio 21.7 H, Glucose 114 H, Calcium 9.2 ABG Data ABG results: ABG 02/06/24 16:53 Specimen Type ART Sample Site R Radial pH 7.39 Bicarbonate Actual 28.0 H Total CO2 30 Base Excess 3 H O2 Saturation 92 L ABG pCO2 46.9 H ABG pO2 64 L Jus Test Positive O2 Delivery Device Room Air Vent Mode Not entered Rhythm Strip Rhythm Strip: Junctional bradycardia rate of 48. Rate: 48 Ectopy: None Physical Exam Narrative General: Alert, Cooperative, No apparent distress HEENT: Atraumatic, PERRLA, EOMI, Normocephalic Oral: Moist Mucosa Neck: Supple, No JVD Lungs: Diminished, normal air movement, no rhonchi, no wheeze, No rales Cardiovascular: Bradycardic, Regular Rhythm, Normal S1, Normal S2, No murmurs Abdomen: Soft, Non Tender, Non-Distended, No Hepato-splenomegaly Extremities: No edema, Capillary Refill Less than 3 Seconds Skin: No rashes, No breakdown Musculoskeletal: No Tenderness to Palpation of Joints or Extremities Neurological: No focal neurological deficits Psych/Mental Status: Flat affect Assessment & Plan Assessment/Plan (1) Adult failure to thrive: (2) Unable to ambulate: (3) Generalized weakness: (4) Fall: PLAN: Plan 1. Adult failure to thrive with inability to ambulate and generalized weakness ? Obtain a PT/OT consult as well as a case management consult for placement ? UA is negative for UTI and chest x-ray was negative for pneumonia ? Will discontinue donepezil as it has little benefit 2. Hypoxia with minimal hypercapnia with COPD exacerbation and altered mental status ? Given his history of COPD, the hypoxia with the hypercapnia is potentially due to his COPD exacerbation ?Continue with steroids and breathing treatments, he is older more alert today ? Continue with BiPAP 3. Paroxysmal A-fib/essential HTN/HLD/chronic bradycardia with junctional rhythm ? Continue with his home blood pressure medications ? Will monitor make adjustments as necessary ? Continue with Lipitor ? He was recently evaluated for his bradycardia and did not need a pacemaker 4. GERD ? Stable ? Continue with PPI DVT: Heparin Charges/Coding Visit Charges Inpatient E&M: 35978 Subs Hosp L2
[2024-02-07] MEDS: Nystatin Powder 15gm Bottle 1 APPLIC TOPICAL ×2 (10:19→21:04)
[2024-02-07] MEDS: Menthol/Lanolin/Calamine/Znox 113 GM Tube 1 APPLIC TOPICAL ×2 (10:19→21:04)
[2024-02-07] MEDS: Aspirin E.C. 81 MG Tablet PO (10:21)
[2024-02-07] MEDS: Lisinopril 20 MG Tablet PO ×2 (10:22→21:05)
[2024-02-07] MEDS: amLODIPine 10 MG Tablet PO (10:22)
[2024-02-07] MEDS: Folic Acid 1 MG Tablet PO (10:22)
--- NOTE | 2024-02-07 13:49 | CASEMGMT ---
Spoke with patients daughter (Libia) to complete YOUNG form. YOUNG form explained to Libia who voiced understanding and signed form. Original form placed in pt?s chart and copy placed in patients room. Lillian Hollis, Discharge Planning Asst
--- NOTE | 2024-02-07 14:51 | CASEMGMT ---
CALIN CM into pt room, pt sitting up in chair in no distress. Pt kept eyes closed throughout assessment. Pt states he lives alone and uses a walker. He states his sister in law lives next to him and he has multiple family members who help him. He states he is able to bathe and dress himself indep, prepare his own meals, do laundry and gets groceries. Pt denies having oxygen at home. He states it took a long time to get the company to take the oxygen back and he does not want it again. Pt states he drives. He requested that his dtr be called to ask her any further questions and to obtain who his HHC is. Pt reports he would like to return home after this hospital stay with his current assistance. TC to pt dtr Libia, she confirms all of the above except that pt has not driven since December as he is supposed to be evaluated by a neurologist. She states that she and the patient get groceries together and pt has [facility] for SN, PT and OT. She is pt DPOA and states she ultimately wants what is safe for her father. She states he was dc'd from [facility] after a previous hospitalization. Requested dc plastic surgery assistant send referral to [facility] to resume upon dc pending pt progress with therapy.
--- NOTE | 2024-02-07 15:26 | CASEMGMT ---
Discharge Planning Resumption HH referral sent to [facility] via [facility]. Requested list of disciplines he is currently receiving. Lillian Hollis DC Planning Asst.
[2024-02-07] MEDS: Atorvastatin Calcium 20 MG Tablet PO (21:04)
[2024-02-08 00:36] VITALS: PULSE 58; RESP 12; RESP 13; O2SAT 100
[2024-02-08 04:55] VITALS: PULSE 64; RESP 12; RESP 18; O2SAT 100
[2024-02-08] MEDS: Heparin Injection (Vial) 5,000 UNIT/ML VIAL 5000 UNIT SC ×3 (05:19→20:44)
[2024-02-08] MEDS: 0.9% Saline Lock 10 ML Syringe IV ×3 (05:19→20:44)
[2024-02-08 07:31] LABS: Absolute Lymphocyte Count 0.71 X10^3/uL (0.83-4.51); Absolute Neutrophil Count 8.1 X10^3/uL (2.0-7.7); Hematocrit 30.4 % (40-54); Hemoglobin 9.7 g/dL (13.0-16.5); Lymphocyte # 0.71 X10^3/ul (0.83-4.51); Lymphocyte % 7.8 % (19-41); Mean Corp Hgb Conc 31.9 g/dL (32-36); Mean Corpuscular Hgb 30.7 pg (27.0-32.0); Mean Corpuscular Volume 96.2 fL (80-94); Mean Platelet Vol. 10.9 fl (6.2-12.0); Monocyte# 0.21 X10^3/uL; Monocyte% 2.3 % (0-10); NRBC Flagged by Analyzer 0 % (0-5); Neutrophil # 8.12 X10^3/uL (2.7-7.7); Neutrophil % 89.5 % (47-70); Platelet Count 142 K/mm3 (150-450); RBC Distribution Width CV 15.9 % (11.6-14.6); RBC Distribution Width SD 56.3 fl (35.1-43.9); Red Blood Count 3.16 M/mm3 (4.6-6.2); White Blood Count 9.1 K/mm3 (4.4-11.0)
[2024-02-08 08:07] LABS: Anion Gap 5 (5-15); BUN 23 mg/dL (7-18); BUN/Creat Ratio 25.4 RATIO (10-20); Calcium,Total 9.2 mg/dL (8.5-10.1); Chloride 107 mmol/L (98-107); Creatinine, Serum 0.91 mg/dL (0.70-1.30); EST Glomerular Filtration Rate 86 mL/min (>60); Est Glom Filt Rate - Afr Amer 104 mL/min (>60); Estimated Creatinine Clearance 73.28 ml/min; Glucose 127 mg/dL (74-106); Sodium Level 139 mmol/L (136-145)
[2024-02-08 08:15] VITALS: BP 167/70; PULSE 60; RESP 18; TEMP 36.6; O2SAT 96
[2024-02-08] MEDS: Menthol/Lanolin/Calamine/Znox 113 GM Tube 1 APPLIC TOPICAL ×2 (08:20→20:40)
[2024-02-08] MEDS: Lisinopril 20 MG Tablet PO ×2 (08:20→20:40)
[2024-02-08] MEDS: Nystatin Powder 15gm Bottle 1 APPLIC TOPICAL ×2 (08:20→20:40)
[2024-02-08] MEDS: amLODIPine 10 MG Tablet PO (08:21)
[2024-02-08] MEDS: Aspirin E.C. 81 MG Tablet PO (08:21)
[2024-02-08] MEDS: Folic Acid 1 MG Tablet PO (08:21)
--- NOTE | 2024-02-08 11:28 | PCM.PN.HOSP ---
Subjective Subjective Maintaining saturations on nasal cannula though he is wearing BiPAP overnight Objective Data Objective Data Vital Signs: Vital Signs Temp Pulse Resp BP Pulse Ox O2 Del Method O2 Flow Rate 97.9 F 60 18 167/70 H 96 Nasal Cannula 2 02/08/24 08:15 02/08/24 08:15 02/08/24 08:15 02/08/24 08:15 02/08/24 08:15 02/08/24 08:16 02/08/24 08:15 FiO2 30 02/08/24 04:55 Oxygen Flow Rate (L/min) 2 Oxygen Delivery Method Nasal Cannula Weight: 200 lb Body Mass Index (BMI) 29.5 Intake & Output: Intake and Output for Last 24 Hours 02/07/24 02/08/24 02/09/24 03:59 03:59 03:59 Intake Total 450 / 450 Output Total 1400 / 1400 Balance -950 / -950 Lab / Micro Data 02/08/24 07:00 02/08/24 07:00 Labs: Laboratory Results - last 24 hr 02/08/24 07:00: WBC 9.1, RBC 3.16 L, Hgb 9.7 L, Hct 30.4 L, MCV 96.2 H, MCH 30.7, MCHC 31.9 L, RDW Std Deviation 56.3 H, RDW Coeff of Sophie 15.9 H, Plt Count 142 L, MPV 10.9, Immature Gran % (Auto) 0.400, Neut % (Auto) 89.5 H, Lymph % (Auto) 7.8 L, [place] % (Auto) 2.3, Eos % (Auto) 0.0, Baso % (Auto) 0.0, Absolute Neuts (auto) 8.1 H, Absolute Lymphs (auto) 0.71 L, Nucleated RBC % 0, Sodium 139, Potassium 4.0, Chloride 107, Carbon Dioxide 27.0, Anion Gap 5, BUN 23 H, Creatinine 0.91, Estim Creat Clear Calc 73.28, Est GFR (MDRD) Af Amer 104, Est GFR (MDRD) Non-Af 86, BUN/Creatinine Ratio 25.4 H, Glucose 127 H, Calcium 9.2 Rhythm Strip Rhythm Strip: Junctional bradycardia rate of 48. Rate: 48 Ectopy: None Physical Exam Narrative General: Alert, Cooperative, No apparent distress HEENT: Atraumatic, PERRLA, EOMI, Normocephalic Oral: Moist Mucosa Neck: Supple, No JVD Lungs: Diminished, normal air movement, no rhonchi, no wheeze, No rales Cardiovascular: Bradycardic, Regular Rhythm, Normal S1, Normal S2, No murmurs Abdomen: Soft, Non Tender, Non-Distended, No Hepato-splenomegaly Extremities: No edema, Capillary Refill Less than 3 Seconds Skin: No rashes, No breakdown Musculoskeletal: No Tenderness to Palpation of Joints or Extremities Neurological: No focal neurological deficits Psych/Mental Status: Flat affect Assessment & Plan Assessment/Plan (1) Adult failure to thrive: (2) Unable to ambulate: (3) Generalized weakness: (4) Fall: PLAN: Plan 1. Adult failure to thrive with inability to ambulate and generalized weakness ? Obtain a PT/OT consult as well as a case management consult for placement ? UA is negative for UTI and chest x-ray was negative for pneumonia ? Will discontinue donepezil as it has little benefit 2. Hypoxia with minimal hypercapnia with COPD exacerbation with metabolic encephalopathy ? Given his history of COPD, the hypoxia with the hypercapnia is potentially due to his COPD exacerbation ?Continue with steroids and breathing treatments, he is older more alert today ? Continue with BiPAP 3. Paroxysmal A-fib/essential HTN/HLD/chronic bradycardia with junctional rhythm ? Continue with his home blood pressure medications ? Will monitor make adjustments as necessary ? Continue with Lipitor ? He was recently evaluated for his bradycardia and did not need a pacemaker 4. GERD ? Stable ? Continue with PPI DVT: Heparin Charges/Coding Visit Charges Inpatient E&M: 14973 Subs Hosp L2
--- NOTE | 2024-02-08 14:15 | CASEMGMT ---
Addendum entered by Sera White 02/08/24 15:42: Updated [facility] on pt plan for SNF via [facility]. Original Note: CALIN TORREZ spoke with TACK CLEANER who just finished working with pt. Hospitalist in room speaking with pt dtr. CALIN TORREZ into room, pt dtr ready to leave. She states that she would like pt to go to [place] but she needed to leave [place]. CALIN TORREZ spoke with pt and stated with yesterday's therapy pt may have been able to return home with home health but it looks as though today his performance has decreased. Pt stated I don't want to go home with home health. Pt states he wants to go to a facility for therapy. Made pt aware that his dtr mentioned [place]. He states that is too far for them to drive. Pt is aware that the SW will be in to discuss with him and provide a list of options. Pt denies further needs.
--- NOTE | 2024-02-08 15:11 | CASEMGMT ---
Addendum entered by Hansa Willett 02/08/24 17:01: Social Work alf facility list not needed at this time, however SW does have list via [facility] of long-term facilities in network w/pt's insurance, preferred geographic area and complete w/quality and resource use data if needed. SHEKHAR Albrecht Original Note: Social Work SW spoke w/pt as pt may need SNF placement. SW having difficulty understanding pt. SW called daughter in regard to plan. She would like pt to go to [facility], he has been there in the past and can smoke there. SW spoke w/pt, he is agreeable to referral to [facility]. D/C executive administrative assistant will send referral. Pt here through , SW will follow up on Sunday. SHEKHAR Albrecht
[2024-02-08 15:13] VITALS: BP 133/59; PULSE 50; RESP 18; TEMP 36.6; O2SAT 97
--- NOTE | 2024-02-08 15:59 | CASEMGMT ---
Discharge Planning Referral sent to [facility] via [facility]. Lillian Hollis, Discharge Planning Asst.
[2024-02-08] MEDS: QUEtiapine 25 MG Tablet PO (17:44)
[2024-02-08 20:00] VITALS: BP 120/83; PULSE 52; RESP 18; TEMP 36.6; O2SAT 100
[2024-02-08] MEDS: Atorvastatin Calcium 20 MG Tablet PO (20:41)
[2024-02-08 22:27] VITALS: PULSE 52; RESP 12; RESP 13; O2SAT 93
[2024-02-09] VITALS (7 sets, daily range): BP systolic 110–162; BP diastolic 63–85; PULSE 51–70; RESP 12–22; TEMP 36.6; O2SAT 93–100
[2024-02-09] MEDS: 0.9% Saline Lock 10 ML Syringe IV (05:07)
[2024-02-09] MEDS: Heparin Injection (Vial) 5,000 UNIT/ML VIAL 5000 UNIT SC ×3 (05:08→21:59)
[2024-02-09 07:07] LABS: Absolute Lymphocyte Count 0.64 X10^3/uL (0.83-4.51); Basophil# 0.01 X10^3/uL; Basophil% 0.1 % (0-1); Hematocrit 31.3 % (40-54); Hemoglobin 9.8 g/dL (13.0-16.5); Lymphocyte # 0.64 X10^3/ul (0.83-4.51); Lymphocyte % 7.9 % (19-41); Mean Corp Hgb Conc 31.3 g/dL (32-36); Mean Corpuscular Hgb 30.4 pg (27.0-32.0); Mean Corpuscular Volume 97.2 fL (80-94); Mean Platelet Vol. 10.9 fl (6.2-12.0); Monocyte# 0.43 X10^3/uL; Monocyte% 5.3 % (0-10); NRBC Flagged by Analyzer 0 % (0-5); Neutrophil # 7.02 X10^3/uL (2.7-7.7); Neutrophil % 86.1 % (47-70); Platelet Count 135 K/mm3 (150-450); RBC Distribution Width SD 57.1 fl (35.1-43.9); Red Blood Count 3.22 M/mm3 (4.6-6.2); White Blood Count 8.2 K/mm3 (4.4-11.0)
[2024-02-09 07:21] LABS: Anion Gap 2 (5-15); BUN 27 mg/dL (7-18); BUN/Creat Ratio 28.5 RATIO (10-20); Calcium,Total 9.2 mg/dL (8.5-10.1); Chloride 108 mmol/L (98-107); Creatinine, Serum 0.95 mg/dL (0.70-1.30); EST Glomerular Filtration Rate 81 mL/min (>60); Est Glom Filt Rate - Afr Amer 98 mL/min (>60); Estimated Creatinine Clearance 70.19 ml/min; Glucose 123 mg/dL (74-106); Potassium 3.9 mmol/L (3.5-5.1); Sodium Level 143 mmol/L (136-145)
--- NOTE | 2024-02-09 09:59 | PN.HOSP_ITS ---
Subjective Subjective According to the daughter he works third shift which may explain why he is so different in the morning when he is in the afternoon. He was trialed on Seroquel last night to see if this will help him get some rest she also says that he has been hallucinating since 2018 though I have not seen any here Objective Data Objective Data Vital Signs: Vital Signs Temp Pulse Resp BP Pulse Ox O2 Del Method O2 Flow Rate 97.9 F 55 L 16 162/72 H 100 Nasal Cannula 2 02/09/24 09:14 02/09/24 09:14 02/09/24 09:14 02/09/24 09:14 02/09/24 09:14 02/09/24 09:17 02/09/24 09:17 FiO2 30 02/09/24 05:38 Oxygen Flow Rate (L/min) 2 Oxygen Delivery Method Nasal Cannula Weight: 200 lb Body Mass Index (BMI) 29.5 Intake & Output: Intake and Output for Last 24 Hours 02/08/24 02/09/24 02/10/24 03:59 03:59 03:59 Intake Total 450 / 450 Output Total 1400 / 1400 400 / 400 400 / 400 Balance -950 / -950 -400 / -400 -400 / -400 Lab / Micro Data 02/09/24 05:51 02/09/24 05:51 Labs: Laboratory Results - last 24 hr 02/09/24 05:51: WBC 8.2, RBC 3.22 L, Hgb 9.8 L, Hct 31.3 L, MCV 97.2 H, MCH 30.4, MCHC 31.3 L, RDW Std Deviation 57.1 H, RDW Coeff of Sophie 16.0 H, Plt Count 135 L, MPV 10.9, Immature Gran % (Auto) 0.600, Neut % (Auto) 86.1 H, Lymph % (Auto) 7.9 L, [place] % (Auto) 5.3, Eos % (Auto) 0.0, Baso % (Auto) 0.1, Absolute Neuts (auto) 7.0, Absolute Lymphs (auto) 0.64 L, Nucleated RBC % 0, Sodium 143, Potassium 3.9, Chloride 108 H, Carbon Dioxide 33.0 H, Anion Gap 2 L, BUN 27 H, Creatinine 0.95, Estim Creat Clear Calc 70.19, Est GFR (MDRD) Af Amer 98, Est GFR (MDRD) Non-Af 81, BUN/Creatinine Ratio 28.5 H, Glucose 123 H, Calcium 9.2 Rhythm Strip Rhythm Strip: Junctional bradycardia rate of 48. Rate: 48 Ectopy: None Physical Exam Narrative General: Alert, Cooperative, No apparent distress HEENT: Atraumatic, PERRLA, EOMI, Normocephalic Oral: Moist Mucosa Neck: Supple, No JVD Lungs: Diminished, normal air movement, no rhonchi, no wheeze, No rales Cardiovascular: Bradycardic, Regular Rhythm, Normal S1, Normal S2, No murmurs Abdomen: Soft, Non Tender, Non-Distended, No Hepato-splenomegaly Extremities: No edema, Capillary Refill Less than 3 Seconds Skin: No rashes, No breakdown Musculoskeletal: No Tenderness to Palpation of Joints or Extremities Neurological: No focal neurological deficits Psych/Mental Status: Flat affect Assessment & Plan Assessment/Plan (1) Adult failure to thrive: (2) Unable to ambulate: (3) Generalized weakness: (4) Fall: PLAN: Plan 1. Adult failure to thrive with inability to ambulate and generalized weakness ? Obtain a PT/OT consult as well as a case management consult for placement ? UA is negative for UTI and chest x-ray was negative for pneumonia ? Will discontinue donepezil as it has little benefit 2. Hypoxia with minimal hypercapnia with COPD exacerbation with metabolic encephalopathy ? Given his history of COPD, the hypoxia with the hypercapnia is potentially due to his COPD exacerbation ?Continue with steroids and breathing treatments, will transition to oral steroids tomorrow ? Continue with BiPAP 3. Paroxysmal A-fib/essential HTN/HLD/chronic bradycardia with junctional rhyt hm ? Continue with his home blood pressure medications ? Will monitor make adjustments as necessary ? Continue with Lipitor ? He was recently evaluated for his bradycardia and did not need a pacemaker 4. GERD ? Stable ? Continue with PPI Disposition: Likely need SNF per PT/OT, family is aware and okay DVT: Heparin Charges/Coding Visit Charges Inpatient E&M: 22579 Subs Hosp L2
[2024-02-09] MEDS: Menthol/Lanolin/Calamine/Znox 113 GM Tube 1 APPLIC TOPICAL ×2 (10:38→21:59)
[2024-02-09] MEDS: Nystatin Powder 15gm Bottle 1 APPLIC TOPICAL ×2 (10:38→22:00)
[2024-02-09] MEDS: Aspirin E.C. 81 MG Tablet PO (10:39)
[2024-02-09] MEDS: Folic Acid 1 MG Tablet PO (10:39)
[2024-02-09] MEDS: amLODIPine 10 MG Tablet PO (10:39)
[2024-02-09] MEDS: Lisinopril 20 MG Tablet PO (10:40)
[2024-02-09] MEDS: QUEtiapine 25 MG Tablet PO (17:05)
[2024-02-09] MEDS: Atorvastatin Calcium 20 MG Tablet PO (21:58)
[2024-02-10] VITALS (18 sets, daily range): BP systolic 144–162; BP diastolic 57–71; PULSE 34–55; RESP 12–30; TEMP 36.6; O2SAT 91–100
[2024-02-10] MEDS: Heparin Injection (Vial) 5,000 UNIT/ML VIAL 5000 UNIT SC ×3 (05:42→21:52)
[2024-02-10 05:50] LABS: Absolute Lymphocyte Count 0.51 X10^3/uL (0.83-4.51); Absolute Neutrophil Count 11.9 X10^3/uL (2.0-7.7); Basophil# 0.01 X10^3/uL; Basophil% 0.1 % (0-1); Hematocrit 32.5 % (40-54); Hemoglobin 10.1 g/dL (13.0-16.5); Lymphocyte # 0.51 X10^3/ul (0.83-4.51); Lymphocyte % 3.8 % (19-41); Mean Corp Hgb Conc 31.1 g/dL (32-36); Mean Corpuscular Hgb 30.1 pg (27.0-32.0); Mean Platelet Vol. 10.5 fl (6.2-12.0); Monocyte# 0.94 X10^3/uL; NRBC Flagged by Analyzer 0 % (0-5); Neutrophil # 11.86 X10^3/uL (2.7-7.7); Neutrophil % 88.7 % (47-70); POSITIVE DIFFERENTIAL YES; Platelet Count 141 K/mm3 (150-450); RBC Distribution Width SD 56.6 fl (35.1-43.9); Red Blood Count 3.35 M/mm3 (4.6-6.2); White Blood Count 13.4 K/mm3 (4.4-11.0)
[2024-02-10 06:10] LABS: Anion Gap 3 (5-15); BUN 37 mg/dL (7-18); Calcium,Total 9.3 mg/dL (8.5-10.1); Chloride 111 mmol/L (98-107); Creatinine, Serum 0.84 mg/dL (0.70-1.30); EST Glomerular Filtration Rate 93 mL/min (>60); Est Glom Filt Rate - Afr Amer 113 mL/min (>60); Estimated Creatinine Clearance 79.38 ml/min; Glucose 130 mg/dL (74-106); Potassium 3.8 mmol/L (3.5-5.1); Sodium Level 144 mmol/L (136-145)
[2024-02-10] MEDS: Aspirin E.C. 81 MG Tablet PO (07:52)
[2024-02-10] MEDS: Folic Acid 1 MG Tablet PO (07:52)
[2024-02-10] MEDS: predniSONE 20 MG Tablet 40 MG PO (07:52)
--- NOTE | 2024-02-10 10:30 | PN.HOSP_ITS ---
Subjective Subjective No issues overnight, Seroquel does seem to help him get some sleep Objective Data Objective Data Vital Signs: Vital Signs Temp Pulse Resp BP Pulse Ox O2 Del Method O2 Flow Rate 97.9 F 47 L 18 144/71 H 100 Nasal Cannula 2 02/10/24 07:39 02/10/24 07:39 02/10/24 07:42 02/10/24 07:39 02/10/24 07:39 02/10/24 07:42 02/10/24 08:45 FiO2 30 02/10/24 02:36 Oxygen Flow Rate (L/min) 2 Oxygen Delivery Method Nasal Cannula Weight: 200 lb Body Mass Index (BMI) 29.5 Intake & Output: Intake and Output for Last 24 Hours 02/09/24 02/10/24 02/11/24 03:59 03:59 03:59 Intake Total 250 / 250 Output Total 400 / 400 1100 / 1100 Balance -400 / -400 -1100 / -1100 250 / 250 Lab / Micro Data 02/10/24 05:20 02/10/24 05:20 Labs: Laboratory Results - last 24 hr 02/10/24 05:20: WBC 13.4 H, RBC 3.35 L, Hgb 10.1 L, Hct 32.5 L, MCV 97.0 H, MCH 30.1, MCHC 31.1 L, RDW Std Deviation 56.6 H, RDW Coeff of Sophie 16.0 H, Plt Count 141 L, MPV 10.5, Immature Gran % (Auto) 0.400, Neut % (Auto) 88.7 H, Lymph % (Auto) 3.8 L, [place] % (Auto) 7.0, Eos % (Auto) 0.0, Baso % (Auto) 0.1, Absolute Neuts (auto) 11.9 H, Absolute Lymphs (auto) 0.51 L, Nucleated RBC % 0, Sodium 144, Potassium 3.8, Chloride 111 H, Carbon Dioxide 30.0, Anion Gap 3 L, BUN 37 H , Creatinine 0.84, Estim Creat Clear Calc 79.38, Est GFR (MDRD) Af Amer 113, Est GFR (MDRD) Non-Af 93, BUN/Creatinine Ratio 44.0 H, Glucose 130 H, Calcium 9.3 Rhythm Strip Rhythm Strip: Junctional bradycardia rate of 48. Rate: 48 Ectopy: None Physical Exam Narrative General: Alert, Cooperative, No apparent distress HEENT: Atraumatic, PERRLA, EOMI, Normocephalic Oral: Moist Mucosa Neck: Supple, No JVD Lungs: Diminished, normal air movement, no rhonchi, no wheeze, No rales Cardiovascular: Bradycardic, Regular Rhythm, Normal S1, Normal S2, No murmurs Abdomen: Soft, Non Tender, Non-Distended, No Hepato-splenomegaly Extremities: No edema, Capillary Refill Less than 3 Seconds Skin: No rashes, No breakdown Musculoskeletal: No Tenderness to Palpation of Joints or Extremities Neurological: No focal neurological deficits Psych/Mental Status: Flat affect, nursing noted hallucinations Assessment & Plan Assessment/Plan (1) Adult failure to thrive: (2) Unable to ambulate: (3) Generalized weakness: (4) Fall: PLAN: Plan 1. Adult failure to thrive with inability to ambulate and generalized weakness ? Obtain a PT/OT consult as well as a case management consult for placement ? UA is negative for UTI and chest x-ray was negative for pneumonia ? Will discontinue donepezil as it has little benefit ? Continue with Seroquel 2. Hypoxia with minimal hypercapnia with COPD exacerbation with metabolic encephalopathy ? Given his history of COPD, the hypoxia with the hypercapnia is potentially due to his COPD exacerbation ? Started on oral prednisone today, leukocytosis is reactive ? Continue with BiPAP 3. Paroxysmal A-fib/essential HTN/HLD/chronic bradycardia with junctional rhythm ? Continue with his home blood pressure medications ? Will monitor make adjustments as necessary ? Continue with Lipitor ? He was recently evaluated for his bradycardia and did not need a pacemaker 4. GERD ? Stable ? Continue with PPI Disposition: Likely need SNF per PT/OT, family is aware and okay DVT: Heparin Charges/Coding Visit Charges Inpatient E&M: 08275 Subs Hosp L2
[2024-02-10] MEDS: Nystatin Powder 15gm Bottle 1 APPLIC TOPICAL ×2 (10:33→21:53)
[2024-02-10] MEDS: amLODIPine 10 MG Tablet PO (10:33)
[2024-02-10] MEDS: Menthol/Lanolin/Calamine/Znox 113 GM Tube 1 APPLIC TOPICAL ×2 (10:33→21:52)
[2024-02-10] MEDS: Lisinopril 20 MG Tablet PO (10:34)
[2024-02-10] MEDS: QUEtiapine 25 MG Tablet 50 MG PO (22:17)
[2024-02-11] VITALS (13 sets, daily range): BP systolic 145–178; BP diastolic 64–83; PULSE 35–50; RESP 12–26; TEMP 36.3–36.8; O2SAT 92–100
[2024-02-11] MEDS: Heparin Injection (Vial) 5,000 UNIT/ML VIAL 5000 UNIT SC ×3 (05:57→21:32)
[2024-02-11 06:49] LABS: Absolute Lymphocyte Count 0.55 X10^3/uL (0.83-4.51); Absolute Neutrophil Count 3.6 X10^3/uL (2.0-7.7); Hematocrit 31.1 % (40-54); Hemoglobin 10.1 g/dL (13.0-16.5); Lymphocyte # 0.55 X10^3/ul (0.83-4.51); Lymphocyte % 12.1 % (19-41); Mean Corp Hgb Conc 32.5 g/dL (32-36); Mean Corpuscular Hgb 31.3 pg (27.0-32.0); Mean Corpuscular Volume 96.3 fL (80-94); Mean Platelet Vol. 10.9 fl (6.2-12.0); Monocyte# 0.33 X10^3/uL; Monocyte% 7.3 % (0-10); NRBC Flagged by Analyzer 0 % (0-5); Neutrophil # 3.64 X10^3/uL (2.7-7.7); Neutrophil % 80.2 % (47-70); POSITIVE DIFFERENTIAL YES; Platelet Count 131 K/mm3 (150-450); RBC Distribution Width SD 56.5 fl (35.1-43.9); Red Blood Count 3.23 M/mm3 (4.6-6.2); White Blood Count 4.5 K/mm3 (4.4-11.0)
[2024-02-11 07:06] LABS: Anion Gap 2 (5-15); BUN 38 mg/dL (7-18); BUN/Creat Ratio 51.5 RATIO (10-20); Calcium,Total 9.1 mg/dL (8.5-10.1); Chloride 111 mmol/L (98-107); Creatinine, Serum 0.74 mg/dL (0.70-1.30); EST Glomerular Filtration Rate 109 mL/min (>60); Est Glom Filt Rate - Afr Amer 131 mL/min (>60); Estimated Creatinine Clearance 83.35 ml/min; Glucose 110 mg/dL (74-106); Potassium 3.7 mmol/L (3.5-5.1); Sodium Level 145 mmol/L (136-145)
--- NOTE | 2024-02-11 09:20 | CASEMGMT ---
Addendum entered by Lillian Hollis 02/11/24 12:40: [facility] declined d/t no male bed availability. SW updated. Lillian Hollis, Discharge Planning Asst. Original Note: Discharge Planning Updates sent to [facility] via [facility]. Requested status of referral. Awaiting response. Lillian Hollis DC Planning Asst.
--- NOTE | 2024-02-11 10:07 | CON.PCM.CA_ITS ---
Assessment & Plan Assessment/Plan (1) Sick sinus syndrome: PLAN: This gentleman has chronic sick sinus syndrome. His previous ECGs have also showed sinus bradycardia with marked first-degree AV block. He is maintaining his blood pressure and in fact hypertensive with his sinus bradycardia and first-degree AV block. No indication for pacemaker at this point in time. If his confusion resolves, then consider a dobutamine stress test as outpatient to evaluate for chronotropic incompetence. It is noted that patient is on amlodipine. This could also cause or contribute towards bradycardia. Also not controlling blood pressure well. DC amlodipine. Start on nifedipine. It is noted that the patient's past medical history also describes atrial fibrillation. I do not see any comments from cardiology as outpatient going back to 2020. He would not be a candidate for anticoagulation even if he indeed had paroxysmal atrial fibrillation on account of his history of falls. (2) Coronary artery disease: PLAN: Continue aspirin. (3) Hypertension: QUALIFIERS: Hypertension type: unspecified Qualified Code(s): I10 - Essential (primary) hypertension PLAN: Blood pressure has been running above goal. See #1 above. DC amlodipine. Start on nifedipine. (4) Confusion: PLAN: As per internal medicine. HPI Consult Data Date of Consult: 02/11/24 HPI Narrative Reason for Consultation: Bradycardia HPI Narrative: 78-year-old gentleman with generalized debility who is being admitted after sustaining a mechanical fall. He has a history of coronary artery disease status post percutaneous intervention to the RCA in 2020. Also history of hypertension, dyslipidemia, COPD. He has a history of bradycardia and was evaluated in November of this year for the same reason by Dr. Hughes. No indication of pacemaker was noted. Patient this morning is on BiPAP. Appears confused. Unable to provide any history. [facility] Medical History (Updated 02/11/24 @ 10:[address] Yifan Rutledge MD) Acute alteration in mental status Acute respiratory failure with hypoxia Altered mental status Anemia Anemia Anemia Anxiety Atherosclerotic heart disease of [place] coronary artery without angina pectoris Atrial fibrillation Back pain Bradycardia Chest pain CHF (congestive heart failure) CHI (closed head injury) Congestive heart failure (CHF) COPD exacerbation Coronary artery disease Degenerative disc disease, lumbar Degenerative disk disease Delirium Diabetes Essential hypertension Fall Former smoker GERD (gastroesophageal reflux disease) Hallucinations HLD (hyperlipidemia) Hypertension Hypertensive urgency Hypoxia Lower extremity edema Macrocytic anemia On home oxygen therapy Orthostatic hypotension Parkinson's disease Presence of stent in coronary artery (~05/12/21) Short-term memory loss Syncope Vertigo Home Medications amlodipine 10 mg tablet 10 mg PO DAILY BLOOD PRESSURE 03/26/23 [History Last Taken Unknown] aspirin 81 mg tablet,delayed release (Bertin Low Dose Aspirin) 81 mg PO DAILY HEART HEALTH 08/16/23 [History Last Taken Unknown] atorvastatin 20 mg tablet 20 mg PO QHS CHOLESTEROL #90 tabs 08/16/23 [Rx Last Taken Unknown] albuterol sulfate 90 mcg/actuation aerosol inhaler 1 inh inhalation Q6H PRN SHORTNESS OF BREATH/WHEEZING #6.7 grams 10/02/23 [Rx Last Taken Unknown] acetaminophen 650 mg tablet,extended release (8 Hour Pain Reliever) 1,300 mg PO BID PRN PAIN 02/06/24 [History Last Taken Unknown] cyanocobalamin (vitamin B-12) 1,000 mcg tablet 1,000 mcg PO DAILY SUPPLEMENT 05/24 [History Last Taken Unknown] donepezil 5 mg tablet 5 mg PO QHS CONFUSION 02/06/24 [History Last Taken Unknown] folic acid 1 mg tablet 1 mg PO DAILY SUPPLEMENT 02/06/24 [History Last Taken Unknown] lisinopril 20 mg tablet 20 mg PO BID BLOOD PRESSURE 02/06/24 [History Last Taken Unknown] pantoprazole 40 mg tablet,delayed release 40 mg PO DAILY PRN GERD 02/06/24 [History Last Taken Unknown] Allergy/AdvReac Type Severity Reaction Status Date / Time No Known Allergies Allergy Verified 01/24/24 11:18 Family History unable to obtain Surgical History History of coronary artery stent placement Presence of coronary angioplasty implant and graft (~05/12/21) Social History household members: spouse housing: skilled nursing Smoking Status: Former smoker alcohol intake: never substance use type: does not use Physical Exam Narrative On BiPAP. Appears confused. Does not follow commands. Moving all 4 extremities. Heart sounds 1 and 2 noted. Chest with decreased breath sounds bilaterally. No ankle edema. Risk Stratification Risk Stratification Applicable: No Objective Data Vital Signs: Vital Signs Temp Pulse Resp BP Pulse Ox O2 Del Method O2 Flow Rate 97.9 F 46 L 15 178/83 H 100 Bi-pap 2 02/11/24 03:15 02/11/24 03:40 02/11/24 04:00 02/11/24 03:15 02/11/24 03:40 02/11/24 04:00 02/10/24 08:45 FiO2 30 02/11/24 03:40 Oxygen Flow Rate (L/min) 2 Oxygen Delivery Method Bi-pap Weight: 200 lb Body Mass Index (BMI) 29.5 Intake & Output: Intake and Output for Last 24 Hours 02/09/24 02/10/24 02/11/24 23:59 23:59 23:59 Intake Total 250 / 250 Output Total 1100 / 1100 400 / 400 Balance -1100 / -1100 -150 / -150 Lab / Micro Data 02/11/24 05:34 02/11/24 05:34 Labs: Laboratory Results - last 24 hr 02/11/24 05:34: WBC 4.5, RBC 3.23 L, Hgb 10.1 L, Hct 31.1 L, MCV 96.3 H, MCH 31.3, MCHC 32.5, RDW Std Deviation 56.5 H, RDW Coeff of Sophie 16.0 H, Plt Count 131 L, MPV 10.9, Immature Gran % (Auto) 0.400, Neut % (Auto) 80.2 H, Lymph % (Auto) 12.1 L, Bartholomew % (Auto) 7.3, Eos % (Auto) 0.0, Baso % (Auto) 0.0, Absolute Neuts (auto) 3.6, Absolute Lymphs (auto) 0.55 L, Nucleated RBC % 0, Sodium 145, Potassium 3.7, Chloride 111 H, Carbon Dioxide 32.0, Anion Gap 2 L, BUN 38 H, Creatinine 0.74, Estim Creat Clear Calc 83.35, Est GFR (MDRD) Af Amer 131, Est GFR (MDRD) Non-Af 109, BUN/Creatinine Ratio 51.5 H, Glucose 110 H, Calcium 9.1 Rhythm Strip Rhythm Strip: Sinus bradycardia Rate: 48 Ectopy: None Cardiology Labs/Tests 02/11/24 05:34: WBC 4.5, RBC 3.23 L, Hgb 10.1 L, Hct 31.1 L, MCV 96.3 H, MCH 31.3, MCHC 32.5, Plt Count 131 L, MPV 10.9, Immature Gran % (Auto) 0.400, Neut % (Auto) 80.2 H, Lymph % (Auto) 12.1 L, Bartholomew % (Auto) 7.3, Eos % (Auto) 0.0, Baso % (Auto) 0.0, Absolute Neuts (auto) 3.6, Nucleated RBC % 0, Sodium 145, Potassium 3.7, Chloride 111 H, Carbon Dioxide 32.0, Anion Gap 2 L, BUN 38 H, Creatinine 0.74, Est GFR (MDRD) Af Amer 131, Est GFR (MDRD) Non-Af 109, BUN/Creatinine Ratio 51.5 H, Glucose 110 H, Calcium 9.1 Rhythm: EKG: Sinus bradycardia with first-degree AV block. ECHO: Echocardiogram done in November of this month showed normal left ventricular systolic function. Ejection fraction 65%. Stress Test: Cardiac Cath: PCI: CT Surgery: Holter monitor: EPS: PPM: CXR: Chest CT Scan:
[2024-02-11] MEDS: Menthol/Lanolin/Calamine/Znox 113 GM Tube 1 APPLIC TOPICAL ×2 (10:16→21:30)
[2024-02-11] MEDS: amLODIPine 10 MG Tablet PO (10:16)
[2024-02-11] MEDS: Lisinopril 20 MG Tablet PO (10:16)
[2024-02-11] MEDS: Aspirin E.C. 81 MG Tablet PO (10:16)
[2024-02-11] MEDS: Nystatin Powder 15gm Bottle 1 APPLIC TOPICAL ×2 (10:16→21:30)
[2024-02-11] MEDS: Folic Acid 1 MG Tablet PO (10:16)
[2024-02-11] MEDS: predniSONE 20 MG Tablet 40 MG PO (10:19)
--- NOTE | 2024-02-11 13:28 | CASEMGMT ---
Social Work Maricel Acevedo has no male SNF beds at this time. SW called daughter Libia to let her know this and ask for additional choices. SW reviewed SNF list from [facility], in pt's preferred geographic area, insurance network and complete w/quality and resource use data. She would like referrals sent to 1. [facility] and 2. [facility]. SW or d/c business planner will send referrals. SHEKHAR Albrecht
--- NOTE | 2024-02-11 13:41 | CASEMGMT ---
Discharge Planning Referral sent via [facility] to [facility] and W. Lillian Hollis, Discharge Planning Asst.
[2024-02-11] MEDS: Ensure Plus High Protein 120 ML LIQUID PO ×2 (13:56→17:21)
[2024-02-11] MEDS: QUEtiapine 25 MG Tablet 50 MG PO (17:21)
--- NOTE | 2024-02-11 18:18 | PN.HOSP_ITS ---
Reason for Visit Reason for Visit: Diagnoses Essential (primary) hypertension (02/06/24) Atherosclerotic heart disease of [place] coronary artery without angina pectoris (02/06/24) Sick sinus syndrome (02/06/24) Difficulty in walking, not elsewhere classified (02/06/24) Disorientation, unspecified (02/06/24) Weakness (02/06/24) Adult failure to thrive (02/06/24) Unspecified fall, initial encounter (02/06/24) Subjective Subjective Patient was seen and examined today, she does not appear to be in any distress, she is alert and answers simple questions appropriately. Objective Data Objective Data Vital Signs: Vital Signs Temp Pulse Resp BP Pulse Ox O2 Del Method O2 Flow Rate 97.3 F L 45 L 18 157/64 H 94 Nasal Cannula 2 02/11/24 14:02 02/11/24 14:02 02/11/24 14:02 02/11/24 14:02 02/11/24 14:02 02/11/24 14:47 02/11/24 14:47 FiO2 30 02/11/24 03:40 Oxygen Flow Rate (L/min) 2 Oxygen Delivery Method Nasal Cannula Weight: 90.718 kg Body Mass Index (BMI) 29.5 Intake & Output: Intake and Output for Last 24 Hours 02/09/24 02/10/24 02/11/24 23:59 23:59 23:59 Intake Total 250 / 250 Output Total 1100 / 1100 400 / 400 150 / 150 Balance -1100 / -1100 -150 / -150 -150 / -150 Lab / Micro Data 02/11/24 05:34 02/11/24 05:34 Labs: Laboratory Results - last 24 hr 02/11/24 05:34: WBC 4.5, RBC 3.23 L, Hgb 10.1 L, Hct 31.1 L, MCV 96.3 H, MCH 31.3, MCHC 32.5, RDW Std Deviation 56.5 H, RDW Coeff of Sophie 16.0 H, Plt Count 131 L, MPV 10.9, Immature Gran % (Auto) 0.400, Neut % (Auto) 80.2 H, Lymph % (Auto) 12.1 L, [place] % (Auto) 7.3, Eos % (Auto) 0.0, Baso % (Auto) 0.0, Absolute Neuts (auto) 3.6, Absolute Lymphs (auto) 0.55 L, Nucleated RBC % 0, Sodium 145, Potassium 3.7, Chloride 111 H, Carbon Dioxide 32.0, Anion Gap 2 L, BUN 38 H, Creatinine 0.74, Estim Creat Clear Calc 83.35, Est GFR (MDRD) Af Amer 131, Est GFR (MDRD) Non-Af 109, BUN/Creatinine Ratio 51.5 H, Glucose 110 H, Calcium 9.1 Rhythm Strip Rhythm Strip: Sinus bradycardia Rate: 48 Ectopy: None Physical Exam Const alert and no apparent distress General Appearance: cooperative, well kempt and well developed Orientation / Consciousness: awake, oriented to person and oriented to place HEENT normocephalic, head/scalp atraumatic and moist oral mucous membranes Eyes PERRL, EOMs intact bilaterally and conjunctivae normal Neck supple, no JVD, thyroid normal and no carotid bruits General: trachea midline Resp normal respiratory effort, no retractions, no use of accessory muscles and clear to auscultation bilaterally Auscultation: Negative for rales, rhonchi or wheezes Cardio regular rate, regular rhythm, S1 normal heart sound, S2 normal heart sound, no murmurs, no rub and no gallops GI normal to inspection, nondistended, normoactive bowel sounds, soft to palpation, non-tender and non-distended Extremity no clubbing, cyanosis or edema Skin no rashes or lesions noted General Skin Exam: no breakdown Neuro CN's II-XII intact bilaterally, moves all extremities, no focal motor deficits and no sensory deficits noted Sensorium / Orientation: awake, alert, oriented to person and oriented to place Speech: speech normal Psych affect normal Assessment & Plan Assessment/Plan (1) Generalized weakness: PLAN: Plan 1. Acute debility secondary to advanced age and multiple medical problems including chronic obstructive pulmonary disease, essential hypertension, and paroxysmal A-fib-PT and OT are seeing patient, we are awaiting approval for pepper baltazar to go to an extended care facility for short-term rehab services #2 COPD exacerbation with metabolic encephalopathy-continue present medications including aerosol treatments and corticosteroids, complicates care, management, recovery, and prognosis #3 paroxysmal [id number] was seen by cardiology today due to bradycardia, patient's amlodipine was discontinued and he was started on nifedipine #4 hypoxia secondary to COPD exacerbation-pulse ox will be monitored, oxygen will be adjusted accordingly Total clinical time spent by myself addressing the patient's medical issues, reviewing all of his data, and collaborating with patient's care team: 35 minutes Charges/Coding Visit Charges Inpatient E&M: 59879 Subs Hosp L2
[2024-02-11] MEDS: 0.9% Saline Lock 10 ML Syringe IV (22:07)
[2024-02-12] VITALS (8 sets, daily range): BP systolic 111–154; BP diastolic 57–93; PULSE 36–54; RESP 12–18; TEMP 36.4–36.9; O2SAT 94–99
[2024-02-12] MEDS: Heparin Injection (Vial) 5,000 UNIT/ML VIAL 5000 UNIT SC ×3 (06:17→21:44)
--- NOTE | 2024-02-12 08:18 | CASEMGMT ---
Discharge Planning Insurance card sent to [facility] per request. They initially stated that they aren't in network but feel like they may be in network with certain plans. Lillian Hollis, Discharge Planning Asst.
[2024-02-12] MEDS: predniSONE 20 MG Tablet 40 MG PO (09:03)
[2024-02-12] MEDS: Aspirin E.C. 81 MG Tablet PO (09:03)
[2024-02-12] MEDS: Folic Acid 1 MG Tablet PO (09:03)
[2024-02-12] MEDS: NIFEdipine 60 MG Tablet PO (09:04)
[2024-02-12] MEDS: Menthol/Lanolin/Calamine/Znox 113 GM Tube 1 APPLIC TOPICAL ×2 (09:04→21:44)
[2024-02-12] MEDS: Nystatin Powder 15gm Bottle 1 APPLIC TOPICAL ×2 (09:04→21:45)
[2024-02-12] MEDS: Lisinopril 20 MG Tablet PO (09:04)
--- NOTE | 2024-02-12 14:17 | CASEMGMT ---
Addendum entered by Lillian Hollis 02/12/24 14:49: Patient has been accepted by [facility] and precert will be submitted today. Lillian Hollis, Discharge Planning Asst. Original Note: Discharge Planning CC verified that they are in network with patients insurance plan. Updates sent. Awaiting response. Lillian Hollis, Discharge Planning
--- NOTE | 2024-02-12 19:09 | PN.HOSP_ITS ---
Reason for Visit Reason for Visit: Diagnoses Essential (primary) hypertension (02/06/24) Atherosclerotic heart disease of [place] coronary artery without angina pectoris (02/06/24) Sick sinus syndrome (02/06/24) Difficulty in walking, not elsewhere classified (02/06/24) Disorientation, unspecified (02/06/24) Weakness (02/06/24) Adult failure to thrive (02/06/24) Unspecified fall, initial encounter (02/06/24) Subjective Subjective Patient was seen and examined today, he appears somnolent and lethargic, I have elected to reduce his Seroquel dosage to 25 mg nightly. Objective Data Objective Data Vital Signs: Vital Signs Temp Pulse Resp BP Pulse Ox O2 Del Method O2 Flow Rate 97.7 F L 46 L 18 119/57 L 97 Room Air 2 02/12/24 14:30 02/12/24 14:30 02/12/24 14:30 02/12/24 14:30 02/12/24 14:30 02/12/24 14:30 02/11/24 14:47 FiO2 30 02/12/24 05:45 Oxygen Flow Rate (L/min) 2 Oxygen Delivery Method Room Air Weight: 90.718 kg Body Mass Index (BMI) 29.5 Intake & Output: Intake and Output for Last 24 Hours 02/10/24 02/11/24 02/12/24 23:59 23:59 23:59 Intake Total 250 / 250 240 / 240 Output Total 400 / 400 400 / 400 500 / 500 Balance -150 / -150 -400 / -400 -260 / -260 Lab / Micro Data 02/11/24 05:34 02/11/24 05:34 Rhythm Strip Rhythm Strip: Sinus bradycardia Rate: 48 Ectopy: None Physical Exam Narrative Patient appears somnolent but in no distress General Appearance: Well-developed Orientation / Consciousness: At the time my examination, patient is somnolent HEENT normocephalic, head/scalp atraumatic and moist oral mucous membranes Eyes PERRL, EOMs intact bilaterally and conjunctivae normal Neck supple, no JVD, thyroid normal and no carotid bruits General: trachea midline Resp normal respiratory effort, no retractions, no use of accessory muscles and clear to auscultation bilaterally Auscultation: Negative for rales, rhonchi or wheezes Cardio regular rate, regular rhythm, S1 normal heart sound, S2 normal heart sound, no murmurs, no rub and no gallops GI normal to inspection, nondistended, normoactive bowel sounds, soft to palpation, non-tender and non-distended Extremity no clubbing, cyanosis or edema Skin no rashes or lesions noted General Skin Exam: no breakdown Neuro Patient is somnolent, he responds to painful stimuli, he does not carry on conversation Psych Patient is somnolent Assessment & Plan Assessment/Plan (1) Confusion: (2) Generalized weakness: PLAN: Plan 1. Acute debility secondary to advanced age and multiple medical problems including chronic obstructive pulmonary disease, essential hypertension, and paroxysmal A-fib-PT and OT are seeing patient, we are awaiting approval for patient to go to an extended care facility for short-term rehab services #2 COPD exacerbation with metabolic encephalopathy-continue present medications including aerosol treatments and corticosteroids-I have elected to decrease his dose of prednisone at this time, complicates care, management, recovery, and prognosis #3 paroxysmal [id number] was seen by cardiology today due to bradycardia, patient's amlodipine was discontinued and he was started on nifedipine #4 hypoxia secondary to COPD exacerbation-pulse ox will be monitored, oxygen will be adjusted accordingly, patient is currently on room air #5 somnolence-probably secondary to Seroquel, the dosage will be decreased tonight #6 history of cognitive impairment-I talked with the patient's daughter by phone today, she states that the patient has had hallucinations since 2018, this is never been worked up fully and so there is no diagnosis confirmed for dementia at this time. She did confirm that he has some cognitive impairment however. #7 essential hypertension-patient's daughter states that the patient only takes lisinopril once a day, I have reduced the dosage to once a day Total clinical time spent by myself addressing the patient's medical issues, reviewing all of his data, and collaborating with patient's care team: 35 minutes Charges/Coding Visit Charges Inpatient E&M: 55840 Subs Hosp L2
[2024-02-12] MEDS: Atorvastatin Calcium 20 MG Tablet PO (21:44)
[2024-02-12] MEDS: QUEtiapine 25 MG Tablet PO (21:45)
[2024-02-12] MEDS: 0.9% Saline Lock 10 ML Syringe IV (21:48)
[2024-02-13] VITALS (10 sets, daily range): BP systolic 103–151; BP diastolic 55–80; PULSE 45–60; RESP 12–20; TEMP 36.6–36.9; O2SAT 96–100
[2024-02-13] MEDS: Heparin Injection (Vial) 5,000 UNIT/ML VIAL 5000 UNIT SC ×3 (05:52→21:05)
[2024-02-13] MEDS: Folic Acid 1 MG Tablet PO (08:13)
[2024-02-13] MEDS: Menthol/Lanolin/Calamine/Znox 113 GM Tube 1 APPLIC TOPICAL ×2 (08:13→21:06)
[2024-02-13] MEDS: Aspirin E.C. 81 MG Tablet PO (08:13)
[2024-02-13] MEDS: predniSONE 20 MG Tablet PO (08:13)
[2024-02-13] MEDS: Nystatin Powder 15gm Bottle 1 APPLIC TOPICAL ×2 (08:14→21:06)
[2024-02-13] MEDS: NIFEdipine 60 MG Tablet PO (08:14)
[2024-02-13] MEDS: Lisinopril 20 MG Tablet PO (08:15)
--- NOTE | 2024-02-13 16:11 | CASEMGMT ---
Social Work Phone call to pt's dgt Urban and notified that [facility] has accepted pt and precert is pending at this time. LARISSA Josue
--- NOTE | 2024-02-13 16:49 | PN.HOSP_ITS ---
Reason for Visit Reason for Visit: Diagnoses Essential (primary) hypertension (02/06/24) Atherosclerotic heart disease of [place] coronary artery without angina pectoris (02/06/24) Sick sinus syndrome (02/06/24) Difficulty in walking, not elsewhere classified (02/06/24) Disorientation, unspecified (02/06/24) Weakness (02/06/24) Adult failure to thrive (02/06/24) Unspecified fall, initial encounter (02/06/24) Subjective Subjective Patient was seen and examined today, he did not appear in any distress but he appeared lethargic still, I made the decision to stop his Seroquel. Objective Data Objective Data Vital Signs: Vital Signs Temp Pulse Resp BP Pulse Ox O2 Del Method O2 Flow Rate 97.8 F 60 18 116/59 L 100 Nasal Cannula 2 02/13/24 15:00 02/13/24 15:20 02/13/24 15:20 02/13/24 15:00 02/13/24 15:20 02/13/24 15:20 02/13/24 15:20 FiO2 30 02/13/24 05:52 Oxygen Flow Rate (L/min) 2 Oxygen Delivery Method Nasal Cannula Weight: 90.718 kg Body Mass Index (BMI) 29.5 Intake & Output: Intake and Output for Last 24 Hours 02/11/24 02/12/24 02/13/24 23:59 23:59 23:59 Intake Total 240 / 340 400 / 400 Output Total 400 / 400 500 / 750 450 / 450 Balance -400 / -400 -260 / -410 -50 / -50 Lab / Micro Data 02/11/24 05:34 02/11/24 05:34 Rhythm Strip Rhythm Strip: Sinus bradycardia Rate: 48 Ectopy: None Physical Exam Narrative Patient appears somnolent but in no distress General Appearance: Well-developed Orientation / Consciousness: At the time my examination, patient is somnolent HEENT normocephalic, head/scalp atraumatic and moist oral mucous membranes Eyes PERRL, EOMs intact bilaterally and conjunctivae normal Neck supple, no JVD, thyroid normal and no carotid bruits General: trachea midline Resp normal respiratory effort, no retractions, no use of accessory muscles and clear to auscultation bilaterally Auscultation: Negative for rales, rhonchi or wheezes Cardio regular rate, regular rhythm, S1 normal heart sound, S2 normal heart sound, no murmurs, no rub and no gallops GI normal to inspection, nondistended, normoactive bowel sounds, soft to palpation, non-tender and non-distended Extremity no clubbing, cyanosis or edema Skin no rashes or lesions noted General Skin Exam: no breakdown Neuro Patient is somnolent, he responds to painful stimuli, he does not carry on conversation Psych Patient is somnolent Assessment & Plan Assessment/Plan (1) History of diabetes mellitus: (2) Confusion: (3) Generalized weakness: PLAN: Plan 1. Acute debility secondary to advanced age and multiple medical problems including chronic obstructive pulmonary disease, essential hypertension, and paroxysmal A-fib-PT and OT are seeing patient, we are awaiting approval for patient to go to an extended care facility for short-term rehab services #2 COPD exacerbation with metabolic encephalopathy-continue present medications including aerosol treatments and corticosteroids-I have elected to decrease his dose of prednisone at this time, complicates care, management, recovery, and prognosis #3 paroxysmal [id number] was seen by cardiology today due to bradycardia, patient's amlodipine was discontinued and he was started on nifedipine #4 hypoxia secondary to COPD exacerbation-pulse ox will be monitored, oxygen will be adjusted accordingly, patient is currently on room air #5 somnolence-probably secondary to Seroquel, the dosage will be decreased tonight #6 history of cognitive impairment-I talked with the patient's daughter by phone today, she states that the patient has had hallucinations since 2018, this is never been worked up fully and so there is no diagnosis confirmed for dementia at this time. She did confirm that he has some cognitive impairment however. #7 essential hypertension-patient's daughter states that the patient only takes lisinopril once a day, I have reduced the dosage to once a day Total clinical time spent by myself addressing the patient's medical issues, reviewing all of his data, and collaborating with patient's care team: 35 minutes
[2024-02-13] MEDS: QUEtiapine 25 MG Tablet PO (21:05)
[2024-02-13] MEDS: Atorvastatin Calcium 20 MG Tablet PO (21:13)
[2024-02-14] VITALS (7 sets, daily range): BP systolic 124–165; BP diastolic 48–76; PULSE 52–62; RESP 12–18; TEMP 35.8–36.7; O2SAT 95–100
[2024-02-14] MEDS: Heparin Injection (Vial) 5,000 UNIT/ML VIAL 5000 UNIT SC (06:28)
--- NOTE | 2024-02-14 08:17 | CASEMGMT ---
Discharge Planning Updates sent to [facility] via [employer]. Lillian Hollis, Discharge Planning Asst.
--- NOTE | 2024-02-14 09:04 | CASEMGMT ---
Discharge Planning [facility] has obtained precert for patient to admit. SW updated. Lillian Hollis DC Planning Asst.
[2024-02-14] MEDS: Aspirin E.C. 81 MG Tablet PO (09:38)
[2024-02-14] MEDS: Menthol/Lanolin/Calamine/Znox 113 GM Tube 1 APPLIC TOPICAL (09:39)
[2024-02-14] MEDS: predniSONE 20 MG Tablet PO (09:39)
[2024-02-14] MEDS: Nystatin Powder 15gm Bottle 1 APPLIC TOPICAL (09:39)
[2024-02-14] MEDS: Folic Acid 1 MG Tablet PO (09:39)
[2024-02-14] MEDS: NIFEdipine 60 MG Tablet PO (09:40)
[2024-02-14] MEDS: Lisinopril 20 MG Tablet PO (09:40)
--- NOTE | 2024-02-14 09:44 | PCM.TXEXTCAR ---
Diet Diet Order/Speech Therapy: 02/11/24 13:29 Diet: Regular - General Food consistency:: Pureed Liquid Consistency:: Regular/Thin Is pt able to select menu?: No Diet Comments: total feed/close sup; feed only if alert, meds in Routine Orders/Code Status O2 Liters per Minute: 3 O2 Frequency: Continuous Keep PO Greater than or Equal to (%): 90 Code Status: DNRCC-A (intubation) Wound(s) BUE: Wound Type: Abrasion Therapies Weight Bearing: Weight bearing as tolerated Physical Therapy: Eval and Treat Occupational Therapy: Eval and Treat Problem/Diagnosis (1) History of diabetes mellitus: Status: Acute Code(s): Z86.39 - Personal history of other endocrine, nutritional and metabolic disease (2) Confusion: Status: Acute Code(s): R41.0 - Disorientation, unspecified (3) Generalized weakness: Status: Acute Code(s): R53.1 - Weakness Plan 1. Acute debility secondary to advanced age and multiple medical problems including chronic obstructive pulmonary disease, essential hypertension, and paroxysmal A-fib-PT and OT are seeing patient, we are awaiting approval for patient to go to an extended care facility for short-term rehab services #2 COPD exacerbation with metabolic encephalopathy-continue present medications including aerosol treatments and corticosteroids-I have elected to decrease his dose of prednisone at this time, complicates care, management, recovery, and prognosis #3 paroxysmal [id number] was seen by cardiology due to bradycardia, patient's amlodipine was discontinued and he was started on nifedipine #4 hypoxia secondary to COPD exacerbation-pulse ox will be monitored, oxygen will be adjusted accordingly, patient is currently on room air #5 somnolence-probably secondary to Seroquel, Seroquel was stopped today #6 history of cognitive impairment-type unknown, no firm diagnosis of dementia at this time #7 essential hypertension-patient's daughter states that the patient only takes lisinopril once a day, I have reduced the dosage to once a day Total clinical time spent by myself addressing the patient's medical issues, reviewing all of his data, and collaborating with patient's care team: 35 minutes Allergies/Procedures Done in Hospital Allergies No Known Allergies Allergy (Verified 01/24/24 11:18) Procedures: None Type of Care/Length of Stay Estimated LOS: Convalescent Care Less Than 30 days Type of Care Needed: Skilled Rehab Potential: Good Prognosis: Good Additional Orders/Day of Discharge H&P will serve as current which was dated: 02/06/24 Day of Discharge: 02/14/24 Dietary and Speech Recommendations Dietitian Recommendations/Changes: Liberalize diet to Regular/ puree (or consistency per SYSTEMS ADMIN) d/t hx wt loss Will order 4 oz ensure plus high protein tid w/ medpass for increased nutrition if consumed. Discharge Plan Admission Admit Date/Time: 02/06/24 11:21 Primary Reason for Your Visit: exac of COPD, debility Attending Provider: Lon Avendano Primary Care Provider: Jasson England Consulting Providers: Alvin Melgar; Yifan Rutledge Discharge Orders/Prescriptions Prescriptions: New albuterol sulfate 2.5 mg /3 mL (0.083 %) Solution For Nebulization 2.5 mg inhalation Q6H PRN (Reason: SHORTNESS OF BREATH/WHEEZING ) Qty: 0 0RF lisinopril 20 mg Tablet 20 mg PO DAILY Qty: 0 0RF prednisone 20 mg Tablet 20 mg PO BREAKFAST Qty: 0 0RF Rx Instructions: 1 daily for 5 days starting 02/15/2024 then discontinue nifedipine 60 mg Tablet Extended Release 24hr 60 mg PO DAILY Qty: 0 0RF pantoprazole 40 mg Tablet,Delayed Release (Dr/Ec) 40 mg PO DAILY Qty: 0 0RF folic acid 1 mg Tablet 1 mg PO DAILYCM Qty: 0 0RF nystatin [Nyamyc] 100,000 unit/gram Powder 1 applic topical BID Qty: 0 0RF Protocol: *Topical Application Instructions APPLICATION INSTRUCTIONS: apply to groin menthol-zinc oxide [Calmoseptine] 0.44-20.6 % Ointment 1 applic topical BID Qty: 0 0RF Protocol: *Topical Application Instructions APPLICATION INSTRUCTIONS: apply to coccyx and bilateral buttocks Ensure Plus High Protein 0.08 gram-1.5 kcal/mL Liquid 120 ml PO 4X/DAY Qty: 0 0RF Continued atorvastatin 20 mg tablet 20 mg PO QHS Qty: 90 3RF aspirin [Bertin Low Dose Aspirin] 81 mg tablet,delayed release (DR/EC) 81 mg PO DAILY cyanocobalamin (vitamin B-12) 1,000 mcg tablet 1,000 mcg PO DAILY Discontinued albuterol sulfate 90 mcg/actuation HFA aerosol inhaler 1 inh inhalation Q6H PRN (Reason: SHORTNESS OF BREATH/WHEEZING ) Qty: 6.7 0RF lisinopril 20 mg tablet 20 mg PO BID acetaminophen [8 Hour Pain Reliever] 650 mg tablet extended release 1,300 mg PO BID PRN (Reason: PAIN ) donepezil 5 mg tablet 5 mg PO QHS folic acid 1 mg tablet 1 mg PO DAILY pantoprazole 40 mg tablet,delayed release (DR/EC) 40 mg PO DAILY PRN (Reason: GERD ) amlodipine 10 mg tablet 10 mg PO DAILY Referrals / Follow Up: Jasson England MD [Primary Care Provider] - Disposition Disposition (needs filled in before D/C Order can be placed): Long Term Facility
[2024-02-14] MEDS: Ensure Plus High Protein 120 ML LIQUID PO (09:53)
--- NOTE | 2024-02-14 10:02 | PCM.DC.SUM ---
Providers Date of Admission: 02/06/24 Date of Discharge: 02/14/24 Primary Care Physician: Dr. Jasson England MD Consultations 02/11/24 00:53 Consult: Cardiology Routine Consulting Provider: Yifan Rutledge Reason for Consult: persistent severe bradycardia likely d/t SSS EMERGENT Consult: No MD Notified: Yes Date Notified: 02/11/24 Time Notified: 07:28 Method of Notification: Text Reason For Visit: DEBILITY Diagnosis Discharge Diagnosis (1) History of diabetes mellitus: Status: Acute Code(s): Z86.39 - Personal history of other endocrine, nutritional and metabolic disease (2) Confusion: Status: Acute Code(s): R41.0 - Disorientation, unspecified (3) Generalized weakness: Status: Acute Code(s): R53.1 - Weakness Plan 1. Acute debility secondary to advanced age and multiple medical problems including chronic obstructive pulmonary disease, essential hypertension, and paroxysmal A-fib-PT and OT are seeing patient, we are awaiting approval for patient to go to an extended care facility for short-term rehab services #2 COPD exacerbation with metabolic encephalopathy-continue present medications including aerosol treatments and corticosteroids-I have elected to decrease his dose of prednisone at this time, complicates care, management, recovery, and prognosis #3 paroxysmal [id number] was seen by cardiology due to bradycardia, patient's amlodipine was discontinued and he was started on nifedipine #4 hypoxia secondary to COPD exacerbation-pulse ox will be monitored, oxygen will be adjusted accordingly, patient is currently on room air #5 somnolence-probably secondary to Seroquel, Seroquel was stopped today #6 history of cognitive impairment-type unknown, no firm diagnosis of dementia at this time #7 essential hypertension-patient's daughter states that the patient only takes lisinopril once a day, I have reduced the dosage to once a day Total clinical time spent by myself addressing the patient's medical issues, reviewing all of his data, and collaborating with patient's care team: 35 minutes Medications at Discharge Home Medications aspirin 81 mg tablet,delayed release (Bertin Low Dose Aspirin) 81 mg PO DAILY HEART HEALTH 08/16/23 atorvastatin 20 mg tablet 20 mg PO QHS CHOLESTEROL #90 tabs 08/16/23 cyanocobalamin (vitamin B-12) 1,000 mcg tablet 1,000 mcg PO DAILY SUPPLEMENT 02/06/24 albuterol sulfate 2.5 mg/3 mL (0.083 %) solution for nebulization 2.5 mg (3 mL) inhalation Q6H PRN SHORTNESS OF BREATH/WHEEZING #0 mL 02/14/24 folic acid 1 mg tablet 1 mg PO DAILYCM #0 tabs 02/14/24 food supplemt, lactose-reduced 0.08 gram-1.5 kcal/mL oral liquid (Ensure Plus High Protein) 120 ml PO 4X/DAY #0 mL 02/14/24 lisinopril 20 mg tablet 20 mg PO DAILY #0 tabs 02/14/24 nifedipine 60 mg tablet,extended release 24 hr 60 mg PO DAILY #0 tabs 02/14/24 prednisone 20 mg tablet 20 mg PO BREAKFAST #0 tabs 02/14/24 omeprazole 20 mg capsule,delayed release 20 mg PO DAILY 02/16/24 Hospital Course Operations None Procedures None Summary of Care Provided Minutes Spent on Discharge: 32 Hospital Course: This 78-year-old white male was seen in the emergency room at [facility] after being brought in by squad after he suffered a mechanical fall at home and was unable to get up on his own. Patient appeared lethargic, patient's pulse ox was noted to be low on room air and he was placed on BiPAP. CT of the brain did not show any acute pathology. Patient was admitted to [place] [id number], he was placed on steroids and aerosol treatments, BiPAP was continued briefly and patient was transitioned to nasal cannula oxygen, he was seen by PT and OT, it was felt he would benefit from short-term placement in a correction facility for rehab services. On 02/14/2024, patient was seen and examined: On examination he appeared mildly lethargic. Vital signs as documented. Skin warm and dry and without overt rashes. Neck without JVD, neck was supple, trachea midline, thyroid was normal. Lungs clear bilaterally, normal air movement was noted. Heart exam notable for regular rhythm, normal sounds and absence of murmurs, rubs or gallops. Abdomen unremarkable and without evidence of organomegaly, masses, or abdominal aortic enlargement. Bowel sounds are present, abdomen is not distended. Extremities nonedematous, no cyanosis was noted, no clubbing was noted. Neuro: Cranial nerves II through XII are grossly intact, no focal motor deficits were noted, sensation to light touch and pinprick intact, motor exam 5/5 throughout. Psych: Patient is alert but slightly lethargic Patient was transferred to a correction facility in stable condition on 02/14/2024. Weight / BMI Weight Weight: 90.718 kg Body Mass Index (BMI) 29.5 ABG / Lab / Microbiology Data 02/11/24 05:34 02/11/24 05:34 Meaningful Use Info Meaningful Use Meaningful Use Diagnoses (Choose all that apply): None applicable Ischemic Stroke Statin Dosing Therapy Reference: STATIN DOSE THERAPY REFERENCE: * Patients > 75 years receive moderate or high dose statin therapy. * Patients 75 years or YOUNGER should receive HIGH intensity statin dose unless contraindicated. You will be required to document reason for non-treatment if statin daily dose does not meet guidelines. HIGH DOSE STATIN THERAPY DAILY Atorvastatin > than or = to 40 mg Rosuvastatin > than or = to 20 mg Amlodipine + Atorvastatin > than or = to 2.5/40 mg Ezetimibe + Simvastatin 10/80 mg Simvastatin 80mg Discharge Plan Admission Admit Date/Time: 02/06/24 11:21 Primary Reason for Your Visit: exac of COPD, debility Attending Provider: Lon Avendano Primary Care Provider: Jasson England Consulting Providers: Alvin Melgar; Yifan Rutledge Discharge Orders/Prescriptions Prescriptions: New albuterol sulfate 2.5 mg /3 mL (0.083 %) Solution For Nebulization 2.5 mg inhalation Q6H PRN (Reason: SHORTNESS OF BREATH/WHEEZING ) Qty: 0 0RF lisinopril 20 mg Tablet 20 mg PO DAILY Qty: 0 0RF prednisone 20 mg Tablet 20 mg PO BREAKFAST Qty: 0 0RF Rx Instructions: 1 daily for 5 days starting 02/15/2024 then discontinue nifedipine 60 mg Tablet Extended Release 24hr 60 mg PO DAILY Qty: 0 0RF folic acid 1 mg Tablet 1 mg PO DAILYCM Qty: 0 0RF Ensure Plus High Protein 0.08 gram-1.5 kcal/mL Liquid 120 ml PO 4X/DAY Qty: 0 0RF Continued atorvastatin 20 mg tablet 20 mg PO QHS Qty: 90 3RF aspirin [Bertin Low Dose Aspirin] 81 mg tablet,delayed release (DR/EC) 81 mg PO DAILY cyanocobalamin (vitamin B-12) 1,000 mcg tablet 1,000 mcg PO DAILY Discontinued albuterol sulfate 90 mcg/actuation HFA aerosol inhaler 1 inh inhalation Q6H PRN (Reason: SHORTNESS OF BREATH/WHEEZING ) Qty: 6.7 0RF lisinopril 20 mg tablet 20 mg PO BID acetaminophen [8 Hour Pain Reliever] 650 mg tablet extended release 1,300 mg PO BID PRN (Reason: PAIN ) donepezil 5 mg tablet 5 mg PO QHS folic acid 1 mg tablet 1 mg PO DAILY pantoprazole 40 mg tablet,delayed release (DR/EC) 40 mg PO DAILY PRN (Reason: GERD ) amlodipine 10 mg tablet 10 mg PO DAILY No Action omeprazole 20 mg capsule,delayed release(DR/EC) 20 mg PO DAILY Referrals / Follow Up: Jasson England MD [Primary Care Provider] - Disposition Disposition (needs filled in before D/C Order can be placed): Retirement Facility Charges/Coding Visit Charges Inpatient E&M: 11462 Disch Hosp >30min
--- NOTE | 2024-02-14 10:34 | CASEMGMT ---
Social Work We did receive precert for pt to go to [facility] today. DEVANTE Susanne completed the hospital exemption in the [facility] system, and sent the discharge orders to [facility] via [facility]. DEVANTE set up [facility] for 12:30pm. SW called [facility], let them know the time and also left a message for admissions with the time. DEVANTE let pt's bedside RN know the pickup time. Pt asleep at present. DEVANTE called daughter Libia, let her know we have precert and pt going to [facility] today at 12:30 pm, daughter in agreement. Pt to [facility], skilled, today. No further needs are anticipated at this time. SHEKHAR Albrecht
--- NOTE | 2024-02-14 11:09 | NURSING ---
This nurse called [facility] and gave report to a nurse named Lillian
== END 2024-02-14 11:30 | disposition skilled nursing facility (03) | DRG 190 ==
LOC: ED 09:59 → MS3 02-07 09:17
PROVIDERS: Admitting Provider Family Medicine; Emergency Provider Emergency Medicine; PCP Family Medicine; Visit Provider Internal Medicine
DX: J44.1 Chronic obstructive pulmonary disease with (acute) exacerbation (principal); G93.41 Metabolic encephalopathy; I49.5 Sick sinus syndrome; R62.7 Adult failure to thrive; R54 Age-related physical debility; I10 Essential (primary) hypertension; I48.0 Paroxysmal atrial fibrillation; I25.10 Atherosclerotic heart disease of native coronary artery without angina pectoris; K21.9 Gastro-esophageal reflux disease without esophagitis; E78.5 Hyperlipidemia, unspecified; I44.0 Atrioventricular block, first degree; R29.6 Repeated falls; R09.02 Hypoxemia; R06.89 Other abnormalities of breathing; Z68.29 Body mass index [BMI] 29.0-29.9, adult; Z95.5 Presence of coronary angioplasty implant and graft; Z79.82 Long term (current) use of aspirin; Z79.899 Other long term (current) drug therapy; Z87.891 Personal history of nicotine dependence
CPT/HCPCS: 36415; 36600; 70450; 71045; 73502; 80048; 81001; 82803; 85025; 92526; 92610; 93005; 94002; 94003; 94762; 97110; 97162; 97166; 97530; 97535; 99285; A4216

== ENCOUNTER 2024-02-16 19:26 | Emergency (ER) | payer MEDICARE, SELFPAY ==
[2024-02-16] VITALS (8 sets, daily range): BP systolic 87–162; BP diastolic 52–78; PULSE 55–63; RESP 14–18; TEMP 36.1–37.1; O2SAT 92–96; BMI 28.1
--- NOTE | 2024-02-16 19:43 | CT_ITS ---
INDICATION: altered mental status EXAMINATION: CT BRAIN - CT Head or Brain W/O Contrast Injection TECHNIQUE: Multiple axial images were obtained of the head without intravenous contrast. The protocol utilizes one or more of the following dose reduction techniques: automated exposure control, adjustment of mA and/or kV according to patient size,and/or use of iterative reconstruction technique. IV Contrast dosage and agent: None. RADIATION DOSAGE (If Supplied By Facility): CTDIvol = ( 44.99 ) mGy, DLP = ( 829.85 ) mGycm COMPARISON: Prior study dated: 02/06/2024 FINDINGS: BRAIN PARENCHYMA: No intra- or extra-axial hemorrhage. No evidence of acute infarct. No intracranial mass or mass effect. There is preservation of the aggarwal/white matter interface. Mild periventricular deep white matter changes likely due to microvascular disease. Posterior fossa structures are unremarkable. Atherosclerotic calcifications of the cavernous internal carotid arteries. CSF SPACES: Moderate diffuse atrophy. No hydrocephalus. Basal cisterns are patent. CALVARIUM, SKULL BASE, PARANASAL SINUSES AND MASTOID AIR CELLS: Clear. No discrete lytic or blastic abnormalities. ORBITS: Both globes, extraocular muscles, optic nerves and retrobulbar fat appear unremarkable. ASPECTS Score for Acute Strokes: 10 CT/Brain/Head without Contrast IMPRESSION: 1. No acute intracranial process. 2. Chronic involutional changes of the brain. Electronically Signed: Jose Snider MD at 20:50 EDT ,
--- NOTE | 2024-02-16 19:44 | EKG12_ITS ---
Test Reason : DYSRHTHMIA Blood Pressure : / mmHG Vent. Rate : 058 BPM Atrial Rate : 058 BPM P-R Int : 354 ms QRS Dur : 086 ms QT Int : 422 ms P-R-T Axes : 069 014 018 degrees QTc Int : 414 ms Sinus bradycardia with 1st degree A-V block Nonspecific ST and T wave abnormality Abnormal ECG Confirmed by Clifton Grant ([id number]), associate entertainment editor AMARIS CASTORENA ([id number]) on 02/18/2024 9:00:46 AM Referred By: Confirmed By:Clifton rGant
--- NOTE | 2024-02-16 19:47 | EDS_ITS ---
HPI History of Present Illness Chief Complaint: Alt LOC Narrative Narrative: 78-year-old male presenting with altered mental status. Apparently he was recently discharged from [facility] with metabolic encephalopathy. Patient's daughter states that he has alternating mental status. She states that today he was able to speak to her and walk up to the [place] in the sun. After the nursing facility put him to bed he woke up altered. She states that he previously had hallucinations at home and was post to see neurology at some point but had a fall and has been debilitated since. Patient is not able to give any history. There is no history of falls. Patient's daughter states he is not on any blood thinners. She states that he has been coughing and is currently concerned he might have pneumonia. [facility] Medical History Bradycardia Fall Acute alteration in mental status CHI (closed head injury) Anemia Essential hypertension Degenerative disk disease Congestive heart failure (CHF) On home oxygen therapy Atrial fibrillation Coronary artery disease Chest pain Lower extremity edema Macrocytic anemia Hallucinations Short-term memory loss Hypoxia Hypertensive urgency Anemia CHF (congestive heart failure) COPD exacerbation Acute respiratory failure with hypoxia Syncope Delirium Orthostatic hypotension Presence of stent in coronary artery (~05/12/21) Atherosclerotic heart disease of [place] coronary artery without angina pectoris HLD (hyperlipidemia) Anemia Vertigo Degenerative disc disease, lumbar Anxiety Diabetes GERD (gastroesophageal reflux disease) Former smoker Parkinson's disease Altered mental status Back pain Hypertension Home Medications ?Medication ?Instructions ?Recorded ?Last Taken ?Type aspirin 81 mg tablet,delayed 81 mg PO DAILY HEART HEALTH 08/16/23 02/16/24 History release (Bertin Low Dose Aspirin) atorvastatin 20 mg tablet 20 mg PO QHS CHOLESTEROL #90 tabs 08/16/23 Unknown Rx cyanocobalamin (vitamin B-12) 1,000 mcg PO DAILY SUPPLEMENT 02/06/24 Unknown History 1,000 mcg tablet albuterol sulfate 2.5 mg/3 mL 2.5 mg (3 mL) inhalation Q6H PRN 02/14/24 Unknown Rx (0.083 %) solution for nebulization SHORTNESS OF BREATH/WHEEZING #0 mL folic acid 1 mg tablet 1 mg PO DAILYCM #0 tabs 02/14/24 02/16/24 Rx food supplemt, lactose-reduced 120 ml PO 4X/DAY #0 mL 02/14/24 02/16/24 Rx 0.08 gram-1.5 kcal/mL oral liquid (Ensure Plus High Protein) lisinopril 20 mg tablet 20 mg PO DAILY #0 tabs 02/14/24 Unknown Rx nifedipine 60 mg tablet,extended 60 mg PO DAILY #0 tabs 02/14/24 Unknown Rx release 24 hr prednisone 20 mg tablet 20 mg PO BREAKFAST #0 tabs 02/14/24 02/16/24 Rx omeprazole 20 mg capsule,delayed 20 mg PO DAILY 02/16/24 Unknown History release Allergy/AdvReac Type Severity Reaction Status Date / Time cat dander (cats) Allergy Mild Rash Verified 02/16/24 19:37 Surgical History History of coronary artery stent placement Presence of coronary angioplasty implant and graft (~05/12/21) Social History household members: spouse housing: jail Smoking Status: Former smoker alcohol intake: never substance use type: does not use ROS ROS ED Review of Systems ROS Unobtainable: due to mental condition and due to mental status EXAM Physical Exam Const Vital Signs: 02/16/24 19:27 02/16/24 20:45 02/16/24 21:00 Temperature 96.9 F L Temperature Source Temporal Pulse Rate 63 57 L 57 L Respiratory Rate 17 14 18 Blood Pressure 150/70 H 132/52 H 96/71 Blood Pressure Mean 96 78 77 Pulse Ox 93 94 92 Oxygen Delivery Method Nasal Cannula Oxygen Flow Rate (L/min) 3 02/16/24 21:15 02/16/24 21:17 02/16/24 21:28 Temperature Temperature Source Pulse Rate 59 L 55 L 57 L Respiratory Rate 17 16 17 Blood Pressure 87/68 L 96/78 162/56 H Blood Pressure Mean 75 84 84 Pulse Ox 94 96 94 Oxygen Delivery Method Oxygen Flow Rate (L/min) 02/16/24 21:30 02/16/24 21:47 Temperature 98.7 F Temperature Source Pulse Rate 57 L 56 L Respiratory Rate 17 18 Blood Pressure 144/56 H Blood Pressure Mean 85 Pulse Ox 94 95 Oxygen Delivery Method Oxygen Flow Rate (L/min) Positive obese and unkempt General Appearance ED: unkempt; Negative for pallor Nutritional Appearance: obese HEENT Reports dry mucous membranes Negative for trauma Mouth ED: Yes dry mucous membranes Mouth: dry mucous membranes Eyes PERRL and EOMs intact bilaterally Resp normal respiratory effort Cardio regular rate and regular rhythm GI normal to inspection, nondistended, normoactive bowel sounds Neuro Sensorium / Orientation: orientation impaired Motor Exam: general weakness Psych Appearance: unkempt Skin General Skin Exam: Negative for jaundice or pallor MDM MDM MDM Narrative Medical decision making narrative: Patient presenting with altered mental status. He has a history of metabolic encephalopathy. His daughter states that he was normal earlier today and after a nap he has been altered. She states that he is a DNR CCA with no intubation. Differential includes ACS, CHF, aspiration pneumonia, hospital-acquired pneumonia, UTI, dehydration, anemia, electrolyte abnormalities, hyperammonemia, intracranial hemorrhage. CBC obtained to assess white blood cell count, hemoglobin, platelets. CMP to assess liver function, renal function, electrolytes, glucose. Ammonia to assess for hyperammonemia. Urinalysis to assess for UTI. BMP to assess for CHF. High-sensitivity troponin EKG to assess for ischemia/failure. Chest x-ray to rule out pneumonia. Will obtain CT brain without contrast. CBC shows normal white blood cell count of 7.6. Hemoglobin is 9.9 And This Is near His Baseline. Creatinine is 1.15. BUN 39. Glucose 114. LFTs are unremarkable. Urinalysis consistent with a UTI. CT brain was negative for acute findings. Chest x-ray on my interpretation shows no acute cardiopulmonary process. Radiologist services and agrees. High-sensitivity troponin is 10 and his EKG shows sinus bradycardia at 58 bpm with first-degree AV block. Patient woke up at about 920 and is talking again. His speech is a little bit garbled but he is communicating with his daughter. His vital signs are still stable. He was given a dose of IV rocephin. Urine culture was sent. Discussed case with Dr. Neil Barry who is on-call for other facility where he lives. He states that he could treat the UTI at his facility. He requested that IV be left in and he will give antibiotics there through the IV. Discussed this with his daughter who is amenable to this as well. We discussed this at length as well as return precautions. She states that he is going to get a neurologic evaluation because they are concerned that there is more of a neurolo gic problem or psychiatric problem. This is upcoming next week. Impression: 1. Encephalopathy 2. UTI Lab Data Labs: Laboratory Results - last 24 hr 02/16/24 02/16/24 19:45 19:50 WBC 7.6 RBC 3.22 L Hgb 9.9 L Hct 31.6 L MCV 98.1 H MCH 30.7 MCHC 31.3 L RDW Std Deviation 60.0 H RDW Coeff of Sophie 16.8 H Plt Count 100 L MPV 11.3 Immature Gran % (Auto) 0.500 Neut % (Auto) 81.3 H Lymph % (Auto) 11.6 L Coleman % (Auto) 6.3 Eos % (Auto) 0.3 Baso % (Auto) 0.0 Absolute Neuts (auto) 6.2 Absolute Lymphs (auto) 0.88 Nucleated RBC % 0 Sodium 150 H Potassium 3.9 Chloride 118 H Carbon Dioxide 29.0 Anion Gap 3 L BUN 39 H Creatinine 1.15 Estim Creat Clear Calc 56.74 Est GFR (MDRD) Af Amer 79 Est GFR (MDRD) Non-Af 65 BUN/Creatinine Ratio 33.9 H Glucose 114 H Calcium 8.7 Total Bilirubin 0.80 AST 55 H ALT 37 Alkaline Phosphatase 89 Ammonia 12.0 Troponin I High Sens 10 B-Natriuretic Peptide 46.1 Total Protein 5.8 L Albumin 2.5 L Globulin 3.3 Albumin/Globulin Ratio 0.8 L Urine Color Yellow Urine Clarity Sl. Cloudy Urine pH 6.0 Ur Specific [place] 1.015 Urine Protein 30 H Urine Glucose (UA) Normal Urine Ketones Negative Urine Occult Blood 50 H Urine Nitrite Positive H Urine Bilirubin Negative Urine Urobilinogen Normal Ur Leukocyte Esterase 500 H Urine RBC 0-5 SEEN Urine WBC 50-100 SEEN Ur Squamous Epith Cells 0 SEEN Urine Bacteria 3+ Urine Mucus 0 SEEN Radiography Diagnostic Testing: Clinical Impression(s) from Imaging Studies Brain CT 02/16/24 19:43 IMPRESSION: 1. No acute intracranial process. 2. Chronic involutional changes of the brain. Electronically Signed: Jose Snider MD at 20:50 EDT , Chest X-Ray 02/16/24 20:25 IMPRESSION: No radiographic evidence of acute cardiopulmonary disease. Electronically Signed: Jose Snider MD at 20:57 EDT , Discharge Plan Triage Chief Complaint: Alt LOC ED Provider: Ernesto Mario Dx/Rx/DC Orders Instructions: ED Confusion, ED Bladder Infection, Male (Adult) Prescriptions: No Action atorvastatin 20 mg tablet 20 mg PO QHS Qty: 90 3RF aspirin [Bertin Low Dose Aspirin] 81 mg tablet,delayed release (DR/EC) 81 mg PO DAILY cyanocobalamin (vitamin B-12) 1,000 mcg tablet 1,000 mcg PO DAILY albuterol sulfate 2.5 mg /3 mL (0.083 %) Solution For Nebulization 2.5 mg inhalation Q6H PRN (Reason: SHORTNESS OF BREATH/WHEEZING ) Qty: 0 0RF lisinopril 20 mg Tablet 20 mg PO DAILY Qty: 0 0RF prednisone 20 mg Tablet 20 mg PO BREAKFAST Qty: 0 0RF Rx Instructions: 1 daily for 5 days starting 02/15/2024 then discontinue nifedipine 60 mg Tablet Extended Release 24hr 60 mg PO DAILY Qty: 0 0RF folic acid 1 mg Tablet 1 mg PO DAILYCM Qty: 0 0RF Ensure Plus High Protein 0.08 gram-1.5 kcal/mL Liquid 120 ml PO 4X/DAY Qty: 0 0RF omeprazole 20 mg capsule,delayed release(DR/EC) 20 mg PO DAILY Primary Care Provider: Jasson England Referrals: Jasson England MD [Primary Care Provider] - Print Language: [place] Disposition Disposition: Home, Self Care
[2024-02-16 19:58] LABS: Mucous, Urine 0 SEEN /hpf (<or=2+); Squamous Epithelial Cells - UA 0 SEEN /hpf (0-5)
[2024-02-16 20:02] LABS: Color, Urine Yellow (Yellow); Glucose, Dipstick Normal (Normal); Ketone-Dipstick Negative (Negative); Leukocyte Esterase-Dipstick 500 /ul (Negative); Nitrite-Dipstick Positive (Negative); Occult Blood-Urine 50 /ul (Negative); Protein-Dipstick 30 mg/dl (Negative); Specific Gravity, Urine 1.015 (1.002-1.030); Urine Bilirubin Dipstick Negative (Negative); Urine Clarity Sl. Cloudy (Clear); Urine Urobilinogen Normal (Normal)
[2024-02-16 20:11] LABS: White Blood Cells 50-100 SEEN /hpf (0-5)
[2024-02-16 20:12] LABS: Bacteria 3+ /hpf (None Seen); Red Blood Cells-Urine 0-5 SEEN /hpf (0-5)
[2024-02-16 20:13] LABS: Absolute Lymphocyte Count 0.88 X10^3/uL (0.83-4.51); Absolute Neutrophil Count 6.2 X10^3/uL (2.0-7.7); Eosinophil# 0.02 X10^3/uL; Eosinophils% 0.3 % (0-5); Hematocrit 31.6 % (40-54); Hemoglobin 9.9 g/dL (13.0-16.5); Lymphocyte # 0.88 X10^3/ul (0.83-4.51); Lymphocyte % 11.6 % (19-41); Mean Corp Hgb Conc 31.3 g/dL (32-36); Mean Corpuscular Hgb 30.7 pg (27.0-32.0); Mean Corpuscular Volume 98.1 fL (80-94); Mean Platelet Vol. 11.3 fl (6.2-12.0); Monocyte# 0.48 X10^3/uL; Monocyte% 6.3 % (0-10); NRBC Flagged by Analyzer 0 % (0-5); Neutrophil # 6.19 X10^3/uL (2.7-7.7); Neutrophil % 81.3 % (47-70); Platelet Count 100 K/mm3 (150-450); RBC Distribution Width CV 16.8 % (11.6-14.6); Red Blood Count 3.22 M/mm3 (4.6-6.2); White Blood Count 7.6 K/mm3 (4.4-11.0)
--- NOTE | 2024-02-16 20:25 | RAD_ITS ---
INDICATION: altered mental status EXAMINATION/TECHNIQUE: X-RAY - XR Chest 1 View COMPARISON: Prior study dated: 02/18/2024. FINDINGS: LINES/DEVICES: None. LUNGS: No consolidation, edema or effusion. No pneumothorax. MEDIASTINUM AND CARDIOVASCULAR STRUCTURES: Cardiac silhouette not enlarged. Central airways and mediastinal contour are unremarkable. BONES AND SOFT TISSUES: Unremarkable. RAD/Chest 1 View (Portable) IMPRESSION: No radiographic evidence of acute cardiopulmonary disease. Electronically Signed: Jose Snider MD at 20:57 EDT ,
[2024-02-16 20:32] LABS: BNP,B-Type NATRIURETIC PEPTIDE 46.1 pg/mL (0-100)
[2024-02-16 20:35] LABS: ALB/GLOB Ratio 0.8 RATIO (0.9-2.4); AST(SGOT) 55 U/L (15-37); Alanine Aminotransfer ALT/SGPT 37 U/L (16-61); Albumin, Serum 2.5 g/dL (3.2-5.0); Alkaline Phosphatase 89 U/L (45-117); Anion Gap 3 (5-15); BUN 39 mg/dL (7-18); BUN/Creat Ratio 33.9 RATIO (10-20); Calcium,Total 8.7 mg/dL (8.5-10.1); Chloride 118 mmol/L (98-107); Creatinine, Serum 1.15 mg/dL (0.70-1.30); EST Glomerular Filtration Rate 65 mL/min (>60); Est Glom Filt Rate - Afr Amer 79 mL/min (>60); Estimated Creatinine Clearance 56.74 ml/min; Globulin 3.3 g/dL (2.2-4.2); Glucose 114 mg/dL (74-106); Potassium 3.9 mmol/L (3.5-5.1); Protein, Total 5.8 g/dL (6.4-8.2); Sodium Level 150 mmol/L (136-145); Troponin-I HS 10 pg/mL (3.0-78.0)
[2024-02-16] MEDS: Ceftriaxone 1 GM/50 ML BAG IV (21:19)
== END 2024-02-16 23:34 | disposition home or self-care (01) ==
PROVIDERS: Emergency Provider Student in an Organized Health Care Education/Training Program; PCP Family Medicine; Visit Provider Student in an Organized Health Care Education/Training Program
DX: G93.40 Encephalopathy, unspecified (principal); I50.9 Heart failure, unspecified; I11.0 Hypertensive heart disease with heart failure; J44.9 Chronic obstructive pulmonary disease, unspecified; E11.9 Type 2 diabetes mellitus without complications; N39.0 Urinary tract infection, site not specified; E66.9 Obesity, unspecified; I25.10 Atherosclerotic heart disease of native coronary artery without angina pectoris; K21.9 Gastro-esophageal reflux disease without esophagitis; Z87.891 Personal history of nicotine dependence; Z79.51 Long term (current) use of inhaled steroids; Z79.899 Other long term (current) drug therapy; Z95.5 Presence of coronary angioplasty implant and graft
CPT/HCPCS: 70450; 71045; 80053; 81001; 82140; 83880; 84484; 85025; 87086; 87088; 87186; 87631; 93005; 96365; 99284; J7040; A4216

== ENCOUNTER 2024-02-26 00:53 | Emergency (ER) | payer MEDICARE, SELFPAY ==
[2024-02-26 00:55] VITALS: BP 155/59; PULSE 53; RESP 18; TEMP 36.4; O2SAT 96
[2024-02-26 01:01] VITALS: BMI 28.0
--- NOTE | 2024-02-26 01:01 | RAD_ITS ---
INDICATION: left long finger dislocated and already reduced EXAMINATION/TECHNIQUE: X-RAY - LEFT XR Hand Min 3 Views COMPARISON: None. FINDINGS: SOFT TISSUES: Unremarkable. BONES/JOINTS: No fracture or dislocation. Mild degenerative changes. No erosive changes. RAD/Hand Min 3 Views IMPRESSION: No fracture or dislocation. Electronically Signed: Jasson Bailon DO at 1:24 EDT ,
--- NOTE | 2024-02-26 01:02 | EX.ED.UPPERE ---
HPI History of Present Illness HPI Narrative: 78-year-old male fell at [facility]. Injuring his left long finger. No other injuries or complaints. Chief Complaint: Upper Extremity Injury Informant: patient Occured/Mechanism Mechanism/Context: Yes injury and Yes blunt trauma Onset/Context/Timing Onset: Today Context: Sudden Onset Timing: Continuous Quality of Pain: Stabbing Current Severity: Moderate Maximum Severity: Moderate Narrative Narrative: 78-year-old male with left long finger injury after fall at the senior living. No other complaints or signs of trauma. Prior similar symptoms: No Recent Illness/Hospitalization: No PFSH PFSH Medical History Confusion Fall History of diabetes mellitus Chronic anemia Adult failure to thrive Bradycardia Fall Acute alteration in mental status CHI (closed head injury) Anemia Essential hypertension Degenerative disk disease Congestive heart failure (CHF) On home oxygen therapy Atrial fibrillation Coronary artery disease Chest pain Lower extremity edema Macrocytic anemia Hallucinations Short-term memory loss Hypoxia Hypertensive urgency Anemia CHF (congestive heart failure) COPD exacerbation Acute respiratory failure with hypoxia Syncope Delirium Orthostatic hypotension Presence of stent in coronary artery (~05/12/21) Atherosclerotic heart disease of [place] coronary artery without angina pectoris HLD (hyperlipidemia) Anemia Vertigo Degenerative disc disease, lumbar Anxiety Diabetes GERD (gastroesophageal reflux disease) Former smoker Parkinson's disease Altered mental status Back pain Hypertension Home Medications ?Medication ?Instructions ?Recorded ?Last Taken ?Type aspirin 81 mg tablet,delayed 81 mg PO DAILY HEART HEALTH 08/16/23 02/16/24 History release (Bertin Low Dose Aspirin) atorvastatin 20 mg tablet 20 mg PO QHS CHOLESTEROL #90 tabs 08/16/23 Unknown Rx cyanocobalamin (vitamin B-12) 1,000 mcg PO DAILY SUPPLEMENT 02/06/24 Unknown History 1,000 mcg tablet albuterol sulfate 2.5 mg/3 mL 2.5 mg (3 mL) inhalation Q6H PRN 02/14/24 Unknown Rx (0.083 %) solution for nebulization SHORTNESS OF BREATH/WHEEZING #0 mL folic acid 1 mg tablet 1 mg PO DAILYCM #0 tabs 02/14/24 02/16/24 Rx food supplemt, lactose-reduced 120 ml PO 4X/DAY #0 mL 02/14/24 02/16/24 Rx 0.08 gram-1.5 kcal/mL oral liquid (Ensure Plus High Protein) lisinopril 20 mg tablet 20 mg PO DAILY #0 tabs 02/14/24 Unknown Rx nifedipine 60 mg tablet,extended 60 mg PO DAILY #0 tabs 02/14/24 Unknown Rx release 24 hr prednisone 20 mg tablet 20 mg PO BREAKFAST #0 tabs 02/14/24 02/16/24 Rx omeprazole 20 mg capsule,delayed 20 mg PO DAILY 02/16/24 Unknown History release Allergy/AdvReac Type Severity Reaction Status Date / Time cat dander (cats) Allergy Mild Rash Verified 02/26/24 01:05 Surgical History History of coronary artery stent placement Presence of coronary angioplasty implant and graft (~05/12/21) Social History household members: spouse housing: senior living Smoking Status: Former smoker alcohol intake: never substance use type: does not use ROS ROS ED ROS Narrative Denies recent illness. Review of Systems ROS Unobtainable: due to encephalopathy Constitutional Constitutional ED: Denies excessive sweating Eyes Eyes: Reports none ENT ENT ED: Reports none Cardiovascular Cardiovascular: Reports none Respiratory/Chest Respiratory/Chest: Reports none Gastrointestinal Gastrointestinal: Reports none Genitourinary Genitourinary ED: Reports none Musculoskeletal Musculoskeletal: Reports extremity pain Integumentary Reports none Neurologic Neurologic: Reports none Psychiatric Psychiatric: Reports none Endocrine Endocrinology: Reports none Hematologic/Lymphatic Hematologic/Lymphatic: Reports none Allergic/Immunologic Allergic/Immunologic ED: Reports none EXAM Physical Exam Narrative Exam Narrative: 78-year-old male vital signs stable afebrile. H EENT exam pupils round and reactive to light. Equal and symmetrical. Extra motions are intact. No signs of trauma to his face or scalp. C-spine and neck nontender. Lungs clear. Heart bradycardic no murmur. Chest wall and ribs nontender. Abdomen soft nontender. Pelvic girdle intact. Hips and pelvis nontender. No shortening or rotation. He is able to flex and extension both hips, knees and ankles. Upper extremities right upper extremity unremarkable. Left shoulder upper arm, elbow, forearm and wrist are nontender. Left hand the left long finger at the PIP there is dislocation. Skin is intact. Neurologically patient is awake and alert. Answering questions. Following commands. Is a limited informant. Const Vital Signs: 02/26/24 00:55 Temperature 97.6 F L Temperature Source Temporal Pulse Rate 53 L Respiratory Rate 18 Blood Pressure 155/59 H Blood Pressure Mean 91 Pulse Ox 96 Oxygen Delivery Method Nasal Cannula Oxygen Flow Rate (L/min) 3 Positive well nourished, well developed, alert, no apparent distress, average body habitus, no limitations and healthy appearing; Negative for contractures or unkempt General Appearance ED: active, cooperative, comfortable and well developed; Negative for unkempt or contractures HEENT Reports normocephalic and head/scalp atraumatic normocephalic Face and Sinus: normal facial exam Nose: external nose normal External Ear: external ears normal Eyes PERRL, EOMs intact bilaterally, conjunctivae normal and no scleral icterus General Eye ED: Yes normal appearance of both eyes Neck full ROM, No nuchal rigidity, no lymphadenopathy, supple, no meningeal signs and no JVD Lymph Lymphatic: no lymphadenopathy noted and no lymphedema noted Chest Wall inspection of chest normal and palpation of chest normal Resp normal respiratory effort, normal air movement, no retractions, no use of accessory muscles and clear to auscultation bilaterally Cardio S1 normal heart sound, S2 normal heart sound, no murmurs and no rub; Negative for regular rate Rate: bradycardia GI normal to inspection, nondistended, normoactive bowel sounds, soft to palpation, non-tender, non-distended and no masses Palpation: soft; Negative for firm, tender, guarding or rebound tenderness present Back/Spine no CVA tenderness, normal to inspection and no thoracic nor lumbar tenderness Extremity normal to inspection, full ROM, no joint enlargement and no calf tenderness Extremity Narrative: Except left hand. Left long finger. Dislocation at the PIP. Reduced manually. Then x-ray will be obtained. Range of motion after reduction. To be normal. Neuro moves all extremities and no focal motor deficits Sensorium / Orientation: awake, alert and oriented to person Psych mental status grossly normal, thought process normal, cooperative, affect normal and speech normal Appearance: grossly normal; Negative for unkempt Attitude: calm and engaged Speech: normal speech Mood & Affect: euthymic mood Skin no rashes or lesions noted, no wounds, no jaundice and no petechiae General Skin Exam: no breakdown Lesions: no lesions Rashes: no rashes Trauma: no lacerations or abrasions MDM MDM MDM Narrative Medical decision making narrative: 78-year-old male from [facility] care facility fell dislocating his left long finger at the PIP which I manually reduced. X-ray being obtained postreduction. History & Record Review Discussion w/independent historian: Patient Additional record(s) reviewed:: Prior inpatient record, Prior outpatient record, Prior ED visit and Prior labs Radiography Diagnostic Testing: Left hand x-ray. Left long finger there is soft tissue swelling. I have already reduced the dislocation prior to the x-ray. Currently there is no dislocation or fracture noted. 3 views. Interpreted both by myself and the radiologist. Procedures Other Procedures Procedure(s): Left long finger dislocation at the PIP. I manually reduced it. Patient tolerated well. Postreduction x-rays were normal. Discharge Plan Triage Chief Complaint: Upper Extremity Injury ED Provider: Steve Loco Dx/Rx/DC Orders Clinical Impression: Fall, Dislocated finger, History of diabetes mellitus, History of atrial fibrillation Instructions: ED Finger Dislocation Prescriptions: No Action atorvastatin 20 mg tablet 20 mg PO QHS Qty: 90 3RF aspirin [Bertin Low Dose Aspirin] 81 mg tablet,delayed release (DR/EC) 81 mg PO DAILY cyanocobalamin (vitamin B-12) 1,000 mcg tablet 1,000 mcg PO DAILY albuterol sulfate 2.5 mg /3 mL (0.083 %) Solution For Nebulization 2.5 mg inhalation Q6H PRN (Reason: SHORTNESS OF BREATH/WHEEZING ) Qty: 0 0RF lisinopril 20 mg Tablet 20 mg PO DAILY Qty: 0 0RF prednisone 20 mg Tablet 20 mg PO BREAKFAST Qty: 0 0RF Rx Instructions: 1 daily for 5 days starting 02/15/2024 then discontinue nifedipine 60 mg Tablet Extended Release 24hr 60 mg PO DAILY Qty: 0 0RF folic acid 1 mg Tablet 1 mg PO DAILYCM Qty: 0 0RF Ensure Plus High Protein 0.08 gram-1.5 kcal/mL Liquid 120 ml PO 4X/DAY Qty: 0 0RF omeprazole 20 mg capsule,delayed release(DR/EC) 20 mg PO DAILY Primary Care Provider: Jasson England Referrals: Jasson England MD [Primary Care Provider] - As Needed Activity Restrictions/Additional Instructions: Patient had dislocated left long finger. I reduced it. After the reduction the x-ray showed no broken bones. Ice to decrease pain and swelling. Tylenol for pain. Follow-up as needed. Print Language: Korean Disposition Disposition: Home, Self Care
--- NOTE | 2024-02-26 01:09 | ED.RN ---
Per nurse Zaragoza at [facility], Jc uses a wheelchair and is unable to transfer without 1-2 person assist. He is unsteady with transferring with is unable to ambulate independently.
[2024-02-26 01:38] VITALS: BP 153/65; PULSE 54; RESP 20; TEMP 35.9; O2SAT 95
== END 2024-02-26 01:55 | disposition home or self-care (01) ==
PROVIDERS: Emergency Provider Emergency Medicine; PCP Family Medicine; Visit Provider Emergency Medicine
DX: S63.283A Dislocation of proximal interphalangeal joint of left middle finger, initial encounter (principal); I11.0 Hypertensive heart disease with heart failure; I50.9 Heart failure, unspecified; J44.9 Chronic obstructive pulmonary disease, unspecified; E11.9 Type 2 diabetes mellitus without complications; I25.10 Atherosclerotic heart disease of native coronary artery without angina pectoris; Z87.891 Personal history of nicotine dependence; Z79.51 Long term (current) use of inhaled steroids; Z79.82 Long term (current) use of aspirin; Z79.899 Other long term (current) drug therapy; W19.XXXA Unspecified fall, initial encounter
CPT/HCPCS: 73130; 99282

== ENCOUNTER 2024-04-02 16:51 | Inpatient (IN) | payer MEDICARE, SELFPAY ==
[2024-04-02] VITALS (24 sets, daily range): BP systolic 66–156; BP diastolic 27–110; PULSE 58–82; RESP 12–28; TEMP -16–34.9; O2SAT 50–100; BMI 27.9; BMI 28.0
--- NOTE | 2024-04-02 17:05 | EKG12_ITS ---
Test Reason : TELEMETRY CHANGES Blood Pressure : / mmHG Vent. Rate : 073 BPM Atrial Rate : 000 BPM P-R Int : 000 ms QRS Dur : 088 ms QT Int : 408 ms P-R-T Axes : 000 047 108 degrees QTc Int : 449 ms Poor data quality, interpretation may be adversely affected Atrial fibrillation Nonspecific T wave abnormality Abnormal ECG No previous ECGs available Confirmed by Clifton Grant ([id number]), editor farm journal VAUGHN KENT ([id number]) on 04/08/2024 7:53:25 AM Referred By: Confirmed By:Clifton Grant
--- NOTE | 2024-04-02 17:09 | ED.VIS.DYS ---
HPI History of Present Illness Chief Complaint: Shortness of Breath Informant: EMS and SNF Onset/Context/Timing Onset: Today Narrative Narrative: 78-year-old male unresponsive reportedly DNR comfort care sent in from [facility] for respiratory failure and decreased level of consciousness. Patient is unable to give any history Prior similar symptoms: Yes Recent Illness/Hospitalization: Yes [facility] Medical History Confusion Fall History of diabetes mellitus Chronic anemia Adult failure to thrive Bradycardia Fall Acute alteration in mental status CHI (closed head injury) Anemia Essential hypertension Degenerative disk disease Congestive heart failure (CHF) On home oxygen therapy Atrial fibrillation Coronary artery disease Chest pain Lower extremity edema Macrocytic anemia Hallucinations Short-term memory loss Hypoxia Hypertensive urgency Anemia CHF (congestive heart failure) COPD exacerbation Acute respiratory failure with hypoxia Syncope Delirium Orthostatic hypotension Presence of stent in coronary artery (~05/12/21) Atherosclerotic heart disease of [place] coronary artery without angina pectoris HLD (hyperlipidemia) Anemia Vertigo Degenerative disc disease, lumbar Anxiety Diabetes GERD (gastroesophageal reflux disease) Former smoker Parkinson's disease Altered mental status Back pain Hypertension Home Medications ?Medication ?Instructions ?Recorded ?Last Taken ?Type aspirin 81 mg tablet,delayed 81 mg PO DAILY HEART HEALTH 08/16/23 02/16/24 History release (Bertin Low Dose Aspirin) atorvastatin 20 mg tablet 20 mg PO QHS CHOLESTEROL #90 tabs 08/16/23 Unknown Rx cyanocobalamin (vitamin B-12) 1,000 mcg PO DAILY SUPPLEMENT 02/06/24 Unknown History 1,000 mcg tablet albuterol sulfate 2.5 mg/3 mL 2.5 mg (3 mL) inhalation Q6H PRN 02/14/24 Unknown Rx (0.083 %) solution for nebulization SHORTNESS OF BREATH/WHEEZING #0 mL folic acid 1 mg tablet 1 mg PO DAILYCM #0 tabs 02/14/24 02/16/24 Rx food supplemt, lactose-reduced 120 ml PO 4X/DAY #0 mL 02/14/24 02/16/24 Rx 0.08 gram-1.5 kcal/mL oral liquid (Ensure Plus High Protein) lisinopril 20 mg tablet 20 mg PO DAILY #0 tabs 02/14/24 Unknown Rx prednisone 20 mg tablet 20 mg PO BREAKFAST #0 tabs 02/14/24 02/16/24 Rx omeprazole 20 mg capsule,delayed 20 mg PO DAILY 02/16/24 Unknown History release ferrous sulfate 325 mg (65 mg 325 mg PO DAILY #90 tabs 02/27/24 Unknown Rx iron) tablet nifedipine 30 mg tablet,extended 30 mg PO DAILY #90 tabs 02/27/24 Unknown Rx release 24 hr Allergy/AdvReac Type Severity Reaction Status Date / Time cat dander (cats) Allergy Mild Rash Verified 02/26/24 01:05 Surgical History History of coronary artery stent placement Presence of coronary angioplasty implant and graft (~05/12/21) Social History household members: spouse housing: senior care Smoking Status: Former smoker alcohol intake: never substance use type: does not use ROS ROS ED ROS Narrative Unable to obtain due to patient's mental status and overall medical condition. Per Anastasia at the extended-care facility he has not been recently ill this is acute today around 1 PM. Review of Systems ROS Unobtainable: due to mental status EXAM Physical Exam Narrative Exam Narrative: 78-year-old male unresponsive. Vital signs are stable other than he is on BiPAP his pulse ox 100%. H EENT exam moist mucous membranes. Eyes are closed but is pupils are 2 mm equal symmetrical. Neck nontender. No lymphadenopathy. Lungs on BiPAP is sound clear. Heart regular rhythm rate about 70 no murmur. Chest wall and ribs nontender. Abdomen soft nondistended normal bowel sounds no peritoneal signs. Extremities he is not moving them. He is trace edema both lower extremities. Neurologically is unresponsive. Noxious or verbal stimuli. His eyes are closed. He is obtunded. There is no family currently present. My understanding is that he is DNR Comfort Care arrest no intubation. Const Vital Signs: 04/02/24 16:51 04/02/24 16:52 04/02/24 16:58 Temperature 88.5 F L 86.5 F L 86.5 F L Temperature Source Tympanic Tympanic Tympanic Pulse Rate 69 69 71 Respiratory Rate 23 H 28 H 23 H Respiratory Effort Respiratory Depth Respiratory Pattern Blood Pressure 156/100 H 156/100 H 156/100 H Blood Pressure Mean 118 118 118 Pulse Ox 95 70 89 Oxygen Delivery Method Bi-pap Nasal Cannula Bi-pap Oxygen Flow Rate (L/min) 6 Fraction of Inspired Oxygen (FIO2) 100 04/02/24 17:00 04/02/24 17:02 04/02/24 17:05 Temperature Temperature Source Pulse Rate 68 Respiratory Rate 20 H Respiratory Effort Short of Breath Labored Accessory Muscle Use Respiratory Depth Deep Respiratory Pattern Tachypnea Blood Pressure Blood Pressure Mean Pulse Ox 100 94 Oxygen Delivery Method Bi-pap Oxygen Flow Rate (L/min) Fraction of Inspired Oxygen (FIO2) 100 100 04/02/24 17:42 04/02/24 18:00 Temperature 94.9 F L Temperature Source Core Pulse Rate 66 58 L Respiratory Rate 20 H 24 H Respiratory Effort Respiratory Depth Respiratory Pattern Blood Pressure 78/60 L Blood Pressure Mean 66 Pulse Ox 98 Oxygen Delivery Method Bi-pap Oxygen Flow Rate (L/min) Fraction of Inspired Oxygen (FIO2) Positive well nourished and well developed; Negative for cachectic or contractures Constitutional Narrative: Unresponsive. General Appearance ED: well developed and pallor; Negative for cachectic, contractures or NAD Nutritional Appearance: Negative for cachectic HEENT Reports moist mucous membranes atraumatic; Negative for trauma or tenderness Eyes PERRL General Eye ED: Negative for pale conjunctiva or scleral icterus Neck no lymphadenopathy, supple, no meningeal signs and no JVD General: Negative for tenderness Lymph Lymphatic: Negative for other Resp normal respiratory effort and clear to auscultation bilaterally Effort and Inspection: Negative for pain with movement Auscultation: Negative for rales, rhonchi, wheezes or diminished lung sounds Cardio regular rate, regular rhythm, S1 normal heart sound, S2 normal heart sound and no murmurs GI non-tender, non-distended and no masses Palpation: soft; Negative for tender, guarding or rebound tenderness present Extremity Negative for normal to inspection Extremity Narrative: Trace edema. Not moving his extremities. General Extremety ED: Yes edema General Extremity: edema Neuro No oriented x3 Neuro Narrative: Unresponsive to verbal or noxious stimuli. Eyes closed. Speech: Negative for speech normal Motor Exam: Negative for strength 5/5 throughout Psych Psych Narrative: Unable to assess due to his unresponsive. Skin no wounds General Skin Exam: pallor; Negative for jaundice Lesions: no lesions Rashes: no rashes MDM MDM MDM Narrative Medical decision making narrative: 78-year-old male extensive past medical history from [facility]. With respiratory failure. Currently is on BiPAP. Understanding is he is a DNR. Undergo cardiac/respiratory and sepsis workup. I have already spoken to the senior care. I am awaiting family's arrival to discuss with him how aggressive they want to be. Repeat exam no change. The patient has become hypotensive. He has 3 peripheral IVs. He is receiving 2 L normal saline. Due to the suspected pneumonia, dehydration and UTI he is getting IV fluids and IV antibiotics will be started on Rocephin and Zithromax. Hospitalist is on page for admission. Daughter is at bedside and informed her of all of her test results so far. She is comfortable with the plan. I again she wants him treated but does not want intubated nor central line or CPR if he would come to that point. She understands how ill he is. Patient's blood pressure is progressively improving with the IV fluids. He has received about a liter he is in a second 1 going in. I will write for a third. He is also receiving antibiotics. I have spoken to the hospitalist. He will be admitted to the PCU. History & Record Review Discussion w/independent historian: Patient and Family Additional record(s) reviewed:: Prior inpatient record, Prior outpatient record, Prior ED visit and Prior labs Lab Data Attestation: I reviewed the patient's lab results. Lab results narrative: Blood gas shows a pH of 7.17 pCO2 of 57 and a pO2 of 72 that is on BiPAP 89%. He is in obvious respiratory acidosis. CBC shows a white count of 7. H&H of 10.1 and 33. Platelets 103. Patient has a history of anemia. PT and INR 14 and 1. PTT 27. Electrolytes show a gap of 6. BUN of 57 creatinine 2.38 consistent with acute dehydration and acute kidney injury. Glucose 102. Lactic acid 2.7. Urinalysis shows 25-50 white cells 1+ bacteria. No nitrates. Culture will be sent. Possibly UTI will be treated as such. Chest x-ray concerning for right lower lobe infiltrate. Labs: Laboratory Results - last 24 hr 04/02/24 17:20 WBC 7.4 RBC 3.31 L Hgb 10.1 L Hct 33.4 L MCV 100.9 H MCH 30.5 MCHC 30.2 L RDW Std Deviation 62.4 H RDW Coeff of Sophie 17.0 H Plt Count 103 L MPV 11.1 Immature Gran % (Auto) 0.300 Neut % (Auto) 76.5 H Lymph % (Auto) 17.9 L [place] % (Auto) 4.2 Eos % (Auto) 0.7 Baso % (Auto) 0.4 Absolute Neuts (auto) 5.7 Absolute Lymphs (auto) 1.33 Nucleated RBC % 0.3 PT 14.1 INR 1.1 APTT 27.8 Sodium 145 Potassium 4.4 Chloride 118 H Carbon Dioxide 21.0 Anion Gap 6 BUN 57 H Creatinine 2.38 H Estim Creat Clear Calc 27.33 Est GFR (MDRD) Af Amer 34 L Est GFR (MDRD) Non-Af 28 L BUN/Creatinine Ratio 23.9 H Glucose 102 Lactic Acid 2.7 H* Calcium 9.1 Troponin I High Sens 8 Urine Color Yellow Urine Clarity Cloudy Urine pH 6.0 Ur Specific Mcdougal 1.020 Urine Protein 100 H Urine Glucose (UA) Normal Urine Ketones Negative Urine Occult Blood 50 H Urine Nitrite Negative Urine Bilirubin Negative Urine Urobilinogen Normal Ur Leukocyte Esterase 500 H Urine RBC 0 SEEN Urine WBC 25-50 SEEN Ur Squamous Epith Cells 0 SEEN Urine Bacteria 1+ Urine Mucus 0 SEEN ABG Data ABG results: ABG 04/02/24 17:08 Specimen Type ART Sample Site L Radial pH 7.17 L* Bicarbonate Actual 21.1 L Total CO2 23 Base Excess -7 L O2 Saturation 89 L O2 % 6.0 ABG pCO2 57.7 H ABG pO2 73 L Jus Test Positive O2 Delivery Device Cannula Vent Mode Not entered Crit Call To/Read Back Yes Blood Gas Notified Whom jw Blood Gas Notified Time 17:09:39 Radiography Chest X-Ray - ED: 1 View, Read by ED Physician, Read by Radiologist, Heart, Lungs, Mediastinum, Bony Structures, Chronic Changes and Right Infiltrate Diagnostic Testing: Clinical Impression(s) from Imaging Studies Chest X-Ray 04/02/24 17:32 IMPRESSION: Focal right lower lobe pneumonia. Electronically Signed: Diogo Hendricks MD at 17:42 EDT , Chest x-ray, portable, single view interpreted by myself and the radiologist. Shows a right lower lobe infiltrate possible pneumonia. Normal cardiac silhouette. Rhythm Strip Rhythm Strip: Sinus Rhythm Rate: 67 Ectopy: None EKG Initial EKG: Attestation: I personally reviewed and interpreted this EKG as follows: Interpretation: Sinus Rhythm and No Acute Injury Pattern Comments: Normal sinus rhythm rate of 67 first-degree AV block with up interval to 28. No acute signs of GA or ischemia. Critical Care Time Critical Care Time: Yes Critical care time (excluding procedures): 30-74 minutes, Including time spent:, Discussing w/Patient &/or Family/Rope Making Machine Operator, Discussing w/Consultants, Arranging Admission or Transfer, Performing Direct Patient Care at Bedside and - (45 minutes.) Discharge Plan Dx/Rx/DC Orders Clinical Impression: Sepsis, Acute kidney injury, Acute hypotension, Pneumonia, Acute UTI, Acute dehydration, Respiratory failure, Acute respiratory acidosis, Acute alteration in mental status, History of COPD, History of Parkinson's disease Disposition Disposition: Acute Care [facility]
[2024-04-02 17:13] LABS: Allen Test Positive; Base Excess -7 mmol/L (-2 to +2); Bicarbonate 21.1 mmol/L (22-26); Blood Gas Specimen Type ART; Mode Not entered; O2 Delivery Device Cannula; PO2 73 mmHG (75-100); SITE L Radial; SO2 89 % (95-99); Total Carbon Dioxide 23 mmol/L; pCO2 57.7 mmHg (35-45); pH 7.17 (7.35-7.45)
--- NOTE | 2024-04-02 17:32 | RAD_ITS ---
STUDY: X-RAY CHEST REASON FOR EXAM: Male, 78 years old. chest pain TECHNIQUE: Single AP portable view of the chest. COMPARISON: 02/16/2024 FINDINGS: Focal alveolar opacity in the right cardiophrenic angle consistent with right lower lobe pneumonia. There is no demonstrated pleural abnormality. Normal size heart. Normal mediastinum and vandana. Normal visualized pulmonary arteries. Normal visualized aortic arch and descending thoracic aorta. Normal visualized thoracic spine. Normal visualized ribs, clavicles, and shoulders. There is no demonstrated abnormality of the visualized soft tissue structures of the upper abdomen. RAD/Chest 1 View (Portable) IMPRESSION: Focal right lower lobe pneumonia. Electronically Signed: Diogo Hendricks MD at 17:42 EDT ,
[2024-04-02 17:39] LABS: Mucous, Urine 0 SEEN /hpf (<or=2+); Red Blood Cells-Urine 0 SEEN /hpf (0-5); Squamous Epithelial Cells - UA 0 SEEN /hpf (0-5)
[2024-04-02] MEDS: Ipratropium/Albuterol Sulfate 3 ML AMPUL.NEB INHALATION (17:39)
[2024-04-02 17:46] LABS: Absolute Lymphocyte Count 1.33 X10^3/uL (0.83-4.51); Absolute Neutrophil Count 5.7 X10^3/uL (2.0-7.7); Basophil# 0.03 X10^3/uL; Basophil% 0.4 % (0-1); Color, Urine Yellow (Yellow); Eosinophil# 0.05 X10^3/uL; Eosinophils% 0.7 % (0-5); Glucose, Dipstick Normal (Normal); Hematocrit 33.4 % (40-54); Hemoglobin 10.1 g/dL (13.0-16.5); Ketone-Dipstick Negative (Negative); Leukocyte Esterase-Dipstick 500 /ul (Negative); Lymphocyte # 1.33 X10^3/ul (0.83-4.51); Lymphocyte % 17.9 % (19-41); Mean Corp Hgb Conc 30.2 g/dL (32-36); Mean Corpuscular Hgb 30.5 pg (27.0-32.0); Mean Corpuscular Volume 100.9 fL (80-94); Mean Platelet Vol. 11.1 fl (6.2-12.0); Monocyte# 0.31 X10^3/uL; Monocyte% 4.2 % (0-10); NRBC Flagged by Analyzer 0.3 % (0-5); Neutrophil # 5.67 X10^3/uL (2.7-7.7); Neutrophil % 76.5 % (47-70); Nitrite-Dipstick Negative (Negative); Occult Blood-Urine 50 /ul (Negative); Platelet Count 103 K/mm3 (150-450); Protein-Dipstick 100 mg/dl (Negative); RBC Distribution Width SD 62.4 fl (35.1-43.9); Red Blood Count 3.31 M/mm3 (4.6-6.2); Urine Bilirubin Dipstick Negative (Negative); Urine Clarity Cloudy (Clear); Urine Urobilinogen Normal (Normal); White Blood Count 7.4 K/mm3 (4.4-11.0)
[2024-04-02 17:59] LABS: Anion Gap 6 (5-15); BUN 57 mg/dL (7-18); BUN/Creat Ratio 23.9 RATIO (10-20); Calcium,Total 9.1 mg/dL (8.5-10.1); Chloride 118 mmol/L (98-107); Creatinine, Serum 2.38 mg/dL (0.70-1.30); EST Glomerular Filtration Rate 28 mL/min (>60); Est Glom Filt Rate - Afr Amer 34 mL/min (>60); Estimated Creatinine Clearance 27.33 ml/min; Glucose 102 mg/dL (74-106); Potassium 4.4 mmol/L (3.5-5.1); Sodium Level 145 mmol/L (136-145); Troponin-I HS 8 pg/mL (3.0-78.0)
[2024-04-02] MEDS: 0.9% Normal Saline (1000mL) 1,000 ML 999 ML IV ×3 (18:00→19:26)
[2024-04-02 18:01] LABS: White Blood Cells 25-50 SEEN /hpf (0-5)
[2024-04-02 18:02] LABS: Bacteria 1+ /hpf (None Seen)
[2024-04-02 18:13] LABS: Lactic Acid 2.7 mmol/L (0.4-1.9)
[2024-04-02 18:25] LABS: International Normalized Ratio 1.1; Partial Thromboplast Time 27.8 Seconds (24.1-36.2); Prothrombin Time (Protime)PT. 14.1 SECONDS (11.7-14.9)
[2024-04-02] MEDS: Ceftriaxone 1 GM/50 ML BAG IV (19:14)
[2024-04-02] MEDS: Azithromycin 500 MG in Dextrose 5%-Water (250mL Bag) 250 ML 250 MG IV (19:25)
--- NOTE | 2024-04-02 19:37 | PCM.HP.STD ---
HPI - General General Date of Admission: 04/02/24 Date of Service: 04/02/24 Chief Complaint: Hypoxia, ams HPI Narrative KERRY VALDES, is a 78-year-old male with a history of hypertension, GERD, CAD with stenting, COPD, CHF who presented to [facility] ED 04/02/2024 due to hypoxia and altered mental status. Reportedly patient worsened over the day and when he presented he was obtunded and hypoxic which was confirmed on ABG. Daughter confirmed patient was DNR/DNI but agreeable to additional measures other than central line. Patient placed on BiPAP and oxygen improved, he was found to have a UTI and a right lower lobe pneumonia as well as an AUGUSTIN. He was started on IV fluids and given antibiotics and hospitalist contacted for admission. Patient unable to provide history so history obtained from daughter at bedside, reportedly patient has not been eating or drinking well for a while and his just continued to worsen, today patient acutely worsened ultimately leading to patient coming to the hospital. Patient still with low BP but O2 100% in ED at time of evaluation, response to painful stimuli but would not wake up and answer questions in a meaningful way [facility] Medical History (Updated 04/02/24 @ 20:[address] Mary Carmen Gardner MD) Acute alteration in mental status Acute respiratory failure with hypoxia Adult failure to thrive Altered mental status Anemia Anemia Anemia Anxiety Atherosclerotic heart disease of [place] coronary artery without angina pectoris Atrial fibrillation Back pain Bradycardia Chest pain CHF (congestive heart failure) CHI (closed head injury) Chronic anemia Confusion Congestive heart failure (CHF) COPD exacerbation Coronary artery disease Degenerative disc disease, lumbar Degenerative disk disease Delirium Diabetes Essential hypertension Fall Fall Former smoker GERD (gastroesophageal reflux disease) Hallucinations History of diabetes mellitus HLD (hyperlipidemia) Hypertension Hypertensive urgency Hypoxia Lower extremity edema Macrocytic anemia On home oxygen therapy Orthostatic hypotension Parkinson's disease Presence of stent in coronary artery (~05/12/21) Short-term memory loss Syncope Vertigo Home Medications ?Medication ?Instructions ?Recorded ?Last Taken ?Type aspirin 81 mg tablet,delayed 81 mg PO DAILY HEART HEALTH 08/16/23 02/16/24 History release (Bertin Low Dose Aspirin) atorvastatin 20 mg tablet 20 mg PO QHS CHOLESTEROL #90 tabs 08/16/23 Unknown Rx cyanocobalamin (vitamin B-12) 1,000 mcg PO DAILY SUPPLEMENT 02/06/24 Unknown History 1,000 mcg tablet albuterol sulfate 2.5 mg/3 mL 2.5 mg (3 mL) inhalation Q6H PRN 02/14/24 Unknown Rx (0.083 %) solution for nebulization SHORTNESS OF BREATH/WHEEZING #0 mL folic acid 1 mg tablet 1 mg PO DAILYCM #0 tabs 02/14/24 02/16/24 Rx food supplemt, lactose-reduced 120 ml PO 4X/DAY #0 mL 02/14/24 02/16/24 Rx 0.08 gram-1.5 kcal/mL oral liquid (Ensure Plus High Protein) lisinopril 20 mg tablet 20 mg PO DAILY #0 tabs 02/14/24 Unknown Rx omeprazole 20 mg capsule,delayed 20 mg PO DAILY 02/16/24 Unknown History release ferrous sulfate 325 mg (65 mg 325 mg PO DAILY #90 tabs 02/27/24 Unknown Rx iron) tablet nifedipine 30 mg tablet,extended 30 mg PO DAILY #90 tabs 02/27/24 Unknown Rx release 24 hr Lactobacillus acidophilus 1 cap PO BID PROBIOTIC 04/02/24 Unknown History (Acidophilus capsule) acetaminophen 325 mg tablet 650 mg PO Q4H PRN fever or pain 04/02/24 Unknown History bisacodyl 10 mg rectal suppository 10 mg IA DAILY PRN constipation 04/02/24 Unknown History dextrose 40 % oral gel (Gluco 1 ea PO PRN PRN hypoglycemia 04/02/24 Unknown History Burst) donepezil 10 mg tablet 10 mg PO QHS DEMENTIA 04/02/24 Unknown History donepezil 5 mg tablet 5 mg PO QPM DEMENTIA 04/02/24 Unknown History glucagon 1 mg/0.2 mL subcutaneous 1 mg subcut PRN PRN hypoglycemia 04/02/24 Unknown History auto-injector levetiracetam 500 mg tablet 500 mg PO BID 04/02/24 Unknown History (Keppra) magnesium hydroxide 400 mg/5 mL 30 ml PO DAILY PRN constipation 04/02/24 Unknown History oral suspension melatonin 1 mg chewable tablet 1 mg PO QHS INSOMNIA 04/02/24 Unknown History (Children's Sleep (melatonin)) sennosides 8.6 mg-docusate sodium 2 tab-cap PO DAILY PRN constipation 04/02/24 Unknown History 50 mg capsule (Senna Plus) tramadol 50 mg tablet 50 mg PO Q4H PRN pain 04/02/24 Unknown History Allergy/AdvReac Type Severity Reaction Status Date / Time cat dander (cats) Allergy Mild Rash Verified 02/26/24 01:05 Surgical History History of coronary artery stent placement Presence of coronary angioplasty implant and graft (~05/12/21) Social History household members: spouse housing: [facility] Smoking Status: Former smoker alcohol intake: never substance use type: does not use ROS ROS Narrative Unable to obtain secondary to mental status Vital Signs Vital Signs Vital Signs: 04/02/24 16:51 04/02/24 16:52 04/02/24 16:58 Temperature 88.5 F L 86.5 F L 86.5 F L Temperature Source Tympanic Tympanic Tympanic Pulse Rate 69 69 71 Respiratory Rate 23 H 28 H 23 H Respiratory Effort Respiratory Depth Respiratory Pattern Blood Pressure 156/100 H 156/100 H 156/100 H Blood Pressure Mean 118 118 118 Pulse Ox 95 70 89 Oxygen Delivery Method Bi-pap Nasal Cannula Bi-pap Oxygen Flow Rate (L/min) 6 Fraction of Inspired Oxygen (FIO2) 100 04/02/24 17:00 04/02/24 17:02 04/02/24 17:05 Temperature Temperature Source Pulse Rate 68 Respiratory Rate 20 H Respiratory Effort Short of Breath Labored Accessory Muscle Use Respiratory Depth Deep Respiratory Pattern Tachypnea Blood Pressure Blood Pressure Mean Pulse Ox 100 94 Oxygen Delivery Method Bi-pap Oxygen Flow Rate (L/min) Fraction of Inspired Oxygen (FIO2) 100 100 04/02/24 17:42 04/02/24 18:00 Temperature 94.9 F L Temperature Source Core Pulse Rate 66 58 L Respiratory Rate 20 H 24 H Respiratory Effort Respiratory Depth Respiratory Pattern Blood Pressure 78/60 L Blood Pressure Mean 66 Pulse Ox 98 Oxygen Delivery Method Bi-pap Oxygen Flow Rate (L/min) Fraction of Inspired Oxygen (FIO2) Weight Weight: 85.9 kg Body Mass Index (BMI) 27.9 Physical Exam Narrative General: Localize to pain, not wake up and answer questions meaningfully HEENT: Atraumatic, normocephalic Eyes: Anicteric, normal conjunctiva, extraocular movements grossly intact Neck: Supple Respiratory: On BiPAP, some coarse on the right side, normal respiratory effort Cardiovascular: Regular rate GI: Soft, nontender, nondistended Extremities: No edema Musculoskeletal: Moves extremities to painful stimuli Neuro: Unable to assess given mental status Skin: No rashes appreciated Psych: Patient unable to cooperate Results Lab / Micro Data 04/02/24 17:20 04/02/24 17:20 Labs: Laboratory Results - last 24 hr 04/02/24 17:20: WBC 7.4, RBC 3.31 L, Hgb 10.1 L, Hct 33.4 L, MCV 100.9 H, MCH 30.5, MCHC 30.2 L, RDW Std Deviation 62.4 H, RDW Coeff of Sophie 17.0 H, Plt Count 103 L, MPV 11.1, Immature Gran % (Auto) 0.300, Neut % (Auto) 76.5 H, Lymph % (Auto) 17.9 L, [place] % (Auto) 4.2, Eos % (Auto) 0.7, Baso % (Auto) 0.4, Absolute Neuts (auto) 5.7, Absolute Lymphs (auto) 1.33, Nucleated RBC % 0.3, PT 14.1, INR 1.1, APTT 27.8, Sodium 145, Potassium 4.4, Chloride 118 H, Carbon Dioxide 21.0, Anion Gap 6, BUN 57 H, Creatinine 2.38 H, Estim Creat Clear Calc 27.33, Est GFR (MDRD) Af Amer 34 L, Est GFR (MDRD) Non-Af 28 L, BUN/Creatinine Ratio 23.9 H, Glucose 102, Lactic Acid 2.7 H*, Calcium 9.1, Troponin I High Sens 8, Urine Color Yellow, Urine Clarity Cloudy, Urine pH 6.0, Ur Specific [employer] 1.020, Urine Protein 100 H, Urine Glucose (UA) Normal, Urine Ketones Negative, Urine Occult Blood 50 H, Urine Nitrite Negative, Urine Bilirubin Negative, Urine Urobilinogen Normal, Ur Leukocyte Esterase 500 H, Urine RBC 0 SEEN, Urine WBC 25-50 SEEN, Ur Squamous Epith Cells 0 SEEN, Urine Bacteria 1+, Urine Mucus 0 SEEN ABG Data ABG results: ABG 04/02/24 17:08 Specimen Type ART Sample Site L Radial pH 7.17 L* Bicarbonate Actual 21.1 L Total CO2 23 Base Excess -7 L O2 Saturation 89 L O2 % 6.0 ABG pCO2 57.7 H ABG pO2 73 L Jus Test Positive O2 Delivery Device Cannula Vent Mode Not entered Crit Call To/Read Back Yes Blood Gas Notified Whom jw Blood Gas Notified Time 17:09:39 Rhythm Strip Rhythm Strip: Sinus Rhythm Rate: 67 Ectopy: None Imaging Radiology Impression Chest X-Ray 04/02/24 17:32 IMPRESSION: Focal right lower lobe pneumonia. Electronically Signed: Diogo Hendricks MD at 17:42 EDT , Assessment & Plan Assessment/Plan (1) Hypoxia: (2) Pneumonia: PLAN: Plan #Acute hypoxic respiratory failure secondary to right upper lobe pneumonia- suspect sepsis -ABG on nasal cannula with pO2 of 73 and O2 sat 89, pH 7.17, additionally patient with lactic of 2.7 and creatinine 2.38 as well as altered mental status and systolic blood pressure less than 90 -Received sepsis fluids -Respiratory status now stable on BiPAP, O2 sat 100% -Incentive spirometer when patient able -Will check COVID and respiratory panels -Send cultures -IV antibiotics -Imaging: cxr suggestive of R pneumonia and UA suggestive of UTI -DuoNebs and as needed albuterol -Sputum culture, COVID and flu, respiratory panel -Urine antigens -Mucinex -Given severity of patient's illness will change to Zosyn and vancomycin -Patient had still been significantly hypotensive on my evaluation in ED though improving, daughter at bedside confirmed patient DNR and DNI and would not want central line, continue antibiotics and IV fluids at this time #AMS -Suspect secondary to hypoxia and infection -Treat underlying etiologies -Unclear why patient on Keppra, will continue and will need to clarify this # Concern for UTI -Culture sent -Continue antibiotics as above # AUGUSTIN -Creatinine is up from baseline and significantly worsened in just 5 hours -IV fluids -Treat hypoxia and hypotension # Elevated lactic acid -Suspect due to infection and volume depletion -Continue IVF #CAD s/p stenting in 2020 -Cont asa and statin # Hypertension -Patient presently hypotensive, continue IVF and hold home antihypertensives #GERD -Continue PPI #Hx afib per previous documentation -Hold home meds 2/2 hypotension -Does not seem to be on any anticoagulation #DVT ppx: Heparin subcu Mary Carmen Gardner MD Time spent in the patient's overall evaluation,decision-making process, review of diagnostic data, adjustment of management, discussion with other providers, nursing nursing and ancillary staff involved in patient's care documentation, 76 minutes Sepsis Attestation Possible Source of Sepsis: Pulmonary and Genitourinary Sepsis Organ Dysfunction Criteria Present: SBP < 90 mmHg or MAP < 65 mmHg, Acute Respiratory Failure (New need for BiPAP/CPAP or MV), Creatinine > 2.0 mg/dL, Lactic Acid > 2 mmol/L and New/Unexplained change in mental status Fluid Resuscitation Fluid resuscitation indicated?: Yes Fluid Resuscitation ordered: 30 ml/kg fluid bolus ordered Charges/Coding Visit Charges Inpatient E&M: 75684 Init Hosp L3
--- NOTE | 2024-04-02 20:42 | PCM.HOSP.N ---
Hospitalist Note Pressure is still been low despite IV fluids, discussed with daughter and they confirmed DNR and DNI but are okay with low-dose peripheral vasopressors in the ICU, order has been made for norepinephrine if patient is still hypotensive, patient to go to ICU
--- NOTE | 2024-04-02 20:52 | CPS ---
pt transported to icu on bipap-when arrived change mask to large-noticed redness to nose-nurse aware
[2024-04-02] MEDS: Vancomycin HCl 2,000 MG in 0.9% Normal Saline (500mL Bag) 500 ML 250 MG IV (21:12)
[2024-04-02] MEDS: 0.9% Normal Saline (1000mL) 1,000 ML 50 ML IV (21:13)
[2024-04-02 21:31] LABS: Reflex Lactate? Y
[2024-04-02] MEDS: Norepinephrine 8 MG in 0.9% Normal Saline (250mL Bag) 242 ML 9.4 MG CONT INF (21:34)
--- NOTE | 2024-04-02 21:47 | PCM.RX.CS ---
Consult Antibiotic Management Pharmacy has been consulted to manage selected antibiotic: Vancomycin Type of Intervention Type of Consult: New start Suspected Infection Suspected Infection: Pneumonia Labs Labs: Sodium 145 mmol/L (136-145) 04/02/24 17:20 Potassium 4.4 mmol/L (3.5-5.1) 04/02/24 17:20 Chloride 118 mmol/L (98-107) H 04/02/24 17:20 Carbon Dioxide 21.0 mmol/L (21.0-32.0) 04/02/24 17:20 Anion Gap 6 (5-15) 04/02/24 17:20 BUN 57 mg/dL (7-18) H 04/02/24 17:20 Creatinine 2.38 mg/dL (0.70-1.30) H 04/02/24 17:20 Est GFR (MDRD) Af Amer 34 mL/min (>60) L 04/02/24 17:20 Est GFR (MDRD) Non-Af 28 mL/min (>60) L 04/02/24 17:20 BUN/Creatinine Ratio 23.9 RATIO (10-20) H 04/02/24 17:20 Glucose 102 mg/dL (74-106) 04/02/24 17:20 Dosing Weight Weight used for dosin.5 kg Estimated Creatinine Clearance Estimated Creatinine Clearance: 27 Goal Trough Goal Trough: 15-20 mcg/mL Pharmacy Plan for Drug Dosing Pharmacy Plan for Drug Dosing: Pharmacy Service will continue to monitor and adjust dosing as required. Follow-Up Labs Follow-Up Labs: Trough: Vancomycin Date/Time Labs Ordered Labs to be done on [date and time ordered]: 04/04/24 @2030
[2024-04-02] MEDS: Heparin Injection (Vial) 5,000 UNIT/ML VIAL 5000 UNIT SC (22:46)
[2024-04-02 23:24] LABS: Lactic Acid 4.9 mmol/L (0.4-1.9)
[2024-04-03] VITALS (69 sets, daily range): BP systolic 54–211; BP diastolic 19–189; PULSE 62–104; RESP 12–27; TEMP 34.8–36.9; O2SAT 94–100; BMI 28.0
[2024-04-03] MEDS: Ipratropium/Albuterol Sulfate 3 ML AMPUL.NEB INHALATION ×4 (00:03→19:21)
[2024-04-03] MEDS: levETIRAcetam IV 500 MG in 0.9% Normal Saline (100mL Bag) 100 ML 420 MG IV ×2 (01:57→09:26)
[2024-04-03] MEDS: Albumin Human 25% (100 mL) 25 GM/100 ML BAG IV (01:58)
[2024-04-03 04:06] LABS: Absolute Lymphocyte Count 0.36 X10^3/uL (0.83-4.51); Absolute Neutrophil Count 4.9 X10^3/uL (2.0-7.7); Basophil# 0.02 X10^3/uL; Basophil% 0.3 % (0-1); Hemoglobin 8.7 g/dL (13.0-16.5); Lymphocyte # 0.36 X10^3/ul (0.83-4.51); Lymphocyte % 6.2 % (19-41); Mean Corpuscular Hgb 30.4 pg (27.0-32.0); Mean Corpuscular Volume 101.4 fL (80-94); Mean Platelet Vol. 11.6 fl (6.2-12.0); Monocyte# 0.52 X10^3/uL; Monocyte% 8.9 % (0-10); NRBC Flagged by Analyzer 0 % (0-5); Neutrophil # 4.93 X10^3/uL (2.7-7.7); Neutrophil % 84.4 % (47-70); POSITIVE COUNT YES; POSITIVE DIFFERENTIAL YES; POSITIVE MORPHOLOGY YES; Platelet Count 76 K/mm3 (150-450); RBC Distribution Width CV 17.1 % (11.6-14.6); RBC Distribution Width SD 62.3 fl (35.1-43.9); Red Blood Count 2.86 M/mm3 (4.6-6.2); White Blood Count 5.8 K/mm3 (4.4-11.0)
[2024-04-03 04:36] LABS: Anion Gap 10 (5-15); BUN 51 mg/dL (7-18); Calcium,Total 8.2 mg/dL (8.5-10.1); Chloride 122 mmol/L (98-107); Creatinine, Serum 2.04 mg/dL (0.70-1.30); EST Glomerular Filtration Rate 34 mL/min (>60); Est Glom Filt Rate - Afr Amer 41 mL/min (>60); Estimated Creatinine Clearance 30.92 ml/min; Glucose 106 mg/dL (74-106); Magnesium 1.8 mg/dL (1.6-2.6); Potassium 3.2 mmol/L (3.5-5.1); Sodium Level 150 mmol/L (136-145)
[2024-04-03 04:41] LABS: Differential Indicated SCAN CRITERIA MET
[2024-04-03 05:18] LABS: Anisocytosis 2+; Macrocytosis 1+; Platelet Estimate MOD DEC (ADEQ); Platelet Morphology GIANT; Polychromasia 1+
[2024-04-03 05:20] LABS: Differential Comment SCANNED
[2024-04-03] MEDS: Piperacil/Tazobactam 3.375 GM in 0.9% Normal Saline (50mL MB+) 50 ML IV ×3 (05:24→21:19)
--- NOTE | 2024-04-03 07:20 | CON.PCM.CC_ITS ---
Assessment & Plan Assessment/Plan (1) Respiratory failure: (2) History of COPD: PLAN: Plan RECOMMENDATIONS: 1. Wean Levophed as tolerated to maintain a mean arterial pressure at or above 65 mmHg. 2. Obtain follow-up ABG this morning. 3. Continue broad-spectrum antimicrobials. 4. Continue scheduled bronchodilator therapy. 5. Continue PPI therapy and appropriate DVT prophylaxis. 6. Recommend formal goals of care discussion with the patient's family, pending clinical course. IMPRESSIONS: 1. Septic shock The patient presented with sepsis due to probable pneumonia +/- UTI with acute sepsis related organ dysfunction as evidenced by acute kidney injury, fluid refractory hypotension requiring vasopressor support, altered mental status and lactic acidemia. The patient did receive sepsis fluid resuscitation and was initiated appropriately on vasopressor support to maintain hemodynamic stability. The patient will be continued on broad-spectrum antimicrobials, pending infectious workup. 2. Respiratory failure with hypoxemia and hypercapnia The patient has a reported history of COPD of unclear severity. In light of his presenting symptoms, the patient was initiated on BiPAP therapy. The patient is a DNR CCA without intubation. He is currently stable on BiPAP. Recommend obtaining follow-up ABG this morning. In the interim, continue scheduled bronchodilator therapy. 3. Acute kidney injury Most likely prerenal in etiology. Continue to monitor urine output. No current indication for renal replacement therapy. Will obtain renal ultrasound. 4. Encephalopathy Most likely metabolic in etiology due to his presenting sepsis and respiratory failure. It is unclear whether patient has been maintained on Keppra. This will need to be clarified with the patient's family. Otherwise, we will plan to obtain follow-up ABG this morning. TSH and ammonia will be checked. 5. History of coronary artery disease status post PCI/hypertension/GERD/atrial fibrillation/failure to thrive/history of COPD/Parkinson's Complicates care, management, recovery and prognosis. Continue to hold home antihypertensives. Recommend ongoing goals of care discussion with the patient's family, pending patient's clinical course. Currently, the patient remains DNR CCA without intubation. TIME: 38 minutes of critical care time, independent of procedures, was spent addressing the patient's septic shock, respiratory failure with hypoxemia and hypercapnia, acute kidney injury, encephalopathy, review of all data and collaboration with the care team. HPI Consult Data Date of Consult: 04/03/24 HPI Narrative Reason for Consultation: Altered mental status, respiratory failure HPI Narrative: The patient is a 78-year-old male, with a history as outlined below, who presented to the emergency department via EMS due to breathing difficulties. The patient has a known history of coronary artery disease, atrial fibrillation, hyperlipidemia, hypertension, orthostatic hypotension and COPD. History pertinent to his hospitalization was obtained primarily via chart review, as the patient is too encephalopathic to provide any additional details. On presentation to the emergency department, the patient had a documented temperature of 86.5 ?F. The patient was also tachypneic and hypotensive. Initial laboratory evaluation revealed a normal white blood cell count. Platelet count was low at 103,000. Coagulation profile was unremarkable. Arterial blood gas demonstrated a pH of 7.17 with a pCO2 of 57 and pO2 of 73. Chemistry profile was notable for a creatinine of 2.38 with a lactate of 2.7. Urine analysis was positive for leukocyte esterase and 1+ urine bacteria. Chest imaging demonstrated the presence of a right lower lobe pneumonia. The patient did receive supplemental IV fluid hydration, but remained hypotensive. The admitting hospitalist had a goals of care discussion with the patient's family, who indicated their wishes for the patient to be DNR CCA without intubation. They did not want to have a central venous catheter placed, but were okay with peripheral low-dose vasopressor support. The patient was started on broad- spectrum antimicrobials and admitted to the medical intensive care unit for further management. Overnight, the patient has been maintained on BiPAP with a FiO2 of 30%. He is currently requiring Levophed at 6 mcg/min to maintain hemodynamic stability. [facility] Medical History Confusion Fall History of diabetes mellitus Chronic anemia Adult failure to thrive Bradycardia Fall Acute alteration in mental status CHI (closed head injury) Anemia Essential hypertension Degenerative disk disease Congestive heart failure (CHF) On home oxygen therapy Atrial fibrillation Coronary artery disease Chest pain Lower extremity edema Macrocytic anemia Hallucinations Short-term memory loss Hypoxia Hypertensive urgency Anemia CHF (congestive heart failure) COPD exacerbation Acute respiratory failure with hypoxia Syncope Delirium Orthostatic hypotension Presence of stent in coronary artery (~05/12/21) Atherosclerotic heart disease of [place] coronary artery without angina pectoris HLD (hyperlipidemia) Anemia Vertigo Degenerative disc disease, lumbar Anxiety Diabetes GERD (gastroesophageal reflux disease) Former smoker Parkinson's disease Altered mental status Back pain Hypertension Home Medications ?Medication ?Instructions ?Recorded ?Last Taken ?Type aspirin 81 mg tablet,delayed 81 mg PO DAILY HEART HE[facility] 08/16/23 02/16/24 History release (Bertin Low Dose Aspirin) atorvastatin 20 mg tablet 20 mg PO QHS CHOLESTEROL #90 tabs 08/16/23 Unknown Rx cyanocobalamin (vitamin B-12) 1,000 mcg PO DAILY SUPPLEMENT 02/06/24 Unknown History 1,000 mcg tablet albuterol sulfate 2.5 mg/3 mL 2.5 mg (3 mL) inhalation Q6H PRN 02/14/24 Unknown Rx (0.083 %) solution for nebulization SHORTNESS OF BREATH/WHEEZING #0 mL folic acid 1 mg tablet 1 mg PO DAILYCM #0 tabs 02/14/24 02/16/24 Rx food supplemt, lactose-reduced 120 ml PO 4X/DAY #0 mL 02/14/24 02/16/24 Rx 0.08 gram-1.5 kcal/mL oral liquid (Ensure Plus High Protein) lisinopril 20 mg tablet 20 mg PO DAILY #0 tabs 02/14/24 Unknown Rx omeprazole 20 mg capsule,delayed 20 mg PO DAILY 02/16/24 Unknown History release ferrous sulfate 325 mg (65 mg 325 mg PO DAILY #90 tabs 02/27/24 Unknown Rx iron) tablet nifedipine 30 mg tablet,extended 30 mg PO DAILY #90 tabs 02/27/24 Unknown Rx release 24 hr Lactobacillus acidophilus 1 cap PO BID PROBIOTIC 04/02/24 Unknown History (Acidophilus capsule) acetaminophen 325 mg tablet 650 mg PO Q4H PRN fever or pain 04/02/24 Unknown History bisacodyl 10 mg rectal suppository 10 mg NM DAILY PRN constipation 04/02/24 Unknown History dextrose 40 % oral gel (Gluco 1 ea PO PRN PRN hypoglycemia 04/02/24 Unknown History Burst) donepezil 10 mg tablet 10 mg PO QHS DEMENTIA 04/02/24 Unknown History donepezil 5 mg tablet 5 mg PO QPM DEMENTIA 04/02/24 Unknown History glucagon 1 mg/0.2 mL subcutaneous 1 mg subcut PRN PRN hypoglycemia 04/02/24 Unknown History auto-injector levetiracetam 500 mg tablet 500 mg PO BID 04/02/24 Unknown History (Keppra) magnesium hydroxide 400 mg/5 mL 30 ml PO DAILY PRN constipation 04/02/24 Unknown History oral suspension melatonin 1 mg chewable tablet 1 mg PO QHS INSOMNIA 04/02/24 Unknown History (Children's Sleep (melatonin)) sennosides 8.6 mg-docusate sodium 2 tab-cap PO DAILY PRN constipation 04/02/24 Unknown History 50 mg capsule (Senna Plus) tramadol 50 mg tablet 50 mg PO Q4H PRN pain 04/02/24 Unknown History Allergy/AdvReac Type Severity Reaction Status Date / Time cat dander (cats) Allergy Mild Rash Verified 02/26/24 01:05 Surgical History History of coronary artery stent placement Presence of coronary angioplasty implant and graft (~05/12/21) Social History household members: spouse housing: long-term Smoking Status: Former smoker alcohol intake: never substance use type: does not use ROS Review of Systems ROS Unobtainable: due to mental status Physical Exam Const Constitutional Narrative: Lethargic and minimally responsive to painful stimuli. BiPAP in place. HEENT normocephalic and head/scalp atraumatic Eyes PERRL Neck supple General: trachea midline Chest inspection of chest normal Resp Resp Narrative: Globally diminished air movement without appreciable wheezes, rales or rhonchi. Cardio regular rate and regular rhythm GI normal to inspection, nondistended, normoactive bowel sounds Extremity General Extremity: edema; Negative for clubbing Skin no rashes or lesions noted Neuro no focal motor deficits Psych Mood & Affect: flat affect Lab / Micro Data 04/03/24 03:45 04/03/24 03:45 Labs: Laboratory Results - last 24 hr 04/02/24 17:20: WBC 7.4, RBC 3.31 L, Hgb 10.1 L, Hct 33.4 L, MCV 100.9 H, MCH 30.5, MCHC 30.2 L, RDW Std Deviation 62.4 H, RDW Coeff of Sophie 17.0 H, Plt Count 103 L, MPV 11.1, Immature Gran % (Auto) 0.300, Neut % (Auto) 76.5 H, Lymph % (Auto) 17.9 L, [place] % (Auto) 4.2, Eos % (Auto) 0.7, Baso % (Auto) 0.4, Absolute Neuts (auto) 5.7, Absolute Lymphs (auto) 1.33, Nucleated RBC % 0.3, PT 14.1, INR 1.1, APTT 27.8, Sodium 145, Potassium 4.4, Chloride 118 H, Carbon Dioxide 21.0, Anion Gap 6, BUN 57 H, Creatinine 2.38 H, Estim Creat Clear Calc 27.33, Est GFR (MDRD) Af Amer 34 L, Est GFR (MDRD) Non-Af 28 L, BUN/Creatinine Ratio 23.9 H, Glucose 102, Lactic Acid 2.7 H*, Calcium 9.1, Troponin I High Sens 8, Urine Color Yellow, Urine Clarity Cloudy, Urine pH 6.0, Ur Specific [place] 1.020, U rine Protein 100 H, Urine Glucose (UA) Normal, Urine Ketones Negative, Urine Occult Blood 50 H, Urine Nitrite Negative, Urine Bilirubin Negative, Urine Urobilinogen Normal, Ur Leukocyte Esterase 500 H, Urine RBC 0 SEEN, Urine WBC 25-50 SEEN, Ur Squamous Epith Cells 0 SEEN, Urine Bacteria 1+, Urine Mucus 0 SEEN 04/02/24 22:15: Lactic Acid 4.9 H* 04/03/24 03:45: WBC 5.8, RBC 2.86 L, Hgb 8.7 L, Hct 29.0 L, MCV 101.4 H, MCH 30.4, MCHC 30.0 L, RDW Std Deviation 62.3 H, RDW Coeff of Sophie 17.1 H, Plt Count 76 L, MPV 11.6, Immature Gran % (Auto) 0.200, Neut % (Auto) 84.4 H, Lymph % (Auto) 6.2 L, [place] % (Auto) 8.9, Eos % (Auto) 0.0, Baso % (Auto) 0.3, Absolute Neuts (auto) 4.9, Absolute Lymphs (auto) 0.36 L, Nucleated RBC % 0, Differential Comment SCANNED, Diff Path Review May foll, Platelet Estimate MOD DEC, Plt Morphology Comment GIANT, Polychromasia 1+, Anisocytosis 2+, Macrocytosis 1+, S odium 150 H, Potassium 3.2 L, Chloride 122 H, Carbon Dioxide 18.0 L, Anion Gap 10, BUN 51 H, Creatinine 2.04 H, Estim Creat Clear Calc 30.92, Est GFR (MDRD) Af Amer 41 L, Est GFR (MDRD) Non-Af 34 L, BUN/Creatinine Ratio 25.0 H, Glucose 106, Calcium 8.2 L, Magnesium 1.8 Micro: Microbiology 04/02/24 21:28 Mucosa - Nasopharyngeal Respiratory Panel (PCR) - Final 04/02/24 21:28 Mucosa - Nasopharyngeal SARS-CoV-2, Influenza & RSV (PCR) - Final 04/02/24 12:25 Urine Catheter - Pham Legionella Antigen - Final 04/02/24 12:25 Urine Catheter - Pham Streptococcus pneumoniae Antigen (M - Final ABG Data ABG results: ABG 04/02/24 17:08 Specimen Type ART Sample Site L Radial pH 7.17 L* Bicarbonate Actual 21.1 L Total CO2 23 Base Excess -7 L O2 Saturation 89 L O2 % 6.0 ABG pCO2 57.7 H ABG pO2 73 L Jus Test Positive O2 Delivery Device Cannula Vent Mode Not entered Crit Call To/Read Back Yes Blood Gas Notified Whom jw Blood Gas Notified Time 17:09:39 Rhythm Strip Rhythm Strip: Sinus Rhythm Rate: 67 Ectopy: None Imaging Radiology Impression Chest X-Ray 04/02/24 17:32 IMPRESSION: Focal right lower lobe pneumonia. Electronically Signed: Diogo Hendricks MD at 17:42 EDT , Charges/Coding Procedures Hospitalists Procedures: 16618 Critical Care 1st Hr
--- NOTE | 2024-04-03 07:27 | PCM.RX.CS ---
Documented by User: Carin Vann 04/03/24 07:29 Consult Antibiotic Management Pharmacy has been consulted to manage selected antibiotic: Vancomycin Type of Intervention Type of Consult: Follow-up Suspected Infection Suspected Infection: Pneumonia Labs Labs: Sodium 150 mmol/L (136-145) H 04/03/24 03:45 Potassium 3.2 mmol/L (3.5-5.1) L 04/03/24 03:45 Chloride 122 mmol/L (98-107) H 04/03/24 03:45 Carbon Dioxide 18.0 mmol/L (21.0-32.0) L 04/03/24 03:45 Anion Gap 10 (5-15) 04/03/24 03:45 BUN 51 mg/dL (7-18) H 04/03/24 03:45 Creatinine 2.04 mg/dL (0.70-1.30) H 04/03/24 03:45 Est GFR (MDRD) Af Amer 41 mL/min (>60) L 04/03/24 03:45 Est GFR (MDRD) Non-Af 34 mL/min (>60) L 04/03/24 03:45 BUN/Creatinine Ratio 25.0 RATIO (10-20) H 04/03/24 03:45 Glucose 106 mg/dL (74-106) 04/03/24 03:45 Microbiology Microbiology: Microbiology 04/02/24 21:28 Mucosa - Nasopharyngeal Respiratory Panel (PCR) - Final 04/02/24 21:28 Mucosa - Nasopharyngeal SARS-CoV-2, Influenza & RSV (PCR) - Final 04/02/24 12:25 Urine Catheter - Pham Legionella Antigen - Final 04/02/24 12:25 Urine Catheter - Pham Streptococcus pneumoniae Antigen (M - Final Pharmacy Plan for Drug Dosing Pharmacy Plan for Drug Dosing: DAILY ASSESSMENT Current Vancomycin Dose: 1000MG Q24 Number of Doses Received: 1 (2000MG loading dose) Current Renal Function: SCR 2.04 mg/dL Renal Function Trend: slightly improved (SCr 2.38mg/dL 04/02) Lab/Micro: blood and urine cultures pending Any Change in Vanc Plan: Yes, CrCl improved to 30mL/min, dose increased to 1250mg q24 Pending Level: 04/04/24 @ 2030 Pharmacy Service will continue to monitor and adjust dosing as required. Documented by User: Dr. Myles Perdomo MD 04/28/24 15:41 Consult Prior Doses of Antibiotics Prior Doses of Antibiotics Received/Current Regimen: 04/08/24 @ 1752 Patient received 2000mg loading dose 04/09/24 @ 0503 patient received 1250mg 04/09/24 @ 1810 patient received 1250mg Dosing Weight Weight used for dosin lb 9.93 oz Goal Trough Goal Trough: 15-20 mcg/mL Date/Time Labs Ordered Labs to be done on [date and time ordered]: 04/10/24 @ 1800 random level
[2024-04-03 07:36] LABS: Allen Test Positive; Base Excess -10 mmol/L (-2 to +2); Bicarbonate 15.3 mmol/L (22-26); Blood Gas Specimen Type ART; Comment 14/8 BIPAP; Mode Not entered; O2 Delivery Device BiPAP; PEEP 8; PO2 128 mmHG (75-100); RR 12; SITE L Radial; SO2 99 % (95-99); Total Carbon Dioxide 16 mmol/L; pCO2 27.3 mmHg (35-45); pH 7.36 (7.35-7.45)
--- NOTE | 2024-04-03 07:42 | PCM.PN.HOSP ---
Reason for Visit Reason for Visit: Diagnoses Pneumonia, unspecified organism (04/02/24) Hypoxemia (04/02/24) Subjective Subjective 78-year-old male with a history of hypertension, GERD, CAD with stenting, COPD, CHF who presented to [facility] ED 04/02/2024 due to hypoxia and altered mental status. Per the family's wishes and patient's prior wishes he has been DNR/DNI, getting an IV Levophed through peripheral IV lines, and has been on BiPAP. He is still altered and minimally responsive, but maintaining saturation on the BiPAP therapy. Had extensive discussion with the family bedside, they want to pursue all treatment before needing any in the end of intubation or cardiac arrest. At this time they opted to continue with the peripheral IV given the invasive nature of central line placement, but if there is deterioration we will consider the same. Objective Data Objective Data Vital Signs: Vital Signs Temp Pulse Resp BP Pulse Ox O2 Del Method O2 Flow Rate 94.6 F L 104 H 20 H 128/47 H 100 Bi-pap 6 04/03/24 00:00 04/03/24 07:07 04/03/24 07:07 04/03/24 06:30 04/03/24 07:07 04/03/24 06:30 04/02/24 16:52 FiO2 30 04/03/24 07:07 Oxygen Flow Rate (L/min) 6 Oxygen Delivery Method Bi-pap Weight: 185 lb 6.54 oz Body Mass Index (BMI) 28.0 Intake & Output: Intake and Output for Last 24 Hours 04/01/24 04/02/24 04/03/24 23:59 23:59 23:59 Intake Total 3326.93 / 3330.21 822.38 / 822.38 Output Total 250 / 250 Balance 3326.93 / 3330.21 572.38 / 572.38 Lab / Micro Data Lab results narrative: Acidosis is improved, improvement in lactate, creatinine is 2.04 improved from 2.38 from yesterday 04/03/24 03:45 04/03/24 03:45 Labs: Laboratory Results - last 24 hr 04/02/24 17:20: WBC 7.4, RBC 3.31 L, Hgb 10.1 L, Hct 33.4 L, MCV 100.9 H, MCH 30.5, MCHC 30.2 L, RDW Std Deviation 62.4 H, RDW Coeff of Sophie 17.0 H, Plt Count 103 L, MPV 11.1, Immature Gran % (Auto) 0.300, Neut % (Auto) 76.5 H, Lymph % (Auto) 17.9 L, [place] % (Auto) 4.2, Eos % (Auto) 0.7, Baso % (Auto) 0.4, Absolute Neuts (auto) 5.7, Absolute Lymphs (auto) 1.33, Nucleated RBC % 0.3, PT 14.1, INR 1.1, APTT 27.8, Sodium 145, Potassium 4.4, Chloride 118 H, Carbon Dioxide 21.0, Anion Gap 6, BUN 57 H, Creatinine 2.38 H, Estim Creat Clear Calc 27.33, Est GFR (MDRD) Af Amer 34 L, Est GFR (MDRD) Non-Af 28 L, BUN/Creatinine Ratio 23.9 H, Glucose 102, Lactic Acid 2.7 H*, Calcium 9.1, Troponin I High Sens 8, Urine Color Yellow, Urine Clarity Cloudy, Urine pH 6.0, Ur Specific [place] 1.020, Urine Protein 100 H, Urine Glucose (UA) Normal, Urine Ketones Negative, Urine Occult Blood 50 H, Urine Nitrite Negative, Urine Bilirubin Negative, Urine Urobilinogen Normal, Ur Leukocyte Esterase 500 H, Urine RBC 0 SEEN, Urine WBC 25-50 SEEN, Ur Squamous Epith Cells 0 SEEN, Urine Bacteria 1+, Urine Mucus 0 SEEN 04/02/24 22:15: Lactic Acid 4.9 H* 04/03/24 03:45: WBC 5.8, RBC 2.86 L, Hgb 8.7 L, Hct 29.0 L, MCV 101.4 H, MCH 30.4, MCHC 30.0 L, RDW Std Deviation 62.3 H, RDW Coeff of [place] 17.1 H, Plt Count 76 L, MPV 11.6, Immature Gran % (Auto) 0.200, Neut % (Auto) 84.4 H, Lymph % (Auto) 6.2 L, [place] % (Auto) 8.9, Eos % (Auto) 0.0, Baso % (Auto) 0.3, Absolute Neuts (auto) 4.9, Absolute Lymphs (auto) 0.36 L, Nucleated RBC % 0, Differential Comment SCANNED, Diff Path Review May foll, Platelet Estimate MOD DEC, Plt Morphology Comment GIANT, Polychromasia 1+, Anisocytosis 2+, Macrocytosis 1+, Sodium 150 H, Potassium 3.2 L, Chloride 122 H, Carbon Dioxide 18.0 L, Anion Gap 10, BUN 51 H, Creatinine 2.04 H, Estim Creat Clear Calc 30.92, Est GFR (MDRD) Af Amer 41 L, Est GFR (MDRD) Non-Af 34 L, BUN/Creatinine Ratio 25.0 H, Glucose 106, Calcium 8.2 L, Magnesium 1.8 Micro: Microbiology 04/02/24 21:28 Mucosa - Nasopharyngeal Respiratory Panel (PCR) - Final 04/02/24 21:28 Mucosa - Nasopharyngeal SARS-CoV-2, Influenza & RSV (PCR) - Final 04/02/24 12:25 Urine Catheter - Pham Legionella Antigen - Final 04/02/24 12:25 Urine Catheter - Pham Streptococcus pneumoniae Antigen (M - Final ABG Data ABG results: ABG 04/02/24 04/03/24 17:08 07:32 Specimen Type ART ART Sample Site L Radial L Radial pH 7.17 L* 7.36 Bicarbonate Actual 21.1 L 15.3 L Total CO2 23 16 Base Excess -7 L -10 L O2 Saturation 89 L 99 O2 % 6.0 30.0 ABG pCO2 57.7 H 27.3 L ABG pO2 73 L 128 H Jus Test Positive Positive Respiration Rate 12 O2 Delivery Device Cannula BiPAP Vent Mode Not entered Not entered POC PEEP 8 Crit Call To/Read Back Yes Blood Gas Notified Whom jw Blood Gas Notified Time 17:09:39 Clinical Comments 148 BIPAP Radiography Diagnostic Testing: Radiology Impression Chest X-Ray 04/02/24 17:32 IMPRESSION: Focal right lower lobe pneumonia. Electronically Signed: Diogo Hendricks MD at 17:42 EDT , Rhythm Strip Rhythm Strip: Sinus Rhythm Rate: 67 Ectopy: None Physical Exam Const Constitutional Narrative: AOx3, localizes pain, HEENT head/scalp atraumatic Eyes PERRL Resp Resp Narrative: Bilateral decreased breath sounds Cardio regular rate and regular rhythm GI normal to inspection, nondistended, normoactive bowel sounds Extremity normal to inspection Neuro Neuro Narrative: Unable to assess given the mental status, localizes pain Assessment & Plan Assessment/Plan (1) Acute alteration in mental status: (2) Acute respiratory acidosis: PLAN: Plan 78-year-old man with past medical history of coronary artery disease s/p PCI, atrial fibrillation, dyslipidemia, hypertension, COPD [not on home oxygen], orthostatic hypotension was brought to the ED with concerns regarding worsening acute on chronic respiratory failure and was found to have features of right upper lobe pneumonia and urinary tract infection. There was associated hypotension, suspected prerenal [place] on CKD, concerns for sepsis with shock. For this he has been admitted to the ICU, he is DNR CCA, no intubation, family refused central line placement but is okay with peripheral Levophed. #Sepsis with septic shock -Continue Zosyn and vancomycin -Improvement in oxygenation, acidosis, lactate levels after receiving sepsis fluids -Continue peripheral IV Levophed -Appreciate input by pulmonary medicine Dr. Estevez #Acute hypoxic respiratory failure secondary to right upper lobe pneumonia -Has a history of COPD -Continue BiPAP therapy, patient is DNR DNI -Improvement in oxygenation with BiPAP therapy #AMS -Suspect secondary to hypoxia and infection -Treat underlying etiologies -Discussed with patient's family, levetiracetam was started for concerns regarding seizures, they are unsure if he has a history of seizures but would like to take the medication off. Keppra has been discontinued. -TSH and ammonia are in normal range #Dementia -Hold home memantine for now # Concern for UTI -Culture sent -Continue antibiotics as above # Prerenal [place] -Continue fluid therapy as above -Continue to monitor creatinine #CAD s/p stenting in 2020 -Cont asa and statin # Hypertension -Patient presently hypotensive, continue IVF and hold home antihypertensives #GERD -Continue PPI #Hx afib per previous documentation -Hold home meds 2/2 hypotension -Does not seem to be on any anticoagulation #DVT ppx: Heparin subcu The overall prognosis of the patient, high risk of sudden cardiac arrest was discussed with the patient and the family, all their questions were answered Charges/Coding Visit Charges Inpatient E&M: 55812 Subs Hosp L3
--- NOTE | 2024-04-03 07:45 | US_ITS ---
STUDY: RENAL ULTRASOUND - COMPLETE REASON FOR EXAM: Male, 78 years old. AUGUSTIN TECHNIQUE: Ultrasound evaluation of the kidneys was performed with real-time and static vital-scale imaging. COMPARISON: None. FINDINGS: RIGHT KIDNEY: Normal location of the right kidney, which is normal in size. The right kidney measures 11.1 cm. Increased echogenicity of the renal cortex consistent with advanced age. The renal cortex measures 1.4 cm. 3 cm cyst midsection right kidney. There are no right renal calculi. There is no right hydronephrosis. DISTAL RIGHT URETER: There is non-visualization of the distal right ureter. There is no demonstrated right ureterovesical junction calculus. There is a visualized right ureteral jet. LEFT KIDNEY: Normal location of the left kidney, which is normal in size. The left kidney measures 10.0 cm. Increased echogenicity to renal cortex consistent with advanced age. The renal cortex measures 1.4 cm. There is no left renal mass or cyst. There are no left renal calculi. There is no left hydronephrosis. DISTAL LEFT URETER: There is non-visualization of the distal left ureter. There is no demonstrated left ureterovesical junction calculus. There is a visualized left ureteral jet. BLADDER: Pham catheter in collapsed bladder.. US/Kidney and Bladder IMPRESSION: No hydronephrosis to suggest obstruction. Electronically Signed: Diogo Hendricks MD at 9:23 EDT ,
[2024-04-03 09:01] LABS: Thyroid Stim Hormone (TSH) 1.53 uIU/mL (0.358-3.74)
[2024-04-03] MEDS: Heparin Injection (Vial) 5,000 UNIT/ML VIAL 5000 UNIT SC ×2 (09:01→19:51)
[2024-04-03] MEDS: Pantoprazole Sodium 40 MG in 0.9% Normal Saline (100mL MB+) 100 ML 330 MG IV (09:03)
[2024-04-03 12:36] LABS: Lactic Acid 2.4 mmol/L (0.4-1.9)
[2024-04-03 15:33] LABS: Reflex Lactate? Y
[2024-04-03 16:12] LABS: Lactic Acid 1.3 mmol/L (0.4-1.9)
[2024-04-03] MEDS: Vancomycin HCl 1,250 MG in 0.9% Normal Saline (250mL Bag) 250 ML 167 MG IV (19:49)
[2024-04-03] MEDS: 0.9% Saline Lock 10 ML Syringe IV (19:52)
[2024-04-04] VITALS (41 sets, daily range): BP systolic 92–145; BP diastolic 44–92; PULSE 61–88; RESP 12–28; TEMP 36.1–36.6; O2SAT 92–100; BMI 27.8
[2024-04-04] MEDS: Ipratropium/Albuterol Sulfate 3 ML AMPUL.NEB INHALATION ×4 (01:51→19:14)
[2024-04-04] MEDS: Piperacil/Tazobactam 3.375 GM in 0.9% Normal Saline (50mL MB+) 50 ML IV ×2 (05:09→12:49)
[2024-04-04] MEDS: Heparin Injection (Vial) 5,000 UNIT/ML VIAL 5000 UNIT SC (07:49)
[2024-04-04] MEDS: Pantoprazole Sodium 40 MG in 0.9% Normal Saline (100mL MB+) 100 ML 330 MG IV (07:58)
--- NOTE | 2024-04-04 09:25 | CPS ---
RT talked with RN. Placed pt on 2L BC at this time. Bipap on standby
--- NOTE | 2024-04-04 09:28 | CASEMGMT ---
Discharge Planning A list of?SNF providers including quality and resource use data and consistent with the patient's preferred geographic region, medical needs, and insurance network was created in [employer] Guide.? This list was provided to the Lillian Hollis Discharge Planning Asst.
[2024-04-04 09:29] LABS: Pathologist Review Reviewed
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
--- NOTE | 2024-04-04 12:31 | PCM.PN.HOSP ---
Reason for Visit Reason for Visit: Diagnoses Pneumonia, unspecified organism (04/02/24) Acute respiratory failure with hypercapnia (04/02/24) Respiratory failure, unspecified, unspecified whether with hypoxia or hypercapnia (04/02/24) Hypoxemia (04/02/24) Altered mental status, unspecified (04/02/24) Personal history of other diseases of the respiratory system (04/02/24) Subjective Subjective Off BiPAP and Levophed. Yesterday night, hemodynamically improved. No changes in sensorium overall. 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 Objective Data Objective Data Vital Signs: Vital Signs Temp Pulse Resp BP Pulse Ox O2 Del Method O2 Flow Rate 97.8 F 74 16 105/59 L 98 Room Air 2 04/04/24 12:00 04/04/24 12:00 04/04/24 12:00 04/04/24 12:00 04/04/24 12:00 04/04/24 12:00 04/04/24 09:25 FiO2 21 04/04/24 11:35 Oxygen Flow Rate (L/min) 2 Oxygen Delivery Method Room Air Weight: 182 lb 12.211 oz Body Mass Index (BMI) 27.8 Intake & Output: Intake and Output for Last 24 Hours 04/02/24 04/03/24 04/04/24 23:59 23:59 23:59 Intake Total 3326.93 / 3330.21 2494.51 / 2496.41 211.9 / 211.9 Output Total 975 / 1125 715 / 715 Balance 3326.93 / 3330.21 1519.51 / 1371.41 -503.1 / -503.1 Medical Nutrition Assessment Dietitian: Malnutrition Criteria Met Start: 04/04/24 09:22 Freq: Status: Active Protocol: Document 04/04/24 09:22 SUSHMA (Rec: 04/04/24 09:22 SUSHMA [id number]) Nutrition Malnutrition Evidence of Malnutrition Exists Yes Malnutrition (severe): Acute Illness/Injury Evidenced By Suboptimal Energy Intake ( Severe),Weight Loss (Severe) Clinical Problem Acute Disease or Injury Related Malnutrition Etiology related to reported inadequate energy intake Signs/Symptoms as evidenced by pt meeting <50 % of est nutritional needs and 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 Recommend 120mL ensure plus high protein 4x daily to provide supplemental energy if consumed Lab / Micro Data Attestation: I reviewed the patient's lab results. 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 coli 04/02/24 21:28 Mucosa - Nasopharyngeal Respiratory Panel (PCR) - Final 04/02/24 21:28 Mucosa - Nasopharyngeal SARS-CoV-2, Influenza & RSV (PCR) - Final 04/02/24 12:25 Urine Catheter - Pham Legionella Antigen - Final 04/02/24 12:25 Urine Catheter - Pham Streptococcus pneumoniae Antigen (M - Final Radiography Diagnostic Testing: Radiology Impression Renal Ultrasound 04/03/24 07:45 IMPRESSION: No hydronephrosis to suggest obstruction. Electronically Signed: Diogo Hendricks MD at 9:23 EDT , Rhythm Strip Rhythm Strip: Sinus Rhythm Rate: 67 Ectopy: None Physical Exam Const Constitutional Narrative: AO x 0, withdrawing to pain HEENT head/scalp atraumatic Neck no lymphadenopathy Resp Resp Narrative: Bilateral breath sounds present, conducted sounds present. Cardio regular rate and regular rhythm GI normal to inspection, nondistended, normoactive bowel sounds Extremity normal to inspection Neuro Neuro Narrative: AO x 0, withdraws to pain, moans to painful stimuli Assessment & Plan Assessment/Plan (1) History of COPD: (2) Acute alteration in mental status: PLAN: Plan 78-year-old man with past medical history of coronary artery disease s/p PCI, atrial fibrillation, dyslipidemia, hypertension, COPD [not on home oxygen], orthostatic hypotension was brought to the ED with concerns regarding worsening acute on chronic respiratory failure and was found to have features of right upper lobe pneumonia and urinary tract infection. There was associated hypotension, suspected prerenal AUGUSTIN on CKD, concerns for sepsis with shock. For this he has been admitted to the ICU, he is DNR CCA, no intubation, family refused central line placement but is okay with peripheral Levophed. #Sepsis with septic shock -Continue Zosyn and vancomycin -Improvement in oxygenation, acidosis, lactate levels after receiving sepsis fluids -He is off Levophed now -Appreciate input by pulmonary medicine Dr. 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 coli/Klebsiella pneumonia -Has a history of COPD -Maintaining saturation well on nasal cannula #AMS #Dementia -Suspect secondary to hypoxia and infection -Treat underlying etiologies -Discussed with patient's family, levetiracetam was started for concerns regarding seizures, they are unsure if he has a history of seizures but would like to take the medication off. Keppra has been discontinued. -TSH and ammonia are in normal range -If there is no improvement despite improvement in shock will consider MRI brain to rule out hypoxic ischemic encephalopathy #Dementia -Hold home memantine for now # Prerenal AUGUSTIN -Continue fluid therapy as above -Continue to monitor creatinine #CAD s/p stenting in 2020 -Cont asa and statin # Hypertension -Patient presently hypotensive, continue IVF and hold home antihypertensives #GERD -Continue PPI #Hx afib per previous documentation -Hold home meds 2/2 hypotension -Does not seem to be on any anticoagulation #DVT ppx: Heparin subcu Charges/Coding Multi Select Codes Visit Charges Visit Charges: 93991 Subs Hosp L3
[2024-04-04 13:03] LABS: Absolute Lymphocyte Count 0.78 X10^3/uL (0.83-4.51); Absolute Neutrophil Count 10.5 X10^3/uL (2.0-7.7); Basophil# 0.01 X10^3/uL; Basophil% 0.1 % (0-1); Eosinophil# 0.05 X10^3/uL; Eosinophils% 0.4 % (0-5); Hematocrit 20.1 % (40-54); Hemoglobin 6.4 g/dL (13.0-16.5); Lymphocyte # 0.78 X10^3/ul (0.83-4.51); Lymphocyte % 6.6 % (19-41); Mean Corp Hgb Conc 31.8 g/dL (32-36); Mean Corpuscular Hgb 31.2 pg (27.0-32.0); Mean Platelet Vol. 11.5 fl (6.2-12.0); Monocyte# 0.37 X10^3/uL; Monocyte% 3.1 % (0-10); NRBC Flagged by Analyzer 0 % (0-5); Neutrophil # 10.45 X10^3/uL (2.7-7.7); POSITIVE COUNT YES; POSITIVE MORPHOLOGY YES; Platelet Count 57 K/mm3 (150-450); RBC Distribution Width CV 17.4 % (11.6-14.6); RBC Distribution Width SD 61.1 fl (35.1-43.9); Red Blood Count 2.05 M/mm3 (4.6-6.2); White Blood Count 11.9 K/mm3 (4.4-11.0)
[2024-04-04 13:06] LABS: Differential Indicated SCAN CRITERIA MET
[2024-04-04 13:24] LABS: Platelet Estimate MOD DEC (ADEQ)
[2024-04-04 13:27] LABS: AST(SGOT) 37 U/L (15-37); Alanine Aminotransfer ALT/SGPT 21 U/L (16-61); Albumin, Serum 1.9 g/dL (3.2-5.0); Alkaline Phosphatase 77 U/L (45-117); Anion Gap 8 (5-15); BUN 43 mg/dL (7-18); BUN/Creat Ratio 30.1 RATIO (10-20); Bilirubin, Direct 0.24 mg/dL (0.00-0.30); Calcium,Total 7.5 mg/dL (8.5-10.1); Chloride 132 mmol/L (98-107); Creatinine, Serum 1.43 mg/dL (0.70-1.30); EST Glomerular Filtration Rate 51 mL/min (>60); Est Glom Filt Rate - Afr Amer 61 mL/min (>60); Estimated Creatinine Clearance 43.96 ml/min; Globulin 2.8 g/dL (2.2-4.2); Glucose 65 mg/dL (74-106); Potassium 3.1 mmol/L (3.5-5.1); Protein, Total 4.7 g/dL (6.4-8.2); Sodium Level 157 mmol/L (136-145)
--- NOTE | 2024-04-04 14:57 | PN.CC_ITS ---
Objective Data Objective Data Vital Signs: Vital Signs Last response 3 Temperature 36.6 C 04/04/24 12:00 Temperature Source Core 04/04/24 12:00 Pulse Rate 80 04/04/24 14:00 Pulse Strength Normal (2+) 04/04/24 08:14 Respiratory Rate 14 04/04/24 14:00 Respiratory Effort Normal, Non-Labored 04/04/24 11:35 Respiratory Depth Normal 04/04/24 11:35 Respiratory Pattern Normal 04/04/24 13:12 Blood Pressure 121/63 H 04/04/24 14:00 Blood Pressure Mean 82 04/04/24 14:00 Blood Pressure Source Monitor 04/04/24 14:00 Blood Pressure Position Semi-Fowlers 04/04/24 14:00 Blood Pressure Location Right Leg 04/04/24 14:00 Pulse Ox 98 04/04/24 14:00 Oxygen Delivery Method Room Air 04/04/24 14:00 Oxygen Flow Rate (L/min) 2 04/04/24 09:25 Fraction of Inspired Oxygen (FIO2) 21 04/04/24 11:35 I&O: I&O Last 24 Hours 3 04/03/24 04/04/24 04/04/24 23:59 11:59 23:59 Intake Total 1371.52 / 2496.41 211.9 / 211.9 Output Total 450 / 1125 455 / 715 260 / 715 Balance 921.52 / 1371.41 -243.1 / -503.1 -260 / -503.1 I&O: Total Stay 3 04/02/24 16:51 thru 04/04/24 12:00 Intake Total 6033.34 Output Total 1690 Balance 4343.34 Current Meds Ordered / Administered: Current meds ordered / Administered 3 Generic Name Dose Route Start Last Admin Trade Name Freq PRN Reason Stop Dose Admin Acetaminophen 650 mg 04/02/24 20:45 Acetaminophen 325 Mg Tablet PO Q6H PRN PRN Pain 1-10 Or Fever >100.7 Albuterol Sulfate 2.5 mg 04/02/24 20:45 Albuterol 2.5 Mg/3 Ml Vial.Neb. INHALATION Q2H PRN PRN SOB &/OR WHEEZING Albuterol/Ipratropium 3 ml 04/03/24 00:00 04/04/24 13:08 Ipratropium/Albuterol Sulfate 3 Ml Ampul.Neb INHALATION 3 ml Q6H.RT LESLY Administration Bisacodyl 10 mg 04/03/24 00:15 Bisacodyl 10 Mg Suppository RC DAILY PRN constipation Glucagon 1 mg 04/03/24 00:15 Glucagon 1 Mg/Ml Syringe SC PRN PRN hypoglycemia Guaifenesin 1,200 mg 04/02/24 22:00 04/04/24 07:49 Guaifenesin 1,200 Mg Tablet PO Not Given BID LESLY Heparin Sodium (Porcine) 5,000 unit 04/02/24 22:00 04/04/24 07:49 Heparin Injection (Vial) 5,000 Unit/Ml Vial SC 5,000 unit Q12 LESLY Administration Piperacillin Sod/Tazobactam 50 mls @ 12.5 mls/hr 04/03/24 06:00 04/04/24 12:49 Sod 3.375 gm/ Sodium Chloride IV 12.5 mls/hr Q8 LESLY Administration Vancomycin IV-PHARMACY TO DOSE 500 mls @ 250 mls/hr 04/02/24 20:45 1 each/ Sodium Chloride IV PRN PRN Rx to Dose Protocol Norepinephrine Bitartrate 8 mg 250 mls @ 9.375 mls/hr 04/02/24 20:45 04/04/24 08:30 / Sodium Chloride CONT INF Infused .[id number] LESLY Titration Protocol 5 MCG/MIN Sodium Chloride 250 mls @ 15 mls/hr 04/02/24 20:48 IV .[id number] PRN Additional IVPB Infusion Sodium Chloride 250 mls @ 15 mls/hr 04/02/24 20:48 IV .[id number] PRN Saline Flush Pantoprazole Sodium 40 mg/ 110 mls @ 330 mls/hr 04/03/24 10:00 04/04/24 08:23 Sodium Chloride IV Infused Q24 LESLY Infusion Vancomycin HCl 1,250 mg/ 275 mls @ 167 mls/hr 04/03/24 21:00 04/03/24 21:30 Sodium Chloride IV Infused Q24H LESLY Infusion Melatonin 3 mg 04/02/24 20:45 Melatonin 3 Mg Tablet PO QHS PRN PRN INSOMNIA Ondansetron HCl 4 mg 04/02/24 20:45 Ondansetron 4 Mg/2 Ml Vial IV Q8H PRN PRN NAUSEA/VOMITING Senna/Docusate Sodium 2 tablet 04/02/24 20:45 Senna/Docusate Sodium 1 Tablet PO BID PRN PRN Constipation Sodium Chloride 10 - 40 ml 04/02/24 20:48 04/03/24 19:52 0.9% Saline Lock 10 Ml Syringe IV 40 ml UD PRN Administration SALINE FLUSH Vancomycin Protocol 1 lab 04/04/24 18:30 Vancomycin Trough/Random Due MC 04/04/24 22:30 DAILY [facility] Medical Records Data Medical Nutrition Assessment Dietitian: Malnutrition Criteria Met Start: 04/04/24 09:22 Freq: Status: Active Protocol: Document 04/04/24 09:22 SLA (Rec: 04/04/24 09:22 SLA [id number]) Nutrition Malnutrition Evidence of Malnutrition Exists Yes Malnutrition (severe): Acute Illness/Injury Evidenced By Suboptimal Energy Intake ( Severe),Weight Loss (Severe) Clinical Problem Acute Disease or Injury Related Malnutrition Etiology related to reported inadequate energy intake Signs/Symptoms as evidenced by pt meeting <50 % of est nutritional needs and 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 Recommend 120mL ensure plus high protein 4x daily to provide supplemental energy if consumed Lab / Micro Data 04/04/24 12:45 04/04/24 12:45 Labs: Laboratory Results - last 24 hr 04/03/24 03:45: Diff Path Review Reviewed 04/03/24 15:40: Lactic Acid 1.3 04/04/24 12:45: WBC 11.9 H, RBC 2.05 L, Hgb 6.4 L, Hct 20.1 L, MCV 98.0 H, MCH 31.2, MCHC 31.8 L D, RDW Std Deviation 61.1 H, RDW Coeff of Sophie 17.4 H, Plt Count 57 L, MPV 11.5, Immature Gran % (Auto) 1.800 H, Neut % (Auto) 88.0 H, L ymph % (Auto) 6.6 L, Callahan % (Auto) 3.1, Eos % (Auto) 0.4, Baso % (Auto) 0.1, A bsolute Neuts (auto) 10.5 H, Absolute Lymphs (auto) 0.78 L, Nucleated RBC % 0, Platelet Estimate MOD DEC, Sodium 157 H, Potassium 3.1 L, Chloride 132 H*, C arbon Dioxide 17.0 L, Anion Gap 8, BUN 43 H, Creatinine 1.43 H, Estim Creat Clear Calc 43.96, Est GFR (MDRD) Af Amer 61, Est GFR (MDRD) Non-Af 51 L, B UN/Creatinine Ratio 30.1 H, Glucose 65 L, Calcium 7.5 L, Total Bilirubin 0.50, Direct Bilirubin 0.24, AST 37, ALT 21, Alkaline Phosphatase 77, Total Protein 4.7 L, Albumin 1.9 L, Globulin 2.8 Micro: Microbiology 04/03/24 18:30 Sputum, Induced/Lukens Gram Stain - Final 04/03/24 18:30 Sputum, Induced/Lukens Respiratory Culture - Preliminary GNR lactose wash driller 04/02/24 12:25 Urine, Catheterized Urine Culture - Final Presumptive E. coli Rhythm Strip Rhythm Strip: Sinus Rhythm Rate: 67 Ectopy: None Imaging Radiology Impression Renal Ultrasound 04/03/24 07:45 IMPRESSION: No hydronephrosis to suggest obstruction. Electronically Signed: Diogo Hendricks MD at 9:23 EDT , Assessment and Plan . Assessment and plan: Patient seen and examined Chart and data reviewed He is in no distress, but not really cooperative or even verbal Unclear baseline Breathing RA comfortably Vasopressors off UCX reveals GNR - narrowed ABX Doubt infectious PNA HGB and PLT falling - no gross bleeding noted Serum Na+ elevated PHYSICAL EXAM GEN NAD VS as above HEENT o/p clear NECK obese COR irreg CHEST CTA ABD soft, obese EXT no edema SKIN w/d TORITO NF ASSESSMENT 1. Acute respiratory failure - improved 2. Sepsis syndrome 3. UTI 4. Encephalopathy 5. Anemia/thrombocytopenia 6. Hypernatremia 7. AUGUSTIN 8. Chronic AF 9. 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
[2024-04-04] MEDS: Dextrose 5%-Water (1000mL Bag) 1,000 ML 150 ML IV ×2 (15:54→22:35)
[2024-04-04] MEDS: 0.9% Saline Lock 10 ML Syringe IV (21:41)
[2024-04-04] MEDS: Potassium Chloride 10mEq/100mL 10 MEQ/100 ML IV.SOLN. 100 MEQ IV BOLUS ×3 (21:42→23:50)
[2024-04-05] VITALS (31 sets, daily range): BP systolic 111–158; BP diastolic 54–117; PULSE 58–84; RESP 12–25; TEMP 35.9–37.3; O2SAT 93–100; BMI 28.3
[2024-04-05] MEDS: Potassium Chloride 10mEq/100mL 10 MEQ/100 ML IV.SOLN. 100 MEQ IV BOLUS ×5 (01:12→06:47)
[2024-04-05] MEDS: Albuterol 2.5 MG/3 ML VIAL.NEB. INHALATION (02:36)
[2024-04-05] MEDS: 0.9% Saline Lock 10 ML Syringe IV (03:20)
[2024-04-05 03:30] LABS: Absolute Lymphocyte Count 1.27 X10^3/uL (0.83-4.51); Absolute Neutrophil Count 11.8 X10^3/uL (2.0-7.7); Basophil# 0.03 X10^3/uL; Basophil% 0.2 % (0-1); Eosinophil# 0.12 X10^3/uL; Eosinophils% 0.9 % (0-5); Hematocrit 25.9 % (40-54); Hemoglobin 8.4 g/dL (13.0-16.5); Lymphocyte # 1.27 X10^3/ul (0.83-4.51); Lymphocyte % 9.2 % (19-41); Mean Corp Hgb Conc 32.4 g/dL (32-36); Mean Corpuscular Hgb 30.5 pg (27.0-32.0); Mean Corpuscular Volume 94.2 fL (80-94); Mean Platelet Vol. 12.9 fl (6.2-12.0); Monocyte# 0.43 X10^3/uL; Monocyte% 3.1 % (0-10); NRBC Flagged by Analyzer 0 % (0-5); Neutrophil # 11.83 X10^3/uL (2.7-7.7); POSITIVE COUNT YES; POSITIVE MORPHOLOGY YES; Platelet Count 60 K/mm3 (150-450); RBC Distribution Width CV 18.6 % (11.6-14.6); RBC Distribution Width SD 62.3 fl (35.1-43.9); Red Blood Count 2.75 M/mm3 (4.6-6.2); White Blood Count 13.8 K/mm3 (4.4-11.0)
[2024-04-05 03:38] LABS: Differential Indicated SCAN CRITERIA MET
[2024-04-05] MEDS: Dextrose 5%-Water (1000mL Bag) 1,000 ML 150 ML IV ×3 (04:48→18:31)
[2024-04-05 05:14] LABS: ALB/GLOB Ratio 0.6 RATIO (0.9-2.4); AST(SGOT) 62 U/L (15-37); Alanine Aminotransfer ALT/SGPT 30 U/L (16-61); Albumin, Serum 2.1 g/dL (3.2-5.0); Alkaline Phosphatase 94 U/L (45-117); Anion Gap 6 (5-15); BUN 41 mg/dL (7-18); BUN/Creat Ratio 27.3 RATIO (10-20); Calcium,Total 8.3 mg/dL (8.5-10.1); Chloride 123 mmol/L (98-107); EST Glomerular Filtration Rate 48 mL/min (>60); Est Glom Filt Rate - Afr Amer 58 mL/min (>60); Estimated Creatinine Clearance 42.32 ml/min; Globulin 3.4 g/dL (2.2-4.2); Glucose 138 mg/dL (74-106); Potassium 4.2 mmol/L (3.5-5.1); Protein, Total 5.5 g/dL (6.4-8.2); Sodium Level 148 mmol/L (136-145)
[2024-04-05 05:45] LABS: Differential Comment SCANNED
[2024-04-05] MEDS: Ipratropium/Albuterol Sulfate 3 ML AMPUL.NEB INHALATION ×3 (07:07→19:30)
--- NOTE | 2024-04-05 07:35 | PN.HOSP_ITS ---
Reason for Visit Reason for Visit: Diagnoses Pneumonia, unspecified organism (04/02/24) Acute respiratory failure with hypercapnia (04/02/24) Respiratory failure, unspecified, unspecified whether with hypoxia or hypercapnia (04/02/24) Hypoxemia (04/02/24) Altered mental status, unspecified (04/02/24) Personal history of other diseases of the respiratory system (04/02/24) Objective Data Objective Data Vital Signs: Vital Signs Temp Pulse Resp BP Pulse Ox O2 Del Method O2 Flow Rate 96.7 F L 78 16 153/87 H 98 Room Air 2 04/05/24 05:00 04/05/24 07:09 04/05/24 07:09 04/05/24 07:00 04/05/24 07:09 04/05/24 07:09 04/04/24 09:25 FiO2 21 04/05/24 07:00 Oxygen Flow Rate (L/min) 2 Oxygen Delivery Method Room Air Weight: 186 lb 11.704 oz Body Mass Index (BMI) 28.3 Intake & Output: Intake and Output for Last 24 Hours 04/03/24 04/04/24 04/05/24 23:59 23:59 23:59 Intake Total 2494.51 / 2496.41 1461.9 / 1461.9 1433.5 / 1433.5 Output Total 975 / 1125 1065 / 1315 500 / 500 Balance 1519.51 / 1371.41 396.9 / 146.9 933.5 / 933.5 Medical Nutrition Assessment Dietitian: Malnutrition Criteria Met Start: 04/04/24 09:22 Freq: Status: Active Protocol: Document 04/04/24 09:22 SUSHMA (Rec: 04/04/24 09:22 [facility] [id number]) Nutrition Malnutrition Evidence of Malnutrition Exists Yes Malnutrition (severe): Acute Illness/Injury Evidenced By Suboptimal Energy Intake ( Severe),Weight Loss (Severe) Clinical Problem Acute Disease or Injury Related Malnutrition Etiology related to reported inadequate energy intake Signs/Symptoms as evidenced by pt meeting <50 % of est nutritional needs and 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 Recommend 120mL ensure plus high protein 4x daily to provide supplemental energy if consumed Lab / Micro Data 04/05/24 03:15 04/05/24 04:10 Labs: Laboratory Results - last 24 hr 04/03/24 03:45: Diff Path Review Reviewed 04/04/24 12:45: WBC 11.9 H, RBC 2.05 L, Hgb 6.4 L, Hct 20.1 L, MCV 98.0 H, MCH 31.2, MCHC 31.8 L D, RDW Std Deviation 61.1 H, RDW Coeff of Sophie 17.4 H, Plt Count 57 L, MPV 11.5, Immature Gran % (Auto) 1.800 H, Neut % (Auto) 88.0 H, L ymph % (Auto) 6.6 L, [place] % (Auto) 3.1, Eos % (Auto) 0.4, Baso % (Auto) 0.1, A bsolute Neuts (auto) 10.5 H, Absolute Lymphs (auto) 0.78 L, Nucleated RBC % 0, Platelet Estimate MOD DEC, Sodium 157 H, Potassium 3.1 L, Chloride 132 H*, C arbon Dioxide 17.0 L, Anion Gap 8, BUN 43 H, Creatinine 1.43 H, Estim Creat Clear Calc 43.96, Est GFR (MDRD) Af Amer 61, Est GFR (MDRD) Non-Af 51 L, B UN/Creatinine Ratio 30.1 H, Glucose 65 L, Calcium 7.5 L, Total Bilirubin 0.50, Direct Bilirubin 0.24, AST 37, ALT 21, Alkaline Phosphatase 77, Total Protein 4.7 L, Albumin 1.9 L, Globulin 2.8 04/04/24 21:02: Blood Type AB NEGATIVE, Antibody Screen NEGATIVE, Crossmatch See Detail 04/05/24 03:15: WBC 13.8 H, RBC 2.75 L, Hgb 8.4 L, Hct 25.9 L, MCV 94.2 H, MCH 30.5, MCHC 32.4, RDW Std Deviation 62.3 H, RDW Coeff of Sophie 18.6 H, Plt Count 60 L, MPV 12.9 H, Immature Gran % (Auto) 0.600, Neut % (Auto) 86.0 H, Lymph % (Auto) 9.2 L, [place] % (Auto) 3.1, Eos % (Auto) 0.9, Baso % (Auto) 0.2, Absolute Neuts (auto) 11.8 H, Absolute Lymphs (auto) 1.27, Nucleated RBC % 0, Differential Comment SCANNED, Sodium Cancelled, Potassium Cancelled, Chloride Cancelled, Carbon Dioxide Cancelled, Anion Gap Cancelled, BUN Cancelled, Creatinine Cancelled, Estim Creat Clear Calc Cancelled, Est GFR (MDRD) Af Amer Cancelled, Est GFR (MDRD) Non-Af Cancelled, BUN/Creatinine Ratio Cancelled, Glucose Cancelled, Calcium Cancelled, Total Bilirubin Cancelled, AST Cancelled, ALT Cancelled, Alkaline Phosphatase Cancelled, Total Protein Cancelled, Albumin Cancelled, Globulin Cancelled, Albumin/Globulin Ratio Cancelled 04/05/24 04:10: Sodium 148 H, Potassium 4.2, Chloride 123 H, Carbon Dioxide 19.0 L, Anion Gap 6, BUN 41 H, Creatinine 1.50 H, Estim Creat Clear Calc 42.32, Est GFR (MDRD) Af Amer 58 L, Est GFR (MDRD) Non-Af 48 L, BUN/Creatinine Ratio 27.3 H , Glucose 138 H, Calcium 8.3 L, Total Bilirubin 0.70, AST 62 H, ALT 30, Alkaline Phosphatase 94, Total Protein 5.5 L, Albumin 2.1 L, Globulin 3.4, A lbumin/Globulin Ratio 0.6 L Micro: Microbiology 04/02/24 17:20 Blood Culture (Wb) - Right Wrist Blood Culture - Preliminary No growth in 48 hours. 04/02/24 Unknown Blood Culture (Wb) - Anticubital Left Blood Culture - Preliminary No growth in 48 hours. 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 coli 04/02/24 21:28 Mucosa - Nasopharyngeal Respiratory Panel (PCR) - Final 04/02/24 21:28 Mucosa - Nasopharyngeal SARS-CoV-2, Influenza & RSV (PCR) - Final 04/02/24 12:25 Urine Catheter - Pham Legionella Antigen - Final 04/02/24 12:25 Urine Catheter - Pham Streptococcus pneumoniae Antigen (M - Final Radiography Diagnostic Testing: Radiology Impression Renal Ultrasound 04/03/24 07:45 IMPRESSION: No hydronephrosis to suggest obstruction. Electronically Signed: Diogo Hendricks MD at 9:23 EDT , Rhythm Strip Rhythm Strip: Sinus Rhythm Rate: 67 Ectopy: None Physical Exam Narrative Seen and examined. The patient's daughter and grandson present in the morning rounds. Patient is still confused, nonverbal noncommunicative. Does not open eyes spontaneously but sometimes up open. Responding to touch On oxygen through nasal cannula. Physical exam General: Alert, Oriented x3, Cooperative HEENT: Atraumatic, PERRLA, EOMI, Normocephalic Oral: No Gingival or Mucosal Lesions/ Ulcerations Neck: Supple, No JVD, Negative Carotid Bruits Chest wall/Lungs: Air entry diminished in bilateral lung bases. No crepitation/rhonchi Cardiovascular: Regular rate, Regular Rhythm, Normal S1, Normal S2, No M/G/R Abdomen: Bowel Sounds Present, Soft, Non Tender, Non-Distended : No dysuria. No renal angle tenderness. No suprapubic tenderness. Extremities: Generalized swelling of all 4 extremities. Capillary Refill Less than 3 Seconds Skin: Bruise present on the right forearm at previous IV line. No induration, tenderness or physical signs of thrombophlebitis Musculoskeletal: No Tenderness to Palpation of Joints or Extremities. ROM restricted. Neurological: Cranial nerves II-XII grossly intact, DTR 2+/4. Does not follow command. GCS 8, E3 V1 M4 Psych/Mental Status: Flat affect. Assessment & Plan Assessment/Plan (1) History of COPD: (2) Acute alteration in mental status: PLAN: Plan 78-year-old man with past medical history of coronary artery disease s/p PCI, atrial fibrillation, dyslipidemia, hypertension, COPD [not on home oxygen], orthostatic hypotension was brought to the ED with concerns regarding worsening acute on chronic respiratory failure and was found to have features of right upper lobe pneumonia and urinary tract infection. There was associated hypotension, suspected prerenal AUGUSTIN on CKD, concerns for sepsis with shock. For this he has been admitted to the ICU, he is DNR CCA, no intubation, family refused central line placement but is okay with peripheral Levophed. #Sepsis with septic shock -Continue Zosyn and vancomycin -Improvement in oxygenation, acidosis, lactate levels after receiving sepsis fluids -He is off Levophed now -Appreciate input by pulmonary medicine Dr. Estevez 04/05: Patient maintaining blood pressure. On IV antibiotic ceftriaxone. Blood cultures x 2 no growth for 48 hours. 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 coli/Klebsiella pneumonia -Has a history of COPD -Maintaining saturation well on nasal cannula 04/05 on oxygen through nasal cannula. #AMS/encephalopathy, exact etiology unclear #Dementia -Suspect secondary to hypoxia and infection -Treat underlying etiologies -Discussed with patient's family, levetiracetam was started for concerns regarding seizures, they are unsure if he has a history of seizures but would like to take the medication off. Keppra has been discontinued. -TSH and ammonia are in normal range 04/05-If there is no improvement despite improvement in shock will consider MRI brain to rule out hypoxic ischemic encephalopathy #Dementia -Hold home memantine for now # Prerenal AUGUSTIN -Continue fluid therapy as above -Continue to monitor creatinine 04/05: Creatinine 1.5. BUN 41. #CAD s/p stenting in 2020 -Cont asa and statin # Hypertension -Patient presently hypotensive, continue IVF and hold home antihypertensives #GERD -Continue PPI #Hx afib per previous documentation -Hold home meds 2/2 hypotension -Does not seem to be on any anticoagulation #DVT ppx: Heparin subcu Total time of the visit including total time spent in counseling or coordination of care, (more than 50% of the total time, spent in obtaining medical information from nurses and other ancillary care providers,explaining to the patient about labs, imaging, diagnosis and management of active complex medical conditions), discussion with nursing staff, clinical update given to patient's daughter and grandson, review of labs and imaging is 40 minutes. Microbiology Past 72 Hours 04/03/24 18:30 Sputum, Induced/Lukens Gram Stain - Final 04/03/24 18:30 Sputum, Induced/Lukens Respiratory Culture - Preliminary Klebsiella pneumoniae sp pneum 04/02/24 17:20 Blood Culture (Wb) - Right Wrist Blood Culture - Preliminary No growth in 48 hours. 04/02/24 Unknown Blood Culture (Wb) - Anticubital Left Blood Culture - Preliminary No growth in 48 hours. 04/02/24 12:25 Urine, Catheterized Urine Culture - Final Presumptive E. coli 04/02/24 21:28 Mucosa - Nasopharyngeal Respiratory Panel (PCR) - Final 04/02/24 21:28 Mucosa - Nasopharyngeal SARS-CoV-2, Influenza & RSV (PCR) - Final 04/02/24 12:25 Urine Catheter - Pham Legionella Antigen - Final 04/02/24 12:25 Urine Catheter - Pham Streptococcus pneumoniae Antigen (M - Final Laboratory Results 04/04/24 12:45: Sodium 157 H, Potassium 3.1 L, Chloride 132 H*, Carbon Dioxide 17.0 L, Anion Gap 8, BUN 43 H, Creatinine 1.43 H, Estim Creat Clear Calc 43.96, Est GFR (MDRD) Af Amer 61, Est GFR (MDRD) Non-Af 51 L, BUN/Creatinine Ratio 30.1 H, Glucose 65 L, Calcium 7.5 L, Total Bilirubin 0.50, Direct Bilirubin 0.24, AST 37, ALT 21, Alkaline Phosphatase 77, Total Protein 4.7 L, Albumin 1.9 L, Globulin 2.8 04/04/24 21:02: Blood Type AB NEGATIVE, Antibody Screen NEGATIVE, Crossmatch See Detail 04/05/24 03:15: WBC 13.8 H, RBC 2.75 L, Hgb 8.4 L, Hct 25.9 L, MCV 94.2 H, MCH 30.5, MCHC 32.4, RDW Std Deviation 62.3 H, RDW Coeff of Sophie 18.6 H, Plt Count 60 L, MPV 12.9 H, Immature Gran % (Auto) 0.600, Neut % (Auto) 86.0 H, Lymph % (Auto) 9.2 L, [place] % (Auto) 3.1, Eos % (Auto) 0.9, Baso % (Auto) 0.2, Absolute Neuts (auto) 11.8 H, Absolute Lymphs (auto) 1.27, Nucleated RBC % 0, Differential Comment SCANNED, Sodium Cancelled, Potassium Cancelled, Chloride Cancelled, Carbon Dioxide Cancelled, Anion Gap Cancelled, BUN Cancelled, Creatinine Cancelled, Estim Creat Clear Calc Cancelled, Est GFR (MDRD) Af Amer Cancelled, Est GFR (MDRD) Non-Af Cancelled, BUN/Creatinine Ratio Cancelled, Glucose Cancelled, Calcium Cancelled, Total Bilirubin Cancelled, AST Cancelled, ALT Cancelled, Alkaline Phosphatase Cancelled, Total Protein Cancelled, Albumin Cancelled, Globulin Cancelled, Albumin/Globulin Ratio Cancelled 04/05/24 04:10: Sodium 148 H, Potassium 4.2, Chloride 123 H, Carbon Dioxide 19.0 L, Anion Gap 6, BUN 41 H, Creatinine 1.50 H, Estim Creat Clear Calc 42.32, Est GFR (MDRD) Af Amer 58 L, Est GFR (MDRD) Non-Af 48 L, BUN/Creatinine Ratio 27.3 H , Glucose 138 H, Calcium 8.3 L, Total Bilirubin 0.70, AST 62 H, ALT 30, Alkaline Phosphatase 94, Total Protein 5.5 L, Albumin 2.1 L, Globulin 3.4, A lbumin/Globulin Ratio 0.6 L
[2024-04-05] MEDS: Pantoprazole Sodium 40 MG in 0.9% Normal Saline (100mL MB+) 100 ML 330 MG IV (09:30)
[2024-04-05] MEDS: Ceftriaxone 1 GM/50 ML BAG IV (09:56)
--- NOTE | 2024-04-05 13:11 | CPS ---
pt on 5L NC at this time. RT decreased pt to 4L NC, RN aware.
--- NOTE | 2024-04-05 16:11 | PCM.PN.TICU ---
Objective Data Objective Data Vital Signs: Vital Signs Last response Temperature 36.6 C 04/05/24 12:00 Temperature Source Core 04/05/24 12:00 Pulse Rate 64 04/05/24 15:00 Pulse Strength Normal (2+) 04/05/24 09:58 Respiratory Rate 18 04/05/24 15:00 Respiratory Effort Normal, Non-Labored 04/05/24 12:00 Respiratory Depth Normal 04/05/24 12:00 Respiratory Pattern Tachypnea 04/05/24 12:00 Blood Pressure 136/58 H 04/05/24 15:00 Blood Pressure Mean 84 04/05/24 15:00 Blood Pressure Source Monitor 04/05/24 15:00 Blood Pressure Position Semi-Fowlers 04/05/24 15:00 Blood Pressure Location Right Leg 04/05/24 15:00 Pulse Ox 98 04/05/24 15:00 Oxygen Delivery Method Nasal Cannula 04/05/24 15:00 Oxygen Flow Rate (L/min) 2 04/05/24 15:00 Fraction of Inspired Oxygen (FIO2) 21 04/05/24 07:00 I&O: I&O Last 24 Hours 04/04/24 04/05/24 04/05/24 23:59 11:59 23:59 Intake Total 1250 / 1461.9 2693.5 / 2693.5 Output Total 610 / 1315 500 / 700 200 / 700 Balance 640 / 146.9 2193.5 / 1993.5 -200 / 1993.5 I&O: Total Stay 04/02/24 16:51 thru 04/05/24 12:00 Intake Total 9976.84 Output Total 2740 Balance 7236.84 Current Meds Ordered / Administered: Current meds ordered / Administered Generic Name Dose Route Start Last Admin Trade Name Freq PRN Reason Stop Dose Admin Acetaminophen 650 mg 04/02/24 20:45 Acetaminophen 325 Mg Tablet PO Q6H PRN PRN Pain 1-10 Or Fever >100.7 Albuterol Sulfate 2.5 mg 04/02/24 20:45 04/05/24 02:36 Albuterol 2.5 Mg/3 Ml Vial.Neb. INHALATION 2.5 mg Q2H PRN PRN Administration SOB &/OR WHEEZING Albuterol/Ipratropium 3 ml 04/03/24 00:00 04/05/24 13:01 Ipratropium/Albuterol Sulfate 3 Ml Ampul.Neb INHALATION 3 ml Q6H.RT LESLY Administration Bisacodyl 10 mg 04/03/24 00:15 Bisacodyl 10 Mg Suppository RC DAILY PRN constipation Glucagon 1 mg 04/03/24 00:15 Glucagon 1 Mg/Ml Syringe SC PRN PRN hypoglycemia Guaifenesin 1,200 mg 04/02/24 22:00 04/05/24 09:18 Guaifenesin 1,200 Mg Tablet PO Not Given BID LESLY Norepinephrine Bitartrate 8 mg 250 mls @ 9.375 mls/hr 04/02/24 20:45 04/05/24 01:12 / Sodium Chloride CONT INF Not Given .[id number] LESLY Protocol 5 MCG/MIN Sodium Chloride 250 mls @ 15 mls/hr 04/02/24 20:48 IV .[id number] PRN Additional IVPB Infusion Sodium Chloride 250 mls @ 15 mls/hr 04/02/24 20:48 IV .[id number] PRN Saline Flush Pantoprazole Sodium 40 mg/ 110 mls @ 330 mls/hr 04/03/24 10:00 04/05/24 09:53 Sodium Chloride IV Infused Q24 LESLY Infusion Dextrose 1,000 mls @ 150 mls/hr 04/04/24 15:30 04/05/24 12:00 IV 150 mls/hr .[id number] LESLY Administration Ceftriaxone Sodium 1 gm in 50 mls @ 100 mls/hr 04/05/24 10:00 04/05/24 10:47 Rocephin IV Infused Q24 LESLY Infusion Melatonin 3 mg 04/02/24 20:45 Melatonin 3 Mg Tablet PO QHS PRN PRN INSOMNIA Ondansetron HCl 4 mg 04/02/24 20:45 Ondansetron 4 Mg/2 Ml Vial IV Q8H PRN PRN NAUSEA/VOMITING Senna/Docusate Sodium 2 tablet 04/02/24 20:45 Senna/Docusate Sodium 1 Tablet PO BID PRN PRN Constipation Sodium Chloride 10 - 40 ml 04/02/24 20:48 04/05/24 03:20 0.9% Saline Lock 10 Ml Syringe IV 20 ml UD PRN Administration SALINE FLUSH Medical Records Data Medical Nutrition Assessment Dietitian: Malnutrition Criteria Met Start: 04/04/24 09:22 Freq: Status: Active Protocol: Document 04/04/24 09:22 [facility] (Rec: 04/04/24 09:22 [facility] [id number]) Nutrition Malnutrition Evidence of Malnutrition Exists Yes Malnutrition (severe): Acute Illness/Injury Evidenced By Suboptimal Energy Intake ( Severe),Weight Loss (Severe) Clinical Problem Acute Disease or Injury Related Malnutrition Etiology related to reported inadequate energy intake Signs/Symptoms as evidenced by pt meeting <50 % of est nutritional needs and 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 Recommend 120mL ensure plus high protein 4x daily to provide supplemental energy if consumed Lab / Micro Data 04/05/24 03:15 04/05/24 04:10 Labs: Laboratory Results - last 24 hr 04/04/24 21:02: Blood Type AB NEGATIVE, Antibody Screen NEGATIVE, Crossmatch See Detail 04/05/24 03:15: WBC 13.8 H, RBC 2.75 L, Hgb 8.4 L, Hct 25.9 L, MCV 94.2 H, MCH 30.5, MCHC 32.4, RDW Std Deviation 62.3 H, RDW Coeff of Sophie 18.6 H, Plt Count 60 L, MPV 12.9 H, Immature Gran % (Auto) 0.600, Neut % (Auto) 86.0 H, Lymph % (Auto) 9.2 L, [place] % (Auto) 3.1, Eos % (Auto) 0.9, Baso % (Auto) 0.2, Absolute Neuts (auto) 11.8 H, Absolute Lymphs (auto) 1.27, Nucleated RBC % 0, Differential Comment SCANNED, Sodium Cancelled, Potassium Cancelled, Chloride Cancelled, Carbon Dioxide Cancelled, Anion Gap Cancelled, BUN Cancelled, Creatinine Cancelled, Estim Creat Clear Calc Cancelled, Est GFR (MDRD) Af Amer Cancelled, Est GFR (MDRD) Non-Af Cancelled, BUN/Creatinine Ratio Cancelled, Glucose Cancelled, Calcium Cancelled, Total Bilirubin Cancelled, AST Cancelled, ALT Cancelled, Alkaline Phosphatase Cancelled, Total Protein Cancelled, Albumin Cancelled, Globulin Cancelled, Albumin/Globulin Ratio Cancelled 04/05/24 04:10: Sodium 148 H, Potassium 4.2, Chloride 123 H, Carbon Dioxide 19.0 L, Anion Gap 6, BUN 41 H, Creatinine 1.50 H, Estim Creat Clear Calc 42.32, Est GFR (MDRD) Af Amer 58 L, Est GFR (MDRD) Non-Af 48 L, BUN/Creatinine Ratio 27.3 H, Glucose 138 H, Calcium 8.3 L, Total Bilirubin 0.70, AST 62 H, ALT 30, Alkaline Phosphatase 94, Total Protein 5.5 L, Albumin 2.1 L, Globulin 3.4, Albumin/Globulin Ratio 0.6 L Micro: Microbiology 04/03/24 18:30 Sputum, Induced/Lukens Gram Stain - Final 04/03/24 18:30 Sputum, Induced/Lukens Respiratory Culture - Preliminary Klebsiella pneumoniae sp pneum 04/02/24 17:20 Blood Culture (Wb) - Right Wrist Blood Culture - Preliminary No growth in 48 hours. 04/02/24 Unknown Blood Culture (Wb) - Anticubital Left Blood Culture - Preliminary No growth in 48 hours. Rhythm Strip Rhythm Strip: Sinus Rhythm Rate: 67 Ectopy: None Assessment and Plan . Assessment and plan: Patient seen and examined Chart and data reviewed He is in no distress, but not really cooperative or even verbal - unchanged from yesterday Unclear baseline Breathing RA comfortably Vasopressors off UCX reveals GNR - narrowed ABX Doubt infectious PNA HGB and PLT falling stable Serum Na+ elevated, but improved w/ D5W PHYSICAL EXAM GEN NAD VS as above HEENT o/p clear NECK obese COR irreg CHEST CTA ABD soft, obese EXT no edema SKIN w/d TORITO NF ASSESSMENT 1. Acute respiratory failure - improved 2. Sepsis syndrome 3. UTI 4. Encephalopathy (chronic dementia) 5. Anemia/thrombocytopenia 6. Hypernatremia 7. AUGUSTIN 8. Chronic AF 9. 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
--- NOTE | 2024-04-05 20:34 | NURSING ---
Phone call received from patient's daughter and Kishore Reza, requesting update on patient. When discussing the reason the patient received a BANNERC transfusion was due to a drop in Hemoglobin, Libia mentioned that on 04/01/24 before admission, the patient had a very large, black, and tarry stool at [facility]. Prior MD appointment on 03/29, Libia states that the MD was concerned about a GI Bleed. Patient has not had a bowel movement during this admission, but will continue to monitor for Hemoccult stools.
[2024-04-06] VITALS (19 sets, daily range): BP systolic 117–160; BP diastolic 74–114; PULSE 55–81; RESP 16–24; TEMP 36.1–37.3; O2SAT 92–100; BMI 28.4
[2024-04-06] MEDS: Ipratropium/Albuterol Sulfate 3 ML AMPUL.NEB INHALATION ×4 (00:15→20:00)
[2024-04-06] MEDS: Dextrose 5%-Water (1000mL Bag) 1,000 ML 150 ML IV ×2 (00:43→07:45)
[2024-04-06] MEDS: 0.9% Saline Lock 10 ML Syringe IV ×2 (00:44→14:17)
[2024-04-06 06:11] LABS: Anion Gap 7 (5-15); BUN 25 mg/dL (7-18); BUN/Creat Ratio 21.4 RATIO (10-20); Calcium,Total 8.4 mg/dL (8.5-10.1); Chloride 120 mmol/L (98-107); Creatinine, Serum 1.17 mg/dL (0.70-1.30); EST Glomerular Filtration Rate 64 mL/min (>60); Est Glom Filt Rate - Afr Amer 77 mL/min (>60); Estimated Creatinine Clearance 54.25 ml/min; Glucose 109 mg/dL (74-106); Potassium 3.7 mmol/L (3.5-5.1); Sodium Level 146 mmol/L (136-145)
--- NOTE | 2024-04-06 07:31 | PN.HOSP_ITS ---
Reason for Visit Reason for Visit: Diagnoses Pneumonia, unspecified organism (04/02/24) Acute respiratory failure with hypercapnia (04/02/24) Respiratory failure, unspecified, unspecified whether with hypoxia or hypercapnia (04/02/24) Hypoxemia (04/02/24) Altered mental status, unspecified (04/02/24) Personal history of other diseases of the respiratory system (04/02/24) Objective Data Objective Data Vital Signs: Vital Signs Temp Pulse Resp BP Pulse Ox O2 Del Method O2 Flow Rate 98.8 F 69 24 H 120/77 96 Nasal Cannula 3 04/06/24 07:00 04/06/24 07:04 04/06/24 07:04 04/06/24 07:00 04/06/24 07:09 04/06/24 07:09 04/06/24 07:09 FiO2 21 04/05/24 07:00 Oxygen Flow Rate (L/min) 3 Oxygen Delivery Method Nasal Cannula Weight: 187 lb 13.341 oz Body Mass Index (BMI) 28.4 Intake & Output: Intake and Output for Last 24 Hours 04/04/24 04/05/24 04/06/24 23:59 23:59 23:59 Intake Total 1461.9 / 1461.9 3743.5 / 3743.5 857.5 / 857.5 Output Total 1065 / 1315 2075 / 2150 1025 / 1025 Balance 396.9 / 146.9 1668.5 / 1593.5 -167.5 / -167.5 Medical Nutrition Assessment Dietitian: Malnutrition Criteria Met Start: 04/04/24 09:22 Freq: Status: Active Protocol: Document 04/04/24 09:22 SUSHMA (Rec: 04/04/24 09:22 [facility] [id number]) Nutrition Malnutrition Evidence of Malnutrition Exists Yes Malnutrition (severe): Acute Illness/Injury Evidenced By Suboptimal Energy Intake ( Severe),Weight Loss (Severe) Clinical Problem Acute Disease or Injury Related Malnutrition Etiology related to reported inadequate energy intake Signs/Symptoms as evidenced by pt meeting <50 % of est nutritional needs and 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 Recommend 120mL ensure plus high protein 4x daily to provide supplemental energy if consumed Lab / Micro Data 04/06/24 08:50 04/06/24 05:35 Labs: Laboratory Results - last 24 hr 04/06/24 05:35: Sodium 146 H, Potassium 3.7, Chloride 120 H, Carbon Dioxide 19.0 L, Anion Gap 7, BUN 25 H, Creatinine 1.17, Estim Creat Clear Calc 54.25, Est GFR (MDRD) Af Amer 77, Est GFR (MDRD) Non-Af 64, BUN/Creatinine Ratio 21.4 H, G lucose 109 H, Calcium 8.4 L Micro: Microbiology 04/03/24 18:30 Sputum, Induced/Lukens Gram Stain - Final 04/03/24 18:30 Sputum, Induced/Lukens Respiratory Culture - Preliminary Klebsiella pneumoniae sp pneum 04/02/24 17:20 Blood Culture (Wb) - Right Wrist Blood Culture - Preliminary No growth in 48 hours. 04/02/24 Unknown Blood Culture (Wb) - Anticubital Left Blood Culture - Preliminary No growth in 48 hours. 04/02/24 12:25 Urine, Catheterized Urine Culture - Final Presumptive E. coli 04/02/24 21:28 Mucosa - Nasopharyngeal Respiratory Panel (PCR) - Final 04/02/24 21:28 Mucosa - Nasopharyngeal SARS-CoV-2, Influenza & RSV (PCR) - Final 04/02/24 12:25 Urine Catheter - Pham Legionella Antigen - Final 04/02/24 12:25 Urine Catheter - Pham Streptococcus pneumoniae Antigen (M - Final Rhythm Strip Rhythm Strip: Sinus Rhythm Rate: 67 Ectopy: None Physical Exam Narrative Seen and examined. Patient is still confused,, incomprehensible words. But eyes are spontaneously open. Responding to touch On oxygen through nasal cannula. Physical exam General: Awake, cannot ascertain orientation but looks better than yesterday HEENT: Atraumatic, PERRLA, EOMI, Normocephalic Oral: No Gingival or Mucosal Lesions/ Ulcerations Neck: Supple, No JVD, Negative Carotid Bruits Chest wall/Lungs: Air entry diminished in bilateral lung bases. No crepitation/rhonchi Cardiovascular: Regular rate, Regular Rhythm, Normal S1, Normal S2, No M/G/R Abdomen: Bowel Sounds Present, Soft, Non Tender, Non-Distended : No dysuria. No renal angle tenderness. No suprapubic tenderness. Extremities: Generalized swelling of all 4 extremities. Capillary Refill Less than 3 Seconds Skin: Bruise present on the right forearm at previous IV line. No induration, tenderness or physical signs of thrombophlebitis Musculoskeletal: No Tenderness to Palpation of Joints or Extremities. ROM restricted. Neurological: Cranial nerves II-XII grossly intact, DTR 2+/4. Does not follow command. GCS 11, E4 V3 M4 Psych/Mental Status: Flat affect. Assessment & Plan Assessment/Plan (1) History of COPD: (2) Acute alteration in mental status: PLAN: Plan 78-year-old man with past medical history of coronary artery disease s/p PCI, atrial fibrillation, dyslipidemia, hypertension, COPD [not on home oxygen], orthostatic hypotension was brought to the ED with concerns regarding worsening acute on chronic respiratory failure and was found to have features of right upper lobe pneumonia and urinary tract infection. There was associated hypotension, suspected prerenal AUGUSTIN on CKD, concerns for sepsis with shock. For this he has been admitted to the ICU, he is DNR CCA, no intubation, family refused central line placement but is okay with peripheral Levophed. #Sepsis with septic shock -Continue Zosyn and vancomycin -Improvement in oxygenation, acidosis, lactate levels after receiving sepsis fluids -He is off Levophed now -Appreciate input by pulmonary medicine Dr. Estevez 04/05: Patient maintaining blood pressure. On IV antibiotic ceftriaxone. Blood cultures x 2 no growth for 48 hours. Mucinex 04/06: Patient off Levophed since 04/04 midnight. Septic shock resolved. As per housetrailer servicer, patient is stable and transferred to PCU. 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 coli/Klebsiella pneumonia -Has a history of COPD -Maintaining saturation well on nasal cannula 04/05 on oxygen through nasal cannula. 04/06: Seated medial cannula. Complete 7 days of IV antibiotic. #AMS/encephalopathy, exact etiology unclear #Dementia -Suspect secondary to hypoxia and infection -Treat underlying etiologies -Discussed with patient's family, levetiracetam was started for concerns regarding seizures, they are unsure if he has a history of seizures but would like to take the medication off. Keppra has been discontinued. -TSH and ammonia are in normal range 04/05-If there is no improvement despite improvement in shock will consider MRI brain to rule out hypoxic ischemic encephalopathy 04/06: GCS 11. Overall mental status looks better, eyes spontaneously open with incomprehensible words. #Dementia -Hold home memantine for now # Prerenal AUGUSTIN -Continue fluid therapy as above -Continue to monitor creatinine 04/05: Creatinine 1.5. BUN 41. #CAD s/p stenting in 2020 -Cont asa and statin # Hypertension -Patient presently hypotensive, continue IVF and hold home antihypertensives #GERD -Continue PPI #Hx afib per previous documentation -Hold home meds 2/2 hypotension -Does not seem to be on any anticoagulation #DVT ppx: Heparin subcu Total time of the visit including total time spent in counseling or coordination of care, (more than 50% of the total time, spent in obtaining medical information from nurses and other ancillary care providers,explaining to the patient about labs, imaging, diagnosis and management of active complex medical conditions), discussion with nursing staff, clinical update given to patient's daughter and grandson, review of labs and imaging is 40 minutes. Microbiology Past 72 Hours 04/03/24 18:30 Sputum, Induced/Lukens Gram Stain - Final 04/03/24 18:30 Sputum, Induced/Lukens Respiratory Culture - Preliminary Klebsiella pneumoniae sp pneum 04/02/24 17:20 Blood Culture (Wb) - Right Wrist Blood Culture - Preliminary No growth in 48 hours. 04/02/24 Unknown Blood Culture (Wb) - Anticubital Left Blood Culture - Preliminary No growth in 48 hours. 04/02/24 12:25 Urine, Catheterized Urine Culture - Final Presumptive E. coli 04/02/24 21:28 Mucosa - Nasopharyngeal Respiratory Panel (PCR) - Final 04/02/24 21:28 Mucosa - Nasopharyngeal SARS-CoV-2, Influenza & RSV (PCR) - Final 04/02/24 12:25 Urine Catheter - Pham Legionella Antigen - Final 04/02/24 12:25 Urine Catheter - Pham Streptococcus pneumoniae Antigen (M - Final Laboratory Results 04/04/24 12:45: Sodium 157 H, Potassium 3.1 L, Chloride 132 H*, Carbon Dioxide 17.0 L, Anion Gap 8, BUN 43 H, Creatinine 1.43 H, Estim Creat Clear Calc 43.96, Est GFR (MDRD) Af Amer 61, Est GFR (MDRD) Non-Af 51 L, BUN/Creatinine Ratio 30.1 H, Glucose 65 L, Calcium 7.5 L, Total Bilirubin 0.50, Direct Bilirubin 0.24, AST 37, ALT 21, Alkaline Phosphatase 77, Total Protein 4.7 L, Albumin 1.9 L, Globulin 2.8 04/04/24 21:02: Blood Type AB NEGATIVE, Antibody Screen NEGATIVE, Crossmatch See Detail 04/05/24 03:15: WBC 13.8 H, RBC 2.75 L, Hgb 8.4 L, Hct 25.9 L, MCV 94.2 H, MCH 30.5, MCHC 32.4, RDW Std Deviation 62.3 H, RDW Coeff of Sophie 18.6 H, Plt Count 60 L, MPV 12.9 H, Immature Gran % (Auto) 0.600, Neut % (Auto) 86.0 H, Lymph % (Auto) 9.2 L, [place] % (Auto) 3.1, Eos % (Auto) 0.9, Baso % (Auto) 0.2, Absolute Neuts (auto) 11.8 H, Absolute Lymphs (auto) 1.27, Nucleated RBC % 0, Differential Comment SCANNED, Sodium Cancelled, Potassium Cancelled, Chloride Cancelled, Carbon Dioxide Cancelled, Anion Gap Cancelled, BUN Cancelled, Creatinine Cancelled, Estim Creat Clear Calc Cancelled, Est GFR (MDRD) Af Amer Cancelled, Est GFR (MDRD) Non-Af Cancelled, BUN/Creatinine Ratio Cancelled, Glucose Cancelled, Calcium Cancelled, Total Bilirubin Cancelled, AST Cancelled, ALT Cancelled, Alkaline Phosphatase Cancelled, Total Protein Cancelled, Albumin Cancelled, Globulin Cancelled, Albumin/Globulin Ratio Cancelled 04/05/24 04:10: Sodium 148 H, Potassium 4.2, Chloride 123 H, Carbon Dioxide 19.0 L, Anion Gap 6, BUN 41 H, Creatinine 1.50 H, Estim Creat Clear Calc 42.32, Est GFR (MDRD) Af Amer 58 L, Est GFR (MDRD) Non-Af 48 L, BUN/Creatinine Ratio 27.3 H , Glucose 138 H, Calcium 8.3 L, Total Bilirubin 0.70, AST 62 H, ALT 30, Alkaline Phosphatase 94, Total Protein 5.5 L, Albumin 2.1 L, Globulin 3.4, A lbumin/Globulin Ratio 0.6 L Charges/Coding Visit Charges Inpatient E&M: 47253 Subs Hosp L3
[2024-04-06 09:00] LABS: Absolute Lymphocyte Count 1.14 X10^3/uL (0.83-4.51); Absolute Neutrophil Count 9.8 X10^3/uL (2.0-7.7); Basophil# 0.02 X10^3/uL; Basophil% 0.2 % (0-1); Eosinophil# 0.14 X10^3/uL; Eosinophils% 1.2 % (0-5); Hematocrit 27.3 % (40-54); Hemoglobin 8.7 g/dL (13.0-16.5); Lymphocyte # 1.14 X10^3/ul (0.83-4.51); Lymphocyte % 9.8 % (19-41); Mean Corp Hgb Conc 31.9 g/dL (32-36); Mean Corpuscular Hgb 30.5 pg (27.0-32.0); Mean Corpuscular Volume 95.8 fL (80-94); Monocyte# 0.47 X10^3/uL; NRBC Flagged by Analyzer 0 % (0-5); Neutrophil # 9.79 X10^3/uL (2.7-7.7); Neutrophil % 84.4 % (47-70); POSITIVE COUNT YES; Platelet Count 87 K/mm3 (150-450); RBC Distribution Width CV 17.9 % (11.6-14.6); RBC Distribution Width SD 63.3 fl (35.1-43.9); Red Blood Count 2.85 M/mm3 (4.6-6.2); White Blood Count 11.6 K/mm3 (4.4-11.0)
[2024-04-06] MEDS: Pantoprazole Sodium 40 MG in 0.9% Normal Saline (100mL MB+) 100 ML 330 MG IV (10:34)
[2024-04-06] MEDS: Ceftriaxone 1 GM/50 ML BAG IV (11:11)
[2024-04-06] MEDS: Acetylcysteine 800 MG/4 ML VIAL.NEB. INHALATION (13:06)
--- NOTE | 2024-04-06 13:50 | PN.CC_ITS ---
Objective Data Objective Data Vital Signs: Vital Signs Last response 3 Temperature 36.9 C 04/06/24 12:00 Temperature Source Temporal 04/06/24 12:00 Pulse Rate 78 04/06/24 13:12 Pulse Strength Normal (2+) 04/06/24 10:00 Respiratory Rate 24 H 04/06/24 13:12 Respiratory Effort Normal, Non-Labored 04/06/24 13:37 Respiratory Depth Normal 04/06/24 13:37 Respiratory Pattern Tachypnea 04/06/24 13:37 Blood Pressure 136/80 H 04/06/24 12:00 Blood Pressure Mean 98 04/06/24 12:00 Blood Pressure Source Monitor 04/06/24 12:00 Blood Pressure Position Semi-Fowlers 04/06/24 12:00 Blood Pressure Location Left Arm 04/06/24 12:00 Pulse Ox 95 04/06/24 13:12 Oxygen Delivery Method Room Air 04/06/24 13:37 Oxygen Flow Rate (L/min) 3 04/06/24 07:09 Fraction of Inspired Oxygen (FIO2) 21 04/05/24 07:00 I&O: I&O Last 24 Hours 3 04/05/24 04/06/24 04/06/24 23:59 11:59 23:59 Intake Total 1050.0 / 3743.5 2172.5 / 2172.5 Output Total 1575 / 2150 1475 / 1475 Balance -525.0 / 1593.5 697.5 / 697.5 I&O: Total Stay 3 04/02/24 16:51 thru 04/06/24 11:58 Intake Total 10589.34 Output Total 5590 Balance 7609.34 Current Meds Ordered / Administered: Current meds ordered / Administered 3 Generic Name Dose Route Start Last Admin Trade Name Freq PRN Reason Stop Dose Admin Acetaminophen 650 mg 04/02/24 20:45 Acetaminophen 325 Mg Tablet PO Q6H PRN PRN Pain 1-10 Or Fever >100.7 Acetylcysteine 800 mg 04/06/24 08:00 04/06/24 13:06 Acetylcysteine 800 Mg/4 Ml Vial.Neb. INHALATION 800 mg Q6H.RT LESLY Administration Albuterol Sulfate 2.5 mg 04/02/24 20:45 04/05/24 02:36 Albuterol 2.5 Mg/3 Ml Vial.Neb. INHALATION 2.5 mg Q2H PRN PRN Administration SOB &/OR WHEEZING Albuterol/Ipratropium 3 ml 04/03/24 00:00 04/06/24 13:06 Ipratropium/Albuterol Sulfate 3 Ml Ampul.Neb INHALATION 3 ml Q6H.RT LESLY Administration Bisacodyl 10 mg 04/03/24 00:15 Bisacodyl 10 Mg Suppository RC DAILY PRN constipation Glucagon 1 mg 04/03/24 00:15 Glucagon 1 Mg/Ml Syringe SC PRN PRN hypoglycemia Glycopyrrolate 0.1 mg 04/06/24 13:38 Glycopyrrolate 0.2 Mg/Ml Vial IV Q4H PRN Congestion/INCREASED SECRETION Guaifenesin 1,200 mg 04/02/24 22:00 04/06/24 07:46 Guaifenesin 1,200 Mg Tablet PO Not Given BID LESLY Sodium Chloride 250 mls @ 15 mls/hr 04/02/24 20:48 IV .[id number] PRN Additional IVPB Infusion Sodium Chloride 250 mls @ 15 mls/hr 04/02/24 20:48 IV .[id number] PRN Saline Flush Pantoprazole Sodium 40 mg/ 110 mls @ 330 mls/hr 04/03/24 10:00 04/06/24 10:54 Sodium Chloride IV Infused Q24 LESLY Infusion Ceftriaxone Sodium 1 gm in 50 mls @ 100 mls/hr 04/05/24 10:00 04/06/24 11:58 Rocephin IV Infused Q24 LESLY Infusion Dextrose 1,000 mls @ 60 mls/hr 04/06/24 08:05 04/06/24 08:47 IV Not Given .[id number] LESLY Melatonin 3 mg 04/02/24 20:45 Melatonin 3 Mg Tablet PO QHS PRN PRN INSOMNIA Ondansetron HCl 4 mg 04/02/24 20:45 Ondansetron 4 Mg/2 Ml Vial IV Q8H PRN PRN NAUSEA/VOMITING Senna/Docusate Sodium 2 tablet 04/06/24 10:00 04/06/24 10:35 Senna/Docusate Sodium 1 Tablet PO Not Given BID LESLY Sodium Chloride 10 - 40 ml 04/02/24 20:48 07/07/24 00:44 0.9% Saline Lock 10 Ml Syringe IV 30 ml UD PRN Administration SALINE FLUSH Medical Records Data Medical Nutrition Assessment Dietitian: Malnutrition Criteria Met Start: 04/04/24 09:22 Freq: Status: Active Protocol: Document 04/04/24 09:22 [facility] (Rec: 04/04/24 09:22 [facility] [id number]) Nutrition Malnutrition Evidence of Malnutrition Exists Yes Malnutrition (severe): Acute Illness/Injury Evidenced By Suboptimal Energy Intake ( Severe),Weight Loss (Severe) Clinical Problem Acute Disease or Injury Related Malnutrition Etiology related to reported inadequate energy intake Signs/Symptoms as evidenced by pt meeting <50 % of est nutritional needs and 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 Recommend 120mL ensure plus high protein 4x daily to provide supplemental energy if consumed Lab / Micro Data 04/06/24 08:50 04/06/24 05:35 Labs: Laboratory Results - last 24 hr 04/06/24 05:35: Sodium 146 H, Potassium 3.7, Chloride 120 H, Carbon Dioxide 19.0 L, Anion Gap 7, BUN 25 H, Creatinine 1.17, Estim Creat Clear Calc 54.25, Est GFR (MDRD) Af Amer 77, Est GFR (MDRD) Non-Af 64, BUN/Creatinine Ratio 21.4 H, G lucose 109 H, Calcium 8.4 L 04/06/24 08:50: WBC 11.6 H, RBC 2.85 L, Hgb 8.7 L, Hct 27.3 L, MCV 95.8 H, MCH 30.5, MCHC 31.9 L, RDW Std Deviation 63.3 H, RDW Coeff of Sophie 17.9 H, Plt Count 87 L, MPV 11.0, Immature Gran % (Auto) 0.400, Neut % (Auto) 84.4 H, Lymph % (Auto) 9.8 L, [place] % (Auto) 4.0, Eos % (Auto) 1.2, Baso % (Auto) 0.2, Absolute Neuts (auto) 9.8 H, Absolute Lymphs (auto) 1.14, Nucleated RBC % 0 Micro: Microbiology 04/03/24 18:30 Sputum, Induced/Lukens Gram Stain - Final 04/03/24 18:30 Sputum, Induced/Lukens Respiratory Culture - Final Klebsiella pneumoniae sp pneum Rhythm Strip Rhythm Strip: Sinus Rhythm Rate: 67 Ectopy: None Assessment and Plan . 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 Acute respiratory failure - improved 2. Sepsis syndrome - improved 3. UTI 4. Encephalopathy (chronic dementia) 5. Anemia/thrombocytopenia 6. Hypernatremia - improved 7. AUGUSTIN - improved 8. Chronic AF 9. DNR/DNI TREATMENT PLAN -O2 as needed -follow FIELD MECHANIC clinically -free water -continue ABX -follow HGB, PLT -we are available as needed The entirety of this encounter was done via Telemedicine
[2024-04-06] MEDS: Glycopyrrolate 0.2 MG/ML Vial 0.1 MG IV (14:17)
[2024-04-06] MEDS: guaiFENesin 1,200 MG Tablet 1200 MG PO (20:47)
[2024-04-06] MEDS: Dextrose 5%-Water (1000mL Bag) 1,000 ML 60 ML IV (21:04)
[2024-04-07] VITALS (9 sets, daily range): BP systolic 109–165; BP diastolic 80–107; PULSE 62–79; RESP 12–30; TEMP 35.8–36.8; O2SAT 91–99; BMI 28.1
[2024-04-07] MEDS: Ipratropium/Albuterol Sulfate 3 ML AMPUL.NEB INHALATION ×4 (02:00→18:54)
[2024-04-07 05:39] LABS: Absolute Lymphocyte Count 0.95 X10^3/uL (0.83-4.51); Basophil# 0.02 X10^3/uL; Basophil% 0.3 % (0-1); Eosinophils% 2.6 % (0-5); Hematocrit 28.2 % (40-54); Hemoglobin 9.1 g/dL (13.0-16.5); Lymphocyte # 0.95 X10^3/ul (0.83-4.51); Lymphocyte % 12.3 % (19-41); Mean Corp Hgb Conc 32.3 g/dL (32-36); Mean Corpuscular Hgb 30.4 pg (27.0-32.0); Mean Corpuscular Volume 94.3 fL (80-94); Mean Platelet Vol. 11.3 fl (6.2-12.0); Monocyte# 0.49 X10^3/uL; Monocyte% 6.3 % (0-10); NRBC Flagged by Analyzer 0 % (0-5); Neutrophil # 6.02 X10^3/uL (2.7-7.7); Neutrophil % 77.9 % (47-70); Platelet Count 106 K/mm3 (150-450); RBC Distribution Width SD 58.4 fl (35.1-43.9); Red Blood Count 2.99 M/mm3 (4.6-6.2); White Blood Count 7.7 K/mm3 (4.4-11.0)
[2024-04-07 06:10] LABS: Anion Gap 7 (5-15); BUN 18 mg/dL (7-18); BUN/Creat Ratio 19.1 RATIO (10-20); Calcium,Total 8.7 mg/dL (8.5-10.1); Chloride 117 mmol/L (98-107); Creatinine, Serum 0.94 mg/dL (0.70-1.30); EST Glomerular Filtration Rate 82 mL/min (>60); Est Glom Filt Rate - Afr Amer 99 mL/min (>60); Estimated Creatinine Clearance 67.38 ml/min; Glucose 86 mg/dL (74-106); Potassium 3.5 mmol/L (3.5-5.1); Sodium Level 145 mmol/L (136-145)
--- NOTE | 2024-04-07 08:15 | PN.HOSP_ITS ---
Reason for Visit Reason for Visit: Diagnoses Pneumonia, unspecified organism (04/02/24) Acute respiratory failure with hypercapnia (04/02/24) Respiratory failure, unspecified, unspecified whether with hypoxia or hypercapnia (04/02/24) Hypoxemia (04/02/24) Altered mental status, unspecified (04/02/24) Personal history of other diseases of the respiratory system (04/02/24) Subjective Subjective Awake but does not answer questions. Objective Data Objective Data Vital Signs: Vital Signs Temp Pulse Resp BP Pulse Ox O2 Del Method O2 Flow Rate 36.8 C 71 16 143/81 H 97 Room Air 3 04/07/24 03:42 04/07/24 03:42 04/07/24 03:42 04/07/24 03:42 04/07/24 03:42 04/07/24 04:00 04/06/24 07:09 FiO2 21 04/05/24 07:00 Oxygen Flow Rate (L/min) 3 Oxygen Delivery Method Room Air Weight: 84.3 kg Body Mass Index (BMI) 28.1 Intake & Output: Intake and Output for Last 24 Hours 04/05/24 04/06/24 04/07/24 23:59 23:59 23:59 Intake Total 3743.5 / 3743.5 2939.5 / 2939.5 Output Total 2075 / 2150 2125 / 2675 800 / 800 Balance 1668.5 / 1593.5 814.5 / 264.5 -800 / -800 Medical Nutrition Assessment Dietitian: Malnutrition Criteria Met Start: 04/04/24 09:22 Freq: Status: Active Protocol: Document 04/04/24 09:22 SUSHMA (Rec: 04/04/24 09:22 [facility] [id number]) Nutrition Malnutrition Evidence of Malnutrition Exists Yes Malnutrition (severe): Acute Illness/Injury Evidenced By Suboptimal Energy Intake ( Severe),Weight Loss (Severe) Clinical Problem Acute Disease or Injury Related Malnutrition Etiology related to reported inadequate energy intake Signs/Symptoms as evidenced by pt meeting <50 % of est nutritional needs and 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 Recommend 120mL ensure plus high protein 4x daily to provide supplemental energy if consumed Lab / Micro Data 04/07/24 04:45 04/07/24 04:45 Labs: Laboratory Results - last 24 hr 04/06/24 08:50: WBC 11.6 H, RBC 2.85 L, Hgb 8.7 L, Hct 27.3 L, MCV 95.8 H, MCH 30.5, MCHC 31.9 L, RDW Std Deviation 63.3 H, RDW Coeff of Sophie 17.9 H, Plt Count 87 L, MPV 11.0, Immature Gran % (Auto) 0.400, Neut % (Auto) 84.4 H, Lymph % (Auto) 9.8 L, [place] % (Auto) 4.0, Eos % (Auto) 1.2, Baso % (Auto) 0.2, Absolute Neuts (auto) 9.8 H, Absolute Lymphs (auto) 1.14, Nucleated RBC % 0 04/07/24 04:45: WBC 7.7, RBC 2.99 L, Hgb 9.1 L, Hct 28.2 L, MCV 94.3 H, MCH 30.4, MCHC 32.3, RDW Std Deviation 58.4 H, RDW Coeff of Sophie 17.0 H, Plt Count 106 L, MPV 11.3, Immature Gran % (Auto) 0.600, Neut % (Auto) 77.9 H, Lymph % (Auto) 12.3 L, [place] % (Auto) 6.3, Eos % (Auto) 2.6, Baso % (Auto) 0.3, Absolute Neuts (auto) 6.0, Absolute Lymphs (auto) 0.95, Nucleated RBC % 0, Sodium 145, Potassium 3.5, Chloride 117 H, Carbon Dioxide 21.0, Anion Gap 7, BUN 18, Creatinine 0.94, Estim Creat Clear Calc 67.38, Est GFR (MDRD) Af Amer 99, Est GFR (MDRD) Non-Af 82, BUN/Creatinine Ratio 19.1, Glucose 86, Calcium 8.7 Micro: Microbiology 04/03/24 18:30 Sputum, Induced/Lukens Gram Stain - Final 04/03/24 18:30 Sputum, Induced/Lukens Respiratory Culture - Final Klebsiella pneumoniae sp pneum 04/02/24 17:20 Blood Culture (Wb) - Right Wrist Blood Culture - Preliminary No growth in 48 hours. 04/02/24 Unknown Blood Culture (Wb) - Anticubital Left Blood Culture - Preliminary No growth in 48 hours. 04/02/24 12:25 Urine, Catheterized Urine Culture - Final Presumptive E. coli 04/02/24 21:28 Mucosa - Nasopharyngeal Respiratory Panel (PCR) - Final 04/02/24 21:28 Mucosa - Nasopharyngeal SARS-CoV-2, Influenza & RSV (PCR) - Final 04/02/24 12:25 Urine Catheter - Pham Legionella Antigen - Final 04/02/24 12:25 Urine Catheter - Pham Streptococcus pneumoniae Antigen (M - Final Rhythm Strip Rhythm Strip: Sinus Rhythm Rate: 67 Ectopy: None Physical Exam Const Constitutional Narrative: awake. confused. afebrile. Resp Resp Narrative: coarse BS bilaterally. Cardio regular rate, regular rhythm, S1 normal heart sound and S2 normal heart sound GI normal to inspection, nondistended, normoactive bowel sounds, soft to palpation, non-tender and non-distended Neuro Sensorium / Orientation: awake and alert Assessment & Plan Assessment/Plan (1) History of COPD: (2) Acute alteration in mental status: PLAN: Plan Septic shock * POA. Now resolved * 2/2 pneumonia * had been on norepinephrine, started 04/02 discontinued 04/03 Klebsiella pneumonia * On ceftriaxone * RLL on CXR from 04/02 Acute hypercapnic respiratory failure * resolved. ABG showed respiratory acidosis * 2/2 pneumonia * had been on BiPAP, now on room air. Metabolic encephalopathy * 2/2 pneumonia, septic shock in pt with known dementia. AUGUSTIN * resolved Chronic conditions: * Dementia. Hold home memantine for now * CAD s/p stenting in 2020-Cont asa and statin * Hypertension-Patient presently hypotensive, continue IVF and hold home antihypertensives * GERD Continue PPI * Hx afib per previous documentation Hold home meds 2/2 hypotension Does not seem to be on any anticoagulation #DVT ppx: Heparin subcu Discharge planning, if remains stable, should be ready to discharge on 04/08 Charges/Coding Visit Charges Inpatient E&M: 68716 Subs Hosp L2
[2024-04-07] MEDS: Ceftriaxone 1 GM/50 ML BAG IV (09:37)
--- NOTE | 2024-04-07 09:47 | CASEMGMT ---
DEVANTE called patient's daughter Urban. Urban asked if she could call DEVANTE back. Await return call. Jo Ann COTTON
[2024-04-07] MEDS: Pantoprazole Sodium 40 MG in 0.9% Normal Saline (100mL MB+) 100 ML 330 MG IV (09:52)
[2024-04-07] MEDS: Dextrose 5%-Water (1000mL Bag) 1,000 ML 60 ML IV (13:19)
[2024-04-08] VITALS (10 sets, daily range): BP systolic 102–140; BP diastolic 63–117; PULSE 71–86; RESP 12–27; TEMP 36.6–37.2; O2SAT 92–95; BMI 30.5
[2024-04-08] MEDS: Ipratropium/Albuterol Sulfate 3 ML AMPUL.NEB INHALATION ×4 (01:47→19:22)
[2024-04-08 06:03] LABS: Absolute Lymphocyte Count 0.93 X10^3/uL (0.83-4.51); Absolute Neutrophil Count 4.2 X10^3/uL (2.0-7.7); Basophil# 0.02 X10^3/uL; Basophil% 0.3 % (0-1); Eosinophil# 0.13 X10^3/uL; Eosinophils% 2.2 % (0-5); Hemoglobin 9.2 g/dL (13.0-16.5); Lymphocyte # 0.93 X10^3/ul (0.83-4.51); Lymphocyte % 15.4 % (19-41); Mean Corp Hgb Conc 32.9 g/dL (32-36); Mean Corpuscular Hgb 30.6 pg (27.0-32.0); Mean Platelet Vol. 10.4 fl (6.2-12.0); Monocyte# 0.68 X10^3/uL; Monocyte% 11.3 % (0-10); NRBC Flagged by Analyzer 0 % (0-5); Neutrophil # 4.22 X10^3/uL (2.7-7.7); Platelet Count 122 K/mm3 (150-450); RBC Distribution Width CV 16.6 % (11.6-14.6); RBC Distribution Width SD 55.8 fl (35.1-43.9); Red Blood Count 3.01 M/mm3 (4.6-6.2)
[2024-04-08] MEDS: Dextrose 5%-Water (1000mL Bag) 1,000 ML 60 ML IV ×2 (06:12→23:11)
[2024-04-08 06:19] LABS: Anion Gap 7 (5-15); BUN 15 mg/dL (7-18); BUN/Creat Ratio 17.6 RATIO (10-20); Calcium,Total 8.6 mg/dL (8.5-10.1); Chloride 116 mmol/L (98-107); Creatinine, Serum 0.85 mg/dL (0.70-1.30); EST Glomerular Filtration Rate 92 mL/min (>60); Est Glom Filt Rate - Afr Amer 111 mL/min (>60); Estimated Creatinine Clearance 77.27 ml/min; Glucose 96 mg/dL (74-106); Potassium 3.4 mmol/L (3.5-5.1); Sodium Level 143 mmol/L (136-145)
--- NOTE | 2024-04-08 07:28 | PCM.PN.HOSP ---
Reason for Visit Reason for Visit: Diagnoses Pneumonia, unspecified organism (04/02/24) Acute respiratory failure with hypercapnia (04/02/24) Respiratory failure, unspecified, unspecified whether with hypoxia or hypercapnia (04/02/24) Hypoxemia (04/02/24) Altered mental status, unspecified (04/02/24) Personal history of other diseases of the respiratory system (04/02/24) Subjective Subjective Awake. Cannot articulate. Objective Data Objective Data Vital Signs: Vital Signs Temp Pulse Resp BP Pulse Ox O2 Del Method O2 Flow Rate 36.6 C 73 18 102/65 94 Room Air 3 04/08/24 03:31 04/08/24 03:31 04/08/24 03:31 04/08/24 03:31 04/08/24 05:05 04/08/24 05:05 04/06/24 07:09 FiO2 21 04/08/24 01:47 Oxygen Flow Rate (L/min) 3 Oxygen Delivery Method Room Air Weight: 91.2 kg Body Mass Index (BMI) 30.5 Intake & Output: Intake and Output for Last 24 Hours 04/06/24 04/07/24 04/08/24 23:59 23:59 23:59 Intake Total 2939.5 / 2939.5 1115 / 1115 1000 / 1000 Output Total 2125 / 2675 1750 / 1750 150 / 150 Balance 814.5 / 264.5 -635 / -635 850 / 850 Medical Nutrition Assessment Dietitian: Malnutrition Criteria Met Start: 04/04/24 09:22 Freq: Status: Active Protocol: Document 04/04/24 09:22 SUSHMA (Rec: 04/04/24 09:22 SUSHMA [id number]) Nutrition Malnutrition Evidence of Malnutrition Exists Yes Malnutrition (severe): Acute Illness/Injury Evidenced By Suboptimal Energy Intake ( Severe),Weight Loss (Severe) Clinical Problem Acute Disease or Injury Related Malnutrition Etiology related to reported inadequate energy intake Signs/Symptoms as evidenced by pt meeting <50 % of est nutritional needs and 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 Recommend 120mL ensure plus high protein 4x daily to provide supplemental energy if consumed Lab / Micro Data 04/08/24 05:33 04/08/24 05:33 Labs: Laboratory Results - last 24 hr 04/08/24 05:33: WBC 6.0, RBC 3.01 L, Hgb 9.2 L, Hct 28.0 L, MCV 93.0, MCH 30.6, MCHC 32.9, RDW Std Deviation 55.8 H, RDW Coeff of Sophie 16.6 H, Plt Count 122 L, MPV 10.4, Immature Gran % (Auto) 0.800, Neut % (Auto) 70.0, Lymph % (Auto) 15.4 L, [place] % (Auto) 11.3 H, Eos % (Auto) 2.2, Baso % (Auto) 0.3, Absolute Neuts (auto) 4.2, Absolute Lymphs (auto) 0.93, Nucleated RBC % 0, Sodium 143, Potassium 3.4 L, Chloride 116 H, Carbon Dioxide 20.0 L, Anion Gap 7, BUN 15, Creatinine 0.85, Estim Creat Clear Calc 77.27, Est GFR (MDRD) Af Amer 111, Est GFR (MDRD) Non-Af 92, BUN/Creatinine Ratio 17.6, Glucose 96, Calcium 8.6 Micro: Microbiology 04/02/24 17:20 Blood Culture (Wb) - Right Wrist Blood Culture - Final No growth in 5 days. 04/02/24 Unknown Blood Culture (Wb) - Anticubital Left Blood Culture - Final No growth in 5 days. 04/03/24 18:30 Sputum, Induced/Lukens Gram Stain - Final 04/03/24 18:30 Sputum, Induced/Lukens Respiratory Culture - Final Klebsiella pneumoniae sp pneum 04/02/24 12:25 Urine, Catheterized Urine Culture - Final Presumptive E. coli 04/02/24 21:28 Mucosa - Nasopharyngeal Respiratory Panel (PCR) - Final 04/02/24 21:28 Mucosa - Nasopharyngeal SARS-CoV-2, Influenza & RSV (PCR) - Final 04/02/24 12:25 Urine Catheter - Pham Legionella Antigen - Final 04/02/24 12:25 Urine Catheter - Pham Streptococcus pneumoniae Antigen (M - Final Rhythm Strip Rhythm Strip: Sinus Rhythm Rate: 67 Ectopy: None Physical Exam Narrative awake. does not specificly articulate. Const no apparent distress HEENT head/scalp atraumatic Resp normal respiratory effort, no retractions, no use of accessory muscles and clear to auscultation bilaterally Cardio regular rate, regular rhythm, S1 normal heart sound and S2 normal heart sound GI normal to inspection, nondistended, normoactive bowel sounds and soft to palpation Neuro Sensorium / Orientation: awake and alert Assessment & Plan Assessment/Plan (1) History of COPD: (2) Acute alteration in mental status: PLAN: Plan Septic shock POA. Now resolved 2/2 pneumonia had been on norepinephrine, started 04/02 discontinued 04/03 Klebsiella pneumonia On ceftriaxone. Started on pip/tazo on 04/03. Abx through 04/09. Can change to oral. RLL on CXR from 04/02 Acute hypercapnic respiratory failure resolved. ABG showed respiratory acidosis 2/2 pneumonia had been on BiPAP, now on room air. Metabolic encephalopathy 2/2 pneumonia, septic shock in pt with known dementia. AUGUSTIN resolved Chronic conditions: Dementia. Hold home memantine for now CAD s/p stenting in 2020-Cont asa and statin Hypertension-Patient presently hypotensive, continue IVF and hold home antihypertensives GERD Continue PPI Hx afib per previous documentation Hold home meds 2/2 hypotension Does not seem to be on any anticoagulation #DVT ppx: Heparin subcu Discharge planning: improving. CM working on where patient may return. Charges/Coding Visit Charges Inpatient E&M: 46015 Subs Hosp L2
[2024-04-08] MEDS: Ceftriaxone 1 GM/50 ML BAG IV (09:08)
[2024-04-08] MEDS: Pantoprazole Sodium 40 MG in 0.9% Normal Saline (100mL MB+) 100 ML 330 MG IV (09:08)
[2024-04-08] MEDS: Senna/Docusate Sodium 1 Tablet 2 TABLET PO (09:10)
[2024-04-08] MEDS: guaiFENesin 1,200 MG Tablet 1200 MG PO (09:11)
[2024-04-08] MEDS: 0.9% Saline Lock 10 ML Syringe IV ×3 (09:14→23:10)
--- NOTE | 2024-04-08 09:43 | CASEMGMT ---
DEVANTE called patient's daughter Urban. Urban asked DEVANTE to send a referral to [facility]. DEVANTE asked if she had any other choices in case [facility] cannot take patient. Urban said she does not and worst case scenario patient will go back to [facility] ([facility]). DEVANTE will work on referral. DEVANTE did tell Urban that patient is ready for discharge as soon as SW finds a place. DEVANTE did call [facility] and patient has not exhausted his skilled days, his insurance cut him because patient was not participating in therapy. DEVANTE made a referral to [facility]. DEVANTE also sent updates to [facility]. Jo Ann Rocha IMPROVEMENT AUDITOR LULA
--- NOTE | 2024-04-08 09:49 | CASEMGMT ---
DEVANTE called [facility] at [facility] and let her know DEVANTE just sent updates on patient. [facility] said patient does not need a pre-cert to return. [facility] does not think insurance will approve patient. DEVANTE did tell [employer] that patient is ready today. Patient's daughter asked DEVANTE to send a referral to [facility]. [facility] said they will probably deny. While patient was still at [facility] patient's daughter asked [employer] to send referrals to [facility], one of the facilities in [place] and on other facility. Two denied patient ([facility] and [facility]) and two did not respond. DEVANTE told [facility] L[facility] will be in touch with plan. Jo Ann Rocha LIGHT ADJUSTER LULA
--- NOTE | 2024-04-08 11:41 | CASEMGMT ---
[facility] declined patient. DEVANTE called patient's daughter Urban and let her know [facility] said no. At first Urban said he will have to go back to [facility] ([facility]). Then Urban said that patient's medical records from this stay cannot go to [facility]. DEVANTE told Urban that patient's medical records have to go to [facility] as they are caring for him. Urban then asked that a referral be sent to [facility]. DEVANTE asked Lillian to send a referral to [facility]. Jo Ann COTTON
--- NOTE | 2024-04-08 11:45 | CASEMGMT ---
Addendum entered by Lillian Hollis 04/10/24 08:15: [facility] declined referral. Lillian Hollis DC Planning Asst. Original Note: Discharge Planning Referral sent to [facility]. Lillian Hollis DC Planning Asst.
--- NOTE | 2024-04-08 11:53 | TREXTCAR_ITS ---
Diet Diet Order/Speech Therapy: 04/07/24 13:33 Diet: Regular - General Food consistency:: Pureed Liquid Consistency:: Devine/Mildly Thick Type of Dietary Supplement:: Magic Cup Dessert Is pt able to select menu?: No Diet Comments: magic cup tid w/ meals Routine Orders/Code Status Code Status: DNRCC-A (no intubation) Therapies Weight Bearing: Full weight bearing Physical Therapy: Eval and Treat Occupational Therapy: Eval and Treat Problem/Diagnosis (1) History of COPD: Status: Chronic Code(s): Z87.09 - Personal history of other diseases of the respiratory system (2) Acute alteration in mental status: Status: Acute Code(s): R41.82 - Altered mental status, unspecified Plan Septic shock * POA. Now resolved * 2/2 pneumonia * had been on norepinephrine, started 04/02 discontinued 04/03 Klebsiella pneumonia * On ceftriaxone. Started on pip/tazo on 04/03. Abx through 04/09. Can change to oral. * RLL on CXR from 04/02 Acute hypercapnic respiratory failure * resolved. ABG showed respiratory acidosis * 2/2 pneumonia * had been on BiPAP, now on room air. Metabolic encephalopathy * 2/2 pneumonia, septic shock in pt with known dementia. AUGUSTIN * resolved Chronic conditions: * Dementia. Hold home memantine for now * CAD s/p stenting in 2020-Cont asa and statin * Hypertension-Patient presently hypotensive, continue IVF and hold home an tihypertensives * GERD Continue PPI * Hx afib per previous documentation Hold home meds 2/2 hypotension Does not seem to be on any anticoagulation #DVT ppx: Heparin subcu Discharge planning: improving. CM working on where patient may return. Allergies/Procedures Done in Hospital Allergies cat dander (cats) Allergy (Mild, Verified 02/26/24 01:05) Rash Type of Care/Length of Stay Estimated LOS: More Than 30 Days Type of Care Needed: Intermediate Rehab Potential: Poor Prognosis: Fair Additional Orders/Day of Discharge Day of Discharge: 04/08/24 Dietary and Speech Recommendations Dietitian Recommendations/Changes: Liberalize diet to Regular to try to optimize oral intakes d/t signs and symptoms of malnutrition. Will order 120mL ensure plus high protein 4x daily to provide supplemental energy if consumed Will order magic cup w/ meals for increased nutrition if consumed. Discharge Plan Admission Admit Date/Time: 04/02/24 19:37 Primary Reason for Your Visit: Pneumonia Attending Provider: Pan Carbone Primary Care Provider: Jasson England Consulting Providers: Mary Carmen Gardner; Myles Perdomo; Andres Crowell Discharge Orders/Prescriptions Prescriptions: New ciprofloxacin HCl [Cipro] 500 mg tablet 500 mg PO BID Qty: 4 0RF Continued atorvastatin 20 mg tablet 20 mg PO QHS Qty: 90 3RF nifedipine 30 mg tablet extended release 24hr 30 mg PO DAILY Qty: 90 3RF ferrous sulfate 325 mg (65 mg iron) tablet 325 mg PO DAILY Qty: 90 3RF aspirin [Bertin Low Dose Aspirin] 81 mg tablet,delayed release (DR/EC) 81 mg PO DAILY cyanocobalamin (vitamin B-12) 1,000 mcg tablet 1,000 mcg PO DAILY albuterol sulfate 2.5 mg /3 mL (0.083 %) Solution For Nebulization 2.5 mg inhalation Q6H PRN (Reason: SHORTNESS OF BREATH/WHEEZING ) Qty: 0 0RF lisinopril 20 mg Tablet 20 mg PO DAILY Qty: 0 0RF folic acid 1 mg Tablet 1 mg PO DAILYCM Qty: 0 0RF Ensure Plus High Protein 0.08 gram-1.5 kcal/mL Liquid 120 ml PO 4X/DAY Qty: 0 0RF omeprazole 20 mg capsule,delayed release(DR/EC) 20 mg PO DAILY donepezil 5 mg tablet 5 mg PO QPM donepezil 10 mg tablet 10 mg PO QHS melatonin [Children's Sleep (melatonin)] 1 mg tablet,chewable 1 mg PO QHS Senna Plus 8.6-50 mg capsule 2 tab-cap PO DAILY PRN (Reason: constipation) Acidophilus Capsule 1 cap PO BID levetiracetam [Keppra] 500 mg tablet 500 mg PO BID acetaminophen 325 mg tablet 650 mg PO Q4H PRN (Reason: fever or pain) bisacodyl 10 mg suppository 10 mg [place] DAILY PRN (Reason: constipation) dextrose [Gluco Burst] 40 % gel 1 ea PO PRN PRN (Reason: hypoglycemia) Rx Instructions: until symptoms of low blood sugar are controlled glucagon 1 mg/0.2 mL auto-injector 1 mg subcut PRN PRN (Reason: hypoglycemia) magnesium hydroxide 400 mg/5 mL suspension 30 ml PO DAILY PRN (Reason: constipation) Discontinued tramadol 50 mg tablet 50 mg PO Q4H PRN (Reason: pain) Referrals / Follow Up: Jasson England MD [Primary Care Provider] - Disposition Disposition (needs filled in before D/C Order can be placed): [facility]
--- NOTE | 2024-04-08 15:11 | CASEMGMT ---
SW spent an extensive amount of time in patient's room listening and providing support to patient's daughter Libia. Libia is frustrated with [facility] ([facility]) and explained why. Libia said if patient has to he will go back to [facility] and at least he has a camera in the room which she will watch even closer. SW listened and provided emotional support. Libia also asked if patient could have had a Stroke. DEVANTE told Libia SW can pass along this question to the physician. DEVANTE also asked patient if she is aware of the group home care ombudsman and she was not. DEVANTE provided Libia with the group home care ombudsman information and contact number. [facility] still has not responded. SW also passed along a message to the physician regarding daughter's concerns. Physician then came and spoke with patient's daughter. Jo Ann COTTON
--- NOTE | 2024-04-08 15:32 | CT_ITS ---
STUDY: CT BRAIN WITHOUT CONTRAST REASON FOR EXAM: Male, 78 years old. encephalopathy RADIATION DOSAGE (If Supplied By Facility): CTDIvol = ( 44.99 ) mGy, DLP = ( 1043.86 ) mGycm TECHNIQUE: Transaxial CT imaging of the brain was performed without administration of intravenous contrast material. Individualized dose optimization techniques were used for this CT. The protocol utilizes one or more of the following dose reduction techniques: automated exposure control, adjustment of mA and/or kV according to patient size,and/or use of iterative reconstruction technique. COMPARISON: CT brain February 16, 2024 FINDINGS: Normal soft tissue structures. Normal calvarium. There is moderate cerebral atrophy with widening of the extra-axial spaces and ventricular dilatation. Normal white matter tracts of the cerebral hemispheres. Normal basal ganglia and thalami. Normal brainstem. Normal cerebellum. Intracranial atherosclerosis. There is no intracranial hemorrhage. There are no findings of an acute ischemic infarction. Normal visualized paranasal sinuses. CT/Brain/Head without Contrast IMPRESSION: No acute disease Electronically Signed: Louis Rice MD at 17:19 EDT ,
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
[2024-04-08] MEDS: Ceftriaxone 2 GM in 0.9% Normal Saline (50mL MB+) 50 ML IV (16:50)
[2024-04-08] MEDS: dexAMETHasone 10 MG/ML Vial 14 MG IV ×2 (16:51→21:32)
[2024-04-08] MEDS: Ampicillin 2 GM in 0.9% Normal Saline (100mL MB+) 100 ML IV ×2 (17:31→23:59)
[2024-04-08] MEDS: Vancomycin HCl 2,000 MG in 0.9% Normal Saline (500mL Bag) 500 ML 250 MG IV (17:52)
--- NOTE | 2024-04-08 18:06 | PCM.RX.CS ---
Consult Antibiotic Management Pharmacy has been consulted to manage selected antibiotic: Vancomycin Type of Intervention Type of Consult: New start Suspected Infection Suspected Infection: Meningitis Labs Labs: Sodium 143 mmol/L (136-145) 04/08/24 05:33 Potassium 3.4 mmol/L (3.5-5.1) L 04/08/24 05:33 Chloride 116 mmol/L (98-107) H 04/08/24 05:33 Carbon Dioxide 20.0 mmol/L (21.0-32.0) L 04/08/24 05:33 Anion Gap 7 (5-15) 04/08/24 05:33 BUN 15 mg/dL (7-18) 04/08/24 05:33 Creatinine 0.85 mg/dL (0.70-1.30) 04/08/24 05:33 Est GFR (MDRD) Af Amer 111 mL/min (>60) 04/08/24 05:33 Est GFR (MDRD) Non-Af 92 mL/min (>60) 04/08/24 05:33 BUN/Creatinine Ratio 17.6 RATIO (10-20) 04/08/24 05:33 Glucose 96 mg/dL (74-106) 04/08/24 05:33 Microbiology Microbiology: Microbiology 04/02/24 17:20 Blood Culture (Wb) - Right Wrist Blood Culture - Final No growth in 5 days. 04/02/24 Unknown Blood Culture (Wb) - Anticubital Left Blood Culture - Final No growth in 5 days. 04/03/24 18:30 Sputum, Induced/Lukens Gram Stain - Final 04/03/24 18:30 Sputum, Induced/Lukens Respiratory Culture - Final Klebsiella pneumoniae sp pneum 04/02/24 12:25 Urine, Catheterized Urine Culture - Final Presumptive E. coli 04/02/24 21:28 Mucosa - Nasopharyngeal Respiratory Panel (PCR) - Final 04/02/24 21:28 Mucosa - Nasopharyngeal SARS-CoV-2, Influenza & RSV (PCR) - Final 04/02/24 12:25 Urine Catheter - Pham Legionella Antigen - Final 04/02/24 12:25 Urine Catheter - Pham Streptococcus pneumoniae Antigen (M - Final Dosing Weight Weight used for dosin.2 kg Estimated Creatinine Clearance Estimated Creatinine Clearance: 77.3ML/MIN Goal Trough Goal Trough: 15-20 mcg/mL Pharmacy Plan for Drug Dosing Pharmacy Plan for Drug Dosing: Give load of 2000mg IV x1, then continue with 1250mg IV q12h per [facility] dosing protocol. Will check a trough before the 4th total dose. Pharmacy Service will continue to monitor and adjust dosing as required. Follow-Up Labs Follow-Up Labs: Trough: Vancomycin Date/Time Labs Ordered Labs to be done on [date and time ordered]: 04/10/24 05:30
[2024-04-08 18:10] LABS: Allen Test Positive; Base Excess -4 mmol/L (-2 to +2); Bicarbonate 20.6 mmol/L (22-26); Blood Gas Specimen Type ART; Mode Not entered; O2 Delivery Device Room Air; PO2 67 mmHG (75-100); SITE L Radial; SO2 94 % (95-99); Total Carbon Dioxide 22 mmol/L; pCO2 30.3 mmHg (35-45); pH 7.44 (7.35-7.45)
[2024-04-08] MEDS: DEXTROSE 5% IV (21:27)
[2024-04-08] MEDS: ACYCLOVIR IV (21:27)
[2024-04-08] MEDS: WATER IV (21:27)
[2024-04-09] VITALS (8 sets, daily range): BP systolic 111–177; BP diastolic 60–93; PULSE 65–90; RESP 17–18; TEMP 36.7–37.1; O2SAT 94–96; BMI 30.3
[2024-04-09] MEDS: dexAMETHasone 10 MG/ML Vial 14 MG IV ×4 (03:30→21:04)
[2024-04-09] MEDS: Ceftriaxone 2 GM in 0.9% Normal Saline (50mL MB+) 50 ML IV ×2 (03:32→16:06)
[2024-04-09] MEDS: Ampicillin 2 GM in 0.9% Normal Saline (100mL MB+) 100 ML IV ×4 (05:03→23:11)
[2024-04-09] MEDS: Vancomycin HCl 1,250 MG in 0.9% Normal Saline (250mL Bag) 250 ML 167 MG IV ×2 (05:03→18:10)
[2024-04-09] MEDS: DEXTROSE 5% IV ×3 (05:41→21:01)
[2024-04-09] MEDS: WATER IV ×3 (05:41→21:01)
[2024-04-09] MEDS: ACYCLOVIR IV ×3 (05:41→21:01)
[2024-04-09 06:02] LABS: Absolute Lymphocyte Count 0.43 X10^3/uL (0.83-4.51); Absolute Neutrophil Count 2.3 X10^3/uL (2.0-7.7); Basophil# 0.01 X10^3/uL; Basophil% 0.4 % (0-1); Hemoglobin 9.1 g/dL (13.0-16.5); Lymphocyte # 0.43 X10^3/ul (0.83-4.51); Lymphocyte % 15.2 % (19-41); Mean Corp Hgb Conc 32.5 g/dL (32-36); Mean Corpuscular Hgb 29.9 pg (27.0-32.0); Mean Corpuscular Volume 92.1 fL (80-94); Mean Platelet Vol. 9.7 fl (6.2-12.0); Monocyte# 0.06 X10^3/uL; Monocyte% 2.1 % (0-10); NRBC Flagged by Analyzer 0 % (0-5); Neutrophil # 2.29 X10^3/uL (2.7-7.7); Neutrophil % 80.9 % (47-70); POSITIVE DIFFERENTIAL YES; Platelet Count 157 K/mm3 (150-450); RBC Distribution Width CV 16.3 % (11.6-14.6); RBC Distribution Width SD 53.6 fl (35.1-43.9); Red Blood Count 3.04 M/mm3 (4.6-6.2); White Blood Count 2.8 K/mm3 (4.4-11.0)
[2024-04-09 06:25] LABS: ALB/GLOB Ratio 0.6 RATIO (0.9-2.4); AST(SGOT) 30 U/L (15-37); Alanine Aminotransfer ALT/SGPT 24 U/L (16-61); Albumin, Serum 2.2 g/dL (3.2-5.0); Alkaline Phosphatase 105 U/L (45-117); Anion Gap 7 (5-15); BUN 14 mg/dL (7-18); BUN/Creat Ratio 16.2 RATIO (10-20); Calcium,Total 8.4 mg/dL (8.5-10.1); Chloride 115 mmol/L (98-107); Creatinine, Serum 0.86 mg/dL (0.70-1.30); EST Glomerular Filtration Rate 91 mL/min (>60); Est Glom Filt Rate - Afr Amer 110 mL/min (>60); Estimated Creatinine Clearance 76.13 ml/min; Globulin 3.9 g/dL (2.2-4.2); Glucose 169 mg/dL (74-106); Potassium 3.5 mmol/L (3.5-5.1); Protein, Total 6.1 g/dL (6.4-8.2); Sodium Level 142 mmol/L (136-145)
--- NOTE | 2024-04-09 08:23 | PN.HOSP_ITS ---
Reason for Visit Reason for Visit: Diagnoses Pneumonia, unspecified organism (04/02/24) Acute respiratory failure with hypercapnia (04/02/24) Respiratory failure, unspecified, unspecified whether with hypoxia or hypercapnia (04/02/24) Hypoxemia (04/02/24) Altered mental status, unspecified (04/02/24) Personal history of other diseases of the respiratory system (04/02/24) Subjective Subjective More alert. Objective Data Objective Data Vital Signs: Vital Signs Temp Pulse Resp BP Pulse Ox O2 Del Method O2 Flow Rate 37.1 C 83 18 152/84 H 94 Room Air 3 04/09/24 03:21 04/09/24 03:21 04/09/24 03:21 04/09/24 03:21 04/09/24 03:21 04/09/24 07:36 04/06/24 07:09 FiO2 21 04/08/24 01:47 Oxygen Flow Rate (L/min) 3 Oxygen Delivery Method Room Air Weight: 90.6 kg Body Mass Index (BMI) 30.3 Intake & Output: Intake and Output for Last 24 Hours 04/07/24 04/08/24 04/09/24 23:59 23:59 23:59 Intake Total 1115 / 1115 3103.7 / 3103.7 788.7 / 788.7 Output Total 1750 / 1750 1325 / 1325 550 / 550 Balance -635 / -635 1778.7 / 1778.7 238.7 / 238.7 Medical Nutrition Assessment Dietitian: Malnutrition Criteria Met Start: 04/04/24 09:22 Freq: Status: Active Protocol: Document 04/04/24 09:22 SUSHMA (Rec: 04/04/24 09:22 [facility] [id number]) Nutrition Malnutrition Evidence of Malnutrition Exists Yes Malnutrition (severe): Acute Illness/Injury Evidenced By Suboptimal Energy Intake ( Severe),Weight Loss (Severe) Clinical Problem Acute Disease or Injury Related Malnutrition Etiology related to reported inadequate energy intake Signs/Symptoms as evidenced by pt meeting <50 % of est nutritional needs and 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 Recommend 120mL ensure plus high protein 4x daily to provide supplemental energy if consumed Lab / Micro Data 04/09/24 05:28 04/09/24 05:28 Labs: Laboratory Results - last 24 hr 04/09/24 05:28: WBC 2.8 L, RBC 3.04 L, Hgb 9.1 L, Hct 28.0 L, MCV 92.1, MCH 29.9, MCHC 32.5, RDW Std Deviation 53.6 H, RDW Coeff of Sophie 16.3 H, Plt Count 157, MPV 9.7, Immature Gran % (Auto) 1.400 H, Neut % (Auto) 80.9 H, Lymph % (Auto) 15.2 L, [place] % (Auto) 2.1, Eos % (Auto) 0.0, Baso % (Auto) 0.4, Absolute Neuts (auto) 2.3, Absolute Lymphs (auto) 0.43 L, Nucleated RBC % 0, Sodium 142, Potassium 3.5, Chloride 115 H, Carbon Dioxide 20.0 L, Anion Gap 7, BUN 14, Creatinine 0.86, Estim Creat Clear Calc 76.13, Est GFR (MDRD) Af Amer 110, Est GFR (MDRD) Non-Af 91, BUN/Creatinine Ratio 16.2, Glucose 169 H, Calcium 8.4 L, Total Bilirubin 0.40, AST 30, ALT 24, Alkaline Phosphatase 105, Total Protein 6.1 L, Albumin 2.2 L, Globulin 3.9, Albumin/Globulin Ratio 0.6 L Micro: Microbiology 04/02/24 17:20 Blood Culture (Wb) - Right Wrist Blood Culture - Final No growth in 5 days. 04/02/24 Unknown Blood Culture (Wb) - Anticubital Left Blood Culture - Final No growth in 5 days. 04/03/24 18:30 Sputum, Induced/Lukens Gram Stain - Final 04/03/24 18:30 Sputum, Induced/Lukens Respiratory Culture - Final Klebsiella pneumoniae sp pneum 04/02/24 12:25 Urine, Catheterized Urine Culture - Final Presumptive E. coli 04/02/24 21:28 Mucosa - Nasopharyngeal Respiratory Panel (PCR) - Final 04/02/24 21:28 Mucosa - Nasopharyngeal SARS-CoV-2, Influenza & RSV (PCR) - Final 04/02/24 12:25 Urine Catheter - Pham Legionella Antigen - Final 04/02/24 12:25 Urine Catheter - Pham Streptococcus pneumoniae Antigen (M - Final ABG Data ABG results: ABG 04/08/24 18:06 Specimen Type ART Sample Site L Radial pH 7.44 Bicarbonate Actual 20.6 L Total CO2 22 Base Excess -4 L O2 Saturation 94 L ABG pCO2 30.3 L ABG pO2 67 L Jus Test Positive O2 Delivery Device Room Air Vent Mode Not entered Radiography Diagnostic Testing: Radiology Impression Brain CT 04/08/24 15:32 IMPRESSION: No acute disease Electronically Signed: Louis Rice MD at 17:19 EDT , Rhythm Strip Rhythm Strip: Sinus Rhythm Rate: 67 Ectopy: None Physical Exam Const no apparent distress Constitutional Narrative: more alert. speaking more. speach more comprehensible. HEENT head/scalp atraumatic and moist oral mucous membranes Neck no lymphadenopathy Neck Narrative: meningismus. Resp normal respiratory effort and no retractions Resp Narrative: coarse breath sounds. Cardio regular rate, regular rhythm, S1 normal heart sound and S2 normal heart sound GI normal to inspection, nondistended, normoactive bowel sounds, soft to palpation and non-tender Neuro Sensorium / Orientation: awake and alert Assessment & Plan Assessment/Plan (1) History of COPD: (2) Acute alteration in mental status: PLAN: Plan Septic shock * POA. Now resolved * 2/2 pneumonia * had been on norepinephrine, started 04/02 discontinued 04/03 Klebsiella pneumonia * On ceftriaxone. Started on pip/tazo on 04/03. Abx through 04/09. Can change to oral. * RLL on CXR from 04/02 Encephalopathy * per discussion with dtr on 04/08, pt was previously independent until January, when he fell. Though he had been doing well until recently. His mental status has not changed during this admission. * head CT negative. * LP ordered. EEG ordered * Started on ampicillin, CTX, vancomycin, azithromycin and dexamethasone Acute hypercapnic respiratory failure * resolved. ABG showed respiratory acidosis * 2/2 pneumonia * had been on BiPAP, now on room air. AUGUSTIN * resolved Chronic conditions: * Dementia. complicates care and recovery. Per dtr, pt was previously independent. * CAD s/p stenting in 2020-Cont asa and statin * Hypertension-Patient presently hypotensive, continue IVF and hold home antihypertensives * GERD Continue PPI * Hx afib per previous documentation Hold home meds 2/2 hypotension Does not seem to be on any anticoagulation DVT ppx: Heparin subcu Charges/Coding Visit Charges Inpatient E&M: 84782 Subs Hosp L3
[2024-04-09] MEDS: Lidocaine 2% (5ml sdv) 5 ML VIAL.MPF INFILT ×2 (09:12)
--- NOTE | 2024-04-09 09:58 | PRO.PCM_ITS ---
Procedure Report Date of Procedure: 04/09/24 Assessment & Plan Assessment/Plan (1) Acute alteration in mental status: PLAN: PROCEDURE: Fluoroscopic guided Lumbar Puncture-UNSUCCESSFUL ATTEMPT ORDERING PROVIDER: Dr. Carbone CLINICAL INDICATION: Male, 78 years old. Acute alteration in mental status. PROVIDER: AMBER Conner MEDICATIONS: 2% lidocaine administered subcutaneously for local anesthesia ACCESS SITE: Lower posterior back. NEEDLE: 20-gauge spinal needle. SPECIMEN: Unable to be obtained COMPLICATIONS: None immediate. FLUOROSCOPY TIME (if supplied): 297 seconds. 82 mGy The risks, benefits, and alternatives to the procedure were explained to the pat ient's daughter over the phone. The specific risks of bleeding, infection, and neurovascular injury were detailed and accepted. Consent was obtained from the daughter who is the POA and verified by second RN. The patient was placed on the fluoroscopic table in the prone position. The level for needle entry was determined and marked. The overlying skin was cleaned and prepped in the usual sterile fashion. 2% lidocaine was administered subcutaneously for local anesthesia. Under fluoroscopic guidance a 20-gauge spinal needle was advanced. The thecal sac was attempted to be entered at the L 3-L 4 vertebral level, as well as the L4-L5 vertebral level. However CSF was unable to be obtained. The needle was withdrawn. Hemostasis was achieved and a sterile dressing placed. The patient tolerated the procedure well without any immediate complications. The patient's daughter was called to inform of on next successful procedure. I will discuss the patient tomorrow with Dr. Dyson, attending radiologist. IMPRESSION: Unsuccessful fluoroscopic-guided lumbar puncture.
[2024-04-09] MEDS: NIFEdipine 30 MG Tablet PO (10:43)
[2024-04-09] MEDS: Lisinopril 20 MG Tablet PO (10:43)
[2024-04-09] MEDS: 0.9% Saline Lock 10 ML Syringe IV ×2 (10:43→16:03)
[2024-04-09] MEDS: Senna/Docusate Sodium 1 Tablet 2 TABLET PO (10:50)
[2024-04-09] MEDS: Ipratropium/Albuterol Sulfate 3 ML AMPUL.NEB INHALATION ×2 (12:20→20:30)
--- NOTE | 2024-04-09 12:58 | NURSING ---
Attempted to return call to patient's Granddaughter, Lori, who called in for an update. Message left to return call back when available.
[2024-04-09] MEDS: Dextrose 5%-Water (1000mL Bag) 1,000 ML 60 ML IV (16:05)
--- NOTE | 2024-04-09 16:12 | ST.MBS ---
Modified Barium Swallow Patient Information Study Date: 04/09/24 Study Time: 14:25 Direct Billable Minutes: 60 Total Minutes procedure & reportin Diagnosis: PNA J18.9; Hypoxia R09.02 Referring Physician: Pan Carbone Reason for Referral: Objectively assess swallow function, assess risk for aspiration, and determine recommendations for least restrictive diet textures and compensatory strategies to improve safety of swallow. Medical History: The patient is a 78-year-old male with PMH below who presented to [facility] ED 04/02/24 due to hypoxia and AMS. Pt was admitted to PCU for management of PNA and hypoxia. He was initially minimally responsive and required BiPAP. With medical management, respiratory status and mental status gradually improved during stay. BSE 04/06/24 recommended puree textures / mildly thick liquids - TOTAL FEED ONLY IF FULLY ALERT with plans for MBSS in upcoming sessions. He became more alert and appropriate for MBSS today, 04/09/24 and was brought to radiology for MBSS to further assess risk for aspiration. Medical History (Updated 04/02/24 @ 20:[address] Mary Carmen Gardner MD) Acute alteration in mental status Acute respiratory failure with hypoxia Adult failure to thrive Altered mental status Anemia Anemia Anemia Anxiety Atherosclerotic heart disease of [place] coronary artery without angina pectoris Atrial fibrillation Back pain Bradycardia Chest pain CHF (congestive heart failure) CHI (closed head injury) Chronic anemia Confusion Congestive heart failure (CHF) COPD exacerbation Coronary artery disease Degenerative disc disease, lumbar Degenerative disk disease Delirium Diabetes Essential hypertension Fall Fall Former smoker GERD (gastroesophageal reflux disease) Hallucinations History of diabetes mellitus HLD (hyperlipidemia) Hypertension Hypertensive urgency Hypoxia Lower extremity edema Macrocytic anemia On home oxygen therapy Orthostatic hypotension Parkinson's disease Presence of stent in coronary artery (~05/12/21) Short-term memory loss Syncope Vertigo Current Diet Ordered: Puree / Mildly thick liquids Dentition: Edentulous (Daughter to bring dentures in for future sessions w/ RETAIL OPERATIONS SPECIALIST) Mental Status: Impaired (Continues with acute confusion, but patient is alert) Respiratory Status: Oxygenating on Room Air Penetration-Aspiration Scale Penetration-Aspiration Scale: OBJECTIVE ASSESSMENT OF SWALLOW FUNCTION (QUANTITATIVE ? PER TRIAL): PENETRATION / ASPIRATION SCALE (TORRES): 1 = does not enter airway 2 = enters airway/above vocal folds/ejected 3 = enters airway/above vocal folds/not ejected 4 = enters airway/contacts vocal folds/ejected 5 = enters airway/contacts vocal folds/not ejected 6 = enters airway/below vocal folds/ejected 7 = enters airway/below vocal folds/not ejected despite effort 8 = enters airway/below vocal folds/no effort VIDEOFLOROSCOPIC SCALE SCORE (TORRES): Grade I = aspiration of material that has penetrated into the laryngeal vestibule, intact cough reflex Grade II = aspiration < 10 % of the bolus, intact cough reflex Grade III = aspiration of < 10 % of the bolus, reduced cough reflex or aspiration of > 10 % of the bolus, intact cough reflex Grade IV = aspiration of > 10 % of the bolus, reduced cough reflex Penetration-Aspiration Scale Score Thin Liquid via teaspoon: Result: 1= does not enter airway Thin Liquid via small single sip: cup: Result: 1= does not enter airway Pudding via teaspoon: Result: 1= does not enter airway Thin Liquid via sequential sips:straw: Result: 1= does not enter airway 1/4 Cookie: Comment: Could not score as patient had ineffective mastication and RETAIL OPERATIONS SPECIALIST manually cleared un-chewed cookie from patient's mouth with a spoon. [place] Thick Liquid via small single sip: cup: Result: 2= enter airway/above vocal folds/ejected (trace) Oral Phase Labial Seal: Interlabial escape, no progression to anterior lip Tongue Control During Bolus Hold: Posterior escape of greater than half of bolus Bolus Preparation/Mastication: Minimal chewing/mashing with majority of bolus unchewed Bolus Transport/Lingual Motion: Repetitive/disorganized tongue motion Oral Residue: Residue collection on oral structures Pharyngeal Phase Initiation of Pharyngeal Swallow: Bolus head in pyriforms Soft Palate Elevation: No bolus between soft palate and pharyngeal wall Laryngeal Elevation: Comp. Superior move thyroid cart w/comp. apprx arytenoid cart-epig pet Anterior Hyoid Excursion: Complete anterior movement Epiglottic Movement: Complete inversion Laryngeal Vestibule Closure at Height of Swallow: Incomplete; narrow column of air/contrast in laryngeal vestibule (trace mildly thick liquid) Pharyngeal Stripping Wave: Present - diminished Pharyngoesophageal Segment Opening: Parital distension and partial duration; parital obstruction of flow Tongue Base Retraction: Narrow column of contrast between tongue base & post. pharyngeal wall Pharyngeal Residue: Collection of residue within or on pharyngeal structures Esophageal Phase Esophageal Clearance: Complete clearance Diagnosis/Impression Diagnosis: Mild-moderate oropharyngeal dysphagia R13.12 Impression: The oral phase is primarily marked by.. -Disorganized tongue motion resulting in posterior loss of >1/2 bolus to the pyriforms prior to swallow onset, as well as lingual pumping for A-P transport. -Inadequate mastication. RETAIL OPERATIONS SPECIALIST manually cleared un-chewed cookie from patient's mouth with a spoon. Of note, patient's daughter is bringing in dentures tomorrow. -Mild-moderate oral residues. The pharyngeal phase is primarily marked by... -Delayed swallow onset. -Mild-moderate pharyngeal residue due to decreased tongue base retraction, pharyngeal stripping wave, and UES opening duration. -Only trace laryngeal penetration of mildly thick liquids, which fully ejected. Overall, he maintained good airway closure during the swallow. Cannot definitively rule out aspiration due to pt's body habitus. Recommendations Diet: Puree Textures and Thin Liquids Compensatory Strategies: Small Bites, Small Sips, Slow Rate, Feed only when alert, Sitting upright and Remain sitting upright for 30 minutes after PO intake Supervision: Total Feed Recommend Repeat Modified Barium Swallow: No Need for Skilled Speech Therapy Services: Yes Comment: -Train the patient's family and staff in use of strategies to decrease risk for aspiration. -Ongoing assessment of diet tolerance of recommended textures. If deemed appropriate by RETAIL OPERATIONS SPECIALIST and dentures are present, will recommend trialing minced and moist or soft and bite size textures to consider diet advancement. -Unlikely pt is able to participate in oropharyngeal strengthening given difficulty following commands with current altered mental status. Education Completed: 1. Described result of evaluation., 4. Family/caregivers understand evaluation & agree w/ goals & tx plan., 6. Family/caregivers demonstrate recommended strategies. and 7. Pt requires further education on strategies & risks. Status Active ST Patient: Active Contact Information [facility] Speech Therapy:: Tammy Kendrick M.A. [facility]-RETAIL OPERATIONS SPECIALIST? Speech-Language Pathologist?? [facility] [address] [place] [address]? [email or web address]?? [phone]
[2024-04-10] VITALS (7 sets, daily range): BP systolic 105–159; BP diastolic 69–89; PULSE 65–87; RESP 16–18; TEMP 36.2–36.7; O2SAT 96–99; BMI 29.5
[2024-04-10] MEDS: Ceftriaxone 2 GM in 0.9% Normal Saline (50mL MB+) 50 ML IV (03:50)
[2024-04-10] MEDS: dexAMETHasone 10 MG/ML Vial 14 MG IV ×3 (03:53→16:39)
[2024-04-10] MEDS: WATER IV ×3 (05:00→22:45)
[2024-04-10] MEDS: ACYCLOVIR IV ×3 (05:00→22:45)
[2024-04-10] MEDS: DEXTROSE 5% IV ×3 (05:00→22:45)
[2024-04-10] MEDS: Ampicillin 2 GM in 0.9% Normal Saline (100mL MB+) 100 ML IV ×2 (05:01→12:02)
[2024-04-10 06:08] LABS: Absolute Lymphocyte Count 0.69 X10^3/uL (0.83-4.51); Absolute Neutrophil Count 2.1 X10^3/uL (2.0-7.7); Basophil# 0.01 X10^3/uL; Basophil% 0.3 % (0-1); Hematocrit 27.1 % (40-54); Hemoglobin 8.9 g/dL (13.0-16.5); Lymphocyte # 0.69 X10^3/ul (0.83-4.51); Lymphocyte % 22.5 % (19-41); Mean Corp Hgb Conc 32.8 g/dL (32-36); Mean Corpuscular Hgb 30.2 pg (27.0-32.0); Mean Corpuscular Volume 91.9 fL (80-94); Mean Platelet Vol. 9.5 fl (6.2-12.0); Monocyte# 0.23 X10^3/uL; Monocyte% 7.5 % (0-10); NRBC Flagged by Analyzer 0 % (0-5); Neutrophil # 2.11 X10^3/uL (2.7-7.7); Platelet Count 172 K/mm3 (150-450); RBC Distribution Width CV 15.8 % (11.6-14.6); RBC Distribution Width SD 51.6 fl (35.1-43.9); Red Blood Count 2.95 M/mm3 (4.6-6.2); White Blood Count 3.1 K/mm3 (4.4-11.0)
[2024-04-10 06:23] LABS: Vancomycin, Trough Level 24.2 ug/mL (5.0-15.0)
[2024-04-10 06:39] LABS: Anion Gap 7 (5-15); BUN 19 mg/dL (7-18); BUN/Creat Ratio 24.4 RATIO (10-20); Calcium,Total 8.4 mg/dL (8.5-10.1); Chloride 112 mmol/L (98-107); Creatinine, Serum 0.78 mg/dL (0.70-1.30); EST Glomerular Filtration Rate 102 mL/min (>60); Est Glom Filt Rate - Afr Amer 123 mL/min (>60); Estimated Creatinine Clearance 80.87 ml/min; Glucose 140 mg/dL (74-106); Potassium 3.1 mmol/L (3.5-5.1); Sodium Level 141 mmol/L (136-145)
[2024-04-10] MEDS: Ipratropium/Albuterol Sulfate 3 ML AMPUL.NEB INHALATION ×3 (06:53→19:10)
--- NOTE | 2024-04-10 06:56 | PCM.RX.CS ---
Consult Antibiotic Management Pharmacy has been consulted to manage selected antibiotic: Vancomycin Type of Intervention Type of Consult: Follow-up Suspected Infection Suspected Infection: Meningitis Prior Doses of Antibiotics Prior Doses of Antibiotics Received/Current Regimen: 04/08/24 @ 1752 Patient received 2000mg loading dose 04/09/24 @ 0503 patient received 1250mg 04/09/24 @ 1810 patient received 1250mg Labs Labs: Sodium 141 mmol/L (136-145) 04/10/24 05:52 Potassium 3.1 mmol/L (3.5-5.1) L 04/10/24 05:52 Chloride 112 mmol/L (98-107) H 04/10/24 05:52 Carbon Dioxide 22.0 mmol/L (21.0-32.0) 04/10/24 05:52 Anion Gap 7 (5-15) 04/10/24 05:52 BUN 19 mg/dL (7-18) H 04/10/24 05:52 Creatinine 0.78 mg/dL (0.70-1.30) 04/10/24 05:52 Est GFR (MDRD) Af Amer 123 mL/min (>60) 04/10/24 05:52 Est GFR (MDRD) Non-Af 102 mL/min (>60) 04/10/24 05:52 BUN/Creatinine Ratio 24.4 RATIO (10-20) H 04/10/24 05:52 Glucose 140 mg/dL (74-106) H 04/10/24 05:52 Vancomycin Trough 24.2 ug/mL (5.0-15.0) H 04/10/24 05:52 Microbiology Microbiology: Microbiology 04/02/24 17:20 Blood Culture (Wb) - Right Wrist Blood Culture - Final No growth in 5 days. 04/02/24 Unknown Blood Culture (Wb) - Anticubital Left Blood Culture - Final No growth in 5 days. 04/03/24 18:30 Sputum, Induced/Lukens Gram Stain - Final 04/03/24 18:30 Sputum, Induced/Lukens Respiratory Culture - Final Klebsiella pneumoniae sp pneum 04/02/24 12:25 Urine, Catheterized Urine Culture - Final Presumptive E. coli 04/02/24 21:28 Mucosa - Nasopharyngeal Respiratory Panel (PCR) - Final 04/02/24 21:28 Mucosa - Nasopharyngeal SARS-CoV-2, Influenza & RSV (PCR) - Final 04/02/24 12:25 Urine Catheter - Pham Legionella Antigen - Final 04/02/24 12:25 Urine Catheter - Pham Streptococcus pneumoniae Antigen (M - Final Dosing Weight Weight used for dosin kg Goal Trough Goal Trough: 15-20 mcg/mL Pharmacy Plan for Drug Dosing Pharmacy Plan for Drug Dosing: Vancomycin trough drawn 04/10/24 @ 0552 is 24.2 Hold Vancomycin and draw a random level at 1800 on 04/10/24 Pharmacy Service will continue to monitor and adjust dosing as required. Date/Time Labs Ordered Labs to be done on [date and time ordered]: 04/10/24 @ 1800 random level
--- NOTE | 2024-04-10 09:17 | PN.HOSP_ITS ---
Reason for Visit Reason for Visit: Diagnoses Pneumonia, unspecified organism (04/02/24) Acute respiratory failure with hypercapnia (04/02/24) Respiratory failure, unspecified, unspecified whether with hypoxia or hypercapnia (04/02/24) Hypoxemia (04/02/24) Altered mental status, unspecified (04/02/24) Personal history of other diseases of the respiratory system (04/02/24) Subjective Subjective More alert, but still confused. Objective Data Objective Data Vital Signs: Vital Signs Temp Pulse Resp BP Pulse Ox O2 Del Method O2 Flow Rate 36.7 C 78 18 156/89 H 97 Room Air 3 04/10/24 03:47 04/10/24 03:47 04/10/24 03:47 04/10/24 03:47 04/10/24 03:47 04/10/24 08:17 04/06/24 07:09 FiO2 21 04/08/24 01:47 Oxygen Flow Rate (L/min) 3 Oxygen Delivery Method Room Air Weight: 88.3 kg Body Mass Index (BMI) 29.5 Intake & Output: Intake and Output for Last 24 Hours 04/08/24 04/09/24 04/10/24 23:59 23:59 23:59 Intake Total 3103.7 / 3103.7 3191.1 / 3191.1 413.7 / 413.7 Output Total 1325 / 1325 1300 / 1300 200 / 200 Balance 1778.7 / 1778.7 1891.1 / 1891.1 213.7 / 213.7 Medical Nutrition Assessment Dietitian: Malnutrition Criteria Met Start: 04/04/24 09:22 Freq: Status: Active Protocol: Document 04/04/24 09:22 SUSHMA (Rec: 04/04/24 09:22 [facility] [id number]) Nutrition Malnutrition Evidence of Malnutrition Exists Yes Malnutrition (severe): Acute Illness/Injury Evidenced By Suboptimal Energy Intake ( Severe),Weight Loss (Severe) Clinical Problem Acute Disease or Injury Related Malnutrition Etiology related to reported inadequate energy intake Signs/Symptoms as evidenced by pt meeting <50 % of est nutritional needs and 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 Recommend 120mL ensure plus high protein 4x daily to provide supplemental energy if consumed Lab / Micro Data 04/10/24 05:52 04/10/24 05:52 Labs: Laboratory Results - last 24 hr 04/09/24 05:28: Diff Path Review January04/10/24 05:52: WBC 3.1 L, RBC 2.95 L, Hgb 8.9 L, Hct 27.1 L, MCV 91.9, MCH 30.2, MCHC 32.8, RDW Std Deviation 51.6 H, RDW Coeff of Sophie 15.8 H, Plt Count 172, MPV 9.5, Immature Gran % (Auto) 0.700, Neut % (Auto) 69.0, Lymph % (Auto) 22.5, [place] % (Auto) 7.5, Eos % (Auto) 0.0, Baso % (Auto) 0.3, Absolute Neuts (auto) 2.1, Absolute Lymphs (auto) 0.69 L, Nucleated RBC % 0, Sodium 141, P otassium 3.1 L, Chloride 112 H, Carbon Dioxide 22.0, Anion Gap 7, BUN 19 H, Creatinine 0.78, Estim Creat Clear Calc 80.87, Est GFR (MDRD) Af Amer 123, Est GFR (MDRD) Non-Af 102, BUN/Creatinine Ratio 24.4 H, Glucose 140 H, Calcium 8.4 L , Vancomycin Trough 24.2 H Micro: Microbiology 04/02/24 17:20 Blood Culture (Wb) - Right Wrist Blood Culture - Final No growth in 5 days. 04/02/24 Unknown Blood Culture (Wb) - Anticubital Left Blood Culture - Final No growth in 5 days. 04/03/24 18:30 Sputum, Induced/Lukens Gram Stain - Final 04/03/24 18:30 Sputum, Induced/Lukens Respiratory Culture - Final Klebsiella pneumoniae sp pneum 04/02/24 12:25 Urine, Catheterized Urine Culture - Final Presumptive E. coli 04/02/24 21:28 Mucosa - Nasopharyngeal Respiratory Panel (PCR) - Final 04/02/24 21:28 Mucosa - Nasopharyngeal SARS-CoV-2, Influenza & RSV (PCR) - Final 04/02/24 12:25 Urine Catheter - Pham Legionella Antigen - Final 04/02/24 12:25 Urine Catheter - Pham Streptococcus pneumoniae Antigen (M - Final Rhythm Strip Rhythm Strip: Sinus Rhythm Rate: 67 Ectopy: None Physical Exam Const no apparent distress Constitutional Narrative: confused, but more alert. HEENT head/scalp atraumatic and moist oral mucous membranes Resp normal respiratory effort, no retractions, no use of accessory muscles and clear to auscultation bilaterally Cardio regular rate, regular rhythm, S1 normal heart sound and S2 normal heart sound GI normal to inspection, nondistended, normoactive bowel sounds, soft to palpation, non-tender and non-distended Neuro Sensorium / Orientation: awake and alert Assessment & Plan Assessment/Plan (1) History of COPD: (2) Acute alteration in mental status: PLAN: Plan Septic shock * POA. Now resolved * 2/2 pneumonia * had been on norepinephrine, started 04/02 discontinued 04/03 Klebsiella pneumonia * On ceftriaxone. Started on pip/tazo on 04/03. Abx through 04/09. Can change to oral. * RLL on CXR from 04/02 Encephalopathy * per discussion with dtr on 04/08, pt was previously independent until January, when he fell. Though he had been doing well until recently. His mental status has not changed during this admission. * head CT negative. * LP ordered. * EEG shows moderate diffuse encephalopathy * Started on ampicillin, CTX, vancomycin, azithromycin and dexamethasone. Lumbar puncture was unable to be performed due to arthritis. As I do not feel the patient actually has meningitis I am going to discontinue the antibiotics but I will continue with the acyclovir. * Patient may just be treated empirically for possible encephalitis though concerned that patient may have some underlying dementia and with his recent illness and septic shock he may just be very slow to recover. Acute hypercapnic respiratory failure * resolved. ABG showed respiratory acidosis * 2/2 pneumonia * had been on BiPAP, now on room air. AUGUSTIN * resolved Chronic conditions: * Dementia. complicates care and recovery. Per dtr, pt was previously independent. * CAD s/p stenting in 2020-Cont asa and statin * Hypertension-Patient presently hypotensive, continue IVF and hold home antihypertensives * GERD Continue PPI * Hx afib per previous documentation Hold home meds 2/2 hypotension Does not seem to be on any anticoagulation DVT ppx: Heparin subcu Greater than 50 minutes of which greater than for percent of time was spent at bedside but also discussing with the patient's daughter. Explained to her that we are unable to do the lumbar puncture. Explained her also that I do not feel that he has meningitis on going to discontinue the antibiotics but will continue with acyclovir for now. Also explained that some I am not sure he has encephalitis but will treat him empirically. Will observe him over the weekend and see how he does. And I did mention to her that it may be just a matter of slow recovery from his septic shock and pneumonia. She expressed thanks and understanding. Charges/Coding Visit Charges Inpatient E&M: 64095 Subs Hosp L3
[2024-04-10] MEDS: NIFEdipine 30 MG Tablet PO (09:36)
[2024-04-10] MEDS: Pantoprazole Sodium 20 MG Tablet PO (09:36)
[2024-04-10] MEDS: Aspirin E.C. 81 MG Tablet PO (09:36)
[2024-04-10] MEDS: Lisinopril 20 MG Tablet PO (09:37)
[2024-04-10] MEDS: Senna/Docusate Sodium 1 Tablet 2 TABLET PO ×2 (09:38→22:32)
[2024-04-10] MEDS: Folic Acid 1 MG Tablet PO (09:41)
[2024-04-10] MEDS: Lactobacillis Acidophilus 1 CAP PO ×2 (09:42→22:32)
--- NOTE | 2024-04-10 10:18 | CASEMGMT ---
SW called patient's daughter regarding d/c plan. Urban did ask SW to send a referral to [facility]. She is likely going to have patient go back to [facility]. DEVANTE asked Lillian send a referral to [facility]. Jo Ann COTTON
--- NOTE | 2024-04-10 10:42 | CASEMGMT ---
Addendum entered by Lillian Hollis 04/10/24 11:13: [facility] accepted. Lillian Hollis DC Planning Asst. Original Note: Discharge Planning Referral sent to [facility] via [employer]. Lillian Hollis DC Planning Asst.
--- NOTE | 2024-04-10 11:08 | CASEMGMT ---
[facility] accepted patient. SW called Libia, patient's daughter and left her a voice mail letting her know this information. DEVANTE requested a return call. Jo Ann COTTON
[2024-04-10] MEDS: 0.9% Saline Lock 10 ML Syringe IV (12:10)
[2024-04-10] MEDS: Dextrose 5%-Water (1000mL Bag) 1,000 ML 60 ML IV (12:10)
--- NOTE | 2024-04-10 12:51 | CASEMGMT ---
DEVANTE spoke with patient's daughter, Urban. Urban said she will let SW know this evening whether she wants [facility] or [facility]. Jo Ann COTTON
[2024-04-10] MEDS: Potassium Chloride Oral Soln 20 MEQ/15 ML UDC 40 MEQ PO (14:29)
[2024-04-10 14:48] LABS: Pathologist Review Reviewed
[2024-04-10] MEDS: Atorvastatin Calcium 20 MG Tablet PO (22:32)
[2024-04-11] VITALS (8 sets, daily range): BP systolic 96–135; BP diastolic 58–78; PULSE 69–80; RESP 16–22; TEMP 35.6–36.4; O2SAT 94–98; BMI 31.6
[2024-04-11] MEDS: Ipratropium/Albuterol Sulfate 3 ML AMPUL.NEB INHALATION ×3 (00:48→19:03)
[2024-04-11 05:12] LABS: Absolute Lymphocyte Count 0.82 X10^3/uL (0.83-4.51); Hematocrit 26.9 % (40-54); Hemoglobin 8.9 g/dL (13.0-16.5); Lymphocyte # 0.82 X10^3/ul (0.83-4.51); Lymphocyte % 19.6 % (19-41); Mean Corp Hgb Conc 33.1 g/dL (32-36); Mean Corpuscular Hgb 30.2 pg (27.0-32.0); Mean Corpuscular Volume 91.2 fL (80-94); Mean Platelet Vol. 9.7 fl (6.2-12.0); Monocyte# 0.33 X10^3/uL; Monocyte% 7.9 % (0-10); NRBC Flagged by Analyzer 0 % (0-5); Neutrophil # 3.01 X10^3/uL (2.7-7.7); Platelet Count 213 K/mm3 (150-450); RBC Distribution Width CV 15.9 % (11.6-14.6); RBC Distribution Width SD 51.9 fl (35.1-43.9); Red Blood Count 2.95 M/mm3 (4.6-6.2); White Blood Count 4.2 K/mm3 (4.4-11.0)
[2024-04-11] MEDS: WATER IV ×3 (06:14→21:33)
[2024-04-11] MEDS: ACYCLOVIR IV ×3 (06:14→21:33)
[2024-04-11] MEDS: Dextrose 5%-Water (1000mL Bag) 1,000 ML 60 ML IV (06:14)
[2024-04-11] MEDS: DEXTROSE 5% IV ×3 (06:14→21:33)
[2024-04-11 06:27] LABS: Anion Gap 8 (5-15); BUN 21 mg/dL (7-18); BUN/Creat Ratio 25.5 RATIO (10-20); Calcium,Total 8.4 mg/dL (8.5-10.1); Chloride 110 mmol/L (98-107); Creatinine, Serum 0.82 mg/dL (0.70-1.30); EST Glomerular Filtration Rate 96 mL/min (>60); Est Glom Filt Rate - Afr Amer 116 mL/min (>60); Estimated Creatinine Clearance 81.37 ml/min; Glucose 165 mg/dL (74-106); Magnesium 1.9 mg/dL (1.6-2.6); Potassium 3.3 mmol/L (3.5-5.1); Sodium Level 141 mmol/L (136-145)
--- NOTE | 2024-04-11 08:00 | PN.HOSP_ITS ---
Reason for Visit Reason for Visit: Diagnoses Pneumonia, unspecified organism (04/02/24) Acute respiratory failure with hypercapnia (04/02/24) Respiratory failure, unspecified, unspecified whether with hypoxia or hypercapnia (04/02/24) Hypoxemia (04/02/24) Altered mental status, unspecified (04/02/24) Personal history of other diseases of the respiratory system (04/02/24) Subjective Subjective Speaking more coherently. Objective Data Objective Data Vital Signs: Vital Signs Temp Pulse Resp BP Pulse Ox O2 Del Method O2 Flow Rate 35.6 C L 79 16 96/78 97 Room Air 3 04/11/24 03:49 04/11/24 06:58 04/11/24 06:58 04/11/24 03:49 04/11/24 03:49 04/11/24 03:49 04/06/24 07:09 FiO2 21 04/08/24 01:47 Oxygen Flow Rate (L/min) 3 Oxygen Delivery Method Room Air Weight: 94.3 kg Body Mass Index (BMI) 31.6 Intake & Output: Intake and Output for Last 24 Hours 04/09/24 04/10/24 04/11/24 23:59 23:59 23:59 Intake Total 3191.1 / 3191.1 1827.4 / 1827.4 1527.4 / 1527.4 Output Total 1300 / 1300 875 / 875 100 / 100 Balance 1891.1 / 1891.1 952.4 / 952.4 1427.4 / 1427.4 Medical Nutrition Assessment Dietitian: Malnutrition Criteria Met Start: 04/04/24 09:22 Freq: Status: Active Protocol: Document 04/04/24 09:22 SUSHMA (Rec: 04/04/24 09:22 SUSHMA [id number]) Nutrition Malnutrition Evidence of Malnutrition Exists Yes Malnutrition (severe): Acute Illness/Injury Evidenced By Suboptimal Energy Intake ( Severe),Weight Loss (Severe) Clinical Problem Acute Disease or Injury Related Malnutrition Etiology related to reported inadequate energy intake Signs/Symptoms as evidenced by pt meeting <50 % of est nutritional needs and 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 Recommend 120mL ensure plus high protein 4x daily to provide supplemental energy if consumed Lab / Micro Data 04/11/24 03:52 04/11/24 03:52 Labs: Laboratory Results - last 24 hr 04/09/24 05:28: Diff Path Review Reviewed 04/11/24 03:52: WBC 4.2 L, RBC 2.95 L, Hgb 8.9 L, Hct 26.9 L, MCV 91.2, MCH 30.2, MCHC 33.1, RDW Std Deviation 51.9 H, RDW Coeff of Sophie 15.9 H, Plt Count 213, MPV 9.7, Immature Gran % (Auto) 0.500, Neut % (Auto) 72.0 H, Lymph % (Auto) 19.6, [place] % (Auto) 7.9, Eos % (Auto) 0.0, Baso % (Auto) 0.0, Absolute Neuts (auto) 3.0, Absolute Lymphs (auto) 0.82 L, Nucleated RBC % 0, Sodium 141, P otassium 3.3 L, Chloride 110 H, Carbon Dioxide 23.0, Anion Gap 8, BUN 21 H, Creatinine 0.82, Estim Creat Clear Calc 81.37, Est GFR (MDRD) Af Amer 116, Est GFR (MDRD) Non-Af 96, BUN/Creatinine Ratio 25.5 H, Glucose 165 H, Calcium 8.4 L, Magnesium 1.9, Folate 28.50 Micro: Microbiology 04/02/24 17:20 Blood Culture (Wb) - Right Wrist Blood Culture - Final No growth in 5 days. 04/02/24 Unknown Blood Culture (Wb) - Anticubital Left Blood Culture - Final No growth in 5 days. 04/03/24 18:30 Sputum, Induced/Lukens Gram Stain - Final 04/03/24 18:30 Sputum, Induced/Lukens Respiratory Culture - Final Klebsiella pneumoniae sp pneum 04/02/24 12:25 Urine, Catheterized Urine Culture - Final Presumptive E. coli 04/02/24 21:28 Mucosa - Nasopharyngeal Respiratory Panel (PCR) - Final 04/02/24 21:28 Mucosa - Nasopharyngeal SARS-CoV-2, Influenza & RSV (PCR) - Final 04/02/24 12:25 Urine Catheter - Pham Legionella Antigen - Final 04/02/24 12:25 Urine Catheter - Pham Streptococcus pneumoniae Antigen (M - Final Rhythm Strip Rhythm Strip: Sinus Rhythm Rate: 67 Ectopy: None Physical Exam Const Constitutional Narrative: more awake. more coherent speech. afebrile. HEENT head/scalp atraumatic and moist oral mucous membranes Resp normal respiratory effort, no retractions, no use of accessory muscles and clear to auscultation bilaterally Cardio regular rate, regular rhythm, S1 normal heart sound and S2 normal heart sound GI normal to inspection, nondistended, normoactive bowel sounds, soft to palpation, non-tender and non-distended Assessment & Plan Assessment/Plan (1) History of COPD: (2) Acute alteration in mental status: PLAN: Plan Septic shock * POA. Now resolved * 2/2 pneumonia * had been on norepinephrine, started 04/02 discontinued 04/03 Klebsiella pneumonia * On ceftriaxone. Started on pip/tazo on 04/03. Abx through 04/09. Can change to oral. * RLL on CXR from 04/02 Encephalopathy * per discussion with dtr on 04/08, pt was previously independent until January, when he fell. Though he had been doing well until recently. His mental status has not changed during this admission. * head CT negative. * LP ordered. * EEG shows moderate diffuse encephalopathy * Started on ampicillin, CTX, vancomycin, azithromycin and dexamethasone. Lumbar puncture was unable to be performed due to arthritis. As I do not feel the patient actually has meningitis I am going to discontinue the antibiotics but I will continue with the acyclovir. * Patient may just be treated empirically for possible encephalitis though concerned that patient may have some underlying dementia and with his recent illness and septic shock he may just be very slow to recover. Acute hypercapnic respiratory failure * resolved. ABG showed respiratory acidosis * 2/2 pneumonia * had been on BiPAP, now on room air. AUGUSTIN * resolved Chronic conditions: * Dementia. complicates care and recovery. Per dtr, pt was previously independent. * CAD s/p stenting in 2020-Cont asa and statin * Hypertension-Patient presently hypotensive, continue IVF and hold home antihypertensives * GERD Continue PPI * Hx afib per previous documentation Hold home meds 2/2 hypotension Does not seem to be on any anticoagulation DVT ppx: Heparin subcu Charges/Coding Visit Charges Inpatient E&M: 03545 Subs Hosp L2
[2024-04-11] MEDS: Lactobacillis Acidophilus 1 CAP PO ×2 (09:44→21:35)
[2024-04-11] MEDS: Aspirin E.C. 81 MG Tablet PO (09:44)
[2024-04-11] MEDS: Lisinopril 20 MG Tablet PO (09:45)
[2024-04-11] MEDS: Folic Acid 1 MG Tablet PO (09:45)
[2024-04-11] MEDS: NIFEdipine 30 MG Tablet PO (09:45)
[2024-04-11] MEDS: Senna/Docusate Sodium 1 Tablet 2 TABLET PO ×2 (09:45→21:37)
[2024-04-11] MEDS: Pantoprazole Sodium 20 MG Tablet PO (09:47)
[2024-04-11 10:40] LABS: Vitamin B12 1961 pg/mL (211-911)
--- NOTE | 2024-04-11 13:49 | CASEMGMT ---
DEVANTE called patient's daughter Urban. DEVANTE asked Urban if she has made a decision on where she would like patient to go at discharge. Urban decided on [facility]. Urban said she was at [facility] yesterday and patient is still not himself. DEVANTE told her physician said he would likely keep patient through the weekend. Urban asked if she could make the decision on Sunday. DEVANTE told Urban that SW needs an answer today so the facilities can be notified and patient's pre-cert can be initiated with insurance. She verbalized understanding. DEVANTE asked [facility] to start pre-cert. DEVANTE did tell Urban that if insurance denies patient he will have to go on his pending Medicaid. DEVANTE explained that someone from [facility] will call her to conduct a financial assessment. Urban verbalized understanding. Plan: d/c to [facility] pending pre-cert.
--- NOTE | 2024-04-11 13:53 | CASEMGMT ---
Discharge Planning CC updates that patient will not return. Lillian Hollis DC Planning Asst.
--- NOTE | 2024-04-11 13:56 | CASEMGMT ---
Discharge Planning Updates sent to [facility] via [facility]. Lillian Hollis DC Planning Asst.
[2024-04-11] MEDS: Potassium Chloride Oral Tablet 20 MEQ 40 MEQ PO (14:30)
[2024-04-11] MEDS: Atorvastatin Calcium 20 MG Tablet PO (21:35)
[2024-04-12] VITALS (7 sets, daily range): BP systolic 95–122; BP diastolic 57–83; PULSE 62–78; RESP 16–20; TEMP 35.8–36.6; O2SAT 91–97
[2024-04-12] MEDS: Dextrose 5%-Water (1000mL Bag) 1,000 ML 60 ML IV ×2 (01:15→23:18)
[2024-04-12] MEDS: DEXTROSE 5% IV ×3 (05:47→21:41)
[2024-04-12] MEDS: WATER IV ×3 (05:47→21:41)
[2024-04-12] MEDS: ACYCLOVIR IV ×3 (05:47→21:41)
[2024-04-12 05:56] LABS: Absolute Lymphocyte Count 1.46 X10^3/uL (0.83-4.51); Absolute Neutrophil Count 3.4 X10^3/uL (2.0-7.7); Eosinophil# 0.05 X10^3/uL; Hematocrit 27.3 % (40-54); Hemoglobin 8.9 g/dL (13.0-16.5); Lymphocyte # 1.46 X10^3/ul (0.83-4.51); Mean Corp Hgb Conc 32.6 g/dL (32-36); Mean Corpuscular Hgb 30.3 pg (27.0-32.0); Mean Corpuscular Volume 92.9 fL (80-94); Mean Platelet Vol. 9.5 fl (6.2-12.0); Monocyte# 0.29 X10^3/uL; Monocyte% 5.6 % (0-10); NRBC Flagged by Analyzer 0 % (0-5); Neutrophil # 3.39 X10^3/uL (2.7-7.7); Neutrophil % 64.8 % (47-70); Platelet Count 242 K/mm3 (150-450); RBC Distribution Width CV 15.9 % (11.6-14.6); RBC Distribution Width SD 53.3 fl (35.1-43.9); Red Blood Count 2.94 M/mm3 (4.6-6.2); White Blood Count 5.2 K/mm3 (4.4-11.0)
[2024-04-12 06:35] LABS: Anion Gap 7 (5-15); BUN 19 mg/dL (7-18); BUN/Creat Ratio 24.8 RATIO (10-20); Calcium,Total 8.3 mg/dL (8.5-10.1); Chloride 113 mmol/L (98-107); Creatinine, Serum 0.77 mg/dL (0.70-1.30); EST Glomerular Filtration Rate 104 mL/min (>60); Est Glom Filt Rate - Afr Amer 126 mL/min (>60); Estimated Creatinine Clearance 83.41 ml/min; Glucose 85 mg/dL (74-106); Potassium 3.6 mmol/L (3.5-5.1); Sodium Level 142 mmol/L (136-145)
[2024-04-12] MEDS: Ipratropium/Albuterol Sulfate 3 ML AMPUL.NEB INHALATION ×3 (06:59→19:38)
[2024-04-12] MEDS: Senna/Docusate Sodium 1 Tablet 2 TABLET PO ×2 (08:19→21:42)
[2024-04-12] MEDS: Aspirin E.C. 81 MG Tablet PO (08:19)
[2024-04-12] MEDS: Pantoprazole Sodium 20 MG Tablet PO (08:20)
[2024-04-12] MEDS: Ferrous Sulfate 325 MG Tablet PO (08:20)
[2024-04-12] MEDS: Folic Acid 1 MG Tablet PO (08:20)
[2024-04-12] MEDS: guaiFENesin 1,200 MG Tablet 1200 MG PO (08:20)
[2024-04-12] MEDS: Lactobacillis Acidophilus 1 CAP PO ×2 (08:20→21:42)
[2024-04-12] MEDS: NIFEdipine 30 MG Tablet PO (08:21)
[2024-04-12] MEDS: Ensure Plus High Protein 120 ML LIQUID PO (08:21)
[2024-04-12] MEDS: Cyanocobalamin 500 MCG Tablet 1000 MCG PO (08:21)
--- NOTE | 2024-04-12 12:31 | PN.HOSP_ITS ---
Reason for Visit Reason for Visit: Diagnoses Pneumonia, unspecified organism (04/02/24) Acute respiratory failure with hypercapnia (04/02/24) Respiratory failure, unspecified, unspecified whether with hypoxia or hypercapnia (04/02/24) Hypoxemia (04/02/24) Altered mental status, unspecified (04/02/24) Personal history of other diseases of the respiratory system (04/02/24) Subjective Subjective Much more alert today. Objective Data Objective Data Vital Signs: Vital Signs Temp Pulse Resp BP Pulse Ox O2 Del Method O2 Flow Rate 36.6 C 69 16 103/57 L 93 Room Air 3 04/12/24 08:15 04/12/24 08:15 04/12/24 08:15 04/12/24 08:15 04/12/24 08:15 04/12/24 08:15 04/06/24 07:09 FiO2 21 04/08/24 01:47 Oxygen Flow Rate (L/min) 3 Oxygen Delivery Method Room Air Weight: 94.3 kg Body Mass Index (BMI) 31.6 Intake & Output: Intake and Output for Last 24 Hours 04/10/24 04/11/24 04/12/24 23:59 23:59 23:59 Intake Total 1827.4 / 1827.4 3001.8 / 3001.8 680.7 / 680.7 Output Total 875 / 875 1450 / 1450 200 / 200 Balance 952.4 / 952.4 1551.8 / 1551.8 480.7 / 480.7 Medical Nutrition Assessment Dietitian: Malnutrition Criteria Met Start: 04/04/24 09:22 Freq: Status: Active Protocol: Document 04/12/24 11:51 RMA (Rec: 04/12/24 11:52 RMA [id number]) Nutrition Malnutrition Evidence of Malnutrition Exists Yes Malnutrition (severe): Chronic Evidenced By Suboptimal Energy Intake ( Severe),Weight Loss (Severe) Intake Problem Inadequate Oral Intake Etiology related to swallowing difficulty Signs/Symptoms as evidenced by PO less than 50% meals and need for pureed food texture Status Active Problem Clinical Problem Acute Disease or Injury Related Malnutrition Etiology Severe protein-calorie malnutrition in the context of chronic disease related to swallowing difficulty and inadequate oral/energy intake Signs/Symptoms as evidenced by oral intake meeting <50% of estimated nutritional needs and ~7.3% unintentional wt loss in past 1-2 months Status Active Problem Recommendation Dietitian Recommendations/Changes Will continue liberal Regular diet w/ consistency per SPAR MACHINE OPERATOR to try to optimize oral intakes d/t signs and symptoms of malnutrition. Will d/c 120mL ensure plus high protein 4x daily with medpass, pt is refusing. PO magic cup with lunch and dinner for increased nutrition if consumed. Ensure compact w/ breakfast as tolerated. Consider eneteral nutrition support if PO remains poor and inadequate. Lab / Micro Data 04/12/24 05:29 04/12/24 05:29 Labs: Laboratory Results - last 24 hr 04/12/24 05:29: WBC 5.2, RBC 2.94 L, Hgb 8.9 L, Hct 27.3 L, MCV 92.9, MCH 30.3, MCHC 32.6, RDW Std Deviation 53.3 H, RDW Coeff of Sophie 15.9 H, Plt Count 242, MPV 9.5, Immature Gran % (Auto) 0.600, Neut % (Auto) 64.8, Lymph % (Auto) 28.0, [place] % (Auto) 5.6, Eos % (Auto) 1.0, Baso % (Auto) 0.0, Absolute Neuts (auto) 3.4, Absolute Lymphs (auto) 1.46, Nucleated RBC % 0, Sodium 142, Potassium 3.6, C hloride 113 H, Carbon Dioxide 22.0, Anion Gap 7, BUN 19 H, Creatinine 0.77, Estim Creat Clear Calc 83.41, Est GFR (MDRD) Af Amer 126, Est GFR (MDRD) Non-Af 104, BUN/Creatinine Ratio 24.8 H, Glucose 85, Calcium 8.3 L Micro: Microbiology 04/02/24 17:20 Blood Culture (Wb) - Right Wrist Blood Culture - Final No growth in 5 days. 04/02/24 Unknown Blood Culture (Wb) - Anticubital Left Blood Culture - Final No growth in 5 days. 04/03/24 18:30 Sputum, Induced/Lukens Gram Stain - Final 04/03/24 18:30 Sputum, Induced/Lukens Respiratory Culture - Final Klebsiella pneumoniae sp pneum 04/02/24 12:25 Urine, Catheterized Urine Culture - Final Presumptive E. coli 04/02/24 21:28 Mucosa - Nasopharyngeal Respiratory Panel (PCR) - Final 04/02/24 21:28 Mucosa - Nasopharyngeal SARS-CoV-2, Influenza & RSV (PCR) - Final 04/02/24 12:25 Urine Catheter - Pham Legionella Antigen - Final 04/02/24 12:25 Urine Catheter - Pham Streptococcus pneumoniae Antigen (M - Final Rhythm Strip Rhythm Strip: Sinus Rhythm Rate: 67 Ectopy: None Physical Exam Const alert and no apparent distress Constitutional Narrative: Much more alert today. Establishing eye contact. More interactive. Though still confused. HEENT head/scalp atraumatic and moist oral mucous membranes Resp normal respiratory effort, no retractions, no use of accessory muscles and clear to auscultation bilaterally Cardio regular rate and S1 normal heart sound Neuro Sensorium / Orientation: awake and alert Assessment & Plan Assessment/Plan (1) History of COPD: (2) Acute alteration in mental status: PLAN: Plan Septic shock * POA. Now resolved * 2/2 pneumonia * had been on norepinephrine, started 04/02 discontinued 04/03 Klebsiella pneumonia * On ceftriaxone. Started on pip/tazo on 04/03. Abx through 04/09. Can change to oral. * RLL on CXR from 04/02 Encephalopathy * Overall improved * Unclear with the patient's actual baseline though per discussion with dtr on 04/08, pt was previously independent until January, when he fell. Though he had been doing well until recently. His mental status has not changed during this admission. I am inclined to think that patient may have not been as completely independent as she may suggest given his overall slow recovery. Patient is on acyclovir and which is getting better though I am not truly convinced that this was encephalitis. However, I would treat him empirically for total 14 days with acyclovir. I feel that with the patient is medically ready for discharge that that could be switched over to oral. * Testing: head CT negative. LP unable to be completed due to arthritis, EEG shows moderate diffuse encephalopathy Acute hypercapnic respiratory failure * resolved. ABG showed respiratory acidosis * 2/2 pneumonia * had been on BiPAP, now on room air. AUGUSTIN * resolved Chronic conditions: * Dementia. complicates care and recovery. Per dtr, pt was previously independent. * CAD s/p stenting in 2020-Cont asa and statin * Hypertension-Patient presently hypotensive, continue IVF and hold home antihypertensives * GERD Continue PPI * Hx afib per previous documentation Hold home meds 2/2 hypotension Does not seem to be on any anticoagulation DVT ppx: Heparin subcu Disposition: To be determined. Previous discussion with the patient's daughter I told her that we would monitor him over the weekend and if improved or status quo, then he would can be discharged next week. Charges/Coding Visit Charges Inpatient E&M: 11313 Subs Hosp L2
[2024-04-12] MEDS: Atorvastatin Calcium 20 MG Tablet PO (21:42)
[2024-04-12] MEDS: 0.9% Saline Lock 10 ML Syringe IV (23:17)
[2024-04-13] VITALS (7 sets, daily range): BP systolic 91–116; BP diastolic 53–79; PULSE 67–85; RESP 16–24; TEMP 36.3–36.6; O2SAT 92–97; BMI 31.7
[2024-04-13] MEDS: WATER IV ×3 (05:34→22:10)
[2024-04-13] MEDS: DEXTROSE 5% IV ×3 (05:34→22:10)
[2024-04-13] MEDS: ACYCLOVIR IV ×3 (05:34→22:10)
[2024-04-13] MEDS: Menthol/Lanolin/Calamine/Znox 113 GM Tube 1 APPLIC TOPICAL ×3 (05:34→22:13)
[2024-04-13] MEDS: Ipratropium/Albuterol Sulfate 3 ML AMPUL.NEB INHALATION ×2 (06:53→19:27)
[2024-04-13 07:53] LABS: Absolute Lymphocyte Count 1.49 X10^3/uL (0.83-4.51); Basophil# 0.01 X10^3/uL; Basophil% 0.1 % (0-1); Eosinophil# 0.11 X10^3/uL; Eosinophils% 1.4 % (0-5); Hematocrit 29.9 % (40-54); Hemoglobin 9.8 g/dL (13.0-16.5); Lymphocyte # 1.49 X10^3/ul (0.83-4.51); Lymphocyte % 18.7 % (19-41); Mean Corp Hgb Conc 32.8 g/dL (32-36); Mean Corpuscular Hgb 30.7 pg (27.0-32.0); Mean Corpuscular Volume 93.7 fL (80-94); Mean Platelet Vol. 9.5 fl (6.2-12.0); Monocyte# 0.32 X10^3/uL; NRBC Flagged by Analyzer 0 % (0-5); Neutrophil # 5.98 X10^3/uL (2.7-7.7); Neutrophil % 75.3 % (47-70); Platelet Count 266 K/mm3 (150-450); RBC Distribution Width CV 16.1 % (11.6-14.6); RBC Distribution Width SD 54.6 fl (35.1-43.9); Red Blood Count 3.19 M/mm3 (4.6-6.2)
--- NOTE | 2024-04-13 08:03 | PN.HOSP_ITS ---
Reason for Visit Reason for Visit: Diagnoses Pneumonia, unspecified organism (04/02/24) Acute respiratory failure with hypercapnia (04/02/24) Respiratory failure, unspecified, unspecified whether with hypoxia or hypercapnia (04/02/24) Hypoxemia (04/02/24) Altered mental status, unspecified (04/02/24) Personal history of other diseases of the respiratory system (04/02/24) Subjective Subjective Confused. Objective Data Objective Data Vital Signs: Vital Signs Temp Pulse Resp BP Pulse Ox O2 Del Method O2 Flow Rate 36.3 C L 67 18 107/53 L 95 Room Air 3 04/13/24 03:32 04/13/24 03:32 04/13/24 03:32 04/13/24 03:32 04/13/24 03:32 04/13/24 03:32 04/06/24 07:09 FiO2 21 04/08/24 01:47 Oxygen Flow Rate (L/min) 3 Oxygen Delivery Method Room Air Weight: 94.6 kg Body Mass Index (BMI) 31.7 Intake & Output: Intake and Output for Last 24 Hours 04/11/24 04/12/24 04/13/24 23:59 23:59 23:59 Intake Total 3001.8 / 3001.8 2174.1 / 2174.1 739.7 / 739.7 Output Total 1450 / 1450 550 / 550 1150 / 1150 Balance 1551.8 / 1551.8 1624.1 / 1624.1 -410.3 / -410.3 Medical Nutrition Assessment Dietitian: Malnutrition Criteria Met Start: 04/04/24 09:22 Freq: Status: Active Protocol: Document 04/12/24 11:51 RMA (Rec: 04/12/24 11:52 RMA [id number]) Nutrition Malnutrition Evidence of Malnutrition Exists Yes Malnutrition (severe): Chronic Evidenced By Suboptimal Energy Intake ( Severe),Weight Loss (Severe) Intake Problem Inadequate Oral Intake Etiology related to swallowing difficulty Signs/Symptoms as evidenced by PO less than 50% meals and need for pureed food texture Status Active Problem Clinical Problem Acute Disease or Injury Related Malnutrition Etiology Severe protein-calorie malnutrition in the context of chronic disease related to swallowing difficulty and inadequate oral/energy intake Signs/Symptoms as evidenced by oral intake meeting <50% of estimated nutritional needs and ~7.3% unintentional wt loss in past 1-2 months Status Active Problem Recommendation Dietitian Recommendations/Changes Will continue liberal Regular diet w/ consistency per JOIST SETTER to try to optimize oral intakes d/t signs and symptoms of malnutrition. Will d/c 120mL ensure plus high protein 4x daily with medpass, pt is refusing. PO magic cup with lunch and dinner for increased nutrition if consumed. Ensure compact w/ breakfast as tolerated. Consider eneteral nutrition support if PO remains poor and inadequate. Lab / Micro Data 04/13/24 07:25 04/13/24 07:25 Labs: Laboratory Results - last 24 hr 04/13/24 07:25: WBC 8.0, RBC 3.19 L, Hgb 9.8 L, Hct 29.9 L, MCV 93.7, MCH 30.7, MCHC 32.8, RDW Std Deviation 54.6 H, RDW Coeff of Sophie 16.1 H, Plt Count 266, MPV 9.5, Immature Gran % (Auto) 0.500, Neut % (Auto) 75.3 H, Lymph % (Auto) 18.7 L, [place] % (Auto) 4.0, Eos % (Auto) 1.4, Baso % (Auto) 0.1, Absolute Neuts (auto) 6.0, Absolute Lymphs (auto) 1.49, Nucleated RBC % 0 Micro: Microbiology 04/02/24 17:20 Blood Culture (Wb) - Right Wrist Blood Culture - Final No growth in 5 days. 04/02/24 Unknown Blood Culture (Wb) - Anticubital Left Blood Culture - Final No growth in 5 days. 04/03/24 18:30 Sputum, Induced/Lukens Gram Stain - Final 04/03/24 18:30 Sputum, Induced/Lukens Respiratory Culture - Final Klebsiella pneumoniae sp pneum 04/02/24 12:25 Urine, Catheterized Urine Culture - Final Presumptive E. coli 04/02/24 21:28 Mucosa - Nasopharyngeal Respiratory Panel (PCR) - Final 04/02/24 21:28 Mucosa - Nasopharyngeal SARS-CoV-2, Influenza & RSV (PCR) - Final 04/02/24 12:25 Urine Catheter - Pham Legionella Antigen - Final 04/02/24 12:25 Urine Catheter - Pham Streptococcus pneumoniae Antigen (M - Final Rhythm Strip Rhythm Strip: Sinus Rhythm Rate: 67 Ectopy: None Physical Exam Const Constitutional Narrative: Patient still confused but working with speech therapy. Resp normal respiratory effort, no retractions, no use of accessory muscles and clear to auscultation bilaterally Cardio regular rate, regular rhythm, S1 normal heart sound and S2 normal heart sound GI normal to inspection, nondistended, normoactive bowel sounds, soft to palpation, non-tender and non-distended Extremity normal to inspection and full ROM Neuro Sensorium / Orientation: awake Assessment & Plan Assessment/Plan (1) History of COPD: (2) Acute alteration in mental status: PLAN: Plan Septic shock * POA. Now resolved * 2/2 pneumonia * had been on norepinephrine, started 04/02 discontinued 04/03 Klebsiella pneumonia * On ceftriaxone. Started on pip/tazo on 04/03. Completed abx. * RLL on CXR from 04/02 Encephalopathy * Overall improved, though he is still overall very confused. * Unclear with the patient's actual baseline though per discussion with dtr on 04/08, pt was previously independent until January, when he fell. Though he had been doing well until recently. His mental status has not changed during this admission. I am inclined to think that patient may have not been as completely independent as she may suggest given his overall slow recovery. Patient is on acyclovir and which is getting better though I am not truly convinced that this was encephalitis. However, I would treat him empirically for total 14 days with acyclovir. I feel that with the patient is medically ready for discharge that that could be switched over to oral. * Testing: head CT negative. LP unable to be completed due to arthritis, EEG shows moderate diffuse encephalopathy * TSH, B12 and folate were within normal limits. Acute hypercapnic respiratory failure * resolved. ABG showed respiratory acidosis * 2/2 pneumonia * had been on BiPAP, now on room air. AUGUSTIN * resolved Chronic conditions: * Dementia. complicates care and recovery. Per dtr, pt was previously independent. * CAD s/p stenting in 2020-Cont asa and statin * Hypertension-Patient presently hypotensive, continue IVF and hold home antihypertensives * GERD Continue PPI * Hx afib per previous documentation Hold home meds 2/2 hypotension Does not seem to be on any anticoagulation DVT ppx: Heparin subcu Disposition: If patient remains stable, insurance referral has been sent for [facility]. Patient remained stable he would likely be medically ready on the . Discussed with the patient's daughter, Libia, over the phone and updated her. Charges/Coding Visit Charges Inpatient E&M: 11888 Subs Hosp L2
[2024-04-13 08:13] LABS: Anion Gap 6 (5-15); BUN 16 mg/dL (7-18); BUN/Creat Ratio 18.1 RATIO (10-20); Calcium,Total 8.3 mg/dL (8.5-10.1); Chloride 110 mmol/L (98-107); Creatinine, Serum 0.89 mg/dL (0.70-1.30); EST Glomerular Filtration Rate 88 mL/min (>60); Est Glom Filt Rate - Afr Amer 106 mL/min (>60); Estimated Creatinine Clearance 75.09 ml/min; Glucose 89 mg/dL (74-106); Potassium 3.5 mmol/L (3.5-5.1); Sodium Level 139 mmol/L (136-145)
[2024-04-13] MEDS: Folic Acid 1 MG Tablet PO (09:39)
[2024-04-13] MEDS: Lactobacillis Acidophilus 1 CAP PO ×2 (09:39→22:12)
[2024-04-13] MEDS: Senna/Docusate Sodium 1 Tablet 2 TABLET PO ×2 (09:39→22:12)
[2024-04-13] MEDS: Cyanocobalamin 500 MCG Tablet 1000 MCG PO (09:39)
[2024-04-13] MEDS: guaiFENesin 1,200 MG Tablet 1200 MG PO (09:39)
[2024-04-13] MEDS: Aspirin E.C. 81 MG Tablet PO (09:39)
[2024-04-13] MEDS: NIFEdipine 30 MG Tablet PO (09:40)
[2024-04-13] MEDS: Ferrous Sulfate 325 MG Tablet PO (09:40)
[2024-04-13] MEDS: Pantoprazole Sodium 20 MG Tablet PO (09:40)
[2024-04-13] MEDS: Albuterol 2.5 MG/3 ML VIAL.NEB. INHALATION (15:21)
[2024-04-13] MEDS: Dextrose 5%-Water (1000mL Bag) 1,000 ML 60 ML IV (18:42)
[2024-04-13] MEDS: Atorvastatin Calcium 20 MG Tablet PO (22:12)
[2024-04-14 04:00] VITALS: BP 121/65; PULSE 80; RESP 18; TEMP 36.7; O2SAT 98
[2024-04-14 04:44] VITALS: BMI 31.6
[2024-04-14] MEDS: ACYCLOVIR IV (05:32)
[2024-04-14] MEDS: WATER IV (05:32)
[2024-04-14] MEDS: DEXTROSE 5% IV (05:32)
[2024-04-14] MEDS: Menthol/Lanolin/Calamine/Znox 113 GM Tube 1 APPLIC TOPICAL (05:33)
[2024-04-14 06:55] VITALS: PULSE 82; RESP 18
[2024-04-14] MEDS: Ipratropium/Albuterol Sulfate 3 ML AMPUL.NEB INHALATION (06:55)
--- NOTE | 2024-04-14 07:11 | PN.HOSP_ITS ---
Reason for Visit Reason for Visit: Diagnoses Pneumonia, unspecified organism (04/02/24) Acute respiratory failure with hypercapnia (04/02/24) Respiratory failure, unspecified, unspecified whether with hypoxia or hypercapnia (04/02/24) Hypoxemia (04/02/24) Altered mental status, unspecified (04/02/24) Personal history of other diseases of the respiratory system (04/02/24) Subjective Subjective Awake and working with therapy. Objective Data Objective Data Vital Signs: Vital Signs Temp Pulse Resp BP Pulse Ox O2 Del Method O2 Flow Rate 36.7 C 82 18 121/65 H 98 Room Air 3 04/14/24 04:00 04/14/24 06:55 04/14/24 06:55 04/14/24 04:00 04/14/24 04:00 04/14/24 04:01 04/06/24 07:09 FiO2 21 04/08/24 01:47 Oxygen Flow Rate (L/min) 3 Oxygen Delivery Method Room Air Weight: 94.2 kg Body Mass Index (BMI) 31.6 Intake & Output: Intake and Output for Last 24 Hours 04/12/24 04/13/24 04/14/24 23:59 23:59 23:59 Intake Total 2174.1 / 2174.1 2594.1 / 2594.1 377 / 377 Output Total 550 / 550 1950 / 1950 1000 / 1000 Balance 1624.1 / 1624.1 644.1 / 644.1 -623 / -623 Medical Nutrition Assessment Dietitian: Malnutrition Criteria Met Start: 04/04/24 09:22 Freq: Status: Active Protocol: Document 04/12/24 11:51 RMA (Rec: 04/12/24 11:52 RMA [id number]) Nutrition Malnutrition Evidence of Malnutrition Exists Yes Malnutrition (severe): Chronic Evidenced By Suboptimal Energy Intake ( Severe),Weight Loss (Severe) Intake Problem Inadequate Oral Intake Etiology related to swallowing difficulty Signs/Symptoms as evidenced by PO less than 50% meals and need for pureed food texture Status Active Problem Clinical Problem Acute Disease or Injury Related Malnutrition Etiology Severe protein-calorie malnutrition in the context of chronic disease related to swallowing difficulty and inadequate oral/energy intake Signs/Symptoms as evidenced by oral intake meeting <50% of estimated nutritional needs and ~7.3% unintentional wt loss in past 1-2 months Status Active Problem Recommendation Dietitian Recommendations/Changes Will continue liberal Regular diet w/ consistency per ADULT AND PEDIATRIC NEUROLOGIST to try to optimize oral intakes d/t signs and symptoms of malnutrition. Will d/c 120mL ensure plus high protein 4x daily with medpass, pt is refusing. PO magic cup with lunch and dinner for increased nutrition if consumed. Ensure compact w/ breakfast as tolerated. Consider eneteral nutrition support if PO remains poor and inadequate. Lab / Micro Data 04/13/24 07:25 04/13/24 07:25 Labs: Laboratory Results - last 24 hr 04/13/24 07:25: WBC 8.0, RBC 3.19 L, Hgb 9.8 L, Hct 29.9 L, MCV 93.7, MCH 30.7, MCHC 32.8, RDW Std Deviation 54.6 H, RDW Coeff of Sophie 16.1 H, Plt Count 266, MPV 9.5, Immature Gran % (Auto) 0.500, Neut % (Auto) 75.3 H, Lymph % (Auto) 18.7 L, Mills % (Auto) 4.0, Eos % (Auto) 1.4, Baso % (Auto) 0.1, Absolute Neuts (auto) 6.0, Absolute Lymphs (auto) 1.49, Nucleated RBC % 0, Sodium 139, Potassium 3.5, Chloride 110 H, Carbon Dioxide 23.0, Anion Gap 6, BUN 16, Creatinine 0.89, Estim Creat Clear Calc 75.09, Est GFR (MDRD) Af Amer 106, Est GFR (MDRD) Non-Af 88, BUN/Creatinine Ratio 18.1, Glucose 89, Calcium 8.3 L Micro: Microbiology 04/02/24 17:20 Blood Culture (Wb) - Right Wrist Blood Culture - Final No growth in 5 days. 04/02/24 Unknown Blood Culture (Wb) - Anticubital Left Blood Culture - Final No growth in 5 days. 04/03/24 18:30 Sputum, Induced/Lukens Gram Stain - Final 04/03/24 18:30 Sputum, Induced/Lukens Respiratory Culture - Final Klebsiella pneumoniae sp pneum 04/02/24 12:25 Urine, Catheterized Urine Culture - Final Presumptive E. coli 04/02/24 21:28 Mucosa - Nasopharyngeal Respiratory Panel (PCR) - Final 04/02/24 21:28 Mucosa - Nasopharyngeal SARS-CoV-2, Influenza & RSV (PCR) - Final 04/02/24 12:25 Urine Catheter - Pham Legionella Antigen - Final 04/02/24 12:25 Urine Catheter - Pham Streptococcus pneumoniae Antigen (M - Final Rhythm Strip Rhythm Strip: Sinus Rhythm Rate: 67 Ectopy: None Physical Exam Const alert and no apparent distress Orientation / Consciousness: confused HEENT head/scalp atraumatic and moist oral mucous membranes Resp normal respiratory effort, no retractions, no use of accessory muscles and clear to auscultation bilaterally Cardio regular rate, regular rhythm, S1 normal heart sound and S2 normal heart sound GI normal to inspection, nondistended, normoactive bowel sounds, soft to palpation, non-tender and non-distended Neuro Sensorium / Orientation: awake and alert Assessment & Plan Assessment/Plan (1) History of COPD: (2) Acute alteration in mental status: PLAN: Plan Septic shock * POA. Now resolved * 2/2 pneumonia * had been on norepinephrine, started 04/02 discontinued 04/03 Klebsiella pneumonia * On ceftriaxone. Started on pip/tazo on 04/03. Completed abx. * RLL on CXR from 04/02 Encephalopathy * Overall improved, though he is still overall very confused. * Unclear with the patient's actual baseline though per discussion with dtr on 04/08, pt was previously independent until January, when he fell. Though he had been doing well until recently. His mental status has not changed during this admission. I am inclined to think that patient may have not been as completely independent as she may suggest given his overall slow recovery. Patient is on acyclovir and which is getting better though I am not truly convinced that this was encephalitis. However, I would treat him empirically for total 14 days with acyclovir. I feel that with the patient is medically ready for discharge that that could be switched over to oral. * Testing: head CT negative. LP unable to be completed due to arthritis, EEG shows moderate diffuse encephalopathy * TSH, B12 and folate were within normal limits. Acute hypercapnic respiratory failure * resolved. ABG showed respiratory acidosis * 2/2 pneumonia * had been on BiPAP, now on room air. AUGUSTIN * resolved Chronic conditions: * Dementia. complicates care and recovery. Per dtr, pt was previously independent. * CAD s/p stenting in 2020-Cont asa and statin * Hypertension-Patient presently hypotensive, continue IVF and hold home antihypertensives * GERD Continue PPI * Hx afib per previous documentation Hold home meds 2/2 hypotension Does not seem to be on any anticoagulation DVT ppx: Heparin subcu Disposition: to SNF today.
--- NOTE | 2024-04-14 09:32 | CASEMGMT ---
Addendum entered by Jo Ann Rocha 04/14/24 10:52: Patient's pre-cert is still good. SW notified physician. Jo Ann COTTON Original Note: SW is waiting to hear back from [facility] to see if patient's pre-cert is still good. Jo Ann COTTON
--- NOTE | 2024-04-14 09:47 | CASEMGMT ---
Discharge Planning Updates sent to [facility] via [employer]. Lillian Hollis DC Planning Asst.
[2024-04-14 09:58] VITALS: BP 143/81; PULSE 85; RESP 18; TEMP 36.6; O2SAT 97
[2024-04-14] MEDS: NIFEdipine 30 MG Tablet PO (10:07)
[2024-04-14] MEDS: Pantoprazole Sodium 20 MG Tablet PO (10:07)
[2024-04-14] MEDS: Lisinopril 20 MG Tablet PO (10:07)
[2024-04-14] MEDS: Lactobacillis Acidophilus 1 CAP PO (10:07)
[2024-04-14] MEDS: Folic Acid 1 MG Tablet PO (10:08)
[2024-04-14] MEDS: Senna/Docusate Sodium 1 Tablet 2 TABLET PO (10:08)
[2024-04-14] MEDS: Aspirin E.C. 81 MG Tablet PO (10:08)
[2024-04-14] MEDS: Cyanocobalamin 500 MCG Tablet 1000 MCG PO (10:08)
[2024-04-14] MEDS: Ferrous Sulfate 325 MG Tablet PO (10:09)
--- NOTE | 2024-04-14 11:49 | TREXTCAR_ITS ---
Diet Diet Order/Speech Therapy: 04/07/24 13:33 Diet: Regular - General Food consistency:: Pureed Liquid Consistency:: Regular/Thin Type of Dietary Supplement:: Magic Cup w/ L and D Is pt able to select menu?: No Diet Comments: FOOD/DRINK IF FULLY ALERT, small bites/sips; ensure compact w/ breakfast Routine Orders/Code Status Code Status: DNRCC-A (no intubation) Wound(s) Coccyx: Wound Type: Pressure Injury Therapies Physical Therapy: Eval and Treat Occupational Therapy: Eval and Treat Speech Therapy: Eval and Treat Problem/Diagnosis (1) History of COPD: Status: Chronic Code(s): Z87.09 - Personal history of other diseases of the respiratory system (2) Acute alteration in mental status: Status: Acute Code(s): R41.82 - Altered mental status, unspecified Plan Septic shock * POA. Now resolved * 2/2 pneumonia * had been on norepinephrine, started 04/02 discontinued 04/03 Klebsiella pneumonia * On ceftriaxone. Started on pip/tazo on 04/03. Completed abx. * RLL on CXR from 04/02 Encephalopathy * Overall improved, though he is still overall very confused. * Unclear with the patient's actual baseline though per discussion with dtr on 04/08, pt was previously independent until January, when he fell. Though he had been doing well until recently. His mental status has not changed during this admission. I am inclined to think that patient may have not been as completely independent as she may suggest given his overall slow recovery. Patient is on acyclovir and which is getting better though I am not truly convinced that this was encephalitis. However, I would treat him empirically for total 14 days with acyclovir. I feel that with the patient is medically ready for discharge that that could be switched over to oral. * Testing: head CT negative. LP unable to be completed due to arthritis, EEG shows moderate diffuse encephalopathy * TSH, B12 and folate were within normal limits. Acute hypercapnic respiratory failure * resolved. ABG showed respiratory acidosis * 2/2 pneumonia * had been on BiPAP, now on room air. AUGUSTIN * resolved Chronic conditions: * Dementia. complicates care and recovery. Per dtr, pt was previously independent. * CAD s/p stenting in 2020-Cont asa and statin * Hypertension-Patient presently hypotensive, continue IVF and hold home ant ihypertensives * GERD Continue PPI * Hx afib per previous documentation Hold home meds 2/2 hypotension Does not seem to be on any anticoagulation DVT ppx: Heparin subcu Disposition: to SNF today. Allergies/Procedures Done in Hospital Allergies cat dander (cats) Allergy (Mild, Verified 02/26/24 01:05) Rash Procedures: None Type of Care/Length of Stay Estimated LOS: More Than 30 Days Type of Care Needed: Intermediate Rehab Potential: Poor Prognosis: Fair Additional Orders/Day of Discharge Day of Discharge: 04/08/24 Dietary and Speech Recommendations Dietitian Recommendations/Changes: Will continue liberal Regular diet w/ consistency per DISPLAY MECHANIC to try to optimize oral intakes d/t signs and symptoms of malnutrition. Will d/c 120mL ensure plus high protein 4x daily with medpass, pt is refusing. PO magic cup with lunch and dinner for increased nutrition if consumed. Ensure compact w/ breakfast as tolerated. Consider eneteral nutrition support if PO remains poor and inadequate. Discharge Plan Admission Admit Date/Time: 04/02/24 19:37 Primary Reason for Your Visit: Pneumonia Attending Provider: Pan Carbone Primary Care Provider: Jasson England Consulting Providers: Mary Carmen Gardner; Myles Perdomo; Andres Crowell; Krystal Jett; Kristen England; Colleen Astorga; Osvaldo Garcia; Balwinder Barajas; Mckayla Perdomo; CRISTIANA PRINCE; Ana Maria Malave; Alix Roman; Jamir Burger; Janina Lundberg Discharge Orders/Prescriptions Prescriptions: New ciprofloxacin HCl [Cipro] 500 mg tablet 500 mg PO BID Qty: 4 0RF acyclovir 200 mg/5 mL suspension 700 mg PO TID 8 Days Qty: 420 0RF menthol-zinc oxide [Calmoseptine] 0.44-20.6 % Ointment 1 applic topical TID Qty: 0 0RF Protocol: *Topical Application Instructions APPLICATION INSTRUCTIONS: apply to buttocks bilat Continued atorvastatin 20 mg tablet 20 mg PO QHS Qty: 90 3RF nifedipine 30 mg tablet extended release 24hr 30 mg PO DAILY Qty: 90 3RF ferrous sulfate 325 mg (65 mg iron) tablet 325 mg PO DAILY Qty: 90 3RF aspirin [Bertin Low Dose Aspirin] 81 mg tablet,delayed release (DR/EC) 81 mg PO DAILY cyanocobalamin (vitamin B-12) 1,000 mcg tablet 1,000 mcg PO DAILY albuterol sulfate 2.5 mg /3 mL (0.083 %) Solution For Nebulization 2.5 mg inhalation Q6H PRN (Reason: SHORTNESS OF BREATH/WHEEZING ) Qty: 0 0RF lisinopril 20 mg Tablet 20 mg PO DAILY Qty: 0 0RF folic acid 1 mg Tablet 1 mg PO DAILYCM Qty: 0 0RF Ensure Plus High Protein 0.08 gram-1.5 kcal/mL Liquid 120 ml PO 4X/DAY Qty: 0 0RF omeprazole 20 mg capsule,delayed release(DR/EC) 20 mg PO DAILY donepezil 10 mg tablet 10 mg PO QHS melatonin [Children's Sleep (melatonin)] 1 mg tablet,chewable 1 mg PO QHS Senna Plus 8.6-50 mg capsule 2 tab-cap PO DAILY PRN (Reason: constipation) Acidophilus Capsule 1 cap PO BID levetiracetam [Keppra] 500 mg tablet 500 mg PO BID acetaminophen 325 mg tablet 650 mg PO Q4H PRN (Reason: fever or pain) bisacodyl 10 mg suppository 10 mg RI DAILY PRN (Reason: constipation) dextrose [Gluco Burst] 40 % gel 1 ea PO PRN PRN (Reason: hypoglycemia) Rx Instructions: until symptoms of low blood sugar are controlled glucagon 1 mg/0.2 mL auto-injector 1 mg subcut PRN PRN (Reason: hypoglycemia) magnesium hydroxide 400 mg/5 mL suspension 30 ml PO DAILY PRN (Reason: constipation) Discontinued tramadol 50 mg tablet 50 mg PO Q4H PRN (Reason: pain) Referrals / Follow Up: Jasson England MD [Primary Care Provider] - Within 2 Weeks Disposition Disposition (needs filled in before D/C Order can be placed[facility]
--- NOTE | 2024-04-14 11:55 | DS.PCM_ITS ---
Providers Date of Admission: 04/02/24 Primary Care Physician: Dr. Jasson England MD Consultations 04/02/24 21:50 Consult: Funeral Assistant / Pulmonary Medicine Routine Consulting Provider: Intensivists/Pulmonary Med Reason for Consult: suspect sepsis, hypotension, levo added EMERGENT Consult: No MD Notified: Yes Date Notified: 04/02/24 Time Notified: 21:50 Method of Notification: Text Reason For Visit: PNA, HYPOXIA, UTI, HYPOTENSION Diagnosis Discharge Diagnosis (1) History of COPD: Status: Chronic Code(s): Z87.09 - Personal history of other diseases of the respiratory system (2) Acute alteration in mental status: Status: Acute Code(s): R41.82 - Altered mental status, unspecified Plan Septic shock * POA. Now resolved * 2/2 pneumonia * had been on norepinephrine, started 04/02 discontinued 04/03 Klebsiella pneumonia * On ceftriaxone. Started on pip/tazo on 04/03. Completed abx. * RLL on CXR from 04/02 Encephalopathy * Overall improved, though he is still overall very confused. * Unclear with the patient's actual baseline though per discussion with dtr on 04/08, pt was previously independent until January, when he fell. Though he had been doing well until recently. His mental status has not changed during this admission. I am inclined to think that patient may have not been as completely independent as she may suggest given his overall slow recovery. Patient is on acyclovir and which is getting better though I am not truly convinced that this was encephalitis. However, I would treat him empirically for total 14 days with acyclovir. I feel that with the patient is medically ready for discharge that that could be switched over to oral. * Testing: head CT negative. LP unable to be completed due to arthritis, EEG shows moderate diffuse encephalopathy * TSH, B12 and folate were within normal limits. Acute hypercapnic respiratory failure * resolved. ABG showed respiratory acidosis * 2/2 pneumonia * had been on BiPAP, now on room air. AUGUSTIN * resolved Chronic conditions: * Dementia. complicates care and recovery. Per dtr, pt was previously independent. * CAD s/p stenting in 2020-Cont asa and statin * Hypertension-Patient presently hypotensive, continue IVF and hold home antihypertensives * GERD Continue PPI * Hx afib per previous documentation Hold home meds 2/2 hypotension Does not seem to be on any anticoagulation DVT ppx: Heparin subcu Disposition: to SNF today. Medications at Discharge Home Medications aspirin 81 mg tablet,delayed release (Bertin Low Dose Aspirin) 81 mg PO DAILY [facility] 08/16/23 atorvastatin 20 mg tablet 20 mg PO QHS CHOLESTEROL #90 tabs 08/16/23 cyanocobalamin (vitamin B-12) 1,000 mcg tablet 1,000 mcg PO DAILY SUPPLEMENT 02/06/24 albuterol sulfate 2.5 mg/3 mL (0.083 %) solution for nebulization 2.5 mg (3 mL) inhalation Q6H PRN SHORTNESS OF BREATH/WHEEZING #0 mL 02/14/24 folic acid 1 mg tablet 1 mg PO DAILYCM #0 tabs 02/14/24 food supplemt, lactose-reduced 0.08 gram-1.5 kcal/mL oral liquid (Ensure Plus High Protein) 120 ml PO 4X/DAY #0 mL 02/14/24 lisinopril 20 mg tablet 20 mg PO DAILY #0 tabs 02/14/24 omeprazole 20 mg capsule,delayed release 20 mg PO DAILY 02/16/24 ferrous sulfate 325 mg (65 mg iron) tablet 325 mg PO DAILY #90 tabs 02/27/24 nifedipine 30 mg tablet,extended release 24 hr 30 mg PO DAILY #90 tabs 02/27/24 Lactobacillus acidophilus (Acidophilus capsule) 1 cap PO BID PROBIOTIC 04/02/24 acetaminophen 325 mg tablet 650 mg PO Q4H PRN fever or pain 04/02/24 bisacodyl 10 mg rectal suppository 10 mg PA DAILY PRN constipation 04/02/24 dextrose 40 % oral gel (Gluco Burst) 1 ea PO PRN PRN hypoglycemia 04/02/24 donepezil 10 mg tablet 10 mg PO QHS DEMENTIA 04/02/24 glucagon 1 mg/0.2 mL subcutaneous auto-injector 1 mg subcut PRN PRN hypoglycemia 04/02/24 levetiracetam 500 mg tablet (Keppra) 500 mg PO BID 04/02/24 magnesium hydroxide 400 mg/5 mL oral suspension 30 ml PO DAILY PRN constipation 04/02/24 melatonin 1 mg chewable tablet (Children's Sleep (melatonin)) 1 mg PO QHS INSOMNIA 04/02/24 sennosides 8.6 mg-docusate sodium 50 mg capsule (Senna Plus) 2 tab-cap PO DAILY PRN constipation 04/02/24 ciprofloxacin HCl 500 mg tablet (Cipro) 500 mg PO BID #4 tabs 04/08/24 acyclovir 200 mg/5 mL oral suspension 700 mg (17.5 mL) PO TID 8 days #420 mL 04/14/24 menthol 0.44 %-zinc oxide 20.6 % topical ointment (Calmoseptine) 1 applic topical TID #0 grams 04/14/24 Hospital Course Operations None Procedures None Summary of Care Provided Minutes Spent on Discharge: 32 Hospital Course: Patient presents with confusion. Patient was found to have a Klebsiella pneumonia which she completed antibiotics, however, his course of hospitalization where he remained confused. Discussed with the patient's daughter saying that he was normally independent up until January and even a couple weeks ago we was in a detention and using a walker but he was much more confused this time. Elected to treat him for possible meningitis encephalitis. An LP was attempted but was unsuccessful due to arthritis. I did discontinue the antibiotics and observe the patient on acyclovir which she overall did better but not as well as what her description of him was before winding up in the nursing homes. So I would like to treat the patient for possible encephalitis so it is really unclear clinically if he ever had it but patient has had some improvement. Would not acyclovir was extruding factor is unclear but he will complete the course of acyclovir for total of 14 days. The patient's mental status is improved he does wake up, he does have stops eye contact and does speak but he is overall very confused and very weak. Did look for reversible causes and none were identified. Medical Records Data Medical Nutrition Assessment Dietitian: Malnutrition Criteria Met Start: 04/04/24 09:22 Freq: Status: Active Protocol: Document 04/12/24 11:51 RMA (Rec: 04/12/24 11:52 RMA [id number]) Nutrition Malnutrition Evidence of Malnutrition Exists Yes Malnutrition (severe): Chronic Evidenced By Suboptimal Energy Intake ( Severe),Weight Loss (Severe) Intake Problem Inadequate Oral Intake Etiology related to swallowing difficulty Signs/Symptoms as evidenced by PO less than 50% meals and need for pureed food texture Status Active Problem Clinical Problem Acute Disease or Injury Related Malnutrition Etiology Severe protein-calorie malnutrition in the context of chronic disease related to swallowing difficulty and inadequate oral/energy intake Signs/Symptoms as evidenced by oral intake meeting <50% of estimated nutritional needs and ~7.3% unintentional wt loss in past 1-2 months Status Active Problem Recommendation Dietitian Recommendations/Changes Will continue liberal Regular diet w/ consistency per COMPUTER METHODS ANALYST to try to optimize oral intakes d/t signs and symptoms of malnutrition. Will d/c 120mL ensure plus high protein 4x daily with medpass, pt is refusing. PO magic cup with lunch and dinner for increased nutrition if consumed. Ensure compact w/ breakfast as tolerated. Consider eneteral nutrition support if PO remains poor and inadequate. Weight / BMI Weight Weight: 94.2 kg Body Mass Index (BMI) 31.6 ABG / Lab / Microbiology Data 04/13/24 07:25 04/13/24 07:25 Microbiology: Microbiology 04/02/24 17:20 Blood Culture (Wb) - Right Wrist Blood Culture - Final No growth in 5 days. 04/02/24 Unknown Blood Culture (Wb) - Anticubital Left Blood Culture - Final No growth in 5 days. 04/03/24 18:30 Sputum, Induced/Lukens Gram Stain - Final 04/03/24 18:30 Sputum, Induced/Lukens Respiratory Culture - Final Klebsiella pneumoniae sp pneum 04/02/24 12:25 Urine, Catheterized Urine Culture - Final Presumptive E. coli 04/02/24 21:28 Mucosa - Nasopharyngeal Respiratory Panel (PCR) - Final 04/02/24 21:28 Mucosa - Nasopharyngeal SARS-CoV-2, Influenza & RSV (PCR) - Final 04/02/24 12:25 Urine Catheter - Pham Legionella Antigen - Final 04/02/24 12:25 Urine Catheter - Pham Streptococcus pneumoniae Antigen (M - Final Meaningful Use Info Meaningful Use Meaningful Use Diagnoses (Choose all that apply): None applicable Ischemic Stroke Statin Dosing Therapy Reference: STATIN DOSE THERAPY REFERENCE: * Patients > 75 years receive moderate or high dose statin therapy. * Patients 75 years or YOUNGER should receive HIGH intensity statin dose unless contraindicated. You will be required to document reason for non-treatment if statin daily dose does not meet guidelines. HIGH DOSE STATIN THERAPY DAILY Atorvastatin > than or = to 40 mg Rosuvastatin > than or = to 20 mg Amlodipine + Atorvastatin > than or = to 2.5/40 mg Ezetimibe + Simvastatin 10/80 mg Simvastatin 80mg Discharge Plan Admission Admit Date/Time: 04/02/24 19:37 Primary Reason for Your Visit: Pneumonia Attending Provider: Pan Carbone Primary Care Provider: Jasson England Consulting Providers: Mary Carmen Gardner; Myles Perdomo; Andres Crowell; Krystal Jett; Kristen England; Colleen Astorga; Osvaldo Garcia; Balwinder Barajas; Mckayla Perdomo; CRISTIANA PRINCE; Ana Maria Malave; Alix Roman; Jamir Burger; Janina Lundberg Discharge Orders/Prescriptions Prescriptions: New ciprofloxacin HCl [Cipro] 500 mg tablet 500 mg PO BID Qty: 4 0RF acyclovir 200 mg/5 mL suspension 700 mg PO TID 8 Days Qty: 420 0RF menthol-zinc oxide [Calmoseptine] 0.44-20.6 % Ointment 1 applic topical TID Qty: 0 0RF Protocol: *Topical Application Instructions APPLICATION INSTRUCTIONS: apply to buttocks bilat Continued atorvastatin 20 mg tablet 20 mg PO QHS Qty: 90 3RF nifedipine 30 mg tablet extended release 24hr 30 mg PO DAILY Qty: 90 3RF ferrous sulfate 325 mg (65 mg iron) tablet 325 mg PO DAILY Qty: 90 3RF aspirin [Bertin Low Dose Aspirin] 81 mg tablet,delayed release (DR/EC) 81 mg PO DAILY cyanocobalamin (vitamin B-12) 1,000 mcg tablet 1,000 mcg PO DAILY albuterol sulfate 2.5 mg /3 mL (0.083 %) Solution For Nebulization 2.5 mg inhalation Q6H PRN (Reason: SHORTNESS OF BREATH/WHEEZING ) Qty: 0 0RF lisinopril 20 mg Tablet 20 mg PO DAILY Qty: 0 0RF folic acid 1 mg Tablet 1 mg PO DAILYCM Qty: 0 0RF Ensure Plus High Protein 0.08 gram-1.5 kcal/mL Liquid 120 ml PO 4X/DAY Qty: 0 0RF omeprazole 20 mg capsule,delayed release(DR/EC) 20 mg PO DAILY donepezil 10 mg tablet 10 mg PO QHS melatonin [Children's Sleep (melatonin)] 1 mg tablet,chewable 1 mg PO QHS Senna Plus 8.6-50 mg capsule 2 tab-cap PO DAILY PRN (Reason: constipation) Acidophilus Capsule 1 cap PO BID levetiracetam [Keppra] 500 mg tablet 500 mg PO BID acetaminophen 325 mg tablet 650 mg PO Q4H PRN (Reason: fever or pain) bisacodyl 10 mg suppository 10 mg PA DAILY PRN (Reason: constipation) dextrose [Gluco Burst] 40 % gel 1 ea PO PRN PRN (Reason: hypoglycemia) Rx Instructions: until symptoms of low blood sugar are controlled glucagon 1 mg/0.2 mL auto-injector 1 mg subcut PRN PRN (Reason: hypoglycemia) magnesium hydroxide 400 mg/5 mL suspension 30 ml PO DAILY PRN (Reason: constipation) Discontinued tramadol 50 mg tablet 50 mg PO Q4H PRN (Reason: pain) Referrals / Follow Up: Jasson England MD [Primary Care Provider] - Within 2 Weeks Disposition Disposition (needs filled in before D/C Order can be placed): [facility] Charges/Coding Visit Charges Inpatient E&M: 23118 Disch Hosp >30min
--- NOTE | 2024-04-14 12:05 | CASEMGMT ---
Patient is ready for discharge to [facility]. Plan: d/c to [facility] under skilled level of care. Physicians will transport patient via cot. Jo Ann COTTON
--- NOTE | 2024-04-14 12:23 | CASEMGMT ---
Discharge Planning Discharge orders, signed med list, and transport time sent to [facility] via [facility]. Physicians will transport patient by cot at 1:30p. Nursing, SW, patient, and his daughter (Urban) updated. Lillian Hollis DC Planning Asst.
[2024-04-14 13:26] VITALS: BP 117/77; PULSE 81; RESP 17; TEMP 36.9; O2SAT 95
== END 2024-04-14 13:40 | disposition skilled nursing facility (03) | DRG 871 ==
LOC: ED 18:42 → ICU 19:42 → PCU 04-06 11:46
PROVIDERS: Internal Medicine; Internal Medicine Critical Care Medicine; Admitting Provider Internal Medicine; Emergency Provider Emergency Medicine; PCP Family Medicine
DX: A41.59 Other Gram-negative sepsis (principal); J96.02 Acute respiratory failure with hypercapnia; J96.01 Acute respiratory failure with hypoxia; R65.21 Severe sepsis with septic shock; G93.41 Metabolic encephalopathy; G04.2 Bacterial meningoencephalitis and meningomyelitis, not elsewhere classified; J15.0 Pneumonia due to Klebsiella pneumoniae; E43 Unspecified severe protein-calorie malnutrition; N17.9 Acute kidney failure, unspecified; J44.0 Chronic obstructive pulmonary disease with (acute) lower respiratory infection; E11.9 Type 2 diabetes mellitus without complications; F02.80 Dementia in other diseases classified elsewhere, unspecified severity, without behavioral disturbance, psychotic disturbance, mood disturbance, and anxiety; G20.A1 Parkinson's disease without dyskinesia, without mention of fluctuations; I10 Essential (primary) hypertension; K21.9 Gastro-esophageal reflux disease without esophagitis; E78.5 Hyperlipidemia, unspecified; I25.10 Atherosclerotic heart disease of native coronary artery without angina pectoris; I95.1 Orthostatic hypotension; Z68.31 Body mass index [BMI] 31.0-31.9, adult; R62.7 Adult failure to thrive; Z66 Do not resuscitate; Z95.5 Presence of coronary angioplasty implant and graft; Z79.84 Long term (current) use of oral hypoglycemic drugs; Z79.899 Other long term (current) drug therapy; Z87.891 Personal history of nicotine dependence
CPT/HCPCS: 31720; 36415; 36600; 51702; 62328; 70450; 71045; 74230; 76770; 80048; 80053; 80076; 80202; 81001; 82140; 82607; 82746; 82803; 83605; 83735; 84443; 84484; 85025; 85610; 85730; 86850; 86900; 86901; 86920; 86922; 87040; 87070; 87077; 87086; 87088; 87186; 87205; 87449; 87631; 87633; 92526; 92610; 92611; 93005; 94002; 94003; 94640; 94762; 95819; 97110; 97162; 97163; 97166; 97530; 97535; 99285; J7030; J7040; J7050; P9016; P9047; A4216; J0696

== ENCOUNTER → 2024-04-02 | Outpatient (REF) | payer SELFPAY ==
[2024-04-02 14:10] LABS: Absolute Neutrophil Count 6.5 X10^3/uL (2.0-7.7); Basophil# 0.02 X10^3/uL; Basophil% 0.2 % (0-1); Eosinophil# 0.07 X10^3/uL; Eosinophils% 0.8 % (0-5); Hematocrit 28.4 % (40-54); Hemoglobin 8.7 g/dL (13.0-16.5); Lymphocyte % 18.9 % (19-41); Mean Corp Hgb Conc 30.6 g/dL (32-36); Mean Corpuscular Hgb 30.3 pg (27.0-32.0); Monocyte# 0.24 X10^3/uL; Monocyte% 2.8 % (0-10); NRBC Flagged by Analyzer 0 % (0-5); Neutrophil % 76.8 % (47-70); Platelet Count 101 K/mm3 (150-450); RBC Distribution Width CV 16.8 % (11.6-14.6); RBC Distribution Width SD 59.3 fl (35.1-43.9); Red Blood Count 2.87 M/mm3 (4.6-6.2); White Blood Count 8.5 K/mm3 (4.4-11.0)
[2024-04-02 14:36] LABS: Anion Gap 5 (5-15); BUN 55 mg/dL (7-18); BUN/Creat Ratio 28.8 RATIO (10-20); Chloride 118 mmol/L (98-107); Creatinine, Serum 1.91 mg/dL (0.70-1.30); EST Glomerular Filtration Rate 36 mL/min (>60); Est Glom Filt Rate - Afr Amer 44 mL/min (>60); Glucose 99 mg/dL (74-106); Potassium 4.8 mmol/L (3.5-5.1); Sodium Level 147 mmol/L (136-145)
== END ==
LOC: OLS.WCC 12:00
PROVIDERS: PCP Family Medicine; Visit Provider Family Medicine
DX: I48.91 Unspecified atrial fibrillation (principal); I50.9 Heart failure, unspecified; J44.9 Chronic obstructive pulmonary disease, unspecified; R53.83 Other fatigue
CPT/HCPCS: 80048; 83880; 85025

== ENCOUNTER 2024-04-24 18:36 | Inpatient (IN) | payer MEDICARE, SELFPAY ==
[2024-04-24] VITALS (10 sets, daily range): BP systolic 105–144; BP diastolic 53–81; PULSE 39–55; RESP 15–18; TEMP 35.7–36.6; O2SAT 93–98; BMI 31.5; BMI 28.1
--- NOTE | 2024-04-24 19:27 | CT_ITS ---
EXAM: CT CHEST WITHOUT INTRAVENOUS CONTRAST CLINICAL INDICATION: sob, altered mental status, abn XR TECHNIQUE: Helically acquired images were obtained of the chest without intravenous contrast. This CT exam was performed using one or more of the following dose reduction techniques: automated exposure control, adjustment of the mA and/or kV according to patient size, and/or use of iterative reconstruction technique. COMPARISON: Chest radiograph, 04/02/2024 FINDINGS: LIMITATIONS: The examination is minimally limited due to motion. LUNGS AND PLEURAL SPACES: Large left and medium right pleural effusions with associated airspace which may be in part atelectasis or pneumonia. Additional alveolar opacities in the pneumatized right lung further suggesting pneumonia. Apparent nodules in the right upper lobe, the largest measuring approximately 1 cm. HEART: Mild cardiomegaly and trace pericardial effusion. Coronary artery calcifications and/or stents. MEDIASTINUM: No significant abnormality. No mediastinal or hilar adenopathy. Esophagus is unremarkable. No hiatal hernia. THYROID: No significant abnormality. No thyroid lesions. BONES/JOINTS: Degenerative changes in the spine. No suspicious lytic or blastic abnormality. VASCULATURE: Atherosclerosis of the aorta and its branch vessels. Thoracic aorta is non-dilated. KIDNEYS AND URETERS: Right renal cyst partially visualized for which no follow-up is indicated. CT/Chest without Contrast IMPRESSION: 1. Large left and medium right pleural effusions with associated airspace which may be in part atelectasis or pneumonia. Additional alveolar opacities in the pneumatized right lung further suggesting pneumonia. 2. Apparent nodules in the right upper lobe, the largest measuring approximately 1 cm. These may be infectious given areas of pneumonia. Fleischner Society Guidelines (MacMahon, et al. Radiology 2017; 284(1):228-43) suggest the following. For low-risk patients recommend follow-up chest CT at 3-6 months. If unchanged consider an additional follow-up CT at 18-24 months. For high-risk patients initial follow-up chest CT at 3-6 months and if unchanged, 18-24 months. 3. Mild cardiomegaly and trace pericardial effusion. Coronary artery calcifications and/or stents. Electronically Signed: Jeff Faulkner DO at 20:29 EDT ,
--- NOTE | 2024-04-24 19:27 | CT_ITS ---
EXAM: CT HEAD WITHOUT INTRAVENOUS CONTRAST CLINICAL INDICATION: altered mental status TECHNIQUE: Multiple axial images were obtained of the head without intravenous contrast. This CT exam was performed using one or more of the following dose reduction techniques: automated exposure control, adjustment of the mA and/or kV according to patient size, and/or use of iterative reconstruction technique. COMPARISON: CT head, 02/16/2024 and 04/08/2024. FINDINGS: BRAIN AND EXTRA-AXIAL SPACES: No significant abnormality. No intra- or extra-axial hemorrhage. No evidence of acute infarct. No intracranial mass or mass effect. There is preservation of the aggarwal/white matter interface. Ventricles are appropriate for age. Basal cisterns are patent. BONES/JOINTS: No significant abnormality. No discrete lytic or blastic abnormalities. VASCULATURE: Arteriosclerosis. SINUSES: No significant findings. MASTOID AIR CELLS: Bilateral mastoid tip effusion. ORBITS: Right ocular lens extraction presumptively for the treatment of a cataract. Otherwise, no acute orbital pathology. CT/Brain/Head without Contrast IMPRESSION: No CT evidence of acute intracranial pathology or significant change prior CT. Electronically Signed: Jeff Faulkner DO at 20:25 EDT ,
--- NOTE | 2024-04-24 19:28 | EKG12_ITS ---
Test Reason : DYSRHYTHMIA Blood Pressure : / mmHG Vent. Rate : 062 BPM Atrial Rate : 000 BPM P-R Int : 000 ms QRS Dur : 106 ms QT Int : 474 ms P-R-T Axes : 000 027 049 degrees QTc Int : 481 ms Atrial fibrillation Low voltage QRS Septal infarct , age undetermined Abnormal ECG Confirmed by MATT DUMONT, CLOTILDE ([id number]), acquisition editor AMARIS CASTORENA ([id number]) on 04/29/2024 1:55:26 PM Referred By: AJAY Confirmed By:NASIR GUTIERREZ MD
--- NOTE | 2024-04-24 19:32 | ED.VIS.DYS ---
HPI History of Present Illness Chief Complaint: Shortness of Breath Informant: patient, family and SNF Narrative Narrative: 78-year-old male from a skilled nursing apparently was out of breath today at the skilled nursing so they obtained a chest x-ray, it showed left-sided consolidation recommend CT, he was sent to the ER. No other history about today is available. The daughter MICHAEL is here, it is difficult to discern based on her description of the patient's encephalopathy is different than it had been in the recent past. She states in January he was functioning normally at home and he has had a decline, and she speaks a lot about him being in a different facility that was not caring for him well. Patient denies having any pain right now. He denies having any dyspnea right now. The patient's POA states he often hallucinates as he is doing now and that is not new but unknown how long that has been the case. [facility] Medical History History of Parkinson's disease History of COPD Sick sinus syndrome History of heart failure Orthostatic hypotension Sciatica Personal history of colonic polyps Confusion Fall History of diabetes mellitus Chronic anemia Adult failure to thrive Bradycardia Fall Acute alteration in mental status CHI (closed head injury) Anemia Essential hypertension Degenerative disk disease Congestive heart failure (CHF) On home oxygen therapy Atrial fibrillation Coronary artery disease Chest pain Lower extremity edema Macrocytic anemia Hallucinations Short-term memory loss Hypoxia Hypertensive urgency Anemia CHF (congestive heart failure) COPD exacerbation Acute respiratory failure with hypoxia Syncope Delirium Orthostatic hypotension Presence of stent in coronary artery (~05/12/21) Atherosclerotic heart disease of [place] coronary artery without angina pectoris HLD (hyperlipidemia) Anemia Vertigo Degenerative disc disease, lumbar Anxiety Diabetes GERD (gastroesophageal reflux disease) Former smoker Parkinson's disease Altered mental status Back pain Hypertension Home Medications ?Medication ?Instructions ?Recorded ?Last Taken ?Type aspirin 81 mg tablet,delayed 81 mg PO DAILY HEART HEALTH 08/16/23 02/16/24 History release (Bertin Low Dose Aspirin) atorvastatin 20 mg tablet 20 mg PO QHS CHOLESTEROL #90 tabs 08/16/23 Unknown Rx cyanocobalamin (vitamin B-12) 500 mcg PO DAILY SUPPLEMENT 02/06/24 Unknown History 1,000 mcg tablet albuterol sulfate 2.5 mg/3 mL 2.5 mg (3 mL) inhalation Q6H PRN 02/14/24 Unknown Rx (0.083 %) solution for nebulization SHORTNESS OF BREATH/WHEEZING #0 mL folic acid 1 mg tablet 1 mg PO DAILYCM #0 tabs 02/14/24 02/16/24 Rx food supplemt, lactose-reduced 120 ml PO 4X/DAY #0 mL 02/14/24 02/16/24 Rx 0.08 gram-1.5 kcal/mL oral liquid (Ensure Plus High Protein) lisinopril 20 mg tablet 20 mg PO DAILY #0 tabs 02/14/24 Unknown Rx omeprazole 20 mg capsule,delayed 20 mg PO DAILY 02/16/24 Unknown History release ferrous sulfate 325 mg (65 mg 325 mg PO DAILY #90 tabs 02/27/24 Unknown Rx iron) tablet nifedipine 30 mg tablet,extended 30 mg PO DAILY #90 tabs 02/27/24 Unknown Rx release 24 hr bisacodyl 10 mg rectal suppository 10 mg OK DAILY PRN constipation 04/02/24 Unknown History dextrose 40 % oral gel (Gluco 1 ea PO PRN PRN hypoglycemia 04/02/24 Unknown History Burst) donepezil 10 mg tablet 10 mg PO QHS DEMENTIA 04/02/24 Unknown History glucagon 1 mg/0.2 mL subcutaneous 1 mg subcut PRN PRN hypoglycemia 04/02/24 Unknown History auto-injector levetiracetam 500 mg tablet 500 mg PO BID 04/02/24 Unknown History (Keppra) magnesium hydroxide 400 mg/5 mL 30 ml PO DAILY PRN constipation 04/02/24 Unknown History oral suspension melatonin 1 mg chewable tablet 1 mg PO QHS INSOMNIA 04/02/24 Unknown History (Children's Sleep (melatonin)) sennosides 8.6 mg-docusate sodium 2 tab-cap PO DAILY PRN constipation 04/02/24 Unknown History 50 mg capsule (Senna Plus) menthol 0.44 %-zinc oxide 20.6 % 1 applic topical TID #0 grams 04/14/24 Unknown Rx topical ointment (Calmoseptine) ascorbate calcium (vitamin C) 500 500 mg PO DAILY 04/24/24 Unknown History mg tablet cholecalciferol (vitamin D3) 125 5,000 unit PO DAILY 04/24/24 Unknown History mcg (5,000 unit) capsule doxycycline hyclate 100 mg capsule 100 mg PO DAILY 04/24/24 Unknown History multivitamin 1 tab PO DAILY 04/24/24 Unknown History Allergy/AdvReac Type Severity Reaction Status Date / Time cat dander (cats) Allergy Mild Rash Verified 02/26/24 01:05 Surgical History History of coronary artery stent placement Presence of coronary angioplasty implant and graft (~05/12/21) Social History household members: spouse housing: skilled nursing Smoking Status: Former smoker alcohol intake: never substance use type: does not use ROS ROS ED Review of Systems ROS Unobtainable: other Details: Limited history due to slurred speech and difficulty answering all questions. Cardiovascular Cardiovascular: Denies chest pain Respiratory/Chest Respiratory/Chest: Denies dyspnea Gastrointestinal Gastrointestinal: Denies abdominal pain or nausea Musculoskeletal Musculoskeletal: Denies back pain Neurologic Neurologic: Denies headache(s) EXAM Physical Exam Const Vital Signs: 04/24/24 18:39 04/24/24 18:43 04/24/24 19:36 Temperature 97.1 F L 96.3 F L Temperature Source Oral Axillary Pulse Rate 55 L 47 L Respiratory Rate 15 17 Respiratory Effort Normal Blood Pressure 113/64 129/55 H Blood Pressure Mean 80 79 Pulse Ox 98 96 Oxygen Delivery Method Room Air Room Air 04/24/24 19:38 04/24/24 19:43 04/24/24 19:55 Temperature 97.6 F L Temperature Source Temporal Pulse Rate 53 L 39 L Respiratory Rate 16 18 Respiratory Effort Blood Pressure 120/54 L 130/61 H Blood Pressure Mean 76 84 Pulse Ox 93 95 Oxygen Delivery Method Room Air Room Air 04/24/24 20:00 04/24/24 20:00 04/24/24 21:00 Temperature 97.6 F L 97.0 F L Temperature Source Temporal Temporal Pulse Rate 43 L 53 L Respiratory Rate 16 16 Respiratory Effort Blood Pressure 130/61 H 131/58 H 137/57 H Blood Pressure Mean 84 82 83 Pulse Ox 95 96 Oxygen Delivery Method Room Air Room Air 04/24/24 21:00 04/24/24 21:13 Temperature 97.0 F L Temperature Source Pulse Rate 53 L Respiratory Rate 18 Respiratory Effort Blood Pressure 137/57 H 137/57 H Blood Pressure Mean 83 83 Pulse Ox 96 Oxygen Delivery Method Positive well nourished and well developed General Appearance ED: well developed and NAD HEENT Reports moist mucous membranes normocephalic and atraumatic Eyes PERRL and EOMs intact bilaterally Neck full ROM and supple Resp normal respiratory effort Resp Narrative: Decreased breath sounds left side. Otherwise relatively clear. No distress. Easy breathing. Cardio regular rate, regular rhythm and no murmurs GI non-tender and non-distended Auscultation: normoactive bowel sounds Palpation: soft Back/Spine no CVA tenderness General Back: other FROM Extremity normal to inspection Extremity Narrative: Bruising throughout both forearms. Healing skin tear left forearm. General Extremety ED: Yes edema; Negative for pulses abnormal or tenderness General Extremity: edema bilateral lower extremity Details: mild; Negative for pulses abnormal Neuro CN's II-XII intact bilaterally and no sensory deficits noted Neuro Narrative: Some disorientation. Alert and oriented to person and his daughter. Nonfocal neurologic exam otherwise, generally symmetrically weak. Sensorium / Orientation: awake and alert Motor Exam: general weakness Skin General Skin Exam: Negative for jaundice Rashes: no rashes MDM MDM MDM Narrative Medical decision making narrative: Given the chest x-ray report as noted below, I obtained a CT of the chest without contrast in addition to labs to put this in context. Does not appear septic, white blood count 6.6, urinalysis unremarkable liver enzymes within normal limits renal function noted and unremarkable. Troponin normal. Not hypoxic and not in respiratory distress. I reviewed the CT as well as the report which I agree with; it is concerning for bilateral pneumonia and bilateral pleural effusions much larger on the left than the right. He is quite diminished clinically on the left. In looking at paperwork from the skilled nursing, they just started doxycycline today and is unknown if he even got a dose. Does not appear that he was on any other antibiotics. He is on no anticoagulants bruising the list. I spoke with the POA, and discussed the possibility of a thoracentesis given the size of the effusions. She is amenable that if specialist think he needs it. He does not need it emergently as he is not currently in respiratory distress, but the effusions are quite large especially on the left. I am treating him empirically for pneumonia and admitting him to the hospital. Pulmonary was here today, but since it is nighttime now, I am not able to discuss with marine engineering technicians, but between pulmonary and interventional radiology which should have the capability of performing this procedure if needed tomorrow since it is a weekday. In addition the patient has relative bradycardia. He is tolerating it well while lying supine/resting, and his blood pressure is good, underlying rhythm is A-fib. He is on no AV ruby blockers at this time. Discussed with cardiology, we should have the ability to do pacemakers this week if needed, therefore hospital is comfortable admitting him here, they will manage further antibiotics. History & Record Review Additional record(s) reviewed:: Other (Outpatient chest x-ray report from [id number] consolidation CT recommended) Lab Data Attestation: I reviewed the patient's lab results. Labs: Laboratory Results - last 24 hr 04/24/24 04/24/24 04/24/24 18:55 19:55 20:25 WBC 6.6 RBC 3.26 L Hgb 10.0 L Hct 31.9 L MCV 97.9 H MCH 30.7 MCHC 31.3 L RDW Std Deviation 61.1 H RDW Coeff of Sophie 17.8 H Plt Count 187 MPV 10.3 Immature Gran % (Auto) 0.600 Neut % (Auto) 74.8 H Lymph % (Auto) 16.2 L Mcdonough % (Auto) 7.3 Eos % (Auto) 0.6 Baso % (Auto) 0.5 Absolute Neuts (auto) 4.9 Absolute Lymphs (auto) 1.07 Nucleated RBC % 0 PT 13.8 INR 1.1 APTT 32.5 Sodium 143 Potassium 4.5 Chloride 111 H Carbon Dioxide 31.0 Anion Gap 1 L BUN 16 Creatinine 1.14 Estim Creat Clear Calc 58.47 Est GFR (MDRD) Af Amer 80 Est GFR (MDRD) Non-Af 66 BUN/Creatinine Ratio 14.0 Glucose 131 H Lactic Acid 2.0 Calcium 8.5 Total Bilirubin 0.20 AST 27 ALT 23 Alkaline Phosphatase 148 H Troponin I High Sens 7 Total Protein 5.8 L Albumin 2.1 L Globulin 3.7 Albumin/Globulin Ratio 0.6 L Urine Color Yellow Urine Clarity Clear Urine pH 5.0 Ur Specific [place] 1.015 Urine Protein 30 H Urine Glucose (UA) Normal Urine Ketones Negative Urine Occult Blood Negative Urine Nitrite Negative Urine Bilirubin Negative Urine Urobilinogen Normal Ur Leukocyte Esterase 25 H Urine RBC 0-5 SEEN Urine WBC 0-5 SEEN Ur Squamous Epith Cells 0-5 SEEN Ur Transition Epith Cell 0-5 SEEN Urine Bacteria 1+ Hyaline Casts 5-10 SEEN Urine Mucus 1+ Radiography Diagnostic Testing: Clinical Impression(s) from Imaging Studies Brain CT 04/24/24 19:27 IMPRESSION: No CT evidence of acute intracranial pathology or significant change prior CT. Electronically Signed: Jeff Faulkner DO at 20:25 EDT , Chest CT 04/24/24 19:27 IMPRESSION: 1. Large left and medium right pleural effusions with associated airspace which may be in part atelectasis or pneumonia. Additional alveolar opacities in the pneumatized right lung further suggesting pneumonia. 2. Apparent nodules in the right upper lobe, the largest measuring approximately 1 cm. These may be infectious given areas of pneumonia. Fleischner Society Guidelines (MacMahon, et al. Radiology 2017; 284(1):228-43) suggest the following. For low-risk patients recommend follow-up chest CT at 3-6 months. If unchanged consider an additional follow-up CT at 18-24 months. For high-risk patients initial follow-up chest CT at 3-6 months and if unchanged, 18-24 months. 3. Mild cardiomegaly and trace pericardial effusion. Coronary artery calcifications and/or stents. Electronically Signed: Jeff Faulkner DO at 20:29 EDT , Rhythm Strip Rhythm Strip: A-fib Rate: 40 (Irregular) Ectopy: None EKG Initial EKG: Attestation: I personally reviewed and interpreted this EKG as follows: Interpretation: No Acute Injury Pattern and Atrial Fibrillation Prior EKG tracings: available for review Prior: Unchanged Management Discussion w/another healthcare provider: Hospitalist and Shipping Track Supervisor (Cardiology Ellen) Discharge Plan Dx/Rx/DC Orders Clinical Impression: Bilateral pleural effusion, Acute dyspnea, Encephalopathy, Pneumonia, Bradycardia, Chronic a-fib Disposition Disposition: Acute Care Hospital [facility]
[2024-04-24 19:46] LABS: Absolute Lymphocyte Count 1.07 X10^3/uL (0.83-4.51); Absolute Neutrophil Count 4.9 X10^3/uL (2.0-7.7); Basophil# 0.03 X10^3/uL; Basophil% 0.5 % (0-1); Eosinophil# 0.04 X10^3/uL; Eosinophils% 0.6 % (0-5); Hematocrit 31.9 % (40-54); Lymphocyte # 1.07 X10^3/ul (0.83-4.51); Lymphocyte % 16.2 % (19-41); Mean Corp Hgb Conc 31.3 g/dL (32-36); Mean Corpuscular Hgb 30.7 pg (27.0-32.0); Mean Corpuscular Volume 97.9 fL (80-94); Mean Platelet Vol. 10.3 fl (6.2-12.0); Monocyte# 0.48 X10^3/uL; Monocyte% 7.3 % (0-10); NRBC Flagged by Analyzer 0 % (0-5); Neutrophil # 4.93 X10^3/uL (2.7-7.7); Neutrophil % 74.8 % (47-70); Platelet Count 187 K/mm3 (150-450); RBC Distribution Width CV 17.8 % (11.6-14.6); RBC Distribution Width SD 61.1 fl (35.1-43.9); Red Blood Count 3.26 M/mm3 (4.6-6.2); White Blood Count 6.6 K/mm3 (4.4-11.0)
[2024-04-24] MEDS: 0.9% Normal Saline (1000mL) 1,000 ML 150 ML IV (19:50)
[2024-04-24 19:57] LABS: International Normalized Ratio 1.1; Prothrombin Time (Protime)PT. 13.8 SECONDS (11.7-14.9)
[2024-04-24 19:58] LABS: Partial Thromboplast Time 32.5 Seconds (24.1-36.2)
[2024-04-24 20:02] LABS: ALB/GLOB Ratio 0.6 RATIO (0.9-2.4); AST(SGOT) 27 U/L (15-37); Alanine Aminotransfer ALT/SGPT 23 U/L (16-61); Albumin, Serum 2.1 g/dL (3.2-5.0); Alkaline Phosphatase 148 U/L (45-117); Anion Gap 1 (5-15); BUN 16 mg/dL (7-18); Calcium,Total 8.5 mg/dL (8.5-10.1); Chloride 111 mmol/L (98-107); Creatinine, Serum 1.14 mg/dL (0.70-1.30); EST Glomerular Filtration Rate 66 mL/min (>60); Est Glom Filt Rate - Afr Amer 80 mL/min (>60); Estimated Creatinine Clearance 58.47 ml/min; Globulin 3.7 g/dL (2.2-4.2); Glucose 131 mg/dL (74-106); Potassium 4.5 mmol/L (3.5-5.1); Protein, Total 5.8 g/dL (6.4-8.2); Sodium Level 143 mmol/L (136-145); Troponin-I HS 7 pg/mL (3.0-78.0)
[2024-04-24 20:39] LABS: Color, Urine Yellow (Yellow); Glucose, Dipstick Normal (Normal); Ketone-Dipstick Negative (Negative); Leukocyte Esterase-Dipstick 25 /ul (Negative); Nitrite-Dipstick Negative (Negative); Occult Blood-Urine Negative /ul (Negative); Protein-Dipstick 30 mg/dl (Negative); Specific Gravity, Urine 1.015 (1.002-1.030); Urine Bilirubin Dipstick Negative (Negative); Urine Clarity Clear (Clear); Urine Urobilinogen Normal (Normal)
[2024-04-24 21:09] LABS: Bacteria 1+ /hpf (None Seen); Hyaline Cast 5-10 SEEN /lpf (0-5); Mucous, Urine 1+ /hpf (<or=2+); Red Blood Cells-Urine 0-5 SEEN /hpf (0-5); Squamous Epithelial Cells - UA 0-5 SEEN /hpf (0-5); White Blood Cells 0-5 SEEN /hpf (0-5)
[2024-04-24 21:12] LABS: Transitional Epithelial - Ur 0-5 SEEN /hpf (0-5)
--- NOTE | 2024-04-24 21:55 | HP.PCM.HOS_ITS ---
HPI - General General Date of Admission: 04/24/24 Date of Service: 04/24/24 Chief Complaint: Shortness of breath HPI Narrative KERRY VALDES, is a 78 M who presented to [facility] ED on 04/24/2024 from SNF for worsening shortness of breath. Saw patient at bedside in the ED, daughter present. Patient was recently hospitalized here from 04/02-04/14 for septic shock and acute hypercapnic respiratory failure secondary to Klebsiella pneumonia. His discharge was complicated by persistent encephalopathy concerning for possible worsening dementia. Patient was discharged to SNF in stable condition on 04/14. Patient was reportedly doing fine at SNF until the past few days when he seemed to be more out of breath. They obtained a chest x-ray there that showed bilateral pleural effusions versus pneumonia, so he was sent to the ED for further evaluation. On arrival here, patient had CT chest done that showed large left and medium right pleural effusions with associated airspace disease suspected atelectasis versus pneumonia, along with mild cardiomegaly and trace pericardial effusion. He notably was breathing abnormally on room air and satting in the mid 90s. Vitals were otherwise remarkable for slow A-fib with rates in the high 30s to low 50s consistently. Blood pressure was low normal. Labs on admit notable for creatinine 1.14 (baseline 0.8-0.9), BNP 395, otherwise unremarkable. CT brain was nonacute. On my encounter, patient was sitting up comfortably in bed and in no acute distress. He was making appropriate eye contact and appeared to be understanding my questions. His responses were slowed and deliberate, but he was answering my questions appropriately. He denied any chest pain or discomfort currently. He denied any recent pneumonia type symptoms such as cough or sputum production, fevers or chills or wheezing. He does report some swelling in his legs, worse than normal. No other acute concerns. [facility] Medical History History of Parkinson's disease History of COPD Sick sinus syndrome History of heart failure Orthostatic hypotension Sciatica Personal history of colonic polyps Confusion Fall History of diabetes mellitus Chronic anemia Adult failure to thrive Bradycardia Fall Acute alteration in mental status CHI (closed head injury) Anemia Essential hypertension Degenerative disk disease Congestive heart failure (CHF) On home oxygen therapy Atrial fibrillation Coronary artery disease Chest pain Lower extremity edema Macrocytic anemia Hallucinations Short-term memory loss Hypoxia Hypertensive urgency Anemia CHF (congestive heart failure) COPD exacerbation Acute respiratory failure with hypoxia Syncope Delirium Orthostatic hypotension Presence of stent in coronary artery (~05/12/21) Atherosclerotic heart disease of [place] coronary artery without angina pectoris HLD (hyperlipidemia) Anemia Vertigo Degenerative disc disease, lumbar Anxiety Diabetes GERD (gastroesophageal reflux disease) Former smoker Parkinson's disease Altered mental status Back pain Hypertension Home Medications ?Medication ?Instructions ?Recorded ?Last Taken ?Type aspirin 81 mg tablet,delayed 81 mg PO DAILY HEART HEALTH 08/16/23 02/16/24 History release (Bertin Low Dose Aspirin) atorvastatin 20 mg tablet 20 mg PO QHS CHOLESTEROL #90 tabs 08/16/23 Unknown Rx cyanocobalamin (vitamin B-12) 500 mcg PO DAILY SUPPLEMENT 02/06/24 Unknown History 1,000 mcg tablet albuterol sulfate 2.5 mg/3 mL 2.5 mg (3 mL) inhalation Q6H PRN 02/14/24 Unknown Rx (0.083 %) solution for nebulization SHORTNESS OF BREATH/WHEEZING #0 mL folic acid 1 mg tablet 1 mg PO DAILYCM #0 tabs 02/14/24 02/16/24 Rx food supplemt, lactose-reduced 120 ml PO 4X/DAY #0 mL 02/14/24 02/16/24 Rx 0.08 gram-1.5 kcal/mL oral liquid (Ensure Plus High Protein) lisinopril 20 mg tablet 20 mg PO DAILY #0 tabs 02/14/24 Unknown Rx omeprazole 20 mg capsule,delayed 20 mg PO DAILY 02/16/24 Unknown History release ferrous sulfate 325 mg (65 mg 325 mg PO DAILY #90 tabs 02/27/24 Unknown Rx iron) tablet nifedipine 30 mg tablet,extended 30 mg PO DAILY #90 tabs 02/27/24 Unknown Rx release 24 hr bisacodyl 10 mg rectal suppository 10 mg PA DAILY PRN constipation 04/02/24 Unknown History dextrose 40 % oral gel (Gluco 1 ea PO PRN PRN hypoglycemia 04/02/24 Unknown History Burst) donepezil 10 mg tablet 10 mg PO QHS DEMENTIA 04/02/24 Unknown History glucagon 1 mg/0.2 mL subcutaneous 1 mg subcut PRN PRN hypoglycemia 04/02/24 Unknown History auto-injector levetiracetam 500 mg tablet 500 mg PO BID 04/02/24 Unknown History (Keppra) magnesium hydroxide 400 mg/5 mL 30 ml PO DAILY PRN constipation 04/02/24 Unknown History oral suspension melatonin 1 mg chewable tablet 1 mg PO QHS INSOMNIA 04/02/24 Unknown History (Children's Sleep (melatonin)) sennosides 8.6 mg-docusate sodium 2 tab-cap PO DAILY PRN constipation 04/02/24 Unknown History 50 mg capsule (Senna Plus) menthol 0.44 %-zinc oxide 20.6 % 1 applic topical TID #0 grams 04/14/24 Unknown Rx topical ointment (Calmoseptine) ascorbate calcium (vitamin C) 500 500 mg PO DAILY 04/24/24 Unknown History mg tablet cholecalciferol (vitamin D3) 125 5,000 unit PO DAILY 04/24/24 Unknown History mcg (5,000 unit) capsule doxycycline hyclate 100 mg capsule 100 mg PO DAILY 04/24/24 Unknown History multivitamin 1 tab PO DAILY 04/24/24 Unknown History Allergy/AdvReac Type Severity Reaction Status Date / Time cat dander (cats) Allergy Mild Rash Verified 02/26/24 01:05 Surgical History History of coronary artery stent placement Presence of coronary angioplasty implant and graft (~05/12/21) Social History household members: spouse housing: intermediate Smoking Status: Former smoker alcohol intake: never substance use type: does not use ROS Constitutional Constitutional: Denies chills, fatigue, fever(s) or weakness Cardiovascular Cardiovascular: Reports edema; Denies chest pain, palpitations, rapid heart rate or syncope Respiratory/Chest Respiratory/Chest: Denies cough, productive cough, shortness of breath at rest or wheezing Gastrointestinal Gastrointestinal: Denies abdominal pain Neurologic Neurologic: Denies dizziness, focal weakness or headache(s) Vital Signs Vital Signs Vital Signs: 04/24/24 18:39 04/24/24 18:43 04/24/24 19:36 Temperature 97.1 F L 96.3 F L Temperature Source Oral Axillary Pulse Rate 55 L 47 L Respiratory Rate 15 17 Respiratory Effort Normal Blood Pressure 113/64 129/55 H Blood Pressure Mean 80 79 Pulse Ox 98 96 Oxygen Delivery Method Room Air Room Air 04/24/24 19:38 04/24/24 19:43 04/24/24 19:55 Temperature 97.6 F L Temperature Source Temporal Pulse Rate 53 L 39 L Respiratory Rate 16 18 Respiratory Effort Blood Pressure 120/54 L 130/61 H Blood Pressure Mean 76 84 Pulse Ox 93 95 Oxygen Delivery Method Room Air Room Air 04/24/24 20:00 04/24/24 20:00 04/24/24 21:00 Temperature 97.6 F L 97.0 F L Temperature Source Temporal Temporal Pulse Rate 43 L 53 L Respiratory Rate 16 16 Respiratory Effort Blood Pressure 130/61 H 131/58 H 137/57 H Blood Pressure Mean 84 82 83 Pulse Ox 95 96 Oxygen Delivery Method Room Air Room Air 04/24/24 21:00 04/24/24 21:13 Temperature 97.0 F L Temperature Source Pulse Rate 53 L Respiratory Rate 18 Respiratory Effort Blood Pressure 137/57 H 137/57 H Blood Pressure Mean 83 83 Pulse Ox 96 Oxygen Delivery Method Weight Weight: 94.1 kg Body Mass Index (BMI) 31.5 Physical Exam Const alert, no apparent distress and average body habitus Constitutional Narrative: Elderly male, chronically ill-appearing, sitting up comfortably in bed, has slowed and deliberate responses but answering questions appropriately, in no acute distress. General Appearance: cooperative and comfortable HEENT normocephalic, head/scalp atraumatic, hearing grossly normal bilaterally and nasal mucous membranes and turbinates normal Eyes PERRL, EOMs intact bilaterally and conjunctivae normal Neck full ROM and no JVD Chest inspection of chest normal Resp normal respiratory effort and no use of accessory muscles Resp Narrative: Significantly diminished breath sounds in bilateral lung bases with crackles noted in mid lung zones bilaterally. No wheezing noted. Breathing comfortably on room air at rest. Cardio no murmurs and peripheral pulses 2+ throughout Cardio Narrative: A-fib with slow ventricular rate. GI normal to inspection, nondistended, normoactive bowel sounds, soft to palpation, non-tender and non-distended Back/Spine normal ROM Extremity full ROM Extremity Narrative: +1-2 lower extremity pitting edema noted. Skin no rashes or lesions noted Neuro moves all extremities and no focal motor deficits Psych mental status grossly normal Results Lab / Micro Data 04/24/24 18:55 04/24/24 18:55 Labs: Laboratory Results - last 24 hr 04/24/24 18:55: WBC 6.6, RBC 3.26 L, Hgb 10.0 L, Hct 31.9 L, MCV 97.9 H, MCH 30.7, MCHC 31.3 L, RDW Std Deviation 61.1 H, RDW Coeff of Sophie 17.8 H, Plt Count 187, MPV 10.3, Immature Gran % (Auto) 0.600, Neut % (Auto) 74.8 H, Lymph % (Auto) 16.2 L, [place] % (Auto) 7.3, Eos % (Auto) 0.6, Baso % (Auto) 0.5, Absolute Neuts (auto) 4.9, Absolute Lymphs (auto) 1.07, Nucleated RBC % 0, PT 13.8, INR 1.1, APTT 32.5, Sodium 143, Potassium 4.5, Chloride 111 H, Carbon Dioxide 31.0, Anion Gap 1 L, BUN 16, Creatinine 1.14, Estim Creat Clear Calc 58.47, Est GFR (MDRD) Af Amer 80, Est GFR (MDRD) Non-Af 66, BUN/Creatinine Ratio 14.0, Glucose 131 H, Calcium 8.5, Total Bilirubin 0.20, AST 27, ALT 23, Alkaline Phosphatase 148 H, Troponin I High Sens 7, Total Protein 5.8 L, Albumin 2.1 L, Globulin 3.7, Albumin/Globulin Ratio 0.6 L 04/24/24 19:55: Lactic Acid 2.0 04/24/24 20:25: Urine Color Yellow, Urine Clarity Clear, Urine pH 5.0, Ur Specific [place] 1.015, Urine Protein 30 H, Urine Glucose (UA) Normal, Urine Ketones Negative, Urine Occult Blood Negative, Urine Nitrite Negative, Urine Bilirubin Negative, Urine Urobilinogen Normal, Ur Leukocyte Esterase 25 H, Urine RBC 0-5 SEEN, Urine WBC 0-5 SEEN, Ur Squamous Epith Cells 0-5 SEEN, Ur Transition Epith Cell 0-5 SEEN, Urine Bacteria 1+, Hyaline Casts 5-10 SEEN, Urine Mucus 1+ Rhythm Strip Rhythm Strip: A-fib Rate: 40 (Irregular) Ectopy: None Imaging Radiology Impression Brain CT 04/24/24 19:27 IMPRESSION: No CT evidence of acute intracranial pathology or significant change prior CT. Electronically Signed: Jeff Faulkner DO at 20:25 EDT , Chest CT 04/24/24 19:27 IMPRESSION: 1. Large left and medium right pleural effusions with associated airspace which may be in part atelectasis or pneumonia. Additional alveolar opacities in the pneumatized right lung further suggesting pneumonia. 2. Apparent nodules in the right upper lobe, the largest measuring approximately 1 cm. These may be infectious given areas of pneumonia. Fleischner Society Guidelines (MacMahon, et al. Radiology 2017; 284(1):228-43) suggest the following. For low-risk patients recommend follow-up chest CT at 3-6 months. If unchanged consider an additional follow-up CT at 18-24 months. For high-risk patients initial follow-up chest CT at 3-6 months and if unchanged, 18-24 months. 3. Mild cardiomegaly and trace pericardial effusion. Coronary artery calcifications and/or stents. Electronically Signed: Jeff Faulkner DO at 20:29 EDT , Assessment & Plan Assessment/Plan (1) Bilateral pleural effusion: (2) Chronic a-fib: (3) Bradycardia: (4) Generalized weakness: PLAN: Plan Patient is a 78-year-old male who presented [facility] ED on 04/24/2024 from SNF for worsening shortness of breath. 1. New bilateral pleural effusions with shortness of breath ? Admit under inpatient status to PCU. Highest suspicion is that pleural effusions are secondary to volume overload from new persistent A-fib with slow ventricular response leading to heart failure. Cannot rule out pneumonia but this seems less likely. Notably, have low concern for ischemic etiology of suspected new heart failure. Does have history of CAD with stenting, but no reported episodes of chest pain recently, and normal troponins and no ischemic changes on EKG on admit. Last echo on 11/29/2023 showed EF 65%, no significant valvular disease. Has been afebrile and denies any pneumonia type symptoms including fever/chills or productive cough. Cardiology consulted as noted below for further recommendations. Will start IV Lasix 40 mg twice daily for now, monitor daily BMP and urine output. Radiology consulted for diagnostic and therapeutic thoracentesis. Will empirically treat with azithromycin and ceftriaxone for now but low threshold to discontinue in the next few days. Continue home albuterol as needed. 2. A-fib with slow ventricular response ? Cardiology consulted. Has history of chronic A-fib but on review of heart rate trends from previous admissions, does not appear that he has ever had slow ventricular response. Since arrival to the ED, heart rate has persistently been in the high 30s to low 50s. Patient is on donepezil but has been on this for the past several months, is not a new medication. Not on any other rate modifying medications. Patient not on anticoagulation for unclear reason; notably has not been on AC during previous admissions. Continue cardiac monitoring. Appreciate further cardiology recommendations. 3. Mild creatinine elevation ? Creatinine 1.14 on admit, baseline 0.8-0.9. Suspect mild bump is due to a degree of cardiorenal syndrome. Treated with IV Lasix as noted above. Monitor daily BMP and urine output. 4. Debility ? PT/OT/case management consulted. Has been residing in SNF since recent discharge on 04/14. Will likely return to SNF on discharge. 5. Dementia ? Had concern for some degree of encephalopathy on admission, but on my encounter patient is alert and answering questions appropriately. CT brain on admit was unremarkable. Suspect cognitive slowing is due to underlying dementia. Continue home donepezil. Chronic medical conditions: ? History of CAD s/p stenting, hypertension, hyperlipidemia: Continue home aspirin and statin. Holding home lisinopril and phentermine for now given borderline low blood pressures on admit. ? Chronic iron deficiency anemia: Hemoglobin 10.0 on admit, at baseline. Continue home iron supplement. ? GERD: Continue home PPI. ? History of COPD: Not in acute exacerbation. Continue home albuterol inhaler as needed. ? Reported history of seizures: Per daughter, patient was recently started on Keppra for concern for seizure activity and she notes that he has never had seizures and she would like for this medication to be removed from his med list. On review of recent admission, had EEG done that showed generalized brainwave slowing consistent with encephalopathy, no concern for seizures. Will discontinue Keppra now. DVT prophylaxis: Lovenox CODE STATUS: DNR CCA, DNI Expected disposition: Back to intermediate, TBD Total clinical time spent by myself addressing the patient's medical issues, reviewing all the data, and collaborating with patient's care team: 75 minutes. Charges/Coding Visit Charges Inpatient E&M: 84242 Init Hosp L3
[2024-04-24 22:12] LABS: BNP,B-Type NATRIURETIC PEPTIDE 395.6 pg/mL (0-100)
--- NOTE | 2024-04-24 23:08 | ECHOD_ITS ---
Reason For Study: Afib/Flutter Procedure This was a 2D Doppler, Color Flow transthoracic echocardiogram. Exam performed portable in patient room. Left Ventricle Normal LV size. The estimated ejection fraction is 70 %. Unable to assess diastolic dysfunction. No regional wall motion abnormalities noted. Right Ventricle Normal RV size. Normal systolic function. Atria The left atrium is mildly enlarged. Normal right atrium. No doppler evidence for ASD. Mitral Valve There is moderate mitral annular calcification. There is no mitral valve stenosis. No mitral valve insufficiency. Tricuspid Valve There is no tricuspid stenosis. Trivial tricuspid valve insufficiency. Pulmonary artery systolic pressure is 30 mmHg. Aortic Valve Trisinus/trileaflet aortic valve. There is no aortic stenosis. Mild (1+) aortic valve insufficiency. Pulmonic Valve There is no pulmonic valvular stenosis. No pulmonic valve insufficiency. Great Vessels Normal aortic root. Pericardium/Pleural No pericardial effusion. MMode/2D Measurements & Calculations LVIDd: 4.1 cm IVSd: 1.7 cm LVOT diam: 2.3 cm LVIDs: 2.8 cm LVPWd: 1.4 cm LVOT area: 4.1 cm2 RVDd: 3.2 cm FS: 33.2 % Ao root diam: 3.9 cm LAV(MOD-bp): 78.3 ml LA A4 area: 24.4 cm2 LA dimension: 4.7 cm LAV(MOD-bp) Indexed: 36.8 ml/m2 LAV(MOD-sp2): 84.2 ml LAV(MOD-sp4): 68.2 ml Time Measurements MV dec time: 0.17 sec Doppler Measurements & Calculations MV E max yuridia: 74.6 cm/sec MV V2 max: 96.2 cm/sec Ao V2 max: 93.0 cm/sec MV max P.7 mmHg Ao max P.5 mmHg MV V2 mean: 40.7 cm/sec Ao V2 mean: 61.7 cm/sec MV mean P.88 mmHg Ao mean P.8 mmHg MV V2 VTI: 36.2 cm Ao V2 VTI: 24.5 cm MVA(VTI): 3.2 cm2 AV (velocity ratio): 1.2 GINGER(I,D): 4.7 cm2 GINGER(V,D): 3.9 cm2 AI max yuridia: 303.8 cm/sec LV V1 max: 87.6 cm/sec SV(LVOT): 116.2 ml AI max P.1 mmHg LV V1 max P.1 mmHg LV V1 mean P.6 mmHg AI dec slope: 56.3 cm/sec2 LV V1 mean: 59.0 cm/sec AI P1/2t: 1580 msec LV V1 VTI: 28.3 cm PA V2 max: 57.7 cm/sec TR max yuridia: 241.1 cm/sec PA max PG (full): 0.51 mmHg TR max P.3 mmHg ECHO/Echo Complete Interpretation Summary The estimated ejection fraction is 70 %. Unable to assess diastolic dysfunction. The left atrium is mildly enlarged. Mild (1+) aortic valve insufficiency. Ordering Physician: Oziel Rome Performed By: Bjorn Denis and Student
[2024-04-24] MEDS: Ceftriaxone 1 GM/50 ML BAG IV (23:53)
[2024-04-24] MEDS: Menthol/Lanolin/Calamine/Znox 113 GM Tube 1 APPLIC TOPICAL (23:53)
[2024-04-24] MEDS: Donepezil HCl 10 MG Tablet PO (23:53)
[2024-04-24] MEDS: Atorvastatin Calcium 20 MG Tablet PO (23:53)
[2024-04-25] VITALS (13 sets, daily range): BP systolic 99–144; BP diastolic 43–85; PULSE 40–72; RESP 16–18; TEMP 35.8–36.7; O2SAT 92–98
--- NOTE | 2024-04-25 | IMM_PTH ---
PATIENT: KERRY VALDES LOC: PCU U#:[id number] AGE/SX: 78/M ROOM: [facility] RE04/24/[address]: Dr. Marcelo Boyd MD : 1945 BED: 1 DIS: 04/27/2024 SPEC #: [id number] RECD: 04/28/24 11:24 STATUS: SOUKim REQ #: [id number] YO: 04/25/24 00:[address]: Marcelo Boyd DEPT: IMMUNOHISTOCHEMISTRY RECD BY: Octavio Hubbard ENTERED: 04/28/24 11:25 SP TYPE: IMMUNO OTHR DR: DO Dr. Bryan Kenyon MD Dr. Jyothi Gudla, MD Tissues: THORACIC FLUID Procedures: NAPSIN A (add) Ryan Ret (add) CK20 (add) CK5-6 (add) CK7 (add) KI-67 (add) P53 (add) TTF1 (add) Pankeratin (initial) P40 (add) PHYSICIAN & [address] [address] SPECIMEN INFORMATION: Tissue Source: Thoracentesis fluid Clinical Info: Pleural effusion Specimen Number: [id number] CPT code: 93116,26181h7 METHODOLOGY: Deparaffinized sections of prefer/formalin-fixed tissue or PAP/DQ stained slides are incubated with monoclonal/polyclonal antibodies/oligonucleotide probes. Localization is made via biotin free immunoperoxidase method. Appropriate controls are performed and reacted as expected. Results on target cell population are indicated in the following table: RESULTS: ANTIBODY / CLONE RESULT AE1-3 (AE1/AE3/PCK26) positive CK7 (OV-TL12/30) positive CK20 (KS20.8) negative TTF-1 (8G7G3/1) negative Napsin A (Rabbit Polyclonal) negative CALRET (polyclonal) positive CK5-6 (D5 & 1684) negative P40 (BC28) negative P53 (DO-7) negative, null pattern Ki-67 (30-9) positive, low These tests were developed and their performance characteristics determined by [facility]. They may not have been cleared or approved by the U.S. Food and Drug Administration. The FDA has determined that such clearance or approval is not necessary. The above immunohistochemical/dualISH markers are ordered and reviewed by the Pathologist. INTERPRETATION: Thoracentesis fluid (cytospin): No evidence of malignancy. AM/mr 04/29/2024
--- NOTE | 2024-04-25 | FLU_PTH ---
PATIENT: KERRY VALDES LOC: [facility] U#:[id number] AGE/SX: 78/M ROOM: [facility] RE04/24/[address]: Dr. Marcelo Boyd MD : 1945 BED: 1 DIS: 04/27/2024 SPEC #: [id number] RECD: 04/25/24 09:35 STATUS: KYLE REQ #: [id number] YO: 04/25/24 00:[address]: Marcelo Boyd DEPT: CYTOLOGY RECD BY: Jackelyn Greenberg ENTERED: 04/25/24 09:36 SP TYPE: Fluid OTHR DR: DO Dr. Bryan Kenyon MD Dr. Jyothi Gudla, MD Tissues: Pleural fluid, NOS Procedures: Special Stain Group II Special Stain Group I Mucicarmine Stain (control) Surgery Specimen Level IV Cytospin Fluid HEADER OPERATION: Thoracentesis fluid- left PRE-OP DIAGNOSIS: Pleural effusion- left TISSUE SUBMITTED: Thoracentesis fluid for cytology DIAGNOSIS CYTOLOGY Thoracentesis fluid for cytology (cytospin and cellblock): Negative for malignant cells. See comment. CHRIS/ 04/29/2024 COMMENT Immunohistochemistry ([id number]) supports the above diagnosis. Mucin stain with matched control supports the above diagnosis. CYTOLOGY STUDY Slides are reviewed. CYTOLOGY GROSS Received is 85 ml of spring-cloudy fluid labeled with the patient's name and and designated per the requisition as Thoracentesis fluid. Submitted for cytology preparation including cell block. Mr 04/25/2024 TC:5 CPT: 28015,92050
[2024-04-25 00:07] LABS: Reflex Lactate? Y
[2024-04-25] MEDS: Azithromycin 500 MG in Dextrose 5%-Water (250mL Bag) 250 ML 250 MG IV ×2 (00:32→22:27)
[2024-04-25] MEDS: Furosemide 40 MG/4 ML Vial IV ×3 (00:32→18:16)
[2024-04-25] MEDS: 0.9% Saline Lock 10 ML Syringe IV ×2 (00:33→08:42)
[2024-04-25 01:00] LABS: Lactic Acid 1.1 mmol/L (0.4-1.9)
[2024-04-25] MEDS: Menthol/Lanolin/Calamine/Znox 113 GM Tube 1 APPLIC TOPICAL ×2 (05:18→21:50)
[2024-04-25 06:42] LABS: Hematocrit 29.2 % (40-54); Hemoglobin 9.2 g/dL (13.0-16.5); Mean Corp Hgb Conc 31.5 g/dL (32-36); Mean Corpuscular Hgb 30.6 pg (27.0-32.0); Mean Platelet Vol. 9.9 fl (6.2-12.0); Platelet Count 173 K/mm3 (150-450); RBC Distribution Width CV 17.8 % (11.6-14.6); RBC Distribution Width SD 61.1 fl (35.1-43.9); Red Blood Count 3.01 M/mm3 (4.6-6.2); White Blood Count 4.8 K/mm3 (4.4-11.0)
[2024-04-25 07:17] LABS: Anion Gap 3 (5-15); BUN 18 mg/dL (7-18); BUN/Creat Ratio 18.3 RATIO (10-20); Calcium,Total 8.3 mg/dL (8.5-10.1); Chloride 110 mmol/L (98-107); Creatinine, Serum 0.98 mg/dL (0.70-1.30); EST Glomerular Filtration Rate 78 mL/min (>60); Est Glom Filt Rate - Afr Amer 94 mL/min (>60); Estimated Creatinine Clearance 66.58 ml/min; Glucose 90 mg/dL (74-106); Potassium 4.2 mmol/L (3.5-5.1); Sodium Level 141 mmol/L (136-145)
--- NOTE | 2024-04-25 07:57 | PCM.PN.HOSP ---
Reason for Visit Reason for Visit: Diagnoses Chronic atrial fibrillation, unspecified (04/24/24) Pleural effusion, not elsewhere classified (04/24/24) Bradycardia, unspecified (04/24/24) Weakness (04/24/24) Subjective Subjective Patient is a 78-year-old gentleman resident of [facility] care facility who was brought in with progressive shortness of breath. Was found to have new bilateral pulmonary effusions. Admitted to regular nursing floor for further management Objective Data Objective Data Vital Signs: Vital Signs Temp Pulse Resp BP Pulse Ox O2 Del Method 97.2 F L 43 L 18 127/56 H 95 Room Air 04/25/24 03:30 04/25/24 03:30 04/25/24 03:30 04/25/24 03:30 04/25/24 07:36 04/25/24 07:36 Oxygen Delivery Method Room Air Weight: 86.5 kg Body Mass Index (BMI) 28.1 Intake & Output: Intake and Output for Last 24 Hours 04/23/24 04/24/24 04/25/24 23:59 23:59 23:59 Intake Total 535 / 535 305 / 305 Output Total 900 / 900 Balance 535 / 535 -595 / -595 Lab / Micro Data 04/25/24 06:16 04/25/24 06:16 Labs: Laboratory Results - last 24 hr 04/24/24 18:55: WBC 6.6, RBC 3.26 L, Hgb 10.0 L, Hct 31.9 L, MCV 97.9 H, MCH 30.7, MCHC 31.3 L, RDW Std Deviation 61.1 H, RDW Coeff of Sophie 17.8 H, Plt Count 187, MPV 10.3, Immature Gran % (Auto) 0.600, Neut % (Auto) 74.8 H, Lymph % (Auto) 16.2 L, [place] % (Auto) 7.3, Eos % (Auto) 0.6, Baso % (Auto) 0.5, Absolute Neuts (auto) 4.9, Absolute Lymphs (auto) 1.07, Nucleated RBC % 0, PT 13.8, INR 1.1, APTT 32.5, Sodium 143, Potassium 4.5, Chloride 111 H, Carbon Dioxide 31.0, Anion Gap 1 L, BUN 16, Creatinine 1.14, Estim Creat Clear Calc 58.47, Est GFR (MDRD) Af Amer 80, Est GFR (MDRD) Non-Af 66, BUN/Creatinine Ratio 14.0, Glucose 131 H, Calcium 8.5, Total Bilirubin 0.20, AST 27, ALT 23, Alkaline Phosphatase 148 H, Troponin I High Sens 7, B-Natriuretic Peptide 395.6 H, Total Protein 5.8 L, Albumin 2.1 L, Globulin 3.7, Albumin/Globulin Ratio 0.6 L 04/24/24 19:55: Lactic Acid 2.0 04/24/24 20:25: Urine Color Yellow, Urine Clarity Clear, Urine pH 5.0, Ur Specific [place] 1.015, Urine Protein 30 H, Urine Glucose (UA) Normal, Urine Ketones Negative, Urine Occult Blood Negative, Urine Nitrite Negative, Urine Bilirubin Negative, Urine Urobilinogen Normal, Ur Leukocyte Esterase 25 H, Urine RBC 0-5 SEEN, Urine WBC 0-5 SEEN, Ur Squamous Epith Cells 0-5 SEEN, Ur Transition Epith Cell 0-5 SEEN, Urine Bacteria 1+, Hyaline Casts 5-10 SEEN, Urine Mucus 1+ 04/25/24 00:25: Lactic Acid 1.1 04/25/24 06:16: WBC 4.8, RBC 3.01 L, Hgb 9.2 L, Hct 29.2 L, MCV 97.0 H, MCH 30.6, MCHC 31.5 L, RDW Std Deviation 61.1 H, RDW Coeff of Sophie 17.8 H, Plt Count 173, MPV 9.9, Sodium 141, Potassium 4.2, Chloride 110 H, Carbon Dioxide 28.0, Anion Gap 3 L, BUN 18, Creatinine 0.98, Estim Creat Clear Calc 66.58, Est GFR (MDRD) Af Amer 94, Est GFR (MDRD) Non-Af 78, BUN/Creatinine Ratio 18.3, Glucose 90, Calcium 8.3 L Radiography Diagnostic Testing: Radiology Impression Brain CT 04/24/24 19:27 IMPRESSION: No CT evidence of acute intracranial pathology or significant change prior CT. Electronically Signed: Jeff Faulkner DO at 20:25 EDT , Chest CT 04/24/24 19:27 IMPRESSION: 1. Large left and medium right pleural effusions with associated airspace which may be in part atelectasis or pneumonia. Additional alveolar opacities in the pneumatized right lung further suggesting pneumonia. 2. Apparent nodules in the right upper lobe, the largest measuring approximately 1 cm. These may be infectious given areas of pneumonia. Fleischner Society Guidelines (MacMahon, et al. Radiology 2017; 284(1):228-43) suggest the following. For low-risk patients recommend follow-up chest CT at 3-6 months. If unchanged consider an additional follow-up CT at 18-24 months. For high-risk patients initial follow-up chest CT at 3-6 months and if unchanged, 18-24 months. 3. Mild cardiomegaly and trace pericardial effusion. Coronary artery calcifications and/or stents. Electronically Signed: Jeff Faulkner DO at 20:29 EDT , Rhythm Strip Rhythm Strip: A-fib Rate: 40 (Irregular) Ectopy: None Physical Exam Narrative GENERAL: cooperative HEENT: Atraumatic; normocephalic EYES; Anicteric, Normal Conjunctiva NECK; supple, normal thyroid, RESPIRATORY: Diminished to auscultation CARDIOVASCULAR: Regular S1 S2, GI: soft, normoactive bowel sounds, : No Renal angle tenderness; EXTREMITIES: edema, no clubbing, MUSCULOSKELETAL: no muscle wasting NEURO: Awake; no lateralizing signs. SKIN: No Rash PSYCH; Flat affect Assessment & Plan Assessment/Plan (1) Bilateral pleural effusion: (2) Chronic a-fib: (3) Bradycardia: (4) Generalized weakness: PLAN: Plan Patient is a 78-year-old gentleman resident of extended care facility who was brought in with progressive shortness of breath. Was found to have new bilateral pulmonary effusions. Admitted to regular nursing floor for further management 1. Acute on chronic congestive heart failure with preserved ejection fraction ? Patient presented with progressive shortness of breath and was found to have bilateral pleural effusion on chest checks x-ray. Admitted to a monitored bed managed with strict input and output, daily weight, low-sodium diet, as well as furosemide 2. Bilateral pleural effusion ? Secondary to acute congestive heart failure management as discussed above in addition an order was placed for patient to undergo ultrasound guided thoracocentesis with fluid analysis sent 3. Paroxysmal A-fib with slow ventricular response ? Patient be monitored on continuous telemetry 4. Dyslipidemia -Patient is on statin therapy, continued at home dose 5. Hypertension - Blood pressure controlled, home medications continued with dose adjustment as needed 6. GERD ? On PPI 7. Seizure disorder ? Patient is on Keppra 8. Coronary artery disease ? With previous PCI with stenting in 2020 9. Physical deconditioning - Requested for PT OT eval and social security benefits interviewer to assist with discharge planning 9. Dementia ? Supportive care 11. Anemia - Secondary to chronic disorder monitoring H&H and transfuse if patient becomes symptomatic or hemoglobin falls below 7 12. COPD ? Currently not in exacerbation aerosol treatment as needed 13. DVT prophylaxis - On enoxaparin Time spent in the patient's overall evaluation,decision-making process, review of diagnostic data, adjustment of management, discussion with other providers, nursing nursing and ancillary staff involved in patient's care documentation, 52 Minutes Charges/Coding Visit Charges Inpatient E&M: 56338 Init Hosp L3
[2024-04-25] MEDS: Lidocaine 2% (20 ml mdv) 20 ML Vial INFILT (08:09)
--- NOTE | 2024-04-25 08:25 | RAD_ITS ---
STUDY: X-RAY CHEST REASON FOR EXAM: Male, 78 years old. post thoracentesis TECHNIQUE: Inspiratory and expiratory frontal views COMPARISON: 04/02/2024 FINDINGS: Poor inspiration with some bibasilar atelectasis. Small left pleural effusion but no pneumothorax. Normal size heart. Normal mediastinum and vandana. Normal visualized pulmonary arteries. Normal visualized aortic arch and descending thoracic aorta. Normal visualized thoracic spine. Normal visualized ribs, clavicles, and shoulders. There is no demonstrated abnormality of the visualized soft tissue structures of the upper abdomen. RAD/Chest Insp/Exp 2 View IMPRESSION: Small left pleural effusion but no pneumothorax. Electronically Signed: Diogo Hendricks MD at 9:03 EDT ,
--- NOTE | 2024-04-25 08:26 | PCM.OP.PRO ---
Procedure Report Date of Procedure: 04/25/24 Assessment & Plan Assessment/Plan (1) Bilateral pleural effusion: PLAN: PROCEDURE: Ultrasound Guided Thoracentesis ORDERING PROVIDER: Dr. Rome INDICATION: Male, 78 years old. Left pleural effusion. PROVIDER: AMBER Conner PROCEDURE: The risks, benefits, and alternatives to the procedure were explained to the patient and daughter over the phone. The specific risks of bleeding, infection, and pneumothorax requiring chest tube insertion were discussed and accepted. Written informed consent was obtained. The patient was placed in the sitting, upright position. Ultrasonographic evaluation of the bilateral lower pleural spaces was carried out. An adequate pocket was identified in the left lower pleural space.The overlying skin was prepped and draped in sterile fashion. 2% lidocaine was administered subcutaneously for local anesthesia. Under ultrasound guidance, a 5-Belarusian thoracentesis needle/catheter system was advanced into the left posterior lower pleural fluid collection. 1790 ml of clear yellow colored fluid was drained. 100 and mL of this fluid was collected and sent to laboratory for analysis. The catheter was removed, and a sterile dressing was applied. The patient tolerated the procedure well. A chest x-ray was ordered. IMPRESSION: Successful ultrasound-guided thoracentesis of left pleural effusion. Procedures Radiology Radiology US Procedures: 89017 Thoracentesis
[2024-04-25] MEDS: Aspirin E.C. 81 MG Tablet PO (08:38)
[2024-04-25] MEDS: Ensure Plus High Protein 120 ML LIQUID PO ×2 (08:38→18:19)
[2024-04-25] MEDS: Ascorbic Acid 500 MG Tablet PO (08:41)
[2024-04-25] MEDS: Enoxaparin 40 MG/0.4 ML Syringe SC (08:41)
[2024-04-25] MEDS: Cholecalciferol (Vit D3) 125 MCG CAPSULE (5,000 UNITS) PO (08:42)
[2024-04-25] MEDS: Cyanocobalamin 500 MCG Tablet PO (08:42)
[2024-04-25] MEDS: Pantoprazole Sodium 20 MG Tablet PO (08:42)
--- NOTE | 2024-04-25 08:54 | NURSING ---
pt to x ray and returned for thoracentesis left-169 removed-drsg d&i to left chest.-no crepetis felt
[2024-04-25 09:18] LABS: Pathologist Comment/Body Fluid May follow
--- NOTE | 2024-04-25 09:26 | CASEMGMT ---
Social Work SW met w/pt, he is awake and alert, slow to respond. He is agreeable for SW to check w/his daughter in regard to discharge plan. SW called daughter Urban in regard to discharge plan. She confirms wants pt to return to [facility], does not need a SNF list at this time. SW inquired if pt is there under his insurance still. She states that they are working it out for the Medicaid, though she is not clear on if pt is there under [place] or under pending Medicaid. Updates will be sent to [facility] and will get clarification on if pt is there under [place] or pending Medicaid. SHEKHAR Albrecht
[2024-04-25 09:39] LABS: LDH,Body Fluid 95 Units/L (Not Establ.); Protein, Body Fluid 2.2 g/dL (Not Establ.)
[2024-04-25 09:49] LABS: Body Fluid Mononuclear WBC # 0.639 10^3/uL; Body Fluid Mononuclear WBC % 72.7 %; Body Fluid Polynuclear WBC % 27.3 %; Body Fluid Total Cells Counted 0.968 10^3/ul; Red Cell Count/Body Fluid 0.003 10^6/ul; White Blood Count/Body Fluid 0.879 10^3/uL
--- NOTE | 2024-04-25 10:10 | CASEMGMT ---
Addendum entered by Lillian Hollis 04/25/24 10:57: [facility] received notification from insurance that pt will need a new auth to return. updated. Lillian Hollis DC Planning Asst. Addendum entered by Lillian Hollis 04/25/24 10:19: Per [facility], patient may return under his current auth that is good until 04/30. updated. Lillian Hollis DC Planning Asst. Original Note: Discharge Planning Updates sent to [facility] via [employer]. Asked if precert is needed and requested wknd phone/fax. Lillian Hollis DC Planning Asst.
[2024-04-25 10:49] LABS: Appearance/Body Fluid CLEAR; Auto B Fluid Analyzer BKGD Ct COUNTS W/IN LIMITS (W/IN LIMITS); Color/Body Fluid YELLOW; Lymphocytes 28 %; Macrophages 40 %; Mesothelial Cells 1 %; Monocytes 1 %; Neutrophil (Segs) 30 %; Source- Body Fluid THORACENTESIS
--- NOTE | 2024-04-25 11:25 | PCM.CONS.C ---
Assessment & Plan Assessment/Plan (1) Chronic a-fib: PLAN: Continue present management. (2) Bradycardia: PLAN: Unclear if this is symptomatic. Continue telemonitoring at this time. No definite indication for pacemaker at this time. Discussed this with the patient and also called his daughter per his request and discussed with her as well. (3) Encephalopathy: QUALIFIERS: Encephalopathy type: unspecified encephalopathy Qualified Code(s): G93.40 - Encephalopathy, unspecified (4) Bilateral pleural effusion: HPI Consult Data Date of Consult: 04/25/24 HPI Narrative Reason for Consultation: Bradycardia HPI Narrative: KERRY VALDES, is a 78 M who presents with shortness of breath and pleural effusions. Pleural effusion is being drained. Patient is being treated with IV Lasix for possible heart failure with preserved ejection fraction. Cardiology consult was requested as patient was having A-fib with slow ventricular response with a heart rate in the 30s to 40s. Patient is oriented x 3. He answers questions appropriately. He denies any complaints except for right arm pain. In the prior admission patient was having more significant altered mental status and his heart rate was in the 50s to 60s at that time. The last admission earlier this month patient's heart rate was close to 100. Prior to that in January and November of this year he was bradycardic. [facility] Medical History History of Parkinson's disease History of COPD Sick sinus syndrome History of heart failure Orthostatic hypotension Sciatica Personal history of colonic polyps Confusion Fall History of diabetes mellitus Chronic anemia Adult failure to thrive Bradycardia Fall Acute alteration in mental status CHI (closed head injury) Anemia Essential hypertension Degenerative disk disease Congestive heart failure (CHF) On home oxygen therapy Atrial fibrillation Coronary artery disease Chest pain Lower extremity edema Macrocytic anemia Hallucinations Short-term memory loss Hypoxia Hypertensive urgency Anemia CHF (congestive heart failure) COPD exacerbation Acute respiratory failure with hypoxia Syncope Delirium Orthostatic hypotension Presence of stent in coronary artery (~05/12/21) Atherosclerotic heart disease of [place] coronary artery without angina pectoris HLD (hyperlipidemia) Anemia Vertigo Degenerative disc disease, lumbar Anxiety Diabetes GERD (gastroesophageal reflux disease) Former smoker Parkinson's disease Altered mental status Back pain Hypertension Home Medications ?Medication ?Instructions ?Recorded ?Last Taken ?Type aspirin 81 mg tablet,delayed 81 mg PO DAILY [facility] 08/16/23 02/16/24 History release (Bertin Low Dose Aspirin) atorvastatin 20 mg tablet 20 mg PO QHS CHOLESTEROL #90 tabs 08/16/23 Unknown Rx cyanocobalamin (vitamin B-12) 500 mcg PO DAILY SUPPLEMENT 02/06/24 Unknown History 1,000 mcg tablet albuterol sulfate 2.5 mg/3 mL 2.5 mg (3 mL) inhalation Q6H PRN 02/14/24 Unknown Rx (0.083 %) solution for nebulization SHORTNESS OF BREATH/WHEEZING #0 mL folic acid 1 mg tablet 1 mg PO DAILYCM #0 tabs 02/14/24 02/16/24 Rx food supplemt, lactose-reduced 120 ml PO 4X/DAY #0 mL 02/14/24 02/16/24 Rx 0.08 gram-1.5 kcal/mL oral liquid (Ensure Plus High Protein) lisinopril 20 mg tablet 20 mg PO DAILY #0 tabs 02/14/24 Unknown Rx omeprazole 20 mg capsule,delayed 20 mg PO DAILY 02/16/24 Unknown History release ferrous sulfate 325 mg (65 mg 325 mg PO DAILY #90 tabs 02/27/24 Unknown Rx iron) tablet nifedipine 30 mg tablet,extended 30 mg PO DAILY #90 tabs 02/27/24 Unknown Rx release 24 hr bisacodyl 10 mg rectal suppository 10 mg AL DAILY PRN constipation 04/02/24 Unknown History dextrose 40 % oral gel (Gluco 1 ea PO PRN PRN hypoglycemia 04/02/24 Unknown History Burst) donepezil 10 mg tablet 10 mg PO QHS DEMENTIA 04/02/24 Unknown History glucagon 1 mg/0.2 mL subcutaneous 1 mg subcut PRN PRN hypoglycemia 04/02/24 Unknown History auto-injector levetiracetam 500 mg tablet 500 mg PO BID 04/02/24 Unknown History (Keppra) magnesium hydroxide 400 mg/5 mL 30 ml PO DAILY PRN constipation 04/02/24 Unknown History oral suspension melatonin 1 mg chewable tablet 1 mg PO QHS INSOMNIA 04/02/24 Unknown History (Children's Sleep (melatonin)) sennosides 8.6 mg-docusate sodium 2 tab-cap PO DAILY PRN constipation 04/02/24 Unknown History 50 mg capsule (Senna Plus) menthol 0.44 %-zinc oxide 20.6 % 1 applic topical TID #0 grams 07/15/24 Unknown Rx topical ointment (Calmoseptine) ascorbate calcium (vitamin C) 500 500 mg PO DAILY 04/24/24 Unknown History mg tablet cholecalciferol (vitamin D3) 125 5,000 unit PO DAILY 04/24/24 Unknown History mcg (5,000 unit) capsule doxycycline hyclate 100 mg capsule 100 mg PO DAILY 04/24/24 Unknown History multivitamin 1 tab PO DAILY 04/24/24 Unknown History Allergy/AdvReac Type Severity Reaction Status Date / Time cat dander (cats) Allergy Mild Rash Verified 02/26/24 01:05 Surgical History History of coronary artery stent placement Presence of coronary angioplasty implant and graft (~05/12/21) Social History household members: spouse housing: senior care Smoking Status: Former smoker alcohol intake: never substance use type: does not use Physical Exam Const alert and oriented x3 HEENT normocephalic Eyes no scleral icterus Cardio Cardio Narrative: Irregular rhythm Extremity no pedal edema Risk Stratification Risk Stratification Applicable: No Charges/Coding Visit Charges Inpatient E&M: 21617 Init Hosp L2 Objective Data Vital Signs: Vital Signs Temp Pulse Resp BP Pulse Ox O2 Del Method 97.8 F 63 18 144/85 H 94 Room Air 04/25/24 08:57 04/25/24 08:58 04/25/24 08:58 04/25/24 08:57 04/25/24 08:57 04/25/24 08:58 Oxygen Delivery Method Room Air Weight: 190 lb 11.198 oz Body Mass Index (BMI) 28.1 Intake & Output: Intake and Output for Last 24 Hours 04/23/24 04/24/24 04/25/24 23:59 23:59 23:59 Intake Total 535 / 535 555 / 555 Output Total 1500 / 1500 Balance 535 / 535 -945 / -945 Lab / Micro Data 04/25/24 06:16 04/25/24 06:16 Labs: Laboratory Results - last 24 hr 04/24/24 08:26: Fluid Total Protein 2.2, Fluid LDH 95 04/24/24 18:55: WBC 6.6, RBC 3.26 L, Hgb 10.0 L, Hct 31.9 L, MCV 97.9 H, MCH 30.7, MCHC 31.3 L, RDW Std Deviation 61.1 H, RDW Coeff of Sophie 17.8 H, Plt Count 187, MPV 10.3, Immature Gran % (Auto) 0.600, Neut % (Auto) 74.8 H, Lymph % (Auto) 16.2 L, [place] % (Auto) 7.3, Eos % (Auto) 0.6, Baso % (Auto) 0.5, Absolute Neuts (auto) 4.9, Absolute Lymphs (auto) 1.07, Nucleated RBC % 0, PT 13.8, INR 1.1, APTT 32.5, Sodium 143, Potassium 4.5, Chloride 111 H, Carbon Dioxide 31.0, Anion Gap 1 L, BUN 16, Creatinine 1.14, Estim Creat Clear Calc 58.47, Est GFR (MDRD) Af Amer 80, Est GFR (MDRD) Non-Af 66, BUN/Creatinine Ratio 14.0, Glucose 131 H, Calcium 8.5, Total Bilirubin 0.20, AST 27, ALT 23, Alkaline Phosphatase 148 H, Troponin I High Sens 7, B-Natriuretic Peptide 395.6 H, Total Protein 5.8 L, Albumin 2.1 L, Globulin 3.7, Albumin/Globulin Ratio 0.6 L 04/24/24 19:55: Lactic Acid 2.0 04/24/24 20:25: Urine Color Yellow, Urine Clarity Clear, Urine pH 5.0, Ur Specific [place] 1.015, Urine Protein 30 H, Urine Glucose (UA) Normal, Urine Ketones Negative, Urine Occult Blood Negative, Urine Nitrite Negative, Urine Bilirubin Negative, Urine Urobilinogen Normal, Ur Leukocyte Esterase 25 H, Urine RBC 0-5 SEEN, Urine WBC 0-5 SEEN, Ur Squamous Epith Cells 0-5 SEEN, Ur Transition Epith Cell 0-5 SEEN, Urine Bacteria 1+, Hyaline Casts 5-10 SEEN, Urine Mucus 1+ 04/25/24 00:25: Lactic Acid 1.1 04/25/24 06:16: WBC 4.8, RBC 3.01 L, Hgb 9.2 L, Hct 29.2 L, MCV 97.0 H, MCH 30.6, MCHC 31.5 L, RDW Std Deviation 61.1 H, RDW Coeff of Sophie 17.8 H, Plt Count 173, MPV 9.9, Sodium 141, Potassium 4.2, Chloride 110 H, Carbon Dioxide 28.0, Anion Gap 3 L, BUN 18, Creatinine 0.98, Estim Creat Clear Calc 66.58, Est GFR (MDRD) Af Amer 94, Est GFR (MDRD) Non-Af 78, BUN/Creatinine Ratio 18.3, Glucose 90, Calcium 8.3 L 04/25/24 09:00: Fluid Source THORACENTESIS, Fluid Color YELLOW, Fluid Appearance CLEAR, Fluid WBC 0.879, Fluid RBC 0.003, Fluid Tot Cell Count 0.968, Fld Polynuclear WBCs # 0.240, Fld Polynuclear WBCs % 27.3, Fluid Mononuclear WBCs 0.639, Fld Mononuclear WBCs % 72.7, Fluid Neutrophils 30, Fluid Lymphocytes 28, Fluid Monocytes 1, Fluid Macrophages 40, Fld Mesothelial Cells 1, Fl Pathologist Comment May follow, Fluid Comment 2 SEE COMMENT Rhythm Strip Rhythm Strip: A-fib Rate: 40 (Irregular) Ectopy: None Cardiology Labs/Tests 04/24/24 18:55: WBC 6.6, RBC 3.26 L, Hgb 10.0 L, Hct 31.9 L, MCV 97.9 H, MCH 30.7, MCHC 31.3 L, Plt Count 187, MPV 10.3, Immature Gran % (Auto) 0.600, Neut % (Auto) 74.8 H, Lymph % (Auto) 16.2 L, [place] % (Auto) 7.3, Eos % (Auto) 0.6, Baso % (Auto) 0.5, Absolute Neuts (auto) 4.9, Nucleated RBC % 0, PT 13.8, INR 1.1, APTT 32.5, Sodium 143, Potassium 4.5, Chloride 111 H, Carbon Dioxide 31.0, Anion Gap 1 L, BUN 16, Creatinine 1.14, Est GFR (MDRD) Af Amer 80, Est GFR (MDRD) Non-Af 66, BUN/Creatinine Ratio 14.0, Glucose 131 H, Calcium 8.5, Total Bilirubin 0.20, B-Natriuretic Peptide 395.6 H 04/24/24 19:55: Lactic Acid 2.0 04/24/24 20:25: Urine Color Yellow, Urine Clarity Clear, Urine pH 5.0, Ur Specific [place] 1.015, Urine Protein 30 H, Urine Glucose (UA) Normal, Urine Ketones Negative, Urine Occult Blood Negative, Urine Nitrite Negative, Urine Bilirubin Negative, Urine Urobilinogen Normal, Ur Leukocyte Esterase 25 H, Urine RBC 0-5 SEEN, Urine WBC 0-5 SEEN 04/25/24 00:25: Lactic Acid 1.1 04/25/24 06:16: WBC 4.8, RBC 3.01 L, Hgb 9.2 L, Hct 29.2 L, MCV 97.0 H, MCH 30.6, MCHC 31.5 L, Plt Count 173, MPV 9.9, Sodium 141, Potassium 4.2, Chloride 110 H, Carbon Dioxide 28.0, Anion Gap 3 L, BUN 18, Creatinine 0.98, Est GFR (MDRD) Af Amer 94, Est GFR (MDRD) Non-Af 78, BUN/Creatinine Ratio 18.3, Glucose 90, Calcium 8.3 L Rhythm: EKG: ECHO: Stress Test: Cardiac Cath: PCI: CT Surgery: Holter monitor: EPS: PPM: CXR: Chest CT Scan: Radiography Diagnostic Testing: Radiology Impression Brain CT 04/24/24 19:27 IMPRESSION: No CT evidence of acute intracranial pathology or significant change prior CT. Electronically Signed: Jeff Faulkner DO at 20:25 EDT , Chest CT 04/24/24 19:27 IMPRESSION: 1. Large left and medium right pleural effusions with associated airspace which may be in part atelectasis or pneumonia. Additional alveolar opacities in the pneumatized right lung further suggesting pneumonia. 2. Apparent nodules in the right upper lobe, the largest measuring approximately 1 cm. These may be infectious given areas of pneumonia. Fleischner Society Guidelines (MacMahon, et al. Radiology 2017; 284(1):228-43) suggest the following. For low-risk patients recommend follow-up chest CT at 3-6 months. If unchanged consider an additional follow-up CT at 18-24 months. For high-risk patients initial follow-up chest CT at 3-6 months and if unchanged, 18-24 months. 3. Mild cardiomegaly and trace pericardial effusion. Coronary artery calcifications and/or stents. Electronically Signed: Jeff Faulkner DO at 20:29 EDT , Chest X-Ray 04/25/24 08:25 IMPRESSION: Small left pleural effusion but no pneumothorax. Electronically Signed: Diogo Hendricks MD at 9:03 EDT ,
[2024-04-25 11:51] LABS: Body Fluid QC Type(s) REV
--- NOTE | 2024-04-25 14:24 | CASEMGMT ---
Discharge Planning Updates sent to [facility] via [facility]. Requested precert be submitted. PCU phone number given in the event rec'd over the weekend. Lillian Hollis DC Planning Asst.
--- NOTE | 2024-04-25 14:48 | CASEMGMT ---
Addendum entered by Hansa Willett 04/25/24 16:01: Social Work Precert was attained, pt can return to [facility] should he be ready on the weekend, green sheet on chart. SHEKHAR Albrecht Original Note: Green sheet placed on chart in event precert is attained on the weekend. JARRED AlbrechtS
--- NOTE | 2024-04-25 15:20 | NURSING ---
This RN is taking over care at this time.
--- NOTE | 2024-04-25 16:00 | CASEMGMT ---
Discharge Planning [facility] has obtained auth to admit. SW updated. Lillian Hollis DC Planning Asst.
[2024-04-25] MEDS: Ceftriaxone 1 GM/50 ML BAG IV (21:33)
[2024-04-25] MEDS: Atorvastatin Calcium 20 MG Tablet PO (21:43)
[2024-04-25] MEDS: Donepezil HCl 10 MG Tablet PO (21:49)
[2024-04-26] VITALS (10 sets, daily range): BP systolic 85–134; BP diastolic 43–88; PULSE 38–96; RESP 14–20; TEMP 35.5–36.7; O2SAT 93–100
--- NOTE | 2024-04-26 08:46 | PN.HOSP_ITS ---
Reason for Visit Reason for Visit: Diagnoses Encephalopathy, unspecified (04/24/24) Chronic atrial fibrillation, unspecified (04/24/24) Pleural effusion, not elsewhere classified (04/24/24) Bradycardia, unspecified (04/24/24) Weakness (04/24/24) Subjective Subjective Patient seen telemetry monitoring did not demonstrate significant bradycardia. Patient is on donepezil discontinued. Objective Data Objective Data Vital Signs: Vital Signs Temp Pulse Resp BP Pulse Ox O2 Del Method 98.1 F 38 L 16 134/84 H 97 Room Air 04/26/24 07:42 04/26/24 07:42 04/26/24 07:42 04/26/24 07:42 04/26/24 07:42 04/26/24 07:42 Oxygen Delivery Method Room Air Weight: 86.5 kg Body Mass Index (BMI) 28.1 Intake & Output: Intake and Output for Last 24 Hours 04/24/24 04/25/24 04/26/24 23:59 23:59 23:59 Intake Total 535 / 535 1220 / 1340 120 / 120 Output Total 2000 / 2600 800 / 800 Balance 535 / 535 -780 / -1260 -680 / -680 Lab / Micro Data 04/25/24 06:16 04/25/24 06:16 Labs: Laboratory Results - last 24 hr 04/24/24 08:26: Fluid Total Protein 2.2, Fluid LDH 95 04/25/24 09:00: Fluid Source THORACENTESIS, Fluid Color YELLOW, Fluid Appearance CLEAR, Fluid WBC 0.879, Fluid RBC 0.003, Fluid Tot Cell Count 0.968, Fld Polynuclear WBCs # 0.240, Fld Polynuclear WBCs % 27.3, Fluid Mononuclear WBCs 0.639, Fld Mononuclear WBCs % 72.7, Fluid Neutrophils 30, Fluid Lymphocytes 28, Fluid Monocytes 1, Fluid Macrophages 40, Fld Mesothelial Cells 1, Fl Pathologist Comment May follow, Fluid Comment 2 SEE COMMENT Radiography Diagnostic Testing: Radiology Impression Echocardiogram 04/24/24 23:08 Interpretation Summary The estimated ejection fraction is 70 %. Unable to assess diastolic dysfunction. The left atrium is mildly enlarged. Mild (1+) aortic valve insufficiency. Ordering Physician: Oziel Rome Performed By: Bjorn Denis and Student Chest X-Ray 04/25/24 08:25 IMPRESSION: Small left pleural effusion but no pneumothorax. Electronically Signed: Diogo Hendricks MD at 9:03 EDT , Rhythm Strip Rhythm Strip: A-fib Rate: 40 (Irregular) Ectopy: None Physical Exam Narrative GENERAL: cooperative HEENT: Atraumatic; normocephalic EYES; Anicteric, Normal Conjunctiva NECK; supple, normal thyroid, RESPIRATORY: Diminished to auscultation CARDIOVASCULAR: Regular S1 S2, GI: soft, normoactive bowel sounds, : No Renal angle tenderness; EXTREMITIES: edema, no clubbing, MUSCULOSKELETAL: no muscle wasting NEURO: Awake; no lateralizing signs. SKIN: No Rash PSYCH; Flat affect Assessment & Plan Assessment/Plan (1) Bilateral pleural effusion: (2) Chronic a-fib: (3) Bradycardia: (4) Generalized weakness: PLAN: Plan Patient is a 78-year-old gentleman resident of extended care facility who was brought in with progressive shortness of breath. Was found to have new bilateral pulmonary effusions. Admitted to regular nursing floor for further management 1. Acute on chronic congestive heart failure with preserved ejection fraction ? Patient presented with progressive shortness of breath and was found to have bilateral pleural effusion on chest checks x-ray. Admitted to a monitored bed managed with strict input and output, daily weight, low-sodium diet, as well as furosemide ? 04/26/2024; Patient is in a negative fluid balance of 865ml 2. Bilateral pleural effusion ? Secondary to acute congestive heart failure management as discussed above in addition an order was placed for patient to undergo ultrasound guided thoracocentesis with fluid analysis sent ? 04/26/2024; repeat check surgery following patient procedure did not demonstrate any pneumothorax 3. Paroxysmal A-fib with slow ventricular response ? Patient be monitored on continuous telemetry ? 04/26/2024; patient donepezil discontinued given continuous bradycardia. Patient was seen in consultation by cardiology Dr. Hughes no indication for pacemaker at this point. 4. Dyslipidemia -Patient is on statin therapy, continued at home dose 5. Hypertension - Blood pressure controlled, home medications continued with dose adjustment as needed 6. GERD ? On PPI 7. Seizure disorder ? Patient is on Keppra 8. Coronary artery disease ? With previous PCI with stenting in 2020 9. Physical deconditioning - Requested for PT OT eval and social services coordinator to assist with discharge planning 9. Dementia ? Supportive care 11. Anemia - Secondary to chronic disorder monitoring H&H and transfuse if patient becomes symptomatic or hemoglobin falls below 7 12. COPD ? Currently not in exacerbation aerosol treatment as needed 13. DVT prophylaxis - On enoxaparin Time spent in the patient's overall evaluation,decision-making process, review of diagnostic data, adjustment of management, discussion with other providers, nursing nursing and ancillary staff involved in patient's care documentation, 38 minutes Charges/Coding Visit Charges Inpatient E&M: 37804 Subs Hosp L2
[2024-04-26] MEDS: Cholecalciferol (Vit D3) 125 MCG CAPSULE (5,000 UNITS) PO (10:08)
[2024-04-26] MEDS: Multivitamins,Therapeutic Tablet 1 TABLET PO (10:09)
[2024-04-26] MEDS: Pantoprazole Sodium 20 MG Tablet PO (10:09)
[2024-04-26] MEDS: Folic Acid 1 MG Tablet PO (10:09)
[2024-04-26] MEDS: Cyanocobalamin 500 MCG Tablet PO (10:09)
[2024-04-26] MEDS: Aspirin E.C. 81 MG Tablet PO (10:09)
[2024-04-26] MEDS: Ferrous Sulfate 325 MG Tablet PO (10:09)
[2024-04-26] MEDS: Ascorbic Acid 500 MG Tablet PO (10:09)
[2024-04-26] MEDS: Enoxaparin 40 MG/0.4 ML Syringe SC (10:10)
[2024-04-26] MEDS: 0.9% Saline Lock 10 ML Syringe IV ×2 (10:10→17:33)
[2024-04-26] MEDS: Furosemide 40 MG/4 ML Vial IV ×2 (10:10→17:34)
[2024-04-26] MEDS: Ensure Plus High Protein 120 ML LIQUID PO ×4 (10:12→20:56)
[2024-04-26] MEDS: Menthol/Lanolin/Calamine/Znox 113 GM Tube 1 APPLIC TOPICAL ×2 (12:21→20:54)
--- NOTE | 2024-04-26 14:56 | PN.CARD_ITS ---
Subjective Subjective Patient responds to questions appropriately. However he is somewhat confused today. His heart rate at the time of evaluation was in the high 40s to low 50s. Telemetry did reveal episodes of significant bradycardia with a heart rate in the low 30s with R-R interval sometimes going a little over 3 seconds. Objective Data Vital Signs: Vital Signs Temp Pulse Resp BP Pulse Ox O2 Del Method 98.0 F 68 14 127/65 H 98 Room Air 04/26/24 12:00 04/26/24 12:00 04/26/24 12:00 04/26/24 12:00 04/26/24 12:00 04/26/24 14:00 Oxygen Delivery Method Room Air Weight: 190 lb 11.198 oz Body Mass Index (BMI) 28.1 Intake & Output: Intake and Output for Last 24 Hours 04/24/24 04/25/24 04/26/24 23:59 23:59 23:59 Intake Total 535 / 535 1220 / 1340 240 / 240 Output Total 2000 / 2600 850 / 850 Balance 535 / 535 -780 / -1260 -610 / -610 Lab / Micro Data 04/25/24 06:16 04/25/24 06:16 Micro: Microbiology 04/24/24 20:25 Urine, Catheterized Urine Culture - Final Culture exhibits no growth. Rhythm Strip Rhythm Strip: A-fib Rate: 40 (Irregular) Ectopy: None Cardiology Labs/Tests Rhythm: EKG: ECHO: Stress Test: Cardiac Cath: PCI: CT Surgery: Holter monitor: EPS: PPM: CXR: Chest CT Scan: Physical Exam Const alert HEENT normocephalic Resp normal respiratory effort Cardio Cardio Narrative: Irregular rhythm Assessment & Plan Assessment/Plan (1) Chronic a-fib: PLAN: Continue present management. (2) Bradycardia: PLAN: Unclear if this is symptomatic. Continue telemonitoring at this time. No definite indication for pacemaker at this time. Discussed this with the patient and also called his daughter yesterday per his request and discussed with her as well. (3) Encephalopathy: QUALIFIERS: Encephalopathy type: unspecified encephalopathy Q ualified Code(s): G93.40 - Encephalopathy, unspecified (4) Bilateral pleural effusion: Charges/Coding Visit Charges Inpatient E&M: 92657 Subs Hosp L1
[2024-04-26] MEDS: Ceftriaxone 1 GM/50 ML BAG IV (20:54)
[2024-04-26] MEDS: Atorvastatin Calcium 20 MG Tablet PO (20:58)
[2024-04-26] MEDS: Azithromycin 500 MG in Dextrose 5%-Water (250mL Bag) 250 ML 250 MG IV (22:06)
[2024-04-27] VITALS: BP 119/75; PULSE 58; RESP 18; TEMP 35.6; O2SAT 95
[2024-04-27 04:16] VITALS: BP 128/80; PULSE 59; RESP 18; TEMP 35.4; O2SAT 98
[2024-04-27] MEDS: Menthol/Lanolin/Calamine/Znox 113 GM Tube 1 APPLIC TOPICAL (05:24)
[2024-04-27 07:35] VITALS: O2SAT 97
--- NOTE | 2024-04-27 08:36 | TREXTCAR_ITS ---
Diet Diet Order/Speech Therapy: 04/24/24 23:08 Diet: Cardiac - Heart Healthy Food consistency:: Pureed Liquid Consistency:: Regular/Thin Therapies Physical Therapy: Eval and Treat Occupational Therapy: Eval and Treat Problem/Diagnosis (1) Chronic a-fib: Status: Chronic Code(s): I48.20 - Chronic atrial fibrillation, unspecified (2) Bradycardia: Status: Acute Code(s): R00.1 - Bradycardia, unspecified (3) Encephalopathy: Status: Acute Code(s): G93.40 - Encephalopathy, unspecified (4) Bilateral pleural effusion: Status: Acute Code(s): J90 - Pleural effusion, not elsewhere classified Plan Patient is a 78-year-old gentleman resident of extended care facility who was brought in with progressive shortness of breath. Was found to have new bilateral pulmonary effusions. Admitted to regular nursing floor for further management 1. Acute on chronic congestive heart failure with preserved ejection fraction ? Patient presented with progressive shortness of breath and was found to have bilateral pleural effusion on chest checks x-ray. Admitted to a monitored bed managed with strict input and output, daily weight, low-sodium diet, as well as furosemide ? 04/26/2024; Patient is in a negative fluid balance of 865ml 2. Bilateral pleural effusion ? Secondary to acute congestive heart failure management as discussed above in addition an order was placed for patient to undergo ultrasound guided thoracocentesis with fluid analysis sent ? 04/26/2024; repeat check surgery following patient procedure did not demonstrate any pneumothorax 3. Paroxysmal A-fib with slow ventricular response ? Patient be monitored on continuous telemetry ? 04/26/2024; patient donepezil discontinued given continuous bradycardia. Patient was seen in consultation by cardiology Dr. Hughes no indication for pacemaker at this point. 4. Dyslipidemia -Patient is on statin therapy, continued at home dose 5. Hypertension - Blood pressure controlled, home medications continued with dose adjustment as needed 04/27/2024; patient was on lisinopril as well as nifedipine discontinued given his relatively low blood pressure 6. GERD ? On PPI 7. Questionable seizure disorder ? Per family there is no previous documentation of any seizure activity patient was on Keppra dose was discontinued. 8. Coronary artery disease ? With previous PCI with stenting in 2020 9. Physical deconditioning - Requested for PT OT eval and social service coordinator to assist with discharge planning 9. Dementia ? Supportive care ? Patient was on donepezil discontinued given bradycardia 11. Anemia - Secondary to chronic disorder monitoring H&H and transfuse if patient becomes symptomatic or hemoglobin falls below 7 12. COPD ? Currently not in exacerbation aerosol treatment as needed 13. DVT prophylaxis - On enoxaparin 14. Pneumonia - Suspected to be secondary to streptococcal pneumonia, Patient placed on Rocephin and Zithromax and placed on oxygen titrated to keep Pulse Ox greater than 90. Patient was discharged on cefdinir as well as Zithromax Time spent in the patient's overall evaluation,decision-making process, review of diagnostic data, adjustment of management, discussion with other providers, nursing nursing and ancillary staff involved in patient's care documentation, 38 minutes Allergies/Procedures Done in Hospital Allergies cat dander (cats) Allergy (Mild, Verified 02/26/24 01:05) Rash Type of Care/Length of Stay Estimated LOS: More Than 30 Days Type of Care Needed: Skilled Rehab Potential: Fair Prognosis: Fair Additional Orders/Day of Discharge Day of Discharge: 04/27/24 Dietary and Speech Recommendations Dietitian Recommendations/Changes: Continue cardiac: heart healthy diet and 120ml Ensure plus HP QID with [facility]. D/C 120 Ensure Clear TID with [facility] d/t already receiving EPHP at [facility]. Reviewed and approved by Lisa Garcia RD, LD Discharge Plan Admission Admit Date/Time: 04/24/24 21:55 Attending Provider: Marcelo Boyd Primary Care Provider: Lynnette Erazo Consulting Providers: Bryan Cameron; Oziel Rome Discharge Orders/Prescriptions Prescriptions: New acetaminophen 325 mg Tablet 650 mg PO Q6H PRN PRN (Reason: Pain 1-10 Or Fever>100.7) Qty: 0 0RF furosemide [Lasix] 40 mg tablet 40 mg PO DAILY Qty: 60 0RF cefdinir 300 mg capsule 300 mg PO BID Qty: 10 0RF azithromycin 500 mg tablet 500 mg PO DAILY 3 Days Qty: 3 0RF Continued atorvastatin 20 mg tablet 20 mg PO QHS Qty: 90 3RF ferrous sulfate 325 mg (65 mg iron) tablet 325 mg PO DAILY Qty: 90 3RF aspirin [Bertin Low Dose Aspirin] 81 mg tablet,delayed release (DR/EC) 81 mg PO DAILY cyanocobalamin (vitamin B-12) 1,000 mcg tablet 500 mcg PO DAILY albuterol sulfate 2.5 mg /3 mL (0.083 %) Solution For Nebulization 2.5 mg inhalation Q6H PRN (Reason: SHORTNESS OF BREATH/WHEEZING ) Qty: 0 0RF folic acid 1 mg Tablet 1 mg PO DAILYCM Qty: 0 0RF Ensure Plus High Protein 0.08 gram-1.5 kcal/mL Liquid 120 ml PO 4X/DAY Qty: 0 0RF omeprazole 20 mg capsule,delayed release(DR/EC) 20 mg PO DAILY melatonin [Children's Sleep (melatonin)] 1 mg tablet,chewable 1 mg PO QHS Senna Plus 8.6-50 mg capsule 2 tab-cap PO DAILY PRN (Reason: constipation) bisacodyl 10 mg suppository 10 mg [place] DAILY PRN (Reason: constipation) dextrose [Gluco Burst] 40 % gel 1 ea PO PRN PRN (Reason: hypoglycemia) Rx Instructions: until symptoms of low blood sugar are controlled glucagon 1 mg/0.2 mL auto-injector 1 mg subcut PRN PRN (Reason: hypoglycemia) magnesium hydroxide 400 mg/5 mL suspension 30 ml PO DAILY PRN (Reason: constipation) menthol-zinc oxide [Calmoseptine] 0.44-20.6 % Ointment 1 applic topical TID Qty: 0 0RF Protocol: *Topical Application Instructions APPLICATION INSTRUCTIONS: apply to buttocks bilat multivitamin Tablet 1 tab PO DAILY ascorbate calcium (vitamin C) 500 mg tablet 500 mg PO DAILY cholecalciferol (vitamin D3) 125 mcg (5,000 unit) capsule 5,000 unit PO DAILY Discontinued nifedipine 30 mg tablet extended release 24hr 30 mg PO DAILY Qty: 90 3RF lisinopril 20 mg Tablet 20 mg PO DAILY Qty: 0 0RF donepezil 10 mg tablet 10 mg PO QHS levetiracetam [Keppra] 500 mg tablet 500 mg PO BID doxycycline hyclate 100 mg capsule 100 mg PO DAILY Referrals / Follow Up: Jasson England MD [Non-Staff] - Within 2 Weeks Lynnette Erazo MD [Primary Care Provider] - Disposition Disposition (needs filled in before D/C Order can be placed): Group Home Facility (3) Encephalopathy Qualifiers: Encephalopathy type: unspecified encephalopathy Qualified Code(s): G93.40 - Encephalopathy, unspecified
--- NOTE | 2024-04-27 08:38 | PCM.DC.SUM ---
Providers Date of Admission: 04/24/24 Date of Discharge: 04/27/24 Primary Care Physician: Dr. Lynnette Erazo MD Consultations 04/24/24 23:08 Consult: Cardiology Routine Consulting Provider: Bryan Cameron Reason for Consult: concern for HF due to slow afib EMERGENT Consult: No MD Notified: Yes Date Notified: 04/25/24 Time Notified: 06:33 Method of Notification: Text Method of Consult:: In-Person Reason For Visit: B/L PLEURAL EFFUSIONS, SLOW AFIB Diagnosis Discharge Diagnosis (1) Chronic a-fib: Status: Chronic Code(s): I48.20 - Chronic atrial fibrillation, unspecified (2) Bradycardia: Status: Acute Code(s): R00.1 - Bradycardia, unspecified (3) Encephalopathy: Status: Acute Code(s): G93.40 - Encephalopathy, unspecified Qualifiers: Encephalopathy type: unspecified encephalopathy Qualified Code(s): G93.40 - Encephalopathy, unspecified (4) Bilateral pleural effusion: Status: Acute Code(s): J90 - Pleural effusion, not elsewhere classified Plan Patient is a 78-year-old gentleman resident of [facility] who was brought in with progressive shortness of breath. Was found to have new bilateral pulmonary effusions. Admitted to regular nursing floor for further management 1. Acute on chronic congestive heart failure with preserved ejection fraction ? Patient presented with progressive shortness of breath and was found to have bilateral pleural effusion on chest checks x-ray. Admitted to a monitored bed managed with strict input and output, daily weight, low-sodium diet, as well as furosemide ? 04/26/2024; Patient is in a negative fluid balance of 865ml ? 04/27/2024; patient responded to diuretic therapy echo obtained during hospitalization demonstrated EF of 70% 2. Bilateral pleural effusion ? Secondary to acute congestive heart failure management as discussed above in addition an order was placed for patient to undergo ultrasound guided thoracocentesis with fluid analysis sent ? 04/26/2024; repeat check surgery following patient procedure did not demonstrate any pneumothorax 3. Paroxysmal A-fib with slow ventricular response ? Patient be monitored on continuous telemetry ? 04/26/2024; patient donepezil discontinued given continuous bradycardia. Patient was seen in consultation by cardiology Dr. Hughes no indication for pacemaker at this point. 4. Dyslipidemia -Patient is on statin therapy, continued at home dose 5. Hypertension - Blood pressure controlled, home medications continued with dose adjustment as needed 04/27/2024; patient was on lisinopril as well as nifedipine discontinued given his relatively low blood pressure 6. GERD ? On PPI 7. Questionable seizure disorder ? Per family there is no previous documentation of any seizure activity patient was on Keppra dose was discontinued. 8. Coronary artery disease ? With previous PCI with stenting in 2020 9. Physical deconditioning - Requested for PT OT eval and clinical social work therapist to assist with discharge planning 9. Dementia ? Supportive care ? Patient was on donepezil discontinued given bradycardia 11. Anemia - Secondary to chronic disorder monitoring H&H and transfuse if patient becomes symptomatic or hemoglobin falls below 7 12. COPD ? Currently not in exacerbation aerosol treatment as needed 13. DVT prophylaxis - On enoxaparin 14. Pneumonia - Suspected to be secondary to streptococcal pneumonia, Patient placed on Rocephin and Zithromax and placed on oxygen titrated to keep Pulse Ox greater than 90. Patient was discharged on cefdinir as well as Zithromax Time spent in the patient's overall evaluation,decision-making process, review of diagnostic data, adjustment of management, discussion with other providers, nursing nursing and ancillary staff involved in patient's care documentation, 38 minutes Medications at Discharge Home Medications aspirin 81 mg tablet,delayed release (Bertin Low Dose Aspirin) 81 mg PO DAILY [facility] 08/16/23 atorvastatin 20 mg tablet 20 mg PO QHS CHOLESTEROL #90 tabs 08/16/23 cyanocobalamin (vitamin B-12) 1,000 mcg tablet 500 mcg PO DAILY SUPPLEMENT 02/06/24 albuterol sulfate 2.5 mg/3 mL (0.083 %) solution for nebulization 2.5 mg (3 mL) inhalation Q6H PRN SHORTNESS OF BREATH/WHEEZING #0 mL 02/14/24 folic acid 1 mg tablet 1 mg PO DAILYCM #0 tabs 02/14/24 food supplemt, lactose-reduced 0.08 gram-1.5 kcal/mL oral liquid (Ensure Plus High Protein) 120 ml PO 4X/DAY #0 mL 02/14/24 omeprazole 20 mg capsule,delayed release 20 mg PO DAILY 02/16/24 ferrous sulfate 325 mg (65 mg iron) tablet 325 mg PO DAILY #90 tabs 02/27/24 bisacodyl 10 mg rectal suppository 10 mg KS DAILY PRN constipation 04/02/24 dextrose 40 % oral gel (Gluco Burst) 1 ea PO PRN PRN hypoglycemia 04/02/24 glucagon 1 mg/0.2 mL subcutaneous auto-injector 1 mg subcut PRN PRN hypoglycemia 04/02/24 magnesium hydroxide 400 mg/5 mL oral suspension 30 ml PO DAILY PRN constipation 04/02/24 melatonin 1 mg chewable tablet (Children's Sleep (melatonin)) 1 mg PO QHS INSOMNIA 04/02/24 sennosides 8.6 mg-docusate sodium 50 mg capsule (Senna Plus) 2 tab-cap PO DAILY PRN constipation 04/02/24 menthol 0.44 %-zinc oxide 20.6 % topical ointment (Calmoseptine) 1 applic topical TID #0 grams 04/14/24 ascorbate calcium (vitamin C) 500 mg tablet 500 mg PO DAILY 04/24/24 cholecalciferol (vitamin D3) 125 mcg (5,000 unit) capsule 5,000 unit PO DAILY 04/24/24 multivitamin 1 tab PO DAILY 04/24/24 acetaminophen 325 mg tablet 650 mg (2 x 325 mg) PO Q6H PRN PRN Pain 1-10 Or Fever>100.7 #0 tabs 04/27/24 azithromycin 500 mg tablet 500 mg PO DAILY 3 days #3 tabs 04/27/24 cefdinir 300 mg capsule 300 mg PO BID #10 caps 04/27/24 furosemide 40 mg tablet (Lasix) 40 mg PO DAILY #60 tabs 04/27/24 Physical Exam Narrative GENERAL: cooperative HEENT: Atraumatic; normocephalic EYES; Anicteric, Normal Conjunctiva NECK; supple, normal thyroid, RESPIRATORY: Diminished to auscultation CARDIOVASCULAR: Regular S1 S2, GI: soft, normoactive bowel sounds, : No Renal angle tenderness; EXTREMITIES: edema, no clubbing, MUSCULOSKELETAL: no muscle wasting NEURO: Awake; no lateralizing signs. SKIN: No Rash PSYCH; Flat affect Weight / BMI Weight Weight: 86.5 kg Body Mass Index (BMI) 28.1 ABG / Lab / Microbiology Data 04/25/24 06:16 04/25/24 06:16 Microbiology: Microbiology 04/24/24 19:55 Blood Culture (Wb) - Right Hand Blood Culture - Preliminary No growth in 48 hours. 04/24/24 20:25 Urine, Catheterized Urine Culture - Final Culture exhibits no growth. D/C Instructions Discharge Diet: 8 Cup Fluid Restriction and 2000 mg Sodium Diet Discharge Activity: Return to Normal Activity Call your doctor if you observe: Fever of 101 or Higher, Shortness of breath, Fainting spells and Chest pain Meaningful Use Info Meaningful Use Meaningful Use Diagnoses (Choose all that apply): CHF CHF FARA/ARB ordered at discharge?: No Reason FARA/ARB not ordered?: Not indicated Documented LVEF (%): 70 Ischemic Stroke Statin Dosing Therapy Reference: STATIN DOSE THERAPY REFERENCE: * Patients > 75 years receive moderate or high dose statin therapy. * Patients 75 years or YOUNGER should receive HIGH intensity statin dose unless contraindicated. You will be required to document reason for non-treatment if statin daily dose does not meet guidelines. HIGH DOSE STATIN THERAPY DAILY Atorvastatin > than or = to 40 mg Rosuvastatin > than or = to 20 mg Amlodipine + Atorvastatin > than or = to 2.5/40 mg Ezetimibe + Simvastatin 10/80 mg Simvastatin 80mg Discharge Plan Admission Admit Date/Time: 04/24/24 21:55 Attending Provider: Marcelo Boyd Primary Care Provider: Lynnette Erazo Consulting Providers: Bryan Cameron; Oziel Rome Discharge Orders/Prescriptions Prescriptions: New acetaminophen 325 mg Tablet 650 mg PO Q6H PRN PRN (Reason: Pain 1-10 Or Fever>100.7) Qty: 0 0RF furosemide [Lasix] 40 mg tablet 40 mg PO DAILY Qty: 60 0RF cefdinir 300 mg capsule 300 mg PO BID Qty: 10 0RF azithromycin 500 mg tablet 500 mg PO DAILY 3 Days Qty: 3 0RF Continued atorvastatin 20 mg tablet 20 mg PO QHS Qty: 90 3RF ferrous sulfate 325 mg (65 mg iron) tablet 325 mg PO DAILY Qty: 90 3RF aspirin [Bertin Low Dose Aspirin] 81 mg tablet,delayed release (DR/EC) 81 mg PO DAILY cyanocobalamin (vitamin B-12) 1,000 mcg tablet 500 mcg PO DAILY albuterol sulfate 2.5 mg /3 mL (0.083 %) Solution For Nebulization 2.5 mg inhalation Q6H PRN (Reason: SHORTNESS OF BREATH/WHEEZING ) Qty: 0 0RF folic acid 1 mg Tablet 1 mg PO DAILYCM Qty: 0 0RF Ensure Plus High Protein 0.08 gram-1.5 kcal/mL Liquid 120 ml PO 4X/DAY Qty: 0 0RF omeprazole 20 mg capsule,delayed release(DR/EC) 20 mg PO DAILY melatonin [Children's Sleep (melatonin)] 1 mg tablet,chewable 1 mg PO QHS Senna Plus 8.6-50 mg capsule 2 tab-cap PO DAILY PRN (Reason: constipation) bisacodyl 10 mg suppository 10 mg [place] DAILY PRN (Reason: constipation) dextrose [Gluco Burst] 40 % gel 1 ea PO PRN PRN (Reason: hypoglycemia) Rx Instructions: until symptoms of low blood sugar are controlled glucagon 1 mg/0.2 mL auto-injector 1 mg subcut PRN PRN (Reason: hypoglycemia) magnesium hydroxide 400 mg/5 mL suspension 30 ml PO DAILY PRN (Reason: constipation) menthol-zinc oxide [Calmoseptine] 0.44-20.6 % Ointment 1 applic topical TID Qty: 0 0RF Protocol: *Topical Application Instructions APPLICATION INSTRUCTIONS: apply to buttocks bilat multivitamin Tablet 1 tab PO DAILY ascorbate calcium (vitamin C) 500 mg tablet 500 mg PO DAILY cholecalciferol (vitamin D3) 125 mcg (5,000 unit) capsule 5,000 unit PO DAILY Discontinued nifedipine 30 mg tablet extended release 24hr 30 mg PO DAILY Qty: 90 3RF lisinopril 20 mg Tablet 20 mg PO DAILY Qty: 0 0RF donepezil 10 mg tablet 10 mg PO QHS levetiracetam [Keppra] 500 mg tablet 500 mg PO BID doxycycline hyclate 100 mg capsule 100 mg PO DAILY Referrals / Follow Up: Jasson England MD [Non-Staff] - Within 2 Weeks Lynnette Erazo MD [Primary Care Provider] - Disposition Disposition (needs filled in before D/C Order can be placed): Senior Living Facility Charges/Coding Visit Charges Inpatient E&M: 31289 Disch Hosp >30min
[2024-04-27 09:39] VITALS: BP 80/54; PULSE 55; RESP 18; TEMP 36.6; O2SAT 93
[2024-04-27] MEDS: Ascorbic Acid 500 MG Tablet PO (10:06)
[2024-04-27] MEDS: Cholecalciferol (Vit D3) 125 MCG CAPSULE (5,000 UNITS) PO (10:06)
[2024-04-27] MEDS: Cyanocobalamin 500 MCG Tablet PO (10:06)
[2024-04-27] MEDS: Multivitamins,Therapeutic Tablet 1 TABLET PO (10:06)
[2024-04-27] MEDS: Aspirin E.C. 81 MG Tablet PO (10:06)
[2024-04-27] MEDS: Pantoprazole Sodium 20 MG Tablet PO (10:07)
[2024-04-27] MEDS: Folic Acid 1 MG Tablet PO (10:07)
[2024-04-27 11:12] VITALS: BP 128/54; PULSE 55; RESP 17; TEMP 36.5; O2SAT 97
[2024-04-27] MEDS: Enoxaparin 40 MG/0.4 ML Syringe SC (11:53)
== END 2024-04-27 12:50 | DRG 291 ==
LOC: ED 22:02 → PCU 22:41
PROVIDERS: Admitting Provider Hospitalist; Emergency Provider Emergency Medicine; PCP Internal Medicine; Visit Provider Internal Medicine
DX: I13.0 Hypertensive heart and chronic kidney disease with heart failure and stage 1 through stage 4 chronic kidney disease, or unspecified chronic kidney disease (principal); I50.33 Acute on chronic diastolic (congestive) heart failure; J15.4 Pneumonia due to other streptococci; J91.8 Pleural effusion in other conditions classified elsewhere; I48.19 Other persistent atrial fibrillation; J44.0 Chronic obstructive pulmonary disease with (acute) lower respiratory infection; I95.9 Hypotension, unspecified; F02.80 Dementia in other diseases classified elsewhere, unspecified severity, without behavioral disturbance, psychotic disturbance, mood disturbance, and anxiety; E11.9 Type 2 diabetes mellitus without complications; G20.A1 Parkinson's disease without dyskinesia, without mention of fluctuations; D50.9 Iron deficiency anemia, unspecified; I25.10 Atherosclerotic heart disease of native coronary artery without angina pectoris; R00.1 Bradycardia, unspecified; K21.9 Gastro-esophageal reflux disease without esophagitis; E78.5 Hyperlipidemia, unspecified; I48.0 Paroxysmal atrial fibrillation; R53.81 Other malaise; Z66 Do not resuscitate; Z79.82 Long term (current) use of aspirin; Z79.84 Long term (current) use of oral hypoglycemic drugs; Z87.891 Personal history of nicotine dependence; Z95.1 Presence of aortocoronary bypass graft; Z95.5 Presence of coronary angioplasty implant and graft
CPT/HCPCS: 32555; 36415; 70450; 71046; 71250; 80048; 80053; 81001; 83605; 83615; 83880; 84157; 84484; 85025; 85027; 85610; 85730; 87040; 87086; 88108; 88305; 88312; 88313; 88341; 88342; 89050; 93005; 93306; 97110; 97162; 97165; 97530; 97535; 97802; 97803; 99285; J7030; P9612; Q9957; A4216; J1940

== ENCOUNTER 2024-05-12 17:07 | Inpatient (IN) | payer MEDICARE, SELFPAY ==
[2024-05-12] VITALS (12 sets, daily range): BP systolic 84–116; BP diastolic 47–75; PULSE 50–65; RESP 11–19; TEMP 35.4–36.7; O2SAT 95–100; BMI 26.2; BMI 25.0
--- NOTE | 2024-05-12 18:09 | RAD_ITS ---
EXAM: XR CHEST, 1 VIEW CLINICAL INDICATION: weakness TECHNIQUE: Frontal view of the chest. COMPARISON: 04/25/2024 FINDINGS: LUNGS AND PLEURAL SPACES: Unremarkable. No consolidation or edema. No pneumothorax. No effusion. HEART: Unremarkable. Cardiac silhouette not enlarged. MEDIASTINUM: Central airways and mediastinal contour are unremarkable. BONES/JOINTS: Unremarkable. No acute fracture. SOFT TISSUES: Unremarkable. RAD/Chest 1 View (Portable) IMPRESSION: No radiographic evidence of acute cardiopulmonary disease. Electronically Signed: Nhaid Salazar MD at 19:25 EDT ,
--- NOTE | 2024-05-12 18:09 | CT_ITS ---
EXAM: CT HEAD WITHOUT INTRAVENOUS CONTRAST CLINICAL INDICATION: seziure, headache TECHNIQUE: Multiple axial images were obtained of the head without intravenous contrast. This CT exam was performed using one or more of the following dose reduction techniques: automated exposure control, adjustment of the mA and/or kV according to patient size, and/or use of iterative reconstruction technique. COMPARISON: 04/24/2024 FINDINGS: BRAIN AND EXTRA-AXIAL SPACES: There is mild enlargement of the ventricular system and cortical sulci is stable. There is hypoattenuation in the periventricular white matter. No intra- or extra-axial hemorrhage. No evidence of acute infarct. No intracranial mass or mass effect. There is preservation of the aggarwal/white matter interface. Posterior fossa structures are unremarkable. Basal cisterns are patent. BONES/JOINTS: Unremarkable. No discrete lytic or blastic abnormalities. SINUSES: Unremarkable as visualized. Clear. MASTOID AIR CELLS: Unremarkable. Clear. ORBITS: Visualized globes, extraocular muscles, optic nerves and retrobulbar fat appear unremarkable.
[2024-05-12] MEDS: 0.9% Normal Saline (1000mL) 1,000 ML 1000 ML IV (18:15)
[2024-05-12 18:35] LABS: Absolute Neutrophil Count 4.7 X10^3/uL (2.0-7.7); Basophil# 0.02 X10^3/uL; Basophil% 0.3 % (0-1); Eosinophil# 0.13 X10^3/uL; Eosinophils% 1.9 % (0-5); Hematocrit 33.2 % (40-54); Hemoglobin 10.6 g/dL (13.0-16.5); Mean Corp Hgb Conc 31.9 g/dL (32-36); Mean Corpuscular Hgb 31.5 pg (27.0-32.0); Mean Corpuscular Volume 98.5 fL (80-94); Monocyte# 0.46 X10^3/uL; Monocyte% 6.6 % (0-10); NRBC Flagged by Analyzer 0 % (0-5); Neutrophil # 4.74 X10^3/uL (2.7-7.7); Neutrophil % 67.9 % (47-70); Platelet Count 150 K/mm3 (150-450); RBC Distribution Width CV 18.2 % (11.6-14.6); RBC Distribution Width SD 64.9 fl (35.1-43.9); Red Blood Count 3.37 M/mm3 (4.6-6.2)
--- NOTE | 2024-05-12 18:40 | EDS_ITS ---
HPI History of Present Illness Chief Complaint: GI Bleed Informant: patient and family Narrative Narrative: Patient is a 78-year-old male presenting from intermediate after episode of melena and bright red blood per rectum as well as 2 seizure episodes. Patient r eportedly had a large bowel movement today without was black, thick and tarry. He another bowel movement that was bright red blood per family. He then had seizure episode today where he felt hot. His eyes became fixed and then rolled back in his head and feeling over states that he is arms and legs were stiff and shaking for 4 to 5 minutes. When he came back around he is back to his normal self. He did start complain of a severe headache yesterday and is complained of it today as well. Does not have a history of GI bleed but has a history of anemia and concern for possible GI bleed however was never worked up. Is not any blood thinners. Is not claiming chest pain. States he just does not feel well and feels very weak. No other complaints or concerns reported at this time. No report of any falls or injuries. [facility] Medical History History of Parkinson's disease History of COPD Sick sinus syndrome History of heart failure Orthostatic hypotension Sciatica Personal history of colonic polyps Confusion Fall History of diabetes mellitus Chronic anemia Adult failure to thrive Bradycardia Fall Acute alteration in mental status CHI (closed head injury) Anemia Essential hypertension Degenerative disk disease Congestive heart failure (CHF) On home oxygen therapy Atrial fibrillation Coronary artery disease Chest pain Lower extremity edema Macrocytic anemia Hallucinations Short-term memory loss Hypoxia Hypertensive urgency Anemia CHF (congestive heart failure) COPD exacerbation Acute respiratory failure with hypoxia Syncope Delirium Orthostatic hypotension Presence of stent in coronary artery (~05/12/21) Atherosclerotic heart disease of [place] coronary artery without angina pectoris HLD (hyperlipidemia) Anemia Vertigo Degenerative disc disease, lumbar Anxiety Diabetes GERD (gastroesophageal reflux disease) Former smoker Parkinson's disease Altered mental status Back pain Hypertension Home Medications ?Medication ?Instructions ?Recorded ?Last Taken ?Type aspirin 81 mg tablet,delayed 81 mg PO DAILY HEART HEALTH 08/16/23 02/16/24 History release (Bertin Low Dose Aspirin) atorvastatin 20 mg tablet 20 mg PO QHS CHOLESTEROL #90 tabs 08/16/23 Unknown Rx cyanocobalamin (vitamin B-12) 500 mcg PO DAILY SUPPLEMENT 02/06/24 Unknown History 1,000 mcg tablet albuterol sulfate 2.5 mg/3 mL 2.5 mg (3 mL) inhalation Q6H PRN 02/14/24 Unknown Rx (0.083 %) solution for nebulization SHORTNESS OF BREATH/WHEEZING #0 mL food supplemt, lactose-reduced 120 ml PO 4X/DAY #0 mL 02/14/24 02/16/24 Rx 0.08 gram-1.5 kcal/mL oral liquid (Ensure Plus High Protein) omeprazole 20 mg capsule,delayed 20 mg PO DAILY 02/16/24 Unknown History release ferrous sulfate 325 mg (65 mg 325 mg PO DAILY #90 tabs 02/27/24 Unknown Rx iron) tablet bisacodyl 10 mg rectal suppository 10 mg [place] DAILY PRN constipation 04/02/24 Unknown History dextrose 40 % oral gel (Gluco 1 ea PO PRN PRN hypoglycemia 04/02/24 Unknown History Burst) glucagon 1 mg/0.2 mL subcutaneous 1 mg subcut PRN PRN hypoglycemia 04/02/24 Unknown History auto-injector magnesium hydroxide 400 mg/5 mL 30 ml PO DAILY PRN constipation 04/02/24 Unknown History oral suspension melatonin 1 mg chewable tablet 1 mg PO QHS INSOMNIA 04/02/24 Unknown History (Children's Sleep (melatonin)) sennosides 8.6 mg-docusate sodium 2 tab-cap PO DAILY PRN constipation 04/02/24 Unknown History 50 mg capsule (Senna Plus) menthol 0.44 %-zinc oxide 20.6 % 1 applic topical TID #0 grams 04/14/24 Unknown Rx topical ointment (Calmoseptine) ascorbate calcium (vitamin C) 500 500 mg PO DAILY 04/24/24 Unknown History mg tablet cholecalciferol (vitamin D3) 125 5,000 unit PO DAILY 04/24/24 Unknown History mcg (5,000 unit) capsule multivitamin 1 tab PO DAILY 04/24/24 Unknown History acetaminophen 325 mg tablet 650 mg (2 x 325 mg) PO Q6H PRN PRN 04/27/24 Unknown Rx Pain 1-10 Or Fever>100.7 #0 tabs furosemide 40 mg tablet (Lasix) 40 mg PO DAILY #60 tabs 04/27/24 Unknown Rx [id number] oral liquid ml PO DAILY PRN 05/12/24 Unknown History Allergy/AdvReac Type Severity Reaction Status Date / Time cat dander (cats) Allergy Mild Rash Verified 02/26/24 01:05 Family History unable to obtain Surgical History History of coronary artery stent placement Presence of coronary angioplasty implant and graft (~05/12/21) Social History household members: spouse housing: intermediate Smoking Status: Former smoker alcohol intake: never substance use type: does not use ROS ROS ED Constitutional Constitutional ED: Reports sweats; Denies chills or fever(s) Eyes Eyes: Denies change in vision Cardiovascular Cardiovascular: Denies chest pain Respiratory/Chest Respiratory/Chest: Denies cough Gastrointestinal Gastrointestinal: Reports melena; Denies abdominal pain or vomiting Genitourinary Genitourinary ED: Denies dysuria Musculoskeletal Musculoskeletal: Denies arthralgias or myalgias Integumentary Reports other Details: pale ; Denies rash Neurologic Neurologic: Reports weakness and other Details: Seizure activity reported Hematologic/Lymphatic Hematologic/Lymphatic: Denies easy bleeding or easy bruising EXAM Physical Exam Const Vital Signs: 05/12/24 17:08 05/12/24 17:13 05/12/24 18:08 Temperature 95.7 F L 98.0 F Temperature Source Temporal Temporal Pulse Rate 50 L 58 L Respiratory Rate 16 12 11 L Blood Pressure 94/52 L 102/70 104/47 L Blood Pressure Mean 66 80 66 Pulse Ox 100 99 100 Oxygen Delivery Method Room Air Room Air Room Air 05/12/24 18:12 05/12/24 18:59 05/12/24 19:00 Temperature 97 F L 97.2 F L Temperature Source Temporal Temporal Pulse Rate 58 L 65 65 Respiratory Rate 11 L 14 14 Blood Pressure 104/47 L 100/54 L 100/54 L Blood Pressure Mean 66 69 69 Pulse Ox 100 99 99 Oxygen Delivery Method Room Air Room Air Room Air 05/12/24 20:00 Temperature 96.5 F L Temperature Source Temporal Pulse Rate 54 L Respiratory Rate 19 H Blood Pressure 113/50 L Blood Pressure Mean 71 Pulse Ox 97 Oxygen Delivery Method Nasal Cannula Positive well nourished and well developed Constitutional Narrative: Ill-appearing General Appearance ED: well developed, NAD and pallor HEENT Reports moist mucous membranes Eyes PERRL and EOMs intact bilaterally General Eye ED: Yes pale conjunctiva Neck supple and no JVD Chest Wall inspection of chest normal Resp normal respiratory effort and clear to auscultation bilaterally Cardio Rate: bradycardia Rhythm: abnormal rhythm irregularly irregular GI normal to inspection, nondistended, normoactive bowel sounds and non-tender Extremity normal to inspection Neuro Sensorium / Orientation: alert Motor Exam: general weakness Skin no rashes or lesions noted General Skin Exam: pallor MDM MDM MDM Narrative Medical decision making narrative: Patient is a 78-year-old male with multiple comorbidities including sick sinus syndrome, Parkinson's disease, COPD, atrial fibrillation, CHF on chronic O2, diabetes and anemia presenting for multiple complaints. Patient apparently had seizure-like activity is nursing facility today as well as bright red blood per rectum which was preceded by melanotic stool. Patient is weak on exam and mildly pale. On rectal exam he has brown stool mixed with bloody mucus. This is occult positive. Patient is given a fluid bolus in the ER as his blood pressure is soft. Type and screen is sent. He does not have signs of active/brisk bleeding so we did not start a blood transfusion as his hemoglobin is currently 10.6. This is actually mildly above his baseline. Lactate is normal. Patient does not have any seizure activity in the ER. Remainder of workup largely his baseline. He does have an AUGUSTIN with a creatinine of 1.76. His baseline appears to be 1.1. He was recently managed for CHF exacerbation and question of he was over diuresed. Patient does have intermittent bradycardia in the emergency room but I do not think this is causing his presentation and he does have a history of this. Chart review shows that patient was taken off Keppra as he never had witnessed seizure activity. Family is quite confident that they saw a true seizure activity today. Is given a bolus of Keppra in the emergency room. Does not have any further seizure activity while in the ER. In addition CT does show pneumonia at the left base. Question he could be aspirating and family notes that the nursing facility is laying him down flat. Will cover with Unasyn. Case discussed with my physician, Dr. Eller. Will be admitted for further management of GI bleed, seizure activity, AUGUSTIN and pneumonia. Case is briefly discussed with GI on-call, Dr. Luna, who is aware of the patient. Patient is given a bolus of IV Protonix in the ER as it was reported that he initially had melanotic stool. Lab Data Labs: Laboratory Results - last 24 hr 05/12/24 05/12/24 05/12/24 17:22 17:32 19:27 WBC 7.0 RBC 3.37 L Hgb 10.6 L Hct 33.2 L MCV 98.5 H MCH 31.5 MCHC 31.9 L RDW Std Deviation 64.9 H RDW Coeff of Sophie 18.2 H Plt Count 150 MPV 11.0 Immature Gran % (Auto) 0.300 Neut % (Auto) 67.9 Lymph % (Auto) 23.0 [place] % (Auto) 6.6 Eos % (Auto) 1.9 Baso % (Auto) 0.3 Absolute Neuts (auto) 4.7 Absolute Lymphs (auto) 1.60 Nucleated RBC % 0 PT 14.4 INR 1.1 APTT 28.9 Sodium 144 Potassium 4.0 Chloride 111 H Carbon Dioxide 29.0 Anion Gap 4 L BUN 34 H Creatinine 1.76 H Estim Creat Clear Calc 34.03 Est GFR (MDRD) Af Amer 48 L Est GFR (MDRD) Non-Af 40 L BUN/Creatinine Ratio 19.3 Glucose 61 L Lactic Acid 0.8 Calcium 9.2 Total Bilirubin 0.40 AST 40 H ALT 28 Alkaline Phosphatase 122 H Troponin I High Sens 13 B-Natriuretic Peptide 206.7 H Total Protein 6.6 Albumin 2.9 L Globulin 3.7 Albumin/Globulin Ratio 0.8 L Urine Color Urine Clarity Urine pH Ur Specific [place] Urine Protein Urine Glucose (UA) Urine Ketones Urine Occult Blood Urine Nitrite Urine Bilirubin Urine Urobilinogen Ur Leukocyte Esterase Urine RBC Urine WBC Ur Squamous Epith Cells Urine Bacteria Urine Mucus Blood Type AB NEGATIVE Antibody Screen NEGATIVE 05/12/24 05/12/24 19:34 20:37 WBC RBC Hgb Hct MCV MCH MCHC RDW Std Deviation RDW Coeff of Sophie Plt Count MPV Immature Gran % (Auto) Neut % (Auto) Lymph % (Auto) [place] % (Auto) Eos % (Auto) Baso % (Auto) Absolute Neuts (auto) Absolute Lymphs (auto) Nucleated RBC % PT INR APTT Sodium Potassium Chloride Carbon Dioxide Anion Gap BUN Creatinine Estim Creat Clear Calc Est GFR (MDRD) Af Amer Est GFR (MDRD) Non-Af BUN/Creatinine Ratio Glucose Lactic Acid Calcium Total Bilirubin AST ALT Alkaline Phosphatase Troponin I High Sens 12 B-Natriuretic Peptide Total Protein Albumin Globulin Albumin/Globulin Ratio Urine Color Yellow Urine Clarity Sl. Cloudy Urine pH 5.0 Ur Specific [place] 1.015 Urine Protein 15 H Urine Glucose (UA) Normal Urine Ketones Negative Urine Occult Blood Negative Urine Nitrite Negative Urine Bilirubin Negative Urine Urobilinogen Normal Ur Leukocyte Esterase Negative Urine RBC 0 SEEN Urine WBC 0-5 SEEN Ur Squamous Epith Cells 0-5 SEEN Urine Bacteria 0 SEEN Urine Mucus 0 SEEN Blood Type Antibody Screen Radiography Diagnostic Testing: Clinical Impression(s) from Imaging Studies Brain CT 05/12/24 18:09 IMPRESSION: 1. No acute intracranial abnormality. There has been no significant change from the reference exam. 2. Stable senescent change with small vessel ischemia. Electronically Signed: Nahid Salazar MD at 19:25 EDT , Chest X-Ray 05/12/24 18:09 IMPRESSION: No radiographic evidence of acute cardiopulmonary disease. Electronically Signed: Nahid Salazar MD at 19:25 EDT , Abdomen/Pelvis CT 05/12/24 19:39 IMPRESSION: Left-sided effusion with left lower lobe consolidation which may represent. There are no acute abnormalities in the abdomen or pelvis. Electronically Signed: Nahid Salazar MD at 20:26 EDT , Rhythm Strip Rhythm Strip: A-fib Rate: 56 Ectopy: None EKG Initial EKG: Attestation: I personally reviewed and interpreted this EKG as follows: Interpretation: Atrial Fibrillation Comments: Atrial fibrillation with slow ventricular sponsor rate of 45 bpm Normal axis Normal intervals Normal ST segments Compared to prior EKG on 04/24/2024 patient is slightly more bradycardic Discharge Plan Dx/Rx/DC Orders Clinical Impression: Tonic-clonic seizure, Left lower lobe pneumonia, AUGUSTIN (acute kidney injury), Acute GI bleeding Disposition Disposition: Acute Care Hospital [facility] Discharge Date/Time: 05/12/24 21:38
[2024-05-12 18:42] LABS: International Normalized Ratio 1.1; Prothrombin Time (Protime)PT. 14.4 SECONDS (11.7-14.9)
[2024-05-12 18:43] LABS: Partial Thromboplast Time 28.9 Seconds (24.1-36.2)
[2024-05-12 18:57] LABS: ALB/GLOB Ratio 0.8 RATIO (0.9-2.4); AST(SGOT) 40 U/L (15-37); Alanine Aminotransfer ALT/SGPT 28 U/L (16-61); Albumin, Serum 2.9 g/dL (3.2-5.0); Alkaline Phosphatase 122 U/L (45-117); Anion Gap 4 (5-15); BUN 34 mg/dL (7-18); BUN/Creat Ratio 19.3 RATIO (10-20); Calcium,Total 9.2 mg/dL (8.5-10.1); Chloride 111 mmol/L (98-107); Creatinine, Serum 1.76 mg/dL (0.70-1.30); EST Glomerular Filtration Rate 40 mL/min (>60); Est Glom Filt Rate - Afr Amer 48 mL/min (>60); Estimated Creatinine Clearance 34.03 ml/min; Globulin 3.7 g/dL (2.2-4.2); Glucose 61 mg/dL (74-106); Protein, Total 6.6 g/dL (6.4-8.2); Sodium Level 144 mmol/L (136-145); Troponin-I HS (w/2H Reflex) 13 pg/mL (3.0-78.0)
[2024-05-12] MEDS: Pantoprazole Sodium 80 MG in 0.9% Normal Saline (50mL Bag) 15 ML 420 MG IV BOLUS (19:03)
[2024-05-12 19:39] LABS: Bacteria 0 SEEN /hpf (None Seen); Mucous, Urine 0 SEEN /hpf (<or=2+); Red Blood Cells-Urine 0 SEEN /hpf (0-5)
--- NOTE | 2024-05-12 19:39 | CT_ITS ---
EXAM: CT ABDOMEN AND PELVIS WITHOUT INTRAVENOUS CONTRAST CLINICAL INDICATION: gi bleed, diarrhea TECHNIQUE: Helically acquired images were obtained of the abdomen and pelvis without intravenous contrast. This CT exam was performed using one or more of the following dose reduction techniques: automated exposure control, adjustment of the mA and/or kV according to patient size, and/or use of iterative reconstruction technique. COMPARISON: 04/21/2021 FINDINGS: LOWER THORAX: There is a small left-sided effusion with left lower lobe consolidation which may represent pneumonia. No cardiomegaly. ABDOMEN: LIVER: Unremarkable. Homogeneous. GALLBLADDER AND BILE DUCTS: Unremarkable. No calcified gallstones. No gallbladder distention or wall edema. No intra- or extrahepatic biliary ductal dilation. PANCREAS: Unremarkable. No focal cystic mass. SPLEEN: Unremarkable. Normal size without focal cystic or solid mass. ADRENALS: Unremarkable. No nodules. KIDNEYS AND URETERS: There is a simple cyst in the right kidney. No follow-up imaging. Normal renal size and position. No hydronephrosis. STOMACH AND BOWEL: Unremarkable. No stomach or bowel distention. No focal inflammatory change. PELVIS: APPENDIX: No evidence of acute appendicitis. BLADDER: Unremarkable. REPRODUCTIVE: Unremarkable as visualized. No mass. ABDOMEN and PELVIS: INTRAPERITONEAL SPACE: Unremarkable. No ascites or other fluid collection. No free air. BONES/JOINTS: Unremarkable. No suspicious lytic or blastic abnormality. SOFT TISSUES: Unremarkable. No discrete abdominal or pelvic wall hernia. VASCULATURE: Unremarkable. Abdominal aorta is non-dilated. LYMPH NODES: Unremarkable. No enlarged lymph nodes. CT/Abdomen/Pelvis without Cont IMPRESSION: Left-sided effusion with left lower lobe consolidation which may represent. There are no acute abnormalities in the abdomen or pelvis. Electronically Signed: Nahid Salazar MD at 20:26 EDT ,
--- NOTE | 2024-05-12 20:03 | PCM.HP.STD ---
[facility] - General General Date of Admission: 05/12/24 Date of Service: 05/12/24 Chief Complaint: GI Bleed with Dark Tarry Stool with Seizure and Transient Confusion. [facility] Narrative KERRY WARNER, is a 78 M with a past medical history of essential hypertension, hyperlipidemia, DM-2; of unknown control, KHAI, GERD, history of COPD, Paroxysmal Atrial Fibrillation; on BASA, CAD; s/p RCA stent 2020, Parkinson's disease, questionable history of Seizure disorder; with history of Keppra which was continued last admission ~2 weeks ago after nonspecific EEG, history of syncope, DDD of Lumbar Spine, OA, Dementia; with Donepezil recently stopped due to bradycardia and recent admission here from 04/02/2024 to 04/14/2024 for Septic Shock and Acute Hypercapnic Respiratory Failure due to Klebsiella pneumoniae complicated by persistent Encephalopathy followed by another admission for AE of Chronic Diastolic CHF; with preserved LVEF ~70% on echocardiogram plus Pneumonia here from 04/24/2024 to 04/27/2024 with DNR-CCA Code Status with patient currently residing at [facility] who presents to [facility] ER complaining of GI Bleed with Dark Tarry Stool and Seizure followed by transient confusion. Mr. Warner is not a fully-reliable historian at this time so information was gathered from chart, medical staff and computer. According to the records at the [facility] he was noted to have melanotic stools followed by another BM that had blood that was bright red in color. There is also a report of a suspected seizure with his eyes becoming fixed and then rolling back in his head followed by tonic-clonic jerking that allegedly lasted 4-5 minutes with patient then coming back around to his 'normal self' with an unclear postictal period. He had apparently begun complaining of a headache yesterday as well as today along with not feeling well overall with generalized weakness. There was no report of head trauma or other acute traumatic injury. He has a history of GI bleeding with anemia but this has apparently never been formally worked up in the past. He denies associated fever, chills, nausea, vomiting or constipation but he does admit to diarrhea with dark-tarry stools. He was then diagnosed with a suspected UGIB due to suspected PUD likely arising from Adverse Drug Reaction to BASA complicated by recurrent Tonic-Clonic Seizure and transient confusion likely due to postictal period with a LLL consolidation on CT suspected to be due to aspiration event during seizure activity compounded by laboratory evidence of AUGUSTIN and he was then admitted to the PCU for ongoing care for a stay that is expected to extend beyond 2 midnights. [facility] Medical History History of Parkinson's disease History of COPD Sick sinus syndrome History of heart failure Orthostatic hypotension Sciatica Personal history of colonic polyps Confusion Fall History of diabetes mellitus Chronic anemia Adult failure to thrive Bradycardia Fall Acute alteration in mental status CHI (closed head injury) Anemia Essential hypertension Degenerative disk disease Congestive heart failure (CHF) On home oxygen therapy Atrial fibrillation Coronary artery disease Chest pain Lower extremity edema Macrocytic anemia Hallucinations Short-term memory loss Hypoxia Hypertensive urgency Anemia CHF (congestive heart failure) COPD exacerbation Acute respiratory failure with hypoxia Syncope Delirium Orthostatic hypotension Presence of stent in coronary artery (~05/12/21) Atherosclerotic heart disease of [place] coronary artery without angina pectoris HLD (hyperlipidemia) Anemia Vertigo Degenerative disc disease, lumbar Anxiety Diabetes GERD (gastroesophageal reflux disease) Former smoker Parkinson's disease Altered mental status Back pain Hypertension Home Medications ?Medication ?Instructions ?Recorded ?Last Taken ?Type aspirin 81 mg tablet,delayed 81 mg PO DAILY HEART HEALTH 08/16/23 02/16/24 History release (Bertin Low Dose Aspirin) atorvastatin 20 mg tablet 20 mg PO QHS CHOLESTEROL #90 tabs 08/16/23 Unknown Rx cyanocobalamin (vitamin B-12) 500 mcg PO DAILY SUPPLEMENT 02/06/24 Unknown History 1,000 mcg tablet albuterol sulfate 2.5 mg/3 mL 2.5 mg (3 mL) inhalation Q6H PRN 02/14/24 Unknown Rx (0.083 %) solution for nebulization SHORTNESS OF BREATH/WHEEZING #0 mL food supplemt, lactose-reduced 120 ml PO 4X/DAY #0 mL 02/14/24 02/16/24 Rx 0.08 gram-1.5 kcal/mL oral liquid (Ensure Plus High Protein) omeprazole 20 mg capsule,delayed 20 mg PO DAILY 02/16/24 Unknown History release ferrous sulfate 325 mg (65 mg 325 mg PO DAILY #90 tabs 02/27/24 Unknown Rx iron) tablet bisacodyl 10 mg rectal suppository 10 mg ID DAILY PRN constipation 04/02/24 Unknown History dextrose 40 % oral gel (Gluco 1 ea PO PRN PRN hypoglycemia 04/02/24 Unknown History Burst) glucagon 1 mg/0.2 mL subcutaneous 1 mg subcut PRN PRN hypoglycemia 04/02/24 Unknown History auto-injector magnesium hydroxide 400 mg/5 mL 30 ml PO DAILY PRN constipation 04/02/24 Unknown History oral suspension melatonin 1 mg chewable tablet 1 mg PO QHS INSOMNIA 04/02/24 Unknown History (Children's Sleep (melatonin)) sennosides 8.6 mg-docusate sodium 2 tab-cap PO DAILY PRN constipation 04/02/24 Unknown History 50 mg capsule (Senna Plus) menthol 0.44 %-zinc oxide 20.6 % 1 applic topical TID #0 grams 04/14/24 Unknown Rx topical ointment (Calmoseptine) ascorbate calcium (vitamin C) 500 500 mg PO DAILY 04/24/24 Unknown History mg tablet cholecalciferol (vitamin D3) 125 5,000 unit PO DAILY 04/24/24 Unknown History mcg (5,000 unit) capsule multivitamin 1 tab PO DAILY 04/24/24 Unknown History acetaminophen 325 mg tablet 650 mg (2 x 325 mg) PO Q6H PRN PRN 04/27/24 Unknown Rx Pain 1-10 Or Fever>100.7 #0 tabs furosemide 40 mg tablet (Lasix) 40 mg PO DAILY #60 tabs 04/27/24 Unknown Rx RO-avbvnazxelocf-YT oral liquid ml PO DAILY PRN 05/12/24 Unknown History Allergy/AdvReac Type Severity Reaction Status Date / Time cat dander (cats) Allergy Mild Rash Verified 02/26/24 01:05 Family History unable to obtain Surgical History History of coronary artery stent placement Presence of coronary angioplasty implant and graft (~05/12/21) Social History household members: spouse housing: shelter Smoking Status: Former smoker alcohol intake: never substance use type: does not use ROS ROS Narrative Review of systems: General: Patient admits to sweats and generalized weakness but denies fever or chills. HENT: Patient admits to headache but denies runny nose or sore throat. EYES: Denies changes in vision Resp: Denies cough, denies shortness of breath Cardiac: Denies chest pain, palpitations or heart racing. GI: Patient admits to melanotic stools but denies abdominal pain, nausea or vomiting. : Denies changes in urination Extremity: Denies swelling Musculoskeletal: Feels somewhat generally weak and unwell Neuro: Patient admits to headache and has chronic baseline dementia complicated by witnessed tonic-clonic seizure and postictal period. Heme: Patient admitted to melanotic stools followed by some bright red blood as per HPI. Skin: Denies rashes Psychiatric: No complaints voiced related to uncontrolled depression or anxiety. Endocrine: No polyuria, polydipsia or polyphagia. The rest of the 14 point ROS was negative except for positives in HPI. Vital Signs Vital Signs Vital Signs: 05/12/24 17:08 05/12/24 17:13 05/12/24 18:08 Temperature 95.7 F L 98.0 F Temperature Source Temporal Temporal Pulse Rate 50 L 58 L Respiratory Rate 16 12 11 L Blood Pressure 94/52 L 102/70 104/47 L Blood Pressure Mean 66 80 66 Pulse Ox 100 99 100 Oxygen Delivery Method Room Air Room Air Room Air 05/12/24 18:12 05/12/24 18:59 05/12/24 19:00 Temperature 97 F L 97.2 F L Temperature Source Temporal Temporal Pulse Rate 58 L 65 65 Respiratory Rate 11 L 14 14 Blood Pressure 104/47 L 100/54 L 100/54 L Blood Pressure Mean 66 69 69 Pulse Ox 100 99 99 Oxygen Delivery Method Room Air Room Air Room Air Weight Weight: 177 lb 7.554 oz Body Mass Index (BMI) 26.2 Physical Exam Const alert, no apparent distress and average body habitus General Appearance: cooperative Orientation / Consciousness: confused HEENT normocephalic, head/scalp atraumatic, hearing grossly normal bilaterally and moist oral mucous membranes Eyes PERRL and EOMs intact bilaterally Eyes Narrative: Pale conjunctivae noted. Neck no lymphadenopathy and supple Resp normal respiratory effort, no retractions and no use of accessory muscles Resp Narrative: Decreased breath sounds over Left lower lobe. Cardio Cardio Narrative: Irregularly irregular and bradycardic in the 50 to 65 bpm range. GI normal to inspection, nondistended, normoactive bowel sounds, soft to palpation, non-tender and non-distended Extremity normal to inspection and full ROM Skin Skin Narrative: Patient has no evidence of rash, jaundice or abscess. Neuro CN's II-XII intact bilaterally, moves all extremities and no focal motor deficits Sensorium / Orientation: awake, alert, oriented to person and oriented to place Speech: speech normal Psych affect normal Results Medical Records Data Attestation: I reviewed the patient's medical records Lab / Micro Data Attestation: I reviewed the patient's lab results. 05/12/24 17:22 05/12/24 17:22 Labs: Laboratory Results - last 24 hr 05/12/24 17:22: WBC 7.0, RBC 3.37 L, Hgb 10.6 L, Hct 33.2 L, MCV 98.5 H, MCH 31.5, MCHC 31.9 L, RDW Std Deviation 64.9 H, RDW Coeff of Sophie 18.2 H, Plt Count 150, MPV 11.0, Immature Gran % (Auto) 0.300, Neut % (Auto) 67.9, Lymph % (Auto) 23.0, [place] % (Auto) 6.6, Eos % (Auto) 1.9, Baso % (Auto) 0.3, Absolute Neuts (auto) 4.7, Absolute Lymphs (auto) 1.60, Nucleated RBC % 0, PT 14.4, INR 1.1, APTT 28.9, Sodium 144, Potassium 4.0, Chloride 111 H, Carbon Dioxide 29.0, Anion Gap 4 L, BUN 34 H, Creatinine 1.76 H, Estim Creat Clear Calc 34.03, Est GFR (MDRD) Af Amer 48 L, Est GFR (MDRD) Non-Af 40 L, BUN/Creatinine Ratio 19.3, Glucose 61 L, Calcium 9.2, Total Bilirubin 0.40, AST 40 H, ALT 28, Alkaline Phosphatase 122 H, Troponin I High Sens 13, Total Protein 6.6, Albumin 2.9 L, Globulin 3.7, Albumin/Globulin Ratio 0.8 L 05/12/24 17:32: Blood Type AB NEGATIVE, Antibody Screen NEGATIVE Micro: Microbiology 05/12/24 18:55 Stool Stool Occult Blood (HESHAM) - Final Occult Blood Positive Rhythm Strip Rhythm Strip: A-fib Rate: 56 Ectopy: None Imaging Radiology Impression Brain CT 05/12/24 18:09 IMPRESSION: 1. No acute intracranial abnormality. There has been no significant change from the reference exam. 2. Stable senescent change with small vessel ischemia. Electronically Signed: Nahid Salazar MD at 19:25 EDT , Chest X-Ray 05/12/24 18:09 IMPRESSION: No radiographic evidence of acute cardiopulmonary disease. Electronically Signed: Nahid Salazar MD at 19:25 EDT , [facility] Imaging Services [address] [place] [id number] Abdomen/Pelvis without Cont MR#: [id number] Acct: [id number] Name: KERRY WARNER Rep #: [id number] : 1945 M 78 From: Nahid Salazar MD PCP: Lynnette Erazo MD Status: REG ER Study: Abdomen/Pelvis without Cont Date of Exam: 05/12/24 Exam# [id number] Ordering Dr: Cmaila Jasso DO EXAM: CT ABDOMEN AND PELVIS WITHOUT INTRAVENOUS CONTRAST CLINICAL INDICATION: gi bleed, diarrhea TECHNIQUE: Helically acquired images were obtained of the abdomen and pelvis without intravenous contrast. This CT exam was performed using one or more of the following dose reduction techniques: automated exposure control, adjustment of the mA and/or kV according to patient size, and/or use of iterative reconstruction technique. COMPARISON: 04/21/2021 FINDINGS: LOWER THORAX: There is a small left-sided effusion with left lower lobe consolidation which may represent pneumonia. No cardiomegaly. ABDOMEN: LIVER: Unremarkable. Homogeneous. GALLBLADDER AND BILE DUCTS: Unremarkable. No calcified gallstones. No gallbladder distention or wall edema. No intra- or extrahepatic biliary ductal dilation. PANCREAS: Unremarkable. No focal cystic mass. SPLEEN: Unremarkable. Normal size without focal cystic or solid mass. ADRENALS: Unremarkable. No nodules. KIDNEYS AND URETERS: There is a simple cyst in the right kidney. No follow-up imaging. Normal renal size and position. No hydronephrosis. STOMACH AND BOWEL: Unremarkable. No stomach or bowel distention. No focal inflammatory change. PELVIS: APPENDIX: No evidence of acute appendicitis. BLADDER: Unremarkable. REPRODUCTIVE: Unremarkable as visualized. No mass. ABDOMEN and PELVIS: INTRAPERITONEAL SPACE: Unremarkable. No ascites or other fluid collection. No free air. BONES/JOINTS: Unremarkable. No suspicious lytic or blastic abnormality. SOFT TISSUES: Unremarkable. No discrete abdominal or pelvic wall hernia. VASCULATURE: Unremarkable. Abdominal aorta is non-dilated. LYMPH NODES: Unremarkable. No enlarged lymph nodes. CT/Abdomen/Pelvis without Cont IMPRESSION: Left-sided effusion with left lower lobe consolidation which may represent. There are no acute abnormalities in the abdomen or pelvis. Electronically Signed: Nahid Salazar MD at 20:26 EDT , Assessment & Plan Assessment/Plan (1) Melena: (2) Adverse drug reaction: QUALIFIERS: Encounter type: initial encounter Qualified Code(s): T50.905A - Adverse effect of unspecified drugs, medicaments and biological substances, initial encounter (3) Tonic-clonic seizure: (4) Left lower lobe pneumonia: QUALIFIERS: Pneumonia type: due to unspecified organism Qualified Code(s): J18.9 - Pneumonia, unspecified organism (5) AUGUSTIN (acute kidney injury): PLAN: Plan 1. UGIB due to suspected PUD; with Melena and Hemoccult positive stools noted noted on admission in the setting of known KHAI and GERD - Admit to PCU. Continue IV Protonix drip begun in the ER. Type & Screen blood and transfuse for hemoglobin <7 g/dL. Give IV Zofran prn for nausea and vomiting. Finally, we will consult Dr. Luna of gastroenterology to see this patient on-rounds in the AM for further recommendations with help appreciated in advance. 2. Adverse Drug Reaction to BASA used to treat PAF likely causing #1 - Hold BASA. Place on bus monitor and give IV Digoxin for sustained RVR. 3. Tonic-Clonic Seizure and transient confusion likely due to postictal period (recurrent) complicating #1 & #2 - Continue IV Keppra 1g IV BID. Recheck EEG. Finally, we will consult [facility] with help appreciated in advance. 4. LLL consolidation on CT suspected to be due to aspiration event during seizure activity compounding #1 - #3 - Give empiric IV Zosyn and await culture and sensitivity data. 5. AUGUSTIN; suspected due to elevated serum creatinine of 1.76 mg/dL present on admission (up from 0.98 mg/dL last admission) - Give NS IVF, follow strict I's & O's and recheck levels in AM to ensure improvement. 6. Recent admission here from 04/02/2024 to 04/14/2024 for Septic Shock and Acute Hypercapnic Respiratory Failure due to Klebsiella pneumoniae complicated by persistent Encephalopathy followed by another admission for AE of Chronic Diastolic CHF; with preserved LVEF ~70% on echocardiogram plus Pneumonia here from 04/24/2024 to 04/27/2024 with DNR-CCA Code Status adding to the pathology of #1 - #4 - Noted. 7. History of suspected Seizure disorder; with history of Keppra which was continued last admission ~2 weeks ago after nonspecific EEG - Restart Keppra 1g IV BID plus recheck EEG. 8. Dementia; with Donepezil recently stopped due to bradycardia - Noted. 9. Parkinson's disease - Stable with patient currently on no anti-Parkinson's agent at this time. 10. History of CAD; s/p RCA stent 2020 - Noted. 11. Essential hypertension - Hold scheduled antihypertensives. 12. Hyperlipidemia - Resume statin when patient is cleared to restart oral intake. 13. DM-2; of unknown control - Keep strict NPO for now. FSBS q. 6 hours with lowest intensity SSI. 14. History of COPD - Stable with no evidence of flare. 15. History of syncope - Noted. 16. DDD of Lumbar Spine with OA and Sciatica - Stable. 17. DVT prophylaxis - SCD's only in light of recent GI bleeding outlined in #1. Total time: Approximately 75 minutes. Charges/Coding Visit Charges Inpatient E&M: 65139 Init Hosp L3
--- NOTE | 2024-05-12 20:06 | EKG12_ITS ---
Test Reason : IRREGULAR Blood Pressure : / mmHG Vent. Rate : 045 BPM Atrial Rate : 000 BPM P-R Int : 000 ms QRS Dur : 092 ms QT Int : 524 ms P-R-T Axes : 000 026 044 degrees QTc Int : 453 ms Atrial fibrillation with slow ventricular response Abnormal ECG Confirmed by BLAIRE DUMONT, RAHAT ([id number]), editorial project manager AMARIS CASTORENA ([id number]) on 05/14/2024 9:39:31 AM Referred By: Confirmed By:RAHAT RUDD MD
[2024-05-12] MEDS: Ampicillin/Sulbactam 3 GM in 0.9% Normal Saline (100mL MB+) 100 ML IV (20:26)
[2024-05-12 20:27] LABS: Reflex Troponin-HS? (from REC) Y
[2024-05-12] MEDS: levETIRAcetam IV 1,000 MG/100 ML BAG 400 MG IV (20:36)
[2024-05-12 20:53] LABS: Color, Urine Yellow (Yellow); Glucose, Dipstick Normal (Normal); Ketone-Dipstick Negative (Negative); Leukocyte Esterase-Dipstick Negative /ul (Negative); Nitrite-Dipstick Negative (Negative); Occult Blood-Urine Negative /ul (Negative); Protein-Dipstick 15 mg/dl (Negative); Specific Gravity, Urine 1.015 (1.002-1.030); Urine Bilirubin Dipstick Negative (Negative); Urine Clarity Sl. Cloudy (Clear); Urine Urobilinogen Normal (Normal)
[2024-05-12 21:00] LABS: Troponin-I HS 12 pg/mL (3.0-78.0)
[2024-05-12 21:00] LABS: Lactic Acid 0.8 mmol/L (0.4-1.9)
[2024-05-12 21:10] LABS: Squamous Epithelial Cells - UA 0-5 SEEN /hpf (0-5); White Blood Cells 0-5 SEEN /hpf (0-5)
[2024-05-12 21:19] LABS: BNP,B-Type NATRIURETIC PEPTIDE 206.7 pg/mL (0-100)
[2024-05-12] MEDS: 0.9% Normal Saline (1000mL) 1,000 ML 70 ML IV (22:05)
[2024-05-12] MEDS: Pantoprazole Sodium 80 MG in 0.9% Normal Saline (100mL Bag) 80 ML 10 MG CONT INF (22:05)
[2024-05-12] MEDS: Piperacil/Tazobactam 3.375 GM in 0.9% Normal Saline (50mL MB+) 50 ML IV (22:05)
[2024-05-12] MEDS: Menthol/Lanolin/Calamine/Znox 113 GM Tube 1 APPLIC TOPICAL (22:06)
[2024-05-13] VITALS (10 sets, daily range): BP systolic 93–131; BP diastolic 53–90; PULSE 46–56; RESP 14–20; TEMP 35.7–36.3; O2SAT 92–99; BMI 25.0
[2024-05-13 00:03] LABS: Bedside Glucose 84 mg/dL (74-106)
[2024-05-13] MEDS: Menthol/Lanolin/Calamine/Znox 113 GM Tube 1 APPLIC TOPICAL ×3 (05:13→20:36)
[2024-05-13] MEDS: Piperacil/Tazobactam 3.375 GM in 0.9% Normal Saline (50mL MB+) 50 ML IV ×3 (05:13→22:43)
[2024-05-13 05:32] LABS: Bedside Glucose 84 mg/dL (74-106)
[2024-05-13 06:22] LABS: Absolute Lymphocyte Count 1.04 X10^3/uL (0.83-4.51); Basophil# 0.01 X10^3/uL; Basophil% 0.2 % (0-1); Eosinophil# 0.08 X10^3/uL; Eosinophils% 1.8 % (0-5); Hematocrit 26.9 % (40-54); Hemoglobin 8.6 g/dL (13.0-16.5); Lymphocyte # 1.04 X10^3/ul (0.83-4.51); Lymphocyte % 22.9 % (19-41); Mean Corpuscular Hgb 30.9 pg (27.0-32.0); Mean Corpuscular Volume 96.8 fL (80-94); Mean Platelet Vol. 10.9 fl (6.2-12.0); Monocyte# 0.36 X10^3/uL; Monocyte% 7.9 % (0-10); NRBC Flagged by Analyzer 0 % (0-5); Neutrophil # 3.04 X10^3/uL (2.7-7.7); Platelet Count 110 K/mm3 (150-450); RBC Distribution Width CV 17.9 % (11.6-14.6); RBC Distribution Width SD 63.7 fl (35.1-43.9); Red Blood Count 2.78 M/mm3 (4.6-6.2); White Blood Count 4.5 K/mm3 (4.4-11.0)
[2024-05-13 06:59] LABS: ALB/GLOB Ratio 0.8 RATIO (0.9-2.4); AST(SGOT) 28 U/L (15-37); Alanine Aminotransfer ALT/SGPT 22 U/L (16-61); Albumin, Serum 2.4 g/dL (3.2-5.0); Alkaline Phosphatase 100 U/L (45-117); Anion Gap 6 (5-15); BUN 31 mg/dL (7-18); BUN/Creat Ratio 20.1 RATIO (10-20); Calcium,Total 8.4 mg/dL (8.5-10.1); Chloride 113 mmol/L (98-107); Creatinine, Serum 1.54 mg/dL (0.70-1.30); EST Glomerular Filtration Rate 46 mL/min (>60); Est Glom Filt Rate - Afr Amer 56 mL/min (>60); Globulin 3.1 g/dL (2.2-4.2); Glucose 86 mg/dL (74-106); Magnesium 2.2 mg/dL (1.6-2.6); Phosphorus 3.9 mg/dL (2.5-4.9); Potassium 3.9 mmol/L (3.5-5.1); Protein, Total 5.5 g/dL (6.4-8.2); Sodium Level 144 mmol/L (136-145); Thyroid Stim Hormone (TSH) 1.05 uIU/mL (0.358-3.74)
[2024-05-13] MEDS: Pantoprazole Sodium 80 MG in 0.9% Normal Saline (100mL Bag) 80 ML 10 MG CONT INF ×2 (07:00→16:27)
[2024-05-13] MEDS: 0.9% Normal Saline (1000mL) 1,000 ML 70 ML IV (07:01)
--- NOTE | 2024-05-13 09:19 | CASEMGMT ---
Discharge Planning Call placed to pt's daughter (Urban) to see if pt will return to [facility]. She would like to talk to someone about a hospice consult. Informed her that a SW would follow up with her. SW updated. Lillian Hollis DC Planning Asst.
--- NOTE | 2024-05-13 10:12 | CASEMGMT ---
Social Work SW spoke w/physician this morning, a hospice referral would be appropriate. SW spoke w/pt's daughter Urban, she is agreeable to speak w/hospice. SW called [facility], referral made. They are to call Urban to set up a meeting. SW will continue to follow. SHEKHAR Albrecht
--- NOTE | 2024-05-13 10:19 | CASEMGMT ---
Discharge Planning Per CC, patient has exhausted his MCR days. They have applied for [facility] and have a pending number ([id number]). His daughter is working on cashing in life insurance policies and deadline to submit documentation has been extended for that reason. SW updated. Lillian Hollis DC Planning Asst.
--- NOTE | 2024-05-13 10:26 | NEURO.CONS ---
Assessment and Plan: Neuro Assessment/Plan KERRY VALDES is a 78 M with a past medical history of HTN, hyperlipidemia, DM-2, GERD, COPD, Paroxysmal Atrial Fibrillation, CAD, Parkinson's disease, ? Seizure disorder, syncope with known orthostasis in the past, DDD of Lumbar Spine, OA, Dementia, being evaluated by Teleneurology with concern for seizure. One event of feeling hot/flushed prior to passing out with movements of the arms and legs. No post ictal state. Suspect syncope rather then seizure given suspected GIB and history of syncope with similar appearance in the past. In terms of encephalopathy suspect toxic metabolic encephalopathy in the setting of poor neurologic reserve. Current encephalopathy typical for him when admitted per family. Would be reasonable to obtain EEG to further evaluate, however. Diagnosis: Convulsive syncope vs seizure (lower suspicion) and toxic metabolic encephalopathy. Plan: Would not continue Keppra rEEG ordered Recommend orthostatic vitals, if positive would treat with compression stockings, abdominal binder. No further recommendations, EEG report will be faxed over once completed. I personally attended this patient and spent a total time of 40 minutes evaluating this patient including clinical assessment, review of chart, medical history imaging, and determining appropriate treatment and workup. HPI Consult Data Date of Consult: 05/13/24 HPI Narrative HPI Narrative: KERRY VALDES, is a 78 M HTN, hyperlipidemia, DM-2, GERD, COPD, Paroxysmal Atrial Fibrillation, CAD, Parkinson's disease, ? Seizure disorder, syncope, DDD of Lumbar Spine, OA, Dementia who presents to [facility] ER complaining of GI Bleed with Dark Tarry Stool and Seizure followed by transient confusion. Recent admissions for PNA, spesis. in mid and late March which were both complicated by encephalopathy. Yesterday while at facility had one episode of melena and one stool with BRB. Following second bowel movement, was standing up when reported feeling hot/flushed. eyes rolled back and he passed out. This was followed by shaking movements of the arms and legs. Lasted a few minutes. No post-ictal confusion, was back to baseline quickly. Since admission overnight he has been confused, at times combative and at times very sleepy. Family reported this is typical for him in the hospital. History of similar event earlier this year, seen by neurology at that time and suspected syncope rather than seizure. Seems he was put on Keppra few weeks ago for unclear reasons. [facility] Medical History History of Parkinson's disease History of COPD Sick sinus syndrome History of heart failure Orthostatic hypotension Sciatica Personal history of colonic polyps Confusion Fall History of diabetes mellitus Chronic anemia Adult failure to thrive Bradycardia Fall Acute alteration in mental status CHI (closed head injury) Anemia Essential hypertension Degenerative disk disease Congestive heart failure (CHF) On home oxygen therapy Atrial fibrillation Coronary artery disease Chest pain Lower extremity edema Macrocytic anemia Hallucinations Short-term memory loss Hypoxia Hypertensive urgency Anemia CHF (congestive heart failure) COPD exacerbation Acute respiratory failure with hypoxia Syncope Delirium Orthostatic hypotension Presence of stent in coronary artery (~05/12/21) Atherosclerotic heart disease of [place] coronary artery without angina pectoris HLD (hyperlipidemia) Anemia Vertigo Degenerative disc disease, lumbar Anxiety Diabetes GERD (gastroesophageal reflux disease) Former smoker Parkinson's disease Altered mental status Back pain Hypertension Home Medications ?Medication ?Instructions ?Recorded ?Last Taken ?Type aspirin 81 mg tablet,delayed 81 mg PO DAILY HEART HEALTH 08/16/23 02/16/24 History release (Bertin Low Dose Aspirin) atorvastatin 20 mg tablet 20 mg PO QHS CHOLESTEROL #90 tabs 08/16/23 Unknown Rx cyanocobalamin (vitamin B-12) 500 mcg PO DAILY SUPPLEMENT 02/06/24 Unknown History 1,000 mcg tablet albuterol sulfate 2.5 mg/3 mL 2.5 mg (3 mL) inhalation Q6H PRN 02/14/24 Unknown Rx (0.083 %) solution for nebulization SHORTNESS OF BREATH/WHEEZING #0 mL food supplemt, lactose-reduced 120 ml PO 4X/DAY #0 mL 02/14/24 02/16/24 Rx 0.08 gram-1.5 kcal/mL oral liquid (Ensure Plus High Protein) omeprazole 20 mg capsule,delayed 20 mg PO DAILY 02/16/24 Unknown History release ferrous sulfate 325 mg (65 mg 325 mg PO DAILY #90 tabs 02/27/24 Unknown Rx iron) tablet bisacodyl 10 mg rectal suppository 10 mg AR DAILY PRN constipation 04/02/24 Unknown History dextrose 40 % oral gel (Gluco 1 ea PO PRN PRN hypoglycemia 04/02/24 Unknown History Burst) glucagon 1 mg/0.2 mL subcutaneous 1 mg subcut PRN PRN hypoglycemia 04/02/24 Unknown History auto-injector magnesium hydroxide 400 mg/5 mL 30 ml PO DAILY PRN constipation 04/02/24 Unknown History oral suspension melatonin 1 mg chewable tablet 1 mg PO QHS INSOMNIA 04/02/24 Unknown History (Children's Sleep (melatonin)) sennosides 8.6 mg-docusate sodium 2 tab-cap PO DAILY PRN constipation 04/02/24 Unknown History 50 mg capsule (Senna Plus) menthol 0.44 %-zinc oxide 20.6 % 1 applic topical TID #0 grams 04/14/24 Unknown Rx topical ointment (Calmoseptine) ascorbate calcium (vitamin C) 500 500 mg PO DAILY 04/24/24 Unknown History mg tablet cholecalciferol (vitamin D3) 125 5,000 unit PO DAILY 04/24/24 Unknown History mcg (5,000 unit) capsule multivitamin 1 tab PO DAILY 04/24/24 Unknown History acetaminophen 325 mg tablet 650 mg (2 x 325 mg) PO Q6H PRN PRN 04/27/24 Unknown Rx Pain 1-10 Or Fever>100.7 #0 tabs furosemide 40 mg tablet (Lasix) 40 mg PO DAILY #60 tabs 04/27/24 Unknown Rx [id number] oral liquid ml PO DAILY PRN 05/12/24 Unknown History Allergy/AdvReac Type Severity Reaction Status Date / Time cat dander (cats) Allergy Mild Rash Verified 02/26/24 01:05 Family History unable to obtain Surgical History History of coronary artery stent placement Presence of coronary angioplasty implant and graft (~05/12/21) Social History household members: spouse housing: correction Smoking Status: Former smoker alcohol intake: never substance use type: does not use Vital Signs Vital Signs Vital Signs: 05/12/24 17:08 05/12/24 17:13 05/12/24 18:08 Temperature 95.7 F L 98.0 F Temperature Source Temporal Temporal Pulse Rate 50 L 58 L Pulse Strength Respiratory Rate 16 12 11 L Respiratory Effort Respiratory Depth Respiratory Pattern Blood Pressure 94/52 L 102/70 104/47 L Blood Pressure Mean 66 80 66 Blood Pressure Source Blood Pressure Position Blood Pressure Location Pulse Ox 100 99 100 Oxygen Delivery Method Room Air Room Air Room Air Oxygen Flow Rate (L/min) 05/12/24 18:12 05/12/24 18:59 05/12/24 19:00 Temperature 97 F L 97.2 F L Temperature Source Temporal Temporal Pulse Rate 58 L 65 65 Pulse Strength Respiratory Rate 11 L 14 14 Respiratory Effort Respiratory Depth Respiratory Pattern Blood Pressure 104/47 L 100/54 L 100/54 L Blood Pressure Mean 66 69 69 Blood Pressure Source Blood Pressure Position Blood Pressure Location Pulse Ox 100 99 99 Oxygen Delivery Method Room Air Room Air Room Air Oxygen Flow Rate (L/min) 05/12/24 20:00 05/12/24 21:00 05/12/24 21:00 Temperature 96.5 F L 96.8 F L Temperature Source Temporal Temporal Pulse Rate 54 L 59 L 59 L Pulse Strength Respiratory Rate 19 H 18 Respiratory Effort Respiratory Depth Respiratory Pattern Blood Pressure 113/50 L 116/65 Blood Pressure Mean 71 82 Blood Pressure Source Blood Pressure Position Blood Pressure Location Pulse Ox 97 95 Oxygen Delivery Method Nasal Cannula Room Air Oxygen Flow Rate (L/min) 05/12/24 21:04 05/12/24 21:59 05/12/24 22:00 Temperature 96.8 F L 96.0 F L Temperature Source Temporal Pulse Rate 59 L 54 L Pulse Strength Normal (2+) Respiratory Rate 18 16 Respiratory Effort Respiratory Depth Respiratory Pattern Blood Pressure 116/75 84/60 L Blood Pressure Mean 88 68 Blood Pressure Source Monitor Blood Pressure Position Semi-Fowlers Blood Pressure Location Left Arm Pulse Ox 95 95 Oxygen Delivery Method Nasal Cannula Oxygen Flow Rate (L/min) 2 05/12/24 23:00 05/12/24 23:00 05/12/24 23:05 Temperature 97.4 F L 97.4 F L Temperature Source Temporal Temporal Pulse Rate 53 L 53 L Pulse Strength Respiratory Rate 16 16 Respiratory Effort Respiratory Depth Respiratory Pattern Blood Pressure 98/65 98/65 Blood Pressure Mean 76 76 Blood Pressure Source Monitor Blood Pressure Position Supine Blood Pressure Location Right Arm Pulse Ox 100 100 100 Oxygen Delivery Method Nasal Cannula Nasal Cannula Nasal Cannula Oxygen Flow Rate (L/min) 2 2 2 05/12/24 23:30 05/13/24 05:00 05/13/24 05:00 Temperature 97 F L Temperature Source Temporal Pulse Rate 53 L Pulse Strength Respiratory Rate 14 Respiratory Effort Normal Non-Labored Normal Non-Labored Respiratory Depth Normal Normal Respiratory Pattern Normal Normal Blood Pressure 94/53 L Blood Pressure Mean 66 Blood Pressure Source Monitor Blood Pressure Position Supine Blood Pressure Location Right Arm Pulse Ox 99 Oxygen Delivery Method Nasal Cannula Room Air Room Air Oxygen Flow Rate (L/min) 2 05/13/24 09:27 05/13/24 09:33 Temperature Temperature Source Pulse Rate Pulse Strength Normal (2+) Respiratory Rate Respiratory Effort Normal Non-Labored Respiratory Depth Normal Respiratory Pattern Normal Blood Pressure Blood Pressure Mean Blood Pressure Source Blood Pressure Position Blood Pressure Location Pulse Ox Oxygen Delivery Method Room Air Oxygen Flow Rate (L/min) Weight Weight: 76.9 kg Body Mass Index (BMI) 25.0 EEG Results Procedure Details EEG Procedure Details: KERRY VALDES is a 78 year old M with a past medical history of , who presents for evaluation of Electroencephalogram on DATE at TIME Physical Exam Neuro Neuro Narrative: Sleeping, opens eyes briefly to pain. Does not attend or tract. No verbal responses. Eyes with full EOM in lateral gaze.PERRL Face symmetric at rest and with grimace. Moves/withdraws all limbs to pain, spontaneous movement of arms. Lab / Micro Data 05/13/24 06:09 05/13/24 06:09 Labs: Laboratory Results - last 24 hr 05/12/24 17:22: WBC 7.0, RBC 3.37 L, Hgb 10.6 L, Hct 33.2 L, MCV 98.5 H, MCH 31.5, MCHC 31.9 L, RDW Std Deviation 64.9 H, RDW Coeff of Sophie 18.2 H, Plt Count 150, MPV 11.0, Immature Gran % (Auto) 0.300, Neut % (Auto) 67.9, Lymph % (Auto) 23.0, Sutter % (Auto) 6.6, Eos % (Auto) 1.9, Baso % (Auto) 0.3, Absolute Neuts (auto) 4.7, Absolute Lymphs (auto) 1.60, Nucleated RBC % 0, PT 14.4, INR 1.1, APTT 28.9, Sodium 144, Potassium 4.0, Chloride 111 H, Carbon Dioxide 29.0, Anion Gap 4 L, BUN 34 H, Creatinine 1.76 H, Estim Creat Clear Calc 34.03, Est GFR (MDRD) Af Amer 48 L, Est GFR (MDRD) Non-Af 40 L, BUN/Creatinine Ratio 19.3, Glucose 61 L, Calcium 9.2, Total Bilirubin 0.40, AST 40 H, ALT 28, Alkaline Phosphatase 122 H, Troponin I High Sens 13, B-Natriuretic Peptide 206.7 H, Total Protein 6.6, Albumin 2.9 L, Globulin 3.7, Albumin/Globulin Ratio 0.8 L 05/12/24 17:32: Blood Type AB NEGATIVE, Antibody Screen NEGATIVE 05/12/24 19:27: Lactic Acid 0.8 05/12/24 19:34: Urine Color Yellow, Urine Clarity Sl. Cloudy, Urine pH 5.0, Ur Specific [place] 1.015, Urine Protein 15 H, Urine Glucose (UA) Normal, Urine Ketones Negative, Urine Occult Blood Negative, Urine Nitrite Negative, Urine Bilirubin Negative, Urine Urobilinogen Normal, Ur Leukocyte Esterase Negative, Urine RBC 0 SEEN, Urine WBC 0-5 SEEN, Ur Squamous Epith Cells 0-5 SEEN, Urine Bacteria 0 SEEN, Urine Mucus 0 SEEN 05/12/24 20:37: Troponin I High Sens 12 05/12/24 23:45: POC Glucose 84 05/13/24 05:11: POC Glucose 84 05/13/24 06:09: WBC 4.5, RBC 2.78 L, Hgb 8.6 L, Hct 26.9 L, MCV 96.8 H, MCH 30.9, MCHC 32.0, RDW Std Deviation 63.7 H, RDW Coeff of Sophie 17.9 H, Plt Count 110 L, MPV 10.9, Immature Gran % (Auto) 0.200, Neut % (Auto) 67.0, Lymph % (Auto) 22.9, Sutter % (Auto) 7.9, Eos % (Auto) 1.8, Baso % (Auto) 0.2, Absolute Neuts (auto) 3.0, Absolute Lymphs (auto) 1.04, Nucleated RBC % 0, Sodium 144, Potassium 3.9, Chloride 113 H, Carbon Dioxide 25.0, Anion Gap 6, BUN 31 H, Creatinine 1.54 H, Estim Creat Clear Calc 38.90, Est GFR (MDRD) Af Amer 56 L, Est GFR (MDRD) Non-Af 46 L, BUN/Creatinine Ratio 20.1 H, Glucose 86, Hemoglobin A1c 5.0, Calcium 8.4 L, Phosphorus 3.9, Magnesium 2.2, Total Bilirubin 0.40, AST 28, ALT 22, Alkaline Phosphatase 100, Total Protein 5.5 L, Albumin 2.4 L, Globulin 3.1, Albumin/Globulin Ratio 0.8 L, TSH 1.05 Micro: Microbiology 05/12/24 22:51 Urine Catheter - Catheter Legionella Antigen - Final 05/12/24 22:51 Urine Catheter - Catheter Streptococcus pneumoniae Antigen (M - Final 05/12/24 18:55 Stool Stool Occult Blood (HESHAM) - Final Occult Blood Positive Rhythm Strip Rhythm Strip: A-fib Rate: 56 Ectopy: None Imaging Radiology Impression Brain CT 05/12/24 18:09 IMPRESSION: 1. No acute intracranial abnormality. There has been no significant change from the reference exam. 2. Stable senescent change with small vessel ischemia. Electronically Signed: Nahid Salazar MD at 19:25 EDT , Chest X-Ray 05/12/24 18:09 IMPRESSION: No radiographic evidence of acute cardiopulmonary disease. Electronically Signed: Nahid Salazar MD at 19:25 EDT , Abdomen/Pelvis CT 05/12/24 19:39 IMPRESSION: Left-sided effusion with left lower lobe consolidation which may represent. There are no acute abnormalities in the abdomen or pelvis. Electronically Signed: Nahid Salazar MD at 20:26 EDT , Active Medications Active Medications Active Medications: Current Medications Generic Name Dose Route Start Last Admin Trade Name Freq PRN Reason Stop Dose Admin Albuterol Sulfate 2.5 mg 05/12/24 21:37 Albuterol 2.5 Mg/3 Ml Vial.Neb. INHALATION Q6H PRN SHORTNESS OF BREATH/WHEEZING Calamine/Phenol 1 applic 05/12/24 22:00 05/13/24 05:13 Menthol/Lanolin/Calamine/Znox 113 Gm Tube TOPICAL 1 applic TID LESLY Administration Protocol Glucagon 1 mg 05/12/24 21:37 Glucagon 1 Mg/Ml Syringe IM X1 PRN HYPOGLYCEMIA Protocol Guaifenesin 600 mg 05/13/24 22:00 Guaifenesin 600 Mg Tablet PO BID LESLY Piperacillin Sod/Tazobactam 50 mls @ 12.5 mls/hr 05/12/24 22:00 05/13/24 05:13 Sod 3.375 gm/ Sodium Chloride IV 12.5 mls/hr Q8 LESLY Administration Pantoprazole Sodium 80 mg/ 100 mls @ 10 mls/hr 05/12/24 21:37 05/13/24 07:00 Sodium Chloride CONT INF 10 mls/hr Q10H LESLY Administration Dextrose 250 mls @ 0 mls/hr 05/12/24 21:37 Dextrose 10%-Water IV .Q0M PRN HYPOGLYCEMIA Protocol As Directed Levetiracetam 1,000 mg in 100 mls @ 400 mls/hr 05/13/24 10:00 IV Q12 [facility] Insulin Human Lispro 0 unit 05/13/24 00:00 05/13/24 05:13 Insulin Lispro 100 Unit/Ml Insuln.Pen SC Not Given Q6 [facility] Protocol Lorazepam 1 mg 05/13/24 10:06 Lorazepam 2 Mg/Ml Syringe IV X1 PRN seizure Melatonin 10 mg 05/13/24 22:00 Melatonin 10 Mg Tablet PO QHS [facility] Morphine Sulfate 2 mg 05/12/24 21:37 Morphine 2 Mg/Ml Syringe IV Q4 PRN Pain Score 6-10 Ondansetron HCl 4 mg 05/12/24 21:37 Ondansetron 4 Mg/2 Ml Vial IV Q4 PRN NAUSEA/VOMITING Sodium Chloride 10 - 40 ml 05/12/24 21:54 0.9% Saline Lock 10 Ml Syringe IV UD PRN SALINE FLUSH
--- NOTE | 2024-05-13 10:28 | CASEMGMT ---
Addendum entered by Hansa Willett 05/13/24 15:15: Social Work Pt's daughter called back. She states just left [facility] for a care meeting, and is now headed over to [facility] to look at the facility. Urban did not understand from her conversation w/Joby earlier that she was supposed to call to set up a meeting, she states Joby just explained the different levels of care w/hospice and she did not fully understand it. SW reviewed w/daughter that hospice can be at home, at SNF or in the inpt unit and that pt would need to qualify for the inpt unit. Daughter states understanding. She states plans to get paperwork from the hospice facility and read through it, She states she is overwhelmed. SW offered support, suggested to her when she goes over to the inpt unit to see if someone there can help set up a meeting for the morning. SW also gave her the SW number for tomorrow should she need assist tomorrow with setting up a meeting. SW will continue to follow. SHEKHAR Albrecht Addendum entered by Hansa Willett 05/13/24 14:55: Social Work SW called pt's daughter Libia to check in on whether or not she has been over to the inpt hospice unit yet and then set up a meeting. SW left a message, though SW phone number was cut off. Daughter should know the number to the hospital to call back. SW then called hospice to see if Urban has called to set up an appointment time, she has not. DEVANTE will continue to follow. SHEKHAR Albrecht Original Note: Social Work SW spoke w/Joby from [facility]. He states spoke w/daughter Urban, she is going to tour the inpt unit and then call back to set up an assessment time w/hospice. Joby states he did explain to daughter that there are different levels of care, and that going to the inpt hospice unit is not guaranteed. DEVANTE will continue to follow. SHEKHAR Albrecht
--- NOTE | 2024-05-13 10:48 | CASEMGMT ---
Social Work LW/POA for healthcare both scanned into [employer], daughter Urban Cooney is healthcare POA. SHEKHAR Albrecht
[2024-05-13] MEDS: levETIRAcetam IV 1,000 MG/100 ML BAG 400 MG IV (11:09)
[2024-05-13 12:50] LABS: Bedside Glucose 70 mg/dL (74-106)
--- NOTE | 2024-05-13 12:55 | PCM.PRE.AN2 ---
ASA Classification* ASA Classification ASA Classification: 3 Assessment & Plan Anesthesia* Anesthesia Assessment Anesthesia Assessment: Discussed sedation and/or anesthesia options, risks, benefits, and alternatives with patient/parents/legal guardian/POA. Questions invited. The patient/parents/legal guardian/POA seems to understand and agrees to proceed with anesthesia plan. Reviewed the physical assessment, medical history, allergy history and patient home medications list prior to surgery/procedure/anesthetic and documented any changes. Performed airway and anesthesia risk assessments. Anesthesia Type Anesthesia Type: MAC (see written pre anesthesia record for full assessment) Anesthesia Focused Assessment* Temperature: 97 F Pulse Rate: 51 Blood Pressure: 115/60 Respiratory Rate: 16 Pulse Ox: 98 Airway Assessment Mouth opens: >3 cm Mallampati Score: III Focused Labs Anesthesia Preop lab: CBC WBC 4.5 K/mm3 (4.4-11.0) 05/13/24 06:09 RBC 2.78 M/mm3 (4.6-6.2) L 05/13/24 06:09 Hgb 8.6 g/dL (13.0-16.5) L 05/13/24 06:09 Hct 26.9 % (40-54) L 05/13/24 06:09 Plt Count 110 K/mm3 (150-450) L 05/13/24 06:09 CHEMISTRY Potassium 3.9 mmol/L (3.5-5.1) 05/13/24 06:09 Sodium 144 mmol/L (136-145) 05/13/24 06:09 Magnesium 2.2 mg/dL (1.6-2.6) 05/13/24 06:09 Phosphorus 3.9 mg/dL (2.5-4.9) 05/13/24 06:09 BUN 31 mg/dL (7-18) H 05/13/24 06:09 Creatinine 1.54 mg/dL (0.70-1.30) H 05/13/24 06:09 Glucose 86 mg/dL (74-106) 05/13/24 06:09 POC Glucose 70 mg/dL (74-106) L 05/13/24 12:33 TSH 1.05 uIU/mL (0.358-3.74) 05/13/24 06:09 COAG PT 14.4 SECONDS (11.7-14.9) 05/12/24 17:22 Pre-Assessment Diagnosis/Proposed Procedure Planned Operative Procedure(s): egd Anesthesia History Anesthesia History - 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 When Was Last Pacemaker Check QUESTION #4 FULL TEXT: You/Your Family Experience fever (hyperthermia) with Anesthesia Last Oral Intake Last Oral intake: Last Oral Intake NPO since 00:00 05/13/24 07:55 Meds taken in AM with sips of No 05/13/24 07:55 water? Meds patient instructed to take am of surgery PONV PONV - belt glass sander: PONV - belt glass sander Female HX of Motion Sickness HX of N/V After Surgery Non-Smoker Duration of Surgery greater than 60 minutes Number of Risk Factors PONV Score Height & Weight Height & Weight: Anesthesia: Height & Weight Height 5 ft 9 in 05/13/24 07:55 Weight: 76.9 kg 05/13/24 07:55 Body Mass Index (BMI) 25.0 05/13/24 07:55 Respiratory Assessment Respiratory Assessment - belt glass sander: Respiratory Tract Infection Hx - belt glass sander Hx Respiratory Tract Infection Yes: lower lobe pneumonia 05/13/24 07:50 3 STOP Sleep Apnea STOP Sleep Apnea - belt glass sander: STOP Sleep Apnea - belt glass sander Hx Hypertension Yes 05/12/24 21:37 Hx Sleep Apnea Yes 05/12/24 21:37 CPAP Yes 05/12/24 21:37 BIPAP No 05/12/24 21:37 Do you snore loudly (louder than talking or can be heard Do you often feel tired/ fatigued/ sleepy during daytime? Has anyone observed you stop breathing during sleep? STOP Results Positive 05/12/24 21:37 QUESTION #5 FULL TEXT : Do you snore loudly (louder than talking or can be heard through closed doors)? 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 Specify any problems Hx of Preganancy in last 3 N/A 05/12/24 21:37 Months Nurse Filling Out Transfusion RWALKER 05/12/24 21:37 & Questions: Date: 05/12/24 05/12/24 21:37 Time: 21:58 05/12/24 21:37 Patient unable to answer at this time (ie. confused, unrespo /Reproduction History /Reproductive History - belt glass sander: /Reproductive Hx- belt glass sander Hx Now No 05/13/24 07:50 Gestational Age (in weeks): EDC: Hx Hx Para Hx Section SAB No 05/13/24 07:50 Active Medications Active Medications: Current Medications Generic Name Dose Route Start Last Admin Trade Name Freq PRN Reason Stop Dose Admin Albuterol Sulfate 2.5 mg 05/12/24 21:37 Albuterol 2.5 Mg/3 Ml Vial.Neb. INHALATION Q6H PRN SHORTNESS OF BREATH/WHEEZING Calamine/Phenol 1 applic 05/12/24 22:00 05/13/24 05:13 Menthol/Lanolin/Calamine/Znox 113 Gm Tube TOPICAL 1 applic TID LESLY Administration Protocol Glucagon 1 mg 05/12/24 21:37 Glucagon 1 Mg/Ml Syringe IM X1 PRN HYPOGLYCEMIA Protocol Guaifenesin 600 mg 05/13/24 22:00 Guaifenesin 600 Mg Tablet PO BID LESLY Piperacillin Sod/Tazobactam 50 mls @ 12.5 mls/hr 05/12/24 22:00 05/13/24 11:09 Sod 3.375 gm/ Sodium Chloride IV Infused Q8 LESLY Infusion Pantoprazole Sodium 80 mg/ 100 mls @ 10 mls/hr 05/12/24 21:37 05/13/24 07:00 Sodium Chloride CONT INF 10 mls/hr Q10H LESLY Administration Dextrose 250 mls @ 0 mls/hr 05/12/24 21:37 Dextrose 10%-Water IV .Q0M PRN HYPOGLYCEMIA Protocol As Directed Insulin Human Lispro 0 unit 05/13/24 00:00 05/13/24 12:40 Insulin Lispro 100 Unit/Ml Insuln.Pen SC Not Given Q6 [facility] Protocol Melatonin 10 mg 05/13/24 22:00 Melatonin 10 Mg Tablet PO QHS LESLY Morphine Sulfate 2 mg 05/12/24 21:37 Morphine 2 Mg/Ml Syringe IV Q4 PRN Pain Score 6-10 Ondansetron HCl 4 mg 05/12/24 21:37 Ondansetron 4 Mg/2 Ml Vial IV Q4 PRN NAUSEA/VOMITING Sodium Chloride 10 - 40 ml 05/12/24 21:54 0.9% Saline Lock 10 Ml Syringe IV UD PRN SALINE FLUSH PFSH Medical History History of Parkinson's disease History of COPD Sick sinus syndrome History of heart failure Orthostatic hypotension Sciatica Personal history of colonic polyps Confusion Fall History of diabetes mellitus Chronic anemia Adult failure to thrive Bradycardia Fall Acute alteration in mental status CHI (closed head injury) Anemia Essential hypertension Degenerative disk disease Congestive heart failure (CHF) On home oxygen therapy Atrial fibrillation Coronary artery disease Chest pain Lower extremity edema Macrocytic anemia Hallucinations Short-term memory loss Hypoxia Hypertensive urgency Anemia CHF (congestive heart failure) COPD exacerbation Acute respiratory failure with hypoxia Syncope Delirium Orthostatic hypotension Presence of stent in coronary artery (~05/12/21) Atherosclerotic heart disease of [place] coronary artery without angina pectoris HLD (hyperlipidemia) Anemia Vertigo Degenerative disc disease, lumbar Anxiety Diabetes GERD (gastroesophageal reflux disease) Former smoker Parkinson's disease Altered mental status Back pain Hypertension Home Medications ?Medication ?Instructions ?Recorded ?Last Taken ?Type aspirin 81 mg tablet,delayed 81 mg PO DAILY HEART HEALTH 08/16/23 02/16/24 History release (Bertin Low Dose Aspirin) atorvastatin 20 mg tablet 20 mg PO QHS CHOLESTEROL #90 tabs 08/16/23 Unknown Rx cyanocobalamin (vitamin B-12) 500 mcg PO DAILY SUPPLEMENT 02/06/24 Unknown History 1,000 mcg tablet albuterol sulfate 2.5 mg/3 mL 2.5 mg (3 mL) inhalation Q6H PRN 02/14/24 Unknown Rx (0.083 %) solution for nebulization SHORTNESS OF BREATH/WHEEZING #0 mL food supplemt, lactose-reduced 120 ml PO 4X/DAY #0 mL 02/14/24 02/16/24 Rx 0.08 gram-1.5 kcal/mL oral liquid (Ensure Plus High Protein) omeprazole 20 mg capsule,delayed 20 mg PO DAILY 02/16/24 Unknown History release ferrous sulfate 325 mg (65 mg 325 mg PO DAILY #90 tabs 02/27/24 Unknown Rx iron) tablet bisacodyl 10 mg rectal suppository 10 mg [place] DAILY PRN constipation 04/02/24 Unknown History dextrose 40 % oral gel (Gluco 1 ea PO PRN PRN hypoglycemia 04/02/24 Unknown History Burst) glucagon 1 mg/0.2 mL subcutaneous 1 mg subcut PRN PRN hypoglycemia 04/02/24 Unknown History auto-injector magnesium hydroxide 400 mg/5 mL 30 ml PO DAILY PRN constipation 04/02/24 Unknown History oral suspension melatonin 1 mg chewable tablet 1 mg PO QHS INSOMNIA 04/02/24 Unknown History (Children's Sleep (melatonin)) sennosides 8.6 mg-docusate sodium 2 tab-cap PO DAILY PRN constipation 04/02/24 Unknown History 50 mg capsule (Senna Plus) menthol 0.44 %-zinc oxide 20.6 % 1 applic topical TID #0 grams 04/14/24 Unknown Rx topical ointment (Calmoseptine) ascorbate calcium (vitamin C) 500 500 mg PO DAILY 04/24/24 Unknown History mg tablet cholecalciferol (vitamin D3) 125 5,000 unit PO DAILY 04/24/24 Unknown History mcg (5,000 unit) capsule multivitamin 1 tab PO DAILY 04/24/24 Unknown History acetaminophen 325 mg tablet 650 mg (2 x 325 mg) PO Q6H PRN PRN 04/27/24 Unknown Rx Pain 1-10 Or Fever>100.7 #0 tabs furosemide 40 mg tablet (Lasix) 40 mg PO DAILY #60 tabs 04/27/24 Unknown Rx [id number] oral liquid ml PO DAILY PRN 05/12/24 Unknown History Allergy/AdvReac Type Severity Reaction Status Date / Time cat dander (cats) Allergy Mild Rash Verified 02/26/24 01:05 Family History unable to obtain Surgical History History of coronary artery stent placement Presence of coronary angioplasty implant and graft (~05/12/21) Social History household members: spouse housing: [facility] Smoking Status: Former smoker alcohol intake: never substance use type: does not use Review of Systems (Anesthesia) ROS Narrative System reviewed and no additional complaints, except as documented.
--- NOTE | 2024-05-13 14:06 | CON.PCM.GI_ITS ---
HPI Consult Data Date of Consult: 05/13/24 HPI Narrative Reason for Consultation: GI bleed HPI Narrative: KERRY VALDES, is [id number] male presented from jail after episode of melena and bright red blood per rectum as well as 2 seizure episodes. Patient reportedly had a large bowel movement today without was black, thick and tarry. He another bowel movement that was bright red blood per family. He then had seizure episode today where he felt hot. His eyes became fixed and then rolled back in his head and feeling over states that he is arms and legs were stiff and shaking for 4 to 5 minutes. When he came back around he is back to his normal self. He did start complain of a severe headache yesterday and is complained of it today as well. Does not have a history of GI bleed but has a history of anemia and concern for possible GI bleed however was never worked up. Is not any blood thinners. Is not claiming chest pain. States he just does not feel well and feels very weak. No other complaints or concerns reported at this time. No report of any falls or injuries. [facility] Medical History History of Parkinson's disease History of COPD Sick sinus syndrome History of heart failure Orthostatic hypotension Sciatica Personal history of colonic polyps Confusion Fall History of diabetes mellitus Chronic anemia Adult failure to thrive Bradycardia Fall Acute alteration in mental status CHI (closed head injury) Anemia Essential hypertension Degenerative disk disease Congestive heart failure (CHF) On home oxygen therapy Atrial fibrillation Coronary artery disease Chest pain Lower extremity edema Macrocytic anemia Hallucinations Short-term memory loss Hypoxia Hypertensive urgency Anemia CHF (congestive heart failure) COPD exacerbation Acute respiratory failure with hypoxia Syncope Delirium Orthostatic hypotension Presence of stent in coronary artery (~05/12/21) Atherosclerotic heart disease of [place] coronary artery without angina pectoris HLD (hyperlipidemia) Anemia Vertigo Degenerative disc disease, lumbar Anxiety Diabetes GERD (gastroesophageal reflux disease) Former smoker Parkinson's disease Altered mental status Back pain Hypertension Home Medications ?Medication ?Instructions ?Recorded ?Last Taken ?Type aspirin 81 mg tablet,delayed 81 mg PO DAILY HEART HEALTH 08/16/23 02/16/24 History release (Bertin Low Dose Aspirin) atorvastatin 20 mg tablet 20 mg PO QHS CHOLESTEROL #90 tabs 08/16/23 Unknown Rx cyanocobalamin (vitamin B-12) 500 mcg PO DAILY SUPPLEMENT 02/06/24 Unknown History 1,000 mcg tablet albuterol sulfate 2.5 mg/3 mL 2.5 mg (3 mL) inhalation Q6H PRN 02/14/24 Unknown Rx (0.083 %) solution for nebulization SHORTNESS OF BREATH/WHEEZING #0 mL food supplemt, lactose-reduced 120 ml PO 4X/DAY #0 mL 02/14/24 02/16/24 Rx 0.08 gram-1.5 kcal/mL oral liquid (Ensure Plus High Protein) omeprazole 20 mg capsule,delayed 20 mg PO DAILY 02/16/24 Unknown History release ferrous sulfate 325 mg (65 mg 325 mg PO DAILY #90 tabs 02/27/24 Unknown Rx iron) tablet bisacodyl 10 mg rectal suppository 10 mg [place] DAILY PRN constipation 04/02/24 Unknown History dextrose 40 % oral gel (Gluco 1 ea PO PRN PRN hypoglycemia 04/02/24 Unknown History Burst) glucagon 1 mg/0.2 mL subcutaneous 1 mg subcut PRN PRN hypoglycemia 04/02/24 Unknown History auto-injector magnesium hydroxide 400 mg/5 mL 30 ml PO DAILY PRN constipation 04/02/24 Unknown History oral suspension melatonin 1 mg chewable tablet 1 mg PO QHS INSOMNIA 04/02/24 Unknown History (Children's Sleep (melatonin)) sennosides 8.6 mg-docusate sodium 2 tab-cap PO DAILY PRN constipation 04/02/24 Unknown History 50 mg capsule (Senna Plus) menthol 0.44 %-zinc oxide 20.6 % 1 applic topical TID #0 grams 04/14/24 Unknown Rx topical ointment (Calmoseptine) ascorbate calcium (vitamin C) 500 500 mg PO DAILY 04/24/24 Unknown History mg tablet cholecalciferol (vitamin D3) 125 5,000 unit PO DAILY 04/24/24 Unknown History mcg (5,000 unit) capsule multivitamin 1 tab PO DAILY 04/24/24 Unknown History acetaminophen 325 mg tablet 650 mg (2 x 325 mg) PO Q6H PRN PRN 04/27/24 Unknown Rx Pain 1-10 Or Fever>100.7 #0 tabs furosemide 40 mg tablet (Lasix) 40 mg PO DAILY #60 tabs 04/27/24 Unknown Rx GI-mlfvzvoyepctg-DG oral liquid ml PO DAILY PRN 05/12/24 Unknown History Allergy/AdvReac Type Severity Reaction Status Date / Time cat dander (cats) Allergy Mild Rash Verified 02/26/24 01:05 Family History unable to obtain Surgical History History of coronary artery stent placement Presence of coronary angioplasty implant and graft (~05/12/21) Social History household members: spouse housing: jail Smoking Status: Former smoker alcohol intake: never substance use type: does not use ROS ROS Narrative Review of systems: General: Patient admits to sweats and generalized weakness but denies fever or chills. HENT: Patient admits to headache but denies runny nose or sore throat. EYES: Denies changes in vision Resp: Denies cough, denies shortness of breath Cardiac: Denies chest pain, palpitations or heart racing. GI: Patient admits to melanotic stools but denies abdominal pain, nausea or vomiting. : Denies changes in urination Extremity: Denies swelling Musculoskeletal: Feels somewhat generally weak and unwell Neuro: Patient admits to headache and has chronic baseline dementia complicated by witnessed tonic-clonic seizure and postictal period. Heme: Patient admitted to melanotic stools followed by some bright red blood as per HPI. Skin: Denies rashes Psychiatric: No complaints voiced related to uncontrolled depression or anxiety. Endocrine: No polyuria, polydipsia or polyphagia. The rest of the 14 point ROS was negative except for positives in HPI. Physical Exam Const alert, no apparent distress and average body habitus General Appearance: cooperative Orientation / Consciousness: confused HEENT normocephalic, head/scalp atraumatic, hearing grossly normal bilaterally and moist oral mucous membranes Eyes PERRL and EOMs intact bilaterally Eyes Narrative: Pale conjunctivae noted. Neck no lymphadenopathy and supple Resp normal respiratory effort, no retractions and no use of accessory muscles Resp Narrative: Decreased breath sounds over Left lower lobe. Cardio Cardio Narrative: Irregularly irregular and bradycardic in the 50 to 65 bpm range. GI normal to inspection, nondistended, normoactive bowel sounds, soft to palpation, non-tender and non-distended Extremity normal to inspection and full ROM Skin Skin Narrative: Patient has no evidence of rash, jaundice or abscess. Neuro CN's II-XII intact bilaterally, moves all extremities and no focal motor deficits Sensorium / Orientation: awake, alert, oriented to person and oriented to place Speech: speech normal Psych affect normal Lab / Micro Data 05/13/24 06:09 05/13/24 06:09 Labs: Laboratory Results - last 24 hr 05/12/24 17:22: WBC 7.0, RBC 3.37 L, Hgb 10.6 L, Hct 33.2 L, MCV 98.5 H, MCH 31.5, MCHC 31.9 L, RDW Std Deviation 64.9 H, RDW Coeff of Sophie 18.2 H, Plt Count 150, MPV 11.0, Immature Gran % (Auto) 0.300, Neut % (Auto) 67.9, Lymph % (Auto) 23.0, [place] % (Auto) 6.6, Eos % (Auto) 1.9, Baso % (Auto) 0.3, Absolute Neuts (auto) 4.7, Absolute Lymphs (auto) 1.60, Nucleated RBC % 0, PT 14.4, INR 1.1, APTT 28.9, Sodium 144, Potassium 4.0, Chloride 111 H, Carbon Dioxide 29.0, Anion Gap 4 L, BUN 34 H, Creatinine 1.76 H, Estim Creat Clear Calc 34.03, Est GFR (MDRD) Af Amer 48 L, Est GFR (MDRD) Non-Af 40 L, BUN/Creatinine Ratio 19.3, G lucose 61 L, Calcium 9.2, Total Bilirubin 0.40, AST 40 H, ALT 28, Alkaline Phosphatase 122 H, Troponin I High Sens 13, B-Natriuretic Peptide 206.7 H, Total Protein 6.6, Albumin 2.9 L, Globulin 3.7, Albumin/Globulin Ratio 0.8 L 05/12/24 17:32: Blood Type AB NEGATIVE, Antibody Screen NEGATIVE 05/12/24 19:27: Lactic Acid 0.8 05/12/24 19:34: Urine Color Yellow, Urine Clarity Sl. Cloudy, Urine pH 5.0, Ur Specific [place] 1.015, Urine Protein 15 H, Urine Glucose (UA) Normal, Urine Ketones Negative, Urine Occult Blood Negative, Urine Nitrite Negative, Urine Bilirubin Negative, Urine Urobilinogen Normal, Ur Leukocyte Esterase Negative, Urine RBC 0 SEEN, Urine WBC 0-5 SEEN, Ur Squamous Epith Cells 0-5 SEEN, Urine Bacteria 0 SEEN, Urine Mucus 0 SEEN 05/12/24 20:37: Troponin I High Sens 12 05/12/24 23:45: POC Glucose 84 05/13/24 05:11: POC Glucose 84 05/13/24 06:09: WBC 4.5, RBC 2.78 L, Hgb 8.6 L, Hct 26.9 L, MCV 96.8 H, MCH 30.9, MCHC 32.0, RDW Std Deviation 63.7 H, RDW Coeff of Sophie 17.9 H, Plt Count 110 L, MPV 10.9, Immature Gran % (Auto) 0.200, Neut % (Auto) 67.0, Lymph % (Auto) 22.9, [place] % (Auto) 7.9, Eos % (Auto) 1.8, Baso % (Auto) 0.2, Absolute Neuts (auto) 3.0, Absolute Lymphs (auto) 1.04, Nucleated RBC % 0, Sodium 144, Potassium 3.9, Chloride 113 H, Carbon Dioxide 25.0, Anion Gap 6, BUN 31 H, C reatinine 1.54 H, Estim Creat Clear Calc 38.90, Est GFR (MDRD) Af Amer 56 L, Est GFR (MDRD) Non-Af 46 L, BUN/Creatinine Ratio 20.1 H, Glucose 86, Hemoglobin A1c 5.0, Calcium 8.4 L, Phosphorus 3.9, Magnesium 2.2, Total Bilirubin 0.40, AST 28, ALT 22, Alkaline Phosphatase 100, Total Protein 5.5 L, Albumin 2.4 L, Globulin 3.1, Albumin/Globulin Ratio 0.8 L, TSH 1.05 05/13/24 12:33: POC Glucose 70 L Micro: Microbiology 05/12/24 22:51 Urine Catheter - Catheter Legionella Antigen - Final 05/12/24 22:51 Urine Catheter - Catheter Streptococcus pneumoniae Antigen (M - Final 05/12/24 18:55 Stool Stool Occult Blood (HESHAM) - Final Occult Blood Positive Rhythm Strip Rhythm Strip: A-fib Rate: 56 Ectopy: None Imaging Radiology Impression Brain CT 05/12/24 18:09 IMPRESSION: 1. No acute intracranial abnormality. There has been no significant change from the reference exam. 2. Stable senescent change with small vessel ischemia. Electronically Signed: Nahid Salazar MD at 19:25 EDT , Chest X-Ray 05/12/24 18:09 IMPRESSION: No radiographic evidence of acute cardiopulmonary disease. Electronically Signed: Nahid Salazar MD at 19:25 EDT , Abdomen/Pelvis CT 05/12/24 19:39 IMPRESSION: Left-sided effusion with left lower lobe consolidation which may represent. There are no acute abnormalities in the abdomen or pelvis. Electronically Signed: Nahid Salazar MD at 20:26 EDT , Assessment & Plan Assessment/Plan (1) Melena: (2) Adverse drug reaction: QUALIFIERS: Encounter type: initial encounter Qualified Code(s): T50.905A - Adverse effect of unspecified drugs, medicaments and biological substances, initial encounter (3) Tonic-clonic seizure: (4) Left lower lobe pneumonia: QUALIFIERS: Pneumonia type: due to unspecified organism Qualified Code(s): J18.9 - Pneumonia, unspecified organism (5) AUGUSTIN (acute kidney injury): PLAN: Plan 78-year-old gentleman with multiple comorbidities presents with presyncope or syncope and GI bleed UGIB due to suspected PUD. He will need to undergo an upper endoscopy to evaluate his upper GI tract. He was explained alternatives, risk, benefits including not withstanding bleeding, infection, sepsis, perforation, need for emergent surgery . He will have an ASA of 3.;Continue IV Protonix drip begun in the ER. Type & Screen blood and transfuse for hemoglobin <7 g/dL. . Charges/Coding Visit Charges Inpatient E&M: 30092 Init Hosp L3
--- NOTE | 2024-05-13 14:24 | OP.CCLET_ITS ---
05/13/2024 Lynnette Erazo Md Re : Upper GI endoscopy procedure for Jc Warner Dear Dr. Erazo This procedure was performed on Monday, May 13, 2024. 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 - Non-bleeding gastric ulcer with no stigmata of bleeding. Biopsied. - No gross lesions in the second portion of the duodenum. Recommendations : - Discharge patient to home. - Resume previous diet. - Continue present medications. My findings are described in the full procedure note, which is enclosed. If I can be of further assistance, please feel free to contact me at . Sincerely, Houston Luna, 05/13/2024 2:24:13 PM This report has been signed electronically.
--- NOTE | 2024-05-13 14:24 | OP.EGD_ITS ---
Patient Name: Jc Warner Procedure Date: 05/13/2024 2:10 PM Date of : 1945 Age: 78 Procedure: Upper GI endoscopy Indications: Recent gastrointestinal bleeding Providers: Houston Luna DO Medicines: Monitored Anesthesia Care Patient Profile: This is a 78 year old male. Refer to note in patient chart for documentation of history and physical. Patient has symptoms of acute epigastric abdominal pain. Complications: No immediate complications. Procedure: Pre-Anesthesia Assessment: - Prior to the procedure, a History and Physical was performed, and patient medications and allergies were reviewed. The patient is competent. The risks and benefits of the procedure and the sedation options and risks were discussed with the patient. All questions were answered and informed consent was obtained. Patient identification and proposed procedure were verified by the physician in the pre-procedure area. Mental Status Examination: alert and oriented. Airway Examination: normal oropharyngeal airway and neck mobility. Respiratory Examination: clear to auscultation. CV Examination: normal. Prophylactic Antibiotics: The patient does not require prophylactic antibiotics. Prior Anticoagulants: The patient has taken no anticoagulant or antiplatelet agents. ASA Grade Assessment: III - A patient with severe systemic disease. After reviewing the risks and benefits, the patient was deemed in satisfactory condition to undergo the procedure. The anesthesia plan was to use monitored anesthesia care (MAC). Immediately prior to administration of medications, the patient was re-assessed for adequacy to receive sedatives. The heart rate, respiratory rate, oxygen saturations, blood pressure, adequacy of pulmonary ventilation, and response to care were monitored throughout the procedure. The physical status of the patient was re-assessed after the procedure. After obtaining informed consent, the endoscope was passed under direct vision. Throughout the procedure, the patient's blood pressure, pulse, and oxygen saturations were monitored continuously. The Endoscope was introduced through the mouth, and advanced to the second part of duodenum. The upper GI endoscopy was accomplished without difficulty. The patient tolerated the procedure well. Scope In: 2:14:34 PM Scope Out: 2:19:08 PM Total Procedure Duration Time 0 hours 4 minutes 34 seconds Findings: There were esophageal mucosal changes suspicious for short-segment Elaine's esophagus present in the lower third of the esophagus. The maximum longitudinal extent of these mucosal changes was 4 cm in length. One non-bleeding cratered gastric ulcer with no stigmata of bleeding was found in the gastric body. The lesion was 6 mm in largest dimension. Biopsies were taken with a cold forceps for histology. Verification of patient identification for the specimen was done. Estimated blood loss was minimal. Biopsies were taken with a cold forceps for Helicobacter pylori testing. Verification of patient identification for the specimen was done. Estimated blood loss was minimal. No gross lesions were noted in the second portion of the duodenum. 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 - Non-bleeding gastric ulcer with no stigmata of bleeding. Biopsied. - No gross lesions in the second portion of the duodenum. Recommendation: - Discharge patient to home. - Resume previous diet. - Continue present medications. Procedure Code(s): --- Professional --- 19368, Esophagogastroduodenoscopy, flexible, transoral; with biopsy, single or multiple CPT copyright 2021 [employer]. All rights reserved. The codes documented in this report are preliminary and upon fitter hand review may be revised to meet current compliance requirements. Houston Luna DO 05/13/2024 2:24:13 PM This report has been signed electronically. Number of Addenda: 0 Note Initiated On: 05/13/2024 2:10 PM
--- NOTE | 2024-05-13 14:27 | PCM.POST.ANE ---
Anesthesia: Postop Eval I Current Vital Signs Temperature: 96.2 F Pulse Rate: 56 Blood Pressure: 97/67 Respiratory Rate: 16 Pulse Ox: 98 Assessment Airway patent: Yes Spontaneous unlabored respirations: Yes nausea: No Vomiting: No Anesthesia Complication: No Fluid Hydration Crystalloid volume administer (ml): 200 Total IV fluid infused: 200 Progress Note Anesthesia document: Postop Eval 1 completed: Yes
--- NOTE | 2024-05-13 14:45 | EGD_PTH ---
[id number] U#:[id number] AGE/SX: 78/M ROOM: [facility] RE05/12/[address]: Dr. Mary Carmen Gardner MD : 1945 BED: 1 DIS: 05/16/2024 SPEC #: [id number] RECD: 05/13/24 16:30 STATUS: KYLE REQ #: [id number] YO: 05/13/24 14:[address]: Houston Luna DEPT: SURGICAL PATHOLOGY RECD BY: Bi Barajas ENTERED: 05/14/24 07:09 SP TYPE: EGD BIOPSY OTHR DR: MD Dr. Krystal Gómez MD Archana Hinduja, MD Dr. Allison Jordan, MD Colleen Sibley Dr., MD Dr. David de Lorenzo, DO Dr. Deepak Gulati, MD Dr. Hera Kamdar, MD Dr. Jan Bittar, MD Dr. James Burke, MD Dr. Jyothi Gudla, MD Jesse Mindel, MS MD Mckayla Fregoso MD LEBRON PAIGE, MD Margaret Beigel, MD Dr. Matthew Gusler, MD Dr. Maryam Mian, MD Dr. Mohamed Ridha, MD Dr. Mhd Ezzat Zaghlouleh, MD Nabil Khandker, MD Dr. Paige Pierce, MD Dr. Peter Robinson, MD Dr. Rami Ibrahim, MD Dr. Sushil Lakhani, MD Sarita Maturu, MD Dr. Vivien Lee, MD Yousef Hannawi, MD Tissues: Gastric mucous membrane Procedures: Surgery Specimen Level IV HEADER OPERATION: EGD with biopsy PRE-OP DIAGNOSIS: GI bleed TISSUE SUBMITTED: Gastric ulcer MICROSCOPIC DIAGNOSIS Gastric ulcer, biopsy: Chronic gastritis with focal active gastritis. Denudation of mucosa, focal. See comment. AM/mr 05/15/2024 COMMENT The results of immunohistochemistry for Helicobacter pylori will be reported separately ([id number]). MICROSCOPIC DESCRIPTION Slides are reviewed. GROSS DESCRIPTION Received in fixative is one container labeled with the patient's name and designated Gastric ulcer biopsy. The specimen consists of multiple irregular fragments of light luna soft tissue that in aggregate measure 1.0 x 0.3 x 0.1 cm. The specimen is totally submitted in one cassette. 05/14/2024 TC:2 CPT:49543
--- NOTE | 2024-05-13 14:45 | IMM_PTH ---
PATIENT: KERRY VALDES LOC: [facility] U#:[id number] AGE/SX: 78/M ROOM: [facility] RE05/12/[address]: Dr. Mary Carmen Gardner MD : 1945 BED: 1 DIS: 05/16/2024 SPEC #: [id number] RECD: 05/14/24 08:11 STATUS: SOUT REQ #: [id number] YO: 05/13/24 14:[address]: Houston Luna DEPT: IMMUNOHISTOCHEMISTRY RECD BY: Octavio Hubbard ENTERED: 05/14/24 08:11 SP TYPE: IMMUNO OTHR DR: MD Dr. Krystal Gómez MD Archana Hinduja, MD Dr. Allison Jordan, DO Dr. Alicia Zha, MD Danielle Becker, MD Dr. David de Lorenzo, DO Dr. Deepak Gulati, MD Dr. Hera Kamdar, MD Dr. Jan Bittar, MD Dr. James Burke, MD Dr. Jyothi Gudla, MD Jesse Mindel, MS MD Mckayla Fregoso MD LEBRON PAIGE, MD Margaret Beigel, MD Dr. Matthew Gusler, MD Dr. Maryam Mian, MD Dr. Mohamed Ridha, MD Dr. Mhd Ezzat Zaghlouleh, MD Nabil Khandker, MD Dr. Paige Pierce, MD Dr. Peter Robinson, MD Dr. Rami Ibrahim, MD Dr. Sushil Lakhani, MD Sarita Maturu, MD Dr. Vivien Lee, MD Yousef Hannawi, MD Tissues: Gastric mucous membrane Procedures: H Pylori (initial) Comments: @ Ordering doctor for H.PYLORI edited from to @ by LATASHA at 05/14/24 08 @ Submitting doctor edited from to @ by LATASHA at 05/14/24810 PHYSICIAN & INSTITUTION [place] [id number] SPECIMEN INFORMATION: Tissue Source: Gastric ulcer biopsy Clinical Info: GI bleed Specimen Number: [id number] CPT code: 65775 METHODOLOGY: Deparaffinized sections of prefer/formalin-fixed tissue or PAP/DQ stained slides are incubated with monoclonal/polyclonal antibodies/oligonucleotide probes. Localization is made via biotin free immunoperoxidase method. Appropriate controls are performed and reacted as expected. Results on target cell population are indicated in the following table: RESULTS: ANTIBODY / CLONE RESULT H Pylori (polyclonal) negative These tests were developed and their performance characteristics determined by [facility]. They may not have been cleared or approved by the U.S. Food and Drug Administration. The FDA has determined that such clearance or approval is not necessary. The above immunohistochemical/dualISH markers are ordered and reviewed by the Pathologist. INTERPRETATION: Gastric ulcer, biopsy: Negative for Helicobacter pylori organisms. CHRIS/ 05/15/2024
--- NOTE | 2024-05-13 15:24 | PCM.PN.HOSP ---
Reason for Visit Reason for Visit: Diagnoses Pneumonia, unspecified organism (05/12/24) Melena (05/12/24) Acute kidney failure, unspecified (05/12/24) Adverse effect of unspecified drugs, medicaments and biological substances, initial encounter (05/12/24) Subjective Subjective Patient will wake up to stimulus but not verbally answering questions Objective Data Objective Data Vital Signs: Vital Signs Temp Pulse Resp BP Pulse Ox O2 Del Method O2 Flow Rate 97.1 F L 54 L 16 98/67 96 Room Air 2 05/13/24 14:40 05/13/24 14:40 05/13/24 14:40 05/13/24 14:40 05/13/24 14:40 05/13/24 14:40 05/13/24 14:35 Oxygen Flow Rate (L/min) 2 Oxygen Delivery Method Room Air Weight: 76.9 kg Body Mass Index (BMI) 25.0 Intake & Output: Intake and Output for Last 24 Hours 05/11/24 05/12/24 05/13/24 23:59 23:59 23:59 Intake Total 1247 / 1247 1675.84 / 1675.84 Output Total 80 / 80 Balance 1247 / 1167 1595.84 / 1595.84 Lab / Micro Data 05/13/24 06:09 05/13/24 06:09 Labs: Laboratory Results - last 24 hr 05/12/24 17:22: WBC 7.0, RBC 3.37 L, Hgb 10.6 L, Hct 33.2 L, MCV 98.5 H, MCH 31.5, MCHC 31.9 L, RDW Std Deviation 64.9 H, RDW Coeff of Sophie 18.2 H, Plt Count 150, MPV 11.0, Immature Gran % (Auto) 0.300, Neut % (Auto) 67.9, Lymph % (Auto) 23.0, [place] % (Auto) 6.6, Eos % (Auto) 1.9, Baso % (Auto) 0.3, Absolute Neuts (auto) 4.7, Absolute Lymphs (auto) 1.60, Nucleated RBC % 0, PT 14.4, INR 1.1, APTT 28.9, Sodium 144, Potassium 4.0, Chloride 111 H, Carbon Dioxide 29.0, Anion Gap 4 L, BUN 34 H, Creatinine 1.76 H, Estim Creat Clear Calc 34.03, Est GFR (MDRD) Af Amer 48 L, Est GFR (MDRD) Non-Af 40 L, BUN/Creatinine Ratio 19.3, Glucose 61 L, Calcium 9.2, Total Bilirubin 0.40, AST 40 H, ALT 28, Alkaline Phosphatase 122 H, Troponin I High Sens 13, B-Natriuretic Peptide 206.7 H, Total Protein 6.6, Albumin 2.9 L, Globulin 3.7, Albumin/Globulin Ratio 0.8 L 05/12/24 17:32: Blood Type AB NEGATIVE, Antibody Screen NEGATIVE 05/12/24 19:27: Lactic Acid 0.8 05/12/24 19:34: Urine Color Yellow, Urine Clarity Sl. Cloudy, Urine pH 5.0, Ur Specific [place] 1.015, Urine Protein 15 H, Urine Glucose (UA) Normal, Urine Ketones Negative, Urine Occult Blood Negative, Urine Nitrite Negative, Urine Bilirubin Negative, Urine Urobilinogen Normal, Ur Leukocyte Esterase Negative, Urine RBC 0 SEEN, Urine WBC 0-5 SEEN, Ur Squamous Epith Cells 0-5 SEEN, Urine Bacteria 0 SEEN, Urine Mucus 0 SEEN 05/12/24 20:37: Troponin I High Sens 12 05/12/24 23:45: POC Glucose 84 05/13/24 05:11: POC Glucose 84 05/13/24 06:09: WBC 4.5, RBC 2.78 L, Hgb 8.6 L, Hct 26.9 L, MCV 96.8 H, MCH 30.9, MCHC 32.0, RDW Std Deviation 63.7 H, RDW Coeff of Sophie 17.9 H, Plt Count 110 L, MPV 10.9, Immature Gran % (Auto) 0.200, Neut % (Auto) 67.0, Lymph % (Auto) 22.9, [place] % (Auto) 7.9, Eos % (Auto) 1.8, Baso % (Auto) 0.2, Absolute Neuts (auto) 3.0, Absolute Lymphs (auto) 1.04, Nucleated RBC % 0, Sodium 144, Potassium 3.9, Chloride 113 H, Carbon Dioxide 25.0, Anion Gap 6, BUN 31 H, Creatinine 1.54 H, Estim Creat Clear Calc 38.90, Est GFR (MDRD) Af Amer 56 L, Est GFR (MDRD) Non-Af 46 L, BUN/Creatinine Ratio 20.1 H, Glucose 86, Hemoglobin A1c 5.0, Calcium 8.4 L, Phosphorus 3.9, Magnesium 2.2, Total Bilirubin 0.40, AST 28, ALT 22, Alkaline Phosphatase 100, Total Protein 5.5 L, Albumin 2.4 L, Globulin 3.1, Albumin/Globulin Ratio 0.8 L, TSH 1.05 05/13/24 12:33: POC Glucose 70 L Micro: Microbiology 05/12/24 22:51 Urine Catheter - Catheter Legionella Antigen - Final 05/12/24 22:51 Urine Catheter - Catheter Streptococcus pneumoniae Antigen (M - Final 05/12/24 18:55 Stool Stool Occult Blood (HESHAM) - Final Occult Blood Positive Radiography Diagnostic Testing: Radiology Impression Brain CT 05/12/24 18:09 IMPRESSION: 1. No acute intracranial abnormality. There has been no significant change from the reference exam. 2. Stable senescent change with small vessel ischemia. Electronically Signed: Nahid Salazar MD at 19:25 EDT , Chest X-Ray 05/12/24 18:09 IMPRESSION: No radiographic evidence of acute cardiopulmonary disease. Electronically Signed: Nahid Salazar MD at 19:25 EDT , Abdomen/Pelvis CT 05/12/24 19:39 IMPRESSION: Left-sided effusion with left lower lobe consolidation which may represent. There are no acute abnormalities in the abdomen or pelvis. Electronically Signed: Nahid Salazar MD at 20:26 EDT , Rhythm Strip Rhythm Strip: A-fib Rate: 56 Ectopy: None Physical Exam Narrative General: Patient wakes up but would not answer orientation questions HEENT: Normocephalic Eyes: Anicteric, normal conjunctiva, extraocular movements grossly intact Neck: Supple Respiratory: Coarse on left side and transmitted upper airway sounds Cardiovascular: Regular rate and rhythm GI: Soft, nontender, nondistended Musculoskeletal: Moving all extremities Neuro: No overt focal neurological deficits but patient not participating in exam Skin: No rashes appreciated Psych: Not cooperative secondary to mental status Assessment & Plan Assessment/Plan (1) Melena: (2) Adverse drug reaction: QUALIFIERS: Encounter type: initial encounter Qualified Code(s): T50.905A - Adverse effect of unspecified drugs, medicaments and biological substances, initial encounter (3) Left lower lobe pneumonia: QUALIFIERS: Pneumonia type: due to unspecified organism Qualified Code(s): J18.9 - Pneumonia, unspecified organism (4) AUGUSTIN (acute kidney injury): PLAN: Plan # Upper GI bleed secondary to gastric ulcer -Presented with melena and Hemoccult positive stools and placed on Protonix drip -Hemoglobin did initially downtrend but did not meet threshold for transfusion -Upper endoscopy 05/13 showed gastric ulcer though at the time was not bleeding -Will change Protonix drip to twice daily -Also start Carafate -Holding aspirin # Altered mental status -Patient had shaking movements and there is query of seizures the patient was given Keppra -EEG shows encephalopathy -Neurology evaluated and doubt seizure, it is thought this was more convulsive syncope and recommended discontinuing Keppra -Keppra DC'd -Treat underlying illnesses # suspect aspiration pneumonia - there was concern for aspiration during patient's convulsive event and CT with left lower lobe consolidation and patient with cough -Continue Zosyn at this time # Acute kidney injury -Patient had creatinine of 1.76 on admission which was up from 0.98 on last admission -Lasix held and patient given IV fluid with creatinine to 1.54 -Repeat in the a.m. -Continue to hold Lasix # Dementia -taken off of donepezil given bradycardia -of note patient overall with poor prognosis, daughter discussed hospice consult, hospice consult placed. Chronic medical problems: # Parkinson's disease - Stable with patient currently on no anti-Parkinson's agent at this time. #History of CAD; s/p RCA stent 2020 -continue statin, aspirin held #Essential hypertension - Hold scheduled antihypertensives. #DVT ppx: SCDs Mary Carmen Gardner MD Time spent in the patient's overall evaluation,decision-making process, review of diagnostic data, adjustment of management, discussion with other providers, nursing nursing and ancillary staff involved in patient's care documentation, 36 minutes Charges/Coding Visit Charges Inpatient E&M: 37514 Subs Hosp L2
--- NOTE | 2024-05-13 16:15 | POSTOPAN2_ITS ---
Anesthesia Postop Eval I Sum Postop Eval Completion status Anesthesia document: Postop Eval 1 completed: Yes Anesthesia Postop Eval I Summary Anesthesia Postop Eval I Summary: Anesthesia Postop Eval I: Assessment Summary Airway patent Yes 05/13/24 14:27 [email or web address] [email or web address] Spontaneous unlabored Yes 05/13/24 14:27 TIE [email or web address] respirations Mental status nausea No 05/13/24 14:27 TIE [email or web address] Vomiting No 05/13/24 14:27 TIE [email or web address] Anesthesia Postop Eval I: Fluid Summary Crystalloid volume administer 200 05/13/24 14:27 TIE [email or web address] (ml) Colloids volume administered ( ml) Blood Product volume administered (ml) Total IV fluid infused 200 05/13/24 14:27 TIE [email or web address] Anesthesia Postop Eval I: Summary Notes Anesthesia Complication No 05/13/24 14:27 TIE [email or web address].CSIR Anesthesia Complication Comment: Post-operative progress note Anesthesia: Postop Eval II Evaluation Mental status: Awake and Calm Pain Level: 0 nausea: No Vomiting: No Complications Anesthesia Complication: No
--- NOTE | 2024-05-13 16:15 | PCM.POSTANE2 ---
Anesthesia Postop Eval I Sum Postop Eval Completion status Anesthesia document: Postop Eval 1 completed: Yes Anesthesia Postop Eval I Summary Anesthesia Postop Eval I Summary: Anesthesia Postop Eval I: Assessment Summary Airway patent Yes 05/13/24 14:27 DOUGHNUT MACHINE OPERATOR [email or web address] Spontaneous unlabored Yes 05/13/24 14:27 DOUGHNUT MACHINE OPERATOR HELPER.CSIR respirations Mental status nausea No 05/13/24 14:27 DOUGHNUT MACHINE OPERATOR HELPER.CSIR Vomiting No 05/13/24 14:27 DOUGHNUT MACHINE OPERATOR HELPER.CSIR Anesthesia Postop Eval I: Fluid Summary Crystalloid volume administer 200 05/13/24 14:27 DOUGHNUT MACHINE OPERATOR HELPER.CSIR (ml) Colloids volume administered ( ml) Blood Product volume administered (ml) Total IV fluid infused 200 05/13/24 14:27 DOUGHNUT MACHINE OPERATOR HELPER.CSIR Anesthesia Postop Eval I: Summary Notes Anesthesia Complication No 05/13/24 14:27 DOUGHNUT MACHINE OPERATOR HELPER.CSIR Anesthesia Complication Comment: Post-operative progress note Anesthesia: Postop Eval II Evaluation Mental status: Awake and Calm Pain Level: 0 nausea: No Vomiting: No Complications Anesthesia Complication: No
[2024-05-13] MEDS: 0.9% Saline Lock 10 ML Syringe IV ×2 (17:37→20:36)
--- NOTE | 2024-05-13 18:28 | NURSING ---
Reviewed and agreed on charting with Mckayla Jain RN
[2024-05-13] MEDS: Pantoprazole Sodium 40 MG in 0.9% Normal Saline (100mL MB+) 100 ML 330 MG IV (20:36)
[2024-05-14 02:43] VITALS: BMI 24.7
[2024-05-14 03:43] VITALS: BP 145/74; PULSE 58; RESP 18; TEMP 36.1; O2SAT 99
[2024-05-14] MEDS: Piperacil/Tazobactam 3.375 GM in 0.9% Normal Saline (50mL MB+) 50 ML IV ×3 (05:06→23:08)
[2024-05-14] MEDS: Menthol/Lanolin/Calamine/Znox 113 GM Tube 1 APPLIC TOPICAL ×3 (05:07→22:26)
[2024-05-14 06:45] LABS: Absolute Lymphocyte Count 1.11 X10^3/uL (0.83-4.51); Absolute Neutrophil Count 2.7 X10^3/uL (2.0-7.7); Basophil# 0.02 X10^3/uL; Basophil% 0.5 % (0-1); Eosinophil# 0.09 X10^3/uL; Eosinophils% 2.1 % (0-5); Hematocrit 27.8 % (40-54); Hemoglobin 8.8 g/dL (13.0-16.5); Lymphocyte # 1.11 X10^3/ul (0.83-4.51); Lymphocyte % 26.2 % (19-41); Mean Corp Hgb Conc 31.7 g/dL (32-36); Mean Corpuscular Hgb 31.2 pg (27.0-32.0); Mean Corpuscular Volume 98.6 fL (80-94); Mean Platelet Vol. 10.2 fl (6.2-12.0); Monocyte# 0.32 X10^3/uL; Monocyte% 7.5 % (0-10); NRBC Flagged by Analyzer 0 % (0-5); Neutrophil # 2.69 X10^3/uL (2.7-7.7); Neutrophil % 63.5 % (47-70); POSITIVE COUNT YES; Platelet Count 92 K/mm3 (150-450); RBC Distribution Width CV 17.8 % (11.6-14.6); RBC Distribution Width SD 64.8 fl (35.1-43.9); Red Blood Count 2.82 M/mm3 (4.6-6.2); White Blood Count 4.2 K/mm3 (4.4-11.0)
[2024-05-14 07:05] LABS: Anion Gap 3 (5-15); BUN 24 mg/dL (7-18); BUN/Creat Ratio 16.6 RATIO (10-20); Calcium,Total 8.3 mg/dL (8.5-10.1); Chloride 118 mmol/L (98-107); Creatinine, Serum 1.45 mg/dL (0.70-1.30); EST Glomerular Filtration Rate 50 mL/min (>60); Est Glom Filt Rate - Afr Amer 60 mL/min (>60); Estimated Creatinine Clearance 41.31 ml/min; Glucose 81 mg/dL (74-106); Potassium 3.8 mmol/L (3.5-5.1); Sodium Level 147 mmol/L (136-145)
[2024-05-14 07:45] VITALS: O2SAT 98
[2024-05-14] MEDS: guaiFENesin 600 MG Tablet PO (09:07)
[2024-05-14] MEDS: Pantoprazole Sodium 40 MG in 0.9% Normal Saline (100mL MB+) 100 ML 330 MG IV ×2 (09:27→22:22)
[2024-05-14 09:30] VITALS: BP 108/95; BP 151/77; PULSE 110; PULSE 47; RESP 18; TEMP 36.1; O2SAT 98
--- NOTE | 2024-05-14 10:32 | CASEMGMT ---
Addendum entered by Neyda Orourke 05/14/24 11:41: Social Work SW received call from [facility]. They have no available appointments today. Appointment set for tomorrow at 4pm to meet with pt and dgt. Physician made aware. Physician with questions regarding goals of care. Phone call to pt's dgt and requested she come in today to meet with physician. Dgt agreeable and will be here at 1230 to meet with pt. Physician and nursing notified. LARISSA Josue Original Note: Social Work SW phoned pt's dgt Libia who states she did tour the [facility] yesterday and has received the hospice booklet. Libia with additional question regarding hospice and is agreeable to meet with hospice today. Phone call to [facility] and requested they call Libia and set appointment for today. LARISSA Josue
[2024-05-14 12:22] LABS: Bedside Glucose 84 mg/dL (74-106)
--- NOTE | 2024-05-14 14:50 | PCM.PN.HOSP ---
Reason for Visit Reason for Visit: Diagnoses Other generalized epilepsy and epileptic syndromes, not intractable, without status epilepticus (05/12/24) Pneumonia, unspecified organism (05/12/24) Melena (05/12/24) Acute kidney failure, unspecified (05/12/24) Adverse effect of unspecified drugs, medicaments and biological substances, initial encounter (05/12/24) Subjective Subjective Patient in bed, would not wake up and purposefully interact on my evaluations however with daughter in room patient would wake up and answer some of her questions but would not purposefully interact with my exam. Patient's heart rate remained low throughout the morning especially when he would sleep and would be high 20s to 40s, discussed with patient's daughter and clarified the goals of care with her: goals are comfort and quality of life so we will not pursue cardiology consultation for pacemaker evaluation at this time and she was agreeable that given these goals patient will be taken off of telemetry and cessation of lab draws and continuing medications on for comfort while awaiting hospice consultation. She is to have meeting with hospice tomorrow at 4 PM as this was the earliest meeting time available. Will primarily focus on keeping patient comfortable in the meantime Objective Data Objective Data Vital Signs: Vital Signs Temp Pulse Resp BP Pulse Ox O2 Del Method O2 Flow Rate 97 F L 47 L 18 151/77 H 98 Room Air 3 05/14/24 09:30 05/14/24 09:30 05/14/24 09:30 05/14/24 09:30 05/14/24 09:30 05/14/24 14:00 05/14/24 07:45 Oxygen Flow Rate (L/min) 3 Oxygen Delivery Method Room Air Weight: 75.9 kg Body Mass Index (BMI) 24.7 Intake & Output: Intake and Output for Last 24 Hours 05/12/24 05/13/24 05/14/24 23:59 23:59 23:59 Intake Total 1247 / 1247 1986. 210 / 210 Output Total 80 / 80 Balance 1247 / 1167 1906.76 / 1906. 210 / 210 Medical Nutrition Assessment Dietitian: Malnutrition Criteria Met Start: 05/13/24 15:31 Freq: Status: Active Protocol: Document 05/13/24 15:31 RMA (Rec: 05/13/24 15:31 RMA [id number]) Nutrition Malnutrition Evidence of Malnutrition Exists Yes Malnutrition (severe): Chronic Evidenced By Suboptimal Energy Intake ( Severe),Weight Loss (Severe) Clinical Problem Chronic Disease or Condition Related Malnutrition Etiology severe protein-calorie malnutrition in the context of chronic disease and debility related to inadequate oral/ energy intake Signs/Symptoms as evidenced by ~15% unintentional weight loss x past 3-6 months, PO meeting less than 50% estimated nutrition needs x 3 months, currently NPO Status Active Problem Recommendation Dietitian Recommendations/Changes Recommend DIRECTOR PRESALES swallow evaluation as needed prior to advancing PO diet, suspect need for consistency/texture adjustment. Advance diet as tolerated to liberalized regular with consistency/texture as per DIRECTOR PRESALES . Offer PO ensure---ensure clear vs. ensure plus HP depending on diet advancement from NPO. May need to consider TF support to prevent further weight loss. Lab / Micro Data 05/14/24 06:36 05/14/24 06:36 Labs: Laboratory Results - last 24 hr 05/14/24 06:36: WBC 4.2 L, RBC 2.82 L, Hgb 8.8 L, Hct 27.8 L, MCV 98.6 H, MCH 31.2, MCHC 31.7 L, RDW Std Deviation 64.8 H, RDW Coeff of Sophie 17.8 H, Plt Count 92 L, MPV 10.2, Immature Gran % (Auto) 0.200, Neut % (Auto) 63.5, Lymph % (Auto) 26.2, Potter % (Auto) 7.5, Eos % (Auto) 2.1, Baso % (Auto) 0.5, Absolute Neuts (auto) 2.7, Absolute Lymphs (auto) 1.11, Nucleated RBC % 0, Sodium 147 H, Potassium 3.8, Chloride 118 H, Carbon Dioxide 26.0, Anion Gap 3 L, BUN 24 H, Creatinine 1.45 H, Estim Creat Clear Calc 41.31, Est GFR (MDRD) Af Amer 60, Est GFR (MDRD) Non-Af 50 L, BUN/Creatinine Ratio 16.6, Glucose 81, Calcium 8.3 L 05/14/24 12:02: POC Glucose 84 Micro: Microbiology 05/12/24 22:51 Urine Catheter - Catheter Legionella Antigen - Final 05/12/24 22:51 Urine Catheter - Catheter Streptococcus pneumoniae Antigen (M - Final 05/12/24 18:55 Stool Stool Occult Blood (HESHAM) - Final Occult Blood Positive Rhythm Strip Rhythm Strip: A-fib Rate: 56 Ectopy: None Physical Exam Narrative General: Patient wakes up but would not answer orientation questions HEENT: Normocephalic Eyes: Anicteric Neck: Supple Respiratory: Somewhat diminished bilaterally Cardiovascular: Bradycardic GI: Soft, nontender, nondistended Musculoskeletal: Moving all extremities Neuro: No overt focal neurological deficits but patient not participating in exam Skin: No rashes appreciated Psych: Not participating in exam Assessment & Plan Assessment/Plan (1) Melena: (2) Adverse drug reaction: QUALIFIERS: Encounter type: initial encounter Qualified Code(s): T50.905A - Adverse effect of unspecified drugs, medicaments and biological substances, initial encounter (3) Left lower lobe pneumonia: QUALIFIERS: Pneumonia type: due to unspecified organism Qualified Code(s): J18.9 - Pneumonia, unspecified organism (4) AUGUSTIN (acute kidney injury): PLAN: Plan # Upper GI bleed secondary to gastric ulcer -Presented with melena and Hemoccult positive stools and placed on Protonix drip -Hemoglobin did initially downtrend but did not meet threshold for transfusion -Upper endoscopy 05/13 showed gastric ulcer though at the time was not bleeding -Will change Protonix drip to twice daily -Also start Carafate -Holding aspirin -05/14: Hemoglobin stable, still on PPI and sucralfate as these will likely help with gastric discomfort, will not check morning labs given goals of care # Altered mental status -Patient had shaking movements and there is query of seizures the patient was given Keppra -EEG shows encephalopathy -Neurology evaluated and doubt seizure, it is thought this was more convulsive syncope and recommended discontinuing Keppra -Keppra DC'd -Treat underlying illnesses -05/14: Patient would not wake up and purposefully interact with my exam, ABG had been ordered but was unable to be obtained however patient woke up and was able to answer some questions for his daughter. Given goals of care medication added for agitation or anxiety as well as pain, hospice meeting tomorrow at 4 # suspect aspiration pneumonia - there was concern for aspiration during patient's convulsive event and CT with left lower lobe consolidation and patient with cough -Continue Zosyn at this time -05/14: Breathing does seem to be better today, continue supportive care # Acute kidney injury -Patient had creatinine of 1.76 on admission which was up from 0.98 on last admission -Lasix held and patient given IV fluid with creatinine to 1.54 -Repeat in the a.m. -Continue to hold Lasix -05/14: Had continued to improve, supportive care, will not check a.m. labs # Dementia -taken off of donepezil given bradycardia -of note patient overall with poor prognosis, daughter discussed hospice consult, hospice consult placed. -05/14: Awaiting hospice consult Chronic medical problems: # Parkinson's disease - Stable with patient currently on no anti-Parkinson's agent at this time. #History of CAD; s/p RCA stent 2020 -hold home medications given goals of care #Essential hypertension - Hold scheduled antihypertensives. #DVT ppx: SCDs Mary Carmen Gardner MD Time spent in the patient's overall evaluation,decision-making process, review of diagnostic data, adjustment of management, discussion with other providers, nursing nursing and ancillary staff involved in patient's care documentation, 51 minutes Charges/Coding Visit Charges Inpatient E&M: 81594 Subs Hosp L3
--- NOTE | 2024-05-14 19:09 | PN.GI_ITS ---
Subjective Subjective Patient underwent endoscopy yesterday for acute GI bleed Objective Data Objective Data Vital Signs: Vital Signs Temp Pulse Resp BP Pulse Ox O2 Del Method O2 Flow Rate 97 F L 110 H 18 108/95 H 98 Room Air 3 05/14/24 09:30 05/14/24 09:30 05/14/24 09:30 05/14/24 09:30 05/14/24 09:30 05/14/24 14:00 05/14/24 07:45 Oxygen Flow Rate (L/min) 3 Oxygen Delivery Method Room Air Weight: 167 lb 5.294 oz Body Mass Index (BMI) 24.7 Intake & Output: Intake and Output for Last 24 Hours 05/12/24 05/13/24 05/14/24 23:59 23:59 23:59 Intake Total 1247 / 1247 1986.76 / 76 260 / 260 Output Total 80 / 80 Balance 1247 / 1167 190.76 / 190.76 260 / 260 Medical Nutrition Assessment Dietitian: Malnutrition Criteria Met Start: 05/13/24 15:31 Freq: Status: Active Protocol: Document 05/13/24 15:31 RMA (Rec: 05/13/24 15:31 RMA [id number]) Nutrition Malnutrition Evidence of Malnutrition Exists Yes Malnutrition (severe): Chronic Evidenced By Suboptimal Energy Intake ( Severe),Weight Loss (Severe) Clinical Problem Chronic Disease or Condition Related Malnutrition Etiology severe protein-calorie malnutrition in the context of chronic disease and debility related to inadequate oral/ energy intake Signs/Symptoms as evidenced by ~15% unintentional weight loss x past 3-6 months, PO meeting less than 50% estimated nutrition needs x 3 months, currently NPO Status Active Problem Recommendation Dietitian Recommendations/Changes Recommend [employer] swallow evaluation as needed prior to advancing PO diet, suspect need for consistency/texture adjustment. Advance diet as tolerated to liberalized regular with consistency/texture as per [employer] . Offer PO ensure---ensure clear vs. ensure plus HP depending on diet advancement from NPO. May need to consider TF support to prevent further weight loss. Lab / Micro Data 05/14/24 06:36 05/14/24 06:36 Labs: Laboratory Results - last 24 hr 05/14/24 06:36: WBC 4.2 L, RBC 2.82 L, Hgb 8.8 L, Hct 27.8 L, MCV 98.6 H, MCH 31.2, MCHC 31.7 L, RDW Std Deviation 64.8 H, RDW Coeff of Sophie 17.8 H, Plt Count 92 L, MPV 10.2, Immature Gran % (Auto) 0.200, Neut % (Auto) 63.5, Lymph % (Auto) 26.2, Perkins % (Auto) 7.5, Eos % (Auto) 2.1, Baso % (Auto) 0.5, Absolute Neuts (auto) 2.7, Absolute Lymphs (auto) 1.11, Nucleated RBC % 0, Sodium 147 H, Potassium 3.8, Chloride 118 H, Carbon Dioxide 26.0, Anion Gap 3 L, BUN 24 H, C reatinine 1.45 H, Estim Creat Clear Calc 41.31, Est GFR (MDRD) Af Amer 60, Est GFR (MDRD) Non-Af 50 L, BUN/Creatinine Ratio 16.6, Glucose 81, Calcium 8.3 L 05/14/24 12:02: POC Glucose 84 Micro: Microbiology 05/12/24 22:51 Urine Catheter - Catheter Legionella Antigen - Final 05/12/24 22:51 Urine Catheter - Catheter Streptococcus pneumoniae Antigen (M - Final 05/12/24 18:55 Stool Stool Occult Blood (HESHAM) - Final Occult Blood Positive Rhythm Strip Rhythm Strip: A-fib Rate: 56 Ectopy: None Physical Exam Narrative General: Patient wakes up HEENT: Normocephalic Eyes: Anicteric Neck: Supple Respiratory: Somewhat diminished bilaterally Cardiovascular: Bradycardic GI: Soft, nontender, nondistended Musculoskeletal: Moving all extremities Neuro: No overt focal neurological deficits but patient not participating in exam Skin: No rashes appreciated Psych: Not participating in exam Assessment & Plan Assessment/Plan (1) Melena: (2) Adverse drug reaction: QUALIFIERS: Encounter type: initial encounter Qualified Code(s): T50.905A - Adverse effect of unspecified drugs, medicaments and biological substances, initial encounter (3) Tonic-clonic seizure: (4) Left lower lobe pneumonia: QUALIFIERS: Pneumonia type: due to unspecified organism Qualified Code(s): J18.9 - Pneumonia, unspecified organism (5) AUGUSTIN (acute kidney injury): PLAN: Plan UGIB due to suspected PUD; with Melena and Hemoccult positive stools noted noted on admission in the setting of known KHAI and GERD. Patient is status post upper endoscopy. Findings: There were esophageal mucosal changes suspicious for short-segment Elaine's esophagus present in the lower third of the esophagus. The maximum longitudinal extent of these mucosal changes was 4 cm in length. One non-bleeding cratered gastric ulcer with no stigmata of bleeding was found in the gastric body. The lesion was 6 mm in largest dimension. Biopsies were taken with a cold forceps for histology. Verification of patient identification for the specimen was done. Estimated blood loss was minimal. Biopsies were taken with a cold forceps for Helicobacter pylori testing. Verification of patient identification for the specimen was done. Estimated blood loss was minimal. No gross lesions were noted in the second portion of the duodenum. 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 - Non-bleeding gastric ulcer with no stigmata of bleeding. Biopsied. - No gross lesions in the second portion of the duodenum. Recommendations: Continue acid suppression and I would hold aspirin therapy for at least 2 weeks. Charges/Coding Visit Charges Inpatient E&M: 41874 Subs Hosp L3
[2024-05-14 22:13] VITALS: BP 167/88; PULSE 63; RESP 18; TEMP 35.8; O2SAT 98
[2024-05-14] MEDS: Sucralfate 1 GM Tablet PO (22:15)
[2024-05-14] MEDS: MELATONIN 10 MG TABLET PO (22:15)
[2024-05-14] MEDS: guaiFENesin 10 ML UDC (200MG/10ML) PO (22:24)
[2024-05-15 02:18] VITALS: PULSE 62
[2024-05-15] MEDS: Menthol/Lanolin/Calamine/Znox 113 GM Tube 1 APPLIC TOPICAL ×3 (05:12→20:26)
[2024-05-15] MEDS: Piperacil/Tazobactam 3.375 GM in 0.9% Normal Saline (50mL MB+) 50 ML IV ×3 (05:14→21:02)
[2024-05-15 09:30] VITALS: BP 153/75; PULSE 54; RESP 16; TEMP 36.4; O2SAT 95
[2024-05-15] MEDS: Pantoprazole Sodium 40 MG in 0.9% Normal Saline (100mL MB+) 100 ML 330 MG IV ×2 (09:33→20:26)
[2024-05-15 11:18] VITALS: BP 167/88; PULSE 63; RESP 18; TEMP 35.8; O2SAT 98
--- NOTE | 2024-05-15 14:12 | PCM.PN.HOSP ---
Reason for Visit Reason for Visit: Diagnoses Other generalized epilepsy and epileptic syndromes, not intractable, without status epilepticus (05/12/24) Pneumonia, unspecified organism (05/12/24) Melena (05/12/24) Acute kidney failure, unspecified (05/12/24) Adverse effect of unspecified drugs, medicaments and biological substances, initial encounter (05/12/24) Subjective Subjective Patient resting comfortably on exam, moved some when stimulated but not purposefully interactive Objective Data Objective Data Vital Signs: Vital Signs Temp Pulse Resp BP Pulse Ox O2 Del Method O2 Flow Rate 96.5 F L 63 18 167/88 H 98 Room Air 3 05/15/24 11:18 05/15/24 11:18 05/15/24 11:18 05/15/24 11:18 05/15/24 11:18 05/15/24 13:53 05/14/24 07:45 Oxygen Flow Rate (L/min) 3 Oxygen Delivery Method Room Air Weight: 75.9 kg Body Mass Index (BMI) 24.7 Intake & Output: Intake and Output for Last 24 Hours 05/13/24 05/14/24 05/15/24 23:59 23:59 23:59 Intake Total 1987.76 / 1986.76 430 / 430 210 / 210 Output Total 80 / 80 200 / 200 Balance 1907.76 / 1907.76 430 / 430 10 10 Medical Nutrition Assessment Dietitian: Malnutrition Criteria Met Start: 05/13/24 15:31 Freq: Status: Active Protocol: Document 05/13/24 15:31 RMA (Rec: 05/13/24 15:31 RMA [id number]) Nutrition Malnutrition Evidence of Malnutrition Exists Yes Malnutrition (severe): Chronic Evidenced By Suboptimal Energy Intake ( Severe),Weight Loss (Severe) Clinical Problem Chronic Disease or Condition Related Malnutrition Etiology severe protein-calorie malnutrition in the context of chronic disease and debility related to inadequate oral/ energy intake Signs/Symptoms as evidenced by ~15% unintentional weight loss x past 3-6 months, PO meeting less than 50% estimated nutrition needs x 3 months, currently NPO Status Active Problem Recommendation Dietitian Recommendations/Changes Recommend [employer]INEER swallow evaluation as needed prior to advancing PO diet, suspect need for consistency/texture adjustment. Advance diet as tolerated to liberalized regular with consistency/texture as per FL[employer] OPERATIONS ENGINEER . Offer PO ensure---ensure clear vs. ensure plus HP depending on diet advancement from NPO. May need to consider TF support to prevent further weight loss. Lab / Micro Data 05/14/24 06:36 05/14/24 06:36 Micro: Microbiology 05/12/24 22:51 Urine Catheter - Catheter Legionella Antigen - Final 05/12/24 22:51 Urine Catheter - Catheter Streptococcus pneumoniae Antigen (M - Final 05/12/24 18:55 Stool Stool Occult Blood (HESHAM) - Final Occult Blood Positive Rhythm Strip Rhythm Strip: A-fib Rate: 56 Ectopy: None Physical Exam Narrative General: Patient moved somewhat when stimulated but did not wake up and be interactive HEENT: Normocephalic Eyes: Anicteric Neck: Supple Respiratory: Somewhat diminished bilaterally Cardiovascular: Bradycardic GI: Soft, nontender, nondistended Musculoskeletal: Moving all extremities Neuro: No overt focal neurological deficits but patient not participating in exam Skin: No rashes appreciated Psych: Not participating in exam Assessment & Plan Assessment/Plan (1) Melena: (2) Adverse drug reaction: QUALIFIERS: Encounter type: initial encounter Qualified Code(s): T50.905A - Adverse effect of unspecified drugs, medicaments and biological substances, initial encounter (3) Left lower lobe pneumonia: QUALIFIERS: Pneumonia type: due to unspecified organism Qualified Code(s): J18.9 - Pneumonia, unspecified organism (4) AUGUSTIN (acute kidney injury): PLAN: Plan # Upper GI bleed secondary to gastric ulcer -Presented with melena and Hemoccult positive stools and placed on Protonix drip -Hemoglobin did initially downtrend but did not meet threshold for transfusion -Upper endoscopy 05/13 showed gastric ulcer though at the time was not bleeding -Will change Protonix drip to twice daily -Also start Carafate -Holding aspirin -05/14: Hemoglobin stable, still on PPI and sucralfate as these will likely help with gastric discomfort, will not check morning labs given goals of care -05/15: Awaiting hospice evaluation, no overt bleeding, has been continued on PPI for comfort # Altered mental status -Patient had shaking movements and there is query of seizures the patient was given Keppra -EEG shows encephalopathy -Neurology evaluated and doubt seizure, it is thought this was more convulsive syncope and recommended discontinuing Keppra -Keppra DC'd -Treat underlying illnesses -05/14: Patient would not wake up and purposefully interact with my exam, ABG had been ordered but was unable to be obtained however patient woke up and was able to answer some questions for his daughter. Given goals of care medication added for agitation or anxiety as well as pain, hospice meeting tomorrow at -05/15: Would not wake up and purposefully interact again today, awaiting hospice evaluation today # suspect aspiration pneumonia - there was concern for aspiration during patient's convulsive event and CT with left lower lobe consolidation and patient with cough -Continue Zosyn at this time -05/14: Breathing does seem to be better today, continue supportive care -05/15: Lungs somewhat diminished but overall clear # Acute kidney injury -Patient had creatinine of 1.76 on admission which was up from 0.98 on last admission -Lasix held and patient given IV fluid with creatinine to 1.54 -Repeat in the a.m. -Continue to hold Lasix -05/14: Had continued to improve, supportive care, will not check a.m. labs -05/15: Not checking daily labs # Dementia -taken off of donepezil given bradycardia -of note patient overall with poor prognosis, daughter discussed hospice consult, hospice consult placed. -05/14: Awaiting hospice consult -05/15: Hospice meeting today Chronic medical problems: # Parkinson's disease - Stable with patient currently on no anti-Parkinson's agent at this time. #History of CAD; s/p RCA stent 2020 -hold home medications given goals of care #Essential hypertension - Hold scheduled antihypertensives. #DVT ppx: SCDs Mary Carmen Gardner MD Charges/Coding Visit Charges Inpatient E&M: 30721 [facility] Hosp L1
[2024-05-15 17:34] VITALS: BP 167/88; PULSE 63; RESP 18; TEMP 36.4; O2SAT 98
[2024-05-15] MEDS: Sucralfate 1 GM Tablet PO (17:57)
[2024-05-15 20:24] VITALS: BP 136/62; PULSE 52; RESP 18; TEMP 35.4; O2SAT 98
[2024-05-16 03:31] VITALS: BP 156/90; PULSE 49; RESP 18; TEMP 35.5; O2SAT 98
[2024-05-16] MEDS: Menthol/Lanolin/Calamine/Znox 113 GM Tube 1 APPLIC TOPICAL (05:53)
[2024-05-16 07:20] VITALS: O2SAT 97
[2024-05-16] MEDS: Pantoprazole Sodium 40 MG in 0.9% Normal Saline (100mL MB+) 100 ML 330 MG IV (08:38)
[2024-05-16] MEDS: levoFLOXacin IV 750 MG/150 ML BAG 100 MG IV (09:18)
--- NOTE | 2024-05-16 09:26 | CASEMGMT ---
Per Patricia at Hospice, papers were signed and patient's daughter wanted patient evaluated for the inpatient unit. SW called patient's daughter Libia to confirm this information. Libia said she does want patient to go to the inpatient hospice unit and she is okay with SW proceeding with this. DEVANTE sent an email to Patricia at [facility] letting her know. Jo Ann COTTON
[2024-05-16 10:00] VITALS: PULSE 60; RESP 18; TEMP 35.4; O2SAT 100
--- NOTE | 2024-05-16 11:03 | NURSING ---
Unable to obtain blood pressure from pt d/t resistance. Pt resistive to care, will try again at a later time. HR, SpO2, RR, and temperature obtained
[2024-05-16] MEDS: LORazepam 2 MG/ML Bottle 0.5 MG SL (13:44)
--- NOTE | 2024-05-16 13:53 | NURSING ---
SL ativan given per hospice nurse's recommendation. Pt agitated when spoken to and resistive to care. IVs removed and report given to transport.
--- NOTE | 2024-05-16 13:53 | PCM.DC.SUM ---
Providers Date of Admission: 05/12/24 Date of Discharge: 05/16/24 Primary Care Physician: Dr. Lynnette Erazo MD Consultations 05/12/24 22:21 [facility] [Consult: Tele-Neurology] Routine Consulting Provider: [facility] Reason for Consult: [facility] Seizure with postictal confusion. EMERGENT Consult: No MD Notified: Yes Date Notified: 05/13/24 Time Notified: 05:00 Method of Notification: Answering Service Method of Consult:: Telemedicine Nursing Unit Staff Notify [facility] of Tele-Neurology Consult: Yes 05/12/24 23:13 Consult: Gastroenterology Routine Consulting Provider: [facility] Reason for Consult: UGIB with Melena. EMERGENT Consult: No Notified: Yes Date Notified: 05/13/24 Time Notified: 06:10 Method of Notification: Text Reason For Visit: UGIB WITH MELENA, TONIC CLONIC SEIZURE, LLL Diagnosis Discharge Diagnosis (1) Melena: Status: Acute Code(s): K92.1 - Melena (2) Left lower lobe pneumonia: Status: Acute Code(s): J18.9 - Pneumonia, unspecified organism Qualifiers: Pneumonia type: due to unspecified organism Qualified Code(s): J18.9 - Pneumonia, unspecified organism (3) AUGUSTIN (acute kidney injury): Status: Acute Code(s): N17.9 - Acute kidney failure, unspecified Plan # Upper GI bleed secondary to gastric ulcer # Altered mental status-metabolic encephalopathy secondary to aspiration pneumonia # Aspiration pneumonia # Acute kidney injury?resolved # Parkinson's disease #History of CAD; s/p RCA stent 2020 #Essential hypertension Medications at Discharge Home Medications aspirin 81 mg tablet,delayed release (Bertin Low Dose Aspirin) 81 mg PO DAILY HEART HEALTH 08/16/23 atorvastatin 20 mg tablet 20 mg PO QHS CHOLESTEROL #90 tabs 08/16/23 cyanocobalamin (vitamin B-12) 1,000 mcg tablet 500 mcg PO DAILY SUPPLEMENT 02/06/24 albuterol sulfate 2.5 mg/3 mL (0.083 %) solution for nebulization 2.5 mg (3 mL) inhalation Q6H PRN SHORTNESS OF BREATH/WHEEZING #0 mL 02/14/24 food supplemt, lactose-reduced 0.08 gram-1.5 kcal/mL oral liquid (Ensure Plus High Protein) 120 ml PO 4X/DAY #0 mL 02/14/24 omeprazole 20 mg capsule,delayed release 20 mg PO DAILY 02/16/24 ferrous sulfate 325 mg (65 mg iron) tablet 325 mg PO DAILY #90 tabs 02/27/24 bisacodyl 10 mg rectal suppository 10 mg AK DAILY PRN constipation 04/02/24 dextrose 40 % oral gel (Gluco Burst) 1 ea PO PRN PRN hypoglycemia 04/02/24 glucagon 1 mg/0.2 mL subcutaneous auto-injector 1 mg subcut PRN PRN hypoglycemia 04/02/24 magnesium hydroxide 400 mg/5 mL oral suspension 30 ml PO DAILY PRN constipation 04/02/24 melatonin 1 mg chewable tablet (Children's Sleep (melatonin)) 1 mg PO QHS INSOMNIA 04/02/24 sennosides 8.6 mg-docusate sodium 50 mg capsule (Senna Plus) 2 tab-cap PO DAILY PRN constipation 04/02/24 menthol 0.44 %-zinc oxide 20.6 % topical ointment (Calmoseptine) 1 applic topical TID #0 grams 04/14/24 ascorbate calcium (vitamin C) 500 mg tablet 500 mg PO DAILY 04/24/24 cholecalciferol (vitamin D3) 125 mcg (5,000 unit) capsule 5,000 unit PO DAILY 04/24/24 multivitamin 1 tab PO DAILY 04/24/24 acetaminophen 325 mg tablet 650 mg (2 x 325 mg) PO Q6H PRN PRN Pain 1-10 Or Fever>100.7 #0 tabs 04/27/24 furosemide 40 mg tablet (Lasix) 40 mg PO DAILY #60 tabs 04/27/24 [id number] oral liquid ml PO DAILY PRN 05/12/24 Hospital Course Procedures - (EGD) Summary of Care Provided Minutes Spent on Discharge: 25 Hospital Course: 78-year-old male history of hypertension, diabetes, GERD, COPD, paroxysmal atrial fibrillation, CAD, Parkinson's disease presented to [facility] ED 05/12/2024 due to dark tarry stools and seizure-like episode with additional concern for an aspiration event. Admitted with concern for GI bleed, started on IV Protonix and gastroenterology consulted. Additionally there was concern for seizure activity so he was given Keppra, EEG ordered, teleneurology consulted. And also CT obtained which showed left lower lobe consolidation he was started on Zosyn. For seizure-like activity EEG just showed changes consistent with a metabolic encephalopathy and neurology thought he possibly had convulsive syncope and did not think he had seizures and advised to stop Keppra. He also had EGD which showed ulcer with no active stigmata of bleeding. Patient's respiratory status also improved. Given patient's multiple comorbidities the possibility of hospice was discussed and patient's daughter/POA was agreeable to hospice meeting. Also discussed goals of care while awaiting hospice meeting and decision was to focus on comfort and quality of life, discussed taking patient off of telemetry and no longer drawing blood and only giving medications that may help from a comfort standpoint and she was in agreement. Ultimately decision was for patient to go hospice. Discharged to hospice. Physical Exam Narrative General: Patient woke up to stimulation but not particularly interested in talking HEENT: Normocephalic Eyes: Anicteric Neck: Supple Respiratory: Somewhat diminished bilaterally Cardiovascular: Mildly bradycardic GI: Soft, nontender, nondistended Musculoskeletal: Moving all extremities Neuro: No overt focal neurological deficits but patient not participating in exam Skin: No rashes appreciated Psych: Not participating in exam Medical Records Data Medical Nutrition Assessment Dietitian: Malnutrition Criteria Met Start: 05/13/24 15:31 Freq: Status: Active Protocol: Document 05/13/24 15:31 RMA (Rec: 05/13/24 15:31 RMA [id number]) Nutrition Malnutrition Evidence of Malnutrition Exists Yes Malnutrition (severe): Chronic Evidenced By Suboptimal Energy Intake ( Severe),Weight Loss (Severe) Clinical Problem Chronic Disease or Condition Related Malnutrition Etiology severe protein-calorie malnutrition in the context of chronic disease and debility related to inadequate oral/ energy intake Signs/Symptoms as evidenced by ~15% unintentional weight loss x past 3-6 months, PO meeting less than 50% estimated nutrition needs x 3 months, currently NPO Status Active Problem Recommendation Dietitian Recommendations/Changes Recommend [employer] swallow evaluation as needed prior to advancing PO diet, suspect need for consistency/texture adjustment. Advance diet as tolerated to liberalized regular with consistency/texture as per [employer] . Offer PO ensure---ensure clear vs. ensure plus HP depending on diet advancement from NPO. May need to consider TF support to prevent further weight loss. Weight / BMI Weight Weight: 75.9 kg Body Mass Index (BMI) 24.7 ABG / Lab / Microbiology Data 05/14/24 06:36 05/14/24 06:36 Microbiology: Microbiology 05/12/24 22:51 Urine Catheter - Catheter Legionella Antigen - Final 05/12/24 22:51 Urine Catheter - Catheter Streptococcus pneumoniae Antigen (M - Final 05/12/24 18:55 Stool Stool Occult Blood (HESHAM) - Final Occult Blood Positive D/C Instructions Discharge Diet: No restrictions Discharge Activity: Return to Normal Activity Meaningful Use Info Meaningful Use Meaningful Use Diagnoses (Choose all that apply): None applicable Ischemic Stroke Statin Dosing Therapy Reference: STATIN DOSE THERAPY REFERENCE: * Patients > 75 years receive moderate or high dose statin therapy. * Patients 75 years or YOUNGER should receive HIGH intensity statin dose unless contraindicated. You will be required to document reason for non-treatment if statin daily dose does not meet guidelines. HIGH DOSE STATIN THERAPY DAILY Atorvastatin > than or = to 40 mg Rosuvastatin > than or = to 20 mg Amlodipine + Atorvastatin > than or = to 2.5/40 mg Ezetimibe + Simvastatin 10/80 mg Simvastatin 80mg Discharge Plan Admission Admit Date/Time: 05/12/24 20:51 Primary Reason for Your Visit: Seizure like activity Attending Provider: Mary Carmen Gardner Primary Care Provider: Lynnette Erazo Consulting Providers: Krystal Jett; Kristen England; Colleen Astorga; Osvaldo Garcia; Balwinder Barajas; Mckayla Perdomo; CRISTIANA PRINCE; Ana Maria Malave; Alix Roman; Jamir Burger; Janina Lundberg; Vinay Carlson; Zayra Piedra; Laura Riggins; Chaz Reilly; Bri Mahmood; Kam Proctor; Sawyer Lares; Morris Solorzano; Nathaly Gomez; Heidi Orellana; Elvin Menchaca; Adrian Verduzco; Calixto Deleon; Silvana Altamirano; Teodora Mendenhall; Marcelo Padilla Discharge Orders/Prescriptions Prescriptions: No Action atorvastatin 20 mg tablet 20 mg PO QHS Qty: 90 3RF ferrous sulfate 325 mg (65 mg iron) tablet 325 mg PO DAILY Qty: 90 3RF aspirin [Bertin Low Dose Aspirin] 81 mg tablet,delayed release (DR/EC) 81 mg PO DAILY cyanocobalamin (vitamin B-12) 1,000 mcg tablet 500 mcg PO DAILY albuterol sulfate 2.5 mg /3 mL (0.083 %) Solution For Nebulization 2.5 mg inhalation Q6H PRN (Reason: SHORTNESS OF BREATH/WHEEZING ) Qty: 0 0RF Ensure Plus High Protein 0.08 gram-1.5 kcal/mL Liquid 120 ml PO 4X/DAY Qty: 0 0RF omeprazole 20 mg capsule,delayed release(DR/EC) 20 mg PO DAILY melatonin [Children's Sleep (melatonin)] 1 mg tablet,chewable 1 mg PO QHS Senna Plus 8.6-50 mg capsule 2 tab-cap PO DAILY PRN (Reason: constipation) bisacodyl 10 mg suppository 10 mg AK DAILY PRN (Reason: constipation) dextrose [Gluco Burst] 40 % gel 1 ea PO PRN PRN (Reason: hypoglycemia) Rx Instructions: until symptoms of low blood sugar are controlled glucagon 1 mg/0.2 mL auto-injector 1 mg subcut PRN PRN (Reason: hypoglycemia) magnesium hydroxide 400 mg/5 mL suspension 30 ml PO DAILY PRN (Reason: constipation) menthol-zinc oxide [Calmoseptine] 0.44-20.6 % Ointment 1 applic topical TID Qty: 0 0RF Protocol: *Topical Application Instructions APPLICATION INSTRUCTIONS: apply to buttocks bilat multivitamin Tablet 1 tab PO DAILY ascorbate calcium (vitamin C) 500 mg tablet 500 mg PO DAILY cholecalciferol (vitamin D3) 125 mcg (5,000 unit) capsule 5,000 unit PO DAILY acetaminophen 325 mg Tablet 650 mg PO Q6H PRN PRN (Reason: Pain 1-10 Or Fever>100.7) Qty: 0 0RF furosemide [Lasix] 40 mg tablet 40 mg PO DAILY Qty: 60 0RF [id number] Liquid PO DAILY PRN Referrals / Follow Up: Lynnette Erazo MD [Primary Care Provider] - Disposition Disposition (needs filled in before D/C Order can be placed): Hospice in Medical Facility Charges/Coding Visit Charges Inpatient E&M: 52351 Disch Hosp
== END 2024-05-16 13:53 | disposition hospice, inpatient (51) | DRG 377 ==
LOC: ED 20:17 → PCU 05-13 00:41
PROVIDERS: Internal Medicine Gastroenterology; Admitting Provider Internal Medicine; Emergency Provider Emergency Medicine; PCP Internal Medicine; Visit Provider Internal Medicine
PROC: 0DJ08ZZ Inspection of Upper Intestinal Tract, Via Natural or Artificial Opening Endoscopic (ICD-10-PCS; CPT 43235; principal; 2024-05-13 14:40)
DX: K29.51 Unspecified chronic gastritis with bleeding (principal); J69.0 Pneumonitis due to inhalation of food and vomit; G93.41 Metabolic encephalopathy; E43 Unspecified severe protein-calorie malnutrition; N17.9 Acute kidney failure, unspecified; F02.80 Dementia in other diseases classified elsewhere, unspecified severity, without behavioral disturbance, psychotic disturbance, mood disturbance, and anxiety; G20.A1 Parkinson's disease without dyskinesia, without mention of fluctuations; J44.9 Chronic obstructive pulmonary disease, unspecified; E11.9 Type 2 diabetes mellitus without complications; I10 Essential (primary) hypertension; K25.9 Gastric ulcer, unspecified as acute or chronic, without hemorrhage or perforation; I48.91 Unspecified atrial fibrillation; E78.5 Hyperlipidemia, unspecified; I25.10 Atherosclerotic heart disease of native coronary artery without angina pectoris; T39.015A Adverse effect of aspirin, initial encounter; Z66 Do not resuscitate; Z95.5 Presence of coronary angioplasty implant and graft; Z68.24 Body mass index [BMI] 24.0-24.9, adult; Z79.84 Long term (current) use of oral hypoglycemic drugs; Z79.899 Other long term (current) drug therapy; Z87.891 Personal history of nicotine dependence
CPT/HCPCS: 36415; 70450; 71045; 74176; 80048; 80053; 81001; 82274; 82962; 83036; 83605; 83735; 83880; 84100; 84443; 84484; 85025; 85610; 85730; 86850; 86900; 86901; 87449; 88305; 88342; 92610; 93005; 95819; 99285; J7030; J7040; P9612; A4216; J0295; J2405; J3490